=== PATIENT | female | born 1970 | race American Indian/Alaskan Native ===

== ENCOUNTER 2017-10-27 03:14 | Emergency (ER) | payer OTHER ==
[~2017-10-27] VITALS: Ht 160 cm; Wt 90.7 kg
--- OUTSIDE RECORDS SUMMARY | ~2017-10-27 | XMS | Encounter Summary ---
Demographics + + + | Address | [address] | | | [place] [address] | + + + | Home Phone | | + + + | Preferred Language | Unknown | + + + | Marital Status | Single | + + + | Shinto Affiliation | Unknown | + + + | Race | Unknown | + + + | Ethnic Group | Unknown | + + + Author + + + | Author | [facility] | | | and [place] | + + + | Organization | [facility] | | | and [place] | + + + | Address | Unknown | + + + | Phone | Unavailable | + + + Support + + +---------+ + | Name | Relationship | Address | Phone | + + +---------+ + | Leisa Forte | ECON | Unknown | | + + +---------+ + | Rebeca Forte | ECON | Unknown | | + + +---------+ + Care Team Providers + +------+ + | Care Package Handler Name | Role | Phone | + +------+ + | Ronel Jacobson PA-C | PCP | | + +------+ + Reason for Visit + + + | Reason | Comments | + + + | Allergies | | + + + | Immunotherapy | | + + + Evaluate & Treat (Urgent) + + + + + + + | Status | Reason | Specialty | Diagnoses / | Referred By | Referred To | | | | | Procedures | Contact | Contact | + + + + + + + | Authorized | Specialty | Otolaryngolog | Diagnoses | Luther, | Henok Luther | | | Services | y | | Henok E, | E, MD [address] | | | Required | | Non-seasonal | [address] | | | | | allergic | [address] | | | | | rhinitis due | [place], | | | | | to pollen | [place], [place] | [place] [address] | | | | | Allergic | [address] | Phone: | | | | | rhinitis due | Phone: | [phone] | | | | | to dust | [phone] | Fax: | | | | | Mild | Fax: | [phone] | | | | | intermittent | [phone] | | | | | | asthma, | | | | | | | uncomplicate | | | | | | | d | | | | | | | Procedures | | | | | | | [place] | | | | | | | IMMUNOTHERAP | | | | | | | Y, ONE | | | | | | | INJECTION | | | | | | | [place] PROFES | | | | | | | SVC,IMMUNOTH | | | | | | | ER,SINGLE/MU | | | | | | | LT AGS | | | + + + + + + + Encounter Details +--------+ + + + + | Date | Type | Department | Care Team | Description | +--------+ + + + + | 09/17/ | Clinical | [facility] [place] | Henok Luther MD | Mild intermittent | | 2018 | Support | [address]ARYNGOLOGY [address] | [address] | asthma, | | | | [address] | [address] [place], | uncomplicated | | | | [place], [place] | [place] [address] | (Primary Dx); | | | | [address] | [phone] | Non-seasonal | | | | [phone] | | allergic rhinitis | | | | | | due to pollen; | | | | | | Allergic rhinitis | | | | | | due to dust | +--------+ + + + + Social History + + + +--------+ + | Tobacco Use | Types | Packs/Day | Years | Date | | | | | Used | | + + + +--------+ + | Current Every Day | Cigarettes | 0.25 | 20 | Quit: 09/23/2012 | | Smoker | | | | | + + + +--------+ + + +---+---+---+ | Smokeless Tobacco: | | | | | Never Used | | | | + +---+---+---+ + + +---------+ + | Alcohol Use | Drinks/We | oz/Week | Comments | | | ek | | | + + +---------+ + | Yes | 1 | 0.6 | 1 a month | | | Standard | | | | | drinks or | | | | | | | | | | equivalen | | | | | t | | | + + +---------+ + + + + | Sex Assigned at | Date Recorded | | | | + + + | Not on file | | + + + as of this encounter Progress Notes Modesta Benitez RN - 09/17/2017 6325 PDTPatient presents with epi-pen & inhaler. No active wheezing or cough associated with asthma today. Denies delayed reaction from previou s allergy injection. No fever or allergy related rash. No recent heavy exposure to allergens . No plans for strenuous exercise immediately before or after injection today.in this encoun ter Plan of Treatment +--------+---------+ + + + | Date | Type | Specialty | Care Team | Description | +--------+---------+ + + + | 05/11/ | Office | Nephrology | Mariana Cortez, | | | 2018 | Visit | | MD [address] | | | | | | [address] [place] | | | | | | [place] [address] | | | | | | [phone] | | | | | | | | +--------+---------+ + + + as of this encounter Visit Diagnoses + + | Diagnosis | + + | Mild intermittent asthma, uncomplicated - Primary | + + | Unspecified asthma | + + | Non-seasonal allergic rhinitis due to pollen | + + | Allergic rhinitis due to dust | + + | Allergic rhinitis due to other allergen | + +"
--- OUTSIDE RECORDS SUMMARY | ~2017-10-27 | XMS | Encounter Summary ---
Demographics + + + | Address | [address] | | | [place] [address] | + + + | Home Phone | | + + + | Preferred Language | Unknown | + + + | Marital Status | Single | + + + | Zoroastrianism Affiliation | Unknown | + + + | Race | Unknown | + + + | Ethnic Group | Unknown | + + + Author + + + | Author | [facility] | | | and [place] | + + + | Organization | [facility] | | | and [place] | [...] Team Providers + +------+ + | Care Mortgage Loan Underwriter Name | Role | Phone | + +------+ + | Rnoel Jacobson PA-C | PCP | | + +------+ + Reason for Referral Evaluate & Treat (Urgent) + + + [...] Services | y | | Henok E, MD | E, MD [address] | | | Required | | Non-seasonal | [address] | | | | | allergic | [address] | | | | | rhinitis due | [place], | | | | | to pollen | [place], [place] | [place] [address] | | | | | Allergic | [address] | Phone: | | | | | rhinitis due | Phone: | [phone] | | | | | to dust | [phone] | Fax: | | | | | Mild | Fax: | [phone] | | | | | intermittent | [phone] | | | | | | asthma, | | | | | | | uncomplicate | | | | | | | d | | | | | | | Procedures | | | | | | | [place] | | | | | | | IMMUNOTHERAP | | | | | | | Y, ONE | | | | | | | INJECTION | | | | | | | [place] PROFES | | | | | | | SVC,IMMUNOTH | | | | | | | ER,SINGLE/MU | | | | | | | LT AGS | | | + + + + + + + Encounter Details +--------+ + + + + | Date | Type | Department | Care Team | Description | +--------+ + + + + | 08/31/ | Orders Only | [facility] [place] | Henok Luther MD | Non-seasonal | | 2017 | | [address]ARYNGOLOGY [address] | [address] | allergic rhinitis | | | | [address] | [address] [place], | due to pollen | | | | [place], [place] | [place] [address] | (Primary Dx); | | | | [address] | [phone] | Allergic rhinitis | | | | [phone] | | due to dust; Mild | [...] + + + as of this encounter Plan of Treatment +--------+---------+ + + + | Date | Type | Specialty | Care Team | Description | +--------+---------+ + + + | 05/11/ | Office | Nephrology | Mariana Cortez, | | | 2018 | Visit | | [address] | | | | | | [address] [place] | | | | | | [place] [address] | | | | | | [phone] | | | | | | | | +--------+---------+ + + + + +--------+ + + | Name | Priori | Associated Diagnoses | Order Schedule | | | ty | | | + +--------+ + + | * [facility] Otolaryngology - AMB | Routin | Non-seasonal | Ordered: 08/31/2017 | | Referral | e | allergic rhinitis | | | | | due to pollen | | | | | Allergic rhinitis | | | | | due to dust Mild | | | | | intermittent asthma, | | | | | uncomplicated | | + +--------+ + + as of this encounter Visit Diagnoses + + | Diagnosis | + + | Non-seasonal allergic rhinitis due to pollen - Primary | + + | Allergic rhinitis due to dust | + + | Allergic rhinitis due to other allergen | + + | Mild intermittent asthma, uncomplicated | + + | Unspecified asthma | + +"
--- OUTSIDE RECORDS SUMMARY | ~2017-10-27 | XMS | Encounter Summary ---
Demographics + + + | Address | [address] | | | [place] [address] | + + + | Home Phone | | + + + | Preferred Language | Unknown | + + + | Marital Status | Single | + + + | Scientology Affiliation | Unknown | + + + | Race | Unknown | + + + | Ethnic Group | Unknown | + + + Author + + + | Author | [facility] | | | and [place] | + + + | Organization | [facility] | | | and [place] | [...] Team Providers + +------+ + | Care Caddy/Caddie Supervisor Name | Role | Phone | [...] | +--------+ + + + + | 08/06/ | Clinical | [facility] | Henok Luther MD | Non-seasonal | | 2017 | Support | [address]ARYNGOLOGY [address] | [address] | allergic rhinitis | | | | [address] | [address] [place], | due to pollen | | | | [place], [place] | [place] [address] | (Primary Dx); | | | | [address] | [phone] | Allergic rhinitis | | | | [phone] | | due to dust mite; | | | | | | Extrinsic asthma | | | | | | [...] + as of this encounter Progress Notes Narda Lay, RN - 08/06/2017 1545 PDTPatient presents with epi-pen. Denies delayed gigi ction from previous allergy injection. No fever or allergy related rash. No recent heavy exp osure to allergens. No plans for strenuous exercise before or after injection today. in this encounter Plan of Treatment +--------+---------+ + + + | Date | Type | Specialty | Care Team | Description | +--------+---------+ + + + | 05/11/ | Office | Nephrology | Mariana Cortez, | | | 2018 | Visit | | MD [address] | | | | | | [address] [place] | | | | | | [place] [address] | | | | | | [phone] | | | | | | | | +--------+---------+ + + + as of this encounter Visit Diagnoses + + | Diagnosis | + + | Non-seasonal allergic rhinitis due to pollen - Primary | + + | Allergic rhinitis due to dust mite | + + | Extrinsic asthma without complication, unspecified asthma severity, unspecified whether | | persistent | + +"
--- OUTSIDE RECORDS SUMMARY | ~2017-10-27 | XMS | Encounter Summary ---
Demographics + + + | Address | [address] | | | [place] [address] | + + + | Home Phone | | + + + | Preferred Language | Unknown | + + + | Marital Status | Single | + + + | Advent Affiliation | Unknown | + + + | Race | Unknown | + + + | Ethnic Group | Unknown | + + + Author + + + | Author | [facility] | | | and [place] | + + + | Organization | [facility] | | | and [place] | [...] Providers + +------+ + | Care Senior Visual Designer Name | Role | Phone | + [...] to pollen | [place], [place] | [place] [address] | | | | | Allergic | [address] | Phone: | | | | | rhinitis due | Phone: | [phone] | | | | | to dust | [phone] | Fax: | | | | | Mild | Fax: | [phone] | | | | | intermittent | [phone] | | | | | | asthma, | | | | | | | uncomplicate | | | | | | | d | | | | | | | Procedures | | | | | | | [place] | | | | | | | IMMUNOTHERAP | | | | | | | Y, ONE | | | | | | | INJECTION | | | | | | | [place] PROFES | | | | | | [...] due to pollen | | | | [place], [place] | [place] [address] | (Primary Dx); | | | | [address] | [phone] | Allergic rhinitis | | | | [phone] | | due to dust; Mild | [...] | | | | | [place] [address] | | | | | | [phone] | | | | | | | | +--------+---------+ + + + + +--------+ + + | Name | Priori | Associated Diagnoses | Order Schedule | | | ty | | | + +--------+ + + | * [facility] Otolaryngology - AMB | Routin | Non-seasonal [...]
--- OUTSIDE RECORDS SUMMARY | ~2017-10-27 | XMS | Encounter Summary ---
Demographics + + + | Address | [address] | | | [place] [address] | + + + | Home Phone | | + + + | Preferred Language | Unknown | + + + | Marital Status | Single | + + + | Congregational Affiliation | Unknown | + + + | Race | Unknown | + + + | Ethnic Group | Unknown | + + + Author + + + | Author | [facility] | | | and [place] | + + + | Organization | [facility] | | | and [place] [...] Team Providers + +------+ + | Care Bumboater Name | Role | Phone | + [...] to pollen | [place], [place] | [place] [address] | | | | | Allergic | [address] | Phone: | | | | | rhinitis due | Phone: | [phone] | | | | | to dust | [phone] | Fax: | | | | | Mild | Fax: | [phone] | | | | | intermittent | [phone] | | | | | | asthma, | | | | | | | uncomplicate | | | | | | | d | | | | | | | Procedures | | | | | | | [place] | | | | | | | IMMUNOTHERAP | | | | | | | Y, ONE | | | | | | | INJECTION | | | | | | | [place] PROFES | | | | | | [...] + | 09/10/ | Clinical | [facility] [place] | Henok Luther MD | Mild intermittent | | 2018 | Support | OTOLARYNGOLOGY [address] | [address] | asthma, | | | | [address] | [address] [place], | uncomplicated | | | | [place], [place] | [place] [address] | (Primary Dx); | | | | [address] | [phone] | Non-seasonal | | | | [phone] | | allergic rhinitis | | | [...] Progress Notes Modesta Benitez RN - 09/10/2017 6695 PDTPatient presents with epi-pen & inhaler. No [...] | | | | | | [place] [address] | | | | | | [phone] | | | | | | | [...]
--- OUTSIDE RECORDS SUMMARY | ~2017-10-27 | XMS | Encounter Summary ---
Demographics + + + | Address | [address] | | | [place] [address] | + + + | Home Phone | | + + + | Preferred Language | Unknown | + + + | Marital Status | Single | + + + | Roman Catholic Affiliation | Unknown | + + + | Race | Unknown | + + + | Ethnic Group | Unknown | + + + Author + + + | Author | [facility] | | | and [place] | + + + | Organization | [facility] | | | and [place] [...] Team Providers + +------+ + | Care Rig Site Engineer Name | Role | Phone | [...] to pollen | [place], [place] | [place] [address] | | | | | Allergic | [address] | Phone: | | | | | rhinitis due | Phone: | [phone] | | | | | to dust | [phone] | Fax: | | | | | Mild | Fax: | [phone] | | | | | intermittent | [phone] | | | | | | asthma, [...] [place], | uncomplicated | | | | [place], [place] | [place] [address] | (Primary Dx); | | | | [address] | [phone] | Non-seasonal | | | | [phone] | | allergic rhinitis | | | [...] Progress Notes Modesta Benitez RN - 09/10/2017 1465 PDTPatient presents with epi-pen & inhaler. No [...] | | | | | | [place] [address] | | | | | | [phone] | | | | | | | [...]
--- OUTSIDE RECORDS SUMMARY | ~2017-10-27 | XMS | Encounter Summary ---
Demographics + + + | Address | [address] | | | [place] [address] | + + + | Home Phone [...] Organization | [facility] | | | and [place]ana [...] Providers + +------+ + | Care Director Acute Name | Role | Phone | + [...] to pollen | [place], [place] | [place] [address] | | | | | Allergic | [address] | Phone: | | | | | rhinitis due | Phone: | [phone] | | | | | to dust | [phone] | Fax: | | | | | Mild | Fax: | [phone] | | | | | intermittent | [phone] | | | | | | asthma, [...] + | 10/01/ | Clinical | [facility] [place] | Henok Luther MD | Mild intermittent | | 2018 | Support | [address]OLARYNGOLOGY [address] | [address] | asthma, | | | | [address] | [address] [place], | uncomplicated | | | | [place], [place] | [place] [address] | (Primary Dx); | | | | [address] | [phone] | Non-seasonal | | | | [phone] | | allergic rhinitis | | | [...] encounter Progress Notes Narda Lay, RN - 10/01/2017 1545 PDTPatient presents with epi-pen & inhaler. No activ e wheezing or cough associated with asthma today. Denies delayed reaction from previous hussain rgy injection. No fever or allergy related rash. No recent heavy exposure to allergens. No p lans for strenuous exercise immediately before or after injection today. in this encounter Plan of Treatment +--------+---------+ + + + | Date | Type | Specialty | Care Team | Description | +--------+---------+ + + + | 05/11/ | Office | Nephrology | Mariana Cortez, | | | 2018 | Visit | | [address] | | | | | | [address] [place] | | | | | | [place] [address] | | | | | | [phone] | | | | | | | [...] (cat) (dog) hair and dander | + +"
--- OUTSIDE RECORDS SUMMARY | ~2017-10-27 | XMS | Clinical Summary ---
Demographics + + + | Address | [address] | | | [place] [address] | + + + | Home Phone [...] + + + | Author | [facility] | | | and [place] | + + + | Organization | [facility] | | | [...] Team Providers + +------+ + | Care Kiln Head House Operator Name | Role | Phone | + +------+ + | Ronel Jacobson PA-C | PP | | + +------+ + Allergies + + + + + + | Active Allergy | Reactions | Severity | Noted | Comments | | | | | Date | | + + + + + + | Furosemide | Swelling | Medium | 12/24/20 | | | | | | 13 | | + + + + + + Current Medications + + + +---------+------+------+-------+ | Prescription | Sig. | Disp. | Refills | Star | End | Statu | | | | | | t | Date | s | | | | | | Date | | | + + + +---------+------+------+-------+ | TechLite Lancets | | | | 07/3 | | Activ | | MISC | | | | 1/20 | | e | | | | | | 13 | | | + + + +---------+------+------+-------+ | CROW CONTOUR TEST | 4 strips Daily. | | | 07/3 | | Activ | | strip | | | | 1/20 | | e | | | | | | 13 | | | + + + +---------+------+------+-------+ | B-D UF III MINI | | | | 07/3 | | Activ | | PEN NEEDLES 31G X 5 | | | | 1/20 | | e | | MM MISC | | | | 13 | | | + + + +---------+------+------+-------+ | Blood Glucose | by Does not apply | | | | | Activ | | Monitoring Suppl | route. | | | | | e | | (CONTOUR BLOOD | | | | | | | | GLUCOSE SYSTEM) JOANNA | | | | | | | + + + +---------+------+------+-------+ | Alcohol Swabs 70 % | by Does not apply | | | | | Activ | | PADS | route. | | | | | e | + + + +---------+------+------+-------+ | cyanocobalamin | Take 1,000 mcg by | | | | | Activ | | (VITAMIN B-12) 500 | mouth Daily. | | | | | e | | mcg tablet | | | | | | | + + + +---------+------+------+-------+ | folic acid 1 mg | Take 1 mg by mouth | | | | | Activ | | tablet | Daily. | | | | | e | + + + +---------+------+------+-------+ | rosuvastatin | Take 20 mg by mouth | | | | | Activ | | (CRESTOR) 20 mg | nightly. | | | | | e | | tablet | | | | | | | + + + +---------+------+------+-------+ | glyBURIDE | Take 10 mg by mouth | | | 08/1 | | Activ | | (DIABETA) 5 mg | daily (with | | | 10/29 | | e | | tablet | breakfast). | | | 16 | | | + + + +---------+------+------+-------+ | albuterol 90 | Inhale 2 puffs into | | | 08/1 | | Activ | | mcg/puff inhaler | the lungs every 6 | | | 10/29 | | e | | | hours as needed. | | | 16 | | | + + + +---------+------+------+-------+ | fluticasone | 1 spray by Nasal | | | 09/09 | | Activ | | (FLONASE) 50 | route Twice daily | | | 10/29 | | e | | mcg/nasal spray | as needed. | | | 16 | | | + + + +---------+------+------+-------+ | cetirizine | Take 10 mg by mouth | | | | | Activ | | (ZYRTEC) 10 mg | Daily as needed for | | | | | e | | tablet | Allergies. | | | | | | + + + +---------+------+------+-------+ | sodium bicarbonate | Take 1 tablet by | 90 | 3 | 04/0 | | Activ | | 650 mg tablet | mouth Daily. | tablet | | 05/29 | | e | | | | | | 17 | | | + + + +---------+------+------+-------+ | EPIPEN 2-IGNACIO 0.3 | Inject 0.3 mLs into | 2 each | 1 | 04/0 | | Activ | | MG/0.3ML injection | the muscle as needed | | | 6/20 | | e | | | for Anaphylaxis. | | | 17 | | | | | M[employer] authorized | | | | | | | | generic to EpiPen | | | | | | | | permitted. | | | | | | + + + +---------+------+------+-------+ | cholecalciferol | Take 2,000 Units by | | | | | Activ | | (VITAMIN D-3) 2000 | mouth Daily. | | | | | e | | units TABS | | | | | | | + + + +---------+------+------+-------+ | amLODIPine | Take 10 mg by mouth | | | | | Activ | | (NORVASC) 10 MG | Daily. | | | | | e | | tablet | | | | | | | + + + +---------+------+------+-------+ | | Inhale 1 puff into | | | | | Activ | | fluticasone-salmeter | the lungs 2 times | | | | | e | | ol (ADVAIR HFA) | daily. | | | | | | | 230-21 MCG/ACT | | | | | | | | inhaler | | | | | | | + + + +---------+------+------+-------+ | acetaminophen | Take 500 mg by mouth | | | | | Activ | | (TYLENOL) 500 mg | every 6 hours as | | | | | e | | tablet | needed for Pain. | | | | | | + + + +---------+------+------+-------+ | insulin glargine | Inject 2-4 Units | | | | | Activ | | (LANTUS SOLOSTAR) | under the skin | | | | | e | | 100 units/mL | nightly. Per sliding | | | | | | | injection (pen) | scale | | | | | | + + + +---------+------+------+-------+ | losartan (COZAAR) | Take 25 mg by mouth | | | | | Activ | | 25 mg tablet | Daily. | | | | | e | + + + +---------+------+------+-------+ | bumetanide (BUMEX) | Take 2 tablets by | 120 | 11 | 04/0 | | Activ | | 0.5 mg tablet | mouth 2 times daily. | tablet | | 04/28 | | e | | | | | | 18 | | | + + + +---------+------+------+-------+ Active Problems + + + | Problem | Noted Date | + + + | Smoker - Daily | 02/23/2017 | + + + | Obesity (BMI 35.0-39.9 without comorbidity) | 02/23/2017 | + + + | Deviated nasal septum | 11/12/2016 | + + + | Hypertrophy of nasal turbinates | 11/12/2016 | + + + | Type 2 diabetes mellitus with stage 3 chronic kidney disease, | 10/13/2012 | | without long-term current use of insulin (HCC) | | + + + | Hypertension | 10/13/2012 | + + + | Proteinuria | 10/13/2012 | + + + | CKD (chronic kidney disease) stage 3, GFR 30-59 ml/min ([facility]) | 10/13/2012 | + + + + + | Overview: Renal ultrasound 09/16/12: right kidney 13 cm, left | | kidney 12.4 cm. Proteinuric. | + + + +---+ | Migraine headache | | + +---+ | Renal tubular acidosis, type 4 | | + +---+ Encounters +--------+ + + + + | Date | Type | Specialty | Care Team | Description | +--------+ + + + + | 10/01/ | Clinical | | Henok Luther MD | Mild intermittent | | 2017 | Support | | | asthma, | | | | | | uncomplicated | | | | | | (Primary Dx); | | | [...] dander | +--------+ + + + + | 09/17/ | Clinical | | Henok Luther MD | Mild intermittent | | 2017 | Support | | | asthma, | | | | | | uncomplicated | | | | | | (Primary Dx); | | | | | | Non-seasonal | | | | | | allergic rhinitis | | | | | | due to pollen; | | | | | | Allergic rhinitis | | | | | | due to dust | +--------+ + + + + | 09/10/ | Clinical | | Henok Luther MD | Mild intermittent | | 2018 | Support | | | asthma, | | | | | | uncomplicated | | | | | | (Primary Dx); | | | | | | Non-seasonal | | | | | | allergic rhinitis | | | | | | due to pollen; | | | | | | Allergic rhinitis | | | | | | due to dust | +--------+ + + + + | 09/03/ | Clinical | | Henok Luther MD | Non-seasonal | | 2017 | Support | | | allergic rhinitis | | | | | | due to pollen | | | | | | (Primary Dx); | | | | | | Allergic rhinitis | | | | | | due to dust; Mild | | | | | | intermittent asthma, | | | | | | uncomplicated | +--------+ + + + + | 08/31/ | Orders Only | | Henok Luther MD | Non-seasonal | | 2018 | | | | allergic rhinitis | | | | | | due to pollen | | | | | | (Primary Dx); | | | | | | Allergic rhinitis | | | | | | due to dust; Mild | | | | | | intermittent asthma, | | | | | | uncomplicated | +--------+ + + + + | 08/06/ | Clinical | | Henok Luther MD | Non-seasonal | | 2018 | Support | | | allergic rhinitis | | | | | | due to pollen | | | | | | (Primary Dx); | | | [...] persistent | +--------+ + + + + from Last 3 Months Immunizations + + + + | Name | Dates Previously Given | Next Due | + + + + | TDAP, (ADOL/ADULT) | 09/08/2012 | 09/06/2022 | + + + + Family History + + +------+ + | Medical History | Relation | Name | Comments | + + +------+ + | Hypertension | Father | | | + + +------+ + | Stomach cancer | Mother | | | + + +------+ + | Diabetes | Other | | | + + +------+ + + +------+ + + | Relation | Name | Status | Comments | + +------+ + + | Father | | Alive | | + +------+ + + | Mother | | | | + +------+ + + | Other | | | | + +------+ + + Social History + + + [...] on file | | + + + Last Filed Vital Signs + + + + | Vital Sign | Reading | Time Taken | + + + + | Blood Pressure | 152/82 | 05/12/2017 1142 PDT | + + + + | Pulse | 101 | 05/12/2017 1142 PDT | + + + + | Temperature | 36.6 C (97.9 F) | 02/24/2017 1051 PST | + + + + | Respiratory Rate | 16 | 03/12/2017 1510 PST | + + + + | Oxygen Saturation | 98% | 05/12/20171141 PDT | + + + + | Inhaled Oxygen | - | - | | Concentration | | | + + + + | Weight | 91.1 kg (200 lb 13.4 | 05/12/20171141 PDT | | | oz) | | + + + + | Height | 160 cm (5' 3") | 05/12/20171141 PDT | + + + + | Body Mass Index | 35.58 | 05/12/2017 1142 PDT | + + + + Plan of Treatment +--------+---------+ + + + | Date | Type | Specialty | Care Team | Description | +--------+---------+ + + + | 05/11/ | Office | | Mariana Cortez, | | | 2019 | Visit | | [address] | | | | | | [address] | | | | | | [place] [address] | | | | | | [phone] | | | | | | | | +--------+---------+ + + + + + + + + | Health Maintenance | Due Date | Last Done | Comments | + + + + + | Diabetic Eye Exam | | | | | (Bi-Annually) | 9 | | | + + + + + | Diabetic Foot Exam | | | | | | 9 | | | + + + + + | Vaccine: | | | | | Pneumococcal 19-64 | 0 | | | | (PPSV23 only) Medium | | | | | Risk (1 of 1 - | | | | | PPSV23) | | | | + + + + + | Cervical Cancer | | | | | Screening (Pap) | 1 | | | + + + + + | Hemoglobin A1c Q3 | | 01/24/2017, 09/10/2012 | | | Months | 8 | | | + + + + + | Vaccine: Influenza | | | | | (#1) | 8 | | | + + + + + | Vaccine: | | 09/08/2012 | | | Dtap/Tdap/Td (2 - | 3 | | | | Td) | | | | + + + + + Results Not on filefrom Last 3 Months Insurance + +--------+ +--------+ +---------+ | Payer | Benefi | Subscriber | Type | Phone | Address | | | t Plan | ID | | | | | | / | | | | | | | Group | | | | | + +--------+ +--------+ +---------+ | [facility] | PHP | [id number] | PPO | [phone] | | PLAN | PERSON | | | [id number] | | | | [place] | | | | | | | OPEN | | | | | | | OPTION | | | | | + +--------+ +--------+ +---------+ | [facility] | IHS | [id number] | Indemn | | | | SERVICE | YELLOW | | ity | | | | | [place] | | | | | + +--------+ +--------+ +---------+ + +--------+ +--------+ + + | Guarantor Name | Accoun | Relation to | Date | Phone | Billing Address | | | t Type | Patient | of | | | | | | | | | | + +--------+ +--------+ + + | MARYAM FORTE | Person | Self | [birth year] | Work: | [address] | | [place] | al/Brendan | | 1970 | [phone] | [place] [address] | | | [place]ian | | | 1926 Home: | | | | | | | | | | | | | | [phone] | | | | | | | [phone] | | + +--------+ +--------+ + +
--- OUTSIDE RECORDS SUMMARY | ~2017-10-27 | XMS | Clinical Summary ---
Demographics + + + | Address | [address] | | | [place] [address] | + + + | Home Phone | | + + + | Preferred Language | Unknown | + + + | Marital Status | Single | + + + | Bahai Affiliation | Unknown | + + + | Race | Unknown | + + + | Ethnic Group | Unknown | + + + Author + + + | Author | [facility] | + + + | Organization | [facility] | + + + | Address | Unknown | + + + | Phone | Unavailable | + + + Support + + +---------+ + | Name | Relationship | Address | Phone | + + +---------+ + | Rebeca Forte | ECON | Unknown | | + + +---------+ + Care Team Providers + +------+ + | Care Medical Historian Name | Role | Phone | + +------+ + | [facility] | PP | | + +------+ + Allergies No Known Allergies Current Medications + + +-------+---------+------+------+-------+ | Prescription | Sig. | Disp. | Refills | Star | End | Statu | | | | | | t | Date | s | | | | | | Date | | | + + +-------+---------+------+------+-------+ | sitaGLIPtin | Take 50 mg by mouth | | | | | Activ | | (JANUVIA) 50 MG | 2 (two) times daily. | | | | | e | | tabletIndications: | Indications: Type 2 | | | | | | | Type 2 Diabetes | Diabetes | | | | | | | Mellitus | | | | | | | + + +-------+---------+------+------+-------+ | simvastatin | Take 10 mg by mouth. | | | | | Activ | | (ZOCOR) 10 MG tablet | | | | | | e | + + +-------+---------+------+------+-------+ | furosemide (LASIX) | Take 40 mg by mouth | | | | | Activ | | 20 MG tablet | daily. | | | | | e | + + +-------+---------+------+------+-------+ | Cholecalciferol | Take 5,000 Units by | | | | | Activ | | 5000 UNITS capsule | mouth daily. | | | | | e | + + +-------+---------+------+------+-------+ | lisinopril | Take 60 mg by mouth | | | | | Activ | | (PRINIVIL,ZESTRIL) | daily. Indications: | | | | | e | | 20 MG | High Blood Pressure | | | | | | | tabletIndications: | | | | | | | | Hypertension | | | | | | | + + +-------+---------+------+------+-------+ | metoprolol | Take 25 mg by mouth | | | | | Activ | | (TOPROL-XL) 25 MG 24 | daily. | | | | | e | | hr tablet | | | | | | | + + +-------+---------+------+------+-------+ | glipiZIDE | Take 5 mg by mouth | | | | | Activ | | (GLUCOTROL) 5 MG 24 | daily. Indications: | | | | | e | | hr | Type 2 Diabetes | | | | | | | tabletIndications: | | | | | | | | Type 2 Diabetes | | | | | | | | Mellitus | | | | | | | + + +-------+---------+------+------+-------+ Active Problems + + + | Problem | Noted Date | + + + | DM (diabetes mellitus) | 11/16/2012 | + + + | HTN (hypertension) | 11/16/2012 | + + + Resolved Problems + + + + | Problem | Noted | Resolved | | | Date | Date | + + + + | Shortness of breath | 11/17/19 | | | | 13 | 3 | + + + + Family History + + +------+ + | Medical History | Relation | Name | Comments | + + +------+ + | Cancer | Cousin | | | + + +------+ + | Alcohol abuse | Father | | | + + +------+ + | Coronary art dis | Father | | | + + +------+ + | Diabetes type II | Father | | | + + +------+ + | Heart disease | Father | | | + + +------+ + | High cholesterol | Father | | | + + +------+ + | Hypertension | Father | | | + + +------+ + | Cancer | Maternal | | | | | Grandmoth | | | | | er | | | + + +------+ + | Cancer | Mother | | | + + +------+ + | Diabetes type II | Mother | | | + + +------+ + | Early | Mother | | | + + +------+ + | Heart disease | Mother | | | + + +------+ + | Diabetes type II | Paternal | | | | | Grandmoth | | | | | er | | | + + +------+ + | Asthma | Sister | | | + + +------+ + | Diabetes type II | Sister | | | + + +------+ + + +------+--------+ + | Relation | Name | Status | Comments | + +------+--------+ + | Cousin | | | | + +------+--------+ + | Father | | | | + +------+--------+ + | Maternal Grandmother | | | | + +------+--------+ + | Mother | | | | + +------+--------+ + | Paternal Grandmother | | | | + +------+--------+ + | Sister | | | | + +------+--------+ + Social History + +-------+ +--------+ + | Tobacco Use | Types | Packs/Day | Years | Date | | | | | Used | | + +-------+ +--------+ + | Former Smoker | | 0.5 | 20 | Quit: 09/09/2012 | + +-------+ +--------+ + + + +---------+ + | Alcohol Use | Drinks/We | oz/Week | Comments | | | ek | | | + + +---------+ + | Yes | 15 Cans | 9.0 | | | | of beer | | | + + +---------+ + + + + | Sex Assigned at | Date Recorded | | | | + + + | Not on file | | + + + Last Filed Vital Signs + + + + | Vital Sign | Reading | Time Taken | + + + + | Blood Pressure | 142/83 | 11/18/2012 11:05 AM PDT | + + + + | Pulse | 92 | 11/18/2012 11:05 AM PDT | + + + + | Temperature | 36.3 C (97.3 F) | 11/18/2012 11:05 AM PDT | + + + + | Respiratory Rate | 18 | 11/18/2012 11:05 AM PDT | + + + + | Oxygen Saturation | 98% | 11/18/2012 11:05 AM PDT | + + + + | Inhaled Oxygen | - | - | | Concentration | | | + + + + | Weight | 95.1 kg (209 lb 10.5 | 11/18/2012 3:16 AM PDT | | | oz) | | + + + + | Height | 160 cm (5' 3") | 11/16/2012 5:00 PM PDT | + + + + | Body Mass Index | 37.14 | 11/18/2012 3:16 AM PDT | + + + + Plan of Treatment Not on file Results Not on filefrom Last 3 Months Insurance + +--------+ +------+-------+---------+ | Payer | Benefi | Subscriber | Type | Phone | Address | | | t Plan | ID | | | | | | / | | | | | | | Group | | | | | + +--------+ +------+-------+---------+ | [employer] - | FIRST | | | | | | COVENTRY | HEALTH | 00 | | | | | | - | | | | | | | PACIFI | | | | | | | CSOURC | | | | | | | E | | | | | + +--------+ +------+-------+---------+ | /[facility] | YELLOW | [id number] | | | | | PLANS | [place] | | | | | + +--------+ +------+-------+---------+ + +--------+ +--------+ + + | Guarantor Name | Accoun | Relation to | Date | Phone | Billing Address | | | t Type | Patient | of | | | | | | | | | | + +--------+ +--------+ + + | MARYAM FORTE | Person | Self [birth year] | Home: | [address] | | | al/Fam | | 1971 | [phone] | [place] | | | [place] | | | [phone] | [address] | + +--------+ +--------+ + +
--- OUTSIDE RECORDS SUMMARY | ~2017-10-27 | XMS | Encounter Summary ---
Demographics + + + | Address | [address] | | | [place] [address] | + + + | Home Phone [...] | [facility] | | | and [place] [...] Team Providers + +------+ + | Care Web Knitter Name | Role | Phone | + [...] to pollen | [place], [place] | [place] [address] | | | | | Allergic | [address] | Phone: | | | | | rhinitis due | Phone: | [phone] | | | | | to dust | [phone] | Fax: | | | | | Mild | Fax: | [phone] | | | | | intermittent | [phone] | | | | | | asthma, [...] [place], | uncomplicated | | | | [place], [place] | [place] [address] | (Primary Dx); | | | | [address] | [phone] | Non-seasonal | | | | [phone] | | allergic rhinitis | | | [...] Progress Notes Modesta Benitez RN - 09/17/2017 7265 PDTPatient presents with epi-pen & inhaler. No [...] | | | | | [place] [address] | | | | | | [phone] | | | | | | | [...]
--- OUTSIDE RECORDS SUMMARY | ~2017-10-27 | XMS | Clinical Summary ---
Demographics + + + | Address | [address] | | | [place] [address] | + + + | Home Phone | | + + + | Preferred Language | Unknown | + + + | Marital Status | Single | + + + | Rastafari Affiliation | Unknown | + + + | Race | Unknown | + + + | Ethnic Group | Unknown | + + + Author + + + | Author | [facility] | + + + | Organization | [facility] | + + + | Address | Unknown | + + + | Phone | Unavailable | + + + Support + + +---------+ + | Name | Relationship | Address | Phone | + + +---------+ + | Rebeca Forte | ECON | Unknown | | + + +---------+ + Care Team Providers + +------+ + | Care Perianesthesia Nurse Name | Role | Phone | [...] | | | + +--------+ +------+-------+---------+ | /[facility] | YELLOW | [id number] | | | | | PLANS | [...] | [place] | | | [address] | [address] | + +--------+ +--------+ + +
--- OUTSIDE RECORDS SUMMARY | ~2017-10-27 | XMS | Encounter Summary ---
Demographics + + + | Address | [address] | | | [place] [address] | + + + | Home Phone [...] | Organization | [facility] | | | and [place] | [...] Team Providers + +------+ + | Care Cheesemaker Helper Name | Role | Phone | + [...] + + | 08/06/ | Clinical | [facility] | Henok Luther MD | Non-seasonal | | 2017 | Support | OTOLARYNGOLOGY [address] | [address] [place] | allergic rhinitis | | | | [address] | [address] [place], | due to pollen | | | | [place], [place] | [place] [address] | (Primary Dx); | | | | [address] | [phone] | Allergic rhinitis | | | | [phone] | | due to dust mite; | [...] | | | | | [place] [address] | | | | | | [phone] | | | | | | | [...]
--- OUTSIDE RECORDS SUMMARY | ~2017-10-27 | XMS | Encounter Summary ---
Demographics + + + | Address | [address] | | | [place] [address] | + + + | Home Phone [...] [facility] | | | and [place] [...] Providers + +------+ + | Care Senior Android Software Engineer Name | Role | Phone | [...] to pollen | [place], [place] | [place] [address] | | | | | Allergic | [address] | Phone: | | | | | rhinitis due | Phone: | [phone] | | | | | to dust | [phone] | Fax: | | | | | Mild | Fax: | [phone] | | | | | intermittent | [phone] | | | | | | asthma, [...] + + | 09/03/ | Clinical | [facility] | Henok Luther MD | Non-seasonal | | 2017 | Support | OTOLARYNGOLOGY [address] | [address] [facility] | allergic rhinitis | | | | [address] | [address] [place], | due to pollen | | | | [place], [place] | [place] [address] | (Primary Dx); | | | | [address] | [phone] | Allergic rhinitis | | | | [phone] | | due to dust; Mild | [...] Progress Notes Modesta Benitez RN - 09/03/2017 1545 PDTFormatting of this note may be different fr om the original. Patient presents with epi-pen & inhaler. No active wheezing or cough associated with asthma today. Denies delayed reaction from previous allergy injection. No fever or allergy related rash. No recent heavy exposure to allergens. No plans for strenuous exercise immediately be fore or after injection today. Mixed immunotherapy treatment vial for patient on 08/27/17. TREATMENT SET [facility] TREES, DUST, DANDER: 87 09/03/2017 Allergen Extract Amount/mL Dilution Lot # Expiration Date Treutlen Mix [place] 0.2 C [id number] 04/04/20 Sugar Maple Western [place] 0.2 C 459522 05/11/20 Emery 0.2 C 853819 08/08/20 Spring Birch White [place] Mark Anthony 0.2 C 434527 03/13/20 Juniper 0.2 C 564168 05/11/20 Black [place] 0.2 C 477699 02/01/20 Mites, Farinae 0.1 C 495557 09/30/18 Mites, Ptero. 0.1 C 515054 08/25/18 Cat Hair 0.1 C 982166 01/05/19 Dog Epi. Horse Epi Total Allergens : 1.5 ml. Saline: 1.0 ml. Total Volume: 2.5 ml. Mixed immunotherapy treatment vial for patient on 08/27/17. TREATMENT SET [place] Molds, Insects & Feathers: 88 09/03/2017 Allergen Extract Amount/ml Dilution Lot # Expiration Date Alternaria Aspergillus Cladosporium Penicillium Bipolaris Sorok. 0.1 C 925435 11/30/19 Pullulans 0.1 C 358398 02/01/20 Mucor 0.1 C [id number] 10/28/19 Phoma Rhodotorula 0.1 C 219913 11/30/19 Fusarium Paecilomyces Grain Smut 0.1 C 104782 02/01/20 Grass Smut 0.1 C 685703 02/01/20 Am. Cockroach 0.1 C 657017 11/03/19 Mixed Feathers 0.1 C 560625 02/01/20 Total Allergens: 0.8 mL Saline: 1.7 mL Total Volume: 2.5 mLin this encounter Plan of Treatment +--------+---------+ + + + | Date | Type | Specialty | Care Team | Description | +--------+---------+ + + + | 05/11/ | Office | Nephrology | Mariana Cortez, | | | 2018 | Visit | | MD [address] | | | | | | [address] [place] | | | | | | [place] [address] | | | | | | [phone] | | | | | | | [...]
--- OUTSIDE RECORDS SUMMARY | ~2017-10-27 | XMS | Encounter Summary ---
Demographics + + + | Address | [address] | | | [place] [address] | + + + | Home Phone [...] + | Organization | [facility] | | [...] Team Providers + +------+ + | Care Riveting Machine Operator Automatic Name | Role | Phone | + [...] to pollen | [place], [place] | [place] [address] | | | | | Allergic | [phone] | Phone: | | | | | rhinitis due | Phone: | [phone] | | | | | to dust | [phone] | Fax: | | | | | Mild | Fax: | [phone] | | | | | intermittent | [phone] | | | | | | asthma, [...] + + | 09/03/ | Clinical | [facility] | Henok Luther MD | Non-seasonal | | 2017 | Support | OTOLARYNGOLOGY [address] | [address] [facility] | allergic rhinitis | | | | [address] | [address] [place], | due to pollen | | | | [place], [place] | [place] [address] | (Primary Dx); | | | | [address] | [phone] | Allergic rhinitis | | | | [phone] | | due to dust; Mild | [...] vial for patient on 08/27/17. TREATMENT SET [facility] TREES, DUST, DANDER: 87 09/03/2017 Allergen Extract Amount/mL Dilution Lot # Expiration Date Kittson Mix Castleton 0.2 C [id number] 04/04/20 Sugar Maple [place] 0.2 C [id number] 05/11/20 Yates 0.2 C 933600 08/08/20 Spring Birch [place] Mark Anthony 0.2 C [id number] 03/13/20 Juniper 0.2 C 397590 05/11/20 Black [place] 0.2 C 978279 02/01/20 Mites, Farinae 0.1 C 298157 09/30/18 Mites, Ptero. 0.1 C [id number] 08/25/18 Cat Hair 0.1 C 997668 01/05/19 Dog Epi. Horse Epi Total Allergens : 1.5 ml. Saline: 1.0 ml. Total Volume: 2.5 ml. Mixed immunotherapy treatment vial for patient on 08/27/17. TREATMENT SET July Forte Molds, Insects & Feathers: 88 09/03/2017 Allergen Extract Amount/ml Dilution Lot # Expiration Date Alternaria Aspergillus Cladosporium Penicillium Bipolaris Sorok. 0.1 C [id number] 11/30/19 Pullulans 0.1 C [id number] 02/01/20 Mucor 0.1 C [id number] 10/28/19 Phoma Rhodotorula 0.1 C 952049 11/30/19 Fusarium Paecilomyces Grain Smut 0.1 C 488889 02/01/20 Grass Smut 0.1 C 126293 02/01/20 Am. Cockroach 0.1 C 153066 11/03/19 Mixed Feathers 0.1 C 934447 02/01/20 Total Allergens: 0.8 mL Saline: 1.7 [...] | | | | | [place] [address] | | | | | | [phone] | | | | | | | [...]
--- OUTSIDE RECORDS SUMMARY | ~2017-10-27 | XMS | Clinical Summary ---
Demographics + + + | Address | [address] | | | [place] [address] | + + + | Home Phone [...] + | Organization | [facility] | | | and [place] [...] Team Providers + +------+ + | Care Thread Grinder Name | Role | Phone | + [...] kidney disease) stage 3, GFR 30-59 ml/min ([facility]) | 10/13/2012 | + + + + [...] [place] | | | | | | [place] [address] | | | | | | [phone] | | | | | | | [...] +---------+ | [facility] | PHP | [phone] | PPO | [phone] | | PLAN | PERSON | | | [phone] | | | | [place] | | | | | | | OPEN | | | | | | | OPTION | | | | | + +--------+ +--------+ +---------+ | [facility] | IHS | [id number] | Indemn | | | | SERVICE [...] | 1970 | [phone] | [place] [address] | | | fabian | | | 1926 Home: | | | | | | | | | | | | | | [phone] | | | | | | [phone] | | + +--------+ +--------+ + +
--- OUTSIDE RECORDS SUMMARY | ~2017-10-27 | XMS | Encounter Summary ---
Demographics + + + | Address | [address] | | | [place] [address] | + + + | Home Phone [...] Organization | [facility] | | | and [place] [...] Providers + +------+ + | Care Hand Launderer Name | Role | Phone | + [...] to pollen | [place], [place] | [place] [address] | | | | | Allergic | [address] | Phone: | | | | | rhinitis due | Phone: | [phone] | | | | | to dust | [phone] | Fax: | | | | | Mild | Fax: | [phone] | | | | | intermittent | [phone] | | | | | | asthma, [...] [place], | uncomplicated | | | | [place], [place] | [place] [address] | (Primary Dx); | | | | [address] | [phone] | Non-seasonal | | | | [phone] | | allergic rhinitis | | | [...] 2018 | Visit | | [address] | | | | | | [address] [place] | | | | | | [place] [address] | | | | | | [phone] | | | | | | | [...]
[~2017-10-27 03:14] MED LIST: AMLODIPINE BESYL5 MG PO; BUMETANIDE0.5 MG PO; FOLIC ACID1 MG PO; FUROSEMIDE20 MG PO; GLIPIZIDE XL5 MG PO; JANUVIA50 MG PO; LANTUS100 UNITS/ SUB-Q; LISINOPRIL20 MG PO; METOPROLOL SUCC25 MG PO; NOVOLOG100 UNIT/1 SUB-Q; VITAMIN D35000 UNI1 PO; ZOCOR10 MG PO
[2017-10-27] MEDS ORDERED: GLYBURIDE5 MG PO (03:34)
[2017-10-27] MEDS ORDERED: ROSUVASTATIN CA20 MG PO (03:34)
[2017-10-27] MEDS ORDERED: BENZONATATE200 MG PO (03:35)
[2017-10-27] MEDS ORDERED: OMEPRAZOLE20 MG PO (06:03)
== END 2017-10-27 06:10 | disposition home or self-care (01) ==
LOC: ED 03:14
DX: K30 Functional dyspepsia (principal); I12.9 Hypertensive chronic kidney disease with stage 1 through stage 4 chronic kidney disease, or unspecified chronic kidney disease; E11.22 Type 2 diabetes mellitus with diabetic chronic kidney disease; N18.3 Chronic kidney disease, stage 3 (moderate); F17.200 Nicotine dependence, unspecified, uncomplicated; Z88.0 Allergy status to penicillin; Z79.4 Long term (current) use of insulin; Z79.899 Other long term (current) drug therapy
CPT/HCPCS: 76705; 80053; 81001; 83690; 84703; 85025; 96374; 96375; 99284; J1170; J2405; J7030

== ENCOUNTER 2018-03-13 16:20 | Inpatient (IN) | payer BC, OTHER ==
[~2018-03-13] VITALS: Ht 160 cm; Wt 98.9 kg
[~2018-03-13 16:20] MED LIST changes: +BENZONATATE200 MG PO; +GLYBURIDE5 MG PO; +OMEPRAZOLE20 MG PO; +ROSUVASTATIN CA20 MG PO; +VITAMIN D32000 UNI1 PO; -VITAMIN D35000 UNI1 PO
[2018-03-13] MEDS ORDERED: ZYRTEC10 MG PO (16:38)
[2018-03-13] MEDS ORDERED: LOSARTAN POTASS25 MG PO (16:39)
--- NOTE | 2018-03-13 19:25 | NUR ---
PATIENT ARRIVED TO THE ROOM VIA STRETCHER. ABLE TO STAND AND TRANSFER TO BED INDEPENDENTLY. PATIENT DENIES FEELING SOB WITH THIS ACTIVITY. TELE PLACED PER ORDER, HR ELEVATED IN LOW 100'S. VS WNL. FAMILY IN ROOM.
--- NOTE | 2018-03-13 20:00 | NUR ---
SPOKE WITH DR. ORO. ORDERS FOR 1 UNIT PRBC CONFIRMED, LAB CALLED. ORDERS FOR FLUIDS RECEIVED VERBALLY AND VERIFIED VIA REPEAT BACK.
--- NOTE | 2018-03-13 20:22 | NUR ---
LAB IN ROOM TO DRAW BLOOD CULTURES AND LACTIC
--- NOTE | 2018-03-13 20:29 | NUR ---
PATIENT IN ROOM WITH FAMILY EATING SOME FOOD BROUGHT TO HER BY THEM. PATIENT DENIES FEELING OSB WHILE SITTING UP. SCHEDULED MEDS PROVIDED WITH VERBAL EDUCATION, PATIENT AND FAMILY VERBILIZED UNDERSTANDING. LR @ 75 STARTED. DISCUSSED NEED FOR URINE SAMPLE WITH PATIENT AND PROVIDED SUPPLIES. PATIENT VOIDED RECENTLY AND DENIES NEED AT THIS TIME.
--- NOTE | 2018-03-13 21:30 | NUR ---
BLOOD PRODUCTS RECEIVED. VERIFIED WITH SECOND RN ISIAH. PRE VITALS ARE WNL. WITH PATIENT FOR FIRST 15MINS OF INFUSION. NO REACTION NOTICED. VS STABLE. DISCUSSED SIGNS OF REACTION WITH PATIENT AND SHE AGREES TO NOTIFY STAFF. FAMILY IN ROOM.
--- NOTE | 2018-03-13 22:43 | NUR ---
PATIENT REQUEST MORE ICE WATER, WHICH WAS PROVIDED. PATIENT RESTING IN BED. IV FLUIDS AND BLOOD PRODUCTS INFUSING PER ORDER. PATIENT DENIES FEELING FEVERISH OR CHILLS, ITCHING, OR SOB. DENIES NEED TO VOID. CALL LIGHT IN REACH.
--- NOTE | 2018-03-13 23:30 | NUR ---
PATIENT SLEEPING SOUNDLY. RR 20. O2 SAT 94% ON ROOM AIR. BLOOD PRODUCTS INFUSING PER ORDER, SITE WNL.
--- NOTE | 2018-03-14 00:51 | NUR ---
BLOOD PRODUCTS HAVE FINISHED. NO ADVERSE REACTION NOTED. VS STABLE. LAB IN ROOM TO DRAW FOLLOW-UP LABS. PATIENT WAS UP TO THE BATHROOM, URINE SAMPLE COLLECTED INDEPENDENTLY BY HER. PATIENT DENIES FEELING SOB OR LIGHTHEADED. PATIENT REPORTS COUGH THAT IS UNRELIEVED BY SIPS OF WATER. DISCUSSED WITH , ORDERS RECEIVED AND VERIFIED USING REPEAT BACK METHOD. PATIENT PROVIDED WITH PATRICIO HERNANDEZL AND HUMBERTO.
--- NOTE | 2018-03-14 01:10 | NUR ---
ORTHOSTATIC VS DONE, VS STABLE. NO DIZZINESS OR FEELING LIGHTHEADED.
--- NOTE | 2018-03-14 03:44 | NUR ---
PATIENT'S IV SITE HAS BECOME POSITIONAL AND DIFFICULT TO FLUSH. UNABLE TO IMPROVE SITE WITH DRESSING AND POSITIONAL CHANGES. NEW IV STARTED IN RIGHT FOREARM. IV FLUIDS INFUSING PER ORDER. PATIENT HAS CONTINUED DIFFICULTY RESTING DUE TO HER COUGH. PRN LOZENGE PROVIDED.
--- NOTE | 2018-03-14 04:18 | NUR ---
PATIENT ASSISTED TO THE BATHROOM. DENIES FEELING DIZZY, LIGHTHEADED, OR SOB. DAILY WT DONE, PATIENT HAD 1 LB WEIGHT GAIN. PRN COUGH SYRUP PROVIDED. PATIENT BACK TO BED. DENIES FURTHER NEEDS.
--- NOTE | 2018-03-14 06:21 | NUR ---
PATIENT RECIEVED 1 UNIT BLOOD THIS SHIFT. LABS ONLY SLIGHTLY IMPROVED. PATIENT HAS DENIED FEELING SOB, LIGHTHEADED OR DIZZY THROUGHOUT THE SHIFT. SBA TO THE BATHROOM, PATIENT STEADY ON FEET. ORTHOSTATIC VS. DAILY WT. TELE 9, SINUS TACH 98-110. MINIMAL EDEMA NOTED IN MAKAYLA LOWER EXTREMITIES. LUNGS ARE COARSE WITH PRODUCTIVE COUGH. PRN MEDS FOR COUGH RELIEF. LR @ 75. NPO EXCEPT FOR MEDS. ACCU CHECKS AND SSI.
--- NOTE | 2018-03-14 06:52 | NUR ---
ASSISTED PATIENT UP TO THE BATHROOM. STEADY ON HER FEET. URINE OUTPUT QS. PATIENT BACK TO BED. DENIES NEEDS.
--- NOTE | 2018-03-14 07:09 | NUR ---
REVIEWED THIS MORNING LABS WITH VIA THE PHONE. NO NEW ORDERS.
--- NOTE | 2018-03-14 07:20 | NUR ---
RECIEVED REPORT FROM SOLID FIBER PASTER OPERATOR RN. PT IN BED, DENIES PAIN OR NEEDS, IS AAO. CALL LIGHT IN REACH. LR INFUSING AT 75ML/HR.
--- NOTE | 2018-03-14 08:36 | NUR ---
PT UP IN CHAIR, HAS HARSH COUGH. REFUSING CEPACOL LOSANGE AT THIS TIME. ADA DIET STARTED AND BREAKFAST ORDERED. LR INCREASED TO 125ML/HR PER ORDER.
--- NOTE | 2018-03-14 08:44 | NUR ---
ASSESSMETN DONE. PT WITH HACING COUGH, LUNGS COARSE. INCENTIVE SPEROMETER AND ACAPPELLA EDUCATION COMPLETED. PT REPORTS MILD SWELLING IN BILAT HANDS. BOWEL TONES ACTIVE, BM ON 03/13. NO N/T TO EXTREMITIES. HEART SOUNDS REGULAR. TELE #9 IN PALCE HR 100. PT REPORTS FEELING SOB ONLY WHEN COUGHING. DENEIS BEING LIGHTHEADED OR DIZZY. CALL LIGHT IN REACH. WATER REFRESHED. DENEIS FURTHER NEEDS.
--- NOTE | 2018-03-14 09:16 | NUR ---
PHYSICAL THERAPY IN TO SEE PT.
--- NOTE | 2018-03-14 11:22 | NUR ---
ROUNDED WITH DR ORO. PLAN OF CARE DISCUSSED. QUESTIONS AND CONCERNS ADDRESSED. TELE DC'D PER DR CORDON.
--- NOTE | 2018-03-14 12:45 | NUR ---
DR PANG IN TO CONSULT.
--- NOTE | 2018-03-14 13:25 | NUR ---
BOWEL PREP STARTED. PT ON CLEAR LIQUIDS NOW.
--- NOTE | 2018-03-14 16:39 | NUR ---
PT HAD GOOD DAY, BOWEL PREP FINISHED. CLEAR LIQ DIET IN PLACE. NPO AT MIDNIGHT. DENIES PAIN, SOB WITH COUGHING ONLY, STILL SOME ORTHOPNEA. PT AMBULATING HALLS. INDEPENDENT IN ROOM. PLAN FOR COLONOSCOPY TOMORROW. NA IMPROVING, CALCIUM IMPROVING, H&H MOVING IN RIGHT DIRRECTION. BLOOD SUGARS. SLIDING SCALE. LR AT 125. COUGH WITH PRN'S AVLAIBLE.
--- NOTE | 2018-03-14 17:34 | NUR ---
LARGE LOOSE STOOL. GUAIAC TEST POSITIVE.
--- NOTE | 2018-03-14 19:11 | NUR ---
SHIFT REPORT RECEIVED. PATIENT RETURNING FROM THE BATHROOM TO SIT IN RECLINER. APPEARS TO BE IN GOOD SPIRITS. DENIES ANY NEEDS AT THIS TIME. CALL LIGHT IN REACH.
--- NOTE | 2018-03-14 20:59 | EKG ---
[facility] [address] [facility] [place], [place] [address] Signed Sinus tachycardia Low voltage QRS Borderline ECG No previous ECGs available Confirmed by RIDDHI ORO DO ([id number]) on 03/14/2018 8:58:43 PM Electronically Signed By: RIDDHI ORO DO 03/14/18 2059 PATIENT NAME: MARYAM BACON Electrocardiogram DATE OF : 70 PHYSICIAN: RIDDHI ORO DO REPORT #: [id number] REPORT IS CONFIDENTIAL AND NOT TO BE RELEASED WITHOUT AUTHORIZATION
--- NOTE | 2018-03-14 21:30 | NUR ---
PATIENT PROVIDED WITH EVENING MEDICATION. PATIENT RECEIVED FIRST DOSE OF LOPRESSOR PRE ORDERS, VERBAL EDUCATION PROVIDED. PATIENT REPORTS FEELING "OKAY" TODAY. NO PAIN. COUGH HAS BEEN BETTER DURING THE DAY AND WORSE AT NIGHT, WHICH HAS BEEN THE NORMAL FOR 2-3 WEEKS. LUNGS ARE COARSE IN UPPER LUNGS WITH SOME EXPIRTORY WHEEZES IN MAKAYLA LOWER LOBES, NOT CLEARED WITH COUGH. ABD IS SOFT, BOWEL SOUNDS ACTIVE. PATIENT HAS HAD MULTIPLE SOFT BM FOLLOWING BOWEL PREP THIS AFTERNOON. PATIENT HAS HAD LARGE AMOUNT OF URINE OUTPUT, URINE IS CLEAR YELLOW. IV FLUIDS PER ORDER, SITE WNL. PATIENT DENIES ANY NEEDS AT THIS TIME. CALL LIGHT IN REACH.
--- NOTE | 2018-03-14 23:57 | NUR ---
PATIENT PROVIDED WITH ROBITUSSIN FOR COUGH. PATIENT WILL BE NPO FROM THIS TIME ON. WATER CUPS REMOVED. PATIENT VERBILIZED UNDERSTANDING. NO NEEDS AT THIS TIME.
--- NOTE | 2018-03-15 03:00 | NUR ---
NEW BAG OF IV FLUIDS STARTED, SITE WNL. PATIENT APPEARED TO BE SLEEPING, WOKE WHEN RN ENTERED ROOM. DENIES ANY NEEDS AT THIS TIME.
--- NOTE | 2018-03-15 04:26 | NUR ---
PATIENT UP TO THE BATHROOM INDEPENDENTLY. CAQLLED TO HAVE URINE MEASURED. DENIES ANY NEEDS.
--- NOTE | 2018-03-15 05:38 | NUR ---
PATIENT SLEPT ON AND OFF. DENIES ANY PAIN OR NAUSEA. VS STABLE. NPO SINCE MIDNIGHT. CONSENT SIGNED FOR PLANNED PROCEDURE THIS AM. IV FLUIDS, LR @ 125. PATIENT HAS HAD SIGNIFICANT URINE OUTPUT THIS SHIFT OF DILUTE YELLOW URINE. INDEPENDENT IN ROOM. NO BM THIS SHIFT. ACCU CHECKS PER ORDER W/SSI.
--- NOTE | 2018-03-15 06:37 | NUR ---
PATIENT UP PLAYING GAMES ON HER PHONE. DRESSING ON LEFT AC IV SITE CHANGED DUE TO POSITIONAL IV SITE AND BLOOD UNDER DRESSING. SITE NOW FLUSHES EASILY. PATIENT DENIES ANY NEEDS.
--- NOTE | 2018-03-15 08:41 | NUR ---
WAITING FOR CLAIFICATION ON MED ORDERS. WILL GIVE MEDS ONCE ORDERS ARE CLEAR.
--- NOTE | 2018-03-15 10:45 | NUR ---
SPOKE WITH PATIENT IN ROOM. PATIENT STATES SHE LIVES ALONE, HAS ONLY 1 STEP IN AND HAS NO AMBULATION ISSUES. 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 ALERTED FURNACE CHARGER TO LEAVE NOTE FOR PHYSICIAN FOR THIS. PATIENT HAS FAMILY IN THE AREA IF SHE NEEDS HELP. DENIES ANY BARRIERS TO RETURNING HOME AT DISCHARGE. WILL FOLLOW NEEDED.
--- NOTE | 2018-03-15 12:51 | NUR ---
PT OFF THE FLOOR FOR SCOPE PROCEDURE.
[2018-03-15] MEDS ORDERED: AMLODIPINE BESY10 MG PO (13:55)
[2018-03-15] MEDS ORDERED: OMEPRAZOLE20 MG PO (13:59)
[2018-03-15] MEDS ORDERED: DULERA 200 MCG/13 GM INH (14:01)
[2018-03-15] MEDS ORDERED: VENTOLIN HFA18 GM INH (14:02)
--- NOTE | 2018-03-15 14:41 | NUR ---
03/15/18 1441 Sheets,Rosa 1425 PT ARRIVED TO PACU ON 4L VIA NC, PT DROWSY AND DENIES NAUSEA AND PAIN. PT COUGHING AND SMALL AMOUNT OF SPUTUM NOTED. PT PASSING GAS/AIR. 1438 CBG 116. PT SITTING IN HIGH FOWLERS AND CONTINUES TO DENY NAUSEA AND PAIN. VSS. RESP EVEN AND UNLABORED.
--- NOTE | 2018-03-15 19:00 | NUR ---
REPORT RECEIVED. PATIENT IN RECLINER USING HER CELL PHONE. DENIES ANY NEEDS AT THIS TIME.
--- NOTE | 2018-03-15 19:28 | NUR ---
CHARGE NURSE REPORT RECEIVED FROM SADIE GARCIA ON PHONE, LAYING IN BED, NO NEEDS AT THIS TIME REPORTED.
--- NOTE | 2018-03-15 20:19 | CONS ---
[facility] [address] [place], [place] [address] Signed DATE OF CONSULTATION: 03/14/2018 CONSULTING PHYSICIAN: Kathie Pang MD PROBLEM: Persistent anemia of unknown etiology. HISTORY OF PRESENT ILLNESS: This 47-year-old obese Bangl[place] woman was admitted to the hospital by Dr. Najera on March 13, having presented to the emergency room primarily with shortness of breath. She has been having an upper respiratory infection or upper respiratory symptoms for nearly 3 weeks and has seen her primary care provider, Minna Robertson at [facility] on several occasions. Her presentation was weakness, shortness of breath, and so forth. In the past several weeks, she has had no actual blood work done, but the CBC that was obtained at time of her admission showed her to be quite anemic with hematocrit of 22. The patient denies any hematemesis, though she has had episodes of retching. She has coughed so much and no blood per rectum nor any other bowel habit changes, specifically no diarrhea or constipation. She has never had endoscopic evaluation above or below in the past. PAST MEDICAL HISTORY: Does include obesity, hypertension, type 2 diabetes, and chronic hyponatremia. SOCIAL HISTORY: She smokes 3 to 4 cigarettes a day and has been smoking for 20 years. Drinking alcohol only occasionally, though she did drink 7 beers immediately prior to her admission to the hospital. She has no children. She is accompanied by her two sisters today. ALLERGIES: She is considered allergic to Lasix causing swelling and metformin with vomiting. PHYSICAL EXAMINATION: GENERAL: This is a relatively short and meléndez Bangladeshi woman who does not look to be in any distress at the moment. NECK: Shows no thyromegaly or cervical adenopathy. Trachea is midline. She has no hoarseness. CHEST: Clear. I do not detect a wheeze at this time. HEART: Regular without murmur. ABDOMEN: Obese, but soft. Easily palpated. There is no ascites, tenderness, or mass. EXTREMITIES: Show no clubbing, cyanosis, or edema. Electronically Signed By: KATHIE PANG MD 03/15/182018 PATIENT NAME: MARYAM BACON CONSULTATION DATE OF : 70 REPORT #: [id number] PHYSICIAN: KATHIE PANG MD PCP: ALFREDO PARIKH REPORT IS CONFIDENTIAL AND NOT TO BE RELEASED WITHOUT AUTHORIZATION [facility] [address] [place], [place] [address] Signed LABORATORY DATA: Her electrolytes from 03/13/2018 show a sodium of 121 (chronic episodic hyponatremia is noted) with a chloride of 92, creatinine of 1.29, and glucose of 236. Liver enzymes normal. Troponin less than 0.01. Coag studies normal with an INR of 0.9. White count of 9.3 and hematocrit of 22.3 with platelets of 351,000. Her influenza titers are negative. ASSESSMENT AND PLAN: The patient has anemia, which is persistent despite repeated CBC studies indicating it is a durable finding. Her chronic episodic hyponatremia is of uncertain etiology, but she does have metabolic problems including diabetes, which is poorly managed due to her extreme noncompliance. She has had no hematemesis, though she did have some retching. I would recommend as does Dr. aNjera, colonoscopy. The risks of bleeding, infection, perforation, and other unforeseen complications was reviewed in detail. She is eating a regular diet at this time, but we can initiate a bowel prep anticipating colonoscopy tomorrow and if necessary, upper endoscopy. The risks were reviewed and accepted and we will make plans for this. MD KASIA Miramontes/PHONGL /[id number] cc: Minna Robertson [facility] Riddhi Najera MD Copies: RIDDHI NAJERA DO ~ Electronically Signed By: KATHIE PANG MD 03/15/182018 PATIENT NAME: MARYAM BACON CONSULTATION DATE OF : 70 REPORT #: [id number] PHYSICIAN: KATHIE PANG MD PCP: ALFREDO PARIKH REPORT IS CONFIDENTIAL AND NOT TO BE RELEASED WITHOUT AUTHORIZATION
--- NOTE | 2018-03-15 20:30 | NUR ---
EVENING MEDS GIVEN PER ORDER. PATIENT'S IV INFILTRATED WITH MED ADMINISTRATION. IV REMOVED. SITE DRESSED. MD NOTIFIED. ORDERS TO LEAVE IV SITE OUT AT THIS TIME. PRN BENADRLY PROVIDED FOR ITCHING ON THE EFFECTED ARM. PATIENT DENIES ANY PAIN OR NAUSEA.
--- NOTE | 2018-03-15 23:00 | NUR ---
PATIENT REPORTS IMPROVED ITCHING IN THE RIGHT ARM AND FEELS WELL OVERALL. SITE HAS ONLY MILD SWELLING. PATIENT IS GOING TO BED. DENIES ANY NEEDS. CALL LIGHT IN REACH.
--- NOTE | 2018-03-16 01:00 | NUR ---
PATIENT UP TO THE BATHROOM. STEADY ON HER FEET. DENIES ANY NEEDS AT THIS TIME.
--- NOTE | 2018-03-16 05:00 | NUR ---
PATIENT UP TO THE BATHROOM. DAILY WT AND VS DONE. PATIENT BACK IN BED. FRESH ICE WATER PROVIDED. DENIES FURTHER NEEDS.
--- NOTE | 2018-03-16 06:46 | NUR ---
PATIENT HAD A GOOD NIGHT, SLEPT ON AND OFF. NO PAIN. NO SIGNS OF BLEEDING. VS STABLE. NO IV SITE. TOLERATING CLEAR LIQUIDS.
--- NOTE | 2018-03-16 07:26 | NUR ---
RECIEVED BEDSIDE REPORT FROM [employer]ULAY SALES. PT AWAKE AND ALERT, SITTING UP IN CHAIR. PT REPORTS NO IV ACCESS AT THIS TIME, MD AWARE AND ORDER TO LEAVE IV OUT. NO NEEDS NOTED AT THIS TIME. PT REQUESTS DOOR KEPT CLOSED TO KEEP HEAT IN.
--- NOTE | 2018-03-16 08:09 | NUR ---
PT AWAKE AND ALERT IN CHAIR. PT IS UNHAPPY THAT SHE CAN'T HAVE CREAM IN COFFEE. LUNGS ARE CLEARING. PT IS ON PERIOD, MODERATE AMT OF DARK RED VAGINAL BLEEDING. PT DRINKS COPIOUS AMTS OF WATER. VOIDS LARGE AMTS OF DILUTE PALE YELLOW URINE.
[2018-03-16] MEDS ORDERED: LEVOFLOXACIN500 MG PO (09:50)
--- NOTE | 2018-03-16 10:53 | NUR ---
PT UNHAPPY, WOULD LIKE TO GO HOME. ORDER FOR MAG RIDER.
[2018-03-16] MEDS ORDERED: DOXYCYCLINE HY100 MG PO (11:01)
[2018-03-16] MEDS ORDERED: PANTOPRAZOLE SO40 MG PO (11:01)
[2018-03-16] MEDS ORDERED: CARAFATE1 GM PO (11:15)
[2018-03-16] MEDS ORDERED: FERROUS SULFAT325 MG PO ×2 (11:19→11:20)
--- NOTE | 2018-03-16 11:26 | NUR ---
ATTEMPTING IV ACCESS. PT FLINCHED AND VEIN BLEW.
--- NOTE | 2018-03-16 11:45 | NUR ---
RN SPOOL HAULER WAS ABLE TO GET IV STARTED. MAG RIDER INFUSING WHILE PT IS EATING LUNCH. RX IN TO GO OVER MEDICATIONS, WILL BE BACK AFTER MAKING CHANGES. WILL DO DISCHARGE TEACHING WHEN SHE IS DONE. PT GETS UPSET WITH INTERVENTIONS.
[2018-03-16] MEDS ORDERED: METOPROLOL SUCC25 MG PO (12:03)
[2018-03-16] MEDS ORDERED: ALLEGRA ALLERG180 MG PO (12:10)
[2018-03-16] MEDS ORDERED: VITAMIN B-121000 MCG PO (12:13)
[2018-03-16] MEDS ORDERED: NEURONTIN300 MG PO (12:25)
--- NOTE | 2018-03-16 13:25 | NUR ---
PT DRESSED AND READY TO GO. DISCHARGE TEACHING COMPLETE, DISCUSSED FOLLOW UP, WHEN TO CALL THE DR, MEDICATIONS, AND DIET. WRITTEN AND VERBAL INSTRUCTIONS GIVEN, WITH WRITTEN EDUCATION. PT VERBALIZED UNDERSTANDING. PT STATED SHE HAD SENT HER MEDS HOME WHILE SHE WAS STILL IN THE ER. NO HOME MEDS. IV REMOVED.
--- NOTE | 2018-03-16 18:33 | OR ---
[facility] [address], [place] [address] Signed DATE OF OPERATION: 03/15/2018 SURGEON: Kathie Pang MD PREOPERATIVE DIAGNOSES: 1. Significant anemia without known gastrointestinal bleeding (hematocrit 22). 2. Episodic heavy alcohol use. POSTOPERATIVE DIAGNOSES: 1. Normal colon. 2. Bleeding, lesser curve gastric erosions (secured with hemoclips). PROCEDURES: 1. Colonoscopy to cecum. 2. Esophagogastroduodenoscopy with control of bleeding with hemoclips. 3. Gastric biopsy for CLOtest. ANESTHESIA: Propofol infusion, Joe Lynn CRNA. INDICATION: This 47-year-old Chinese woman was admitted to the hospital on March 13, 2018, with a significant upper respiratory problem including persistent cough and so forth. She had a fair amount of retching as well. She was noted to have these symptoms for the past couple of weeks. However, only recently has a CBC been obtained, which showed significant anemia. Her hematocrit has been at 22. On a high probability, this represents a colonic source of bleeding. I have recommended colonoscopy after bowel prep. Additionally, if colonoscopy was unrevealing as to the source of the anemia, upper endoscopy is recommended. Of note, she generally is not a heavy drinker (she says), but she did have seven beers immediately prior to her recent admission. The risks of upper endoscopy and colonoscopy were reviewed with her including but not limited to bleeding, infection, perforation, and so on. FINDINGS: On colonoscopy, the prep was adequate and complete colonoscopy was undertaken to the cecum showing no lesion to account for bleeding. She did have some internal hemorrhoids. She did have significant menstrual bleeding. Electronically Signed By: KATHIE PANG MD 03/16/18 1833 PATIENT NAME: MARYAM BACON OPERATIVE REPORT DATE OF : 70 REPORT #: [id number] PHYSICIAN: KATHIE PANG MD PCP: ALFREDO PARIKH REPORT IS CONFIDENTIAL AND NOT TO BE RELEASED WITHOUT AUTHORIZATION [facility] [address], [place] [address] Signed On upper endoscopy, somewhat to my surprise, the bleeding source was identified in the lesser curve of the stomach, which included gastric erosions, which were actively bleeding. Hemoclips were used to secure bleeding. CLOtest was negative. The esophagus was then completely normal showing no sign of bleeding, Erma-Douglas tear, or varices. The duodenum was normal. There was no sign of neoplasm of the stomach to account for this erosive problem. DESCRIPTION OF PROCEDURE: The patient was brought to the endoscopy suite and placed in lateral decubitus position, given intravenous sedation with propofol infusional technique by the animal care supervisor with full cardiopulmonary monitoring. Digital rectal examination was normal. A fair amount of blood was noted from the introitus related to menstrual period. Olympus video colonoscope was passed in the rectum and manipulated throughout the colon showing no sign of blood, bleeding, colitis, or other abnormality. The scope was ultimately advanced to the cecum. Irrigation was undertaken and the scope was withdrawn from the cecum and careful inspection throughout showed no lesion whatsoever that would account for bleeding in anyway. Retroflexed view did show internal hemorrhoidal changes. The scope was removed. Though not anticipated, but nevertheless discussed with patient an advanced upper endoscopy was deemed advisable. Intravenous lidocaine was administered by the animal care supervisor. A bite block was placed and an Olympus video upper endoscope passed in the hypopharynx. The vocal cords were normal, though there was a plethoric hypopharynx due to her body habitus. The scope was advanced to the esophagus without problem, throughout its length it was entirely normal. Scope was passed into the stomach, which immediately saw some fresh blood in the distal portion. Rugal folds were normal. The scope was advanced to the antrum where erosive changes are noted on the lesser curve. There appeared to be active dripping of blood in the area. Irrigation was briefly undertaken and the pre-pyloric antrum appeared normal. Scope was passed through the pylorus into the duodenum, which was normal. Scope was withdrawn and plans were then made for assessment of antral erosive changes. With irrigation, erosive changes could be identified. There was no neoplasm or actual ulcer. Multiple hemoclips were used to secure the bleeding. Three in total were affectively placed. Several others had been attempted to be placed. At this point, good hemostasis was noted. Irrigation was undertaken. A small biopsy was taken far from this site for TAYLOR testing. CLOtest was negative 20 minutes post procedure. The scope was withdrawn to the esophagus, which showed no sign of abnormality. There was no Erma-Douglas tear or proximal gastric varices or anything of that sort. The scope was then removed. The patient was taken to recovery room in good condition. Electronically Signed By: KATHIE PANG MD 03/16/18 2913 PATIENT NAME: MARYAM BACON OPERATIVE REPORT DATE OF : 70 REPORT #: [id number] PHYSICIAN: KATHIE PANG MD PCP: ALFREDO PARIKH REPORT IS CONFIDENTIAL AND NOT TO BE RELEASED WITHOUT AUTHORIZATION [address] [address] Signed CONCLUDING DIAGNOSIS: Bleeding no doubt related to gastric erosions on lesser curve, now controlled with hemoclips. PLAN: Intensive therapy with Carafate liquid as well as PPI medication. MD KASIA Miramontes/PHONGL /[id number] cc: Riddhi Najera MD Copies: RIDDHI NAJERA DO ~ Electronically Signed By: KATHIE PANG MD 03/16/18 1833 PATIENT NAME: MARYAM BACON OPERATIVE REPORT DATE OF : 70 REPORT #: [id number] PHYSICIAN: KATHIE PANG MD PCP: ALFREDO PARIKH REPORT IS CONFIDENTIAL AND NOT TO BE RELEASED WITHOUT AUTHORIZATION
== END 2018-03-16 12:55 | disposition home or self-care (01) | DRG 378 ==
LOC: ED 16:20 → MS 18:54
PROVIDERS: Surgery; ADMIT Student in an Organized Health Care Education/Training Program
PROC: 0DJD8ZZ Inspection of Lower Intestinal Tract, Via Natural or Artificial Opening Endoscopic (ICD-10-PCS; 2018-03-15)
PROC: 0W3P8ZZ Control Bleeding in Gastrointestinal Tract, Via Natural or Artificial Opening Endoscopic (ICD-10-PCS; principal; 2018-03-15 12:00)
PROC: 0DB68ZX Excision of Stomach, Via Natural or Artificial Opening Endoscopic, Diagnostic (ICD-10-PCS; 2018-03-15 12:00)
DX: K25.4 Chronic or unspecified gastric ulcer with hemorrhage (principal); D62 Acute posthemorrhagic anemia; E87.1 Hypo-osmolality and hyponatremia; E11.22 Type 2 diabetes mellitus with diabetic chronic kidney disease; I12.9 Hypertensive chronic kidney disease with stage 1 through stage 4 chronic kidney disease, or unspecified chronic kidney disease; N18.3 Chronic kidney disease, stage 3 (moderate); F17.210 Nicotine dependence, cigarettes, uncomplicated; E78.5 Hyperlipidemia, unspecified; E66.9 Obesity, unspecified; R00.0 Tachycardia, unspecified; R60.0 Localized edema; K64.8 Other hemorrhoids; T46.1X5A Adverse effect of calcium-channel blockers, initial encounter; J06.9 Acute upper respiratory infection, unspecified; Z88.8 Allergy status to other drugs, medicaments and biological substances; Z91.040 Latex allergy status; Z79.84 Long term (current) use of oral hypoglycemic drugs; Z91.19 Patient's noncompliance with other medical treatment and regimen; Z79.899 Other long term (current) drug therapy; Z68.39 Body mass index [BMI] 39.0-39.9, adult
CPT/HCPCS: 36415; 36430; 71046; 80048; 80053; 81001; 82607; 82728; 82746; 83540; 83605; 83615; 83735; 83880; 83935; 84300; 84466; 84484; 84550; 85025; 85610; 85730; 86850; 86900; 86901; 86920; 87040; 87502; 93005; 93010; 94667; 94668; 97161; 99285-25; C9113; J1815; J2704; J3475; J7120; P9016

== ENCOUNTER 2018-03-25 23:07 | Emergency (ER) | payer BC, OTHER ==
[~2018-03-25] VITALS: Ht 160 cm; Wt 98.5 kg
[~2018-03-25 23:07] MED LIST changes: +ALLEGRA ALLERG180 MG PO; +AMLODIPINE BESY10 MG PO; +CARAFATE1 GM PO; +DOXYCYCLINE HY100 MG PO; +DULERA 200 MCG/13 GM INH; +FERROUS SULFAT325 MG PO; +LEVOFLOXACIN500 MG PO; +LOSARTAN POTASS25 MG PO; +NEURONTIN300 MG PO; +PANTOPRAZOLE SO40 MG PO; +VENTOLIN HFA18 GM INH; +VITAMIN B-121000 MCG PO; +ZYRTEC10 MG PO
--- OUTSIDE RECORDS SUMMARY | 2018-03-25 23:10 | XMS ---
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 Roma has no Care Guidelines for this patient. Dagmar VISIT COUNT (12 MO.) [address] [facility] TOTAL 3 NOTE: Visits indicate total known visits. ED/C VISIT TRACKING (12 MO.) 03/25/2018 23:08 [facility] [place] TYPE: Emergency COMPLAINT: - BILAT LEG SWELLING 03/13/2018 16:20 [facility] [place] TYPE: Emergency COMPLAINT: - EXTREMITY SWELLING/SOB 10/27/2017 03:15 [facility] [place] TYPE: Emergency COMPLAINT: - ABD PAIN DIAGNOSES: - Allergy status to penicillin - Functional dyspepsia - Hypertensive chronic kidney disease with stage 1 through stage 4 chronic kidney disease, or unspecified chronic kidney disease - Other watermaster (current) drug therapy - assisted (current) use of insulin - Chronic kidney disease, stage 3 (moderate) - Upper abdominal pain, unspecified - Nicotine dependence, unspecified, uncomplicated - Type 2 diabetes mellitus with diabetic chronic kidney disease INPATIENT VISIT TRACKING (12 MO.) 03/13/2018 18:54 [facility] [place] TYPE: Medical Surgical COMPLAINT: - ACUTE ANEMIA DIAGNOSES: - Hypo-osmolality and hyponatremia - Type 2 diabetes mellitus with diabetic chronic kidney disease - Body mass index (BMI) 39.0-39.9, adult - Acute upper respiratory infection, unspecified - Allergy status to other drugs, medicaments and biological substances status - Hyperlipidemia, unspecified - Chronic or unspecified gastric ulcer with hemorrhage - Patient's noncompliance with other medical treatment and regimen - Hypo-osmolality and hyponatremia - Other watermaster (current) drug therapy - Localized edema - Obesity, unspecified - Other hemorrhoids - Localized edema - Adverse effect of calcium-channel blockers, initial encounter - Nicotine dependence, cigarettes, uncomplicated - Other jail (current) drug therapy - Hypertensive chronic kidney disease with stage 1 through stage 4 chronic kidney disease, or unspecified chronic kidney disease - Chronic kidney disease, stage 3 (moderate) - Acute upper respiratory infection, unspecified - Hyperlipidemia, unspecified - Obesity, unspecified - Latex allergy status - intermediate designer (current) use of oral hypoglycemic drugs - Other hemorrhoids - Acute posthemorrhagic anemia - assisted (current) use of oral hypoglycemic drugs - Body mass index (BMI) 39.0-39.9, adult - Tachycardia, unspecified - Patient's noncompliance with other medical treatment and regimen - Acute posthemorrhagic anemia - Nicotine dependence, cigarettes, uncomplicated - Latex allergy status - Allergy status to other drugs, medicaments and biological substances status - Chronic or unspecified gastric ulcer with hemorrhage - Type 2 diabetes mellitus with diabetic chronic kidney disease - Anemia, unspecified - Hypertensive chronic kidney disease with stage 1 through stage 4 chronic kidney disease, or unspecified chronic kidney disease - Adverse effect of calcium-channel blockers, initial encounter - Tachycardia, unspecified - Chronic kidney disease, stage 3 (moderate) [id number]
--- NOTE | 2018-03-26 17:02 | EKG ---
[facility] [address] [facility] [place], [place] [address] Signed Normal sinus rhythm Possible Left atrial enlargement Borderline ECG When compared with ECG of 13-MAR-2018 16:31, No significant change was found Confirmed by RIDDHI ORO DO ([id number]) on 03/26/2018 5:01:58 PM Electronically Signed By: RIDDHI ORO DO 03/26/18 1702 PATIENT NAME: MARYAM BACON Electrocardiogram DATE OF : 70 PHYSICIAN: RIDDHI ORO DO REPORT #: [id number] REPORT IS CONFIDENTIAL AND NOT TO BE RELEASED WITHOUT AUTHORIZATION
== END 2018-03-26 02:00 | disposition home or self-care (01) ==
LOC: ED 23:07
DX: R60.0 Localized edema (principal); E78.5 Hyperlipidemia, unspecified; I12.9 Hypertensive chronic kidney disease with stage 1 through stage 4 chronic kidney disease, or unspecified chronic kidney disease; E11.22 Type 2 diabetes mellitus with diabetic chronic kidney disease; N18.3 Chronic kidney disease, stage 3 (moderate); F17.200 Nicotine dependence, unspecified, uncomplicated; Z88.8 Allergy status to other drugs, medicaments and biological substances; Z79.899 Other long term (current) drug therapy; Z79.84 Long term (current) use of oral hypoglycemic drugs
CPT/HCPCS: 71045; 80053; 81001; 83880; 85025; 93005; 93010; 99285-25

== ENCOUNTER 2019-07-26 10:09 | Inpatient (IN) | payer OTHER ==
[~2019-07-26] VITALS: Ht 162.6 cm; Wt 95.7 kg
--- NOTE | ~2019-07-26 | OR ---
[facility] [address] [facility] [place], [place] [address] Draft DATE OF OPERATION: 07/28/2019 SURGEON: Krishna Cespedes DPM PREOPERATIVE DIAGNOSES: 1. Diabetic ulcer with infection, right foot. 2. Osteomyelitis, right foot. POSTOPERATIVE DIAGNOSES: 1. Diabetic ulcer with infection, right foot. 2. Osteomyelitis, right foot. OIL PROSPECTING OBSERVER SURGEON: Eloisa Lugo DPM. ANESTHESIA: IV general with local block, right foot. POCKETBOOK MAKER: Krishna. SPECIMEN TO PATHOLOGY: None. CULTURES: Aerobic and anaerobic cultures performed, right foot. PROCEDURE PERFORMED: Debridement of soft tissue, right foot. DESCRIPTION OF PROCEDURE: The patient was brought to the operating room and placed on the table in the supine position. Anesthesia Department administered IV sedation, after which a local block was given to the right foot using a total of 10 mL 1:1 mixture 2% lidocaine plain and 0.5% Marcaine plain. The right leg and foot were then prepped and draped in the usual sterile manner and an Esmarch was used for hemostasis. Attention was initially directed to the lateral right 5th metatarsal. An area of necrotic tissue noted at this site. Therefore, the incision site was moved more dorsal on the 5th metatarsal in hopes to avoid the area of skin necrosis with the incision. PATIENT NAME: MARYAM BACON OPERATIVE REPORT DATE OF : 70 REPORT #: [id number] PHYSICIAN: KRISHNA CESPEDESM PCP: PRANEETH XIE MD REPORT IS CONFIDENTIAL AND NOT TO BE RELEASED WITHOUT AUTHORIZATION [facility] [address] [place], [place] [address] Draft The incision was approximately 7 cm in length, full thickness through the dermis then deepened through subcutaneous tissue using sharp and blunt dissection. Upon making the initial incision, purulent drainage immediately began flowing from the surgical site. This was then cultured with both aerobic and anaerobic cultures. The surgical site was then deepened and soft tissues were reflected laterally to expose the area of necrotic tissue, which was then debrided with hand instrumentation and irrigated with the power irrigation. Intermittently debriding and irrigating in an effort to identify any remaining necrotic tissue. The majority of the necrotic tissue was along the lateral side of the 5th metatarsal, very little onto the dorsum and appeared to be minimal plantarly. With debridement performed, the foot was squeezed in an attempt to express any drainage and to find any other areas of necrosis both plantarly and dorsally, and none was found. At this time, the surgical site was then packed with the calcium sulfate antibiotic beads containing vancomycin. Incision site was then closed using 4-0 nylon monofilament suture. The area of necrotic tissue over the lateral 5th metatarsal was noted to have no viability at this stage, and this was also debrided leaving an open ulcer about 2 cm in diameter directly over the lateral 5th metatarsal. The ulcer site also remained at the plantar 5th metatarsal head about 1.5 cm in diameter. Surgical site was then dressed with Adaptic gauze, 4 x 4s, Kerlix, fluffs, Flexicon, and an ABD pad. Coban was added for mild compression and to secure the dressings. INTRAOPERATIVE COMPLICATIONS: None. ESTIMATED BLOOD LOSS: Less than 5 mL. The patient tolerated the procedure and the anesthesia well and left the operating room with vital signs stable and vascular status intact to the right foot as evidenced by hyperemia. VOLUME IRRIGATION: 3 L. Krishna Cespedes DPM DFB/MODL /[id number] PATIENT NAME: MARYAM BACONNCHE OPERATIVE REPORT DATE OF : 70 REPORT #: [id number] PHYSICIAN: KRISHNA CESPEDES DPM PCP: PRANEETH XIE MD REPORT IS CONFIDENTIAL AND NOT TO BE RELEASED WITHOUT AUTHORIZATION [facility] [address] [place] [id number] Draft Copies: ~ PATIENT NAME: MARYAM BACONNCHE OPERATIVE REPORT DATE OF : 70 REPORT #: [id number] PHYSICIAN: KRISHNA CESPEDES DPM PCP: PRANEETH XIE MD REPORT IS CONFIDENTIAL AND NOT TO BE RELEASED WITHOUT AUTHORIZATION
[~2019-07-26 10:09] MED LIST changes: -VITAMIN D32000 UNI1 PO; +VITAMIN D350 MC3 PO
--- OUTSIDE RECORDS SUMMARY | 2019-07-26 10:12 | XMS ---
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 \T\middot;\T\nbsp; PLEASE REFER PATIENT TO [facility] FOR NON EMERGENT MEDICAL NEEDS. \T\middot;\ T\nbsp; [facility] CAN SEE PATIENTS SAME DAY FOR APTS IF PATIENT CALLS FIRST THING IN THE MORNING. E.D. VISIT COUNT (12 MO.) 1 [facility] TOTAL 1 NOTE: Visits indicate total known visits. ED/UCC VISIT TRACKING (12 MO.) 07/26/2019 10:10 [facility] [place] TYPE: Emergency COMPLAINT: - R FOOT ULCER INPATIENT VISIT TRACKING (12 MO.) No inpatient visits to display in this time frame [id number]
[2019-07-26] MEDS ORDERED: AUGMENTIN 875-1 EACH PO (10:28)
[2019-07-26] MEDS ORDERED: CIPRO500 MG PO (10:29)
--- NOTE | 2019-07-26 14:17 | NUR ---
1335: PT ARRIVED TO MED SURG. SHE STATES HER PAIN IS UNDER CONTROL AT THIS TIME. PT ORIENTED TO THE ROOM AND THE USE OF THE CALL KERNS. PT INSTUCTED TO CALL FOR HELP BEFORE GETTING UP WHICH SHE STATES UNDERSTANDING. RIGHT FOOT ULCER MEASURES 2.5X3CM AND IS DRY WITH SOME SLIGHT REDDNESS NOTED ABOUT THE WOUND WELL SOME SWELLING. HER FOOT IS ELEVATED AND ICE IN PLACE FROM THE ED. PT STATES HER PAIN IS UNDER CONTROL SINCE IT WAS TREATED IN THE ED. PT ORDERING A LATE LUNCH AT THIS TIME. VSS, SEE ASSESSMENT.
--- NOTE | 2019-07-26 15:44 | NUR ---
IN ROOM AT THIS TIME PLACING DRESSING TO PT RIGHT FOOT. PT REPORTS PAIN IS TOLERABLE AT THIS TIME.
--- NOTE | 2019-07-26 16:32 | NUR ---
PT RESTING IN BED WITH HER RIGHT FOOT ELEVATED AND ICE IN PLACE. DR PAUL HAS SEEN THE PT AND DRESSED THE WOUND ON THE RIGHT FOOT, DRESSING REMAINS CDI. PT STATES HER PAIN IS A 3/10 WHICH SHE CONTINUES TO STATE IS TOLERABLE TO HER.
[2019-07-26] MEDS ORDERED: SODIUM BICARBO650 MG PO (17:21)
--- NOTE | 2019-07-26 17:23 | NUR ---
Pt sleeping at this time.
[2019-07-26] MEDS ORDERED: OZEMPIC1 MG/0.75 SUB-Q (17:25)
[2019-07-26] MEDS ORDERED: MAGOX 400400 MG PO (17:26)
[2019-07-26] MEDS ORDERED: GLYBURIDE5 MG PO (17:32)
[2019-07-26] MEDS ORDERED: VITAMIN C500 M1 PO (17:39)
--- NOTE | 2019-07-26 17:49 | NUR ---
1740: PT LEFT THE DEPT FOR HER MRI.
--- NOTE | 2019-07-26 18:29 | NUR ---
PATIENT RESTING IN BED. VITAL SIGNS DONE. I&O DONE BY RN. CALL LIGHT WITHIN REACH. NO OTHER NEEDS AT THIS TIME
--- NOTE | 2019-07-26 18:49 | NUR ---
Pt is back in her room from the ordered MRI. Her right foot is again elevated and ice placed, dressing remains intact. IV restarted as ordered.
--- NOTE | 2019-07-26 18:57 | NUR ---
PT CRYING AND STATES HER RIGHT FOOT PAIN IS A 6/10. DR ORO CALLED AND NOTIFIED OF HER PAIN LEVEL AND HE STATES HE WILL ORDER SOMETHING FOR THE PAIN.
--- NOTE | 2019-07-26 19:33 | NUR ---
BEDSIDE REPORT FROM ZULAY SULLIVAN. IV PUMP BEEPING DISTAL OCCLUSION, IV SITE FLUSHED, GOOD BLOOD RETURN. CONTINUES TO C/O PAIN WITH DECREASED RATE OF INFUSION. pt RATES PAIN 6-7/10 IN RIGHT FOOT. REFUSES PRN OXYCODONE. PHONED, TO PLACE NEW ORDERS FOR PAIN MEDICATION.
--- NOTE | 2019-07-26 20:03 | NUR ---
ATTEMPTED 2 IV STARTS ON PT WITHOUT SUCCESS. PT HAS WARM BLANKETS ON AT THIS TIME. NOTIFIED PRIMARY RN. CALL LIGHT IS CLOSE.
--- NOTE | 2019-07-26 20:30 | NUR ---
TWO ATTEMPTS AT IV START BY THIS RN. BRIDGE CLUB MANAGER RN NOTIFIED AND IN ROOM FOR IV START. IV D/C'D LEFT AC WNL, PAINFUL, pt CYRING AND REQUESTING IT BE PULLED.
--- NOTE | 2019-07-26 21:32 | NUR ---
pt ASSESSMENT COMPLETE. pt RATES PAIN 3/10 IN R FOOT. SCHEDULED TYLENOL ADMINISTERED. VS COMPLETE, HR 112, SCHEDULED MEDICATION ADMINISTERED. IV ANTIBIOTIC INFUSING WNL ORDERED. CALL LIGHT IN REACH.
--- NOTE | 2019-07-26 21:54 | NUR ---
PT CALLED FOR ASSISTANCE TO THE RESTROOM, SBA WITH FWW. SHE IS BACK IN BED AND DENIES FURTHER NEEDS AT THIS TIME. IV IS INFUSING FINE AND CALL LIGHT IS CLOSE.
--- NOTE | 2019-07-26 23:25 | NUR ---
pt RESTING IN BED ON LEFT SIDE. BREATHING EQUAL AND UNLABORED. IV ANTIBIOTIC COMPLETE, IVF INFUSING ORDERED. LIGHTS OFF IN ROOM.
--- NOTE | 2019-07-27 01:25 | NUR ---
CHECKED ON pt. RESTING IN BED AWAKE. VSS. DENIES PAIN AT THIS TIME. IVF INFUSING WNL ORDERED. NO ADDITIONAL REQUESTS. CALL LIGHT IN REACH.
--- NOTE | 2019-07-27 02:30 | NUR ---
NEW BAG IVF INFUSING WNL ORDERED. pt APPEARS TO BE SLEEPING, EYES CLOSED, BREATHING UNLABORED. DOES NOT AWAKEN TO RN ENTERING ROOM.
--- NOTE | 2019-07-27 05:41 | NUR ---
ASSISTED PT TO RESTROOM AND BACK TO BED. PT WOULD LIKE TYLENOL AT THIS TIME AND DENIES FURTHER NEEDS. CALL LIGHT IS CLOSE.
--- NOTE | 2019-07-27 05:50 | NUR ---
pt UP TO RESTROOM FOR VOID WITH ZULAY ORTEGA. BACK IN BED RATES PAIN 6/10 IN RIGHT FOOT. "I THINK IT'S FROM PRESSURE WALKING". PRN PAIN MEDICATION ADMINISTERED. ASSESSMENT COMPLETE. VSS. COFFEE AND ICE WATER PROVIDED. IVF INFUSING WNL ORDERED. CALL LIGHT IN REACH.
--- NOTE | 2019-07-27 06:30 | NUR ---
pt APPEARED TO REST WELL THROUGHOUT SHIFT. PRN PAIN MEDICATION X 2 FOR RIGHT FOOT PAIN. NUMBNESS NOTED IN RIGHT FOOT. DRESSING CDI, CAP REFILL WNL. VSS. VOIDING QS. IVF INFUSING WNL THROUGHOUT SHIFT. NEW IV LEFT WRIST.
--- NOTE | 2019-07-27 07:15 | NUR ---
RECEIVED REPORT FROM THIEN BISWAS. PT LAYING IN BED AWAKE WITH NO COMPLIANTS OF PAIN AT THIS TIME.
--- NOTE | 2019-07-27 10:30 | NUR ---
Spoke with Teresa. She lives in [place] alone. Denies concern to go home as she states she has 3 sisters who will assist her with any needs. Pt denies use of any DME and works in [employer] at the [employer]. Pt sees Dr. Cespedes for her wound care. Pt denies other needs and wants to dc to home on discharge. Plans on returning to work when able.
--- NOTE | 2019-07-27 12:26 | NUR ---
PT UP TO CHAIR AT THIS TIME AND ASKING FOR A PAIN MED DUE TO PUTTING PRESSURE ON HER FOOT
--- NOTE | 2019-07-27 13:05 | NUR ---
PT PUT FERMENTING CELLAR DROPPER LIGHT TO NOTIFY NURSING STAFF THAT HE HAD TO POOP. ASSISTED PT TO TRANSFER TO THE RESTROOM
--- NOTE | 2019-07-27 13:39 | NUR ---
RT COLLECTED COVID 19 SWAB AT THIS TIME AND RAN TO THE LAB.
[2019-07-27] MEDS ORDERED: ZYRTEC10 MG PO (14:32)
[2019-07-27] MEDS ORDERED: FLONASE ALLERG9.9 ML NAS (14:38)
[2019-07-27] MEDS ORDERED: SODIUM BICARBO650 MG PO (14:42)
--- NOTE | 2019-07-27 14:42 | NUR ---
in pts room to ask how pt is doing. pt stated that she needed to use the restroom at this time. assisted pt to restroom
--- NOTE | 2019-07-27 15:11 | NUR ---
in pts room to give afternoon tylenol. pt also reporting a headache at this time.
[2019-07-27] MEDS ORDERED: LANTUS SOL100 UNIT/1 SUB-Q (15:13)
--- NOTE | 2019-07-27 15:46 | NUR ---
CALLED DAY SURGERY NOTIFY OF PICC LINE CONSULT AND INQUIRE TO WHEN MIGHT BE AVAILABLE. JOSELUIS ALDRIDGE RN SAID ASKED AMARIS BISWAS AND SHE SAID PROBABLY TOMORROW.
--- NOTE | 2019-07-27 18:25 | NUR ---
PT REQUESTING TYLENOL FOR A "BURNING SENSATION WHERE HAD SCRUBBED MY FOOT" PT NOT ABLE TO GET TYLENOL AT THIS TIME, BUT ABLE TO GIVE PT TRAMADOL AT THIS TIME. PT AGREEABLE
--- NOTE | 2019-07-27 19:19 | NUR ---
SHIFT REPORT RECIEVED FROM DANIELLA BISWAS. PT RESTING IN BED, WATCHING TV. NO NEEDS AT THIS TIME. CALL LIGHT IN REACH.
--- NOTE | 2019-07-27 20:10 | NUR ---
HELPED PT TO THE BATHROOM AND BACK TO BED. BEDSIDE TABLE AND CALL LIGHT IN REACH. FRESH ICE WATER GIVEN.
--- NOTE | 2019-07-27 21:08 | NUR ---
VITALS AND I&OS DONE AND CHARTED. BEDSIDE TABLE AND CALL LIGHT IN REACH. PT NEEDS NOTHING AT THIS TIME.
--- NOTE | 2019-07-27 22:11 | NUR ---
ASSESSMENT COMPLETED. PT UP TO BR, FWW, AND BACK TO BED. CMS INTACT. CBG 181, PRN INSULIN PROVIDED. BANDAGING CDI. IV CDI, WNL, FLUSHED WELL. SCHEDULED MEDS PROVIDED. TYLENOL PROVIDED FOR 8/10 PAIN IN RLE. LUNGS CLEAR. NO EDEMA NOTED. NO OTHER NEEDS AT THIS TIME. CALL LIGHT IN REACH.
--- NOTE | 2019-07-28 00:08 | NUR ---
PT RESTING IN BED, EYES CLOSED. IV FLUIDS INFUSING PER ORDER. RIGHT FOOT ELEVATED. RR EVEN, UNLABORED. CALL LIGHT IN REACH.
--- NOTE | 2019-07-28 02:05 | NUR ---
PT CALLS TO REPORT 6/10 PAIN IN RIGHT FOOT. PRN PAIN MED PROVIDED.M PT UP TO BR WITH FWW AND BACK TO BED. IV FLUIDS INFUSING PER ORDER. ASSESSMENT COMPLETED. NO CHANGES TO RIGHT FOOT EDEMA, CMS INTACT. IV WNL, CDI. LUNG SOUNDS CLEAR. NO OTHER NEEDS. CALL LIGHT IN REACH.
--- NOTE | 2019-07-28 03:49 | NUR ---
PT RESTING IN BED, EYES CLOSED. RR EVEN, UNLABORED. IV FLUIDS INFUSING PER ORDER. CALL LIGHT IN REACH.
--- NOTE | 2019-07-28 05:15 | NUR ---
PT SLEPT WELL THIS SHIFT. PAIN MANAGED WITH SCHEDULED AND PRN PAIN MEDS. BANDAGE CDI, CMS INTACT. IV WNL, FLUSHED WELL. PT TOLERATED DIET AND FLUIDS WELL. PT NPO AT MIDNIGHT. CBG 181, MANAGED WITH SS INSULIN. IV WNL, FLUSHED WELL. VSS, UOS. PT TOLERATED IV FLUIDS WELL. PT AMBULATED 1PA, FWW WELL. LUNGS CLEAR.
--- NOTE | 2019-07-28 06:12 | NUR ---
VITALS AND I&OS DONE AND CHARTED. STOOD BY SHE USED THE BATHROOM AND WENT BACK TO BED WITH HER FWW. BEDSIDE TABLE AND CALL LIGHT IN REACH.
--- NOTE | 2019-07-28 06:13 | NUR ---
VS AND I&O COMPLETED. PT PAIN IN RLE 07/19, PRN PAIN MED PROVIDED. PT UP TO BR AND BACK TO BED, SBA WITH FWW. NO OTHER NEEDS AT THIS TIME. CALL LIGHT IN REACH.
--- NOTE | 2019-07-28 07:45 | NUR ---
0700: Report received from Mariana BISWAS. Pt sleeping, call pa within reach.
--- NOTE | 2019-07-28 08:32 | NUR ---
PT RESTING IN HER BED AND COMPLAINTS OF A 5/10 SCHREIBER WHICH SHE WAS MEDICATED FOR. SHE STATES HER RIGHT FOOT PAIN IS UNDER GOOD CONTROL. PT'S RIGHT FOOT IS ELEVATED AND HER DRESSING IS CDI. PT SCHEDULED FOR SURGERY THIS AFTERNOON. SEE ASSESSMENT.
--- NOTE | 2019-07-28 09:29 | NUR ---
MED REC COMPLETE
--- NOTE | 2019-07-28 09:41 | NUR ---
Sada from [facility] called and update given.
--- NOTE | 2019-07-28 11:57 | NUR ---
1155: PT TAKEN TO PACU BY KAT BISWAS TO PLACE A PICC LINE THEN THE PT IS GOING FROM THERE TO THE OR FOR HER SURGERY.
--- NOTE | 2019-07-28 13:50 | NUR ---
In to speak with pt, as I wanted to discuss if she is wanting to have HH for IV antibiotics. She will be required to be home bound. Pt has gone to surgery. Will notify Matthew to discuss tomorrow.
--- NOTE | 2019-07-28 15:19 | NUR ---
07/28/19 1519 Sobeida,Rosa 1501 PT ARRIVED TO PACU, VSS AND ON 6L VIA MASK. RESP EVEN AND UNLABORED. PT TALKING TO RN, PT CONFUSED AND ASKED IF SHE WOPULD RETURN TO THE HOSPITAL. PT REORIENTED TO PACU. PT DENIES PAIN AND NAUSEA. 1504 PT TEARFUL AND O2 MASK REMOVED. RN REASSURING PT. PT ABLE TO MOVE TOES AND DENIES NUMBNESS. BLOCK INFORMATION GIVEN.
--- NOTE | 2019-07-28 15:39 | NUR ---
1530: Pt returned to med surg from PACU. Pt states she has no pain at this time. Her right foot is elevated on a pillow and her dressing is intact, +1 pulse noted and the foot is pale with a cap refill under 2 seconds. IV site intact.
--- NOTE | 2019-07-28 16:13 | NUR ---
SCD ON THE LEFT FOOT. RIGHT FOOT ELEVATED, CPOX IN PLACE, SAT 96% ON ROOM AIR. THE PT'S SISTER IS INTO THE ROOM AND VISITING WITH THE PT. PT HAD SOME WATER IN PACU AND CONTINUES TO DENY ANY NAUSEA. PT DENIES ANY PAIN AT THIS TIME, VSS, WILL CONTINUE TO MONITOR, SEE ASSESSMENT.
--- NOTE | 2019-07-28 17:03 | NUR ---
PT CONTINUES TO DENY ANY PAIN. DRESSING INTACT AND ELEVATED ON A PILLOW.
--- NOTE | 2019-07-28 18:17 | NUR ---
Pt continues to deny any pain. Right foot remains pale and dry as is was pre-op. Some slight edema noted and the foot remains elevated, dressing remains cdi. Teresa denies any needs at this time.
--- NOTE | 2019-07-28 19:34 | NUR ---
PATIENT RESTING IN BED COMFORTABLY AT THIS TIME, WITH RIGHT FOOT ELEVATED AND DRESSING CDI. PATIENT VISTING WITH FAMILY. WATER GLASS REFILLED, AND OLD FOOD REMOVED FROM THE ROOM. PATIENT HAS NO OTHER NEEDS AT THIS TIME.
--- NOTE | 2019-07-28 20:47 | NUR ---
PATIENT GIVEN 1,000MG TYLENOL FOR SCHREIBER, SAYS SHE MAY NEED MEDICATION FOR FOOT PAIN SOON AND WILL CALL. CALL LIGHT IN REACH.
--- NOTE | 2019-07-28 21:00 | NUR ---
VITALS AND I&OS DONE AND CHARTED. ICE PACK GIVEN. GARBAGES EMPTIED. BEDSIDE TABLE AND CALL LIGHT IN REACH.
--- NOTE | 2019-07-28 22:14 | NUR ---
VITALS AND I&OS DONE AND CHARTED. 2 BOXWS OF KLEENEX GIVEN PER PT REQUEST. HELPED HER TO THE BATHROOM WITH HER FWW. SHE WILL CALL WHEN SHE IS DONE.
--- NOTE | 2019-07-28 23:20 | NUR ---
CPOX ALARMING, O2 SAT AND HR WNL. LEFT SCD OFF PER PT REQUEST. EDUCATION PROVIDED, PT PERSISTANT. NO FURTHER NEEDS, CALL LIGHT IN REACH.
--- NOTE | 2019-07-28 23:51 | NUR ---
PATIENT REQUESTING PAIN MEDS AND WAS GIVEN 50MG TRAMADOL FOR 7/10 PAIN IN HER RIGHT FOOT. PATIENT HAD NO OTHER NEEDS.
--- NOTE | 2019-07-29 02:10 | NUR ---
PATIENT WAS SLEEPING WHEN WE CAME IN FOR VS AND ASSESSMENT. PATIENT'S PAIN IS DECREASED TO 3/10 AND COMFORTABLE AT THIS TIME. RIGHT FOOT IS STILL ELEVATED AND ICED. PATIENT HAS NO OTHER NEED AT THIS TIME. CALL LIGHT IN REACH.
--- NOTE | 2019-07-29 03:40 | NUR ---
PT CALLED REQUESTING PAIN MED AND NAUSEA MEDS. ADMINISTERED IV ZOFRAN AND PO TRAMADOL FOR 8/10 PAIN. PT THINKS SHE WILL BE ABLE TO KEEP IT DOWN AND DOES NOT WANT TO WAIT FOR ZOFRAN TO START WORKING BEFORE TAKING IT. PT DENIES FURTHER NEEDS. CALL LIGHT IS CLOSE AND IV IS INFUSING FINE.
--- NOTE | 2019-07-29 04:50 | NUR ---
PATIENT HAS USED THE BEDSIDE COMMODE WELL AND HAS HAD SOME PAIN IN HER RIGHT FOOT. SHE HAD HER SCHEDULED TYLENOL AND GOT TRAMADOL X2 DURING THE NIGHT FOR RIGHT FOOT PAIN. RIGHT FOOT HAS REMAINED ELEVATED AND ICED. DRESSING TO RIGHT FOOT IS CDI. CALL LIGHT IN REACH AND PATIENT REASTING AT THIS TIME.
--- NOTE | 2019-07-29 07:19 | NUR ---
0705: Report received from August BISWAS. Pt resting in her bed with her foot elevated with ice in place. Teresa states she is doing well with no needs and her call pa within reach. Dressing remains cdi.
--- NOTE | 2019-07-29 08:17 | NUR ---
CHARGE NURSE IS UPDATING DR ORO OF HER H&H AT THE STAFF MEETING. PT STATES HER RIGHT FOOT PAIN IS AN 8/10 AND SHE WAS MEDICATED AT THIS TIME. RIGHT FOOT DRESSING REMAINS CDI, ELEVATED AND ICED. FOOT REMAINS PALE WITH SOME NUMBNESS WHICH IS UNCHANGED FROM BASELINE, CAP REFILL AND PULSE ARE GOOD. PT REMAINS ON IV ABX ORDERED. PICC LINE APPEARS HEALTHY AND DRESSING INTACT. VSS, SEE ASSESSMENT.
--- NOTE | 2019-07-29 09:43 | NUR ---
Pt sleeping at this time, call pa within reach.
--- NOTE | 2019-07-29 10:44 | NUR ---
Pt just finished working with OT and is now resting in bed. She states she is doing "ok" at this time and denies any needs.
[2019-07-29] MEDS ORDERED: TYLENOL EXTRA500 MG PO (11:04)
[2019-07-29] MEDS ORDERED: TRAMADOL HCL50 MG PO (11:04)
--- NOTE | 2019-07-29 11:04 | NUR ---
Dr Cespedes to bedside and he is assessing the pt and changing the dressing at this time.
--- NOTE | 2019-07-29 11:14 | NUR ---
SPOKE WITH DR ORO AND DR PAUL WHO STATE PATIENT WILL BE DOING OUTPATIENT IV ABX ONCE A DAY HERE. THEY WILL ORDER THIS. SPOKE WITH PATIENT IN ROOM. SHE STATES SHE HAS A RIDE AND DOES NOT NEED TRANSPORTATION INTO HOSPITAL DAILY. SHE STATES SHE WOULD LIKE A WALKER, BUT SHE THINKS HER FAMILY HAS ONE TO BORROW. DISCUSSED WE CAN GET AN ORDER FOR ONE THROUGH INSURANCE IF SHE NEEDS, OR SHE CAN BORROW ONE AT [facility]. SHE WANTS TO CALL HER FAMILY FIRST TO USE ONE. SHE WILL LET HEAD CASHIER KNOW IF SHE NEEDS HELP GETTING ONE. SHE DENIES ANY OTHER NEED TO GO HOME. SHE HAS FAMILY SUPPORT FOR HELP. UPDATED DR ORO OF HER REQUEST FOR WALKER.
[2019-07-29] MEDS ORDERED: LEVOFLOXAC750 MG/150 IV (11:19)
[2019-07-29] MEDS ORDERED: VANCO 2 GR2 GM/500 M IV (11:19)
--- NOTE | 2019-07-29 13:52 | NUR ---
Pt denies any problems at this time and is getting ready of dc. Dressing remains cdi to the right foot. VSS and pt states understanding of her dc instructions. Pt states she has a walker at home.
== END 2019-07-29 14:10 | disposition home or self-care (01) | DRG 854 ==
LOC: ED 10:09 → MS 13:08
PROVIDERS: Podiatrist Foot Surgery; ADMIT Student in an Organized Health Care Education/Training Program
PROC: 0JBQ0ZZ Excision of Right Foot Subcutaneous Tissue and Fascia, Open Approach (ICD-10-PCS; 2019-07-28)
PROC: 02HV33Z Insertion of Infusion Device into Superior Vena Cava, Percutaneous Approach (ICD-10-PCS; principal; 2019-07-28 14:00)
DX: A41.9 Sepsis, unspecified organism (principal); M86.8X7 Other osteomyelitis, ankle and foot; N17.9 Acute kidney failure, unspecified; L03.115 Cellulitis of right lower limb; E11.69 Type 2 diabetes mellitus with other specified complication; R65.20 Severe sepsis without septic shock; E11.621 Type 2 diabetes mellitus with foot ulcer; L97.519 Non-pressure chronic ulcer of other part of right foot with unspecified severity; D64.9 Anemia, unspecified; E78.5 Hyperlipidemia, unspecified; F17.210 Nicotine dependence, cigarettes, uncomplicated; Z20.828 Contact with and (suspected) exposure to other viral communicable diseases; I12.9 Hypertensive chronic kidney disease with stage 1 through stage 4 chronic kidney disease, or unspecified chronic kidney disease; E11.22 Type 2 diabetes mellitus with diabetic chronic kidney disease; N18.3 Chronic kidney disease, stage 3 (moderate); Z88.8 Allergy status to other drugs, medicaments and biological substances; Z79.899 Other long term (current) drug therapy
CPT/HCPCS: 01480; 36415; 36569; 64450; 71045; 73630; 73721; 80048; 80053; 80202; 83036; 83605; 83735; 84703; 85025; 96374; 97161; 97165; 99285-25; C1713; C1751; C9803; J0744; J1170; J1650; J1815; J2001; J2405; J2704; J2795; J3010; J3370; J7060; J7121; U0002

== ENCOUNTER 2019-11-09 15:18 | Emergency (ER) | payer OTHER ==
[~2019-11-09] VITALS: Ht 162.6 cm; Wt 95.7 kg
--- OUTSIDE RECORDS SUMMARY | ~2019-11-09 | XMS | Encounter Summary ---
Demographics + + + | Address | [address] | | | [place] [address] | + + + | Home Phone | | + + + | Preferred Language | Unknown | + + + | Marital Status | Single | + + + | Oriental Orthodox Affiliation | Unknown | + + + | Race | or | + + + | Ethnic Group | Not or | + + + Author + + + | Author | [facility] | | | and [place] | + + + | Organization | [facility] | | | and [place] | + + + | Address | Unknown | + + + | Phone | Unavailable | + + + Support + + +---------+ + | Name | Relationship | Address | Phone | + + +---------+ + | Karina Paddy | ECON | Unknown | | + + +---------+ + | Rebeca Forte | ECON | Unknown | | + + +---------+ + Care Team Providers + +------+ + | Care Nut Picker Name | Role | Phone | + +------+ + | Ronel Jacobson PA-C | PCP | | + +------+ + Reason for Visit + + + | Reason | Comments | + + + | Allergies | | + + + | Immunotherapy | | + + + Encounter Details +--------+ + + + + | Date | Type | Department | Care Team | Description | +--------+ + + + + | 06/04/ | Clinical | [facility] [place] | Henok Luther MD | Non-seasonal | | 2017 | Support | OTOLARYNGOLOGY [address] | [address] | allergic rhinitis | | | | [address] | [address] [place], [place] | due to pollen | | | | [place] | [address] | (Primary Dx); | | | | [address] | | Allergic rhinitis | | | | [phone] | | due to animal (cat) | | | | | | (dog) hair and | | | | | | dander; Allergic | | | | | | rhinitis due to dust | | | | | | mite; Extrinsic | | | | | | asthma without | | | | | | complication, | | | | | | unspecified asthma | | | | | | severity, | | | | | | unspecified whether | | | | | | persistent | +--------+ + + + + Social [...] + +---------+ + | Alcohol Use | Drinks/Week | oz/Week | Comments | + + +---------+ + | Yes | 1 Standard drinks | 1.0 | 1 a month | | | or equivalent | | | + + +---------+ + + + + | Sex Assigned at | Date Recorded | | | | + + + | Not on file | | + + + documented as of this encounter Progress Notes Modesta Benitez RN - 06/04/2017 3:15 PM PDTPatient presents with epi-pen & inhaler . No active wheezing or cough associated with asthma today. Denies delayed reaction from pre vious allergy injection. No fever or allergy related rash. No recent heavy exposure to aller gens. No plans for strenuous exercise immediately before or after injection today.Electronic ally signed by Modesta Benitez RN at 06/04/2017 3:50 PM PDTdocumented in this encoun ter Plan of Treatment +--------+ + + + + | Date | Type | Specialty | Care Team | Description | +--------+ + + + + | 01/17/ | Appointment | Radiology | Bill Arevalo DNP | | | 2020 | | | [address] | | | | | | [place] | | | | | | [address] | | | | | | | | +--------+ + + + + | 01/17/ | Office | Vascular Surgery | Bill Arevalo DNP | | | 2019 | Visit | | [address] | | | | | | [place] | | | | | | [address] | | | | | | | | +--------+ + + + + | 05/22/ | Office | Nephrology | Mariana Cortez, | | | 2020 | Visit | | [address] | | | | | | [address] [place] | | | | | | [place] [address] | | | | | | [phone] | | | | | | | | +--------+ + + + + documented as of this encounter Visit Diagnoses + + | Diagnosis | + + | Non-seasonal allergic rhinitis due to pollen - Primary | + + | Allergic rhinitis due to animal (cat) (dog) hair and dander | + + | Allergic rhinitis due to dust mite | + + | Extrinsic asthma without complication, unspecified asthma severity, unspecified | | whether persistent | + + documented in this encounter"
--- OUTSIDE RECORDS SUMMARY | ~2019-11-09 | XMS | Encounter Summary ---
Demographics + + + | Address | [address] | | | [place] [address] | + + + | Home Phone | | + + + | Preferred Language | Unknown | + + + | Marital Status | Single | + + + | Hindu Affiliation | Unknown | + + + | Race | or | + + + | Ethnic Group | Not or | + + + Author + + + | Author | [facility] | | | and [place] | + + + | Organization | [facility] | | | [...] Team Providers + +------+ + | Care Pilot Captain Name | Role | Phone | + +------+ + | Ronel Jacobson PA-C | PCP | | + +------+ + Reason for Visit + + + | Reason | Comments | + + + | Allergies | | + + + | Immunotherapy | | + + + Evaluate & Treat (Routine) +--------+ + + + + + | Status | Reason | Specialty | Diagnoses / | Referred By | Referred To | | | | | Procedures | Contact | Contact | +--------+ + + + + + | Closed | Specialty | Otolaryngolog | Diagnoses | Luther, | [facility] | | | Services | y | Extrinsic | Henok Calix MD | Otolaryngolog | | | Required | | asthma, | [address] | [address] | | | | unspecified | [address] | [address] | | | | | asthma | [place], | [address] [place] | | | | | severity, | [place] [address] | [place], [place] | | | | | unspecified | Phone: | [phone] | | | | | whether | [phone] | Phone: | | | | | complicated, | Fax: | [phone] | | | | | unspecified | [phone] | Fax: | | | | | whether | | [phone] | | | | | persistent | | | | | | | Non-seasonal | | | | | | | allergic | | | | | | | rhinitis due | | | | | | | to pollen | | | | | | | Allergic | | | | | | | rhinitis due | | | | | | | to animal | | | | | | | (cat) (dog) | | | | | | | hair and | | | | | | | dander | | | | | | | Allergic | | | | | | | rhinitis due | | | | | | | to dust | | | | | | | mite | | | | | | | Procedures | | | | | | | [place] | | | | | | | IMMUNOTHERAP | | | | | | | Y, ONE | | | | | | | INJECTION | | | | | | | [place] PROFES | | | | | | | SVC,IMMUNOTH | | | | | | | ER,SINGLE/MU | | | | | | | LT AGS | | | | | | | 03/21 | | | | | | | PENDING AUTH | | | | | | | | | | | | | | Immunotherap | | | | | | | y Referral | | | | | | | J[facility] | | | +--------+ + + + + + Encounter Details +--------+ + + + + | Date | Type | Department | Care Team | Description | +--------+ + + + + | 12/30/ | Clinical | [facility] [place] | Henok Luther MD | Extrinsic asthma, | | 2019 | Support | OTOLARYNGOLOGY [address] | [address] | unspecified asthma | | | | [address] | [address] [place], [place] | severity, | | | | [place], [place] | [address] | unspecified whether | | | | [address] | | complicated, | | | | [phone] | | unspecified whether | | | | | | persistent (Primary | | | | | | Dx); Non-seasonal | | | | | | allergic rhinitis | | | | | | due to pollen; | | | | | | Allergic rhinitis | | | | | | due to dust mite; | | | | | | Allergic rhinitis | | | | | | due to animal (cat) | | | | | | (dog) hair and | | | | | | dander | +--------+ + + + + Social [...] documented as of this encounter Progress Notes Domenica Meredith RN - 12/30/2018 1:00 PM PSTPatient presents with epi-pen & inhaler. No ac tive wheezing or cough associated with asthma today. Denies delayed reaction from previous a llergy injection. No fever or allergy related rash. No recent heavy exposure to allergens. N o plans for strenuous exercise immediately before or after injection today.Electronically si gned by Domenica Meredith RN at 12/30/2018 1:16 PM PSTdocumented in this encounter Plan of Treatment +--------+ + + + + | Date | Type | Specialty | Care Team | Description | +--------+ + + + + | 01/17/ | Appointment | Radiology | Bill Arevalo DNP | | | 2019 | | | [address] | | | | | | [place] | | | | | | [id number] | | | | | | | | +--------+ + + + + | 01/17/ | Office | Vascular Surgery | Bill Arevalo DNP | | | 2019 | Visit | | [address] | | | | | | [address] [place] | | | | | | [address] | | | | | | | | +--------+ + + + + | 05/22/ | Office | Nephrology | Mariana Cortez, | | | 2020 | Visit | | [address] | | | | | | [address] [place] | | | | | | [place] [address] | | | | | | [phone] | | | | | | | | +--------+ + + + + documented as of this encounter Visit Diagnoses + + | Diagnosis | + + | Extrinsic asthma, unspecified asthma severity, unspecified whether complicated, | | unspecified whether persistent - Primary | + + | Non-seasonal allergic rhinitis due to pollen | + + | Allergic rhinitis due to dust mite | + + | Allergic rhinitis due to animal (cat) (dog) hair and dander | + + documented in this encounter"
--- OUTSIDE RECORDS SUMMARY | ~2019-11-09 | XMS | Encounter Summary ---
Demographics + + + | Address | [address] | | | [place] [address] | + + + | Home Phone | | + + + | Preferred Language | Unknown | + + + | Marital Status | Single | + + + | Zoroastrian Affiliation | Unknown | + + + | Race | or | + + + | Ethnic Group | Not or | + + + Author + + + | Author | [facility] | | | and [place] | + + + | Organization | [facility] | | | [...] Team Providers + +------+ + | Care Remelt Furnace Expediter Name | Role | Phone | + +------+ + | Ronel Jacobson PA-C | PCP | | + +------+ + Reason for Visit + + + | Reason | Comments | + + + | Immunotherapy | | + + + | Allergies | | + + + Evaluate & Treat (Routine) +--------+ + + + + + | Status | Reason | Specialty | Diagnoses / | Referred By | Referred To | | | | | Procedures | Contact | Contact | +--------+ + + + + + | Closed | Specialty | Otolaryngolog | Diagnoses | Luther, | Henok Luhter | | | Services | y | Allergic | Henok Calix MD | [address] | | | Required | | rhinitis due | [address] | | | | | to pollen | [address] | [address] [place] | | | | | Allergic | [place], | [place], [place] | | | | | rhinitis due | [place] [address] | [address] Phone: | | | | | to animal | Phone: | [phone] | | | | | (cat) (dog) | [phone] | Fax: | | | | | hair and | Fax: | [phone] | | | | | dander | [phone] | | | | | | Allergic | | | | | | | rhinitis due | | | | | | | to dust | | | | | | | Procedures | | | | | | | [place] | | | | | | | IMMUNOTHERAP | | | | | | | Y, ONE | | | | | | | INJECTION | | | | | | | [place] | | | | | | | IMMUNOTHERAP | | | | | | | Y, 2+ | | | | | | | INJECTIONS | | | | | | | [place] PROFES | | | | | | | SVC,IMMUNOTH | | | | | | | ER,SINGLE/MU | | | | | | | LT AGS | | | +--------+ + + + + + Encounter Details +--------+ + + + + | Date | Type | Department | Care Team | Description | +--------+ + + + + | 11/13/ | Clinical | [facility] [place] | Henok Luther MD | Asthmatic | | 2016 | Support | OTOLARYNGOLOGY [address] | [address] | bronchitis, | | | | [address] | [address] [place], [place] | unspecified asthma | | | | [place], [place] | [address] | severity, | | | | [address] | | uncomplicated | | | | [phone] | | (Primary Dx); | | | | | | Non-seasonal [...] | Current Every Day | Cigarettes | | | Quit: 09/23/2012 | | Smoker | | | | | + + + +--------+ + + +---+---+---+ | Smokeless Tobacco: | | | | | Never Used | | | | + +---+---+---+ + + | Comments: smokes about 4 cigarettes a day | + + + + +---------+ + | Alcohol Use [...] encounter Progress Notes Modesta Benitez RN - 11/14/2015 1:21 PM PDTPatient presents with epi-pen & inhaler . No active wheezing or cough associated with asthma today. Denies delayed reaction from pre vious allergy injection. No fever or allergy related rash. No recent heavy exposure to aller gens. No plans for strenuous exercise immediately before or after injection today.Electronic ally signed by Modesta Benitez RN at 11/14/2015 1:58 PM PDTdocumented in this encoun ter Plan of Treatment +--------+ + + + + | Date | Type | Specialty | Care Team | Description | +--------+ + + + + | 01/17/ | Appointment | Radiology | Bill Arevalo DNP | | | 2019 | | | [address] | | | | | | [place] | | | | | | [address] | | | | | | | | +--------+ + + + + | 01/17/ | Office | Vascular Surgery | Bill Arevalo DNP | | | 2019 | Visit | | [address] | | | | | | [place] | | | | | | [address] | | | | | | | | +--------+ + + + + | 05/22/ | Office | Nephrology | Mariana Cortez, | | | 2020 | Visit | | [address] | | | | | | [address] | | | | | | [place] [address] | | | | | | [phone] | | | | | | | | +--------+ + + + + documented as of this encounter Visit Diagnoses + + | Diagnosis | + + | Asthmatic bronchitis, unspecified asthma severity, uncomplicated - Primary | + + | Non-seasonal allergic rhinitis due to pollen | + + | Allergic rhinitis due to animal (cat) (dog) hair and dander | + + documented in this encounter"
--- OUTSIDE RECORDS SUMMARY | ~2019-11-09 | XMS | Encounter Summary ---
Demographics + + + | Address | [address] | | | [place] [address] | + + + | Home Phone | | + + + | Preferred Language | Unknown | + + + | Marital Status | Single | + + + | Episcopalian Affiliation | Unknown | + + + | Race | or | + + + | Ethnic Group | Not or | + + + Author + + + | Author | [facility] | | | and [place] | + + + | Organization | [facility] | | | [...] Team Providers + +------+ + | Care Business Analysis Professional Name | Role | Phone | + +------+ + | Ronel Jacobson PA-C | PCP | | + +------+ + Encounter Details +--------+ + + + + | Date | Type | Department | Care Team | Description | +--------+ + + + + | 11/22/ | Abstract | [facility] [place] | Mariana Cortez W, | | | 2018 | | NEPHROLOGY [address] | [address] | | | | | [address] | [address] [place] | | | | | [place], [place] | [place] [address] | | | | | [address] | [phone] | | | | | [phone] | | | +--------+ + + + + Social [...] + + documented as of this encounter Plan of Treatment +--------+ + + + + | Date | Type | Specialty | Care Team | Description | +--------+ + + + + | 01/17/ | Appointment | Radiology | Bill Arevalo DNP | | | 2019 | | | [address] | | | | | | [place] | | | | | | [address] | | | | | | | | +--------+ + + + + | 01/17/ | Office | Vascular Surgery | Bill Arevalo DNP | | | 2019 | Visit | | [address] | | | | | | [place] | | | | | | [address] | | | | | | | | +--------+ + + + + | 05/22/ | Office | Nephrology | Mariana Cortez | | | 2020 | Visit | | [address] | | | | | | [address] [place] | | | | | | [place] [address] | | | | | | [phone] | | | | | | | | +--------+ + + + + documented as of this encounter Procedures + +--------+ + + + | Procedure Name | Priori | Date/Time | Associated Diagnosis | Comments | | | ty | | | | + +--------+ + + + | HEMOGLOBIN A1C | Routin | 11/22/2018 | | Results for this | | | e | | | procedure are in the | | | | | | results section. | + +--------+ + + + documented in this encounter Results Hemoglobin A1C (11/22/2018) + +-------+ + + + | Component | Value | Ref Range | Performed | Pathologist | | | | | At | Signature | + +-------+ + + + | Hemoglobin | 7.6 | % | | | | A1c | | | | | + +-------+ + + + + + | Specimen | + + | Blood | + + documented in this encounter Visit Diagnoses Not on filedocumented in this encounter"
--- OUTSIDE RECORDS SUMMARY | ~2019-11-09 | XMS | Encounter Summary ---
Demographics + + + | Address | [address] | | | [place] [address] | + + + | Home Phone | | + + + | Preferred Language | Unknown | + + + | Marital Status | Single | + + + | Sabianist Affiliation | Unknown | + + + | Race | or | + + + | Ethnic Group | Not or | + + + Author + + + | Author | [facility] | | | and [place] | + + + | Organization | [facility] | | | and [place] | + [...] Team Providers + +------+ + | Care Semi Automatic Sewing Machine Operator Name | Role | Phone | + +------+ + | Alfredo Jacobson PA-C | PCP | | + +------+ + Reason for Visit + + + | Reason | Comments | + + + | Follow-up | 6 month allergy inj | + + + Evaluate & Treat (Routine) +--------+--------+ + + + + | Status | Reason | Specialty | Diagnoses / | Referred By | Referred To | | | | | Procedures | Contact | Contact | +--------+--------+ + + + + | Closed | | Otolaryngolog | Diagnoses | [place], | Henok Dean | | | | y | 6 month | Alfredo H, | MD [address] | | | | | follow | PA-C [address] | | | | | up/self/Medi | [address] | [address] [facility] | | | | | caid/[place] | [place] | [place], [place] | | | | | Procedures | [address] | [address] Phone: | | | | | OFFICE | [place], | [phone] | | | | | VISIT | [place] | Fax: | | | | | REGULAR | [address] | [phone] | | | | | | Phone: | | | | | | | [phone] | | | | | | | Fax: | | | | | | | [phone] | | +--------+--------+ + + + + Encounter Details +--------+---------+ + + + | Date | Type | Department | Care Team | Description | +--------+---------+ + + + | 01/08/ | Office | [facility] | Henok Dean MD | Asthmatic | | 2016 | Visit | OTOLARYNGOLOGY [address] | [address] [place] | bronchitis, | | | | [address] | [address] [place], [place] | unspecified asthma | | | | [place] | [id number] | severity, | | | | [address] | | uncomplicated | | | | [phone] | | (Primary Dx); | | | | | | Non-seasonal | | | | | | allergic rhinitis | | | | | | due to pollen | +--------+---------+ + + + Social History + + [...] + + documented as of this encounter Last Filed Vital Signs + + + + + | Vital Sign | Reading | Time Taken | Comments | + + + + + | Blood Pressure | - | - | | + + + + + | Pulse | 105 | 01/09/2016 4:22 PM | | | | | PST | | + + + + + | Temperature | - | - | | + + + + + | Respiratory Rate | 16 | 01/09/2016 4:22 PM | | | | | PST | | + + + + + | Oxygen Saturation | 94% | 01/09/2016 4:22 PM | | | | | PST | | + + + + + | Inhaled Oxygen | - | - | | | Concentration | | | | + + + + + | Weight | 90.3 kg (199 lb) | 01/09/2016 4:22 PM | | | | | PST | | + + + + + | Height | 160 cm (5' 3") | 01/09/2016 4:22 PM | | | | | PST | | + + + + + | Body Mass Index | 35.25 | 01/09/2016 4:22 PM | | | | | PST | | + + + + + documented in this encounter Progress Notes Henok Dean MD - 01/09/2016 5:10 PM PST [facility] OTOLARYNGOLOGY [address] [facility] [address] OFFICE NOTE HENOK DEAN MD Patient: MARYAM FORTE Admitting: MR #: [id number] LOC: PT TYPE: Adm Date: 01/09/2016 : 1970 DATE OF VISIT: 01/09/2016. The patient has been on her allergy injections now faithfully for about the last 8-9 month s. She noticed in the fall that she was not having as big a problem with her itchy eyes, r unny nose, sneezing effect. She has been having a bit more trouble here starting into the wet weather and the mold season of the late fall and winter. She is tolerating the shots very well. She has had no reactions and it would appear that both she is handling them wel l and making progress in her symptoms. She was reminded that she can use antihistamines an d nasal cortisone spray while on the shots and had been told that just recently by the hussain portillo nurse. The patient lives in [place] and certainly, during the winter months, it will be much mo re of a challenge to come up and get her shot and these could be given with arrangement at the [facility] and would suggest that we go ahead and see if we cannot connect her f or the winter with her allergy shots. She needs to be seen again in ENT in 6 months' time . HENOK DEAN MD Dictated by HENOK DEAN MD 01/09/2016 17:10:59 Transcribed on 01/10/2016 11:16:02 by vanesa wen# [id number] Confirmation #: [id number] cc: ALFREDO JACOBSON PA-C Henok Thornton MD - 01/09/2016 5:08 PM PSTSee dictation # [id number] documented in th is encounter Plan of Treatment +--------+ + + + + | Date | Type | Specialty | Care Team | Description | +--------+ + + + + | 01/17/ | Appointment | Radiology | Bill Arevalo DNP | | | 2019 | | | [address] | | | | | | [place] | | | | | | [address] | | | | | | | | +--------+ + + + + | 01/17/ | Office | Vascular Surgery | Bill Arevalo DNP | | | 2019 | Visit | | [address] | | | | | | [place] | | | | | | [address] | | | | | | | | +--------+ + + + + | 05/22/ | Office | Nephrology | Mariana Cortez, | | | 2020 | Visit | | [address] | | | | | | [address] [place] | | | | | | [place] [address] | | | | | | [phone] | | | | | | | | +--------+ + + + + documented as of this encounter Visit Diagnoses + + | Diagnosis | + + | Asthmatic bronchitis, unspecified asthma severity, uncomplicated - Primary | + + | Non-seasonal allergic rhinitis due to pollen | + + documented in this encounter
--- OUTSIDE RECORDS SUMMARY | ~2019-11-09 | XMS | Encounter Summary ---
Demographics + + + | Address | [address] | | | [place] [address] | + + + | Home Phone | | + + + | Preferred Language | Unknown | + + + | Marital Status | Single | + + + | Hoahaoism Affiliation | Unknown | + + + | Race | or | + + + | Ethnic Group | Not or | + + + Author + + + | Author | [facility] | | | and [place] | + + + | Organization | [facility] | | | and [...] Team Providers + +------+ + | Care Crochet Beader Name | Role | Phone | + +------+ + | Ronel Jacobson PA-C | PCP | | + +------+ + Reason for Visit + +--------+ + | Reason | Onset | Comments | | | Date | | + +--------+ + | Medication Follow-up | 07/06/ | | | | 2018 | | + +--------+ + Encounter Details +--------+ + + + + | Date | Type | Department | Care Team | Description | +--------+ + + + + | 07/06/ | Telephone | [facility] | Mariana Cortez W, | Medication Follow-up | | 2018 | | NEPHROLOGY [address] | [address] | | | | | [address] | [address] [place] | | | | | [place] | [place] [address] | | | | | [address] | [phone] | | | | | [phone] | | | +--------+ + + + [...] + + documented as of this encounter Miscellaneous Notes Telephone Encounter - Glo Scanlon RN - 07/06/2018 1:53 PM PDTPatient reports that [facility] that [facility] was a medication that Dr. Cortez filled in November that she wasn't taking anymore, not sure of the name. Spoke with [employer]. Report that patient last filled bumetanide in November. They also have losartan listed as discontinued in February, stating patient states does not need it. Dr. Cortez to notified. Tdocumented in this encounter Plan of Treatment +--------+ + + + + | Date | Type | Specialty | Care Team | Description | +--------+ + + + + | 01/17/ | Appointment | Radiology | Bill Arevalo DNP | | | 2019 | | | [address] | | | | | | [place] | | | | | | [address] | | | | | | | | +--------+ + + + + | 01/17/ | Office | Vascular Surgery | Bill Arevalo DNP | | | 2019 | Visit | | [address] | | | | | | [place] | | | | | | [address] | | | | | | | | +--------+ + + + + | 05/22/ | Office | Nephrology | Mariana Cortez, | | | 2020 | Visit | | [address] | | | | | | [address] [place] | | | | | | [place] [address] | | | | | | [phone] | | | | | | | | +--------+ + + + + documented as of this encounter Visit Diagnoses Not on filedocumented in this encounter"
--- OUTSIDE RECORDS SUMMARY | ~2019-11-09 | XMS | Encounter Summary ---
Demographics + + + | Address | [address] | | | [place] [address] | + + + | Home Phone | | + + + | Preferred Language | Unknown | + + + | Marital Status | Single | + + + | Catholic Affiliation | Unknown | + + + | Race | or | + + + | Ethnic Group | Not or | + + + Author + + + | Author | [facility] | | | and [place] | + + + | Organization | [facility] | | | [...] Team Providers + +------+ + | Care Can Filler Name | Role | Phone | + +------+ + PCP | Unavailable | + +------+ + Reason for Visit + + + | Reason | Comments | + + + | Chronic Kidney | stage 2 | | Disease | | + + + Encounter Details +--------+---------+ + + + | Date | Type | Department | Care Team | Description | +--------+---------+ + + + | 11/10/ | Office | [facility] | Mariana Cortez W, | Nephrotic range | | 2012 | Visit | NEPHROLOGY [address] | [address] | proteinuria (Primary | | | | [address] | [address] [place] | Dx); Peripheral | | | | [place], [place] | [place] [address] | edema; CKD (chronic | | | | [address] | [phone] | kidney disease) | | | | [phone] | | stage 2, GFR 60-89 | | | | | | ml/min; DM type 2 | | | | | | (diabetes mellitus, | | | | | | type 2) ([facility]) | +--------+---------+ + + + Social History + +-------+ +--------+ + | Tobacco Use | Types | Packs/Day | Years | Date | | | | | Used | | + +-------+ +--------+ + | Former Smoker | | | | Quit: 09/23/2012 | + +-------+ +--------+ + + +---+---+---+ | Smokeless Tobacco: | | | | | Never Used | | | | + +---+---+---+ + + +---------+ + | Alcohol Use | Drinks/Week | oz/Week | Comments | + + +---------+ + | Yes | 12 Cans of beer | 12.0 | | + + +---------+ + + [...] + + + | Blood Pressure | 138/86 | 11/10/2012 10:49 AM | | | | | PDT | | + + + + + | Pulse | 96 | 11/10/2012 10:49 AM | | | | | PDT | | + + + + + | Temperature | - | - | | + + + + + | Respiratory Rate | 16 | 11/10/2012 10:49 AM | | | | | PDT | | + + + + + | Oxygen Saturation | - | - | | + + + + + | Inhaled Oxygen | - | - | | | Concentration | | | | + + + + + | Weight | 97.3 kg (214 lb 8 | 11/10/2012 10:49 AM | | | | oz) | PDT | | + + + + + | Height | 160 cm (5' 3") | 11/10/2012 10:49 AM | | | | | PDT | | + + + + + | Body Mass Index | 38 | 11/10/2012 10:49 AM | | | | | PDT | | + + + + + documented in this encounter Patient Instructions Patient Instructions Mariana Cortez MD - 11/10/2012 11:14 AM PDTStart furosemide 20 mg once in the morning to get rid of swelling. If no improvement after 2 days, increase to 40 mg in the morning. Bring in urine sample. documented in this encounter Progress Notes Mariana Cortez MD - 11/10/2012 11:20 AM PDTFormatting of this note might be different f rom the original. Nephrology Follow-up Visit Visit date: 11/10/2012 Primary care physician: Orin Snow MD HPI: July Forte is a 42 y.o. female with chronic kidney disease stage 2 and nephrotic rang e proteinuria, likely due to diabetic nephropathy. This is a 1 month f/u visit due to episode of hyperkalemia and metabolic acidosis. Pt stop ped Metformin, and is now just on Januvia. Pt took a dose of kayexalate for hyperkalemia. She never stopped the lisinopril 60 mg/d. Pt reports increase in peripheral edema. Pt denies shortness of breath, chest pain. Her C BGs have been 85-120 on average. Pt reports her recent HbA1c was around 7.5. ROS: A 6-system review was performed, and was negative or noncontributory other than as sta diego above. PMH: Patient Active Problem List Diagnosis Date Noted DM type 2 (diabetes mellitus, type 2) 10/13/2012 Hypertension 10/13/2012 Proteinuria 10/13/2012 CKD (chronic kidney disease) stage 2, GFR 60-89 ml/min 10/13/2012 Note Last Updated: 10/13/2012 Renal ultrasound 09/16/12: right kidney 13 cm, left kidney 12.4 cm. Proteinuric. Migraine headache Outpatient Prescriptions Marked as Taking for the 11/10/12 encounter (Office Visit) with Mary Ellen Cortez MD Medication Status Sig Dispense Refill albuterol (VENTOLIN HFA) 90 mcg/puff inhaler Active Inhale 2 puffs into the lungs every 6 hours as needed. Alcohol Swabs 70 % PADS Active by Does not apply route. B-D UF III MINI PEN NEEDLES 31G X 5 MM [facility] Active CROW CONTOUR TEST strip Active 4 strips Daily. Blood Glucose Monitoring Suppl (CONTOUR BLOOD GLUCOSE SYSTEM) JOANNA Active by Does not a pply route. cholecalciferol (VITAMIN D-3) 5000 UNITS TABS Active Take 5,000 Units by mouth Daily. glipiZIDE (GLUCOTROL XL) 5 mg 24 hr tablet Active Take 5 mg by mouth Daily. insulin glargine (LANTUS SOLOSTAR) 100 units/mL injection Active Inject 10 Units under the skin nightly. lisinopril (PRINIVIL, ZESTRIL) 20 mg tablet Active Take 60 mg by mouth Daily. metoprolol succinate (TOPROL-XL) 25 mg 24 hr tablet Active Take 25 mg by mouth Daily. simvastatin (ZOCOR) 10 mg tablet Active Take 10 mg by mouth nightly. sitagliptan (JANUVIA) 50 MG tablet Active Take 1 tablet by mouth 2 times daily. 60 tab let 0 TechLite Lancets [facility] Active Physical Exam: Filed Vitals: 11/10/12 1049 BP: 138/86 Pulse: 96 Resp: 16 Height: 1.6 m (5' 3") Weight: 97.297 kg (214 lb 8 oz) Constitutional: Appears well-developed and well-nourished. No distress. Cardiovascular: Normal rate, regular rhythm and normal heart sounds. 1+ pitting lower [place] pheral edema bilaterally. Lungs: Respiratory effort normal and breath sounds normal. No crackles or wheezes. Neurological: Alert. Reviewed labs with patient. Creatinine, External Date Value Range Status 11/04/2012 0.8 0.6 - 1.3 Final Lab Results Component Value Date BUN 25 11/04/2012 NA 137 11/04/2012 K 4.7 11/04/2012 CL 108 11/04/2012 CO2 22 11/04/2012 GLUCOSE Date Value Range Status 11/04/2012 119 Final Lab Results Component Value Date PTH 7.53 10/06/2012 CALCIUM 8.6 11/04/2012 PHOS 3.8 11/04/2012 ALBUMIN Date Value Range Status 11/04/2012 3.4* 3.5 - 5.0 g/dL Final eGFR, External Date Value Range Status 11/04/2012 >60 60 Final Assessment and Plan: 1. Chronic kidney disease stage 2 with nephrotic range proteinuria: Likely due to diabetic nephropathy and hypertensive nephrosclerosis. Based on serum creatinine 0.9, pt's eGFR is 68 mL/min per MDRD. -check urine prot/cr ratio -kidney function is stable -no NSAIDS -low sodium diet 2. Hyperkalemia: Improved. Likely due to increased dietary potassium intake. Pt never sto pped her lisinopril. 3. Metabolic acidosis: Improved. 4. Hypertension / peripheral edema: Pt is more hypervolemic, likely due to nephrotic syndro me. -will start furosemide 20 mg QDAY for diuresis, titrate to 40 mg QDAY if no improvement -ok to continue lisinopril 60 mg QDAY given hyperkalemia is resolved -low sodium diet -no NSAIDS 5. DM type 2: Improved control. Pt reports last HbA1c was around 7.5. 6. Vitamin D deficiency: 25-OH vit D = 25. On vitamin D supplementation. Serum calcium and phosphorous are at goal. 7. Hyperlipidemia: On statin therapy. Return in 6 months: renal panel, urine prot/cr ratio. Cc: Dr. Orin Snow documented in this encounter Miscellaneous Notes Addendum Note - Mario Talley - 11/10/2012 3:55 PM PDT Addended by: MARIO TALLEY on: 11/10 15:55 Modules accepted: Orders documented in this encoun ter Plan of Treatment +--------+ + + + + | Date | Type | Specialty | Care Team | Description | +--------+ + + + + | 01/17/ | Appointment | Radiology | Bill Arevalo DNP | | | 2019 | | | [address] | | | | | | [place] | | | | | | [address] | | | | | | | | +--------+ + + + + | 01/17/ | Office | Vascular Surgery | Blil Arevalo DNP | | | 2019 | Visit | | [address] | | | | | | [place] | | | | | | [address] | | | | | | | | +--------+ + + + + | 05/22/ | Office | Nephrology | Mariana Cortez, | | | 2020 | Visit | | [address] | | | | | | [address] [place] | | | | | | [place] [address] | | | | | | [phone] | | | | | | | | +--------+ + + + + documented as of this encounter Procedures + +--------+ + + + | Procedure Name | Priori | Date/Time | Associated Diagnosis | Comments | | | ty | | | | + +--------+ + + + | POCT URINALYSIS, | Routin | 11/10/2012 | CKD (chronic | Results for this | | AUTO WITH CONF | e | 3:53 PM | kidney disease) | procedure are in the | | | | PDT | stage 2, GFR 60-89 | results section. | | | | | ml/min | | + +--------+ + + + documented in this encounter Results POCT Urinalysis Dipstick Automated (11/10/2012 3:53 PM PDT) + + + + + + | Component | Value | Ref Range | Performed | Pathologist | | | | | At | Signature | + + + + + + | Color, UA, | Dark yellow | | | | | POC | | | | | + + + + + + | Clarity, | Slightly Cloudy | | | | | UA, POC | | | | | + + + + + + | Glucose, | 250 mg/dL | | | | | UA, POC | | | | | + + + + + + | Bilirubin, | Negative | | | | | UA, POC | | | | | + + + + + + | Ketones, | Negative | Negative | | | | UA, POC | | | | | + + + + + + | Specific | 1.030 | | | | | [place], | | | | | | UA, POC | | | | | + + + + + + | Blood, UA, | Trace Lysed | | | | | POC | | | | | + + + + + + | pH, UA, POC | 5.0 | | | | + + + + + + | Protein, | >=300 mg/dL | | | | | UA, POC | | | | | + + + + + + | Urobilinoge | 0.2 E.U./dL | | | | | n, UA, POC | | | | | + + + + + + | Nitrite, | Negative | | | | | UA, POC | | | | | + + + + + + | Leukocyte | Small | | | | | Esterase, | | | | | | UA, POC | | | | | + + + + + + | Reducing | | Negative | | | | Substances, | | | | | | Urine | | | | | + + + + + + | Bilirubin | | Negative | | | | Confirmatio | | | | | | n by | | | | | | Ictotest, | | | | | | Urine | | | | | + + + + + + | Remark | | | | | + + + + + + + + | Specimen | + + | Urine specimen | | (specimen) | + + documented in this encounter Visit Diagnoses + + | Diagnosis | + + | Nephrotic range proteinuria - Primary Proteinuria | + + | Peripheral edema Edema | + + | CKD (chronic kidney disease) stage 2, GFR 60-89 ml/min Chronic kidney disease, Stage | | II (mild) | + + | DM type 2 (diabetes mellitus, type 2) ([facility]) Type II or unspecified type diabetes | | mellitus without mention of complication, not stated as uncontrolled | + + documented in this encounter
--- OUTSIDE RECORDS SUMMARY | ~2019-11-09 | XMS | Encounter Summary ---
Demographics + + + | Address | [address] | | | [place] [address] | + + + | Home Phone | | + + + | Preferred Language | Unknown | + + + | Marital Status | Single | + + + | Scientologist Affiliation | Unknown | + + + | Race | or | + + + | Ethnic Group | Not or | + + + Author + + + | Author | [facility] | | | and [place] | + + + | Organization | [facility] | | | [...] Team Providers + +------+ + | Care Fingerprint Classifier Name | Role | Phone | + +------+ + | Ronel Jacobson PA-C | PCP | | + +------+ + Reason for Visit +---------+ + | Reason | Comments | +---------+ + | Post Op | nasal surgery | +---------+ + Encounter Details +--------+---------+ + + + | Date | Type | Department | Care Team | Description | +--------+---------+ + + + | 02/25/ | Office | [facility] | Henok Luther MD | Deviated nasal | | 2018 | Visit | OTOLARYNGOLOGY [address] | [address] | septum (Primary Dx); | | | | [address] | [address] [place] | Hypertrophy of | | | | [place] | [address] | nasal turbinates | | | | [address] | | | | | | [phone] | | | +--------+---------+ + + + Social History [...] + + + + | Pulse | 83 | 02/25/2017 1:34 PM | | | | | PST | | + + + + + | Temperature | - | - | | + + + + + | Respiratory Rate | - | - | | + + + + + | Oxygen Saturation | 96% | 02/25/2017 1:34 PM | | | | | PST | | + + + + + | Inhaled Oxygen | - | - | | | Concentration | | | | + + + + + | Weight | 87.5 kg (193 lb) | 02/25/2017 1:34 PM | | | | | PST | | + + + + + | Height | 160 cm (5' 3") | 02/25/2017 1:34 PM | | | | | PST | | + + + + + | Body Mass Index | 34.19 | 02/25/2017 1:34 PM | | | | | PST | | + + + + + documented in this encounter Progress Notes Henok Luther MD - 02/25/2017 2:30 PM PSTPatient po septoplasty and bilateral inferior t urbinectomy. No major bleeding. Pain tolerable. Pt in for packing removal. Exam: Nose packed bilateral with nasopore packing. Nose sprayed with topical xylocaine and neosynephrine. Both sides of the nose suctioned and cleaned. Pt breathing well. .Electronica lly signed by Henok Luther MD at 02/25/2017 2:17 PM PSTdocumented in this encounter Plan of [...] [place] | | | | | | [address] | | | | | | | | +--------+ + + + + | 01/17/ | Office | Vascular Surgery | Bill Arevalo DNP | | | 2019 | Visit | | [address] | | | | | | [place] | | | | | | [address] | | | | | | | | +--------+ + + + + | 05/22/ | Office | Nephrology | Mariana Cortez, | | | 2020 | Visit | | MD [address] | | | | | | [address] [place] | | | | | | [place] [address] | | | | | | [phone] | | | | | | | | +--------+ + + + + documented as of this encounter Visit Diagnoses + + | Diagnosis | + + | Deviated nasal septum - Primary | + + | Hypertrophy of nasal turbinates | + + documented in this encounter
--- OUTSIDE RECORDS SUMMARY | ~2019-11-09 | XMS | Encounter Summary ---
Demographics + + + | Address | [address] | | | [place] [address] | + + + | Home Phone | | + + + | Preferred Language | Unknown | + + + | Marital Status | Single | + + + | Sabianism Affiliation | Unknown | + + + | Race | or | + + + | Ethnic Group | Not or | + + + Author + + + | Author | [facility] | | | and [place] | + + + | Organization | [facility] | | | and [place] | + + + | Address | Unknown | + + + | Phone | Unavailable | + + + Support + + +---------+ + | Name | Relationship | Address | Phone | + + +---------+ + | Karina Thomason | ECON | Unknown | | + + +---------+ + | Rebeca Forte | ECON | Unknown | | + + +---------+ + Care Team Providers + +------+ + | Care Curriculum And Instruction Specialist Name | Role | Phone | + +------+ + | Mehrdad Avalos MD | PCP | | + +------+ + Reason for Visit + +--------+ + | Reason | Onset | Comments | | | Date | | + +--------+ + | Care Coordination | 08/31/ | request us order and chart notes | | | 2019 | | + +--------+ + Encounter Details +--------+ + + + + | Date | Type | Department | Care Team | Description | +--------+ + + + + | 08/31/ | Telephone | [facility] | Elisha Dunbar | Care Coordination | | 2019 | | INFECTIOUS DISEASE | [place] RN | (request us order | | | | [address] | | and chart notes) | | | | [place] | | | | | | [address] | | | | | | [phone] | | | +--------+ + + + [...] this encounter Miscellaneous Notes Telephone Encounter - Elisha Dunbar RN - 09/01/2019 4:53 PM [facility]TLashay [facility] advised she needs [facility] have an ultrasound set up sera. [place] states she will need the ultrasound order and chart note to get this processed for p atient. [place] states the order and notes should be faxed to her attention at [phone]. Advised will fax once chart note from yesterday 08/31/19 is completed. Manually printed ultrasound order and office visit note. Faxed to [facility] as requested for coordination of care. Fax confirmation received. 5: 00 PM PDTdocumented in this encounter Plan of Treatment +--------+ + + + + | Date | Type | Specialty | Care Team | Description | +--------+ + + + + | 01/17/ | Appointment | Radiology | Bill Arevalo DNP | | | 2019 | | | [address] | | | | | | [place] | | | | | | [address] | | | | | | | | +--------+ + + + + | 01/17/ | Office | Vascular Surgery | Bill Arevalo DNP | | | 2019 | Visit | | [address] | | | | | | [place] | | | | | | [address] | | | | | | | | +--------+ + + + + | 05/22/ | Office | Nephrology | Mariana Cortez, | | | 2020 | Visit | | [address] | | | | | | [address] [place] | | | | | | [place] [address] | | | | | | [phone] | | | | | | | | +--------+ + + + + documented as of this encounter Visit Diagnoses Not on filedocumented in this encounter"
--- OUTSIDE RECORDS SUMMARY | ~2019-11-09 | XMS | Encounter Summary ---
Demographics + + + | Address | [address] | | | [place] [address] | + + + | Home Phone | | + + + | Preferred Language | Unknown | + + + | Marital Status | Single | + + + | Uatsdin Affiliation | Unknown | + + + | Race | or | + + + | Ethnic Group | Not or | + + + Author + + + | Author | [facility] | | | and [place] | + + + | Organization | [facility] | | | [...] Team Providers + +------+ + | Care Kayak Maker Name | Role | Phone | + [...] | | | rhinitis due | [place] [address] | [address] Phone: | | | | | to animal | Phone: | [phone] | | | | | (cat) (dog) | [phone] | Fax: | | | | | hair and | Fax: | [phone] | | | | | dander | [phone] | | | | | | Allergic | | | | | | | rhinitis due | | | | | | | to dust | | | | | | | Procedures | | | | | | | CT | | | | | | | IMMUNOTHERAP | | | | | | | Y, ONE | | | | | | | INJECTION | | | | | | | CT | | | | | | | IMMUNOTHERAP | | | | | | | Y, 2+ | | | | | | | INJECTIONS | | | | | | | CT PROFES | | | | | | | SVC,IMMUNOTH | | | | | | | ER,SINGLE/MU | | | | | | | LT AGS | | | +--------+ + + + + + Encounter Details +--------+ + + + + | Date | Type | Department | Care Team | Description | +--------+ + + + + | 06/17/ | Clinical | [facility] [place] | Henok Luther MD | Allergic rhinitis | | 2016 | Support | OTOLARYNGOLOGY [address] | [address] [place] | due to pollen | | | | [address] | [address] [place] | (Primary Dx); | | | | [place] | [address] | Allergic rhinitis | | | | [address] | | due to animal (cat) | | | | [phone] | | (dog) hair and | | | | | | dander; Allergic | | | | | | rhinitis due to dust | | | | | | mite | +--------+ + + + + Social [...] + documented as of this encounter Progress Modesta Willis RN - 06/18/2015 4:21 PM PDTFormatting of this note might be differ ent from the original. Patient presents with epi-pen & inhaler. No active wheezing or cough associated with asthma today. Denies delayed reaction from previous allergy injection. No fever or allergy related rash. No recent heavy exposure to allergens. No plans for strenuous exercise immediately be fore or after injection today. Mixed one allergy treatment vial today. TREATMENT SET July Forte Molds, Insects & Feathers: 88 06/18/2015 Allergen Extract Amount/ml Dilution Lot # Expiration Date Alternaria Aspergillus Cladosporium Penicillium Bipolaris Sorok. 0.1 C 514375 03/20/18 Pullulans 0.1 C [id number] 03/19/18 Mucor 0.1 C 135403 10/19/17 Phoma Rhodotorula 0.1 1 186069 03/19/18 Fusarium Paecilomyces Grain Smut 0.1 C 188475 01/20/18 Grass Smut 0.1 C 894775 09/10/16 Am. Cockroach 0.1 2 [id number] 07/03/17 Mixed Feathers 0.1 C 320386 03/19/18 Total Allergens : 0.8 ml. Saline: 1.7 ml. Total Volume : 2.5 ml. 5:0 0 PM PDTdocumented in this encounter Plan of Treatment +--------+ + + + + | Date | Type | Specialty | Care Team | Description | +--------+ + + + + | 01/17/ | Appointment | Radiology | Bill Arevalo, GEMMA | | | 2019 | | | [address] | | | | | | [place] | | | | | | [id number] | | | | | | | | +--------+ + + + + | 01/17/ | Office | Vascular Surgery | Bill Arevalo DNP | | | 2019 | Visit | | [address] | | | | | | [place] | | | | | | [address] | | | | | | | | +--------+ + + + + | 05/22/ | Office | Nephrology | Mariana Cortez, | | | 2020 | Visit | | MD [address] | | | | | | [address] [place] | | | | | | [place] [address] | | | | | | [phone] | | | | | | | | +--------+ + + + + documented as of this encounter Visit Diagnoses + + | Diagnosis | + + | Allergic rhinitis due to pollen - Primary | + + | Allergic rhinitis due to animal (cat) (dog) hair and dander | + + | Allergic rhinitis due to dust mite | + + documented in this encounter"
--- OUTSIDE RECORDS SUMMARY | ~2019-11-09 | XMS | Encounter Summary ---
Demographics + + + | Address | [address] | | | [place] [address] | + + + | Home Phone | | + + + | Preferred Language | Unknown | + + + | Marital Status | Single | + + + | Scientology Affiliation | Unknown | + + + | Race | or | + + + | Ethnic Group | Not or | + + + Author + + + | Author | [facility] | | | and [place] | + + + | Organization | [facility] | | | and [place] | + + + | Address | Unknown | + + + | Phone | Unavailable | + + + Support + + +---------+ + | Name | Relationship | Address | Phone | + + +---------+ + | Karina Paddy | ECON | Unknown | | + + +---------+ + | eRbeca Forte | ECON | Unknown | | + + +---------+ + Care Team Providers + +------+ + | Care Teacher Of The Handicapped Name | Role | Phone | + [...] | +--------+ + + + + | 03/12/ | Clinical | [facility] [place] | Henok Luther MD | Extrinsic asthma, | | 2018 | Support | OTOLARYNGOLOGY [address] | [address] | unspecified asthma | | | | [address] | [address] [place], [place] | severity, | | | | [place], [place] | [address] | unspecified whether | | | | [address] | | complicated, | | | | [phone] | | unspecified whether | | | | | | persistent (Primary | | | | | | Dx); Allergic | | | | | | rhinitis due to dust | | | | | | mite; Allergic | | | | | | rhinitis due to | | | | | | animal hair and | | | | | | dander, unspecified | | | | | | chronicity; | | | | | | Non-seasonal | | | | | | allergic rhinitis | | | | | | due to pollen, | | | | | | unspecified | | | | | | chronicity | +--------+ + + + + Social [...] encounter Progress Notes Domenica Meredith RN - 03/12/2017 3:45 PM PSTPatient presents with epi-pen. Denies delayed reaction from previous allergy injection. No fever or allergy related rash. No recent heavy exposure to allergens. No plans for strenuous exercise before or after injection today.Elect ronically signed by Domenica Meredith RN at 03/12/2017 3:52 PM PSTdocumented in this encounte r Plan of Treatment +--------+ + + + + | Date | Type | Specialty | Care Team | Description | +--------+ + + + + | 01/17/ | Appointment | Radiology | Bill Arevalo DNP | | | 2019 | | | [address] | | | | | | [place] | | | | | | [address] | | | | | | | | +--------+ + + + + | 01/17/ | Office | Vascular Surgery | Bill Arevalo DNP | | | 2019 | Visit | | [address] | | | | | | [place] | | | | | | [address] | | | | | | | | +--------+ + + + + | 05/22/ | Office | Nephrology | Mariana Cortez W, | | | 2020 | Visit | | [address] | | | | | | [address] [place] | | | | | | [place] [address] | | | | | | [phone] | | | | | | | | +--------+ + + + + documented as of this encounter Visit Diagnoses + + | Diagnosis | + + | Extrinsic asthma, unspecified asthma severity, unspecified whether complicated, | | unspecified whether persistent - Primary | + + | Allergic rhinitis due to dust mite | + + | Allergic rhinitis due to animal hair and dander, unspecified chronicity | + + | Non-seasonal allergic rhinitis due to pollen, unspecified chronicity | + + documented in this encounter"
--- OUTSIDE RECORDS SUMMARY | ~2019-11-09 | XMS | Encounter Summary ---
Demographics + + + | Address | [address] | | | [place] [address] | + + + | Home Phone | | + + + | Preferred Language | Unknown | + + + | Marital Status | Single | + + + | Orthodox Affiliation | Unknown | + + + | Race | or | + + + | Ethnic Group | Not or | + + + Author + + + | Author | [facility] | | | and [place] | + + + | Organization | [facility] | | | [...] Team Providers + +------+ + | Care Digital Camera Technician Name | Role | Phone | + +------+ + PCP | Unavailable | + +------+ + Encounter Details +--------+ + + + + | Date | Type | Department | Care Team | Description | +--------+ + + + + | 12/27/ | Abstract | [facility] [place] | Mariana Cortez W, | | | 2013 | | NEPHROLOGY [address] | MD [address] | | | | | [address] | [address] [place] | | | | | [place], [place] | [place] [address] | | | | | [address] | [phone] | | | | | [phone] | | | +--------+ + + + + Social History + +-------+ [...] [place] | | | | | | [address] | | | | | | | | +--------+ + + + + | 01/17/ | Office | Vascular Surgery | Bill Arevalo DNP | | | 2019 | Visit | | [address] | | | | | | [place] | | | | | | [address] | | | | | | | | +--------+ + + + + | 05/22/ | Office | Nephrology | Mariana Cortez W, | | | 2020 | Visit | | [address] | | | | | | [address] [place] | | | | | | [place] [address] | | | | | | [phone] | | | | | | | | +--------+ + + + + documented as of this encounter Procedures + +--------+ + + + | Procedure Name | Priori | Date/Time | Associated Diagnosis | Comments | | | ty | | | | + +--------+ + + + | EXTERNAL LAB: LEVI | Routin | 12/26/2013 | | Results for this | | | e | | | procedure are in the | | | | | | results section. | + +--------+ + + + | EXTERNAL LAB: | Routin | 12/26/2013 | | Results for this | | GLUCOSE | e | | | procedure are in the | | | | | | results section. | + +--------+ + + + | EXTERNAL LAB: ALT | Routin | 12/26/2013 | | Results for this | | | e | | | procedure are in the | | | | | | results section. | + +--------+ + + + | EXTERNAL LAB: AST | Routin | 12/26/2013 | | Results for this | | | e | | | procedure are in the | | | | | | results section. | + +--------+ + + + | EXTERNAL LAB: | Routin | 12/26/2013 | | Results for this | | ALKALINE PHOSPHATASE | e | | | procedure are in the | | | | | | results section. | + +--------+ + + + | EXTERNAL LAB: | Routin | 12/26/2013 | | Results for this | | BILIRUBIN, TOTAL | e | | | procedure are in the | | | | | | results section. | + +--------+ + + + | EXTERNAL LAB: | Routin | 12/26/2013 | | Results for this | | ALBUMIN | e | | | procedure are in the | | | | | | results section. | + +--------+ + + + | EXTERNAL LAB: | Routin | 12/26/2013 | | Results for this | | PHOSPHORUS | e | | | procedure are in the | | | | | | results section. | + +--------+ + + + | EXTERNAL LAB: | Routin | 12/26/2013 | | Results for this | | CALCIUM | e | | | procedure are in the | | | | | | results section. | + +--------+ + + + | EXTERNAL LAB: CARBON | Routin | 12/26/2013 | | Results for this | | DIOXIDE | e | | | procedure are in the | | | | | | results section. | + +--------+ + + + | EXTERNAL LAB: | Routin | 12/26/2013 | | Results for this | | CHLORIDE | e | | | procedure are in the | | | | | | results section. | + +--------+ + + + | EXTERNAL LAB: | Routin | 12/26/2013 | | Results for this | | POTASSIUM | e | | | procedure are in the | | | | | | results section. | + +--------+ + + + | EXTERNAL LAB: SODIUM | Routin | 12/26/2013 | | Results for this | | | e | | | procedure are in the | | | | | | results section. | + +--------+ + + + | EXTERNAL LAB: | Routin | 12/26/2013 | | Results for this | | TRIGLYCERIDES | e | | | procedure are in the | | | | | | results section. | + +--------+ + + + | EXTERNAL LAB: | Routin | 12/26/2013 | | Results for this | | CHOLESTEROL, HDL | e | | | procedure are in the | | | | | | results section. | + +--------+ + + + | EXTERNAL LAB: | Routin | 12/26/2013 | | Results for this | | CHOLESTEROL, TOTAL | e | | | procedure are in the | | | | | | results section. | + +--------+ + + + | EXTERNAL LAB: | Routin | 12/26/2013 | | Results for this | | CHOLESTEROL, LDL | e | | | procedure are in the | | | | | | results section. | + +--------+ + + + | EXTERNAL LAB: EGFR | Routin | 12/26/2013 | | Results for this | | | e | | | procedure are in the | | | | | | results section. | + +--------+ + + + | EXTERNAL LAB: | Routin | 12/26/2013 | | Results for this | | CREATININE | e | | | procedure are in the | | | | | | results section. | + +--------+ + + + documented in this encounter Results External Lab: LEVI (12/26/2013) + +--------+ + + + | Component | Value | Ref Range | Performed | Pathologist | | | | | At | Signature | + +--------+ + + + | LEVI, | 56 (A) | 6 - 23 | EXTERNAL | | | External | | | LAB | | + +--------+ + + + + + | Resulting Agency Comment | + + | [facility] | + + + +---------+ + + | Performing | Address | City/State/Zipcode | Phone Number | | Organization | | | | + +---------+ + + | EXTERNAL LAB | | | | + +---------+ + + External Lab: Glucose (12/26/2013) + +---------+ + + + | Component | Value | Ref Range | Performed | Pathologist | | | | | At | Signature | + +---------+ + + + | Glucose, | 313 (A) | 70 - 100 | EXTERNAL | | | External | | | LAB | | + +---------+ + + + + + | Resulting Agency Comment | + + | [facility] | + + + +---------+ + + | Performing | Address | City/State/Zipcode | Phone Number | | Organization | | | | + +---------+ + + | EXTERNAL LAB | | | | + +---------+ + + External Lab: ALT (12/26/2013) + +-------+ + + + | Component | Value | Ref Range | Performed | Pathologist | | | | | At | Signature | + +-------+ + + + | ALT, | 8 | 7 - 52 | EXTERNAL | | | External | | | LAB | | + +-------+ + + + + + | Resulting Agency Comment | + + | [facility] | + + + +---------+ + + | Performing | Address | City/State/Zipcode | Phone Number | | Organization | | | | + +---------+ + + | EXTERNAL LAB | | | | + +---------+ + + External Lab: AST (12/26/2013) + +-------+ + + + | Component | Value | Ref Range | Performed | Pathologist | | | | | At | Signature | + +-------+ + + + | AST, | 7 | 7 - 52 | EXTERNAL | | | External | | | LAB | | + +-------+ + + + + + | Resulting Agency Comment | + + | [facility] | + + + +---------+ + + | Performing | Address | City/State/Zipcode | Phone Number | | Organization | | | | + +---------+ + + | EXTERNAL LAB | | | | + +---------+ + + External Lab: Alkaline Phosphatase (12/26/2013) + +-------+ + + + | Component | Value | Ref Range | Performed | Pathologist | | | | | At | Signature | + +-------+ + + + | ALP, | 87 | 30 - 128 | EXTERNAL | | | External | | | LAB | | + +-------+ + + + + + | Resulting Agency Comment | + + | [facility] | + + + +---------+ + + | Performing | Address | City/State/Zipcode | Phone Number | | Organization | | | | + +---------+ + + | EXTERNAL LAB | | | | + +---------+ + + External Lab: Bilirubin, Total (12/26/2013) + +-------+ + + + | Component | Value | Ref Range | Performed | Pathologist | | | | | At | Signature | + +-------+ + + + | Bilirubin, | 0.2 | 0 - 1.2 | EXTERNAL | | | Total, | | | LAB | | | External | | | | | + +-------+ + + + + + | Resulting Agency Comment | + + | [facility] | + + + +---------+ + + | Performing | Address | City/State/Zipcode | Phone Number | | Organization | | | | + +---------+ + + | EXTERNAL LAB | | | | + +---------+ + + External Lab: Albumin (12/26/2013) + +-------+ + + + | Component | Value | Ref Range | Performed | Pathologist | | | | | At | Signature | + +-------+ + + + | Albumin, | 3.6 | 3.5 - 5 | EXTERNAL | | | External | | | LAB | | + +-------+ + + + + + | Resulting Agency Comment | + + | [facility] | + + + +---------+ + + | Performing | Address | City/State/Zipcode | Phone Number | | Organization | | | | + +---------+ + + | EXTERNAL LAB | | | | + +---------+ + + External Lab: Phosphorus (12/26/2013) + +-------+ + + + | Component | Value | Ref Range | Performed | Pathologist | | | | | At | Signature | + +-------+ + + + | Phosphorus, | 3.8 | 2.5 - 5 | EXTERNAL | | | External | | | LAB | | + +-------+ + + + + + | Resulting Agency Comment | + + | [facility] | + + + +---------+ + + | Performing | Address | City/State/Zipcode | Phone Number | | Organization | | | | + +---------+ + + | EXTERNAL LAB | | | | + +---------+ + + External Lab: Calcium (12/26/2013) + +-------+ + + + | Component | Value | Ref Range | Performed | Pathologist | | | | | At | Signature | + +-------+ + + + | Calcium, | 9.3 | 8.4 - 10.2 | EXTERNAL | | | External | | | LAB | | + +-------+ + + + + + | Resulting Agency Comment | + + | [facility] | + + + +---------+ + + | Performing | Address | City/State/Zipcode | Phone Number | | Organization | | | | + +---------+ + + | EXTERNAL LAB | | | | + +---------+ + + External Lab: Carbon Dioxide (12/26/2013) + +-------+ + + + | Component | Value | Ref Range | Performed | Pathologist | | | | | At | Signature | + +-------+ + + + | Carbon | 22 | 19 - 31 | EXTERNAL | | | Dioxide, | | | LAB | | | External | | | | | + +-------+ + + + + + | Resulting Agency Comment | + + | [facility] | + + + +---------+ + + | Performing | Address | City/State/Zipcode | Phone Number | | Organization | | | | + +---------+ + + | EXTERNAL LAB | | | | + +---------+ + + External Lab: Chloride (12/26/2013) + +-------+ + + + | Component | Value | Ref Range | Performed | Pathologist | | | | | At | Signature | + +-------+ + + + | Chloride, | 106 | 95 - 112 | EXTERNAL | | | External | | | LAB | | + +-------+ + + + + + | Resulting Agency Comment | + + | [facility] | + + + +---------+ + + | Performing | Address | City/State/Zipcode | Phone Number | | Organization | | | | + +---------+ + + | EXTERNAL LAB | | | | + +---------+ + + External Lab: Potassium (12/26/2013) + +---------+ + + + | Component | Value | Ref Range | Performed | Pathologist | | | | | At | Signature | + +---------+ + + + | Potassium, | 5.8 (A) | 3.6 - 5.1 | EXTERNAL | | | External | | | LAB | | + +---------+ + + + + + | Resulting Agency Comment | + + | [facility] | + + + +---------+ + + | Performing | Address | City/State/Zipcode | Phone Number | | Organization | | | | + +---------+ + + | EXTERNAL LAB | | | | + +---------+ + + External Lab: Sodium (12/26/2013) + +---------+ + + + | Component | Value | Ref Range | Performed | Pathologist | | | | | At | Signature | + +---------+ + + + | Sodium, | 130 (A) | 132 - 143 | EXTERNAL | | | External | | | LAB | | + +---------+ + + + + + | Resulting Agency Comment | + + | [facility] | + + + +---------+ + + | Performing | Address | City/State/Zipcode | Phone Number | | Organization | | | | + +---------+ + + | EXTERNAL LAB | | | | + +---------+ + + External Lab: Triglycerides (12/26/2013) + +---------+ + + + | Component | Value | Ref Range | Performed | Pathologist | | | | | At | Signature | + +---------+ + + + | Triglycerid | 475 (A) | 30 - 150 | EXTERNAL | | | es, | | | LAB | | | External | | | | | + +---------+ + + + + + | Specimen | + + | Blood specimen | | (specimen) | + + + + | Resulting Agency Comment | + + | [facility] | + + + +---------+ + + | Performing | Address | City/State/Zipcode | Phone Number | | Organization | | | | + +---------+ + + | EXTERNAL LAB | | | | + +---------+ + + External Lab: Cholesterol, HDL (12/26/2013) + +-------+ + + + | Component | Value | Ref Range | Performed | Pathologist | | | | | At | Signature | + +-------+ + + + | HDL | 40.4 | 40 | EXTERNAL | | | Cholesterol | | | LAB | | | , External | | | | | + +-------+ + + + + + | Specimen | + + | Blood specimen | | (specimen) | + + + + | Resulting Agency Comment | + + | [facility] | + + + +---------+ + + | Performing | Address | City/State/Zipcode | Phone Number | | Organization | | | | + +---------+ + + | EXTERNAL LAB | | | | + +---------+ + + External Lab: Cholesterol, Total (12/26/2013) + +---------+ + + + | Component | Value | Ref Range | Performed | Pathologist | | | | | At | Signature | + +---------+ + + + | Cholesterol | 283 (A) | 200 | EXTERNAL | | | , Total, | | | LAB | | | External | | | | | + +---------+ + + + + + | Specimen | + + | Blood specimen | | (specimen) | + + + + | Resulting Agency Comment | + + | [facility] | + + + +---------+ + + | Performing | Address | City/State/Zipcode | Phone Number | | Organization | | | | + +---------+ + + | EXTERNAL LAB | | | | + +---------+ + + External Lab: Cholesterol, LDL (12/26/2013) + +-------+ + + + | Component | Value | Ref Range | Performed | Pathologist | | | | | At | Signature | + +-------+ + + + | LDL | - | | EXTERNAL | | | Cholesterol | | | LAB | | | , Direct, | | | | | | External | | | | | + +-------+ + + + + + | Specimen | + + | Blood specimen | | (specimen) | + + + + | Resulting Agency Comment | + + | [facility] | + + + +---------+ + + | Performing | Address | City/State/Zipcode | Phone Number | | Organization | | | | + +---------+ + + | EXTERNAL LAB | | | | + +---------+ + + External Lab: eGFR (12/26/2013) + +--------+ + + + | Component | Value | Ref Range | Performed | Pathologist | | | | | At | Signature | + +--------+ + + + | eGFR, | 37 (A) | 60 | EXTERNAL | | | External | | | LAB | | + +--------+ + + + | eGFR, | | | EXTERNAL | | | | | | LAB | | | [place], | | | | | | External | | | | | + +--------+ + + + + + | Specimen | + + | Blood specimen | | (specimen) | + + + + | Resulting Agency Comment | + + | [facility] | + + + +---------+ + + | Performing | Address | City/State/Zipcode | Phone Number | | Organization | | | | + +---------+ + + | EXTERNAL LAB | | | | + +---------+ + + External Lab: Creatinine (12/26/2013) + + + + + + | Component | Value | Ref Range | Performed | Pathologist | | | | | At | Signature | + + + + + + | Creatinine, | 1.53 (A) | 0.6 - 1.35 | EXTERNAL | | | External | | | LAB | | + + + + + + + + | Specimen | + + | Blood specimen | | (specimen) | + + + + | Resulting Agency Comment | + + | [facility] | + + + +---------+ + + | Performing | Address | City/State/Zipcode | Phone Number | | Organization | | | | + +---------+ + + | EXTERNAL LAB | | | | + +---------+ + + documented in this encounter Visit Diagnoses Not on filedocumented in this encounter"
--- OUTSIDE RECORDS SUMMARY | ~2019-11-09 | XMS | Encounter Summary ---
Demographics + + + | Address | [address] | | | [place] [address] | + + + | Home Phone | | + + + | Preferred Language | Unknown | + + + | Marital Status | Single | + + + | Yazdanism Affiliation | Unknown | + + + | Race | or | + + + | Ethnic Group | Not or | + + + Author + + + | Author | [facility] | | | and [place] | + + + | Organization | [facility] | | | [...] Team Providers + +------+ + | Care License Issuer Name | Role | Phone | + +------+ + | Ronel Jacobson PA-C | PCP | | + +------+ + Encounter Details +--------+ + + + + | Date | Type | Department | Care Team | Description | +--------+ + + + + | 03/12/ | Abstract | [facility] | Mariana Cortez W, | | | 2015 | | NEPHROLOGY [address] | [address] | | | | | [address] | [address] [place] | | | | | [place], [place] | [place] [address] | | | | | [address] | [phone] | | | | | [phone] | | | +--------+ + + + + Social History + + + +--------+ + | Tobacco Use | Types | Packs/Day | Years | Date | | | | | Used | | + + + +--------+ + | Former Smoker | Cigarettes | | | Quit: 09/23/2012 | + + + +--------+ + + +---+---+---+ | Smokeless Tobacco: | | | | | Never Used | | | | + +---+---+---+ + + | Comments: smokes occassionally | + + + + +---------+ + [...] [place] | | | | | | [address] | | | | | | | | +--------+ + + + + | 01/17/ | Office | Vascular Surgery | Bill Arevalo DNP | | | 2019 | Visit | | [address] | | | | | | [place] | | | | | | [address] | | | | | | | | +--------+ + + + + | 05/22/ | Office | Nephrology | Mariana Cortez W, | | | 2020 | Visit | | [address] | | | | | | [address] [place] | | | | | | [place] [address] | | | | | | [phone] | | | | | | | | +--------+ + + + + documented as of this encounter Procedures + +--------+ + + + | Procedure Name | Priori | Date/Time | Associated Diagnosis | Comments | | | ty | | | | + +--------+ + + + | EXTERNAL LAB: BUN | Routin | 03/08/2015 | | Results for this | | | e | | | procedure are in the | | | | | | results section. | + +--------+ + + + | EXTERNAL LAB: | Routin | 03/08/2015 | | Results for this | | GLUCOSE | e | | | procedure are in the | | | | | | results section. | + +--------+ + + + | EXTERNAL LAB: ALT | Routin | 03/08/2015 | | Results for this | | | e | | | procedure are in the | | | | | | results section. | + +--------+ + + + | EXTERNAL LAB: AST | Routin | 03/08/2015 | | Results for this | | | e | | | procedure are in the | | | | | | results section. | + +--------+ + + + | EXTERNAL LAB: | Routin | 03/08/2015 | | Results for this | | ALKALINE PHOSPHATASE | e | | | procedure are in the | | | | | | results section. | + +--------+ + + + | EXTERNAL LAB: | Routin | 03/08/2015 | | Results for this | | BILIRUBIN, TOTAL | e | | | procedure are in the | | | | | | results section. | + +--------+ + + + | EXTERNAL LAB: | Routin | 03/08/2015 | | Results for this | | ALBUMIN | e | | | procedure are in the | | | | | | results section. | + +--------+ + + + | EXTERNAL LAB: | Routin | 03/08/2015 | | Results for this | | PROTEIN, TOTAL | e | | | procedure are in the | | | | | | results section. | + +--------+ + + + | EXTERNAL LAB: | Routin | 03/08/2015 | | Results for this | | CALCIUM | e | | | procedure are in the | | | | | | results section. | + +--------+ + + + | EXTERNAL LAB: CARBON | Routin | 03/08/2015 | | Results for this | | DIOXIDE | e | | | procedure are in the | | | | | | results section. | + +--------+ + + + | EXTERNAL LAB: | Routin | 03/08/2015 | | Results for this | | CHLORIDE | e | | | procedure are in the | | | | | | results section. | + +--------+ + + + | EXTERNAL LAB: | Routin | 03/08/2015 | | Results for this | | POTASSIUM | e | | | procedure are in the | | | | | | results section. | + +--------+ + + + | EXTERNAL LAB: SODIUM | Routin | 03/08/2015 | | Results for this | | | e | | | procedure are in the | | | | | | results section. | + +--------+ + + + | EXTERNAL LAB: | Routin | 03/08/2015 | | Results for this | | VITAMIN D, | e | | | procedure are in the | | 25-HYDROXY | | | | results section. | + +--------+ + + + | EXTERNAL LAB: | Routin | 03/08/2015 | | Results for this | | URINALYSIS | e | | | procedure are in the | | | | | | results section. | + +--------+ + + + | EXTERNAL LAB: ANNALISE, | Routin | 03/08/2015 | | Results for this | | INTACT | e | | | procedure are in the | | | | | | results section. | + +--------+ + + + | EXTERNAL LAB: EGFR | Routin | 03/08/2015 | | Results for this | | | e | | | procedure are in the | | | | | | results section. | + +--------+ + + + | EXTERNAL LAB: | Routin | 03/08/2015 | | Results for this | | CREATININE | e | | | procedure are in the | | | | | | results section. | + +--------+ + + + documented in this encounter Results External Lab: PTH, Intact (03/08/2015) + +-------+ + + + | Component | Value | Ref Range | Performed | Pathologist | | | | | At | Signature | + +-------+ + + + | PTH Intact, | 14.44 | | | | | External | | | | | + +-------+ + + + + + | Specimen | + + | | + + External Lab: BUN (03/08/2015) + +--------+ + + + | Component | Value | Ref Range | Performed | Pathologist | | | | | At | Signature | + +--------+ + + + | BUN, | 40 (A) | 6 - 23 | EXTERNAL | | | External | | | LAB | | + +--------+ + + + + +---------+ + + | Performing | Address | City/State/Zipcode | Phone Number | | Organization | | | | + +---------+ + + | EXTERNAL LAB | | | | + +---------+ + + External Lab: Glucose (03/08/2015) + +---------+ + + + | Component | Value | Ref Range | Performed | Pathologist | | | | | At | Signature | + +---------+ + + + | Glucose, | 224 (A) | 70 - 100 | EXTERNAL | | | External | | | LAB | | + +---------+ + + + + +---------+ + + | Performing | Address | City/State/Zipcode | Phone Number | | Organization | | | | + +---------+ + + | EXTERNAL LAB | | | | + +---------+ + + External Lab: ALT (03/08/2015) + +-------+ + + + | Component | Value | Ref Range | Performed | Pathologist | | | | | At | Signature | + +-------+ + + + | ALT, | 7 | | EXTERNAL | | | External | | | LAB | | + +-------+ + + + + +---------+ + + | Performing | Address | City/State/Zipcode | Phone Number | | Organization | | | | + +---------+ + + | EXTERNAL LAB | | | | + +---------+ + + External Lab: AST (03/08/2015) + +-------+ + + + | Component | Value | Ref Range | Performed | Pathologist | | | | | At | Signature | + +-------+ + + + | AST, | 6 | | EXTERNAL | | | External | | | LAB | | + +-------+ + + + + +---------+ + + | Performing | Address | City/State/Zipcode | Phone Number | | Organization | | | | + +---------+ + + | EXTERNAL LAB | | | | + +---------+ + + External Lab: Alkaline Phosphatase (03/08/2015) + +-------+ + + + | Component | Value | Ref Range | Performed | Pathologist | | | | | At | Signature | + +-------+ + + + | ALP, | 76 | | EXTERNAL | | | External | | | LAB | | + +-------+ + + + + +---------+ + + | Performing | Address | City/State/Zipcode | Phone Number | | Organization | | | | + +---------+ + + | EXTERNAL LAB | | | | + +---------+ + + External Lab: Bilirubin, Total (03/08/2015) + +-------+ + + + | Component | Value | Ref Range | Performed | Pathologist | | | | | At | Signature | + +-------+ + + + | Bilirubin, | 0.3 | 0 - 1.2 | EXTERNAL | | | Total, | | | LAB | | | External | | | | | + +-------+ + + + + +---------+ + + | Performing | Address | City/State/Zipcode | Phone Number | | Organization | | | | + +---------+ + + | EXTERNAL LAB | | | | + +---------+ + + External Lab: Albumin (03/08/2015) + +---------+ + + + | Component | Value | Ref Range | Performed | Pathologist | | | | | At | Signature | + +---------+ + + + | Albumin, | 3.3 (A) | 3.5 - 5 | EXTERNAL | | | External | | | LAB | | + +---------+ + + + + +---------+ + + | Performing | Address | City/State/Zipcode | Phone Number | | Organization | | | | + +---------+ + + | EXTERNAL LAB | | | | + +---------+ + + External Lab: Protein, Total (03/08/2015) + +-------+ + + + | Component | Value | Ref Range | Performed | Pathologist | | | | | At | Signature | + +-------+ + + + | Protein, | 6.1 | 6 - 8 | EXTERNAL | | | Total, | | | LAB | | | External | | | | | + +-------+ + + + + +---------+ + + | Performing | Address | City/State/Zipcode | Phone Number | | Organization | | | | + +---------+ + + | EXTERNAL LAB | | | | + +---------+ + + External Lab: Calcium (03/08/2015) + +-------+ + + + | Component | Value | Ref Range | Performed | Pathologist | | | | | At | Signature | + +-------+ + + + | Calcium, | 8.8 | 8.4 - 10.2 | EXTERNAL | | | External | | | LAB | | + +-------+ + + + + +---------+ + + | Performing | Address | City/State/Zipcode | Phone Number | | Organization | | | | + +---------+ + + | EXTERNAL LAB | | | | + +---------+ + + External Lab: Carbon Dioxide (03/08/2015) + +-------+ + + + | Component | Value | Ref Range | Performed | Pathologist | | | | | At | Signature | + +-------+ + + + | Carbon | 20 | 19 - 31 | EXTERNAL | | | Dioxide, | | | LAB | | | External | | | | | + +-------+ + + + + +---------+ + + | Performing | Address | City/State/Zipcode | Phone Number | | Organization | | | | + +---------+ + + | EXTERNAL LAB | | | | + +---------+ + + External Lab: Chloride (03/08/2015) + +-------+ + + + | Component | Value | Ref Range | Performed | Pathologist | | | | | At | Signature | + +-------+ + + + | Chloride, | 102 | 100 - 110 | EXTERNAL | | | External | | | LAB | | + +-------+ + + + + +---------+ + + | Performing | Address | City/State/Zipcode | Phone Number | | Organization | | | | + +---------+ + + | EXTERNAL LAB | | | | + +---------+ + + External Lab: Potassium (03/08/2015) + +---------+ + + + | Component | Value | Ref Range | Performed | Pathologist | | | | | At | Signature | + +---------+ + + + | Potassium, | 5.3 (A) | 3.5 - 5.1 | EXTERNAL | | | External | | | LAB | | + +---------+ + + + + +---------+ + + | Performing | Address | City/State/Zipcode | Phone Number | | Organization | | | | + +---------+ + + | EXTERNAL LAB | | | | + +---------+ + + External Lab: Sodium (03/08/2015) + +---------+ + + + | Component | Value | Ref Range | Performed | Pathologist | | | | | At | Signature | + +---------+ + + + | Sodium, | 132 (A) | 135 - 145 | EXTERNAL | | | External | | | LAB | | + +---------+ + + + + +---------+ + + | Performing | Address | City/State/Zipcode | Phone Number | | Organization | | | | + +---------+ + + | EXTERNAL LAB | | | | + +---------+ + + External Lab: Vitamin D, 25-Hydroxy (03/08/2015) + +-------+ + + + | Component | Value | Ref Range | Performed | Pathologist | | | | | At | Signature | + +-------+ + + + | Vitamin D, | 30 | 30 - 100 | EXTERNAL | | | 25-Hydroxy, | | | LAB | | | External | | | | | + +-------+ + + + + + | Specimen | + + | Blood specimen | | (specimen) | + + + +---------+ + + | Performing | Address | City/State/Zipcode | Phone Number | | Organization | | | | + +---------+ + + | EXTERNAL LAB | | | | + +---------+ + + External Lab: Urinalysis (03/08/2015) + + + + + + | Component | Value | Ref Range | Performed | Pathologist | | | | | At | Signature | + + + + + + | UA Blood, | negative | | EXTERNAL | | | External | | | LAB | | + + + + + + | UA Glucose, | 1,000 (A) | 0 | EXTERNAL | | | External | | | LAB | | + + + + + + | UA Ketones, | negative | | EXTERNAL | | | External | | | LAB | | + + + + + + | UA Ph, | 5.0 | | EXTERNAL | | | External | | | LAB | | + + + + + + | UA | 100 (A) | 0 | EXTERNAL | | | Proteins, | | | LAB | | | External | | | | | + + + + + + | UA RBC, | 0-1 | | EXTERNAL | | | External | | | LAB | | + + + + + + | UA Specific | 1.024 | | EXTERNAL | | | [place], | | | LAB | | | External | | | | | + + + + + + | UA | trace | | EXTERNAL | | | Leukocyte | | | LAB | | | Esterase, | | | | | | External | | | | | + + + + + + + +---------+ + + | Performing | Address | City/State/Zipcode | Phone Number | | Organization | | | | + +---------+ + + | EXTERNAL LAB | | | | + +---------+ + + External Lab: eGFR (03/08/2015) + +--------+ + + + | Component | Value | Ref Range | Performed | Pathologist | | | | | At | Signature | + +--------+ + + + | eGFR, | 50 (A) | 60 | EXTERNAL | | | External | | | LAB | | + +--------+ + + + + + | Specimen | + + | Blood specimen | | (specimen) | + + + +---------+ + + | Performing | Address | City/State/Zipcode | Phone Number | | Organization | | | | + +---------+ + + | EXTERNAL LAB | | | | + +---------+ + + External Lab: Creatinine (03/08/2015) + +-------+ + + + | Component | Value | Ref Range | Performed | Pathologist | | | | | At | Signature | + +-------+ + + + | Creatinine, | 1.18 | 0.6 - 1.3 | EXTERNAL | | | External | | | LAB | | + +-------+ + + + + + | Specimen | + + | Blood specimen | | (specimen) | + + + +---------+ + + | Performing | Address | City/State/Zipcode | Phone Number | | Organization | | | | + +---------+ + + | EXTERNAL LAB | | | | + +---------+ + + documented in this encounter Visit Diagnoses Not on filedocumented in this encounter"
--- OUTSIDE RECORDS SUMMARY | ~2019-11-09 | XMS | Encounter Summary ---
Demographics + + + | Address | [address] | | | [place] [address] | + + + | Home Phone | | + + + | Preferred Language | Unknown | + + + | Marital Status | Single | + + + | Judaism Affiliation | Unknown | + + + | Race | or | + + + | Ethnic Group | Not or | + + + Author + + + | Author | [facility] | | | and [place] | + + + | Organization | [facility] | | [...] Team Providers + +------+ + | Care Flyer Maker Name | Role | Phone | + +------+ + PCP | Unavailable | + +------+ + Encounter Details +--------+ + + + + | Date | Type | Department | Care Team | Description | +--------+ + + + + | 10/22/ | Orders Only | [facility] [place] | Mariana Cortez W, | Hyperkalemia | | 2012 | | NEPHROLOGY [address] | MD [address] | (Primary Dx) | | | | [address] | [address] [place] | | | | | [place], [place] | [place] [address] | | | | | [address] | [phone] | | | | | [phone] | | | +--------+ + + + [...] [place] | | | | | | [address] | | | | | | | | +--------+ + + + + | 01/17/ | Office | Vascular Surgery | iBll Arevalo DNP | | | 2019 | Visit | | [address] | | | | | | [place] | | | | | | [address] | | | | | | | | +--------+ + + + + | 05/22/ | Office | Nephrology | Mariana Cortez, | | | 2020 | Visit | | MD [address] | | | | | | [address] [place] | | | | | | [place] [address] | | | | | | [phone] | | | | | | | | +--------+ + + + + documented as of this encounter Visit Diagnoses + + | Diagnosis | + + | Hyperkalemia - Primary Hyperpotassemia | + + documented in this encounter"
--- OUTSIDE RECORDS SUMMARY | ~2019-11-09 | XMS | Encounter Summary ---
Demographics + + + | Address | [address] | | | [place] [address] | + + + | Home Phone | | + + + | Preferred Language | Unknown | + + + | Marital Status | Single | + + + | Evangelical Affiliation | Unknown | + + + | Race | or | + + + | Ethnic Group | Not or | + + + Author + + + | Author | [facility] | | | and [place] | + + + | Organization | [facility] | | | [...] Team Providers + +------+ + | Care Electric Shipyard Operator Name | Role | Phone | [...] [address] [place] | | | | | [place], [place] | [place] [address] | | | | | [address] | [phone] | | | | | [phone] | | | +--------+ + + + [...] [place] | | | | | | [address] | | | | | | | | +--------+ + + + + | 01/17/ | Office | Vascular Surgery | Bill Arevalo DNP | | | 2019 | Visit | | [address] | | | | | | [place] | | | | | | [address] | | | | | | | | +--------+ + + + + | 05/22/ | Office | Nephrology | Mariana Cortez W, | | | 2020 | Visit | | [address] | | | | | | [address] [place] | | | | | | [place] [address] | | | | | | [phone] | | | | | | | | +--------+ + + + + documented as of this encounter Visit Diagnoses Not on filedocumented in this encounter"
--- OUTSIDE RECORDS SUMMARY | ~2019-11-09 | XMS | Encounter Summary ---
Demographics + + + | Address | [address] | | | [place] [address] | + + + | Home Phone [...] Author + + + | Author | [facility] | | | and [place] | + + + | Organization | [facility] | | | [...] Team Providers + +------+ + | Care Associate Pastor Name | Role | Phone | + +------+ + PCP | Unavailable | + +------+ + Encounter Details +--------+ + + + + | Date | Type | Department | Care Team | Description | +--------+ + + + + | 01/18/ | Abstract | [facility] [place] | Mariana Cortez W, | | | 2012 | | NEPHROLOGY [address] | MD [address] | | | | | [address] | [address] [place] | | | | | [place], [place] | [place] [address] | | | | | [address] | [phone] | | | | | [phone] | | | +--------+ + + + [...] [place] | | | | | | [address] | | | | | | | | +--------+ + + + + | 01/17/ | Office | Vascular Surgery | Bill Arevalo DNP | | | 2019 | Visit | | [address] | | | | | | [place] | | | | | | [address] | | | | | | | | +--------+ + + + + | 05/22/ | Office | Nephrology | Mariana Cortez W, | | | 2020 | Visit | | [address] | | | | | | [address] [place] | | | | | | [place] [address] | | | | | | [phone] | | | | | | | | +--------+ + + + + documented as of this encounter Procedures + +--------+ + + + | Procedure Name | Priori | Date/Time | Associated Diagnosis | Comments | | | ty | | | | + +--------+ + + + | EXTERNAL LAB: EGFR | Routin | 01/17/2013 | | Results for this | | | e | | | procedure are in the | | | | | | results section. | + +--------+ + + + | EXTERNAL LAB: | Routin | 01/17/2013 | | Results for this | | CREATININE | e | | | procedure are in the | | | | | | results section. | + +--------+ + + + | RENAL FUNCTION PANEL | Routin | 01/17/2013 | | Results for this | | | e | | | procedure are in the | | | | | | results section. | + +--------+ + + + documented in this encounter Results Renal Function Panel (01/17/2013) + +---------+ + + + | Component | Value | Ref Range | Performed | Pathologist | | | | | At | Signature | + +---------+ + + + | Na | 131 | mmol/L | EXTERNAL | | | | | | LAB | | + +---------+ + + + | K | 5.4 | mmol/L | EXTERNAL | | | | | | LAB | | + +---------+ + + + | Cl | 101 | mmol/L | EXTERNAL | | | | | | LAB | | + +---------+ + + + | CO2 | 21 | mmol/L | EXTERNAL | | | | | | LAB | | + +---------+ + + + | BUN | 82 | mg/dL | EXTERNAL | | | | | | LAB | | + +---------+ + + + | Glucose | 177 | mg/dL | EXTERNAL | | | | | | LAB | | + +---------+ + + + | Calcium | 8.9 | mg/dL | EXTERNAL | | | | | | LAB | | + +---------+ + + + | Phosphorus | 5.5 (A) | 2.3 - 4.8 mg/dL | EXTERNAL | | | | | | LAB | | + +---------+ + + + | Albumin | 3.7 | 3.5 - 5.0 g/dL | EXTERNAL | | | | | | LAB | | + [...] + +---------+ + + External Lab: eGFR (01/17/2013) + +-------+ + + + | Component | Value | Ref Range | Performed | Pathologist | | | | | At | Signature | + +-------+ + + + | eGFR, | 40 | | EXTERNAL | | | External | | | LAB | | + +-------+ + + + | eGFR, | | | EXTERNAL | | | | | | LAB | | | [place], | | | | | | External [...] + +---------+ + + External Lab: Creatinine (01/17/2013) + +-------+ + + + | Component | Value | Ref Range | Performed | Pathologist | | | | | At | Signature | + +-------+ + + + | Creatinine, | 1.45 | | EXTERNAL | | | External [...]
--- OUTSIDE RECORDS SUMMARY | ~2019-11-09 | XMS | Encounter Summary ---
Demographics + + + | Address | [address] | | | [place] [address] | + + + | Home Phone | | + + + | Preferred Language | Unknown | + + + | Marital Status | Single | + + + | Temple Affiliation | Unknown | + + + | Race | or | + + + | Ethnic Group | Not or | + + + Author + + + | Author | [facility] | | | and [place] | + + + | Organization | [facility] | | | [...] Team Providers + +------+ + | Care Slack Line Yarder Name | Role | Phone | + [...] | | | | severity, | [place] [address] | [place], [place] | | | | | unspecified | Phone: | [address] | | | | | whether | [phone] | Phone: | | | | | complicated, | Fax: | [phone] | | | | | unspecified | [phone] | Fax: | | | | | whether | | [phone] | | | | | persistent | [...] | | | | | | | [place] | | | | | | | IMMUNOTHERAP | | | | | | | Y, ONE | | | | | | | INJECTION | | | | | | | [place] PROFES | | | | | | [...] | +--------+ + + + + | 01/20/ | Clinical | [facility] [place] | Henok Luther MD | Extrinsic asthma, | | 2019 | Support | OTOLARYNGOLOGY [address] | unspecified asthma | | | | [address] | [address] [place], [place] | severity, | | | | [place], [place] | [address] | unspecified whether | | | | [address] | | complicated, | | | | [phone] | | unspecified whether | | | | | | persistent (Primary | | | | | | Dx) | +--------+ + + + + Social [...] documented as of this encounter Progress Notes Andria Collazo RN - 01/20/2019 3:30 PM PSTPatient presents with epi-pen & inhaler. No acti ve wheezing or cough associated with asthma today. Denies delayed reaction from previous all ergy injection. No fever or allergy related rash. No recent heavy exposure to allergens. No plans for strenuous exercise immediately before or after injection today.Electronically sign ed by Andria Collazo RN at 01/20/2019 4:40 PM PSTdocumented in this encounter Plan of [...] [place] | | | | | | [address] | | | | | | | | +--------+ + + + + | 01/17/ | Office | Vascular Surgery | Bill Arevalo DNP | | | 2019 | Visit | | [address] | | | | | | [place] | | | | | | [address] | | | | | | | | +--------+ + + + + | 05/22/ | Office | Nephrology | CortezMariana gil, | | | 2020 | Visit | | [address] | | | | | | [address] [facility] | | | | | | [place] [address] | | | | | | [phone] | | | | | | | | +--------+ + + + + documented as of this encounter Visit Diagnoses + + | Diagnosis | + + | Extrinsic asthma, unspecified asthma severity, unspecified whether complicated, | | unspecified whether persistent - Primary | + + documented in this encounter"
--- OUTSIDE RECORDS SUMMARY | ~2019-11-09 | XMS | Encounter Summary ---
Demographics + + + | Address | [address] | | | [place] [address] | + + + | Home Phone [...] Author + + + | Author | [facility] | | | and [place] | + + + | Organization | [facility] | | | [...] Team Providers + +------+ + | Care Brand Engineer Name | Role | Phone | + [...] | | | | severity, | [place] [address] | [place], [place] | | | | | unspecified | Phone: | [phone] | | | | | whether | [phone] | Phone: | | | | | complicated, | Fax: | [phone] | | | | | unspecified | [phone] | Fax: | | | | | whether | | [phone] | | | | | persistent | [...] | | | | | | | [place] | | | | | | | IMMUNOTHERAP | | | | | | | Y, ONE | | | | | | | INJECTION | | | | | | | [place] PROFES | | | | | | [...] | +--------+ + + + + | 10/28/ | Clinical | [facility] [place] | [place], | Extrinsic asthma, | | 2019 | Support | OTOLARYNGOLOGY [address] | [address] | unspecified asthma | | | | [address] | [address] | severity, | | | | [place], [place] | [place], [place] | unspecified whether | | | | [address] | [address] | complicated, | | | | [phone] | | unspecified whether | | | | | | persistent (Primary | | | | | | Dx); Allergic | | | | | | rhinitis due to dust | | | | | | mite; Allergic | | | | | | rhinitis due to | | | | | | animal (cat) (dog) | | | | | | hair and dander; | | | | | | Non-seasonal | | | | | | allergic rhinitis | | | | | | due to pollen | +--------+ + + + + Social [...] encounter Progress Notes Domenica Meredith RN - 10/28/2018 11:00 AM PDTFormatting of this note might be different fro m the original. Patient presents with epi-pen & inhaler. No active wheezing or cough associated with asthma today. Denies delayed reaction from previous allergy injection. No fever or allergy related rash. No recent heavy exposure to allergens. No plans for strenuous exercise immediately be fore or after injection today. Mixed immunotherapy treatment vial for patient on 10/04/18. TREATMENT SET Kelechiella Sapna Forte Weeds & Grass: 86 10/28/2018 Allergen Extract Amount/ml Dilution Lot # Expiration Date Ragweed Mix Pigweed 0.2 C [id number] 07/03/21 Kochia 0.2 C 788880 07/17/21 Humphrey's Quarter 0.2 C 531165 07/03/21 Luther Elder 0.2 C 733701 01/13/21 Faroese Plantain 0.2 C 247936 07/17/21 False Ragweed 0.2 C 362206 03/30/21 Tajik Thistle 0.2 C 904655 07/03/21 Sagebrush 0.2 C 196088 07/17/21 Sheep [place] Dandelion 0.2 C 091831 07/03/21 Atriplex Mix 0.2 C 459925 07/03/21 #7 Grass Mix 0.2 C 497332 04/11/20 Bermuda Grass 0.2 C [id number] 06/22/21 Sameer Grass 0.2 C 317898 03/30/21 Mccormick 0.2 C 278623 01/13/21 Total Allergens: 2.8 ml. Saline: 0.2 ml. Total Volume: 3.0 ml. documented in this en counter Plan of Treatment +--------+ + + + + | Date | Type | Specialty | Care Team | Description | +--------+ + + + + | 01/17/ | Appointment | Radiology | Bill Arevalo DNP | | | 2019 | | | [address] | | | | | | [place] | | | | | | [address] | | | | | | | | +--------+ + + + + | 01/17/ | Office | Vascular Surgery | Bill Arevalo DNP | | | 2019 | Visit | | [address] | | | | | | [place] | | | | | | [address] | | | | | | | | +--------+ + + + + | 05/22/ | Office | Nephrology | Mariana Cortez, | | | 2020 | Visit | | [address] | | | | | | [address] [place] | | | | | | [place] [address] | | | | | | [phone] | | | | | | | | +--------+ + + + + +-------+ +--------+ + + | Name | Type | Priori | Associated Diagnoses | Order Schedule | | | | ty | | | +-------+ +--------+ + + | Vials | Procedures | Routin | Extrinsic asthma, | Ordered: 10/28/2018 | | | | e | unspecified asthma | | | | | | severity, | | | | | | unspecified whether | | | | | | complicated, | | | | | | unspecified whether | | | | | | persistent Allergic | | | | | | rhinitis due to | | | | | | dust mite Allergic | | | | | | rhinitis due to | | | | | | animal (cat) (dog) | | | | | | hair and dander | | | | | | Non-seasonal | | | | | | allergic rhinitis | | | | | | due to pollen | | +-------+ +--------+ + + documented as of this encounter Visit Diagnoses + + | Diagnosis | + + | Extrinsic asthma, unspecified asthma severity, unspecified whether complicated, | | unspecified whether persistent - Primary | + + | Allergic rhinitis due to dust mite | + + | Allergic rhinitis due to animal (cat) (dog) hair and dander | + + | Non-seasonal allergic rhinitis due to pollen | + + documented in this encounter"
--- OUTSIDE RECORDS SUMMARY | ~2019-11-09 | XMS | Encounter Summary ---
Demographics + + + | Address | [address] | | | [place] [address] | + + + | Home Phone | | + + + | Preferred Language | Unknown | + + + | Marital Status | Single | + + + | Baptism Affiliation | Unknown | + + + | Race | or | + + + | Ethnic Group | Not or | + + + Author + + + | Author | [facility] | | | and [place] | + + + | Organization | [facility] | | [...] Team Providers + +------+ + | Care Unhairing Machine Operator Name | Role | Phone | + +------+ + | Ronel Jacobson PA-C | PCP | | + +------+ + Reason for Referral Evaluate & Treat (Routine) +--------+ + + [...] | Allergic | Henok Calix MD | Otolaryngolog | | | Required | | rhinitis due | [address] | [address] | | | | | to animal | [address] | [address] | | | | | (cat) (dog) | [place], | [address] [place] | | | | | hair and | [place] [address] | [place] | | | | | dander | Phone: | [phone] | | | | | Non-seasonal | [phone] | Phone: | | | | | allergic | Fax: | [phone] | | | | | rhinitis due | [phone] | Fax: | | | | | to pollen | | [phone] | | | | | Extrinsic | | | | | | | asthma, | | | | | | | unspecified | | | | | | | Allergic | | | | | | | rhinitis due | | | | | | | to dust | | | | | | | mite | | | | | | | Procedures | | | | | | | [place] | | | | | | | IMMUNOTHERAP | | | | | | | Y, ONE | | | | | | | INJECTION | | | | | | | [place] | | | | | | | IMMUNOTHERAP | | | | | | | Y, 2+ | | | | | | | INJECTIONS | | | | | | | [place] PROFES | | | | | | | SVC,IMMUNOTH | | | | | | | ER,SINGLE/MU | | | | | | | LT AGS | | | +--------+ + + + + + Encounter Details +--------+ + + + + | Date | Type | Department | Care Team | Description | +--------+ + + + + | 09/10/ | Orders Only | [facility] [place] | Henok Luther MD | Allergic rhinitis | | 2017 | | [address]ARYNGOLOGY [address] | [address] | due to animal (cat) | | | | [address] | [address] [place] | (dog) hair and | | | | [place] | [address] | dander (Primary Dx); | | | | [address] | | Non-seasonal | | | | [phone] | | allergic rhinitis | | | | | | due to pollen; | | | | | | Extrinsic asthma, | | | | | | unspecified; | | | | | | Allergic rhinitis | | | | | | due to dust mite | +--------+ + + + + [...] [place] | | | | | | [address] | | | | | | | | +--------+ + + + + | 01/17/ | Office | Vascular Surgery | Bill Arevalo DNP | | | 2019 | Visit | | [address] | | | | | | [place] | | | | | | [address] | | | | | | | | +--------+ + + + + | 05/22/ | Office | Nephrology | Mariana Cortez W, | | | 2020 | Visit | | [address] | | | | | | [address] [place] | | | | | | [place] [address] | | | | | | [phone] | | | | | | | | +--------+ + + + + + + +--------+ + + | Name | Type | Priori | Associated Diagnoses | Order Schedule | | | | ty | | | + + +--------+ + + | * [facility] [place] | Outpatient | Routin | Allergic rhinitis | Ordered: 09/10/2016 | | Otolaryngology - AMB | Referral | e | due to animal (cat) | | | Referral | | | (dog) hair and | | | | | | dander Non-seasonal | | | | | | allergic rhinitis | | | | | | due to pollen | | | | | | Extrinsic asthma, | | | | | | unspecified | | | | | | Allergic rhinitis | | | | | | due to dust mite | | + + +--------+ + + documented as of this encounter Visit Diagnoses + + | Diagnosis | + + | Allergic rhinitis due to animal (cat) (dog) hair and dander - Primary | + + | Non-seasonal allergic rhinitis due to pollen | + + | Extrinsic asthma, unspecified | + + | Allergic rhinitis due to dust mite | + + documented in this encounter"
--- OUTSIDE RECORDS SUMMARY | ~2019-11-09 | XMS | Encounter Summary ---
Demographics + + + | Address | [address] | | | [place] [address] | + + + | Home Phone | | + + + | Preferred Language | Unknown | + + + | Marital Status | Single | + + + | Rastafarian Affiliation | Unknown | + + + | Race | or | + + + | Ethnic Group | Not or | + + + Author + + + | Author | [facility] | | | and [place] | + + + | Organization | [facility] | | | and [...] Team Providers + +------+ + | Care Tabular Typist Name | Role | Phone | + [...] | | | rhinitis due | [place] [address] | [address] Phone: | | | | | to animal | Phone: | [phone] | | | | | (cat) (dog) | [phone] | Fax: | | | | | hair and | Fax: | [phone] | | | | | dander | [phone] | | | | | | Allergic | | | | | | | rhinitis due | | | | | | | to dust | | | | | | | Procedures | | | | | | | [place] | | | | | | | IMMUNOTHERAP | | | | | | | Y, ONE | | | | | | | INJECTION | | | | | | | [place] | | | | | | | IMMUNOTHERAP | | | | | | | Y, 2+ | | | | | | | INJECTIONS | | | | | | | [place] PROFES | | | | | | | SVC,IMMUNOTH | | | | | | | ER,SINGLE/MU | | | | | | | LT AGS | | | +--------+ + + + + + Encounter Details +--------+ + + + + | Date | Type | Department | Care Team | Description | +--------+ + + + + | 09/16/ | Clinical | [facility] [place] | Henok Luther MD | Allergic rhinitis | | 2016 | Support | [address]OLARYNGOLOGY [address] | [address] | due to pollen | | | | [address] | [address] [place] | (Primary Dx); | | | | [place] | [address] | Allergic rhinitis | | | | [address] | | due to animal (cat) | | | | [phone] | | (dog) hair and | | | | | | dander; Unspecified | | | | | | asthma(493.90) | +--------+ + + + + Social [...] this encounter Progress Modesta Willis RN - 09/17/2015 4:16 PM PDTFormatting of this note might be differ ent from the original. Patient presents with epi-pen & inhaler. No active wheezing or cough associated with asthma today. Denies delayed reaction from previous allergy injection. No fever or allergy related rash. No recent heavy exposure to allergens. No plans for strenuous exercise immediately be fore or after injection today. Mixed one immunotherapy treatment vial for patient on 09/12/15. [facility] Sapna [place] Molds, Insects & Feathers: 88 09/17/2015 Allergen Extract Amount/ml Dilution Lot # Expiration Date Alternaria Aspergillus Cladosporium Penicillium 0.1 C 468855 03/19/18 Bipolaris Sorok. 0.1 C 560758 03/20/18 Pullulans 0.1 C 998917 03/19/18 Mucor 0.1 C 384595 10/19/17 Phoma Rhodotorula 0.1 C 795638 03/19/18 Fusarium Paecilomyces Grain Smut 0.1 C 812493 07/07/18 Grass Smut 0.1 C 385992 09/10/16 Am. Cockroach 0.1 C 931490 07/03/17 Mixed Feathers 0.1 C 025763 03/19/18 Total Allergens : 0.8 ml. Saline: 1.7 ml. Total Volume : 2.5 ml. 4:4 7 PM PDTdocumented in this encounter Plan of [...] [place] | | | | | | [address] | | | | | | | | +--------+ + + + + | 01/17/ | Office | Vascular Surgery | Bill Arevalo DNP | | | 2019 | Visit | | [address] | | | | | | [address] [place] | | | | | | [address] | | | | | | | | +--------+ + + + + | 05/22/ | Office | Nephrology | Mariana Cortez, | | | 2020 | Visit | | [address] | | | | | | [address] [place] | | | | | | [place] [address] | | | | | | [phone] | | | | | | | | +--------+ + + + + documented as of this encounter Visit Diagnoses + + | Diagnosis | + + | Allergic rhinitis due to pollen - Primary | + + | Allergic rhinitis due to animal (cat) (dog) hair and dander | + + | Unspecified asthma(493.90) Unspecified asthma | + + documented in this encounter"
--- OUTSIDE RECORDS SUMMARY | ~2019-11-09 | XMS | Encounter Summary ---
Demographics + + + | Address | [address] | | | [place] [address] | + + + | Home Phone | | + + + | Preferred Language | Unknown | + + + | Marital Status | Single | + + + | Worship Affiliation | Unknown | + + + | Race | or | + + + | Ethnic Group | Not or | + + + Author + + + | Author | [facility] | | | and [place] | + + + | Organization | [facility] | | [...] Team Providers + +------+ + | Care Library Clerk Name | Role | Phone | + [...] | | | rhinitis due | [place] [address] | [address] Phone: | | | | | to animal | Phone: | [phone] | | | | | (cat) (dog) | [phone] | Fax: | | | | | hair and | Fax: | [phone] | | | | | dander | [phone] | | | | | | Allergic [...] | +--------+ + + + + | 05/20/ | Clinical | [facility] [place] | Henok Luther MD | Allergic rhinitis | | 2016 | Support | [address]ARYNGOLOGY [address] | [address] | due to pollen | | | | [address] | [address] [place] | (Primary Dx); | | | | [place] | [address] | Allergic rhinitis | | | | [address] | | due to animal (cat) | | | | [phone] | | (dog) hair and | | | | | | dander; Non-seasonal | | | | | | allergic rhinitis | +--------+ + + + + Social [...] documented as of this encounter Progress Notes Narda Lay, RN - 05/21/2015 3:45 PM PDTPatient presents with epi-pen. Denies delayed reaction from previous allergy injection. No fever or allergy related rash. No recent heavy exposure to allergens. No plans for strenuous exercise before or after injection today.Elec tronically signed by Narda Lay RN at 05/21/2015 4:42 PM PDTdocumented in this encoun ter Plan [...] [place] | | | | | | [address] | | | | | | | | +--------+ + + + + | 01/17/ | Office | Vascular Surgery | Bill Arevalo DNP | | | 2019 | Visit | | [address] | | | | | | [place] | | | | | | [address] | | | | | | | | +--------+ + + + + | 05/22/ | Office | Nephrology | CortezMariana gil, | | | 2020 | Visit | | [address] | | | | | | [address] [place] | | | | | | [place] [address] | | | | | | [phone] | | | | | | | | +--------+ + + + + documented as of this encounter Visit Diagnoses + + | Diagnosis | + + | Allergic rhinitis due to pollen - Primary | + + | Allergic rhinitis due to animal (cat) (dog) hair and dander | + + | Non-seasonal allergic rhinitis Allergic rhinitis, cause unspecified | + + documented in this encounter"
--- OUTSIDE RECORDS SUMMARY | ~2019-11-09 | XMS | Encounter Summary ---
Demographics + + + | Address | [address] | | | [place] [address] | + + + | Home Phone | | + + + | Preferred Language | Unknown | + + + | Marital Status | Single | + + + | Mandaeism Affiliation | Unknown | + + + [...] Team Providers + +------+ + | Care Manufacturing Team Member Name | Role | Phone | + +------+ + PCP | Unavailable | + +------+ + Encounter Details +--------+ + + + + | Date | Type | Department | Care Team | Description | +--------+ + + + + | 10/18/ | Abstract | [facility] [place] | Mariana Cortez W, | | | 2012 | | NEPHROLOGY [address] | MD [address] | | | | | [address] | [address] [place] | | | | | [place], [place] | [place] [address] | | | | | [address] | [phone] | | | | | [phone] | | | +--------+ + + + [...] [place] | | | | | | [address] | | | | | | | | +--------+ + + + + | 01/17/ | Office | Vascular Surgery | Bill Arevalo DNP | | | 2019 | Visit | | [address] | | | | | | [place] | | | | | | [address] | | | | | | | | +--------+ + + + + | 05/22/ | Office | Nephrology | Mariana Cortez W, | | | 2020 | Visit | | [address] | | | | | | [address] [place] | | | | | | [place] [address] | | | | | | [phone] | | | | | | | | +--------+ + + + + documented as of this encounter Procedures + +--------+ + + + | Procedure Name | Priori | Date/Time | Associated Diagnosis | Comments | | | ty | | | | + +--------+ + + + | EXTERNAL LAB: EGFR | Routin | 10/14/2012 | | Results for this | | | e | | | procedure are in the | | | | | | results section. | + +--------+ + + + | EXTERNAL LAB: | Routin | 10/14/2012 | | Results for this | | CREATININE | e | | | procedure are in the | | | | | | results section. | + +--------+ + + + | RENAL FUNCTION PANEL | Routin | 10/14/2012 | | Results for this | | | e | | | procedure are in the | | | | | | results section. | + +--------+ + + + documented in this encounter Results Renal Function Panel (10/14/2012) + + + + + + | Component | Value | Ref Range | Performed | Pathologist | | | | | At | Signature | + + + + + + | Na | 130 (A) | 132 mmol/L | [facility] | [facility] | [facility] | | | | | | [facility]ORY | | + + + + + + | K | 5.9 (A) | 5.1 mmol/L | [facility] - | | | | | | [facility]ATORY | | + + + + + + | Cl | 103 | mmol/L | [facility] | | | [facility] - | | | | | | LAB[facility]ATORY | | + + + + + + | CO2 | 18 (A) | 19 mmol/L | [facility] | | | | | [facility] | | | | [facility] - | | | | | | LAB[facility]ATORY | | + + + + + + | Glucose | 290 (A) | 100 mg/dL | [facility] | | | | | [facility] | | | | | | [facility] | | | | [facility] - | | | | | | LABORATORY | | + + + + + + | BUN | 41 (A) | 23 mg/dL | [facility] | | [facility] | [facility] | | | | | | [facility] | | | | [facility] - | | | | | | LABORATORY | | + + + + + + | BUN/Creatin | 34.7 (A) | 28.6 | [facility] | | | [facility]e [facility] | | | [facility] | | | | | | [facility] | | | | | | [facility] - | | | | | | LABORATORY | | + + + + + + | Albumin | 3.5 | 3.5 - 5.0 g/dL | [facility] | | | | | | [facility] | | | | | | [facility] | | | | [facility] - | | | | | | LABORATORY | | + + + + + + | Calcium | 9.1 | mg/dL | [facility] | | | | [facility] | | [facility] | [facility] | [facility] | | | | [facility] - | | | | | | LABORATORY | | + + + + + + | Phosphorus | 3.5 | 2.3 - 4.8 mg/dL | [facility] | | | | | [facility] | | | | | | [facility] | | | | [facility] - | | | | | | LABORATORY | | + + + + + + + + | Specimen | + + | Blood specimen | | (specimen) | + + + + + + + | Performing | Address | City/State/Zipcode | Phone Number | | Organization | | | | + + + + + | [facility] | [address] | [place] | | | [facility] | | [address] | | | - LABORATORY | | | | + + + + + External Lab: eGFR (10/14/2012) + +--------+ + + + | Component [...] | | | LAB | | | [place], | | | | | | External | | | | | + +--------+ + + + + + | Specimen | + + | Blood specimen | | (specimen) | + + + + | Resulting Agency Comment | + + | [facility] | + + + +---------+ + + | Performing | Address | City/State/Zipcode | Phone Number | | Organization | | | | + +---------+ + + | EXTERNAL LAB | | | | + +---------+ + + External Lab: Creatinine (10/14/2012) + +-------+ + + + | Component | Value | Ref Range | Performed | Pathologist | | | | | At | Signature | + +-------+ + + + | Creatinine, | 1.18 | | EXTERNAL | | | External | | | LAB | | + +-------+ + + + + + | Specimen | + + | Blood specimen | | (specimen) | + + + + | Resulting Agency Comment | + + | [facility] | + + + +---------+ + + | Performing | Address | City/State/Zipcode | Phone Number | | Organization | | | | + +---------+ + + | EXTERNAL LAB | | | | + +---------+ + + documented in this encounter Visit Diagnoses Not on filedocumented in this encounter"
--- OUTSIDE RECORDS SUMMARY | ~2019-11-09 | XMS | Encounter Summary ---
Demographics + + + | Address | [address] | | | [place] [address] | + + + | Home Phone | | + + + | Preferred Language | Unknown | + + + | Marital Status | Single | + + + | Gnosticist Affiliation | Unknown | + + + | Race | or | + + + | Ethnic Group | Not or | + + + Author + + + | Author | [facility] | | | and [place] | + + + | Organization | [facility] | | | and [...] Team Providers + +------+ + | Care Pharmacy Coordinator Name | Role | Phone | + [...] | | | rhinitis due | [place] [address] | [address] Phone: | | | | | to animal | Phone: | [phone] | | | | | (cat) (dog) | [phone] | Fax: | | | | | hair and | Fax: | [phone] | | | | | dander | [phone] | | | | | | Allergic | | | | | | | rhinitis due | | | | | | | to dust | | | | | | | Procedures | | | | | | | [place] | | | | | | | IMMUNOTHERAP | | | | | | | Y, ONE | | | | | | | INJECTION | | | | | | | [place] | | | | | | | IMMUNOTHERAP | | | | | | | Y, 2+ | | | | | | | INJECTIONS | | | | | | | [place] PROFES | | | | | | | SVC,IMMUNOTH | | | | | | | ER,SINGLE/MU | | | | | | | LT AGS | | | +--------+ + + + + + Encounter Details +--------+ + + + + | Date | Type | Department | Care Team | Description | +--------+ + + + + | 04/02/ | Clinical | [facility] [place] | Henok Luther MD | Allergic rhinitis | | 2016 | Support | [address]ARYNGOLOGY [address] | [address] | due to pollen | | | | [address] | [address] [place] | (Primary Dx); | | | | [place] | [address] | Allergic rhinitis | | | | [address] | | due to animal (cat) | | | | [phone] | | (dog) hair and | | | | | | dander; Allergic | | | | | | rhinitis due to dust | +--------+ + + [...] encounter Progress Notes Modesta Benitez RN - 04/02/2015 4:18 PM PSTFormatting of this note might be differ ent from the original. Initiated therapy today. Patient presents inhaler. Will call epi pen to [facility] blunt and patient will bring it with her next week. No active wheezing or cough associated with asthma today. No fever or allergy related rash. No recent heavy exposure to allergens. No pl ans for strenuous exercise immediately before or after injection today. Mixed three new allergy treatment vials for patient today. TREATMENT SET [place] Weeds & Grass: 86 04/02/2015 Allergen Extract Amount/ml Dilution Lot # Expiration Date Ragweed Mix Pigweed 0.2 3 851595 08/14/17 Kochia 0.2 2 650284 01/20/18 Humphrey's Quarter 0.2 2 742603 08/14/17 Luther Elder 0.2 1 106261 01/20/18 Thai Plantain 0.2 1 069647 10/19/17 False Ragweed 0.2 2 886047 08/26/17 Afghan Thistle 0.2 4 557318 10/01/17 Sagebrush 0.2 4 495147 01/27/18 Sheep [place] Dandelion 0.2 1 704384 01/20/18 Atriplex Mix 0.2 4 772300 08/26/17 #7 Grass Mix 0.2 4 579007 10/08/16 Bermuda Grass 0.2 1 720227 11/27/16 Sameer Grass 0.2 1 539805 08/14/17 [place] 0.2 3 312610 10/01/17 Total Allergens: 2.8 ml. Saline: 0.2 ml. Total Volume: 3.0 ml. TREATMENT SET July oFrte TREES, DUST, EPIDERMAL: 87 04/02/2015 Allergen Extract Amount/mL Dilution Lot # Expiration Date Evans Mix Mower 0.2 3 377971 10/19/17 Sugar Maple [place] 0.2 3 539310 04/30/17 Lagrange 0.2 3 656059 12/02/17 Spring Birch [place] Mark Anthony 0.2 3 068299 10/19/17 Juniper 0.2 3 717919 02/14/17 Black [place] 0.2 1 880604 08/26/17 Afghan [place] 0.2 2 745914 10/01/17 Mites, Farinae 0.1 4 032488 01/21/17 Mites, Ptero. 0.1 4 740508 10/22/16 Cat Hair 0.1 1 741731 09/10/16 Dog Epi. Horse Epi Total Allergens : 1.7 ml. Saline: 0.8 ml. Total Volume: 2.5 ml. [facility] Sapna Jann Molds, Insects & Feathers: 88 04/02/2015 Allergen Extract Amount/ml Dilution Lot # Expiration Date Alternaria Aspergillus Cladosporium Penicillium Bipolaris Sorok. 0.1 1 675831 08/13/17 Pullulans 0.1 1 624482 07/03/17 Mucor 0.1 1 381338 03/04/17 Phoma Rhodotorula 0.1 3 759948 09/10/16 Fusarium Paecilomyces Grain Smut 0.1 3 285691 10/19/17 Grass Smut 0.1 1 824907 09/10/16 Am. Cockroach 0.1 4 466394 07/03/17 Mixed Feathers 0.1 1 618921 07/03/17 Total Allergens : 0.8 ml. Saline: 1.7 ml. Total Volume : 2.5 ml. documented in this encounter Plan of Treatment +--------+ [...] [place] | | | | | | [address] | | | | | | | | +--------+ + + + + | 01/17/ | Office | Vascular Surgery | Bill Arevalo DNP | | | 2019 | Visit | | [address] | | | | | | [place] | | | | | | [address] | | | | | | | | +--------+ + + + + | 05/22/ | Office | Nephrology | Mariana Cortez, | | | 2020 | Visit | | MD [address] | | | | | | [address] | | | | | | [place] [address] | | | | | | [phone] | | | | | | | | +--------+ + + + + documented as of this encounter Visit Diagnoses + + | Diagnosis | + + | Allergic rhinitis due to pollen - Primary | + + | Allergic rhinitis due to animal (cat) (dog) hair and dander | + + | Allergic rhinitis due to dust Allergic rhinitis due to other allergen | + + documented in this encounter"
--- OUTSIDE RECORDS SUMMARY | ~2019-11-09 | XMS | Encounter Summary ---
Demographics + + + | Address | [address] | | | [place] [address] | + + + | Home Phone [...] Author + + + | Author | [facility] | | | and [place] | + + + | Organization | [facility] | | | [...] Team Providers + +------+ + | Care Consulting Group Analyst Name | Role | Phone | + +------+ + | Ronel Jacobson PA-C | PCP | | + +------+ + Reason for Visit + + + | Reason | Comments | + + + | Allergies | | + + + | Immunotherapy | | + + + Evaluate & Treat (Urgent) +--------+ + + + + + | Status | Reason | Specialty | Diagnoses / | Referred By | Referred To | | | | | Procedures | Contact | Contact | +--------+ + + + + + | Closed | Specialty | Otolaryngolog | Diagnoses | Luther, | Henok Luther | | | Services | y | | Henok Calix MD | [address] | | | Required | | Non-seasonal | [address] | | | | | allergic | [address] | [address] | | | | | rhinitis due | [place], | [place], [place] | | | | | to pollen | [place] [address] | [address] Phone: | | | | | Allergic | Phone: | [phone] | | | | | rhinitis due | [phone] | Fax: | | | | | to dust | Fax: | [phone] | | | | | Mild | [phone] | | | | | | intermittent | | | | | | | asthma, | | | | | | | uncomplicate | | | | | | | d | | | | | | | Procedures | | | | | | | RI | | | | | | | IMMUNOTHERAP | | | | | | | Y, ONE | | | | | | | INJECTION | | | | | | | RI PROFES | | | | | | | SVC,IMMUNOTH | | | | | | | ER,SINGLE/MU | | | | | | | LT AGS | | | +--------+ + + + + + Encounter Details +--------+ + + + + | Date | Type | Department | Care Team | Description | +--------+ + + + + | 09/03/ | Clinical | [facility] | Henok Luther MD | Non-seasonal | | 2018 | Support | OTOLARYNGOLOGY [address] | [address] | allergic rhinitis | | | | [address] | [address] [place], [place] | due to pollen | | | | [place], [place] | [address] | (Primary Dx); | | | | [address] | | Allergic rhinitis | | | | [phone] | | due to dust; Mild | | | | | | intermittent asthma, | | | | | | uncomplicated | +--------+ + + + + Social [...] encounter Progress Notes Modesta Benitez RN - 09/03/2017 3:45 PM PDTFormatting of this note might be [...] Mixed immunotherapy treatment vial for patient on 08/27/17. TREATMENT SET [place] TREES, DUST, DANDER: 87 09/03/2017 Allergen Extract Amount/mL Dilution Lot # Expiration Date [place] Mix [place] 0.2 C [id number] 04/04/20 Sugar Maple [place] 0.2 C 992595 05/11/20 [place] 0.2 C 576395 08/08/20 Spring Birch [place] 0.2 C 644729 03/13/20 Juniper 0.2 C 083099 05/11/20 Black [place] 0.2 C 242908 02/01/20 Mites, Farinae 0.1 C 987448 09/30/18 Mites, Ptero. 0.1 C 417751 08/25/18 Cat Hair 0.1 C 581968 01/05/19 Dog Epi. Horse Epi Total Allergens : 1.5 ml. Saline: 1.0 ml. Total Volume: 2.5 ml. Mixed immunotherapy treatment vial for patient on 08/27/17. TREATMENT SET [facility] Molds, Insects & Feathers: 88 09/03/2017 Allergen Extract Amount/ml Dilution Lot # Expiration Date Alternaria Aspergillus Cladosporium Penicillium Bipolaris Sorok. 0.1 C [id number] 11/30/19 Pullulans 0.1 C 735326 02/01/20 Mucor 0.1 C [id number] 10/28/19 Phoma Rhodotorula 0.1 C 664634 11/30/19 Fusarium Paecilomyces Grain Smut 0.1 C 570101 02/01/20 Grass Smut 0.1 C 407699 02/01/20 Am. Cockroach 0.1 C 469288 11/03/19 Mixed Feathers 0.1 C 309571 02/01/20 Total Allergens: 0.8 mL Saline: 1.7 mL Total Volume: 2.5 mL documented in this encounter Plan of Treatment +--------+ + + + + | Date | Type | Specialty | Care Team | Description | +--------+ + + + + | 01/17/ | Appointment | Radiology | Bill Arevalo DNP | | | 2019 | | | [address] | | | | | | [place] | | | | | | [address] | | | | | | | | +--------+ + + + + | 01/17/ | Office | Vascular Surgery | Bill Arevalo DNP | | | 2019 | Visit | | [address] | | | | | | [place] | | | | | | [address] | | | | | | | | +--------+ + + + + | 05/22/ | Office | Nephrology | Mariana Cortez, | | | 2020 | Visit | | [address] | | | | | | [address] [place] | | | | | | [place] [address] | | | | | | [phone] | | | | | | | | +--------+ + + + + + + +--------+ + + | Name | Type | Priori | Associated Diagnoses | Order Schedule | | | | ty | | | + + +--------+ + + | * [facility] [place] | Outpatient | Routin | Non-seasonal | Ordered: 08/31/2017 | | Otolaryngology - AMB | Referral | e | allergic rhinitis | | | Referral | | | due to pollen | | | | | | Allergic rhinitis | | | | | | due to dust Mild | | | | | | intermittent asthma, | | | | | | uncomplicated | | + + +--------+ + + documented as of this encounter Visit Diagnoses + + | Diagnosis | + + | Non-seasonal allergic rhinitis due to pollen - Primary | + + | Allergic rhinitis due to dust Allergic rhinitis due to other allergen | + + | Mild intermittent asthma, uncomplicated Unspecified asthma | + + documented in this encounter"
--- OUTSIDE RECORDS SUMMARY | ~2019-11-09 | XMS | Encounter Summary ---
Demographics + + + | Address | [address] | | | [place] [address] | + + + | Home Phone | | + + + | Preferred Language | Unknown | + + + | Marital Status | Single | + + + | Anglican Affiliation | Unknown | + + + | Race | or | + + + | Ethnic Group | Not or | + + + Author + + + | Author | [facility] | | | and [place] | + + + | Organization | [facility] | | [...] Team Providers + +------+ + | Care Health Service Coordinator Name | Role | Phone | [...] | | Services | y | | Hneok Calix MD | [address] | | | Required | | Non-seasonal | [address] | | | | | allergic | [address] | [address] | | | | | rhinitis due | [place], | [place], [place] | | | | | to pollen | [place] [address] | [address] Phone: | | | | | Allergic | Phone: | [phone] | | | | | rhinitis due | [phone] | Fax: | | | | | to dust | Fax: | [phone] | | | | | Mild | [phone] | | | | | | intermittent [...] | +--------+ + + + + | 01/14/ | Clinical | [facility] | Henok Luther MD | Extrinsic asthma, | | 2018 | Support | OTOLARYNGOLOGY [address] | [address] | unspecified asthma | | | | [address] | [address] [place] | severity, | | | | [place] | [address] | unspecified whether | | | | [address] | | complicated, | | | | [phone] | | unspecified whether | | | [...] encounter Progress Notes Domenica Meredith RN - 01/14/2018 4:00 PM PSTFormatting of this note might be different fro m the original. Patient presents with epi-pen & inhaler. No active wheezing or cough associated with asthma today. Denies delayed reaction from previous allergy injection. No fever or allergy related rash. No recent heavy exposure to allergens. No plans for strenuous exercise immediately be fore or after injection today. Mixed immunotherapy treatment vial for patient on 01/14/18. [facility]AT[facility] [place] TREES, DUST, DANDER: 87 01/14/2018 Allergen Extract Amount/mL Dilution Lot # Expiration Date [place] Mix [place] 0.2 C [id number] 08/08/20 Sugar Maple [place] 0.2 C 280005 10/04/20 [place] 0.2 C 987624 08/08/20 Spring Birch [place] 0.2 C 078171 09/27/20 Juniper 0.2 C 710189 05/11/20 Black [place] 0.2 C 343991 08/08/20 Mites, Farinae 0.1 C 476336 05/03/20 Mites, Ptero. 0.1 C 260438 06/23/19 Cat Hair 0.1 C 281875 06/29/19 Dog Epi. Horse Epi Total Allergens : 1.5 ml. Saline: 1.0 ml. Total Volume: 2.5 ml. Mixed immunotherapy treatment vial for patient on 01/14/18. TREATMENT SET [facility] Molds, Insects & Feathers: 88 01/14/2018 Allergen Extract Amount/ml Dilution Lot # Expiration Date Alternaria Aspergillus Cladosporium Penicillium Bipolaris Sorok. 0.1 C [id number] 07/13/20 Pullulans 0.1 C 977288 02/01/20 Mucor 0.1 C 709114 10/25/20 Phoma Rhodotorula 0.1 C 523826 11/30/19 Fusarium Paecilomyces Grain Smut 0.1 C 930588 02/01/20 Grass Smut 0.1 C 628761 02/01/20 Am. Cockroach 0.1 C 103919 08/08/20 Mixed Feathers 0.1 C 405312 02/01/20 Total Allergens: 0.8 mL Saline: 1.7 mL Total Volume: 2.5 mL d ocumented in this encounter Plan of Treatment +--------+ + + + + | Date | Type | Specialty | Care Team | Description | +--------+ + + + + | 01/17/ | Appointment | Radiology | Bill Arevalo DNP | | | 2019 | | | [address] | | | | | | [place] | | | | | | [address] | | | | | | | | +--------+ + + + + | 01/17/ | Office | Vascular Surgery | Bill Arevalo DNP | | | 2019 | Visit | | [address] | | | | | | [place] | | | | | | [address] | | | | | | | | +--------+ + + + + | 05/22/ | Office | Nephrology | Mariana Cortez, | | | 2020 | Visit | | [address] | | | | | | [address] | | | | | | [place] [address] | | | | | | [phone] | | | | | | | | +--------+ + + + + +-------+ +--------+ + + | Name | Type | Priori | Associated Diagnoses | Order Schedule | | | | ty | | | +-------+ +--------+ + + | Vials | Procedures | Routin | Extrinsic asthma, | Ordered: 01/14/2018 | | | | e | unspecified asthma | | | | | | severity, | | | | | | unspecified whether | | | | | | complicated, | | | | | | unspecified whether | | | | | | persistent | | | | | | Non-seasonal | | | | | | allergic rhinitis | | | | | | due to pollen | | | | | | Allergic rhinitis | | | | | | due to animal (cat) | | | | | | (dog) hair and | | | | | | dander Allergic | | | | | | rhinitis due to dust | | | | | | mite | | +-------+ +--------+ + + documented [...]
--- OUTSIDE RECORDS SUMMARY | ~2019-11-09 | XMS | Encounter Summary ---
Demographics + + + | Address | [address] | | | [place] [address] | + + + | Home Phone | | + + + | Preferred Language | Unknown | + + + | Marital Status | Single | + + + | Restoration Affiliation | Unknown | + + + | Race | or | + + + | Ethnic Group | Not or | + + + Author + + + | Author | [facility] | | | and [place] | + + + | Organization | [facility] | | [...] Team Providers + +------+ + | Care Hand Compositor Name | Role | Phone | + +------+ + | Mehrdad Avalos MD | PCP | | + +------+ + Encounter Details +--------+---------+ + + + | Date | Type | Department | Care Team | Description | +--------+---------+ + + + | 09/12/ | Office | [facility] | Louie Henry, | Osteomyelitis of | | 2020 | Visit | INFECTIOUS DISEASE | Carmine Kebede MD | fifth toe of right | | | | [address] | [address] | foot (HCC) (Primary | | | | [place], [place] | [place] [address] | Dx); Acute | | | | [address] | [phone] | osteomyelitis of | | | | [phone] | | metatarsal bone, | | | | | | right (HCC); | | | | | | Polymicrobial | | | | | | bacterial infection; | | | | | | MSSA infection, | | | | | | non-invasive; Type 2 | | | | | | diabetes, | | | | | | controlled, with | | | | | | neuropathy ([facility]); | | | | | | CKD (chronic kidney | | | | | | disease) stage 3, | | | | | | GFR 30-59 ml/min | | | | | | ([facility]); Weak pulse; | | | | | | Serratia infection; | | | | | | buttermaker (current) | | | | | | use of antibiotics | +--------+---------+ + + + Social History [...] + + + | Blood Pressure | 171/94 | 09/13/2019 9:01 AM | | | | | PDT | | + + + + + | Pulse | 104 | 09/13/2019 9:01 AM | | | | | PDT | | + + + + + | Temperature | 36.7 C (98 F) | 09/13/2019 9:01 AM | | | | | PDT | | + + + + + | Respiratory Rate | 16 | 09/13/2019 9:01 AM | | | | | PDT | | + + + + + | Oxygen Saturation | 100% | 09/13/2019 9:01 AM | | | | | PDT | | + + + + + | Inhaled Oxygen | - | - | | | Concentration | | | | + + + + + | Weight | 95.7 kg (211 lb) | 09/13/2019 9:01 AM | | | | | PDT | | + + + + + | Height | 160 cm (5' 3") | 09/13/2019 9:01 AM | | | | | PDT | | + + + + + | Body Mass Index | 37.38 | 09/13/2019 9:01 AM | | | | | PDT | | + + + + + documented in this encounter Progress Notes Carmine Griggs MD - 09/13/2019 9:00 AM PDT [facility] Service: Infectious Diseases Outpatient Follow Up Note CHIEF COMPLAINT Follow up on osteomyelitis HISTORY OF PRESENT ILLNESS The patient is a 49 y.o.-year-old female presenting today for follow up. History obtained from chart review and the patient. The patient presents today for follow-up on her osteomyelitis. The patient has completed 6 weeks of antibiotic therapy with intravenous ertapenem. The patient denies recent side eff ects. She states that her wound is healing and her post adoption coordinator Dr. Cespedes was satisfied with t he progress. Her laboratory test results showed mild elevation of CRP of 5.9 (reference range 0-5), sedi mentation rate 98, normal white blood cell count, and unfortunately the patient continues to have uncontrolled glucose levels with a glucose of 413. Her creatinine is 1.4. Liver enzy mes are normal. Last visit I requested vascular studies but the patient has not completed that yet. She continues to have a chronic difficult to heal wound. Background history: The patient presents to our clinic referred by Dr. Cespedes from podiatry. The patient was rec ently seen for management of diabetic foot infection, foot ulcer, osteomyelitis of the fifth toe and also fifth metatarsal. She is a status post surgical debridement on July 28, 2019. The patient had previous management as an outpatient with oral antibiotics. She had also o utpatient cultures on that showed group B streptococcus, Staphylococcus aureus MSSA, as well as Serratia marcescens. Prior to that on June 13, 2019 she had evidence of Staphylococc us aureus MSSA on a previous culture. The patient has been started on IV antibiotic therapy with vancomycin and levofloxacin per Dr. Cespedes. She has a PICC line in place. Her most recent labs showed creatinine 1.14. She has diagnosis of chronic kidney disease also. The patient had normal electrolytes, mild inés vation white cell count of 11.5, vancomycin level 15.3 on July 28, 2019. The patient was referred to clinic for management of antibiotic therapy. Of note, the patient did not have surgical resection of the bone. She did have surgical de bridement but her ashton was left intact allowing for antibiotic therapy to hopefully treat h er infection and avoid amputation. PAST MEDICAL HISTORY Patient Active Problem List Diagnosis Type 2 diabetes mellitus with stage 3 chronic kidney disease, without long-term current use of insulin Hypertension Proteinuria CKD (chronic kidney disease) stage 3, GFR 30-59 ml/min Migraine headache Renal tubular acidosis, type 4 Smoker - Daily Obesity (BMI 35.0-39.9 without comorbidity) Duodenal ulcer Allergic asthma Organic insomnia MARYURI (obstructive sleep apnea) RLS (restless legs syndrome) Acute blood loss anemia History of anemia due to CKD Occult blood in stools History of duodenal ulcer Upper GI bleeding GAVE (gastric antral vascular ectasia) PAST SURGICAL HISTORY Past Surgical History: Procedure Laterality Date NASAL SEPTUM SURGERY Bilateral 02/24/2017 Procedure: Septoplasty, Inferior Turbinoplasty; Surgeon: Henok Luther MD; Location: [facility] OR UPPER GASTROINTESTINAL ENDOSCOPY N/A 08/18/2019 Procedure: EGD; Surgeon: Stepan Magdaleno MD; Location: [facility] [place] [facility] SOCIAL HISTORY Social History Socioeconomic History Marital status: Single Spouse name: Not on file Number of children: 0 Years of education: 13 Highest education level: Not on file Occupational History Employer: OTHER Comment: [employer] [facility] [place] Social Needs Financial resource strain: Not on file Food insecurity Worry: Not on file Inability: Not on file Transportation needs Medical: Not on file Non-medical: Not on file Tobacco Use Smoking status: Current Every Day Smoker Packs/day: 0.25 Years: 20.00 Pack years: 5.00 Types: Cigarettes Last attempt to quit: 09/23/2012 Years since quittin.9 Smokeless tobacco: Never Used Substance and Sexual Activity Alcohol use: Yes Alcohol/week: 1.0 standard drinks Types: 1 Standard drinks or equivalent per week Comment: 1 a month Drug use: No Sexual activity: Not on file Lifestyle Physical activity Days per week: Not on file Minutes per session: Not on file Stress: Not on file Relationships Social connections Talks on phone: Not on file Gets together: Not on file Attends yarsanism service: Not on file Active member of club or organization: Not on file Attends meetings of clubs or organizations: Not on file Relationship status: Not on file Intimate partner violence Fear of current or ex partner: Not on file Emotionally abused: Not on file Physically abused: Not on file Forced sexual activity: Not on file Other Topics Concern Not on file Social History Narrative Lives in house in [place] alone. FAM. HISTORY Family History Problem Relation Age of Onset Hypertension Father Stomach cancer Mother 60 Diabetes Other Diabetes Sister Hypertension Sister Diabetes Sister Hypertension Sister Diabetes Sister Hypertension Sister Hypertension Sister MEDICATIONS: Reviewed with the patient today. Patient did not bring medication list or bottles to clinic today. Current Outpatient Medications: albuterol 90 mcg/puff inhaler, Inhale 2 puffs into the lungs every 6 hours as needed., Disp: , Rfl: Alcohol Swabs 70 % PADS, by Does not apply route., Disp: , Rfl: ascorbic acid (VITAMIN C) 500 mg tablet, Take 500 mg by mouth Daily., Disp: , Rfl: B-D UF III MINI PEN NEEDLES 31G X 5 MM MIS, , Disp: , Rfl: CROW CONTOUR TEST strip, 4 strips Daily., Disp: , Rfl: Blood Glucose Monitoring Suppl (CONTOUR BLOOD GLUCOSE SYSTEM) JOANNA, by Does not apply route., Disp: , Rfl: bumetanide (BUMEX) 0.5 mg tablet, Take 2 tablets by mouth 2 times daily., Disp: 120 ta blet, Rfl: 11 cetirizine (ZYRTEC) 10 mg tablet, Take 10 mg by mouth Daily as needed for Allergies., Disp: , Rfl: cholecalciferol (VITAMIN D-3) 2000 units TABS, Take 2,000 Units by mouth Daily., Disp: , Rfl: cyanocobalamin (VITAMIN B-12) 500 mcg tablet, Take 1,000 mcg by mouth Daily., Disp: , Rfl: EPIPEN 2-IGNACIO 0.3 MG/0.3ML injection, Inject 0.3 mLs into the muscle as needed for Anap hylaxis (okay to use generic)., Disp: 2 each, Rfl: 1 ferrous sulfate 325 mg tablet, Take 325 mg by mouth daily (with breakfast)., Disp: , R fl: fluticasone (FLONASE) 50 mcg/nasal spray, 1 spray by Nasal route Twice daily as neede d., Disp: , Rfl: folic acid 1 mg tablet, Take 1 mg by mouth Daily., Disp: , Rfl: glyBURIDE (DIABETA) 5 mg tablet, Take 10 mg by mouth daily (with breakfast)., Disp: , Rfl: ipratropium (ATROVENT) 0.06% nasal spray, ipratropium bromide 42 mcg (0.06 %) nasal sp ray, Disp: , Rfl: Magnesium 400 MG CAPS, Take 400 mg by mouth Daily., Disp: , Rfl: metoprolol succinate (TOPROL-XL) 25 mg 24 hr tablet, Take 25 mg by mouth Daily., Disp: , Rfl: omeprazole (PRILOSEC) 20 mg capsule, Take 20 mg by mouth 2 times daily., Disp: , Rfl: rosuvastatin (CRESTOR) 20 mg tablet, Take 20 mg by mouth nightly., Disp: , Rfl: SEMAGLUTIDE, 1 MG/DOSE, SC, Inject 1 mg under the skin Once a week., Disp: , Rfl: sodium bicarbonate 650 mg tablet, Take 1 tablet by mouth Daily., Disp: 90 tablet, Rfl: 3 [facility] Lancets [facility], , Disp: , Rfl: Allergies Allergen Reactions Furosemide Swelling REVIEW OF SYSTEMS 12+ systems reviewed. Negative except as per HPI. PHYSICAL EXAM Vital Signs: BP (!) 171/94 | Pulse 104 | Temp 36.7 C (98 F) (Temporal) | Resp 16 | Ht 1.6 m (5' 3") | Wt 95.7 kg (211 lb) | SpO2 100% | BMI 37.38 kg/m General Appearance: Alert, cooperative, no distress. Obese. Head: Normocephalic, without obvious abnormality, atraumatic. Lips, mucosa, and tongue normal; dentition normal; no thrush present. Eyes: PERRL, conjunctiva/corneas clear, EOM's intact. Throat: Oropharynx without exudates. Neck: Supple, symmetrical, trachea midline, no adenopathy; thyroid: no enlargement/tenderness/nodules; no carotid bruit or JVD Back: Symmetric, no curvature, ROM normal, no CVA tenderness Lungs: Clear to auscultation bilaterally, respirations unlabored Chest Wall: No tenderness or deformity Heart: Regular rate. No murmurs. Abdomen: Soft, non-tender, bowel sounds active all four quadrants, no masses, no organomegaly Extremities: Extremities normal, atraumatic, no cyanosis or edema Pulses: Weak pedal pulse bilaterally. Skin: Skin color, texture, turgor normal, no rashes or lesions Lymph nodes: Cervical, supraclavicular, and axillary nodes normal Neurologic: Alert, oriented, no focal deficits. Venous access: Venous access: PICC. REVIEW OF LABS: All labs were reviewed. Results for orders placed or performed in visit on 09/08/19 Sedimentation Rate Result Value Ref Range ESR 98 (A) 0 - 20 mm/hr CBC with Differential Result Value Ref Range WBC 7.87 4.0 - 11.0 x10'3/uL Red Blood Cells 3.00 (A) 3.8 - 5.2 x10'6/uL HGB, External 9.08 (A) 12 - 16 g/dL HCT, External 27.25 (A) 35 - 45 % MCV 90.71 81 - 99 fL MCH 30.23 27 - 33 pg MCHC 33.32 30 - 36 g/dL RDW 13.18 10.5 - 16.0 % PLT, External 337 140 - 440 x10'3/uL Lymphocytes %, External 17.20 (A) 24 - 44 % Neutrophils, Absolute, External 5.83 1.3 - 7.0 K/cmm Lymphocytes, Absolute, External 1.35 0.8 - 3.1 K/cmm Neutrophils %, External 74.10 (A) 37 - 67 % Monocytes %, External 5.40 5 - 12 % Eosinophils %, External 3.10 0 - 5 % Basophils %, External 0.20 0 - 2 % Monocytes, Absolute, External 0.43 0.2 - 1.0 K/cmm Eosinophils, Absolute 0.24 0 - 0.8 K/cmm Basophils, Absolute 0.02 0.0 - 0.6 K/cmm Comprehensive Metabolic Panel Result Value Ref Range BUN/Creatinine Ratio 24.8 11.0 - 35.0 ratio Glucose 413 (A) 65 - 99 mg/dL BUN, External 34 (A) 8 - 25 mg/dL Creatinine 1.40 (A) 0.70 - 1.30 mg/dL Na 132 (A) 135 - 145 mmol/L K 4.9 3.5 - 5.3 mmol/L CO2 21 (A) 22 - 29 mmol/L Calcium 8.7 8.5 - 10.2 mg/dL Total Protein 7.5 6.2 - 8.2 g/dL Albumin, External 3.6 3.5 - 5.2 g/dL Bilirubin Total 0.2 0.1 - 1.5 mg/dL AST 18 0 - 40 U/L ALT 21 0 - 41 U/L ALP, External 137 (A) 40 - 129 U/L GFR ESTIMATE (REF) 42 (A) 60 mL/min/1.73m2 C-Reactive Protein Result Value Ref Range CRP 5.9 (A) 0 - 5 mg/L Documentation on 09/08/2019 Component Date Value Ref Range Status ESR 09/06/2019 98* 0 - 20 mm/hr Final WBC 09/06/2019 7.87 4.0 - 11.0 x10'3/uL Final Red Blood Cells 09/06/2019 3.00* 3.8 - 5.2 x10'6/uL Final HGB, External 09/06/2019 9.08* 12 - 16 g/dL Final HCT, External 09/06/2019 27.25* 35 - 45 % Final MCV 09/06/2019 90.71 81 - 99 fL Final MCH 09/06/2019 30.23 27 - 33 pg Final MCHC 09/06/2019 33.32 30 - 36 g/dL Final RDW 09/06/2019 13.18 10.5 - 16.0 % Final PLT, External 09/06/2019 337 140 - 440 x10'3/uL Final Lymphocytes %, External 09/06/2019 17.20* 24 - 44 % Final Neutrophils, Absolute, External 09/06/2019 5.83 1.3 - 7.0 K/cmm Final Lymphocytes, Absolute, External 09/06/2019 1.35 0.8 - 3.1 K/cmm Final Neutrophils %, External 09/06/2019 74.10* 37 - 67 % Final Monocytes %, External 09/06/2019 5.40 5 - 12 % Final Eosinophils %, External 09/06/2019 3.10 0 - 5 % Final Basophils %, External 09/06/2019 0.20 0 - 2 % Final Monocytes, Absolute, External 09/06/2019 0.43 0.2 - 1.0 K/cmm Final Eosinophils, Absolute 09/06/2019 0.24 0 - 0.8 K/cmm Final Basophils, Absolute 09/06/2019 0.02 0.0 - 0.6 K/cmm Final BUN/Creatinine Ratio 09/06/2019 24.8 11.0 - 35.0 ratio Final Glucose 09/06/2019 413* 65 - 99 mg/dL Final BUN, External 09/06/2019 34* 8 - 25 mg/dL Final Creatinine 09/06/2019 1.40* 0.70 - 1.30 mg/dL Final Na 09/06/2019 132* 135 - 145 mmol/L Final K 09/06/2019 4.9 3.5 - 5.3 mmol/L Final CO2 09/06/2019 21* 22 - 29 mmol/L Final Calcium 09/06/2019 8.7 8.5 - 10.2 mg/dL Final Total Protein 09/06/2019 7.5 6.2 - 8.2 g/dL Final Albumin, External 09/06/2019 3.6 3.5 - 5.2 g/dL Final Bilirubin Total 09/06/2019 0.2 0.1 - 1.5 mg/dL Final AST 09/06/2019 18 0 - 40 U/L Final ALT 09/06/2019 21 0 - 41 U/L Final ALP, External 09/06/2019 137* 40 - 129 U/L Final GFR ESTIMATE (REF) 09/06/2019 42* 60 mL/min/1.73m2 Final CRP 09/06/2019 5.9* 0 - 5 mg/L Final CrCl cannot be calculated (Patient's most recent lab result is older than the maximum 3 day s allowed.). MICROBIOLOGY Microbiology Results (Last 14 Days by Collected Date with Culture/Sensitivity) Procedure Component Value Units Date/Time Coronavirus (COVID-19) NAAT [[id number]] Order Status: No result Lab Status: No result Specimen: Tissue from Nasopharynx IMAGING No new images for review today. ASSESSMENT AND RECOMMENDATIONS The patient is a 49 y.o.-year-old female with the following problems: Visit Diagnoses and Associated Orders: Diagnoses and all orders for this visit: Osteomyelitis of fifth toe of right foot ([facility]) - PICC removal clinic Acute osteomyelitis of metatarsal bone, right ([facility]) Polymicrobial bacterial infection MSSA infection, non-invasive Type 2 diabetes, controlled, with neuropathy ([facility]) CKD (chronic kidney disease) stage 3, GFR 30-59 ml/min ([facility]) Weak pulse Serratia infection buttermaker (current) use of antibiotics 1.Patient with significant diabetic foot infection, osteomyelitis of the fifth toe as w ell as fifth metatarsal, polymicrobial infection including MSSA, group B streptococcus, Serr atia, possibly anaerobes. The patient has been treated with 6 weeks of intravenous ertapen em. At the end of her therapy, she continues to have some mild elevation of CRP, elevated sedim entation rate, her wound is making some progress but this is slow. The patient has not comp leted her vascular studies yet. The patient continues to have uncontrolled glucose levels. The patient did not have bone resection before. She must complete her vascular studies and continue to control her glucose levels, otherwis e she will continue to have a wound and she is at risk of developing chronic infection and a t risk of amputation. We will see her again in clinic in 1 month for follow-up. Continue podiatry follow-up. Co ntinue wound care. PICC line removal today. Side effects of medications, duration of therapy, prognosis and importance of adherence wer e discussed with the patient today. Follow up in 1 month. Carmine Palma MD, MPH Infectious Diseases 09/13/2019 Elisha Dunbar RN - 09/13/2019 9:00 AM PDTPICC Removal Note: S: PICC d/c order from Dr Palma O: PICC line removed from left antecubital after sterile site prepped per protocol. PICC c atheter tip visualized and intact.PICC line measures 49cm Pressure dressing applied with 4x4 gauze and secure with coban. A: No redness, ecchymosis, edema, swelling, or drainage noted at site. P: Instructions provided on post PICC discharge care, including followup notification instr uctions. documented in this encounter Plan of Treatment +--------+ + + + + | Date | Type | Specialty | Care Team | Description | +--------+ + + + + | 01/17/ | Appointment | Radiology | Bill Arevalo DNP | | 2019 | | | [address] | | | | | | [place] | | | | | | [id number] | | | | | | | | +--------+ + + + + | 01/17/ | Office | Vascular Surgery | Bill Arevalo DNP | | 2019 | Visit | | [address] | | | | | | [place] | | | | | | [address] | | | | | | | | +--------+ + + + + | 05/22/ | Office | Nephrology | Mariana Cortez, | | | 2020 | Visit | | [address] | | | | | | [address] [facility] | | | | | | [place] [address] | | | | | | [phone] | | | | | | | | +--------+ + + + + documented as of this encounter Visit Diagnoses + + | Diagnosis | + + | Osteomyelitis of fifth toe of right foot (HCC) - Primary | + + | Acute osteomyelitis of metatarsal bone, right (HCC) | + + | Polymicrobial bacterial infection | + + | MSSA infection, non-invasive | + + | Type 2 diabetes, controlled, with neuropathy (HCC) Type II or unspecified type | | diabetes mellitus with neurological manifestations, not stated as uncontrolled | + + | CKD (chronic kidney disease) stage 3, GFR 30-59 ml/min Chronic kidney disease, Stage | | III (moderate) | + + | Weak pulse Other symptoms involving cardiovascular system | + + | Serratia infection Infection due to other gram-negative organisms in conditions | | classified elsewhere and of unspecified site | + + | [facility] (current) use of antibiotics | + + documented in this encounter
--- OUTSIDE RECORDS SUMMARY | ~2019-11-09 | XMS | Encounter Summary ---
Demographics + + + | Address | [address] | | | [place] [address] | + + + | Home Phone | | + + + | Preferred Language | Unknown | + + + | Marital Status | Single | + + + | Yarsani Affiliation | Unknown | + + + | Race | or | + + + | Ethnic Group | Not or | + + + Author + + + | Author | [facility] | | | and [place] | + + + | Organization | [facility] | | [...] Team Providers + +------+ + | Care Sap Basis Administrator Name | Role | Phone | + [...] | | | rhinitis due | [place] [address] | [address] Phone: | | | | | to animal | Phone: | [phone] | | | | | (cat) (dog) | [phone] | Fax: | | | | | hair and | Fax: | [phone] | | | | | dander | [phone] | | | | | | Allergic | | | | | | | rhinitis due | | | | | | | to dust | | | | | | | Procedures | | | | | | | MO | | | | | | | PERCUTANEOUS | | | | | | | TESTS | | | | | | | W/ALLERGENIC | | | | | | | EXTRACTS | | | | | | | MO | | | | | | | INTRACUTANEO | | | | | | | US TESTS | | | | | | | W/ALLERGENIC | | | | | | | EXTRACTS | | | | | | | MO | | | | | | | IMMUNOTHERAP | | | | | | | Y, ONE | | | | | | | INJECTION | | | | | | | MO PROFES | | | | | | | SVC,IMMUNOTH | | | | | | | ER,SINGLE/MU | | | | | | | LT AGS | | | +--------+ + + + + + Encounter Details +--------+ + + + + | Date | Type | Department | Care Team | Description | +--------+ + + + + | 12/28/ | Orders Only | [facility] [place] | Henok Luther MD | Allergic rhinitis | | 2015 | | OTOLARYNGOLOGY [address] | [address] [place] | due to pollen | | | | [address] | [address] [place] | (Primary Dx); | | | | [place] | [address] | Allergic rhinitis | | | | [address] | | due to animal (cat) | | | | [phone] | | (dog) hair and | | [...] | | 2019 | | | [address] | | | | | | [place] | | | | | | [address] | | | | | | | | +--------+ + + + + | 01/17/ | Office | Vascular Surgery | Bill Arevalo DNP | | | 2019 | Visit | | [address] | | | | | | [place] | | | | | | [address] | | | | | | | | +--------+ + + + + | 05/22/ | Office | Nephrology | Mariana Cortez W, | | | 2020 | Visit | | [address] | | | | | | [address] [place] | | | | | | [place] [address] | | | | | | [phone] | | | | | | | | +--------+ + + + + + + +--------+ + + | Name | Type | Priori | Associated Diagnoses | Order Schedule | | | | ty | | | + + +--------+ + + | Ambulatory referral | Outpatient | Routin | Allergic rhinitis | Ordered: 12/28/2014 | | to ENT (testing) | Referral | e | due to pollen | | | | | | Allergic rhinitis | | | | | | due to animal (cat) | | | | | | (dog) hair and | | | | | | dander Allergic | | | | | | rhinitis due to dust | | + + +--------+ + + [...]
--- OUTSIDE RECORDS SUMMARY | ~2019-11-09 | XMS | Encounter Summary ---
Demographics + + + | Address | [address] | | | [place] [address] | + + + | Home Phone | | + + + | Preferred Language | Unknown | + + + | Marital Status | Single | + + + | Presybeterian Affiliation | Unknown | + + + | Race | or | + + + | Ethnic Group | Not or | + + + Author + + + | Author | [facility] | | | and [place] | + + + | Organization | [facility] | | [...] Team Providers + +------+ + | Care Aviation Support Equipment Repairer Name | Role | Phone | + +------+ + | Mehrdad Avalos MD | PCP | | + +------+ + Reason for Visit + +--------+ + | Reason | Onset | Comments | | | Date | | + +--------+ + | Follow-up | 10/05/ | | | | 2020 | | + +--------+ + Encounter Details +--------+ + + + + | Date | Type | Department | Care Team | Description | +--------+ + + + + | 10/05/ | Telephone | [facility] | Eve Avilez, | Follow-up | | 2019 | | VASCULAR SURGERY | RN | | | | | [address] | | | | | | [place] | | | | | | [address] | | | | | | [phone] | | | +--------+ + + + + Social History + + + +--------+ + | Tobacco Use | Types | Packs/Day | Years | Date | | | | | Used | | + + + +--------+ + | Former Smoker | Cigarettes | 0.25 | 20 | Quit: 09/23/2012 | + + + +--------+ + + +---+---+---+ | Smokeless Tobacco: | | | | | Never Used | | | | + +---+---+---+ + + +---------+ + | Alcohol Use | Drinks/Week | oz/Week | Comments | + + +---------+ + | Not Currently | 1 Standard drinks | 1.0 | 1 a month | | | or equivalent | | | + + +---------+ + + + + | Sex Assigned at | Date Recorded | | | | + + + | Not on file | | + + + documented as of this encounter Functional Status + + + + | Functional Status | Response | Date of Assessment | + + + + | Are you deaf or do you have serious | No | 10/06/2019 | | difficulty hearing? | | | + + + + | Are you blind or do you have serious | No | 10/06/2019 | | difficulty seeing, even when wearing | | | | glasses? | | | + + + + | Do you have serious difficulty walking or | No | 10/06/2019 | | climbing stairs? (5 years old or older) | | | + + + + | Do you have difficulty dressing or bathing? | No | 10/06/2019 | | (5 years old or older) | | | + + + + | Because of a physical, mental, or emotional | No | 10/06/2019 | | condition, do you have difficulty doing | | | | errands alone such as visiting a doctor's | | | | office or shopping? [15 years old or | | | | older)] | | | + + + + + + + + | Cognitive Status | Response | Date of Assessment | + + + + | Because of a physical, mental, or emotional | No | 10/06/2019 | | condition, do you have serious difficulty | | | | concentrating, remembering, or making | | | | decisions? (5 years old or older) | | | + + + + documented as of this encounter Miscellaneous Notes Telephone Encounter - Eve Avilez RN - 10/06/2019 3:23 PM PDTFollow up call made to patient. Message left for patient to call back and schedule follow up with right lower ext remity arterial ultrasound. 3: 31 PM PDTdocumented in this encounter Plan of [...] [place] | | | | | | [address] | | | | | | | | +--------+ + + + + | 01/17/ | Office | Vascular Surgery | Bill Arevalo DNP | | | 2019 | Visit | | [address] | | | | | | [place] | | | | | | [address] | | | | | | | | +--------+ + + + + | 05/22/ | Office | Nephrology | Mariana Cortez, | | | 2020 | Visit | | MD [address] | | | | | | [address] [place] | | | | | | [place] [address] | | | | | | [phone] | | | | | | | | +--------+ + + + + documented as of this encounter Visit Diagnoses + + | Diagnosis | + + | PAD (peripheral artery disease) (HCC) - Primary Unspecified disorders of arteries and | | arterioles | + + documented in this encounter"
--- OUTSIDE RECORDS SUMMARY | ~2019-11-09 | XMS | Encounter Summary ---
Demographics + + + | Address | [address] | | | [place] [address] | + + + | Home Phone [...] Author + + + | Author | [facility] | | | and [place] | + + + | Organization | [facility] | | [...] Team Providers + +------+ + | Care Brick Paving Checker Name | Role | Phone | + +------+ + | Mehrdad Avalos MD | PCP | | + +------+ + Encounter Details +--------+ + + + + | Date | Type | Department | Care Team | Description | +--------+ + + + + | 04/24/ | Orders Only | [facility] [place] | Mariana Cortez W, | CKD (chronic kidney | | 2020 | | NEPHROLOGY [address] | [address] | disease) stage 3, | | | | [address] | [address] [place] | GFR 30-59 ml/min | | | | [place], [place] | [place] [address] | ([facility]) (Primary Dx) | | | | [address] | [phone] | | | | | [phone] | | | +--------+ + + + [...] + + documented as of this encounter Ada Leo RN - 04/25/2019 3:16 PM PDTLabs for upcoming nephrology appointment sent to: [facility] documented in this e ncounter Plan of Treatment +--------+ + + + + | Date | Type | Specialty | Care Team | Description | +--------+ + + + + | 01/17/ | Appointment | Radiology | Bill Arevalo DNP | | | 2019 | | | [address] | | | | | | [place] | | | | | | [id number] | | | | | | | | +--------+ + + + + | 01/17/ | Office | Vascular Surgery | Bill Arevalo DNP | | 2019 | Visit | | [address] | | | | | | [place] | | | | | | [address] | | | | | | | | +--------+ + + + + | 05/22/ | Office | Nephrology | Mariana Cortez, | | | 2020 | Visit | | [address] | | | | | | [address] [place] | | | | | | [place] [address] | | | | | | [phone] | | | | | | | | +--------+ + + + + + +------+--------+ + + | Name | Type | Priori | Associated Diagnoses | Order Schedule | | | | ty | | | + +------+--------+ + + | CBC with | Lab | Routin | CKD (chronic | 1 Occurrences | | Differential | | e | kidney disease) | starting 04/25/2019 | | | | | stage 3, GFR 30-59 | until 04/24/2020 | | | | | ml/min (HCC) | | + +------+--------+ + + | Renal Function Panel | Lab | Routin | CKD (chronic | 1 Occurrences | | | | e | kidney disease) | starting 04/25/2019 | | | | | stage 3, GFR 30-59 | until 04/24/2020 | | | | | ml/min (HCC) | | + +------+--------+ + + | Urinalysis With | Lab | Routin | CKD (chronic | 1 Occurrences | | Microscopic | | e | kidney disease) | starting 04/25/2019 | | | | | stage 3, GFR 30-59 | until 04/24/2020 | | | | | ml/min (HCC) | | + +------+--------+ + + | Vitamin D, | Lab | Routin | CKD (chronic | 1 Occurrences | | Deficiency Screen | | e | kidney disease) | starting 04/25/2019 | | (25-Hydroxy) | | | stage 3, GFR 30-59 | until 04/24/2020 | | | | | ml/min (HCC) | | + +------+--------+ + + | Protein/Creatinine | Lab | Routin | CKD (chronic | 1 Occurrences | | Ratio, Urine | | e | kidney disease) | starting 04/25/2019 | | | | | stage 3, GFR 30-59 | until 04/24/2020 | | | | | ml/min (HCC) | | + +------+--------+ + + | Parathyroid Hormone, | Lab | Routin | CKD (chronic | 1 Occurrences | | Intact | | e | kidney disease) | starting 04/25/2019 | | | | | stage 3, GFR 30-59 | until 04/24/2020 | | | | | ml/min (HCC) | | + +------+--------+ + + documented as of this encounter Visit Diagnoses + + | Diagnosis | + + | CKD (chronic kidney disease) stage 3, GFR 30-59 ml/min - Primary Chronic kidney | | disease, Stage III (moderate) | + + documented in this encounter"
--- OUTSIDE RECORDS SUMMARY | ~2019-11-09 | XMS | Encounter Summary ---
Demographics + + + | Address | [address] | | | [place] [address] | + + + | Home Phone [...] Author + + + | Author | [facility] | | | and [place] | + + + | Organization | [facility] | | | [...] Team Providers + +------+ + | Care Wire Frame Lampshade Maker Name | Role | Phone | [...] | | | | to pollen | [place] [address] | [address] Phone: | | | | | Allergic | Phone: | [phone] | | | | | rhinitis due | [phone] | Fax: | | | | | to dust | Fax: | [phone] | | | | | Mild | [phone] | | | | | | intermittent | | | | | | | asthma, | | | | | | | uncomplicate | | | | | | | d | | | | | | | Procedures | | | | | | | [place] | | | | | | | IMMUNOTHERAP | | | | | | | Y, ONE | | | | | | | INJECTION | | | | | | | [place] PROFES | | | | | | | SVC,IMMUNOTH | | | | | | | ER,SINGLE/MU | | | | | | | LT AGS | | | +--------+ + + + + + Encounter Details +--------+ + + + + | Date | Type | Department | Care Team | Description | +--------+ + + + + | 09/10/ | Clinical | [facility] [place] | Henok Luther MD | Mild intermittent | | 2018 | Support | [address]ARYNGOLOGY [address] | [address] | asthma, | | | | [address] | [address] [place] | uncomplicated | | | | [place] | [address] | (Primary Dx); | | | | [address] | | Non-seasonal | | | | [phone] | | allergic rhinitis | | | [...] encounter Progress Notes Modesta Benitez RN - 09/10/2017 3:45 PM PDTPatient presents with epi-pen & inhaler . No active wheezing or cough associated with asthma today. Denies delayed reaction from pre vious allergy injection. No fever or allergy related rash. No recent heavy exposure to aller gens. No plans for strenuous exercise immediately before or after injection today.Electronic ally signed by Modesta Benitez RN at 09/10/2017 3:57 PM PDTdocumented in this encoun ter Plan [...] [place] | | | | | | [address] | | | | | | | | +--------+ + + + + | 01/17/ | Office | Vascular Surgery | Bill Arevalo DNP | | | 2019 | Visit | | [address] | | | | | | [place] | | | | | | [address] | | | | | | | | +--------+ + + + + | 05/22/ | Office | Nephrology | Mariana Cortez, | | | 2020 | Visit | | MD [address] | | | | | | [address] [place] | | | | | | [place] [address] | | | | | | [phone] | | | | | | | | +--------+ + + + + documented as of this encounter Visit Diagnoses + + | Diagnosis | + + | Mild intermittent asthma, uncomplicated - Primary Unspecified asthma | + + | Non-seasonal allergic rhinitis due to pollen | + + | Allergic rhinitis due to dust Allergic rhinitis due to other allergen | + + documented in this encounter"
--- OUTSIDE RECORDS SUMMARY | ~2019-11-09 | XMS | Encounter Summary ---
Demographics + + + | Address | [address] | | | [place] [address] | + + + | Home Phone | | + + + | Preferred Language | Unknown | + + + | Marital Status | Single | + + + | Confucianist Affiliation | Unknown | + + + | Race | or | + + + | Ethnic Group | Not or | + + + Author + + + | Author | [facility] | | | and [place] | + + + | Organization | [facility] | | | [...] Team Providers + +------+ + | Care Life Insurance Underwriter Name | Role | Phone | + [...] | | | rhinitis due | [place] [address] | [address] Phone: | | | | | to animal | Phone: | [phone] | | | | | (cat) (dog) | [phone] | Fax: | | | | | hair and | Fax: | [phone] | | | | | dander | [phone] | | | | | | Allergic | | | | | | | rhinitis due | | | | | | | to dust | | | | | | | Procedures | | | | | | | [place] | | | | | | | IMMUNOTHERAP | | | | | | | Y, ONE | | | | | | | INJECTION | | | | | | | [place] | | | | | | | IMMUNOTHERAP | | | | | | | Y, 2+ | | | | | | | INJECTIONS | | | | | | | [place] PROFES | | | | | | | SVC,IMMUNOTH | | | | | | | ER,SINGLE/MU | | | | | | | LT AGS | | | +--------+ + + + + + Encounter Details +--------+ + + + + | Date | Type | Department | Care Team | Description | +--------+ + + + + | 09/23/ | Clinical | [facility] [place] | Henok Luther MD | Allergic rhinitis | | 2016 | Support | [address]ARYNGOLOGY [address] | [address] | due to pollen | | | | [address] | [address] [place] | (Primary Dx); | | | | [place] | [address] | Allergic rhinitis | | | | [address] | | due to animal (cat) | | | | [phone] | | (dog) hair and | | [...] encounter Progress Notes Modesta Benitez RN - 09/24/2015 4:19 PM PDTPatient presents with epi-pen & inhaler . No active wheezing or cough associated with asthma today. Denies delayed reaction from pre vious allergy injection. No fever or allergy related rash. No recent heavy exposure to aller gens. No plans for strenuous exercise immediately before or after injection today.Electronic ally signed by Modesta Benitez RN at 09/24/2015 4:53 PM PDTdocumented in this encoun ter Plan [...] [place] | | | | | | [id number] | | | | | | | | +--------+ + + + + | 01/17/ | Office | Vascular Surgery | Bill Arevalo DNP | | | 2019 | Visit | | [address] | | | | | | [place] | | | | | | [address] | | | | | | | | +--------+ + + + + | 05/22/ | Office | Nephrology | Mariana Cortez, | | | 2020 | Visit | | MD [address] | | | | | | [address] [place] | | | | | | [place] [address] | | | | | | [phone] | | | | | | | [...]
--- OUTSIDE RECORDS SUMMARY | ~2019-11-09 | XMS | Encounter Summary ---
Demographics + + + | Address | [address] | | | [place] [address] | + + + | Home Phone [...] + + + | Author | [facility] | | | and [place] | + + + | Organization | [facility] | | | and [...] Team Providers + +------+ + | Care Underwriter Mortgage Loan Name | Role | Phone | + +------+ + | Mehrdad Avalos MD | PCP | | + +------+ + Reason for Visit + +--------+ + | Reason | Onset | Comments | | | Date | | + +--------+ + | Procedure | 08/18/ | | | | 2020 | | + +--------+ + Encounter Details +--------+ + + + + | Date | Type | Department | Care Team | Description | +--------+ + + + + | 08/18/ | Telephone | [facility] | Julia Rodriguez, | Procedure | | 2019 | | GASTROENTEROLOGY | COMPOSING ROOM MACHINIST APPRENTICE [address] | | | | | [address] | [place]VD [place], [place] | | | | | [place], [place] | [address] | | | | | [address] | | | | | | [phone] | | | +--------+ + + + [...] this encounter Miscellaneous Notes Telephone Encounter - Huy Castro Waste Picker - 08/22/2019 1:59 PM PDTPatient is needing an EGD W/MAC for GAVE. Left message for patient to call us back at [phone]. ele phone Encounter - Julia Rodriguez ARNP - 08/19/2019 12:27 PM PDTPlease schedule patient f or EGD with MAC in 4 weeks due to GAVE with any provider . Thanks. documented in this encounter Plan of Treatment +--------+ + + + + | Date | Type | Specialty | Care Team | Description | +--------+ + + + + | 01/17/ | Appointment | Radiology | Bill Arevalo DNP | | | 2019 | | | [address] | | | | | | [place] | | | | | | [address] | | | | | | | | +--------+ + + + + | 01/17/ | Office | Vascular Surgery | Bill Arevalo DNP | | | 2019 | Visit | | [address] | | | | | | [address] [address] [place] | | | | | | [address] | | | | | | | | +--------+ + + + + | 05/22/ | Office | Nephrology | Mariana Cortez, | | | 2020 | Visit | | [address] | | | | | | [address] [place] | | | | | | [place] [address] | | | | | | [phone] | | | | | | | | +--------+ + + + + documented as of this encounter Visit Diagnoses Not on filedocumented in this encounter"
--- OUTSIDE RECORDS SUMMARY | ~2019-11-09 | XMS | Encounter Summary ---
Demographics + + + | Address | [address] | | | [place] [address] | + + + | Home Phone | | + + + | Preferred Language | Unknown | + + + | Marital Status | Single | + + + | Orthodoxy Affiliation | Unknown | + + + | Race | or | + + + | Ethnic Group | Not or | + + + Author + + + | Author | [facility] | | | and [place] | + + + | Organization | [facility] | | | and [...] Team Providers + +------+ + | Care Floor Scrubber Name | Role | Phone | + [...] | | | rhinitis due | [place] [address] | [address] Phone: | | | | | to animal | Phone: | [phone] | | | | | (cat) (dog) | [phone] | Fax: | | | | | hair and | Fax: | [phone] | | | | | dander | [phone] | | | | | | Allergic | | | | | | | rhinitis due | | | | | | | to dust | | | | | | | Procedures | | | | | | | [place] | | | | | | | IMMUNOTHERAP | | | | | | | Y, ONE | | | | | | | INJECTION | | | | | | | [place] | | | | | | | IMMUNOTHERAP | | | | | | | Y, 2+ | | | | | | | INJECTIONS | | | | | | | [place] PROFES | | | | | | | SVC,IMMUNOTH | | | | | | | ER,SINGLE/MU | | | | | | | LT AGS | | | +--------+ + + + + + Encounter Details +--------+ + + + + | Date | Type | Department | Care Team | Description | +--------+ + + + + | 08/26/ | Clinical | [facility] [place] | Henok Luther MD | Allergic rhinitis | | 2016 | Support | OTOLARYNGOLOGY [address] | [address] | due to pollen | | | | [address] | [address] [place] | (Primary Dx); | | | | [place] | [address] | Allergic rhinitis | | | | [address] | | due to animal (cat) | | | | [phone] | | (dog) hair and | | [...] of this encounter Progress Notes Narda Lay, ZULAY - 08/27/2015 4:17 PM PDTPatient presents with epi-pen. Denies delayed reaction from previous allergy injection. No fever or allergy related rash. No recent heavy exposure to allergens. No plans for strenuous exercise before or after injection today.Elec tronically signed by Narda Lay RN at 08/27/2015 4:46 PM PDTdocumented in this encoun ter Plan [...] [place] | | | | | | [address] | | | | | | | | +--------+ + + + + | 01/17/ | Office | Vascular Surgery | Bill Arevalo DNP | | | 2019 | Visit | | [address] | | | | | | [place] | | | | | | [address] | | | | | | | | +--------+ + + + + | 05/22/ | Office | Nephrology | Mariana Cortez, | | | 2020 | Visit | | MD [address] | | | | | | [address] [place] | | | | | | [place] [address] | | | | | | [phone] | | | | | | | [...]
--- OUTSIDE RECORDS SUMMARY | ~2019-11-09 | XMS | Encounter Summary ---
Demographics + + + | Address | [address] | | | [place] [address] | + + + | Home Phone [...] Author + + + | Author | [facility] | | | and [place] | + + + | Organization | [facility] | | | [...] Team Providers + +------+ + | Care Ironworker Foreman Name | Role | Phone | + +------+ + PCP | Unavailable | + +------+ + Reason for Visit + +--------+ + | Reason | Onset | Comments | | | Date | | + +--------+ + | Medication Refill | 10/25/ | | | | 2012 | | + +--------+ + Encounter Details +--------+--------+ + + + | Date | Type | Department | Care Team | Description | +--------+--------+ + + + | 10/25/ | Refill | [facility] [place] | Mariana Cortez W, | Medication Refill | | 2012 | | NEPHROLOGY [address] | MD [address] | | | | | [address] | [address] [facility] | | | | | [place] | [place] [address] | | | | | [address] | [phone] | | | | | [phone] | | | +--------+--------+ + + + Social History + +-------+ [...] this encounter Miscellaneous Notes Telephone Encounter - Ada Serrano RN - 10/27/2012 9:54 AM PDTLeft message asking alesia bermudez to complete lab work at [facility] today, instead of tomorrow. Patient was requested to call back. elephone Encounter - Mariana Cortez MD - 10/27/2012 8:00 AM PDTJesica, Please see if patient can complete the blood work today (10/27/12). elephone Encounter - Ada Serrano RN - 10/25/2012 3:02 PM PDTPatient called in reporting that she still hadn't picked up her pres criptions from the pharmacy. 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 Cortez's orders. Patient was asked to complete lab work on [facility]. Patient verbally expressed a clear understanding and agreed to comply . documented in this encounter Plan of Treatment [...] [place] | | | | | | [address] | | | | | | | | +--------+ + + + + | 01/17/ | Office | Vascular Surgery | Bill Arevalo DNP | | | 2019 | Visit | | [address] | | | | | | [place] | | | | | | [address] | | | | | | | | +--------+ + + + + | 05/22/ | Office | Nephrology | Mariana Cortez, | | | 2020 | Visit | | [address] | | | | | | [address] [place] | | | | | | [place] [address] | | | | | | [phone] | | | | | | | | +--------+ + + + + documented as of this encounter Visit Diagnoses Not on filedocumented in this encounter"
--- OUTSIDE RECORDS SUMMARY | ~2019-11-09 | XMS | Encounter Summary ---
Demographics + + + | Address | [address] | | | [place] [address] | + + + | Home Phone | | + + + | Preferred Language | Unknown | + + + | Marital Status | Single | + + + | Faith Affiliation | Unknown | + + + | Race | or | + + + | Ethnic Group | Not or | + + + Author + + + | Author | [facility] | | | and [place] | + + + | Organization | [facility] | | | [...] Team Providers + +------+ + | Care Saw Man Name | Role | Phone | + +------+ + | Ronel Jacobson PA-C | PCP | | + +------+ + Encounter Details +--------+ + + + + | Date | Type | Department | Care Team | Description | +--------+ + + + + | 02/16/ | Abstract | [facility] [place] | Mariana Cortez, | CKD (chronic kidney | | 2016 | | NEPHROLOGY [address] | [address] | disease) stage 3, | | | | [address] | [address] [place] | GFR 30-59 ml/min | | | | [place] | [place] [address] | ([facility]) (Primary Dx) | | | | [address] | [phone] | | | | | [phone] | | | +--------+ + + + [...] + documented as of this encounter Progress Glo Calle RN - 02/16/2015 10:02 AM PSTLab orders for appointment on 03/13/2015 sent to [facility]. documented in this encounter Plan of Treatment +--------+ + + + + | Date | Type | Specialty | Care Team | Description | +--------+ + + + + | 01/17/ | Appointment | Radiology | Bill Arevalo DNP | | | 2019 | | | [address] | | | | | | [place] [facility] | | | | | | [address] | | | | | | | | +--------+ + + + + | 01/17/ | Office | Vascular Surgery | Bill Arevalo DNP | | 2019 | Visit | | [address] | | | | | | [address] [address] [facility] [place] | | | | | | [address] | | | | | | | | +--------+ + + + + | 05/22/ | Office | Nephrology | Mariana Cortez, | | | 2020 | Visit | | [address] | | | | | | [address] [place] | | | | | | [place] [address] | | | | | | [phone] | | | | | | | | +--------+ + + + + documented as of this encounter Visit Diagnoses + + | Diagnosis | + + | CKD (chronic kidney disease) stage 3, GFR 30-59 ml/min ([facility]) - Primary Chronic kidney | | disease, Stage III (moderate) | + + documented in this encounter"
--- OUTSIDE RECORDS SUMMARY | ~2019-11-09 | XMS | Encounter Summary ---
Demographics + + + | Address | [address] | | | [place] [address] | + + + | Home Phone [...] Team Providers + +------+ + | Care Supervisor Costuming Name | Role | Phone | + [...] | | | rhinitis due | [place] [address] | [address] Phone: | | | | | to animal | Phone: | [phone] | | | | | (cat) (dog) | [phone] | Fax: | | | | | hair and | Fax: | [phone] | | | | | dander | [phone] | | | | | | Allergic [...] | +--------+ + + + + | 06/10/ | Clinical | [facility] [place] | Henok Luther MD | Allergic rhinitis | | 2016 | Support | OTOLARYNGOLOGY [address] | [address] | due to pollen | | | | [address] | [address] [place] | (Primary Dx); | | | | [place] | [address] | Allergic rhinitis | | | | [address] | | due to animal (cat) | | | | [phone] | | (dog) hair and | | [...] encounter Progress Notes Modesta Benitez RN - 06/11/2015 4:12 PM PDTPatient presents with epi-penJennifer james elayed reaction from previous allergy injection. No fever or allergy related rash. No recent heavy exposure to allergens. No plans for strenuous exercise before or after injection toda y. documented in this encounter Plan of Treatment +--------+ + + + + | Date | Type | Specialty | Care Team | Description | +--------+ + + + + | 01/17/ | Appointment | Radiology | Bill Arevalo DNP | | | 2019 | | | [address] | | | | | | [place] | | | | | | [address] | | | | | | | | +--------+ + + + + | 01/17/ | Office | Vascular Surgery | Bill Arevalo DNP | | | 2019 | Visit | | [address] | | | | | | [place] | | | | | | [address] | | | | | | | | +--------+ + + + + | 05/22/ | Office | Nephrology | Mariana Cortez, | | | 2020 | Visit | | [address] | | | | | | [address] [place] | | | | | | [place] [address] | | | | | | [phone] | | | | | | | [...]
--- OUTSIDE RECORDS SUMMARY | ~2019-11-09 | XMS | Encounter Summary ---
Demographics + + + | Address | [address] | | | [place] [address] | + + + | Home Phone | | + + + | Preferred Language | Unknown | + + + | Marital Status | Single | + + + | Jewish Affiliation | Unknown | + + + | Race | or | + + + | Ethnic Group | Not or | + + + Author + + + | Author | [facility] | | | and [place] | + + + | Organization | [facility] | | | [...] Team Providers + +------+ + | Care Manager New Product Name | Role | Phone | + +------+ + | Ronel Jacobosn PA-C | PCP | | + +------+ + Encounter Details +--------+ + + + + | Date | Type | Department | Care Team | Description | +--------+ + + + + | 08/30/ | Orders Only | [facility] [place] | Mariana Cortez W, | CKD (chronic kidney | | 2016 | | NEPHROLOGY [address] | [address] | disease) stage 3, | | | | [address] | [address] [place] | GFR 30-59 ml/min | | | | [place], [place] | [place] [address] | ([facility]) (Primary Dx); | | | | [address] | [phone] | Proteinuria | | | | [phone] | | | +--------+ + + + [...] documented as of this encounter Progress Notes Glo Scanlon RN - 08/31/2015 3:39 PM PDTLabs for nephrology appt on 09/18/15 sent to Jacob thom[facility]. documented in this en counter Plan of [...] [place] | | | | | | [id number] | | | | | | | | +--------+ + + + + | 01/17/ | Office | Vascular Surgery | Bill Arevalo DNP | | | 2019 | Visit | | [address] | | | | | | [place] | | | | | | [address] | | | | | | | | +--------+ + + + + | 05/22/ | Office | Nephrology | Mariana Cortez, | | | 2020 | Visit | | MD [address] | | | | | | [address] [place] | | | | | | [place] [address] | | | | | | [phone] | | | | | | | | +--------+ + + + + documented as of this encounter Visit Diagnoses + + | Diagnosis | + + | CKD (chronic kidney disease) stage 3, GFR 30-59 ml/min (HCC) - Primary Chronic kidney | | disease, Stage III (moderate) | + + | Proteinuria | + + documented in this encounter"
--- OUTSIDE RECORDS SUMMARY | ~2019-11-09 | XMS | Encounter Summary ---
Demographics + + + | Address | [address] | | | [place] [address] | + + + | Home Phone [...] Author + + + | Author | [facility] | | | and [place] | + + + | Organization | [facility] | | | and [...] Team Providers + +------+ + | Care Chuck Tender Name | Role | Phone | + [...] | | | Services | y | Asthmatic | Henok Calix MD | MD [address] | | | Required | | bronchitis, | [address] | | | | | unspecified | [address] | [address] [place] | | | | | asthma | [place], | [place], [place] | | | | | severity, | [place] [address] | [address] Phone: | | | | | uncomplicate | Phone: | [phone] | | | | | d | [phone] | Fax: | | | | | Non-seasonal | Fax: | [phone] | | | | | allergic | [phone] | | | | | | rhinitis [...] | | | | | | | 09/01>PEND | | | | | | | YH | | | +--------+ + + + + + Encounter Details +--------+ + + + + | Date | Type | Department | Care Team | Description | +--------+ + + + + | 06/04/ | Clinical | [facility] [place] | Henok Luther MD | Non-seasonal | | 2017 | Support | OTOLARYNGOLOGY [address] | [address] | allergic rhinitis | | | | [address] | [address] [place] | due to pollen | | | | [place], [place] | [address] | (Primary Dx); | | | | [address] | | Allergic rhinitis | | | | [phone] | | due to animal (cat) | [...] as of this encounter Progress Notes Narda Lay RN - 06/04/2016 4:15 PM PDTPatient presents with epi-pen & inhaler. No a ctive wheezing or cough associated with asthma today. Denies delayed reaction from previous allergy injection. No fever or allergy related rash. No recent heavy exposure to allergens. No plans for strenuous exercise immediately before or after injection today.Electronically s igned by Narda Lay RN at 06/04/2016 4:45 PM PDTdocumented in this encounter Plan of [...] [place] | | | | | | [address] | | | | | | | | +--------+ + + + + | 01/17/ | Office | Vascular Surgery | Bill Arevalo DNP | | | 2019 | Visit | | [address] | | | | | | [place] | | | | | | [address] | | | | | | | | +--------+ + + + + | 05/22/ | Office | Nephrology | CortezMarinaa gil, | | | 2020 | Visit | | [address] | | | | | | [address] [place] | | | | | | [place] [address] | | | | | | [phone] | | | | | | | [...]
--- OUTSIDE RECORDS SUMMARY | ~2019-11-09 | XMS | Encounter Summary ---
Demographics + + + | Address | [address] | | | [place] [address] | + + + | Home Phone | | + + + | Preferred Language | Unknown | + + + | Marital Status | Single | + + + | Mosque Affiliation | Unknown | + + + [...] Team Providers + +------+ + | Care Irradiated Fuel Handler Name | Role | Phone | [...] | | | | unspecified | [address] [place] | | | | | asthma | [place], | [place], [place] | | | | | severity, | [place] [address] | [address] Phone: | | | | | uncomplicate | Phone: | [phone] | | | | | d | [phone] | Fax: | | | | | Non-seasonal | Fax: | [phone] | | | | | allergic | [phone] | | | | | | rhinitis due | | | | | | | to pollen | | | | | | | Procedures | | | | | | | MD | | | | | | | IMMUNOTHERAP | | | | | | | Y, ONE | | | | | | | INJECTION | | | | | | | MD | | | | | | | IMMUNOTHERAP | | | | | | | Y, 2+ | | | | | | | INJECTIONS | | | | | | | MD PROFES | | | | | | [...] | +--------+ + + + + | 09/04/ | Clinical | [facility] [place] | Henok Luther MD | Non-seasonal | | 2017 | Support | [address]OLARYNGOLOGY [address] | [address] | allergic rhinitis | | | | [address] | [address] [place] | due to pollen | | | | [place], [place] | [address] | (Primary Dx); | | | | [address] | | Allergic rhinitis | | | | [phone] | Mehrdad Thomas MD | due to animal (cat) | | | | | [address] | (dog) hair and | | | | | [address] [place] | dander; Allergic | | | | | [address] | rhinitis due to dust | | | | | | mite; Extrinsic | | | | | | asthma, unspecified | +--------+ + + + + Social [...] encounter Progress Notes Domenica Meredith RN - 09/04/2016 4:15 PM PDTPatient presents with epi-pen & inhaler. No ac tive wheezing or cough associated with asthma today. Denies delayed reaction from previous a llergy injection. No fever or allergy related rash. No recent heavy exposure to allergens. N o plans for strenuous exercise immediately before or after injection today.Electronically si gned by Domenica Meredith RN at 09/04/2016 4:41 PM PDTdocumented in this encounter Plan of [...] [place] | | | | | | [address] | | | | | | | | +--------+ + + + + | 01/17/ | Office | Vascular Surgery | Bill Arevalo DNP | | 2019 | Visit | | [address] | | | | | | [place] | | | | | | [address] | | | | | | | | +--------+ + + + + | 05/22/ | Office | Nephrology | Mariana Cortez, | | | 2020 | Visit | | [address] | | | | | | [address] [place] | | | | | | [place] [address] | | | | | | [phone] | | | | | | | | +--------+ + + + + + + +--------+ + + | Name | Type | Priori | Associated Diagnoses | Order Schedule | | | | ty | | | + + +--------+ + + | Ambulatory referral | Outpatient | Routin | Asthmatic | Ordered: 01/10/2016 | | to ENT | Referral | e | bronchitis, | | | (immunotherapy) | | | unspecified asthma | | | | | | severity, | | | | | | uncomplicated | | | | | | Non-seasonal | | | | | | allergic rhinitis | | | | | | due to pollen | | + + +--------+ + + documented as of this encounter Visit Diagnoses + + | Diagnosis | + + | Non-seasonal allergic rhinitis due to pollen - Primary | + + | Allergic rhinitis due to animal (cat) (dog) hair and dander | + + | Allergic rhinitis due to dust mite | + + | Extrinsic asthma, unspecified | + + documented in this encounter"
--- OUTSIDE RECORDS SUMMARY | ~2019-11-09 | XMS | Encounter Summary ---
Demographics + + + | Address | [address] | | | [place] [address] | + + + | Home Phone | | + + + | Preferred Language | Unknown | + + + | Marital Status | Single | + + + | Christian Affiliation | Unknown | + + + [...] Team Providers + +------+ + | Care Hooker Machine Tender Name | Role | Phone | [...] | | | | to pollen | [place] [address] | [address] Phone: | | | | | Allergic | Phone: | [phone] | | | | | rhinitis due | [phone] | Fax: | | | | | to dust | Fax: | [phone] | | | | | Mild | [phone] | | | | | | intermittent | | | | | | | asthma, | | | | | | | uncomplicate | | | | | | | d | | | | | | | Procedures | | | | | | | [place] | | | | | | | IMMUNOTHERAP | | | | | | | Y, ONE | | | | | | | INJECTION | | | | | | | [place] PROFES | | | | | | | SVC,IMMUNOTH | | | | | | | ER,SINGLE/MU | | | | | | | LT AGS | | | +--------+ + + + + + Encounter Details +--------+ + + + + | Date | Type | Department | Care Team | Description | +--------+ + + + + | 04/15/ | Clinical | [facility] | Henok Luther MD | Extrinsic asthma, | | 2019 | Support | OT[address]ARYNGOLOGY [address] | [address] | unspecified asthma | | | | [address] | [address] [place] | severity, | | | | [place] | [address] | unspecified whether | | | | [address] | | complicated, | | | | [phone] | | unspecified whether | | | [...] encounter Progress Notes Domenica Meredith RN - 04/15/2018 2:45 PM PSTPatient presents with epi-pen & inhaler. No ac tive wheezing or cough associated with asthma today. Denies delayed reaction from previous a llergy injection. No fever or allergy related rash. No recent heavy exposure to allergens. N o plans for strenuous exercise immediately before or after injection today.Electronically si gned by Domenica Meredith RN at 04/15/2018 2:50 PM PSTdocumented in this encounter Plan of Treatment +--------+ + + + + | Date | Type | Specialty | Care Team | Description | +--------+ + + + + | 01/17/ | Appointment | Radiology | Bill Arvealo DNP | | | 2019 | | [...] [place] | | | | | | [address] | | | | | | | | +--------+ + + + + | 05/22/ | Office | Nephrology | Mariana Cortez, | | | 2020 | Visit | | MD [address] | | | | | | [address] [place] | | | | | | [place] [address] | | | | | | [phone] | | | | | | | [...]
--- OUTSIDE RECORDS SUMMARY | ~2019-11-09 | XMS | Encounter Summary ---
Demographics + + + | Address | [address] | | | [place] [address] | + + + | Home Phone | | + + + | Preferred Language | Unknown | + + + | Marital Status | Single | + + + | Mormonism Affiliation | Unknown | + + + [...] Team Providers + +------+ + | Care Assistant Dean Name | Role | Phone | + +------+ + | Ronel Jacobson PA-C | PCP | | + +------+ + Encounter Details +--------+ + + + + | Date | Type | Department | Care Team | Description | +--------+ + + + + | 05/11/ | Abstract | [facility] [place] | Mariana Cortez W, | | | 2018 | | NEPHROLOGY [address] | [address] | | | | | [address] | [address] [place] | | | | | [place], [place] | [place] [address] | | | | | [address] | [phone] | | | | | [phone] | | | +--------+ + + + [...] [place] | | | | | | [address] | | | | | | | | +--------+ + + + + | 01/17/ | Office | Vascular Surgery | Bill Arevalo DNP | | | 2019 | Visit | | [address] | | | | | | [place] | | | | | | [address] | | | | | | | | +--------+ + + + + | 05/22/ | Office | Nephrology | Mariana Cortez | | | 2020 | Visit | | [address] | | | | | | [address] [place] | | | | | | [place] [address] | | | | | | [phone] | | | | | | | | +--------+ + + + + documented as of this encounter Procedures + +--------+ + + + | Procedure Name | Priori | Date/Time | Associated Diagnosis | Comments | | | ty | | | | + +--------+ + + + | EXTERNAL LAB: LEVI | Routin | 05/10/2018 | | Results for this | | | e | | | procedure are in the | | | | | | results section. | + +--------+ + + + | EXTERNAL LAB: | Routin | 05/10/2018 | | Results for this | | GLUCOSE | e | | | procedure are in the | | | | | | results section. | + +--------+ + + + | EXTERNAL LAB: ALT | Routin | 05/10/2018 | | Results for this | | | e | | | procedure are in the | | | | | | results section. | + +--------+ + + + | EXTERNAL LAB: AST | Routin | 05/10/2018 | | Results for this | | | e | | | procedure are in the | | | | | | results section. | + +--------+ + + + | EXTERNAL LAB: | Routin | 05/10/2018 | | Results for this | | ALKALINE PHOSPHATASE | e | | | procedure are in the | | | | | | results section. | + +--------+ + + + | EXTERNAL LAB: | Routin | 05/10/2018 | | Results for this | | BILIRUBIN, TOTAL | e | | | procedure are in the | | | | | | results section. | + +--------+ + + + | EXTERNAL LAB: | Routin | 05/10/2018 | | Results for this | | ALBUMIN | e | | | procedure are in the | | | | | | results section. | + +--------+ + + + | EXTERNAL LAB: | Routin | 05/10/2018 | | Results for this | | PROTEIN, TOTAL | e | | | procedure are in the | | | | | | results section. | + +--------+ + + + | EXTERNAL LAB: | Routin | 05/10/2018 | | Results for this | | CALCIUM | e | | | procedure are in the | | | | | | results section. | + +--------+ + + + | EXTERNAL LAB: CARBON | Routin | 05/10/2018 | | Results for this | | DIOXIDE | e | | | procedure are in the | | | | | | results section. | + +--------+ + + + | EXTERNAL LAB: | Routin | 05/10/2018 | | Results for this | | CHLORIDE | e | | | procedure are in the | | | | | | results section. | + +--------+ + + + | EXTERNAL LAB: | Routin | 05/10/2018 | | Results for this | | POTASSIUM | e | | | procedure are in the | | | | | | results section. | + +--------+ + + + | EXTERNAL LAB: SODIUM | Routin | 05/10/2018 | | Results for this | | | e | | | procedure are in the | | | | | | results section. | + +--------+ + + + | EXTERNAL LAB: | Routin | 05/10/2018 | | Results for this | | URINALYSIS | e | | | procedure are in the | | | | | | results section. | + +--------+ + + + | EXTERNAL LAB: CBC | Routin | 05/10/2018 | | Results for this | | | e | | | procedure are in the | | | | | | results section. | + +--------+ + + + | EXTERNAL LAB: EGFR | Routin | 05/10/2018 | | Results for this | | | e | | | procedure are in the | | | | | | results section. | + +--------+ + + + | EXTERNAL LAB: | Routin | 05/10/2018 | | Results for this | | CREATININE | e | | | procedure are in the | | | | | | results section. | + +--------+ + + + | URINALYSIS WITH | Routin | 05/10/2018 | | Results for this | | MICROSCOPIC | e | | | procedure are in the | | | | | | results section. | + +--------+ + + + documented in this encounter Results Urinalysis With Microscopic (05/10/2018) + + + + + + | Component | Value | Ref Range | Performed | Pathologist | | | | | At | Signature | + + + + + + | WBC UA | 10 | /HPF | | | + + + + + + | Color, | Yellow | Light Yellow, | | | | Urine | | Yellow | | | + + + + + + | Clarity, | Clear | | | | | Urine | | | | | + + + + + + | Bacteria, | 1+ | | | | | UA | | | | | + + + + + + | Squamous | 15-25 (A) | 0 - 2 /LPF | | | | Epithelial | | | | | | Cells, | | | | | | Urine | | | | | + + + + + + | Nitrite, | Negative | Negative | | | | Urine | | | | | + + + + + + + + | Specimen | + + | Urine | + + External Lab: BUN (05/10/2018) + +-------+ + + + | Component | Value | Ref Range | Performed | Pathologist | | | | | At | Signature | + +-------+ + + + | BUN, | 46 | | | | | External | | | | | + +-------+ + + + External Lab: Glucose (05/10/2018) + +-------+ + + + | Component | Value | Ref Range | Performed | Pathologist | | | | | At | Signature | + +-------+ + + + | Glucose, | 354 | | | | | External | | | | | + +-------+ + + + External Lab: ALT (05/10/2018) + +-------+ + + + | Component | Value | Ref Range | Performed | Pathologist | | | | | At | Signature | + +-------+ + + + | ALT, | 11 | | | | | External | | | | | + +-------+ + + + External Lab: AST (05/10/2018) + +-------+ + + + | Component | Value | Ref Range | Performed | Pathologist | | | | | At | Signature | + +-------+ + + + | AST, | 12 | | | | | External | | | | | + +-------+ + + + External Lab: Alkaline Phosphatase (05/10/2018) + +-------+ + + + | Component | Value | Ref Range | Performed | Pathologist | | | | | At | Signature | + +-------+ + + + | ALP, | 99 | | | | | External | | | | | + +-------+ + + + External Lab: Bilirubin, Total (05/10/2018) + +-------+ + + + | Component | Value | Ref Range | Performed | Pathologist | | | | | At | Signature | + +-------+ + + + | Bilirubin, | 0.3 | | | | | Total, | | | | | | External | | | | | + +-------+ + + + External Lab: Albumin (05/10/2018) + +-------+ + + + | Component | Value | Ref Range | Performed | Pathologist | | | | | At | Signature | + +-------+ + + + | Albumin, | 3.6 | | | | | External | | | | | + +-------+ + + + External Lab: Protein, Total (05/10/2018) + +-------+ + + + | Component | Value | Ref Range | Performed | Pathologist | | | | | At | Signature | + +-------+ + + + | Protein, | 7.0 | | | | | Total, | | | | | | External | | | | | + +-------+ + + + External Lab: Calcium (05/10/2018) + +-------+ + + + | Component | Value | Ref Range | Performed | Pathologist | | | | | At | Signature | + +-------+ + + + | Calcium, | 8.9 | | | | | External | | | | | + +-------+ + + + External Lab: Carbon Dioxide (05/10/2018) + +-------+ + + + | Component | Value | Ref Range | Performed | Pathologist | | | | | At | Signature | + +-------+ + + + | Carbon | 18 | | | | | Dioxide, | | | | | | External | | | | | + +-------+ + + + External Lab: Chloride (05/10/2018) + +-------+ + + + | Component | Value | Ref Range | Performed | Pathologist | | | | | At | Signature | + +-------+ + + + | Chloride, | 99 | | | | | External | | | | | + +-------+ + + + External Lab: Potassium (05/10/2018) + +-------+ + + + | Component | Value | Ref Range | Performed | Pathologist | | | | | At | Signature | + +-------+ + + + | Potassium, | 5.0 | | | | | External | | | | | + +-------+ + + + External Lab: Sodium (05/10/2018) + +-------+ + + + | Component | Value | Ref Range | Performed | Pathologist | | | | | At | Signature | + +-------+ + + + | Sodium, | 133 | | | | | External | | | | | + +-------+ + + + External Lab: Urinalysis (05/10/2018) + + + + + + | Component | Value | Ref Range | Performed | Pathologist | | | | | At | Signature | + + + + + + | UA Blood, | 250 | | | | | External | | | | | + + + + + + | UA Glucose, | 1,000 | | | | | External | | | | | + + + + + + | UA Ketones, | negative | | | | | External | | | | | + + + + + + | UA Ph, | 5.0 | | | | | External | | | | | + + + + + + | UA | trace | | | | | Proteins, | | | | | | External | | | | | + + + + + + | UA RBC, | 50 | | | | | External | | | | | + + + + + + | UA Specific | 1.024 | | | | | Swisher, | | | | | | External | | | | | + + + + + + | UA | negative | | | | | Leukocyte | | | | | | Esterase, | | | | | | External | | | | | + + + + + + External Lab: ALEXIS (05/10/2018) + +-------+ + + + | Component | Value | Ref Range | Performed | Pathologist | | | | | At | Signature | + +-------+ + + + | WBC, | 10.29 | | | | | External | | | | | + +-------+ + + + | HGB, | 10.94 | | | | | External | | | | | + +-------+ + + + | HCT, | 32.47 | | | | | External | | | | | + +-------+ + + + | PLT, | 332 | | | | | External | | | | | + +-------+ + + + | RBC, | 3.75 | | | | | External | | | | | + +-------+ + + + | MCV, | 87 | | | | | External | | | | | + +-------+ + + + | RDW, | 17.48 | | | | | External | | | | | + +-------+ + + + External Lab: eGFR (05/10/2018) + +-------+ + + + | Component | Value | Ref Range | Performed | Pathologist | | | | | At | Signature | + +-------+ + + + | eGFR, | 37 | | | | | External | | | | | + +-------+ + + + + + | Specimen | + + | Blood | + + External Lab: Creatinine (05/10/2018) + +-------+ + + + | Component | Value | Ref Range | Performed | Pathologist | | | | | At | Signature | + +-------+ + + + | Creatinine, | 1.6 | | | | | External | | | | | + +-------+ + + + + + | Specimen | + + | Blood | + + documented in this encounter Visit Diagnoses Not on filedocumented in this encounter"
--- OUTSIDE RECORDS SUMMARY | ~2019-11-09 | XMS | Encounter Summary ---
Demographics + + + | Address | [address] | | | [place] [address] | + + + | Home Phone | | + + + | Preferred Language | Unknown | + + + | Marital Status | Single | + + + | Jew Affiliation | Unknown | + + + [...] Team Providers + +------+ + | Care Spray Dyer Name | Role | Phone | + +------+ + | Ronel Jacobson PA-C | PCP | | + +------+ + Encounter Details +--------+ + + + + | Date | Type | Department | Care Team | Description | +--------+ + + + + | 04/29/ | Orders Only | [facility] | Mariana oCrtez, | CKD (chronic kidney | | 2017 | | NEPHROLOGY [address] | [address] | disease) stage 3, | | | | [address] | [address] [place] | GFR 30-59 ml/min | | | | [place], [place] | [place] [address] | ([facility]) (Primary Dx) | | | | [address] | [phone] | | | | | [phone] | | | +--------+ + + + [...] + documented as of this encounter Progress Ada Rene RN - 04/29/2016 8:45 AM PDTYellowhawk 05/06/16 documented in this encounter Plan of Treatment +--------+ + + + + | Date | Type | Specialty | Care Team | Description | +--------+ + + + + | 01/17/ | Appointment | Radiology | Bill Arevalo DNP | | | 2019 | | | [address] | | | | | | [place] | | | | | | [address] | | | | | | | | +--------+ + + + + | 01/17/ | Office | Vascular Surgery | Bill Arevalo DNP | | | 2019 | Visit | | [address] | | | | | | [address] [address] [place] | | | | | | [address] | | | | | | | | +--------+ + + + + | 05/22/ | Office | Nephrology | Mariana Cortez, | | | 2020 | Visit | | MD [address] | | | | | | [address] [place] | | | | | | [place] [address] | | | | | | [phone] | | | | | | | | +--------+ + + + + + +------+--------+ + + | Name | Type | Priori | Associated Diagnoses | Order Schedule | | | | ty | | | + +------+--------+ + + | Renal Function Panel | Lab | Routin | CKD (chronic | Expected: 05/06/2016 | | | | e | kidney disease) | (Approximate), | | | | | stage 3, GFR 30-59 | Expires: 04/29/2017 | | | | | ml/min (HCC) | | + +------+--------+ + + | Urinalysis With | Lab | Routin | CKD (chronic | Expected: 05/06/2016 | | Microscopic | | e | kidney disease) | (Approximate), | | | | | stage 3, GFR 30-59 | Expires: 04/29/2017 | | | | | ml/min (HCC) | | + +------+--------+ + + | Protein/Creatinine | Lab | Routin | CKD (chronic | Expected: 05/06/2016 | | Ratio, Urine | | e | kidney disease) | (Approximate), | | | | | stage 3, GFR 30-59 | Expires: 04/29/2017 | | | | | ml/min (HCC) | | + +------+--------+ + + documented as of this encounter Visit Diagnoses + + | Diagnosis | + + | CKD (chronic kidney disease) stage 3, GFR 30-59 ml/min ([facility]) - Primary Chronic kidney | | disease, Stage III (moderate) | + + documented in this encounter"
--- OUTSIDE RECORDS SUMMARY | ~2019-11-09 | XMS | Encounter Summary ---
Demographics + + + | Address | [address] | | | [place] [address] | + + + | Home Phone | | + + + | Preferred Language | Unknown | + + + | Marital Status | Single | + + + | Denominational Affiliation | Unknown | + + + [...] Team Providers + +------+ + | Care Director Of Optimization Name | Role | Phone | + +------+ + | Mehrdad Avalos MD | PCP | | + +------+ + Reason for Visit +---------+ + | Reason | Comments | +---------+ + | Results | 08/29/2019 [facility]- CBC, CMP, ESR, CRP | +---------+ + Encounter Details +--------+ + + + + | Date | Type | Department | Care Team | Description | +--------+ + + + + | 08/31/ | Documentati | [facility] | Louie Henry, | Results (08/29/2019 | | 2020 | on | INFECTIOUS DISEASE | Carmine Kebede MD | [facility] | | | | [address] | [address] | Labs- CBC, CMP, ESR, | | | | [place], [place] | [place] [address] | CRP) | | | | [address] | [phone] | | | | | [phone] | | | +--------+ + + + [...] documented as of this encounter Progress Notes Viji Gold Pediatric Lpn - 09/01/2019 2:58 PM PDTLab: CBC, CMP, ESR, CRP DOS:08/29/2019 Received from: [facility] Abstracted into [facility] and sent to scan: YES Abstracted by: VIJI GOLD. 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 Plan of Treatment +--------+ + + + + | Date | Type | Specialty | Care Team | Description | +--------+ + + + + | 01/17/ | Appointment | Radiology | Bill Arevalo DNP | | | 2019 | | | [address] | | | | | | [place] | | | | | | [address] | | | | | | | | +--------+ + + + + | 01/17/ | Office | Vascular Surgery | Bill Arevalo DNP | | | 2019 | Visit | | [address] | | | | | | [place] | | | | | | [address] | | | | | | | | +--------+ + + + + | 05/22/ | Office | Nephrology | Mariana Cortez, | | | 2020 | Visit | | [address] | | | | | | [address] [place] | | | | | | [place] [address] | | | | | | [phone] | | | | | | | | +--------+ + + + + documented as of this encounter Procedures + +--------+ + + + | Procedure Name | Priori | Date/Time | Associated Diagnosis | Comments | | | ty | | | | + +--------+ + + + | SEDIMENTATION RATE | Routin | 08/29/2019 | | Results for this | | | e | 1:01 PM | | procedure are in the | | | | PDT | | results section. | + +--------+ + + + | CBC WITH | Routin | 08/29/2019 | | Results for this | | DIFFERENTIAL | e | 1:01 PM | | procedure are in the | | | | PDT | | results section. | + +--------+ + + + | C-REACTIVE PROTEIN | Routin | 08/29/2019 | | Results for this | | | e | 1:01 PM | | procedure are in the | | | | PDT | | results section. | + +--------+ + + + | COMPREHENSIVE | Routin | 08/29/2019 | | Results for this | | METABOLIC PANEL | e | 1:01 PM | | procedure are in the | | | | PDT | | results section. | + +--------+ + + + documented in this encounter Results C-Reactive Protein (08/29/2019 1:01 PM PDT) + +---------+ + + + | Component | Value | Ref Range | Performed | Pathologist | | | | | At | Signature | + +---------+ + + + | CRP | 6.6 (A) | 0 - 5 mg/L | EXTERNAL | | | | | | LAB | | + +---------+ + + + + + | Specimen | + + | Blood | + + + +---------+ + + | Performing | Address | City/State/Zipcode | Phone Number | | Organization | | | | + +---------+ + + | EXTERNAL LAB | | | | + +---------+ + + Comprehensive Metabolic Panel (08/29/2019 1:01 PM PDT) + + + + + + | Component | Value | Ref Range | Performed | Pathologist | | | | | At | Signature | + + + + + + | Glucose | 391 (A) | 65 - 99 mg/dL | EXTERNAL | | | | | | LAB | | + + + + + + | BUN, | 40 (A) | 8 - 25 mg/dL | EXTERNAL | | | External | | | LAB | | + + + + + + | Creatinine | 1.60 (A) | 0.70 - 1.30 | EXTERNAL | | | | | mg/dL | LAB | | + + + + + + | Na | 133 (A) | 135 - 145 | EXTERNAL | | | | | mmol/L | LAB | | + + + + + + | K | 4.9 | 3.5 - 5.3 | EXTERNAL | | | | | mmol/L | LAB | | + + + + + + | Cl | 101 | 97 - 109 mmol/L | EXTERNAL | | | | | | LAB | | + + + + + + | CO2 | 25 | 22 - 29 mmol/L | EXTERNAL | | | | | | LAB | | + + + + + + | Calcium | 8.5 | 8.5 - 10.2 | EXTERNAL | | | | | mg/dL | LAB | | + + + + + + | Total | 7.2 | 6.2 - 8.2 g/dL | EXTERNAL | | | Protein | | | LAB | | + + + + + + | Albumin, | 3.2 (A) | 3.5 - 5.2 g/dL | EXTERNAL | | | External | | | LAB | | + + + + + + | Bilirubin | 0.2 | 0.1 - 1.5 mg/dL | EXTERNAL | | | Total | | | LAB | | + + + + + + | AST | 17 | 0 - 40 U/L | EXTERNAL | | | | | | LAB | | + + + + + + | ALT | 25 | 0 - 41 U/L | EXTERNAL | | | | | | LAB | | + + + + + + | ALP, | 144 (A) | 40 - 129 U/L | EXTERNAL | | | External | | | LAB | | + + + + + + + + | Specimen | + + | Blood | + + + +---------+ + + | Performing | Address | City/State/Zipcode | Phone Number | | Organization | | | | + +---------+ + + | EXTERNAL LAB | | | | + +---------+ + + CBC with Differential (08/29/2019 1:01 PM PDT) + + + + + + | Component | Value | Ref Range | Performed | Pathologist | | | | | At | Signature | + + + + + + | WBC | 8.08 | 4.0 - 11.0 | EXTERNAL | | | | | x10'3/uL | LAB | | + + + + + + | Red Blood | 2.86 (A) | 3.8 - 5.2 | EXTERNAL | | | Cells | | x10'6/uL | LAB | | + + + + + + | HGB, | 8.78 (A) | 12 - 16 g/dL | EXTERNAL | | | External | | | LAB | | + + + + + + | HCT, | 26.19 (A) | 35 - 45 % | EXTERNAL | | | External | | | LAB | | + + + + + + | MCV | 91.47 | 81 - 99 fl | EXTERNAL | | | | | | LAB | | + + + + + + | MCH | 30.68 | 27 - 33 pg | EXTERNAL | | | | | | LAB | | + + + + + + | MCHC | 33.54 | 30 - 36 g/dL | EXTERNAL | | | | | | LAB | | + + + + + + | RDW | 13.29 | 10.5 - 16.0 % | EXTERNAL | | | | | | LAB | | + + + + + + | PLT, | 312 | 140 - 440 | EXTERNAL | | | External | | x10'3/uL | LAB | | + + + + + + | Lymphocytes | 16.80 (A) | 24 - 44 % | EXTERNAL | | | %, | | | LAB | | | External | | | | | + + + + + + | Neutrophils | 5.98 | 1.3 - 7.0 K/cmm | EXTERNAL | | | , Absolute, | | | LAB | | | External | | | | | + + + + + + | Lymphocytes | 1.36 | 0.8 - 3.1 K/cmm | EXTERNAL | | | , Absolute, | | | LAB | | | External | | | | | + + + + + + | Neutrophils | 74.00 (A) | 37 - 67 % | EXTERNAL | | | %, | | | LAB | | | External | | | | | + + + + + + | Monocytes | 4.90 (A) | 5 - 12 % | EXTERNAL | | | %, External | | | LAB | | + + + + + + | Eosinophils | 4.10 | 0 - 6 % | EXTERNAL | | | %, | | | LAB | | | External | | | | | + + + + + + | Basophils | 0.20 | 0 - 2 % | EXTERNAL | | | %, External | | | LAB | | + + + + + + | Monocytes, | 0.40 | 0.2 - 1.0 K/cmm | EXTERNAL | | | Absolute, | | | LAB | | | External | | | | | + + + + + + | Eosinophils | 0.33 | 0 - 0.8 K/cmm | EXTERNAL | | | , Absolute | | | LAB | | + + + + + + | Basophils, | 0.02 | 0.0 - 0.6 K/cmm | EXTERNAL | | | Absolute | | | LAB | | + + + + + + + + | Specimen | + + | Blood | + + + +---------+ + + | Performing | Address | City/State/Zipcode | Phone Number | | Organization | | | | + +---------+ + + | EXTERNAL LAB | | | | + +---------+ + + Sedimentation Rate (08/29/2019 1:01 PM PDT) + +--------+ + + + | Component | Value | Ref Range | Performed | Pathologist | | | | | At | Signature | + +--------+ + + + | ESR | 85 (A) | 0 - 20 mm/hr | EXTERNAL | | | | | | LAB | | + +--------+ + + + + + | Specimen | + + | Blood | + + + +---------+ + + | Performing | Address | City/State/Zipcode | Phone Number | | Organization | | | | + +---------+ + + | EXTERNAL LAB | | | | + +---------+ + + documented in this encounter Visit Diagnoses Not on filedocumented in this encounter"
--- OUTSIDE RECORDS SUMMARY | ~2019-11-09 | XMS | Encounter Summary ---
Demographics + + + | Address | [address] | | | [place] [address] | + + + | Home Phone [...] Author + + + | Author | [facility] | | | and [place] | + + + | Organization | [facility] | | [...] Team Providers + +------+ + | Care Cook Relief Name | Role | Phone | + +------+ + | Ronel Jacobson PA-C | PCP | | + +------+ + Reason for Visit + +--------+ + | Reason | Onset | Comments | | | Date | | + +--------+ + | Appointment | 07/22/ | | | | 2019 | | + +--------+ + Encounter Details +--------+ + + + + | Date | Type | Department | Care Team | Description | +--------+ + + + + | 07/22/ | Telephone | [facility] | Henok Luther MD | Appointment | | 2019 | | OTOLARYNGOLOGY [address] | [address] [place] [address] | | | | | [address] [facility] [address] | [address] | | | | | [place] | [address] | | | | | [address] | | | | | | [phone] | | | +--------+ + + + [...] this encounter Miscellaneous Notes Telephone Encounter - AddisonFrancisco leungJeanine L - 07/22/2018 11:56 AM PDTPatient called back and ca ncelled her apt, she just was not feeling well. elephone Encounter - [place] Jeanine Garibay - 07/22/2018 8:15 AM PDTPat ient called in and LVM stating she thinks she is coming down with a sinus infection. She is not sure if she should come in for her injection today or not. I spoke with Domenica and she s aid that if she has a fever than no or if she is just not feeling well than no she doesn't h ave to. She said others have come in with sinus infection's just because they know that is s omething they deal with. But if she is not feeling good than no she doesn't have to come in, her choice. I LVM letting her know this information. Waiting for a call back to know if she wants to cancel or not. Tdocumented in this encounter Plan of Treatment +--------+ + + + + | Date | Type | Specialty | Care Team | Description | +--------+ + + + + | 01/17/ | Appointment | Radiology | Bill Arevalo DNP | | | 2019 | | | [address] | | | | | | [place] | | | | | | [address] | | | | | | | | +--------+ + + + + | 01/17/ | Office | Vascular Surgery | Bill Arevalo DNP | | | 2019 | Visit | | [address] | | | | | | [place] | | | | | | [address] | | | | | | | | +--------+ + + + + | 05/22/ | Office | Nephrology | Mariana Cortez, | | | 2020 | Visit | | [address] | | | | | | [address] | | | | | | [place] [address] | | | | | | [phone] | | | | | | | | +--------+ + + + + documented as of this encounter Visit Diagnoses Not on filedocumented in this encounter"
--- OUTSIDE RECORDS SUMMARY | ~2019-11-09 | XMS | Encounter Summary ---
Demographics + + + | Address | [address] | | | [place] [address] | + + + | Home Phone [...] Author + + + | Author | [facility] | | | and [place] | + + + | Organization | [facility] | [...] Team Providers + +------+ + | Care Revenue Field Agent Name | Role | Phone | + +------+ + PCP | Unavailable | + +------+ + Reason for Visit + + + | Reason | Comments | + + + | Chronic Kidney | | | Disease | | + + + Evaluate & Treat (Routine) +--------+--------+ + + + + | Status | Reason | Specialty | Diagnoses / | Referred By | Referred To | | | | | Procedures | Contact | Contact | +--------+--------+ + + + + | Closed | | Nephrology | Diagnoses | Edy, | [place], | | | | | Unspecified | MD Orin | Mariana Hua, | | | | | essential | [address] | [address] | | | | hypertension | [address] [place] | [address] | | | | | | [place], [place] | [address] | | | | | Proteinuria | [id number] | [place], | | | | | Chronic | Phone: | [place] [address] | | | | | kidney | [phone] | Phone: | | | | | disease, | Fax: | [phone] | | | | | stage II | [phone] | Fax: | | | | | (mild) | | [phone] | | | | | Procedures | | | | | | | Evaluate & | | | | | | | treat | | | +--------+--------+ + + + + Encounter Details +--------+---------+ + + + | Date | Type | Department | Care Team | Description | +--------+---------+ + + + | 05/19/ | Office | [facility] | Mariana Cortez, | CKD (chronic kidney | | 2013 | Visit | NEPHROLOGY [address] | disease) stage 3, | | | | [address] | [address] [place] | GFR 30-59 ml/min | | | | [place] | [place] [address] | (Primary Dx); | | | | [address] | [phone] | Proteinuria; | | | | [phone] | | Hypertension; DM | | | | | | type 2 (diabetes | | | | | | mellitus, type 2); | | | | | | Renal tubular | | | | | | acidosis, type 4 | +--------+---------+ + + + Social History [...] + + + | Blood Pressure | 152/98 | 05/19/2013 9:35 AM | | | | | PDT | | + + + + + | Pulse | 84 | 05/19/2013 9:35 AM | | | | | PDT | | + + + + + | Temperature | - | - | | + + + + + | Respiratory Rate | - | - | | + + + + + | Oxygen Saturation | 99% | 05/19/2013 9:35 AM | | | | | PDT | | + + + + + | Inhaled Oxygen | - | - | | | Concentration | | | | + + + + + | Weight | 96.2 kg (212 lb) | 05/19/2013 9:35 AM | | | | | PDT | | + + + + + | Height | 160 cm (5' 3") | 05/19/2013 9:35 AM | | | | | PDT | | + + + + + | Body Mass Index | 37.55 | 05/19/2013 9:35 AM | | | | | PDT | | + + + + + documented in this encounter Patient Instructions Patient Instructions Mariana Cortez MD - 05/19/2013 9:55 AM PDTAvoid high potassium fo ods. Return in 6 months. T documented in this encounter Progress Notes Mariana Cortez MD - 05/19/2013 9:56 AM PDTFormatting of this note might be different f rom the original. Nephrology Follow-up Visit Visit date: 05/19/2013 Primary care provider: Orin Snow HPI: July Forte is a 42 y.o. female with proteinuric chronic kidney disease, likely due to diabetic nephropathy, type 2 DM, hypertension, and obesity. This is a 6 month f/u visit. Pt reports feeling well. Pt was evaluated by Dr. Edy alaniz, and was noted to have elevated BP. Pt was instructed to increase her Losartan to 100 mg QDAY, and to start Amlodipine 5 mg QDAY. Pt denies peripheral edema; pt reports she red uced her Bumex to 2 mg QDAY (from BID) for almost 2 months, and has not noticed an increase in her edema. Pt denies lightheadedness, chest pain, shortness of breath, urinary difficult y, joint pain or swelling. ROS: A 6-system review was performed, and was negative or noncontributory other than as sta [place] above. PMH: Patient Active Problem List Diagnosis Date Noted DM type 2 (diabetes mellitus, type 2) 10/13/2012 Hypertension 10/13/2012 Proteinuria 10/13/2012 CKD (chronic kidney disease) stage 3, GFR 30-59 ml/min ([facility]) 10/13/2012 Note Last Updated: 10/13/2012 Renal ultrasound 09/16/12: right kidney 13 cm, left kidney 12.4 cm. Proteinuric. Migraine headache Outpatient Prescriptions Marked as Taking for the 05/19/13 encounter (Office Visit) with Mary Ellen Cortez MD Medication Sig Dispense Refill albuterol (VENTOLIN HFA) 90 mcg/puff inhaler Inhale 2 puffs into the lungs every 6 hour s as needed. Alcohol Swabs 70 % PADS by Does not apply route. amLODIPine (NORVASC) 5 mg tablet Take 5 mg by mouth Daily. B-D UF III MINI PEN NEEDLES 31G X 5 MM [facility] CROW CONTOUR TEST strip 4 strips Daily. benzonatate (TESSALON) 100 mg capsule Take 100 mg by mouth 3 times daily as needed. Blood Glucose Monitoring Suppl (CONTOUR BLOOD GLUCOSE SYSTEM) JOANNA by Does not apply ro [place]. bumetanide (BUMEX) 0.5 mg tablet Take 2 mg by mouth Daily. cholecalciferol (VITAMIN D-3) 5000 UNITS TABS Take 5,000 Units by mouth Daily. cyanocobalamin (VITAMIN B-12) 500 mcg tablet Take 1,000 mcg by mouth Daily. fluticasone (FLONASE) 50 mcg/nasal spray 1 spray by Nasal route Daily. folic acid 1 mg tablet Take 1 mg by mouth Daily. glipiZIDE (GLUCOTROL XL) 5 mg 24 hr tablet Take 5 mg by mouth Daily. loratadine (CLARITIN) 10 mg tablet Take 10 mg by mouth Daily. losartan (COZAAR) 50 mg tablet Take 100 mg by mouth Daily. metoprolol (TOPROL-XL) 100 MG 24 hr tablet Take 100 mg by mouth Daily. simvastatin (ZOCOR) 10 mg tablet Take 10 mg by mouth nightly. sitagliptan (JANUVIA) 50 MG tablet Take 1 tablet by mouth 2 times daily. 60 tablet 0 TechLite Lancets [facility] Physical Exam: Filed Vitals: 05/19/13 0935 BP: 152/98 Pulse: 84 Height: 1.6 m (5' 3") Weight: 96.163 kg (212 lb) SpO2: 99% Constitutional: Appears well-developed and well-nourished. No distress. Cardiovascular: Normal rate, regular rhythm and normal heart sounds. Exam reveals no grossman p and no friction rub. No murmur heard. No peripheral edema. Lungs: Respiratory effort normal and breath sounds normal. No crackles or wheezes. Abdominal: Soft. Bowel sounds are present. Musculoskeletal: No joint swelling. Neurological: Alert. Memory intact. Reviewed labs with patient. Office Visit on 05/19/2013 Component Date Value Range Status POC COLOR UA 05/19/2013 Yellow Final POC CLARITY UA 05/19/2013 Clear Final POC GLUCOSE UA 05/19/2013 250 mg/dL Final POC BILIRUBIN UA 05/19/2013 Negative Final POC KETONES UA 05/19/2013 Negative Negative Final POC SPECIFIC GRAVITY UA 05/19/2013 1.030 Final POC BLOOD UA 05/19/2013 Trace Intact Final POC PH UA 05/19/2013 6.0 Final POC PROTEIN UA 05/19/2013 300 mg/dL Final > POC UROBILINOGEN UA 05/19/2013 0.2 E.U./dL Final POC NITRITE UA 05/19/2013 Negative Final POC LEUKOCYTE ESTERASE UA 05/19/2013 Trace Final Abstract on 05/11/2013 Component Date Value Range Status Creatinine, External 05/10/2013 1.1 Final eGFR, External 05/10/2013 54 Final Cholesterol, Total, External 05/10/2013 234 Final HDL Cholesterol, External 05/10/2013 52.4 Final Triglycerides, External 05/10/2013 225 Final LDL Cholesterol, External 05/10/2013 137 Final ALT, External 05/10/2013 9 Final AST, External 05/10/2013 9 Final NA 05/10/2013 139 Final K 05/10/2013 5.4 Final CL 05/10/2013 106 Final CO2 05/10/2013 23 Final BUN 05/10/2013 33 Final GLUCOSE 05/10/2013 145 Final CALCIUM 05/10/2013 8.7 Final BILIRUBIN TOTAL 05/10/2013 0.2 Final ALK PHOS 05/10/2013 67 Final ALBUMIN 05/10/2013 3.4* 3.5 - 5.0 g/dL Final Abstract on 05/11/2013 Component Date Value Range Status PTH INTACT 05/10/2013 9.36 Final Vit D, 25-Hydroxy 05/10/2013 28 Final PRO/CREA RATIO,URINE 05/10/2013 1.8 Final ASSESSMENT AND PLAN: 1. Chronic kidney disease stage 3, proteinuric, likely due to diabetic nephropathy. Kidney function is improved since 01/17/13 (serum Cr 1.5). However, her UPCR is increased from 0.6 to 1.8. Agree with increasing Losartan to 100 mg QDAY for anti-proteinuria and anti-hypert ensive effects. Advised pt to avoid high potassium foods given tendency for hyperkalemia, l ikely related to RTA type 4. -serum creatinine closer to prior baseline; eGFR has declined below 60 mL/min 2. Hypertension: Clinic BP is elevated. Volume status looks good on current dose of Bumex (2 mg QDAY). 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 Given her history of hypertension, I do not recommend treating with fludrocortisone. -continue low potassium diet -serum bicarb level is acceptable; no need for bicarb replacement at this time 4. DM type 2: Last HbA1c 7.0% on 05/10/[address] Snow' record. Doing well. 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 PTH is within normal. Vit D 28; on supplementation. 6. Hyperlipidemia: Pt reports she had been off her simvastatin for unclear reason; she will restart this medication today. Return in 6 months: renal, ua, urine prot/cr ratio. Cc: Dr. Orin Snow documented in this encounter Plan of Treatment +--------+ + + + + | Date | Type | Specialty | Care Team | Description | +--------+ + + + + | 01/17/ | Appointment | Radiology | Bill Arevalo, [facility] | | | 2019 | | | [address] | | | | | | [place], [place] | | | | | | [address] | | | | | | | | +--------+ + + + + | 01/17/ | Office | Vascular Surgery | Bill Arevalo DNP | | | 2019 | Visit | | [address] | | | | | | [address] [address] [place] | | | | | | [address] | | | | | | | | +--------+ + + + + | 05/22/ | Office | Nephrology | Mariana Cortez, | | | 2020 | Visit | | MD [address] | | | | | | [address] [place] | | | | | | [place] [address] | | | | | | [phone] | | | | | | | | +--------+ + + + + documented as of this encounter Procedures + +--------+ + + + | Procedure Name | Priori | Date/Time | Associated Diagnosis | Comments | | | ty | | | | + +--------+ + + + | POCT URINALYSIS | Routin | 05/19/2013 | Proteinuria CKD | Results for this | | DIPSTICK | e | 9:32 AM | (chronic kidney | procedure are in the | | | | PDT | disease) stage 3, | results section. | | | | | GFR 30-59 ml/min | | + +--------+ + + + documented in this encounter Results POCT Urinalysis Dipstick Non-Automated (05/19/2013 9:32 AM PDT) + + + + + + | Component | Value | Ref Range | Performed | Pathologist | | | | | At | Signature | + + + + + + | Color, UA, | Yellow | | | | | POC | | | | | + + + + + + | Clarity, | Clear | | | | | UA, POC [...] | 1.030 | | | | | [place], | | | | | | UA, POC | | | | | + + + + + + | Blood, UA, | Trace Intact | | | | | POC | | | | | + + + + + + | pH, UA, POC | 6.0 | | | | + + + + + + | Protein, | 300 mg/dLComment: > | | | | | UA, POC [...] + + + + | Leukocyte | Trace | | | | | Esterase, | [...] + + | Proteinuria | + + | Hypertension Unspecified essential hypertension | + + | DM type 2 (diabetes mellitus, type 2) Type II or unspecified type diabetes mellitus | | without mention of complication, not stated as uncontrolled | + + | Renal tubular acidosis, type 4 Other specified disorders resulting from impaired | | renal function | + + documented in this encounter
--- OUTSIDE RECORDS SUMMARY | ~2019-11-09 | XMS | Encounter Summary ---
Demographics + + + | Address | [address] | | | [place] [address] | + + + | Home Phone | | + + + | Preferred Language | Unknown | + + + | Marital Status | Single | + + + | Holiness Affiliation | Unknown | + + + | Race | or | + + + | Ethnic Group | Not or | + + + Author + + + | Author | [facility] | | | and [place] | + + + | Organization | [facility] | | | [...] Team Providers + +------+ + | Care Direct Care Provider Name | Role | Phone | + [...] | | | | to pollen | [place] [address] | [address] Phone: | | | | | Allergic | Phone: | [phone] | | | | | rhinitis due | [phone] | Fax: | | | | | to dust | Fax: | [phone] | | | | | Mild | [phone] | | | | | | intermittent [...] | +--------+ + + + + | 11/12/ | Clinical | [facility] | Henok Luther MD | Extrinsic asthma, | | 2018 | Support | [address]ARYNGOLOGY [address] | [address] | unspecified asthma | | | | [address] | [address] [place] | severity, | | | | [place] | [address] | unspecified whether | | | | [address] | | complicated, | | | | [phone] | | unspecified whether | | | [...] encounter Progress Notes Domenica Meredith RN - 11/12/2017 3:45 PM PDTPatient presents with epi-pen & inhaler. No ac tive wheezing or cough associated with asthma today. Denies delayed reaction from previous a llergy injection. No fever or allergy related rash. No recent heavy exposure to allergens. N o plans for strenuous exercise immediately before or after injection today.Electronically si gned by Domenica Meredith RN at 11/12/2017 4:03 PM PDTdocumented in this encounter Plan of [...] [place] | | | | | | [address] | | | | | | | | +--------+ + + + + | 05/22/ | Office | Nephrology | Mariana Cortez, | | | 2020 | Visit | | MD [address] | | | | | | [address] [place] | | | | | | [place] [address] | | | | | | [phone] | | | | | | | [...]
--- OUTSIDE RECORDS SUMMARY | ~2019-11-09 | XMS | Encounter Summary ---
Demographics + + + | Address | [address] | | | [place] [address] | + + + | Home Phone | | + + + | Preferred Language | Unknown | + + + | Marital Status | Single | + + + | Latter-Day Affiliation | Unknown | + + + | Race | or | + + + | Ethnic Group | Not or | + + + Author + + + | Author | [facility] | | | and [place] | + + + | Organization | [facility] | | | [...] | | | | to pollen | [place] [address] | [address] Phone: | | | | | Allergic | Phone: | [phone] | | | | | rhinitis due | [phone] | Fax: | | | | | to dust | Fax: | [phone] | | | | | Mild | [phone] | | | | | | intermittent | | | | | | | asthma, | | | | | | | uncomplicate | | | | | | | d | | | | | | | Procedures | | | | | | | AR | | | | | | | IMMUNOTHERAP | | | | | | | Y, ONE | | | | | | | INJECTION | | | | | | | AR PROFES | | | | | | | SVC,IMMUNOTH | | | | | | | ER,SINGLE/MU | | | | | | | LT AGS | | | +--------+ + + + + + Encounter Details +--------+ + + + + | Date | Type | Department | Care Team | Description | +--------+ + + + + | 10/01/ | Clinical | [facility] | Henok Luther MD | Mild intermittent | | 2018 | Support | OT[address]ARYNGOLOGY [address] | [address] | asthma, | | | | [address] | [address] [place] | uncomplicated | | | | [place] | [address] | (Primary Dx); | | | | [address] | | Non-seasonal | | | | [phone] | | allergic rhinitis | | | | | | due to pollen; | | | | | | Allergic rhinitis | | | | | | due to dust; | | | | | | Allergic [...] encounter Progress Notes Narda Lay RN - 10/01/2017 3:45 PM PDTPatient presents with epi-pen & inhaler. No a ctive wheezing or cough associated with asthma today. Denies delayed reaction from previous allergy injection. No fever or allergy related rash. No recent heavy exposure to allergens. No plans for strenuous exercise immediately before or after injection today. documented in this e ncounter Plan of [...] [place] | | | | | | [address] | | | | | | | | +--------+ + + + + | 01/17/ | Office | Vascular Surgery | Bill Arevalo DNP | | | 2019 | Visit | | [address] | | | | | | [place] | | | | | | [address] | | | | | | | | +--------+ + + + + | 05/22/ | Office | Nephrology | Mariana Cortez, | | | 2020 | Visit | | [address] | | | | | | [address] [place] | | | | | | [place] [address] | | | | | | [phone] | | | | | | | [...] to other allergen | + + | Allergic rhinitis due to animal (cat) (dog) hair and dander | + + documented in this encounter"
--- OUTSIDE RECORDS SUMMARY | ~2019-11-09 | XMS | Encounter Summary ---
Demographics + + + | Address | [address] | | | [place] [address] | + + + | Home Phone [...] + + + | Author | [facility] | | | and [place] | + + + | Organization | [facility] | | | and [place] | + + + | Address | Unknown | + + + | Phone | Unavailable | + + + Support + + +---------+ + | Name | Relationship | Address | Phone | + + +---------+ + | Karnia Paddy | ECON | Unknown | | + + +---------+ + | Rebeca Forte | ECON | Unknown | | + + +---------+ + Care Team Providers + +------+ + | Care Supervisor Feed House Name | Role | Phone | + [...] | | | rhinitis due | [place] [address] | [address] Phone: | | | | | to animal | Phone: | [phone] | | | | | (cat) (dog) | [phone] | Fax: | | | | | hair and | Fax: | [phone] | | | | | dander | [phone] | | | | | | Allergic [...] | +--------+ + + + + | 06/03/ | Clinical | [facility] [place] | Henok Luther MD | Allergic rhinitis | | 2016 | Support | [address]ARYNGOLOGY [address] | [address] | due to pollen | | | | [address] | [address] [place] | (Primary Dx); | | | | [place] | [address] | Allergic rhinitis | | | | [address] | | due to animal (cat) | | | | [phone] | | (dog) hair and | | [...] + documented as of this encounter Progress Zoila Willis RN - 06/04/2015 3:45 PM PDTFormatting of this note might be differ ent from the original. Patient presents with epi-pen & inhaler. No active wheezing or cough associated with asthma today. Denies delayed reaction from previous allergy injection. No fever or allergy related rash. No recent heavy exposure to allergens. No plans for strenuous exercise immediately be fore or after injection today. TREATMENT SET July Forte Weeds & Grass: 86 06/04/2015 Allergen Extract Amount/ml Dilution Lot # Expiration Date Ragweed Mix Pigweed 0.2 2 [id number] 01/20/18 Kochia 0.2 1 639275 01/20/18 Humphrey's Quarter 0.2 1 147968 03/19/18 Luther Elder 0.2 C 297886 01/20/18 Bangladeshi Plantain 0.2 C 526285 10/19/17 False Ragweed 0.2 1 341037 03/19/18 Ecuadorean Thistle 0.2 3 600479 03/19/18 Sagebrush 0.2 3 885015 01/27/18 Sheep Gans Dandelion 0.2 C 120066 01/20/18 Atriplex Mix 0.2 3 468338 03/19/18 #7 Grass Mix 0.2 3 801349 11/27/16 Bermuda Grass 0.2 C 475989 11/27/16 Sameer Grass 0.2 C 457159 03/19/18 Tensas 0.2 2 761079 03/19/18 Total Allergens: 2.8 ml. Saline: 0.2 ml. Total Volume: 3.0 ml. TREATMENT SET July Forte TREES, DUST, EPIDERMAL: 87 06/04/2015 Allergen Extract Amount/mL Dilution Lot # Expiration Date [place] Mix [place] 0.2 2 222569 03/19/18 Sugar Maple Western [place] 0.2 2 075386 04/30/17 Calloway 0.2 2 421699 12/02/17 Spring Birch White Tae [place] Mark Anthony 0.2 2 562293 10/19/17 Juniper 0.2 2 665658 03/19/18 Black [place] 0.2 C 545163 03/19/18 Ecuadorean Neopit 0.2 1 792284 03/19/18 Mites, Farinae 0.1 3 167679 01/21/17 Mites, Ptero. 0.1 3 959455 10/22/16 Cat Hair 0.1 C 269117 09/10/16 Dog Epi. Horse Epi Total Allergens : 1.7 ml. Saline: 0.8 ml. Total Volume: 2.5 ml. documented in this encounter Miscellaneous Notes Addendum Note - Zoila Benitez RN - 06/04/2015 4:52 PM PDT Addended by: ZOILA BHATIA on: 06/04/2015 16:52 Modules accepted: Level of Service documented i n this encounter Plan of Treatment +--------+ + [...] [place] | | | | | | [address] | | | | | | | | +--------+ + + + + | 05/22/ | Office | Nephrology | Mariana Cortez, | | | 2020 | Visit | | [address] | | | | | | [address] [facility] | | | | | | [place] [address] | | | | | | [phone] | | | | | | | [...]
--- OUTSIDE RECORDS SUMMARY | ~2019-11-09 | XMS | Encounter Summary ---
Demographics + + + | Address | [address] | | | [place] [address] | + + + | Home Phone [...] Author + + + | Author | [facility] | | | and [place] | + + + | Organization | [facility] | | [...] Team Providers + +------+ + | Care Photograph Mounter Name | Role | Phone | + [...] | +--------+ + + + + | 04/16/ | Clinical | [facility] [place] | Henok Luther MD | Extrinsic asthma, | | 2018 | Support | [address]ARYNGOLOGY [address] | [address] | unspecified asthma | | | | [address] | [address] [place], [place] | severity, | | | | [place], [place] | [address] | unspecified whether | | | | [address] | | complicated, | | | | [phone] | | unspecified whether | | | | | | persistent (Primary | | | | | | Dx); Non-seasonal | | | | | | allergic rhinitis | | | | | | due to pollen, | | | | | | unspecified | | | | | | chronicity; Allergic | | | | | | rhinitis due to | | | | | | animal hair and | | | | | | dander, unspecified | | | | | | chronicity; Allergic | | | | | | rhinitis due to | | | | | | dust mite | +--------+ + + + [...] encounter Progress Notes Domenica Meredith RN - 04/16/2017 3:30 PM PSTPatient presents with epi-pen & inhaler. No ac tive wheezing or cough associated with asthma today. Denies delayed reaction from previous a llergy injection. No fever or allergy related rash. No recent heavy exposure to allergens. N o plans for strenuous exercise immediately before or after injection today.Electronically si gned by Domenica Meredith RN at 04/16/2017 3:42 PM PSTdocumented in this encounter Plan of [...] [place] | | | | | | [address] | | | | | | | | +--------+ + + + + | 01/17/ | Office | Vascular Surgery | Bill Arevalo DNP | | | 2019 | Visit | | [address] | | | | | | [place] | | | | | | [address] | | | | | | | | +--------+ + + + + | 05/22/ | Office | Nephrology | Mariana Cortez W, | | | 2020 | Visit | | [address] | | | | | | [address] [place] | | | | | | [place] [address] | | | | | | [phone] | | | | | | | | +--------+ + + + + documented as of this encounter Visit Diagnoses + + | Diagnosis | + + | Extrinsic asthma, unspecified asthma severity, unspecified whether complicated, | | unspecified whether persistent - Primary | + + | Non-seasonal allergic rhinitis due to pollen, unspecified chronicity | + + | Allergic rhinitis due to animal hair and dander, unspecified chronicity | + + | Allergic rhinitis due to dust mite | + + documented in this encounter"
--- OUTSIDE RECORDS SUMMARY | ~2019-11-09 | XMS | Encounter Summary ---
Demographics + + + | Address | [address] | | | [place] [address] | + + + | Home Phone | | + + + | Preferred Language | Unknown | + + + | Marital Status | Single | + + + | Mu-Ism Affiliation | Unknown | + + + | Race | or | + + + | Ethnic Group | Not or | + + + Author + + + | Author | [facility] | | | and [place] | + + + | Organization | [facility] | | [...] Team Providers + +------+ + | Care Rubber Mold Maker Name | Role | Phone | + +------+ + | Ronel Jacobson PA-C | PCP | | + +------+ + Reason for Visit + + + | Reason | Comments | + + + | Chronic Kidney | 1 year f/u | | Disease | | + + + Evaluate & Treat (Routine) +--------+--------+ + + + + | Status | Reason | Specialty | Diagnoses / | Referred By | Referred To | | | | | Procedures | Contact | Contact | +--------+--------+ + + + + | Closed | | Nephrology | Diagnoses | Bourret, | Cortez, | | | | | Chronic | Ronel H, | Mariana W, | | | | | kidney | PA-C 0 | MD [address] | | | | | disease, | [address] | [address] | | | | | stage 4 | [place] | [address] | | | | | (severe) | [address] | MICHELLE MARTINEZ, | | | | | (HCC) | [facility] | [place] [address] | | | | | Procedures | [place] | Phone: | | | | | [place] OFFICE | [address] | [phone] | | | | | OUTPATIENT | Phone: | Fax: | | | | | VISIT 25 | [phone] | [phone] | | | | | MINUTES | Fax: | | | | | | | [phone] | | +--------+--------+ + + + + Encounter Details +--------+---------+ + + + | Date | Type | Department | Care Team | Description | +--------+---------+ + + + | 05/11/ | Office | [facility] | Mariana Cortez, | CKD (chronic kidney | | 2019 | Visit | NEPHROLOGY [address] | [address] | disease) stage 3, | | | | [address] | [address] [place] | GFR 30-59 ml/min | | | | [address] | [place] [address] | ([facility]) (Primary Dx); | | | | [address] | [phone] | Essential | | | | [phone] | | hypertension; Renal | | | | | | tubular acidosis, | | | | | | type 4; Type 2 | | | | | | diabetes mellitus | | | | | | with stage 3 chronic | | | | | | kidney disease, | | | | | | without long-term | | | | | | current use of | | | | | | insulin (HCC) | +--------+---------+ + + + Social History [...] + + + | Blood Pressure | 124/80 | 05/11/2018 4:31 PM | | | | | PDT | | + + + + + | Pulse | 92 | 05/11/2018 4:31 PM | | | | | PDT | | + + + + + | Temperature | 37.3 C (99.1 F) | 05/11/2018 4:31 PM | | | | | PDT | | + + + + + | Respiratory Rate | 14 | 05/11/2018 4:31 PM | | | | | PDT | | + + + + + | Oxygen Saturation | 100% | 05/11/2018 4:31 PM | | | | | PDT | | + + + + + | Inhaled Oxygen | - | - | | | Concentration | | | | + + + + + | Weight | 91.1 kg (200 lb 13.4 | 05/11/2018 4:31 PM | | | | oz) | PDT | | + + + + + | Height | 160 cm (5' 3") | 05/11/2018 4:31 PM | | | | | PDT | | + + + + + | Body Mass Index | 35.58 | 05/11/2018 4:31 PM | | | | | PDT | | + + + + + documented in this encounter Progress Notes Mariana oCrtez MD - 05/11/2018 4:30 PM PDTFormatting of this note might be different f rom the original. Nephrology Follow-up Visit Visit date: 05/11/2018 Primary care provider: Ronel Jacobson PA-C Chief Complaint Patient presents with Chronic Kidney Disease 1 year f/u HPI: July Forte is a 47 y.o. female with chronic kidney disease, RTA type 4, hyperte nsion, type 2 diabetes mellitus. Pt states she had a gastric ulcer with anemia in March 2018. Pt reports she had an endo scopy. Pt is on PPI. Pt has a chronic cough, productive of greenish sputum. Pt attributes the cough to allergie s. Pt denies chest pain, edema. Pt reports she was intolerant of metformin, glipizide. Pt reports insulin dropped her bloo d sugars too low. Currently, pt is only on glyburide. Her serum glucose level is above 300 . Pt is currently on her period. ROS: A 6-system review was performed, and was negative or noncontributory other than as [place] above. PMH: Patient Active Problem List Diagnosis Date Noted Smoker - Daily 02/23/2017 Priority: Low Obesity (BMI 35.0-39.9 without comorbidity) 02/23/2017 Deviated nasal septum 11/12/2016 Hypertrophy of nasal turbinates 11/12/2016 Renal tubular acidosis, type 4 Type 2 diabetes mellitus with stage 3 chronic kidney disease, without long-term current use of insulin ([facility]) 10/13/2012 Hypertension 10/13/2012 Proteinuria 10/13/2012 CKD (chronic kidney disease) stage 3, GFR 30-59 ml/min ([facility]) 10/13/2012 Note Last Updated: 10/13/2012 Renal ultrasound 09/16/12: right kidney 13 cm, left kidney 12.4 cm. Proteinuric. Migraine headache Outpatient Prescriptions Marked as Taking for the 05/11/18 encounter (Office Visit) with Dora Cortez MD Medication Sig Dispense Refill albuterol 90 mcg/puff inhaler Inhale 2 puffs into the lungs every 6 hours as needed. Alcohol Swabs 70 % PADS by Does not apply route. ascorbic acid (VITAMIN C) 500 mg tablet Take 500 mg by mouth Daily. B-D UF III MINI PEN NEEDLES 31G X 5 MM [facility] CONTOUR TEST strip 4 strips Daily. Blood Glucose Monitoring Suppl (CONTOUR BLOOD GLUCOSE SYSTEM) JOANNA by Does not apply ro robinson. bumetanide (BUMEX) 0.5 mg tablet Take 2 tablets by mouth 2 times daily. 120 tablet 11 cholecalciferol (VITAMIN D-3) 2000 units TABS Take 2,000 Units by mouth Daily. cyanocobalamin (VITAMIN B-12) 500 mcg tablet Take 1,000 mcg by mouth Daily. EPIPEN 2-IGNACIO 0.3 MG/0.3ML injection Inject 0.3 mLs into the muscle as needed for Anaphy laxis (okay to use generic). 2 each 1 ferrous sulfate 325 mg tablet Take 325 mg by mouth daily (with breakfast). fluticasone (FLONASE) 50 mcg/nasal spray 1 spray by Nasal route Twice daily as needed. fluticasone-salmeterol (ADVAIR HFA) 230-21 MCG/ACT inhaler Inhale 1 puff into the lungs 2 times daily. folic acid 1 mg tablet Take 1 mg by mouth Daily. gabapentin (NEURONTIN) 300 mg capsule Take 300 mg by mouth 3 times daily. glyBURIDE (DIABETA) 5 mg tablet Take 10 mg by mouth daily (with breakfast). Loratadine 10 MG CAPS Take 10 mg by mouth. Magnesium 100 MG CAPS Take 100 mg by mouth Daily. metoprolol succinate (TOPROL-XL) 25 mg 24 hr tablet Take 25 mg by mouth Daily. mometasone-formoterol (DULERA) 200-5 mcg/puff inhaler Inhale 2 puffs into the lungs Twi ce Daily. montelukast (SINGULAIR) 5 mg chewable tablet Take 10 mg by mouth nightly. rOPINIRole (REQUIP) 1 mg tablet Take 1 mg by mouth nightly. rosuvastatin (CRESTOR) 20 mg tablet Take 20 mg by mouth nightly. sodium bicarbonate 650 mg tablet Take 1 tablet by mouth Daily. 90 tablet 3 TechLite Lancets MISC Physical Exam: Vitals: 05/11/18 1631 BP: 124/80 Pulse: 92 Resp: 14 Temp: 37.3 C (99.1 F) TempSrc: Temporal SpO2: 100% Weight: 91.1 kg (200 lb 13.4 oz) Height: 1.6 m (5' 3") Constitutional: Appears well-developed and well-nourished. No distress. Cardiovascular: Normal rate, regular rhythm and normal heart sounds. No peripheral edema. Lungs: Respiratory effort normal. Rhonchi throughout right lung. Abdominal: Soft. Bowel sounds are present. Skin: Skin is warm. Neurological: Alert. Memory intact. Reviewed labs with patient. Office Visit on 05/11/2018 Component Date Value Ref Range Status Color, UA, POC 05/11/2018 Red* Yellow, Light Yellow Final Clarity, UA, POC 05/11/2018 Cloudy Final Glucose, UA, POC 05/11/2018 >=1000 mg/dL* Negative Final Bilirubin, UA, POC 05/11/2018 Negative Negative Final Ketones, UA, POC 05/11/2018 Negative Negative, 100 mg/dL Final Specific Hannacroix, UA, POC 05/11/2018 1.010 1.001 - 1.030 Final Blood, UA, POC 05/11/2018 Large* Negative Final pH, UA, POC 05/11/2018 5.0 5.0, 6.0, 7.0, 8.0, 5.5, 6.5, 7.5 Final Protein, UA, POC 05/11/2018 100 mg/dL* Negative Final Urobilinogen, UA, POC 05/11/2018 0.2 0.2, Negative, Normal, < 0.2 mg/dL, 1 mg/dL, < 0. 2 E.U./dl, 1.0 E.U./dL, 0.2 mg/dL Final Nitrite, UA, POC 05/11/2018 Negative Negative Final Leukocyte Esterase, UA, POC 05/11/2018 Trace* Negative Final Abstract on 05/11/2018 Component Date Value Ref Range Status Creatinine, External 05/10/2018 1.6 Final eGFR, External 05/10/2018 37 Final WBC, External 05/10/2018 10.29 Final HGB, External 05/10/2018 10.94 Final HCT, External 05/10/2018 32.47 Final PLT, External 05/10/2018 332 Final RBC, External 05/10/2018 3.75 Final MCV, External 05/10/2018 87 Final RDW, External 05/10/2018 17.48 Final UA Blood, External 05/10/2018 250 Final UA Glucose, External 05/10/2018 1000 Final UA Ketones, External 05/10/2018 negative Final UA Ph, External 05/10/2018 5.0 Final UA Proteins, External 05/10/2018 trace Final UA RBC, External 05/10/2018 50 Final UA Specific Hannacroix, External 05/10/2018 1.024 Final UA Leukocyte Esterase, External 05/10/2018 negative Final Sodium, External 05/10/2018 133 Final Potassium, External 05/10/2018 5.0 Final Chloride, External 05/10/2018 99 Final Carbon Dioxide, External 05/10/2018 18 Final Calcium, External 05/10/2018 8.9 Final Protein, Total, External 05/10/2018 7.0 Final Albumin, External 05/10/2018 3.6 Final Bilirubin, Total, External 05/10/2018 0.3 Final ALP, External 05/10/2018 99 Final AST, External 05/10/2018 12 Final ALT, External 05/10/2018 11 Final Glucose, External 05/10/2018 354 Final BUN, External 05/10/2018 46 Final WBC UA 05/10/2018 10 /HPF Final Color 05/10/2018 Yellow Light Yellow, Yellow Final Clarity 05/10/2018 Clear Final Bacteria, UA 05/10/2018 1+ Final SQUAMOUS EPITHELIAL UA 05/10/2018 15-25* 0 - 2 /LPF Final Nitrite, Urine 05/10/2018 Negative Negative Final Abstract on 05/11/2018 Component Date Value Ref Range Status Protein/Creatinine Ratio, External 05/10/2018 0.370* 0.2 Final Abstract on 04/13/2018 Component Date Value Ref Range Status Creatinine, External 04/12/2018 1.7 Final eGFR, External 04/12/2018 34 Final WBC, External 04/12/2018 7.96 Final HGB, External 04/12/2018 9.76 Final HCT, External 04/12/2018 29.4 Final PLT, External 04/12/2018 347 Final RBC, External 04/12/2018 3.42 Final MCV, External 04/12/2018 86 Final RDW, External 04/12/2018 21.18 Final Sodium, External 04/12/2018 135 Final Potassium, External 04/12/2018 5.1 Final Chloride, External 04/12/2018 101 Final Carbon Dioxide, External 04/12/2018 21 Final Calcium, External 04/12/2018 9.1 Final Phosphorus, External 04/12/2018 4.1 Final Albumin, External 04/12/2018 3.7 Final Glucose, External 04/12/2018 357 Final BUN, External 04/12/2018 52 Final ASSESSMENT AND PLAN: 1. 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 Serum creatinine is around baseline, 1.5 mg/dL. UPCR remains sub-nephropathic. On losartan 25 mg daily. 2. Essential hypertension Clinic BP is at goal. No edema. 3. Renal tubular acidosis, type 4 On sodium bicarbonate. Serum bicarbonate level is <20. Instructed pt to make sure she is taking her bicarbonate d aily. 4. Type 2 diabetes mellitus with stage 3 chronic kidney disease, without long-term current use of insulin ([facility]) Serum glucose level is very elevated. On glyburide only. Recommend pt f/u with primary care for additional intervention, such as Januvia (25 mg asmita y), Byetta (2.5 mcg SQ BID). 5. Cough Rhonchorous on exam. Pt has inhalers. Provided a script for azithromycin. F/u with primary care if no improvement. Return in 1 year or sooner as needed. documented in this encounter Plan of Treatment [...] ST | | | | | | [address] [facility] | | | | | | [place] [address] | | | | | | [phone] | | | | | | | | +--------+ + + + + documented as of this encounter Procedures + +--------+ + + + | Procedure Name | Priori | Date/Time | Associated Diagnosis | Comments | | | ty | | | | + +--------+ + + + | LABS - EXTERNAL SCAN | | 05/09/2019 | | Results for this | | | | 12:00 AM | | procedure are in the | | | | PDT | | results section. | + +--------+ + + + | LABS - EXTERNAL SCAN | | 11/22/2018 | | Results for this | | | | 12:00 AM | | procedure are in the | | | | PDT | | results section. | + +--------+ + + + | POCT URINALYSIS, | Routin | 05/11/2018 | CKD (chronic | Results for this | | AUTO WITH CONF | e | 4:18 PM | kidney disease) | procedure are in the | | | | PDT | stage 3, GFR 30-59 | results section. | | | | | ml/min (HCC) | | + +--------+ + + + | LABS - EXTERNAL SCAN | | 05/10/2018 | | Results for this | | | | 12:00 AM | | procedure are in the | | | | PDT | | results section. | + +--------+ + + + documented in this encounter Results LABS - EXTERNAL SCAN (05/09/2019 12:00 AM PDT) + + + | Narrative | Performed At | + + + | Ordered by an | | | unspecified provider. | | + + + LABS - EXTERNAL SCAN (11/22/2018 12:00 AM PDT) + + + | Narrative | Performed At | + + + | Ordered by an | | | unspecified provider. | | + + + POCT Urinalysis Dipstick Automated (05/11/2018 4:18 PM PDT) + + + + + + | Component | Value | Ref Range | Performed | Pathologist | | | | | At | Signature | + + + + + + | Color, UA, | Red (A) | Yellow, Light | | | | POC | | Yellow | | | + + + + + + | Clarity, | Cloudy | | | | | UA, POC | | | | | + + + + + + | Glucose, | >=1000 mg/dL (A) | Negative | | | | UA, POC | | | | | + + + + + + | Bilirubin, | Negative | Negative | | | | UA, POC | | | | | + + + + + + | Ketones, | Negative | Negative, 100 | | | | UA, POC | | mg/dL | | | + + + + + + | Specific | 1.010 | 1.001 - 1.030 | | | | Hannacroix, | | | | | | UA, POC | | | | | + + + + + + | Blood, UA, | Large (A) | Negative | | | | POC | | | | | + + + + + + | pH, UA, POC | 5.0 | 5.0, 6.0, 7.0, | | | | | | 8.0, 5.5, 6.5, | | | | | | 7.5 | | | + + + + + + | Protein, | 100 mg/dL (A) | Negative | | | | UA, POC | | | | | + + + + + + | Urobilinoge | 0.2 | 0.2, Negative, | | | | n, UA, POC | | Normal, < 0.2 | | | | | | mg/dL, 1 mg/dL, | | | | | | < 0.2 E.U./dl, | | | | | | 1.0 E.U./dL, | | | | | | 0.2 mg/dL | | | + + + + + + | Nitrite, | Negative | Negative | | | | UA, POC | | | | | + + + + + + | Leukocyte | Trace (A) | Negative | | | | Esterase, | | | | | | UA, POC | | | | | + + + + + + | Reducing | | | | | | Substances, | | [...] + + | Urine | + + LABS - EXTERNAL SCAN (05/10/2018 12:00 AM PDT) + + + | Narrative | Performed At | + + + | Ordered by an | | | unspecified provider. | | + + + documented in this encounter Visit Diagnoses + + | Diagnosis | + + | CKD (chronic kidney disease) stage 3, GFR 30-59 ml/min - Primary Chronic kidney | | disease, Stage III (moderate) | + + | Essential hypertension Unspecified essential hypertension | + + | Renal tubular acidosis, type 4 Other specified disorders resulting from impaired | | renal function | + + | Type 2 diabetes mellitus with stage 3 chronic kidney disease, without long-term | | current use of insulin (HCC) | + + documented in this encounter
--- OUTSIDE RECORDS SUMMARY | ~2019-11-09 | XMS | Encounter Summary ---
Demographics + + + | Address | [address] | | | [place] [address] | + + + | Home Phone [...] Team Providers + +------+ + | Care Mirror Finishing Machine Operator Name | Role | Phone | + +------+ + | Ronel Jacobson PA-C | PCP | | + +------+ + Reason for Visit + +--------+ + | Reason | Onset | Comments | | | Date | | + +--------+ + | Lab Results | 05/08/ | | | | 2017 | | + +--------+ + Encounter Details +--------+ + + + + | Date | Type | Department | Care Team | Description | +--------+ + + + + | 05/08/ | Telephone | [facility] | Mariana Cortez W, | Lab Results | | 2018 | | NEPHROLOGY [address] | MD [address] | | | | | [address] | [address] [facility] | | | | | [place] | [place] [address] | | | | | [address] | [phone] | | | | | [phone] | | | +--------+ + + + [...] Telephone Encounter - Glo Scanlon RN - 05/08/2017 10:24 AM PDTPatient notified of tiff wilkinsscarlett, instructed to limit high potassium foods, she verbalized understanding and will see Zeny Cortez on Thursday. e leplopez Encounter - Glo Scanlon RN - 05/08/2017 10:10 AM PDTLM for patient to call our office regarding potassium. A M PDTdocumented in this encounter Plan of Treatment +--------+ + + + + | Date | Type | Specialty | Care Team | Description | +--------+ + + + + | 01/17/ | Appointment | Radiology | Bill Arevalo DNP | | | 2019 | | | [address] | | | | | | [place] | | | | | | [address] | | | | | | | | +--------+ + + + + | 01/17/ | Office | Vascular Surgery | Bill Arevalo DNP | | | 2019 | Visit | | [address] | | | | | | [address] [place] | | | | | | [address] | | | | | | | | +--------+ + + + + | 05/22/ | Office | Nephrology | Mariana Cortez, | | | 2020 | Visit | | MD [address] | | | | | | [address] [place] | | | | | | [place] [address] | | | | | | [phone] | | | | | | | | +--------+ + + + + documented as of this encounter Procedures + +--------+ + + + | Procedure Name | Priori | Date/Time | Associated Diagnosis | Comments | | | ty | | | | + +--------+ + + + | EXTERNAL LAB: | Routin | 05/07/2017 | | Results for this | | VITAMIN D, | e | | | procedure are in the | | 25-HYDROXY | | | | results section. | + +--------+ + + + documented in this encounter Results External Lab: Vitamin D, 25-Hydroxy (05/07/2017) + +-------+ + + + | Component | Value | Ref Range | Performed | Pathologist | | | | | At | Signature | + +-------+ + + + | Vitamin D, | 48 | | | | | 25-Hydroxy, | | | | | | External | | | | | + +-------+ + + + + + | Specimen | + + | Blood | + + documented in this encounter Visit Diagnoses Not on filedocumented in this encounter"
--- OUTSIDE RECORDS SUMMARY | ~2019-11-09 | XMS | Encounter Summary ---
Demographics + + + | Address | [address] | | | [place] [address] | + + + | Home Phone | | + + + | Preferred Language | Unknown | + + + | Marital Status | Single | + + + | Yazidism Affiliation | Unknown | + + + | Race | or | + + + | Ethnic Group | Not or | + + + Author + + + | Author | [facility] | | | and [place] | + + + | Organization | [facility] | | | and [...] Team Providers + +------+ + | Care Counter Control Operator Name | Role | Phone | + +------+ + PCP | Unavailable | + +------+ + Encounter Details +--------+ + + + + | Date | Type | Department | Care Team | Description | +--------+ + + + + | 12/27/ | Orders Only | [facility] | Mariana Cortez W, | Hyperkalemia | | 2013 | | NEPHROLOGY [address] | MD [address] | (Primary Dx) | | | | [address] | [address] [place] | | | | | [place], [place] | [place] [address] | | | | | [address] | [phone] | | | | | [phone] | | | +--------+ + + + [...] this encounter Progress Ada Rene RN - 12/27/2013 4:[address] Cortez, patient was instructed to decr ease Losartan to 50 mg daily and avoid foods high in potassium - patient verbally expressed a clear understanding and agreed. Patient will complete lab draw on Thursday01/02/14Bennett michele signed by Ada Serrano RN at 12/27/2013 4:45 PM PSTdocumented in this encounter Plan of [...] [place] | | | | | | [id number] | | | | | | | | +--------+ + + + + | 01/17/ | Office | Vascular Surgery | Bill Arevalo DNP | | | 2019 | Visit | | [address] | | | | | | [place] | | | | | | [id number] | | | | | | | | +--------+ + + + + | 05/22/ | Office | Nephrology | Mariana Cortez W, | | | 2020 | Visit | | [address] | | | | | | [address] [place] | | | | | | [place] [address] | | | | | | [phone] | | | | | | | | +--------+ + + + + documented as of this encounter Visit Diagnoses + + | Diagnosis | + + | Hyperkalemia - Primary Hyperpotassemia | + + documented in this encounter"
--- OUTSIDE RECORDS SUMMARY | ~2019-11-09 | XMS | Encounter Summary ---
Demographics + + + | Address | [address] | | | [place] [address] | + + + | Home Phone | | + + + | Preferred Language | Unknown | + + + | Marital Status | Single | + + + | Gnosticism Affiliation | Unknown | + + + [...] Team Providers + +------+ + | Care Clinical Specialist Medical Device Name | Role | Phone | + +------+ + | Alfredo Jacobson PA-C | PCP | | + +------+ + Reason for Visit Auth/Cert +--------+--------+ + + + + | Status | Reason | Specialty | Diagnoses / | Referred By | Referred To | | | | | Procedures | Contact | Contact | +--------+--------+ + + + + | | | | Diagnoses | | | | | | | Deviated | | | | | | | nasal septum | | | | | | | (J34.2), | | | | | | | Hypertrophy | | | | | | | of nasal | | | | | | | turbinates | | | | | | | (J34.3), | | | | | | | Acute | | | | | | | nonseasonal | | | | | | | allergic | | | | | | | rhinitis due | | | | | | | to pollen | | | | | | | (J30.1) | | | | | | | Procedures | | | | | | | IN REPAIR OF | | | | | | | NASAL | | | | | | | SEPTUM IN | | | | | | | EXCISION | | | | | | | TURBINATE,CHAMBERS | | | | | | | BMUCOUS | | | | | | | Septoplasty, | | | | | | | Inferior | | | | | | | Turbinoplast | | | | | | | y | | | +--------+--------+ + + + + Encounter Details +--------+ + + + + | Date | Type | Department | Care Team | Description | +--------+ + + + + | 02/24/ | Hospital | [facility] | Henok Dean MD | Deviated nasal | | 2018 | Encounter | [facility] | [address] [place] | septum; Hypertrophy | | | | [address] | [address] [place], [place] | of nasal turbinates | | | | [place], [place] | [address] | | | | | [address] | | | | | | [phone] | | | +--------+ + + + [...] + + + | Blood Pressure | 134/76 | 02/24/2017 12:30 PM | | | | | PST | | + + + + + | Pulse | 93 | 02/24/2017 12:30 PM | | | | | PST | | + + + + + | Temperature | 36.6 C (97.9 F) | 02/24/2017 10:51 AM | | | | | PST | | + + + + + | Respiratory Rate | 10 | 02/24/2017 11:20 AM | | | | | PST | | + + + + + | Oxygen Saturation | 99% | 02/24/2017 12:30 PM | | | | | PST | | + + + + + | Inhaled Oxygen | - | - | | | Concentration | | | | + + + + + | Weight | 87.6 kg (193 lb 2 | 02/24/2017 8:59 AM | | | | oz) | PST | | + + + + + | Height | 160 cm (5' 3") | 02/24/2017 8:59 AM | | | | | PST | | + + + + + | Body Mass Index | 34.21 | 02/24/2017 8:59 AM | | | | | PST | | + + + + + documented in this encounter Discharge Instructions Instructions Elisha Aguilar RN - 02/24/2017Formatting of this note might be different fr om the original. [place] nose as needed with yury-synephrine for bleeding Follow Postoperative Nasal Surgery Instructions provided Nasal Surgery: Septoplasty You re scheduled to have nasal surgery. The type of nasal surgery you re having is call ed septoplasty. Read on to learn more about what to expect during this surgery.During surger y, the surgeon may remove cartilage and boneto reshape the deviated septum. After surgery, there is more breathing space. Enough cartilage and bone remain to give the nose support. What to expect during septoplasty This surgery repairs a blockage inside the nose caused by a deviated septum. With a deviate d septum, there is a problem with the wall that divides the nose into two chambers. A deviat ed septum may block air coming through one or both nostrils. This makes it harder for you to breathe through your nose. During septoplasty, the surgeon makesincisionsinside the nos e. Then the surgeon trims, reshapes, moves, or removescartilage and sometimes bone from th e septum. Risks and possible complications As with any surgery, nasal surgery has some risks. These include a slight risk of bleeding and infection. Your doctor will discuss any other risks and complications with you. After septoplasty After septoplasty, you ll be taken to a recovery area or to your hospital room. Your expe rience may be as follows: You may have packing material inside your nose. This reduces bleeding and promotes heali ng. You may also have bandages (dressings) on the outside of your nose. It s normal to have some mucus and blood drain from your nose. Until packing is remove d, you may have to breathe through your mouth. You may have some swelling or bruising around the eyelids if a rhinoplasty was also done . Expect some throat dryness and irritation. Pain medicine will be prescribed as needed. Don t take medicine that contains aspirin or ibuprofen. These can cause increased bleeding. Follow-up care You ll need to follow up with your doctor within a week after your surgery. Here is what to expect: Any packing, splint, or dressings will probably be removed. You may feel slight discomfo rt and bleed a little when this is done. After the splint or packing is removed, you ll most likely breathe better than you did before surgery. You may have minor numbness, pain, swelling, and a little stiffness under the tip of the nose. In a few days, the inside of your nose may swell and briefly block your breathing. Or a scab or crust may block breathing for a short time. Leave the scab alone. Your doctor can re move it. Using saline (irrigation or aerosol) regularly after surgery helps to reduce the am ount of crusting at each visit. Contact your healthcare provider if you have any questions or concerns. Date Last Reviewed: 12/11/201519993068-4181 [employer]. [address] [place] [address], [place] [address]. All righ ts reserved. This information is not intended as a substitute for professional medical care. Always follow your healthcare professional's instructions. documented in this encounter Medications at Time of Discharge + + + +---------+ + + | Medication | Sig | Dispensed | Refills | Start | End Date | | | | | | Date | | + + + +---------+ + + | albuterol 90 | Inhale 2 puffs into | | 0 | 09/28/19 | | | mcg/puff inhaler | the lungs every 6 | | | 16 | | | | hours as needed. | | | | | + + + +---------+ + + | Alcohol Swabs 70 % | by Does not apply | | 0 | | | | PADS | route. | | | | | + + + +---------+ + + | B-D UF III MINI | | | 0 | 09/09/19 | | | PEN NEEDLES 31G X 5 | | | | 13 | | | MM MISC | | | | | | + + + +---------+ + + | CROW CONTOUR TEST | 4 strips Daily. | | 0 | 09/09/19 | | | strip | | | | 13 | | + + + +---------+ + + | Blood Glucose | by Does not apply | | 0 | | | | Monitoring Suppl | route. | | | | | | (CONTOUR BLOOD | | | | | | | GLUCOSE SYSTEM) JOANNA | | | | | | + + + +---------+ + + | cetirizine | Take 10 mg by mouth | | 0 | | | | (ZYRTEC) 10 mg | Daily as needed for | | | | | | tablet | Allergies. | | | | | + + + +---------+ + + | cyanocobalamin | Take 1,000 mcg by | | 0 | | | | (VITAMIN B-12) 500 | mouth Daily. | | | | | | mcg tablet | | | | | | + + + +---------+ + + | fluticasone | 1 spray by Nasal | | 0 | //20 | | | (FLONASE) 50 | route Twice daily | | | 16 | | | mcg/nasal spray | as needed. | | | | | + + + +---------+ + + | folic acid 1 mg | Take 1 mg by mouth | | 0 | | | | tablet | Daily. | | | | | + + + +---------+ + + | glyBURIDE | Take 10 mg by mouth | | 0 | 09/28/19 | | | (DIABETA) 5 mg | 2 times daily . | | | 16 | | | tablet | | | | | | + + + +---------+ + + | rosuvastatin | Take 20 mg by mouth | | 0 | | | | (CRESTOR) 20 mg | nightly. | | | | | | tablet | | | | | | + + + +---------+ + + | TechLite Lancets | | | 0 | 09/09/19 | | | MISC | | | | 13 | | + + + +---------+ + + | amLODIPine | Take 5 mg by mouth | | 0 | | | | (NORVASC) 5 mg | Daily. | | | | 8 | | tablet | | | | | | + + + +---------+ + + | bumetanide (BUMEX) | Take 1 mg by mouth 2 | | 0 | 09/28/19 | | | 0.5 mg tablet | times daily. | | | 16 | 8 | + + + +---------+ + + | cholecalciferol | Take 2,000 Units by | | 0 | 09/28/19 | | | (VITAMIN D-3) 5000 | mouth Daily. | | | 16 | 8 | | UNITS TABS | | | | | | + + + +---------+ + + | EPIPEN 2-IGNACIO 0.3 | Inject 0.3 mLs into | 2 each | 1 | 05/16/19 | | | MG/0.3ML injection | the muscle as needed | | | 17 | 8 | | | for Anaphylaxis. | | | | | | | Mylan authorized | | | | | | | generic to EpiPen | | | | | | | permitted. | | | | | + + + +---------+ + + | | Take 1-2 tablets by | 20 | 0 | 02/24/19 | | | HYDROcodone-acetamin | mouth every 4 hours | tablet | | 18 | 8 | | ophen (NORCO) 5-325 | as needed for Pain. | | | | | | mg per tablet | | | | | | + + + +---------+ + + | losartan (COZAAR) | Take 25 mg by mouth | | 0 | | | | 100 MG tablet | Daily. | | | | 8 | + + + +---------+ + + | sodium bicarbonate | Take 1 tablet by | 90 | 3 | 05/14/19 | | | 650 mg tablet | mouth Daily. | tablet | | 17 | 9 | + + + +---------+ + + documented as of this encounter H&P Notes Henok Dean MD - 02/24/2017 9:[address] [facility] SURGICAL INTERIM HISTORY AND PHYSICAL UPDATE Pt. Name/Age/: Maryam Forte 46 y.o. 1970 Date of admission: 02/24/2017 The current H&P was reviewed. The patient was reexamined. Re-evaluation of the patient co nfirms the necessity for the scheduled procedure. No change has occurred in the patient s condition since the H&P was completed less than 30 days ago. Lungs clear. Heart NSR withou t murmer. No URI. Electronically signed by: Henok Dean MD, 02/24/2017 9:57 [facility] at 2017 9[facility]57 [facility] 02/19/2017 3:53 PM PST H&P Henok Dean MD Otolaryngology OTOLARYNGOLOGY HISTORY AND PHYSICAL EXAMINATION CHIEF COMPLAINT: Chief Complaint Patient presents with Follow-up allergy inj HISTORY OF PRESENT ILLNESS: Patient comes in for follow-up on her ears none seasonal allergic rhinitis. She's been sapphire ing allergy injections now for about a year and a half and noted this past fall that she's h ad very minimal symptoms in the feels she has a tremendous improvement. She comes in though with the concern that she continues to have problems breathing through the nasal passages a nd it would like to have this further evaluated. No other ENT complaints at the current gomez Bolanos chart reviewed and no change in medications, allergies, or review of systems. PAST MEDICAL HISTORY: Past Medical History: Diagnosis Date Chronic kidney disease COPD (chronic obstructive pulmonary disease) ([facility]) 09/08/2012 Diabetes mellitus ([facility]) 02/23/1998 Edema 09/08/2012 Hypertension 09/08/2012 Rash PAST SURGICAL HISTORY: History reviewed. No pertinent surgical history. SOCIAL HISTORY: The patient reports that she has been smoking Cigarettes. She has never used smokeless to bacco. She reports that she drinks about 0.6 oz of alcohol per week . FAMILY HISTORY: Family History Problem Relation Age of Onset Hypertension Father Stomach cancer Mother 60 Diabetes Other CURRENT MEDICATIONS: Current Outpatient Prescriptions Medication Sig Dispense Refill albuterol 90 mcg/puff inhaler Inhale 2 puffs into the lungs every 6 hours as needed. Alcohol Swabs 70 % PADS by Does not apply route. amLODIPine (NORVASC) 5 mg tablet Take 5 mg by mouth Daily. B-D UF III MINI PEN NEEDLES 31G X 5 MM MISC SEAT 4a CONTOUR TEST strip 4 strips Daily. Blood Glucose Monitoring Suppl (CONTOUR BLOOD GLUCOSE SYSTEM) JOANNA by Does not apply [place]. bumetanide (BUMEX) 0.5 mg tablet Take 2 mg by mouth Daily. cetirizine (ZYRTEC) 10 mg tablet Take 10 mg by mouth Daily as needed for Allergies. cholecalciferol (VITAMIN D-3) 5000 UNITS TABS Take 2,000 Units by mouth Daily. cyanocobalamin (VITAMIN B-12) 500 mcg tablet Take 1,000 mcg by mouth Daily. EPIPEN 2-IGNACIO 0.3 MG/0.3ML injection Inject 0.3 mLs into the muscle as needed for Anaphy laxis. Mylan authorized generic to EpiPen permitted. 2 each 1 fluticasone (FLONASE) 50 mcg/nasal spray 1 spray by Nasal route Twice daily as needed. folic acid 1 mg tablet Take 1 mg by mouth Daily. glyBURIDE (DIABETA) 5 mg tablet Take 10 mg by mouth daily (with breakfast). losartan (COZAAR) 100 MG tablet Take 25 mg by mouth Daily. rosuvastatin (CRESTOR) 20 mg tablet Take 20 mg by mouth nightly. sodium bicarbonate 650 mg tablet Take 1 tablet by mouth Daily. 90 tablet 3 TechLite Lancets [facility] No current facility-administered medications for this visit. ALLERGIES: Allergies Allergen Reactions Furosemide Was ineffective; other loop diuretic (bumex) is effective REVIEW OF SYSTEMS: GENERALLY: No fever, no night sweats, no anemia, no fatigue, no recent profound weight ch anges. EYES: No eye problems, no use of corrective lenses, no eye injury, no double vision, no bl indness. EARS, NOSE, AND THROAT: No changes in taste or smell, no hearing difficulty, no ringing in the ears, no ear drainage, no dizziness, no voice changes, no difficulty swallowing, no sig nificant snoring, no sleep apnea, no sinus problems, no major dental work. CARDIOVASCULAR: No heart attacks, no heart murmur, no heart fluttering, no chest pain, no ankle swelling. LUNG DISEASE: No shortness of breath, no cough, no tuberculosis, no bloody cough, no asth ma, no emphysema/COPD. PHYSICAL EXAMINATION: Pulse 101 | Resp 16 | Ht 1.6 m (5' 3") | Wt 90.3 kg (199 lb) | SpO2 99% | BMI 35.25 kg /m Patient is an alert 46-year-old patient in no acute distress. Ear canals are open and candelaria n and drums are clear. Nasal passage she has a nasal septal deformity towards the left-hand side with very little room for breathing on this side. She has very hypertrophic inferior turbinates on both sides and essentially is minimal room to breathe through her nose from th e mechanical obstruction. Oral cavity no mass or lesions were noted to be present. No mass seen in the oropharynx and posterior pharyngeal wall is smooth. Tongue and soft palate are smooth the moves symmetrically. Neck there is no mass or lymphadenopathy present. Thyroid area was smooth and trachea is midline. Good range of motion the neck without any pain or discomfort noted. ASSESSMENT: DIAGNOSES: 1. Deviated nasal septum 2. Hypertrophy of nasal turbinates 3. Non-seasonal allergic rhinitis due to pollen PLAN: Patient will be scheduled for a septoplasty and inferior turbinoplasties. The risks of bryant fran including bleeding and anesthesia and infection of all been discussed well with the pat ient. She desires to get her nose open so she can breathe and this will be scheduled accord ingly. She'll continue on her allergy injections on the weekly basis seeing she is noticing such a tremendous improvement. On the allergy part should be re-seen again in 6 months. ELECTRONICALLY SIGNED BY: Henok Dean MD documented in this enco unter Miscellaneous Notes Op Note - Henok Dean MD - 02/24/2017 10:[address] [address] OPERATIVE REPORT HENOK DEAN MD Patient: MARYAM FORTE Admitting: HENOK DEAN MR #: [id number] LOC: PT TYPE: Adm Date: 02/24/2017 : 1970 DATE OF SURGERY: 02/24/2017 PREOPERATIVE DIAGNOSIS: 1. Nasal septal deformity with nasal obstruction. 2. Bilateral hypertrophic inferior turbinates. POSTOPERATIVE DIAGNOSIS: 1. Nasal septal deformity with nasal obstruction. 2. Bilateral hypertrophic inferior turbinates. OPERATION PERFORMED: 1. Septoplasty. 2. Bilateral inferior turbinoplasties. SURGEON: Henok Dean MD FINDINGS: The patient had an S-shaped septum with a large spur into the floor on the left hand side and a bend and spur in the perpendicular plate towards the right hand side. She had very large inferior turbinates bilaterally. PROCEDURE: After patient was placed under general anesthetic, the septum and inferior turbinates were injected with 1-percent Xylocaine with epinephrine. The nose was sprayed with some Yury-Synephrine and then cocaine packs were placed. The nose was then prepped and draped in a sterile fashion. A right hemitransfixional incision was made and the mucous membrane was elevated off of the right hand side. An incision made through the septal cartilage about 1 cm from the caudal end and then the mucous membrane was elevated off of the left-hand side. The bent cartilage along with the perpendicular plate were then removed with the Raghu forceps. The anterior spur along the floor on the left side was loosened with a 4 mm chisel and it also was removed. Once this all was removed, the septal mucous membranes were back in the midline. The incision was closed with 4-0 chromic suture, 4-0 fast-absorbing suture was put through the mucous membrane to bring them back together. Incisions were made in the anterior tips of the inferior turbinates bilaterally. The [place] elevator was used to dissect medially. Following this, the Gyrus debrider was used to debride medially and inferiorly bilaterally decreasing the size of the turbinate considerably. Once completed, the inside of the turbinate was cauterized with the bipolar cautery of the debrider tip. The patient then had good space on both sides for breathing. The nasopharynx was suctioned and cleaned well and then Nasopore packs were placed on both sides. Oral cavity was suctioned well. The patient was awakened from her anesthetic and returned to the recovery room in stable condition. PROGNOSIS: Immediate and remote is good. ESTIMATED BLOOD LOSS: 5 mL HENOK DEAN MD Dictated by HENOK DEAN MD 02/24/2017 10:58:14 Transcribed on 02/24/2017 19:26:01 by hesham job# [id number] Confirmation #: [id number] cc: ALFREDO JACOBSON PA-C P STOp Note - Henok Dean MD - 02/24/2017 10:53 AM PSTSee dictation #[id number] s igned by Henok Dean MD at 02/24/2017 10:58 AM PSTBrief Op Note - Henok Dean MD - 02/09 10:53 AM PST Brief Operative Note Maryam Forte 46 y.o. female 1970 [id number] Proc. Date 02/24/2017 Preop Dx Deviated nasal septum (J34.2), Hypertrophy of nasal turbinates (J34.3), Acute non seasonal allergic rhinitis due to pollen (J30.1) Postop Dx same Procedure Septoplasty, Inferior Turbinoplasty - Septoplasty, Inferior Turbinoplasty Anesthesia General Surgeon Henok Dean MD - Primary Lawn Service Supervisor EBL less than 50 mL Findings Findings consistent with scheduled procedure. No other abnormalities found. Complications none Specimens * No specimens in log * Drains Electronically signed by: Henok Dean MD 02/24/2017 10:53 [facility] Henok Dean MD at 2017 10:53 AM PSTdocumented in this encounter Plan of Treatment +--------+ + + + + | Date | Type | Specialty | Care Team | Description | +--------+ + + + + | 01/17/ | Appointment | Radiology | Bill Arevalo DNP | | | 2019 | | | [address] | | | | | | [place] | | | | | | [phone] | | | | | | | | +--------+ + + + + | 01/17/ | Office | Vascular Surgery | Bill Arevalo DNP | | | 2019 | Visit | | [address] | | | | | | [place] | | | | | | [phone] | | | | | | | | +--------+ + + + + | 05/22/ | Office | Nephrology | Mariana Cortez W, | | | 2020 | Visit | | MD [address] | | | | | | [address] [facility] | | | | | | [place] [address] | | | | | | [phone] | | | | | | | | +--------+ + + + + documented as of this encounter Procedures + +--------+ + + + | Procedure Name | Priori | Date/Time | Associated Diagnosis | Comments | | | ty | | | | + +--------+ + + + | SEPTOPLASTY W/ OR | | 02/24/2017 | Deviated nasal | | | W/O TURBINATES | | 10:11 AM | septum (J34.2), | | | | | PST | Hypertrophy of nasal | | | | | | turbinates (J34.3), | | | | | | Acute nonseasonal | | | | | | allergic rhinitis | | | | | | due to pollen | | | | | | (J30.1) | | + +--------+ + + + +---+--------+ | | Case | | | Notes | | | Case | | | #3 | +---+--------+ + +--------+ +---+ + | POCT TEST, | Routin | 02/24/2017 | | Results for this | | URINE, QUAL | e | 10:02 AM | | procedure are in the | | | | PST | | results section. | + +--------+ +---+ + | POC GLUCOSE | Routin | 02/24/2017 | | Results for this | | | e | 9:26 AM | | procedure are in the | | | | PST | | results section. | + +--------+ +---+ + | ECG - EXTERNAL SCAN | | 02/23/2017 | | Results for this | | | | 12:00 AM | | procedure are in the | | | | PST | | results section. | + +--------+ +---+ + documented in this encounter Results POCT Test, Urine, QUAL (02/24/2017 10:02 AM PST) + + + + + + | Component | Value | Ref Range | Performed | Pathologist | | | | | At | Signature | + + + + + + | | Negative | Negative | | | | Test, | | | | | | Urine, POC | | | | | + + + + + + | Internal QC | Acceptable | Acceptable | | | + + + + + + | Specific | | 1.010, 1.015, | | | | [place], | | 1.020, 1.025 | | | | POC | | | | | + + + + + + | Lot Number | [id number] | | | | + + + + + + | Expiration | 2018-05-27 | | | | | Date | | | | | + + + + + + + + | Specimen | + + | Urine | + + POC Glucose (02/24/2017 9:26 AM PST) + +---------+ + + + | Component | Value | Ref Range | Performed | Pathologist | | | | | At | Signature | + +---------+ + + + | Glucose, | 158 (H) | 70 - 109 mg/dL | [facility] | | [facility] | | [facility] | [facility] - | | | | | | [facility]ORY | | + +---------+ + + + + + | Specimen | + + | Blood | + + + + + + + | Performing | Address | City/State/Zipcode | Phone Number | | Organization | | | | + + + + + | [facility] | [address] | [place] | [phone] | | [facility] | | [address] | | | - LABORATORY | | | | + + + + + ECG - EXTERNAL SCAN (02/23/2017 12:00 AM PST) + + + | Narrative | Performed At | + + + | Ordered by an | | | unspecified provider. | | + + + documented in this encounter Visit Diagnoses + + | Diagnosis | + + | Deviated nasal septum - Primary | + + | Hypertrophy of nasal turbinates | + + | Obesity (BMI 35.0-39.9 without comorbidity) Obesity, unspecified | + + documented in this encounter Administered Medications + +--------+---------+------+------+------+ | Medication Order | MAR | Action | Dose | Rate | Site | | | Action | Date | | | | + +--------+---------+------+------+------+ + +---+ | albuterol 2.5 mg/3 mL nebulizer | | | solution 2.5 mg 2.5 mg, | | | Nebulization, ONCE PRN, Wheezing, | | | Starting 02/24/17 at 0925, | | | For 1 dose, RT will administer., | | | Pre-op | | + +---+ | | | + +---+ | albuterol 2.5 mg/3 mL nebulizer | | | solution 2.5 mg 2.5 mg, | | | Nebulization, ONCE PRN, Wheezing, | | | Starting 02/24/17 at 1046, | | | For 1 dose, Notify anesthesia if | | | patient is wheezing and does not | | | have a history of asthma or COPD | | | or current smoking., | | | Recovery/Phase I | | + +---+ | | | + +---+ | dextrose 50% injection 12.5-25 | | | g 12.5-25 g, Intravenous, EVERY | | | 15 MIN PRN, Low Blood Sugar, Give | | | 12.5g (25 mL) IV if blood | | | glucose 50-69 mg/dL. Give 25g | | | (50 mL) IV if blood glucose < 50, | | | Starting 02/24/17 at 0925, | | | Repeat in 15 min if blood glucose | | | remains < 70 mg/dL. Repeat | | | blood glucose in 30 min once | | | blood glucose > 70., Pre-op | | + +---+ | | | + +---+ | dextrose 50% injection 12.5-25 | | | g 12.5-25 g, Intravenous, EVERY | | | 15 MIN PRN, Low Blood Sugar, For | | | hypoglycemia. Give 12.5g (25ml) | | | IV if blood glucose 50-69 | | | mg/dL. Give 25g (50ml) IV if | | | blood glucose < 50, Starting Tue | | | 02/24/17 at 1046, Give over 2 min. | | | Repeat in 15 min if blood | | | glucose remains < 70 mg/dL. | | | Repeat blood glucose in 30 min | | | once blood glucose > 70., | | | Recovery/Phase I | | + +---+ | | | + +---+ | fentaNYL (PF) injection 25-50 | | | mcg 25-50 mcg, Intravenous, | | | EVERY 15 MIN PRN, Pain, Give on | | | direction of physician, Starting | | | Thu02/24/17 at 0925, For 4 doses, | | | Max total dose 100 mcg., Pre-op | | + +---+ | | | + +---+ | fentaNYL (PF) injection 25-50 | | | mcg 25-50 mcg, Intravenous, | | | EVERY 5 MIN PRN, Pain, Starting | | | Thu02/24/17 at 1046, Maximum | | | total dose 250 mcg. PACU IV | | | Narcotic Priority: Only use | | | fentanyl for immediate post-op | | | pain (one dose) or breakthrough | | | pain when any other IV narcotics | | | ordered have been ineffective (if | | | ordered). If both morphine and | | | hydromorphone are ordered, use | | | morphine first, and use | | | hydromorphone if morphine | | | ineffective., Recovery/Phase I | | + +---+ | | | + +---+ | HYDROmorphone (DILAUDID) | | | injection 0.2-0.5 mg 0.2-0.5 mg, | | | Intravenous, EVERY 5 MIN PRN, | | | Pain, Starting Thu02/24/17 at | | | 1046, Maximum total dose 4 mg. | | | PACU IV Narcotic Priority: Only | | | use fentanyl for immediate | | | post-op pain (one dose) or | | | breakthrough pain when any other | | | IV narcotics ordered have been | | | ineffective (if ordered). If | | | both morphine and hydromorphone | | | are ordered, use morphine first, | | | and use hydromorphone if morphine | | | ineffective., Recovery/Phase I | | + +---+ | | | + +---+ + +---------+ +---+-------+---+ | lactated ringers (LR) infusion | New Bag | 02/24/19 | | 100 | | | at 10-100 mL/hr, Intravenous, | | 18 9:27 | | mL/hr | | | CONTINUOUS, Starting Thu02/24/17 | | AM PST | | | | | at 0945, TKO., Pre-op | | | | | | + +---------+ +---+-------+---+ + +---+ | | | + +---+ | meperidine (DEMEROL) injection | | | 12.5-25 mg 12.5-25 mg, | | | Intravenous, PRN, Shivering, | | | Starting 02/24/17 at 1046, For | | | 2 doses, May Repeat once in 5 | | | min., Recovery/Phase I | | + +---+ | | | + +---+ + +-------+ +------+---+---+ | midazolam (VERSED) 1 mg/mL | Given | 02/24/19 | 2 mg | | | | injection 1 mg 1 mg, | | 18 10:28 | | | | | Intravenous, PRN, Anxiety, May | | AM PST | | | | | repeat Q 5 minutes prn, Starting | | | | | | | 02/24/17 at 0925, For 2 doses, | | | | | | | May repeat once in 5min. Hold | | | | | | | anxiolytic until after anesthesia | | | | | | | and surgical consent is | | | | | | | obtained, Pre-op | | | | | | + +-------+ +------+---+---+ + +---+ | | | + +---+ | ondansetron (ZOFRAN) injection | | | 4 mg 4 mg, Intravenous, ONCE | | | PRN, Nausea, Starting 02/24/17 | | | at 0925, For 1 dose, Pre-op | | + +---+ | | | + +---+ | ondansetron (ZOFRAN) injection | | | 4 mg 4 mg, Intravenous, ONCE | | | PRN, Nausea, Starting 02/24/17 | | | at 1046, For 1 dose, | | | Recovery/Phase I | | + +---+ | | | + +---+ + +-------+ +------+---+---+ | oxyCODONE (ROXICODONE) tablet | Given | 02/24/19 | 5 mg | | | | 2.5-10 mg 2.5-10 mg, Oral, EVERY | | 18 12:17 | | | | | 3 HOURS PRN, Pain, Starting Tue | | PM PST | | | | | 02/24/17 at 1127, First dose must | | | | | | | be the lowest dose, can titrate | | | | | | | to effective dose by repeat of | | | | | | | lowest dose every 60 minutes prn | | | | | | | pain, may not exceed maximum dose | | | | | | | ordered per interval. Use Pasero | | | | | | | Sedation Scale., Post-op/Phase | | | | | | | II | | | | | | + +-------+ +------+---+---+ +---+---+ | | | +---+---+ documented in this encounter
--- OUTSIDE RECORDS SUMMARY | ~2019-11-09 | XMS | Encounter Summary ---
Demographics + + + | Address | [address] | | | [place] [address] | + + + | Home Phone | | + + + | Preferred Language | Unknown | + + + | Marital Status | Single | + + + | Restorationist Affiliation | Unknown | + + + | Race | or | + + + | Ethnic Group | Not or | + + + Author + + + | Author | [facility] | | | and [place] | + + + | Organization | [facility] | | [...] Team Providers + +------+ + | Care User Experience Analyst Name | Role | Phone | [...] | | | | | | | NM REPAIR OF | | | | | | | NASAL | | | | | | | SEPTUM NM | | | | | | | [...] + + + + | 02/24/ | Anesthesia | [facility] | Vahid Naidu | | | 2018 | Event | [facility] | MD Mandie [address] | | | | | [address] | [place] | | | | | [place] | [address] | | | | | [address] | | | | | | | Oscar Cisneros | | | | | | MD Lina [address] | | | | | | [place], [place] | | | | | | [address] | | | | | | | | | | | | | | +--------+ + + + + Anesthesia Record + + + + + | Procedure Name | Responsible | Anesthesia Start | Anesthesia Stop Time | | | Anesthesiologist | Time | | + + + + + | Septoplasty, | Vahid Naidu, | 02/24/17 1009 | 02/24/17 1054 | | Inferior | MD | | | | Turbinoplasty | | | | | (Bilateral Nose) | | | | + + + + + +----+---+ + + | Da | T | Event | Comment | | te | i | | | | | m | | | | | e | | | +----+---+ + + | 01 | 0 | An Checkout | Pre-use anesthesia machine/equipment checkout. | | /1 | 9 | | | | 6/ | 1 | | | | 20 | 1 | | | | 18 | | | | +----+---+ + + | | 0 | | | | | 9 | | | | | 5 | | | | | 5 | | | +----+---+ + + | | 1 | an madison now | | | | 0 | | | | | 0 | | | | | 5 | | | +----+---+ + + | | 1 | An Start | Versed 2 mg IV in SDS 7 then to OR 3 with sedated patient | | | 0 | | Reassessment prior to anesthesia induction/procedure. | | | 0 | | | | | 9 | | | +----+---+ + + | | 1 | AN | Per surgeon request | | | 0 | Antibiotic | | | | 1 | declined | | | | 0 | | | +----+---+ + + | | 1 | Preoxygenat | | | | 0 | ed | | | | 1 | | | | | 2 | | | +----+---+ + + | | 1 | An | | | | 0 | Induction | | | | 1 | | | | | 5 | | | +----+---+ + + | | 1 | An | | | | 0 | Intubation | | | | 1 | | | | | 6 | | | +----+---+ + + | | 1 | AN Bite | | | | 0 | Block | | | | 1 | | | | | 7 | | | +----+---+ + + | | 1 | Pre-Procedu | | | | 0 | ral Timeout | | | | 1 | Completed | | | | 7 | | | +----+---+ + + | | 1 | First | | | | 0 | Inc/Proc St | | | | 2 | | | | | 5 | | | +----+---+ + + | | 1 | Extubated | | | | 0 | Awake | | | | 4 | | | | | 7 | | | +----+---+ + + | | 1 | An Stop | Patient handed off to recovery nurse. | | | 5 | | | | | 4 | | | +----+---+ + + +------+ | Meds | +------+ + +--------+ | Name | Total | + +--------+ | midazolam | 2 mg | + +--------+ | propofol | 150 mg | + +--------+ | lidocaine 2% (PF) | 60 mg | + +--------+ | dexamethasone | 8 mg | + +--------+ | ondansetron | 4 mg | + +--------+ | Phenylephrine 100mcg/mL SYRINGE | 100 mg | + +--------+ | HYDROmorphone | 2 mg | + +--------+ | lactated ringers (LR) infusion | 900 mL | + +--------+ + + | Name | + + | N2O Flow Rate (L/Min) | + + | O2 Flow Rate (L/Min) | + + | Insp O2 | + + | Exp SEV | + + | Exp JUANA | + + | Air Flow Rate (L/Min) | + + + + | No blood administrations on file. | + + +--------+ + + + | Type | Details | Placement | Removal | +--------+ + + + | Periph | 02/24/17; 0946; Right; Hand; | 02/24/17 0946 by | 02/24/17 1240 by | | eral | [id number] catheter system; | Shirley Weathers, | Elisha Aguilar RN | | IV | 20 gauge, 1 1/4 in length; | RN | | | | distraction, intradermal | | | | | injection; no longer indicated; | | | | | 02/24/17; 1240 | | | +--------+ + + + | Airway | Placement Date: 02/24/17; | 02/24/17 1016 by | 02/24/17 1047 by | | | Placement Time: 1016; Mask | Vahid Naidu, | Vahid Naidu, | | | Ventilation: EZ; Airway Type: | MD | MD | | | laryngeal mask, non-disposable; | | | | | Size: 4; Tube Reference Point: | | | | | secure and patent; Trauma: none; | | | | | Placement Check: breath sounds | | | | | equal bilaterally, bilateral | | | | | chest rise, exhaled CO2 detection | | | | | device; Removal Date: 02/24/17; | | | | | Removal Time: 1047 | | | +--------+ + + + | Read | 02/24/17; 1029; Bilateral; nose; | 02/24/17 1029 by | 05/04/18 1342 by | | only - | 05/04/18 (Completed/Removed by | Yanelis Larkin RN | User Epic | | | Utility); 1342 (Completed/Removed | | | | Incisi | by Utility) | | | | on | | | | +--------+ + + + documented in this encounter Social History + + + +--------+ + [...] + + documented as of this encounter OR Notes Anesthesia Postprocedure Evaluation - Vahid Naidu MD - 02/24/2017 11:11 AM PSTForma tting of this note might be different from the original. ANESTHESIA POSTANESTHESIA EVALUATION July Forte 46 y.o. female 1970 [id number] Procedure(s) Septoplasty, Inferior Turbinoplasty (Bilateral Nose) Cooperates? Yes Mental Status Performs simple tasks. Respiratory Satisfactory - Airway patent (self maintained). Cardiovascular Satisfactory - Blood pressure and heart rate acceptable Temperature Satisfactory Pain Satisfactory N/V Control Satisfactory Hydration Satisfactory - No signs of dehydration Complications None apparent Vitals: 02/24/17 1058 02/24/17 1100 02/24/17 1105 BP: 118/74 122/73 128/74 Pulse: 94 94 95 Temp: Resp: 12 12 12 SpO2: 98% 98% 97% Electronically signed by Vahid Naidu MD 02/24/2017 11:11 [facility] Vahid Naidu MD at 0 02/24/2017 11:11 AM PSTAnesthesia Preprocedure Evaluation - Vahid Naidu MD - 02/23/19 18 4:53 PM PST ANESTHESIA PREANESTHESIA EVALUATION July Forte 46 y.o. female 1970 [id number] Procedure(s): Septoplasty, Inferior Turbinoplasty (Bilateral Nose) Medical history, anesthesia, medications, allergy, NPO status verified histories reviewed. Labs reviewed. Review of Systems / Med History Anesthesia History No anesthesia complications. (-) PONV, malignant hyperthermia Cardiovascular (+) hypertension(-) pulmonary hypertension (-) valvular disease , Exercise tolerance >4 ME TS Pulmonary 5 pack yerar. (+) COPD, smoking history, Stop Bang Score: 5 Neurology (+) headaches Psychology Negative except where noted below. Renal Negative except where noted below. (+) chronic renal insufficiency Endocrine (+) Diabetes: type 2, NIDDM (+) obesity: BMI (30-39) Obstetrics (+) proteinuria Other Negative except where noted below. Cancer Negative except where noted below. Physical Exam Airway MP II, TM >3 FB, Mouth opening >2 FB. Neck: full ROM, extends >30 degrees. Jaw protrus ion normal. Dental Grossly normal except where noted below.; (+) dentures-upper and Age appropriate dentition. CV Rhythm regular. Rate Normal. (-) murmur, carotid bruit, peripheral edema, JVD and weak pulses. Pulm Clear to auscultation bilaterally. (-) wheezing, rhonchi, decreased breath sounds, rales and stridor. Neuro Grossly normal. Anesthesia Plan ASA 3 (Smoker, COPD, CRI, HTN NIDDM) Type: General. Induction: Intravenous. Potential problems: None anticipated. Monitors: Standard ASA monitors. Consent statement:Anesthetic plan, alternatives, risks and benefits discussed with patient and family. Risks discussed included (but were not limited to): dental injury, pain, sore throat, infec tion, voice injury, muscle aches, nausea, respiratory events, . Consenting person understands and agrees to proceed. PARQ. Risks and benefits of general anesthetic discussed with patient and available family member s. They agree to proceed, answered all questions. Past Medical History: No date: Chronic kidney disease 09/08/2012: COPD (chronic obstructive pulmonary disease) (* 10/13/2012: Diabetes mellitus type II - ORAL Control 09/08/2012: Edema 10/13/2012: Hypertension No date: Rash No date: Wears dentures Comment: upper. documented in this encounter Plan of Treatment +--------+ + + + + | Date | Type | Specialty | Care Team | Description | +--------+ + + + + | 01/17/ | Appointment | Radiology | Bill Arevalo, GEMMA | | | 2019 | | | [address] | | | | | | [place], [place] | | | | | | [id number] | | | | | | | | +--------+ + + + + | 01/17/ | Office | Vascular Surgery | Bill Arevalo DNP | | | 2019 | Visit | | [address] | | | | | | [place] | | | | | | [id number] | | | | | | | | +--------+ + + + + | 05/22/ | Office | Nephrology | Mariana Cortez, | | | 2020 | Visit | | [address] | | | | | | [address] [place] | | | | | | [place] [address] | | | | | | [phone] | | | | | | | | +--------+ + + + + documented as of this encounter Visit Diagnoses Not on filedocumented in this encounter Administered Medications + +--------+ +------+------+------+ | Medication Order | MAR | Action | Dose | Rate | Site | | | Action | Date | | | | + +--------+ +------+------+------+ | dexamethasone (PF) 10 mg/mL | Given | 02/24/19 | 8 mg | | | | injection Intravenous, PRN, | | 18 10:15 | | | | | Starting 02/24/17 at 1015, | | AM PST | | | | | Anesthesia Intra-op | | | | | | + +--------+ +------+------+------+ +---+---+ | | | +---+---+ + +-------+ +------+---+---+ | HYDROmorphone (DILAUDID) 2 | Given | 02/24/19 | 1 mg | | | | mg/mL injection Intravenous, | | 18 10:27 | | | | | PRN, Pain, Starting 02/24/17 | | AM PST | | | | | at 1027, Anesthesia Intra-op | | | | | | + +-------+ +------+---+---+ +-------+ +------+---+---+ | Given | 02/24/19 | 1 mg | | | | | 18 10:15 | | | | | | AM PST | | | | +-------+ +------+---+---+ +---+---+ | | | +---+---+ + +-------+ +-------+---+---+ | lidocaine (PF) 2% injection | Given | 02/24/19 | 60 mg | | | | PRN, Starting Thu02/24/17 at | | 18 10:15 | | | | | 1015, Anesthesia Intra-op | | AM PST | | | | + +-------+ +-------+---+---+ +---+---+ | | | +---+---+ + +-------+ +------+---+---+ | midazolam (VERSED) 1 mg/mL | Given | 02/24/19 | 2 mg | | | | injection Intravenous, PRN, | | 18 10:09 | | | | | Anxiety, Starting 02/24/17 at | | AM PST | | | | | 1009, Anesthesia Intra-op | | | | | | + +-------+ +------+---+---+ +---+---+ | | | +---+---+ + +-------+ +------+---+---+ | ondansetron (ZOFRAN) injection | Given | 02/24/19 | 4 mg | | | | PRN, Nausea, Vomiting, Starting | | 18 10:15 | | | | | 02/24/17 at 1015, Anesthesia | | AM PST | | | | | Intra-op | | | | | | + +-------+ +------+---+---+ +---+---+ | | | +---+---+ + +-------+ +--------+---+---+ | phenylephrine (JACEK-SYNEPHRINE) | Given | 02/24/19 | 100 mg | | | | 100 mcg/mL injection | | 18 10:30 | | | | | Intravenous, PRN, Starting Tue | | AM PST | | | | | 02/24/17 at 1030, Anesthesia | | | | | | | Intra-op | | | | | | + +-------+ +--------+---+---+ +---+---+ | | | +---+---+ + +-------+ +--------+---+---+ | propofol (DIPRIVAN) injection | Given | 02/24/19 | 150 mg | | | | Intravenous, PRN, Starting Tue | | 18 10:15 | | | | | 02/24/17 at 1015, Anesthesia | | AM PST | | | | | Intra-op | | | | | | + +-------+ +--------+---+---+ +---+---+ | | | +---+---+ documented in this encounter"
--- OUTSIDE RECORDS SUMMARY | ~2019-11-09 | XMS | Encounter Summary ---
Demographics + + + | Address | [address] | | | [place] [address] | + + + | Home Phone [...] Team Providers + +------+ + | Care Air Pollution Specialist Name | Role | Phone | [...] y | | Henok Calix MD | Otolaryngolog | | | Required | | Non-seasonal | [address] | y [address] | | | | | allergic | [address] | [address] | | | | | rhinitis due | [place], | [address] [place] | | | | | to pollen, | [place] [address] | [place], [place] | | | | | unspecified | Phone: | [phone] | | | | | chronicity | [phone] | Phone: | | | | | Allergic | Fax: | [phone] | | | | | rhinitis due | [phone] | Fax: | | | | | to animal | | [phone] | | | | | hair and | | | | | | | dander, | | | | | | | unspecified | | | | | | | chronicity | | | | | | | Allergic | | | | | | | rhinitis due | | | | | | | to dust | | | | | | | mite Mild | | | | | | | intermittent | | | | | | | asthma | | | | | | | without | | | | | | | complication | | | | | | | Procedures | | | | | | | [place] | | | | | | | IMMUNOTHERAP | | | | | | | Y, ONE | | | | | | | INJECTION | | | | | | | [place] PROFES | | | | | | | SVC,IMMUNOTH | | | | | | | ER,SINGLE/MU | | | | | | | LT AGS | | | +--------+ + + + + + Encounter Details +--------+ + + + + | Date | Type | Department | Care Team | Description | +--------+ + + + + | 02/04/ | Orders Only | [facility] [place] | Henok Luther MD | Mild intermittent | | 2017 | | OTOLARYNGOLOGY [address] | [address] | asthma without | | | | [address] | [address] [place] | complication | | | | [place], [place] | [address] | (Primary Dx); | | | | [address] | | Non-seasonal | | | | [phone] | | allergic rhinitis | | | [...] [place] | | | | | | [address] | | | | | | | | +--------+ + + + + | 01/17/ | Office | Vascular Surgery | Bill Arevalo DNP | | | 2019 | Visit | | [address] | | | | | | [place] | | | | | | [address] | | | | | | | | +--------+ + + + + | 05/22/ | Office | Nephrology | Mariana Cortez, | | | 2020 | Visit | | [address] | | | | | | [address] [place] | | | | | | [place] [address] | | | | | | [phone] | | | | | | | | +--------+ + + + + + + +--------+ + + | Name | Type | Priori | Associated Diagnoses | Order Schedule | | | | ty | | | + + +--------+ + + | * [facility] [place] | Outpatient | Routin | Non-Seasonal | Ordered: 02/04/2017 | | Otolaryngology - AMB | Referral | e | Allergic Rhinitis | | | Referral | | | Due To Pollen, | | | | | | Unspecified | | | | | | Chronicity Allergic | | | | | | Rhinitis Due To | | | | | | Animal Hair And | | | | | | Dander, Unspecified | | | | | | Chronicity Allergic | | | | | | rhinitis due to | | | | | | dust mite Mild | | | | | | intermittent asthma | | | | | | without complication | | + + +--------+ + + documented as of this encounter Visit Diagnoses + + | Diagnosis | + + | Mild intermittent asthma without complication - Primary Unspecified asthma | + + | Non-seasonal allergic rhinitis due to pollen, unspecified chronicity | + + | Allergic rhinitis due to animal hair and dander, unspecified chronicity | + + | Allergic rhinitis due to dust mite | + + documented in this encounter"
--- OUTSIDE RECORDS SUMMARY | ~2019-11-09 | XMS | Encounter Summary ---
Demographics + + + | Address | [address] | | | [place] [address] | + + + | Home Phone [...] + + + | Author | [facility] | | | and [place] | + + + | Organization | [facility] | | | [...] Team Providers + +------+ + | Care Pet Sitter Name | Role | Phone | + [...] | | | to pollen, | [place] [address] | [place], [place] | | | | | unspecified | Phone: | [phone] | | | | | chronicity | [phone] | Phone: | | | | | Allergic | Fax: | [phone] | | | | | rhinitis due | [phone] | Fax: | | | | | to animal | | [phone] | | | | | hair and [...] | +--------+ + + + + | 02/19/ | Clinical | [facility] [place] | Henok Luther MD | Extrinsic asthma, | | 2018 | Support | OTOLARYNGOLOGY [address] | [address] | unspecified asthma | | | | [address] | [address] [place] | severity, | | | | [place] | [address] | unspecified whether | | | | [address] | | complicated, | | | | [phone] | | unspecified whether | | | [...] encounter Progress Notes Domenica Meredith RN - 02/19/2017 3:45 PM PSTPatient presents with epi-pen. Denies delayed reaction from previous allergy injection. No fever or allergy related rash. No recent heavy exposure to allergens. No plans for strenuous exercise before or after injection today.Elect ronically signed by Domenica Meredith RN at 02/19/2017 4:28 PM PSTdocumented in this encounte r Plan [...] [place] | | | | | | [id number] | | | | | | | | +--------+ + + + + | 01/17/ | Office | Vascular Surgery | Bill Arevalo, DNP | | | 2019 | Visit | | [address] | | | | | | [place] | | | | | | [address] | | | | | | | | +--------+ + + + + | 05/22/ | Office | Nephrology | Mariana Cortez, | | | 2020 | Visit | | MD [address] | | | | | | [address] [place] | | | | | | [place] [address] | | | | | | [phone] | | | | | | | [...]
--- OUTSIDE RECORDS SUMMARY | ~2019-11-09 | XMS | Encounter Summary ---
Demographics + + + | Address | [address] | | | [place] [address] | + + + | Home Phone [...] + + | Author | [facility] | | | and [place] | + + + | Organization | [facility] | | | [...] Team Providers + +------+ + | Care Pediatric Nurse Practitioner Name | Role | Phone | + [...] | | | | severity, | [place] [address] | [address] Phone: | | | | | uncomplicate | Phone: | [phone] | | | | | d | [phone] | Fax: | | | | | Non-seasonal | Fax: | [phone] | | | | | allergic | [phone] | | | | | | rhinitis due | | | | | | | to pollen | | | | | | | Procedures | | | | | | | [place] | | | | | | | IMMUNOTHERAP | | | | | | | Y, ONE | | | | | | | INJECTION | | | | | | | [place] | | | | | | | IMMUNOTHERAP | | | | | | | Y, 2+ | | | | | | | INJECTIONS | | | | | | | [place] PROFES | | | | | | [...] | +--------+ + + + + | 08/14/ | Clinical | [facility] [place] | Henok Luther MD | Non-seasonal | | 2017 | Support | OT[address]ARYNGOLOGY [address] | [address] | allergic rhinitis | | | | [address] | [address] [place] | due to pollen | | | | [place], [place] | [address] | (Primary Dx); | | | | [address] | | Allergic rhinitis | | | | [phone] | | due to animal (cat) | | | | | | (dog) hair and | | | | | | dander; Allergic | | | | | | rhinitis due to dust | | | | | | mite; Uncomplicated | | | | | | asthma, unspecified | | | | | | asthma severity | +--------+ + + + + Social [...] encounter Progress Notes Domenica Meredith RN - 08/14/2016 4:15 PM PDTPatient presents with epi-pen & inhaler. No ac tive wheezing or cough associated with asthma today. Denies delayed reaction from previous a llergy injection. No fever or allergy related rash. No recent heavy exposure to allergens. N o plans for strenuous exercise immediately before or after injection today.Electronically si gned by Domenica Meredith RN at 08/14/2016 4:53 PM PDTdocumented in this encounter Plan of [...] [place] | | | | | | [id number] | | | | | | | | +--------+ + + + + | 01/17/ | Office | Vascular Surgery | Bill Arevalo DNP | | 2019 | Visit | | [address] | | | | | | [place] | | | | | | [address] | | | | | | | | +--------+ + + + + | 05/22/ | Office | Nephrology | Mariana Cortez W, | | | 2020 | Visit | | [address] | | | | | | [address] [facility] | | | | | | [place] [address] | | | | | | [phone] | | | | | | | [...] to dust mite | + + | Uncomplicated asthma, unspecified asthma severity | + + documented in this encounter"
--- OUTSIDE RECORDS SUMMARY | ~2019-11-09 | XMS | Encounter Summary ---
Demographics + + + | Address | [address] | | | [place] [address] | + + + | Home Phone | | + + + | Preferred Language | Unknown | + + + | Marital Status | Single | + + + | Anabaptism Affiliation | Unknown | + + + | Race | or | + + + | Ethnic Group | Not or | + + + Author + + + | Author | [facility] | | | and [place] | + + + | Organization | [facility] | | | and [...] Team Providers + +------+ + | Care Relish Blender Name | Role | Phone | + +------+ + | Mehrdad Avalos MD | PCP | | + +------+ + Reason for Visit + +--------+ + | Reason | Onset | Comments | | | Date | | + +--------+ + | Care Coordination | 09/20/ | | | | 2020 | | + +--------+ + Encounter Details +--------+ + + + + | Date | Type | Department | Care Team | Description | +--------+ + + + + | 09/20/ | Telephone | [facility] | Elisha Dunbar | Care Coordination | | 2019 | | INFECTIOUS DISEASE | ZULAY Garibay | | | | | [address] | | | | | | [place] | | | | | | [address] | | | | | | [phone] | | | +--------+ + + + [...] Telephone Encounter - Elisha Dunbar RN - 09/21/2019 4:09 PM [facility] States she is requesting an order that Dr Palma gave patient to see a vein specialist and recent progress notes from last visit. [place] request this be faxed to her office. [place] pr ovided fax number [phone]. Phone number for question/concerns [phone]. Fax confirmation received. documented in this encounter Plan of Treatment +--------+ + + + + | Date | Type | Specialty | Care Team | Description | +--------+ + + + + | 01/17/ | Appointment | Radiology | Bill Arevalo DNP | | 2019 | | | [address] | | | | | | [place] | | | | | | [address] | | | | | | | | +--------+ + + + + | 01/17/ | Office | Vascular Surgery | Bill Arevalo DNP | | | 2019 | Visit | | [address] | | | | | | [place] | | | | | | [address] | | | | | | | | +--------+ + + + + | 05/22/ | Office | Nephrology | Mariana Cortez, | | | 2020 | Visit | | [address] | | | | | | [address] [place] | | | | | | [place] [address] | | | | | | [phone] | | | | | | | | +--------+ + + + + documented as of this encounter Visit Diagnoses Not on filedocumented in this encounter"
--- OUTSIDE RECORDS SUMMARY | ~2019-11-09 | XMS | Encounter Summary ---
Demographics + + + | Address | [address] | | | [place] [address] | + + + | Home Phone [...] Author + + + | Author | [facility] | | | and [place] | + + + | Organization | [facility] | | | [...] Providers + +------+ + | Care Air Traffic Supervisor Name | Role | Phone | + +------+ + PCP | Unavailable | + +------+ + Encounter Details +--------+ + + + + | Date | Type | Department | Care Team | Description | +--------+ + + + + | 10/13/ | Orders Only | [facility] [place] | Ada Serrano G, | Proteinuria (Primary | | 2012 | | NEPHROLOGY [address] | RN | Dx); Hypertension; | | | | [address] | | CKD (chronic kidney | | | | [place] | | disease) stage 2, | | | | [address] | | GFR 60-89 ml/min | | | | [phone] | | | +--------+ + + + [...] this encounter Progress Ada Rene RN - 10/13/2012 4:24 PM PDTLabs [facility] ally signed by Ada Serrano RN at 10/13/2012 4:24 PM PDTdocumented in this encounter Plan of [...] [place] | | | | | | [address] | | | | | | | | +--------+ + + + + | 05/22/ | Office | Nephrology | Mariana Cortez, | | | 2020 | Visit | | MD [address] | | | | | | [address] [place] | | | | | | [place] [address] | | | | | | [phone] | | | | | | | | +--------+ + + + + documented as of this encounter Visit Diagnoses + + | Diagnosis | + + | Proteinuria - Primary | + + | Hypertension Unspecified essential hypertension | + + | CKD (chronic kidney disease) stage 2, GFR 60-89 ml/min Chronic kidney disease, Stage | | II (mild) | + + documented in this encounter"
--- OUTSIDE RECORDS SUMMARY | ~2019-11-09 | XMS | Encounter Summary ---
Demographics + + + | Address | [address] | | | [place] [address] | + + + | Home Phone | | + + + | Preferred Language | Unknown | + + + | Marital Status | Single | + + + | Hinduism Affiliation | Unknown | + + + [...] Team Providers + +------+ + | Care Torch Heater Name | Role | Phone | + [...] | | | | to pollen | [place] [address] | [address] Phone: | | | | | Allergic | Phone: | [phone] | | | | | rhinitis due | [phone] | Fax: | | | | | to dust | Fax: | [phone] | | | | | Mild | [phone] | | | | | | intermittent | | | | | | | asthma, | | | | | | | uncomplicate | | | | | | | d | | | | | | | Procedures | | | | | | | [place] | | | | | | | IMMUNOTHERAP | | | | | | | Y, ONE | | | | | | | INJECTION | | | | | | | [place] PROFES | | | | | | | SVC,IMMUNOTH | | | | | | | ER,SINGLE/MU | | | | | | | LT AGS | | | +--------+ + + + + + Encounter Details +--------+ + + + + | Date | Type | Department | Care Team | Description | +--------+ + + + + | 12/02/ | Clinical | [facility] | Henok Luther MD | Extrinsic asthma, | | 2018 | Support | OTOLARYNGOLOGY [address] | [address] | unspecified asthma | | | | [address] | [address] [place] [address] | severity, | | | | [place] | [address] | unspecified whether | | | | [address] | | complicated, | | | | [phone] | | unspecified whether | | | [...] encounter Progress Notes Domenica Meredith RN - 12/02/2017 3:45 PM PDTPatient presents with epi-pen & inhaler. No ac tive wheezing or cough associated with asthma today. Denies delayed reaction from previous a llergy injection. No fever or allergy related rash. No recent heavy exposure to allergens. N o plans for strenuous exercise immediately before or after injection today.Electronically si gned by Domenica Meredith RN at 12/02/2017 4:05 PM PDTdocumented in this encounter Plan of [...] [place] | | | | | | [address] | | | | | | | | +--------+ + + + + | 05/22/ | Office | Nephrology | Mariana Cortez, | | | 2020 | Visit | | MD [address] | | | | | | [address] [place] | | | | | | [place] [address] | | | | | | [phone] | | | | | | | [...]
--- OUTSIDE RECORDS SUMMARY | ~2019-11-09 | XMS | Encounter Summary ---
Demographics + + + | Address | [address] | | | [place] [address] | + + + | Home Phone | | + + + | Preferred Language | Unknown | + + + | Marital Status | Single | + + + | Druze Affiliation | Unknown | + + + [...] Team Providers + +------+ + | Care Metalworker Name | Role | Phone | + +------+ + | Ronel Jacobson PA-C | PCP | | + +------+ + Reason for Visit + +--------+ + | Reason | Onset | Comments | | | Date | | + +--------+ + | Allergies | 01/28/ | referral | | | 2015 | | + +--------+ + Encounter Details +--------+ + + + + | Date | Type | Department | Care Team | Description | +--------+ + + + + | 03/08/ | Telephone | [facility] | Henok Luther MD | Allergies (referral) | | 2015 | | OTOLARYNGOLOGY [address] | [address] [place] [address] | | | | | [facility] | [facility] [place] | | | | | [place] | [address] | | | | | [address] | | | | | | [phone] | | | +--------+ + + + [...] this encounter Miscellaneous Notes Telephone Encounter - Modesta Benitez RN - 03/28/2015 10:46 AM PSTReferral authoriz ed chintan Reyes for the month of March. Patient scheduled for initiation of immunother apy on 04/02/15. Telephone Encounter - Modesta Benitez RN - 03/08/2015 4:43 PM PSTWas told by Referr Mariana cruz, that in between when she obtained her allergy testing on 01/18/16 and now when she is scheduled for immunotherapy [place] obtained [place]. Medicaid will not cove r immunotherapy unless patient has the diagnosis of asthma. She will need to see if [place] will cover all the cost. Called patient and relayed this message. She states she will co ntact [place]. Cancelled 03/12/15 appointment. documented in this encounter Plan of Treatment +--------+ + + + + | Date | Type | Specialty | Care Team | Description | +--------+ + + + + | 01/17/ | Appointment | Radiology | Bill Arevalo DNP | | | 2019 | | | [address] | | | | | | [place] | | | | | | [address] | | | | | | | | +--------+ + + + + | 01/17/ | Office | Vascular Surgery | Bill Arevalo DNP | | | 2019 | Visit | | [address] | | | | | | [place] | | | | | | [address] | | | | | | | | +--------+ + + + + | 05/22/ | Office | Nephrology | Mariana Cortez, | | | 2020 | Visit | | [address] | | | | | | [address] [place] | | | | | | [place] [address] | | | | | | [phone] | | | | | | | | +--------+ + + + + documented as of this encounter Visit Diagnoses Not on filedocumented in this encounter"
--- OUTSIDE RECORDS SUMMARY | ~2019-11-09 | XMS | Encounter Summary ---
Demographics + + + | Address | [address] | | | [place] [address] | + + + | Home Phone | | + + + | Preferred Language | Unknown | + + + | Marital Status | Single | + + + | Buddhist Affiliation | Unknown | + + + | Race | or | + + + | Ethnic Group | Not or | + + + Author + + + | Author | [facility] | | | and [place] | + + + | Organization | [facility] | [...] Team Providers + +------+ + | Care Scrap Shear Operator Name | Role | Phone | [...] | | | to pollen, | [place] [address] | [place], [place] | | | | | unspecified | Phone: | [phone] | | | | | chronicity | [phone] | Phone: | | | | | Allergic | Fax: | [phone] | | | | | rhinitis due | [phone] | Fax: | | | | | to animal | | [phone] | | | | | hair and [...] | | | | | | [place] | | | | | | | IMMUNOTHERAP | | | | | | | Y, ONE | | | | | | | INJECTION | | | | | | | IN PROFES | | | | | | | SVC,IMMUNOTH | | | | | | | ER,SINGLE/MU | | | | | | | LT AGS | | | +--------+ + + + + + Encounter Details +--------+ + + + + | Date | Type | Department | Care Team | Description | +--------+ + + + + | 03/05/ | Clinical | [facility] | Kole Soto | Extrinsic asthma, | | 2018 | Support | OTOLARYNGOLOGY [address] | MD Jeovany [address] | unspecified asthma | | | | [address] | [address] [place] | severity, | | | | [place] | [place] [address] | unspecified whether | | | | [address] | [phone] | complicated, | | | | [phone] | | unspecified whether | | | [...] encounter Progress Notes Narda Lay RN - 03/05/2017 3:45 PM PSTPatient presents with epi-pen & inhaler. No a [...] [place] | | | | | | [address] | | | | | | | | +--------+ + + + + | 01/17/ | Office | Vascular Surgery | Bill Arevalo DNP | | 2019 | Visit | | [address] | | | | | | [place] | | | | | | [address] | | | | | | | | +--------+ + + + + | 05/22/ | Office | Nephrology | Mariana Cortez, | | | 2020 | Visit | | [address] | | | | | | [address] [place] | | | | | | [place] [address] | | | | | | [phone] | | | | | | | [...]
--- OUTSIDE RECORDS SUMMARY | ~2019-11-09 | XMS | Encounter Summary ---
Demographics + + + | Address | [address] | | | [place] [address] | + + + | Home Phone | | + + + | Preferred Language | Unknown | + + + | Marital Status | Single | + + + | Sikhism Affiliation | Unknown | + + + | Race | or | + + + | Ethnic Group | Not or | + + + Author + + + | Author | [facility] | | | and [place] | + + + | Organization | [facility] | | | [...] Team Providers + +------+ + | Care Optical Laboratory Technician Name | Role | Phone | + +------+ + | Ronel Jacobson PA-C | PCP | | + +------+ + Reason for Visit + +--------+ + | Reason | Onset | Comments | | | Date | | + +--------+ + | Procedure | 01/22/ | surgery date | | | 2016 | | + +--------+ + Encounter Details +--------+ + + + + | Date | Type | Department | Care Team | Description | +--------+ + + + + | 01/22/ | Telephone | [facility] | Henok Luther MD | Procedure (surgery | | 2016 | | OTOLARYNGOLOGY [address] | [address] | ) | | | | [address] [facility] [address] | [address] [place] [address] | | | | | [place] | [address] | | | | | [address] | | | | | | [phone] | | | +--------+ + + + [...] this encounter Miscellaneous Notes Telephone Encounter - Marguerite Rangel Voip Engineer - 01/23/2017 9:56 AM PSTPatien t returned my call and she has been scheduled for surgery ThursdayFebruary 24. Post op has been made and information has been sent. elephone Encounter - Marguerite Rangel Medical Assis tant - 01/22/2017 10:54 AM PSTCalled and left message for patient letting her know that I wa s calling to get her scheduled for surgery. documented in this encounter Plan of Treatment +--------+ + + + + | Date | Type | Specialty | Care Team | Description | +--------+ + + + + | 01/17/ | Appointment | Radiology | Bill Arevalo DNP | | | 2019 | | | [address] | | | | | | [place] | | | | | | [address] | | | | | | | | +--------+ + + + + | 01/17/ | Office | Vascular Surgery | Bill Arevalo DNP | | | 2019 | Visit | | [address] | | | | | | [place] | | | | | | [address] | | | | | | | | +--------+ + + + + | 05/22/ | Office | Nephrology | Mariana Cortez, | | | 2020 | Visit | | [address] | | | | | | [address] [place] | | | | | | [place] [address] | | | | | | [phone] | | | | | | | | +--------+ + + + + documented as of this encounter Visit Diagnoses Not on filedocumented in this encounter"
--- OUTSIDE RECORDS SUMMARY | ~2019-11-09 | XMS | Encounter Summary ---
Demographics + + + | Address | [address] | | | [place] [address] | + + + | Home Phone [...] Author + + + | Author | [facility] | | | and [place] | + + + | Organization | [facility] | | [...] Team Providers + +------+ + | Care Field Sampling Technician Name | Role | Phone | [...] | | | | severity, | [place] [address] | [address] Phone: | | | | | uncomplicate | Phone: | [phone] | | | | | d | [phone] | Fax: | | | | | Non-seasonal | Fax: | [phone] | | | | | allergic | [phone] | | | | | | rhinitis due | | | | | | | to pollen | | | | | | | Procedures | | | | | | | [place] | | | | | | | IMMUNOTHERAP | | | | | | | Y, ONE | | | | | | | INJECTION | | | | | | | [place] | | | | | | | IMMUNOTHERAP | | | | | | | Y, 2+ | | | | | | | INJECTIONS | | | | | | | [place] PROFES | | | | | | [...] | +--------+ + + + + | 07/02/ | Clinical | [facility] [place] | Henok Luther MD | Non-seasonal | | 2017 | Support | OTOLARYNGOLOGY [address] | [address] | allergic rhinitis | | | | [address] | [address] [place] | due to pollen | | | | [place] | [address] | (Primary Dx); | | | | [address] | | Allergic rhinitis | | | | [phone] | | due to animal (cat) | [...] encounter Progress Notes Modesta Benitez RN - 07/02/2016 4:15 PM PDTPatient presents with epi-pen & inhaler . No active wheezing or cough associated with asthma today. Denies delayed reaction from pre vious allergy injection. No fever or allergy related rash. No recent heavy exposure to aller gens. No plans for strenuous exercise immediately before or after injection today.Electronic ally signed by Modesta Benitez RN at 07/02/2016 4:51 PM PDTdocumented in this encoun ter Plan [...] [place] | | | | | | [address] | | | | | | | | +--------+ + + + + | 01/17/ | Office | Vascular Surgery | Bill Arevalo DNP | | | 2019 | Visit | | [address] | | | | | | [place] | | | | | | [address] | | | | | | | | +--------+ + + + + | 05/22/ | Office | Nephrology | Mariana Cortez W, | | | 2020 | Visit | | [address] | | | | | | [address] [place] | | | | | | [place] [address] | | | | | | [phone] | | | | | | | [...]
--- OUTSIDE RECORDS SUMMARY | ~2019-11-09 | XMS | Encounter Summary ---
Demographics + + + | Address | [address] | | | [place] [address] | + + + | Home Phone | | + + + | Preferred Language | Unknown | + + + | Marital Status | Single | + + + | Jainism Affiliation | Unknown | + + + | Race | or | + + + | Ethnic Group | Not or | + + + Author + + + | Author | [facility] | | | and [place] | + + + | Organization | [facility] | | [...] Team Providers + +------+ + | Care Inspector Precision Name | Role | Phone | + [...] | | | | to pollen | [place] [address] | [address] Phone: | | | | | Allergic | Phone: | [phone] | | | | | rhinitis due | [phone] | Fax: | | | | | to dust | Fax: | [phone] | | | | | Mild | [phone] | | | | | | intermittent | | | | | | | asthma, | | | | | | | uncomplicate | | | | | | | d | | | | | | | Procedures | | | | | | | [place] | | | | | | | IMMUNOTHERAP | | | | | | | Y, ONE | | | | | | | INJECTION | | | | | | | [place] PROFES | | | | | | [...] + | 06/10/ | Clinical | [facility] | Henok Luther MD | Extrinsic asthma, | | 2019 | Support | OTOLARYNGOLOGY [address] | [address] | unspecified asthma | | | | [address] | [address] [place] [address] | severity, | | | | [place] | [address] | unspecified whether | | | | [address] | | complicated, | | | | [phone] | | unspecified whether | | | [...] encounter Progress Notes Domenica Meredith RN - 06/10/2018 3:15 PM PDTPatient presents with epi-pen & inhaler. No ac tive wheezing or cough associated with asthma today. Denies delayed reaction from previous a llergy injection. No fever or allergy related rash. No recent heavy exposure to allergens. N o plans for strenuous exercise immediately before or after injection today.Electronically si gned by Domenica Meredith RN at 06/10/2018 3:28 PM PDTdocumented in this encounter Plan of [...] | Office | Vascular Surgery | Bill Aervalo DNP | | | 2019 | Visit | | [address] | | | | | | [place] | | | | | | [address] | | | | | | | | +--------+ + + + + | 05/22/ | Office | Nephrology | Mariana Cortez, | | | 2020 | Visit | | MD [address] | | | | | | [address] | | | | | | [place] [address] | | | | | | [phone] | | | | | | | [...]
--- OUTSIDE RECORDS SUMMARY | ~2019-11-09 | XMS | Encounter Summary ---
Demographics + + + | Address | [address] | | | [place] [address] | + + + | Home Phone [...] Author + + + | Author | [facility] | | | and [place] | + + + | Organization | [facility] | | [...] Team Providers + +------+ + | Care Cocoa Roaster Name | Role | Phone | + [...] | | | | to pollen | [place] [address] | [address] Phone: | | | | | Allergic | Phone: | [phone] | | | | | rhinitis due | [phone] | Fax: | | | | | to dust | Fax: | [phone] | | | | | Mild | [phone] | | | | | | intermittent | | | | | | | asthma, | | | | | | | uncomplicate | | | | | | | d | | | | | | | Procedures | | | | | | | [place] | | | | | | | IMMUNOTHERAP | | | | | | | Y, ONE | | | | | | | INJECTION | | | | | | | [place] PROFES | | | | | | | SVC,IMMUNOTH | | | | | | | ER,SINGLE/MU | | | | | | | LT AGS | | | +--------+ + + + + + Encounter Details +--------+ + + + + | Date | Type | Department | Care Team | Description | +--------+ + + + + | 08/05/ | Clinical | [facility] | Henok Luther MD | Extrinsic asthma, | | 2019 | Support | OTOLARYNGOLOGY [address] | [address] | unspecified asthma | | | | [address] | [address] [place] | severity, | | | | [place] | [address] | unspecified whether | | | | [address] | | complicated, | | | | [phone] | | unspecified whether | | | [...] encounter Progress Notes Domenica Meredith RN - 08/05/2018 3:45 PM PDTPatient presents with epi-pen & inhaler. No ac tive wheezing or cough associated with asthma today. Denies delayed reaction from previous a llergy injection. No fever or allergy related rash. No recent heavy exposure to allergens. N o plans for strenuous exercise immediately before or after injection today.Electronically si gned by Domenica Meredith RN at 08/05/2018 4:16 PM PDTdocumented in this encounter Plan of [...] [place] | | | | | | [address] | | | | | | | | +--------+ + + + + | 05/22/ | Office | Nephrology | Mariana Cortez, | | | 2020 | Visit | | MD [address] | | | | | | [address] [place] | | | | | | [place] [address] | | | | | | [phone] | | | | | | | [...]
--- OUTSIDE RECORDS SUMMARY | ~2019-11-09 | XMS | Encounter Summary ---
Demographics + + + | Address | [address] | | | [place] [address] | + + + | Home Phone | | + + + | Preferred Language | Unknown | + + + | Marital Status | Single | + + + | Adventism Affiliation | Unknown | + + + | Race | or | + + + | Ethnic Group | Not or | + + + Author + + + | Author | [facility] | | | and [place] | + + + | Organization | [facility] | | | [...] Team Providers + +------+ + | Care Slater Apprentice Name | Role | Phone | + +------+ + | Mehrdad Avalos MD | PCP | | + +------+ + Reason for Referral Diagnostic/Screening (Routine) +--------+--------+ + + + + | Status | Reason | Specialty | Diagnoses / | Referred By | Referred To | | | | | Procedures | Contact | Contact | +--------+--------+ + + + + | Closed | | Radiology | Diagnoses | Bill Arevalo, | | | | | | PAD | DNP [address] | | | | | | (peripheral | [address] | | | | | | artery | [place] [address] | | | | | | disease) | JESSICA PONCE | | | | | | ([facility]) | [address] | | | | | | Procedures | Phone: | | | | | | IR Angiogram | [phone] | | | | | | Lower | Fax: | | | | | | Extremity | [phone] | | | | | | Right | | | +--------+--------+ + + + + Reason for Visit +---------+ + | Reason | Comments | +---------+ + | Consult | osteomyelitis of 5th toe; right foot | +---------+ + Evaluate & Treat (Routine) + + + + + + + | Status | Reason | Specialty | Diagnoses / | Referred By | Referred To | | | | | Procedures | Contact | Contact | + + + + + + + | Authorized | Specialty | Vascular | Diagnoses | [facility] | | | Services | Surgery | | Carmine Henry | Surgery | | | Required | | Osteomyeliti | Delio, | [address] | | | | | s of fifth | [address] | | | | | toe of right | [address] | [place], [place] | | | | | foot (HCC) | [place], [place] | [address] | | | | | | [address] | Phone: | | | | | | Phone: | [phone] | | | | | | [phone] | Fax: | | | | | | Fax: | [phone] | | | | | | [phone] | | + + + + + + + Encounter Details +--------+---------+ + + + | Date | Type | Department | Care Team | Description | +--------+---------+ + + + | 09/21/ | Office | [facility] | Avel Upton MD | PAD (peripheral | | 2020 | Visit | VASCULAR SURGERY | [address] | artery disease) | | | | [address] | [place] | (HCC) (Primary Dx); | | | | [place] | [address] | Critical lower limb | | | | [address] | [phone] | ischemia | | | | [phone] | | | +--------+---------+ + + + [...] this encounter Last Filed Vital Signs + +---------+ + + | Vital Sign | Reading | Time Taken | Comments | + +---------+ + + | Blood Pressure | 171/96 | 09/22/2019 11:03 AM | | | | | PDT | | + +---------+ + + | Pulse | 90 | 09/22/2019 11:03 AM | | | | | PDT | | + +---------+ + + | Temperature | - | - | | + +---------+ + + | Respiratory Rate | - | - | | + +---------+ + + | Oxygen Saturation | 99% | 09/22/2019 11:03 AM | | | | | PDT | | + +---------+ + + | Inhaled Oxygen | - | - | | | Concentration | | | | + +---------+ + + | Weight | - | - | | + +---------+ + + | Height | - | - | | + +---------+ + + | Body Mass Index | - | - | | + +---------+ + + documented in this encounter Progress Notes Avel Upton MD - 09/22/2019 10:[address] [facility] [address] [place] [address] Office: [phone] SUBJECTIVE: Mrs. Forte is a pleasant 49 y.o. female, with a past medical history significant for CKD, DM II, MARYURI, RLS, hypertension, who is referred to me for evaluation and consult regarding he r osteomyelitis to her right 5th toe. She has followed up with ID and podiatry regarding her chronic diabetic foot infection, ulcer and osteomyelitis and has previously undergone a 6 w eyak course of abx (via PICC line). The patient is also post surgical debridement of the ulce r, performed on 07/28/2019. Recent labs have shown she continues to have mildly elevated CRP levels and her glucose levels have been uncontrolled. The patient admits that her ulcer is h ealing very slowly, and is reportedly slower than to be expected. Past Medical History: Diagnosis Date Acute blood loss anemia 08/17/2019 Allergic asthma Chronic kidney disease Diabetes mellitus type II - ORAL Control 10/13/2012 Duodenal ulcer Edema 09/08/2012 Hypertension 10/13/2012 Obesity Organic insomnia MARYURI (obstructive sleep apnea) Rash RLS (restless legs syndrome) Wears dentures upper Past Surgical History: Procedure Laterality Date NASAL SEPTUM SURGERY Bilateral 02/24/2017 Procedure: Septoplasty, Inferior Turbinoplasty; Surgeon: Henok Luther MD; Location: [facility] MAIN OR UPPER GASTROINTESTINAL ENDOSCOPY N/A 08/18/2019 Procedure: EGD; Surgeon: Stepan Magdaleno MD; [facility] [facility] Social History Tobacco Use Smoking status: Current Every Day Smoker Packs/day: 0.25 Years: 20.00 Pack years: 5.00 Types: Cigarettes Last attempt to quit: 09/23/2012 Years since quittin.0 Smokeless tobacco: Never Used Substance Use Topics Alcohol use: Yes Alcohol/week: 1.0 standard drinks Types: 1 Standard drinks or equivalent per week Comment: 1 a month Drug use: No Family History Problem Relation Age of Onset Hypertension Father Stomach cancer Mother 60 Diabetes Other Diabetes Sister Hypertension Sister Diabetes Sister Hypertension Sister Diabetes Sister Hypertension Sister Hypertension Sister Current Outpatient Medications on File Prior to Visit Medication Sig Dispense Refill albuterol 90 mcg/puff inhaler Inhale 2 puffs into the lungs every 6 hours as needed. Alcohol Swabs 70 % PADS by Does not apply route. ascorbic acid (VITAMIN C) 500 mg tablet Take 500 mg by mouth Daily. B-D UF III MINI PEN NEEDLES 31G X 5 MM [facility] TEST strip 4 strips Daily. Blood Glucose Monitoring Suppl (CONTOUR BLOOD GLUCOSE SYSTEM) JOANNA by Does not apply ro craig. bumetanide (BUMEX) 0.5 mg tablet Take 2 tablets by mouth 2 times daily. 120 tablet 11 cetirizine (ZYRTEC) 10 mg tablet Take 10 mg by mouth Daily as needed for Allergies. cholecalciferol (VITAMIN D-3) 2000 units TABS Take [...] 10 mg by mouth daily (with breakfast). ipratropium (ATROVENT) 0.06% nasal spray ipratropium bromide 42 mcg (0.06 %) nasal spra y Magnesium 400 MG CAPS Take 400 mg by mouth Daily. metoprolol succinate (TOPROL-XL) 25 mg 24 hr tablet Take 25 mg by mouth Daily. omeprazole (PRILOSEC) 20 mg capsule Take 20 mg by mouth 2 times daily. rosuvastatin (CRESTOR) 20 mg tablet Take 20 mg by mouth nightly. SEMAGLUTIDE, 1 MG/DOSE, SC Inject 1 mg under the skin Once a week. sodium bicarbonate 650 mg tablet Take 1 tablet by mouth Daily. 90 tablet 3 TechLite Lancets [facility] [place] current facility-administered medications on file prior to visit. Allergies Allergen Reactions Furosemide Swelling ROS: Comprehensive ROS performed and pertinent items described in the HPI. OBJECTIVE: VITALS: BP (!) 171/96 | Pulse 90 | SpO2 99% EXAM: CONSTITUTIONAL: Conversant. Well-developed. No acute distress. EYES: Anicteric sclerae. No lid drag. No proptosis. RESPIRATORY: Normal effort. Regular, even, and unlabored rate. CARDIOVASCULAR: Rate regular. ABDOMEN: Soft, non-tender, non-distended. SKIN: [place], warm, and dry without rashes or lesions. EXTREMITIES: ROM not limited. No digital cyanosis. Normal gait. NEUROLOGIC: Cranial nerves II-XII grossly intact. Alert and oriented x 3. PSYCHIATRIC: Appropriate affect, speech, and tone. Judgement and insight intact. VASCULAR: monophasic pedal signals IMAGING: VAS LOWER EXTREMITY ARTERIES RIGHT CLINICAL INFORMATION: Weak pedal pulse, chronic foot ulcer COMPARISON: US LOWER EXTREMITY VENOUS DOPPLER BILAT (11/18/2012); PROCEDURE: Duplex and color Doppler evaluation of the arteries of the right lower extremity including spectral analysis. FINDINGS: Vessel, peak systolic velocity in cm/sec, waveform analysis: Right lower extremity: SENIOR MILITARY ANALYST prox: 91, triphasic DFA prox: 46, triphasic SFA prox: 104, triphasic SFA mid: 106, triphasic SFA dist: 121, triphasic Pop mid: 94, triphasic CORY prox: 86, triphasic CORY dist: 235, triphasic T LANDSCAPE ENGINEER prox: 0, absent LANDSCAPE ENGINEER dist: 0, absent Peroneal prox: 33, triphasic Peroneal dist: 0, absent IMPRESSION: RIGHT LEG: Triphasic inflow and outflow, without hemodynamically significant stenosis. Appe ars to be single-vessel runoff via the CORY, with > 50% distal CORY stenosis (113-235 cm/sec). LANDSCAPE ENGINEER chronically occluded throughout. 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 Final Report Signed by: Darleen Phillip, Dank Sign Date/Time: 09/15/2019 7:49 AM ASSESSMENT/PLAN: Discussed US RLE arteries results from 09/13 with the patient, which indicates LANDSCAPE ENGINEER and perone al occlusion (appears chronic) with >50% distal CORY stenosis. I suspect the stenosis and alexandrea rowing is contributing to her slow healing chronic ulcer. We discussed surgical option and m echanism of RLE arteriogram with the patient. We have discussed benefits and risks of this p rocedure, including bleeding, infection, etc. Patient is understanding, is agreeable to the procedure, and has signed consent for surgery on 09/28/2019. Patient was instructed not to co nsume any foods or fluids after 11:59 PM on the date prior to surgery. All questions and con cerns addressed. Patient understands and is agreeable. Attending Note: Documentation assistance provided by Thiago Galeano). Information re corded by the love has been reviewed and validated by me. I agree with its contents. Signed by: Thiago Arreola Love 09/22/19 11:41 AM PDT Avel Upton MD Vascular Surgery documented in this enc ounter H&P Notes Avel Upton MD - 09/22/2019 10:[address] [facility] [address] [place] [address] Office: [phone] SUBJECTIVE: Mrs. Forte is a pleasant 49 y.o. female, with a past medical history significant for CKD, DM II, MARYURI, RLS, hypertension, who is referred to me for evaluation and consult regarding he r osteomyelitis to her right 5th toe. She has followed up with ID and podiatry regarding her chronic diabetic foot infection, ulcer and osteomyelitis and has previously undergone a 6 w eyak course of abx (via PICC line). The patient is also post surgical debridement of the ulce r, performed on 07/28/2019. Recent labs have shown she continues to have mildly elevated CRP levels and her glucose levels have been uncontrolled. The patient admits that her ulcer is h ealing very slowly, and is reportedly slower than to be expected. Past Medical History: Diagnosis Date Acute blood loss anemia 08/17/2019 Allergic asthma Chronic kidney disease Diabetes mellitus type II - ORAL Control 10/13/2012 Duodenal ulcer Edema 09/08/2012 Hypertension 10/13/2012 Obesity Organic insomnia MARYURI (obstructive sleep apnea) Rash RLS (restless legs syndrome) Wears dentures upper Past Surgical History: Procedure Laterality Date NASAL SEPTUM SURGERY Bilateral 02/24/2017 Procedure: Septoplasty, Inferior Turbinoplasty; Surgeon: Henok Luther MD; Location: [facility] MAIN OR UPPER GASTROINTESTINAL ENDOSCOPY N/A 08/18/2019 Procedure: EGD; Surgeon: Stepan Magdaleno MD; [place] [facility] Social History Tobacco Use Smoking status: Current Every Day Smoker Packs/day: 0.25 Years: 20.00 Pack years: 5.00 Types: Cigarettes Last attempt to quit: 09/23/2012 Years since quittin.0 Smokeless tobacco: Never Used Substance Use Topics Alcohol use: Yes Alcohol/week: 1.0 standard drinks Types: 1 Standard drinks or equivalent per week Comment: 1 a month Drug use: No Family History Problem Relation Age of Onset Hypertension Father Stomach cancer Mother 60 Diabetes Other Diabetes Sister Hypertension Sister Diabetes Sister Hypertension Sister Diabetes Sister Hypertension Sister Hypertension Sister Current Outpatient Medications on File Prior to Visit Medication Sig Dispense Refill albuterol 90 mcg/puff inhaler Inhale 2 puffs into the lungs every 6 hours as needed. Alcohol Swabs 70 % PADS by Does not apply route. ascorbic acid (VITAMIN C) 500 mg tablet Take 500 mg by mouth Daily. B-D UF III MINI PEN NEEDLES 31G X 5 MM MISC CROW CONTOUR TEST strip 4 strips Daily. Blood Glucose Monitoring Suppl (CONTOUR BLOOD GLUCOSE SYSTEM) JOANNA by Does not apply ro craig. bumetanide (BUMEX) 0.5 mg tablet Take 2 tablets by mouth 2 times daily. 120 tablet 11 cetirizine (ZYRTEC) 10 mg tablet Take 10 mg by mouth Daily as needed for Allergies. cholecalciferol (VITAMIN D-3) 2000 units TABS Take [...] 10 mg by mouth daily (with breakfast). ipratropium (ATROVENT) 0.06% nasal spray ipratropium bromide 42 mcg (0.06 %) nasal spra y Magnesium 400 MG CAPS Take 400 mg by mouth Daily. metoprolol succinate (TOPROL-XL) 25 mg 24 hr tablet Take 25 mg by mouth Daily. omeprazole (PRILOSEC) 20 mg capsule Take 20 mg by mouth 2 times daily. rosuvastatin (CRESTOR) 20 mg tablet Take 20 mg by mouth nightly. SEMAGLUTIDE, 1 MG/DOSE, SC Inject 1 mg under the skin Once a week. sodium bicarbonate 650 mg tablet Take 1 tablet by mouth Daily. 90 tablet 3 TechLite Lancets [facility] [place] current facility-administered medications on file prior to visit. Allergies Allergen Reactions Furosemide Swelling ROS: Comprehensive ROS performed and pertinent items described in the HPI. OBJECTIVE: VITALS: BP (!) 171/96 | Pulse 90 | SpO2 99% EXAM: CONSTITUTIONAL: Conversant. Well-developed. No acute distress. EYES: Anicteric sclerae. No lid drag. No proptosis. RESPIRATORY: Normal effort. Regular, even, and unlabored rate. CARDIOVASCULAR: Rate regular. ABDOMEN: Soft, non-tender, non-distended. SKIN: [place], warm, and dry without rashes or lesions. EXTREMITIES: ROM not limited. No digital cyanosis. Normal gait. NEUROLOGIC: Cranial nerves II-XII grossly intact. Alert and oriented x 3. PSYCHIATRIC: Appropriate affect, speech, and tone. Judgement and insight intact. VASCULAR: monophasic pedal signals IMAGING: VAS LOWER EXTREMITY ARTERIES RIGHT CLINICAL INFORMATION: Weak pedal pulse, chronic foot ulcer COMPARISON: US LOWER EXTREMITY VENOUS DOPPLER BILAT (11/18/2012); PROCEDURE: Duplex and color Doppler evaluation of the arteries of the right lower extremity including spectral analysis. FINDINGS: Vessel, peak systolic velocity in cm/sec, waveform analysis: Right lower extremity: SENIOR MILITARY ANALYST prox: 91, triphasic DFA prox: 46, triphasic SFA prox: 104, triphasic SFA mid: 106, triphasic SFA dist: 121, triphasic Pop mid: 94, triphasic CORY prox: 86, triphasic CORY dist: 235, triphasic T LANDSCAPE ENGINEER prox: 0, absent LANDSCAPE ENGINEER dist: 0, absent Peroneal prox: 33, triphasic Peroneal dist: 0, absent IMPRESSION: RIGHT LEG: Triphasic inflow and outflow, without hemodynamically significant stenosis. Appe ars to be single-vessel runoff via the CORY, with > 50% distal CORY stenosis (113-235 cm/sec). LANDSCAPE ENGINEER chronically occluded throughout. 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 Final Report Signed by: Darleen Phillip Shawn Sign Date/Time: 09/15/2019 7:49 AM ASSESSMENT/PLAN: Discussed US RLE arteries results from 09/13 with the patient, which indicates LANDSCAPE ENGINEER and perone al occlusion (appears chronic) with >50% distal CORY stenosis. I suspect the stenosis and alexandrea rowing is contributing to her slow healing chronic ulcer. We discussed surgical option and m echanism of RLE arteriogram with the patient. We have discussed benefits and risks of this p rocedure, including bleeding, infection, etc. Patient is understanding, is agreeable to the procedure, and has signed consent for surgery on 09/28/2019. Patient was instructed not to co nsume any foods or fluids after 11:59 PM on the date prior to surgery. All questions and con cerns addressed. Patient understands and is agreeable. Attending Note: Documentation assistance provided by Thiago Arreola ([email or web address]). Information re corded by the scribe has been reviewed and validated by me. I agree with its contents. Signed by: Love Maria 09/22/19 11:41 AM PDT Avel Upton MD Vascular Surgery documented in this enc ounter Plan of Treatment +--------+ + + + [...] | | | | [place] | | | | | | [address] | | | | | | | | +--------+ + + + + | 05/22/ | Office | Nephrology | Mariana Cortez, | | | 2020 | Visit | | MD [address] | | | | | | [address] | | | | | | [place] [address] | | | | | | [phone] | | | | | | | | +--------+ + + + + documented as of this encounter Results IR Angiogram Lower Extremity Right (09/28/2019 12:14 PM PDT) + + | Specimen | + + | | + + + + --+ | Narrative | Performed At | + + --+ | LOWER | [facility] | | EXTREMITY ARTERIOGRAM, Unilateral PREOPERATIVE DIAGNOSIS: Critical | | | limb ischemia of right lower extremity with poorly healing right foot | | | wound POSTOPERATIVE DIAGNOSIS: Same PROCEDURE: 1. Moderate conscious | | | sedation2. Ultrasound guided access of the left common femoral | | | artery3. Selective right common femoral artery catheterization with | | | right leg runoff4. Selective catheterization of right anterior | | | tibial artery with a right anterior tibial arteriogram SURGEON: Avel | | | MD Won HELP DESK SUPPORT SPECIALIST: None ANESTHESIA: Moderate sedation and local | | | anesthesia Informed consent was obtained from the patient. | | | Continuous cardiac monitoring was performed throughout the procedure. | | | Conscious sedation was provided by the nursing staff during the | | | procedure under my supervision. Sedation time: 34 minutes | | | Medications: 1 mg Versed IV, 50 Mcg Fentanyl IV ESTIMATED BLOOD | | | LOSS: Minimal CONTRAST: 43 mL of Omnipaque 240 INDICATIONS: See | | | preoperative history and physical FINDINGS: Aortogram was not done due | | | to contrast limitations. Right femoral and popliteal arteries were | | | widely patent. Only single-vessel runoff via right anterior tibial | | | artery. Right peroneal artery and posterior tibial artery were | | | chronically occluded. Right distal anterior tibial artery occludes | | | with corkscrew collaterals reconstituting the dorsalis pedis artery. | | | Unable to cross distal right anterior tibial artery occlusion. | | | Will need right mid anterior tibial artery to dorsalis pedis artery | | | bypass due to critical limb ischemia. DESCRIPTION OF PROCEDURE: The | | | patient was properly identified and brought to the [facility]. The | | | patient was placed supine on the catheter table and patient was given | | | moderate sedation by nursing staff under my supervision. Patient's | | | bilateral groins were then prepped and draped in the usual sterile | | | fashion. Local anesthetic was given to the left groin and the left | | | common femoral artery was accessed under ultrasound guidance using a | | | micropuncture needle. A micropuncture sheath was inserted over a wire | | | and up sized to a 4 Mauritanian sheath. A Omni flush catheter was then | | | inserted into the distal aorta and the Omni Flush catheter was then | | | used to guide a Glidewire into the right common femoral artery and | | | then the catheter was then advanced over the wire. A right lower | | | extremity runoff was then performed with the findings as described | | | above. Next, an Amplatzer wire was then inserted over the catheter and | | | the 4 Mauritanian sheath was removed. A 6 Mauritanian destination sheath was | | | then inserted over the wire with the tip of the sheath being placed | | | into the right common femoral artery. A vertebral catheter was | | | inserted over the wire and the wire was then removed. A Glidewire was | | | then placed into the vertebral catheter and used to attempt crossing | | | of distal right anterior tibial artery. However, this proved | | | unsuccessful. A selective right anterior tibial arteriogram was then | | | performed through the catheter for preoperative planning. The | | | destination sheath was then removed and a Perclose device was then | | | used on the left common femoral artery and hemostasis was ensured. The | | | patient was then taken to the observation unit for further | | | monitoring. IMPRESSION: 1. Aortogram was not done due to contrast | | | imitations.2. Right femoral and popliteal arteries were widely | | | patent.3. Right peroneal artery and posterior tibial artery were | | | chronically occluded throughout.4. Right anterior tibial artery | | | occludes distally with reconstitution of right dorsalis pedis artery | | | via corkscrew collaterals.5. Due to critical limb ischemia, | | | recommend mid anterior tibial artery to dorsalis pedis artery bypass. | | | | | |Next, an Amplatzer wire was then inserted over the catheter and the 4 | | |Mauritanian sheath was removed. A 6 Mauritanian destination sheath was then inserted | | |over the wire with the tip of the sheath being placed into the right | | |common femoral artery. A vertebral catheter was inserted over the wire and | | |the wire was then removed. A Glidewire was then placed into the vertebral | | |catheter and used to attempt crossing of distal right anterior tibial | | |artery. However, this proved unsuccessful. A selective right anterior | | |tibial arteriogram was then performed through the catheter for | | |preoperative planning. The destination sheath was then removed and a | | |Perclose device was then used on the left common femoral artery and | | |hemostasis was ensured. The patient was then taken to the observation unit | | |for further monitoring. | | | | | |IMPRESSION: | | | | | |1. Aortogram was not done due to contrast imitations. | | |2. Right femoral and popliteal arteries were widely patent. | | |3. Right peroneal artery and posterior tibial artery were chronically | | |occluded throughout. | | |4. Right anterior tibial artery occludes distally with reconstitution of | | |right dorsalis pedis artery via corkscrew collaterals. | | |5. Due to critical limb ischemia, recommend mid anterior tibial artery to | | |dorsalis pedis artery bypass. | | | | | + + --+ + +---------+ + + | Performing | Address | City[facility] | Phone Number | | Organization | | | | + +---------+ + + | [facility] | | | | + +---------+ + + documented in this encounter Visit Diagnoses + + | Diagnosis | + + | PAD (peripheral artery disease) (HCC) - Primary Unspecified disorders of arteries and | | arterioles | + + | Critical lower limb ischemia Unspecified circulatory system disorder | + + documented in this encounter"
--- OUTSIDE RECORDS SUMMARY | ~2019-11-09 | XMS | Encounter Summary ---
Demographics + + + | Address | [address] | | | [place] [address] | + + + | Home Phone | | + + + | Preferred Language | Unknown | + + + | Marital Status | Single | + + + | Pentecostal Affiliation | Unknown | + + + [...] Team Providers + +------+ + | Care Computer Information Science Professor Name | Role | Phone | + +------+ + | Ronel Jacobson PA-C | PCP | | + +------+ + Encounter Details +--------+ + + + + | Date | Type | Department | Care Team | Description | +--------+ + + + + | 02/24/ | Abstract | [facility] | Mariana Cortez W, | | | 2016 | | NEPHROLOGY [address] | [address] | | | | | [address] | [address] [place] | | | | | [place], [place] | [place] [address] | | | | | [address] | [phone] | | | | | [phone] | | | +--------+ + + + [...] [place] | | | | | | [address] | | | | | | | | +--------+ + + + + | 01/17/ | Office | Vascular Surgery | Bill Arevalo DNP | | | 2019 | Visit | | [address] | | | | | | [place] | | | | | | [address] | | | | | | | | +--------+ + + + + | 05/22/ | Office | Nephrology | Mariana Cortez W, | | | 2020 | Visit | | [address] | | | | | | [address] [place] | | | | | | [place] [address] | | | | | | [phone] | | | | | | | | +--------+ + + + + documented as of this encounter Procedures + +--------+ + + + | Procedure Name | Priori | Date/Time | Associated Diagnosis | Comments | | | ty | | | | + +--------+ + + + | EXTERNAL LAB: LEVI | Routin | 02/21/2016 | | Results for this | | | e | | | procedure are in the | | | | | | results section. | + +--------+ + + + | EXTERNAL LAB: | Routin | 02/21/2016 | | Results for this | | GLUCOSE | e | | | procedure are in the | | | | | | results section. | + +--------+ + + + | EXTERNAL LAB: ALT | Routin | 02/21/2016 | | Results for this | | | e | | | procedure are in the | | | | | | results section. | + +--------+ + + + | EXTERNAL LAB: AST | Routin | 02/21/2016 | | Results for this | | | e | | | procedure are in the | | | | | | results section. | + +--------+ + + + | EXTERNAL LAB: | Routin | 02/21/2016 | | Results for this | | ALKALINE PHOSPHATASE | e | | | procedure are in the | | | | | | results section. | + +--------+ + + + | EXTERNAL LAB: | Routin | 02/21/2016 | | Results for this | | BILIRUBIN, TOTAL | e | | | procedure are in the | | | | | | results section. | + +--------+ + + + | EXTERNAL LAB: | Routin | 02/21/2016 | | Results for this | | ALBUMIN | e | | | procedure are in the | | | | | | results section. | + +--------+ + + + | EXTERNAL LAB: | Routin | 02/21/2016 | | Results for this | | PROTEIN, TOTAL | e | | | procedure are in the | | | | | | results section. | + +--------+ + + + | EXTERNAL LAB: | Routin | 02/21/2016 | | Results for this | | CALCIUM | e | | | procedure are in the | | | | | | results section. | + +--------+ + + + | EXTERNAL LAB: CARBON | Routin | 02/21/2016 | | Results for this | | DIOXIDE | e | | | procedure are in the | | | | | | results section. | + +--------+ + + + | EXTERNAL LAB: | Routin | 02/21/2016 | | Results for this | | CHLORIDE | e | | | procedure are in the | | | | | | results section. | + +--------+ + + + | EXTERNAL LAB: | Routin | 02/21/2016 | | Results for this | | POTASSIUM | e | | | procedure are in the | | | | | | results section. | + +--------+ + + + | EXTERNAL LAB: SODIUM | Routin | 02/21/2016 | | Results for this | | | e | | | procedure are in the | | | | | | results section. | + +--------+ + + + | EXTERNAL LAB: EGFR | Routin | 02/21/2016 | | Results for this | | | e | | | procedure are in the | | | | | | results section. | + +--------+ + + + | EXTERNAL LAB: | Routin | 02/21/2016 | | Results for this | | CREATININE | e | | | procedure are in the | | | | | | results section. | + +--------+ + + + documented in this encounter Results External Lab: BUN (02/21/2016) + +--------+ + + + | Component | Value | Ref Range | Performed | Pathologist | | | | | At | Signature | + +--------+ + + + | BUN, | 58 (A) | 8 - 25 | EXTERNAL | | | External | | | LAB | | + +--------+ + + + + +---------+ + + | Performing | Address | City/State/Zipcode | Phone Number | | Organization | | | | + +---------+ + + | EXTERNAL LAB | | | | + +---------+ + + External Lab: Glucose (02/21/2016) + +---------+ + + + | Component | Value | Ref Range | Performed | Pathologist | | | | | At | Signature | + +---------+ + + + | Glucose, | 230 (A) | 70 - 100 | EXTERNAL | | | External | | | LAB | | + +---------+ + + + + +---------+ + + | Performing | Address | City/State/Zipcode | Phone Number | | Organization | | | | + +---------+ + + | EXTERNAL LAB | | | | + +---------+ + + External Lab: ALT (02/21/2016) + +-------+ + + + | Component | Value | Ref Range | Performed | Pathologist | | | | | At | Signature | + +-------+ + + + | ALT, | 16 | | EXTERNAL | | | External | | | LAB | | + +-------+ + + + + +---------+ + + | Performing | Address | City/State/Zipcode | Phone Number | | Organization | | | | + +---------+ + + | EXTERNAL LAB | | | | + +---------+ + + External Lab: AST (02/21/2016) + +-------+ + + + | Component | Value | Ref Range | Performed | Pathologist | | | | | At | Signature | + +-------+ + + + | AST, | 12 | 0 - 32 | EXTERNAL | | | External | | | LAB | | + +-------+ + + + + +---------+ + + | Performing | Address | City/State/Zipcode | Phone Number | | Organization | | | | + +---------+ + + | EXTERNAL LAB | | | | + +---------+ + + External Lab: Alkaline Phosphatase (02/21/2016) + +-------+ + + + | Component | Value | Ref Range | Performed | Pathologist | | | | | At | Signature | + +-------+ + + + | ALP, | 92 | 35 - 104 | EXTERNAL | | | External | | | LAB | | + +-------+ + + + + +---------+ + + | Performing | Address | City/State/Zipcode | Phone Number | | Organization | | | | + +---------+ + + | EXTERNAL LAB | | | | + +---------+ + + External Lab: Bilirubin, Total (02/21/2016) + +-------+ + + + | Component | Value | Ref Range | Performed | Pathologist | | | | | At | Signature | + +-------+ + + + | Bilirubin, | <0.2 | | EXTERNAL | | | Total, | | | LAB | | | External | | | | | + +-------+ + + + + +---------+ + + | Performing | Address | City/State/Zipcode | Phone Number | | Organization | | | | + +---------+ + + | EXTERNAL LAB | | | | + +---------+ + + External Lab: Albumin (02/21/2016) + +---------+ + + + | Component | Value | Ref Range | Performed | Pathologist | | | | | At | Signature | + +---------+ + + + | Albumin, | 3.1 (A) | 3.5 - 5.1 | EXTERNAL | | | External | | | LAB | | + +---------+ + + + + +---------+ + + | Performing | Address | City/State/Zipcode | Phone Number | | Organization | | | | + +---------+ + + | EXTERNAL LAB | | | | + +---------+ + + External Lab: Protein, Total (02/21/2016) + +-------+ + + + | Component | Value | Ref Range | Performed | Pathologist | | | | | At | Signature | + +-------+ + + + | Protein, | 6.6 | 6 - 8 | EXTERNAL | [...] + +---------+ + + External Lab: Calcium (02/21/2016) + +-------+ + + + | Component | Value | Ref Range | Performed | Pathologist | | | | | At | Signature | + +-------+ + + + | Calcium, | 8.6 | 8.4 - 10.2 | EXTERNAL | | | External | | | LAB | | + +-------+ + + + + +---------+ + + | Performing | Address | City/State/Zipcode | Phone Number | | Organization | | | | + +---------+ + + | EXTERNAL LAB | | | | + +---------+ + + External Lab: Carbon Dioxide (02/21/2016) + +-------+ + + + | Component | Value | Ref Range | Performed | Pathologist | | | | | At | Signature | + +-------+ + + + | Carbon | 22 | 22 - 32 | EXTERNAL | | | Dioxide, | | | LAB | | | External | | | | | + +-------+ + + + + +---------+ + + | Performing | Address | City/State/Zipcode | Phone Number | | Organization | | | | + +---------+ + + | EXTERNAL LAB | | | | + +---------+ + + External Lab: Chloride (02/21/2016) + +-------+ + + + | Component | Value | Ref Range | Performed | Pathologist | | | | | At | Signature | + +-------+ + + + | Chloride, | 99 | 99 - 110 | EXTERNAL | | | External | | | LAB | | + +-------+ + + + + +---------+ + + | Performing | Address | City/State/Zipcode | Phone Number | | Organization | | | | + +---------+ + + | EXTERNAL LAB | | | | + +---------+ + + External Lab: Potassium (02/21/2016) + +---------+ + + + | Component [...] + +---------+ + + External Lab: Sodium (02/21/2016) + +-------+ + + + | Component | Value | Ref Range | Performed | Pathologist | | | | | At | Signature | + +-------+ + + + | Sodium, | 135 | 135 - 145 | EXTERNAL | | | External | | | LAB | | + +-------+ + + + + +---------+ + + | Performing | Address | City/State/Zipcode | Phone Number | | Organization | | | | + +---------+ + + | EXTERNAL LAB | | | | + +---------+ + + External Lab: eGFR (02/21/2016) + +--------+ + + + | Component | Value | Ref Range | Performed | Pathologist | | | | | At | Signature | + +--------+ + + + | eGFR, | 36 (A) | 60 | EXTERNAL | | [...] + +---------+ + + External Lab: Creatinine (02/21/2016) + + + + + + | Component | Value | Ref Range | Performed | Pathologist | | | | | At | Signature | + + + + + + | Creatinine, | 1.56 (A) | 0.6 - 1.3 | EXTERNAL | [...]
--- OUTSIDE RECORDS SUMMARY | ~2019-11-09 | XMS | Encounter Summary ---
Demographics + + + | Address | [address] | | | [place] [address] | + + + | Home Phone | | + + + | Preferred Language | Unknown | + + + | Marital Status | Single | + + + | Episcopal Affiliation | Unknown | + + + | Race | or | + + + | Ethnic Group | Not or | + + + Author + + + | Author | [facility] | | | and [place] | + + + | Organization | [facility] | | | and [place] | + + + | Address | Unknown | + + + | Phone | Unavailable | + + + Support + + +---------+ + | Name | Relationship | Address | Phone | + + +---------+ + | aKrina Thomason | ECON | Unknown | | + + +---------+ + | Rebeca Forte | ECON | Unknown | | + + +---------+ + Care Team Providers + +------+ + | Care Hander In Name | Role | Phone | + +------+ + | Mehrdad Avalos MD | PCP | | + +------+ + Encounter Details +--------+ + + + + | Date | Type | Department | Care Team | Description | +--------+ + + + + | 05/15/ | Abstract | [facility] [place] | Mariana Cortez W, | | | 2019 | | NEPHROLOGY [address] | [address] | | | | | [address] | [address] [place] | | | | | [place], [place] | [place] [address] | | | | | [address] | [phone] | | | | | [phone] | | | +--------+ + + + [...] [place] | | | | | | [address] | | | | | | | | +--------+ + + + + | 05/22/ | Office | Nephrology | Mariana Cortez, | | | 2021 | Visit | | [address] | | | | | | [address] [place] | | | | | | [place] [address] | | | | | | [phone] | | | | | | | | +--------+ + + + + documented as of this encounter Procedures + +--------+ + + + | Procedure Name | Priori | Date/Time | Associated Diagnosis | Comments | | | ty | | | | + +--------+ + + + | EXTERNAL LAB: | Routin | 05/09/2019 | | Results for this | | VITAMIN D, | e | | | procedure are in the | | 25-HYDROXY | | | | results section. | + +--------+ + + + documented in this encounter Results External Lab: Vitamin D, 25-Hydroxy (05/09/2019) + +-------+ + + + | Component | Value | Ref Range | Performed | Pathologist | | | | | At | Signature | + +-------+ + + + | Vitamin D, | 30.7 | | | | | 25-Hydroxy, | | | | | | External | | | | | + +-------+ + + + + + | Specimen | + + | Blood | + + documented in this encounter Visit Diagnoses Not on filedocumented in this encounter"
--- OUTSIDE RECORDS SUMMARY | ~2019-11-09 | XMS | Encounter Summary ---
Demographics + + + | Address | [address] | | | [place] [address] | + + + | Home Phone | | + + + | Preferred Language | Unknown | + + + | Marital Status | Single | + + + | Yazidi Affiliation | Unknown | + + + | Race | or | + + + | Ethnic Group | Not or | + + + Author + + + | Author | [facility] | | | and [place] | + + + | Organization | [facility] | | | [...] Team Providers + +------+ + | Care Media Relations Associate Name | Role | Phone | + +------+ + | Ronel Jacobson PA-C | PCP | | + +------+ + Encounter Details +--------+ + + + + | Date | Type | Department | Care Team | Description | +--------+ + + + + | 04/01/ | Abstract | [facility] [place] | Mariana Cortez W, | | | 2017 | | NEPHROLOGY [address] | [address] | | | | | [address] | [address] [place] | | | | | [place], [place] | [place] [address] | | | | | [address] | [phone] | | | | | [phone] | | | +--------+ + + + [...] [place] | | | | | | [address] | | | | | | | | +--------+ + + + + | 01/17/ | Office | Vascular Surgery | Bill Arevalo DNP | | | 2019 | Visit | | [address] | | | | | | [place] | | | | | | [address] | | | | | | | | +--------+ + + + + | 05/22/ | Office | Nephrology | Mariana Cortez | | | 2020 | Visit | | [address] | | | | | | [address] [place] | | | | | | [place] [address] | | | | | | [phone] | | | | | | | | +--------+ + + + + documented as of this encounter Procedures + +--------+ + + + | Procedure Name | Priori | Date/Time | Associated Diagnosis | Comments | | | ty | | | | + +--------+ + + + | EXTERNAL LAB: LEVI | Routin | 03/27/2017 | | Results for this | | | e | | | procedure are in the | | | | | | results section. | + +--------+ + + + | EXTERNAL LAB: | Routin | 03/27/2017 | | Results for this | | GLUCOSE | e | | | procedure are in the | | | | | | results section. | + +--------+ + + + | EXTERNAL LAB: ALT | Routin | 03/27/2017 | | Results for this | | | e | | | procedure are in the | | | | | | results section. | + +--------+ + + + | EXTERNAL LAB: AST | Routin | 03/27/2017 | | Results for this | | | e | | | procedure are in the | | | | | | results section. | + +--------+ + + + | EXTERNAL LAB: | Routin | 03/27/2017 | | Results for this | | ALKALINE PHOSPHATASE | e | | | procedure are in the | | | | | | results section. | + +--------+ + + + | EXTERNAL LAB: | Routin | 03/27/2017 | | Results for this | | BILIRUBIN, TOTAL | e | | | procedure are in the | | | | | | results section. | + +--------+ + + + | EXTERNAL LAB: | Routin | 03/27/2017 | | Results for this | | ALBUMIN | e | | | procedure are in the | | | | | | results section. | + +--------+ + + + | EXTERNAL LAB: | Routin | 03/27/2017 | | Results for this | | PROTEIN, TOTAL | e | | | procedure are in the | | | | | | results section. | + +--------+ + + + | EXTERNAL LAB: | Routin | 03/27/2017 | | Results for this | | CALCIUM | e | | | procedure are in the | | | | | | results section. | + +--------+ + + + | EXTERNAL LAB: CARBON | Routin | 03/27/2017 | | Results for this | | DIOXIDE | e | | | procedure are in the | | | | | | results section. | + +--------+ + + + | EXTERNAL LAB: | Routin | 03/27/2017 | | Results for this | | CHLORIDE | e | | | procedure are in the | | | | | | results section. | + +--------+ + + + | EXTERNAL LAB: | Routin | 03/27/2017 | | Results for this | | POTASSIUM | e | | | procedure are in the | | | | | | results section. | + +--------+ + + + | EXTERNAL LAB: SODIUM | Routin | 03/27/2017 | | Results for this | | | e | | | procedure are in the | | | | | | results section. | + +--------+ + + + | EXTERNAL LAB: EGFR | Routin | 03/27/2017 | | Results for this | | | e | | | procedure are in the | | | | | | results section. | + +--------+ + + + | EXTERNAL LAB: | Routin | 03/27/2017 | | Results for this | | CREATININE | e | | | procedure are in the | | | | | | results section. | + +--------+ + + + documented in this encounter Results External Lab: LEVI (03/27/2017) + +--------+ + + + | Component | Value | Ref Range | Performed | Pathologist | | | | | At | Signature | + +--------+ + + + | BUN, | 53 (A) | 6 - 23 | EXTERNAL | | | External | | | LAB | | + +--------+ + + + + +---------+ + + | Performing | Address | City/State/Zipcode | Phone Number | | Organization | | | | + +---------+ + + | EXTERNAL LAB | | | | + +---------+ + + External Lab: Glucose (03/27/2017) + +---------+ + + + | Component | Value | Ref Range | Performed | Pathologist | | | | | At | Signature | + +---------+ + + + | Glucose, | 222 (A) | 70 - 100 | EXTERNAL | | | External | | | LAB | | + +---------+ + + + + +---------+ + + | Performing | Address | City/State/Zipcode | Phone Number | | Organization | | | | + +---------+ + + | EXTERNAL LAB | | | | + +---------+ + + External Lab: ALT (03/27/2017) + +-------+ + + + | Component | Value | Ref Range | Performed | Pathologist | | | | | At | Signature | + +-------+ + + + | ALT, | 6 | 0 - 33 | EXTERNAL | | | External | | | LAB | | + +-------+ + + + + +---------+ + + | Performing | Address | City/State/Zipcode | Phone Number | | Organization | | | | + +---------+ + + | EXTERNAL LAB | | | | + +---------+ + + External Lab: AST (03/27/2017) + +-------+ + + + | Component | Value | Ref Range | Performed | Pathologist | | | | | At | Signature | + +-------+ + + + | AST, | 8 | 0 - 32 | EXTERNAL | | | External | | | LAB | | + +-------+ + + + + +---------+ + + | Performing | Address | City/State/Zipcode | Phone Number | | Organization | | | | + +---------+ + + | EXTERNAL LAB | | | | + +---------+ + + External Lab: Alkaline Phosphatase (03/27/2017) + +-------+ + + + | Component | Value | Ref Range | Performed | Pathologist | | | | | At | Signature | + +-------+ + + + | ALP, | 97 | 35 - 104 | EXTERNAL | | | External | | | LAB | | + +-------+ + + + + +---------+ + + | Performing | Address | City/State/Zipcode | Phone Number | | Organization | | | | + +---------+ + + | EXTERNAL LAB | | | | + +---------+ + + External Lab: Bilirubin, Total (03/27/2017) + +-------+ + + + | Component | Value | Ref Range | Performed | Pathologist | | | | | At | Signature | + +-------+ + + + | Bilirubin, | 0.2 | 0.1 - 1.2 | EXTERNAL | | | [...] + +---------+ + + External Lab: Albumin (03/27/2017) + +---------+ + + + | Component | Value | Ref Range | Performed | Pathologist | | | | | At | Signature | + +---------+ + + + | Albumin, | 3.0 (A) | 3.5 - 5.2 | EXTERNAL | | | External | | | LAB | | + +---------+ + + + + +---------+ + + | Performing | Address | City/State/Zipcode | Phone Number | | Organization | | | | + +---------+ + + | EXTERNAL LAB | | | | + +---------+ + + External Lab: Protein, Total (03/27/2017) + +-------+ + + + | Component | Value | Ref Range | Performed | Pathologist | | | | | At | Signature | + +-------+ + + + | Protein, | 7.0 | 6 - 8 | EXTERNAL | [...] + +---------+ + + External Lab: Calcium (03/27/2017) + +-------+ + + + | Component | Value | Ref Range | Performed | Pathologist | | | | | At | Signature | + +-------+ + + + | Calcium, | 9.2 | 8.4 - 10.2 | EXTERNAL | | | External | | | LAB | | + +-------+ + + + + +---------+ + + | Performing | Address | City/State/Zipcode | Phone Number | | Organization | | | | + +---------+ + + | EXTERNAL LAB | | | | + +---------+ + + External Lab: Carbon Dioxide (03/27/2017) + +-------+ + + + | Component | Value | Ref Range | Performed | Pathologist | | | | | At | Signature | + +-------+ + + + | Carbon | 27 | 23 - 32 | EXTERNAL | | | [...] + +---------+ + + External Lab: Chloride (03/27/2017) + +--------+ + + + | Component | Value | Ref Range | Performed | Pathologist | | | | | At | Signature | + +--------+ + + + | Chloride, | 97 (A) | 100 - 110 | EXTERNAL | | | External | | | LAB | | + +--------+ + + + + +---------+ + + | Performing | Address | City/State/Zipcode | Phone Number | | Organization | | | | + +---------+ + + | EXTERNAL LAB | | | | + +---------+ + + External Lab: Potassium (03/27/2017) + +---------+ + + + | Component | Value | Ref Range | Performed | Pathologist | | | | | At | Signature | + +---------+ + + + | Potassium, | 5.4 (A) | 3.5 - 5.1 | EXTERNAL | | | External | | | LAB | | + +---------+ + + + + +---------+ + + | Performing | Address | City/State/Zipcode | Phone Number | | Organization | | | | + +---------+ + + | EXTERNAL LAB | | | | + +---------+ + + External Lab: Sodium (03/27/2017) + +-------+ + + + | Component | Value | Ref Range | Performed | Pathologist | | | | | At | Signature | + +-------+ + + + | Sodium, | 136 | 135 - 145 | EXTERNAL | | | External | | | LAB | | + +-------+ + + + + +---------+ + + | Performing | Address | City/State/Zipcode | Phone Number | | Organization | | | | + +---------+ + + | EXTERNAL LAB | | | | + +---------+ + + External Lab: eGFR (03/27/2017) + +--------+ + + + | Component | Value | Ref Range | Performed | Pathologist | | | | | At | Signature | + +--------+ + + + | eGFR, | 27 (A) | 60 | EXTERNAL | | [...] + +---------+ + + External Lab: Creatinine (03/27/2017) + + + + + + | Component | Value | Ref Range | Performed | Pathologist | | | | | At | Signature | + + + + + + | Creatinine, | 1.99 (A) | 0.6 - 1.33 | EXTERNAL | | | External | [...]
--- OUTSIDE RECORDS SUMMARY | ~2019-11-09 | XMS | Encounter Summary ---
Demographics + + + | Address | [address] | | | [place] [address] | + + + | Home Phone [...] Author + + + | Author | [facility] | | | and [place] | + + + | Organization | [facility] | | [...] Team Providers + +------+ + | Care Cia Agent Name | Role | Phone | [...] | | | | severity, | [place] [address] | [address] Phone: | | | | | uncomplicate | Phone: | [phone] | | | | | d | [phone] | Fax: | | | | | Non-seasonal | Fax: | [phone] | | | | | allergic | [phone] | | | | | | rhinitis [...] | +--------+ + + + + | 06/11/ | Clinical | [facility] [place] | Henok Luther MD | Non-seasonal | | 2017 | Support | OTOLARYNGOLOGY [address] | allergic rhinitis | | | | [address] | [address] [place] | due to pollen | | | | [place], [place] | [address] | (Primary Dx); | | | | [address] | | Allergic rhinitis | | | | [phone] | | due to animal (cat) | [...] encounter Progress Notes Narda Lay RN - 06/11/2016 4:10 PM PDTFormatting of this note might be different fr om the original. Patient presents with epi-pen & inhaler. No active wheezing or cough associated with asthma today. Denies delayed reaction from previous allergy injection. No fever or allergy related rash. No recent heavy exposure to allergens. No plans for strenuous exercise immediately be fore or after injection today. Mixed immunotherapy treatment vial for patient on 06/09/16. TREATMENT SET Lowella Sapna Forte TREES, DUST, EPIDERMAL: 87 06/11/2016 Allergen Extract Amount/mL Dilution Lot # Expiration Date [place] Mix [place] 0.2 C 055804 12/31/18 Sugar Maple [place] 0.2 C 099648 03/18/19 [place] 0.2 C 318065 10/22/18 Spring Birch [place] 0.2 C 501294 03/18/19 Juniper 0.2 C 148838 03/30/19 Black [place] 0.2 C 227598 09/18/18 [place] 0.2 C 160826 03/18/19 Mites, Farinae 0.1 C 751202 09/23/17 Mites, Ptero. 0.1 C 409077 02/17/18 Cat Hair 0.1 C 908814 06/30/18 Dog Epi. Horse Epi Total Allergens : 1.7 ml. Saline: 0.8 ml. Total Volume: 2.5 ml. Mixed immunotherapy treatment vial for patient on 06/09/16. TREATMENT SET July Forte Molds, Insects & Feathers: 88 06/11/2016 Allergen Extract Amount/ml Dilution Lot # Expiration Date Alternaria Aspergillus Cladosporium Penicillium Bipolaris [place]. 0.1 C 557645 10/23/18 Pullulans 0.1 C 175036 12/31/18 Mucor 0.1 C 971905 09/18/18 Phoma Rhodotorula 0.1 C 878805 10/22/18 Fusarium Paecilomyces Grain Smut 0.1 C 376319 12/31/18 Grass Smut 0.1 C 910987 09/18/18 Am. Cockroach 0.1 C 237801 09/18/18 Mixed Feathers 0.1 C 459700 10/22/18 Total Allergens : 0.8 ml. Saline: 1.7 Total Volume : 2.5 ml. P DTdocumented in this encounter Plan of Treatment +--------+ + + + + | Date | Type | Specialty | Care Team | Description | +--------+ + + + + | 01/17/ | Appointment | Radiology | Bill Arevalo DNP | | | 2019 | | | [address] | | | | | | [place] | | | | | | [address] | | | | | | | | +--------+ + + + + | 01/17/ | Office | Vascular Surgery | Bill Arevalo DNP | | | 2019 | Visit | | [address] | | | | | | [place] | | | | | | [address] | | | | | | | | +--------+ + + + + | 05/22/ | Office | Nephrology | Mariana Cortez, | | | 2020 | Visit | | [address] | | | | | | [address] [place] | | | | | | [place] [address] | | | | | | [phone] | | | | | | | [...]
--- OUTSIDE RECORDS SUMMARY | ~2019-11-09 | XMS | Encounter Summary ---
Demographics + + + | Address | [address] | | | [place] [address] | + + + | Home Phone | | + + + | Preferred Language | Unknown | + + + | Marital Status | Single | + + + | Congregational Affiliation | Unknown | + + + | Race | or | + + + | Ethnic Group | Not or | + + + Author + + + | Author | [facility] | | | and [place] | + + + | Organization | [facility] | | [...] Team Providers + +------+ + | Care Compliance Auditor Name | Role | Phone | + [...] | | | | severity, | [place] [address] | [address] Phone: | | | | | uncomplicate | Phone: | [phone] | | | | | d | [phone] | Fax: | | | | | Non-seasonal | Fax: | [phone] | | | | | allergic | [phone] | | | | | | rhinitis [...] | +--------+ + + + + | 08/07/ | Clinical | [facility] [place] | Henok Luther MD | Allergic rhinitis | | 2017 | Support | OTOLARYNGOLOGY [address] | [address] | due to dust mite | | | | [address] | [place] | (Primary Dx); | | | | [place] | [address] | Uncomplicated | | | | [address] | | asthma, unspecified | | | | [phone] | | asthma severity | +--------+ + [...] encounter Progress Notes Modesta Benitez RN - 08/07/2016 4:15 PM PDTFormatting of this note might be [...] Mixed immunotherapy treatment vial for patient on 08/06/16. TREATMENT SET [place] Weeds & Grass: 86 08/07/2016 Allergen Extract Amount/ml Dilution Lot # Expiration Date Ragweed Mix Pigweed 0.2 C [id number] 07/20/19 Kochia 0.2 C 305298 06/11/19 Humphrey's Quarter 0.2 C 144379 06/01/19 Luther Elder 0.2 C 216098 03/10/19 [place]ander Plantain 0.2 C 447433 03/31/19 False Ragweed 0.2 C 336250 03/18/19 Mongolian Thistle 0.2 C 234482 03/18/19 Sagebrush 0.2 C 692826 06/11/19 Sheep [place] Dandelion 0.2 C 981890 07/21/19 Atriplex Mix 0.2 C 536305 03/18/19 #7 Grass Mix 0.2 C 368235 12/09/17 Bermuda Grass 0.2 C [id number] 09/28/19 Sameer Grass 0.2 C 771025 03/18/19 [place] 0.2 C 5661978 02/05/19 Total Allergens: 2.8 ml. Saline: 0.2 ml. Total Volume: 3.0 ml. documented in this encounter Plan of [...] [place] | | | | | | [address] | | | | | | | | +--------+ + + + + | 01/17/ | Office | Vascular Surgery | Bill Arevalo DNP | | | 2019 | Visit | | [address] | | | | | | [place] | | | | | | [address] | | | | | | | | +--------+ + + + + | 05/22/ | Office | Nephrology | Mariana Cortez, | | | 2020 | Visit | | [address] | | | | | | [address] [place] | | | | | | [place] [address] | | | | | | [phone] | | | | | | | | +--------+ + + + + +-------+ +--------+ + + | Name | Type | Priori | Associated Diagnoses | Order Schedule | | | | ty | | | +-------+ +--------+ + + | Vials | Procedures | Routin | Allergic rhinitis | Ordered: 08/07/2016 | | | | e | due to dust mite | | | | | | Uncomplicated | | | | | | asthma, unspecified | | | | | | asthma severity | | +-------+ +--------+ + + documented as of this encounter Visit Diagnoses + + | Diagnosis | + + | Allergic rhinitis due to dust mite - Primary | + + | Uncomplicated asthma, unspecified asthma severity | + + documented in this encounter"
--- OUTSIDE RECORDS SUMMARY | ~2019-11-09 | XMS | Encounter Summary ---
Demographics + + + | Address | [address] | | | [place] [address] | + + + | Home Phone [...] Team Providers + +------+ + | Care Puppy Walker Name | Role | Phone | + +------+ + PCP | Unavailable | + +------+ + Encounter Details +--------+ + + + + | Date | Type | Department | Care Team | Description | +--------+ + + + + | 11/08/ | Abstract | [facility] [place] | Mariana Cortez W, | | | 2012 | | NEPHROLOGY [address] | MD [address] | | | | | [address] | [address] [place] | | | | | [place], [place] | [place] [address] | | | | | [address] | [phone] | | | | | [phone] | | | +--------+ + + + [...] [place] | | | | | | [address] | | | | | | | | +--------+ + + + + | 01/17/ | Office | Vascular Surgery | Bill Arevalo DNP | | | 2019 | Visit | | [address] | | | | | | [place] | | | | | | [address] | | | | | | | | +--------+ + + + + | 05/22/ | Office | Nephrology | Mariana Cortez W, | | | 2020 | Visit | | [address] | | | | | | [address] [place] | | | | | | [place] [address] | | | | | | [phone] | | | | | | | | +--------+ + + + + documented as of this encounter Procedures + +--------+ + + + | Procedure Name | Priori | Date/Time | Associated Diagnosis | Comments | | | ty | | | | + +--------+ + + + | EXTERNAL LAB: EGFR | Routin | 11/04/2012 | | Results for this | | | e | | | procedure are in the | | | | | | results section. | + +--------+ + + + | EXTERNAL LAB: | Routin | 11/04/2012 | | Results for this | | CREATININE | e | | | procedure are in the | | | | | | results section. | + +--------+ + + + | RENAL FUNCTION PANEL | Routin | 11/04/2012 | | Results for this | | | e | | | procedure are in the | | | | | | results section. | + +--------+ + + + documented in this encounter Results Renal Function Panel (11/04/2012) + +---------+ + + + | Component | Value | Ref Range | Performed | Pathologist | | | | | At | Signature | + +---------+ + + + | Na | 137 | mmol/L | EXTERNAL | | | | | | LAB | | + +---------+ + + + | K | 4.7 | mmol/L | EXTERNAL | | | | | | LAB | | + +---------+ + + + | Cl | 108 | mmol/L | EXTERNAL | | | | | | LAB | | + +---------+ + + + | CO2 | 22 | mmol/L | EXTERNAL | | | | | | LAB | | + +---------+ + + + | BUN | 25 | mg/dL | EXTERNAL | | | | | | LAB | | + +---------+ + + + | Glucose | 119 | mg/dL | EXTERNAL | | | | | | LAB | | + +---------+ + + + | Calcium | 8.6 | mg/dL | EXTERNAL | | | | | | LAB | | + +---------+ + + + | Phosphorus | 3.8 | 2.3 - 4.8 mg/dL | EXTERNAL | | | | | | LAB | | + +---------+ + + + | Albumin | 3.4 (A) | 3.5 - 5.0 g/dL | EXTERNAL [...] + +---------+ + + External Lab: eGFR (11/04/2012) + +-------+ + + + | Component | Value | Ref Range | Performed | Pathologist | | | | | At | Signature | + +-------+ + + + | eGFR, | >60 | 60 | EXTERNAL | | | External | | | LAB | | + +-------+ + + + | eGFR, | | | EXTERNAL | | | | | | LAB | | | [place], | | | | | | External [...] + +---------+ + + External Lab: Creatinine (11/04/2012) + +-------+ + + + | Component | Value | Ref Range | Performed | Pathologist | | | | | At | Signature | + +-------+ + + + | Creatinine, | 0.8 | 0.6 - 1.3 | EXTERNAL | [...]
--- OUTSIDE RECORDS SUMMARY | ~2019-11-09 | XMS | Encounter Summary ---
Demographics + + + | Address | [address] | | | [place] [address] | + + + | Home Phone | | + + + | Preferred Language | Unknown | + + + | Marital Status | Single | + + + | Alevism Affiliation | Unknown | + + + [...] Providers + +------+ + | Care Inspector Conveyor Line Name | Role | Phone | + [...] | Asthmatic | Henok Calix MD | [address] | | | Required | | bronchitis, | [address] | | | | | unspecified | [address] | [address] [place] | | | | | asthma | [place], | [place], [place] | | | | | severity, | [place] [address] | [address] Phone: | | | | | uncomplicate | Phone: | [phone] | | | | | d | [phone] | Fax: | | | | | Non-seasonal | Fax: | [phone] | | | | | allergic | [phone] | | | | | | rhinitis [...] | +--------+ + + + + | 04/09/ | Clinical | [facility] [place] | Henok Luther MD | Non-seasonal | | 2017 | Support | OTOLARYNGOLOGY [address] | [address] | allergic rhinitis | | | | [address] | [address] [place] | due to pollen | | | | [place], [place] | [address] | (Primary Dx); | | | | [address] | | Allergic rhinitis | | | | [phone] | | due to animal (cat) | [...] encounter Progress Notes Modesta Benitez RN - 04/09/2016 4:10 PM PSTPatient presents with epi-pen & inhaler . No active wheezing or cough associated with asthma today. Denies delayed reaction from pre vious allergy injection. No fever or allergy related rash. No recent heavy exposure to aller gens. No plans for strenuous exercise immediately before or after injection today.Electronic ally signed by Modesta Benitez RN at 04/09/2016 4:41 PM PSTdocumented in this encoun ter Plan of Treatment +--------+ + + + + | Date | Type | Specialty | Care Team | Description | +--------+ + + + + | 01/17/ | Appointment | Radiology | Bill Arevalo DNP | | | 2019 | | | [address] | | | | | | [place] | | | | | | [address] | | | | | | | | +--------+ + + + + | 01/17/ | Office | Vascular Surgery | Bill Arevalo DNP | | 2019 | Visit | | [address] | | | | | | [place] | | | | | | [address] | | | | | | | | +--------+ + + + + | 05/22/ | Office | Nephrology | Dana Mariana Hua, | | | 2020 | Visit | | [address] | | | | | | [address] [place] | | | | | | [place] [address] | | | | | | [phone] | | | | | | | [...]
--- OUTSIDE RECORDS SUMMARY | ~2019-11-09 | XMS | Encounter Summary ---
Demographics + + + | Address | [address] | | | [place] [address] | + + + | Home Phone [...] Author + + + | Author | [facility] | | | and [place] | + + + | Organization | [facility] | | | [...] Team Providers + +------+ + | Care Chemistry Lecturer Name | Role | Phone | + +------+ + PCP | Unavailable | + +------+ + Encounter Details +--------+ + + + + | Date | Type | Department | Care Team | Description | +--------+ + + + + | 10/28/ | Abstract | [facility] [place] | Mariana Cortez W, | | | 2012 | | NEPHROLOGY [address] | MD [address] | | | | | [address] | [address] [place] | | | | | [place], [place] | [place] [address] | | | | | [address] | [phone] | | | | | [phone] | | | +--------+ + + + [...] [place] | | | | | | [address] | | | | | | | | +--------+ + + + + | 01/17/ | Office | Vascular Surgery | Bill Arevalo DNP | | | 2019 | Visit | | [address] | | | | | | [place] | | | | | | [address] | | | | | | | | +--------+ + + + + | 05/22/ | Office | Nephrology | Mariana Cortez W, | | | 2020 | Visit | | [address] | | | | | | [address] [place] | | | | | | [place] [address] | | | | | | [phone] | | | | | | | | +--------+ + + + + documented as of this encounter Procedures + +--------+ + + + | Procedure Name | Priori | Date/Time | Associated Diagnosis | Comments | | | ty | | | | + +--------+ + + + | EXTERNAL LAB: AST | Routin | 10/27/2012 | | Results for this | | | e | | | procedure are in the | | | | | | results section. | + +--------+ + + + | EXTERNAL LAB: ALT | Routin | 10/27/2012 | | Results for this | | | e | | | procedure are in the | | | | | | results section. | + +--------+ + + + | EXTERNAL LAB: EGFR | Routin | 10/27/2012 | | Results for this | | | e | | | procedure are in the | | | | | | results section. | + +--------+ + + + | EXTERNAL LAB: | Routin | 10/27/2012 | | Results for this | | CREATININE | e | | | procedure are in the | | | | | | results section. | + +--------+ + + + | CMP14+LP+CBC/D/PLT+T | Routin | 10/27/2012 | | Results for this | | SH+UA/M (NON ORD) | e | | | procedure are in the | | | | | | results section. | + +--------+ + + + documented in this encounter Results CMP14+LP+CBC/D/Plt+TSH+UA/M (10/27/2012) + +---------+ + + + | Component | Value | Ref Range | Performed | Pathologist | | | | | At | Signature | + +---------+ + + + | Na | 135 | mmol/L | | | + +---------+ + + + | K | 5.5 | mmol/L | | | + +---------+ + + + | Cl | 106 | mmol/L | | | + +---------+ + + + | CO2 | 22 | mmol/L | | | + +---------+ + + + | BUN | 25 | mg/dL | | | + +---------+ + + + | Glucose | 149 | mg/dL | | | + +---------+ + + + | Calcium | 8.9 | mg/dL | | | + +---------+ + + + | Bilirubin | 0.2 | 0.1 - 1.5 mg/dL | | | | Total | | | | | + +---------+ + + + | Alkaline | 76 | 35 - 115 U/L | | | | Phosphatase | | | | | + +---------+ + + + | Albumin | 3.4 (A) | 3.5 - 5.0 g/dL | | | + +---------+ + + + + + | Specimen | + + | | + + External Lab: AST (10/27/2012) + +-------+ + + + | Component | Value | Ref Range | Performed | Pathologist | | | | | At | Signature | + +-------+ + + + | AST, | 9 | | EXTERNAL | | | External | | | LAB | | + +-------+ + + + + + | Specimen | + + | Blood specimen | | (specimen) | + + + + | Resulting Agency Comment | + + | [facility] | + + + +---------+ + + | Performing | Address | City/State/Zipcode | Phone Number | | Organization | | | | + +---------+ + + | EXTERNAL LAB | | | | + +---------+ + + External Lab: ALT (10/27/2012) + +-------+ + + + | Component | Value | Ref Range | Performed | Pathologist | | | | | At | Signature | + +-------+ + + + | ALT, | 10 | | EXTERNAL | | | External | | | LAB | | + +-------+ + + + + + | Specimen | + + | Blood specimen | | (specimen) | + + + + | Resulting Agency Comment | + + | [facility] | + + + +---------+ + + | Performing | Address | City/State/Zipcode | Phone Number | | Organization | | | | + +---------+ + + | EXTERNAL LAB | | | | + +---------+ + + External Lab: eGFR (10/27/2012) + +-------+ + + + | Component | Value | Ref Range | Performed | Pathologist | | | | | At | Signature | + +-------+ + + + | eGFR, | >60 | | EXTERNAL | | | External | | | LAB | | + +-------+ + + + | eGFR, | | | EXTERNAL | | | | | | LAB | | | [place], | | | | | | External | | | | | + +-------+ + + + + + | Specimen | + + | Blood specimen | | (specimen) | + + + + | Resulting Agency Comment | + + | [facility] | + + + +---------+ + + | Performing | Address | City/State/Zipcode | Phone Number | | Organization | | | | + +---------+ + + | EXTERNAL LAB | | | | + +---------+ + + External Lab: Creatinine (10/27/2012) + +-------+ + + + | Component | Value | Ref Range | Performed | Pathologist | | | | | At | Signature | + +-------+ + + + | Creatinine, | 0.91 | | EXTERNAL | | | External | | | LAB | | + +-------+ + + + + + | Specimen | + + | Blood specimen | | (specimen) | + + + + | Resulting Agency Comment | + + | [facility] | + + + +---------+ + + | Performing | Address | City/State/Zipcode | Phone Number | | Organization | | | | + +---------+ + + | EXTERNAL LAB | | | | + +---------+ + + documented in this encounter Visit Diagnoses Not on filedocumented in this encounter"
--- OUTSIDE RECORDS SUMMARY | ~2019-11-09 | XMS | Encounter Summary ---
Demographics + + + | Address | [address] | | | [place] [address] | + + + | Home Phone [...] Author + + + | Author | [facility] | | | and [place] | + + + | Organization | [facility] | | | and [...] Team Providers + +------+ + | Care Dock Loader Name | Role | Phone | + [...] | | | hair and | [place] [address] | [place], [place] | | | | | dander | Phone: | [phone] | | | | | Non-seasonal | [phone] | Phone: | | | | | allergic | Fax: | [phone] | | | | | rhinitis due | [phone] | Fax: | | | | | to pollen | | [phone] | | | | | Extrinsic | [...] | | | | | | | HI | | | | | | | IMMUNOTHERAP | | | | | | | Y, ONE | | | | | | | INJECTION | | | | | | | HI | | | | | | | IMMUNOTHERAP | | | | | | | Y, 2+ | | | | | | | INJECTIONS | | | | | | | HI PROFES | | | | | | | SVC,IMMUNOTH | | | | | | | ER,SINGLE/MU | | | | | | | LT AGS | | | +--------+ + + + + + Encounter Details +--------+ + + + + | Date | Type | Department | Care Team | Description | +--------+ + + + + | 01/08/ | Clinical | [facility] [place] | Henok Luther MD | Extrinsic asthma, | | 2017 | Support | OTOLARYNGOLOGY [address] | [address] | unspecified asthma | | | | [address] | [address] [place] | severity, | | | | [place] | [address] | unspecified whether | | | | [address] | | complicated, | | | | [phone] | | unspecified whether | | | [...] encounter Progress Notes Domenica Meredith RN - 01/08/2017 3:45 PM PSTFormatting of this note might be different fro m the original. Patient presents with epi-pen. Denies delayed reaction from previous allergy injection. No fever or allergy related rash. No recent heavy exposure to allergens. No plans for strenuous exercise before or after injection today. Mixed immunotherapy treatment vial for patient on 01/05/17. TREATMENT SET Kelechiella Sapna [place] Weeds & Grass: 86 01/08/2017 Allergen Extract Amount/ml Dilution Lot # Expiration Date Ragweed Mix Pigweed 0.2 C 342109 10/22/19 Kochia 0.2 C 345510 09/10/19 Humphrey's Quarter 0.2 C 865471 09/10/19 Luther Elder 0.2 C 314072 08/04/19 [place] Plantain 0.2 C 610954 06/11/19 False Ragweed 0.2 C 953302 08/17/19 Ecuadorean Thistle 0.2 C 053779 04/29/19 Sagebrush 0.2 C 953652 09/10/19 Sheep [employer] Dandelion 0.2 C 926897 10/08/19 Atriplex Mix 0.2 C 537661 06/03/19 #7 Grass Mix 0.2 C 614805 06/02/18 Bermuda Grass 0.2 C [id number] 10/30/19 Sameer Grass 0.2 C 568424 06/11/19 [place] 0.2 C 795619 10/08/19 Total Allergens: 2.8 ml. Saline: 0.2 ml. [...] [place] | | | | | | [address] | | | | | | | | +--------+ + + + + | 01/17/ | Office | Vascular Surgery | Bill Arevalo DNP | | | 2019 | Visit | | [address] | | | | | | [place] | | | | | | [address] | | | | | | | | +--------+ + + + + | 05/22/ | Office | Nephrology | Mariana Cortez W, | | | 2020 | Visit | | [address] | | | | | | [address] [place] | | | | | | [place] [address] | | | | | | [phone] | | | | | | | | +--------+ + + + + +-------+ +--------+ + + | Name | Type | Priori | Associated Diagnoses | Order Schedule | | | | ty | | | +-------+ +--------+ + + | Vials | Procedures | Routin | Extrinsic Asthma, | Ordered: 01/08/2017 | | | | e | Unspecified Asthma | | | | | | Severity, | | | | | | Unspecified Whether | | | | | | Complicated, | | | | | | Unspecified Whether | | | | | | Persistent Allergic | | | | | | rhinitis due to | | | | | | dust mite Allergic | | | | | | Rhinitis Due To | | | | | | Animal Hair And | | | | | | Dander, Unspecified | | | | | | Chronicity | | | | | | Non-Seasonal | | | | | | Allergic Rhinitis | | | | | | Due To Pollen, | | | | | | Unspecified | | | | | | Chronicity | | +-------+ +--------+ + + documented [...]
--- OUTSIDE RECORDS SUMMARY | ~2019-11-09 | XMS | Encounter Summary ---
Demographics + + + | Address | [address] | | | [place] [address] | + + + | Home Phone | | + + + | Preferred Language | Unknown | + + + | Marital Status | Single | + + + | Moravian Affiliation | Unknown | + + + [...] Team Providers + +------+ + | Care Rn Call Center Name | Role | Phone | + +------+ + | Mehrdad Avalos MD | PCP | | + +------+ + Reason for Visit + +--------+ + | Reason | Onset | Comments | | | Date | | + +--------+ + | Letter for | 10/09/ | | | School/Work | 2020 | | + +--------+ + Encounter Details +--------+ + + + + | Date | Type | Department | Care Team | Description | +--------+ + + + + | 10/09/ | Telephone | [facility] | Avel Upton MD | Letter for | | 2019 | | VASCULAR SURGERY | [address] | School/Work | | | | [address] | [address], [place] | | | | | [place], [place] | [address] | | | | | [address] | [phone] | | | | | [phone] | | | +--------+ + + + [...] this encounter Miscellaneous Notes Telephone Encounter - Tiny Shankar Pig Iron Loader - 10/10/2019 11:13 AM PDTReturn to work letter faxed, pt notified. elephone Encounter - Dalia Toledo - 10/10/2019 11:02 AM PDTLou, is calling regarding Letter for School/Work and would like a call back. Additional Call Details: Requesting return to work letter to be faxed to [phone] If this is a symptom based call, was patient offered triage? Not Applicable If this is a symptom based call and you were unable to immediately transfer the call to a marcos sharma corsage maker was caller made aware that if at any time she feels it is an emergency they sh ould call 911 or go to the nearest emergency room? not applicable documented in this encounter Plan of Treatment +--------+ + + + + | Date | Type | Specialty | Care Team | Description | +--------+ + + + + | 01/17/ | Appointment | Radiology | Bill Arevalo DNP | | | 2019 | | | [address] | | | | | | [place] | | | | | | [address] | | | | | | | | +--------+ + + + + | 01/17/ | Office | Vascular Surgery | Bill Arevalo DNP | | | 2019 | Visit | | [address] | | | | | | [place] | | | | | | [address] | | | | | | | | +--------+ + + + + | 05/22/ | Office | Nephrology | Mariana Cortez, | | | 2020 | Visit | | MD [address] | | | | | | [address] [place] | | | | | | [place] [address] | | | | | | [phone] | | | | | | | | +--------+ + + + + documented as of this encounter Visit Diagnoses Not on filedocumented in this encounter"
--- OUTSIDE RECORDS SUMMARY | ~2019-11-09 | XMS | Encounter Summary ---
Demographics + + + | Address | [address] | | | [place] [address] | + + + | Home Phone [...] Team Providers + +------+ + | Care Avid Editor Name | Role | Phone | + [...] Closed | | Radiology | Diagnoses | Echaiz | | | | | | | HenryCarmine | | | | | | Osteomyeliti | Delio, | | | | | | s of fifth | MD [address] | | | | | | toe of right | [address] | | | | | | foot (HCC) | [place], [place] | | | | | | Weak pulse | [address] | | | | | | Procedures | Phone: | | | | | | VAS Lower | [phone] | | | | | | Extremity | Fax: | | | | | | Arteries | [phone] | | | | | | Right | | | +--------+--------+ + + + + Reason for Visit Diagnostic/Screening (Routine) +--------+--------+ + + + + | Status | Reason | Specialty | Diagnoses / | Referred By | Referred To | | | | | Procedures | Contact | Contact | +--------+--------+ + + + + | Closed | | Radiology | Diagnoses | Louie | | | | | | | Carmine Henry | | | | | | Osteomyeliti | Delio, | | | | | | s of fifth | [address] | | | | | | toe of right | [address] | | | | | | foot (HCC) | [place] | | | | | | Weak pulse | [address] | | | | | | Procedures | Phone: | | | | | | VAS Lower | [phone] | | | | | | Extremity | Fax: | | | | | | Arteries | [phone] | | | | | | Right | | | +--------+--------+ + + + + Encounter Details +--------+ + + + + | Date | Type | Department | Care Team | Description | +--------+ + + + + | 09/13/ | Hospital | [facility] | Louie Henry, | Osteomyelitis of | | 2020 | Encounter | [facility] | Carmine Kebede MD | fifth toe of right | | | | ULTRASOUND [address] | [address] | foot (HCC); Weak | | | | [address] | [place] [address] | pulse | | | | [place], [place] | [phone] | | | | | [address] | | | | | | [phone] | | | +--------+ + + + [...] + + documented as of this encounter Medications at Time of Discharge [...] + + + +---------+ + + | ascorbic acid | Take 500 mg by mouth | | 0 | | | | (VITAMIN C) 500 mg | Daily. | | | | | | tablet [...] + + | bumetanide (BUMEX) | Take 2 tablets by | 120 | 11 | 07/07/19 | | | 0.5 mg tablet | mouth 2 times daily. | tablet | | 19 | | + + + +---------+ + + | cetirizine | Take 10 mg by mouth | | 0 | | | | (ZYRTEC) 10 mg | Daily as needed for | | | | | | tablet | Allergies. | | | | | + + + +---------+ + + | cholecalciferol | Take 2,000 Units by | | 0 | | | | (VITAMIN D-3) 2000 | mouth Daily. | | | | | | units TABS | | | | | | [...] into | 2 each | 1 | 11/12/ | | | MG/0.3ML | the muscle as needed | | | 18 | | | injectionIndications | for Anaphylaxis | | | | | | : Extrinsic asthma, | (okay to use | | | | | | unspecified asthma | generic). | | | | | | severity, | | | | | | | unspecified whether | | | | | | | complicated, | | | | | | | unspecified whether | | | | | | | persistent, Allergic | | | | | | | rhinitis due to | | | | | | | dust mite, | | | | | | | Non-seasonal | | | | | | | allergic rhinitis | | | | | | | due to pollen, | | | | | | | Allergic rhinitis | | | | | | | due to animal (cat) | | | | | | | (dog) hair and | | | | | | | dander | | | | | | + + + +---------+ + + | ferrous sulfate | Take 325 mg by mouth | | 0 | | | | 325 mg tablet | daily (with | | | | | | | breakfast). | | | | | + + + +---------+ + + | fluticasone | 1 spray by Nasal | | 0 | 09/28/19 | | | (FLONASE) 50 | route [...] + + + +---------+ + + | ipratropium | as needed . | | 0 | | | | (ATROVENT) 0.06% | | | | | | | nasal spray | | | | | | + + + +---------+ + + | Magnesium 400 MG | Take 400 mg by mouth | | 0 | 05/12/19 | | | CAPS | Daily. | | | 19 | | + + + +---------+ + + | metoprolol | Take 25 mg by mouth | | 0 | | | | succinate | Daily. | | | | | | (TOPROL-XL) 25 mg 24 | | | | | | | hr tablet | | | | | | + + + +---------+ + + | rosuvastatin | Take 20 mg by mouth | | 0 | | | | (CRESTOR) 20 mg | nightly. | | | | | | tablet | | | | | | + + + +---------+ + + | SEMAGLUTIDE, 1 | Inject 1 mg under | | 0 | | | | MG/DOSE, SC | the skin Once a | | | | | | | week. | | | | | + + + +---------+ + + | sodium bicarbonate | Take 1 tablet by | 90 | 3 | 05/17/19 | | | 650 mg tablet | mouth Daily. | tablet | | 20 | | + + + +---------+ + + | TechLite Lancets | | | 0 | 09/09/19 | | | MISC | | | | 13 | | + + + +---------+ + + | omeprazole | Take 20 mg by mouth | | 0 | | | | (PRILOSEC) 20 mg | 2 times daily. | | | | 0 | | capsule | | | | | | + + + +---------+ + + documented as of this encounter Plan of Treatment +--------+ + + + + | Date | Type | Specialty | Care Team | Description | +--------+ + + + + | 01/17/ | Appointment | Radiology | Bill Arevalo DNP | | | 2019 | | | [address] | | | | | | [place] | | | | | | [address] | | | | | | | | +--------+ + + + + | 01/17/ | Office | Vascular Surgery | Bill Arevalo DNP | | | 2019 | Visit | | [address] | | | | | | [place] | | | | | | [address] | | | | | | | | +--------+ + + + + | 05/22/ | Office | Nephrology | Mariana Cortez, | | | 2020 | Visit | | [address] | | | | | | [address] [place] | | | | | | [place] [address] | | | | | | [phone] | | | | | | | | +--------+ + + + + documented as of this encounter Procedures + +--------+ + + + | Procedure Name | Priori | Date/Time | Associated Diagnosis | Comments | | | ty | | | | + +--------+ + + + | VAS LOWER EXTREMITY | Routin | 09/14/2019 | Osteomyelitis of | Results for this | | ARTERIES RIGHT | e | 9:04 AM | fifth toe of right | procedure are in the | | | | PDT | foot ([facility]) Weak | results section. | | | | | pulse | | + +--------+ + + + documented in this encounter Results VAS Lower Extremity Arteries Right (09/14/2019 9:04 AM PDT) + + | Specimen | + + | | + + + + + | Impressions | Performed At | + + + | 1. RIGHT LEG: Triphasic inflow and outflow, without hemodynamically | [facility] | | significant stenosis. 2. Appears to be single-vessel runoff via the | | | CORY, with > 50% distal CORY stenosis (113-235 cm/sec). 3. DOG CONTROL OFFICER | | | chronically occluded throughout. 4. Peroneal appears chronically | | | occluded mid to distal. Final Report Signed by: Darleen Phillip, | | | Dank Sign Date/Time: 09/15/2019 7:49 AM | | + + + + + + | Narrative | Performed At | + + + | VAS LOWER EXTREMITY ARTERIES RIGHT CLINICAL INFORMATION: | [facility] | | Weak pedal pulse, chronic foot ulcer COMPARISON: US LOWER | | | EXTREMITY VENOUS DOPPLER BILAT (11/18/2012); PROCEDURE: Duplex | | | and color Doppler evaluation of the arteries of the right lower | | | extremity including spectral analysis. FINDINGS: Vessel, peak | | | systolic velocity in cm/sec, waveform analysis: Right lower | | | extremity: DORMITORY SUPERVISOR prox: 91, triphasic DFA prox: 46, triphasic SFA | | | prox: 104, triphasic SFA mid: 106, triphasic SFA dist: 121, | | | triphasic Pop mid: 94, triphasic CORY prox: 86, triphasic CORY dist: | | | 235, triphasic T DOG CONTROL OFFICER prox: 0, absent DOG CONTROL OFFICER dist: 0, absent Peroneal | | | prox: 33, triphasic Peroneal dist: 0, absent | | + + + + + | Procedure Note | + + | Aniket, [id number] - 09/15/2019 7:52 AM PDT | | VAS LOWER EXTREMITY ARTERIES RIGHT | | | | CLINICAL INFORMATION: | | Weak pedal pulse, chronic foot ulcer | | | | COMPARISON: | | US LOWER EXTREMITY VENOUS DOPPLER BILAT (11/18/2012); | | | | PROCEDURE: | | Duplex and color Doppler evaluation of the arteries of the right lower | | extremity including spectral analysis. | | | | FINDINGS: | | Vessel, peak systolic velocity in cm/sec, waveform analysis: | | | | Right lower extremity: | | DORMITORY SUPERVISOR prox: 91, triphasic | | DFA prox: 46, triphasic | | SFA prox: 104, triphasic | | SFA mid: 106, triphasic | | SFA dist: 121, triphasic | | Pop mid: 94, triphasic | | CORY prox: 86, triphasic | | CORY dist: 235, triphasic | | T DOG CONTROL OFFICER prox: 0, absent | | DOG CONTROL OFFICER dist: 0, absent | | Peroneal prox: 33, triphasic | | Peroneal dist: 0, absent | | | | IMPRESSION: | | 1. RIGHT LEG: Triphasic inflow and outflow, without hemodynamically | | significant stenosis. | | 2. Appears to be single-vessel runoff via the CORY, with > 50% distal | | CORY stenosis (113-235 cm/sec). | | 3. DOG CONTROL OFFICER chronically occluded throughout. | | 4. 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 | | | | | | | | Final Report Signed by: Darleen Phillip Shawn | | Sign Date/Time: 09/15/2019 7:49 AM | + + + +---------+ + + | Performing | Address | City/State/Zipcode | Phone Number | | Organization | | | | + +---------+ + + | [facility] | | | | + +---------+ + + documented in this encounter Visit Diagnoses + + | Diagnosis | + + | Osteomyelitis of fifth toe of right foot (HCC) | + + | Weak pulse Other symptoms involving cardiovascular system | + + documented in this encounter"
--- OUTSIDE RECORDS SUMMARY | ~2019-11-09 | XMS | Encounter Summary ---
Demographics + + + | Address | [address] | | | [place] [address] | + + + | Home Phone | | + + + | Preferred Language | Unknown | + + + | Marital Status | Single | + + + | Latter Day Affiliation | Unknown | + + + | Race | or | + + + | Ethnic Group | Not or | + + + Author + + + | Author | [facility] | | | and [place] | + + + | Organization | [facility] | | [...] Team Providers + +------+ + | Care Webbing Weaver Name | Role | Phone | + +------+ + | Ronel Jacobson PA-C | PCP | | + +------+ + Encounter Details +--------+ + + + + | Date | Type | Department | Care Team | Description | +--------+ + + + + | 02/17/ | Episode | [facility] [place] | Domenica Meredith, | | | 2018 | Changes | OTOLARYNGOLOGY [address] | RN | | | | | [address] | | | | | | [place] | | | | | | [address] | | | | | | [phone] | | | +--------+ + + + [...] [place] | | | | | | [id number] | | | | | | | | +--------+ + + + + | 01/17/ | Office | Vascular Surgery | Bill Arevalo DNP | | | 2019 | Visit | | [address] | | | | | | [place] | | | | | | [address] | | | | | | | | +--------+ + + + + | 05/22/ | Office | Nephrology | Mariana Cortez, | | | 2020 | Visit | | [address] | | | | | | [address] [place] | | | | | | [place] [address] | | | | | | [phone] | | | | | | | | +--------+ + + + + documented as of this encounter Visit Diagnoses Not on filedocumented in this encounter"
--- OUTSIDE RECORDS SUMMARY | ~2019-11-09 | XMS | Encounter Summary ---
Demographics + + + | Address | [address] | | | [place] [address] | + + + | Home Phone [...] + + + | Author | [facility] | | | and [place] | + + + | Organization | [facility] | | | [...] Team Providers + +------+ + | Care Agricultural Produce Packer Name | Role | Phone | + [...] | | | rhinitis due | [place] [address] | [address] Phone: | | | | | to animal | Phone: | [phone] | | | | | (cat) (dog) | [phone] | Fax: | | | | | hair and | Fax: | [phone] | | | | | dander | [phone] | | | | | | Allergic [...] + | 04/15/ | Clinical | [facility] [place] | Henok Luther MD | Allergic rhinitis | | 2016 | Support | OTOLARYNGOLOGY [address] | [address] | due to pollen | | | | [address] | [place] | (Primary Dx); | | | | [place] | [address] | Allergic rhinitis | | | | [address] | | due to animal (cat) | | | | [phone] | | (dog) hair and | | [...] encounter Progress Notes Modesta Benitez RN - 04/16/2015 4:07 PM PSTPatient presents with epi-pen & inhaler . No active wheezing or cough associated with asthma today. Denies delayed reaction from pre vious allergy injection. No fever or allergy related rash. No recent heavy exposure to aller gens. No plans for strenuous exercise immediately before or after injection today.Electronic ally signed by Modesta Benitez RN at 04/16/2015 4:36 PM PSTdocumented in this encoun ter Plan [...] [place] | | | | | | [id number] | | | | | | | | +--------+ + + + + | 05/22/ | Office | Nephrology | Mariana Cortez, | | | 2020 | Visit | | MD Constantine [address] | | | | | | [address] | | | | | | [place] [address] | | | | | | [phone] | | | | | | | [...]
--- OUTSIDE RECORDS SUMMARY | ~2019-11-09 | XMS | Encounter Summary ---
Demographics + + + | Address | [address] | | | [place] [address] | + + + | Home Phone | | + + + | Preferred Language | Unknown | + + + | Marital Status | Single | + + + | Caodaism Affiliation | Unknown | + + + | Race | or | + + + | Ethnic Group | Not or | + + + Author + + + | Author | [facility] | | | and [place] | + + + | Organization | [facility] | | | [...] Team Providers + +------+ + | Care Journalism Intern Name | Role | Phone | + [...] | | | hair and | [place] [address] | [place], [place] | | | | | dander | Phone: | [phone] | | | | | Non-seasonal | [phone] | Phone: | | | | | allergic | Fax: | [phone] | | | | | rhinitis due | [phone] | Fax: | | | | | to pollen | | [phone] | | | | | Extrinsic | [...] | +--------+ + + + + | 12/04/ | Clinical | [facility] [place] | Henok Luther MD | Extrinsic asthma, | | 2017 | Support | OT[address]ARYNGOLOGY [address] | [address] | unspecified asthma | | | | [address] | [place] | severity, | | | | [place] | [address] | unspecified whether | | | | [address] | | complicated, | | | | [phone] | | unspecified whether | | | [...] encounter Progress Notes Domenica Meredith RN - 12/04/2016 4:00 PM PDTPatient presents with epi-pen & inhaler. No ac tive wheezing or cough associated with asthma today. Denies delayed reaction from previous a llergy injection. No fever or allergy related rash. No recent heavy exposure to allergens. N o plans for strenuous exercise immediately before or after injection today.Electronically si gned by Domenica Meredith RN at 12/04/2016 4:32 PM PDTdocumented in this encounter Plan of [...] [place] | | | | | | [address] | | | | | | | | +--------+ + + + + | 05/22/ | Office | Nephrology | Mariana Cortez, | | | 2020 | Visit | | MD [address] | | | | | | [address] [place] | | | | | | [place] [address] | | | | | | [phone] | | | | | | | [...]
--- OUTSIDE RECORDS SUMMARY | ~2019-11-09 | XMS | Encounter Summary ---
Demographics + + + | Address | [address] | | | [place] [address] | + + + | Home Phone | | + + + | Preferred Language | Unknown | + + + | Marital Status | Single | + + + | Anabaptist Affiliation | Unknown | + + + [...] Team Providers + +------+ + | Care Car Servicer Name | Role | Phone | + [...] | | | | Diagnoses | | Mulu, | | | | | GAVE | | MD Iva | | | | | (gastric | | [address] | | | | | antral | | [place], | | | | | vascular | | [place] [address] | | | | | ectasia) | | Phone: | | | | | Procedures | | [phone] | | | | | OK EGD | | Fax: | | | | | TRANSORAL | | [phone] | | | | | BIOPSY | | | | | | | SINGLE/MULTI | | | | | | | PLE [place] | | | | | | | ANESTHESIA | | | | | | | UPPER GI | | | | | | | ENDOSCOPIC | | | | | | | PX NOS | | | +--------+--------+ + + + + Encounter Details +--------+ + + + + | Date | Type | Department | Care Team | Description | +--------+ + + + + | 10/03/ | Hospital | [facility] | Avel Upton MD | GAVE (gastric antral | | 2019 - | Encounter | [facility] | [address] | vascular ectasia); | | | | [address] | [place], [place] | PAD (peripheral | | 10/05/ | | [place], [place] | [address] | artery disease) | | 2019 | | [address] | [phone] | (HCC) | | | | [phone] | | | +--------+ + + + [...] + + + | Blood Pressure | 141/69 | 10/06/2019 11:58 AM | | | | | PDT | | + + + + + | Pulse | 96 | 10/06/2019 11:58 AM | | | | | PDT | | + + + + + | Temperature | 36.8 C (98.3 F) | 10/06/2019 11:58 AM | | | | | PDT | | + + + + + | Respiratory Rate | 20 | 10/06/2019 11:58 AM | | | | | PDT | | + + + + + | Oxygen Saturation | 96% | 10/06/2019 11:58 AM | | | | | PDT | | + + + + + | Inhaled Oxygen | - | - | | | Concentration | | | | + + + + + | Weight | 93.1 kg (205 lb 4 | 10/06/2019 8:00 AM | | | | oz) | PDT | | + + + + + | Height | 160 cm (5' 3") | 10/04/2019 10:39 AM | | | | | PDT | | + + + + + | Body Mass Index | 36.36 | 10/04/2019 10:39 AM | | | | | PDT | | + + + + + documented in this encounter Functional Status + + + [...] + + documented as of this encounter Discharge Summaries Jamie Cunningham PA-C - 10/06/2019 9:37 AM PDTFormatting of this note might be different f rom the original. Physician Discharge Summary Patient ID: July Forte [id number] 49 y.o. 1970 Admit date: 10/04/2019 Discharge date and time: 10/06/2019 Admitting Physician: Avel Upton MD Discharge Physician: Jamie Cunningham PA-C Admission Diagnoses: PAD (peripheral artery disease) ([facility]) [I73.9] GAVE (gastric antral vascular ectasia) [K31.819] Discharge Diagnoses: PAD s/p bypass; osteo of right foot Admission Condition: poor Discharged Condition: stable Indication for Admission: PAD requiring bypass surgery Hospital Course: Pt admitted on 10/04/2019 and underwent open harvest of right great sapheno us vein and right proximal anterior tibial artery to dorsalis pedis artery bypass using RSVG . Post operatively has done well. Pain meds adjusted and pain well controlled. Hemodynamical ly stable and neuro intact. Signals intact. Stable for discharge home. Consults: none Treatments: Surgery: right leg bypass Discharge Exam: Physical Exam CONSTITUTIONAL: Conversant. Well-developed. No acute distress. EYES: Anicteric sclerae. No lid drag. No proptosis. RESPIRATORY: Normal effort. Regular, even, and unlabored rate. CARDIOVASCULAR: Rate regular. ABDOMEN: Soft, non-tender, non-distended. SKIN: [place], warm, and dry without rashes or lesions. EXTREMITIES: ROM not limited. No digital cyanosis. Normal gait. NEUROLOGIC: Cranial nerves II-XII grossly intact. Alert and oriented x 3. PSYCHIATRIC: Appropriate affect, speech, and tone. Judgement and insight intact. VASCULAR: Dopplerable PT and DP intact. Dressings clean and dry. Disposition: home Patient Instructions: Discharge Medications New Medications Details aspirin 81 mg chewable tablet Chew and swallow 1 tablet Daily. Start: October 07, 2019 docusate sodium 100 mg capsule Take 1 capsule by mouth Twice daily as needed for Constipation. aka: COLACE HYDROcodone-acetaminophen 10-325 mg per tablet Take 1 tablet by mouth every 4 hours as needed for Pain. aka: NORCO Unchanged Medications Details albuterol 90 mcg/puff inhaler Inhale 2 puffs into the lungs every 6 hours as needed. Alcohol Swabs 70 % Pads by Does not apply route. ascorbic acid 500 mg tablet Take 500 mg by mouth Daily. aka: VITAMIN C B-D UF III MINI PEN NEEDLES 31G X 5 MM Misc Generic drug: Insulin Pen Needle bumetanide 0.5 mg tablet Take 2 tablets by mouth 2 times daily. aka: BUMEX cetirizine 10 mg tablet Take 10 mg by mouth Daily as needed for Allergies. aka: zyrTEC cholecalciferol 50 mcg (2,000 units) tablet Take 2,000 Units by mouth Daily. aka: VITAMIN D-3 CONTOUR BLOOD GLUCOSE SYSTEM Kimberli by Does not apply route. CONTOUR TEST strip Generic drug: glucose blood test strips 4 strips Daily. cyanocobalamin 500 mcg tablet Take 1,000 mcg by mouth Daily. aka: VITAMIN B-12 EPIPEN 2-IGNACIO 0.3 mg/0.3 mL injection Generic drug: EPINEPHrine auto-injector Inject 0.3 mLs into the muscle as needed for Anaphylaxis (okay to use generic). ferrous sulfate 325 mg tablet Take 325 mg by mouth daily (with breakfast). fluticasone 50 mcg/nasal spray 1 spray by Nasal route Twice daily as needed. aka: FLONASE folic acid 1 mg tablet Take 1 mg by mouth Daily. glyBURIDE 5 mg tablet Take 10 mg by mouth 2 times daily . aka: DIABETA ipratropium 0.06% nasal spray as needed . aka: ATROVENT Magnesium 400 MG Caps Take 400 mg by mouth Daily. metoprolol succinate 25 mg 24 hr tablet Take 25 mg by mouth Daily. aka: TOPROL-XL pantoprazole 40 mg tablet Take 40 mg by mouth every morning (before breakfast). aka: PROTONIX rosuvastatin 20 mg tablet Take 20 mg by mouth nightly. aka: MECHE SEMAGLUTIDE (1 MG/DOSE) SC Inject 1 mg under the skin Once a week. sodium bicarbonate 650 mg tablet Take 1 tablet by mouth Daily. [place]ITE L[place] [facility]: POD 2 from right leg revascularization. Incisions healing well. No signs of infection . Strong signals intact. Pain controlled on current meds. Hemodynamically stable and neuro i ntact. Stable for discharge home today. Will send with ASA, pain meds and colace. Follow up in 2 weeks in clinic with arterial US of right leg. Activity: activity as tolerated and no heavy lifting for 4 weeks Diet: cardiac diet Wound Care: keep wound clean and dry, ice to area for comfort and remove dressings in two d ays Follow-up with Vascular clinic in 2 weeks with US. Signed: Jamie Cunningham PA-C 10/06/2019 9:37 AM PDT documented in this encounter Discharge Instructions Instructions Jamie Cunningham PA-C - 10/06/2019 Discharge Instructions After Peripheral Artery Bypass Surgery You had a procedure known as peripheral artery bypass surgery. Peripheral arteries send blo od to your legs and feet. Over time,your artery forrest may thicken and build up with a fatt y substance (plaque). As plaque builds up in an artery,blood flow can be reduced or even b locked. This can cause peripheral artery disease (PAD). Surgery to go around (bypass) this b lockage is called peripheral artery bypass surgery.A surgeon stitches a special tube (jonas t) into the artery above and below the blockage. This creates a new path for blood flow. Activity Talk with your doctor about what you can and can t do as you recover. Don t drive for at [id number] after your surgery or while you are taking opioid pa in medicine (or if you are still having a lot of leg pain). Expect to start walking soon after surgery. Walking helps reduce swelling and helps your cut (incision)heal. But you will likely have some leg swelling after surgery. Don t stand or sit with your feet down for long. When you sit,raise your feet as hig h as you comfortably can. Home care Check your incision every day for signs of infection such as swelling, redness, warmth, or drainage. Don t bathe or soak in a tub or go swimming until your incisions are well healed (soledad jeronimo at leas 2 weeks). You can shower to keep your incisions clean. Just make sure you dry th em well afterward. Take your medicines exactly as directed. Don t skip doses. Prevent skin pastor by testing the temperature of shower water before you get in. Wear slippers or shoes when walking. Don t go barefoot or wear open-toed shoes. Learn to take your pulse in your leg and your foot. Keep a record of your results. Ask y our doctor or nurse which pulse changes might be a problem. Follow-up See your doctor to have your stitches or alejandro removed 10 to 14 days after your surger y. When to call your healthcare provider Call your provider right away if you have any of the following: Fever of 100.4F ( 38C) or higher, or as advised by your provider Signs of infection (redness, swelling, or warmth at the incision site) Drainage from your incision Changes in color,temperature,feeling,or movement in either foot Increasing pain or numbness inyour foot or leg Leg swelling that doesn't get better overnight Chest pain or trouble breathing [employer] last reviewed this educational content on 11/09/201819994758-0648 The [employer]. [address] [place] [address]. All righ ts reserved. This information is [...] + + + +---------+ + + | aspirin 81 mg | Chew and swallow 1 | 30 | 11 | 10/07/19 | | | chewable tablet | tablet Daily. | tablet | | 20 | [...] | | | | | GLUCOSE SYSTEM) KIMBERLI | | | | | | + [...] + + + +---------+ + + | docusate sodium | Take 1 capsule by | 60 | 0 | 10/06/19 | | | (COLACE) 100 mg | mouth Twice daily | capsule | | 20 | | | capsule | as needed for | | | | | | | Constipation. | | | | | + + + +---------+ + + | EPIPEN 2-IGNACIO 0.3 | Inject 0.3 mLs into | 2 each | 1 | 11/13/19 | | | MG/0.3ML | the muscle [...] + +---------+ + + | | Take 1 tablet by | 40 | 0 | 10/06/19 | | | HYDROcodone-acetamin | mouth every 4 hours | tablet | | 20 | | | ophen (NORCO) 10-325 | as needed for Pain. | | [...] + + + +---------+ + + | pantoprazole | Take 40 mg by mouth | | 0 | | | | (PROTONIX) 40 mg | every morning | | | | | | tablet | (before breakfast). | | | | | + [...] documented as of this encounter Progress Notes Piper Phelps RN - 10/06/2019 6:33 AM PDTPt up ambulating to bathroom with assist, void ing spontaneously. Pulses palpable to Rt foot. Hydrocodone given x 3 as ordered PRN for pa in. Pt remains on RA, VSS. All needs met at this time. End of shift chart check complete Jamie Menchaca PA-C - 10/05/2019 9:[address] [facility] Service: Vascular Surgery Progress Note Hospital Day: 2 Post-Op Day: 1 SUBJECTIVE Patient Summary: Mrs. Forte is a pleasant 49 y.o. female, with a past medical histor y significant for CKD, DM II, MARYURI, RLS, hypertension, who is referred to me for evaluation a nd consult regarding her osteomyelitis to her right 5th toe. She has followed up with ID and podiatry regarding her chronic diabetic foot infection, ulcer and osteomyelitis and has pre viously undergone a 6 week course of abx (via PICC line). The patient is also post surgical debridement of the ulcer, performed on 07/28/2019. Recent labs have shown she continues to dougherty ve mildly elevated CRP levels and her glucose levels have been uncontrolled. The patient adm its that her ulcer is healing very slowly, and is reportedly slower than to be expected. Events Overnight: POD 1 from right leg bypass. Pain not well controlled today. Reques ting increase in pain meds. Having some muscle cramps in right foot. OBJECTIVE Vital Signs: Vitals: 10/05/19 0756 BP: 138/90 Pulse: 96 Resp: 17 Temp: 36.9 C (98.5 F) Physical Exam CONSTITUTIONAL: Conversant. Well-developed. No acute distress. EYES: Anicteric sclerae. No lid drag. No proptosis. RESPIRATORY: Normal effort. Regular, even, and unlabored rate. CARDIOVASCULAR: Rate regular. ABDOMEN: Soft, non-tender, non-distended. SKIN: [place], warm, and dry without rashes or lesions. EXTREMITIES: ROM not limited. No digital cyanosis. Normal gait. NEUROLOGIC: Cranial nerves II-XII grossly intact. Alert and oriented x 3. PSYCHIATRIC: Appropriate affect, speech, and tone. Judgement and insight intact. VASCULAR: Dopplerable PT and DP intact. Dressings clean and dry. Labs: Lab Results Component Value Date WBC 12.97 (H) 10/05/2019 HGB 8.9 (L) 10/05/2019 HCT 27.9 (L) 10/05/2019 PLT 282 10/05/2019 CHOL 121 08/19/2019 TRIG 211 (H) 08/19/2019 HDL 36 (L) 08/19/2019 LDL 43 08/19/2019 ALT 21 09/06/2019 AST 18 09/06/2019 NA 137 10/05/2019 K 5.7 (H) 10/05/2019 CL 107 10/05/2019 CREA 1.90 (H) 10/05/2019 BUN 44 (H) 10/05/2019 CO2 23 10/05/2019 INR 1.0 08/17/2019 PROBLEM LIST Patient Active Problem List Diagnosis Date Noted POA Smoker - Daily 02/23/2017 Unknown Priority: Low GAVE (gastric antral vascular ectasia) 09/16/2019 Unknown PAD (peripheral artery disease) 09/16/2019 Unknown Acute blood loss anemia 08/17/2019 Unknown History of anemia due to CKD 08/17/2019 Unknown Occult blood in stools 08/17/2019 Unknown History of duodenal ulcer 08/17/2019 Unknown Upper GI bleeding 08/17/2019 Unknown MARYURI (obstructive sleep apnea) Unknown RLS (restless legs syndrome) Unknown Duodenal ulcer Unknown Allergic asthma Unknown Organic insomnia Unknown Obesity (BMI 35.0-39.9 without comorbidity) 02/23/2017 Unknown Renal tubular acidosis, type 4 Unknown Type 2 diabetes mellitus with stage 3 chronic kidney disease, without long-term current use of insulin 10/13/2012 Unknown Hypertension 10/13/2012 Unknown Proteinuria 10/13/2012 Unknown CKD (chronic kidney disease) stage 3, GFR 30-59 ml/min 10/13/2012 Unknown Migraine headache Unknown ASSESSMENT & PLAN PAD / Status post right AT to DP bypass using RSVG - POD 1. Pain meds increased to account for better pain control. Signals intact. Having some muscle cramps in her right foot. PT mikaela l and treat, out of bed to chair and encourage ambulation. Continue ASA and statin therapy. Possible discharge home tomorrow pending PT. Disposition: Home Code Status: Full code Jamie Cunningham PA-C Vascular Surgery adha Franklin R N - 10/04/2019 11:01 AM PDTPatient brought paper copy of Covid clearance test with her to pr obdulio today, negative results in paper chart as of 10/04/2019 per [facility]. documented i n this encounter H&P Notes Avel Upton MD - 10/04/2019 11:[facility] Pre-Operative History & Physical Interval Update There have been no significant clinical changes since the completion of the above H&P. Judi blunt's physical assessment showed Normal appearance and alert and oriented x 3 Plan for right mid CORY to DPA bypass due to tibial artery occlusions. PARQ was done and co nsent was obtained. Avel Upton MD 10/04/2019 Avel Cooper MD - 0 09/22/2019 10:[address] [facility] [address] [place] [place] [address] Office: [phone] SUBJECTIVE: Mrs. Forte is a pleasant 49 [...] and has previously undergone a 6 w [place] course of abx (via PICC line). The [...] Turbinoplasty; Surgeon: Henok Luther MD; Location: [facility] MAIN OR UPPER GASTROINTESTINAL ENDOSCOPY N/A 08/18/2019 Procedure: EGD; Surgeon: Stepan Magdaleno MD; Location: [facility] Social History Tobacco Use [...] MINI PEN NEEDLES 31G X 5 MM [facility] CROW CONTOUR TEST strip 4 strips Daily. Blood Glucose Monitoring Suppl (CONTOUR BLOOD GLUCOSE SYSTEM) KIMBERLI by Does not apply ro zev. bumetanide (BUMEX) 0.5 mg tablet Take 2 [...] mouth Daily. 90 tablet 3 TechLite Lancets [facility] No current facility-administered medications on file prior [...] Rate regular. ABDOMEN: Soft, non-tender, non-distended. SKIN: [place], warm, and dry without rashes or lesions. [...] in cm/sec, waveform analysis: Right lower extremity: BAKER HEAD prox: 91, triphasic DFA prox: 46, triphasic SFA prox: 104, triphasic SFA mid: 106, triphasic SFA dist: 121, triphasic Pop mid: 94, triphasic CORY prox: 86, triphasic CORY dist: 235, triphasic T VENEER STOCK LAYER prox: 0, absent VENEER STOCK LAYER dist: 0, absent Peroneal prox: 33, triphasic Peroneal dist: 0, absent IMPRESSION: RIGHT LEG: Triphasic inflow and outflow, without hemodynamically significant stenosis. Appe ars to be single-vessel runoff via the CORY, with > 50% distal CORY stenosis (113-235 cm/sec). VENEER STOCK LAYER chronically occluded throughout. 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 Final Report Signed by: Darleen Phillip, Dank Sign Date/Time: 09/15/2019 7:49 AM ASSESSMENT/PLAN: Discussed US RLE arteries results from 09/13 with the patient, which indicates VENEER STOCK LAYER and perone al occlusion (appears chronic) with [...] Thiago Galeano). Information re corded by the rahulibramiro has been reviewed and validated by me. I agree with its contents. Signed by: Love Maria 09/22/19 11:41 AM PDT Avel Upton MD Vascular Surgery documented in this enc ounter Miscellaneous Notes Plan of Care - Ricky Contreras MSW - 10/06/2019 12:15 PM PDTCare Management Initial Assessme nt Readmission Risk: Medium Status Prior to Admission or Illness Arrival From: admitted as an inpatient Lives With: alone Living Arrangements: house Caregiver For: no one Functional Status: Indep community ambulator. Works at [employer] for the tr mirella. No fall hx. Caregiving Concerns: none Home Accessibility: stairs to enter home Transportation Available: family or friend will provide Able to return to prior living: yes Care Management Concerns Last discharge date: Readmission Within Last 30 Days: no previous admission in last 30 days PCP: Mehrdad Avalos MD DC Needs Assessment Current Outpt/Agency/Support Groups: none Community Agency Name: Anticipated Changes Related to Illness: none Concerns to be Addressed: no discharge needs identified Services Anticipated at Discharge: none Equipment Needed after Discharge: none Pharmacy/Medication Needs: other (see comments)([facility] [place]) Transportation Needs: Pt family will provide Initial Plan Anticipated Discharge Disposition: home Expected DC Date: yes Steps Taken Toward Discharge: Initial assessment Pt denies any discharge needs, TARIFF COMPILING CLERK faxed scripts to [facility] pharmacy. Electronically signed: SKIP TRIPLETT 10/06/2019 12:18 PM PDT lan of Care - Leslie Cuevas RN - 10/06/2019 10:35 AM PDT Problem: Adult Inpatient Plan of Care Goal: Readiness for Transition of Care Outcome: Met Patient to discharge home with sister to assist. Patient ambulating well with adequate ledy n control measures. lan of Care - Piper Jewell RN - 10/05/2019 11:00 PM PDT Problem: Adult Inpatient Plan of Care Goal: Plan of Care Review Outcome: Ongoing, progressing Goal: Absence of Hospital-Acquired Illness or Injury Outcome: Ongoing, progressing Intervention: Identify and Manage Fall Risk Note: Room kept clutter free, call light in reach, personal belongings at bedside Goal: Optimal Comfort and Wellbeing Outcome: Ongoing, progressing Intervention: Monitor Pain and Promote Comfort Note: Pain medications given as ordered Problem: Fall Injury Risk Goal: Absence of Fall and Fall-Related Injury Outcome: Ongoing, progressing Intervention: Identify and Manage Contributors to Fall Injury Risk Flowsheets (Taken 10/05/2019 0117) Self-Care Promotion: independence encouraged BADL personal objects within reach lan of [place]ot[place] - Sunitha Ruiz RN - 10/05/2019 3:18 PM PDT Problem: Adult Inpatient Plan of Care Goal: Absence of Hospital-Acquired Illness or Injury Outcome: Ongoing, progressing Patient is ambulating and is up in chair today to promote blood flow and healing to wounds lan of Care - Erma Malagon PT - 10/05/2019 10:45 AM PDTFormatting of this note might be different from the o riginal. Physical Therapy Initial Evaluation Note Recommended discharge disposition: home with assist(plans to d/c to sister's home for a few days) Post discharge physical therapy recommendation: no further PT Equipment Recommendations: none(has walker and shower chair; ongoing podiatry follow up) Barriers to community-based discharge Physical Impairment, Precautions, and Pain Impairments Found (describe specific impairments): aerobic capacity/endurance, functional e ndurance/activity tolerance, gait, locomotion, and balance, circulation, integumentary integ rity Planned Interventions: gait training, stair training, strengthening Recommended Frequency: 3 times/wk for 7 days with reassessment due by 10/12/19 Summary: Pt s/p right mid CORY to DPA bypass due to tibial artery occlusions after having d ealt with R 5th toe osteomyelitis. Pt reporting improved pain control following medication by RN. R ankle visible edematous with resulting restricted AROM. Pt encouraged to perform AP s regularly with RLE elevated. Gait progressed well with FWW and improving quality of gait a s mobility progressed. BP elevated from 140s to 160s systolic pre/post activity. Living Environment Lives With: alone Living Arrangements: house Home Accessibility: stairs to enter home Number of Stairs to Enter Home: 2 Number of Stairs Within Home: 0 Stair Railings at Home: outside, present on right side Transportation Available: car Living Environment Comment: Tub shower with shower chair and HHSH. Standard toilet. Access ible to walker. Prior Functional Level Comment: Indep community ambulator. 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 No fall hx. Precautions Precautions/Limitations: falls Cognitive Assessment Additional Documentation: orientation Orientation: oriented x 4 Bed Mobility Additional Documentation: supine to/from sit Supine to Sit, Level of [place]: stand by assist Safety Issues: decreased use of legs for bridging/pushing Impairments: pain Transfers Additional Documentation: sit to/from stand Sit-Stand, Level of [place]: contact guard assist, verbal cues required Stand-Sit, Level of [place]: contact guard assist, verbal cues required [id number], Assistive Device: 2 wheeled walker (FWW), gait belt Safety Issues: weight-shifting ability decreased, step length decreased Gait Gait Comments: Initially step to gait with mild antalgia gradually improving to step throug h gait pattern but left step length still reduced compared to right given reduced R ankle fl exibility. Level of [place]: contact guard assist Assistive Device: 2 wheeled walker (FWW), gait belt Distance (feet): 140 Sensory Assessment Sensation Comments: Reports symmetrical light touch from left to right but overall reduced in feet. Of note, has large callous on lateral left great toe and poor skin quality on bila teral feet so was educated on daily skin checks and regular podiatry follow up. Range of Motion ROM Comments: Full BUE AROM; R ankle AROM limited by acute edema Strength L LE Strength: Grossly 5/5 R LE Strength: grossly 5/5 aside from PF/DF 4-/5 (limited by pain) Balance Sitting Balance: Static: good balance Sitting Balance: Dynamic: good balance Standing Balance: Static: good balance Standing Balance: Dynamic: fair balance Goals Reflects last filed data and may be from multiple contributors. Gait Goal Most Recent Value LTG Status new at 10/05/2019 1045 LTG [place] Level modified independent at 10/05/2019 1045 LTG Assistive Device -- [LRD] at 10/05/2019 1045 LTG Distance (feet) 350 at 10/05/2019 1045 lan of Care - Piper Phelps RN - 10/05/2019 6:25 AM PDT Problem: Adult Inpatient Plan of Care Goal: Plan of Care Review Outcome: Ongoing, progressing Goal: Absence of Hospital-Acquired Illness or Injury Outcome: Ongoing, progressing Intervention: Identify and Manage Fall Risk Note: Room kept clutter free, call light in reach, personal belongings at bedside Goal: Optimal Comfort and Wellbeing Outcome: Ongoing, progressing Intervention: Monitor Pain and Promote Comfort Note: PRN pain medications given as ordered p Note - Avel Upton MD - 10/04/2019 3:[address] [facility] Service: Vascular Surgery Operative Note Pre-operative Diagnosis: Critical limb ischemia of right lower extremity Post-operative Diagnosis: same Procedure(s): Open harvest of right great saphenous vein Right proximal anterior tibial artery to dorsalis pedis artery by pass using RSVG Surgeon: Avel Upton MD Stave Planer Tender(s): MAGDY Paez (PA was required to help with positioning, prepping and boom ping, exposure of vessels, vascular anastomosis, and closure). Anesthesia: General endotracheal anesthesia Estimated Blood Loss: 200 mL Other: IV Fluids: 1100 ml Indications: See pre-operative history and physical Findings: Right great saphenous vein was sclerotic but adequate size for fistula. Right a nterior tibial artery without significant disease. 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 After bypass, strong DP signals which augmented well with graft compression. Complications: None apparent Description of Procedure: Patient was properly identified and brought to the operating room . Patient was placed supine on the operating table and patient underwent general endotrache al anesthesia. Patient's right leg was then prepped and draped in usual sterile fashion. F irst a longitudinal incision was made in the right medial thigh and the right thigh great sa phenous vein was identified and dissected. The branches of the great saphenous vein were li gated using 3-0 silk sutures and divided. The great saphenous vein was dissected from the r ight groin to the level of the right knee. The vein was then ligated at the groin and at th e level of the right knee using 2-0 silk sutures and divided. The vein was then prepared on the back table for use for bypass. Next, a longitudinal vision was made in the right anterior calf and this was deepened elect rocautery. The anterior compartment fascia was then divided and the muscle was carefully sp read and the right anterior tibial artery was identified at the level of the mid calf and ca refully dissected. The anterior tibial artery was then encircled with Vesseloops. Next a l arge incision was made in the dorsum of the right foot over the previously marked dorsalis p luis artery site. This was deepened with electrocautery and the dorsalis pedis artery was i dentified and dissected and encircled with Vesseloops. A tunnel was then made from the righ t anterior calf to the right dorsum of the foot using a Nasim tunneler. The great sapheno us vein was then spatulated and an end-to-side anastomosis was created with the great saphen ous vein onto the anterior tibial artery using 7-0 Prolene sutures in a running fashion. Af ter completion of the anastomosis, there was good pulsatile bleeding noted to the bypass gra ft. The vein graft was then tunneled to the dorsum of the foot using the Nasim tunneler e nsured that there were no twists or kinks in the vein graft. The distal end of the vein gra ft was also spatulated and an end-to-side anastomosis was created with the vein graft onto t he dorsalis pedis artery also using 7-0 Prolene sutures in a running fashion. Prior to comp letion of the anastomosis, the vein graft was forward flushed and the artery was allowed to be backbled. After completion anastomosis, there was strong dorsalis pedis artery signals i n the right foot which augmentable with graft compression. The wounds were then irrigated a nd hemostasis was ensured. The deep tissues for the right anterior calf and dorsum of the f oot was then closed with 2-0 Vicryl sutures. The deep dermal tissues for both the right med ial thigh and anterior calf were then closed with 3-0 Vicryl in an interrupted fashion. The skin sites for the right medial thigh and the anterior calf was then closed with alejandro. The skin site for the dorsum of the foot was then closed with 3-0 nylon sutures in a vertica l mattress type configuration. Sterile dressings were then applied. At the end of case, sp onge, needles, and instrument counts were correct x2. There were no apparent complications. Condition: stable Avel Upton MD 10/11/2019 1:21 PM PDT rief Op Note - Zeny Upton ae, MD - 10/04/2019 3:[address] [facility] Service: Vascular Surgery Brief Op Note Pre-operative Diagnosis: Critical limb ischemia of right lower extremity Post-operative Diagnosis: same Procedure(s): Open harvest of right great saphenous vein Right proximal anterior tibial artery to dorsalis pedis artery bypass using RSVG Surgeon: Avel Upton MD Stave Planer Tender(s): MAGDY Paez (MAGDY was required to help with positioning, prepping and boom ping, exposure of vessels, vascular anastomosis, and closure). Anesthesia: General endotracheal anesthesia Estimated Blood Loss: 200 mL Other: IV Fluids: 1100 ml Indications: See pre-operative history and physical Findings: Right great saphenous vein was sclerotic but adequate size for fistula. Right a nterior tibial artery without significant disease. 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 After bypass, strong DP signals which augmented well with graft compression. Complications: None apparent Condition: stable See dictated operative report for full details. Avel Upton MD 10/04/2019 3:20 PM PDT documented in this enc ounter Plan of [...] [place] | | | | | | [address] | | | | | | | | +--------+ + + + + | 01/17/ | Office | Vascular Surgery | Bill Arevalo DNP | | | 2019 | Visit | | [address] | | | | | | [place] | | | | | | [address] | | | | | | | | +--------+ + + + + | 05/22/ | Office | Nephrology | Mariana Cortez, | | | 2020 | Visit | | [address] | | | | | | [address] | | | | | | [place] [address] | | | | | | [phone] | | | | | | | | +--------+ + + + + documented as of this encounter Procedures + +--------+ + + + | Procedure Name | Priori | Date/Time | Associated Diagnosis | Comments | | | ty | | | | + +--------+ + + + | LABS - EXTERNAL SCAN | | 10/07/2019 | | Results for this | | | | 12:00 AM | | procedure are in the | | | | PDT | | results section. | + +--------+ + + + | POC GLUCOSE (NON | Routin | 10/06/2019 | | Results for this | | ORD) | e | 9:08 AM | | procedure are in the | | | | PDT | | results section. | + +--------+ + + + | CBC NO DIFFERENTIAL | Routin | 10/06/2019 | | Results for this | | | e | 6:24 AM | | procedure are in the | | | | PDT | | results section. | + +--------+ + + + | BASIC METABOLIC | Routin | 10/06/2019 | | Results for this | | PANEL | e | 6:24 AM | | procedure are in the | | | | PDT | | results section. | + +--------+ + + + | POC GLUCOSE (NON | Routin | 10/05/2019 | | Results for this | | ORD) | e | 9:22 PM | | procedure are in the | | | | PDT | | results section. | + +--------+ + + + | POC GLUCOSE (NON | Routin | 10/05/2019 | | Results for this | | ORD) | e | 4:51 PM | | procedure are in the | | | | PDT | | results section. | + +--------+ + + + | POC GLUCOSE (NON | Routin | 10/05/2019 | | Results for this | | ORD) | e | 11:39 AM | | procedure are in the | | | | PDT | | results section. | + +--------+ + + + | POC GLUCOSE (NON | Routin | 10/05/2019 | | Results for this | | ORD) | e | 7:57 AM | | procedure are in the | | | | PDT | | results section. | + +--------+ + + + | CBC NO DIFFERENTIAL | Routin | 10/05/2019 | | Results for this | | | e | 6:01 AM | | procedure are in the | | | | PDT | | results section. | + +--------+ + + + | BASIC METABOLIC | Routin | 10/05/2019 | | Results for this | | PANEL | e | 6:01 AM | | procedure are in the | | | | PDT | | results section. | + +--------+ + + + | POC GLUCOSE (NON | Routin | 10/04/2019 | | Results for this | | ORD) | e | 8:12 PM | | procedure are in the | | | | PDT | | results section. | + +--------+ + + + | POC GLUCOSE (NON | Routin | 10/04/2019 | | Results for this | | ORD) | e | 4:48 PM | | procedure are in the | | | | PDT | | results section. | + +--------+ + + + | BYPASS GRAFT | | 10/04/2019 | PAD (peripheral | | | FEMORAL-POPLITEAL | | 12:12 PM | artery disease) | | | | | PDT | ([facility]) | | + +--------+ + + + | CBC WITH | STAT | 10/04/2019 | | Results for this | | DIFFERENTIAL | | 10:40 AM | | procedure are in the | | | | PDT | | results section. | + +--------+ + + + | TYPE AND SCREEN | STAT | 10/04/2019 | | Results for this | | | | 10:40 AM | | procedure are in the | | | | PDT | | results section. | + +--------+ + + + | BASIC METABOLIC | STAT | 10/04/2019 | | Results for this | | PANEL | | 10:40 AM | | procedure are in the | | | | PDT | | results section. | + +--------+ + + + | POC GLUCOSE (NON | Routin | 10/04/2019 | | Results for this | | ORD) | e | 10:37 AM | | procedure are in the | | | | PDT | | results section. | + +--------+ + + + | POCT TEST, | Routin | 10/04/2019 | | Results for this | | URINE, QUAL | e | 10:30 AM | | procedure are in the | | | | PDT | | results section. | + +--------+ + + + documented in this encounter Results LABS - EXTERNAL SCAN (10/07/2019 12:00 AM PDT) + + + | Narrative | Performed At | + + + | Ordered by an | | | unspecified provider. | | + + + POC Glucose (10/06/2019 9:08 AM PDT) + + + + + + | Component | Value | Ref Range | Performed | Pathologist | | | | | At | Signature | + + + + + + | Glucose, | 157 (H)Comment: Testing | 65 - 99 mg/dL | [facility] | | | POC | performed at [facility];[address] | | LABORATORY | | | | [address];[place], [place] | | | | | | [address] | | | | + + + + + + + + | Specimen | + + | | + + + + + + + | Performing | Address | City/State/Zipcode | Phone Number | | Organization | | | | + + + + + | [facility] | [address] | [place] [address] | [phone] | + + + + + CBC no Differential (10/06/2019 6:24 AM PDT) + + + + + + | Component | Value | Ref Range | Performed | Pathologist | | | | | At | Signature | + + + + + + | WBC | 10.03 | 3.80 - 11.00 | [facility] | | | | | K/uL | LABORATORY | | + + + + + + | Red Blood | 3.18 (L) | 3.70 - 5.10 | [facility] | | | Cells | | M/uL | LABORATORY | | + + + + + + | Hemoglobin | 9.1 (L) | 11.3 - 15.5 | [facility] | | | | | g/dL | LABORATORY | | + + + + + + | Hematocrit | 29.0 (L) | 34.0 - 46.0 % | [facility] | | | | | | LABORATORY | | + + + + + + | MCV | 91.2 | 80.0 - 100.0 fl | [facility] | | | | | | LABORATORY | | + + + + + + | MCH | 28.6 | 27.0 - 34.0 pg | [facility] | | | | | | LABORATORY | | + + + + + + | MCHC | 31.4 (L) | 32.0 - 35.5 | [facility] | | | | | g/dL | LABORATORY | | + + + + + + | RDW-SD | 48.6 | 37 - 53 fl | [facility] | | | | | | LABORATORY | | + + + + + + | Platelet | 278 | 150 - 400 K/uL | [facility] | | | Count | | | LABORATORY | | + + + + + + | MPV | 10.2Comment: NO NORMAL | fl | [facility] | | | | RANGE ESTABLISHEDTesting | | LABORATORY | | | | performed at [facility], [address] | | | | | [address] [facility], | | | | | | [place] [address] | | | | + + + + + + + + | Specimen | + + | Blood | + + + + + + + | Performing | Address | City/State/Zipcode | Phone Number | | Organization | | | | + + + + + | [facility] | [address] | [place] [address] | [phone] | + + + + + Basic Metabolic Panel (10/06/2019 6:24 AM PDT) + + + + + + | Component | Value | Ref Range | Performed | Pathologist | | | | | At | Signature | + + + + + + | Na | 135 | 135 - 145 | [facility] | | | | | mmol/L | LABORATORY | | + + + + + + | K | 5.2 (H) | 3.5 - 4.9 | [facility] | | | | | mmol/L | LABORATORY | | + + + + + + | Cl | 105 | 99 - 109 mmol/L | [facility] | | | | | | LABORATORY | | + + + + + + | CO2 | 22 (L) | 23 - 32 mmol/L | [facility] | | | | | | LABORATORY | | + + + + + + | Anion Gap | 13 | 5 - 20 mmol/L | [facility] | | | | | | LABORATORY | | + + + + + + | Glucose | 187 (H) | 65 - 99 mg/dL | [facility] | | | | | | LABORATORY | | + + + + + + | BUN | 50 (H) | 8 - 25 mg/dL | [facility] | | | | | | LABORATORY | | + + + + + + | Creatinine | 2.10 (H) | 0.50 - 1.00 | [facility] | | | | | mg/dL | LABORATORY | | + + + + + + | BUN/Creatin | 24 | | [facility] | | | ine Ratio | | | LABORATORY | | + + + + + + | Calcium | 8.1 (L) | 8.5 - 10.5 | [facility] | | | | | mg/dL | LABORATORY | | + + + + + + | Estimated | 25 (L)Comment: GFR <60: | >60 | [facility] | | | GFR | CHRONIC KIDNEY DISEASE, | mL/min/1.73m2 | LABORATORY | | | | IF FOUND OVER A 3 MONTH | | | | | | PERIOD.GFR <15: KIDNEY | | | | | | FAILURE.FOR | | | | | | AMERICANS, MULTIPLY THE | | | | | | CALCULATED GFR BY | | | | | | 1.210.This eGFR is | | | | | | calculated using the | | | | | | MDRD IDMS traceable | | | | | | equation.Testing | | | | | | performed at [facility], [address] | | | | | | [facility], | | | | | | [place] [address] | | | | + + + + + + + + | Specimen | + + | Blood | + + + + + + + | Performing | Address | City/State/Zipcode | Phone Number | | Organization | | | | + + + + + | [facility] | [address] | [place] [address] | [phone] | + + + + + POC Glucose (10/05/2019 9:22 PM PDT) + + + + + + | Component | Value | Ref Range | Performed | Pathologist | | | | | At | Signature | + + + + + + | Glucose, | 170 (H)Comment: Testing | 65 - 99 mg/dL | [facility] | | | POC | performed at [facility];[address] | | LABORATORY | | | | [address];[place] | | | | | | [address] | | | | + + + + + + + + | Specimen | + + | | + + + + + + + | Performing | Address | City/State/Zipcode | Phone Number | | Organization | | | | + + + + + | [facility] | [address] | [place] [address] | [phone] | + + + + + POC Glucose (10/05/2019 4:51 PM PDT) + + + + + + | Component | Value | Ref Range | Performed | Pathologist | | | | | At | Signature | + + + + + + | Glucose, | 165 (H)Comment: Testing | 65 - 99 mg/dL | [facility] | | | POC | performed at [facility];[address] | | LABORATORY | | | | [address];[place], [place] | | | | | | [address] | | | | + + + + + + + + | Specimen | + + | | + + + + + + + | Performing | Address | City/State/Zipcode | Phone Number | | Organization | | | | + + + + + | [facility] | [address] | [place] [address] | [phone] | + + + + + POC Glucose (10/05/2019 11:39 AM PDT) + + + + + + | Component | Value | Ref Range | Performed | Pathologist | | | | | At | Signature | + + + + + + | Glucose, | 145 (H)Comment: Testing | 65 - 99 mg/dL | [facility] | | | POC | performed at [facility];[address] | | LABORATORY | | | | [address];[place] | | | | | | [address] | | | | + + + + + + + + | Specimen | + + | | + + + + + + + | Performing | Address | City/State/Zipcode | Phone Number | | Organization | | | | + + + + + | [facility] | [address] | [place] [address] | [phone] | + + + + + POC Glucose (10/05/2019 7:57 AM PDT) + + + + + + | Component | Value | Ref Range | Performed | Pathologist | | | | | At | Signature | + + + + + + | Glucose, | 150 (H)Comment: Testing | 65 - 99 mg/dL | [facility] | | | POC | performed at [facility];[address] | | LABORATORY | | | | [address];[place] | | | | | | [address] | | | | + + + + + + + + | Specimen | + + | | + + + + + + + | Performing | Address | City/State/Zipcode | Phone Number | | Organization | | | | + + + + + | [facility] | [address] | [place] [address] | [phone] | + + + + + CBC no Differential (10/05/2019 6:01 AM PDT) + + + + + + | Component | Value | Ref Range | Performed | Pathologist | | | | | At | Signature | + + + + + + | WBC | 12.97 (H) | 3.80 - 11.00 | [facility] | | | | | K/uL | LABORATORY | | + + + + + + | Red Blood | 3.10 (L) | 3.70 - 5.10 | [facility] | | | Cells | | M/uL | LABORATORY | | + + + + + + | Hemoglobin | 8.9 (L) | 11.3 - 15.5 | [facility] | | | | | g/dL | LABORATORY | | + + + + + + | Hematocrit | 27.9 (L) | 34.0 - 46.0 % | [facility] | | | | | | LABORATORY | | + + + + + + | MCV | 90.0 | 80.0 - 100.0 fl | [facility] | | | | | | LABORATORY | | + + + + + + | MCH | 28.7 | 27.0 - 34.0 pg | [facility] | | | | | | LABORATORY | | + + + + + + | MCHC | 31.9 (L) | 32.0 - 35.5 | [facility] | | | | | g/dL | LABORATORY | | + + + + + + | RDW-SD | 46.4 | 37 - 53 fl | [facility] | | | | | | LABORATORY | | + + + + + + | Platelet | 282 | 150 - 400 K/uL | [facility] | | | Count | | | LABORATORY | | + + + + + + | MPV | 10.1Comment: NO NORMAL | fl | [facility] | | | | RANGE ESTABLISHEDTesting | | LABORATORY | | | | performed at [facility], [address] | | | | | [address], | | | | | | [place] [address] | | | | + + + + + + + + | Specimen | + + | Blood | + + + + + + + | Performing | Address | City/State/Zipcode | Phone Number | | Organization | | | | + + + + + | [facility] | [address] | [place] [address] | [phone] | + + + + + Basic Metabolic Panel (10/05/2019 6:01 AM PDT) + + + + + + | Component | Value | Ref Range | Performed | Pathologist | | | | | At | Signature | + + + + + + | Na | 137 | 135 - 145 | [facility] | | | | | mmol/L | LABORATORY | | + + + + + + | K | 5.7 (H) | 3.5 - 4.9 | [facility] | | | | | mmol/L | LABORATORY | | + + + + + + | Cl | 107 | 99 - 109 mmol/L | [facility] | | | | | | LABORATORY | | + + + + + + | CO2 | 23 | 23 - 32 mmol/L | [facility] | | | | | | LABORATORY | | + + + + + + | Anion Gap | 13 | 5 - 20 mmol/L | [facility] | | | | | | LABORATORY | | + + + + + + | Glucose | 156 (H) | 65 - 99 mg/dL | [facility] | | | | | | LABORATORY | | + + + + + + | BUN | 44 (H) | 8 - 25 mg/dL | [facility] | | | | | | LABORATORY | | + + + + + + | Creatinine | 1.90 (H) | 0.50 - 1.00 | [facility] | | | | | mg/dL | LABORATORY | | + + + + + + | BUN/Creatin | 23 | | [facility] | | | ine Ratio | | | LABORATORY | | + + + + + + | Calcium | 8.1 (L) | 8.5 - 10.5 | [facility] | | | | | mg/dL | LABORATORY | | + + + + + + | Estimated | 28 (L)Comment: GFR <60: | >60 | [facility] | | | GFR | CHRONIC KIDNEY DISEASE, | mL/min/1.73m2 | LABORATORY | | | | IF FOUND OVER A 3 MONTH | | | | | | PERIOD.GFR <15: KIDNEY | | | | | | FAILURE.FOR | | | | | | AMERICANS, MULTIPLY THE | | | | | | CALCULATED GFR BY | | | | | | 1.210.This eGFR is | | | | | | calculated using the | | | | | | MDRD IDWI traceable | | | | | | equation.Testing | | | | | | performed at [facility], [address] | | | | | | [facility], | | | | | | [place] [address] | | | | + + + + + + + + | Specimen | + + | Blood | + + + + + + + | Performing | Address | City/State/Zipcode | Phone Number | | Organization | | | | + + + + + | [facility] | [address] | [place] [address] | [phone] | + + + + + POC Glucose (10/04/2019 8:12 PM PDT) + + + + + + | Component | Value | Ref Range | Performed | Pathologist | | | | | At | Signature | + + + + + + | Glucose, | 274 (H)Comment: Testing | 65 - 99 mg/dL | [facility] | | | POC | performed at [facility];[address] | | LABORATORY | | | | [address];[place] | | | | | | [address] | | | | + + + + + + + + | Specimen | + + | | + + + + + + + | Performing | Address | City/State/Zipcode | Phone Number | | Organization | | | | + + + + + | [facility] | [address] | [place] [address] | [phone] | + + + + + POC Glucose (10/04/2019 4:48 PM PDT) + + + + + + | Component | Value | Ref Range | Performed | Pathologist | | | | | At | Signature | + + + + + + | Glucose, | 223 (H)Comment: Testing | 65 - 99 mg/dL | [facility] | | | POC | performed at [facility];[address] | | LABORATORY | | | | [address] [facility];[place], [place] | | | | | | [address] | | | | + + + + + + + + | Specimen | + + | | + + + + + + + | Performing | Address | City/State/Zipcode | Phone Number | | Organization | | | | + + + + + | [facility] | [address] | [place] [address] | [phone] | + + + + + Type and Screen (10/04/2019 10:40 AM PDT) + + + + + + | Component | Value | Ref Range | Performed | Pathologist | | | | | At | Signature | + + + + + + | ABO Rh | O POSITIVE | | [facility] | | | | | | LABORATORY | | + + + + + + | Antibody | NEGATIVE | | [facility] | | | Screen | | | LABORATORY | | + + + + + + | BB BAND | [id number] | | [facility] | | | | | | LABORATORY | | + + + + + + | BB BAND | Testing performed at | | SOLO | | | | [facility];[address] | | LABORATORY | | | | [address];[place] [address] | | | | + + + + + + + + | Specimen | + + | Blood | + + + + + + + | Performing | Address | City/State/Zipcode | Phone Number | | Organization | | | | + + + + + | [facility] | [address] | [place] [address] | [phone] | + + + + + CBC with Differential (10/04/2019 10:40 AM PDT) + + + + + + | Component | Value | Ref Range | Performed | Pathologist | | | | | At | Signature | + + + + + + | WBC | 7.90 | 3.80 - 11.00 | [facility] | | | | | K/uL | LABORATORY | | + + + + + + | Red Blood | 3.58 (L) | 3.70 - 5.10 | [facility] | | | Cells | | M/uL | LABORATORY | | + + + + + + | Hemoglobin | 10.3 (L) | 11.3 - 15.5 | [facility] | | | | | g/dL | LABORATORY | | + + + + + + | Hematocrit | 32.2 (L) | 34.0 - 46.0 % | [facility] | | | | | | LABORATORY | | + + + + + + | MCV | 89.9 | 80.0 - 100.0 fl | [facility] | | | | | | LABORATORY | | + + + + + + | MCH | 28.8 | 27.0 - 34.0 pg | [facility] | | | | | | LABORATORY | | + + + + + + | MCHC | 32.0 | 32.0 - 35.5 | [facility] | | | | | g/dL | LABORATORY | | + + + + + + | RDW-SD | 47.2 | 37 - 53 fl | [facility] | | | | | | LABORATORY | | + + + + + + | Platelet | 331 | 150 - 400 K/uL | [facility] | | | Count | | | LABORATORY | | + + + + + + | MPV | 9.8Comment: NO NORMAL | fl | [facility] | | | | RANGE ESTABLISHED | | LABORATORY | | + + + + + + | Diff Type | AUTOMATED | | [facility] | | | | | | LABORATORY | | + + + + + + | % nRBC | 0.0 | 0 /100WBC | [facility] | | | | | | LABORATORY | | + + + + + + | % | 74.70 | % | [facility] | | | Neutrophils | | | LABORATORY | | + + + + + + | IMMATURE | 0.30 | % | [facility] | | | GRANULOCYTE | | | LABORATORY | | + + + + + + | % | 15.10 | % | [facility] | | | Lymphocytes | | | LABORATORY | | + + + + + + | Monocyte % | 6.30 | % | [facility] | | | | | | LABORATORY | | + + + + + + | Eosinophils | 3.50 | % | [facility] | | | % | | | LABORATORY | | + + + + + + | Basophils % | 0.10 | % | [facility] | | | | | | LABORATORY | | + + + + + + | Neutrophils | 5.90 | 1.90 - 7.40 | [facility] | | | , Absolute | | K/uL | LABORATORY | | + + + + + + | IMMATURE | 0.02Comment: NOTE NEW | 0.00 - 0.07 | [facility] | | | GRANS AB | REFERENCE RANGE | K/uL | LABORATORY | | + + + + + + | Absolute | 1.19 | 1.00 - 3.90 | [facility] | | | Lymphocytes | | K/uL | LABORATORY | | + + + + + + | Absolute | 0.50 | 0.00 - 0.80 | [facility] | | | Monocytes | | K/uL | LABORATORY | | + + + + + + | Eosinophils | 0.28 | 0.00 - 0.50 | [facility] | | | , Absolute | | K/uL | LABORATORY | | + + + + + + | Basophils, | 0.01Comment: Testing | 0.00 - 0.10 | [facility] | | | Absolute | performed at [facility];[address] | K/uL | LABORATORY | | | | [address];[place], [place] | | | | | | [address] | | | | + + + + + + + + | Specimen | + + | Blood | + + + + + + + | Performing | Address | City/State/Zipcode | Phone Number | | Organization | | | | + + + + + | [facility] | [address] | [place] [address] | [phone] | + + + + + Basic Metabolic Panel (10/04/2019 10:40 AM PDT) + + + + + + | Component | Value | Ref Range | Performed | Pathologist | | | | | At | Signature | + + + + + + | Na | 133 (L) | 135 - 145 | [facility] | | | | | mmol/L | LABORATORY | | + + + + + + | K | 4.7 | 3.5 - 4.9 | [facility] | | | | | mmol/L | LABORATORY | | + + + + + + | Cl | 103 | 99 - 109 mmol/L | [facility] | | | | | | LABORATORY | | + + + + + + | CO2 | 23 | 23 - 32 mmol/L | [facility] | | | | | | LABORATORY | | + + + + + + | Anion Gap | 12 | 5 - 20 mmol/L | [facility] | | | | | | LABORATORY | | + + + + + + | Glucose | 222 (H) | 65 - 99 mg/dL | [facility] | | | | | | LABORATORY | | + + + + + + | BUN | 39 (H) | 8 - 25 mg/dL | [facility] | | | | | | LABORATORY | | + + + + + + | Creatinine | 1.78 (H) | 0.50 - 1.00 | [facility] | | | | | mg/dL | LABORATORY | | + + + + + + | BUN/Creatin | 22 | | [facility] | | | ine Ratio | | | LABORATORY | | + + + + + + | Calcium | 9.5 | 8.5 - 10.5 | [facility] | | | | | mg/dL | LABORATORY | | + + + + + + | Estimated | 30 (L)Comment: GFR <60: | >60 | [facility] | | | GFR | CHRONIC KIDNEY DISEASE, | mL/min/1.73m2 | LABORATORY | | | | IF FOUND OVER A 3 MONTH | | | | | | PERIOD.GFR <15: KIDNEY | | | | | | FAILURE.FOR | | | | | | AMERICANS, MULTIPLY THE | | | | | | CALCULATED GFR BY | | | | | | 1.210.This eGFR is | | | | | | calculated using the | | | | | | MDRD IDMS traceable | | | | | | equation.Testing | | | | | | performed at [facility];[address] | | | | | | [facility];[place], [place] | | | | | | [address] | | | | + + + + + + + + | Specimen | + + | Blood | + + + + + + + | Performing | Address | City/State/Zipcode | Phone Number | | Organization | | | | + + + + + | [facility] | [address] | [place] [address] | [phone] | + + + + + POC Glucose (10/04/2019 10:37 AM PDT) + + + + + + | Component | Value | Ref Range | Performed | Pathologist | | | | | At | Signature | + + + + + + | Glucose, | 221 (H)Comment: Testing | 65 - 99 mg/dL | [facility] | | | POC | performed at [facility];[address] | | LABORATORY | | | | [address];[place], [place] | | | | | | [address] | | | | + + + + + + + + | Specimen | + + | | + + + + + + + | Performing | Address | City/State/Zipcode | Phone Number | | Organization | | | | + + + + + | [facility] | [address] | [place] [address] | [phone] | + + + + + POCT Test, Urine, Qual (10/04/2019 10:30 AM PDT) + + + + + + | Component | Value | Ref Range | Performed | Pathologist | | | | | At | Signature | + + + + + + | POC HCG | NEGATIVEComment: Testing | NEG | [facility] | | | Qualitative | performed at [facility];[address] | | LABORATORY | | | | [address];[place] | | | | | | [address] | | | | + + + + + + + + | Specimen | + + | | + + + + + + + | Performing | Address | City/State/Zipcode | Phone Number | | Organization | | | | + + + + + | [facility] | [address] | [place] [address] | [phone] | + + + + + documented in this encounter Visit Diagnoses + + | Diagnosis | + + | GAVE (gastric antral vascular ectasia) - Primary | + + | PAD (peripheral artery disease) (HCC) Unspecified disorders of arteries and | | arterioles | + + documented in this encounter Admitting Diagnoses + + | Diagnosis | + + | GAVE (gastric antral vascular ectasia) | + + | PAD (peripheral artery disease) (HCC) Unspecified disorders of arteries and | | arterioles | + + documented in this encounter Administered Medications + +--------+ +--------+------+------+ | Medication Order | MAR | Action | Dose | Rate | Site | | | Action | Date | | | | + +--------+ +--------+------+------+ | ascorbic acid (VITAMIN C) | Given | 10/06/19 | 500 mg | | | | tablet 500 mg 500 mg, Oral, | | 20 8:59 | | | | | DAILY, First dose on Thu10/05/19 | | AM PDT | | | | | at 0900 | | | | | | + +--------+ +--------+------+------+ +-------+ +--------+---+---+ | Given | 10/05/19 | 500 mg | | | | | 20 9:24 | | | | | | AM PDT | | | | +-------+ +--------+---+---+ +---+---+ | | | +---+---+ + +-------+ +-------+---+---+ | aspirin chewable tablet 81 mg | Given | 10/06/19 | 81 mg | | | | 81 mg, Oral, DAILY, First dose on | | 20 8:59 | | | | | Thu10/04/19 at 1945, | | AM PDT | | | | | Post-op/Phase II | | | | | | + +-------+ +-------+---+---+ +-------+ +-------+---+---+ | Given | 10/05/19 | 81 mg | | | | | 20 9:24 | | | | | | AM PDT | | | | +-------+ +-------+---+---+ | Given | 10/04/19 | 81 mg | | | | | 20 8:02 | | | | | | PM PDT | | | | +-------+ +-------+---+---+ +---+---+ | | | +---+---+ + +-------+ +------+---+---+ | bumetanide (BUMEX) tablet 1 mg | Given | 10/06/19 | 1 mg | | | | 1 mg, Oral, 2 TIMES DAILY, First | | 20 8:59 | | | | | dose on Thu10/04/19 at 2100 | | AM PDT | | | | + +-------+ +------+---+---+ +-------+ +------+---+---+ | Given | 10/05/19 | 1 mg | | | | | 20 8:06 | | | | | | PM PDT | | | | +-------+ +------+---+---+ | Given | 10/05/19 | 1 mg | | | | | 20 9:24 | | | | | | AM PDT | | | | +-------+ +------+---+---+ + +---+ | | | + +---+ | dextrose 10% (D10W) infusion | | | at 50 mL/hr, Intravenous, | | | CONTINUOUS PRN, hypoglycemia, | | | Starting Thu10/04/19 at 1920, | | | Start infusion if unable to | | | maintain blood glucose greater | | | than 70 mg/dL after two rounds of | | | hypoglycemia treatment. Recheck | | | blood glucose 30 minutes after | | | starting D10W then at least | | | hourly and PRN until it is | | | discontinued. Call provider to | | | discuss parameters for D10W | | | discontinuation., | | + +---+ | | | + +---+ | dextrose 50% injection 12.5-25 | | | g 12.5-25 g, Intravenous, PRN, | | | Low Blood Sugar, Starting Tue | | | 10/04/19 at 1920, For blood | | | glucose 50-69 mg/dl - give 12.5 g | | | For blood glucose less than 50 | | | mg/dl - give 25 g, | | + +---+ | | | + +---+ + +-------+ +--------+---+---+ | fentaNYL (PF) injection 25-50 | Given | 10/04/19 | 50 mcg | | | | mcg 25-50 mcg, Intravenous, | | 20 6:31 | | | | | EVERY 5 MIN PRN, Pain, Initial | | PM PDT | | | | | postop medication for URGENT PAIN | | | | | | | OR ESCALATING PAIN, Starting Tue | | | | | | | 10/04/19 at 1527, For 4 doses, | | | | | | | First dose must be lowest dose. | | | | | | | Use Pasero Sedation Scale. | | | | | | | [Opioid tolerant = One week or | | | | | | | longer, irxpel-xud-raezy use of | | | | | | | at least the following DAILY | | | | | | | dose: 60mg oral morphine, 60mg | | | | | | | oral hydrocodone, 30mg oral | | | | | | | oxycodone, 8mg oral | | | | | | | hydromorphone, fentanyl patch | | | | | | | 25mcg/hr, or equivalent dose of | | | | | | | another opioid], Recovery/Phase I | | | | | | + +-------+ +--------+---+---+ +-------+ +--------+---+---+ | Given | 10/04/19 | 25 mcg | | | | | 20 5:38 | | | | | | PM PDT | | | | +-------+ +--------+---+---+ | Given | 10/04/19 | 25 mcg | | | | | 20 4:05 | | | | | | PM PDT | | | | +-------+ +--------+---+---+ +---+---+ | | | +---+---+ + +-------+ +------+---+---+ | folic acid tablet 1 mg 1 mg, | Given | 10/06/19 | 1 mg | | | | Oral, DAILY, First dose on Thu | | 20 8:58 | | | | | 10/05/19 at 0900 | | AM PDT | | | | + +-------+ +------+---+---+ +-------+ +------+---+---+ | Given | 10/05/19 | 1 mg | | | | | 20 9:24 | | | | | | AM PDT | | | | +-------+ +------+---+---+ +---+---+ | | | +---+---+ + +-------+ +------+---+---+ | glipiZIDE (GLUCOTROL) tablet 5 | Given | 10/06/19 | 5 mg | | | | mg 5 mg, Oral, DAILY BEFORE | | 20 8:30 | | | | | BREAKFAST, First dose on Wed | | AM PDT | | | | | 10/05/19 at 0730 | | | | | | + +-------+ +------+---+---+ +-------+ +------+---+---+ | Given | 10/05/19 | 5 mg | | | | | 20 8:12 | | | | | | AM PDT | | | | +-------+ +------+---+---+ +---+---+ | | | +---+---+ + +-------+ + +---+---+ | HYDROcodone-acetaminophen | Given | 10/06/19 | 1 tablet | | | | (NORCO) 10-325 mg per tablet 1 | | 20 11:56 | | | | | tablet 1 tablet, Oral, EVERY 4 | | AM PDT | | | | | HOURS PRN, Pain, Starting Wed | | | | | | | 10/05/19 at 0946, No more than | | | | | | | 4000 mg acetaminophen per 24 | | | | | | | hours from all sources, | | | | | | + +-------+ + +---+---+ +-------+ + +---+---+ | Given | 10/06/19 | 1 tablet | | | | | 20 8:05 | | | | | | AM PDT | | | | +-------+ + +---+---+ | Given | 10/06/19 | 1 tablet | | | | | 20 3:57 | | | | | | AM PDT | | | | +-------+ + +---+---+ +---+---+ | | | +---+---+ + +-------+ +--------+---+---+ | HYDROmorphone (DILAUDID) | Given | 10/05/19 | 0.4 mg | | | | injection 0.2-0.4 mg 0.2-0.4 mg, | | 20 6:38 | | | | | Intravenous, EVERY 1 HOUR PRN, | | AM PDT | | | | | Pain, Starting Tu10/04/19 at | | | | | | | 1920, If oral route not an | | | | | | | option. Slow IV push, not faster | | | | | | | than 0.3mg/minute. First dose | | | | | | | must be lowest dose, titrate to | | | | | | | effective dose by repeat of | | | | | | | lowest dose every 30 minutes prn | | | | | | | pain, may not exceed maximum dose | | | | | | | ordered per interval. Use | | | | | | | Pasero Sedation Scale., | | | | | | | Post-op/Phase II | | | | | | + +-------+ +--------+---+---+ +-------+ +--------+---+---+ | Given | 10/05/19 | 0.4 mg | | | | | 20 4:09 | | | | | | AM PDT | | | | +-------+ +--------+---+---+ | Given | 10/05/19 | 0.4 mg | | | | | 20 12:50 | | | | | | AM PDT | | | | +-------+ +--------+---+---+ +---+---+ | | | +---+---+ + +-------+ +------+---+---+ | HYDROmorphone (DILAUDID) | Given | 10/05/19 | 1 mg | | | | injection 1 mg 1 mg, | | 20 5:41 | | | | | Intravenous, EVERY 2 HOURS PRN, | | PM PDT | | | | | Pain, Starting 10/05/19 at | | | | | | | 0915, If oral route not an | | | | | | | option. Slow IV push, not faster | | | | | | | than 0.3mg/minute. First dose | | | | | | | must be lowest dose, titrate to | | | | | | | effective dose by repeat of | | | | | | | lowest dose every 30 minutes prn | | | | | | | pain, may not exceed maximum dose | | | | | | | ordered per interval. Use | | | | | | | Pasero Sedation Scale., | | | | | | | Post-op/Phase II | | | | | | + +-------+ +------+---+---+ +-------+ +------+---+---+ | Given | 10/05/19 | 1 mg | | | | | 20 12:47 | | | | | | PM PDT | | | | +-------+ +------+---+---+ +---+---+ | | | +---+---+ + +-------+ +---------+---+ + | insulin lispro (humaLOG) | Given | 10/06/19 | 3 Units | | Arm-Left | | injection (vial) 0-18 Units 0-18 | | 20 9:09 | | | Upper | | Units, Subcutaneous, 4 TIMES | | AM PDT | | | | | DAILY WITH MEALS & NIGHTLY, First | | | | | | | dose on Thu10/04/19 at 2100, | | | | | | | CORRECTION SCALE: Blood Glucose | | | | | | | (BG) < 150: None | | | | | | | BG 150-200: DAY: 3 units. | | | | | | | NIGHT: 0 units BG 201-250: DAY: | | | | | | | 6 units. NIGHT: 3 units BG | | | | | | | 251-300: DAY: 9 units. NIGHT: | | | | | | | 6 units BG 301-350: DAY: 12 | | | | | | | units. NIGHT: 9 units BG | | | | | | | 351-400: DAY: 15 units. NIGHT: | | | | | | | 12 units BG > 400 : DAY: 18 | | | | | | | units. NIGHT: 15 units | | | | | | | AND CALL PROVIDER | | | | | | | Use DAY DOSE for doses | | | | | | | scheduled: AC, NPO, Daytime | | | | | | | [id number] Use NIGHT DOSE for | | | | | | | doses scheduled: HS, | | | | | | | Nighttime [id number] If the BG is | | | | | | | not checked before the patient | | | | | | | starts eating, do not give | | | | | | | correction insulin. Only for use | | | | | | | with U-100 insulin syringe., | | | | | | + +-------+ +---------+---+ + +-------+ +---------+---+ + | Given | 10/05/19 | 3 Units | | Arm-Left | | | 20 5:18 | | | Upper | | | PM PDT | | | | +-------+ +---------+---+ + | Given | 10/05/19 | 3 Units | | Arm-Left | | | 20 8:12 | | | Upper | | | AM PDT | | | | +-------+ +---------+---+ + +---+---+ | | | +---+---+ + +---------+ +---+-------+---+ | lactated ringers (LR) infusion | New Bag | 10/05/19 | | 100 | | | at 100 mL/hr, Intravenous, | | 20 3:32 | | mL/hr | | | CONTINUOUS, Starting 10/04/19 | | PM PDT | | | | | at 1945, Post-op/Phase II | | | | | | + +---------+ +---+-------+---+ +---------+ +---+-------+---+ | New Bag | 10/05/19 | | 100 | | | | 20 4:55 | | mL/hr | | | | AM PDT | | | | +---------+ +---+-------+---+ | New Bag | 10/04/19 | | 100 | | | | 20 7:45 | | mL/hr | | | | PM PDT | | | | +---------+ +---+-------+---+ +---+---+ | | | +---+---+ + +-------+ +---------+---+---+ | meperidine (DEMEROL) injection | Given | 10/04/19 | 12.5 mg | | | | 12.5 mg 12.5 mg, Intravenous, | | 20 4:20 | | | | | PRN, Shivering, Starting Tue | | PM PDT | | | | | 10/04/19 at 1527, For 2 doses, May | | | | | | | Repeat once in 5 min., | | | | | | | Recovery/Phase I | | | | | | + +-------+ +---------+---+---+ +-------+ +---------+---+---+ | Given | 10/04/19 | 12.5 mg | | | | | 20 4:10 | | | | | | PM PDT | | | | +-------+ +---------+---+---+ +---+---+ | | | +---+---+ + +-------+ +-------+---+---+ | metoprolol succinate | Given | 10/06/19 | 25 mg | | | | (TOPROL-XL) ER tablet 25 mg 25 | | 20 8:58 | | | | | mg, Oral, DAILY, First dose on | | AM PDT | | | | | 10/05/19 at 0900, Tablet may | | | | | | | be cut where scored but do not | | | | | | | crush., | | | | | | + +-------+ +-------+---+---+ +-------+ +-------+---+---+ | Given | 10/05/19 | 25 mg | | | | | 20 9:24 | | | | | | AM PDT | | | | +-------+ +-------+---+---+ +---+---+ | | | +---+---+ + +-------+ +-------+---+---+ | pantoprazole (PROTONIX) DR | Given | 10/06/19 | 40 mg | | | | tablet 40 mg 40 mg, Oral, DAILY | | 20 8:30 | | | | | BEFORE BREAKFAST, First dose on | | AM PDT | | | | | Thu10/05/19 at 0730, Do not cut | | | | | | | or crush., Indication: GERD | | | | | | + +-------+ +-------+---+---+ +-------+ +-------+---+---+ | Given | 10/05/19 | 40 mg | | | | | 20 8:12 | | | | | | AM PDT | | | | +-------+ +-------+---+---+ +---+---+ | | | +---+---+ + +-------+ +-------+---+---+ | rosuvastatin (CRESTOR) tablet | Given | 10/06/19 | 20 mg | | | | 20 mg 20 mg, Oral, DAILY, First | | 20 8:58 | | | | | dose on Thu10/05/19 at 0900 | | AM PDT | | | | + +-------+ +-------+---+---+ +-------+ +-------+---+---+ | Given | 10/05/19 | 20 mg | | | | | 20 9:24 | | | | | | AM PDT | | | | +-------+ +-------+---+---+ +---+---+ | | | +---+---+ documented in this encounter
--- OUTSIDE RECORDS SUMMARY | ~2019-11-09 | XMS | Encounter Summary ---
Demographics + + + | Address | [address] | | | [place] [address] | + + + | Home Phone | | + + + | Preferred Language | Unknown | + + + | Marital Status | Single | + + + | Mormon Affiliation | Unknown | + + + | Race | or | + + + | Ethnic Group | Not or | + + + Author + + + | Author | [facility] | | | and [place] | + + + | Organization | [facility] | | [...] Team Providers + +------+ + | Care Chief Technician X Ray Name | Role | Phone | + +------+ + PCP | Unavailable | + +------+ + Encounter Details +--------+ + + + + | Date | Type | Department | Care Team | Description | +--------+ + + + + | 11/03/ | Orders Only | [facility] [place] | Mariana Cortez W, | CKD (chronic kidney | | 2012 | | NEPHROLOGY [address] | disease) stage 2, | | | | [address] | [address] [place] | GFR 60-89 ml/min | | | | [address] | [place] [address] | (Primary Dx) | | | | [address] | [phone] | | | | | [phone] | | | +--------+ + + + [...] this encounter Progress Ada Rene RN - 11/03/2012 1:05 PM PDTLabs for nephrology appt on 11/10/12 sent to Yoselin Lua signed by Ada Serrano RN at 11/03/2012 1:10 PM PDTdocumented shlomo mcgregor encounter Plan of Treatment +--------+ + + + + | Date | Type | Specialty | Care Team | Description | +--------+ + + + + | 01/17/ | Appointment | Radiology | Bill Arevalo DNP | | | 2019 | | | [address] | | | | | | [place] | | | | | | [address] | | | | | | | | +--------+ + + + + | 01/17/ | Office | Vascular Surgery | Bill Arevalo DNP | | | 2019 | Visit | | [address] | | | | | | [place] | | | | | | [address] | | | | | | | | +--------+ + + + + | 05/22/ | Office | Nephrology | Mariana Cortez, | | | 2020 | Visit | | [address] | | | | | | [address] | | | | | | [place] [address] | | | | | | [phone] | | | | | | | | +--------+ + + + + documented as of this encounter Visit Diagnoses + + | Diagnosis | + + | CKD (chronic kidney disease) stage 2, GFR 60-89 ml/min - Primary Chronic kidney | | disease, Stage II (mild) | + + documented in this encounter"
--- OUTSIDE RECORDS SUMMARY | ~2019-11-09 | XMS | Encounter Summary ---
Demographics + + + | Address | [address] | | | [place] [address] | + + + | Home Phone [...] Author + + + | Author | [facility] | | | and [place] | + + + | Organization | [facility] | | | [...] Providers + +------+ + | Care Electric Accounting Machine Operator Name | Role | Phone | + +------+ + | Mehrdad Avalos MD | PCP | | + +------+ + Encounter Details +--------+ + + + + | Date | Type | Department | Care Team | Description | +--------+ + + + + | 05/09/ | Abstract | [facility] [place] | Mariana Cortez W, | | | 2019 | | NEPHROLOGY [address] | | | | | [address] | [address] [place] | | | | | [place], [place] | [place] [address] | | | | | [address] | [phone] | | | | | [phone] | | | +--------+ + + + [...] documented as of this encounter Progress Notes Ada Serrano RN - 05/10/2019 10:31 AM PDT documented in this e ncounter Plan of [...] [address] | | | | | | [place] | | | | | | [id number] | | | | | | | | +--------+ + + + + | 05/22/ | Office | Nephrology | Mariana Cortez, | | | 2020 | Visit | | [address] | | | | | | [address] [place] | | | | | | [place] [address] | | | | | | [phone] | | | | | | | | +--------+ + + + + documented as of this encounter Procedures + +--------+ + + + | Procedure Name | Priori | Date/Time | Associated Diagnosis | Comments | | | ty | | | | + +--------+ + + + | EXTERNAL LAB: PTH, | Routin | 05/09/2019 | | | | INTACT | e | | | | + +--------+ + + + | EXTERNAL LAB: | Routin | 05/09/2019 | | | | PROTEIN/CREATININE | e | | | | | RATIO | | | | | + +--------+ + + + documented in this encounter Results External Lab: PTH, Intact (05/09/2019) + +-------+ + + + | Component | Value | Ref Range | Performed | Pathologist | | | | | At | Signature | + +-------+ + + + | PTH Intact, | | | | | | External | | | | | + +-------+ + + + + + | Specimen | + + | | + + External Lab: Protein/Creatinine Ratio (05/09/2019) + +-------+ + + + | Component | Value | Ref Range | Performed | Pathologist | | | | | At | Signature | + +-------+ + + + | Protein/Cre | | | | | | atinine | | | | | | Ratio, | | | | | | External | | | | | + +-------+ + + + + + | Specimen | + + | | + + documented in this encounter Visit Diagnoses Not on filedocumented in this encounter"
--- OUTSIDE RECORDS SUMMARY | ~2019-11-09 | XMS | Encounter Summary ---
Demographics + + + | Address | [address] | | | [place] [address] | + + + | Home Phone | | + + + | Preferred Language | Unknown | + + + | Marital Status | Single | + + + | Restorationism Affiliation | Unknown | + + + [...] Team Providers + +------+ + | Care Stenciling Machine Tender Name | Role | Phone | + +------+ + | Ronel Jacobson PA-C | PCP | | + +------+ + Encounter Details +--------+ + + + + | Date | Type | Department | Care Team | Description | +--------+ + + + + | 11/11/ | Abstract | [facility] | Mariana Cortez W, | | | 2015 | | NEPHROLOGY [address] | [address] | | | | | [address] | [address] [place] | | | | | [place], [place] | [place] [address] | | | | | [address] | [phone] | | | | | [phone] | | | +--------+ + + + [...] [place] | | | | | | [address] | | | | | | | | +--------+ + + + + | 01/17/ | Office | Vascular Surgery | Bill Arevalo DNP | | | 2019 | Visit | | [address] | | | | | | [place] | | | | | | [address] | | | | | | | | +--------+ + + + + | 05/22/ | Office | Nephrology | Mariana Cortez W, | | | 2020 | Visit | | [address] | | | | | | [address] [place] | | | | | | [place] [address] | | | | | | [phone] | | | | | | | | +--------+ + + + + documented as of this encounter Procedures + +--------+ + + + | Procedure Name | Priori | Date/Time | Associated Diagnosis | Comments | | | ty | | | | + +--------+ + + + | EXTERNAL LAB: LEVI | Routin | 11/09/2015 | | Results for this | | | e | | | procedure are in the | | | | | | results section. | + +--------+ + + + | EXTERNAL LAB: | Routin | 11/09/2015 | | Results for this | | GLUCOSE | e | | | procedure are in the | | | | | | results section. | + +--------+ + + + | EXTERNAL LAB: | Routin | 11/09/2015 | | Results for this | | ALBUMIN | e | | | procedure are in the | | | | | | results section. | + +--------+ + + + | EXTERNAL LAB: | Routin | 11/09/2015 | | Results for this | | PHOSPHORUS | e | | | procedure are in the | | | | | | results section. | + +--------+ + + + | EXTERNAL LAB: | Routin | 11/09/2015 | | Results for this | | CALCIUM | e | | | procedure are in the | | | | | | results section. | + +--------+ + + + | EXTERNAL LAB: CARBON | Routin | 11/09/2015 | | Results for this | | DIOXIDE | e | | | procedure are in the | | | | | | results section. | + +--------+ + + + | EXTERNAL LAB: | Routin | 11/09/2015 | | Results for this | | CHLORIDE | e | | | procedure are in the | | | | | | results section. | + +--------+ + + + | EXTERNAL LAB: | Routin | 11/09/2015 | | Results for this | | POTASSIUM | e | | | procedure are in the | | | | | | results section. | + +--------+ + + + | EXTERNAL LAB: SODIUM | Routin | 11/09/2015 | | Results for this | | | e | | | procedure are in the | | | | | | results section. | + +--------+ + + + | EXTERNAL LAB: EGFR | Routin | 11/09/2015 | | Results for this | | | e | | | procedure are in the | | | | | | results section. | + +--------+ + + + | EXTERNAL LAB: | Routin | 11/09/2015 | | Results for this | | CREATININE | e | | | procedure are in the | | | | | | results section. | + +--------+ + + + documented in this encounter Results External Lab: LEVI (11/09/2015) + +--------+ + + + | Component | Value | Ref Range | Performed | Pathologist | | | | | At | Signature | + +--------+ + + + | BUN, | 39 (A) | 8 - 25 | EXTERNAL | | | External | | | LAB | | + +--------+ + + + + + | Resulting Agency Comment | + + | [facility] | + + + +---------+ + + | Performing | Address | City/State/Zipcode | Phone Number | | Organization | | | | + +---------+ + + | EXTERNAL LAB | | | | + +---------+ + + External Lab: Glucose (11/09/2015) + +---------+ + + + | Component | Value | Ref Range | Performed | Pathologist | | | | | At | Signature | + +---------+ + + + | Glucose, | 157 (A) | 65 - 99 | EXTERNAL | | | External | | | LAB | | + +---------+ + + + + + | Resulting Agency Comment | + + | [facility] | + + + +---------+ + + | Performing | Address | City/State/Zipcode | Phone Number | | Organization | | | | + +---------+ + + | EXTERNAL LAB | | | | + +---------+ + + External Lab: Albumin (11/09/2015) + +-------+ + + + | Component | Value | Ref Range | Performed | Pathologist | | | | | At | Signature | + +-------+ + + + | Albumin, | 3 (A) | 3.5 - 4.7 | EXTERNAL | | | External | | | LAB | | + +-------+ + + + + + | Resulting Agency Comment | + + | [facility] | + + + +---------+ + + | Performing | Address | City/State/Zipcode | Phone Number | | Organization | | | | + +---------+ + + | EXTERNAL LAB | | | | + +---------+ + + External Lab: Phosphorus (11/09/2015) + +-------+ + + + | Component | Value | Ref Range | Performed | Pathologist | | | | | At | Signature | + +-------+ + + + | Phosphorus, | 4.1 | 2.3 - 4.8 | EXTERNAL | | | External | | | LAB | | + +-------+ + + + + + | Resulting Agency Comment | + + | [facility] | + + + +---------+ + + | Performing | Address | City/State/Zipcode | Phone Number | | Organization | | | | + +---------+ + + | EXTERNAL LAB | | | | + +---------+ + + External Lab: Calcium (11/09/2015) + +-------+ + + + | Component | Value | Ref Range | Performed | Pathologist | | | | | At | Signature | + +-------+ + + + | Calcium, | 9 | 8.5 - 10.2 | EXTERNAL | | | External | | | LAB | | + +-------+ + + + + + | Resulting Agency Comment | + + | [facility] | + + + +---------+ + + | Performing | Address | City/State/Zipcode | Phone Number | | Organization | | | | + +---------+ + + | EXTERNAL LAB | | | | + +---------+ + + External Lab: Carbon Dioxide (11/09/2015) + +-------+ + + + | Component | Value | Ref Range | Performed | Pathologist | | | | | At | Signature | + +-------+ + + + | Carbon | 24 | 22 - 31 | EXTERNAL | | | Dioxide, | | | LAB | | | External | | | | | + +-------+ + + + + + | Resulting Agency Comment | + + | [facility] | + + + +---------+ + + | Performing | Address | City/State/Zipcode | Phone Number | | Organization | | | | + +---------+ + + | EXTERNAL LAB | | | | + +---------+ + + External Lab: Chloride (11/09/2015) + +---------+ + + + | Component | Value | Ref Range | Performed | Pathologist | | | | | At | Signature | + +---------+ + + + | Chloride, | 112 (A) | 99 - 109 | EXTERNAL | | | External | | | LAB | | + +---------+ + + + + + | Resulting Agency Comment | + + | [facility] | + + + +---------+ + + | Performing | Address | City/State/Zipcode | Phone Number | | Organization | | | | + +---------+ + + | EXTERNAL LAB | | | | + +---------+ + + External Lab: Potassium (11/09/2015) + +---------+ + + + | Component | Value | Ref Range | Performed | Pathologist | | | | | At | Signature | + +---------+ + + + | Potassium, | 5.4 (A) | 3.5 - 5.3 | EXTERNAL | | | External | | | LAB | | + +---------+ + + + + + | Resulting Agency Comment | + + | [facility] | + + + +---------+ + + | Performing | Address | City/State/Zipcode | Phone Number | | Organization | | | | + +---------+ + + | EXTERNAL LAB | | | | + +---------+ + + External Lab: Sodium (11/09/2015) + +-------+ + + + | Component | Value | Ref Range | Performed | Pathologist | | | | | At | Signature | + +-------+ + + + | Sodium, | 141 | 135 - 145 | EXTERNAL | | | External | | | LAB | | + +-------+ + + + + + | Resulting Agency Comment | + + | [facility] | + + + +---------+ + + | Performing | Address | City/State/Zipcode | Phone Number | | Organization | | | | + +---------+ + + | EXTERNAL LAB | | | | + +---------+ + + External Lab: eGFR (11/09/2015) + +-------+ + + + | Component | Value | Ref Range | Performed | Pathologist | | | | | At | Signature | + +-------+ + + + | eGFR, | 53 | | EXTERNAL | | | External | | | LAB | | + +-------+ + + + + + | Specimen | + + | Blood specimen | | (specimen) | + + + + | Resulting Agency Comment | + + | [facility] | + + + +---------+ + + | Performing | Address | City/State/Zipcode | Phone Number | | Organization | | | | + +---------+ + + | EXTERNAL LAB | | | | + +---------+ + + External Lab: Creatinine (11/09/2015) + + + + + + | Component | Value | Ref Range | Performed | Pathologist | | | | | At | Signature | + + + + + + | Creatinine, | 1.24 (A) | 0.5 - 1 | EXTERNAL | | | External | | | LAB | | + + + + + + + + | Specimen | + + | Blood specimen | | (specimen) | + + + + | Resulting Agency Comment | + + | [facility] | + + + +---------+ + + | Performing | Address | City/State/Zipcode | Phone Number | | Organization | | | | + +---------+ + + | EXTERNAL LAB | | | | + +---------+ + + documented in this encounter Visit Diagnoses Not on filedocumented in this encounter"
--- OUTSIDE RECORDS SUMMARY | ~2019-11-09 | XMS | Encounter Summary ---
Demographics + + + | Address | [address] | | | [place] [address] | + + + | Home Phone | | + + + | Preferred Language | Unknown | + + + | Marital Status | Single | + + + | Taoism Affiliation | Unknown | + + + [...] Providers + +------+ + | Care Field Inspector Name | Role | Phone | + [...] | | | | to pollen | [place] [address] | [address] Phone: | | | | | Allergic | Phone: | [phone] | | | | | rhinitis due | [phone] | Fax: | | | | | to dust | Fax: | [phone] | | | | | Mild | [phone] | | | | | | intermittent | | | | | | | asthma, | | | | | | | uncomplicate | | | | | | | d | | | | | | | Procedures | | | | | | | [place] | | | | | | | IMMUNOTHERAP | | | | | | | Y, ONE | | | | | | | INJECTION | | | | | | | [place] PROFES | | | | | | | SVC,IMMUNOTH | | | | | | | ER,SINGLE/MU | | | | | | | LT AGS | | | +--------+ + + + + + Encounter Details +--------+ + + + + | Date | Type | Department | Care Team | Description | +--------+ + + + + | 03/11/ | Clinical | [facility] | Henok Luther MD | Extrinsic asthma, | | 2019 | Support | [address]ARYNGOLOGY [address] | [address] | unspecified asthma | | | | [address] | [address] [place] | severity, | | | | [place] | [address] | unspecified whether | | | | [address] | | complicated, | | | | [phone] | | unspecified whether | | | | | | persistent (Primary | | | | | | Dx); Allergic | | | | | | rhinitis due to dust | | | | | | mite; Non-seasonal | | | | | | [...] encounter Progress Notes Domenica Meredith RN - 03/11/2018 4:15 PM PSTPatient presents with epi-pen & inhaler. No ac tive wheezing or cough associated with asthma today. Denies delayed reaction from previous a llergy injection. No fever or allergy related rash. No recent heavy exposure to allergens. N o plans for strenuous exercise immediately before or after injection today.Electronically si gned by Domenica Meredith RN at 03/11/2018 4:19 PM PSTdocumented in this encounter Plan of [...] [place] | | | | | | [address] | | | | | | | | +--------+ + + + + | 05/22/ | Office | Nephrology | Mariana Cortez, | | | 2020 | Visit | | MD [address] | | | | | | [address] [place] | | | | | | [place] [address] | | | | | | [phone] | | | | | | | | +--------+ + + + + documented as of this encounter Visit Diagnoses + + | Diagnosis | + + | Extrinsic asthma, unspecified asthma severity, unspecified whether complicated, | | unspecified whether persistent - Primary | + + | Allergic rhinitis due to dust mite | + + | Non-seasonal allergic rhinitis due to pollen | + + | Allergic rhinitis due to animal (cat) (dog) hair and dander | + + documented in this encounter"
--- OUTSIDE RECORDS SUMMARY | ~2019-11-09 | XMS | Encounter Summary ---
Demographics + + + | Address | [address] | | | [place] [address] | + + + | Home Phone [...] Author + + + | Author | [facility] | | | and [place] | + + + | Organization | [facility] | [...] Team Providers + +------+ + | Care Gas Station Operator Name | Role | Phone | [...] + + | Closed | Specialty | Cardiology | Diagnoses | [place], | [facility] | | | Services | | Deviated | Henok Calix MD | HOSPITAL | | | Required | | nasal septum | [address] | [address] | | | | | Hypertrophy | [place], | [place], [place] | | | | | of nasal | [place] [address] | [address] | | | | | turbinates | Phone: | Phone: | | | | | Allergic | [phone] | [phone] | | | | | rhinitis due | Fax: | Fax: | | | | | to pollen, | [phone] | [phone] | | | | | unspecified | | | | | | | chronicity, | | | | | | | unspecified | | | | | | | seasonality | | | | | | | Procedures | | | | | | | ECG 12 LEAD | | | | | | | MA | | | | | | | ELECTROCARDI | | | | | | | OGRAM, | | | | | | | COMPLETE | | | | | | | 02/20 URGENT | | | | | | | YH EKG AUTH | | | | | | | PENDING JSK | | | +--------+ + + + + + Encounter Details +--------+ + + + + | Date | Type | Department | Care Team | Description | +--------+ + + + + | 02/20/ | Orders Only | [facility] [place] | Henok Luther MD | Deviated nasal | | 2018 | | OTOLARYNGOLOGY [address] | [address] | septum (Primary Dx); | | | | [address] | [address] [place], [place] | Hypertrophy of | | | | [place], [place] | [id number] | nasal turbinates; | | | | [address] | | Allergic rhinitis | | | | [phone] | | due to pollen, | | | | | | unspecified | | | | | | chronicity, | | | | | | unspecified | | | | | | seasonality | +--------+ + + + + Social [...] [place] | | | | | | [address] | | | | | | | | +--------+ + + + + | 01/17/ | Office | Vascular Surgery | Bill Arevalo DNP | | | 2019 | Visit | | [address] | | | | | | [address] [address] [place] | | | | | | [address] | | | | | | | | +--------+ + + + + | 05/22/ | Office | Nephrology | Mariana Cortez, | | | 2020 | Visit | | MD [address] | | | | | | [address] [place] | | | | | | [place] [id number] | | | | | | [phone] | | | | | | | | +--------+ + + + + + + +--------+ + + | Name | Type | Priori | Associated Diagnoses | Order Schedule | | | | ty | | | + + +--------+ + + | Cardiology, External | Outpatient | Routin | Deviated nasal | Ordered: 02/20/2017 | | - AMB Referral | Referral | e | septum Hypertrophy | | | | | | of nasal turbinates | | | | | | Allergic rhinitis | | | | | | due to pollen, | | | | | | unspecified | | | | | | chronicity, | | | | | | unspecified | | | | | | seasonality | | + + +--------+ + + documented as of this encounter Visit Diagnoses + + | Diagnosis | + + | Deviated nasal septum - Primary | + + | Hypertrophy of nasal turbinates | + + | Allergic rhinitis due to pollen, unspecified chronicity, unspecified seasonality | + + documented in this encounter"
--- OUTSIDE RECORDS SUMMARY | ~2019-11-09 | XMS | Encounter Summary ---
Demographics + + + | Address | [address] | | | [place] [address] | + + + | Home Phone | | + + + | Preferred Language | Unknown | + + + | Marital Status | Single | + + + | Church Affiliation | Unknown | + + + [...] Team Providers + +------+ + | Care Customer Greeter Name | Role | Phone | + +------+ + PCP | Unavailable | + +------+ + Encounter Details +--------+ + + + + | Date | Type | Department | Care Team | Description | +--------+ + + + + | 01/05/ | Orders Only | [facility] [place] | Mariana Cortez W, | CKD (chronic kidney | | 2012 | | NEPHROLOGY [address] | [address] | disease) stage 2, | | | | [address] | [address] [place] | GFR 60-89 ml/min | | | | [place] | [place] [address] | (Primary Dx) | | | | [address] | [phone] | | | | | [phone] | | | +--------+ + + + [...] [place] | | | | | | [address] | | | | | | | | +--------+ + + + + | 01/17/ | Office | Vascular Surgery | Bill Arevalo DNP | | | 2019 | Visit | | [address] | | | | | | [place] | | | | | | [address] | | | | | | | | +--------+ + + + + | 05/22/ | Office | Nephrology | Mariana Cortez, | | | 2020 | Visit | | [address] | | | | | | [address] [place] | | | | | | [place] [address] | | | | | | [phone] | | | | | | | | +--------+ + + + + + +------+--------+ + + | Name | Type | Priori | Associated Diagnoses | Order Schedule | | | | ty | | | + +------+--------+ + + | Renal Function Panel | Lab | Routin | CKD (chronic | Expected: 01/11/2013 | | | | e | kidney disease) | (Approximate), | | | | | stage 2, GFR 60-89 | Expires: 01/05/2014 | | | | | ml/min | | + +------+--------+ + + documented as of this encounter Visit Diagnoses + + | Diagnosis | + + | CKD (chronic kidney disease) stage 2, GFR 60-89 ml/min - Primary Chronic kidney | | disease, Stage II (mild) | + + documented in this encounter"
--- OUTSIDE RECORDS SUMMARY | ~2019-11-09 | XMS | Encounter Summary ---
Demographics + + + | Address | [address] | | | [place] [address] | + + + | Home Phone [...] Team Providers + +------+ + | Care Body Masker Name | Role | Phone | + [...] | | | | severity, | [place] [address] | [address] Phone: | | | | | uncomplicate | Phone: | [phone] | | | | | d | [phone] | Fax: | | | | | Non-seasonal | Fax: | [phone] | | | | | allergic | [phone] | | | | | | rhinitis due | | | | | | | to pollen | | | | | | | Procedures | | | | | | | [place] | | | | | | | IMMUNOTHERAP | | | | | | | Y, ONE | | | | | | | INJECTION | | | | | | | [place] | | | | | | | IMMUNOTHERAP | | | | | | | Y, 2+ | | | | | | | INJECTIONS | | | | | | | [place] PROFES | | | | | | [...] | +--------+ + + + + | 08/28/ | Clinical | [facility] [place] | Henok Luther MD | Non-seasonal | | 2017 | Support | OT[address]ARYNGOLOGY [address] | [address] | allergic rhinitis | | | | [address] | [address] [place] | due to pollen | | | | [place], [place] | [address] | (Primary Dx); | | | | [address] | | Allergic rhinitis | | | | [phone] | | due to animal (cat) | [...] encounter Progress Notes Domenica Meredith RN - 08/28/2016 4:15 PM PDTFormatting of this note might [...] Mixed immunotherapy treatment vial for patient on 08/28/16. TREATMENT SET [facility] Molds, Insects & Feathers: 88 08/28/2016 Allergen Extract Amount/ml Dilution Lot # Expiration Date Alternaria Aspergillus Cladosporium Penicillium Bipolaris Sorok. 0.1 C [id number] 08/04/19 Pullulans 0.1 C [id number] 12/31/18 Mucor 0.1 C [id number] 05/13/19 Phoma Rhodotorula 0.1 C 271345 06/11/19 Fusarium Paecilomyces Grain Smut 0.1 C 940514 12/31/18 Grass Smut 0.1 C [id number] 06/11/19 Am. Cockroach 0.1 C 928126 06/11/19 Mixed Feathers 0.1 C 972115 10/22/18 Total Allergens : 0.8 mL Saline: 1.7 mL Total Volume : 2.5 mL documented in this encounter Plan of Treatment +--------+ + + + + | Date | Type | Specialty | Care Team | Description | +--------+ + + + + | 01/17/ | Appointment | Radiology | Bill Arevalo, [facility] | | | 2019 | | | [address] | | | | | | [place] | | | | | | [address] | | | | | | | | +--------+ + + + + | 01/17/ | Office | Vascular Surgery | Bill Arevalo DNP | | | 2019 | Visit | | [address] | | | | | | [place] | | | | | | [address] | | | | | | | | +--------+ + + + + | 05/22/ | Office | Nephrology | Mariana Cortez W, | | | 2020 | Visit | | [address] | | | | | | [address] [place] | | | | | | [place] [address] | | | | | | [phone] | | | | | | | | +--------+ + + + + +-------+ +--------+ + + | Name | Type | Priori | Associated Diagnoses | Order Schedule | | | | ty | | | +-------+ +--------+ + + | Vials | Procedures | Routin | Non-seasonal | Ordered: 08/28/2016 | | | | e | allergic rhinitis | | [...] | | | | | | mite Extrinsic | | | | | | asthma, unspecified | | +-------+ +--------+ + + documented [...]
--- OUTSIDE RECORDS SUMMARY | ~2019-11-09 | XMS | Encounter Summary ---
Demographics + + + | Address | [address] | | | [place] [address] | + + + | Home Phone [...] Team Providers + +------+ + | Care Funeral Pre Need Consultant Name | Role | Phone | + +------+ + | Mehrdad Avalos MD | PCP | | + +------+ + Reason for Visit +---------+ + | Reason | Comments | +---------+ + | Results | CMP CBC, CRP, ESR | +---------+ + Encounter Details +--------+ + + + + | Date | Type | Department | Care Team | Description | +--------+ + + + + | 08/16/ | Documentati | [facility] | Louie [place], | Results (CMP CBC, | | 2020 | on | INFECTIOUS DISEASE | Carmine Kebede MD | CRP, ESR) | | | | [address] | [address] | | | | | [place], [place] | [place] [address] | | | | | [address] | [phone] | | | | | [phone] | | | +--------+ + + + [...] documented as of this encounter Progress Notes Joanna Alfonso, Salvage Mechanic - 08/17/2019 10:45 AM PDTReceived Labs from [facility]. CB C, CMP, ESR, CRP abstracted into Epic and sent to [facility]. Joanna Alfonso. CMAElectronically benny d by Joanna Alfonso, Salvage Mechanic at 08/17/2019 10:59 AM PDTdocumented in this encounter Plan of Treatment +--------+ + + + + | Date | Type | Specialty | Care Team | Description | +--------+ + + + + | 01/17/ | Appointment | Radiology | Bill Arevalo DNP | | 2019 | | | [address] | | | | | | [place], [place] | | | | | | [id number] | | | | | | | | +--------+ + + + + | 01/17/ | Office | Vascular Surgery | Bill Arevalo DNP | | | 2019 | Visit | | [address] | | | | | | [address] [address] [place] | | | | | | [address] | | | | | | | | +--------+ + + + + | 05/22/ | Office | Nephrology | Mariana Cortez, | | | 2020 | Visit | | MD [address] | | | | | | [address] [place] | | | | | | [place] [address] | | | | | | [phone] | | | | | | | | +--------+ + + + + documented as of this encounter Procedures + +--------+ + + + | Procedure Name | Priori | Date/Time | Associated Diagnosis | Comments | | | ty | | | | + +--------+ + + + | SEDIMENTATION RATE | Routin | 08/16/2019 | | Results for this | | | e | 4:00 PM | | procedure are in the | | | | PDT | | results section. | + +--------+ + + + | CBC WITH | Routin | 08/16/2019 | | Results for this | | DIFFERENTIAL | e | 4:00 PM | | procedure are in the | | | | PDT | | results section. | + +--------+ + + + | C-REACTIVE PROTEIN | Routin | 08/16/2019 | | Results for this | | | e | 4:00 PM | | procedure are in the | | | | PDT | | results section. | + +--------+ + + + | COMPREHENSIVE | Routin | 08/16/2019 | | Results for this | | METABOLIC PANEL | e | 4:00 PM | | procedure are in the | | | | PDT | | results section. | + +--------+ + + + documented in this encounter Results CBC with Differential (08/16/2019 4:00 PM PDT) + + + + + + | Component | Value | Ref Range | Performed | Pathologist | | | | | At | Signature | + + + + + + | WBC | 10.0 | 4.5 - 11.0 K/uL | EXTERNAL | | | | | | LAB | | + + + + + + | RBC COUNT. | 1.75 (A) | 3.8 - 5.1 M/uL | EXTERNAL | | | | | | LAB | | + + + + + + | Hemoglobin | 5.4 (A) | 12.0 - 16.0 | EXTERNAL | | | | | g/dL | LAB | | + + + + + + | Hct | 16.9 (A) | 35 - 45 % | EXTERNAL | | | | | | LAB | | + + + + + + | MCV | 98.5 | 81 - 99 fl | EXTERNAL | | | | | | LAB | | + + + + + + | RDW | 15.4 (A) | 10.56 - 15.0 % | EXTERNAL | | | | | | LAB | | + + + + + + | MCH | 31 | 27 - 33 pg | EXTERNAL | | | | | | LAB | | + + + + + + | MCHC | 32 | 30 - 36 g/dL | EXTERNAL | | | | | | LAB | | + + + + + + | Platelet | 468 (A) | 140 - 440 K/uL | EXTERNAL | | | Count | | | LAB | | + + + + + + | NEUTROPHILS | 78.6 | 39 - 80 % | EXTERNAL | | | BL | | | LAB | | + + + + + + | LYMPHOCYTES | 11.6 (A) | 24 - 44 % | EXTERNAL | | | BL | | | LAB | | + + + + + + | Monocyte % | 6.3 | 0 - 12 % | EXTERNAL | | | | | | LAB | | + + + + + + | EOSINOPHILS | 2.7 | 0 - 6 % | EXTERNAL | | | BL | | | LAB | | + + + + + + | Basophils % | 1.3 | 0 - 2 % | EXTERNAL | | | | [...] + +---------+ + + Comprehensive Metabolic Panel (08/16/2019 4:00 PM PDT) + + + + + + | Component | Value | Ref Range | Performed | Pathologist | | | | | At | Signature | + + + + + + | Na | 137 | 132 - 143 | EXTERNAL | | | | | mmol/L | LAB | | + + + + + + | K | 5.7 (A) | 3.6 - 5.1 | EXTERNAL | | | | | mmol/L | LAB | | + + + + + + | Cl | 102 | 95 - 112 mmol/L | EXTERNAL | | | | | | LAB | | + + + + + + | CO2 | 22 | 19 - 31 mmol/L | EXTERNAL | | | | | | LAB | | + + + + + + | Anion Gap | 19 | 7 - 21 mmol/L | EXTERNAL | | | | | | LAB | | + + + + + + | Glucose | 400 (A) | 70 - 100 mg/dL | EXTERNAL | | | | | | LAB | | + + + + + + | BUN | 56 (A) | 6 - 23 mg/dL | EXTERNAL | | | | | | LAB | | + + + + + + | CREATININE | 2.21 (A) | 0.60 - 1.35 | EXTERNAL | | | (PAML) | | mg/dL | LAB | | + + + + + + | GFR | 24 (A) | 60 ml/min | EXTERNAL | | | ESTIMATE | | | LAB | | | (REF) | | | | | + + + + + + | BUN/Creatin | 25.3 | 6.0 - 28.6 | EXTERNAL | | | ine Ratio | | | LAB | | + + + + + + | Calcium | 8.0 (A) | 8.5 - 10.3 | EXTERNAL | | | | | mg/dL | LAB | | + + + + + + | AST | 11 (A) | 13 - 39 U/L | EXTERNAL | | | | | | LAB | | + + + + + + | ALT | 14 | 7 - 52 U/L | EXTERNAL | | | | | | LAB | | + + + + + + | Alkaline | 89 | 31 - 130 U/L | EXTERNAL | | | Phosphatase | | | LAB | | + + + + + + | Bilirubin, | 0.2 | 0.0 - 1.2 mg/dL | EXTERNAL | | | Total | | | LAB | | + + + + + + | Total | 6.4 | 6.0 - 8.3 g/dL | EXTERNAL | | | Protein | | | LAB | | + + + + + + | Albumin | 3.0 (A) | 3.5 - 5.0 g/dL | EXTERNAL | | | | | | LAB | | + + + + + + | Globulin | 3.4 | 1.8 - 3.5 g/dL | EXTERNAL | | | | | | LAB | | + + + + + + | A/G Ratio | 0.9 (A) | 1.1 - 2.4 | EXTERNAL | | | | | [...] | + +---------+ + + Sedimentation Rate (08/16/2019 4:00 PM PDT) + +---------+ + + + | Component | Value | Ref Range | Performed | Pathologist | | | | | At | Signature | + +---------+ + + + | Erythrocyte | 150 (A) | 0 - 20 mm/hr | EXTERNAL | | | | | | LAB | | | Sedimentati | | | | | | on Rate | | | | | + +---------+ + + + + + | Specimen | + + | Blood | + + + +---------+ + + | Performing | Address | City/State/Zipcode | Phone Number | | Organization | | | | + +---------+ + + | EXTERNAL LAB | | | | + +---------+ + + C-Reactive Protein (08/16/2019 4:00 PM PDT) + + + + + + | Component | Value | Ref Range | Performed | Pathologist | | | | | At | Signature | + + + + + + | CRP | 40.2 (A) | 0 - 5 mg/L | [...]
--- OUTSIDE RECORDS SUMMARY | ~2019-11-09 | XMS | Encounter Summary ---
Demographics + + + | Address | [address] | | | [place] [address] | + + + | Home Phone [...] Team Providers + +------+ + | Care Ed Tech Name | Role | Phone | + +------+ + PCP | Unavailable | + +------+ + Encounter Details +--------+ + + + + | Date | Type | Department | Care Team | Description | +--------+ + + + + | 11/10/ | Abstract | [facility] [place] | Mariana Cortez W, | | | 2012 | | NEPHROLOGY [address] | MD [address] | | | | | [address] | [address] [place] | | | | | [place], [place] | [place] [address] | | | | | [address] | [phone] | | | | | [phone] | | | +--------+ + + + [...] [place] | | | | | | [address] | | | | | | | | +--------+ + + + + | 01/17/ | Office | Vascular Surgery | Bill Arevalo DNP | | | 2019 | Visit | | [address] | | | | | | [place] | | | | | | [address] | | | | | | | | +--------+ + + + + | 05/22/ | Office | Nephrology | Mariana Cortez W, | | | 2020 | Visit | | [address] | | | | | | [address] [place] | | | | | | [place] [address] | | | | | | [phone] | | | | | | | | +--------+ + + + + documented as of this encounter Procedures + +--------+ + + + | Procedure Name | Priori | Date/Time | Associated Diagnosis | Comments | | | ty | | | | + +--------+ + + + | VITAMIN D, | Routin | 11/04/2012 | | Results for this | | DEFICIENCY SCREEN | e | | | procedure are in the | | (25-HYDROXY) | | | | results section. | + +--------+ + + + documented in this encounter Results Vitamin D, 25-Hydroxy (11/04/2012) + +-------+ + + + | Component | Value | Ref Range | Performed | Pathologist | | | | | At | Signature | + +-------+ + + + | Vit D, | 25 | | [facility] | | | 25-Hydroxy | | | [facility] | | [facility] | | | [facility] - | | | | | | LABORATORY | | + +-------+ + + + + + | Specimen | + + | Blood specimen | | (specimen) | + + + + + + + | Performing | Address | City/State/Zipcode | Phone Number | | Organization | | | | + + + + + | [facility] | [address] | [place] | [phone] | | [facility] | | [address] | | | - LABORATORY | | | | + + + + + | [facility] | [address] | [place] | | | [facility] | | [id number] | | | - LABORATORY | | | | + + + + + documented in this encounter Visit Diagnoses Not on filedocumented in this encounter"
--- OUTSIDE RECORDS SUMMARY | ~2019-11-09 | XMS | Encounter Summary ---
Demographics + + + | Address | [address] | | | [place] [address] | + + + | Home Phone | | + + + | Preferred Language | Unknown | + + + | Marital Status | Single | + + + | Taoist Affiliation | Unknown | + + + | Race | or | + + + | Ethnic Group | Not or | + + + Author + + + | Author | [facility] | | | and [place] | + + + | Organization | [facility] | | | and [...] Providers + +------+ + | Care Field Sales Associate Name | Role | Phone | + +------+ + | Ronel Jacobson PA-C PCP | | + +------+ + Reason for Visit +--------+--------+ + | Reason | Onset | Comments | | | Date | | +--------+--------+ + | Other | 06/24/ | | | | 2016 | | +--------+--------+ + Encounter Details +--------+ + + + + | Date | Type | Department | Care Team | Description | +--------+ + + + + | 06/24/ | Telephone | [facility] | Henok Luther MD | Other | | 2016 | | OTOLARYNGOLOGY [address] | [address] [place] [address] | | | | | [address] [facility] [address] | [address] [place] | | | | | [place] | [address] | | | | | [address] | | | | | | [phone] | | | +--------+ + + + [...] Miscellaneous Notes Telephone Encounter - Marguerite Rangel Patient Support Partner - 06/25/2016 10:03 AM PDTAndre perez this has already been taken care of. elephone Encounter - Dodie Trammell - 06/24/2016 11:1 5 AM PDTPatient called to speak with Dr Luther's clinical staff because "she started an antib iotic and wanted to know if it is still okay for her to come in for her allergy injection sc heduled for tomorrow". Please advise and call her back at [phone]. documented in this encounter Plan of Treatment +--------+ + + + + | Date | Type | Specialty | Care Team | Description | +--------+ + + + + | 01/17/ | Appointment | Radiology | Bill Arevalo DNP | | | 2019 | | | [address] | | | | | | [place] | | | | | | [address] | | | | | | | | +--------+ + + + + | 01/17/ | Office | Vascular Surgery | Bill Arevalo DNP | | | 2019 | Visit | | [address] | | | | | | [place] | | | | | | [address] | | | | | | | | +--------+ + + + + | 05/22/ | Office | Nephrology | Mariana Cortez W, | | | 2020 | Visit | | [address] | | | | | | [address] [place] | | | | | | [place] [address] | | | | | | [phone] | | | | | | | | +--------+ + + + + documented as of this encounter Visit Diagnoses Not on filedocumented in this encounter
--- OUTSIDE RECORDS SUMMARY | ~2019-11-09 | XMS | Encounter Summary ---
Demographics + + + | Address | [address] | | | [place] [address] | + + + | Home Phone | | + + + | Preferred Language | Unknown | + + + | Marital Status | Single | + + + | Spiritism Affiliation | Unknown | + + + [...] Team Providers + +------+ + | Care Technical Research Scientist Name | Role | Phone | + +------+ + | Mehrdad Avalos MD | PCP | | + +------+ + Reason for Visit +---------+ + | Reason | Comments | +---------+ + | Results | 09/06/2019 [facility]- CBC, ESR, CRP, | | | CMP | +---------+ + Encounter Details +--------+ + + + + | Date | Type | Department | Care Team | Description | +--------+ + + + + | 09/07/ | Documentati | [facility] | Louie [place], | Results (09/06/2019 | | 2020 | on | INFECTIOUS DISEASE | Carmine Kebede MD | [facility] | | | | [address] | [address] | [facility] | | | | [place], [place] | [place] [address] | CBC, ESR, CRP, CMP) | | | | [address] | [phone] | | | | | [phone] | | | +--------+ + + + [...] of this encounter Progress Notes Viji Gold Commercial Hvac Service Technician - 09/08/2019 10:40 AM PDTLab: CBC, CMP, ESR, CRP DOS: 09/06/2019 Received from: [facility] Abstracted into Epic and sent to scan: YES Abstracted by: VIJI GOLD CMA docu mented in this encounter Plan of [...] [place] | | | | | | [address] | | | | | | | | +--------+ + + + + | 01/17/ | Office | Vascular Surgery | Bill Arevalo DNP | | | 2019 | Visit | | [address] | | | | | | [place] | | | | | | [address] | | | | | | | | +--------+ + + + + | 05/22/ | Office | Nephrology | Mariana Cortez, | | | 2020 | Visit | | [address] | | | | | | [address] [place] | | | | | | [place] [address] | | | | | | [phone] | | | | | | | | +--------+ + + + + documented as of this encounter Procedures + +--------+ + + + | Procedure Name | Priori | Date/Time | Associated Diagnosis | Comments | | | ty | | | | + +--------+ + + + | SEDIMENTATION RATE | Routin | 09/06/2019 | | Results for this | | | e | 2:03 PM | | procedure are in the | | | | PDT | | results section. | + +--------+ + + + | CBC WITH | Routin | 09/06/2019 | | Results for this | | DIFFERENTIAL | e | 2:03 PM | | procedure are in the | | | | PDT | | results section. | + +--------+ + + + | C-REACTIVE PROTEIN | Routin | 09/06/2019 | | Results for this | | | e | 2:03 PM | | procedure are in the | | | | PDT | | results section. | + +--------+ + + + | COMPREHENSIVE | Routin | 09/06/2019 | | Results for this | | METABOLIC PANEL | e | 2:03 PM | | procedure are in the | | | | PDT | | results section. | + +--------+ + + + documented in this encounter Results C-Reactive Protein (09/06/2019 2:03 PM PDT) + +---------+ + + + | Component | Value | Ref Range | Performed | Pathologist | | | | | At | Signature | + +---------+ + + + | CRP | 5.9 (A) | 0 - 5 mg/L | [...] + +---------+ + + Comprehensive Metabolic Panel (09/06/2019 2:03 PM PDT) + + + + + + | Component | Value | Ref Range | Performed | Pathologist | | | | | At | Signature | + + + + + + | BUN/Creatin | 24.8 | 11.0 - 35.0 | EXTERNAL | | | ine Ratio | | ratio | LAB | | + + + + + + | Glucose | 413 (A) | 65 - 99 mg/dL | EXTERNAL | | | | | | LAB | | + + + + + + | BUN, | 34 (A) | 8 - 25 mg/dL | EXTERNAL | | | External | | | LAB | | + + + + + + | Creatinine | 1.40 (A) | 0.70 - 1.30 | EXTERNAL | | | | | mg/dL | LAB | | + + + + + + | Na | 132 (A) | 135 - 145 | EXTERNAL | | | | | mmol/L | LAB | | + + + + + + | K | 4.9 | 3.5 - 5.3 | EXTERNAL | | | | | mmol/L | LAB | | + + + + + + | CO2 | 21 (A) | 22 - 29 mmol/L | EXTERNAL | | | | | | LAB | | + + + + + + | Calcium | 8.7 | 8.5 - 10.2 | EXTERNAL | | | | | mg/dL | LAB | | + + + + + + | Total | 7.5 | 6.2 - 8.2 g/dL | EXTERNAL | | | Protein | | | LAB | | + + + + + + | Albumin, | 3.6 | 3.5 - 5.2 g/dL | EXTERNAL | | | External | | | LAB | | + + + + + + | Bilirubin | 0.2 | 0.1 - 1.5 mg/dL | EXTERNAL | | | Total | | | LAB | | + + + + + + | AST | 18 | 0 - 40 U/L | EXTERNAL | | | | | | LAB | | + + + + + + | ALT | 21 | 0 - 41 U/L | EXTERNAL | | | | | | LAB | | + + + + + + | ALP, | 137 (A) | 40 - 129 U/L | EXTERNAL | | | External | | | LAB | | + + + + + + | GFR | 42 (A) | 60 | EXTERNAL | | | ESTIMATE | | mL/min/1.73m2 | LAB | | | (REF) | [...] + +---------+ + + CBC with Differential (09/06/2019 2:03 PM PDT) + + + + + + | Component | Value | Ref Range | Performed | Pathologist | | | | | At | Signature | + + + + + + | WBC | 7.87 | 4.0 - 11.0 | EXTERNAL | | | | | x10'3/uL | LAB | | + + + + + + | Red Blood | 3.00 (A) | 3.8 - 5.2 | EXTERNAL | | | Cells | | x10'6/uL | LAB | | + + + + + + | HGB, | 9.08 (A) | 12 - 16 g/dL | EXTERNAL | | | External | | | LAB | | + + + + + + | HCT, | 27.25 (A) | 35 - 45 % | EXTERNAL | | | External | | | LAB | | + + + + + + | MCV | 90.71 | 81 - 99 fL | EXTERNAL | | | | | | LAB | | + + + + + + | MCH | 30.23 | 27 - 33 pg | EXTERNAL | | | | | | LAB | | + + + + + + | MCHC | 33.32 | 30 - 36 g/dL | EXTERNAL | | | | | | LAB | | + + + + + + | RDW | 13.18 | 10.5 - 16.0 % | EXTERNAL | | | | | | LAB | | + + + + + + | PLT, | 337 | 140 - 440 | EXTERNAL | | | External | | x10'3/uL | LAB | | + + + + + + | Lymphocytes | 17.20 (A) | 24 - 44 % | EXTERNAL | | | %, | | | LAB | | | External | | | | | + + + + + + | Neutrophils | 5.83 | 1.3 - 7.0 K/cmm | EXTERNAL | | | , Absolute, | | | LAB | | | External | | | | | + + + + + + | Lymphocytes | 1.35 | 0.8 - 3.1 K/cmm | EXTERNAL | | | , Absolute, | | | LAB | | | External | | | | | + + + + + + | Neutrophils | 74.10 (A) | 37 - 67 % | EXTERNAL | | | %, | | | LAB | | | External | | | | | + + + + + + | Monocytes | 5.40 | 5 - 12 % | EXTERNAL | | | %, External | | | LAB | | + + + + + + | Eosinophils | 3.10 | 0 - 5 % | EXTERNAL | | | %, | | | LAB | | | External | | | | | + + + + + + | Basophils | 0.20 | 0 - 2 % | EXTERNAL | | | %, External | | | LAB | | + + + + + + | Monocytes, | 0.43 | 0.2 - 1.0 K/cmm | EXTERNAL | | | Absolute, | | | LAB | | | External | | | | | + + + + + + | Eosinophils | 0.24 | 0 - 0.8 K/cmm | EXTERNAL [...] | + +---------+ + + Sedimentation Rate (09/06/2019 2:03 PM PDT) + +--------+ + + + | Component | Value | Ref Range | Performed | Pathologist | | | | | At | Signature | + +--------+ + + + | ESR | 98 (A) | 0 - 20 mm/hr | [...]
--- OUTSIDE RECORDS SUMMARY | ~2019-11-09 | XMS | Encounter Summary ---
Demographics + + + | Address | [address] | | | [place] [address] | + + + | Home Phone | | + + + | Preferred Language | Unknown | + + + | Marital Status | Single | + + + | Protestant Affiliation | Unknown | + + + | Race | or | + + + | Ethnic Group | Not or | + + + Author + + + | Author | [facility] | | | and [place] | + + + | Organization | [facility] | | | [...] Team Providers + +------+ + | Care Sharepoint Specialist Name | Role | Phone | [...] | | | | severity, | [place] [address] | [address] Phone: | | | | | uncomplicate | Phone: | [phone] | | | | | d | [phone] | Fax: | | | | | Non-seasonal | Fax: | [phone] | | | | | allergic | [phone] | | | | | | rhinitis due | | | | | | | to pollen | | | | | | | Procedures | | | | | | | OK | | | | | | | IMMUNOTHERAP | | | | | | | Y, ONE | | | | | | | INJECTION | | | | | | | OK | | | | | | | IMMUNOTHERAP | | | | | | | Y, 2+ | | | | | | | INJECTIONS | | | | | | | OK PROFES | | | | | | [...] | +--------+ + + + + | 02/13/ | Clinical | [facility] [place] | Henok Luther MD | Non-seasonal | | 2017 | Support | OTOLARYNGOLOGY [address] | [address] | allergic rhinitis | | | | [address] | [address] [place] | due to pollen | | | | [place] | [address] | (Primary Dx); | | | | [address] | | Allergic rhinitis | | | | [phone] | | due to animal (cat) | [...] encounter Progress Notes Modesta Benitez RN - 02/14/2016 4:13 PM PSTPatient presents with epi-pen & inhaler . No active wheezing or cough associated with asthma today. Denies delayed reaction from pre vious allergy injection. No fever or allergy related rash. No recent heavy exposure to aller gens. No plans for strenuous exercise immediately before or after injection today.Electronic ally signed by Modesta Benitez RN at 02/14/2016 4:43 PM PSTdocumented in this encoun ter Plan [...] [place] | | | | | | [address] | | | | | | | | +--------+ + + + + | 01/17/ | Office | Vascular Surgery | Bill Arevalo DNP | | 2019 | Visit | | [address] | | | | | | [place] | | | | | | [address] | | | | | | | | +--------+ + + + + | 05/22/ | Office | Nephrology | Mariana Cortez, | | | 2020 | Visit | | [address] | | | | | | [address] [facility] | | | | | | [place] [address] | | | | | | [phone] | | | | | | | [...]
--- OUTSIDE RECORDS SUMMARY | ~2019-11-09 | XMS | Encounter Summary ---
Demographics + + + | Address | [address] | | | [place] [address] | + + + | Home Phone [...] Team Providers + +------+ + | Care Last Sorter Name | Role | Phone | + +------+ + | Mehrdad Avalos MD | PCP | | + +------+ + Reason for Visit Diagnostic/Screening (Routine) +--------+--------+ [...] [place] | | | | | | (HCC) | [address] | | | | | | Procedures | Phone: | | | | | | VAS Lower | [phone] | | | | | | Extremity | Fax: | | | | | | Arteries | [phone] | | | | | | Right VAS | | | | | | | Lwr Ext Art | | | | | | | Rt w BRETT | | | | | | | Multi Lvl | | | +--------+--------+ + + + + Encounter Details +--------+ + + + + | Date | Type | Department | Care Team | Description | +--------+ + + + + | 10/19/ | Hospital | [facility] | | PAD (peripheral | | 2020 | Encounter | VASCULAR SURGERY | | artery disease) | | | | ULTRASOUND [address] | | ([facility]) | | | | [address] | | | | | | [place], [place] | | | | | | [address] | | | | | | [phone] | | | +--------+ + + + [...] + + +---------+ + + | [employer] [facility] | | | 0 | 09/09/19 | [...] [place] | | | | | | [address] | | | | | | | | +--------+ + + + + | 01/17/ | Office | Vascular Surgery | Bill Arevalo DNP | | | 2019 | Visit | | [address] | | | | | | [place] | | | | | | [address] | | | | | | | | +--------+ + + + + | 05/22/ | Office | Nephrology | Mariana Cortez, | | | 2020 | Visit | | MD [address] | | | | | | [address] [place] | | | | | | [place] [address] | | | | | | [phone] | | | | | | | | +--------+ + + + + documented as of this encounter Procedures + +--------+ + + + | Procedure Name | Priori | Date/Time | Associated Diagnosis | Comments | | | ty | | | | + +--------+ + + + | VAS LOWER EXTREMITY | Routin | 10/20/2019 | PAD (peripheral | Results for this | | ARTERIES RIGHT | e | 10:26 AM | artery disease) | procedure are in the | | | | PDT | ([facility]) | results section. | + +--------+ + + + | LABS - EXTERNAL SCAN | | 07/29/2019 | | Results for this | | | | 12:00 AM | | procedure are in the | | | | PDT | | results section. | + +--------+ + + + documented in this encounter Results VAS Lower Extremity Arteries Right (10/20/2019 10:26 AM PDT) + + | Specimen | + + | | + + + + + | Impressions | Performed At | + + + | 1. Triphasic right leg arterial waveforms throughout. 2. Patent | [facility] | | anterior tibial artery-dorsalis pedis artery bypass graft. 3. Nearing | | | 2 fold velocity increase at the proximal and distal anastomoses, | | | however this may be due to caliber change. 4. Avascular hypoechoic | | | complex cystic structure near the mid lateral calf incision measuring | | | 6.5 x 1.9 x 0.9 cm, perhaps due to hematoma. No internal or | | | peripheral color flow is seen to suggest abscess. Final | | | Report Signed by: Darleen Phillip Shawn Sign Date/Time: 10/20/2019 3:28 | | | PM | | + + + + + + | Narrative | Performed At | + + + | VAS LOWER EXTREMITY ARTERIES RIGHT CLINICAL INFORMATION: | [facility] | | Peripheral arterial disease. COMPARISON: IR ANGIOGRAM LOWER | | | EXTREMITY RIGHT (09/28/2019); VAS LOWER EXTREMITY ARTERIES RIGHT | | | (09/14/2019); US LOWER EXTREMITY VENOUS DOPPLER BILAT (11/18/2012); | | | PROCEDURE: Duplex and color Doppler evaluation of the arteries of | | | the right lower extremity including spectral analysis. FINDINGS: | | | Vessel, peak systolic velocity in cm/sec, waveform analysis: | | | Right lower extremity: SPECIAL PROCEDURES NURSE prox: 66, triphasic DFA prox: 31, | | | triphasic SFA prox: 97, triphasic SFA mid: 102, triphasic SFA dist: | | | 94, triphasic Pop mid: 90, triphasic CORY prox: 145, triphasic | | | Right anterior tibial artery-dorsalis pedis artery bypass graft | | | 10/04/2019: Inflow: 168 Prox anast: 300, ratio 1.8 Prox graft: 121, | | | 0.4 Mid graft: 77, 0.6 Distal graft: 46, 0.6 Distal anast: 68, 1.5 | | | Outflow: 127, 1.9 | | + + + + + | Procedure Note | + + | Aniket, [id number] - 10/20/2019 3:32 PM PDT | | VAS LOWER EXTREMITY ARTERIES RIGHT | | | | CLINICAL INFORMATION: | | Peripheral arterial disease. | | | | COMPARISON: | | IR ANGIOGRAM LOWER EXTREMITY RIGHT (09/28/2019); VAS LOWER EXTREMITY | | ARTERIES RIGHT (09/14/2019); US LOWER EXTREMITY VENOUS DOPPLER BILAT | | (11/18/2012); | | | | PROCEDURE: | | Duplex and color Doppler evaluation of the arteries of the right lower | | extremity including spectral analysis. | | | | FINDINGS: | | Vessel, peak systolic velocity in cm/sec, waveform analysis: | | | | Right lower extremity: | | SPECIAL PROCEDURES NURSE prox: 66, triphasic | | DFA prox: 31, triphasic | | SFA prox: 97, triphasic | | SFA mid: 102, triphasic | | SFA dist: 94, triphasic | | Pop mid: 90, triphasic | | CORY prox: 145, triphasic | | | | Right anterior tibial artery-dorsalis pedis artery bypass graft | | 10/04/2019: | | Inflow: 168 | | Prox anast: 300, ratio 1.8 | | Prox graft: 121, 0.4 | | Mid graft: 77, 0.6 | | Distal graft: 46, 0.6 | | Distal anast: 68, 1.5 | | Outflow: 127, 1.9 | | | | IMPRESSION: | | 1. Triphasic right leg arterial waveforms throughout. | | 2. Patent anterior tibial artery-dorsalis pedis artery bypass graft. | | 3. Nearing 2 fold velocity increase at the proximal and distal | | anastomoses, however this may be due to caliber change. | | 4. Avascular hypoechoic complex cystic structure near the mid lateral | | calf incision measuring 6.5 x 1.9 x 0.9 cm, perhaps due to hematoma. | | No internal or peripheral color flow is seen to suggest abscess. | | | | | | | | Final Report Signed by: Darelen Phillip Shawn | | Sign Date/Time: 10/20/2019 3:28 PM | + + + +---------+ + + | Performing | Address | City/State/Zipcode | Phone Number | | Organization | | | | + +---------+ + + | [facility] | | | | + +---------+ + + LABS - EXTERNAL SCAN (07/29/2019 12:00 AM PDT) + + + | [...]
--- OUTSIDE RECORDS SUMMARY | ~2019-11-09 | XMS | Encounter Summary ---
Demographics + + + | Address | [address] | | | [place] [address] | + + + | Home Phone [...] Author + + + | Author | [facility] | | | and [place] | + + + | Organization | [facility] | | | [...] Team Providers + +------+ + | Care Dry Finisher Name | Role | Phone | + [...] | | | | severity, | [place] [address] | [address] Phone: | | | | | uncomplicate | Phone: | [phone] | | | | | d | [phone] | Fax: | | | | | Non-seasonal | Fax: | [phone] | | | | | allergic | [phone] | | | | | | rhinitis due | | | | | | | to pollen | | | | | | | Procedures | | | | | | | [place] | | | | | | | IMMUNOTHERAP | | | | | | | Y, ONE | | | | | | | INJECTION | | | | | | | [place] | | | | | | | IMMUNOTHERAP | | | | | | | Y, 2+ | | | | | | | INJECTIONS | | | | | | | [place] PROFES | | | | | | [...] | +--------+ + + + + | 05/14/ | Clinical | [facility] [place] | Henok Luther MD | Non-seasonal | | 2017 | Support | [address]ARYNGOLOGY [address] | [address] | allergic rhinitis | | | | [address] | [address] [place] | due to pollen | | | | [place], [place] | [address] | (Primary Dx); | | | | [address] | | Allergic rhinitis | | | | [phone] | | due to animal (cat) | | | | | | (dog) hair and | | | | | | dander; Allergic | | | | | | rhinitis due to dust | | | | | | mite; Asthmatic | | | | | | bronchitis, | | | | | | unspecified [...] encounter Progress Notes Narda Lay RN - 05/14/2016 4:14 PM PDTPatient presents with epi-pen & inhaler. [...] [place] | | | | | | [address] | | | | | | | | +--------+ + + + + | 01/17/ | Office | Vascular Surgery | Bill Arevalo DNP | | | 2019 | Visit | | [address] | | | | | | [place] | | | | | | [address] | | | | | | | | +--------+ + + + + | 05/22/ | Office | Nephrology | Mariana Cortez, | | | 2020 | Visit | | [address] | | | | | | [address] [place] | | | | | | [place] [address] | | | | | | [phone] | | | | | | | [...] to dust mite | + + | Asthmatic bronchitis, unspecified asthma severity, uncomplicated | + + documented in this encounter"
--- OUTSIDE RECORDS SUMMARY | ~2019-11-09 | XMS | Encounter Summary ---
Demographics + + + | Address | [address] | | | [place] [address] | + + + | Home Phone [...] Author + + + | Author | [facility] | | | and [place] | + + + | Organization | [facility] | | | [...] Team Providers + +------+ + | Care Instructor Decorating Name | Role | Phone | + +------+ + PCP | Unavailable | + +------+ + Encounter Details +--------+ + + + + | Date | Type | Department | Care Team | Description | +--------+ + + + + | 10/06/ | Abstract | [facility] [place] | Mariana Cortez W, | | | 2012 | | NEPHROLOGY [address] | MD [address] | | | | | [address] | [address] [place] | | | | | [place], [place] | [place] [address] | | | | | [address] | [phone] | | | | | [phone] | | | +--------+ + + + + Social History + +-------+ +--------+------+ | Tobacco Use | Types | Packs/Day | Years | Date | | | | | Used | | + +-------+ +--------+------+ | Current Every Day | | | | | | Smoker | | | | | + +-------+ +--------+------+ + + +---------+ + | Alcohol Use [...] [place] | | | | | | [address] | | | | | | | | +--------+ + + + + | 01/17/ | Office | Vascular Surgery | Bill Arevalo DNP | | | 2019 | Visit | | [address] | | | | | | [place] | | | | | | [address] | | | | | | | | +--------+ + + + + | 05/22/ | Office | Nephrology | Mariana Cortez, | | | 2020 | Visit | | MD [address] | | | | | | [address] [place] | | | | | | [place] [address] | | | | | | [phone] | | | | | | | | +--------+ + + + + documented as of this encounter Procedures + +--------+ + + + | Procedure Name | Priori | Date/Time | Associated Diagnosis | Comments | | | ty | | | | + +--------+ + + + | CBC W/AUTO | Routin | 10/06/2012 | | Results for this | | DIFFERENTIAL | e | | | procedure are in the | | | | | | results section. | + +--------+ + + + documented in this encounter Results CBC w/ Auto Differential (10/06/2012) + +-------+ + + + | Component | Value | Ref Range | Performed | Pathologist | | | | | At | Signature | + +-------+ + + + | WBC | 8.8 | 4.0 - 11.0 | | | | | | 10*3/uL | | | + +-------+ + + + | RBC | 4.10 | 3.80 - 5.20 | | | | | | 10*6/uL | | | + +-------+ + + + | HGB, | 12.7 | 12 - 16 | | | | External | | | | | + +-------+ + + + | HCT, | 36.1 | 35 - 45 | | | | External | | | | | + +-------+ + + + | MCV | 88.0 | 81 - 99 | | | + +-------+ + + + | MCH | 31.0 | 27.0 - 33.0 pg | | | + +-------+ + + + | MCHC | 35.2 | 30.0 - 36.0 | | | | | | g/dL | | | + +-------+ + + + | RDW-CV | 13.2 | 10.5 - 15.0 % | | | + +-------+ + + + | Platelet | 341 | 140 - 440 | | | | Count | | 10*3/uL | | | + +-------+ + + + + + | Specimen | + + | Blood specimen | | (specimen) | + + documented in this encounter Visit Diagnoses Not on filedocumented in this encounter"
--- OUTSIDE RECORDS SUMMARY | ~2019-11-09 | XMS | Encounter Summary ---
Demographics + + + | Address | [address] | | | [place] [address] | + + + | Home Phone [...] Team Providers + +------+ + | Care Gig Tender Name | Role | Phone | [...] | | | | to pollen | [place] [address] | [address] Phone: | | | | | Allergic | Phone: | [phone] | | | | | rhinitis due | [phone] | Fax: | | | | | to dust | Fax: | [phone] | | | | | Mild | [phone] | | | | | | intermittent [...] + + + + | 04/29/ | Clinical | [facility] | Henok Luther MD | Extrinsic asthma, | | 2019 | Support | [address]ARYNGOLOGY [address] | [address] | unspecified asthma | | | | [address] | [address] [place] | severity, | | | | [place] | [address] | unspecified whether | | | | [address] | | complicated, | | | | [phone] | | unspecified whether | | | [...] encounter Progress Notes Domenica Meredith RN - 04/29/2018 3:15 PM PDTFormatting of this note might be [...] Mixed immunotherapy treatment vial for patient on 04/26/18. [facility] [place] Weeds & Grass: 86 04/29/2018 Allergen Extract Amount/ml Dilution Lot # Expiration Date Ragweed Mix Pigweed 0.2 C [id number] 10/27/20 Kochia 0.2 C 834704 01/13/21 Humphrey's Quarter 0.2 C 895066 01/13/21 Luther Elder 0.2 C 879942 01/13/21 Serbian Plantain 0.2 C 294991 01/13/21 False Ragweed 0.2 C 159805 10/27/20 Citizen [place] Thistle 0.2 C 023005 10/27/20 Sagebrush 0.2 C 902592 01/13/21 Sheep Ramah Dandelion 0.2 C 680626 10/27/20 Atriplex Mix 0.2 C 412650 10/27/20 #7 Grass Mix 0.2 C 562764 02/29/20 Bermuda Grass 0.2 C [id number] 05/01/21 Sameer Grass 0.2 C 817503 10/27/20 Sully 0.2 C 763888 08/22/20 Total Allergens: 2.8 ml. Saline: 0.2 ml. Total Volume: 3.0 ml. documented in this en counter Plan of Treatment +--------+ + + + + | Date | Type | Specialty | Care Team | Description | +--------+ + + + + | 01/17/ | Appointment | Radiology | Mickey, Si, DNP | | | 2019 | | | [address] | | | | | | [address] [address] [place] | | | | | | [address] | | | | | | | | +--------+ + + + + | 01/17/ | Office | Vascular Surgery | Bill Arevalo DNP | | | 2019 | Visit | | [address] | | | | | | [address] [place] | | | | | | [address] | | | | | | | | +--------+ + + + + | 05/22/ | Office | Nephrology | Mariana Cortez W, | | | 2020 | Visit | | MD [address] | | | | | | [address] [place] | | | | | | [place] [address] | | | | | | [phone] | | | | | | | | +--------+ + + + + +-------+ +--------+ + + | Name | Type | Priori | Associated Diagnoses | Order Schedule | | | | ty | | | +-------+ +--------+ + + | Vials | Procedures | Routin | Extrinsic asthma, | Ordered: 04/29/2018 | | | | e | unspecified [...]
--- OUTSIDE RECORDS SUMMARY | ~2019-11-09 | XMS | Encounter Summary ---
Demographics + + + | Address | [address] | | | [place] [address] | + + + | Home Phone [...] Author + + + | Author | [facility] | | | and [place] | + + + | Organization | [facility] | | | [...] Team Providers + +------+ + | Care Senior Talent Management Consultant Name | Role | Phone | [...] | | | | to pollen | [place] [address] | [address] Phone: | | | | | Allergic | Phone: | [phone] | | | | | rhinitis due | [phone] | Fax: | | | | | to dust | Fax: | [phone] | | | | | Mild | [phone] | | | | | | intermittent [...] + | 09/17/ | Clinical | [facility] [place] | Henok Luther MD | Mild intermittent | | 2018 | Support | [address]ARYNGOLOGY [address] | [address] | asthma, | | | | [address] | [address] [place] | uncomplicated | | | | [place] | [address] | (Primary Dx); | | | | [address] | | Non-seasonal | | | | [phone] | | allergic rhinitis | | | [...] Progress Notes Modesta Benitez RN - 09/17/2017 3:45 PM PDTPatient presents with epi-pen & inhaler . No active wheezing or cough associated with asthma today. Denies delayed reaction from pre vious allergy injection. No fever or allergy related rash. No recent heavy exposure to aller gens. No plans for strenuous exercise immediately before or after injection today.Electronic ally signed by Modesta Benitez RN at 09/17/2017 4:00 PM PDTdocumented in this encoun ter Plan [...] [place] | | | | | | [address] | | | | | | | | +--------+ + + + + | 01/17/ | Office | Vascular Surgery | Bill Arevalo DNP | | | 2019 | Visit | | [address] | | | | | | [place] | | | | | | [address] | | | | | | | | +--------+ + + + + | 05/22/ | Office | Nephrology | Mariana Cortez, | | | 2020 | Visit | | [address] | | | | | | [address] [place] | | | | | | [place] [address] | | | | | | [phone] | | | | | | | [...]
--- OUTSIDE RECORDS SUMMARY | ~2019-11-09 | XMS | Encounter Summary ---
Demographics + + + | Address | [address] | | | [place] [address] | + + + | Home Phone [...] + + + | Author | [facility] | | | and [place] | + + + | Organization | [facility] | | | [...] Team Providers + +------+ + | Care Professor Of Communication And Writing Name | Role | Phone | + [...] | | | | severity, | [place] [address] | [address] Phone: | | | | | uncomplicate | Phone: | [phone] | | | | | d | [phone] | Fax: | | | | | Non-seasonal | Fax: | [phone] | | | | | allergic | [phone] | | | | | | rhinitis due | | | | | | | to pollen | | | | | | | Procedures | | | | | | | [place] | | | | | | | IMMUNOTHERAP | | | | | | | Y, ONE | | | | | | | INJECTION | | | | | | | [place] | | | | | | | IMMUNOTHERAP | | | | | | | Y, 2+ | | | | | | | INJECTIONS | | | | | | | [place] PROFES | | | | | | [...] | +--------+ + + + + | 06/25/ | Clinical | [facility] [place] | Henok Luther MD | Non-seasonal | | 2017 | Support | [address]ARYNGOLOGY [address] | [address] | allergic rhinitis | | | | [address] | [address] [place] | due to pollen | | | | [place], [place] | [address] | (Primary Dx); | | | | [address] | | Allergic rhinitis | | | | [phone] | | due to animal (cat) | [...] encounter Progress Notes Narda Lay RN - 06/25/2016 4:16 PM PDTPatient presents with epi-pen & inhaler. [...] [place] | | | | | | [address] | | | | | | | | +--------+ + + + + | 01/17/ | Office | Vascular Surgery | Bill Arevalo DNP | | | 2019 | Visit | | [address] | | | | | | [place] | | | | | | [address] | | | | | | | | +--------+ + + + + | 05/22/ | Office | Nephrology | CortezMariana, | | | 2020 | Visit | | [address] | | | | | | [address] [place] | | | | | | [place] [address] | | | | | | [phone] | | | | | | | [...]
--- OUTSIDE RECORDS SUMMARY | ~2019-11-09 | XMS | Encounter Summary ---
Demographics + + + | Address | [address] | | | [place] [address] | + + + | Home Phone | | + + + | Preferred Language | Unknown | + + + | Marital Status | Single | + + + | Nondenominational Affiliation | Unknown | + + + [...] Team Providers + +------+ + | Care Cert Pharmacy Tech Name | Role | Phone | [...] | | | hair and | [place] [address] | [place], [place] | | | | | dander | Phone: | [phone] | | | | | Non-seasonal | [phone] | Phone: | | | | | allergic | Fax: | [phone] | | | | | rhinitis due | [phone] | Fax: | | | | | to pollen | | [phone] | | | | | Extrinsic | [...] | +--------+ + + + + | 09/25/ | Clinical | [facility] [place] | Henok Luther MD | Non-seasonal | | 2017 | Support | [address]ARYNGOLOGY [address] | [address] | allergic rhinitis | | | | [address] | [address] [place] | due to pollen | | | | [place] | [address] | (Primary Dx); | | | | [address] | | Allergic rhinitis | | | | [phone] | | due to dust mite; | | | | | | Allergic rhinitis | | | | | | due to animal (cat) | | | | | | (dog) hair and | | | | | | dander; Extrinsic | | | | | | [...] encounter Progress Notes Domenica Meredith RN - 09/25/2016 4:00 PM PDTPatient presents with epi-pen & inhaler. No ac tive wheezing or cough associated with asthma today. Denies delayed reaction from previous a llergy injection. No fever or allergy related rash. No recent heavy exposure to allergens. N o plans for strenuous exercise immediately before or after injection today.Electronically si gned by Domenica Meredith RN at 09/25/2016 4:34 PM PDTdocumented in this encounter Plan of [...] [place] | | | | | | [address] | | | | | | | | +--------+ + + + + | 05/22/ | Office | Nephrology | Mariana Cortez, | | | 2020 | Visit | | [address] | | | | | | [address] [place] | | | | | | [place] [address] | | | | | | [phone] | | | | | | | | +--------+ + + + + + + +--------+ + + | Name | Type | Priori | Associated Diagnoses | Order Schedule | | | | ty | | | + + +--------+ + + | * MARISOL LOPEZ | Outpatient | Routin | Allergic rhinitis [...] hair and dander | + + | Extrinsic asthma, unspecified | + + documented in this encounter"
--- OUTSIDE RECORDS SUMMARY | ~2019-11-09 | XMS | Encounter Summary ---
Demographics + + + | Address | [address] | | | [place] [address] | + + + | Home Phone [...] Team Providers + +------+ + | Care Import Export Manager Name | Role | Phone | + +------+ + | Mehrdad Avalos MD | PCP | | + +------+ + Encounter Details +--------+ + + + + | Date | Type | Department | Care Team | Description | +--------+ + + + + | 09/27/ | Preadmit | [facility] | Iva Hardwick, | Pre-op testing | | 2020 | Visit | CENTER PREADMIT | [address] | (Primary Dx) | | | | CLINIC [address] | [place] [address] | | | | | BLVD [place], [place] | [phone] | | | | | [address] | | | | | | [phone] | | | +--------+ + + + [...] + + + + | Pulse | 98 | 09/28/2019 10:39 AM | | | | | PDT | | + + + + + | Temperature | - | - | | + + + + + | Respiratory Rate | - | - | | + + + + + | Oxygen Saturation | 100% | 09/28/2019 10:39 AM | | | | | PDT | | + + + + + | Inhaled Oxygen | - | - | | | Concentration | | | | + + + + + | Weight | 92.2 kg (203 lb 4.2 | 09/28/2019 10:39 AM | | | | oz) | PDT | | + + + + + | Height | 160 cm (5' 3") | 09/28/2019 10:39 AM | | | | | PDT | | + + + + + | Body Mass Index | 36.01 | 09/28/2019 10:39 AM | | | | | PDT | | + + + + + documented in this encounter Patient Instructions Instructions Leeanna Garza RN - 09/28/2019 Outpatient Medications Marked as Taking for the 09/28/19 encounter (Preadmit Visit) with [facility] ROOM 4 Medication Sig Instructions albuterol 90 mcg/puff inhaler Inhale 2 puffs into the lungs every 6 hours as needed. TA KE day of procedure, if needed Alcohol Swabs 70 % PADS by Does not apply route. DO NOT TAKE day of procedure ascorbic acid (VITAMIN C) 500 mg tablet Take 500 mg by mouth Daily. HOLD prior to proce dure. Take last dose 09/29/2019 will speak with provider for further instructions B-D UF III MINI PEN NEEDLES 31G X 5 MM MISC TAKE day of procedure, if needed CROW CONTOUR TEST strip 4 strips Daily. TAKE day of procedure, if needed Blood Glucose Monitoring Suppl (CONTOUR BLOOD GLUCOSE SYSTEM) JOANNA by Does not apply ro mcgrath. TAKE day of procedure, if needed bumetanide (BUMEX) 0.5 mg tablet Take 2 tablets by mouth 2 times daily. TAKE day of pro cedure cetirizine (ZYRTEC) 10 mg tablet Take 10 mg by mouth Daily as needed for Allergies. LILLY E day of procedure, if needed cholecalciferol (VITAMIN D-3) 2000 units TABS Take 2,000 Units by mouth Daily. HOLD suki or to procedure. Take last dose 09/29/2019 will speak to provider for further directions cyanocobalamin (VITAMIN B-12) 500 mcg tablet Take 1,000 mcg by mouth Daily. HOLD prior to procedure. Take last dose 09/29/2019 will speak to provider for further directions EPIPEN 2-IGNACIO 0.3 MG/0.3ML injection Inject 0.3 mLs into the muscle as needed for Anaphy laxis (okay to use generic). TAKE day of procedure, if needed ferrous sulfate 325 mg tablet Take 325 mg by mouth daily (with breakfast). HOLD prior t o procedure. Take last dose 09/29/2019 will speak to provider for further directions fluticasone (FLONASE) 50 mcg/nasal spray 1 spray by Nasal route Twice daily as needed. TAKE day of procedure, if needed folic acid 1 mg tablet Take 1 mg by mouth Daily. HOLD prior to procedure. Take last dos e 09/29/2019 will speak with provider for further directions glyBURIDE (DIABETA) 5 mg tablet Take 10 mg by mouth 2 times daily . DO NOT TAKE day of procedure ipratropium (ATROVENT) 0.06% nasal spray as needed . TAKE day of procedure, if needed Magnesium 400 MG CAPS Take 400 mg by mouth Daily. HOLD prior to procedure. Take last do se 09/29/2019 metoprolol succinate (TOPROL-XL) 25 mg 24 hr tablet Take 25 mg by mouth Daily. TAKE day of procedure pantoprazole (PROTONIX) 40 mg tablet Take 40 mg by mouth every morning (before breakfas t). TAKE day of procedure rosuvastatin (CRESTOR) 20 mg tablet Take 20 mg by mouth nightly. TAKE night before proc edure SEMAGLUTIDE, 1 MG/DOSE, SC Inject 1 mg under the skin Once a week. DO NOT TAKE day of p rocedure Will take on Thursday sodium bicarbonate 650 mg tablet Take 1 tablet by mouth Daily. HOLD prior to procedure. Take last dose 09/29/2019 will talk with provider for further directions TechLite Lancets MISC TAKE day of procedure, if needed documented in this encounter Miscellaneous Notes Preadmit Clinic Note - Leeanna Garza RN - 09/28/2019 10:00 AM PDTCalled anesthesia on-call , Dr. Bacon, to inform of elevated potassium. She is in an emergency and unable to take r eport at this time. SBAR note left in chart and given to evening nurse, Kaylin, to follow up with Dr. Jordi yuan later today. Update, spoke to Dr Bacon anesthesia, alerting her of elevated K No action at this time, labs will be drawn either pre op or during surgery per Dr. Bacon, no further action needed. Leeanna Garza RN readmit Clinic Note - Leeanna Garza RN - 09/28/2019 10:00 AM PDTDenies chest pain and shortness of breath with usual daily activities. Active at home with chores, etc Could walk a city block at own pace without having to sit down. Covid screening scheduled for 10/03/2019 at [facility], pt will bring results in day of procedure. documented in this enco unter Plan of Treatment +--------+ + + + + | Date | Type | Specialty | Care Team | Description | +--------+ + + + + | 01/17/ | Appointment | Radiology | Bill Arevalo DNP | | | 2019 | | | [address] | | | | | | [place] | | | | | | [phone] | | | | | | | | +--------+ + + + + | 01/17/ | Office | Vascular Surgery | Bill Arevalo DNP | | 2019 | Visit | | [address] | | | | | | [place] | | | | | | [address] | | | | | | | | +--------+ + + + + | 05/22/ | Office | Nephrology | Mariana Cortez, | | | 2020 | Visit | | MD [address] | | | | | | [address] [place] | | | | | | [place] [address] | | | | | | [phone] | | | | | | | | +--------+ + + + + documented as of this encounter Results ECG 12 lead (09/28/2019 10:02 AM PDT) + + + + + + | Component | Value | Ref Range | Performed | Pathologist | | | | | At | Signature | + + + + + + | VENTRICULAR | 95 | BPM | [facility] | | | RATE EKG | | | | | + + + + + + | ATRIAL RATE | 95 | BPM | [facility] | | + + + + + + | P-R | 140 | ms | [facility] | | | INTERVAL | | | | | + + + + + + | QRS | 80 | ms | [facility] | | | DURATION | | | | | + + + + + + | Q-T | 354 | ms | [facility] | | | INTERVAL | | | | | + + + + + + | Q-T | 444 | ms | [facility] | | | INTERVAL | | | | | | (CORRECTED) | | | | | + + + + + + | P WAVE AXIS | 42 | degrees | [facility] | | + + + + + + | QRS AXIS | 59 | degrees | [facility] | | + + + + + + | T AXIS | 58 | degrees | [facility] | | + + + + + + | INTERPRETAT | Normal sinus | | [facility] | | | ION TEXT | rhythmNormal ECGNo | | | | | | previous ECGs | | | | | | availableConfirmed by | | | | | | MARGIE BERG MD | | | | | | ([id number]) on 10/01/2019 | | | | | | 9:14:20 PM | | | | + + + + + + + + | Specimen | + + | | + + + + + | Narrative | Performed At | + + + | | | + + + + +---------+ + + | Performing | Address | City/State/Zipcode | Phone Number | | Organization | | | | + +---------+ + + | [facility] | | | | + +---------+ + + documented in this encounter Visit Diagnoses + + | Diagnosis | + + | Pre-op testing - Primary Preoperative examination, unspecified | + + documented in this encounter
--- OUTSIDE RECORDS SUMMARY | ~2019-11-09 | XMS | Encounter Summary ---
Demographics + + + | Address | [address] | | | [place] [address] | + + + | Home Phone [...] Team Providers + +------+ + | Care Stock Crane Operator Name | Role | Phone | [...] | | | | severity, | [place] [address] | [place], [place] | | | | | unspecified | Phone: | [phone] | | | | | whether | [phone] | Phone: | | | | | complicated, | Fax: | [phone] | | | | | unspecified | [phone] | Fax: | | | | | whether | | [phone] | | | | | persistent | [...] | | | | | | | [place] | | | | | | | IMMUNOTHERAP | | | | | | | Y, ONE | | | | | | | INJECTION | | | | | | | [place] PROFES | | | | | | [...] | +--------+ + + + + | 12/09/ | Clinical | [facility] | Henok Luther MD | Extrinsic asthma, | | 2019 | Support | OT[address]ARYNGOLOGY [address] | [address] | unspecified asthma | | | | [address] | [address] [place], [place] | severity, | | | | [place], [place] | [address] | unspecified whether | | | | [address] | | complicated, | | | | [phone] | | unspecified whether | | | [...] encounter Progress Notes Domenica Meredith RN - 12/09/2018 2:30 PM PDTPatient presents with epi-pen & inhaler. No ac tive wheezing or cough associated with asthma today. Denies delayed reaction from previous a llergy injection. No fever or allergy related rash. No recent heavy exposure to allergens. N o plans for strenuous exercise immediately before or after injection today.Electronically si gned by Domenica Meredith RN at 12/09/2018 2:41 PM PDTdocumented in this encounter Plan of [...] [place] | | | | | | [id number] | | | | | | | | +--------+ + + + + | 01/17/ | Office | Vascular Surgery | Bill Arevalo DNP | | | 2019 | Visit | | [address] | | | | | | [address] | | | | | | [address] | | | | | | | | +--------+ + + + + | 05/22/ | Office | Nephrology | Mariana Cortez, | | | 2020 | Visit | | [address] | | | | | | [address] [place] | | | | | | [place] [address] | | | | | | [phone] | | | | | | | [...]
--- OUTSIDE RECORDS SUMMARY | ~2019-11-09 | XMS | Encounter Summary ---
Demographics + + + | Address | [address] | | | [place] [address] | + + + | Home Phone [...] + + + | Author | [facility] | | | and [place] | + + + | Organization | [facility] | | | [...] Providers + +------+ + | Care Manager Plan Name | Role | Phone | + +------+ + | Mehrdad Avalos MD | PCP | | + +------+ + Reason for Visit + + + | Reason | Comments | + + + | Wound Check | | + + + Encounter Details +--------+ + + + + | Date | Type | Department | Care Team | Description | +--------+ + + + + | 10/26/ | Clinical | [facility] | Eve Avilez, | PAD (peripheral | | 2020 | Support | VASCULAR SURGERY | RN | artery disease) | | | | [address] | | ([facility]) (Primary Dx) | | | | [place] | | | | | | [address] | | | | | | [phone] | | | +--------+ + + + [...] documented as of this encounter Progress Notes Eve Avilez RN - 10/27/2019 2:00 PM PDTPatient presented to office for staple remov als. Patient has had no issues with her incisions. All alejandro on right lower extremities removed and steri strips applied without any issues. Patient's right foot wound still prese nt. Patient states it has significantly improve. She just saw her nuclear medicine technician Dr Saldivar on and will continue to follow up with him. Patient will follow up as planned in 3 months . She is instructed to notify [facility] if her wound does not improve. Electronically si gned by Eve Avilez RN at 10/27/2019 5:15 PM PDTdocumented in this encounter Plan of Treatment +--------+ + + + + | Date | Type | Specialty | Care Team | Description | +--------+ + + + + | 01/17/ Appointment | Radiology | Bill Arevalo DNP | | | 2019 | | | [address] | | | | | | [place] | | | | | | [address] | | | | | | | | +--------+ + + + + | 01/17/ | Office | Vascular Surgery | Bill Arevalo DNP | | | 2019 | Visit | | [address] | | | | | | [place] | | | | | | [address] | | | | | | | | +--------+ + + + + | 05/22/ | Office | Nephrology | Mariana Cortez, | | | 2020 | Visit | | [address] | | | | | | [address] [place] | | | | | | [place] [address] | | | | | | [phone] | | | | | | | | +--------+ + + + + documented as of this encounter Visit Diagnoses + + | Diagnosis | + + | PAD (peripheral artery disease) (HCC) - Primary Unspecified disorders of arteries and | | arterioles | + + documented in this encounter"
--- OUTSIDE RECORDS SUMMARY | ~2019-11-09 | XMS | Encounter Summary ---
Demographics + + + | Address | [address] | | | [place] [address] | + + + | Home Phone | | + + + | Preferred Language | Unknown | + + + | Marital Status | Single | + + + | Confucianism Affiliation | Unknown | + + + [...] Team Providers + +------+ + | Care Management Aide Name | Role | Phone | + +------+ + | Mehrdad Avalos MD | PCP | | + +------+ + Reason for Visit + + + | Reason | Comments | + + + | Follow-up | allergy inj | + + + Encounter Details +--------+---------+ + + + | Date | Type | Department | Care Team | Description | +--------+---------+ + + + | 01/20/ | Office | [facility] | Henok Luther MD | Non-seasonal | | 2019 | Visit | OT[address]ARYNGOLOGY [address] | [address] | allergic rhinitis | | | | [address] | [address] [place] [facility], [place] | due to pollen | | | | [place], [place] | [address] | (Primary Dx) | | | | [address] | | | | | | [phone] | | | +--------+---------+ + + + [...] + + + + | Pulse | 106 | 01/20/2019 3:16 PM | | | | | PST | | + + + + + | Temperature | - | - | | + + + + + | Respiratory Rate | 16 | 01/20/2019 3:16 PM | | | | | PST | | + + + + + | Oxygen Saturation | 97% | 01/20/2019 3:16 PM | | | | | PST | | + + + + + | Inhaled Oxygen | - | - | | | Concentration | | | | + + + + + | Weight | 90.3 kg (199 lb) | 01/20/2019 3:16 PM | | | | | PST | | + + + + + | Height | 162.6 cm (5' 4") | 01/20/2019 3:16 PM | | | | | PST | | + + + + + | Body Mass Index | 34.16 | 01/20/2019 3:16 PM | | | | | PST | | + + + + + documented in this encounter Progress Notes Henok Luther MD - 01/20/2019 3:45 PM PSTPatient is 4 years into her allergy injections. She finds that she rarely has any problems with allergies. Sometimes when it is real wet i n the winter months and the molds are high then she has to use a bit antihistamine. She is had no problems with her injections and otherwise is very happy with the improvement on the treatment of her allergies. Examination: Skin of the face nose and ears all appears to be smooth and healthy. In the n christopher passage there is good space for breathing on both sides and no polyps are noted. In th e oral cavity no mass or lesions are noted. Her neck is smooth without any mass or lymphade nopathy present. Parotid, thyroid and submandibular glands are smooth. Impression: None seasonal allergic rhinitis. Plan: Patient will get shot once a month for the next year and then will have completed her allergy treatment. docum ented in this encounter Plan of Treatment +--------+ + + + + | Date | Type | Specialty | Care Team | Description | +--------+ + + + + | 01/17/ | Appointment | Radiology | Bill Arevalo DNP | | | 2019 | | | [address] | | | | | | [place] | | | | | | [address] | | | | | | | | +--------+ + + + + | 01/17/ | Office | Vascular Surgery | Bill Arevalo DNP | | | 2019 | Visit | | [address] | | | | | | [place] | | | | | | [address] | | | | | | | | +--------+ + + + + | 05/22/ | Office | Nephrology | Mariana Cortez, | | | 2020 | Visit | | [address] | | | | | | [address] [place] | | | | | | [place] [address] | | | | | | [phone] | | | | | | | | +--------+ + + + + documented as of this encounter Visit Diagnoses + + | Diagnosis | + + | Non-seasonal allergic rhinitis due to pollen - Primary | + + documented in this encounter
--- OUTSIDE RECORDS SUMMARY | ~2019-11-09 | XMS | Encounter Summary ---
Demographics + + + | Address | [address] | | | [place] [address] | + + + | Home Phone [...] Author + + + | Author | [facility] | | | and [place] | + + + | Organization | [facility] | | | [...] Team Providers + +------+ + | Care Automotive Glazier Name | Role | Phone | + [...] [address] [place] | | | | | [place], [place] | [place] [address] | | | | | [address] | [phone] | | | | | [phone] | | | +--------+ + + + [...] [place] | | | | | | [address] | | | | | | | | +--------+ + + + + | 01/17/ | Office | Vascular Surgery | Bill Arevalo DNP | | | 2019 | Visit | | [address] | | | | | | [place] | | | | | | [address] | | | | | | | | +--------+ + + + + | 05/22/ | Office | Nephrology | Mariana Cortez W, | | | 2020 | Visit | | [address] | | | | | | [address] [place] | | | | | | [place] [address] | | | | | | [phone] | | | | | | | | +--------+ + + + + documented as of this encounter Procedures + +--------+ + + + | Procedure Name | Priori | Date/Time | Associated Diagnosis | Comments | | | ty | | | | + +--------+ + + + | EXTERNAL LAB: AST | Routin | 05/10/2013 | | Results for this | | | e | | | procedure are in the | | | | | | results section. | + +--------+ + + + | EXTERNAL LAB: ALT | Routin | 05/10/2013 | | Results for this | | | e | | | procedure are in the | | | | | | results section. | + +--------+ + + + | EXTERNAL LAB: | Routin | 05/10/2013 | | Results for this | | TRIGLYCERIDES | e | | | procedure are in the | | | | | | results section. | + +--------+ + + + | EXTERNAL LAB: | Routin | 05/10/2013 | | Results for this | | CHOLESTEROL, HDL | e | | | procedure are in the | | | | | | results section. | + +--------+ + + + | EXTERNAL LAB: | Routin | 05/10/2013 | | Results for this | | CHOLESTEROL, TOTAL | e | | | procedure are in the | | | | | | results section. | + +--------+ + + + | EXTERNAL LAB: | Routin | 05/10/2013 | | Results for this | | CHOLESTEROL, LDL | e | | | procedure are in the | | | | | | results section. | + +--------+ + + + | EXTERNAL LAB: EGFR | Routin | 05/10/2013 | | Results for this | | | e | | | procedure are in the | | | | | | results section. | + +--------+ + + + | EXTERNAL LAB: | Routin | 05/10/2013 | | Results for this | | CREATININE | e | | | procedure are in the | | | | | | results section. | + +--------+ + + + | CMPI | Routin | 05/10/2013 | | Results for this | | | e | | | procedure are in the | | | | | | results section. | + +--------+ + + + documented in this encounter Results CMP/ISTAT (05/10/2013) + +---------+ + + + | Component | Value | Ref Range | Performed | Pathologist | | | | | At | Signature | + +---------+ + + + | Na | 139 | mmol/L | | | + +---------+ + + + | K | 5.4 | mmol/L | | | + +---------+ + + + | Cl | 106 | mmol/L | | | + +---------+ + + + | CO2 | 23 | mmol/L | | | + +---------+ + + + | BUN | 33 | mg/dL | | | + +---------+ + + + | Glucose | 145 | mg/dL | | | + +---------+ + + + | Calcium | 8.7 | mg/dL | | | + +---------+ + + + | Bilirubin | 0.2 | mg/dL | | | | Total | | | | | + +---------+ + + + | Alkaline | 67 | U/L | | | | Phosphatase | | | | | + +---------+ + + + | Albumin | 3.4 (A) | 3.5 - 5.0 g/dL | | | + +---------+ + + + + + | Specimen | + + | Blood specimen | | (specimen) | + + External Lab: AST (05/10/2013) + +-------+ + + + | Component [...] + +---------+ + + External Lab: ALT (05/10/2013) + +-------+ + + + | Component | Value | Ref Range | Performed | Pathologist | | | | | At | Signature | + +-------+ + + + | ALT, | 9 | | EXTERNAL | | [...] +---------+ + + External Lab: Cholesterol, LDL (05/10/2013) + +-------+ + + + | Component | Value | Ref Range | Performed | Pathologist | | | | | At | Signature | + +-------+ + + + | LDL | 137 | | EXTERNAL | | | Cholesterol [...] + +---------+ + + External Lab: Triglycerides (05/10/2013) + +-------+ + + + | Component | Value | Ref Range | Performed | Pathologist | | | | | At | Signature | + +-------+ + + + | Triglycerid | 225 | | EXTERNAL | | | es, | [...] +---------+ + + External Lab: Cholesterol, HDL (05/10/2013) + +-------+ + + + | Component | Value | Ref Range | Performed | Pathologist | | | | | At | Signature | + +-------+ + + + | HDL | 52.4 | | EXTERNAL | | | Cholesterol [...] +---------+ + + External Lab: Cholesterol, Total (05/10/2013) + +-------+ + + + | Component | Value | Ref Range | Performed | Pathologist | | | | | At | Signature | + +-------+ + + + | Cholesterol | 234 | | EXTERNAL | | | , Total, [...] + +---------+ + + External Lab: eGFR (05/10/2013) + +-------+ + + + | Component | Value | Ref Range | Performed | Pathologist | | | | | At | Signature | + +-------+ + + + | eGFR, | 54 | | EXTERNAL | | | External | | | LAB | | + +-------+ + + + | eGFR, | | | EXTERNAL | | | | | | LAB | | | [place], | | | | | | External [...] + +---------+ + + External Lab: Creatinine (05/10/2013) + +-------+ + + + | Component | Value | Ref Range | Performed | Pathologist | | | | | At | Signature | + +-------+ + + + | Creatinine, | 1.1 | | EXTERNAL | | | External [...]
--- OUTSIDE RECORDS SUMMARY | ~2019-11-09 | XMS | Encounter Summary ---
Demographics + + + | Address | [address] | | | [place] [address] | + + + | Home Phone [...] Team Providers + +------+ + | Care Demand Planning Analyst Name | Role | Phone | + +------+ + | Ronel Jacobson PA-C PCP | | + +------+ + Reason for Visit +--------+--------+ + | Reason | Onset | Comments | | | Date | | +--------+--------+ + | Other | 02/20/ | EKG | | | 2017 | | +--------+--------+ + Encounter Details +--------+ + + + + | Date | Type | Department | Care Team | Description | +--------+ + + + + | 02/20/ | Telephone | [facility] | Henok Luther MD | Other (EK) | | 2017 | | OTOLARYNGOLOGY [address] | [address] | | | | | [address] [facility] [address] | [address] [place] | | | | | [place] | [address] | | | | | [address] | | | | | | [phone] | | | +--------+ + + + [...] encounter Miscellaneous Notes Telephone Encounter - Marguerite Rangel, Chief Warden - 02/23/2017 9:11 AM PSTThere was 2 phone notes created. See other phone note as well. elephone Encounter - Shanthi Fuentes, Il dical Print Graphic Designer - 02/23/2017 8:33 AM PSTCalled Clarissa at the OR, left her a voicemail try ing to see if we can have patient come in earlier to have EKG done before her surgery. I flores l let patient know. I called patient and let her know we are waiting for Clarissa to give us a call back zacke r or not she can come in Before her surgery to have it done. Patient informed me that she w ent to [facility] on Thursday and had it done. She also states that she can have it done agai n before surgery if we didn't get the results before then. elephone Encounter - Iliana Mazariegos - 02/20/2017 3:56 PM PSTPatient would like a call first thing on Thursday regarding the appro michael of her EKG. Shows pending and she is thinking she won't be able to get her surgery since this is not approved yet. She was expecting a call and was upset that no one call ed her. I apologized and explained that we had not received auth yet but would have someone check on it Thursday morning. Please call her back at [phone]. Thank you. Electronicall y signed by Iliana Mazariegos at 02/20/2017 3:58 PM PSTdocumented in this encounter Plan of [...] [place] | | | | | | [address] | | | | | | | | +--------+ + + + + | 05/22/ | Office | Nephrology | Mariana Cortez, | | | 2020 | Visit | | [address] | | | | | | [place] | | | | | | [place] [address] | | | | | | [phone] | | | | | | | | +--------+ + + + + documented as of this encounter Visit Diagnoses Not on filedocumented in this encounter"
--- OUTSIDE RECORDS SUMMARY | ~2019-11-09 | XMS | Encounter Summary ---
Demographics + + + | Address | [address] | | | [place] [address] | + + + | Home Phone [...] Author + + + | Author | [facility] | | | and [place] | + + + | Organization | [facility] | | [...] Team Providers + +------+ + | Care Homogenizer Operator Name | Role | Phone | [...] + + | Closed | Specialty | Gastroenterol | Diagnoses | Vahid, | Janak | | | Services | ogy | Upper GI | DO Norah | Gastroenterol | | | Required | | bleeding | [address] | ogy [address] | | | | | [address] | [address] | | | | | | [place], [place] | [place], [place] | | | | | | [address] | [address] | | | | | | Phone: | Phone: | | | | | | [phone] | [phone] | | | | | | Fax: | Fax: | | | | | | [phone] | [phone] | +--------+ + + + + + Reason for Visit + + + | Reason | Comments | + + + | IV Medication | needs a blood transfusion, blood drawn yesterday | + + + Auth/Cert +--------+--------+ + + + + | Status | Reason | Specialty | Diagnoses / | Referred By | Referred To | | | | | Procedures | Contact | Contact | +--------+--------+ + + + + | | | | Diagnoses | | | | | | | Upper GI | | | | | | | bleeding | | | | | | | Anemia | | | | | | | associated | | | | | | | with acute | | | | | | | blood loss | | | | | | | Acute on | | | | | | | chronic | | | | | | | renal | | | | | | | insufficienc | | | | | | | y | | | | | | | Uncontrolled | | | | | | | type 2 | | | | | | | diabetes | | | | | | | mellitus | | | | | | | with | | | | | | | hyperglycemi | | | | | | | a ([facility]) | | | | | | | | | | +--------+--------+ + + + + Encounter Details +--------+ + + + + | Date | Type | Department | Care Team | Description | +--------+ + + + + | 08/16/ | Hospital | [facility] | Elpidio Wiley | Upper GI bleeding | | 2019 - | Encounter | [facility] [address] | MD Gagandeep [address] | (Primary Dx); Anemia | | | | [address] | [address]VD [place], [place] | associated with | | 08/18/ | | [place], [place] | [address] | acute blood loss; | | 2019 | | [address] | [phone] | Acute on chronic | | | | [phone] | | renal insufficiency; | | | | | Mohinder Montesinos, | Uncontrolled type 2 | | | | | [address] | diabetes mellitus | | | | | [place] [address] | with hyperglycemia | | | | | [phone] | (HCC); Upper GI | | | | | | bleeding; | | | | | Norah Redding DO | Osteomyelitis of | | | | | [address] | ankle or foot, | | | | | [place] [address] | right, acute (HCC); | | | | | [phone] | History of duodenal | | | | | | ulcer | +--------+ + + + + Social [...] + + + | Blood Pressure | 162/81 | 08/19/2019 11:58 AM | | | | | PDT | | + + + + + | Pulse | 96 | 08/19/2019 11:58 AM | | | | | PDT | | + + + + + | Temperature | 36.6 C (97.8 F) | 08/19/2019 11:58 AM | | | | | PDT | | + + + + + | Respiratory Rate | 18 | 08/19/2019 11:58 AM | | | | | PDT | | + + + + + | Oxygen Saturation | 98% | 08/19/2019 11:58 AM | | | | | PDT | | + + + + + | Inhaled Oxygen | - | - | | | Concentration | | | | + + + + + | Weight | 94.9 kg (209 lb 3.5 | 08/17/2019 8:07 PM | | | | oz) | PDT | | + + + + + | Height | 160 cm (5' 3") | 08/17/2019 8:07 PM | | | | | PDT | | + + + + + | Body Mass Index | 37.06 | 08/17/2019 8:07 PM | | | | | PDT | | + + + + + documented in this encounter Discharge Summaries Norah Redding DO - 08/19/2019 7:19 AM PDTFormatting of this note might be different fr om the original. ADULT HOSPITALIST DISCHARGE SUMMARY Patient: July Forte : 1970 Date of Admission: 08/17/2019 Date of Discharge: 08/19/2019 Treatment Team: Stepan Napoles MD; Rosa Mclean MD Discharging Provider: Norah Redding DO Discharge Diagnoses: Principal Problem: Acute blood loss anemia Active Problems: Type 2 diabetes mellitus with stage 3 chronic kidney disease, without long-term current u se of insulin Hypertension Renal tubular acidosis, type 4 Obesity (BMI 35.0-39.9 without comorbidity) MARYURI (obstructive sleep apnea) History of anemia due to CKD Occult blood in stools History of duodenal ulcer Upper GI bleeding Procedures Performed: * No post-op diagnosis entered * Chief Complaint: Chief Complaint Patient presents with IV Medication needs a blood transfusion, blood drawn yesterday Hospital Course: July Forte is a 49 y.o. female who was admitted on 08/17/2019 with blood loss ane savanna from chronic upper GI bleed. Ms. Forte is a 49-year-old female with a past medical history of DM 2/NIDDM,CKD with pro teinuria secondaryto diabetic kidney, RTA 4(followed by Dr. Mariana Cortez MD);prior history of duodenal ulcer, BMI elevation, MARYURI (currently not on CPAP),currently on IV anti biotics secondary to right foot osteomyelitis (ertapenem followed by Dr.Echaiz CHAPMAN), hypert ension, and dyslipidemia. Patient was asked by ID specialist to present to the closest emergency room due to discover y of profound anemia on labs yesterday(H&H 5.4/16.9).Patient denies noticing any hemat ochezia or melena. Denies any nausea,emesis or hematemesis. She is on chronic iron sup plementation for anemia of chronic disease/CKD/low iron stores identified previously (H&H 5. 8/18.1 on 08/09/2019;14.7/43.7 on 05/09/2019).Patient has prior history of peptic ulce r disease and had prior endoscopy by GI specialist in [facility]. Follow-up EGD study reportedly showed healed PUD. Vitals on admission: BP 138/74 169/88, HR 114 104,afebrile,O2 sat 97% RA. Pertinent labs: H&H 5.3/17.3.Hemoccult stool test done by ER provider positive for oc cult blood/brown stool. ESR 150. ER treatment: Patient was typed and crossed and scheduled for 2 units of RBC transfusion. S he was given empiric high-dose of PPI 80 mg IV x1 followed by Protonix drip. Gi Dr. Dony españa consulted. Patient underwent EGD on 08/18/2019 with evidence of vascular ectasia successfull y treated with APC. Her antibiotics were continued while inpatient without changes. She was discharged home in stable condition. Hb on Discharge 8.0. Recommend repeat endoscopy in [address] aced on discharge. EGD 08/18/2019: Impression: - Normal esophagus. - Gastric antral vascular ectasia with bleeding. Treated with argon plasma coagulation (APC). - Normal examined duodenum. - No specimens collected. Recommendations: - [facility] patient to [facility] for [facility] care. - Clear liquid diet today. - Continue present medications. - Repeat upper endoscopy in 4 weeks for retreatment. - No aspirin, ibuprofen, naproxen, or other non-steroidal antiinflammatory drugs. - The findings and recommendations were discussed with the patient. Discharge Exam and Data: Vital Signs: BP 162/77 | Pulse 90 | Temp 36.7 C (98 F) (Oral) | Resp 18 | Ht 1.6 m (5' 3") | Wt 94.9 kg (209 lb 3.5 oz) | LMP 07/18/2019 (Approximate) | SpO2 99% | No | BMI 37.06 kg/m General: Alert, no distress, lying in bed Eyes: PERRL, no scleral icterus, no dischage ENT: External ears normal, Nose normal, oropharynx moist no exudates Neck: Supple, no thyromegaly Cardiovascular: Regular rate and rhythm, no murmurs, no rub Respiratory: No respiratory distress, clear bilaterally, no wheezing Abdomen: Soft, non-tender, non-distended, active bowel sounds Back: No tenderness or deformity Skin: Warm and dry, no rashes Extremities: RLE dressing c/d/i Neuro: No gross motor/sensory deficit. CN grossly intact. Alert and oriented to person, pl martina, time. Recent Labs Recent Labs Lab 08/19/19 05 WBC 8.79 HGB 8.0* HCT 24.8* PLT 377 Recent Labs Lab 08/19/19516 NA 140 K 4.5 CL 112* CO2 20* BUN 26* CALCIUM 8.5 Recent Labs Lab 08/17/19 1701 INR 1.0 Recent Radiology Results No new imaging. Discharge Procedure Orders Ambulatory Referral to [facility] Gastroenterology Referral Priority: Routine Referral Type: Evaluate & Treat Referral Reason: Specialty Services Required Requested Specialty: Gastroenterology Number of Visits Requested: 1 Outstanding Issues: None Discharge Information: Follow [place]: [place] [id number] [address] [facility] [address] Carmine Henry MD [address] [facility] [address] [facility] [address] [facility] [address] Discharge Medications Unchanged Medications Details albuterol 90 mcg/puff inhaler Inhale 2 puffs into the lungs every 6 hours as needed. Alcohol Swabs 70 % Pads by Does not apply route. ascorbic acid 500 mg tablet Take 500 mg by mouth Daily. aka: VITAMIN C B-D UF III MINI PEN NEEDLES 31G X 5 MM [facility] Generic drug: Insulin Pen Needle bumetanide 0.5 mg tablet Take 2 tablets by mouth 2 times daily. aka: BUMEX cetirizine 10 mg tablet Take 10 mg by mouth Daily as needed for Allergies. aka: zyrTEC cholecalciferol 50 mcg (2,000 units) tablet Take 2,000 Units by mouth Daily. aka: VITAMIN D-3 CONTOUR BLOOD GLUCOSE SYSTEM Joanna by Does not apply route. CONTOUR TEST strip Generic drug: glucose blood test strips 4 strips Daily. cyanocobalamin 500 mcg tablet Take 1,000 mcg by mouth Daily. aka: VITAMIN B-12 EPIPEN 2-IGNACIO 0.3 mg/0.3 mL injection Generic drug: EPINEPHrine auto-injector Inject 0.3 mLs into the muscle as needed for Anaphylaxis (okay to use generic). ertapenem (INVanz) IVPB (custom dose) 1 g Inject 1 g into the vein every 24 hours ferrous sulfate 325 mg tablet Take 325 mg by mouth daily (with breakfast). fluticasone 50 mcg/nasal spray 1 spray by Nasal route Twice daily as needed. aka: FLONASE folic acid 1 mg tablet Take 1 mg by mouth Daily. glyBURIDE 5 mg tablet Take 10 mg by mouth daily (with breakfast). aka: DIABETA ipratropium 0.06% nasal spray ipratropium bromide 42 mcg (0.06 %) nasal spray aka: ATROVENT Magnesium 400 MG Caps Take 400 mg by mouth Daily. metoprolol succinate 25 mg 24 hr tablet Take 25 mg by mouth Daily. aka: TOPROL-XL omeprazole 20 mg capsule Take 20 mg by mouth 2 times daily. aka: priLOSEC rosuvastatin 20 mg tablet Take 20 mg by mouth nightly. aka: CRESTOR SEMAGLUTIDE (1 MG/DOSE) SC Inject 1 mg under the skin Once a week. sodium bicarbonate 650 mg tablet Take 1 tablet by mouth Daily. [facility] Disposition: home Condition: Fair Code Status: Full Code Discharge took 35 minutes, to include final examination, discussion of admission, and prepa ration of prescriptions, instructions for on-going care, follow-up and documentation of disc harge summary. Norah Redding DO 10:21 AM PDT documented in this e ncounter Discharge Instructions Instructions Rosa Cain RN - 08/19/2019 When You Have Gastrointestinal (GI) Bleeding Blood in your vomit or stool can be a sign of gastrointestinal (GI) bleeding. GI bleeding c an be scary. But the cause may not be serious. You shouldalwayssee a doctor if you have GI bleeding. The GI tract is the path through whichfood travels in the body. Food passes from the mout h down the esophagus. This is the tube from the mouth to the stomach. Food starts to break d own in the stomach. It then moves through the duodenum ,the first part of the small intest ine . Nutrients are absorbed as food travels through the small intestine. What is left passe s into the colon (large intestine) as waste. The colon removes water from the waste. Waste c ontinues from the colon to the rectum (where stool is stored). Waste then leaves the body th rough the anus . The upper GI tract is from the mouth through the duodenum. The lower GI tra ct is from the end of the duodenum to the anus. Causes of GI bleeding GI bleeding can be caused by many different problems. Some of the more common causes includ e: Swollen veins in the anus (hemorrhoids) Swollen veins in the esophagus (varices) Sore on the lining of the GI tract (ulcer) Cuts or scrapes in the mouth or throat Infection caused by germs such as bacteria or parasites Food allergies, such as milk allergy in young children Medicines, especially aspirin, blood thinners, and NSAIDs (non-steroidal anti-inflammato ry drugs) such as ibuprofen Inflammation of the GI tract (gastritis or esophagitis) Colitis (Crohn's disease or ulcerative colitis) Cancer (tumors or polyps) Abnormal pouches in the colon (diverticula) Tears in the esophagus or anus Nosebleed Abnormal blood vessels in the GI tract (angiodysplasia) Diagnosing the cause of blood in stool If blood is coming out in your stool, you may have a lower GI tract problemor a very fast upper GI tract bleed. Bleeding from the GI tract can be bright red. Or it may look dark and tarry.Tests may also find blood in your stool that can t be seen with the eye (occult b lood). To find out the cause, tests that may be ordered include: Blood tests. A blood sample is taken and sent to a lab for exam. Hemoccult test. Checks a stool sample for blood. Stool culture. Checks a stool sample for bacteria or parasites. X-ray, ultrasound, nuclear scan, or CT scan. Imaging tests that take pictures of the dig estive tract. Colonoscopy or sigmoidoscopy. This test uses a flexible tube with a tiny camera. The tub e is inserted through your anus into your rectum to see the inside of your colon. Your provi nyla can also take a tiny tissue sample (biopsy) and treat a bleeding source Capsule endoscopy. This test uses a tiny camera that is swallowed, passes through the in testine, and takes pictures of the small intestine that is more difficult to reach with scop es. Diagnosing the cause of blood in vomit If you are vomiting blood or something that looks like coffee grounds,you may have an upp er GI tract problem. To find the cause, tests that may be done include: Upper endoscopy. A flexible tube with a tiny camera is inserted through your mouth and t hroat to see inside your upper GI tract. This lets your provider take a tiny tissue sample ( biopsy) and treat a bleeding source. Nasogastric lavage. The healthcare provider may withdraw some of the fluid in the stomac h to test it for bleeding. This can sometimes tell if you have upper GI or lower GI bleeding . X-ray, ultrasound, nuclear scan, or CT scan. Imaging tests that take pictures of your di gestive tract. Upper GI series. X-rays of the upper part of your GI tract taken after swallowing a cont rast drink. . Enteroscopy. This sends a flexible tube or a small, swallowed capsule camera into your s mall intestine. When to call your healthcare provider Call your healthcare provider right away if you have any of the following: Fever of 100.4 F( 38.0) or higher Signs of fluid loss (dehydration). These include a dry, sticky mouth, decreased urine ou tput, and very dark urine. Belly (abdominal) pain Call 911 Call 911, or get medical care right away if any of the following occur: Bleeding from your mouth or anus that can't be stopped Bleeding along with feeling lightheaded or dizzy [email or web address] last reviewed this educational content on 07/10/201819990060-3313 [employer]. [address] [place] [address]. All righ ts reserved. This information is not intended as a substitute for professional medical care. Always follow your healthcare professional's instructions. Anemia Anemia is a condition that occurs when your body does not have enough healthy red blood nolberto ls (RBCs). RBCs are the parts of your blood that carry oxygen all over your body. A protein called hemoglobin allows your RBCs to absorb and release oxygen. Without enough RBCs or hemo globin, your body doesn't get enough oxygen. Symptoms of anemia may then occur. What are the symptoms of anemia? Some people with anemia have no symptoms. But most people have symptoms that range from mil d to severe. These can include: Tiredness (fatigue) Weakness Pale skin Shortness of breath Dizziness or fainting Rapid heartbeat Trouble doing normal amounts of activity Yellowing of your eyes, skin, or mouth and dark urine (jaundice) What causes anemia? Anemia can occur when your body: Loses too much blood Does not make enough RBCs Destroys your RBCs at a faster rate than it can replace them Does not make a normal amount of hemoglobin in your RBCs These problems can occur for many reasons, including: A condition that you are born with (congenital or inherited), such as sickle cell diseas e or thalassemia Heavy bleeding for any reason, including injury, surgery, childbirth, or even heavy mens trual periods Being low in certain nutrients, such as iron, folate, or vitamin B-12 Certain long-term (chronic) conditions such as diabetes, arthritis, or kidney disease Certain chronic infections such as tuberculosis or HIV Exposure to certain medicines, such as those used for chemotherapy There are different types of anemia. Your healthcare provider can tell you more about the t ype of anemia you have and what may have caused it. How is anemia diagnosed? To diagnose anemia, your healthcare provider orders blood tests. These can include: Complete blood cell count (CBC). This test measures the amounts of the different types o f blood cells. Blood smear. This test checks the size and shape of your blood cells. To do the test, a drop of your blood is looked at under a microscope. A stain is used to make the blood cells easier to see. Iron studies. These tests measure the amount of iron in your blood. Your body needs iron to make hemoglobin in your RBCs. Vitamin B-12 and folate studies. These tests check for some of the components that help give RBCs a normal size and shape. Reticulocyte count. This test measures the amount of new RBCs that your bone marrow make s. Hemoglobin electrophoresis. This test checks for problems with your hemoglobin in RBCs. Bone marrow biopsy. This test evaluates the bone marrow where RBCs are made. How is anemia treated? Treatment for anemia is based on the type of anemia, its cause, and the severity of your sy mptoms. Treatments may include: Diet changes. This includes increasing the amount of certain nutrients in your diet, suc h as iron, vitamin B-12, or folate. Your healthcare provider may also prescribe nutrient sup plements. Medicines. Certain medicines treat the cause of your anemia. Others help build new RBCs or ease symptoms. If a medicine is the cause of your anemia, you may need to stop or change it. Blood transfusions. Replacing some of your blood can increase the number of healthy RBCs in your body. Surgery. In some cases, your healthcare provider may do surgery to treat the underlying cause of anemia. If you need surgery, your healthcare provider will explain the procedure an d outline the risks and benefits for you. What are the long-term concerns? If you have a certain type of anemia, you can expect a full recovery after treatment. If yo u have other types of anemia (especially a type you're born with), you will need to manage i t for life. Your healthcare provider can tell you more. [email or web address] last reviewed this educational content on 05/10/201819996993-0837 [employer]. [address] [place] [id number]. All righ ts reserved. This information is not intended as a substitute for professional medical care. Always follow your healthcare professional's instructions. What is Coronavirus? The Novel Coronavirus 2019 (COVID-19) is a new virus strain that is spread mainly from pers mg-cj-tnusoh through respiratory droplets when an infected person coughs or sneezes. Symptom s may appear 2-14 days after exposure. Reported illnesses have ranged from mild symptoms to severe illness and for confirmed cases. Some people testing positive for COVID-19 have no symptoms at all (asymptomatic). The most common symptoms include: ? Cough ? Shortness of breath or difficulty breathing ? Fever ? Chills ? Muscle pain ? Sore throat ? New loss of taste or smell COVID-19 is most commonly spread from an infected person to others through: ? Between people who are in close contact with one another (within about 6 feet). ? Respiratory droplets produced by coughing and sneezing. These droplets can land in the mo uths or nose of people who are nearby or possibly be inhaled into the lungs. ? Touching a surface with the virus on it and then touching your mouth, nose, or eyes befor e washing your hands. How to protect yourself ? Avoid touching your eyes, nose and mouth with unwashed hands. ? Wash your hands often with soap and water for at least 20 seconds. This is especially imp ortant after blowing your nose, coughing, or sneezing; going to the bathroom; and before eat ing or preparing food. ? If soap and water are not available, use an alcohol-based hand ecological risk assessor with at least 60 % alcohol covering all surfaces of your hands and rubbing them together until they feel dry. ? Cover your cough or sneeze with a tissue, then throw the tissue in the trash. (Putting a tissue on a table contaminates the surface of the table with germs.) ? Routinely disinfect frequently touched objects and surfaces, using a cleaning spray or wi pe. ? Avoid travel to high-risk countries. Non-essential travel to or through any of the countr ies for which the CDC has issued a level 2 or 3 travel health notice is discouraged. https://www.cdc.gov/coronavirus/2019-ncov/travelers/index.html ? Stay at least 6 feet away from others when in public places, do not gather in groups, sta y out of crowded places, and avoid mass gatherings to slow the spread of the virus. ? Use of a simple cloth face covering to slow the spread of the virus in public settings wh ere it's hard to stay away from others, such as in grocery stores, pharmacies, and other are as where the virus might easily spread. Cloth masks do not protect the wearer but instead h old in droplets from sneezing or coughing to prevent spreading to other people and surfaces. Cloth face coverings fashioned from household items or made at home from common materials a t low cost can be used. It is not recommended to use surgical masks or N-95 respirators. A few definitions that you should be familiar with regarding COVID-19: Quarantine is used to keep someone who might have been exposed to COVID-19 away from others . Isolation is used to separate people infected with the virus (those who are sick from COVID -19 and those with no symptoms) from people who are not infected. Both quarantine and isolation are similar that they: ? involve separation of people to protect the public ? help limit further spread of COVID-19 ? can be done voluntarily or be required by health authorities What to do if you are sick? ? If you have a fever and cough, you may have COVID-19. Notify your medical provider. ? Stay home except to get medical care (see for Home Isolation) ? Monitor your symptoms When you should seek medical evaluation and advice? ? Call 911 if you have a medical emergency such as trouble breathing, persistent pain or pr essure in the chest, and/or bluish lips or face. If you have a medical emergency and need to call 911, notify the crude unit operator that you have or think you might have, COVID-19. If possible, put on a facemask before medical help arrives. ? If you are 65 and older, or have underlying conditions such as , heart disease, diabetes, lung disease and weakened immune system, work with your doctor to develop a plan t o determine your health risks to COVID-19 and how to manage symptoms. If you do have symptom s, contact your doctor immediately. ? For worsening symptoms or difficulty breathing, please contact your primary care provider or consider a virtual visit. ? If you do not have a high-risk condition and your symptoms are mild, you do not need to b e evaluated in person and do not need to be tested for COVID-19. (Please see Home Quarantin e and Isolation Instructions below) ? We ask that you please avoid coming to the emergency department, unless you have a health emergency and/or you have been advised by a provider to do so. This helps prevent the risk of spreading this disease and further exposure in our community and allows us to dedicate cr itical and limited emergency resources to those who are very sick. Who should be tested? A common question right now is, Why can't I get tested? The answer: Not everyone need s to be tested. Given the short supply of testing supplies and protective equipment for our health care workers, the CDC recommends that people who are hospitalized, healthcare worker who have COVID-19 symptoms, residents in nursing facilities or half-way communities or home health, or those who are high risk (older adults, chronic diseases, immunosuppressed) s hould be prioritized for testing. These recommendations may evolve to include more people ov er time, as this situation is evolving rapidly. It is not recommended to test individuals wh o do not have COVID-19 symptoms. What to do if you think you have been exposed to COVID-19? If you feel healthy but recently had close contact with a person known to have COVID-19, yo u need to self-quarantine. Follow the self-quarantine instructions listed below: ? Check your temperature twice a day ? Stay home for 14 days from the time of exposure and self-monitor for fever, cough, and sh ortness of breath. ? Contact your medical provider if your temperature is greater than 100.4 and you develop c ough or shortness of breath. ? If possible, stay away from people who are high-risk for getting very sick from COVID-19. Does this mean my family or other people I live with need to self-quarantine? Other members of the household are not required to self-quarantine, unless they have been t old by a medical professional to do so. If you develop symptoms and are suspected to have CO VID-19, members of the household will be classified as close contacts and will then need to be in self-quarantine. Please speak to your health care provider and/or health department fo r further instructions. What are the guidelines for home quarantine and home isolation? ? Restrict activities outside your home, except for seeking medical care. ? Do not go to work, another person's home, school or public areas. ? Do not use public transportation. ? Cover coughs and sneezes. ? Avoid close contact with household members. When this is not possible, stay at least 6 fe et from other people and wear a cloth face covering. During the COVD-19 pandemic, medical-gr natalio masks are reserved for healthcare workers. ? Use separate sleeping and bathroom/bathing facilities, if feasible. ? Wash your hands often with soap and water for at least 20 seconds. This is especially imp ortant after blowing your nose, coughing, or sneezing; going to the bathroom; and before eat ing or preparing your food. ? Use hand ecological risk assessor if soap and water are not available. Use an alcohol-based hand sanitiz er with at least 60% alcohol, covering all surfaces of your hands and rubbing them together until they feel dry ? Cover your mouth and nose with a tissue when you cough or sneeze. Throw away used tissues in a lined trash can. Wash your hands afterwards. ? Clean and disinfect high-touch surfaces in your sick room and bathroom with a house hold disinfectant. High-touch surfaces include phones, remote controls, counters, doorknobs, tabletops, bathroom fixtures, toilets, keyboards, and bedside tables. Let someone else candelaria n and disinfect surfaces in common areas, but not your bedroom and bathroom. ? Avoid sharing personal household items (dishes, drinking glasses, cups, eating utensils, towels, or bedding) with other people or pets in your home. After using these items, they sh ould be washed thoroughly with soap and water or in the analytical lab analyst/washer. ? Call ahead before visiting your doctor. This will help the healthcare provider's office t brannon steps to keep other people from getting infected or exposed. ? If you have been tested for COVID-19, stay home until your healthcare provider contacts y ou about your test results. When should I discontinue self-quarantine? If you have tested positive for COVID-19, you can leave home after these three things have happened: ? At least 3 days (72 hours) have passed since resolution of fever (temperature less than 1 00.0F or 37.8C) without the use of fever-reducing medications (e.g. Tylenol, Ibuprofen) AND ? At least 3 days of improvement in respiratory symptoms (e.g. cough, shortness of breath) AND ? At least 10 days have passed since symptoms first appeared If you have tested positive for COVID-19 and are retested, you can leave home after these t hree things have happened: ? Resolution of fever (temperature less than 100.0F or 37.8C) without the use of fever-redu cing medications (e.g. Tylenol, Ibuprofen) AND ? Improvement in respiratory symptoms (e.g. cough, shortness of breath) AND ? Negative test results of COVID-19 from at least two consecutive samples collected 24 hrs or more apart If you are waiting for COVID-19 test results or you are symptomatic but did not require yamel ting, you can leave home after the following things have happened: ? At least 3 days (72 hours) have passed since resolution of fever (temperature less than 1 00.0F or 37.8C) without the use of fever-reducing medications (e.g. Tylenol, Ibuprofen) and at least 3 days of improvement in respiratory symptoms (e.g., cough, shortness of breath), a nd at least 10 days have passed since symptoms first appeared. OR ? Two negative test results received and at least 24 hours have passed since resolution of fever (temperature less than 100.0F or 37.8C) without the use of fever-reducing medications (e.g. Tylenol, Ibuprofen). How is COVID-19 treated? Most people with COVID-19 will recover on their own. There is no specific antiviral treatm ent recommended for COVID-19 at this time. People with COVID-19 should receive supportive ca re to help relieve symptoms. For severe cases, treatment should include care to support yoon l organ functions. Additional Information For up-to-date information about coronavirus and the community public health response, visi t your local public health website. CDC: COVID-19: https://www.cdc.gov/coronavirus/2019-ncov/index.html [place] Coronavirus Advisory: https://www.[facility].org/dcpngtpx-mtz-fyufqgsw/coron josiahrus-advisory Virtual Visits Available https://virtual.[facility].org/ documented in this encounter Medications at Time [...] + + + +---------+ + + | ertapenem (INVanz) | Inject 1 g into the | 1 each | 0 | 08/02/19 | | | IVPB (custom dose) | vein every 24 hours | | | 20 | 0 | | 1 gIndications: | | | | | | | Osteomyelitis | | | | | | + + + +---------+ + + | omeprazole | Take 20 mg by mouth | | 0 | | | | (PRILOSEC) 20 mg | 2 times daily. | | | | 0 | | capsule | | | | | | + + + +---------+ + + documented as of this encounter Progress Notes Julia Rodriguez ARNP - 08/19/2019 12:01 PM PDT [facility] Service: Gastroenterology Consult Progress Note Hospital Day: LOS: 2 days SUBJECTIVE Patient Summary: Patient is a 49-year-old female with past medical history of diabetes mellitus 2, PUD, CKD, RTA 4 (followed by Dr. Mariana Cortez), history of duodenal ulcer, OS A, currently followed by infectious disease for IV antibiotics secondary to right foot osteo myelitis, HTN, HLD, who was referred by the ID specialist to present to the emergency room d ue to finding of anemia on labs, with a Hbg of 5.4. Denies shortness of breath, dizziness, or lightheadedness. Denies nausea, vomiting, or abdominal pain. Denies noticing any red or dark-colored stools but she has not really paid attention to it. States that she is on sap trainer yoav iron supplements. Reports increased weakness in the last 2 days but has associated with recent surgery. Reports prior EGD in [facility] for peptic ulcer disease with a follow -up endoscopy to verify healing. Denies regular use of NSAIDs, not on anticoagulant. Work- up in the ED revealed H&H 5.3/17.3 and a positive hemoccult. GI has been consulted for [facility]. Patient had an EGD with Dr. 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 Events Overnight: Feels better. Denies any bleeding. Scheduled Medications albuterol 2 puff Inhalation RT Q6H ascorbic acid 500 mg Oral Daily cholecalciferol 2,000 Units Oral Daily cyanocobalamin 1,000 mcg Oral Daily ertapenem (INVanz) IVPB (custom dose) 1 g Intravenous Q24H ferrous sulfate 325 mg Oral Daily with breakfast folic acid 1 mg Oral Daily insulin glargine 0.1 Units/kg/day Subcutaneous Nightly insulin lispro 0-12 Units Subcutaneous 4x Daily WC and HS metoprolol succinate 25 mg Oral Daily rosuvastatin 20 mg Oral Nightly sodium bicarbonate 650 mg Oral Daily Continuous Infusions dextrose 10% pantoprazole 8 mg/hr (08/18/191953) sodium chloride 0.9% 50 mL/hr at 08/17/192153 PRN Medications acetaminophen, calcium carbonate, Hypoglycemia Management AND POCT Glucose AND dext yovany AND dextrose 10%, fluticasone, melatonin, ondansetron, polyethylene glycol OBJECTIVE Vital Signs: BP 162/81 | Pulse 96 | Temp 36.6 C (97.8 F) (Oral) | Resp 18 | Ht 1.6 m (5' 3") | Wt 94.9 kg (209 lb 3.5 oz) | LMP 07/18/2019 (Approximate) | SpO2 98% | No | BMI 37.06 kg/m GENERAL: Well developed, well nourished, in no distress. HEENT: Normocephalic, atraumatic. EYES: PERRL, sclerae anicteric MOUTH: Oral mucosae moist, dentition adequate noted NECK: No JVD, lymphadenopathy, thyromegaly, bruits. LUNGS: Clear bilaterally, with no rales, rhonchi or wheezing noted, respirations unlabored HEART: Regular rate and rhythm, S1, S2 normal. No murmurs, rubs or gallops noted. ABDOMEN: Soft, nontender, nondistended. No organomegaly, masses or bruits. Active bowel in all quadrants. EXTREMITIES: No clubbing, cyanosis or edema. Pulses palpable and equal distally. SKIN: Warm and dry, capillary refill is normal, no lesions. No jaundice. NEUROLOGIC: Awake, alert and oriented x 3. PSYCHIATRIC: Appropriate, affect appears normal DATA Lab Results Component Value Date WBC 8.79 08/19/2019 HGB 8.0 (L) 08/19/2019 HCT 24.8 (L) 08/19/2019 MCV 91.2 08/19/2019 PLT 377 08/19/2019 Lab Results Component Value Date AST 12 08/19/2019 ALT 15 08/19/2019 ALKPHOS 69 08/19/2019 BILITOT 0.2 05/10/2013 Lab Results Component Value Date INR 1.0 08/17/2019 PROBLEM LIST Principal Problem: Acute blood loss anemia Active Problems: Type 2 diabetes mellitus with stage 3 chronic kidney disease, without long-term current u se of insulin Hypertension Renal tubular acidosis, type 4 Obesity (BMI 35.0-39.9 without comorbidity) MARYURI (obstructive sleep apnea) History of anemia due to CKD Occult blood in stools History of duodenal ulcer Upper GI bleeding ASSESSMENT 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 Treated with argon plasma coagulation - H/H 8.0/24.8 PLAN - Continue to monitor H/H and transfuse as needed - IV PPI BID. May transition to PO at discharge. - Advance diet as tolerated - F/u with GI outpatient in 4 weeks for EGD for re-evaluation of GAVE - GI will sign off. Patient was discussed with GI attending.Thank you for allowing me to participate in the car e of this patient. I look forward to following along with you. Please don't hesitate to ca ll with any questions. Vi-KERRIE Collins [facility] Gastroenterology 08/19/2019 Associated attestation - Stepan Napoles MD - 08/19/2019 5:41 PM PDTThis is a 49-year-old female with an extensive past medical history as well as history of duodenal ulcer who was a dmitted for severe anemia. There is no melena or hematochezia or hematemesis. The patient was seen and examined by me personally. I have discussed the case with the nurse practitioner and I am in agreement with the assess ment and plan as written in the note. EGD revealed gastric antral vascular ectasia treated with argon plasma coagulation. Leo nuñez plan to repeat upper endoscopy in 4 weeks for retreatment. Stepan Napoles MD Gastroenterology Rosa Santamaria RN - 08/18/2019 6:23 PM PDT12 hour chart complete. Pt s table, appears to be comfortable at this time. No questions. Call light within reach. Electr onically signed by Rosa Cain RN at 08/18/2019 6:24 PM PDTNorah Redding DO - 0 6:42 AM PDT [facility] Adult Hospitalist Progress Note Hospital Day: 1 HPI SUMMARY: HPI: 49-year-old female with a past medical history of DM 2/DM/NIDDM, CKD with proteinuria secondary to diabetic kidney, RTA 4 (followed by Dr. Mariana Cortez MD) ; prior history of duodenal ulcer, BMI elevation, MARYURI (currently not on CPAP), currently on IV antibiotics seco ndary to right foot osteomyelitis (ertapenem followed by Dr. Louie CHAPMAN), hypertension, dysli pidemia. Patient was asked by ID specialist to present to the closest emergency room due to discover y of profound anemia on labs yesterday (H&H 5.4/16.9). Patient denies noticing any hematoch ezia or melena. Denies any nausea, emesis or hematemesis. She is on chronic iron supplemen tation for anemia of chronic disease/CKD/low iron stores identified previously (H&H 5.8/18.1 on 08/09/2019; 14.7/43.7 on 05/09/2019). Patient has prior history of peptic ulcer disease and had prior endoscopy by GI specialist in [facility]. Follow-up EGD study reportedly showed healed PUD. Patient denies chronic use of NSAIDs. She denies any significant recent symptoms of GERD. Ms. Forte denies any chest pain, significant dyspnea, dizziness, presyncope or syncope. S he does report some new decreased level of energy over past 2 days but nothing out of ordina ry per self-report. In fact she was quite surprised that she was asked to come to emergency room due to results of her labs. Patient drove herself to [facility]/ER. Vitals on admission: BP 138/74 169/88, HR 114 104, afebrile, O2 sat 97% RA. Pertinent labs: H&H 5.3/17.3. Hemoccult stool test done by ER provider positive for occu lt blood/brown stool. ESR 150. ER treatment: Patient was typed and crossed and scheduled for 2 units of RBC transfusion. S he was given empiric high-dose of PPI 80 mg IV x1 followed by Protonix drip. GI and infectious disease were consulted for evaluation. SUBJECTIVE Events Overnight: Hemoglobin improving with transfusion, repeat after two units 8.0. She remains hemodynamica lly stable. Pending EGD today with GI. Denies F/C/N/V/SOB/CP. OBJECTIVE Vital Signs: Blood pressure 141/64, pulse 100, temperature 36.9 C (98.4 F), resp. rate 18, height 1. 6 m (5' 3"), weight 94.9 kg (209 lb 3.5 oz), last menstrual period 07/18/2019, SpO2 98 %, no t currently . General: Alert, no distress, lying in bed Eyes: PERRL, no scleral icterus, no dischage ENT: External ears normal, Nose normal, oropharynx moist no exudates Neck: Supple, no thyromegaly Cardiovascular: Regular rate and rhythm, no murmurs, no rub Respiratory: No respiratory distress, clear bilaterally, no wheezing Abdomen: Soft, non-tender, non-distended, active bowel sounds Back: No tenderness or deformity Skin: Warm and dry, no rashes Extremities: NRLE ulcers on lateral and dorsal aspect of foot s/p I&D 07/2019, Left foot bli ster, right plantar skin fissure Neuro: No gross motor/sensory deficit. CN grossly intact. Alert and oriented to person, pl martina, time. DATA Recent Labs Lab 08/17/19 1701 INR 1.0 Recent Labs Lab 08/18/19 0408 08/17/19 1701 08/16/19 1600 WBC 9.21 9.29 -- HGB 6.6* 5.3* 5.4* HCT 20.9* 17.3* 16.9* PLT 395 468* 468* NA 139 137 137 K 4.8 4.6 5.7* CL 109 104 102 CO2 24 25 22 BUN 45* 53* 56* EGFR 35* 28* -- CALCIUM 8.2* 8.6 8.0* ANIONGAP 11 13 19 CRP -- -- 40.2* ESR -- -- 150* MG 2.0 -- -- AST 14 15 11* ALT 12 17 14 No results for input(s): TROPONINT, CKMB in the last 168 hours. Invalid input(s): CKTOTAL, TROPONINI, CKMBINDEX, PCOTNI No results for input(s): CLARITYU, LEUKOCYTESUR, UROBILINOGEN, PHUR, BLOODU, KETONES, BILIR UBINUR, GLUCOSEU, RBCU, BACTERIA, COMU in the last 168 hours. Invalid input(s): UCOL, SPECGRAV, NITRITE, UPRO PROBLEM LIST Principal Problem: Acute blood loss anemia Active Problems: Type 2 diabetes mellitus with stage 3 chronic kidney disease, without long-term current u se of insulin Hypertension Renal tubular acidosis, type 4 Obesity (BMI 35.0-39.9 without comorbidity) MARYURI (obstructive sleep apnea) History of anemia due to CKD Occult blood in stools History of duodenal ulcer Upper GI bleeding IMPRESSION/PLAN: 49-year-old female with history of poorly controlled diabetes mellitus, prior diagnosis of right foot osteomyelitis (currently on IV ertapenem by ID on the outpatient basis), CKD/prot einuria secondary to diabetic kidney, hypertension, MARYURI not on CPAP, BMI elevation at 37, pr ior history of PUD, restless leg syndrome who comes in with a history. Patient presents wit h the followin. Acute blood loss anemia. Heme-positive stools. History of prior PUD. Continue high-dose PPI therapy. Clear liquid diet with n.p.o. after midnight/GI consult/Dr. Dony CHAPMAN. Check anemia work-up with iron panel, TIBC, vitamin B12/folate, reticulocyte count, Transfused 2 units of PRBCs, repeat Hb 8.0 2. History of right foot osteomyelitis/on IV ertapenem/elevated ESR of 150/CRP 40 on labs from 08/16/2019. Continue IV antibiotics. Consulted ID for evaluation and further recommendations. Recent debridement of the wound by podiatry and [facility] on 07/28/2019. Consulted wound care for evaluation recommendations. May require official podiatry consultation and recommendations. 3. CKD stage III/diabetic nephropathy. Avoid nephrotoxic drugs. Gentle IV fluids. Recheck renal function in morning. Follow-up with Dr. Mariana Cortez on the outpatient basis as scheduled. 4. History of hypertension. Continue usual BP medications. 5. History of type 2 diabetes mellitus. Hold oral medications. Start insulin Lantus/insu leroy lispro sliding scale combination of hospitalized. Pending hemoglobin A1c. Diabetic t. 6. DVT prophylaxis SCDs 7. History of obstructive sleep apnea. Recommend strongly outpatient sleep study to start CPAP therapy. Norah Redding DO 08/18/2019 documented in this e ncounter H&P Notes Stepan Napoles MD - 08/18/2019 11:35 AM PDTPatient interviewed, history and physical, symp toms reviewed VS signs noted, no change from previous H&P or assessment and plan. Electroni leny signed by Stepan Napoles MD at 08/18/2019 11:35 AM PDTGaMohinder orellana MD - 08/17/19 20 6:43 PM PDT Patient Name: July Forte Date of Admission: 08/17/2019 Referring Provider: Dr. Inez CHAPMAN/ER Chief Complaint: "Abnormal labs with low H&H".; Patient was asked by ID specialist to come to emergency room due to very low H&H. HPI: 49-year-old female with a past medical history of DM 2/DM/NIDDM, CKD with proteinuria secondary to diabetic kidney, RTA 4 (followed by Dr. Mariana Cortez MD) ; prior history of duodenal ulcer, BMI elevation, MARYURI (currently not on CPAP), currently on IV antibiotics seco ndary to right foot osteomyelitis (ertapenem followed by Dr. Louie CHAPMAN), hypertension, dysli pidemia. Patient was asked by ID specialist to present to the closest emergency room due to discover y of profound anemia on labs yesterday (H&H 5.4/16.9). Patient denies noticing any hematoch ezia or melena. Denies any nausea, emesis or hematemesis. She is on chronic iron supplemen tation for anemia of chronic disease/CKD/low iron stores identified previously (H&H 5.8/18.1 on 08/09/2019; 14.7/43.7 on 05/09/2019). Patient has prior history of peptic ulcer disease and had prior endoscopy by GI specialist in [facility]. Follow-up EGD study reportedly showed healed PUD. Patient denies chronic use of NSAIDs. She denies any significant recent symptoms of GERD. Ms. Forte denies any chest pain, significant dyspnea, dizziness, presyncope or syncope. S he does report some new decreased level of energy over past 2 days but nothing out of ordina ry per self-report. In fact she was quite surprised that she was asked to come to emergency room due to results of her labs. Patient drove herself to [facility]/ER. Vitals on admission: BP 138/74 169/88, HR 114 104, afebrile, O2 sat 97% RA. Pertinent labs: H&H 5.3/17.3. Hemoccult stool test done by ER provider positive for occu lt blood/brown stool. ESR 150 ER treatment: Patient was typed and crossed and scheduled for 2 units of RBC transfusion. She was given empiric high-dose of PPI 80 mg IV x1 followed by Protonix drip. GI and infectious disease were consulted for evaluation. PMH: Past Medical History: Diagnosis Date Acute blood loss anemia 08/17/2019 Allergic asthma Chronic kidney disease Diabetes mellitus type II - ORAL Control 10/13/2012 Duodenal ulcer Edema 09/08/2012 Hypertension 10/13/2012 Obesity Organic insomnia MARYURI (obstructive sleep apnea) Rash RLS (restless legs syndrome) Wears dentures upper ACTIVE COMORBIDITIES: Active comorbid conditions include: - hypertension - COPD - endocrine problem - diabetes; type 2; uncontrolled (Hgb A1C >= 6.5) - obesity; BMI (30-39) - Drugs/Alcohol/Tobacco - tobacco use PSH: Past Surgical History: Procedure Laterality Date NASAL SEPTUM SURGERY Bilateral 02/24/2017 Procedure: Septoplasty, Inferior Turbinoplasty; Surgeon: Henok Luther MD; Location: [facility] MAIN OR Medications: No current facility-administered medications on file prior to encounter. Current Outpatient Medications on File Prior to Encounter Medication Sig Dispense Refill albuterol 90 mcg/puff inhaler Inhale 2 puffs into the lungs every 6 hours as needed. Alcohol Swabs 70 % PADS by Does not apply route. ascorbic acid (VITAMIN C) 500 mg tablet Take 500 mg by mouth Daily. B-D UF III MINI PEN NEEDLES 31G X [address] [facility] Corepair CONTOUR TEST strip 4 strips Daily. Blood Glucose Monitoring Suppl (CONTOUR BLOOD GLUCOSE SYSTEM) JOANNA by Does not apply ro zev. bumetanide [...] (okay to use generic). 2 each 1 ertapenem (INVanz) IVPB (custom dose) 1 g Inject 1 g into the vein every 24 hours 1 eac h 0 ferrous sulfate 325 mg tablet Take 325 [...] mouth Daily. 90 tablet [address] [facility] Allergies: Allergies Allergen Reactions Furosemide Swelling FH: family history includes Diabetes in her sister, sister, sister and another family member; H ypertension in her father, sister, sister, sister, and sister; Stomach cancer (age of onset: 60) in her mother. SH: reports that she has been smoking cigarettes. She has a 5.00 pack-year smoking history. Sh e has never used smokeless tobacco. She reports current alcohol use of about 1.[address] inks of alcohol per week. She reports that she does not use drugs. ROS: ROS Physical Exam: BP 157/74 | Pulse 105 | Temp 36.7 C (98 F) | Resp 16 | Wt 95.2 kg (209 lb 14.1 oz) | SpO2 100% | BMI 37.18 kg/m Physical Exam Constitutional: She is oriented to person, place, and time. She appears well-developed. HENT: Head: Normocephalic. Mouth/Throat: No oropharyngeal exudate. Eyes: Pupils are equal, round, and reactive to light. No scleral icterus. Neck: Normal range of motion. Cardiovascular: Normal rate. Murmur heard. Pulmonary/Chest: Effort normal and breath sounds normal. No stridor. No respiratory distres s. Abdominal: Soft. Bowel sounds are normal. She exhibits no distension. There is no abdominal tenderness. Musculoskeletal: General: No edema. Neurological: She is alert and oriented to person, place, and time. Skin: Skin is dry. No rash noted. No erythema. Psychiatric: She has a normal mood and affect. Her behavior is normal. Right foot wounds/ulcers with underlying osteomyelitis; status post recent debridement of t he wounds at [facility] on 07/28/2019 Left foot previously unroofed blister Right foot plantar skin fissure with prior history of foot surgery this region Labs: Recent Labs Lab 08/17/19 1701 08/16/19 1600 WBC 9.29 -- HGB 5.3* 5.4* HCT 17.3* 16.9* PLT 468* 468* NA 137 137 K 4.6 5.7* CL 104 102 CO2 25 22 ANIONGAP 13 19 BUN 53* 56* CREA 1.90* -- GLU 263* 400* CALCIUM 8.6 8.0* TP 6.9 -- ALBUMIN 3.7 3.0* CRP -- 40.2* ESR -- 150* BILI 0.2 -- AST 15 11* ALT 17 14 ALKPHOS 94 89 INR 1.0 -- Imaging: No results found. EKG: Problem List: Principal Problem: Acute blood loss anemia Active Problems: Type 2 diabetes mellitus with stage 3 chronic kidney disease, without long-term current u se of insulin Hypertension Renal tubular acidosis, type 4 Obesity (BMI 35.0-39.9 without comorbidity) MARYUIR (obstructive sleep apnea) History of anemia due to CKD Occult blood in stools History of duodenal ulcer Assessment and Plan: 49-year-old female with history of poorly controlled diabetes mellitus, prior diagnosis of right foot osteomyelitis (currently on IV ertapenem by ID on the outpatient basis), CKD/prot einuria secondary to diabetic kidney, hypertension, MARYURI not on CPAP, BMI elevation at 37, pr ior history of PUD, restless leg syndrome who comes in with a history. Patient presents wit h the followin. Acute blood loss anemia. Heme-positive stools. History of prior PUD. Continue high-dose PPI therapy. Clear liquid diet with n.p.o. after midnight/GI consult/Dr. Dony CHAPMAN. Check anemia work-up with iron panel, TIBC, vitamin B12/folate, reticulocyte count, Transfuse 2 units of PRBCs. 2. History of right foot osteomyelitis/on IV ertapenem/elevated ESR of 150/CRP 40 on labs from 08/16/2019. Continue IV antibiotics. Consult ID for evaluation and further recommendations. Might require reimaging of the foot. Recent debridement of the wound by podiatry and [facility] on 07/28/2019. Consult wound care for evaluation recommendations. May require official podiatry consultation and recommendations. 3. CKD stage III/diabetic nephropathy. Avoid nephrotoxic drugs. Gentle IV fluids. Recheck renal function in morning. Follow-up with Dr. Mariana Cortez on the outpatient basis as scheduled[facility] 4. History of hypertension. Continue usual BP medications. 5. History of type 2 diabetes mellitus. Hold oral medications. Start insulin Lantus/insu leroy lispro sliding scale combination of hospitalized. Check hemoglobin A1c. Diabetic diet. 6. DVT prophylaxis SCDs; subcu heparin secondary to risk of further GI blood loss. 7. History of obstructive sleep apnea. Recommend strongly outpatient sleep study to start CPAP therapy. Mohinder Montesinos MD 08/17/2019 Full CODE BLUE status. documented in this encounter Consult Notes Ana Nix RN - 08/18/2019 4:52 PM PDTAssociated Order(s): IP CONSULT TO WOUND OSTO MY NURSE [facility] Service: Wound Care Consult Note Hospital Day: 1 SUBJECTIVE Patient Summary: Wound care presents for evaluation of bilateral feet. Patient previo usly seeing Dr. Cespedes in [place] for podiatry need. Recent debridement and placement of ant ibiotic beads. Previously was using Iodosorb at home. Patient states she has offloading shoe , and visits sock knitter once a week. OBJECTIVE 08/18/19 1646 Wound 08/17/192228 Diabetic Ulcer Right foot Placement Date/Time: 08/17/192228 Present on Hospital Admission: Yes Primary Wound Type : Diabetic Ulcer Side: Right Location: foot Wound WDL ex Dressing Appearance moist drainage Base yellow;moist;not granulating Wound Base Comment Cluster of two wounds. Antibiotic beads present, attempted to leave dennis rity in place Periwound Area redness;swelling;macerated Edges rolled Wound Length (cm) 10 cm Wound Width (cm) 6 cm Wound Depth (cm) 1 cm Wound Surface Area (cm^2) 60 cm^2 Wound Volume (cm^3) 60 cm^3 Tunneling/Tract (Length (cm)/Location) Distal Plantar wound small .5 cm tunnel at 5 o'clock towards larger wound Drainage Characteristics/Odor purulent;yellow Drainage Amount moderate Wound Cleaning cleansed with;sterile normal saline Wound Interventions off-loading Dressing dressing initiated;silver impregnated dressing;hydrofiber;foam;gauze (Pt demanded davi for securement) Wound Image Wound 08/18/19 165 Diabetic Ulcer Left medial foot blister(s) Placement Date/Time: 08/18/191649 Present on Hospital Admission: Yes Primary Wound Type : Diabetic Ulcer Side: Left Orientation: medial Location: foot Wound Subtype: blister(s) Wound WDL ex Dressing Appearance dried drainage Base moist;pink;reddened Wound Base Comment Partially deroofed blister Periwound Area redness Wound Length (cm) 2.5 cm Wound Width (cm) 2.5 cm Wound Depth (cm) 0.1 cm Wound Surface Area (cm^2) 6.25 cm^2 Wound Volume (cm^3) 0.62 cm^3 Drainage Amount scant Wound Cleaning cleansed with;sterile normal saline Wound Interventions off-loading Dressing dressing initiated;silver impregnated dressing;hydrofiber;foam Wound Image Visit Summary Next Wound/Ostomy Visit Date 08/24/19 PROBLEM LIST Patient Active Problem List Diagnosis Type 2 [...] History of duodenal ulcer Upper GI bleeding ASSESSMENT & PLAN Right Diabetic Foot Wound: Slough covering almost entirety of wound bed. Small amount of pi nk showing through. Edges are macerated. Recommending Ag aquacel hydrofiber to wound bed. Se cured with gauze and roll gauze. Pt requested koban for securement. Patient may benefit from podiatry consult here for further debridement. If Slough removed, pt may be NPWT candidate. Left Medial Foot Wound: What appears to be serous filled blister had partially deroofed. Ag aquacel placed. Recommending changing every third day and PRN. Thank you for allowing me to participate in the care of this patient. I will continue to follow with you. Please call if there are any additional questions. Ana Nix RN 16:52 PDT rsRosa barksdale MD - 08/18/2019 2:01 PM PDTAssociated Order(s): PROVIDER TO PROVIDER CONSULTFormat ting of this note might be different from the original. [facility] Service: Infectious Diseases Initial Consult Note Date of Admission: 08/17/2019 Requesting Physician: Norah Redding DO, Hospitalist Reason for Consult Abnormal labs CHIEF COMPLAINT None HISTORY OF PRESENT ILLNESS The patient is a 49 y.o.-year-old female with significant PMH noted below. Patient is under going treatment for R foot osteomyelitis on invanz and followed by Dr. Palma. Due to abnorm al labs, mainly H&H 5.8/18.1, he was sent to ED. Patient has prior history of peptic ulcer disease and had prior endoscopy by GI specialist in [facility]. Follow-up EGD study reportedly showed healed PUD. Patient denies chroni c use of NSAIDs. She denies any significant recent symptoms of GERD. Ms. Forte denies any chest pain, significant dyspnea, dizziness, presyncope or syncope. She denied any hemoptysi s or hematochezia/melena, although hemoccult test was positive. She is tolerating her IV ant ibiotics. EGD done today showed: Findings: The examined esophagus was normal. 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 Vaporization for hemostasis using argon plasma at 0.4 liters/minute and 20 dumont was successful. Estimated blood loss was minimal. The exam of the stomach was otherwise normal. The cardia and gastric fundus were normal on retroflexion. The examined duodenum was normal. Impression: - Normal esophagus. - Gastric antral vascular ectasia with bleeding. Treated with argon plasma coagulation (APC). - Normal examined duodenum. - No specimens collected. Recommendation: - Return patient to [facility] for [facility] care. - Clear liquid diet today. - Continue present medications. - Repeat upper endoscopy in 4 weeks for retreatment. - No aspirin, ibuprofen, naproxen, or other non-steroidal anti-inflammatory drugs. Infectious Disease (ID) consult requested for further evaluation and management for her R O M. PAST MEDICAL HISTORY Past Medical History: Diagnosis Date Acute blood [...] Inferior Turbinoplasty; Surgeon: Henok Luther MD; Location: [facility] MAIN OR Social History Socioeconomic History Marital status: Single Spouse name: Not on file Number of children: 0 Years of education: 13 Highest education level: Not on file Occupational History Employer: OTHER Comment: [employer] Social Needs Financial resource strain: Not on [...] file Gets together: Not on file Attends mandaen service: Not on file Active member of [...] Social History Narrative Lives in house in [place] alone. Family History Problem Relation Age of Onset Hypertension Father Stomach cancer Mother 60 Diabetes Other Diabetes Sister Hypertension Sister Diabetes Sister Hypertension Sister Diabetes Sister Hypertension Sister Hypertension Sister ALLERGIES Allergies Allergen Reactions Furosemide Swelling Continuous Infusions dextrose 10% pantoprazole 8 mg/hr (08/18/19 0304) sodium chloride 0.9% 100 mL/hr at 08/18/19 1049 sodium chloride 0.9% 50 mL/hr at 08/17/19 2154 REVIEW OF SYSTEMS: Complete review of the constitutional, ENT, cardiovascular, respiratory, gastrointestinal, genitourinary, integumentary, musculoskeletal, psychiatric, neurologic, heme/lymphatic syste ms is entirely negative except as described above in the history of the present illness. PHYSICAL EXAM Vital Signs: BP 130/65 | Pulse 95 | Temp 36.7 C (98 F) (Oral) | Resp 16 | Ht 1.6 m (5' 3") | Wt 94.9 kg (209 lb 3.5 oz) | LMP 07/18/2019 (Approximate) | SpO2 99% | No | BMI 37.06 kg/m Constitutional: The patient is in no acute distress and appears stated age. Vital signs wer e reviewed as above Head: Normocephalic and atraumatic ENT: Mucous membranes are moist. There is no evidence of thrush. No pharyngeal exudates. Neck: Supple without thyromegaly or meningismus. Heart: Regular rate and rhythm without murmurs gallops or rubs Lungs: Clear to auscultation bilaterally without wheezes rales or rhonchi. Abdomen: Soft and nontender, bowel sounds are present, there is no organomegaly or mass Musculoskeletal: There is no gross deformity or active arthritis. Neuro: There are no gross deficits of motor or sensory function Skin: There are no rashes of clinical significance. There are no ulcerations or significant wounds. Extremities: R foot bandaged Psychiatric: The patient attends the examiner without difficulty and affect is appropriate. REVIEW OF LABS: All labs reviewed. CBC: Lab Results Component Value Date WBC 9.21 08/18/2019 RBC 2.21 (L) 08/18/2019 RBC 1.75 (A) 08/16/2019 HGB 8.0 (L) 08/18/2019 HCT 25.1 (L) 08/18/2019 MCV 94.6 08/18/2019 MCV 98.5 08/16/2019 MCH 29.9 08/18/2019 MCHC 31.6 (L) 08/18/2019 RDW 15.4 (A) 08/16/2019 PLT 395 08/18/2019 MPV 9.8 08/18/2019 DIFFTYPE AUTOMATED 08/18/2019 CMP: Lab Results Component Value Date NA 139 08/18/2019 K 4.8 08/18/2019 CL 109 08/18/2019 CO2 24 08/18/2019 ANIONGAP 11 08/18/2019 BUN 45 (H) 08/18/2019 GLOB 3.4 08/16/2019 AGRATIO 1.1 08/18/2019 BILITOT 0.2 05/10/2013 AST 14 08/18/2019 ALT 12 08/18/2019 EGFR 35 (L) 08/18/2019 MICROBIOLOGY NEG IMAGING None ASSESSMENT AND RECOMMENDATIONS The patient is a 49 y.o.-year-old female with the following problems: R foot OM treated with invanz ---no new ID issues ---continue current antibiotics; no changes ---patient already being seen by /[facility] ---elevated CRP likely reactive from recent bleed Upper GI bleed ---s/p EGD ---see GI recommendations Thank you for this consultation. Will follow along. Dictation software, [employer], used which may contain error for similar sounding words even af ter review. Personal communication requested for any clarification. Portions of this chart may have been copied from previous notes for continuity of care purp ty Mclean MD Infectious Diseases 08/18/2019 e, -Th ao LaineyKERRIE - 08/18/2019 9:50 AM PDTAssociated Order(s): PROVIDER TO PROVIDER CONSULTFor matting of this note might be different from the original. [facility] Service: Gastroenterology Initial Consult Note Date of Visit: 08/18/2019 Primary Care Physician: Mehrdad Avalos MD Reason for Consultation: Anemia Requesting Physician: Norah Redding DO History Obtained From: Patient CHIEF COMPLAINT: Chief Complaint Patient presents with IV Medication needs a blood transfusion, blood drawn yesterday HISTORY OF PRESENT ILLNESS Patient is a 49-year-old female with past medical history of diabetes mellitus 2, PUD, CKD, RTA 4 (followed by Dr. Mariana Cortez), history of duodenal ulcer, MARYURI, currently followed by infectious disease for IV antibiotics secondary to right foot osteomyelitis, HTN, HLD, wh o was referred by the ID specialist to present to the emergency room due to finding of anemi a on labs, with a Hbg of 5.4. Denies shortness of breath, dizziness, or lightheadedness. De nies nausea, vomiting, or abdominal pain. Denies noticing any red or dark-colored stools bu t she has not really paid attention to it. States that she is on chronic iron supplements. Reports increased weakness in the last 2 days but has associated with recent surgery. Repo rts prior EGD in [facility] for peptic ulcer disease with a follow-up endoscopy to verif y healing. Denies regular use of NSAIDs, not on anticoagulant. Work-up in the ED revealed H&H 5.3/17.3 and a positive hemoccult. GI has been consulted for further evaluation. REVIEW OF SYSTEMS Constitutional: Positive for fatigue. Negative for fever, chills, diaphoresis, activity ch alli, appetite change. HEENT: Negative for eye pain, redness and visual disturbance. Negative for ear pain and di scharge. Negative for runny nose, nose bleeds, and sinus congestion. Negative for sore thro at, mouth sores, difficulty swallowing. Negative for neck pain or stiffness. Respiratory: Negative for cough, shortness of breath, crackles, wheezing, and difficulty b reathing Cardiovascular: Negative for chest pain, palpitations and leg swelling. Gastrointestinal: Negative for abdominal pain, diarrhea, constipation and blood in stool. Negative for nausea, vomiting, abdominal distention, anal bleeding, and rectal pain. Musculoskeletal: Negative for myalgias and joint swelling. Skin: Negative for color change, rash and wound. Neurological: Negative for dizziness and light-headedness. Negative for tremors, seizures, syncope and headaches. Psych/Behavioral: Negative for suicidal ideas, hallucinations, behavioral problems, and ag itation. Allergies Allergen Reactions Furosemide Swelling Current Facility-Administered Medications Medication Dose Route Frequency Provider Last Rate Last Dose acetaminophen (TYLENOL) tablet 650 mg 650 mg Oral Q4H PRN Mohinder Montesinos MD 650 m g at 08/18/19 0850 albuterol 90 mcg/puff inhaler 2 puff 2 puff Inhalation RT Q6H Mohinder Montesinos MD 2 puff at 08/18/19 0855 ascorbic acid (VITAMIN C) tablet 500 mg 500 mg Oral Daily Mohinder Montesinos MD 500 m g at 08/18/19 0850 calcium carbonate (TUMS) chewable tablet 1,000 mg 1,000 mg Oral Q4H PRN Mohinder rose MD cholecalciferol (VITAMIN D-3) tablet 2,000 Units 2,000 Units Oral Daily Mohinder rose MD 2,000 Units at 08/18/19 0850 cyanocobalamin (VITAMIN B-12) tablet 1,000 mcg 1,000 mcg Oral Daily Mohinder Montesinos MD 1,000 mcg at 08/18/19 0850 dextrose 50% injection 12.5-25 g 12.5-25 g Intravenous PRN Mohinder Montesinos MD And dextrose 10% (D10W) infusion Intravenous Continuous PRN Mohinder Montesinos MD ertapenem (INVanz) 1 g in sodium chloride 0.9% 50 mL IVPB 1 g Intravenous Q24H Mohinder Montesinos MD 120 mL/hr at 08/17/19 2154 1 g at 08/17/19 215 ferrous sulfate tablet 325 mg 325 mg Oral Daily with breakfast Mohinder Montesinos MD 325 mg at 08/18/19 0850 fluticasone (FLONASE) 50 mcg/nasal spray 1 spray 1 spray Nasal BID PRN Mohinder blanco MD folic acid tablet 1 mg 1 mg Oral Daily Mohinder Montesinos MD 1 mg at 08/18/19 0850 insulin glargine (LANTUS SOLOSTAR) injection (pen) 10 Units 0.1 Units/kg/day Subcutane ous Nightly Mohinder Montesinos MD 10 Units at 08/17/192153 insulin lispro (humaLOG) injection (vial) 0-12 Units 0-12 Units Subcutaneous 4x Daily WC and HS Mohinder Montesinos MD Stopped at 08/17/192132 melatonin tablet 3 mg 3 mg Oral Nightly PRN Mohinder Montesinos MD metoprolol succinate (TOPROL-XL) ER tablet 25 mg 25 mg Oral Daily Mohinder Montesinos MD 25 mg at 08/18/19 0850 ondansetron (ZOFRAN) injection 4 mg 4 mg Intravenous Q6H PRN Mohinder Montesinos MD pantoprazole (PROTONIX) 0.8 mg/mL in sodium chloride 0.9% 100 mL infusion 8 mg/hr Intr avenous Continuous Mohinder Montesinos MD 10 mL/hr at 08/18/19 0304 8 mg/hr at 08/18/19 0304 polyethylene glycol (MIRALAX) powder 17 g 17 g Oral Daily PRN Mohinder Montesinos MD rosuvastatin (CRESTOR) tablet 20 mg 20 mg Oral Nightly Mohinder Montesinos MD 20 mg at 08/17/192152 sodium bicarbonate tablet 650 mg 650 mg Oral Daily Mohinder Montesinos MD 650 mg at 0850 sodium chloride 0.9% (NS) infusion Intravenous Continuous Mohinder Montesinos MD 50 mL/ hr at 08/17/19 215 Past Medical History: Diagnosis Date Acute blood loss anemia 08/17/2019 Allergic asthma Chronic kidney disease Diabetes mellitus type II - ORAL Control 10/13/2012 Duodenal ulcer Edema 09/08/2012 Hypertension 10/13/2012 Obesity Organic insomnia MARYURI (obstructive sleep apnea) Rash RLS (restless legs syndrome) Wears dentures upper Family History Problem Relation Age of Onset Hypertension Father Stomach cancer Mother 60 Diabetes Other Diabetes Sister Hypertension Sister Diabetes Sister Hypertension Sister Diabetes Sister Hypertension Sister Hypertension Sister Social History Tobacco Use Smoking Status Current Every Day Smoker Packs/day: 0.25 Years: 20.00 Pack years: 5.00 Types: Cigarettes Last attempt to quit: 09/23/2012 Years since quittin.9 Smokeless Tobacco Never Used Social History Substance and Sexual Activity Alcohol Use Yes Alcohol/week: 1.0 standard drinks Types: 1 Standard drinks or equivalent per week Comment: 1 a month Social History Substance and Sexual Activity Drug Use No Social History Substance and Sexual Activity Sexual Activity Not on file PHYSICAL EXAM Vital Signs: Vitals: 08/18/19 0846 BP: 137/70 Pulse: 100 Resp: 16 Temp: 36.9 C (98.4 F) Constitutional: Pleasant, in no distress. HENT: Head: Normocephalic and atraumatic. Ears: External ear normal. No hearing loss. Nose: Nose normal. Eyes: Conjunctivae normal. Both eyes exhibit no discharge. No scleral icterus. Neck: No JVD present. No tracheal deviation present. Cardiovascular: Regular rate and rhythm, S1, S2 normal. No murmurs, rubs or gallops noted. Pulmonary/Chest: Clear bilaterally with no rales, rhonchi or wheezing noted. Respiratory unlabor ed. Abdominal: Soft, nontender, nondistended. No organomegaly, masses or bruits. Active bowel sounds in al l quadrants. Extremities: No clubbing, cyanosis or edema. Neurological: Alert and oriented to person, place, and time. Skin: Skin is warm and dry. No rash, erythema, or pallor noted. Psychiatric: Normal mood and affect. Behavior is normal. Thought content normal. DATA Lab Results Component Value Date WBC 9.21 08/18/2019 HGB 6.6 (LL) 08/18/2019 HCT 20.9 (LL) 08/18/2019 MCV 94.6 08/18/2019 PLT 395 08/18/2019 Lab Results Component Value Date AST 14 08/18/2019 ALT 12 08/18/2019 ALKPHOS 76 08/18/2019 BILITOT 0.2 05/10/2013 Lab Results Component Value Date INR 1.0 08/17/2019 ASSESSMENT Symptomatic anemia: - Secondary to GI bleeding. Given history of PUD, concern for upper source of GIB. - On chronic iron supplement - Positive hemoccult - Possible causes for upper GI bleeding include but not limited to: Esophagitis, duodenitis , gastritis, esophageal varices, ulcers, Erma-Elizabeth tear, malignancy, among others. PLAN - IV PPI BID - Monitor H/H and transfuse as needed - NPO - EGD today. Risks, benefits, and alternatives of the procedure were discussed in detail an d patient is willing to proceed. Medical conditions were reviewed, evaluated and appeared to be stable at this time. Patient would be appropriate for sedation with anesthesia assistanc e given comorbidities. - If EGD negative, may consider colonoscopy. This patient was discussed with attending GI provider. Thank you for allowing me to partici loya in the care of this patient. Please do not hesitate to call with any questions. Vi-KERRIE [facility] Gastroenterology 08/18/2019 Associated attestation - Stepan Napoles MD - 08/18/2019 11:46 AM PDTThis is a 49-year-old female with an extensive past medical history as well as history of duodenal ulcer who was a dmitted for severe anemia. There is no melena or hematochezia or hematemesis. The patient was seen and examined by me personally. I have discussed the case with the nurse practitioner and I am in agreement with the assess ment and plan as written in the note. EGD is planned for today. If EGD is unremarkable for bleeding source and will proceed with colonoscopy after Colyte prep tomorrow. Stepan Napoles MD Gastroenterology staffdocumented in this encounter ED Notes Aleyda Olson RN - 08/17/2019 6:24 PM PDTWriter wearing n95 mask, face shield, barri er gown, gloves while obtaining covid swab obAleyda su RN - 08/17/2019 6:12 PM PDTDr gawlick at bedside Aleyda Calderon RN - 08/17/2019 6:12 PM PDTLab called to send covid swab Meghan Lobo Technologist - 08/17/2019 5:47 P M dAebayo Napoles was called for document control specialist GI. Call transferred to Dr Callawaylectronically signed by Technologist Bertha at 08/17/2019 5:50 PM Meghan Lobo Technologis t - 08/17/2019 4:39 PM PDTDr Palma contacted. He is speaking with Dr Wiley at this timeEl ectronically signed by Yolanda Stoneologist at 08/17/2019 4:41 PM Aleyda Calderon RN - 08/17/2019 4:25 PM PDTPt here with jx of osteomyelitis of her left foot, havi ng abx via PICC for this. Sent here because of low H&H. Asymptomatic per ptElectronically si gned by Aleyda Olson RN at 08/17/2019 5:27 PM PDTElpidio Wiley MD - 08/17/2019 4:14 PM PDT [facility] Department of Emergency Medicine No flowsheet data found. History of Present Illness Patient Identification July Forte is a 49 y.o. female. Patient information was obtained from patient and past medical records. History/Exam limitations: none. Patient presented to the Emergency Department by: Car Chief Complaint Chief Complaint Patient presents with IV Medication needs a blood transfusion, blood drawn yesterday The patient complains of nothing. States she was sent in to the ED due to abnormal blood t est. States she is being treated by an infectious disease specialist whose name she cannot remember. States she is being treated for a "bone infection" of the left foot. She has DM. Had labs drawn yesterday and was going to be seen by her ID specialist in the office today but was called and told to go to the hospital instead. She thinks she was told to go to th e ED and not outpatient procedures but does not know why. The patient also complains of the following symptoms: None. Pt denies: chest pain, trouble breathing, palpitations, fever, chills, changes in right eh t. PCP: Mehrdad Avalos MD Past Medical History: Diagnosis Date Acute blood [...] Inferior Turbinoplasty; Surgeon: Henok Luther MD; Location: [facility] MAIN OR Prior to Admission medications Medication Sig Start Date End Date Taking? Authorizing Provider albuterol 90 mcg/puff inhaler Inhale 2 puffs into the lungs every 6 hours as needed. 6 Ronel Jacobson PA-C Alcohol Swabs 70 % PADS by Does not apply route. Historical Provider, ascorbic acid (VITAMIN C) 500 mg tablet Take 500 mg by mouth Daily. Historical Provider, MD Izquierdo UF III MINI PEN NEEDLES 31G X 5 MM MISC 09/08/12 Historical Provider, CRWO CONTOUR TEST strip 4 strips Daily. 09/08/12 Historical Provider, Blood Glucose Monitoring Suppl (CONTOUR BLOOD GLUCOSE SYSTEM) JOANNA by Does not apply route. Historical Provider, bumetanide (BUMEX) 0.5 mg tablet Take 2 tablets by mouth 2 times daily. 07/06/18 Mariana Cortez MD cetirizine (ZYRTEC) 10 mg tablet Take 10 mg by mouth Daily as needed for Allergies. Hist orical ProviderMD cholecalciferol (VITAMIN D-3) 2000 units TABS Take 2,000 Units by mouth Daily. Historica l MD Brea cyanocobalamin (VITAMIN B-12) 500 mcg tablet Take 1,000 mcg by mouth Daily. Historical Lina sharma MD EPIPEN 2-IGNACIO 0.3 MG/0.3ML injection Inject 0.3 mLs into the muscle as needed for Anaphylaxi s (okay to use generic). 11/12/17 Henok Luther MD ertapenem (INVanz) IVPB (custom dose) 1 g Inject 1 g into the vein every 24 hours 08/02/19 Yes Carmine Henry MD ferrous sulfate 325 mg tablet Take 325 mg by mouth daily (with breakfast). Historical Pr MD priscila fluticasone (FLONASE) 50 mcg/nasal spray 1 spray by Nasal route Twice daily as needed. 09/09 10/25 Ronel Jacobson PA-C folic acid 1 mg tablet Take 1 mg by mouth Daily. Historical Provider, glyBURIDE (DIABETA) 5 mg tablet Take 10 mg by mouth daily (with breakfast). 09/28/15 Brenden Jacobson PA-C ipratropium (ATROVENT) 0.06% nasal spray ipratropium bromide 42 mcg (0.06 %) nasal spray Historical Provider, Magnesium 400 MG CAPS Take 400 mg by mouth Daily. 05/11/18 Mariana Cortez MD metoprolol succinate (TOPROL-XL) 25 mg 24 hr tablet Take 25 mg by mouth Daily. Historica l MD Brea omeprazole (PRILOSEC) 20 mg capsule Take 20 mg by mouth 2 times daily. Historical Provid MD edie rosuvastatin (CRESTOR) 20 mg tablet Take 20 mg by mouth nightly. Historical Provider, SEMAGLUTIDE, 1 MG/DOSE, SC Inject 1 mg under the skin Once a week. Historical Provider, sodium bicarbonate 650 mg tablet Take 1 tablet by mouth Daily. 05/17/19 [facility] Historical Provider, Allergies Allergen Reactions Furosemide Swelling Social History Socioeconomic History Marital status: Single Spouse name: Not on file Number of children: 0 Years of education: 13 Highest education level: Not on file Occupational History Employer: OTHER Comment: [employer] Social Needs Financial resource strain: Not on [...] file Gets together: Not on file Attends mandaen service: Not on file Active member of [...] Social History Narrative Lives in house in [place] alone. Family History Problem Relation Age of Onset Hypertension Father Stomach cancer Mother 60 Diabetes Other Diabetes Sister Hypertension Sister Diabetes Sister Hypertension Sister Diabetes Sister Hypertension Sister Hypertension Sister Review of Systems Constitutional: Negative for: fever, chills Eyes: Negative for: vision changes Throat: Negative for: mouth sores Cardiovascular/Respiratory: Negative for: chest pain, trouble breathing Gastrointestinal: Negative for: abdominal pain, vomiting, diarrhea, black or bloody stools Genitourinary: Negative for: dysuria, hematuria, urinary problems Musculoskeletal: Negative for: new joint pain Skin: Negative for: rash Neuro and psych: Negative for: fainting Endocrine/Heme/Lymph: Negative for: swollen lymph nodes All other review of systems negative except as mentioned. Physical Exam Temp: 36.7 C (98 F) Pulse: 114 Resp: 20 BP: 138/74 SpO2: 97 % Pulse Oximetry interpretation: Normal VS: Mild tachycardia, else normal. Afebrile. General: Alert, in no apparent distress Eyes: Normal inspection, pupils equal and round, non-icteric ENT: Ears normal Nose normal Neck: Normal inspection Supple No lymphadenopathy No meningismus Cardiovascular: Normal rate, rhythm, no murmur. Respiratory: Normal lung sounds. No rales, rhonchi, or wheezing. Abdomen: Soft, non-tender, non-distended No guarding or rebound Back: Normal inspection Extremities: No edema or tenderness Skin: Color normal Warm and dry No rash Neuro: No motor deficit No sensory deficit Medical Decision Making and Emergency Department Course ED Department Course Normal exam. No complaints. Borderline tachycardia in triage. Pt not certain why she is in the ED and does not know the name of her referring provider. There are a couple of phone c alls documented from Dr. Palma's office today but nothing about going to the ED seen. Will call Dr. Palma. Records show pt's Hgb was 5.4 yesterday and 5.8 eight days ago. She has reported CKD but H gb was normal in labs from April of this year. 1641 - Spoke with Dr. Palma. He states he sent pt in for workup of anemia, unknown etiolo gy. He is concerned it may be related to the pt's antibiotics. Rectal: Old hemorrhoid on external exam. Stool is black, tarry-colored and heme positive with good quality-control check. Exam performed with assistance by ED RN Aleyda. Pt reports last scope was in [place] about 6 months ago by a local provider there. State s she has a history of bleeding ulcer. I will plan on transfusion, admission, and GI consul tation here in the hospital. Protonix bolus and gtt ordered. CMP shows hyperglycemia at 263, BUN/Cr is 53/1.9 giving eGFR of 28. This pattern is consis tent with upper GI bleeding. CBC here again confirms normocytic (almost macrocytic) anemia with H&H of 5.3/17.3. 1749 - Discussed case with Dr. Valero (GI), will plan to scope tomorrow, would like Hgb>[address] Agrees with plan for Protonix bolus and gtt. 1804 - Discussed case with Dr. Montesinos (hospitalist), will admit. Pt reassessed multiple times during course of ED stay and demonstrated neither decompensati on nor were new symptoms observed or reported. Because of the severity/potential severity of the patient's medical condition the patient r equired my complete undivided attention for multiple prolonged periods during the course of the ED stay. Please see also RN notes for further ED course information. BP 157/74 | Pulse 105 | Temp 36.7 C (98 F) | Resp 16 | Wt 95.2 kg (209 lb 14.1 oz) | SpO2 100% | BMI 37.18 kg/m Records Reviewed Old medical records. No prior ED visits noted in [facility] EMR. Medications Administered in ED Medications pantoprazole (PROTONIX) 0.8 mg/mL in sodium chloride 0.9% 100 mL infusion (8 mg/hr Intraven ous New Bag 08/17/19 1735) fluticasone (FLONASE) 50 mcg/nasal spray 1 spray (has no administration in time range) folic acid tablet 1 mg (has no administration in time range) sodium bicarbonate tablet 650 mg (has no administration in time range) sodium chloride 0.9% (NS) infusion (has no administration in time range) dextrose 50% injection 12.5-25 g (has no administration in time range) And dextrose 10% (D10W) infusion (has no administration in time range) insulin glargine (LANTUS SOLOSTAR) injection (pen) 10 Units (has no administration in time range) insulin lispro (humaLOG) injection (vial) 0-12 Units (has no administration in time range) pantoprazole (PROTONIX) injection 80 mg (80 mg Intravenous Given 08/17/19 1720) Laboratory Evaluation Abnormal Labs Reviewed CBC WITH DIFFERENTIAL - Abnormal; Notable for the following components: Result Value Red Blood Cells 1.75 (*) Hemoglobin 5.3 (*) Hematocrit 17.3 (*) MCHC 30.6 (*) Platelet Count 468 (*) All other components within normal limits COMPREHENSIVE METABOLIC PANEL - Abnormal; Notable for the following components: Glucose 263 (*) BUN 53 (*) Creatinine 1.90 (*) Estimated GFR 28 (*) All other components within normal limits PTT - Abnormal; Notable for the following components: PTT 22 (*) All other components within normal limits RETIC COUNT - Abnormal; Notable for the following components: % Reticulocyte Count 6.1 (*) All other components within normal limits Radiology and ECG Evaluation No results found for this or any previous visit (from the past 360 hour(s)). Diagnosis: 1. Upper GI bleeding 2. Anemia associated with acute blood loss 3. Acute on chronic renal insufficiency 4. Uncontrolled type 2 diabetes mellitus with hyperglycemia (HCC) Disposition: ED Disposition ED Disposition Condition Comment Admit Clinical impression: Upper GI bleeding [964546] Clinical impression: Anemia associated with acute blood loss [[id number]] Clinical impression: Acute on chronic renal insufficiency [[id number]] Admitting provider: HATTIE HOSPITALIST [[id number]] Expected patient class: Inpatient [101] Level of service: Medical Follow up: Follow-up Information Mehrdad Avalos MD. Specialty: Family Medicine Contact information: [address] [place] [address] Carmine Henry MD. Specialties: Infectious Diseases, Internal Medicine Contact information: Debra TODD [facility] [address] Discharge Medications: Critical Care Performed by: ELPIDIO WILEY Total critical care time: 35 minutes. Critical care time was exclusive of separately billable procedures and treating other patie nts. Critical care was necessary to treat or prevent imminent or life-threatening deterioration of the following conditions: GI bleeding requiring urgent blood transfusion. Critical care was time spent personally by me on the following activities: development of t reatment plan with patient or surrogate, discussions with consultants, evaluation of patient 's response to treatment, examination of patient, obtaining history from patient or surrogat e, ordering and performing treatments and interventions, ordering and review of laboratory s tudies, ordering and review of radiographic studies, pulse oximetry, re-evaluation of patien t's condition and review of old charts. Elpidio Wiley MD 08/17/191922 documented in this encounter Miscellaneous Notes Plan of Care - Rosa Cain RN - 08/19/2019 1:45 PM PDTDiscussed discharge instructions wi th the patient and all questioned fully answered. Pt will call provider if any problems mary e. VS stable. Pt discharged via wheelchair to car with sister. Printed AVS provided, pt awar e where to obtain new medications/printed prescriptions provided to pt. lan of Care - Henrietta Hopper RN - 08/19/2019 7:35 AM PDT Problem: Adult Inpatient Plan of Care Goal: Patient-Specific Goal Outcome: Ongoing, progressing Be able to go home today. Patient H/H is stable this am. Denies pain. Able to tolerate her clear liquid diet well. lan of Care - Karen Verduzco RN - 08/18/2019 10:51 PM PDT Problem: Adult Inpatient Plan of Care Goal: Absence of Hospital-Acquired Illness or Injury Outcome: Ongoing, progressing Goal: Optimal Comfort and Wellbeing Outcome: Ongoing, progressing Problem: Bleeding (Gastrointestinal Bleeding) Goal: Hemostasis Outcome: Ongoing, progressing Patient denies current bleeding, VSS. Patient denies having any rectal bleeding through the night, no other complaints, VSS. End of shift chart check complete. -C Instructions Pro Stepan Davis MD - 08/18/2019 11:32 AM PDTPatient Instructions After Upper GI end oscopy Patient: July Forte Procedure Date: August Attending MD: STEPAN NAPOLES MD; You had a Upper GI endoscopy today. Your doctor made the following findings: - Normal esophagus. - Gastric antral vascular ectasia with bleeding. Treated with argon plasma coagulation (APC). - Normal examined duodenum. - No specimens collected. Your doctor recommends: Take a clear liquid diet today. Continue your present medications. Your physician has recommended a repeat upper endoscopy in four weeks for retreatment. Do not take any aspirin, ibuprofen (including Advil, Motrin or Nuprin), naproxen (including Aleve), or any other non-steroidal anti-inflammatory drugs. The findings and recommendations have been discussed with you. CALL YOUR PHYSICIAN IF YOU EXPERIENCE: < Any unusual pain < Temperature above 100 degrees Fahrenheit < Shortness of breath DIET: You may resume your regular diet immediately after the procedure unless otherwise instructed by your doctor. CAUTIONS: The medications used to make the examination more comfortable for you will be acting in your body for up to 24 hours. Therefore: < DO NOT drive a car or operate machinery or power tools. < DO NOT drink alcohol or take tranquillizers or sleeping pills. < DO NOT make major personal decisions. This includes signing legal documents and/or contracts. MEDICATIONS: Most medications can be safely resumed once you can eat. The exceptions would be tranquillizers and sleeping pills. STEPAN NAPOLES MD 08/18/2019 12:27:34 PM This report has been signed electronically.Electronically signed by Stepan Napoles MD at 12:27 PM PDTPlan of [facility] - Henrietta Villarreal RN - 08/18/2019 7:46 AM PDT Problem: Adult Inpatient Plan of Care Goal: Patient-Specific Goal Outcome: Ongoing, progressing Feel better. Patient's H/H was critical last night and this am. Received 2 Units of blood and finishing her 3 unit. Will recheck H/H at 10am and proceed from that. lan of [facility] Laura han RN - 08/17/2019 10:21 PM PDT Problem: Adult Inpatient Plan of Care Goal: Plan of Care Review Outcome: Ongoing, progressing Problem: Adjustment to Illness (Gastrointestinal Bleeding) Goal: Optimal Coping with Acute Illness Outcome: Ongoing, progressing Problem: Bleeding (Gastrointestinal Bleeding) Goal: Hemostasis Outcome: Ongoing, progressing Pt rested quietly during the night. No complaints at this time. Call light within reach at all times. Hourly rounding completed. Pt given 2 units of red blood cells. Per pt no bloody stools since arrival. No changes to previous assessment. End of shift chart review complete. documented in this encounter Plan of Treatment +--------+ + + + + | Date | Type | Specialty | Care Team | Description | +--------+ + + + + | 01/17/ | Appointment | Radiology | Bill Arevalo DNP | | | 2019 | | | [address] | | | | | | [place] | | | | | | [address] | | | | | | | | +--------+ + + + + | 01/17/ | Office | Vascular Surgery | Bill Arevalo DNP | | | 2019 | Visit | | [address] | | | | | | [place] | | | | | | [address] | | | | | | | | +--------+ + + + + | 05/22/ | Office | Nephrology | Mariana Cortez, | | | 2020 | Visit | | MD [address] | | | | | | [address] [place] | | | | | | [place] [address] | | | | | | [phone] | | | | | | | | +--------+ + + + + + +------+--------+ + + | Name | Type | Priori | Associated Diagnoses | Date/Time | | | | ty | | | + +------+--------+ + + | ED INFORMATION | FRANKIE | Routin | | 08/17/2019 12:52 PM | | EXCHANGE | | e | | PDT | + +------+--------+ + + + + +--------+ + + | Name | Type | Priori | Associated Diagnoses | Order Schedule | | | | ty | | | + + +--------+ + + | Ambulatory Referral | Outpatient | Routin | Upper GI bleeding | Ordered: 08/19/2019 | | to Denise | Referral | e | | | | Gastroenterology | | | | | + + +--------+ + + documented as of this encounter Procedures + +--------+ + + + | Procedure Name | Priori | Date/Time | Associated Diagnosis | Comments | | | ty | | | | + +--------+ + + + | POC GLUCOSE (NON | Routin | 08/19/2019 | | Results for this | | ORD) | e | 11:59 AM | | procedure are in the | | | | PDT | | results section. | + +--------+ + + + | POC GLUCOSE (NON | Routin | 08/19/2019 | | Results for this | | ORD) | e | 7:33 AM | | procedure are in the | | | | PDT | | results section. | + +--------+ + + + | LIPID PANEL | Routin | 08/19/2019 | | Results for this | | | e | 5:17 AM | | procedure are in the | | | | PDT | | results section. | + +--------+ + + + | CBC NO DIFFERENTIAL | Routin | 08/19/2019 | | Results for this | | | e | 5:17 AM | | procedure are in the | | | | PDT | | results section. | + +--------+ + + + | MAGNESIUM | Routin | 08/19/2019 | | Results for this | | | e | 5:17 AM | | procedure are in the | | | | PDT | | results section. | + +--------+ + + + | COMPREHENSIVE | Routin | 08/19/2019 | | Results for this | | METABOLIC PANEL | e | 5:17 AM | | procedure are in the | | | | PDT | | results section. | + +--------+ + + + | POC GLUCOSE (NON | Routin | 08/18/2019 | | Results for this | | ORD) | e | 8:27 PM | | procedure are in the | | | | PDT | | results section. | + +--------+ + + + | POC GLUCOSE (NON | Routin | 08/18/2019 | | Results for this | | ORD) | e | 4:41 PM | | procedure are in the | | | | PDT | | results section. | + +--------+ + + + | HEMOGLOBIN AND | SUKUMAR | 08/18/2019 | | Results for this | | HEMATOCRIT | | 3:56 PM | | procedure are in the | | | | PDT | | results section. | + +--------+ + + + | POC GLUCOSE (NON | Routin | 08/18/2019 | | Results for this | | ORD) | e | 12:40 PM | | procedure are in the | | | | PDT | | results section. | + +--------+ + + + | EGD | | 08/18/2019 | Upper GI bleeding | | | | | 11:38 AM | | | | | | PDT | | | + +--------+ + + + | *TERMED* AK UPPER GI | Routin | 08/18/2019 | | Results for this | | ENDOSCOPY,EXAM | e | 11:32 AM | | procedure are in the | | | | PDT | | results section. | + +--------+ + + + | HEMOGLOBIN AND | SUKUMAR | 08/18/2019 | | Results for this | | HEMATOCRIT | | 10:02 AM | | procedure are in the | | | | PDT | | results section. | + +--------+ + + + | PRODUCT: RBC | SUKUMAR | 08/18/2019 | | Results for this | | | | 7:54 AM | | procedure are in the | | | | PDT | | results section. | + +--------+ + + + | POC GLUCOSE (NON | Routin | 08/18/2019 | | Results for this | | ORD) | e | 7:41 AM | | procedure are in the | | | | PDT | | results section. | + +--------+ + + + | PRODUCT: RBC | SUKUMAR | 08/18/2019 | | Results for this | | | | 5:09 AM | | procedure are in the | | | | PDT | | results section. | + +--------+ + + + | LIPID PANEL | Routin | 08/18/2019 | | Results for this | | | e | 4:08 AM | | procedure are in the | | | | PDT | | results section. | + +--------+ + + + | CBC WITH | Routin | 08/18/2019 | | Results for this | | DIFFERENTIAL | e | 4:08 AM | | procedure are in the | | | | PDT | | results section. | + +--------+ + + + | MAGNESIUM | Routin | 08/18/2019 | | Results for this | | | e | 4:08 AM | | procedure are in the | | | | PDT | | results section. | + +--------+ + + + | COMPREHENSIVE | Routin | 08/18/2019 | | Results for this | | METABOLIC PANEL | e | 4:08 AM | | procedure are in the | | | | PDT | | results section. | + +--------+ + + + | PRODUCT: RBC | SUKUMAR | 08/17/2019 | | Results for this | | | | 9:31 PM | | procedure are in the | | | | PDT | | results section. | + +--------+ + + + | POC GLUCOSE (NON | Routin | 08/17/2019 | | Results for this | | ORD) | e | 9:06 PM | | procedure are in the | | | | PDT | | results section. | + +--------+ + + + | CORONAVIRUS | STAT | 08/17/2019 | | Results for this | | (COVID-19) NAAT | | 6:23 PM | | procedure are in the | | | | PDT | | results section. | + +--------+ + + + | IRON AND IRON | STAT | 08/17/2019 | | Results for this | | BINDING CAPACITY | | 5:01 PM | | procedure are in the | | | | PDT | | results section. | + +--------+ + + + | VITAMIN B-12 | STAT | 08/17/2019 | | Results for this | | | | 5:01 PM | | procedure are in the | | | | PDT | | results section. | + +--------+ + + + | VITAMIN D, | Add-On | 08/17/2019 | | Results for this | | DEFICIENCY SCREEN | | 5:01 PM | | procedure are in the | | (25-HYDROXY) | | PDT | | results section. | + +--------+ + + + | PTT | STAT | 08/17/2019 | | Results for this | | | | 5:01 PM | | procedure are in the | | | | PDT | | results section. | + +--------+ + + + | PROTIME INR | STAT | 08/17/2019 | | Results for this | | | | 5:01 PM | | procedure are in the | | | | PDT | | results section. | + +--------+ + + + | RETIC COUNT | Add-On | 08/17/2019 | | Results for this | | | | 5:01 PM | | procedure are in the | | | | PDT | | results section. | + +--------+ + + + | CBC WITH | STAT | 08/17/2019 | | Results for this | | DIFFERENTIAL | | 5:01 PM | | procedure are in the | | | | PDT | | results section. | + +--------+ + + + | HEMOGLOBIN A1C | Add-On | 08/17/2019 | | Results for this | | | | 5:01 PM | | procedure are in the | | | | PDT | | results section. | + +--------+ + + + | FOLATE | STAT | 08/17/2019 | | Results for this | | | | 5:01 PM | | procedure are in the | | | | PDT | | results section. | + +--------+ + + + | FERRITIN | STAT | 08/17/2019 | | Results for this | | | | 5:01 PM | | procedure are in the | | | | PDT | | results section. | + +--------+ + + + | COMPREHENSIVE | STAT | 08/17/2019 | | Results for this | | METABOLIC PANEL | | 5:01 PM | | procedure are in the | | | | PDT | | results section. | + +--------+ + + + | TYPE AND SCREEN | SUKUMAR | 08/17/2019 | | Results for this | | | | 4:04 PM | | procedure are in the | | | | PDT | | results section. | + +--------+ + + + | ED INFORMATION | Routin | 08/17/2019 | | | | EXCHANGE | e | 12:52 PM | | | | | | PDT | | | + +--------+ + + + +---+--------+ | | | | | Proced | | | ure | | | Note - | | | Aniket, | | | Lab In | | | | | | Hlseve | | | n - | | | | | | 2019 | | | 12:53 | | | PM PDT | | | | | | Format | | | ting | | | of | | | this | | | note | | | might | | | be | | | differ | | | ent | | | from | | | the | | | origin | | | al.COL | | | LECTIV | | | E?NOTI | | | FICATI | | | ON?/ | | | | | | 0 | | | 12:51? | | | JORDI | | | , | | | SANDRA | | | A | | | B?MRN: | | | | | | [id number] | | | [id number] | | | riteri | | | a Met | | | Care | | | Guidel | | | inesSe | | | curity | | | and | | | Safety | | | No | | | recent | | | | | | Securi | | | ty | | | Events | | | | | | curren | | | tly on | | | | | | fileED | | | Care | | | Guidel | | | inesTh | | | ere | | | are | | | curren | | | tly no | | | ED | | | Care | | | Guidel | | | christiane | | | for | | | this | | | patien | | | t. | | | Please | | | check | | | your | | | facili | | | ty's | | | medica | | | l | | | record | | | s | | | system | | | .Care | | | Histor | | | yMedic | | | al/Eboni | | | [email or web address] | | | /15/19 | | | 12:00 | | | AM | | | [facility] | | [facility] | | | al-PAT | | | IENT | | | IS A | | | YELLOW | | | [facility] | | | ELIGIB | | | LE,?? | | | PLEASE | | | REFER | | | | | | PATIEN | | | T TO | | | [facility] | | | [facility] | [facility] | | | FOR | | | NON | | | EMERGE | | | NT | | | MEDICA | | | L | | | NEEDS. | | | ?? | | | [facility] | | | [facility] | | | [facility] | | | CAN | | | SEE | | | PATIEN | | | TS | | | SAME | | | DAY | | | FOR | | | APTS | | | IF | | | PATIEN | | | T | | | CALLS | | | FIRST | | | THING | | | IN THE | | | | | | MORNIN | | | G.Pres | | | cripti | | | on | | | Drug | | | Report | | | (12 | | | Mo.)PD | | | MP | | | query | | | found | | | no | | | report | | | .E.D. | | | Visit | | | Count | | | (12 | | | mo.)Fa | | | cility | | | | | | Visits | | | Low | | | [facility] | | | | | | [facility] | | | | | | [facility] | | | al | | | Medica | | | l | | | Center | | | 1 0 | | | [facility] | | [facility] | | | al 1 0 | | | Total | | | 2 0 | | | Note: | | | Visits | | | | | | indica | | | te | | | total | | | known | | | visits | | | . | | | Medica | | | id Low | | | | | | Acuity | | | Dx | | | are | | | the | | | number | | | of | | | primar | | | y | | | diagno | | | ses on | | | the | | | Medica | | | id's | | | Low | | | Acuity | | | dx | | | list. | | | | | | Recent | | | | | | Emerge | | | ncy | | | Depart | | | ment | | | Visit | | | [facility] | | | yDate | | | Facili | | | ty | | | City | | | State | | | Type | | | Diagno | | | ses or | | | Chief | | | | | | Compla | | | int | | | Marquez 8, | | | 2020 | | | [facility] | | | | | | [facility] | | | al | | | [facility] | | | [place] | | | [place] | | | Emerge | | | ncy | | | IV | | | Medica | | | tion | | | Titi | | | 16, | | | 2020 | | | [facility] | | | [place] | | | [place] | | | Emerge | | | ncy | | | Chief | | | Compla | | | int: R | | | FOOT | | | ULCER | | | | | | Recent | | | | | | Inpati | | | ent | | | Visit | | | [facility] | | | yDate | | | Facili | | | ty | | | City | | | State | | | Type | | | Diagno | | | ses or | | | Chief | | | | | | Compla | | | int | | | Titi | | | 16, | | | 2020 | | | [facility] | | | [place] | [place] | [place] | | | Medica | | | l | | | Surgic | | | al | | | Sepsis | | | , | | | unspec | | | ified | | | organi | | | sm | | | Chroni | | | c | | | kidney | | | | | | diseas | | | e, | | | stage | | | 3 | | | (moder | | | ate) | | | | | | Non-pr | | | essure | | | | | | chroni | | | c | | | ulcer | | | of | | | other | | | part | | | of | | | right | | | foot | | | with u | | | | | | Type 2 | | | | | | diabet | | | es | | | mellit | | | us | | | with | | | other | | | specif | | | ied | | | compli | | | cation | | | | | | Type 2 | | | | | | diabet | | | es | | | mellit | | | us | | | with | | | foot | | | ulcer | | | | | | Type 2 | | | | | | diabet | | | es | | | mellit | | | us | | | with | | | diabet | | | ic | | | chroni | | | c | | | kidney | | | | | | diseas | | | e | | | Other | | | osteom | | | yeliti | | | s, | | | ankle | | | and | | | foot | | | | | | Hypert | | | ensive | | | | | | chroni | | | c | | | kidney | | | | | | diseas | | | e with | | | stage | | | 1 | | | throug | | | h stag | | | | | | Contac | | | t with | | | and | | | (suspe | | | cted) | | | exposu | | | re to | | | other | | | viral | | | commun | | | ic | | | Allerg | | | y | | | status | | | to | | | other | | | drugs, | | | | | | medica | | | ments | | | and | | | biolog | | | ical | | | sub | | | Care | | | TeamPr | | | ovider | | | | | | Specia | | | lty | | | Phone | | | Fax | | | Servic | | | e | | | Dates | | | BOURRE | | | T, | | | FLIP | | | N, PAC | | | | | | Physic | | | allison | | | Assist | | | ant: | | | Surgic | | | al | | | Feb | | | 15, | | | 2019 - | | | | | | Curren | | | t | | | Unknow | | | n | | | Clinic | | | /Cente | | | r | | | [phone] | | | 30 | | | [place]iti | | | 17, | | | 2020 - | | | | | | Curren | | | t | | | [facility]le[facility] | | | tive | | | Portal | | | This | | | patien | | | t has | | | regist | | | ered | | | at the | | | | | | [facility] | | | | | | Region | | | al | | | Medica | | | l | | | Center | | | | | | Emerge | | | ncy | | | Depart | | | ment | | | For | | | more | | | inform | | | ation | | | visit: | | | | | | https: | | | //secu | | | [email or web address] | | | lectiv | | | emedic | | | [email or web address] | | | /notif | | | [id number] | | | [id number] | | | [email or web address] | | | [email or web address] | | | [id number] | | | [id number] | | | 78 | | | PLEASE | | | NOTE: | | | 1. | | | Any | | | care | | | recomm | | | endati | | | ons | | | and | | | other | | | clinic | | | al | | | inform | | | ation | | | are | | | provid | | | ed as | | | guidel | | | christiane | | | or for | | | | | | histor | | | ical | | | purpos | | | es | | | only, | | | and | | | provid | | | ers | | | should | | | | | | exerci | | | se | | | their | | | own | | | clinic | | | al | | | judgme | | | nt | | | when | | | provid | | | ing | | | care. | | | 2. | | | You | | | may | | | only | | | use | | | this | | | inform | | | ation | | | for | | | purpos | | | es of | | | treatm | | | ent, | | | paymen | | | t or | | | health | | | care | | | operat | | | ions | | | activi | | | ties, | | | and | | | subjec | | | t to | | | the | | | limita | | | tions | | | of | | | applic | | | able | | | [facility] | | | tive | | | Polici | | | es. | | | 3. | | | You | | | should | | | | | | consul | | | t | | | direct | | | ly | | | with | | | the | | | organi | | | zation | | | that | | | provid | | | ed a | | | care | | | guidel | | | ine or | | | other | | | | | | clinic | | | al | | | histor | | | y with | | | any | | | questi | | | ons | | | about | | | additi | | | onal | | | inform | | | ation | | | or | | | accura | | | cy or | | | comple | | | teness | | | of | | | inform | | | ation | | | provid | | | ed.? | | | 2020 | | | [facility] | | | tive | | | Medica | | | l | | | Techn[employer] | | | logies | | | , Inc[employer] | | | - | | | [email or web address] | | | llecti | | | vemedi | | | [email or web address] | | | m | +---+--------+ documented in this encounter Results POC Glucose (08/19/2019 11:59 AM PDT) + + + + + + | Component | Value | Ref Range | Performed | Pathologist | | | | | At | Signature | + + + + + + | Glucose, | 116 (H)Comment: Testing | 65 - 99 mg/dL | [facility] | | | POC | performed at [facility] | | LABORATORY | | | | [address];[place] | | | | | | [address] | | | | + + + + + + + + | Specimen | + + | | + + + + + + + | Performing | Address | City/State/Zipcode | Phone Number | | Organization | | | | + + + + + | [facility] | [address] | [place] [address] | [phone] | + + + + + POC Glucose (08/19/2019 7:33 AM PDT) + + + + + + | Component | Value | Ref Range | Performed | Pathologist | | | | | At | Signature | + + + + + + | Glucose, | 69Comment: Testing | 65 - 99 mg/dL | [facility] | | | POC | performed at [facility];[address] | | LABORATORY | | | | [address];[place], [place] | | | | | | [address] | | | | + + + + + + + + | Specimen | + + | | + + + + + + + | Performing | Address | City/State/Zipcode | Phone Number | | Organization | | | | + + + + + | [facility] | [address] | [place] [address] | [phone] | + + + + + Lipid Panel (08/19/2019 5:17 AM PDT) + + + + + + | Component | Value | Ref Range | Performed | Pathologist | | | | | At | Signature | + + + + + + | Cholesterol | 121 | <200 mg/dL | [facility] | | | | | | LABORATORY | | + + + + + + | Triglycerid | 211 (H) | <150 mg/dL | [facility] | | | es | | | LABORATORY | | + + + + + + | HDL | 36 (L) | >40 mg/dL | [facility] | | | | | | LABORATORY | | + + + + + + | LDL, | 43Comment: Testing | <100 mg/dL | [facility] | | | Calculated | performed at [facility], [address] | | LABORATORY | | | | [address], | | | | | | [place] [address] | | | | + + + + + + + + | Specimen | + + | | + + + + + + + | Performing | Address | City/State/Zipcode | Phone Number | | Organization | | | | + + + + + | [facility] | [address] | [place] [address] | [phone] | + + + + + Magnesium (08/19/2019 5:17 AM PDT) + + + + + + | Component | Value | Ref Range | Performed | Pathologist | | | | | At | Signature | + + + + + + | Magnesium | 1.7Comment: Testing | 1.7 - 2.4 mg/dL | [facility] | | | | performed at [facility] | | LABORATORY | | | | [address];[place] | | | | | | [address] | | | | + + + + + + + + | Specimen | + + | Blood | + + + + + + + | Performing | Address | City/State/Zipcode | Phone Number | | Organization | | | | + + + + + | [facility] | [address] | [place] [address] | [phone] | + + + + + Comprehensive Metabolic Panel (08/19/2019 5:17 AM PDT) + + + + + + | Component | Value | Ref Range | Performed | Pathologist | | | | | At | Signature | + + + + + + | Na | 140 | 135 - 145 | [facility] | | | | | mmol/L | LABORATORY | | + + + + + + | K | 4.5 | 3.5 - 4.9 | [facility] | | | | | mmol/L | LABORATORY | | + + + + + + | Cl | 112 (H) | 99 - 109 mmol/L | [facility] | | | | | | LABORATORY | | + + + + + + | CO2 | 20 (L) | 23 - 32 mmol/L | [facility] | | | | | | LABORATORY | | + + + + + + | Anion Gap | 13 | 5 - 20 mmol/L | [facility] | | | | | | LABORATORY | | + + + + + + | Glucose | 55 (L) | 65 - 99 mg/dL | [facility] | | | | | | LABORATORY | | + + + + + + | BUN | 26 (H) | 8 - 25 mg/dL | [facility] | | | | | | LABORATORY | | + + + + + + | Creatinine | 1.30 (H) | 0.50 - 1.00 | [facility] | | | | | mg/dL | LABORATORY | | + + + + + + | BUN/Creatin | 20 | | [facility] | | | ine Ratio | | | LABORATORY | | + + + + + + | Calcium | 8.5 | 8.5 - 10.5 | [facility] | | | | | mg/dL | LABORATORY | | + + + + + + | Protein, | 6.6 | 6.3 - 8.2 g/dL | [facility] | | | Total | | | LABORATORY | | + + + + + + | Albumin | 2.2 (L) | 3.6 - 5.0 g/dL | [facility] | | | | | | LABORATORY | | + + + + + + | Globulin | 4.4 | 1.3 - 4.9 g/dL | [facility] | | | | | | LABORATORY | | + + + + + + | A/G Ratio | 0.5 (L) | 1.0 - 2.4 | [facility] | | | | | | LABORATORY | | + + + + + + | BILIRUBIN, | 0.3 | 0.1 - 1.5 mg/dL | [facility] | | | TOTAL | | | LABORATORY | | + + + + + + | ALK PHOS | 69 | 35 - 115 U/L | [facility] | | | | | | LABORATORY | | + + + + + + | AST | 12 | 10 - 45 U/L | [facility] | | | | | | LABORATORY | | + + + + + + | ALT | 15 | 10 - 65 U/L | [facility] | | | | | | LABORATORY | | + + + + + + | Estimated | 44 (L)Comment: GFR <60: | >60 | [facility] [...] | | | | | performed at [facility], [address] | | | | | | [address], | | | | | | [place] [address] | | | | + + + + + + + + | Specimen | + + | Blood | + + + + + + + | Performing | Address | City/State/Zipcode | Phone Number | | Organization | | | | + + + + + | [facility] | [address] | [place] [address] | [phone] | + + + + + CBC no Differential (08/19/2019 5:17 AM PDT) + + + + + + | Component | Value | Ref Range | Performed | Pathologist | | | | | At | Signature | + + + + + + | WBC | 8.79 | 3.80 - 11.00 | [facility] | | | | | K/uL | LABORATORY | | + + + + + + | Red Blood | 2.72 (L) | 3.70 - 5.10 | [facility] | | | Cells | | M/uL | LABORATORY | | + + + + + + | Hemoglobin | 8.0 (L) | 11.3 - 15.5 | [facility] | | | | | g/dL | LABORATORY | | + + + + + + | Hematocrit | 24.8 (L) | 34.0 - 46.0 % | [facility] | | | | | | LABORATORY | | + + + + + + | MCV | 91.2 | 80.0 - 100.0 fl | [facility] | | | | | | LABORATORY | | + + + + + + | MCH | 29.4 | 27.0 - 34.0 pg | [facility] | | | | | | LABORATORY | | + + + + + + | MCHC | 32.3 | 32.0 - 35.5 | [facility] | | | | | g/dL | LABORATORY | | + + + + + + | RDW-SD | 50.3 | 37 - 53 fl | [facility] | | | | | | LABORATORY | | + + + + + + | Platelet | 377 | 150 - 400 K/uL | [facility] | | | Count | | | LABORATORY | | + + + + + + | MPV | 10.0Comment: NO NORMAL | fl | [facility] | | | | RANGE ESTABLISHEDTesting | | LABORATORY | | | | performed at [facility], [address] | | | | | [address] [facility], | | | | | | [place] [address] | | | | + + + + + + + + | Specimen | + + | Blood | + + + + + + + | Performing | Address | City/State/Zipcode | Phone Number | | Organization | | | | + + + + + | [facility] | [address] | [place] [address] | [phone] | + + + + + POC Glucose (08/18/2019 8:27 PM PDT) + + + + + + | Component | Value | Ref Range | Performed | Pathologist | | | | | At | Signature | + + + + + + | Glucose, | 79Comment: Testing | 65 - 99 mg/dL | [facility] | | | POC | performed at [facility] | | LABORATORY | | | | [address];[place] | | | | | | [address] | | | | + + + + + + + + | Specimen | + + | | + + + + + + + | Performing | Address | City/State/Zipcode | Phone Number | | Organization | | | | + + + + + | [facility] | [address] | [place] [address] | [phone] | + + + + + POC Glucose (08/18/2019 4:41 PM PDT) + + + + + + | Component | Value | Ref Range | Performed | Pathologist | | | | | At | Signature | + + + + + + | Glucose, | 108 (H)Comment: Testing | 65 - 99 mg/dL | [facility] | | | POC | performed at [facility] | | LABORATORY | | | | [address];[place] | | | | | | [address] | | | | + + + + + + + + | Specimen | + + | | + + + + + + + | Performing | Address | City/State/Zipcode | Phone Number | | Organization | | | | + + + + + | [facility] | [address] | [place] [address] | [phone] | + + + + + Hemoglobin and Hematocrit (08/18/2019 3:56 PM PDT) + + + + + + | Component | Value | Ref Range | Performed | Pathologist | | | | | At | Signature | + + + + + + | Hemoglobin | 7.8 (L) | 11.3 - 15.5 | [facility] | | | | | g/dL | LABORATORY | | + + + + + + | Hematocrit | 24.7 (L)Comment: Testing | 34.0 - 46.0 % | [facility] | | | | performed at [facility] | | LABORATORY | | | | [address];[place] | | | | | | [address] | | | | + + + + + + + + | Specimen | + + | Blood | + + + + + + + | Performing | Address | City/State/Zipcode | Phone Number | | Organization | | | | + + + + + | [facility] | [address] | [place] [address] | [phone] | + + + + + POC Glucose (08/18/2019 12:40 PM PDT) + + + + + + | Component | Value | Ref Range | Performed | Pathologist | | | | | At | Signature | + + + + + + | Glucose, | 175 (H)Comment: Testing | 65 - 99 mg/dL | [facility] | | | POC | performed at [facility];[address] | | LABORATORY | | | | [address];[place] | | | | | | [address] | | | | + + + + + + + + | Specimen | + + | | + + + + + + + | Performing | Address | City/State/Zipcode | Phone Number | | Organization | | | | + + + + + | [facility] | [address] | [place] [address] | [phone] | + + + + + EGD (08/18/2019 11:32 AM PDT) + + | Specimen | + + | | + + + + + | Narrative | Performed At | + + + | [facility] | [facility] | | [facility] | [facility] | | Center[facility]enterology | | | Patient Name: July Forte | | | Sapna Procedure Date: 08/18/2019 11:32 AMMRN: [id number] | | | of : 1970 | | | Note Status: FinalizedAttending MD: STEPAN España | | | MD DONY | | | | | | Procedure Type: Upper GI | | | endoscopyIndications: Suspected upper | | | gastrointestinal bleedingProviders: STEPAN Aponte | | | Antonieta NAPOLESs: Monitored Anesthesia | | | CareComplications: No immediate | | | complications. | | | Procedure: Pre-Anesthesia Assessment: | | | - Prior to the procedure, a History and Physical was performed, and | | | patient medications and allergies were reviewed. The patient | | | is competent. The risks and benefits of the procedure and the | | | sedation options and risks were discussed with the patient. All | | | questions were answered and informed consent was obtained. | | | Patient identification and proposed procedure were verified by | | | the physician, the nurse, the anesthesiologist and the | | | boiler technician in the pre-procedure area in the procedure room. | | | Mental Status Examination: alert and oriented. Airway | | | Examination: normal oropharyngeal airway and neck mobility. | | | Respiratory Examination: clear to auscultation. CV Examination: | | | normal. Prophylactic Antibiotics: The patient does not require | | | prophylactic antibiotics. Prior Anticoagulants: The patient | | | has taken no previous anticoagulant or antiplatelet agents. ASA | | | Grade Assessment: III - A patient with severe systemic | | | disease. After reviewing the risks and benefits, the patient | | | was deemed in satisfactory condition to undergo the procedure. The | | | anesthesia plan was to use monitored anesthesia care (MAC). | | | Immediately prior to administration of medications, the patient | | | was re-assessed for adequacy to receive sedatives. The heart | | | rate, respiratory rate, oxygen saturations, blood pressure, | | | adequacy of pulmonary ventilation, and response to care were | | | monitored throughout the procedure. The physical status of the | | | patient was re-assessed after the procedure. - Prior Aspirin/ | | | NSAID therapy: The patient has taken no previous aspirin or | | | NSAID medications. After obtaining informed consent, the | | | endoscope was passed under direct vision. Throughout the | | | procedure, the patient's blood pressure, pulse, and oxygen | | | saturations were monitored continuously. The Endoscope was | | | introduced through the mouth, and advanced to the third part of | | | duodenum. The upper GI endoscopy was accomplished without difficulty. | | | The patient tolerated the procedure well. | | | | | | Estimated Blood Loss: Estimated blood | | | loss: none.Findings: The examined esophagus was normal. 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 Vaporization for hemostasis using argon | | | plasma at 0.4 liters/minute and 20 dumont was successful. | | | Estimated blood loss was minimal. The exam of the stomach | | | was otherwise normal. The cardia and gastric fundus were normal | | | on retroflexion. The examined duodenum was normal. | | | | | | Impression: - Normal | | | esophagus. - Gastric antral vascular ectasia with bleeding. | | | Treated with argon plasma coagulation (APC). - Normal | | | examined duodenum. - No specimens collected.Recommendation: | | | - Return patient to [facility] for ongoing care. - Clear | | | liquid diet today. - Continue present medications. - | | | Repeat upper endoscopy in 4 weeks for retreatment. - No aspirin, | | | ibuprofen, naproxen, or other non-steroidal anti-inflammatory | | | drugs. - The findings and recommendations were discussed with | | | the patient. STEPAN NAPOLES MD08/18/2019 12:27:34 | | | PMThis report has been signed electronically. Note Initiated On: | | | 08/18/2019 11:32 AMNumber of Addenda: [address] [facility] | | | Center | | | - The findings and recommendations were discussed with the patient. | | | | | | | | |STEPAN NAPOLES MD | | |08/18/2019 12:27:34 PM | | |This report has been signed electronically. | | | | | |Note Initiated On: 08/18/2019 11:32 AM | | |Number of Addenda: 0 | | | | | | [facility] | | + + + + +---------+ + + | Performing | Address | City/State/Zipcode | Phone Number | | Organization | | | | + +---------+ + + | [facility] | | | | + +---------+ + + Hemoglobin and Hematocrit (08/18/2019 10:02 AM PDT) + + + + + + | Component | Value | Ref Range | Performed | Pathologist | | | | | At | Signature | + + + + + + | Hemoglobin | 8.0 (L) | 11.3 - 15.5 | [facility] | | | | | g/dL | LABORATORY | | + + + + + + | Hematocrit | 25.1 (L)Comment: Testing | 34.0 - 46.0 % | [facility] | | | | performed at [facility];[address] | | LABORATORY | | | | [address];[place], [place] | | | | | | [address] | | | | + + + + + + + + | Specimen | + + | Blood | + + + + + + + | Performing | Address | City/State/Zipcode | Phone Number | | Organization | | | | + + + + + | [facility] | [address] | [place] [address] | [phone] | + + + + + Red Blood Cells (PRBC) - Crossmatch and Hold (08/18/2019 7:54 AM PDT) + + + + + + | Component | Value | Ref Range | Performed | Pathologist | | | | | At | Signature | + + + + + + | Product | RED CELL GROUP | | [facility] | | | Code | | | LABORATORY | | + + + + + + | Units | 2 | | [facility] | | | ordered | | | LABORATORY | | + + + + + + | BLOOD BANK | ORDER RECEIVED IN BLOOD | | [facility] | | | COMMENT | BANK. | | LABORATORY | | + + + + + + | BLOOD BANK | Testing performed at | | [facility] | | | COMMENT | [facility];[address] | LABORATORY | | | [address];[place] [address] | | | | + + + + + + + + | Specimen | + + | | + + + + + + + | Performing | Address | City/State/Zipcode | Phone Number | | Organization | | | | + + + + + | [facility] | [address] | [place] [address] | [phone] | + + + + + POC Glucose (08/18/2019 7:41 AM PDT) + + + + + + | Component | Value | Ref Range | Performed | Pathologist | | | | | At | Signature | + + + + + + | Glucose, | 84Comment: Testing | 65 - 99 mg/dL | [facility] | | | POC | performed at [facility];[address] | | LABORATORY | | | | [address];[place] | | | | | | [address] | | | | + + + + + + + + | Specimen | + + | | + + + + + + + | Performing | Address | City/State/Zipcode | Phone Number | | Organization | | | | + + + + + | [facility] | [address] | [place] [address] | [phone] | + + + + + Red Blood Cells (PRBC) - Crossmatch (08/18/2019 5:09 AM PDT) + + + + + + | Component | Value | Ref Range | Performed | Pathologist | | | | | At | Signature | + + + + + + | Product | RED CELL GROUP | | [facility] | | | Code | | | LABORATORY | | + + + + + + | Units | 1 | | [facility] | | | ordered | | | LABORATORY | | + + + + + + | BLOOD BANK | ORDER RECEIVED IN BLOOD | | [facility] | | | COMMENT | BANK. | | LABORATORY | | + + + + + + | BLOOD BANK | Testing performed at | | [facility] | | | COMMENT | [facility];[address] | | LABORATORY | | | | [address];[place] [address] | | | | + + + + + + + + | Specimen | + + | | + + + + + + + | Performing | Address | City/State/Zipcode | Phone Number | | Organization | | | | + + + + + | [facility] | [address] | [place] [address] | [phone] | + + + + + Magnesium (08/18/2019 4:08 AM PDT) + + + + + + | Component | Value | Ref Range | Performed | Pathologist | | | | | At | Signature | + + + + + + | Magnesium | 2.0Comment: Testing | 1.7 - 2.4 mg/dL | [facility] | | | | performed at [facility];[address] | | LABORATORY | | | | [address];[place], [place] | | | | | | [address] | | | | + + + + + + + + | Specimen | + + | | + + + + + + + | Performing | Address | City/State/Zipcode | Phone Number | | Organization | | | | + + + + + | [facility] | [address] | [place] [address] | [phone] | + + + + + Lipid Panel (08/18/2019 4:08 AM PDT) + + + + + + | Component | Value | Ref Range | Performed | Pathologist | | | | | At | Signature | + + + + + + | Cholesterol | 118 | <200 mg/dL | [facility] | | | | | | LABORATORY | | + + + + + + | Triglycerid | 201 (H) | <150 mg/dL | [facility] | | | es | | | LABORATORY | | + + + + + + | HDL | 34 (L) | >40 mg/dL | [facility] | | | | | | LABORATORY | | + + + + + + | LDL, | 44Comment: Testing | <100 mg/dL | [facility] | | | Calculated | performed at [facility], [address] | | LABORATORY | | | | [address], | | | | | | [place] [address] | | | | + + + + + + + + | Specimen | + + | | + + + + + + + | Performing | Address | City/State/Zipcode | Phone Number | | Organization | | | | + + + + + | [facility] | [address] | [place] [address] | [phone] | + + + + + Comprehensive Metabolic Panel (08/18/2019 4:08 AM PDT) + + + + + + | Component | Value | Ref Range | Performed | Pathologist | | | | | At | Signature | + + + + + + | Na | 139 | 135 - 145 | [facility] | | | | | mmol/L | LABORATORY | | + + + + + + | K | 4.8 | 3.5 - 4.9 | [facility] | | | | | mmol/L | LABORATORY | | + + + + + + | Cl | 109 | 99 - 109 mmol/L | [facility] | | | | | | LABORATORY | | + + + + + + | CO2 | 24 | 23 - 32 mmol/L | [facility] | | | | | | LABORATORY | | + + + + + + | Anion Gap | 11 | 5 - 20 mmol/L | [facility] | | | | | | LABORATORY | | + + + + + + | Glucose | 70 | 65 - 99 mg/dL | [facility] | | | | | | LABORATORY | | + + + + + + | BUN | 45 (H) | 8 - 25 mg/dL | [facility] | | | | | | LABORATORY | | + + + + + + | Creatinine | 1.58 (H) | 0.50 - 1.00 | [facility] | | | | | mg/dL | LABORATORY | | + + + + + + | BUN/Creatin | 28 | | [facility] | | | ine Ratio | | | LABORATORY | | + + + + + + | Calcium | 8.2 (L) | 8.5 - 10.5 | [facility] | | | | | mg/dL | LABORATORY | | + + + + + + | Protein, | 6.1 (L) | 6.3 - 8.2 g/dL | [facility] | | | Total | | | LABORATORY | | + + + + + + | Albumin | 3.2 (L) | 3.6 - 5.0 g/dL | [facility] | | | | | | LABORATORY | | + + + + + + | Globulin | 2.9 | 1.3 - 4.9 g/dL | [facility] | | | | | | LABORATORY | | + + + + + + | A/G Ratio | 1.1 | 1.0 - 2.4 | [facility] | | | | | | LABORATORY | | + + + + + + | BILIRUBIN, | 0.3 | 0.1 - 1.5 mg/dL | [facility] | | | TOTAL | | | LABORATORY | | + + + + + + | ALK PHOS | 76 | 35 - 115 U/L | [facility] | | | | | | LABORATORY | | + + + + + + | AST | 14 | 10 - 45 U/L | [facility] | | | | | | LABORATORY | | + + + + + + | ALT | 12 | 10 - 65 U/L | [facility] | | | | | | LABORATORY | | + + + + + + | Estimated | 35 (L)Comment: GFR <60: | >60 | [facility] | | | GFR | CHRONIC KIDNEY [...] | | | | | performed at [facility] | | | | | | [facility];[place], [place] | | | | | | [address] | | | | + + + + + + + + | Specimen | + + | | + + + + + + + | Performing | Address | City/State/Zipcode | Phone Number | | Organization | | | | + + + + + | [facility] | [address] | [place] [address] | [phone] | + + + + + CBC with Differential (08/18/2019 4:08 AM PDT) + + + + + + | Component | Value | Ref Range | Performed | Pathologist | | | | | At | Signature | + + + + + + | WBC | 9.21 | 3.80 - 11.00 | [facility] | | | | | K/uL | LABORATORY | | + + + + + + | Red Blood | 2.21 (L) | 3.70 - 5.10 | [facility] | | | Cells | | M/uL | LABORATORY | | + + + + + + | Hemoglobin | 6.6 (LL)Comment: CALLED | 11.3 - 15.5 | [facility] | | | | TO KAREN De Luna RN/4E AT | g/dL | LABORATORY | | | | [phone] BY MWREAD BACK | | | | | | RESULTS VERIFIED | | | | | | | | | | + + + + + + | Hematocrit | 20.9 (LL)Comment: CALLED | 34.0 - 46.0 % | [facility] | | | | TO KAREN De Luna RN/4E AT | | LABORATORY | | | | 0442 BY MWREAD BACK | | | | | | RESULTS VERIFIED | | | | | | | | | | + + + + + + | MCV | 94.6 | 80.0 - 100.0 fl | [facility] | | | | | | LABORATORY | | + + + + + + | MCH | 29.9 | 27.0 - 34.0 pg | [facility] | | | | | | LABORATORY | | + + + + + + | MCHC | 31.6 (L) | 32.0 - 35.5 | [facility] | | | | | g/dL | LABORATORY | | + + + + + + | RDW-SD | 51.8 | 37 - 53 fl | [facility] | | | | | | LABORATORY | | + + + + + + | Platelet | 395 | 150 - 400 K/uL | [facility] [...] + + + + | % | 62.80 | % | [facility] | | | Neutrophils | | | LABORATORY | | + + + + + + | IMMATURE | 0.50 | % | [facility] | | | GRANULOCYTE | | | LABORATORY | | + + + + + + | % | 21.70 | % | [facility] | | | Lymphocytes | | | LABORATORY | | + + + + + + | Monocyte % | 8.50 | % | [facility] | | | | | | LABORATORY | | + + + + + + | Eosinophils | 6.40 | % | [facility] | | | % | | | LABORATORY | | + + + + + + | Basophils % | 0.10 | % | [facility] | | | | | | LABORATORY | | + + + + + + | Neutrophils | 5.78 | 1.90 - 7.40 | [facility] | | | , Absolute | | K/uL | LABORATORY | | + + + + + + | IMMATURE | 0.05Comment: NOTE NEW | 0.00 - 0.07 | [facility] | | | GRANS AB | REFERENCE RANGE | K/uL | LABORATORY | | + + + + + + | Absolute | 2.00 | 1.00 - 3.90 | [facility] | | | Lymphocytes | | K/uL | LABORATORY | | + + + + + + | Absolute | 0.78 | 0.00 - 0.80 | [facility] | | | Monocytes | | K/uL | LABORATORY | | + + + + + + | Eosinophils | 0.59 (H) | 0.00 - 0.50 | [facility] | | | , Absolute | | K/uL | LABORATORY | | + + + + + + | Basophils, | 0.01Comment: Testing | 0.00 - 0.10 | [facility] | | | Absolute | performed at [facility] | K/uL | LABORATORY | | | | [address];[place] | | | | | | [address] | | | | + + + + + + + + | Specimen | + + | | + + + + + + + | Performing | Address | City/State/Zipcode | Phone Number | | Organization | | | | + + + + + | [facility] | [address] | [place] [address] | [phone] | + + + + + Red Blood Cells (PRBC) - Crossmatch (08/17/2019 9:31 PM PDT) + + + + + + | Component | Value | Ref Range | Performed | Pathologist | | | | | At | Signature | + + + + + + | Product | RED CELL GROUP | | [facility] | | | Code | | | LABORATORY | | + + + + + + | Units | 2 | | [facility] | | | ordered | | | LABORATORY | | + + + + + + | BLOOD BANK | ORDER RECEIVED IN BLOOD | | | | | COMMENT | BANK. | | | | + + + + + + | BLOOD BANK | Testing performed at | | | | | COMMENT | [facility] [facility] | | | | | | [address]vd;[place] [address] | | | | + + + + + + + + | Specimen | + + | | + + + + + + + | Performing | Address | City/State/Zipcode | Phone Number | | Organization | | | | + + + + + | [facility] | [address] | [place] [address] | [phone] | + + + + + POC Glucose (08/17/2019 9:06 PM PDT) + + + + + + | Component | Value | Ref Range | Performed | Pathologist | | | | | At | Signature | + + + + + + | Glucose, | 153 (H)Comment: Testing | 65 - 99 mg/dL | [facility] | | | POC | performed at [facility];[address] | | LABORATORY | | | | [address];[place], [place] | | | | | | [address] | | | | + + + + + + + + | Specimen | + + | | + + + + + + + | Performing | Address | City/State/Zipcode | Phone Number | | Organization | | | | + + + + + | [facility] | [address] | [place] [address] | [phone] | + + + + + Coronavirus (COVID-19) NAAT (08/17/2019 6:23 PM PDT) + + + + + + | Component | Value | Ref Range | Performed | Pathologist | | | | | At | Signature | + + + + + + | SARS-CoV-2, | NEGATIVEComment: This | NEG | [facility] | | | NAAT | test was developed and | | LABORATORY | | | (COVID-19) | its performance | | | | | | characteristics | | | | | | determined byCepheid. It | | | | | | has not been cleared or | | | | | | approved by the [place] FDA. | | | | | | This test has | | | | | | beenauthorized by FDA | | | | | | under an Emergency Use | | | | | | Authorization (EUA). | | | | | | Clinicians shouldbe | | | | | | advised to consider a | | | | | | patients signs, | | | | | | symptoms, history, and | | | | | | results ofother | | | | | | diagnostic tests when | | | | | | interpreting | | | | | | results.Testing | | | | | | performed at [facility] | | | | | | [facility];[place], [place] | | | | | | [address] | | | | + + + + + + + + | Specimen | + + | Tissue - Entire | | nasopharynx (body | | structure) | + + + + + + + | Performing | Address | City/State/Zipcode | Phone Number | | Organization | | | | + + + + + | [facility] | [address] | [place] [address] | [phone] | + + + + + Vitamin D, Deficiency Screen (25-Hydroxy) (08/17/2019 5:01 PM PDT) + + + + + + | Component | Value | Ref Range | Performed | Pathologist | | | | | At | Signature | + + + + + + | Vit D, | 35.0Comment: Vitamin D | 30.0 - 100.0 | [facility] | | | 25-Hydroxy | deficiency has been | ng/mL | LABORATORY | | | | defined by the [place] | | | | | | of[facility] and an | | | | | | Endocrine Society | | | | | | practice guideline as | | | | | | alevel of serum 25-OH | | | | | | vitamin D less than 20 | | | | | | ng/mL (1,2).The | | | | | | Endocrine Society went | | | | | | on to further define | | | | | | vitamin Dinsufficiency | | | | | | as a level between 21 | | | | | | and 29 ng/mL (2).1. IOM | | | | | | ([place] of Medicine). | | | | | | 2009. Dietary reference | | | | | | intakes for calcium | | | | | | and D. [place]: | | | | | | The National Academies | | | | | | Press.2. Mary MF, | | | | | | Rosita [place], | | | | | | Misael SCHREIBER, et | | | | | | al. Evaluation, | | | | | | treatment, and | | | | | | prevention of vitamin D | | | | | | deficiency: an | | | | | | Endocrine Society | | | | | | clinical practice | | | | | | guideline. JCEM. 2010 | | | | | | Aug; | | | | | | 96(7):1911-30.Testing | | | | | | performed at [facility], | | | | | | [address], [address], | | | | | | [facility] [address] | | | | + + + + + + + + | Specimen | + + | Blood | + + + + + + + | Performing | Address | City/State/Zipcode | Phone Number | | Organization | | | | + + + + + | [facility] | [address] | [place] [address] | [phone] | + + + + + Retic Count (08/17/2019 5:01 PM PDT) + + + + + + | Component | Value | Ref Range | Performed | Pathologist | | | | | At | Signature | + + + + + + | % | 6.1 (H)Comment: Testing | 0.4 - 2.7 % | [facility] | | | Reticulocyt | performed at [facility];[address] | | LABORATORY | | | e Count | [address];[place], [place] | | | | | | [address] | | | | + + + + + + + + | Specimen | + + | Blood | + + + + + + + | Performing | Address | City/State/Zipcode | Phone Number | | Organization | | | | + + + + + | [facility] | [address] | [place] [address] | [phone] | + + + + + Hemoglobin A1C (08/17/2019 5:01 PM PDT) + + + + + + | Component | Value | Ref Range | Performed | Pathologist | | | | | At | Signature | + + + + + + | Hemoglobin | 7.1 (H)Comment: | 4.8 - 5.6 % | [facility] | | | A1c | Prediabetes: 5.7 - | | LABORATORY | | | | 6.4 Diabetes: | | | | | | >6.4 | | | | | | Glycemic control for | | | | | | adults with diabetes: | | | | | | <7.0Testing performed at | | | | | | [facility], [address], | | | | | | [address], [facility] | | | | | | [address] | | | | + + + + + + + + | Specimen | + + | Blood | + + + + + + + | Performing | Address | City/State/Zipcode | Phone Number | | Organization | | | | + + + + + | [facility] | [address] | [place] [address] | [phone] | + + + + + Folate (08/17/2019 5:01 PM PDT) + + + + + + | Component | Value | Ref Range | Performed | Pathologist | | | | | At | Signature | + + + + + + | FOLATE | 17.2Comment: A serum | >3.0 ng/mL | [facility] | | | | folate concentration of | | LABORATORY | | | | less than 3.1 ng/mL | | | | | | isconsidered to | | | | | | represent clinical | | | | | | deficiency.Testing | | | | | | performed at [facility], | | | | | | [address], [address], | | | | | | [facility] [address] | | | | + + + + + + + + | Specimen | + + | Blood | + + + + + + + | Performing | Address | City/State/Zipcode | Phone Number | | Organization | | | | + + + + + | [facility] | [address] | [place] [address] | [phone] | + + + + + Vitamin B-12 (08/17/2019 5:01 PM PDT) + + + + + + | Component | Value | Ref Range | Performed | Pathologist | | | | | At | Signature | + + + + + + | VITAMIN | 578Comment: Testing | 232 - 1,245 | [facility] | | | B-12 | performed at [facility], | pg/mL | LABORATORY | | | | [address], [address], | | | | | | [place] [address] | | | | + + + + + + + + | Specimen | + + | Blood | + + + + + + + | Performing | Address | City/State/Zipcode | Phone Number | | Organization | | | | + + + + + | [facility] | [address] | [place] [address] | [phone] | + + + + + Iron and Iron Binding Capacity (08/17/2019 5:01 PM PDT) + + + + + + | Component | Value | Ref Range | Performed | Pathologist | | | | | At | Signature | + + + + + + | Iron | 27 (L) | 30 - 180 ug/dL | [facility] | | | | | | LABORATORY | | + + + + + + | Iron | 322 | 260 - 490 ug/dL | [facility] | | | Binding | | | LABORATORY | | | Capacity | | | | | + + + + + + | Iron | 8 (L)Comment: Testing | 15 - 50 % | [facility] | | | Saturation | performed at [facility], [address] | | LABORATORY | | | | [address], | | | | | | [place] [address] | | | | + + + + + + + + | Specimen | + + | Blood | + + + + + + + | Performing | Address | City/State/Zipcode | Phone Number | | Organization | | | | + + + + + | [facility] | [address] | [place] [address] | [phone] | + + + + + Ferritin (08/17/2019 5:01 PM PDT) + + + + + + | Component | Value | Ref Range | Performed | Pathologist | | | | | At | Signature | + + + + + + | Ferritin | 40Comment: Testing | 15 - 150 ng/mL | [facility] | | | | performed at [facility], | | LABORATORY | | | | [address], [address], | | | | | | [facility] [address] | | | | + + + + + + + + | Specimen | + + | Blood | + + + + + + + | Performing | Address | City/State/Zipcode | Phone Number | | Organization | | | | + + + + + | [facility] | [address] | [place] [address] | [phone] | + + + + + PTT (08/17/2019 5:01 PM PDT) + + + + + + | Component | Value | Ref Range | Performed | Pathologist | | | | | At | Signature | + + + + + + | PTT | 22 (L)Comment: Testing | 23 - 32 seconds | [facility] | | | | performed at [facility] | | LABORATORY | | | | [address];[place], [place] | | | | | | [address] | | | | + + + + + + + + | Specimen | + + | Blood | + + + + + + + | Performing | Address | City/State/Zipcode | Phone Number | | Organization | | | | + + + + + | [facility] | [address] | [place] [address] | [phone] | + + + + + Protime INR (08/17/2019 5:01 PM PDT) + + + + + + | Component | Value | Ref Range | Performed | Pathologist | | | | | At | Signature | + + + + + + | INR | 1.0Comment: REFERENCE | | [facility] | | | | RANGE:0.9 - 1.2 | | LABORATORY | | | | NON-ANTICOAGULATED2.0 | | | | | | - 3.0 ALL OTHER | | | | | | THERAPEUTIC | | | | | | INDICATIONS2.5 - 3.5 | | | | | | MECHANICAL HEART VALVES, | | | | | | RECURRENT OR SYSTEMIC | | | | | | EMBOLISMTesting | | | | | | performed at [facility] | | | | | | [facility];[place], [place] | | | | | | [address] | | | | + + + + + + + + | Specimen | + + | Blood | + + + + + + + | Performing | Address | City/State/Zipcode | Phone Number | | Organization | | | | + + + + + | [facility] | [address] | [place] [address] | [phone] | + + + + + Comprehensive Metabolic Panel (08/17/2019 5:01 PM PDT) + + + + + + | Component | Value | Ref Range | Performed | Pathologist | | | | | At | Signature | + + + + + + | Na | 137 | 135 - 145 | [facility] | | | | | mmol/L | LABORATORY | | + + + + + + | K | 4.6 | 3.5 - 4.9 | [facility] | | | | | mmol/L | LABORATORY | | + + + + + + | Cl | 104 | 99 - 109 mmol/L | [facility] | | | | | | LABORATORY | | + + + + + + | CO2 | 25 | 23 - 32 mmol/L | [facility] | | | | | | LABORATORY | | + + + + + + | Anion Gap | 13 | 5 - 20 mmol/L | [facility] | | | | | | LABORATORY | | + + + + + + | Glucose | 263 (H) | 65 - 99 mg/dL | [facility] | | | | | | LABORATORY | | + + + + + + | BUN | 53 (H) | 8 - 25 mg/dL | [facility] | | | | | | LABORATORY | | + + + + + + | Creatinine | 1.90 (H) | 0.50 - 1.00 | [facility] | | | | | mg/dL | LABORATORY | | + + + + + + | BUN/Creatin | 28 | | [facility] | | | ine Ratio | | | LABORATORY | | + + + + + + | Calcium | 8.6 | 8.5 - 10.5 | [facility] | | | | | mg/dL | LABORATORY | | + + + + + + | Protein, | 6.9 | 6.3 - 8.2 g/dL | [facility] | | | Total | | | LABORATORY | | + + + + + + | Albumin | 3.7 | 3.6 - 5.0 g/dL | [facility] | | | | | | LABORATORY | | + + + + + + | Globulin | 3.2 | 1.3 - 4.9 g/dL | [facility] | | | | | | LABORATORY | | + + + + + + | A/G Ratio | 1.2 | 1.0 - 2.4 | [facility] | | | | | | LABORATORY | | + + + + + + | BILIRUBIN, | 0.2 | 0.1 - 1.5 mg/dL | [facility] | | | TOTAL | | | LABORATORY | | + + + + + + | ALK PHOS | 94 | 35 - 115 U/L | [facility] | | | | | | LABORATORY | | + + + + + + | AST | 15 | 10 - 45 U/L | [facility] | | | | | | LABORATORY | | + + + + + + | ALT | 17 | 10 - 65 U/L | [facility] | | | | | | LABORATORY | | + + + + + + | Estimated | 28 (L)Comment: GFR <60: | >60 | [facility] | | | GFR | CHRONIC KIDNEY [...] | | | | | | [facility] traceable | | | | | | equation.Testing | | | | | | performed at [facility];[address] | | | | | | [address];[place], [place] | | | | | | [address] | | | | + + + + + + + + | Specimen | + + | Blood | + + + + + + + | Performing | Address | City/State/Zipcode | Phone Number | | Organization | | | | + + + + + | [facility] | [address] | [place] [address] | [phone] | + + + + + CBC with Differential (08/17/2019 5:01 PM PDT) + + + + + + | Component | Value | Ref Range | Performed | Pathologist | | | | | At | Signature | + + + + + + | WBC | 9.29 | 3.80 - 11.00 | [facility] | | | | | K/uL | LABORATORY | | + + + + + + | Red Blood | 1.75 (L) | 3.70 - 5.10 | [facility] | | | Cells | | M/uL | LABORATORY | | + + + + + + | Hemoglobin | 5.3 (LL) | 11.3 - 15.5 | [facility] | | | | Comment: | g/dL | LABORATORY | | | | CALLED PHYSICIAN | | | | | | REINA/DR THORNE @17:11, MYV | | | | | | | | | | + + + + + + | Hematocrit | 17.3 (LL) | 34.0 - 46.0 % | [facility] | | | | Comment: | | LABORATORY | | | | CALLED PHYSICIAN | | | | | | REINA/DR THORNE @17:11, MYV | | | | | | | | | | + + + + + + | MCV | 98.9 | 80.0 - 100.0 fl | [facility] | | | | | | LABORATORY | | + + + + + + | MCH | 30.3 | 27.0 - 34.0 pg | [facility] | | | | | | LABORATORY | | + + + + + + | MCHC | 30.6 (L) | 32.0 - 35.5 | [facility] | | | | | g/dL | LABORATORY | | + + + + + + | RDW-SD | 51.4 | 37 - 53 fl | [facility] | | | | | | LABORATORY | | + + + + + + | Platelet | 468 (H) | 150 - 400 K/uL | [facility] [...] + + + + | % | 71.20 | % | [facility] | | | Neutrophils | | | LABORATORY | | + + + + + + | IMMATURE | 0.60 | % | [facility] | | | GRANULOCYTE | | | LABORATORY | | + + + + + + | % | 17.20 | % | [facility] | | | Lymphocytes | | | LABORATORY | | + + + + + + | Monocyte % | 6.70 | % | [facility] | | | | | | LABORATORY | | + + + + + + | Eosinophils | 4.30 | % | [facility] | | | % | | | LABORATORY | | + + + + + + | Basophils % | 0.00 | % | [facility] | | | | | | LABORATORY | | + + + + + + | Neutrophils | 6.61 | 1.90 - 7.40 | [facility] | | | , Absolute | | K/uL | LABORATORY | | + + + + + + | IMMATURE | 0.06Comment: NOTE NEW | 0.00 - 0.07 | [facility] | | | GRANS AB | REFERENCE RANGE | K/uL | LABORATORY | | + + + + + + | Absolute | 1.60 | 1.00 - 3.90 | [facility] | | | Lymphocytes | | K/uL | LABORATORY | | + + + + + + | Absolute | 0.62 | 0.00 - 0.80 | [facility] | | | Monocytes | | K/uL | LABORATORY | | + + + + + + | Eosinophils | 0.40 | 0.00 - 0.50 | [facility] | | | , Absolute | | K/uL | LABORATORY | | + + + + + + | Basophils, | 0.00Comment: Testing | 0.00 - 0.10 | [facility] | | | Absolute | performed at [facility];[address] | K/uL | LABORATORY | | | | [address];[place], [place] | | | | | | [address] | | | | + + + + + + + + | Specimen | + + | Blood | + + + + + + + | Performing | Address | City/State/Zipcode | Phone Number | | Organization | | | | + + + + + | [facility] | [address] | [place] [address] | [phone] | + + + + + Type and Screen (08/17/2019 4:04 PM PDT) + + + + + [...] + + + | BB BAND | [id number] | | [facility] | | | | | | LABORATORY | | + + + + + + | UNIT # | [id number] | | [facility] | | | | | | LABORATORY | | + + + + + + | Product | LEUKODEPLETED PC | | [facility] | | | Code | | | LABORATORY | | + + + + + + | Unit | 00 | | [facility] | | | Division | | | LABORATORY | | + + + + + + | Unit Status | ISSUED,FINAL | | [facility] | | | | | | LABORATORY | | + + + + + + | Transfusion | OK TO TRANSFUSE | | [facility] | | | Status | | | LABORATORY | | + + + + + + | CROSSMATCH | COMPATIBLE | | [facility] | | | RESULT | | | LABORATORY | | + + + + + + | UNIT # | [id number] | | [facility] | | | | | | LABORATORY | | + + + + + + | Product | LEUKODEPLETED PC | | [facility] | | | Code | | | LABORATORY | | + + + + + + | Unit | 00 | | [facility] | | | Division | | | LABORATORY | | + + + + + + | Unit Status | ISSUED,FINAL | | [facility] | | | | | | LABORATORY | | + + + + + + | Transfusion | OK TO TRANSFUSE | | [facility] | | | Status | | | LABORATORY | | + + + + + + | CROSSMATCH | COMPATIBLE | | [facility] | | | RESULT | | | LABORATORY | | + + + + + + | UNIT # | [id number] | | [facility] | | | | | | LABORATORY | | + + + + + + | Product | LEUKODEPLETED PC,A | | [facility] | | | Code | | | LABORATORY | | + + + + + + | Unit | 00 | | [facility] | | | Division | | | LABORATORY | | + + + + + + | Unit Status | ISSUED,FINAL | | [facility] | | | | | | LABORATORY | | + + + + + + | Transfusion | OK TO TRANSFUSE | | [facility] | | | Status | | | LABORATORY | | + + + + + + | CROSSMATCH | COMPATIBLE | | [facility] | | | RESULT | | | LABORATORY | | + + + + + + | UNIT # | [id number] | | [facility] | | | | | | LABORATORY | | + + + + + + | Product | LEUKODEPLETED PC,B | | [facility] | | | Code | | | LABORATORY | | + + + + + + | Unit | 00 | | [facility] | | | Division | | | LABORATORY | | + + + + + + | Unit Status | REL FROM ALLOC | | [facility] | | | | | | LABORATORY | | + + + + + + | Transfusion | OK TO TRANSFUSE | | [facility] | | | Status | | | LABORATORY | | + + + + + + | CROSSMATCH | COMPATIBLE | | [facility] | | | RESULT | | | LABORATORY | | + + + + + + | UNIT # | [id number] | | [facility] | | | | | | LABORATORY | | + + + + + + | Product | LEUKODEPLETED PC | | [facility] | | | Code | | | LABORATORY | | + + + + + + | Unit | 00 | | [facility] | | | Division | | | LABORATORY | | + + + + + + | Unit Status | REL FROM ALLOC | | [facility] | | | | | | LABORATORY | | + + + + + + | Transfusion | OK TO TRANSFUSE | | [facility] | | | Status | | | LABORATORY | | + + + + + + | CROSSMATCH | COMPATIBLETesting | | [facility] | | | RESULT | performed at [facility];[address] | | LABORATORY | | | | [address];[place] | | | | | | [address] | | | | + + + + + + + + | Specimen | + + | Blood | + + + + + + + | Performing | Address | City/State/Zipcode | Phone Number | | Organization | | | | + + + + + | [facility] | [address] | [place] [address] | [phone] | + + + + + documented in this encounter Visit Diagnoses + + | Diagnosis | + + | Acute blood loss anemia - Primary Acute posthemorrhagic anemia | + + | Upper GI bleeding Hemorrhage of gastrointestinal tract, unspecified | + + | Anemia associated with acute blood loss Acute posthemorrhagic anemia | + + | Acute on chronic renal insufficiency Unspecified disorder of kidney and ureter | + + | Uncontrolled type 2 diabetes mellitus with hyperglycemia (HCC) | + + | Osteomyelitis of ankle or foot, right, acute (HCC) Acute osteomyelitis, ankle and | | foot | + + | History of duodenal ulcer Personal history of other diseases of digestive system | + + | History of anemia due to CKD | + + | Occult blood in stools Nonspecific abnormal finding in stool contents | + + | Obesity (BMI 35.0-39.9 without comorbidity) Obesity, unspecified | + + | Type 2 diabetes mellitus with stage 3 chronic kidney disease, without long-term | | current use of insulin (HCC) | + + | Hypertension Unspecified essential hypertension | + + | Renal tubular acidosis, type 4 Other specified disorders resulting from impaired | | renal function | + + | MARYURI (obstructive sleep apnea) Obstructive sleep apnea (adult) (pediatric) | + + documented in this encounter Admitting Diagnoses + + | Diagnosis | + + | Upper GI bleeding Hemorrhage of gastrointestinal tract, unspecified | + + documented in this encounter Administered Medications + +--------+ +--------+------+------+ | Medication Order | MAR | Action | Dose | Rate | Site | | | Action | Date | | | | + +--------+ +--------+------+------+ | acetaminophen (TYLENOL) tablet | Given | 08/18/19 | 650 mg | | | | 650 mg 650 mg, Oral, EVERY 4 | | 20 8:50 | | | | | HOURS PRN, Pain, or fever >= 38.6 | | AM PDT | | | | | C (101.5 F), Starting Thu08/17/19 | | | | | | | at 2005 | | | | | | + +--------+ +--------+------+------+ +---+---+ | | | +---+---+ + +-------+ +---------+---+---+ | albuterol 90 mcg/puff inhaler 2 | Given | 08/18/19 | 2 puffs | | | | puff 2 puff, Inhalation, RT | | 20 8:55 | | | | | Q6H, First dose on Thu08/17/19 at | | AM PDT | | | | | 2100, Shake well. Use with | | | | | | | spacer., | | | | | | + +-------+ +---------+---+---+ +---+---+ | | | +---+---+ + +-------+ +--------+---+---+ | ascorbic acid (VITAMIN C) | Given | 08/19/19 | 500 mg | | | | tablet 500 mg 500 mg, Oral, | | 20 8:20 | | | | | DAILY, First dose on Winsome 08/18/19 | | AM PDT | | | | | at 0900 | | | | | | + +-------+ +--------+---+---+ +-------+ +--------+---+---+ | Given | 08/18/19 | 500 mg | | | | | 20 8:50 | | | | | | AM PDT | | | | +-------+ +--------+---+---+ +---+---+ | | | +---+---+ + +-------+ +--------+---+---+ | cholecalciferol (VITAMIN D-3) | Given | 08/19/19 | 2,000 | | | | tablet 2,000 Units 2,000 Units, | | 20 8:19 | Units | | | | Oral, DAILY, First dose on Winsome | | AM PDT | | | | | 08/18/19 at 0900 | | | | | | + +-------+ +--------+---+---+ +-------+ +--------+---+---+ | Given | 08/18/19 | 2,000 | | | | | 20 8:50 | Units | | | | | AM PDT | | | | +-------+ +--------+---+---+ +---+---+ | | | +---+---+ + +-------+ +--------+---+---+ | cyanocobalamin (VITAMIN B-12) | Given | 08/19/19 | 1,000 | | | | tablet 1,000 mcg 1,000 mcg, | | 20 8:19 | mcg | | | | Oral, DAILY, First dose on Winsome | | AM PDT | | | | | 08/18/19 at 0900 | | | | | | + +-------+ +--------+---+---+ +-------+ +--------+---+---+ | Given | 08/18/19 | 1,000 | | | | | 20 8:50 | mcg | | | | | AM PDT | | | | +-------+ +--------+---+---+ + +---+ | | | + +---+ | dextrose 10% (D10W) infusion | | | at 50 mL/hr, Intravenous, | | | CONTINUOUS PRN, hypoglycemia, | | | Starting 08/17/19 at 1839, | | | Start infusion if unable [...] | | | Low Blood Sugar, Starting Wed | | | 08/17/19 at 1839, For blood glucose | | | 50-69 mg/dl - give 12.5 g For | | | blood glucose less than 50 mg/dl | | | - give 25 g, | | + +---+ | | | + +---+ + +---------+ +-----+-------+---+ | ertapenem (INVanz) 1 g in | New Bag | 08/18/19 | 1 g | 120 | | | sodium chloride 0.9% 50 mL IVPB | | 20 9:30 | | mL/hr | | | 1 g, Intravenous, Administer over | | PM PDT | | | | | 30 Minutes, EVERY 24 HOURS, | | | | | | | First dose on Thu08/17/19 at 2100, | | | | | | | Keep in refrigerator., | | | | | | | Indications: Osteomyelitis | | | | | | + +---------+ +-----+-------+---+ +---------+ +-----+-------+---+ | New Bag | 08/17/19 | 1 g | 120 | | | | 20 9:54 | | mL/hr | | | | PM PDT | | | | +---------+ +-----+-------+---+ +---+---+ | | | +---+---+ + +-------+ +--------+---+---+ | ferrous sulfate tablet 325 mg | Given | 08/19/19 | 325 mg | | | | 325 mg, Oral, DAILY WITH | | 20 8:19 | | | | | BREAKFAST, First dose on Thu | | AM PDT | | | | | 08/18/19 at 0800 | | | | | | + +-------+ +--------+---+---+ +-------+ +--------+---+---+ | Given | 08/18/19 | 325 mg | | | | | 20 8:50 | | | | | | AM PDT | | | | +-------+ +--------+---+---+ +---+---+ | | | +---+---+ + +-------+ +------+---+---+ | folic acid tablet 1 mg 1 mg, | Given | 08/19/19 | 1 mg | | | | Oral, DAILY, First dose on Thu | | 20 8:20 | | | | | 08/17/19 at 1845 | | AM PDT | | | | + +-------+ +------+---+---+ +-------+ +------+---+---+ | Given | 08/18/19 | 1 mg | | | | | 20 8:50 | | | | | | AM PDT | | | | +-------+ +------+---+---+ | Given | 08/17/19 | 1 mg | | | | | 20 9:53 | | | | | | PM PDT | | | | +-------+ +------+---+---+ +---+---+ | | | +---+---+ + +-------+ + +---+ + | insulin glargine (LANTUS | Given | 08/18/19 | 10 Units | | Arm-Righ | | SOLOSTAR) injection (pen) 10 | | 20 9:27 | | | t Upper | | Units 10 Units (rounded from | | PM PDT | | | | | 9.52 Units = 0.1 Units/kg/day | | | | | | | 95.2 kg), Subcutaneous, NIGHTLY, | | | | | | | First dose on Thu08/17/19 at | | | | | | | 2200, For subcutaneous use only. | | | | | | | Basal (long acting) insulin., If | | | | | | | NPO: Decrease dose, by: 50% | | | | | | + +-------+ + +---+ + +-------+ + +---+ + | Given | 08/17/19 | 10 Units | | Abdomen- | | | 20 9:54 | | | LLQ | | | PM PDT | | | | +-------+ + +---+ + +---+---+ | | | +---+---+ + +-------+ +---------+---+ + | insulin lispro (humaLOG) | Given | 08/18/19 | 2 Units | | Abdomen- | | injection (vial) 0-12 Units 0-12 | | 20 12:45 | | | RLQ | | Units, Subcutaneous, 4 TIMES | | PM PDT | | | | | DAILY WITH MEALS & NIGHTLY, First | | | | | | | dose on Thu08/17/19 at 2100, | | | | | | | CORRECTION SCALE: Blood Glucose | | | | | | | (BG) < 150: None | | | | | | | BG 150-200: DAY: 2 units. | | | | | | | NIGHT: 0 units BG 201-250: DAY: | | | | | | | 4 units. NIGHT: 2 units BG | | | | | | | 251-300: DAY: 6 units. NIGHT: | | | | | | | 4 units BG 301-350: DAY: 8 | | | | | | | units. NIGHT: 6 units BG | | | | | | | 351-400: DAY: 10 units. NIGHT: 8 | | | | | | | units BG > 400 : DAY: 12 | | | | | | | units. NIGHT: 10 units | | | | | | | AND CALL PROVIDER | | | | | | | , Use DAY DOSE for doses | | | | | | | scheduled: AC, NPO, Daytime | | | | | | | 2364-9091 Use NIGHT DOSE for | | | | | | | doses scheduled: HS, | | | | | | | Nighttime 9077-0617 If the BG is | | | | | | | not checked before the patient | | | | | | | starts eating, do not give | | | | | | | correction insulin. Only for use | | | | | | | with U-100 insulin syringe., | | | | | | + +-------+ +---------+---+ + +---+---+ | | | +---+---+ + +-------+ +-------+---+---+ | metoprolol succinate | Given | 08/19/19 | 25 mg | | | | (TOPROL-XL) ER tablet 25 mg 25 | | 20 8:19 | | | | | mg, Oral, DAILY, First dose on | | AM PDT | | | | | Winsome 08/18/19 at 0900, Tablet may be | | | | | | | cut where scored but do not | | | | | | | crush., | | | | | | + +-------+ +-------+---+---+ +-------+ +-------+---+---+ | Given | 08/18/19 | 25 mg | | | | | 20 8:50 | | | | | | AM PDT | | | | +-------+ +-------+---+---+ +---+---+ | | | +---+---+ + +---------+ +---------+ +---+ | pantoprazole (PROTONIX) 0.8 | New Bag | 08/18/19 | 8 mg/hr | 10 mL/hr | | | mg/mL in sodium chloride 0.9% 100 | | 20 7:54 | | | | | mL infusion 8 mg/hr (10 mL/hr), | | PM PDT | | | | | at 10 mL/hr, Intravenous, | | | | | | | CONTINUOUS, Starting 08/17/19 | | | | | | | at 1800, Indication: Bleed, upper | | | | | | | GI | | | | | | + +---------+ +---------+ +---+ +---------+ +---------+ +---+ | New Bag | 08/18/19 | 8 mg/hr | 10 mL/hr | | | | 20 3:04 | | | | | | AM PDT | | | | +---------+ +---------+ +---+ | New Bag | 08/17/19 | 8 mg/hr | 10 mL/hr | | | | 20 5:35 | | | | | | PM PDT | | | | +---------+ +---------+ +---+ + +---+ | | | + +---+ | pantoprazole (PROTONIX) | | | injection 40 mg 40 mg, | | | Intravenous, 2 TIMES DAILY, First | | | dose on Thu08/19/19 at 2100, | | | Indication: Bleed, upper GI | | + +---+ | | | + +---+ + +-------+ +-------+---+---+ | pantoprazole (PROTONIX) | Given | 08/17/19 | 80 mg | | | | injection 80 mg 80 mg, | | 20 5:20 | | | | | Intravenous, ONCE, Thu08/17/19 at | | PM PDT | | | | | 1710, For 1 dose, Mix each 40mg | | | | | | | vial with 10 mL NS to make 4 | | | | | | | mg/mL., Indication: Bleed, upper | | | | | | | GI | | | | | | + +-------+ +-------+---+---+ +---+---+ | | | +---+---+ + +-------+ +-------+---+---+ | rosuvastatin (CRESTOR) tablet | Given | 08/18/19 | 20 mg | | | | 20 mg 20 mg, Oral, NIGHTLY, | | 20 9:26 | | | | | First dose on Thu08/17/19 at 2100 | | PM PDT | | | | + +-------+ +-------+---+---+ +-------+ +-------+---+---+ | Given | 08/17/19 | 20 mg | | | | | 20 9:53 | | | | | | PM PDT | | | | +-------+ +-------+---+---+ +---+---+ | | | +---+---+ + +-------+ +--------+---+---+ | sodium bicarbonate tablet 650 | Given | 08/19/19 | 650 mg | | | | mg 650 mg, Oral, DAILY, First | | 20 8:19 | | | | | dose on Thu08/18/19 at 0900 | | AM PDT | | | | + +-------+ +--------+---+---+ +-------+ +--------+---+---+ | Given | 08/18/19 | 650 mg | | | | | 20 8:50 | | | | | | AM PDT | | | | +-------+ +--------+---+---+ +---+---+ | | | +---+---+ + +---------+ +---+ +---+ | sodium chloride 0.9% (NS) | New Bag | 08/17/19 | | 50 mL/hr | | | infusion at 50 mL/hr, | | 20 9:54 | | | | | Intravenous, CONTINUOUS, Starting | | PM PDT | | | | | 08/17/19 at 1845 | | | | | | + +---------+ +---+ +---+ +---+---+ | | | +---+---+ + + + +---+---+---+ | sodium chloride 0.9% (NS) | Continue | 08/18/19 | | | | | infusion at 100 mL/hr, | d by | 20 11:32 | | | | | Intravenous, CONTINUOUS, Starting | Anesthes | AM PDT | | | | | Winsome 08/18/19 at 1115 | ia | | | | | + + + +---+---+---+ +---------+ +---+-------+--------+ | New Bag | 08/18/19 | | 100 | Right | | | 20 10:49 | | mL/hr | Arm | | | AM PDT | | | | +---------+ +---+-------+--------+ +---+---+ | | | +---+---+ documented in this encounter Additional Health Concerns + + + + + | Infection | Onset Date | Last Indicated | Resolved Time | + + + + + | Rule out COVID-19 | 08/17/2019 | 08/17/2019 | 08/17/2019 7:21 PM | | | | | PDT | + + + + + documented as of this encounter
--- OUTSIDE RECORDS SUMMARY | ~2019-11-09 | XMS | Encounter Summary ---
Demographics + + + | Address | [address] | | | [place] [address] | + + + | Home Phone [...] Team Providers + +------+ + | Care Cissp Name | Role | Phone | + +------+ + | Ronel Jacobson PA-C | PCP | | + +------+ + Encounter Details +--------+ + + + + | Date | Type | Department | Care Team | Description | +--------+ + + + + | 05/08/ | Abstract | [facility] | Mariana Cortez W, | | | 2017 | | NEPHROLOGY [address] | [address] | | | | | [address] | [address] [place] | | | | | [place], [place] | [place] [address] | | | | | [address] | [phone] | | | | | [phone] | | | +--------+ + + + [...] [place] | | | | | | [address] | | | | | | | | +--------+ + + + + | 01/17/ | Office | Vascular Surgery | Bill Arevalo DNP | | | 2019 | Visit | | [address] | | | | | | [place] | | | | | | [address] | | | | | | | | +--------+ + + + + | 05/22/ | Office | Nephrology | Mariana Cortez | | | 2020 | Visit | | [address] | | | | | | [address] [place] | | | | | | [place] [address] | | | | | | [phone] | | | | | | | | +--------+ + + + + documented as of this encounter Procedures + +--------+ + + + | Procedure Name | Priori | Date/Time | Associated Diagnosis | Comments | | | ty | | | | + +--------+ + + + | EXTERNAL LAB: LEVI | Routin | 05/07/2017 | | Results [...] | EXTERNAL LAB: CARBON | Routin | 05/07/2017 | | Results [...] | EXTERNAL LAB: SODIUM | Routin | 05/07/2017 | | Results for this | | | e | | | procedure are in the | | | | | | results section. | + +--------+ + + + | EXTERNAL LAB: ANNALISE | Routin | 05/07/2017 | | Results for this | | INTACT | e | | | procedure are in the | | | | | | results section. | + +--------+ + + + | EXTERNAL LAB: | Routin | 05/07/2017 | | Results for this | | PROTEIN/CREATININE | e | | | procedure are in the | | RATIO | | | | results section. | + +--------+ + + + | EXTERNAL LAB: CBC | Routin | 05/07/2017 | | Results for this | | | e | | | procedure are in the | | | | | | results section. | + +--------+ + + + | EXTERNAL LAB: EGFR | Routin | 05/07/2017 | | Results [...] documented in this encounter Results External Lab: Protein/Creatinine Ratio (05/07/2017) + +---------+ + + + | Component | Value | Ref Range | Performed | Pathologist | | | | | At | Signature | + +---------+ + + + | Protein/Cre | 0.6 (A) | 0.0 - 0.2 | | | | atinine | | | | | | Ratio, | | | | | | External | | | | | + +---------+ + + + + + | Specimen | + + | | + + External Lab: PTH, Intact (05/07/2017) + +-------+ + + + | Component | Value | Ref Range | Performed | Pathologist | | | | | At | Signature | + +-------+ + + + | PTH Intact, | 38 | 12 - 88 | | | | External | | | | | + +-------+ + + + + + | Specimen | + + | | + + External Lab: BUN (05/07/2017) + +--------+ + + + | Component | Value | Ref Range | Performed | Pathologist | | | | | At | Signature | + +--------+ + + + | BUN, | 42 (A) | 8 - 25 | EXTERNAL [...] + +---------+ + + External Lab: Glucose (05/07/2017) + +---------+ + + + | Component | Value | Ref Range | Performed | Pathologist | | | | | At | Signature | + +---------+ + + + | Glucose, | 122 (A) | 65 - 99 | EXTERNAL [...] + +---------+ + + External Lab: Albumin (05/07/2017) + +---------+ + + + | Component | Value | Ref Range | Performed | Pathologist | | | | | At | Signature | + +---------+ + + + | Albumin, | 3.3 (A) | 3.5 - 5.2 | EXTERNAL [...] + +---------+ + + External Lab: Phosphorus (05/07/2017) + +-------+ + + + | Component | Value | Ref Range | Performed | Pathologist | | | | | At | Signature | + +-------+ + + + | Phosphorus, | 4.5 | 2.3 - 4.8 | EXTERNAL | [...] + +---------+ + + External Lab: Calcium (05/07/2017) + +-------+ + + + | [...] +---------+ + + External Lab: Carbon Dioxide (05/07/2017) + +--------+ + + + | Component | Value | Ref Range | Performed | Pathologist | | | | | At | Signature | + +--------+ + + + | Carbon | 21 (A) | 22 - 29 | EXTERNAL | | | Dioxide, | [...] + +---------+ + + External Lab: Chloride (05/07/2017) + +-------+ + + + | Component | Value | Ref Range | Performed | Pathologist | | | | | At | Signature | + +-------+ + + + | Chloride, | 97 | 97 - 107 | EXTERNAL | | | External | [...] + +---------+ + + External Lab: Potassium (05/07/2017) + +---------+ + + + | Component | Value | Ref Range | Performed | Pathologist | | | | | At | Signature | + +---------+ + + + | Potassium, | 5.5 (A) | 3.5 - 5.3 | EXTERNAL [...] + +---------+ + + External Lab: Sodium (05/07/2017) + +---------+ + + + | Component | Value | Ref Range | Performed | Pathologist | | | | | At | Signature | + +---------+ + + + | Sodium, | 133 (A) | 135 - 145 [...] | + +---------+ + + External Lab: CBC (05/07/2017) + +-------+ + + + | Component | Value | Ref Range | Performed | Pathologist | | | | | At | Signature | + +-------+ + + + | WBC, | 9.18 | 4 - 11 | EXTERNAL | | | External | | | LAB | | + +-------+ + + + | HGB, | 12.3 | 12 - 16 | EXTERNAL | | | External | | | LAB | | + +-------+ + + + | HCT, | 35.8 | 35 - 45 | EXTERNAL | | | External | | | LAB | | + +-------+ + + + | PLT, | 330 | 140 - 440 | EXTERNAL | | | External | | | LAB | | + +-------+ + + + | RBC, | 3.91 | 3.8 - 5.2 | EXTERNAL | | | External | | | LAB | | + +-------+ + + + | MCV, | 92 | 81 - 99 | EXTERNAL | | | External | | | LAB | | + +-------+ + + + | RDW, | 14.15 | 10.5 - 16 | EXTERNAL | | | External | [...] + +---------+ + + External Lab: eGFR (05/07/2017) + +-------+ + + + | Component | Value | Ref Range | Performed | Pathologist | | | | | At | Signature | + +-------+ + + + | eGFR, | 40 | | EXTERNAL | | | | | | LAB | | | [place], | | | | | | External | | | | | + +-------+ + + + + + | Specimen | + + | Blood | + + + + | Resulting Agency Comment | + + | [facility] | + + + +---------+ + + | Performing | Address | City/State/Zipcode | Phone Number | | Organization | | | | + +---------+ + + | EXTERNAL LAB | | | | + +---------+ + + External Lab: Creatinine (05/07/2017) + + + + + + | Component | Value | Ref Range | Performed | Pathologist | | | | | At | Signature | + + + + + + | Creatinine, | 1.54 (A) | 0.5 - 1 | EXTERNAL | | | External | | | LAB | | + + + + + + + + | Specimen | + + | Blood | + + + + | Resulting [...]
--- OUTSIDE RECORDS SUMMARY | ~2019-11-09 | XMS | Encounter Summary ---
Demographics + + + | Address | [address] | | | [place] [address] | + + + | Home Phone | | + + + | Preferred Language | Unknown | + + + | Marital Status | Single | + + + | Pentecostalism Affiliation | Unknown | + + + [...] Team Providers + +------+ + | Care Corduroy Cutting Supervisor Name | Role | Phone | + +------+ + PCP | Unavailable | + +------+ + Encounter Details +--------+ + + + + | Date | Type | Department | Care Team | Description | +--------+ + + + + | 01/28/ | Abstract | [facility] | Mariana Cortez W, | | | 2012 | | NEPHROLOGY [address] | MD [address] | | | | | [address] | [address] [place] | | | | | [place], [place] | [place] [address] | | | | | [address] | [phone] | | | | | [phone] | | | +--------+ + + + [...] [place] | | | | | | [address] | | | | | | | | +--------+ + + + + | 01/17/ | Office | Vascular Surgery | Bill Arevalo DNP | | | 2019 | Visit | | [address] | | | | | | [place] | | | | | | [address] | | | | | | | | +--------+ + + + + | 05/22/ | Office | Nephrology | Mariana Cortez W, | | | 2020 | Visit | | [address] | | | | | | [address] [place] | | | | | | [place] [address] | | | | | | [phone] | | | | | | | | +--------+ + + + + documented as of this encounter Procedures + +--------+ + + + | Procedure Name | Priori | Date/Time | Associated Diagnosis | Comments | | | ty | | | | + +--------+ + + + | PROTEIN/CREATININE | Routin | 01/26/2013 | | Results for this | | RATIO, URINE | e | | | procedure are in the | | | | | | results section. | + +--------+ + + + documented in this encounter Results Protein/Creatinine Ratio, Urine (01/26/2013) + +-------+ + + + | Component | Value | Ref Range | Performed | Pathologist | | | | | At | Signature | + +-------+ + + + | PRO/CREA | 0.6 | mg/mg | EXTERNAL | | | RATIO,URINE | | | LAB | | + [...]
--- OUTSIDE RECORDS SUMMARY | ~2019-11-09 | XMS | Encounter Summary ---
Demographics + + + | Address | [address] | | | [place] [address] | + + + | Home Phone [...] Team Providers + +------+ + | Care Advertising Layout Worker Name | Role | Phone | + +------+ + | Ronel Jacobson PA-C | PCP | | + +------+ + Encounter Details +--------+ + + + + | Date | Type | Department | Care Team | Description | +--------+ + + + + | 11/12/ | Orders Only | [facility] | Henok Luther MD | Deviated nasal | | 2017 | | OTOLARYNGOLOGY [address] | [address] | septum (Primary Dx); | | | | [address] | [address] [place], [place] | Hypertrophy of | | | | [place], [place] | [address] | nasal turbinates; | | | | [address] | | Acute nonseasonal | | | | [phone] | | allergic rhinitis | | | [...] [place] | | | | | | [address] | | | | | | | | +--------+ + + + + | 01/17/ | Office | Vascular Surgery | Bill Arevalo, DNP | | | 2019 | Visit | | [address] | | | | | | [address] [place] | | | | | | [address] | | | | | | | | +--------+ + + + + | 05/22/ | Office | Nephrology | Mariana Cortez, | | | 2020 | Visit | | MD [address] | | | | | | [address] [place] | | | | | | [place] [address] | | | | | | [phone] | | | | | | | | +--------+ + + + + documented as of this encounter Visit Diagnoses + + | Diagnosis | + + | Deviated nasal septum - Primary | + + | Hypertrophy of nasal turbinates | + + | Acute nonseasonal allergic rhinitis due to pollen | + + documented in this encounter"
--- OUTSIDE RECORDS SUMMARY | ~2019-11-09 | XMS | Encounter Summary ---
Demographics + + + | Address | [address] | | | [place] [address] | + + + | Home Phone [...] Team Providers + +------+ + | Care Baccarat Manager Name | Role | Phone | + +------+ + | Mehrdad Avalos MD | PCP | | + +------+ + Reason for Visit + +--------+ + | Reason | Onset | Comments | | | Date | | + +--------+ + | Care Coordination | 08/01/ | IV ABX Co-Sign Order by Dr. Cespedes | | | 2019 | | + +--------+ + Encounter Details +--------+ + + + + | Date | Type | Department | Care Team | Description | +--------+ + + + + | 08/01/ | Telephone | [facility] | Shirley Alfonso, | Care Coordination | | 2019 | | INFECTIOUS DISEASE | Lumber Trimmer | (IV ABX Co-Sign | | | | [address] [facility] | | Order by Dr. Cespedes ) | | | | [place] | | | | | | [address] | | | | | | [phone] | | | +--------+ + + + [...] this encounter Miscellaneous Notes Telephone Encounter - Shirley Alfonso, Lumber Trimmer - 08/04/2019 12:21 PM PDT08/04/2019 : I called [facility] and spoke to Erum. I relayed information above that I received from patient and [facility]. She would like verbal order if ok for flush protocol and if ok for sailene to be sent to [facility]. I let her know that I have to send message to provider as I cannot give her verbal or nyla because Im an MA. I also provided her providers cell number since she was needing sera. [email or web address] ne Encounter - Shirley Alfonso Lumber Trimmer - 08/04/2019 12:09 PM PDT08/04/2019: --I called [facility] to see if patient is scheduled for 1st dose of Ertapenem and as well what PICC line patient has. I spoke to RN that places picc, sukumar and he stated that he placed a POWERPICC Solo Single Lumen TPS and he stated that they heparinize picc . ---RN stated that patient is scheduled for an appointment today at 3PM but did not confirm if she had dose if it already. ---I called patient to see if she can go for appointment at 3PM today. She stated that she received 2 doses already for IV Ertapenem. I thanked for her assistance . Consuelo Jacobs - Shirley Alfonso Medical Assistant - 08/04/2019 12:01 PM PDT08/04/2019: Erum from [facility] called office and stated that she has some questions and is needing so me clarification. She is asking 1.) Has patient received 1st does of Ertapenem? If not she will need orders f or [facility], 2) is picc line valved or non- valved, if valved she needs to send sailene and n o heparin if non-valved she needs orders to send heprin. Erum would like a call back [phone]. Consuelo Jacobs - Shirley Alfonso Medical Assistant - 08/04/2019 11:59 AM PDT08/04/2019: I called [facility] and let them know of providers message. Staff at [facility] stated that Dr. Palma is on orders for primary prescriber. I thanked for her assistance. Consuelo Jacobs - Shirley Alfonso Medical Assistant - 08/04/2019 11:58 AM PDT RE: Chart note from 08/02/2019 Received: Yesterday Message Contents MD Shirley Bear Medical Assistant If [facility] is being set up, it's better I am the primary so we receive the lab results and everything. Please call [facility] and explain. Thanks Previous Messages ----- Message ----- From: Stacey Amin Sent: 08/03/2019 1:58 PM PDT To: Carmine Henry MD Subject: Chart note from 08/02/2019 's office called this afternoon and stated that Patient wanted to be set up through [facility]. His office sent over orders to [facility] but they are needing your chart note from yesterd ay to start the PA process. Pls advise. Mario [phone] Encounter - Shirley Alfonso, Lumber Trimmer - 08/02/2019 2:21 PM PDT08/02/2019: I called Dr. Cespedes office at [phone] and spoke to Mario. I let her know that I am needing Dr. Cespedes to Co-Sign some orders as Dr. Palma does not hav e any privileges at [facility]. I let her know it was an IV antibiotic Ertapenem, weekly lab orders (cbc,cmp), and picc maint. Order. I let her know that patient stated she w ould like it to be faxed to hospital prior to her appointment at 1500. I provided her with # of IV unit at [facility] F# [phone]. She stated he has patients right now and will have him sign orders in between pts and fax t o hospital unit. I thanked her for her assistance. ger cortez in this encounter Plan of Treatment +--------+ + + + + | Date | Type | Specialty | Care Team | Description | +--------+ + + + + | 01/17/ | Appointment | Radiology | Bill ArevaloGEMMA | | | 2019 | | | [address] | | | | | | [place] | | | | | | [address] | | | | | | | | +--------+ + + + + | 01/17/ | Office | Vascular Surgery | Bill Arevalo DNP | | | 2019 | Visit | | [address] | | | | | | [place] | | | | | | [address] | | | | | | | | +--------+ + + + + | 05/22/ | Office | Nephrology | Mariana Cortez, | | | 2020 | Visit | | [address] | | | | | | [address] [place] | | | | | | [place] [address] | | | | | | [phone] | | | | | | | | +--------+ + + + + documented as of this encounter Visit Diagnoses Not on filedocumented in this encounter"
--- OUTSIDE RECORDS SUMMARY | ~2019-11-09 | XMS | Encounter Summary ---
Demographics + + + | Address | [address] | | | [place] [address] | + + + | Home Phone | | + + + | Preferred Language | Unknown | + + + | Marital Status | Single | + + + | [employer] Affiliation | Unknown | + + + [...] + +------+ + | Care Director Of Pediatric Rehabilitation Name | Role | Phone | + +------+ + PCP | Unavailable | + +------+ + Encounter Details +--------+ + + + + | Date | Type | Department | Care Team | Description | +--------+ + + + + | 01/03/ | Abstract | [facility] | Mariana Cortez W, | | | 2013 | | NEPHROLOGY [address] | MD [address] | | | | | [address] [place] | | | | | [place], [place] | [place] [address] | | | | | [address] | [phone] | | | | | [phone] | | | +--------+ + + + [...] [place] | | | | | | [address] | | | | | | | | +--------+ + + + + | 01/17/ | Office | Vascular Surgery | Bill Arevalo DNP | | | 2019 | Visit | | [address] | | | | | | [place] | | | | | | [address] | | | | | | | | +--------+ + + + + | 05/22/ | Office | Nephrology | Mariana Cortez W, | | | 2020 | Visit | | [address] | | | | | | [address] [place] | | | | | | [place] [address] | | | | | | [phone] | | | | | | | | +--------+ + + + + documented as of this encounter Procedures + +--------+ + + + | Procedure Name | Priori | Date/Time | Associated Diagnosis | Comments | | | ty | | | | + +--------+ + + + | EXTERNAL LAB: [facility] | Routin | 01/02/2014 | | Results for this | | | e | | | procedure are in the | | | | | | results section. | + +--------+ + + + | EXTERNAL LAB: | Routin | 01/02/2014 | | Results for this | | GLUCOSE | e | | | procedure are in the | | | | | | results section. | + +--------+ + + + | EXTERNAL LAB: | Routin | 01/02/2014 | | Results for this | | CALCIUM | e | | | procedure are in the | | | | | | results section. | + +--------+ + + + | EXTERNAL LAB: [facility] | Routin | 01/02/2014 | | Results for this | | DIOXIDE | e | | | procedure are in the | | | | | | results section. | + +--------+ + + + | EXTERNAL LAB: | Routin | 01/02/2014 | | Results for this | | CHLORIDE | e | | | procedure are in the | | | | | | results section. | + +--------+ + + + | EXTERNAL LAB: | Routin | 01/02/2014 | | Results for this | | POTASSIUM | e | | | procedure are in the | | | | | | results section. | + +--------+ + + + | EXTERNAL LAB: SODIUM | Routin | 01/02/2014 | | Results for this | | | e | | | procedure are in the | | | | | | results section. | + +--------+ + + + | EXTERNAL LAB: EGFR | Routin | 01/02/2014 | | Results for this | | | e | | | procedure are in the | | | | | | results section. | + +--------+ + + + | EXTERNAL LAB: | Routin | 01/02/2014 | | Results for this | | CREATININE | e | | | procedure are in the | | | | | | results section. | + +--------+ + + + documented in this encounter Results External Lab: BUN (01/02/2014) + +-------+ + + + | Component | Value | Ref Range | Performed | Pathologist | | | | | At | Signature | + +-------+ + + + | BUN, | 60 | | EXTERNAL | | | External [...] + +---------+ + + External Lab: Glucose (01/02/2014) + +-------+ + + + | Component | Value | Ref Range | Performed | Pathologist | | | | | At | Signature | + +-------+ + + + | Glucose, | 360 | | EXTERNAL | | | External [...] + +---------+ + + External Lab: Calcium (01/02/2014) + +-------+ + + + | Component | Value | Ref Range | Performed | Pathologist | | | | | At | Signature | + +-------+ + + + | Calcium, | 9.5 | | EXTERNAL | | | External [...] +---------+ + + External Lab: Carbon Dioxide (01/02/2014) + +-------+ + + + | Component | Value | Ref Range | Performed | Pathologist | | | | | At | Signature | + +-------+ + + + | Carbon | 19 | | EXTERNAL | | | Dioxide, | [...] + +---------+ + + External Lab: Chloride (01/02/2014) + +-------+ + + + | Component | Value | Ref Range | Performed | Pathologist | | | | | At | Signature | + +-------+ + + + | Chloride, | 102 | | EXTERNAL | | | External [...] + +---------+ + + External Lab: Potassium (01/02/2014) + +-------+ + + + | Component | Value | Ref Range | Performed | Pathologist | | | | | At | Signature | + +-------+ + + + | Potassium, | 5.6 | | EXTERNAL | | | External [...] + +---------+ + + External Lab: Sodium (01/02/2014) + +-------+ + + + | Component | Value | Ref Range | Performed | Pathologist | | | | | At | Signature | + +-------+ + + + | Sodium, | 131 | | EXTERNAL | | | External [...] + +---------+ + + External Lab: eGFR (01/02/2014) + +-------+ + + + | Component | Value | Ref Range | Performed | Pathologist | | | | | At | Signature | + +-------+ + + + | eGFR, | 42 | | EXTERNAL | | | External | | | LAB | | + +-------+ + + + | eGFR, | | | EXTERNAL | | | | | | LAB | | | [place], | | | | | | External [...] + +---------+ + + External Lab: Creatinine (01/02/2014) + +-------+ + + + | Component | Value | Ref Range | Performed | Pathologist | | | | | At | Signature | + +-------+ + + + | Creatinine, | 1.38 | | EXTERNAL | | | External [...]
--- OUTSIDE RECORDS SUMMARY | ~2019-11-09 | XMS | Encounter Summary ---
Demographics + + + | Address | [address] | | | [place] [address] | + + + | Home Phone [...] Author + + + | Author | [facility] | | | and [place] | + + + | Organization | [facility] | | | and [...] Team Providers + +------+ + | Care Managing Consultant Name | Role | Phone | [...] Description | +--------+---------+ + + + | 08/17/ | Surgery | [facility] | Stepan Napoles MD | EGD | | 2020 | | [facility] | [address] | | | | | INTRA [address] | [place], [place] | | | | | [place], [place] | [address] | | | | | [address] | [phone] | | | | | [phone] | | | +--------+---------+ + + + [...] + + + | Blood Pressure | 137/70 | 08/18/2019 8:46 AM | | | | | PDT | | + + + + + | Pulse | 100 | 08/18/2019 8:46 AM | | | | | PDT | | + + + + + | Temperature | 36.9 C (98.4 F) | 08/18/2019 8:46 AM | | | | | PDT | | + + + + + | Respiratory Rate | 16 | 08/18/2019 8:46 AM | | | | | PDT | | + + + + + | Oxygen Saturation | 97% | 08/18/2019 8:46 AM | | | | | PDT [...] had prior endoscopy by GI specialist in [facility]. Follow-up EGD study reportedly showed healed PUD. [...] followed by Protonix drip. Gi Dr. Dony carracso s consulted. Patient underwent EGD on 08/18/2019 with [...] time. Recent Labs Recent Labs Lab 08/19/19 0517 WBC 8.79 HGB 8.0* HCT 24.8* PLT 377 Recent Labs Lab 08/19/19 0517 NA 140 K 4.5 CL 112* CO2 20* BUN 26* CALCIUM 8.5 Recent Labs Lab 08/17/19 1701 INR 1.0 Recent Radiology Results No new imaging. Discharge Procedure Orders Ambulatory Referral to [facility] Gastroenterology Referral Priority: Routine Referral Type: Evaluate & Treat Referral Reason: Specialty Services Required Requested Specialty: Gastroenterology Number of Visits Requested: 1 Outstanding Issues: None Discharge Information: Follow up: [place] [address] [place] [address] Carmine Henry MD [address] [facility] [address] [facility] [address] [facility] [phone] Discharge Medications Unchanged Medications Details albuterol 90 mcg/puff inhaler Inhale 2 puffs into the lungs every 6 hours as needed. Alcohol Swabs 70 % Pads by Does not apply route. ascorbic acid 500 mg tablet Take 500 mg by mouth Daily. aka: VITAMIN C B-D UF III MINI PEN NEEDLES 31G X 5 MM [facility] Generic drug: Insulin Pen Needle bumetanide 0.5 [...] 1 tablet by mouth Daily. TECHLITE LANCETS [facility] Disposition: home Condition: Fair Code Status: Full [...] Bleeding along with feeling lightheaded or dizzy xTV last reviewed this educational content on 07/10/201819995686-4157 [employer], [employer]. [address] [place] [address]. All righ ts reserved. This information is [...] Your healthcare provider can tell you more. xTV last reviewed this educational content on 05/10/201819999772-6172 The [employer]. [address] [place] [address], [place] [address]. All righ ts reserved. This information is not intended as a substitute for professional medical care. Always follow your healthcare professional's instructions. What is Coronavirus? The Novel Coronavirus 2019 (COVID-19) is a new virus strain that is spread mainly from pers dz-ov-jwoytu through respiratory droplets when an infected person [...] are not available, use an alcohol-based hand film critic with at least 60 % alcohol covering [...] and need to call 911, notify the frame gate mortiser operator that you have or think you [...] COVID-19 symptoms, residents in nursing facilities or usp communities or home health, or those who are high risk (older adults, chronic diseases, immunosuppressed) s vicenteuld be prioritized for testing. These recommendations may [...] or preparing your food. ? Use hand film critic if soap and water are not available. [...] with soap and water or in the federal mediation commissioner/washer. ? Call ahead before visiting your doctor. [...] local public health website. CDC: COVID-19: https://www.cdc.gov/coronavirus/2019-ncov/index.html [place] Coronavirus Advisory: https://www.providedce.org/ngryxjgu-tjd-jjfzukvz/coron avirus-advisory Virtual Visits Available https://virtual.providence.org/ documented in this encounter Medications at Time [...] into | 2 each | 1 | 10/04/20 | | | MG/0.3ML | the muscle [...] documented as of this encounter Progress Notes Jennifer JOHANNA-Azra Retana MACHINE CELL TUBER - 08/19/2019 12:01 PM PDT [facility] Service: Gastroenterology Consult Progress Note Hospital Day: [...] to it. 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 Reports increased weakness in the last 2 days but has associated with recent surgery. Reports prior EGD in [facility] for peptic ulcer disease with a follow -up endoscopy to verify healing. Denies regular use of NSAIDs, not on anticoagulant. Work- up in the ED revealed H&H 5.3/17.3 and a positive hemoccult. GI has been consulted for furth er evaluation. Patient had an EGD with [...] (08/18/191953) sodium chloride 0.9% 50 mL/hr at 08/17/194 PRN Medications acetaminophen, calcium carbonate, Hypoglycemia Management [...] ca ll with any questions. 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 We flores l plan to repeat upper endoscopy in 4 weeks for retreatment. Stepan Napoles MD Gastroenterology Rosa Santamaria RN - 08/18/2019 6:23 PM PDT12 hour chart complete. Pt s table, appears to be comfortable at this time. No questions. Call light within reach. Electr onically signed by Rosa Cain RN at 08/18/2019 6:24 PM PDTNorah Redding DO - 0 6:42 AM PDT [facility] Adult Hospitalist Progress Note Hospital Day: 1 [...] had prior endoscopy by GI specialist in [facility]. Follow-up EGD study reportedly showed healed PUD. [...] of her labs. Patient drove herself to [facility]. Vitals on admission: BP 138/74 169/88, HR [...] debridement of the wound by podiatry and [facility] on 07/28/2019. Consulted wound care for [...] from previous H&P or assessment and plan. Manasai leny signed by Stepan Napoels MD at 08/18/2019 11:35 AM Mohinder Berry MD - 08/17/19 6:43 PM PDT Patient Name: July Forte [...] had prior endoscopy by GI specialist in [facility]. Follow-up EGD study reportedly showed healed PUD. [...] of her labs. Patient drove herself to [facility]. Vitals on admission: BP 138/74 169/88, HR [...] Inferior Turbinoplasty; Surgeon: Henok Luther MD; Location: [facility] MAIN OR Medications: No current facility-administered medications [...] MINI PEN NEEDLES 31G X 5 MM [facility] CROW CONTOUR TEST strip 4 strips Daily. Blood Glucose Monitoring Suppl (CONTOUR BLOOD GLUCOSE SYSTEM) JOANNA by Does not apply ro nulato. bumetanide (BUMEX) 0.5 mg tablet Take 2 [...] Daily. 90 tablet 3 TechLite Lancets MISC Allergies: Allergies Allergen Reactions Furosemide Swelling FH: [...] recent debridement of t he wounds at [facility] on 07/28/2019 Left foot previously unroofed blister [...] debridement of the wound by podiatry and [facility] on 07/28/2019. Consult wound care for evaluation recommendations. May require official podiatry consultation and recommendations. 3. CKD stage III/diabetic nephropathy. Avoid nephrotoxic drugs. Gentle IV fluids. Recheck renal function in morning. Follow-up with Dr. Mariana Cortez on the outpatient basis as scheduled. [facility] if renal function deteriorates. 4. History [...] IP CONSULT TO WOUND OSTO MY NURSE [facility]: Wound Care Consult Note Hospital Day: 1 SUBJECTIVE Patient Summary: Wound care presents for evaluation of bilateral feet. Patient previo usly seeing Dr. Cespedes in [place] for podiatry need. Recent debridement and placement of ant ibiotic beads. Previously was using Iodosorb at home. 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 OBJECTIVE 08/18/19 1646 Wound [...] Dressing dressing initiated;silver impregnated dressing;hydrofiber;foam;gauze (Pt demanded koban for securement) Wound Image Wound 08/18/191649 Diabetic Ulcer Left medial foot blister(s) Placement [...] additional questions. Ana Nix RN 16:52 PDT rsales, Rosa Vincent MD - 08/18/2019 2:01 PM PDTAssociated Order(s): PROVIDER TO PROVIDER CONSULTFormat ting of this note might be different from the original. [facility]: Infectious Diseases Initial Consult Note Date [...] had prior endoscopy by GI specialist in [facility]. Follow-up EGD study reportedly showed healed PUD. [...] Inferior Turbinoplasty; Surgeon: Henok Luther MD; Location: [facility] MAIN OR Social History Socioeconomic History Marital status: Single Spouse name: Not on file Number of children: 0 Years of education: 13 Highest education level: Not on file Occupational History Employer: OTHER Comment: [employer] [facility] [employer] Social Needs Financial resource strain: Not on [...] file Gets together: Not on file Attends nondenominational service: Not on file Active member of [...] Social History Narrative Lives in house in [place] alone. Family History Problem Relation Age of [...] no changes ---patient already being seen by /[place] ---elevated CRP likely reactive from recent bleed Upper GI bleed ---s/p EGD ---see GI recommendations Thank you for this consultation. Will follow along. Dictation software, SED Web, used which may contain error for similar sounding words even af ter review. Personal communication requested for any clarification. Portions of this chart may have been copied from previous notes for continuity of care purp ty Mclean MD Infectious Diseases 08/18/2019 e, -Th KERRIE Hurley - 08/18/2019 9:50 AM PDTAssociated Order(s): PROVIDER TO PROVIDER CONSULTFor matting of this note might be different from the original. [facility] Service: Gastroenterology Initial Consult Note Date of [...] recent surgery. Repo rts prior EGD in [facility] for peptic ulcer disease with a follow-up endoscopy to [facility]. Denies regular use of NSAIDs, not on [...] at 08/17/19 2154 1 g at 08/17/19 2154 ferrous sulfate tablet 325 mg 325 mg [...] Nightly Mohinder Montesinos MD 10 Units at 08/17/19 2154 insulin lispro (humaLOG) injection (vial) 0-12 Units 0-12 Units Subcutaneous 4x Daily WC and HS Mohinder Montesinos MD Stopped at 08/17/193 melatonin tablet 3 mg 3 mg Oral [...] not hesitate to call with any questions. [facility] 08/18/2019 Associated attestation - Stepan Napoles [...] er gown, gloves while obtaining covid swab Aleyda Calderon RN - 08/17/2019 6:12 PM PDTDr gawlick at bedside Aleyda Calderon RN - 08/17/2019 6:12 PM PDTLab called to send covid swab Meghan Lobo Technologist - 08/17/2019 5:47 P M Adebayo Napoles was called for button breaker GI. Call transferred to Dr Callawaylectronically signed by Technologist Bertha at 08/17/2019 5:50 PM Meghan Lobo Technologis t - 08/17/2019 4:39 PM Adebayo Palma contacted. He is speaking with Dr Wiley at this timeEl ectronically signed by Technologist Bertha at 08/17/2019 4:41 PM PDTRobertson, Aleyda Mills RN - 08/17/2019 4:25 PM PDTPt here with jx of osteomyelitis of her left foot, demian ng abx via PICC for this. Sent here because of low H&H. Asymptomatic per ptElectronically si gned by Aleyda Olson, RN at 08/17/2019 5:27 PM PDTHodges, Elpidio Donis MD - 08/17/2019 4:14 PM PDT [facility] Department of Emergency Medicine No flowsheet data [...] thinks she was told to go to [facility] ED and not outpatient procedures but does [...] Inferior Turbinoplasty; Surgeon: Henok Luther MD; Location: [facility] MAIN OR Prior to Admission medications Medication Sig Start Date End Date Taking? Authorizing Provider albuterol 90 mcg/puff inhaler Inhale 2 puffs into the lungs every 6 hours as needed. 6 Ronel Jacobson PA-C Alcohol Swabs 70 % PADS by Does not apply route. Historical ProviderMD ascorbic acid (VITAMIN C) 500 mg tablet Take 500 mg by mouth Daily. Historical ProviderMD Izquierdo UF III MINI PEN NEEDLES 31G X 5 MM MISC 09/08/12 Historical Provider, CROW CONTOUR TEST strip 4 strips Daily. 09/08/12 Historical Provider, Blood Glucose Monitoring Suppl (CONTOUR BLOOD GLUCOSE SYSTEM) JOANNA by Does not apply route. Historical ProviderMD bumetanide (BUMEX) 0.5 mg tablet Take 2 [...] mg by mouth daily (with breakfast). Historical Jamie francois MD fluticasone (FLONASE) 50 mcg/nasal spray 1 spray by Nasal route Twice daily as needed. 09/09 10/25 Ronel Jacobson PA-C folic acid 1 mg tablet Take 1 mg by mouth Daily. Historical ProviderMD glyBURIDE (DIABETA) 5 mg tablet Take 10 mg by mouth daily (with breakfast). 09/28/15 Brenden Jacobson PA-C ipratropium (ATROVENT) 0.06% nasal spray ipratropium bromide 42 mcg (0.06 %) nasal spray Historical ProviderMD Magnesium 400 MG CAPS Take 400 mg by mouth Daily. 05/11/18 Mariana Cortez MD metoprolol succinate (TOPROL-XL) 25 mg 24 hr tablet Take 25 mg by mouth Daily. Stephen nuñez ProviderMD omeprazole (PRILOSEC) 20 mg capsule Take 20 mg by mouth 2 times daily. Historical Dannielle irizarry MD rosuvastatin (CRESTOR) 20 mg tablet Take 20 mg by mouth nightly. Historical Provider, SEMAGLUTIDE, 1 MG/DOSE, SC Inject 1 mg under the skin Once a week. Historical Provider, sodium bicarbonate 650 mg tablet Take 1 tablet by mouth Daily. 05/17/[address] [facility] [facility] 09/08/12 Historical ProviderMD Allergies Allergen Reactions Furosemide Swelling Social History Socioeconomic History Marital status: Single Spouse name: Not on file Number of children: 0 Years of education: 13 Highest education level: Not on file Occupational History Employer: OTHER Comment: [employer] Social Needs Financial resource strain: Not on [...] file Gets together: Not on file Attends nondenominational service: Not on file Active member of [...] Social History Narrative Lives in house in [place] alone. Family History Problem Relation Age of [...] Aleyda. Pt reports last scope was in [place] about 6 months ago by a local [...] records. No prior ED visits noted in [facility] EMR. Medications Administered in ED Medications pantoprazole [...] Comment Admit Clinical impression: Upper GI bleeding [190909] Clinical impression: Anemia associated with acute blood loss [042547] Clinical impression: Acute on chronic renal insufficiency [301123] Admitting provider: HATTIE HOSPITALIST [[id number]] Expected patient class: Inpatient [101] Level of service: Medical Follow up: Follow-up Information Mehrdad Avalos MD. Specialty: Family Medicine Contact information: [address] [place] [address] Carmine Henry MD. Specialties: Infectious Diseases, Internal Medicine Contact information: [address] [facility] [address] Discharge Medications: Critical Care Performed by: [...] interventions, ordering and review of laboratory s edithes, ordering and review of radiographic studies, pulse [...] shift chart check complete. -C Instructions Pro soledad - Stepan Napoles MD - 08/18/2019 11:32 AM PDTPatient Instructions [...] Napoles MD at 12:27 PM PDTPlan of [facility] - Henrietta Villarreal RN - 08/18/2019 7:46 AM PDT Problem: Adult Inpatient Plan of Care Goal: Patient-Specific Goal Outcome: Ongoing, progressing Feel better. Patient's H/H was critical last night and this am. Received 2 Units of blood and finishing her 3 unit. Will recheck H/H at 10am and proceed from that. [facility] - Laura Gamboa RN - 08/17/2019 10:21 PM PDT Problem: [...] [place]IGHT | | | | | | [id number] | | | | | | | | +--------+ + + + + | 01/17/ | Office | Vascular Surgery | Bill Arevalo DNP | | 2019 | Visit | | [address] | | | | | | [place] | | | | | | [address] | | | | | | | | +--------+ + + + + | 05/22/ | Office | Nephrology | Mariana Cortez W, | | | 2020 | Visit | | [address] | | | | | | [address] [place] | | | | | | [place] [address] | | | | | | [phone] | | | | | | | [...] + +--------+ + + + | *TERMED* MN UPPER GI | Routin | 08/18/2019 | [...] | | n - | | | 07/08/ | | | 2020 | | | 12:53 | | | [...] | | | FICATI | | | ON?07/ | | | 08/202 | | | 0 | | | 12:51? | | | JORDI | | | , | | | SANDRA | | | A | | | B?MRN: | | | | | | [id number] | | | [id number] | | | riteri | | | [...] | | | St. | | | [place] | | | y | | | [...] | | | St. | | | [place] | | | y | | | [...] | | | St. | | | [place] | | | y H. | | [...] | | | St. | | | [place] | | | y H. | | [...] | | | [id number] | | | [id number] | | | 78 | | | [...] | | | ed.? | | | 2019 | | | Collec | | | [...] Testing | 65 - 99 mg/dL | YUE | | | POC | performed at [facility];[address] | | LABORATORY | | | | [address];[place] | | | | | | [address] | | | | + + + + + + + + | Specimen | + + | | + + + + + + + | Performing | Address | City/State/Zipcode | Phone Number | | Organization | | | | + + + + + | [facility] | [address] | [place] [address] | [phone] | + + + + + POC Glucose (08/19/2019 7:33 AM PDT) + + + + + + | Component | Value | Ref Range | Performed | Pathologist | | | | | At | Signature | + + + + + + | Glucose, | 69Comment: Testing | 65 - 99 mg/dL | [facility] | | | POC | performed at [facility];[address] | | LABORATORY | | | | [address];[place] | | | | | | [address] | | | | + + + + + + + + | Specimen | + + | | + + + + + + + | Performing | Address | City/State/Zipcode | Phone Number | | Organization | | | | + + + + + | [facility] | [address] | [place] [address] | [phone] | + + + + + Lipid [...] | | | Calculated | performed at [facility], [address] | | LABORATORY | | | | [address], | | | | | | [place] [address] | | | | + + + + + + + + | Specimen | + + | | + + + + + + + | Performing | Address | City/State/Zipcode | Phone Number | | Organization | | | | + + + + + | [facility] | [address] | [place] [address] | [phone] | + + + + + Magnesium (08/19/2019 5:17 AM PDT) + + + + + + | Component | Value | Ref Range | Performed | Pathologist | | | | | At | Signature | + + + + + + | Magnesium | 1.7Comment: Testing | 1.7 - 2.4 mg/dL | YUE | | | | performed at [facility];[address] | | LABORATORY | | | | [address];[place] | | | | | | [address] | | | | + + + + + + + + | Specimen | + + | Blood | + + + + + + + | Performing | Address | City/State/Zipcode | Phone Number | | Organization | | | | + + + + + | [facility] | [address] | [place] [address] | [phone] | + + + + + Comprehensive [...] 15 | 10 - 65 U/L | [facility] | | | | | | LABORATORY | | + + + + + + | Estimated | 44 (L)Comment: GFR <60: | >60 | [facility] | | | GFR | CHRONIC KIDNEY [...] | | | | | performed at [facility], [address] | | | | | | [facility], | | | | | | [place] [address] | | | | + + + + + + + + | Specimen | + + | Blood | + + + + + + + | Performing | Address | City/State/Zipcode | Phone Number | | Organization | | | | + + + + + | [facility] | [address] | [place] [address] | [phone] | + + + + + CBC [...] | 10.0Comment: NO NORMAL | fl | SOLO | | | | RANGE ESTABLISHEDTesting | | LABORATORY | | | | performed at [facility], [address] | | | | | [address], | | | | | | [place] [address] | | | | + + + + + + + + | Specimen | + + | Blood | + + + + + + + | Performing | Address | City/State/Zipcode | Phone Number | | Organization | | | | + + + + + | [facility] | [address] | [place] [address] | [phone] | + + + + + POC Glucose (08/18/2019 8:27 PM PDT) + + + + + + | Component | Value | Ref Range | Performed | Pathologist | | | | | At | Signature | + + + + + + | Glucose, | 79Comment: Testing | 65 - 99 mg/dL | [facility] | | | POC | performed at [facility];[address] | | LABORATORY | | | | [address];[place], [place] | | | | | | [address] | | | | + + + + + + + + | Specimen | + + | | + + + + + + + | Performing | Address | City/State/Zipcode | Phone Number | | Organization | | | | + + + + + | [facility] | [address] | [place] [address] | [phone] | + + + + + POC [...] | | | POC | performed at [facility];[address] | | LABORATORY | | | | [address];[place] | | | | | | [address] | | | | + + + + + + + + | Specimen | + + | | + + + + + + + | Performing | Address | City/State/Zipcode | Phone Number | | Organization | | | | + + + + + | [facility] | [address] | [place] [address] | [phone] | + + + + + Hemoglobin [...] [facility] | | | | performed at [facility];[address] | | LABORATORY | | | | [address];[place], [place] | | | | | | [address] | | | | + + + + + + + + | Specimen | + + | Blood | + + + + + + + | Performing | Address | City/State/Zipcode | Phone Number | | Organization | | | | + + + + + | [facility] | [address] | [place] [address] | [phone] | + + + + + POC [...] | | | POC | performed at [facility];[address] | | LABORATORY | | | | [address];[place] | | | | | | [address] | | | | + + + + + + + + | Specimen | + + | | + + + + + + + | Performing | Address | City/State/Zipcode | Phone Number | | Organization | | | | + + + + + | [facility] | [address] | [place] [address] | [phone] | + + + + + MIRYAM (08/18/2019 11:32 AM PDT) + + | Specimen | + + | | + + + + + | Narrative | Performed At | + + + | [facility] | [facility] | | [facility] | PROV[facility] | | CenterGastroenterology | | | Patient Name: July Forte | | | Sapna Procedure Date: 08/18/2019 11:32 AMMRN: [id number] | | | of : 1970 | | | Note Status: FinalizedAttending MD: STEPAN Fay | | | MD DONY | | | | | | Procedure Type: Upper GI | | | endoscopyIndications: Suspected upper | | | gastrointestinal bleedingProviders: STEPAN Aponte | | | AARON NAPOLESedicines: Monitored Anesthesia | | | CareComplications: No [...] the anesthesiologist and the | | | laser technician in the pre-procedure area in the [...] | 08/18/2019 11:32 AMNumber of Addenda: 0 [facility] | | | Center | | | [...] 0 | | | | | | [facility] | | + + + + +---------+ [...] Testing | 34.0 - 46.0 % | SOLO | | | | performed at [facility];[address] | | LABORATORY | | | | [address];[place] | | | | | | [address] | | | | + + + + + + + + | Specimen | + + | Blood | + + + + + + + | Performing | Address | City/State/Zipcode | Phone Number | | Organization | | | | + + + + + | [facility] | [address] | [place] [address] | [phone] | + + + + + Red [...] BANK | Testing performed at | | [facility] | | | COMMENT | [facility];[address] | | LABORATORY | | | | [address];[place] [address] | | | | + + + + + + + + | Specimen | + + | | + + + + + + + | Performing | Address | City/State/Zipcode | Phone Number | | Organization | | | | + + + + + | [facility] | [address] | [place] [address] | [phone] | + + + + + POC Glucose (08/18/2019 7:41 AM PDT) + + + + + + | Component | Value | Ref Range | Performed | Pathologist | | | | | At | Signature | + + + + + + | Glucose, | 84Comment: Testing | 65 - 99 mg/dL | [facility] | | | POC | performed at [facility];[address] | | LABORATORY | | | | [address];[place], [place] | | | | | | [address] | | | | + + + + + + + + | Specimen | + + | | + + + + + + + | Performing | Address | City/State/Zipcode | Phone Number | | Organization | | | | + + + + + | [facility] | [address] | [place] [address] | [phone] | + + + + + Red [...] | ORDER RECEIVED IN BLOOD | | [facility] | | | COMMENT | BANK. | | LABORATORY | | + + + + + + | BLOOD BANK | Testing performed at | | [facility] | | | COMMENT | [facility];[address] | | LABORATORY | | | | [address];[place] [address] | | | | + + + + + + + + | Specimen | + + | | + + + + + + + | Performing | Address | City/State/Zipcode | Phone Number | | Organization | | | | + + + + + | [facility] | [address] | [place] [address] | [phone] | + + + + + Magnesium (08/18/2019 4:08 AM PDT) + + + + + + | Component | Value | Ref Range | Performed | Pathologist | | | | | At | Signature | + + + + + + | Magnesium | 2.0Comment: Testing | 1.7 - 2.4 mg/dL | [facility] | | | | performed at [facility];[address] | | LABORATORY | | | | [address];[place] | | | | | | [address] | | | | + + + + + + + + | Specimen | + + | | + + + + + + + | Performing | Address | City/State/Zipcode | Phone Number | | Organization | | | | + + + + + | [facility] | [address] | [place] [address] | [phone] | + + + + + Lipid [...] | 44Comment: Testing | <100 mg/dL | [facility] | | | Calculated | performed at [facility], [address] | | LABORATORY | | | | [address], | | | | | | [place] [address] | | | | + + + + + + + + | Specimen | + + | | + + + + + + + | Performing | Address | City/State/Zipcode | Phone Number | | Organization | | | | + + + + + | [facility] | [address] | [place] [address] | [phone] | + + + + + Comprehensive [...] 35 (L)Comment: GFR <60: | >60 | [facility] | | | GFR | CHRONIC KIDNEY [...] | | | | | performed at [facility];[address] | | | | | | [facility];[place], [place] | | | | | | [address] | | | | + + + + + + + + | Specimen | + + | | + + + + + + + | Performing | Address | City/State/Zipcode | Phone Number | | Organization | | | | + + + + + | [facility] | [address] | [place] [address] | [phone] | + + + + + CBC [...] [facility] | | | | TO KAREN Calixto RN/4E AT | g/dL | LABORATORY | [...] | | | Absolute | performed at [facility];[address] | [address]/u[address] | LABORATORY | | | | [address];[place], [place] | | | | | | [address] | | | | + + + + + + + + | Specimen | + + | | + + + + + + + | Performing | Address | City/State/Zipcode | Phone Number | | Organization | | | | + + + + + | [facility] | [address] | [place] [address] | [phone] | + + + + + Red [...] | | | | | COMMENT | [facility];[address] | | | | | | [address];[place] [address] | | | | + + + + + + + + | Specimen | + + | | + + + + + + + | Performing | Address | City/State/Zipcode | Phone Number | | Organization | | | | + + + + + | [facility] | [address] | [place] [address] | [phone] | + + + + + POC [...] | | | POC | performed at [facility];[address] | | LABORATORY | | | | [address];[place], [place] | | | | | | [address] | | | | + + + + + + + + | Specimen | + + | | + + + + + + + | Performing | Address | City/State/Zipcode | Phone Number | | Organization | | | | + + + + + | [facility] | [address] | [place] [address] | [phone] | + + + + + Coronavirus (COVID-19) NAAT (08/17/2019 6:23 PM PDT) + + + + + + | Component | Value | Ref Range | Performed | Pathologist | | | | | At | Signature | + + + + + + | SARS-CoV-2, | NEGATIVEComment: This | NEG | [facility] | | | NAAT | test was [...] | | | | | performed at [facility] | | | | | | [facility];[place], [place] | | | | | | [address] | | | | + + + + + + + + | Specimen | + + | Tissue - Entire | | nasopharynx (body | | structure) | + + + + + + + | Performing | Address | City/State/Zipcode | Phone Number | | Organization | | | | + + + + + | [facility] | [address] | [place] [address] | [phone] | + + + + + Vitamin D, Deficiency Screen (25-Hydroxy) (08/17/2019 5:01 PM PDT) + + + + + + | Component | Value | Ref Range | Performed | Pathologist | | | | | At | Signature | + + + + + + | Vit D, | 35.0Comment: Vitamin D | 30.0 - 100.0 | [facility] | | | 25-Hydroxy | deficiency has been | ng/mL | LABORATORY | | | | defined by the [place] | | | | | | ofMedicine and an | | | | | [...] IOM | | | | | | ([place] [employer]). | | | | | [...] | | | | | performed at [facility], | | | | | | [address], [address], | | | | | | [facility] [address] | | | | + + + + + + + + | Specimen | + + | Blood | + + + + + + + | Performing | Address | City/State/Zipcode | Phone Number | | Organization | | | | + + + + + | [facility] | [address] | [place] [address] | [phone] | + + + + + Retic [...] | | | Reticulocyt | performed at [facility];[address] | | LABORATORY | | | e Count | [address];[place] | | | | | | [address] | | | | + + + + + + + + | Specimen | + + | Blood | + + + + + + + | Performing | Address | City/State/Zipcode | Phone Number | | Organization | | | | + + + + + | [facility] | [address] | [place] [address] | [phone] | + + + + + Hemoglobin A1C (08/17/2019 5:01 PM PDT) + + + + + + | Component | Value | Ref Range | Performed | Pathologist | | | | | At | Signature | + + + + + + | Hemoglobin | 7.1 (H)Comment: | 4.8 - 5.6 % | [facility] | | | A1c | Prediabetes: 5.7 [...] [address], | | | | | | [facility] [address], [facility] | | | | | | [address] | | | | + + + + + + + + | Specimen | + + | Blood | + + + + + + + | Performing | Address | City/State/Zipcode | Phone Number | | Organization | | | | + + + + + | [facility] | [address] | [place] [address] | [phone] | + + + + + Folate (08/17/2019 5:01 PM PDT) + + + + + + | Component | Value | Ref Range | Performed | Pathologist | | | | | At | Signature | + + + + + + | FOLATE | 17.2Comment: A serum | >3.0 ng/mL | [facility] | | | | folate concentration of | | LABORATORY | | | | less than 3.1 ng/mL | | | | | | isconsidered to | | | | | | represent clinical | | | | | | deficiency.Testing | | | | | | performed at [facility], | | | | | | [address], [address], | | | | | | [facility] [address] | | | | + + + + + + + + | Specimen | + + | Blood | + + + + + + + | Performing | Address | City/State/Zipcode | Phone Number | | Organization | | | | + + + + + | [facility] | [address] | [place] [address] | [phone] | + + + + + Vitamin B-12 (08/17/2019 5:01 PM PDT) + + + + + + | Component | Value | Ref Range | Performed | Pathologist | | | | | At | Signature | + + + + + + | VITAMIN | 578Comment: Testing | 232 - 1,245 | [facility] | | | B-12 | performed at [facility], | pg/mL | LABORATORY | | | | [address], [address], | | | | | | [facility] [address] | | | | + + + + + + + + | Specimen | + + | Blood | + + + + + + + | Performing | Address | City/State/Zipcode | Phone Number | | Organization | | | | + + + + + | [facility] | [address] | [place] [address] | [phone] | + + + + + Iron and Iron Binding Capacity (08/17/2019 5:01 PM PDT) + + + + + + | Component | Value | Ref Range | Performed | Pathologist | | | | | At | Signature | + + + + + + | Iron | 27 (L) | 30 - 180 ug/dL | [facility] | | | | | [...] | | LABORATORY | | | | [facility], | | | | | | [place] [address] | | | | + + + + + + + + | Specimen | + + | Blood | + + + + + + + | Performing | Address | City/State/Zipcode | Phone Number | | Organization | | | | + + + + + | [facility] | [address] | [place] [address] | [phone] | + + + + + Ferritin (08/17/2019 5:01 PM PDT) + + + + + + | Component | Value | Ref Range | Performed | Pathologist | | | | | At | Signature | + + + + + + | Ferritin | 40Comment: Testing | 15 - 150 ng/mL | [facility] | | | | performed at [facility], | | LABORATORY | | | | [address], [address], | | | | | | [place] [address] | | | | + + + + + + + + | Specimen | + + | Blood | + + + + + + + | Performing | Address | City/State/Zipcode | Phone Number | | Organization | | | | + + + + + | [facility] | [address] | [place] [address] | [phone] | + + + + + PTT (08/17/2019 5:01 PM PDT) + + + + + + | Component | Value | Ref Range | Performed | Pathologist | | | | | At | Signature | + + + + + + | PTT | 22 (L)Comment: Testing | 23 - 32 seconds | [facility] | | | | performed at [facility];[address] | | LABORATORY | | | | [address];[place] | | | | | | [address] | | | | + + + + + + + + | Specimen | + + | Blood | + + + + + + + | Performing | Address | City/State/Zipcode | Phone Number | | Organization | | | | + + + + + | [facility] | [address] | [place] [address] | [phone] | + + + + + Protime [...] | | | | | performed at [facility];[address] | | | | | | [facility];[place], [place] | | | | | | [address] | | | | + + + + + + + + | Specimen | + + | Blood | + + + + + + + | Performing | Address | City/State/Zipcode | Phone Number | | Organization | | | | + + + + + | [facility] | [address] [facility] | [place] [address] | [phone] | + + + + + Comprehensive [...] 28 (L)Comment: GFR <60: | >60 | [facility] | | | GFR | CHRONIC KIDNEY [...] | | | | | performed at [facility];[address] | | | | | | [facility];[place], [place] | | | | | | [address] | | | | + + + + + + + + | Specimen | + + | Blood | + + + + + + + | Performing | Address | City/State/Zipcode | Phone Number | | Organization | | | | + + + + + | [facility] | [address] | [place] [address] | [phone] | + + + + + CBC [...] 0.00Comment: Testing | 0.00 - 0.10 | [facility] | | | Absolute | performed at [facility];[address] | [address] | LABORATORY | | | | [address];[place] | | | | | | [address] | | | | + + + + + + + + | Specimen | + + | Blood | + + + + + + + | Performing | Address | City/State/Zipcode | Phone Number | | Organization | | | | + + + + + | [facility] | [address] | [place] [address] | [phone] | + + + + + Type [...] + + + | BB BAND | [id number] | | [facility] | | | | | | LABORATORY | | + + + + + + | UNIT # | [id number] | | [facility] | | | | [...] + + + | UNIT # | [id number] | | [facility] | | | | [...] + + + | UNIT # | [id number] | | [facility] | | | | [...] + + + | UNIT # | [id number] | | [facility] | | | | [...] + + + | UNIT # | [id number] | | [facility] | | | | [...] | | | RESULT | performed at [facility] | | LABORATORY | | | | [address];[place] | | | | | | [address] | | | | + + + + + + + + | Specimen | + + | Blood | + + + + + + + | Performing | Address | City/State/Zipcode | Phone Number | | Organization | | | | + + + + + | [facility] | [address] | [place] [address] | [phone] | + + + + + documented [...] | | | C (101.5 F), Starting 08/17/19 | | | | | | | at 2004 | | | | | | + [...] PDT | | | | | 2100, Neo henry. Use with | | | | | | | spacer., | | | | | | + +-------+ +---------+---+---+ +---+---+ | | | +---+---+ + +-------+ +--------+---+---+ | ascorbic acid (VITAMIN C) | Given | 08/19/19 | 500 mg | | | | tablet 500 mg 500 mg, Oral, | | 20 8:20 | | | | | DAILY, First dose on Thu08/18/19 | | AM PDT | | | [...] DAILY, First dose on Thu | | AM [...] | | | | | | | 4160-6547 Use NIGHT DOSE for | | | | | | | doses scheduled: HS, | | | | | | | Nighttime 2675-2249 If the BG is | | | [...] PDT | | | | +-------+ +-------+---+---+ + +---+ | | | + +---+ | pantoprazole (PROTONIX) | | | injection 40 mg 40 mg, | | | Intravenous, 2 TIMES DAILY, First | | | dose on Thu08/19/19 at 2100, | | | Indication: Bleed, upper GI | | + +---+ | | | + +---+ + +-------+ +-------+---+---+ | rosuvastatin (CRESTOR) tablet [...] | | | | | dose on [facility] 08/18/19 at 0900 | | AM PDT | [...] +---+ +---+ +---+---+ | | | +---+---+ documented in [...]
--- OUTSIDE RECORDS SUMMARY | ~2019-11-09 | XMS | Encounter Summary ---
Demographics + + + | Address | [address] | | | [place] [address] | + + + | Home Phone [...] Author + + + | Author | [facility] | | | and [place] | + + + | Organization | [facility] | | | [...] Team Providers + +------+ + | Care Riprap Placing Supervisor Name | Role | Phone | + +------+ + | Ronel Jacobson PA-C | PCP | | + +------+ + Encounter Details +--------+ + + + + | Date | Type | Department | Care Team | Description | +--------+ + + + + | 04/07/ | Orders Only | [facility] | Mariana Cortez, | CKD (chronic kidney | | 2019 | | NEPHROLOGY [address] | disease) stage 3, | | | | [address] | [address] [place] | GFR 30-59 ml/min | | | | [place], [place] | [place] [address] | ([facility]) (Primary Dx) | | | | [address] | [phone] | | | | | [phone] | | | +--------+ + + + [...] this encounter Progress Glo Calle RN - 04/07/2018 11:52 AM PSTLabs for nephrology appt on 05/11/18 sent to [facility]. documented in this en counter Plan of [...] [place] | | | | | | [id number] | | | | | | | | +--------+ + + + + | 01/17/ | Office | Vascular Surgery | Bill Arevalo DNP | | | 2019 | Visit | | [address] | | | | | | [place] | | | | | | [address] | | | | | | | | +--------+ + + + + | 05/22/ | Office | Nephrology | Mariana Cortez, | | | 2020 | Visit | | [address] | | | | | | [address] [place] | | | | | | [place] [address] | | | | | | [phone] | | | | | | | | +--------+ + + + + + +------+--------+ + + | Name | Type | Priori | Associated Diagnoses | Order Schedule | | | | ty | | | + +------+--------+ + + | CBC with | Lab | Routin | CKD (chronic | Expected: 05/04/2018 | | Differential | | e | kidney disease) | (Approximate), | | | | | stage 3, GFR 30-59 | Expires: 04/08/2019 | | | | | ml/min (HCC) | | + +------+--------+ + + | Renal Function Panel | Lab | Routin | CKD (chronic | Expected: 05/04/2018 | | | | e | kidney disease) | (Approximate), | | | | | stage 3, GFR 30-59 | Expires: 04/08/2019 | | | | | ml/min (HCC) | | + +------+--------+ + + | Urinalysis With | Lab | Routin | CKD (chronic | Expected: | | Microscopic | | e | kidney disease) | 05/04/2018, Expires: | | | | | stage 3, GFR 30-59 | 04/07/2019 | | | | | ml/min (HCC) | | + +------+--------+ + + | Protein/Creatinine | Lab | Routin | CKD (chronic | Expected: 05/04/2018 | | Ratio, Urine | | e | kidney disease) | (Approximate), | | | | | stage 3, GFR 30-59 | Expires: 04/08/2019 | | | | | ml/min (HCC) | | + +------+--------+ + + documented as of this encounter Visit Diagnoses + + | Diagnosis | + + | CKD (chronic kidney disease) stage 3, GFR 30-59 ml/min - Primary Chronic kidney | | disease, Stage III (moderate) | + + documented in this encounter"
--- OUTSIDE RECORDS SUMMARY | ~2019-11-09 | XMS | Encounter Summary ---
Demographics + + + | Address | [address] | | | [place] [address] | + + + | Home Phone [...] Team Providers + +------+ + | Care Historical Guide Name | Role | Phone | + +------+ + | Mehrdad Avalos MD | PCP | | + +------+ + Reason for Visit + + + | Reason | Comments | + + + | Establish Care | | + + + Evaluate & Treat (Routine) +--------+--------+ + + + + | Status | Reason | Specialty | Diagnoses / | Referred By | Referred To | | | | | Procedures | Contact | Contact | +--------+--------+ + + + + | Closed | | Infectious | Diagnoses | Cespedes, | Janak | | | | Diseases | | Krishna F, | Infectious | | | | | Osteomyeliti | DPM [address] | [address] | | | | | s, | [address] | [address] | | | | | unspecified | [address] | [place] | | | | | (HCC) | [place], | [address] | | | | | Non-pressure | [place] | Phone: | | | | | chronic | [address] | [phone] | | | | | ulcer of | Phone: | Fax: | | | | | other part | [phone] | [phone] | | | | | of | Fax: | | | | | | unspecified | [phone] | | | | | | foot with | | | | | | | unspecified | | | | | | | severity | | | | | | | ([facility]) Type | | | | | | | 2 diabetes | | | | | | | mellitus | | | | | | | with foot | | | | | | | ulcer (HCC) | | | +--------+--------+ + + + + Encounter Details +--------+---------+ + + + | Date | Type | Department | Care Team | Description | +--------+---------+ + + + | 08/01/ | Office | [facility] | Louie Henry, | Osteomyelitis of | | 2020 | Visit | INFECTIOUS DISEASE | Carmine Kebede MD | fifth toe of right | | | | [address] | [address] | foot (HCC) (Primary | | | | [place], [place] | [place] [address] | Dx); Acute | | | | [address] | [phone] | osteomyelitis of | | | | [phone] | | metatarsal bone, | | | | | | right (HCC); | | | | | | Polymicrobial | | | | | | bacterial infection; | | | | | | MSSA infection, | | | | | | non-invasive; | | | | | | Serratia infection; | | | | | | Type 2 diabetes, | | | | | | controlled, with | | | | | | neuropathy (HCC); | | | | | | CKD (chronic kidney | | | | | | disease) stage 3, | | | | | | GFR 30-59 ml/min | | | | | | (HCC) | +--------+---------+ + + + Social [...] + + + | Blood Pressure | 137/78 | 08/02/2019 1:04 PM | | | | | PDT | | + + + + + | Pulse | 113 | 08/02/2019 1:04 PM | | | | | PDT | | + + + + + | Temperature | 36.6 C (97.8 F) | 08/02/2019 1:04 PM | | | | | PDT | | + + + + + | Respiratory Rate | 16 | 08/02/2019 1:04 PM | | | | | PDT | | + + + + + | Oxygen Saturation | 100% | 08/02/2019 1:04 PM | | | | | PDT | | + + + + + | Inhaled Oxygen | - | - | | | Concentration | | | | + + + + + | Weight | 95.3 kg (210 lb) | 08/02/2019 1:04 PM | | | | | PDT | | + + + + + | Height | 160 cm (5' 3") | 08/02/2019 1:04 PM | | | | | PDT | | + + + + + | Body Mass Index | 37.2 | 08/02/2019 1:04 PM | | | | | PDT | | + + + + + documented in this encounter Patient Instructions Patient Instructions Carmine Griggs MD - 08/02/2019 1:00 PM PDTStop IV vanc omycin and levofloxacin. Start new antibiotic today. Weekly CBC CMp ESR CRP. Orders to [facility] by Dr. Cespedes. Instructions for Osteomyelitis You have a condition called osteomyelitis. This is a bone infection caused by bacteria or f ungi. The infection may have come from one area of your body and spread to the bone by john dunham through the blood. Osteomyelitis is described as acute when the infection is new and chronic when you have had the infection for a longer time. If you have any questio ns or concerns, call your healthcare provider. Home care Take your medicine exactly as directed. If you were given antibiotics or antifungal medi cine, make sure you finish the prescription even if you feel better. If you don t finish the medicine, the infection may return and may make future infections harderto treat. Be careful not to injure the area where you have the infection. Carefully follow all instructions for taking care of any wounds. Use a splint, sling, or brace as directed by your healthcare provider. Follow-up care Make a follow-up appointment, or as directed. When to seek medical care Call your healthcare providerif you have any of the following: Increasing pain, redness, swelling, or drainage in the infected area Fever 100.4 F( 38C) or greater, or as advised Increasing fatigue or feeling tired [employer] last reviewed this educational content on 07/10/201819997367-5482 The [employer]. [address] [place] [address]. All righ ts reserved. This information is not intended as a substitute for professional medical care. Always follow your healthcare professional's instructions. documented in this encounter Progress Notes Carmine Griggs MD - 08/02/2019 1:00 PM PDT [facility] Service: Infectious Diseases Initial Outpatient Consult Note REQUESTING PHYSICIAN/PROVIDER: Mehrdad Avalos MD REASON FOR CONSULT Other: Osteomyelitis CHIEF COMPLAINT Right foot draining wound HISTORY OF PRESENT ILLNESS The patient is a 49 y.o.-year-old female with significant PMH of type 2 diabetes, chronic k idney disease, seen in consultation for osteomyelitis of the right foot. History is obtained from: the patient and records from referring physician. The patient presents to our clinic referred [...] did have surgical de bridement but her bowel was left intact allowing for antibiotic therapy [...] (obstructive sleep apnea) RLS (restless legs syndrome) Past Surgical History: Procedure Laterality Date NASAL SEPTUM SURGERY Bilateral 02/24/2017 Procedure: Septoplasty, Inferior Turbinoplasty; Surgeon: Henok Luhter MD; Location: [facility] MAIN OR Social History Socioeconomic History Marital status: Single Spouse name: Not on file Number of children: 0 Years of education: 13 Highest education level: Not on file Occupational History Employer: OTHER Comment: [employer] [facility] [place] Social Needs Financial resource strain: Not on file Food insecurity Worry: Not on file Inability: Not on file Transportation needs Medical: Not on file Non-medical: Not on file Tobacco Use Smoking status: Current Every Day Smoker Packs/day: 0.25 Years: 20.00 Pack years: 5.00 Types: Cigarettes Last attempt to quit: 09/23/2012 Years since quittin.8 Smokeless tobacco: Never Used Substance and Sexual [...] file Gets together: Not on file Attends druze service: Not on file Active member of [...] Social History Narrative Lives in house in [facility]. IMMUNIZATIONS: Immunization History Administered Date(s) Administered TDAP, (ADOL/ADULT) 09/08/2012 stated as current, but no records available Family History Problem Relation Age of Onset Hypertension Father Stomach cancer Mother 60 Diabetes Other Diabetes Sister Hypertension Sister Diabetes Sister Hypertension Sister Diabetes Sister Hypertension Sister Hypertension Sister MEDICATIONS Reviewed with the patient today. Patient did [...] MINI PEN NEEDLES 31G X 5 MM [facility], , Disp: , Rfl: CROW CONTOUR TEST [...] use generic)., Disp: 2 each, Rfl: 1 ertapenem (INVanz) IVPB (custom dose) 1 g, Inject 1 g into the vein every 24 hours, Di sp: 1 each, Rfl: 0 ferrous sulfate 325 mg tablet, Take 325 [...] Disp: 90 tablet, Rfl: 3 TechLite Lancets [facility], , Disp: , Rfl: Allergies Allergen Reactions Furosemide Swelling REVIEW OF SYSTEMS 12+ systems reviewed. Negative except as per HPI. PHYSICAL EXAM Vital Signs: BP 137/78 | Pulse 113 | Temp 36.6 C (97.8 F) (Oral) | Resp 16 | Ht 1.6 m (5' 3") | Wt 95.3 kg (210 lb) | SpO2 100% | BMI 37.20 kg/m Estimated body mass index is 37.2 kg/m as calculated from the following: Height as of this encounter: 1.6 m (5' 3"). Weight as of this encounter: 95.3 kg (210 lb). General Appearance: Alert, cooperative, no distress. Obese. [...] four quadrants, no masses, no organomegaly Extremities: Right foot dorsal lateral aspect with extensive wound with mucopurulent disch arge, surrounding erythema. No visible bone. Pulses: 2+ and symmetric all extremities Skin: Skin color, texture, turgor normal, no rashes or lesions Lymph nodes: Cervical, supraclavicular, and axillary nodes normal Neurologic: Alert, oriented, no focal deficits. Venous access: Venous access: PICC. Location: upper extremity. REVIEW OF LABS: All labs were reviewed. Results for orders placed or performed in visit on 05/16/19 External Lab: Vitamin D, 25-Hydroxy Result Value Ref Range Vitamin D, 25-Hydroxy, External 30.7 Abstract on 05/16/2019 Component Date Value Ref Range Status Vitamin D, 25-Hydroxy, External 05/09/2019 30.7 Final CrCl cannot be calculated (No successful lab value found.). MICROBIOLOGY Microbiology Results (Last 14 Days by Collected Date with Culture/Sensitivity) No results found for the last 336 hours. ASSESSMENT AND RECOMMENDATIONS The patient is a 49 y.o.-year-old female with the following problems: Visit Diagnoses and Associated Orders: July was seen today for establish care. Diagnoses and all orders for this visit: Osteomyelitis of fifth toe of right foot (HCC) - ertapenem (INVanz) IVPB (custom dose) 1 g; Inject 1 g into the vein every 24 hours Acute osteomyelitis of metatarsal bone, right (HCC) - ertapenem (INVanz) IVPB (custom dose) 1 g; Inject 1 g into the vein every 24 hours Polymicrobial bacterial infection MSSA infection, non-invasive Serratia infection Type 2 diabetes, controlled, with neuropathy ([facility]) CKD (chronic kidney disease) stage 3, GFR 30-59 ml/min ([facility]) 1. Patient with significant diabetic foot infection, osteomyelitis of the fifth toe as wel l as fifth metatarsal, polymicrobial infection including MSSA, group B streptococcus, Serrat ia, possibly anaerobes. The patient will start treatment with IV ertapenem 1 g daily. She already has a PICC line. She will continue weekly monitorization with a CBC, CMP, ESR, CRP. Vancomycin and levofloxacin may be discontinued at the moment. The patient was explained about antibiotic therapy, duration, prognosis. We will monitor h er response. Her infection is significant and IV antibiotic therapy has a risk of failure h ere. Also, the patient is getting her OPAT in her local hospital and I do not have privileges or her license to prescribe her treatment in that location. Therefore, her under baster will be contacted for recommendations. Otherwise, if patient qualifies for home IV antibiotic ther apy I will be happy to take over. Side effects of medications, duration of therapy, prognosis and importance of adherence wer e discussed with the patient today. Follow up in 2 weeks. Carmine Palma MD, MPH Infectious Diseases 08/02/2019 document ed in this encounter Plan of Treatment +--------+ [...] [place] | | | | | | [address] | | | | | | | | +--------+ + + + + | 01/17/ | Office | Vascular Surgery | Bill Arevalo DNP | | | 2019 | Visit | | [address] | | | | | | [place] | | | | | | [address] | | | | | | | | +--------+ + + + + | 05/22/ | Office | Nephrology | Mariana Cortez W, | | | 2020 | Visit | | [address] | | | | | | [address] [place] | | | | | | [place] [address] | | | | | | [phone] | | | | | | | [...] MSSA infection, non-invasive | + + | Serratia infection Infection due to other gram-negative organisms in conditions | | classified elsewhere and of unspecified site | + + | Type 2 diabetes, controlled, with neuropathy (HCC) Type II or unspecified type | | diabetes mellitus with neurological manifestations, not stated as uncontrolled | + + | CKD (chronic kidney disease) stage 3, GFR 30-59 ml/min Chronic kidney disease, Stage | | III (moderate) | + + documented in this encounter
--- OUTSIDE RECORDS SUMMARY | ~2019-11-09 | XMS | Encounter Summary ---
Demographics + + + | Address | [address] | | | [place] [address] | + + + | Home Phone [...] Team Providers + +------+ + | Care Hadoop Analyst Name | Role | Phone | [...] | | | rhinitis due | [place] [address] | [address] Phone: | | | | | to animal | Phone: | [phone] | | | | | (cat) (dog) | [phone] | Fax: | | | | | hair and | Fax: | [phone] | | | | | dander | [phone] | | | | | | Allergic | | | | | | | rhinitis due | | | | | | | to dust | | | | | | | Procedures | | | | | | | [place] | | | | | | | IMMUNOTHERAP | | | | | | | Y, ONE | | | | | | | INJECTION | | | | | | | [place] | | | | | | | IMMUNOTHERAP | | | | | | | Y, 2+ | | | | | | | INJECTIONS | | | | | | | DC PROFES | | | | | | [...] | unspecified asthma | | | | [place], [place] | [address] | severity, | | | | [address] | | uncomplicated | | | | [phone] | | (Primary Dx) | +--------+ + + + + [...] encounter Progress Notes Modesta Benitez RN - 01/09/2016 4:03 PM PSTPatient presents with epi-pen & inhaler . No active wheezing or cough associated with asthma today. Denies delayed reaction from pre vious allergy injection. No fever or allergy related rash. No recent heavy exposure to aller gens. No plans for strenuous exercise immediately before or after injection today.Electronic ally signed by Modesta Benitez RN at 01/09/2016 4:42 PM PSTdocumented in this encoun ter Plan [...] [place] | | | | | | [place] [address] | | | | | | [phone] | | | | | | | | +--------+ + + + + documented as of this encounter Visit Diagnoses + + | Diagnosis | + + | Asthmatic bronchitis, unspecified asthma severity, uncomplicated - Primary | + + documented in this encounter"
--- OUTSIDE RECORDS SUMMARY | ~2019-11-09 | XMS | Encounter Summary ---
Demographics + + + | Address | [address] | | | [place] [address] | + + + | Home Phone [...] Author + + + | Author | [facility] | | | and [place] | + + + | Organization | [facility] | | | [...] Team Providers + +------+ + | Care Project Controls Specialist Name | Role | Phone | [...] [address] | [address] [place], [place] | severity, | | | | [place], [place] | [address] | unspecified whether | | | | [address] | | complicated, | | | | [phone] | | unspecified whether | | | [...] encounter Progress Notes Domenica Meredith RN - 04/09/2017 3:30 PM PSTFormatting of this note might be [...] Mixed immunotherapy treatment vial for patient on . TREATMENT SET July [place] Weeds & Grass: 04/09/17 04/09/2017 Allergen Extract Amount/ml Dilution Lot # Expiration Date Ragweed Mix Pigweed 0.2 C 134063 10/22/19 Kochia 0.2 C 623816 11/30/19 Humphrey's Quarter 0.2 C 506949 11/30/19 Luther Elder 0.2 C 875378 02/01/20 Amharic Plantain 0.2 C 195574 06/01/19 False Ragweed 0.2 C 607056 04/29/19 Luxembourger Thistle 0.2 C 566412 11/30/19 Sagebrush 0.2 C 095883 11/30/19 Sheep [place] Dandelion 0.2 C 905922 10/08/19 Atriplex Mix 0.2 C 741771 01/14/20 #7 Grass Mix 0.2 C 462683 06/02/18 Bermuda Grass 0.2 C [id number] 03/14/20 Sameer Grass 0.2 C 748010 11/30/19 [place] 0.2 C 141215 10/08/19 Total Allergens: 2.8 ml. Saline: 0.2 [...] [place] | | | | | | [address] | | | | | | | | +--------+ + + + + | 05/22/ | Office | Nephrology | Mariana Cortez, | | | 2020 | Visit | | MD [address] | | | | | | [address] [place] | | | | | | [place] [address] | | | | | | [phone] | | | | | | | | +--------+ + + + + +-------+ +--------+ + + | Name | Type | Priori | Associated Diagnoses | Order Schedule | | | | ty | | | +-------+ +--------+ + + | Vials | Procedures | Routin | Allergic rhinitis | Ordered: 04/09/2017 | | | | e | due to animal hair | | | | | | and dander, | | | | | | unspecified | | | | | | chronicity | | | | | | Non-seasonal | | | | | | allergic rhinitis | | | | | | due to pollen, | | | | | | unspecified | | | | | | chronicity Allergic | | | | | | rhinitis due to | | | | | | dust mite Extrinsic | | | | | | asthma, unspecified | | | | | | asthma severity, | | | | | | unspecified whether | | | | | | complicated, | | | | | | unspecified whether | | | | | | persistent | | +-------+ +--------+ + + documented as of this encounter Procedures + +--------+ + + + | Procedure Name | Priori | Date/Time | Associated Diagnosis | Comments | | | ty | | | | + +--------+ + + + | LABS - EXTERNAL SCAN | | 03/27/2017 | | Results for this | | | | 12:00 AM | | procedure are in the | | | | PST | | results section. | + +--------+ + + + documented in this encounter Results LABS - EXTERNAL SCAN (03/27/2017 12:00 AM PST) + + + | [...]
--- OUTSIDE RECORDS SUMMARY | ~2019-11-09 | XMS | Encounter Summary ---
Demographics + + + | Address | [address] | | | [place] [address] | + + + | Home Phone [...] Organization | [facility] [...] Team Providers + +------+ + | Care Mill And Coal Transport Operator Name | Role | Phone | [...] | | | hair [place] | [place] [address] | [place], [place] | | | | | dander | Phone: | [phone] | | | | | Non-seasonal | [phone] | Phone: | | | | | allergic | Fax: | [phone] | | | | | rhinitis due | [phone] | Fax: | | | | | to pollen | | [phone] | | | | | Extrinsic | [...] | +--------+ + + + + | 10/30/ | Clinical | [facility] [place] | Henok Luther MD | Extrinsic asthma, | | 2017 | Support | [address]ARYNGOLOGY [address] | [address] | unspecified (Primary | | | | [address] | [address] [place] | Dx); Non-seasonal | | | | [place] | [address] | allergic rhinitis | | | | [address] | | due to pollen; | | | | [phone] | | Allergic rhinitis | | | [...] encounter Progress Notes Domenica Meredith RN - 10/30/2016 4:00 PM PDTFormatting of this note might be [...] Mixed immunotherapy treatment vial for patient on 10/16/16. TREATMENT SET [facility] Sapna Jann Weeds & Grass: 86 10/30/2016 Allergen Extract Amount/ml Dilution Lot # Expiration Date Ragweed Mix Pigweed 0.2 C 136335 07/20/19 Kochia 0.2 C 312724 06/11/19 Humphrey's Quarter 0.2 C 006762 09/10/19 Luther Elder 0.2 C 906248 08/04/19 Azeri Plantain 0.2 C 377504 06/11/19 False Ragweed 0.2 C 351282 08/17/19 Cambodian Thistle 0.2 C 161186 04/29/19 Sagebrush 0.2 C 819628 06/11/19 Sheep [place] Dandelion 0.2 C 268639 07/21/19 Atriplex Mix 0.2 C 615638 06/03/19 #7 Grass Mix 0.2 C 248648 04/14/18 Bermuda Grass 0.2 C [id number] 10/30/19 Sameer Grass 0.2 C 292140 03/18/19 [place] 0.2 C 083530 06/11/19 Total Allergens: 2.8 ml. Saline: 0.2 ml. [...] [place] | | | | | | [address] | | | | | | | | +--------+ + + + + | 01/17/ | Office | Vascular Surgery | Bill Arevalo DNP | | | 2019 | Visit | | [address] | | | | | | [place] | | | | | | [address] | | | | | | | | +--------+ + + + + | 05/22/ | Office | Nephrology | Mariana Cortez, | | | 2020 | Visit | | MD [address] | | | | | | [address] [place] | | | | | | [place] [address] | | | | | | [phone] | | | | | | | | +--------+ + + + + +-------+ +--------+ + + | Name | Type | Priori | Associated Diagnoses | Order Schedule | | | | ty | | | +-------+ +--------+ + + | Vials | Procedures | Routin | Non-seasonal | Ordered: 10/30/2016 | | | | e | allergic [...] | + + | Extrinsic asthma, unspecified - Primary | + + | Non-seasonal allergic rhinitis due to pollen | + + | Allergic rhinitis due to animal (cat) (dog) hair and dander | + + | Allergic rhinitis due to dust mite | + + documented in this encounter"
--- OUTSIDE RECORDS SUMMARY | ~2019-11-09 | XMS | Encounter Summary ---
Demographics + + + | Address | [address] | | | [place] [address] | + + + | Home Phone [...] + +------+ + | Care Director Of Partner Marketing Name | Role | Phone | + +------+ + PCP | Unavailable | + +------+ + Encounter Details +--------+ + + + + | Date | Type | Department | Care Team | Description | +--------+ + + + + | 24/ | Orders Only | [facility] [place] | Mariana Cortez W, | CKD (chronic kidney | | 2012 | | NEPHROLOGY [address] | disease) stage 2, | | | | [address] | [address] [place] | GFR 60-89 ml/min | | | | [place] | [place] [address] | (Primary Dx) | | | | [address] | [phone] | | | | | [phone] | | | +--------+ + + + [...] this encounter Progress Ada Rene RN - 02/01/2013 9:51 AM PSTLab expected 02/03/13 sent to [facility] documented in this e ncounter Plan [...] [place] | | | | | | [address] | | | | | | | [...] [place] | | | | | | [place] [address] | | | | | | [phone] | | | | | | | | +--------+ + + + + + +------+--------+ + + | Name | Type | Priori | Associated Diagnoses | Order Schedule | | | | ty | | | + +------+--------+ + + | Renal Function Panel | Lab | Routin | CKD (chronic | Expected: 02/03/2013 | | | | e | kidney disease) | (Approximate), | | | | | stage 2, GFR 60-89 | Expires: 02/01/2014 | | | | | ml/min | | + +------+--------+ + + documented as of this encounter Visit Diagnoses + + | Diagnosis | + + | CKD (chronic kidney disease) stage 2, GFR 60-89 ml/min - Primary Chronic kidney | | disease, Stage II (mild) | + + documented in this encounter"
--- OUTSIDE RECORDS SUMMARY | ~2019-11-09 | XMS | Encounter Summary ---
Demographics + + + | Address | [address] | | | [place] [address] | + + + | Home Phone | | + + + | Preferred Language | Unknown | + + + | Marital Status | Single | + + + | Religion Affiliation | Unknown | + + + [...] Team Providers + +------+ + | Care Fuse Cup Expander Name | Role | Phone | + [...] | | | | severity, | [place] [address] | [address] Phone: | | | | | uncomplicate | Phone: | [phone] | | | | | d | [phone] | Fax: | | | | | Non-seasonal | Fax: | [phone] | | | | | allergic | [phone] | | | | | | rhinitis due | | | | | | | to pollen | | | | | | | Procedures | | | | | | | [place] | | | | | | | IMMUNOTHERAP | | | | | | | Y, ONE | | | | | | | INJECTION | | | | | | | [place] | | | | | | | IMMUNOTHERAP | | | | | | | Y, 2+ | | | | | | | INJECTIONS | | | | | | | [place] PROFES | | | | | | [...] | +--------+ + + + + | 07/24/ | Clinical | [facility] [place] | Henok Luther MD | Asthmatic | | 2017 | Support | [address]ARYNGOLOGY [address] | [address] | bronchitis, | | | | [address] | [address] [place], [place] | unspecified asthma | | | | [place], [place] | [address] | severity, | | | | [address] | | uncomplicated; | | | | [phone] | | Non-seasonal | | | | [...] encounter Progress Notes Narda Lay, RN - 07/24/2016 3:15 PM PDTPatient presents with epi-pen & [...] [place] | | | | | | [address] | | | | | | | | +--------+ + + + + | 01/17/ | Office | Vascular Surgery | Bill Arevalo DNP | | | 2019 | Visit | | [address] | | | | | | [place] | | | | | | [address] | | | | | | | | +--------+ + + + + | 05/22/ | Office | Nephrology | Mariana Cortez W, | | | 2020 | Visit | | [address] | | | | | | [address] [place] | | | | | | [place] [address] | | | | | | [phone] | | | | | | | [...] unspecified asthma severity, uncomplicated | + + | Non-seasonal allergic rhinitis due to pollen | + + documented in this encounter"
--- OUTSIDE RECORDS SUMMARY | ~2019-11-09 | XMS | Encounter Summary ---
Demographics + + + | Address | [address] | | | [place] [address] | + + + | Home Phone [...] Team Providers + +------+ + | Care Frozen Food Selector Name | Role | Phone | + [...] | | | | severity, | [place] [address] | [address] Phone: | | | | | uncomplicate | Phone: | [phone] | | | | | d | [phone] | Fax: | | | | | Non-seasonal | Fax: | [phone] | | | | | allergic | [phone] | | | | | | rhinitis [...] | +--------+ + + + + | 05/28/ | Clinical | [facility] [place] | Henok Luther MD | Non-seasonal | | 2017 | Support | OTOLARYNGOLOGY [address] | [address] | allergic rhinitis | | | | [address] | [address] [place] | due to pollen | | | | [place], [place] | [address] | (Primary Dx); | | | | [address] | | Allergic rhinitis | | | | [phone] | | due to animal (cat) | [...] encounter Progress Notes Narda Lay RN - 05/28/2016 4:05 PM PDTFormatting of this note might be [...] Mixed immunotherapy treatment vial for patient on 05/28/16. TREATMENT SET July Forte Weeds & Grass: 86 05/28/2016 Allergen Extract Amount/ml Dilution Lot # Expiration Date Ragweed Mix Pigweed 0.2 C 685149 12/31/18 Kochia 0.2 C 441119 12/31/18 Humphrey's Quarter 0.2 C 251191 12/31/18 Luther Elder 0.2 C 774010 03/10/19 Slovak Plantain 0.2 C 883785 09/18/18 False Ragweed 0.2 C 208454 03/18/19 [place] Thistle 0.2 C 377176 03/18/19 Sagebrush 0.2 C 429877 11/20/18 Sheep [employer] Dandelion 0.2 C 746106 12/31/18 Atriplex Mix 0.2 C 639491 03/18/19 #7 Grass Mix 0.2 C 817965 12/09/17 Bermuda Grass 0.2 C [id number] 09/28/19 Sameer Grass 0.2 C 914562 11/20/18 [place] 0.2 C 5572120 02/05/19 Total Allergens: 2.8 ml. Saline: 0.2 ml. Total Volume: 3.0 ml. documented in this e ncounter Plan of [...] [place] | | | | | | [address] | | | | | | | | +--------+ + + + + | 01/17/ | Office | Vascular Surgery | Bill Arevalo DNP | | | 2019 | Visit | | [address] | | | | | | [place] | | | | | | [address] | | | | | | | | +--------+ + + + + | 05/22/ | Office | Nephrology | Mariana Cortez, | | | 2020 | Visit | | [address] | | | | | | [address] [place] | | | | | | [place] [address] | | | | | | [phone] | | | | | | | [...]
--- OUTSIDE RECORDS SUMMARY | ~2019-11-09 | XMS | Encounter Summary ---
Demographics + + + | Address | [address] | | | [place] [address] | + + + | Home Phone | | + + + | Preferred Language | Unknown | + + + | Marital Status | Single | + + + | Amish Affiliation | Unknown | + + + [...] Team Providers + +------+ + | Care Side Door Worker Name | Role | Phone | [...] [address] [place] | | | | | [place], [place] | [place] [address] | | | | | [address] | [phone] | | | | | [phone] | | | +--------+ + + + [...] [place] | | | | | | [address] | | | | | | | | +--------+ + + + + | 01/17/ | Office | Vascular Surgery | Bill Arevalo DNP | | | 2019 | Visit | | [address] | | | | | | [place] | | | | | | [address] | | | | | | | | +--------+ + + + + | 05/22/ | Office | Nephrology | Mariana Cortez, | | | 2020 | Visit | | MD [address] | | | | | | [address] [place] | | | | | | [place] [address] | | | | | | [phone] | | | | | | | | +--------+ + + + + documented as of this encounter Procedures + +--------+ + + + | Procedure Name | Priori | Date/Time | Associated Diagnosis | Comments | | | ty | | | | + +--------+ + + + | EXTERNAL LAB: EGFR | Routin | 10/06/2012 | | Results for this | | | e | | | procedure are in the | | | | | | results section. | + +--------+ + + + | EXTERNAL LAB: | Routin | 10/06/2012 | | Results for this | | CREATININE | e | | | procedure are in the | | | | | | results section. | + +--------+ + + + | RENAL FUNCTION PANEL | Routin | 10/06/2012 | | Results for this | | | e | | | procedure are in the | | | | | | results section. | + +--------+ + + + documented in this encounter Results Renal Function Panel (10/06/2012) + +-------+ + + + | Component | Value | Ref Range | Performed | Pathologist | | | | | At | Signature | + +-------+ + + + | Na | 134 | mmol/L | [facility] | [facility] | | | [facility] | | + +-------+ + + + | K | 5.6 | mmol/L | [facility] | | | | | | [facility] | | | | | | [facility] | | + +-------+ + + + | Cl | 103 | mmol/L | [facility] | [facility] | [facility] | | | | | | [facility]ORY | | + +-------+ + + + | CO2 | 23 | mmol/L | [facility] | | | | | | [facility] | | | | [facility] - | | | | | | [facility]ORY | | + +-------+ + + + | Glucose | 110 | mg/dL | [facility] | | | | | | [facility] | | | | | [facility] - | | | | | | LAB[facility]ATORY | | + +-------+ + + + | BUN | 20 | mg/dL | [facility] | | | | | | [facility] | | | | [facility] - | | | | | | [facility]ATORY | | + +-------+ + + + | Albumin | 3.5 | 3.5 - 5.0 g/dL | [facility] | | | [facility] | [facility] | | | | [facility] - | | | | | | [facility]ATORY | | + +-------+ + + + | Calcium | 8.9 | mg/dL | [facility] | | | | | | [facility] | | | | [facility] - | | | | | | LAB[facility]ATORY | | + +-------+ + + + | Phosphorus | 4.7 | 2.3 - 4.8 mg/dL | [facility] | | | | | [facility] | | | | | [facility] - | | | | | | LAB[facility]ATORY | | + +-------+ + + + | PTH INTACT | 7.53 | pg/mL | [facility] | | | | | [...] + | [facility] | [address] | [place] | [phone] | | [facility] | | [address] | | | - LABORATORY | | | | + + + + + | [facility] | [address] | [place], [place] | | | [facility] | | [address] | | | - LABORATORY | | | | + + + + + External Lab: eGFR (10/06/2012) + +-------+ + + + | Component | Value | Ref Range | Performed | Pathologist | | | | | At | Signature | + +-------+ + + + | eGFR, | 60 | | EXTERNAL | | [...] + +---------+ + + External Lab: Creatinine (10/06/2012) + +-------+ + + + | Component | Value | Ref Range | Performed | Pathologist | | | | | At | Signature | + +-------+ + + + | Creatinine, | 0.91 | 0.5 - 1.5 | EXTERNAL | | | External | [...]
--- OUTSIDE RECORDS SUMMARY | ~2019-11-09 | XMS | Encounter Summary ---
Demographics + + + | Address | [address] | | | [place] [address] | + + + | Home Phone [...] Team Providers + +------+ + | Care Master [place]al [place] Name | Role | Phone | + +------+ + PCP | Unavailable | + +------+ + Encounter Details +--------+ + + + + | Date | Type | Department | Care Team | Description | +--------+ + + + + | 07/20/ | Abstract | [facility] [place] | Mariana Cortez W, | | | 2014 | | NEPHROLOGY [address] | MD [address] | | | | | [address] | [address] [place] | | | | | [place], [place] | [place] [address] | | | | | [address] | [phone] | | | | | [phone] | | | +--------+ + + + [...] [place] | | | | | | [address] | | | | | | | | +--------+ + + + + | 01/17/ | Office | Vascular Surgery | Bill Arevalo DNP | | | 2019 | Visit | | [address] | | | | | | [place] | | | | | | [address] | | | | | | | | +--------+ + + + + | 05/22/ | Office | Nephrology | Mariana Cortez W, | | | 2020 | Visit | | [address] | | | | | | [address] [place] | | | | | | [place] [address] | | | | | | [phone] | | | | | | | | +--------+ + + + + documented as of this encounter Procedures + +--------+ + + + | Procedure Name | Priori | Date/Time | Associated Diagnosis | Comments | | | ty | | | | + +--------+ + + + | EXTERNAL LAB: | Routin | 07/20/2014 | | Results for this | | URINALYSIS | e | | | procedure are in the | | | | | | results section. | + +--------+ + + + | CULTURE, URINE | Routin | 07/20/2014 | | Results for this | | | e | | | procedure are in the | | | | | | results section. | + +--------+ + + + documented in this encounter Results Culture, Urine (07/20/2014) + + + + + + | Component | Value | Ref Range | Performed | Pathologist | | | | | At | Signature | + + + + + + | UA COMMENT | Comment: microscopic | | | | | | shows urogenital | | | | | | contamination | | | | + + + + + + + + | Specimen | + + | Urine specimen | | (specimen) | + + External Lab: Urinalysis (07/20/2014) + + + + + + | Component | Value | Ref Range | Performed | Pathologist | | | | | At | Signature | + + + + + + | UA Blood, | negative | | EXTERNAL | | | External | | | LAB | | + + + + + + | UA Glucose, | 50 | 0 | EXTERNAL | | | External | | | LAB | | + + + + + + | UA Ketones, | negative | | EXTERNAL | | | External | | | LAB | | + + + + + + | UA Ph, | 6 | 5 - 9 | EXTERNAL | | | External | | | LAB | | + + + + + + | UA | 30 (A) | 0 - 0 | EXTERNAL | | | Proteins, | | | LAB | | | External | | | | | + + + + + + | UA RBC, | 2 | 0 - 4 | EXTERNAL | | | External | | | LAB | | + + + + + + | UA Specific | 1.004 (A) | 1.005 - 1.03 | EXTERNAL | | | Hannah, | | | LAB | | | External | | | | | + + + + + + | UA | 2+ (A) | 0 - 0 | EXTERNAL | | | Leukocyte | [...]
--- OUTSIDE RECORDS SUMMARY | ~2019-11-09 | XMS | Encounter Summary ---
Demographics + + + | Address | [address] | | | [place] [address] | + + + | Home Phone [...] Author + + + | Author | [facility] | | | and [place] | + + + | Organization | [facility] | | [...] Team Providers + +------+ + | Care Mud Cleaner Operator Name | Role | Phone | [...] | | | rhinitis due | [place] [address] | [address] Phone: | | | | | to animal | Phone: | [phone] | | | | | (cat) (dog) | [phone] | Fax: | | | | | hair and | Fax: | [phone] | | | | | dander | [phone] | | | | | | Allergic [...] | +--------+ + + + + | 10/23/ | Clinical | [facility] [place] | [facility], | Allergic rhinitis | | 2016 | Support | OTOLARYNGOLOGY [address] | [address] | due to pollen | | | | [address] | [address] | (Primary Dx); | | | | [place], [place] | [place] | Allergic rhinitis | | | | [address] | [address] | due to animal (cat) | | | | [phone] | | (dog) hair and | | | | | | dander; Allergic | | | | | | rhinitis due to dust | | | | | | mite; Unspecified | | | | | | asthma(476.90) | +--------+ + + + + Social [...] encounter Progress Notes Modesta Benitez RN - 10/24/2015 8:17 AM PDTPatient needed to leave without arm jordyn ck because of an emergent situation. She does have her inhaler and ep-ipen with her.Electron ashtyn signed by Modesta Benitez RN at 10/24/2015 8:28 AM PDTdocumented in this enco unter Plan of Treatment +--------+ + + + + | Date | Type | Specialty | Care Team | Description | +--------+ + + + + | 01/17/ | Appointment | Radiology | Bill Arevalo DNP | | | 2019 | | | [address] | | | | | | [place] | | | | | | [address] | | | | | | | | +--------+ + + + + | 01/17/ | Office | Vascular Surgery | Bill Arevalo DNP | | | 2019 | Visit | | [address] | | | | | | [place] | | | | | | [address] | | | | | | | | +--------+ + + + + | 05/22/ | Office | Nephrology | Mariana Cortez, | | | 2020 | Visit | | [address] | | | | | | [address] [place] | | | | | | [place] [address] | | | | | | [phone] | | | | | | | | +--------+ + + + + documented as of this encounter Visit Diagnoses + + | Diagnosis | + + | Allergic rhinitis due to pollen - Primary | + + | Allergic rhinitis due to animal (cat) (dog) hair and dander | + + | Allergic rhinitis due to dust mite | + + | Unspecified asthma(493.90) Unspecified asthma | + + documented in this encounter"
--- OUTSIDE RECORDS SUMMARY | ~2019-11-09 | XMS | Encounter Summary ---
Demographics + + + | Address | [address] | | | [place] [address] | + + + | Home Phone [...] Team Providers + +------+ + | Care Tip Puncher Name | Role | Phone | + [...] | | | rhinitis due | [place] [address] | [address] Phone: | | | | | to animal | Phone: | [phone] | | | | | (cat) (dog) | [phone] | Fax: | | | | | hair and | Fax: | [phone] | | | | | dander | [phone] | | | | | | Allergic [...] | +--------+ + + + + | 09/09/ | Clinical | [facility] [place] | Henok Luther MD | Allergic rhinitis | | 2016 | Support | OTOLARYNGOLOGY [address] | [address] | due to pollen | | | | [address] | [address] [place] | (Primary Dx); | | | | [place] | [address] | Allergic rhinitis | | | | [address] | | due to animal (cat) | | | | [phone] | | (dog) hair and | | [...] encounter Progress Notes Modesta Benitez RN - 09/10/2015 4:15 PM PDTPatient presents with epi-pen & inhaler . No active wheezing or cough associated with asthma today. Denies delayed reaction from pre vious allergy injection. No fever or allergy related rash. No recent heavy exposure to aller gens. No plans for strenuous exercise immediately before or after injection today.Electronic ally signed by Modesta Benitez RN at 09/10/2015 4:52 PM PDTdocumented in this encoun ter Plan [...] [place] | | | | | | [id number] | | | | | | | | +--------+ + + + + | 01/17/ | Office | Vascular Surgery | Bill Arevalo DNP | | | 2019 | Visit | | [address] | | | | | | [place] | | | | | | [address] | | | | | | | | +--------+ + + + + | 05/22/ | Office | Nephrology | Mariana Cortez, | | | 2020 | Visit | | [address] | | | | | | [address] [place] | | | | | | [place] [address] | | | | | | [phone] | | | | | | | [...]
--- OUTSIDE RECORDS SUMMARY | ~2019-11-09 | XMS | Encounter Summary ---
Demographics + + + | Address | [address] | | | [place] [address] | + + + | Home Phone [...] Providers + +------+ + | Care Clinical Laboratory Aide Name | Role | Phone | [...] | | | rhinitis due | [place] [address] | [address] Phone: | | | | | to animal | Phone: | [phone] | | | | | (cat) (dog) | [phone] | Fax: | | | | | hair and | Fax: | [phone] | | | | | dander | [phone] | | | | | | Allergic [...] | +--------+ + + + + | 05/27/ | Clinical | [facility] [place] | Henok Luther MD | Allergic rhinitis | | 2016 | Support | OTOLARYNGOLOGY [address] | [address] | due to pollen | | | | [address] | [address] [place] | (Primary Dx); | | | | [place] | [address] | Allergic rhinitis | | | | [address] | | due to animal (cat) | | | | [phone] | | (dog) hair and | | [...] encounter Progress Notes Modesta Benitez RN - 05/28/2015 3:29 PM PDTPatient presents with epi-pen & inhaler . No active wheezing or cough associated with asthma today. Denies delayed reaction from pre vious allergy injection. No fever or allergy related rash. No recent heavy exposure to aller gens. No plans for strenuous exercise immediately before or after injection today.Electronic ally signed by Modesta Benitez RN at 05/28/2015 4:09 PM PDTdocumented in this encoun ter Plan [...] [place] | | | | | | [id number] | | | | | | | | +--------+ + + + + | 01/17/ | Office | Vascular Surgery | Bill Arevalo DNP | | | 2019 | Visit | | [address] | | | | | | [place] | | | | | | [address] | | | | | | | | +--------+ + + + + | 05/22/ | Office | Nephrology | Mariana Cortez, | | | 2020 | Visit | | [address] | | | | | | [address] [place] | | | | | | [place] [address] | | | | | | [phone] | | | | | | | [...]
--- OUTSIDE RECORDS SUMMARY | ~2019-11-09 | XMS | Encounter Summary ---
Demographics + + + | Address | [address] | | | [place] [address] | + + + | Home Phone | | + + + | Preferred Language | Unknown | + + + | Marital Status | Single | + + + | Islam Affiliation | Unknown | + + + [...] Team Providers + +------+ + | Care Government Program Manager Name | Role | Phone | [...] Otolaryngolog | Diagnoses | Luther, | Henok uLther | | | Services | y | [...] | | | rhinitis due | [place] [address] | [address] Phone: | | | | | to animal | Phone: | [phone] | | | | | (cat) (dog) | [phone] | Fax: | | | | | hair and | Fax: | [phone] | | | | | dander | [phone] | | | | | | Allergic | | | | | | | rhinitis due | | | | | | | to dust | | | | | | | Procedures | | | | | | | CA | | | | | | | IMMUNOTHERAP | | | | | | | Y, ONE | | | | | | | INJECTION | | | | | | | CA | | | | | | | IMMUNOTHERAP | | | | | | | Y, 2+ | | | | | | | INJECTIONS | | | | | | | CA PROFES | | | | | | | SVC,IMMUNOTH | | | | | | | ER,SINGLE/MU | | | | | | | LT AGS | | | +--------+ + + + + + Encounter Details +--------+ + + + + | Date | Type | Department | Care Team | Description | +--------+ + + + + | 11/27/ | Clinical | [facility] [place] | Henok Luther MD | Asthmatic | | 2016 | Support | OTOLARYNGOLOGY [address] | [address] | bronchitis, | | | | [address] | [address] [place] | unspecified asthma | | | | [place], [place] | [address] | severity, | | | | [address] | | uncomplicated | | | | [phone] | | (Primary Dx); | | | [...] encounter Progress Notes Modesta Benitez RN - 11/28/2015 1:26 PM PDTFormatting of this note might be differ ent from the original. Patient presents with epi-pen & inhaler. No active wheezing or cough associated with asthma today. Denies delayed reaction from previous allergy injection. No fever or allergy related rash. No recent heavy exposure to allergens. No plans for strenuous exercise immediately be fore or after injection today. Mixed two immunotherapy treatment vials for patient on 11/21/15. TREATMENT SET July Forte Weeds & Grass: 86 11/28/2015 Allergen Extract Amount/ml Dilution Lot # Expiration Date Ragweed Mix 0.2 C 195404 12/30/17 Pigweed 0.2 C 341525 01/20/18 Kochia 0.2 C 819365 07/17/18 Humphrey's Quarter 0.2 C 774859 03/19/18 Luther Elder 0.2 C 986333 05/19/18 Citizen [place] Plantain 0.2 C 963011 05/19/18 False Ragweed 0.2 C 061403 09/18/18 Spanish Thistle 0.2 1 661268 03/19/18 Sagebrush 0.2 1 369619 07/07/18 Sheep Hoot Owl Dandelion 0.2 C 440263 01/20/18 Atriplex Mix 0.2 1 854869 09/18/18 #7 Grass Mix 0.2 1 243224 11/27/16 Bermuda Grass 0.2 C [id number] 03/16/19 Sameer Grass 0.2 C 032036 03/19/18 [place] 0.2 C 483586 09/18/18 Total Allergens: 2.8 ml. Saline: 0.2 ml. Total Volume: 3.0 ml. TREATMENT SET July Forte TREES, DUST, EPIDERMAL: 87 11/28/2015 Allergen Extract Amount/mL Dilution Lot # Expiration Date Melstone Mix [place] 0.2 C 446971 03/19/18 Sugar Maple [place] 0.2 C 147182 04/09/18 Chase 0.2 C 827287 05/19/18 Spring Birch White Tae [place] 0.2 C 881483 05/19/18 Juniper 0.2 C 517433 09/18/18 Black [place] 0.2 C 986752 03/19/18 Spanish [place] 0.2 C 712289 09/18/18 Mites, Farinae 0.1 1 009853 09/23/17 Mites, Ptero. 0.1 1 936178 02/03/18 Cat Hair 0.1 C 157429 11/11/17 Dog Epi. Horse Epi Total Allergens : 1.7 ml. Saline: 0.8 ml. Total Volume: 2.5 ml. documented in this encounter Plan [...] [place] | | | | | | [id number] | | | | | | | | +--------+ + + + + | 01/17/ | Office | Vascular Surgery | Bill Arevalo DNP | | | 2019 | Visit | | [address] | | | | | | [place] | | | | | | [address] | | | | | | | | +--------+ + + + + | 05/22/ | Office | Nephrology | Mariana Cortez, | | | 2020 | Visit | | [address] | | | | | | [address] | | | | | | [place] [address] | | | | | | [phone] | | | | | | | [...]
--- OUTSIDE RECORDS SUMMARY | ~2019-11-09 | XMS | Encounter Summary ---
Demographics + + + | Address | [address] | | | [place] [address] | + + + | Home Phone [...] Team Providers + +------+ + | Care Matrix Bath Attendant Name | Role | Phone | + +------+ + | Mehrdad Avalos MD | PCP | | + +------+ + Encounter Details +--------+ + + + + | Date | Type | Department | Care Team | Description | +--------+ + + + + | 08/03/ | Orders Only | [facility] | Louie Henry, | Osteomyelitis of | | 2019 | | INFECTIOUS DISEASE | Carmine Kebede MD | fifth toe of right | | | | [address] | [address] | foot (HCC) (Primary | | | | [place], [place] | [place] [address] | Dx) | | | | [address] | [phone] | | | | | [phone] | | | +--------+ + + + [...] [place] | | | | | | [id number] | | | | | | | | +--------+ + + + + | 01/17/ | Office | Vascular Surgery | Bill Arevalo DNP | | | 2019 | Visit | | [address] | | | | | | [place] | | | | | | [address] | | | | | | | | +--------+ + + + + | 05/22/ | Office | Nephrology | Mariana Cortez, | | | 2020 | Visit | | [address] | | | | | | [address] [place] | | | | | | [place] [address] | | | | | | [phone] | | | | | | | | +--------+ + + + + documented as of this encounter Visit Diagnoses + + | Diagnosis | + + | Osteomyelitis of fifth toe of right foot (HCC) - Primary | + + documented in this encounter Additional Health Concerns + + + + + | Infection | Onset Date | Last Indicated | Resolved Time | + + + + + | Rule out COVID-19 | 08/17/2019 | 08/17/2019 | 08/17/2019 7:21 PM | | | | | PDT | + + + + + documented as of this encounter"
--- OUTSIDE RECORDS SUMMARY | ~2019-11-09 | XMS | Encounter Summary ---
Demographics + + + | Address | [address] | | | [place] [address] | + + + | Home Phone | | + + + | Preferred Language | Unknown | + + + | Marital Status | Single | + + + | Rastafari Affiliation | Unknown | + + + [...] Team Providers + +------+ + | Care Executive Vice President And Chief Operating Officer Name | Role | Phone | + +------+ + | Ronel Jacobson PA-C | PCP | | + +------+ + Encounter Details +--------+ + + + + | Date | Type | Department | Care Team | Description | +--------+ + + + + | 12/08/ | Abstract | [facility] | Mariana Cortez W, | | | 2017 | | NEPHROLOGY [address] | [address] | | | | | [address] | [address] [place] | | | | | [place], [place] | [place] [address] | | | | | [address] | [phone] | | | | | [phone] | | | +--------+ + + + [...] [place] | | | | | | [address] | | | | | | | | +--------+ + + + + | 01/17/ | Office | Vascular Surgery | Bill Arevalo DNP | | | 2019 | Visit | | [address] | | | | | | [place] | | | | | | [address] | | | | | | | | +--------+ + + + + | 05/22/ | Office | Nephrology | Mariana Cortez | | | 2020 | Visit | | [address] | | | | | | [address] [place] | | | | | | [place] [address] | | | | | | [phone] | | | | | | | | +--------+ + + + + documented as of this encounter Procedures + +--------+ + + + | Procedure Name | Priori | Date/Time | Associated Diagnosis | Comments | | | ty | | | | + +--------+ + + + | EXTERNAL LAB: LEVI | Routin | 12/03/2017 | | Results for this | | | e | | | procedure are in the | | | | | | results section. | + +--------+ + + + | EXTERNAL LAB: | Routin | 12/03/2017 | | Results for this | | GLUCOSE | e | | | procedure are in the | | | | | | results section. | + +--------+ + + + | EXTERNAL LAB: ALT | Routin | 12/03/2017 | | Results for this | | | e | | | procedure are in the | | | | | | results section. | + +--------+ + + + | EXTERNAL LAB: AST | Routin | 12/03/2017 | | Results for this | | | e | | | procedure are in the | | | | | | results section. | + +--------+ + + + | EXTERNAL LAB: | Routin | 12/03/2017 | | Results for this | | ALKALINE PHOSPHATASE | e | | | procedure are in the | | | | | | results section. | + +--------+ + + + | EXTERNAL LAB: | Routin | 12/03/2017 | | Results for this | | BILIRUBIN, TOTAL | e | | | procedure are in the | | | | | | results section. | + +--------+ + + + | EXTERNAL LAB: | Routin | 12/03/2017 | | Results for this | | ALBUMIN | e | | | procedure are in the | | | | | | results section. | + +--------+ + + + | EXTERNAL LAB: | Routin | 12/03/2017 | | Results for this | | PROTEIN, TOTAL | e | | | procedure are in the | | | | | | results section. | + +--------+ + + + | EXTERNAL LAB: | Routin | 12/03/2017 | | Results for this | | CALCIUM | e | | | procedure are in the | | | | | | results section. | + +--------+ + + + | EXTERNAL LAB: CARBON | Routin | 12/03/2017 | | Results for this | | DIOXIDE | e | | | procedure are in the | | | | | | results section. | + +--------+ + + + | EXTERNAL LAB: | Routin | 12/03/2017 | | Results for this | | CHLORIDE | e | | | procedure are in the | | | | | | results section. | + +--------+ + + + | EXTERNAL LAB: | Routin | 12/03/2017 | | Results for this | | POTASSIUM | e | | | procedure are in the | | | | | | results section. | + +--------+ + + + | EXTERNAL LAB: SODIUM | Routin | 12/03/2017 | | Results for this | | | e | | | procedure are in the | | | | | | results section. | + +--------+ + + + | EXTERNAL LAB: | Routin | 12/03/2017 | | Results for this | | FERRITIN | e | | | procedure are in the | | | | | | results section. | + +--------+ + + + | EXTERNAL LAB: CBC | Routin | 12/03/2017 | | Results for this | | | e | | | procedure are in the | | | | | | results section. | + +--------+ + + + | EXTERNAL LAB: TSH | Routin | 12/03/2017 | | Results for this | | | e | | | procedure are in the | | | | | | results section. | + +--------+ + + + | EXTERNAL LAB: | Routin | 12/03/2017 | | Results for this | | TRIGLYCERIDES | e | | | procedure are in the | | | | | | results section. | + +--------+ + + + | EXTERNAL LAB: | Routin | 12/03/2017 | | Results for this | | CHOLESTEROL, HDL | e | | | procedure are in the | | | | | | results section. | + +--------+ + + + | EXTERNAL LAB: | Routin | 12/03/2017 | | Results for this | | CHOLESTEROL, TOTAL | e | | | procedure are in the | | | | | | results section. | + +--------+ + + + | EXTERNAL LAB: | Routin | 12/03/2017 | | Results for this | | CHOLESTEROL, LDL | e | | | procedure are in the | | | | | | results section. | + +--------+ + + + | EXTERNAL LAB: | Routin | 12/03/2017 | | Results for this | | MICROALBUMIN/CREATIN | e | | | procedure are in the | | INE RATIO, URINE | | | | results section. | + +--------+ + + + | EXTERNAL LAB: EGFR | Routin | 12/03/2017 | | Results for this | | | e | | | procedure are in the | | | | | | results section. | + +--------+ + + + | EXTERNAL LAB: | Routin | 12/03/2017 | | Results for this | | CREATININE | e | | | procedure are in the | | | | | | results section. | + +--------+ + + + documented in this encounter Results External Lab: BUN (12/03/2017) + +--------+ + + + | Component | Value | Ref Range | Performed | Pathologist | | | | | At | Signature | + +--------+ + + + | BUN, | 53 (A) | 6 - 23 | | | | External | | | | | + +--------+ + + + External Lab: Glucose (12/03/2017) + +---------+ + + + | Component | Value | Ref Range | Performed | Pathologist | | | | | At | Signature | + +---------+ + + + | Glucose, | 344 (A) | 70 - 100 | | | | External | | | | | + +---------+ + + + External Lab: ALT (12/03/2017) + +-------+ + + + | Component | Value | Ref Range | Performed | Pathologist | | | | | At | Signature | + +-------+ + + + | ALT, | 13 | 0 - 41 | | | | External | | | | | + +-------+ + + + External Lab: AST (12/03/2017) + +-------+ + + + | Component | Value | Ref Range | Performed | Pathologist | | | | | At | Signature | + +-------+ + + + | AST, | 13 | 0 - 40 | | | | External | | | | | + +-------+ + + + External Lab: Alkaline Phosphatase (12/03/2017) + +-------+ + + + | Component | Value | Ref Range | Performed | Pathologist | | | | | At | Signature | + +-------+ + + + | ALP, | 95 | 40 - 129 | | | | External | | | | | + +-------+ + + + External Lab: Bilirubin, Total (12/03/2017) + +-------+ + + + | Component | Value | Ref Range | Performed | Pathologist | | | | | At | Signature | + +-------+ + + + | Bilirubin, | 0.3 | 0.1 - 1.5 | | | | Total, | | | | | | External | | | | | + +-------+ + + + External Lab: Albumin (12/03/2017) + +-------+ + + + | Component | Value | Ref Range | Performed | Pathologist | | | | | At | Signature | + +-------+ + + + | Albumin, | 3.9 | 3.5 - 5.2 | | | | External | | | | | + +-------+ + + + External Lab: Protein, Total (12/03/2017) + +-------+ + + + | Component | Value | Ref Range | Performed | Pathologist | | | | | At | Signature | + +-------+ + + + | Protein, | 7.3 | 6 - 8 | | | | Total, | | | | | | External | | | | | + +-------+ + + + External Lab: Calcium (12/03/2017) + +-------+ + + + | Component | Value | Ref Range | Performed | Pathologist | | | | | At | Signature | + +-------+ + + + | Calcium, | 9.5 | 8.4 - 10.2 | | | | External | | | | | + +-------+ + + + External Lab: Carbon Dioxide (12/03/2017) + +-------+ + + + | Component | Value | Ref Range | Performed | Pathologist | | | | | At | Signature | + +-------+ + + + | Carbon | 27 | 23 - 32 | | | | Dioxide, | | | | | | External | | | | | + +-------+ + + + External Lab: Chloride (12/03/2017) + +--------+ + + + | Component | Value | Ref Range | Performed | Pathologist | | | | | At | Signature | + +--------+ + + + | Chloride, | 93 (A) | 100 - 110 | | | | External | | | | | + +--------+ + + + External Lab: Potassium (12/03/2017) + +-------+ + + + | Component | Value | Ref Range | Performed | Pathologist | | | | | At | Signature | + +-------+ + + + | Potassium, | 5.0 | 3.5 - 5.1 | | | | External | | | | | + +-------+ + + + External Lab: Sodium (12/03/2017) + +-------+ + + + | Component | Value | Ref Range | Performed | Pathologist | | | | | At | Signature | + +-------+ + + + | Sodium, | 135 | 135 - 145 | | | | External | | | | | + +-------+ + + + External Lab: Ferritin (12/03/2017) + +-------+ + + + | Component | Value | Ref Range | Performed | Pathologist | | | | | At | Signature | + +-------+ + + + | Ferritin, | 19 | 6 - 170 | | | | External | | | | | + +-------+ + + + External Lab: CBC (12/03/2017) + + + + + + | Component | Value | Ref Range | Performed | Pathologist | | | | | At | Signature | + + + + + + | WBC, | 7.91 | 4 - 11 | | | | External | | | | | + + + + + + | HGB, | 10.9 (A) | 12 - 16 | | | | External | | | | | + + + + + + | HCT, | 32.15 (A) | 35 - 45 | | | | External | | | | | + + + + + + | PLT, | 304 | 140 - 440 | | | | External | | | | | + + + + + + | RBC, | 3.4 (A) | 4 - 6 | | | | External | | | | | + + + + + + | MCV, | 95 | 80 - 100 | | | | External | | | | | + + + + + + | RDW, | 14.36 | 10.5 - 15 | | | | External | | | | | + + + + + + External Lab: Triglycerides (12/03/2017) + +---------+ + + + | Component | Value | Ref Range | Performed | Pathologist | | | | | At | Signature | + +---------+ + + + | Triglycerid | 365 (A) | 150 | | | | es, | | | | | | External | | | | | + +---------+ + + + + + | Specimen | + + | Blood | + + External Lab: Cholesterol, HDL (12/03/2017) + +-------+ + + + | Component | Value | Ref Range | Performed | Pathologist | | | | | At | Signature | + +-------+ + + + | HDL | 49 | 40 mg/dl | | | | Cholesterol | | | | | | , External | | | | | + +-------+ + + + + + | Specimen | + + | Blood | + + External Lab: Cholesterol, Total (12/03/2017) + +-------+ + + + | Component | Value | Ref Range | Performed | Pathologist | | | | | At | Signature | + +-------+ + + + | Cholesterol | 191 | 200 mg/dl | | | | , Total, | | | | | | External | | | | | + +-------+ + + + + + | Specimen | + + | Blood | + + External Lab: Cholesterol, LDL (12/03/2017) + +-------+ + + + | Component | Value | Ref Range | Performed | Pathologist | | | | | At | Signature | + +-------+ + + + | LDL | 68.3 | 100 | | | | Cholesterol | | | | | | , Direct, | | | | | | External | | | | | + +-------+ + + + + + | Specimen | + + | Blood | + + External Lab: Microalbumin/Creatinine Ratio, Urine (12/03/2017) + + + + + + | Component | Value | Ref Range | Performed | Pathologist | | | | | At | Signature | + + + + + + | Microalbumi | 53.3 (A) | 0 - 18 | | | | n/Creatinin | | | | | | e Ratio, | | | | | | External | | | | | + + + + + + + + | Specimen | + + | Blood | + + External Lab: eGFR (12/03/2017) + +--------+ + + + | Component | Value | Ref Range | Performed | Pathologist | | | | | At | Signature | + +--------+ + + + | eGFR, | 22 (A) | 60 | | | | External | | | | | + +--------+ + + + + + | Specimen | + + | Blood | + + External Lab: Creatinine (12/03/2017) + +---------+ + + + | Component | Value | Ref Range | Performed | Pathologist | | | | | At | Signature | + +---------+ + + + | Creatinine, | 2.5 (A) | 0.6 - 1.3 | | | | External | | | | | + +---------+ + + + + + | Specimen | + + | Blood | + + External Lab: TSH (12/03/2017) + +-------+ + + + | Component | Value | Ref Range | Performed | Pathologist | | | | | At | Signature | + +-------+ + + + | TSH, | 0.85 | 0.45 - 5.1 | | | | External | | | | | + +-------+ + + + + + | Specimen | + + | Blood | + + documented in this encounter Visit Diagnoses Not on filedocumented in this encounter"
--- OUTSIDE RECORDS SUMMARY | ~2019-11-09 | XMS | Encounter Summary ---
Demographics + + + | Address | [address] | | | [place] [address] | + + + | Home Phone [...] Team Providers + +------+ + | Care Hot Stone Setter Name | Role | Phone | + [...] | | | | | (HCC) | [address] | | | | | | Procedures | Phone: | | | | | | VAS Lower | [phone] | | | | | | Extremity | Fax: | | | | | | Arteries | [phone] | | | | | | Right | | | +--------+--------+ + + + + Reason for Visit + + + | Reason | Comments | + + + | Follow-up | | + + + Encounter Details +--------+---------+ + + + | Date | Type | Department | Care Team | Description | +--------+---------+ + + + | 10/19/ | Office | [facility] | iBll Arevalo DNP | PAD (peripheral | | 2020 | Visit | VASCULAR SURGERY | [address] | artery disease) | | | | [address] | [place], [place] | (HCC) (Primary Dx) | | | | [place], [place] | [address] | | | | | [address] | | | | | | [phone] | | | +--------+---------+ + + + [...] + + + | Blood Pressure | 152/90 | 10/20/2019 10:15 AM | | | | | PDT | | + + + + + | Pulse | 103 | 10/20/2019 10:15 AM | | | | | PDT | | + + + + + | Temperature | 36.7 C (98 F) | 10/20/2019 10:15 AM | | | | | PDT | | + + + + + | Respiratory Rate | - | - | | + + + + + | Oxygen Saturation | 98% | 10/20/2019 10:15 AM | | | | | PDT | | + + + + + | Inhaled Oxygen | - | - | | | Concentration | | | | + + + + + | Weight | - | - | | + + + + + | Height | - | [...] documented as of this encounter Progress Notes Bill Arevalo DNP - 10/20/2019 9:30 AM [facility] [address] [place] [address] Office: [phone] DATE OF VISIT: 10/20/2019 PATIENT NAME: July Forte : 1970; AGE: 49 y.o.; Sex:F PHONE NUMBER: ; ; PROVIDER: Bill Arevalo DNP PRIMARY CARE / REFERRING PHYSICIAN: No ref. provider found / Mehrdad Avalos MD / [address] [facility] / [place] [address] REASON FOR EVALUATION / CHIEF COMPLAINT: Vascular Surgery Postoperative Visit for PAD The patient presents today for a Vascular Surgery Postoperative Visit. Due to non-healing r ight lateral foot wound, the patient is status post right proximal anterior tibial artery to dorsalis pedis artery bypass using RSVG, open harvest of right GSV, which was performed on 10/04/2019 at the [facility]. The patient's leg symptoms h ave gradually improved. Pain is controlled without any medications. The patient denies feve r, wound drainage, increasing redness, pus, increasing pain, increasing swelling. Physical examination revealed surgical incision which is healing well without signs of infection. She is taking aspirin and statin daily. She reports her blood sugar is better controlled. She f ollows up with her jewel hole cornerer Dr. Cespedes in [place]. VITAL SIGNS: BP 152/90 | Pulse 103 | Temp 36.7 C (98 F) (Temporal) | SpO2 98% PHYSICAL EXAM: Constitutional: Well nourished, no signs of distress Cardiovascular: Normal rate, regular rhythm. Pulmonary/Chest: No respiratory distress. No adventitious sounds. Abdominal: Soft. No abdominal distension or tenderness. Musculoskeletal: Normal range of motion. Extremities: No edema, cyanosis or clubbing. Open wounds in right lateral foot. Neurological: She is alert and oriented. VASCULAR: Palpable femoral pulses were present bilaterally. Dopplerable signals were prese nt in right dorsalis pedis and posterior tibial arteries. Right leg surgical incision wounds are healing well without signs of infection. IMAGIN10/20/2019 US RLE ART Triphasic waveforms throughout Patent bypass Nearing 2 fold velocity increase at prox and distal anastamosis, secondary to caliber cavanaugh e Avascular structure mid lateral calf near incision 6.5 x 1.9 x 0.9 cm Assessment & Plan: Peripheral arterial disease with status post right CORY to DPA bypass - The patient is doin g well. Half of the alejandro removed. Follow up with jewel hole cornerer for wound care. I've explaine d to the patient that in the event she experiences acute limb ischemia as evidenced by sever e pain or coldness or new lower leg wounds, the patient should contact me immediately to ret urn to my clinic or go to nearby emergency room right away. Follow up in 1 week for staple r emoval. Return to vascular clinic in 3 month(s) for further follow-up with arterial duplex u ltrasound for surveillance study. Hypertension - The patient is advised to maintain his antihypertensive medication to keep s ystolic blood pressure target level of 130-140 mm Hg and diastolic blood pressure level of 7 0-80 mm Hg. The patient is advised that uncontrolled hypertension can accelerate atheroscler otic disease progression. Dyslipidemia - The patient is advised to undergo lipid level evaluation with fasting blood test every 6 months with target LDL level of less than 70 mg/dL. The patient is advised to c ontinue taking antiplatelet daily for life to reduce the risk of myocardial infarction and p eripheral arterial disease ( She is currently on aspirin). Additionally, the patient is info rmed that hyperlipidemia can accelerate atherosclerotic disease progression and negatively a ffect the outcome of lower leg vascular interventions. Diabetic / blood glucose monitoring - The patient is advised to undergo serum glucose level evaluation to ensure that his HgB A1C is less than 7%. Patient is advised regarding the imp ortance of maintaining glucose level within appropriate range as hyperglycemiacan accelerate atherosclerotic disease progression and negatively affect the outcome of vascular intervent ion. Bill Arevalo DNP documented in this encounte r Plan of Treatment +--------+ + + + + | Date | Type | Specialty | Care Team | Description | +--------+ + + + + | 01/17/ | Appointment | Radiology | Bill Arevalo DNP | | | 2019 | | | [address] | | | | | | [place] | | | | | | [address] | | | | | | | | +--------+ + + + + | 01/17/ | Office | Vascular Surgery | Bill Arevalo DNP | | | 2019 | Visit | | [address] | | | | | | [place] | | | | | | [address] | | | | | | | | +--------+ + + + + | 05/22/ | Office | Nephrology | Mariana Cortez, | | | 2020 | Visit | | [address] | | | | | | [address] [place] | | | | | | [place] [address] | | | | | | [phone] | | | | | | | | +--------+ + + + + + +---------+--------+ + + | Name | Type | Priori | Associated Diagnoses | Order Schedule | | | | ty | | | + +---------+--------+ + + | VAS Lower Extremity | Imaging | Routin | PAD (peripheral | Expected: 10/20/2019 | | Arteries Right | | e | artery disease) | (Approximate), | | | | | (HCC) | Expires: 10/19/2020 | + +---------+--------+ + + documented as of this encounter Visit Diagnoses + + | Diagnosis | + + | PAD (peripheral artery disease) (HCC) - Primary Unspecified disorders of arteries and | | arterioles | + + documented in this encounter"
--- OUTSIDE RECORDS SUMMARY | ~2019-11-09 | XMS | Encounter Summary ---
Demographics + + + | Address | [address] | | | [place] [address] | + + + | Home Phone [...] Team Providers + +------+ + | Care Procurement Engineer Name | Role | Phone | [...] | +--------+ + + + + | 01/29/ | Clinical | [facility] | Henok Luther MD | Seasonal allergic | | 2017 | Support | OTOLARYNGOLOGY [address] | [address] [place] [address] [address] | rhinitis due to | | | | [address] | [address] [place], [place] | pollen, unspecified | | | | [place], [place] | [address] | chronicity (Primary | | | | [address] | | Dx); Chronic | | | | [phone] | | allergic rhinitis | | | | | | due to animal hair | | | | | | and dander; Allergic | | | | | | rhinitis due to | | | | | | dust mite; Mild | | | | | | intermittent | | | | | | extrinsic asthma | | | | | | without complication | +--------+ + + + + Social [...] encounter Progress Notes Modesta Benitez RN - 01/29/2017 3:45 PM PSTPatient presents with epi-pen & inhaler . No active wheezing or cough associated with asthma today. Denies delayed reaction from pre vious allergy injection. No fever or allergy related rash. No recent heavy exposure to aller gens. No plans for strenuous exercise immediately before or after injection today.Electronic ally signed by Modesta Benitez RN at 01/29/2017 4:00 PM PSTdocumented in this encoun ter Plan [...] [place] | | | | | | [address] | | | | | | | | +--------+ + + + + | 01/17/ | Office | Vascular Surgery | Bill Arevalo DNP | | | 2019 | Visit | | [address] | | | | | | [place] | | | | | | [address] | | | | | | | | +--------+ + + + + | 05/22/ | Office | Nephrology | Mariana Cortez, | | | 2020 | Visit | | [address] | | | | | | [address] [place] | | | | | | [place] [address] | | | | | | [phone] | | | | | | | | +--------+ + + + + documented as of this encounter Visit Diagnoses + + | Diagnosis | + + | Seasonal allergic rhinitis due to pollen, unspecified chronicity - Primary | + + | Chronic allergic rhinitis due to animal hair and dander | + + | Allergic rhinitis due to dust mite | + + | Mild intermittent extrinsic asthma without complication | + + documented in this encounter"
--- OUTSIDE RECORDS SUMMARY | ~2019-11-09 | XMS | Encounter Summary ---
Demographics + + + | Address | [address] | | | [place] [address] | + + + | Home Phone | | + + + | Preferred Language | Unknown | + + + | Marital Status | Single | + + + | Jehovah'S Witness Affiliation | Unknown | + + + [...] Team Providers + +------+ + | Care Respiratory Care Faculty Name | Role | Phone | + [...] Services | y | Asthmatic | Henok E, | MD [address] | | | Required | | bronchitis, | [address] | | | | | unspecified | [address] | [address] [place] | | | | | asthma | [place], | [place], [place] | | | | | severity, | [place] [address] | [address] Phone: | | | | | uncomplicate | Phone: | [phone] | | | | | d | [phone] | Fax: | | | | | Non-seasonal | Fax: | [phone] | | | | | allergic | [phone] | | | | | | rhinitis [...] | +--------+ + + + + | 01/09/ | Orders Only | [facility] [place] | Henok Luther MD | Asthmatic | | 2016 | | OTOLARYNGOLOGY [address] | [address] | bronchitis, | | | | [address] | [address] [place] [facility], [place] | unspecified asthma | | | | [place] | [address] | severity, | | | | [address] | | uncomplicated | | | | [phone] | | (Primary Dx); | | | [...] [place] | | | | | | [address] | | | | | | | | +--------+ + + + + | 01/17/ | Office | Vascular Surgery | Bill Arevalo DNP | | | 2019 | Visit | | [address] | | | | | | [place] | | | | | | [address] | | | | | | | | +--------+ + + + + | 05/22/ | Office | Nephrology | Mariana Cortez, | | | 2020 | Visit | | [address] | | | | | | [address] [place] | | | | | | [place] [address] | | | | | | [phone] | | | | | | | [...]
--- OUTSIDE RECORDS SUMMARY | ~2019-11-09 | XMS | Encounter Summary ---
Demographics + + + | Address | [address] | | | [place] [address] | + + + | Home Phone [...] Author + + + | Author | [facility] | | | and [place] | + + + | Organization | [facility] | | [...] Team Providers + +------+ + | Care Women'S Ministry Director Name | Role | Phone | + +------+ + | Mehrdad Avalos MD | PCP | | + +------+ + Reason for Visit + +--------+ + | Reason | Onset | Comments | | | Date | | + +--------+ + | Care Coordination | 08/17/ | IV ABX Dosage/ Labs | | | 2020 | | + +--------+ + Encounter Details +--------+ + + + + | Date | Type | Department | Care Team | Description | +--------+ + + + + | 08/17/ | Telephone | [facility] | Shirley Alfonso, | Care Coordination | | 2019 | | INFECTIOUS DISEASE | Ui Designer | (IV ABX Dosage/ Labs | | | | [address] | | ) | | | | [place] | | | | | | [address] | | | | | | [phone] | | | +--------+ + + + [...] encounter Miscellaneous Notes Telephone Encounter - Shirley Alfonso Medical Assistant - 08/18/2019 3:59 PM PDTNotedElect ronically signed by Stacey Amin at 08/18/2019 3:59 PM PDTTelephone Enc leilani - Shirley Alfonso Ui Designer - 08/18/2019 11:12 AM PDT08/18/2019: Erum from [facility] [employer] called office and was asking if provider has reviewed patients labs fr 08/16/2019. Erum stated there is quite a few numbers there are abnormal. I let her know t hat patient was instructed to go to ER yesterday 08/17/2019 due to her hct and hgb levels.Bolivar egnel stated that she recommends patient to have dosage reduced to 500MG a day to to labs and r enal function since its less than 30.. Per pharmacy, Erum, is she to remain on Ertapenem and if she is to be reduced to 500MG? And also she will need new orders be faxed to their office for when she is discharged from [facility]. She would like call back # to [phone]. documented in this encounter Plan of Treatment +--------+ + + + + | Date | Type | Specialty | Care Team | Description | +--------+ + + + + | 01/17/ | Appointment | Radiology | Bill Arevalo DNP | | | 2019 | | | [address] | | | | | | [place] | | | | | | [address] | | | | | | | | +--------+ + + + + | 01/17/ | Office | Vascular Surgery | Bill Arevalo DNP | | | 2019 | Visit | | [address] | | | | | | [place] | | | | | | [address] | | | | | | | | +--------+ + + + + | 05/22/ | Office | Nephrology | Mariana Cortez, | | | 2020 | Visit | | [address] | | | | | | [address] [place] | | | | | | [place] [address] | | | | | | [phone] | | | | | | | | +--------+ + + + + documented as of this encounter Visit Diagnoses Not on filedocumented in this encounter"
--- OUTSIDE RECORDS SUMMARY | ~2019-11-09 | XMS | Encounter Summary ---
Demographics + + + | Address | [address] | | | [place] [address] | + + + | Home Phone [...] Author + + + | Author | [facility] | | | and [place] | + + + | Organization | [facility] | | [...] Team Providers + +------+ + | Care Dot Etcher Name | Role | Phone | + [...] | | | rhinitis due | [place] [address] | [address] Phone: | | | | | to animal | Phone: | [phone] | | | | | (cat) (dog) | [phone] | Fax: | | | | | hair and | Fax: | [phone] | | | | | dander | [phone] | | | | | | Allergic [...] | +--------+ + + + + | 05/13/ | Clinical | [facility] [place] | Henok Luther MD | Allergic rhinitis | | 2016 | Support | OTOLARYNGOLOGY [address] | [address] | due to pollen | | | | [address] | [address] [place] | (Primary Dx); | | | | [place] | [address] | Allergic rhinitis | | | | [address] | | due to animal (cat) | | | | [phone] | | (dog) hair and | | [...] this encounter Progress Modesta Willis RN - 05/14/2015 3:58 PM PDTFormatting of this note might be differ ent from the original. Patient presents with epi-pen. Denies delayed reaction from previous allergy injection. No fever or allergy related rash. No recent heavy exposure to allergens. No plans for strenuous exercise before or after injection today. Mixed one allergy treatment vial for patient on 05/10/15. TREATMENT SET [facility] Sapna Honeycuttman Molds, Insects & Feathers: 88 05/14/2015 Allergen Extract Amount/ml Dilution Lot # Expiration Date Alternaria Aspergillus Cladosporium Penicillium Bipolaris Sorok. 0.1 C [id number] 08/13/17 Pullulans 0.1 C 222377 07/03/17 Mucor 0.1 C 887642 10/19/17 Phoma Rhodotorula 0.1 2 066150 09/10/16 Fusarium Paecilomyces Grain Smut 0.1 2 [id number] 01/20/18 Grass Smut 0.1 C 385698 09/10/16 Am. Cockroach 0.1 3 928887 07/03/17 Mixed Feathers 0.1 C 987995 07/03/17 Total Allergens : 0.8 ml. Saline: 1.7 ml. Total Volume : 2.5 ml. 4:4 5 PM PDTdocumented in this encounter Plan of Treatment +--------+ + + + + | Date | Type | Specialty | Care Team | Description | +--------+ + + + + | 01/17/ | Appointment | Radiology | Bill Arevalo, GEMMA | | | 2019 | | | [address] | | | | | | [place] | | | | | | [address] | | | | | | | | +--------+ + + + + | 01/17/ | Office | Vascular Surgery | Bill Arevalo DNP | | | 2019 | Visit | | [address] | | | | | | [place] | | | | | | [address] | | | | | | | | +--------+ + + + + | 05/22/ | Office | Nephrology | Mariana Cortez, | | | 2020 | Visit | | MD [address] | | | | | | [address] [place] | | | | | | [place] [address] | | | | | | [phone] | | | | | | | [...]
--- OUTSIDE RECORDS SUMMARY | ~2019-11-09 | XMS | Encounter Summary ---
Demographics + + + | Address | [address] | | | [place] [address] | + + + | Home Phone | | + + + | Preferred Language | Unknown | + + + | Marital Status | Single | + + + | Yarsanism Affiliation | Unknown | + + + [...] Team Providers + +------+ + | Care Boiling House Oiler Name | Role | Phone | + [...] | | | hair and | [place] [address] | [place], [place] | | | | | dander | Phone: | [phone] | | | | | Non-seasonal | [phone] | Phone: | | | | | allergic | Fax: | [phone] | | | | | rhinitis due | [phone] | Fax: | | | | | to pollen | | [phone] | | | | | Extrinsic | [...] | +--------+ + + + + | 10/02/ | Clinical | [facility] [place] | Henok Luther MD | Non-seasonal | | 2017 | Support | OTOLARYNGOLOGY [address] | [address] | allergic rhinitis | | | | [address] | [address] [place] | due to pollen | | | | [place] | [address] | (Primary Dx); | | | | [address] | | Allergic rhinitis | | | | [phone] | | due to animal (cat) | [...] encounter Progress Notes Domenica Meredith RN - 10/02/2016 4:00 PM PDTPatient presents with epi-pen & inhaler. No ac tive wheezing or cough associated with asthma today. Denies delayed reaction from previous a llergy injection. No fever or allergy related rash. No recent heavy exposure to allergens. N o plans for strenuous exercise immediately before or after injection today.Electronically si gned by Domenica Meredith RN at 10/02/2016 4:27 PM PDTdocumented in this encounter Plan of [...] [place] | | | | | | [address] | | | | | | | | +--------+ + + + + | 05/22/ | Office | Nephrology | Mariana Cortez, | | | 2020 | Visit | | [address] | | | | | | [address] [place] | | | | | | [place] [address] | | | | | | [phone] | | | | | | | [...]
--- OUTSIDE RECORDS SUMMARY | ~2019-11-09 | XMS | Encounter Summary ---
Demographics + + + | Address | [address] | | | [place] [address] | + + + | Home Phone [...] Author + + + | Author | [facility] | | | and [place] | + + + | Organization | [facility] | | [...] Team Providers + +------+ + | Care Clutch Rebuilder Name | Role | Phone | + [...] + + | 08/06/ | Clinical | [facility] [place] | Henok Luther MD | Non-seasonal | | 2017 | Support | OTOLARYNGOLOGY [address] | [address] | allergic rhinitis | | | | [address] [facility] [address] | [address] [place], [place] | due to pollen | | | | [place] | [address] | (Primary Dx); | | | | [address] | | Allergic rhinitis | | | | [phone] | | due to dust mite; | [...] encounter Progress Notes Narda Lay RN - 08/06/2017 3:45 PM PDTPatient presents with epi-pen. Denies delayed reaction from previous allergy injection. No fever or allergy related rash. No recent heavy exposure to allergens. No plans for strenuous exercise before or after injection today. documented in [...] [place] | | | | | | [address] | | | | | | | | +--------+ + + + + | 01/17/ | Office | Vascular Surgery | Bill Arevalo DNP | | | 2019 | Visit | | [address] | | | | | | [place] | | | | | | [address] | | | | | | | | +--------+ + + + + | 05/22/ | Office | Nephrology | Mariana Cortez, | | | 2020 | Visit | | [address] | | | | | | [address] [place] | | | | | | [place] [address] | | | | | | [phone] | | | | | | | [...]
--- OUTSIDE RECORDS SUMMARY | ~2019-11-09 | XMS | Encounter Summary ---
Demographics + + + | Address | [address] | | | [place] [address] | + + + | Home Phone [...] Author + + + | Author | [facility] | | | and [place] | + + + | Organization | [facility] | | | [...] Team Providers + +------+ + | Care Wallpaper Cleaner Name | Role | Phone | + +------+ + PCP | Unavailable | + +------+ + Encounter Details +--------+ + + + + | Date | Type | Department | Care Team | Description | +--------+ + + + + | 12/13/ | Orders Only | [facility] [place] | Mariana Cortez W, | CKD (chronic kidney | | 2015 | | NEPHROLOGY [address] | [address] | disease) stage 3, | | | | [address] | [address] [place] | GFR 30-59 ml/min | | | | [place] | [place] [address] | ([facility]) (Primary Dx) | | | | [address] | [phone] | | | | | [phone] | | | +--------+ + + + [...] + documented as of this encounter Progress Sarah Johnson RN - 12/13/2014 2:31 PM PSTLab order for nephrology appointment on 01/09/15 faxed to [facility].Electronically signed by Sarah Padilla RN at 05/2014 2:43 PM PSTdocumented in this encounter Plan of [...] [place] | | | | | | [address] | | | | | | | | +--------+ + + + + | 05/22/ | Office | Nephrology | Mariana Cortez, | | | 2020 | Visit | | [address] | | | | | | [address] [place] | | | | | | [place] [address] | | | | | | [phone] | | | | | | | | +--------+ + + + + documented as of this encounter Visit Diagnoses + + | Diagnosis | + + | CKD (chronic kidney disease) stage 3, GFR 30-59 ml/min (HCC) - Primary Chronic kidney | | disease, Stage III (moderate) | + + documented in this encounter"
--- OUTSIDE RECORDS SUMMARY | ~2019-11-09 | XMS | Encounter Summary ---
Demographics + + + | Address | [address] | | | [place] [address] | + + + | Home Phone [...] + + | Author | [facility] | | | and [place] | + + + | Organization | [facility] [...] Team Providers + +------+ + | Care Meat Packager Name | Role | Phone | + +------+ + PCP | Unavailable | + +------+ + Encounter Details +--------+ + + + + | Date | Type | Department | Care Team | Description | +--------+ + + + + | 01/10/ | Abstract | [facility] [place] | Mariana Cortez W, | | | 2012 | | NEPHROLOGY [address] | MD [address] | | | | | [address] | [address] [place] | | | | | [place], [place] | [place] [address] | | | | | [address] | [phone] | | | | | [phone] | | | +--------+ + + + [...] [place] | | | | | | [address] | | | | | | | | +--------+ + + + + | 01/17/ | Office | Vascular Surgery | Bill Arevalo DNP | | | 2019 | Visit | | [address] | | | | | | [place] | | | | | | [address] | | | | | | | | +--------+ + + + + | 05/22/ | Office | Nephrology | Mariana Cortez W, | | | 2020 | Visit | | [address] | | | | | | [address] [place] | | | | | | [place] [address] | | | | | | [phone] | | | | | | | | +--------+ + + + + documented as of this encounter Procedures + +--------+ + + + | Procedure Name | Priori | Date/Time | Associated Diagnosis | Comments | | | ty | | | | + +--------+ + + + | EXTERNAL LAB: AST | Routin | 12/31/2012 | | Results for this | | | e | | | procedure are in the | | | | | | results section. | + +--------+ + + + | EXTERNAL LAB: ALT | Routin | 12/31/2012 | | Results for this | | | e | | | procedure are in the | | | | | | results section. | + +--------+ + + + | EXTERNAL LAB: | Routin | 12/31/2012 | | Results for this | | TRIGLYCERIDES | e | | | procedure are in the | | | | | | results section. | + +--------+ + + + | EXTERNAL LAB: | Routin | 12/31/2012 | | Results for this | | CHOLESTEROL, HDL | e | | | procedure are in the | | | | | | results section. | + +--------+ + + + | EXTERNAL LAB: | Routin | 12/31/2012 | | Results for this | | CHOLESTEROL, TOTAL | e | | | procedure are in the | | | | | | results section. | + +--------+ + + + | EXTERNAL LAB: | Routin | 12/31/2012 | | Results for this | | CHOLESTEROL, LDL | e | | | procedure are in the | | | | | | results section. | + +--------+ + + + | EXTERNAL LAB: EGFR | Routin | 12/31/2012 | | Results for this | | | e | | | procedure are in the | | | | | | results section. | + +--------+ + + + | EXTERNAL LAB: | Routin | 12/31/2012 | | Results for this | | CREATININE | e | | | procedure are in the | | | | | | results section. | + +--------+ + + + | CMPI | Routin | 12/31/2012 | | Results for this | | | e | | | procedure are in the | | | | | | results section. | + +--------+ + + + documented in this encounter Results CMP/ISTAT (12/31/2012) + + + + + + | Component | Value | Ref Range | Performed | Pathologist | | | | | At | Signature | + + + + + + | Na | 136 | mmol/L | | | + + + + + + | K | 4.9 | mmol/L | | | + + + + + + | Cl | 102 | mmol/L | | | + + + + + + | BUN | 38 | mg/dL | | | + + + + + + | Bilirubin | 0.3 | mg/dL | | | | Total | | | | | + + + + + + | CO2 | 26 | mmol/L | | | + + + + + + | Calcium | 8.9 | mg/dL | | | + + + + + + | Albumin | 3.4 (A) | 3.5 - 5.0 g/dL | | | + + + + + + | Iron | 61 | ug/dL | | | + + + + + + | % | 14.0 (A) | 15.0 - 45.0 % | | | | SATURATION | | | | | + + + + + + | Ferritin | 35.2 | ng/mL | | | + + + + + + | Glucose | 169 | mg/dL | | | + + + + + + | Alkaline | 76 | 35 - 115 U/L | | | | Phosphatase | | | | | + + + + + + + + | Specimen | + + | Blood specimen | | (specimen) | + + External Lab: AST (12/31/2012) + +-------+ + + + | Component | Value | Ref Range | Performed | Pathologist | | | | | At | Signature | + +-------+ + + + | AST, | 9 | 0 - 40 | EXTERNAL | | | External | | | LAB | | + +-------+ + + + + + | Specimen | + + | Blood specimen | | (specimen) | + + + + | Resulting Agency Comment | + + | [facility] | + + + +---------+ + + | Performing | Address | City/State/Zipcode | Phone Number | | Organization | | | | + +---------+ + + | EXTERNAL LAB | | | | + +---------+ + + External Lab: ALT (12/31/2012) + +-------+ + + + | Component | Value | Ref Range | Performed | Pathologist | | | | | At | Signature | + +-------+ + + + | ALT, | 11 | 0 - 46 | EXTERNAL | | | External | | | LAB | | + +-------+ + + + + + | Specimen | + + | Blood specimen | | (specimen) | + + + + | Resulting Agency Comment | + + | [facility] | + + + +---------+ + + | Performing | Address | City/State/Zipcode | Phone Number | | Organization | | | | + +---------+ + + | EXTERNAL LAB | | | | + +---------+ + + External Lab: Triglycerides (12/31/2012) + +---------+ + + + | Component | Value | Ref Range | Performed | Pathologist | | | | | At | Signature | + +---------+ + + + | Triglycerid | 195 (A) | 30 - 150 | EXTERNAL | | | es, | | | LAB | | | External | | | | | + +---------+ + + + + + | Specimen | + + | Blood specimen | | (specimen) | + + + + | Resulting Agency Comment | + + | [facility] | + + + +---------+ + + | Performing | Address | City/State/Zipcode | Phone Number | | Organization | | | | + +---------+ + + | EXTERNAL LAB | | | | + +---------+ + + External Lab: Cholesterol, HDL (12/31/2012) + +-------+ + + + | Component | Value | Ref Range | Performed | Pathologist | | | | | At | Signature | + +-------+ + + + | HDL | 59.4 | 40 | EXTERNAL | | | Cholesterol | | | LAB | | | , External | | | | | + +-------+ + + + + + | Specimen | + + | Blood specimen | | (specimen) | + + + + | Resulting Agency Comment | + + | [facility] | + + + +---------+ + + | Performing | Address | City/State/Zipcode | Phone Number | | Organization | | | | + +---------+ + + | EXTERNAL LAB | | | | + +---------+ + + External Lab: Cholesterol, Total (12/31/2012) + +---------+ + + + | Component | Value | Ref Range | Performed | Pathologist | | | | | At | Signature | + +---------+ + + + | Cholesterol | 230 (A) | 200 | EXTERNAL | | | , Total, | | | LAB | | | External | | | | | + +---------+ + + + + + | Specimen | + + | Blood specimen | | (specimen) | + + + + | Resulting Agency Comment | + + | [facility] | + + + +---------+ + + | Performing | Address | City/State/Zipcode | Phone Number | | Organization | | | | + +---------+ + + | EXTERNAL LAB | | | | + +---------+ + + External Lab: Cholesterol, LDL (12/31/2012) + +---------+ + + + | Component | Value | Ref Range | Performed | Pathologist | | | | | At | Signature | + +---------+ + + + | LDL | 132 (A) | 100 | EXTERNAL | | | Cholesterol | | | LAB | | | , Direct, | | | | | | External | | | | | + +---------+ + + + + + | Specimen | + + | Blood specimen | | (specimen) | + + + + | Resulting Agency Comment | + + | [facility] | + + + +---------+ + + | Performing | Address | City/State/Zipcode | Phone Number | | Organization | | | | + +---------+ + + | EXTERNAL LAB | | | | + +---------+ + + External Lab: eGFR (12/31/2012) + +-------+ + + + | Component [...] | | | LAB | | | [place], | | | | | | External | | | | | + +-------+ + + + + + | Specimen | + + | Blood specimen | | (specimen) | + + + + | Resulting Agency Comment | + + | [facility] | + + + +---------+ + + | Performing | Address | City/State/Zipcode | Phone Number | | Organization | | | | + +---------+ + + | EXTERNAL LAB | | | | + +---------+ + + External Lab: Creatinine (12/31/2012) + +-------+ + + + | Component | Value | Ref Range | Performed | Pathologist | | | | | At | Signature | + +-------+ + + + | Creatinine, | 1.01 | 0.5 - 1.5 | EXTERNAL | | | External | | | LAB | | + +-------+ + + + + + | Specimen | + + | Blood specimen | | (specimen) | + + + + | Resulting Agency Comment | + + | [facility] | + + + +---------+ + + | Performing | Address | City/State/Zipcode | Phone Number | | Organization | | | | + +---------+ + + | EXTERNAL LAB | | | | + +---------+ + + documented in this encounter Visit Diagnoses Not on filedocumented in this encounter"
--- OUTSIDE RECORDS SUMMARY | ~2019-11-09 | XMS | Encounter Summary ---
Demographics + + + | Address | [address] | | | [place] [address] | + + + | Home Phone [...] Team Providers + +------+ + | Care Dental Manager Name | Role | Phone | + +------+ + | Mehrdad Avalos MD | PCP | | + +------+ + Reason for Referral Evaluate & Treat (Routine) + + + [...] | | Services | Surgery | | [facility] | Surgery | | | Required | | Osteomyeliti | [place], | [address] | | | | | s of fifth | [address] | | | | | toe of right | [address] | [place], [place] | | | | | foot (HCC) | [place], [place] | [address] | | | | | | [address] | Phone: | | | | | | Phone: | [phone] | | | | | | [phone] | Fax: | | | | | | Fax: | [phone] | | | | | | [phone] | | + + + + + + + Encounter Details +--------+ + + + + | Date | Type | Department | Care Team | Description | +--------+ + + + + | 09/15/ | Orders Only | [facility] | Louie Henry, | Osteomyelitis of | | 2019 | | INFECTIOUS DISEASE | Carmine Kebede MD | fifth toe of right | | | | [address] | [address] | foot (HCC) (Primary | | | | [place], [place] | [place] [address] | Dx) | | | | [address] | [phone] | | | | | [phone] | | | +--------+ + + + [...] [place] | | | | | | [address] | | | | | | | [...] [address] | | | | | | [place] [address] | | | | | | [phone] | | | | | | | | +--------+ + + + + + + +--------+ + + | Name | Type | Priori | Associated Diagnoses | Order Schedule | | | | ty | | | + + +--------+ + + | Ambulatory Referral | Outpatient | Routin | Osteomyelitis of | Ordered: 09/16/2019 | | to [facility] | Referral | e | fifth toe of right | | | Surgery | | | foot (HCC) | | + + +--------+ + + documented as of this encounter Visit Diagnoses + + | Diagnosis | + + | Osteomyelitis of fifth toe of right foot (HCC) - Primary | + + documented in this encounter"
--- OUTSIDE RECORDS SUMMARY | ~2019-11-09 | XMS | Encounter Summary ---
Demographics + + + | Address | [address] | | | [place] [address] | + + + | Home Phone [...] Team Providers + +------+ + | Care Upper Cutter Machine Name | Role | Phone | + [...] [address] [place] | | | | | [place], [place] | [place] [address] | | | | | [address] | [phone] | | | | | [phone] | | | +--------+ + + + [...] [place] | | | | | | [address] | | | | | | | | +--------+ + + + + | 01/17/ | Office | Vascular Surgery | Bill Arevalo DNP | | | 2019 | Visit | | [address] | | | | | | [place] | | | | | | [address] | | | | | | | | +--------+ + + + + | 05/22/ | Office | Nephrology | Mariana Cortez | | | 2020 | Visit | | [address] | | | | | | [address] [place] | | | | | | [place] [address] | | | | | | [phone] | | | | | | | [...] this encounter Results External Lab: Protein/Creatinine Ratio (05/10/2018) + + + + + + | Component | Value | Ref Range | Performed | Pathologist | | | | | At | Signature | + + + + + + | Protein/Cre | 0.370 (A) | 0.2 | | | | atinine | | | | | | Ratio, | | | | | | External | | | | | + + + + + + + + | Specimen | + + | | + + documented in this encounter Visit Diagnoses Not on filedocumented in this encounter"
--- OUTSIDE RECORDS SUMMARY | ~2019-11-09 | XMS | Encounter Summary ---
Demographics + + + | Address | [address] | | | [place] [address] | + + + | Home Phone [...] Team Providers + +------+ + | Care Data Analysis Assistant Name | Role | Phone | + [...] | | | to pollen | [address] | [address] [place] | | | | | Allergic | [place], | [place], [place] | | | | | rhinitis due | [place] [address] | [address] Phone: | | | | | to animal | Phone: | [phone] | | | | | (cat) (dog) | [phone] | Fax: | | | | | hair and | Fax: | [phone] | | | | | dander | [phone] | | | | | | Allergic [...] | +--------+ + + + + | 12/11/ | Clinical | [facility] [place] | Mehrdad Thomas MD | Non-seasonal | | 2015 | Support | OTOLARYNGOLOGY [address] | [address] [place] | allergic rhinitis | | | | [address] | [address] [place] | due to pollen | | | | [place], [place] | [address] | (Primary Dx); | | | | [address] | | Allergic rhinitis | | | | [phone] | | due to animal (cat) | [...] encounter Progress Notes Modesta Benitez RN - 12/12/2015 4:18 PM PDTPatient presents with epi-pen & inhaler . No active wheezing or cough associated with asthma today. Denies delayed reaction from pre vious allergy injection. No fever or allergy related rash. No recent heavy exposure to aller gens. No plans for strenuous exercise immediately before or after injection today.Electronic ally signed by Modesta Benitez RN at 12/12/2015 4:43 PM PDTdocumented in this encoun ter Plan [...] [place] | | | | | | [address] | | | | | | | | +--------+ + + + + | 01/17/ | Office | Vascular Surgery | Bill Arevalo DNP | | 2019 | Visit | | [address] | | | | | | [place] | | | | | | [address] | | | | | | | | +--------+ + + + + | 05/22/ | Office | Nephrology | Mariana Cortez, | | | 2020 | Visit | | [address] | | | | | | [address] [place] | | | | | | [place] [address] | | | | | | [phone] | | | | | | | [...]
--- OUTSIDE RECORDS SUMMARY | ~2019-11-09 | XMS | Encounter Summary ---
Demographics + + + | Address | [address] | | | [place] [address] | + + + | Home Phone [...] Author + + + | Author | [facility] | | | and [place] | + + + | Organization | [facility] | | | [...] Team Providers + +------+ + | Care C.O.D. Audit Clerk Name | Role | Phone | [...] | +--------+ + + + + | 04/10/ | Clinical | [facility] | Henok Luther MD | Non-seasonal | | 2020 | Support | OTOLARYNGOLOGY 301 | [address] | allergic rhinitis | | | | [address] [facility] [address] | [address] [place], [place] | due to pollen | | | | [place], [place] | [address] | (Primary Dx); | | | | [address] | | Allergic rhinitis | | | | [phone] | | due to animal (cat) | [...] encounter Progress Notes Narda Lay RN - 04/11/2019 2:00 PM PSTPatient presents with epi-pen. Denies delayed reaction from previous allergy injection. No fever or allergy related rash. No recent heavy exposure to allergens. No plans for strenuous exercise before or after injection today.Elec tronically signed by Narda Lay RN at 04/11/2019 2:05 PM PSTdocumented in this encoun ter Plan [...] [place] | | | | | | [address] | | | | | | | | +--------+ + + + + | 01/17/ | Office | Vascular Surgery | Bill Arevalo DNP | | | 2019 | Visit | | [address] | | | | | | [place] | | | | | | [address] | | | | | | | | +--------+ + + + + | 05/22/ | Office | Nephrology | Mariana Cortez, | | | 2020 | Visit | | [address] | | | | | | [address] [place] | | | | | | [place] [address] | | | | | | [phone] | | | | | | | [...]
--- OUTSIDE RECORDS SUMMARY | ~2019-11-09 | XMS | Encounter Summary ---
Demographics + + + | Address | [address] | | | [place] [address] | + + + | Home Phone [...] Team Providers + +------+ + | Care Waist Cutter Name | Role | Phone | + [...] | +--------+ + + + + | 05/07/ | Clinical | [facility] [place] | Kole Soto | Extrinsic asthma, | | 2017 | Support | OTOLARYNGOLOGY [address] | MD Jeovany [address] | unspecified asthma | | | | [address] | [address] [place] | severity, | | | | [place], [place] | [place] [address] | unspecified whether | | | | [address] | [phone] | complicated, | | | | [phone] | | unspecified whether | | | [...] encounter Progress Notes Domenica Meredith RN - 05/07/2017 3:30 PM PDTPatient presents with epi-pen & inhaler. No ac tive wheezing or cough associated with asthma today. Denies delayed reaction from previous a llergy injection. No fever or allergy related rash. No recent heavy exposure to allergens. N o plans for strenuous exercise immediately before or after injection today.Electronically si gned by Domenica Meredith RN at 05/07/2017 3:41 PM PDTdocumented in this encounter Plan of [...] [place] | | | | | | [address] | | | | | | | | +--------+ + + + + | 01/17/ | Office | Vascular Surgery | Bill Arevalo DNP | | | 2019 | Visit | | [address] | | | | | | [place] | | | | | | [address] | | | | | | | | +--------+ + + + + | 05/22/ | Office | Nephrology | Mariana Cortez W, | | | 2020 | Visit | | [address] | | | | | | [address] [place] | | | | | | [place] [address] | | | | | | [phone] | | | | | | | [...]
--- OUTSIDE RECORDS SUMMARY | ~2019-11-09 | XMS | Encounter Summary ---
Demographics + + + | Address | [address] | | | [place] [address] | + + + | Home Phone [...] + + + | Author | [facility] | | | and [place] | + + + | Organization | [facility] | | [...] Team Providers + +------+ + | Care Forklift Operator Name | Role | Phone | [...] | | | to pollen | [place] [address] | [address] Phone: | | | | | Allergic | Phone: | [phone] | | | | | rhinitis due | [phone] | Fax: | | | | | to dust | Fax: | [phone] | | | | | Mild | [phone] | | | | | | intermittent [...] | +--------+ + + + + | 11/18/ | Clinical | [facility] | Henok Luther MD | Extrinsic asthma, | | 2018 | Support | [address]OLARYNGOLOGY [address] | [address] [place] | unspecified asthma | | | | [address] | [address] [place] | severity, | | | | [place] | [address] | unspecified whether | | | | [address] | | complicated, | | | | [phone] | | unspecified whether | | | [...] documented as of this encounter Progress Notes Dmoenica Meredith RN - 11/18/2017 2:30 PM PDTPatient presents with epi-pen & inhaler. No ac tive wheezing or cough associated with asthma today. Denies delayed reaction from previous a llergy injection. No fever or allergy related rash. No recent heavy exposure to allergens. N o plans for strenuous exercise immediately before or after injection today.Electronically si gned by Domenica Meredith RN at 11/18/2017 2:58 PM PDTdocumented in this encounter Plan of [...] [place] | | | | | | [address] | | | | | | | | +--------+ + + + + | 05/22/ | Office | Nephrology | Mariana Cortez, | | | 2020 | Visit | | MD [address] | | | | | | [address] [place] | | | | | | [place] [address] | | | | | | [phone] | | | | | | | [...]
--- OUTSIDE RECORDS SUMMARY | ~2019-11-09 | XMS | Encounter Summary ---
Demographics + + + | Address | [address] | | | [place] [address] | + + + | Home Phone [...] Team Providers + +------+ + | Care Trench Trimmer Fine Name | Role | Phone | + +------+ + | Mehrdad Avalos MD | PCP | | + +------+ + Encounter Details +--------+ + + + + | Date | Type | Department | Care Team | Description | +--------+ + + + + | 09/27/ | Orders Only | [facility] | Jamie Cunningham, | PAD (peripheral | | 2019 | | VASCULAR SURGERY | [facility] [address] | artery disease) | | | | [address] | [address] [place], | ([facility]) (Primary Dx) | | | | [place], [place] | [place] [address] | | | | | [address] | [phone] | | | | | [phone] | | | +--------+ + + + [...] [place] | | | | | | [address] | | | | | | | [...] | | | | | [place] [address] | | | | | | [phone] | | | | | | | | +--------+ + + + + documented as of this encounter Visit Diagnoses + + | Diagnosis | + + | PAD (peripheral artery disease) (HCC) - Primary Unspecified disorders of arteries and | | arterioles | + + documented in this encounter"
--- OUTSIDE RECORDS SUMMARY | ~2019-11-09 | XMS | Encounter Summary ---
Demographics + + + | Address | [address] | | | [place] [address] | + + + | Home Phone [...] Team Providers + +------+ + | Care Extractor Filler Name | Role | Phone | + +------+ + | Roenl Jacobson PA-C | PCP | | + [...] [address] [place] | | | | | [place], [place] | [place] [address] | | | | | [address] | [phone] | | | | | [phone] | | | +--------+ + + + [...] [place] | | | | | | [address] | | | | | | | | +--------+ + + + + | 01/17/ | Office | Vascular Surgery | Bill Arvealo DNP | | | 2019 | Visit | | [address] | | | | | | [place] | | | | | | [address] | | | | | | | | +--------+ + + + + | 05/22/ | Office | Nephrology | Mariana Cortez W, | | | 2020 | Visit | | [address] | | | | | | [address] | | | | | | [place] [address] | | | | | | [phone] | | | | | | | | +--------+ + + + + documented as of this encounter Procedures + +--------+ + + + | Procedure Name | Priori | Date/Time | Associated Diagnosis | Comments | | | ty | | | | + +--------+ + + + | EXTERNAL LAB: | Routin | 03/09/2015 | | Results for this | | PROTEIN/CREATININE | e | | | procedure are in the | | RATIO | | | | results section. | + +--------+ + + + documented in this encounter Results External Lab: Protein/Creatinine Ratio (03/09/2015) + + + + + + | Component | Value | Ref Range | Performed | Pathologist | | | | | At | Signature | + + + + + + | Protein/Cre | 2.45 (A) | 0.15 | | | | atinine | | | | | | Ratio, | | | | | | External | | | | | + + + + + + + + | Specimen | + + | | + + documented in this encounter Visit Diagnoses Not on filedocumented in this encounter"
--- OUTSIDE RECORDS SUMMARY | ~2019-11-09 | XMS | Encounter Summary ---
Demographics + + + | Address | [address] | | | [place] [address] | + + + | Home Phone [...] Author + + + | Author | [facility] | | | and [place] | + + + | Organization | [facility] | | [...] Team Providers + +------+ + | Care Schedule Supervisor Name | Role | Phone | + +------+ + | Ronel Jacobson PA-C PCP | | + +------+ + Reason for Visit +--------+--------+ + | Reason | Onset | Comments | | | Date | | +--------+--------+ + | Other | 02/20/ | Ekg | | | 2017 | | +--------+--------+ + Encounter Details +--------+ + + + + | Date | Type | Department | Care Team | Description | +--------+ + + + + | 02/20/ | Telephone | [facility] | Henok Luther MD | Other (Ek) | | 2017 | | OTOLARYNGOLOGY [address] | [address] [place] | | | | | [address] [facility] [address] | [address] [place] | | | | | [place] | [address] | | | | | [address] | | | | | | [phone] | | | +--------+ + + + [...] Miscellaneous Notes Telephone Encounter - Marguerite Rangel, University Administrator - 02/23/2017 9:07 AM PSTCalled and spoke to patient letting her know that everything is taken care of. [facility] Faxing over results to Clarissa priest at Same day. elephone Encounter - Shanthi Fuentes University Administrator - 02/20/2017 9:45 AM PSTPatient returned my call about her EK G that she needs done. Patient would like it done at [facility]. Jerrell is verify ing if auth is needed since patient has [employer] insurance. elephone Encounter - Shanthi Fuentes University Administrator - 02/20/2017 9:21 AM PSTLeft a voicemail for patient to give us a call b ack as soon as possible. She needs to have an EKG done prior to her surgery on Thursday the 02 14. Would like to know where patient would like EKG orders sent to. documented in this encounter Plan of Treatment +--------+ + + + + | Date | Type | Specialty | Care Team | Description | +--------+ + + + + | 01/17/ | Appointment | Radiology | Bill Arevalo DNP | | | 2019 | | | [address] | | | | | | [place] | | | | | | [address] | | | | | | | | +--------+ + + + + | 01/17/ | Office | Vascular Surgery | Bill Arevalo DNP | | | 2019 | Visit | | [address] | | | | | | [place] | | | | | | [address] | | | | | | | | +--------+ + + + + | 05/22/ | Office | Nephrology | Mariana Cortez, | | | 2020 | Visit | | [address] | | | | | | [address] | | | | | | [place] [address] | | | | | | [phone] | | | | | | | | +--------+ + + + + + +------+--------+ + + | Name | Type | Priori | Associated Diagnoses | Order Schedule | | | | ty | | | + +------+--------+ + + | ECG 12 lead | ECG | Routin | Deviated nasal | 1 Occurrences | | | | e | septum Hypertrophy | starting 02/20/2017 | | | | | of nasal turbinates | until 02/20/2018 | | | | | Allergic rhinitis | | | | | | due to pollen | | + +------+--------+ + + documented as of this encounter Visit Diagnoses + + | Diagnosis | + + | Hypertrophy of nasal turbinates - Primary | + + | Deviated nasal septum | + + | Allergic rhinitis due to pollen, unspecified chronicity, unspecified seasonality | + + documented in this encounter"
--- OUTSIDE RECORDS SUMMARY | ~2019-11-09 | XMS | Encounter Summary ---
Demographics + + + | Address | [address] | | | [place] [address] | + + + | Home Phone [...] Team Providers + +------+ + | Care Software Sales Representative Name | Role | Phone | + [...] | | | vascular | | [place] [address] | | | | | ectasia) | | Phone: | | | | | Procedures | | [phone] | | | | | MD EGD | | Fax: | | | | | TRANSORAL | | [phone] | | | | | BIOPSY | | | | | | | SINGLE/MULTI | | | | | | | PLE MD | | | | | | [...] Description | +--------+---------+ + + + | 10/03/ Surgery | [facility] | Avel Upton MD | [facility] | | 2020 | | [facility] | [address] | Popliteal to tibial | | | | OPERATING RO[address] | [place], [place] | bypass | | | | [address] | [address] | | | | | [place], [place] | [phone] | | | | | [address] | | | | | | [phone] | | | +--------+---------+ + + + [...] + + + | Blood Pressure | 166/80 | 10/04/2019 10:39 AM | | | | | PDT | | + + + + + | Pulse | 112 | 10/04/2019 10:39 AM | | | | | PDT | | + + + + + | Temperature | 36.5 C (97.7 F) | 10/04/2019 10:39 AM | | | | | PDT | | + + + + + | Respiratory Rate | 18 | 10/04/2019 10:39 AM | | | | | PDT | | + + + + + | Oxygen Saturation | 100% | 10/04/2019 10:39 AM | | | | | PDT | | + + + + + | Inhaled Oxygen | - | - | | | Concentration | | | | + + + + + | Weight | 93.1 kg (205 lb 4 | 10/04/2019 10:39 AM | | | | oz) [...] Physician Discharge Summary Patient ID: July Forte [id number] y.o. 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 ABDOMEN: Soft, non-tender, non-distended. SKIN: [place], warm, and dry without rashes or lesions. [...] 1 tablet by mouth Daily. TECHLITE LANCETS [facility] [place] Plan: POD 2 from right leg revascularization. [...] you recover. Don t drive for at [id number] after your surgery or while you are [...] better overnight Chest pain or trouble breathing [employer] last reviewed this educational content on 11/09/201819990602-8123 [email or web address]. [address] [place] [address], [place] [address]. All righ ts reserved. This information is [...] capsule by | 60 | 0 | 08// | | | (COLACE) 100 mg | [...] Menchaca PA-C - 10/05/2019 9:17 AM PDT [facility] Service: Vascular Surgery Progress Note Hospital Day: [...] Rate regular. ABDOMEN: Soft, non-tender, non-distended. SKIN: [place], warm, and dry without rashes or lesions. [...] of Covid clearance test with her to marty mak today, negative results in paper chart as of 10/04/2019 per [facility]. documented i n this encounter H&P Notes Avel Upton MD - 10/04/2019 11:15 AM [facility] Service: Vascular Surgery Pre-Operative History & Physical Interval Update There have been no significant clinical changes since the completion of the above H&P. Judi y's physical assessment showed Normal appearance and alert and oriented x 3 Plan for right mid CORY to DPA bypass due to tibial artery occlusions. PARQ was done and co nsent was obtained. Avel Upton MD 10/04/2019 Avel Cooper MD - 0 09/22/2019 10:45 AM PDT [facility] [address] [place] [address] Office: [phone] SUBJECTIVE: Mrs. Forte is a pleasant 49 [...] and has previously undergone a 6 w apache course of abx (via PICC line). The [...] Inferior Turbinoplasty; Surgeon: Henok Luther MD; Location: [facility] MAIN OR UPPER GASTROINTESTINAL ENDOSCOPY N/A 08/18/2019 Procedure: EGD; Surgeon: Stepan Magdaleno MD; Location: [facility] Social History Tobacco Use [...] mouth Daily. 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 ABDOMEN: Soft, non-tender, non-distended. SKIN: [place], warm, and dry without rashes or lesions. [...] in cm/sec, waveform analysis: Right lower extremity: PARLIAMENTARY ARCHIVIST prox: 91, triphasic DFA prox: 46, triphasic SFA prox: 104, triphasic SFA mid: 106, triphasic SFA dist: 121, triphasic Pop mid: 94, triphasic CORY prox: 86, triphasic CORY dist: 235, triphasic T HOSPITAL STAFF PHARMACIST prox: 0, absent HOSPITAL STAFF PHARMACIST dist: 0, absent Peroneal prox: 33, triphasic Peroneal dist: 0, absent IMPRESSION: RIGHT LEG: Triphasic inflow and outflow, without hemodynamically significant stenosis. Appe ars to be single-vessel runoff via the CORY, with > 50% distal CORY stenosis (113-235 cm/sec). HOSPITAL STAFF PHARMACIST chronically occluded throughout. 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 Final Report Signed by: Darleen Phillip, Dank Sign Date/Time: 09/15/2019 7:49 AM ASSESSMENT/PLAN: Discussed US RLE arteries results from 09/13 with the patient, which indicates HOSPITAL STAFF PHARMACIST and perone al occlusion (appears chronic) with [...] Thiago Galeano). Information re corded by the scribe has [...] Functional Status: Indep community ambulator. Works at [employer] for the tr [employer]. No fall hx. [...] after Discharge: none Pharmacy/Medication Needs: other (see comments)([facility]) Transportation Needs: Pt family will provide Initial Plan Anticipated Discharge Disposition: home Expected DC Date: yes Steps Taken Toward Discharge: Initial assessment Pt denies any discharge needs, ASSEMBLY HAND faxed scripts to [facility] pharmacy. Electronically signed: SKIP TRIPLETT 10/06/2019 [...] to Fall Injury Risk Flowsheets (Taken 10/05/2019 8274) Self-Care Promotion: independence encouraged BADL personal objects within reach lan of Sunitha Soto RN - 10/05/2019 3:18 PM PDT Problem: Adult Inpatient Plan of Care Goal: Absence of Hospital-Acquired Illness or Injury Outcome: Ongoing, progressing Patient is ambulating and is up in chair today to promote blood flow and healing to wounds lan of Sotero - Erma Malagon PT - 10/05/2019 10:45 [...] Level Comment: Indep community ambulator. Works at [employer] for the [employer]. No fall hx. Precautions Precautions/Limitations: falls Cognitive Assessment Additional Documentation: orientation Orientation: oriented x 4 Bed Mobility Additional Documentation: supine to/from sit Supine to Sit, Level of [place]: stand by assist Safety Issues: decreased use of legs for bridging/pushing Impairments: pain Transfers Additional Documentation: sit to/from stand Sit-Stand, Level of [place]: contact guard assist, verbal cues required Stand-Sit, Level of [place]: contact guard assist, verbal cues required Btr-Fygnz-Itc, Assistive Device: 2 wheeled walker (FWW), gait belt Safety Issues: weight-shifting ability decreased, step length decreased Gait Gait Comments: Initially step to gait with mild antalgia gradually improving to step throug h gait pattern but left step length still reduced compared to right given reduced R ankle fl exibility. Level of [place]: contact guard assist Assistive Device: 2 wheeled [...] LTG Status new at 10/05/2019 1045 LTG [place] Level modified independent at 10/05/2019 1045 LTG [...] Upton MD - 10/04/2019 3:30 PM PDT [facility] Service: Vascular Surgery Operative Note Pre-operative Diagnosis: Critical limb ischemia of right lower extremity Post-operative Diagnosis: same Procedure(s): Open harvest of right great saphenous vein Right proximal anterior tibial artery to dorsalis pedis artery by pass using RSVG Surgeon: Avel Upton MD Final Dressing Cutter(s): MAGDY Paez (PA was required to help [...] ae, MD - 10/04/2019 3:20 PM PDT [facility] Service: Vascular Surgery Brief Op Note Pre-operative Diagnosis: Critical limb ischemia of right lower extremity Post-operative Diagnosis: same Procedure(s): Open harvest of right great saphenous vein Right proximal anterior tibial artery to dorsalis pedis artery bypass using RSVG Surgeon: Avel Upton MD Final Dressing Cutter(s): MAGDY Paez (PA was required to help [...] [place] | | | | | | [address] | | | | | | | | +--------+ + + + + | 01/17/ | Office | Vascular Surgery | Bill Arevalo DNP | | | 2019 | Visit | | [address] | | | | | | [place] | | | | | | [address] | | | | | | | | +--------+ + + + + | 05/22/ | Office | Nephrology | Mariana Cortez, | | | 2020 | Visit | | [address] | | | | | | [address] | | | | | | [place] [address] | | | | | | [phone] | | | | | | | [...] | | | | | PDT | (HCC) | | + +--------+ + + [...] | | | POC | performed at [facility];[address] | | LABORATORY | | | | [address];[place], [place] | | | | | | [address] | | | | + + + + + + + + | Specimen | + + | | + + + + + + + | Performing | Address | City/State/Zipcode | Phone Number | | Organization | | | | + + + + + | [facility] | [address] | [place] [address] | [phone] | + + + + + CBC [...] LABORATORY | | | | performed at [facility], [address] | | | | | [address], | | | | | | [place] [address] | | | | + + + + + + + + | Specimen | + + | Blood | + + + + + + + | Performing | Address | City/State/Zipcode | Phone Number | | Organization | | | | + + + + + | [facility] | [address] | [place] [address] | [phone] | + + + + + Basic [...] | | | | | performed at [facility], [address] | | | | | | [facility], | | | | | | [place] [address] | | | | + + + + + + + + | Specimen | + + | Blood | + + + + + + + | Performing | Address | City/State/Zipcode | Phone Number | | Organization | | | | + + + + + | [facility] | [address] | [place] [address] | [phone] | + + + + + POC Glucose (10/05/2019 9:22 PM PDT) + + + + + + | Component | Value | Ref Range | Performed | Pathologist | | | | | At | Signature | + + + + + + | Glucose, | 170 (H)Comment: Testing | 65 - 99 mg/dL | [facility] | | | POC | performed at [facility];[address] | | LABORATORY | | | | [address];[place], [place] | | | | | | [address] | | | | + + + + + + + + | Specimen | + + | | + + + + + + + | Performing | Address | City/State/Zipcode | Phone Number | | Organization | | | | + + + + + | [facility] | [address] | [place] [address] | [phone] | + + + + + POC [...] | | | POC | performed at [facility];[address] | | LABORATORY | | | | [address];[place], [place] | | | | | | [address] | | | | + + + + + + + + | Specimen | + + | | + + + + + + + | Performing | Address | City/State/Zipcode | Phone Number | | Organization | | | | + + + + + | [facility] | [address] | [place] [address] | [phone] | + + + + + POC Glucose (10/05/2019 11:39 AM PDT) + + + + + + | Component | Value | Ref Range | Performed | Pathologist | | | | | At | Signature | + + + + + + | Glucose, | 145 (H)Comment: Testing | 65 - 99 mg/dL | [facility] | | | POC | performed at [facility];[address] | | LABORATORY | | | | [address];[place] | | | | | | [address] | | | | + + + + + + + + | Specimen | + + | | + + + + + + + | Performing | Address | City/State/Zipcode | Phone Number | | Organization | | | | + + + + + | [facility] | [address] | [place] [address] | [phone] | + + + + + POC Glucose (10/05/2019 7:57 AM PDT) + + + + + + | Component | Value | Ref Range | Performed | Pathologist | | | | | At | Signature | + + + + + + | Glucose, | 150 (H)Comment: Testing | 65 - 99 mg/dL | [facility] | | | POC | performed at [facility];[address] | | LABORATORY | | | | [address];[place] | | | | | | [address] | | | | + + + + + + + + | Specimen | + + | | + + + + + + + | Performing | Address | City/State/Zipcode | Phone Number | | Organization | | | | + + + + + | [facility] | [address] | [place] [address] | [phone] | + + + + + CBC [...] LABORATORY | | | | performed at [facility], [address] | | | | | [address], | | | | | | [place] [address] | | | | + + + + + + + + | Specimen | + + | Blood | + + + + + + + | Performing | Address | City/State/Zipcode | Phone Number | | Organization | | | | + + + + + | [facility] | [address] | [place] [address] | [phone] | + + + + + Basic [...] 8.1 (L) | 8.5 - 10.5 | [facility] | | | | | mg/dL | LABORATORY | | + + + + + + | Estimated | 28 (L)Comment: GFR <60: | >60 | [facility] | | | GFR | CHRONIC [...] | | | | | performed at [facility], [address] | | | | | | [facility], | | | | | | [place] [address] | | | | + + + + + + + + | Specimen | + + | Blood | + + + + + + + | Performing | Address | City/State/Zipcode | Phone Number | | Organization | | | | + + + + + | [facility] | [address] | [place] [address] | [phone] | + + + + + POC Glucose (10/04/2019 8:12 PM PDT) + + + + + + | Component | Value | Ref Range | Performed | Pathologist | | | | | At | Signature | + + + + + + | Glucose, | 274 (H)Comment: Testing | 65 - 99 mg/dL | [facility] | | | POC | performed at [facility];[address] | | LABORATORY | | | | [address];[place], [place] | | | | | | [address] | | | | + + + + + + + + | Specimen | + + | | + + + + + + + | Performing | Address | City/State/Zipcode | Phone Number | | Organization | | | | + + + + + | [facility] | [address] | [place] [address] | [phone] | + + + + + POC [...] | | | POC | performed at [facility];[address] | | LABORATORY | | | | [address];[place], [place] | | | | | | [address] | | | | + + + + + + + + | Specimen | + + | | + + + + + + + | Performing | Address | City/State/Zipcode | Phone Number | | Organization | | | | + + + + + | [facility] | [address] | [place] [address] | [phone] | + + + + + Type [...] + + + | [facility] | [id number] | | [facility] | | | | | | LABORATORY | | + + + + + + | BB BAND | Testing performed at | | [facility] | | | | [facility];[address] | | LABORATORY | | | | [address];[place] [address] | | | | + + + + + + + + | Specimen | + + | Blood | + + + + + + + | Performing | Address | City/State/Zipcode | Phone Number | | Organization | | | | + + + + + | [facility] | [address] | [place] [address] | [phone] | + + + + + CBC [...] | | | Absolute | performed at [facility];[address] | [address] | LABORATORY | | | | [address] [place], [place] | | | | | | [address] | | | | + + + + + + + + | Specimen | + + | Blood | + + + + + + + | Performing | Address | City/State/Zipcode | Phone Number | | Organization | | | | + + + + + | [facility] | [address] | [place] [address] | [phone] | + + + + + Basic [...] | | | | | | MDRD IDIN traceable | | | | | | equation.Testing | | | | | | performed at [facility];[address] | | | | | | [address];[place], [place] | | | | | | [address] | | | | + + + + + + + + | Specimen | + + | Blood | + + + + + + + | Performing | Address | City/State/Zipcode | Phone Number | | Organization | | | | + + + + + | [facility] | [address] | [place] [address] | [phone] | + + + + + POC Glucose (10/04/2019 10:37 AM PDT) + + + + + + | Component | Value | Ref Range | Performed | Pathologist | | | | | At | Signature | + + + + + + | Glucose, | 221 (H)Comment: Testing | 65 - 99 mg/dL | [facility] | | | POC | performed at [facility];[address] | | LABORATORY | | | | [address];[place] | | | | | | [address] | | | | + + + + + + + + | Specimen | + + | | + + + + + + + | Performing | Address | City/State/Zipcode | Phone Number | | Organization | | | | + + + + + | [facility] | [address] | [place] [address] | [phone] | + + + + + POCT Test, Urine, Qual (10/04/2019 10:30 AM PDT) + + + + + + | Component | Value | Ref Range | Performed | Pathologist | | | | | At | Signature | + + + + + + | POC HCG | NEGATIVEComment: Testing | NEG | [facility] | | | Qualitative | performed at [facility];[address] | | LABORATORY | | | | [address];[place], [place] | | | | | | [address] | | | | + + + + + + + + | Specimen | + + | | + + + + + + + | Performing | Address | City/State/Zipcode | Phone Number | | Organization | | | | + + + + + | [facility] | [address] | [place] [address] | [phone] | + + + + + documented [...] 20 8:59 | | | | | 10/04/19 at 1945, | | AM PDT | [...] | | | | | dose on e 10/04/19 at 2100 | | AM PDT | [...] CONTINUOUS PRN, hypoglycemia, | | | Starting 10/04/19 at 1920, | | | Start infusion [...] | + +---+ + +-------+ +------+---+---+ | folic acid tablet [...] | | +---+---+ + +-------+ +---------+---+---+ | heparin 5,000 units/mL 5,000 | Given | 10/04/19 | 501 mLs | | | | Units in sodium chloride (PF) | | 20 1:44 | | | | | 0.9% injection 500 mL Optesia | | PM PDT | | | | | Mixture PRN, Starting Tue | | | | | | | 10/04/19 at 1344, Intra-op | | | | | | [...] | | | | | | | 1473-5051 Use NIGHT DOSE for | | | | | | | doses scheduled: HS, | | | | | | | Nighttime 1258-4543 If the BG is | | | [...] | | | | | 10/05/19 at 0730, Do not cut | | [...] | | | | | dose on 10/05/19 at 0900 | | AM PDT | | | | + +-------+ +-------+---+---+ +-------+ +-------+---+---+ | Given | 10/05/19 | 20 mg | | | | | 20 9:24 | | | | | | AM PDT | | | | +-------+ +-------+---+---+ +---+---+ | | | +---+---+ + +-------+ +--------+---+---+ | thrombin (recombinant) | Given | 10/04/19 | 5,000 | | | | (RECOTHROM) solution PRN, | | 20 1:31 | Units | | | | Starting 10/04/19 at 1331, | | PM PDT | | | | | Intra-op | | | | | | + +-------+ +--------+---+---+ +---+---+ | | | +---+---+ documented in this encounter
--- OUTSIDE RECORDS SUMMARY | ~2019-11-09 | XMS | Encounter Summary ---
Demographics + + + | Address | [address] | | | [place] [address] | + + + | Home Phone [...] Author + + + | Author | [facility] | | | and [place] | + + + | Organization | [facility] | | | [...] Team Providers + +------+ + | Care Issue Clerk Name | Role | Phone | [...] [address] | | | | | [place], [place] | [place] [address] | | | | | [address] | [phone] | | | | | [phone] | | | +--------+ + + + [...] [place] | | | | | | [address] | | | | | | | | +--------+ + + + + | 01/17/ | Office | Vascular Surgery | Bill Arevalo DNP | | | 2019 | Visit | | [address] | | | | | | [place] | | | | | | [address] | | | | | | | | +--------+ + + + + | 05/22/ | Office | Nephrology | Mariana Cortez W, | | | 2020 | Visit | | [address] | | | | | | [address] | | | | | | [place] [address] | | | | | | [phone] | | | | | | | | +--------+ + + + + documented as of this encounter Procedures + +--------+ + + + | Procedure Name | Priori | Date/Time | Associated Diagnosis | Comments | | | ty | | | | + +--------+ + + + | EXTERNAL LAB: LEVI | Routin | 07/19/2014 | | Results for this | | | e | | | procedure are in the | | | | | | results section. | + +--------+ + + + | EXTERNAL LAB: | Routin | 07/19/2014 | | Results for this | | GLUCOSE | e | | | procedure are in the | | | | | | results section. | + +--------+ + + + | EXTERNAL LAB: | Routin | 07/19/2014 | | Results for this | | ALBUMIN | e | | | procedure are in the | | | | | | results section. | + +--------+ + + + | EXTERNAL LAB: | Routin | 07/19/2014 | | Results for this | | PHOSPHORUS | e | | | procedure are in the | | | | | | results section. | + +--------+ + + + | EXTERNAL LAB: | Routin | 07/19/2014 | | Results for this | | CALCIUM | e | | | procedure are in the | | | | | | results section. | + +--------+ + + + | EXTERNAL LAB: CARBON | Routin | 07/19/2014 | | Results for this | | DIOXIDE | e | | | procedure are in the | | | | | | results section. | + +--------+ + + + | EXTERNAL LAB: | Routin | 07/19/2014 | | Results for this | | CHLORIDE | e | | | procedure are in the | | | | | | results section. | + +--------+ + + + | EXTERNAL LAB: | Routin | 07/19/2014 | | Results for this | | POTASSIUM | e | | | procedure are in the | | | | | | results section. | + +--------+ + + + | EXTERNAL LAB: SODIUM | Routin | 07/19/2014 | | Results for this | | | e | | | procedure are in the | | | | | | results section. | + +--------+ + + + | EXTERNAL LAB: | Routin | 07/19/2014 | | Results for this | | PROTEIN/CREATININE | e | | | procedure are in the | | RATIO | | | | results section. | + +--------+ + + + | EXTERNAL LAB: | Routin | 07/19/2014 | | Results for this | | TRIGLYCERIDES | e | | | procedure are in the | | | | | | results section. | + +--------+ + + + | EXTERNAL LAB: | Routin | 07/19/2014 | | Results for this | | CHOLESTEROL, HDL | e | | | procedure are in the | | | | | | results section. | + +--------+ + + + | EXTERNAL LAB: | Routin | 07/19/2014 | | Results for this | | CHOLESTEROL, TOTAL | e | | | procedure are in the | | | | | | results section. | + +--------+ + + + | EXTERNAL LAB: | Routin | 07/19/2014 | | Results for this | | CHOLESTEROL, LDL | e | | | procedure are in the | | | | | | results section. | + +--------+ + + + | EXTERNAL LAB: EGFR | Routin | 07/19/2014 | | Results for this | | | e | | | procedure are in the | | | | | | results section. | + +--------+ + + + | EXTERNAL LAB: | Routin | 07/19/2014 | | Results for this | | CREATININE | e | | | procedure are in the | | | | | | results section. | + +--------+ + + + documented in this encounter Results External Lab: Protein/Creatinine Ratio (07/19/2014) + +-------+ + + + | Component | Value | Ref Range | Performed | Pathologist | | | | | At | Signature | + +-------+ + + + | Protein/Cre | 4.6 | | EXTERNAL | | | atinine | | | LAB | | | Ratio, | | | | | | External | | | | | + +-------+ + + + + + | Specimen | + + | | + + + +---------+ + + | Performing | Address | City/State/Zipcode | Phone Number | | Organization | | | | + +---------+ + + | EXTERNAL LAB | | | | + +---------+ + + External Lab: LEVI (07/19/2014) + +--------+ + + + | Component | Value | Ref Range | Performed | Pathologist | | | | | At | Signature | + +--------+ + + + | BUN, | 42 (A) | 6 - 23 | EXTERNAL [...] + +---------+ + + External Lab: Glucose (07/19/2014) + +---------+ + + + | Component | Value | Ref Range | Performed | Pathologist | | | | | At | Signature | + +---------+ + + + | Glucose, | 246 (A) | 70 - 100 | EXTERNAL [...] + +---------+ + + External Lab: Albumin (07/19/2014) + +---------+ + + + | Component [...] + +---------+ + + External Lab: Phosphorus (07/19/2014) + +-------+ + + + | Component | Value | Ref Range | Performed | Pathologist | | | | | At | Signature | + +-------+ + + + | Phosphorus, | 3.4 | 2.5 - 5 | EXTERNAL | [...] + +---------+ + + External Lab: Calcium (07/19/2014) + +-------+ + + + | Component | Value | Ref Range | Performed | Pathologist | | | | | At | Signature | + +-------+ + + + | Calcium, | 8.5 | 8.4 - 10.2 | EXTERNAL | [...] +---------+ + + External Lab: Carbon Dioxide (07/19/2014) + +--------+ + + + | Component | Value | Ref Range | Performed | Pathologist | | | | | At | Signature | + +--------+ + + + | Carbon | 18 (A) | 19 - 31 | EXTERNAL | [...] + +---------+ + + External Lab: Chloride (07/19/2014) + +-------+ + + + | Component [...] + +---------+ + + External Lab: Potassium (07/19/2014) + +-------+ + + + | Component | Value | Ref Range | Performed | Pathologist | | | | | At | Signature | + +-------+ + + + | Potassium, | 5.1 | 3.6 - 5.1 | EXTERNAL | [...] + +---------+ + + External Lab: Sodium (07/19/2014) + +-------+ + + + | Component | Value | Ref Range | Performed | Pathologist | | | | | At | Signature | + +-------+ + + + | Sodium, | 133 | 132 - 143 | EXTERNAL | [...] + +---------+ + + External Lab: Triglycerides (07/19/2014) + +---------+ + + + | Component | Value | Ref Range | Performed | Pathologist | | | | | At | Signature | + +---------+ + + + | Triglycerid | 292 (A) | 30 - 150 | EXTERNAL [...] +---------+ + + External Lab: Cholesterol, HDL (07/19/2014) + +-------+ + + + | Component | Value | Ref Range | Performed | Pathologist | | | | | At | Signature | + +-------+ + + + | HDL | 40.8 | 40 mg/dl | EXTERNAL | | | Cholesterol | [...] +---------+ + + External Lab: Cholesterol, Total (07/19/2014) + +---------+ + + + | Component | Value | Ref Range | Performed | Pathologist | | | | | At | Signature | + +---------+ + + + | Cholesterol | 212 (A) | 200 mg/dl | EXTERNAL | | | , Total, [...] +---------+ + + External Lab: Cholesterol, LDL (07/19/2014) + +---------+ + + + | Component | Value | Ref Range | Performed | Pathologist | | | | | At | Signature | + +---------+ + + + | LDL | 113 (A) | 100 | EXTERNAL | | [...] + +---------+ + + External Lab: eGFR (07/19/2014) + +-------+ + + + | Component | Value | Ref Range | Performed | Pathologist | | | | | At | Signature | + +-------+ + + + | eGFR, | 44 | | EXTERNAL | | | External [...] + +---------+ + + External Lab: Creatinine (07/19/2014) + +-------+ + + + | Component | Value | Ref Range | Performed | Pathologist | | | | | At | Signature | + +-------+ + + + | Creatinine, | 1.31 | 0.6 - 1.35 | EXTERNAL | [...]
--- OUTSIDE RECORDS SUMMARY | ~2019-11-09 | XMS | Encounter Summary ---
Demographics + + + | Address | [address] | | | [place] [address] | + + + | Home Phone [...] Team Providers + +------+ + | Care Network Designer Name | Role | Phone | + +------+ + | Alfredo Jacobson PA-C | PCP | | + +------+ + Reason for Visit + + + | Reason | Comments | + + + | New Patient | allergies | + + + Evaluate & Treat (Routine) +--------+--------+ + + + + | Status | Reason | Specialty | Diagnoses / | Referred By | Referred To | | | | | Procedures | Contact | Contact | +--------+--------+ + + + + | Closed | | Otolaryngolog | Diagnoses | [place], | Henok Dean | | | | y | | Alfredo H, | [address] | | | | | allergies/se | PA-C [address] | | | | | lf/[place] | [address] | [place] [address] [place] | | | | | k/[place] | [place] | [place] | | | | | Procedures | [address] | [address] Phone: | | | | | NEW PATIENT | [place], | [phone] | | | | | | [place] | Fax: | | | | | | [address] | [phone] | | | | | | Phone: | | | | | | | [phone] | | | | | | | Fax: | | | | | | | [phone] | | +--------+--------+ + + + + Encounter Details +--------+---------+ + + + | Date | Type | Department | Care Team | Description | +--------+---------+ + + + | 12/27/ | Office | [facility] | Henok Dean MD | Allergic rhinitis | | 2015 | Visit | OTOLARYNGOLOGY [address] | [address] [place] | due to pollen | | | | [address] [address] | [address] [place] | (Primary Dx) | | | | [place] | [address] | | | | | [address] | | | | | | [phone] | | | +--------+---------+ + + + [...] + + | Pulse | 100 | 12/27/2014 1:56 PM | | | | | PST | | + + + + + | Temperature | - | - | | + + + + + | Respiratory Rate | 18 | 12/27/2014 1:56 PM | | | | | PST | | + + + + + | Oxygen Saturation | 98% | 12/27/2014 1:56 PM | | | | | PST | | + + + + + | Inhaled Oxygen | - | - | | | Concentration | | | | + + + + + | Weight | 98.4 kg (217 lb) | 12/27/2014 1:56 PM | | | | | PST | | + + + + + | Height | 160 cm (5' 3") | 12/27/2014 1:56 PM | | | | | PST | | + + + + + | Body Mass Index | 38.44 | 12/27/2014 1:56 PM | | | | | PST | | + + + + + documented in this encounter Progress Notes Henok Dean MD - 12/27/2014 2:37 PM PST [facility] OTOLARYNGOLOGY [address] [facility] [address] OFFICE NOTE HENOK DEAN MD Patient: MARYAM FORTE Admitting: MR #: [id number] LOC: PT TYPE: Adm Date: 12/27/2014 : 1970 NEW PATIENT VISIT DATE OF VISIT: 12/27/2014 The patient comes in for evaluation because of a problem with allergic rhinitis. She take s regular doses of antihistamine. She uses nasal cortisone spray intermittently. She find s that, though, every fall she becomes very sick for about 6 weeks because of severe allerg ic rhinitis. She has the itchy eyes, her nose plugs up, she is congested, she has a lot of drainage, a lot of sneezing and coughing, and feels she may get a little bit short of jessica th, and it sounds like she may have some mild asthma with it. She was sent for considerati on of having allergy testing and treatment. EXAMINATION: GENERAL: The examination shows an alert 44-year-old female patient. She is communicating well. Her voice quality is good. HEENT: Skin of the face, nose, and ears: No mass or le sions or abnormalities were noted. Ear canals are open. They are clean. Drums are clear . There is no middle ear effusion or abnormality noted. Nasal passages: Turbinates are q uite large, particularly on the righthand side. Very limited room for breathing. No polyp s, mass, or lesions were seen on either side. Floor of the mouth, buccal mucosa, hard pal ate, teeth, lips, and gums are healthy. She has upper and lower dentures. No mass seen in the oropharynx, and posterior pharyngeal wall is smooth. Tongue and soft palate are gucci h and move symmetrically. NECK: There are no masses or lymphadenopathy. Thyroid gland is smooth and trachea is midline. Good range of motion of the neck without any pain or disco mfort noted. IMPRESSION: Allergic rhinitis that appears to be prevalent year around, but much worse in the fall months. Discussion was carried out with the patient that the treatment with antihistamines and kamla al cortisone sprays are the medical treatment, but also, allergy testing can be completed. She has been working with the medical treatment and feels she is not doing very well with it and desires to go ahead with allergy treatment. The patient will be tested to see what allergies she has and then decisions made about desensitizing once this has been completed . HENOK DEAN MD Dictated by HENOK DEAN MD 12/27/2014 14:37:04 Transcribed on 12/28/2014 08:58:55 by kelsea wen# [id number] Confirmation #: [id number] cc: ALFREDO JACOBSON PA Henok Jones MD - 12/27/2014 2:33 PM ASHLEYSeramiro dictation #[id number] signed by Mina Dean MD at 12/27/2014 2:37 PM PSTdocumented in this encounter Plan of [...] [place] | | | | | | [address] | | | | | | | | +--------+ + + + + | 01/17/ | Office | Vascular Surgery | Bill Arevalo DNP | | | 2019 | Visit | | [address] | | | | | | [place] | | | | | | [address] | | | | | | | | +--------+ + + + + | 05/22/ | Office | Nephrology | Mariana Cortez W, | | | 2020 | Visit | | [address] | | | | | | [place] [address] | | | | | | [place] [address] | | | | | | [phone] | | | | | | | | +--------+ + + + + documented as of this encounter Visit Diagnoses + + | Diagnosis | + + | Allergic rhinitis due to pollen - Primary | + + documented in this encounter
--- OUTSIDE RECORDS SUMMARY | ~2019-11-09 | XMS | Encounter Summary ---
Demographics + + + | Address | [address] | | | [place] [address] | + + + | Home Phone [...] Author + + + | Author | [facility] | | | and [place] | + + + | Organization | [facility] | | | [...] Team Providers + +------+ + | Care Desk Clerk Name | Role | Phone | [...] | Otolaryngolog | Diagnoses | [place], | [place] | | | Services | y [...] | | | rhinitis due | [place] [address] | [address] Phone: | | | | | to animal | Phone: | [phone] | | | | | (cat) (dog) | [phone] | Fax: | | | | | hair and | Fax: | [phone] | | | | | dander | [phone] | | | | | | Allergic [...] | +--------+ + + + + | 04/22/ | Clinical | [facility] [place] | Henok Luther MD | Allergic rhinitis | | 2016 | Support | OTOLARYNGOLOGY [address] | [address] [place] | due to pollen | | | | [address] | [address] [place] | (Primary Dx); | | | | [place] | [address] | Allergic rhinitis | | | | [address] | | due to animal (cat) | | | | [phone] | | (dog) hair and | | [...] encounter Progress Notes Modesta Benitez RN - 04/23/2015 4:00 PM PDTPatient presents with epi-pen & inhaler . No active wheezing or cough associated with asthma today. Denies delayed reaction from pre vious allergy injection. No fever or allergy related rash. No recent heavy exposure to aller gens. No plans for strenuous exercise immediately before or after injection today.Electronic ally signed by Modesta Benitez RN at 04/23/2015 5:39 PM PDTdocumented in this encoun ter Plan [...] [place] | | | | | | [address] | | | | | | | | +--------+ + + + + | 05/22/ | Office | Nephrology | Mariana Cortez, | | | 2020 | Visit | | [address] | | | | | | [address] [facility] | | | | | | [place] [address] | | | | | | [phone] | | | | | | | | +--------+ + + + + + + +--------+ + + | Name | Type | Priori | Associated Diagnoses | Order Schedule | | | | ty | | | + + +--------+ + + | Ambulatory referral | Outpatient | Routin | Allergic rhinitis | Ordered: 01/18/2015 | | to ENT | Referral | e | due to pollen | | | (immunotherapy) | | | Allergic rhinitis | | [...]
--- OUTSIDE RECORDS SUMMARY | ~2019-11-09 | XMS | Encounter Summary ---
Demographics + + + | Address | [address] | | | [place] [address] | + + + | Home Phone [...] + + + | Author | [facility] | | | and [place] | + + + | Organization | [facility] | | | [...] Team Providers + +------+ + | Care Cushion Cover Inspector Name | Role | Phone | [...] | | | | | | a (HCC) | | | | | | | | | | +--------+--------+ + + + + Encounter Details +--------+ + + + + | Date | Type | Department | Care Team | Description | +--------+ + + + + | 08/17/ Anesthesia | [facility] | Gagandeep Garcia, | | | 2020 | Event | [facility] | INVESTIGATOR NARCOTICS [address] | | | | | INTRA OP [address] | [place] [address] | | | | | BLVD [place], [place] | [phone] | | | | | [address] | | | | | | [phone] | Olu Christina, | | | | | | INVESTIGATOR NARCOTICS [address] | | | | | | BL[address] [place] | | | | | | [address] | | | | | | | | +--------+ + + + + Anesthesia Record + + + + + | Procedure Name | Responsible | Anesthesia Start | Anesthesia Stop Time | | | Anesthesiologist | Time | | + + + + + | EGD (N/A Mouth) | Gaganedep Garcia CRNA | 08/18/19 1145 | 08/18/19 1214 | + + + + + +----+---+ + + | Da | T | Event | Comment | | te | i | | | | | m | | | | | e | | | +----+---+ + + | 07 | 1 | | | | /0 | 1 | | | | 9/ | 3 | | | | 20 | 2 | | | | 20 | | | | +----+---+ + + | | 1 | An Start | Reassessment prior to anesthesia induction/procedure. | | | 1 | | | | | 4 | | | | | 5 | | | +----+---+ + + | | 1 | Preoxygenat | | | | 1 | ed | | | | 4 | | | | | 5 | | | +----+---+ + + | | 1 | Pre-Procedu | | | | 1 | ral Timeout | | | | 4 | Completed | | | | 7 | | | +----+---+ + + | | 1 | First | | | | 1 | Inc/Proc St | | | | 4 | | | | | 9 | | | +----+---+ + + | | 1 | An | | | | 1 | Induction | | | | 4 | | | | | 9 | | | +----+---+ + + | | 1 | Breathing | | | | 1 | Spontaneous | | | | 4 | ly | | | | 9 | | | +----+---+ + + | | 1 | an stop | | | | 2 | data | | | | 1 | | | | | 4 | | | +----+---+ + + | | 1 | An Stop | Patient handed off to recovery nurse. | | | 1 | | | | | 4 | | | +----+---+ + + +------+ | Meds | +------+ + + + | Name | Total | + + + | lidocaine 2% | 100 mg | + + + | propofol | 120 mg | + + + | glucagon | 2 mg | + + + | propofol infusion | 137.61 mg | + + + | sodium chloride 0.9% (NS) | 300 mL | | infusion | | + + + + + | Name | + + | N2O Flow Rate (L/Min) | + + | O2 Flow Rate (L/Min) | + + | Insp O2 | + + | Exp N2O | + + | Air Flow Rate (L/Min) | + + | Secondary O2 Flow Rate | + + + + | No blood administrations on file. | + + +--------+ + + + | Type | Details | Placement | Removal | +--------+ + + + | PICC | 08/17/19 (unknown when it was | 08/17/191650 by | | | Single | inserted. in situ o/a to er); | Aleyda Olson, | | | Lumen | 1651 | RN | | +--------+ + + + | Brace/ | 08/17/19; 2227; walking | 08/17/192227 by | | | Orthot | cast/shoe; right; foot | Laura Alston | | | ic/Ort | | ZULAY Castillo | | | hosis | | | | +--------+ + + + | Wound | 08/17/19; 2228; Y; Diabetic ulc; | 08/17/192228 by | | | | Right; foot; Other (Wrapped ) | Laura Alston | | | | | ZULAY Castillo | | +--------+ + + + | Periph | 08/17/19; 2231; Right; Posterior | 08/17/192231 by | 08/19/19 120 by | | eral | (dorsal); Hand; 20 gauge; | Laura Alston | Rosa Cain RN | | IV | expected removal post discharge; | ZULAY Castillo | | | | 08/19/19; 1201 | | | +--------+ + + + [...] encounter OR Notes Anesthesia Postprocedure Evaluation - Olu Christina CRNA - 08/18/2019 12:16 PM PDTFo rmatting of this note might be different from the original. ANESTHESIA POSTANESTHESIA EVALUATION July Forte 49 y.o. female 1970 [id number] Procedure(s) EGD (N/A Mouth) Cooperates? Yes Mental Status Performs simple tasks. Respiratory Satisfactory - Airway patent (self maintained). Cardiovascular Satisfactory - Blood pressure and heart rate acceptable Temperature Satisfactory Pain Satisfactory N/V Control Satisfactory Hydration Satisfactory - No signs of dehydration Adverse Events ADVERSE EVENTS: No adverse events Vitals Value Taken Time Temp 97.5 Pulse 92 Resp 25 BP 89/45 Arterial Line BP Arterial Line BP 2 SpO2 100% Electronically signed by Olu Christina CRNA 08/18/2019 12:16 PM PDT [facility] Olu Christina CRNA at 10/2019 12:17 PM PDTAnesthesia Preprocedure Evaluation - Olu Christina CRNA - 08/18/19 7:01 AM PDT ANESTHESIA PREANESTHESIA EVALUATION July Forte 49 y.o. female 1970 [id number] Procedure(s): EGD (N/A Mouth) Medical,anesthesia, drug, allergy histories reviewed, NPO status verified. Labs reviewed. (-) perioperative beta-salma/statin not given/taken, reason: hypotension. Review of Systems / Med History Anesthesia History (+) previous surgery or anesthesia. Cardiovascular Exercise tolerance >4 METS (+) hypertension . Pulmonary (+) Chronic Obstructive Pulmonary Disease.(+) sleep apnea.(+) asthma.(+) tobacco use.(+) cu rrent smoker. Stop Bang Score: 5. Gastrointestinal/Hepatic (+) peptic ulcer disease: Renal (+) chronic renal insufficiency. Endocrine (+) obesity: BMI (30-39) (+) Diabetes: type 2, uncontrolled (Hgb A1C >= 6.5). Hematology/Other (+) anemia: blood loss. Obstetrics (+) proteinuria. Neuromuscular (+) history of headaches. Additional Comments: Type 2 diabetes mellitus with stage 3 chronic kidney disease, without long-term current use of insulin (HCC) Hypertension Proteinuria CKD (chronic kidney disease) stage 3, GFR 30-59 ml/min (HCC) Migraine headache Renal tubular acidosis, type 4 Smoker - Daily Obesity (BMI 35.0-39.9 without comorbidity) Duodenal ulcer Allergic asthma Organic insomnia MARYURI (obstructive sleep apnea) RLS (restless legs syndrome) Acute blood loss anemia History of anemia due to CKD Occult blood in stools History of duodenal ulcer Upper GI bleeding Physical Exam Airway MP II, TM >3 FB, Mouth opening >2 FB. Neck: full ROM, extends >30 degrees. Jaw protrus ion normal. Facial hair present: No Dental grossly normal except where noted below. (+) dentures-upper. CV cardiovascular normal Rhythm regular. Rate normal. Pulm Clear to auscultation bilaterally. Neuro grossly normal. Anesthesia Plan ASA: 3 Type: General. Discussed with patient that anesthesia is a spectrum from minimal to deep s edation to general anesthesia. Patient seems to understand. Risks and benefits discussed w ith patient. Induction: Intravenous. Potential problems: None anticipated. Monitors: Standard ASA monitors. Consent statement: Anesthetic plan, alternatives, risks and benefits discussed with patient. backache, blindne ss, , discussed risks to teeth, disability, drug reaction, heart problems, ICU placemen t, infection, muscle aches, nausea, pain, perioperative CV events, post-op intubation, respi ratory events, sore throat, stroke, voice injury, delirium Blood transfusion concerns: None. Consenting person understands and agrees to proceed. Discussed plan with MIKE. documented in t his encounter Miscellaneous Notes Anesthesia Post-op Handoff - Olu Christina CRNA - 08/18/2019 12:15 PM PDT ANESTHESIA HANDOFF NOTE July Forte 49 y.o. female 1970 [id number] EGD (N/A Mouth) HANDOFF NOTE Handoff Protocol Used: post-procedure handoff checklist completed The following were completed during the transfer of care: 1. Identification of patient 2. Identification of responsible practitioner (primary service) 3. Discussion of pertinent medical history 4. Discussion of the surgical/procedure course (procedure, reason for surgery, procedure pe rformed) 5. Intraoperative anesthetic management and issues/concerns 6. Expectations/plans for the early post-procedure period 7. Opportunity for questions and acknowledgement of understanding of report from receiving team Patient Location: Phase II Condition: responds to stimuli and awake Airway/O2: no supplemental O2 Multimodal analgesia: multimodal analgesia not used between 6 hours prior to anesthesia sta rt to PACU discharge Multimodal analgesia not used reason: A medical reason exists for NOT using multimodal anal gesia. Two or more MARYURI mitigation strategies used: perioperative obstructive sleep apnea intervent ions applied The significant anesthesia concerns and VS in Epic were reviewed with the receiving team. Olu Christina CRNA 08/18/2019 12:15 PM PDT [facility] Olu Christina CRNA at 10/2019 12:15 PM PDTdocumented in this encounter Plan of [...] [place] | | | | | | [address] | | | | | | | | +--------+ + + + + | 01/17/ | Office | Vascular Surgery | Bill Arevalo DNP | | | 2019 | Visit | | [address] | | | | | | [place] | | | | | | [address] | | | | | | | | +--------+ + + + + | 05/22/ | Office | Nephrology | Mariana Cortez, | | | 2020 | Visit | | [address] | | | | | | [address] [place] | | | | | | [place] [address] | | | | | | [phone] | | | | | | | | +--------+ + + + + documented as of this encounter Visit Diagnoses Not on filedocumented in this encounter Administered Medications + +--------+ +--------+------+------+ | Medication Order | MAR | Action | Dose | Rate | Site | | | Action | Date | | | | + +--------+ +--------+------+------+ | glucagon (GLUCAGEN) injection | Given | 08/18/19 | 0.5 mg | | | | Intravenous, PRN, Starting Winsome | | 20 12:10 | | | | | 08/18/19 at 1154, Anesthesia | | PM PDT | | | | | Intra-op | | | | | | + +--------+ +--------+------+------+ +-------+ +--------+---+---+ | Given | 08/18/19 | 0.5 mg | | | | | 20 12:06 | | | | | | PM PDT | | | | +-------+ +--------+---+---+ | Given | 08/18/19 | 0.5 mg | | | | | 20 11:56 | | | | | | AM PDT | | | | +-------+ +--------+---+---+ +---+---+ | | | +---+---+ + +-------+ +--------+---+---+ | lidocaine (PF) 2% injection | Given | 08/18/19 | 100 mg | | | | Intravenous, PRN, Starting Winsome | | 20 11:49 | | | | | 08/18/19 at 1150, Anesthesia | | AM PDT | | | | | Intra-op | | | | | | + +-------+ +--------+---+---+ +---+---+ | | | +---+---+ + +-------+ +-------+---+---+ | propofol (DIPRIVAN) injection | Given | 08/18/19 | 20 mg | | | | Intravenous, PRN, Starting Winsome | | 20 11:52 | | | | | 08/18/19 at 1149, Anesthesia | | AM PDT | | | | | Intra-op | | | | | | + +-------+ +-------+---+---+ +-------+ +-------+---+---+ | Given | 08/18/19 | 40 mg | | | | | 20 11:51 | | | | | | AM PDT | | | | +-------+ +-------+---+---+ | Given | 08/18/19 | 60 mg | | | | | 20 11:49 | | | | | | AM PDT | | | | +-------+ +-------+---+---+ +---+---+ | | | +---+---+ + + + + +-------+---+ | propofol infusion (DIPRIVAN) 10 | Rate/Dos | 08/18/19 | 100 | 56.9 | | | mg/mL infusion Intravenous, | e Change | 20 12:07 | mcg/kg/m | mL/hr | | | CONTINUOUS PRN, Starting Winsome | | PM PDT | in | | | | 08/18/19 at 1201, Anesthesia | | | | | | | Intra-op | | | | | | + + + + +-------+---+ +---------+ + +-------+---+ | New Bag | 08/18/19 | 125 | 71.2 | | | | 20 12:01 | mcg/kg/m | mL/hr | | | | PM PDT | in | | | +---------+ + +-------+---+ +---+---+ | | | +---+---+ + + [...]
--- OUTSIDE RECORDS SUMMARY | ~2019-11-09 | XMS | Encounter Summary ---
Demographics + + + | Address | [address] | | | [place] [address] | + + + | Home Phone [...] + + + | Author | [facility] | | | and [place] | + + + | Organization | [facility] | | | [...] Team Providers + +------+ + | Care Hazardous Materials Waste Technician Name | Role | Phone | [...] | +--------+ + + + + | 07/16/ | Clinical | [facility] [place] | Mehrdad Thomas MD | Non-seasonal | | 2017 | Support | OTOLARYNGOLOGY [address] | [address], [place] | allergic rhinitis | | | | [address] | [address] [facility], [place] | due to pollen | | | | [place] | [address] | (Primary Dx); | | | | [address] | | Allergic rhinitis | | | | [phone] | | due to dust mite; | [...] encounter Progress Notes Modesta Benitez RN - 07/16/2017 4:00 PM PDTFormatting of this note might [...] Mixed immunotherapy treatment vial for patient on 07/09/17. [facility] Sapna Forte Weeds & Grass: 86 07/16/2017 Allergen Extract Amount/ml Dilution Lot # Expiration Date Ragweed Mix Pigweed 0.2 C 126295 02/01/20 Kochia 0.2 C 399417 04/04/20 Humphrey's Quarter 0.2 C 118681 04/04/20 Luther Elder 0.2 C 346622 05/11/20 Citizen Of [place] Plantain 0.2 C 705953 04/04/20 False Ragweed 0.2 C 547883 05/11/20 Fijian Thistle 0.2 C 452010 05/11/20 Sagebrush 0.2 C 002029 05/11/20 Sheep Donnellson Dandelion 0.2 C 536516 03/17/20 Atriplex Mix 0.2 C 414801 05/11/20 #7 Grass Mix 0.2 C 837634 02/16/19 Bermuda Grass 0.2 C [id number] 03/14/20 Sameer Grass 0.2 C 243877 11/30/19 Adair 0.2 C 672564 04/04/20 Total Allergens: 2.8 ml. Saline: 0.2 ml. [...] [address] | | | | | | [place], [place] | | | | | | [address] | | | | | | | | +--------+ + + + + | 05/22/ | Office | Nephrology | Mariana Cortez, | | | 2020 | Visit | | MD [address] | | | | | | [address] [place] | | | | | | [place] [address] | | | | | | [phone] | | | | | | | [...]
--- OUTSIDE RECORDS SUMMARY | ~2019-11-09 | XMS | Encounter Summary ---
Demographics + + + | Address | [address] | | | [place] [address] | + + + | Home Phone [...] Team Providers + +------+ + | Care Coordinate Measuring Machine Technician Name | Role | Phone | [...] | | | rhinitis due | [place] [address] | [address] Phone: | | | | | to animal | Phone: | [phone] | | | | | (cat) (dog) | [phone] | Fax: | | | | | hair and | Fax: | [phone] | | | | | dander | [phone] | | | | | | Allergic [...] | +--------+ + + + + | 05/06/ | Clinical | [facility] [place] | Henok Luther MD | Allergic rhinitis | | 2016 | Support | OTOLARYNGOLOGY [address] | [address] [place] | due to pollen | | | | [address] | [address] [place] | (Primary Dx); | | | | [place] | [address] | Allergic rhinitis | | | | [address] | | due to animal (cat) | | | | [phone] | | (dog) hair and | | [...] encounter Progress Notes Modesta Benitez RN - 05/07/2015 4:07 PM PDTPatient presents with epi-pen & inhaler . No active wheezing or cough associated with asthma today. Denies delayed reaction from pre vious allergy injection. No fever or allergy related rash. No recent heavy exposure to aller gens. No plans for strenuous exercise immediately before or after injection today.Electronic ally signed by Modesta Benitez RN at 05/07/2015 4:49 PM PDTdocumented in this encoun ter Plan [...] [place] | | | | | | [address] | | | | | | | | +--------+ + + + + | 05/22/ | Office | Nephrology | Mariana Cortez, | | | 2020 | Visit | | MD Constantine [address] | | | | | | [address] [place] | | | | | | [place] [address] | | | | | | [phone] | | | | | | | [...]
--- OUTSIDE RECORDS SUMMARY | ~2019-11-09 | XMS | Encounter Summary ---
Demographics + + + | Address | [address] | | | [place] [address] | + + + | Home Phone [...] Author + + + | Author | [facility] | | | and [place] | + + + | Organization | [facility] | | | and [...] Team Providers + +------+ + | Care Inside Polisher Name | Role | Phone | + +------+ + | Mehrdad Avalos MD | PCP | | + +------+ + Reason for Visit + + + | Reason | Comments | + + + | CPAP Follow Up | | + + + Evaluate & Treat (Routine) +--------+--------+ + + + + | Status | Reason | Specialty | Diagnoses / | Referred By | Referred To | | | | | Procedures | Contact | Contact | +--------+--------+ + + + + | Closed | | Internal | Diagnoses | Robbie, | Lemuel | | | | Medicine - | Obstructive | Mehrdad | Karthikeyan Moura | | | | Sleep | sleep apnea | MD Ck | MD [address] | | | | Medicine / | (adult) | [address] [address] | [address] | | | | Sleep | (pediatric) | [place] | [address] | | | | Medicine | CPAP FOLLOW | [place], | [place] | | | | | [place] | [place] [address] | [address] Phone: | | | | | TO TOLERATE | Phone: | [phone] | | | | | CPAP PER | [phone] | Fax: | | | | | [place] | Fax: | [phone] | | | | | Procedures | [phone] | | | | | | OFFICE VISIT | | | | | | | REGULAR | | | +--------+--------+ + + + + Encounter Details +--------+---------+ + + + | Date | Type | Department | Care Team | Description | +--------+---------+ + + + | 03/21/ | Office | [facility] | Karthikeyan Hdez | MARYURI (obstructive | | 2020 | Visit | SLEEP DISORDER [address] | [address] | sleep apnea) | | | | [address] | (Primary Dx) | | | | [place] [address] | [place] [address] | | | | | [phone] | [phone] | | | | | | | [...] + + + | Blood Pressure | 130/80 | 03/21/2019 10:35 AM | | | | | PST | | + + + + + | Pulse | 93 | 03/21/2019 10:35 AM | | | | | PST | | + + + + + | Temperature | - | - | | + + + + + | Respiratory Rate | 16 | 03/21/2019 10:35 AM | | | | | PST | | + + + + + | Oxygen Saturation | 94% | 03/21/2019 10:35 AM | | | | | PST | | + + + + + | Inhaled Oxygen | - | - | | | Concentration | | | | + + + + + | Weight | 92.6 kg (204 lb 2.3 | 03/21/2019 10:35 AM | | | | oz) | PST | | + + + + + | Height | - | - | | + + + + + | Body Mass Index | 35.04 | 03/09/2019 2:08 PM | | | | | PST | | + + + + + documented in this encounter Progress Notes Karthikeyan Hdez Jr., MD - 03/21/2019 10:30 AM PSTHome sleep apnea testing was performed De 2018 which demonstrated an RDI of 9.8 and an oxygen ronn saturation of 83%. Res Med air since auto titrating CPAP unit 4 to 15 cm has been prescribed. She has worn this for 1 out of the last 12 days and when she works she only works for 1 minute. The patient states that she can get the mask on but as soon as she turns the pressure on she gets panic stricken and feels that she is suffocating and cannot breathe. She states she is really tri ed to wear the CPAP but just cannot do it even in the daytime. He has minimal symptoms of d aytime fatigue or sleepiness. BP 130/80 | Pulse 93 | Resp 16 | Wt 92.6 kg (204 lb 2.3 oz) | SpO2 94% | BMI 35.04 kg/ m A: MARYURI: The patient has mild to moderate obstructive sleep apnea with mild oxygen desaturat ion. Rather than continuing with CPAP I am going to suggest that we switch her to an oral a ppliance to see if this might help. If it does not then we will have to get more aggressive with desensitization techniques and CPAP. If this still is difficult for her to wear, at t hat point I would like to obtain full diagnostic polysomnography to fully assess the severit y of her apnea. P: We will discontinue CPAP today. Will refer to Dr. Evelyn Reyes for consideration of or al appliance therapy. Today, 15 minutes was spent face to face with the patient; the majority of time was spent c ounseling regarding MARYURI and alternative treatment to CPAP. documented in th is encounter Plan of [...] [place] | | | | | | [address] | | | | | | | | +--------+ + + + + | 05/22/ | Office | Nephrology | Mariana Cortez, | | | 2020 | Visit | | [address] | | | | | | [address] [place] | | | | | | [place] [address] | | | | | | [phone] | | | | | | | | +--------+ + + + + documented as of this encounter Visit Diagnoses + + | Diagnosis | + + | MARYURI (obstructive sleep apnea) - Primary Obstructive sleep apnea (adult) (pediatric) | + + documented in this encounter"
--- OUTSIDE RECORDS SUMMARY | ~2019-11-09 | XMS | Encounter Summary ---
Demographics + + + | Address | [address] | | | [place] [address] | + + + | Home Phone [...] Team Providers + +------+ + | Care Lace Roller Name | Role | Phone | + +------+ + | Ronel Jacobson PA-C | PCP | | + +------+ + Encounter Details +--------+ + + + + | Date | Type | Department | Care Team | Description | +--------+ + + + + | 11/12/ | Episode | [facility] [place] | Marguerite Rangel | | | 2017 | Changes | OTOLARYNGOLOGY [address] | M, Tapering Machine Operator | | | | | [address] [facility] [address] | | | | | | [place] | | | | | | [address] | | | | | | [phone] | | | +--------+ + + + [...] [place] | | | | | | [address] | | | | | | | | +--------+ + + + + | 01/17/ | Office | Vascular Surgery | Bill Arevalo DNP | | | 2019 | Visit | | [address] | | | | | | [place] | | | | | | [address] | | | | | | | | +--------+ + + + + | 05/22/ | Office | Nephrology | Mariana Cortez W, | | | 2020 | Visit | | [address] | | | | | | [address] [place] | | | | | | [place] [address] | | | | | | [phone] | | | | | | | | +--------+ + + + + documented as of this encounter Visit Diagnoses Not on filedocumented in this encounter"
--- OUTSIDE RECORDS SUMMARY | ~2019-11-09 | XMS | Encounter Summary ---
Demographics + + + | Address | [address] | | | [place] [address] | + + + | Home Phone [...] Team Providers + +------+ + | Care Fence Maker Name | Role | Phone | + +------+ + | Mehrdad Avalos MD | PCP | | + +------+ + Reason for Visit +---------+--------+ + | Reason | Onset | Comments | | | Date | | +---------+--------+ + | Results | 08/16/ | | | | 2019 | | +---------+--------+ + Encounter Details +--------+ + + + + | Date | Type | Department | Care Team | Description | +--------+ + + + + | 08/16/ | Telephone | [facility] | Louie Henry, | Results | | 2019 | | INFECTIOUS DISEASE | Carmine Kebede MD | | | | | [address] | [address] | | | | | [place], [place] | [place] [address] | | | | | [address] | [phone] | | | | | [phone] | | | +--------+ + + + [...] this encounter Miscellaneous Notes Telephone Encounter - Joanna Alfonso Medical Assistant - 08/17/2019 10:42 AM PDTPatient not ified and is heading to ER, probably be there in about and hour and a half to be evaluated i n ER. Joanna Alfonso. CMA elephone Encounter - Joanna Alfonso Medical Assistant - 08/17/2019 10:36 AM PD TCalled patient, unable to reach. Called sister, she is going to contact her and let her kn ow to contact the office. Joanna Alfonso. CMA elephone Encounter - Joanna Alfonso Medical Assistant - 9:09 AM PDTInterpath labs called about a critical lab. HCT 16.9 HGB 5.4 Patient has apt scheduled today. Joanna Alfonso. CMA documented in this encounter Plan of Treatment +--------+ + + + + | Date | Type | Specialty | Care Team | Description | +--------+ + + + + | 01/17/ | Appointment | Radiology | Bill Arevalo DNP | | | 2019 | | | [address] | | | | | | [place] | | | | | | [address] | | | | | | | | +--------+ + + + + | 01/17/ | Office | Vascular Surgery | Bill Arevalo DNP | | | 2019 | Visit | | [address] | | | | | | [place] | | | | | | [address] | | | | | | | | +--------+ + + + + | 05/22/ | Office | Nephrology | Mariana Cortez, | | | 2020 | Visit | | [address] | | | | | | [address] [place] | | | | | | [place] [address] | | | | | | [phone] | | | | | | | | +--------+ + + + + documented as of this encounter Visit Diagnoses Not on filedocumented in this encounter"
--- OUTSIDE RECORDS SUMMARY | ~2019-11-09 | XMS | Encounter Summary ---
Demographics + + + | Address | [address] | | | [place] [address] | + + + | Home Phone [...] + + + | Author | [facility] | | | and [place] | + + + | Organization | [facility] | | [...] Team Providers + +------+ + | Care Recruitment Intern Name | Role | Phone | [...] | +--------+ + + + + | 03/19/ | Clinical | [facility] [place] | Henok Luther MD | Extrinsic asthma, | | 2018 | Support | [address]ARYNGOLOGY [address] | [address] | unspecified asthma | | | | [address] | [address] [place], [place] | severity, | | | | [place], [place] | [address] | unspecified whether | | | | [address] | | complicated, | | | | [phone] | | unspecified whether | | | [...] encounter Progress Notes Domenica Meredith RN - 03/19/2017 3:15 PM PSTPatient presents with epi-pen & inhaler. No ac tive wheezing or cough associated with asthma today. Denies delayed reaction from previous a llergy injection. No fever or allergy related rash. No recent heavy exposure to allergens. N o plans for strenuous exercise immediately before or after injection today.Electronically si gned by Domenica Meredith RN at 03/19/2017 3:35 PM PSTdocumented in this encounter Plan of [...] [place] | | | | | | [address] | | | | | | | | +--------+ + + + + | 01/17/ | Office | Vascular Surgery | Bill Arevalo DNP | | | 2019 | Visit | | [address] | | | | | | [place] | | | | | | [address] | | | | | | | | +--------+ + + + + | 05/22/ | Office | Nephrology | Mariana Cortez, | | | 2020 | Visit | | MD Constantine GARZA | | | | | | [address] [place] | | | | | | [place] [address] | | | | | | [phone] | | | | | | | [...]
--- OUTSIDE RECORDS SUMMARY | ~2019-11-09 | XMS | Encounter Summary ---
Demographics + + + | Address | [address] | | | [place] [address] | + + + | Home Phone | | + + + | Preferred Language | Unknown | + + + | Marital Status | Single | + + + | Tenriism Affiliation | Unknown | + + + [...] Team Providers + +------+ + | Care Talent Acquisition Manager Name | Role | Phone | [...] | | | | to pollen | [place] [address] | [address] Phone: | | | | | Allergic | Phone: | [phone] | | | | | rhinitis due | [phone] | Fax: | | | | | to dust | Fax: | [phone] | | | | | Mild | [phone] | | | | | | intermittent [...] | +--------+ + + + + | 11/04/ | Clinical | [facility] | Henok Luther MD | Mild intermittent | | 2018 | Support | [address]OLARYNGOLOGY [address] | [address] | asthma, | | | | [address] | [address] [place] | uncomplicated | | | | [place] | [address] | (Primary Dx); | | | | [address] | | Non-seasonal | | | | [phone] | | allergic rhinitis | | | [...] encounter Progress Notes Modesta Benitez RN - 11/04/2017 2:00 PM PDTFormatting of this note might be differ ent from the original. Mixed immunotherapy treatment vial for patient on 10/20/17. TREATMENT SET Lowella Sapna Forte Weeds & Grass: 86 11/04/2017 Allergen Extract Amount/ml Dilution Lot # Expiration Date Ragweed Mix Pigweed 0.2 C [id number] 07/18/20 Kochia 0.2 C 227826 08/22/20 Humphrey's Quarter 0.2 C 924465 08/08/20 Luther Elder 0.2 C 615909 09/27/20 Solomon Islander Plantain 0.2 C 473416 10/04/20 False Ragweed 0.2 C 347321 05/11/20 Nauruan Thistle 0.2 C 684419 05/11/20 Sagebrush 0.2 C 715639 09/27/20 Sheep [place] Dandelion 0.2 C 355548 07/04/20 Atriplex Mix 0.2 C 910324 05/11/20 #7 Grass Mix 0.2 C 501011 02/16/19 Bermuda Grass 0.2 C [id number] 02/27/21 Sameer Grass 0.2 C 782162 05/11/20 Titus 0.2 C 869229 08/22/20 Total Allergens: 2.8 ml. Saline: 0.2 ml. Total Volume: 3.0 ml. Gina Morrison RN - 11/04/2017 2:00 PM PDTPatient presents with epi-pen & inhaler. No active whe ezing or cough associated with asthma today. Denies delayed reaction from previous allergy i njection. No fever or allergy related rash. No recent heavy exposure to allergens. No plans for strenuous exercise immediately before or after injection today. documented in this encounter Plan of Treatment +--------+ + + + + | Date | Type | Specialty | Care Team | Description | +--------+ + + + + | 01/17/ | Appointment | Radiology | Bill Arevalo DNP | | | 2019 | | | [address] | | | | | | [place] | | | | | | [address] | | | | | | | | +--------+ + + + + | 01/17/ | Office | Vascular Surgery | Bill Arevalo DNP | | | 2019 | Visit | | [address] | | | | | | [place] | | | | | | [address] | | | | | | | | +--------+ + + + + | 05/22/ | Office | Nephrology | Mariana Cortez, | | | 2020 | Visit | | MD [address] | | | | | | [address] [place] | | | | | | [place] [address] | | | | | | [phone] | | | | | | | [...]
--- OUTSIDE RECORDS SUMMARY | ~2019-11-09 | XMS | Encounter Summary ---
Demographics + + + | Address | [address] | | | [place] [address] | + + + | Home Phone [...] Author + + + | Author | [facility] | | | and [place] | + + + | Organization | [facility] | | [...] Team Providers + +------+ + | Care Sprayer Leather Name | Role | Phone | + [...] | | | | severity, | [place] [address] | [address] Phone: | | | | | uncomplicate | Phone: | [phone] | | | | | d | [phone] | Fax: | | | | | Non-seasonal | Fax: | [phone] | | | | | allergic | [phone] | | | | | | rhinitis due | | | | | | | to pollen | | | | | | | Procedures | | | | | | | NE | | | | | | | IMMUNOTHERAP | | | | | | | Y, ONE | | | | | | | INJECTION | | | | | | | NE | | | | | | | IMMUNOTHERAP | | | | | | | Y, 2+ | | | | | | | INJECTIONS | | | | | | | NE PROFES | | | | | | [...] | +--------+ + + + + | 03/13/ | Clinical | [facility] [place] | [place], | Non-seasonal | | 2017 | Support | OTOLARYNGOLOGY [address] | [address] | allergic rhinitis | | | | [address] | [address] | due to pollen | | | | [place] | [place] | (Primary Dx); | | | | [address] | [id number] | Allergic rhinitis | | | | [phone] | | due to animal (cat) | [...] encounter Progress Notes Modesta Benitez RN - 03/13/2016 11:03 AM PSTPatient presents with epi-pen & inhaler . No active wheezing or cough associated with asthma today. Denies delayed reaction from pre vious allergy injection. No fever or allergy related rash. No recent heavy exposure to aller gens. No plans for strenuous exercise immediately before or after injection today.Electronic ally signed by Modesta Benitez RN at 03/13/2016 11:39 AM PSTdocumented in this encoun ter Plan of [...] [place] | | | | | | [address] | | | | | | | | +--------+ + + + + | 01/17/ | Office | Vascular Surgery | Bill Arevalo DNP | | 2019 | Visit | | [address] | | | | | | [place] | | | | | | [address] | | | | | | | | +--------+ + + + + | 05/22/ | Office | Nephrology | Dana Mariana Melita, | | | 2020 | Visit | | [address] | | | | | | [address] [place] | | | | | | [place] [address] | | | | | | [phone] | | | | | | | [...]
--- OUTSIDE RECORDS SUMMARY | ~2019-11-09 | XMS | Encounter Summary ---
Demographics + + + | Address | [address] | | | [place] [address] | + + + | Home Phone [...] Providers + +------+ + | Care Pilot [employer] Patrol Name | Role | Phone | + [...] | | | rhinitis due | [place] [address] | [address] Phone: | | | | | to animal | Phone: | [phone] | | | | | (cat) (dog) | [phone] | Fax: | | | | | hair and | Fax: | [phone] | | | | | dander | [phone] | | | | | | Allergic [...] | +--------+ + + + + | 07/01/ | Clinical | [facility] [place] | Henok Luther MD | Allergic rhinitis | | 2016 | Support | [address]ARYNGOLOGY [address] | [address] | due to pollen | | | | [address] | [place] | (Primary Dx); | | | | [place] | [address] | Allergic rhinitis | | | | [address] | | due to animal (cat) | | | | [phone] | | (dog) hair and | | [...] encounter Progress Notes Modesta Benitez RN - 07/02/2015 3:58 PM PDTPatient presents with epi-pen & inhaler . No active wheezing or cough associated with asthma today. Denies delayed reaction from pre vious allergy injection. No fever or allergy related rash. No recent heavy exposure to aller gens. No plans for strenuous exercise immediately before or after injection today.Electronic ally signed by Modesta Benitez RN at 07/02/2015 4:59 PM PDTdocumented in this encoun ter Plan [...] [place] | | | | | | [id number] | | | | | | | | +--------+ + + + + | 01/17/ | Office | Vascular Surgery | Bill Arevalo DNP | | | 2019 | Visit | | [address] | | | | | | [place] | | | | | | [address] | | | | | | | | +--------+ + + + + | 05/22/ | Office | Nephrology | Mariana Cortez, | | | 2020 | Visit | | [address] | | | | | | [address] [place] | | | | | | [place] [address] | | | | | | [phone] | | | | | | | [...]
--- OUTSIDE RECORDS SUMMARY | ~2019-11-09 | XMS | Encounter Summary ---
Demographics + + + | Address | [address] | | | [place] [address] | + + + | Home Phone [...] Providers + +------+ + | Care Meat Team Lead Name | Role | Phone | + [...] | | | rhinitis due | [place] [address] | [address] Phone: | | | | | to animal | Phone: | [phone] | | | | | (cat) (dog) | [phone] | Fax: | | | | | hair and | Fax: | [phone] | | | | | dander | [phone] | | | | | | Allergic | | | | | | | rhinitis due | | | | | | | to dust | | | | | | | Procedures | | | | | | | [place] | | | | | | | IMMUNOTHERAP | | | | | | | Y, ONE | | | | | | | INJECTION | | | | | | | [place] | | | | | | | IMMUNOTHERAP | | | | | | | Y, 2+ | | | | | | | INJECTIONS | | | | | | | [place] PROFES | | | | | | [...] + | 11/04/ | Clinical | [facility] [place] | Henok Luther MD | Uncomplicated | | 2016 | Support | OTOLARYNGOLOGY [address] | [address] | asthma, unspecified | | | | [address] | [place] | asthma severity | | | | [place] | [address] | (Primary Dx); | | | | [address] | | Allergic rhinitis | | | | [phone] | | due to animal (cat) | | | | | | (dog) hair and | | | | | | dander; Allergic | | | | | | rhinitis due to dust | | | | | | mite; Seasonal | | | | | | allergic [...] encounter Progress Notes Modesta Benitez RN - 11/05/2015 1:16 PM PDTPatient presents with epi-pen & inhaler . No active wheezing or cough associated with asthma today. Denies delayed reaction from pre vious allergy injection. No fever or allergy related rash. No recent heavy exposure to aller gens. No plans for strenuous exercise immediately before or after injection today. Patient s tates just lately she's started having post nasal drip every morning so much she chokes and coughs. Suggested taking allergy pill everyday. She states she will start taking the isabel daily. document ed in this encounter Plan of [...] [place] | | | | | | [address] | | | | | | | | +--------+ + + + + | 05/22/ | Office | Nephrology | Mariana Cortez, | | | 2020 | Visit | | [address] | | | | | | [address] [place] | | | | | | [place] [address] | | | | | | [phone] | | | | | | | | +--------+ + + + + documented as of this encounter Visit Diagnoses + + | Diagnosis | + + | Uncomplicated asthma, unspecified asthma severity - Primary | + + | Allergic rhinitis due to animal (cat) (dog) hair and dander | + + | Allergic rhinitis due to dust mite | + + | Seasonal allergic rhinitis due to pollen | + + documented in this encounter"
--- OUTSIDE RECORDS SUMMARY | ~2019-11-09 | XMS | Encounter Summary ---
Demographics + + + | Address | [address] | | | [place] [address] | + + + | Home Phone [...] Team Providers + +------+ + | Care Soup Person Name | Role | Phone | + +------+ + | oRnel Jacobson PA-C | PCP | | + [...] | Services | y | Allergic | Hneok Calix MD | [address] | | | Required | | rhinitis due | [address] | | | | | to pollen | [address] | [address] [place] | | | | | Allergic | [place], | [place], [place] | | | | | rhinitis due | [place] [address] | [address] Phone: | | | | | to animal | Phone: | [phone] | | | | | (cat) (dog) | [phone] | Fax: | | | | | hair and | Fax: | [phone] | | | | | dander | [phone] | | | | | | Allergic [...] | +--------+ + + + + | 01/30/ | Clinical | [facility] [place] | Henok Luther MD | Asthmatic | | 2016 | Support | OTOLARYNGOLOGY [address] | [address] | bronchitis, | | | | [address] | [address] [place], [place] | unspecified asthma | | | | [place], [place] | [address] | severity, | | | | [address] | | uncomplicated | | | | [phone] | | (Primary Dx); | | | | | | Allergic [...] encounter Progress Notes Modesta Benitez RN - 01/31/2016 3:23 PM PSTPatient presents with epi-pen & inhaler . No active wheezing or cough associated with asthma today. Denies delayed reaction from pre vious allergy injection. No fever or allergy related rash. No recent heavy exposure to aller gens. No plans for strenuous exercise immediately before or after injection today.Electronic ally signed by Modesta Benitez RN at 01/31/2016 4:17 PM PSTdocumented in this encoun ter Plan [...] [place] | | | | | | [id number] | | | | | | | | +--------+ + + + + | 01/17/ | Office | Vascular Surgery | Bill Arevalo DNP | | 2019 | Visit | | [address] | | | | | | [place] | | | | | | [address] | | | | | | | | +--------+ + + + + | 05/22/ | Office | Nephrology | Mariana Cortez, | | | 2020 | Visit | | [address] | | | | | | [address] [place] | | | | | | [place] [address] | | | | | | [phone] | | | | | | | | +--------+ + + + + documented as of this encounter Visit Diagnoses + + | Diagnosis | + + | Asthmatic bronchitis, unspecified asthma severity, uncomplicated - Primary | + + | Allergic rhinitis due to animal (cat) (dog) hair and dander | + + | Non-seasonal allergic rhinitis due to pollen | + + | Allergic rhinitis due to dust mite | + + documented in this encounter"
--- OUTSIDE RECORDS SUMMARY | ~2019-11-09 | XMS | Encounter Summary ---
Demographics + + + | Address | [address] | | | [place] [address] | + + + | Home Phone [...] Author + + + | Author | [facility] | | | and [place] | + + + | Organization | [facility] | | | [...] Team Providers + +------+ + | Care Staff Reporter Name | Role | Phone | + +------+ + PCP | Unavailable | + +------+ + Encounter Details +--------+ + + + + | Date | Type | Department | Care Team | Description | +--------+ + + + + | // | Orders Only | [facility] [place] | Mariana Cortez W, | Chronic kidney | | 2012 | | NEPHROLOGY [address] | [address] | disease, stage IV | | | | [address] | [address] [place] | (severe) (HCC) | | | | [place], [place] | [place] [address] | (Primary Dx); | | | | [address] | [phone] | Hypertension | | | | [phone] | | | +--------+ + + + [...] this encounter Progress Sarah Johnson RN - 09/16/2012 2:42 PM PDTLab order for nephrology consultation on 10/13/12 faxed to [facility] lab. documented in this encounter Plan of Treatment +--------+ + + + + | Date | Type | Specialty | Care Team | Description | +--------+ + + + + | 01/17/ | Appointment | Radiology | Bill Arevalo DNP | | | 2019 | | | [address] | | | | | | [place] | | | | | | [address] | | | | | | | | +--------+ + + + + | 01/17/ | Office | Vascular Surgery | Bill Arevalo DNP | | | 2019 | Visit | | [address] | | | | | | [place] | | | | | | [address] | | | | | | | | +--------+ + + + + | 05/22/ | Office | Nephrology | Mariana Cortez, | | | 2020 | Visit | | MD [address]ine [address]ZA | | | | | | [address] [place] | | | | | | [place] [address] | | | | | | [phone] | | | | | | | | +--------+ + + + + documented as of this encounter Visit Diagnoses + + | Diagnosis | + + | Chronic kidney disease, stage IV (severe) (HCC) - Primary Chronic kidney disease, | | Stage IV (severe) | + + | Hypertension Unspecified essential hypertension | + + documented in this encounter"
--- OUTSIDE RECORDS SUMMARY | ~2019-11-09 | XMS | Encounter Summary ---
Demographics + + + | Address | [address] | | | [place] [address] | + + + | Home Phone [...] + + + | Author | [facility] | | | and [place] | + + + | Organization | [facility] | | | [...] Team Providers + +------+ + | Care Summer Nanny Name | Role | Phone | + [...] | | | | severity, | [place] [address] | [place], [place] | | | | | unspecified | Phone: | [phone] | | | | | whether | [phone] | Phone: | | | | | complicated, | Fax: | [phone] | | | | | unspecified | [phone] | Fax: | | | | | whether | | [phone] | | | | | persistent | [...] | | | | | | | ID | | | | | | | IMMUNOTHERAP | | | | | | | Y, ONE | | | | | | | INJECTION | | | | | | | ID PROFES | | | | | | [...] | +--------+ + + + + | 09/08/ | Orders Only | [facility] [place] | Henok Luther MD | Extrinsic asthma, | | 2019 | | [address]Y [address] | [address] | unspecified asthma | | | | [address] | [address] [place], [place] | severity, | | | | [place], [place] | [address] | unspecified whether | | | | [address] | | complicated, | | | | [phone] | | unspecified whether | | | [...] [place] | | | | | | [address] | | | | | | | | +--------+ + + + + | 01/17/ | Office | Vascular Surgery | Bill Arevalo DNP | | | 2019 | Visit | | [address] | | | | | | [place] | | | | | | [address] | | | | | | | | +--------+ + + + + | 05/22/ | Office | Nephrology | Mariana Cortez, | | | 2020 | Visit | | MD [address] | | | | | | [address] [place] | | | | | | [place] [address] | | | | | | [phone] | | | | | | | | +--------+ + + + + + + +--------+ + + | Name | Type | Priori | Associated Diagnoses | Order Schedule | | | | ty | | | + + +--------+ + + | * [facility] [place] | Outpatient | Routin | Extrinsic asthma, | Ordered: 09/08/2018 | | Otolaryngology - AMB | Referral | e | unspecified asthma | | | Referral | | | severity, | | | [...] | | | | mite | | + + +--------+ + [...]
--- OUTSIDE RECORDS SUMMARY | ~2019-11-09 | XMS | Encounter Summary ---
Demographics + + + | Address | [address] | | | [place] [address] | + + + | Home Phone [...] Team Providers + +------+ + | Care Dresser Tender Name | Role | Phone | [...] | | | vascular | | [place] [address] | | | | | ectasia) | | Phone: | | | | | Procedures | | [phone] | | | | | [place] EGD | | Fax: | | | | | TRANSORAL | | [phone] | | | | | BIOPSY | | | | | | | SINGLE/MULTI | | | | | | | PLE RI | | | | | | [...] + + + + | 10/03/ | Anesthesia | [facility] | Mehrdad Phillips | | | 2019 | [facility] | [address] | | | | | OPER[address] | [address] | | | | | [address] | [place] [address] | | | | | [place], [place] | [phone] | | | | | [address] | | | | | | [phone] | Jeovany Cheek MD | | | | | | [address] | | | | | | [place] [address] | | | | | | [phone] | | | | | | | | +--------+ + + + + Anesthesia Record + + + + + | Procedure Name | Responsible | Anesthesia Start | Anesthesia Stop Time | | | Anesthesiologist | Time | | + + + + + | BYPASS GRAFT | Mehrdad Fong | 10/04/19 1228 | 10/04/19 1550 | | Popliteal to tibial | MIKE Phillips | | | | bypass (Right Leg | | | | | Upper) | | | | + + + + + +----+---+ + + | Da | T | Event | Comment | | te | i | | | | | m | | | | | e | | | +----+---+ + + | 08 | 1 | | | | /2 | 2 | | | | 5/ | 2 | | | | 20 | 0 | | | | 20 | | | | +----+---+ + + | | 1 | An Start | Reassessment prior to anesthesia induction/procedure. | | | 2 | | | | | 2 | | | | | 8 | | | +----+---+ + + | | 1 | Antibiotic | | | | 2 | Given | | | | 3 | | | | | 1 | | | +----+---+ + + | | 1 | An | | | | 2 | Induction | | | | 3 | | | | | 1 | | | +----+---+ + + | | 1 | Art Line | | | | 2 | Start | | | | 3 | | | | | 2 | | | +----+---+ + + | | 1 | Art Line | | | | 2 | Stop | | | | 3 | | | | | 4 | | | +----+---+ + + | | 1 | An | | | | 2 | Intubation | | | | 4 | | | | | 0 | | | +----+---+ + + | | 1 | Anesthesia | | | | 2 | Ready | | | | 4 | | | | | 0 | | | +----+---+ + + | | 1 | [place] | | | | 2 | 43-degrees | | | | 5 | | | | | 5 | | | +----+---+ + + | | 1 | Pre-Procedu | | | | 3 | ral Timeout | | | | 0 | Completed | | | | 1 | | | +----+---+ + + | | 1 | First | | | | 3 | Inc/Proc St | | | | 0 | | | | | 2 | | | +----+---+ + + | | 1 | Intra-op | Discussed during handoff of patient care: - Preop evaluation | | | 3 | Handoff | including the problem list with anesthesia concerns - Antibiotic | | | 5 | Note | plan and documentation - Beta salma use and last dose - Postop | | | 6 | | plan and pain management - Postop orders placed - Narcotic | | | | | documentation | +----+---+ + + | | 1 | Extubation/ | | | | 5 | Airway LDA | | | | 3 | Removal | | | | 8 | | | +----+---+ + + | | 1 | an stop | | | | 5 | data | | | | 4 | | | | | 1 | | | +----+---+ + + | | 1 | An Stop | Patient handed off to recovery nurse. | | | 5 | | | | | 0 | | | +----+---+ + + +------+ | Meds | +------+ + + + | Name | Total | + + + | midazolam 2 mg/mL | 2 mg | + + + | fentaNYL | 200 mcg | + + + | lidocaine 2% | 100 mg | + + + | rocuronium | 80 mg | + + + | dexamethasone | 4 mg | + + + | ondansetron | 8 mg | + + + | phenylephrine | 100 mcg | + + + | neostigmine | 5 mg | + + + | glycopyrrolate | 0.8 mg | + + + | ceFAZolin in dextrose (ANCEF) | 2 g | | IVPB 2 g | | + + + | etomidate | 20 mg | + + + | phenylephrine (JACEK-SYNEPHRINE, | 2,753 mcg | | VAZCULEP) 100 mcg/mL in sodium | | | chloride 0.9% 500 mL infusion | | + + + | heparin | 8,000 Units | + + + | protamine | 20 mg | + + + | Plasmalyte | 500 mL | + + + | sodium chloride 0.9% (NS) bolus | 600 mL | | 500 mL | | + + + + + | Name | + + | N2O Flow Rate (L/Min) | + + | O2 Flow Rate (L/Min) | + + | Insp O2 | + + | Exp N2O | + + | Exp SEV | + + | Air Flow Rate (L/Min) | + + + + | No blood administrations on file. | + + +--------+ + + + | Type | Details | Placement | Removal | +--------+ + + + | PICC | 08/17/19 (unknown when it was | 08/17/19 1651 by | | | Single | inserted. [...] +--------+ + + + | Wound | 08/18/19; 1649; Y; Diabetic ulc; | 08/18/191649 by | | | | Left; medial; foot; blister(s) | Ana Nix RN | | +--------+ + + + | Periph | 10/04/19; 1048; Left; Posterior | 10/04/19 1048 by | | | eral | (dorsal); Forearm; | Radha Franklin RN | | | IV | nlnu-zxl-ihdamm catheter system; | | | | | 20 gauge | | | +--------+ + + + | Periph | 10/04/19; 1240 (created via | 10/04/19 1240 by | | | eral | procedure documentation); Right; | Jeovany Cheek MD | | | IV | 20 gauge | | | +--------+ + + + | Wound | 10/04/19; 1529; Incision; Right; | 10/04/19 1529 by | | | | foot | Justin Suggs RN | | +--------+ + + + | Wound | 10/04/19; 1529; Incision; Right; | 10/04/19 1529 by | | | | verna | Justin Suggs RN | | +--------+ + + + | Arteri | 10/04/19; 1232 (created via | 10/04/19 1232 by | 10/05/19 1500 by | | al | procedure documentation); | Jeovany Cheek MD | Sunitha Ruiz RN | | Line | Chlorhexidine/Isopropyl Alcohol; | | | | | sedated; Left; radial artery; 20 | | | | | gauge; continuous blood pressure | | | | | monitoring, frequent blood gas | | | | | measurement; landmarks; arm | | | | | board, other (see comments); | | | | | 10/05/19; 1500 | | | +--------+ + + + | Urethr | 10/04/19; 1237; indicated due to | 10/04/19 1237 by | 10/05/19 1512 by | | al | specific surgical procedure; All | IVANNA Gonzalez | Sunitha Ruiz RN | | Cathet | elements; All elements; latex; | | | | er | 16; None; 1; 10; 10; none; | | | | | 10/05/19; 1512 | | | +--------+ + + + | Airway | Placement Date: 10/04/19; | 10/04/19 1240 by | 10/04/19 1538 by | | | Placement Time: 1240 (created via | Jeovany Cheek MD | Mehrdad Fong | | | procedure documentation); Mask | | MIKE Phillips | | | Ventilation: EZ w/OA; Airway | | | | | Grade: 1; Successful Technique: | | | | | Mac; Laryngoscope Blade Size: 3; | | | | | Attempts: 1; Airway Type: | | | | | endotracheal; Size: 7.5; Trauma: | | | | | none; Other Equipment: stylette; | | | | | Placement Check: exhaled CO2 | | | | | detection device, bilateral chest | | | | | rise; Removal Date: 10/04/19; | | | | | Removal Time: 1538 | | | +--------+ + + + [...] encounter OR Notes Anesthesia Postprocedure Evaluation - Mehrdad Phillips CRNA - 10/04/2019 3:53 PM PDT ANESTHESIA POSTANESTHESIA EVALUATION July Forte 49 y.o. female 1970 [id number] Procedure(s) BYPASS GRAFT Popliteal to tibial bypass (Right Leg Upper) Cooperates? Yes Mental Status Performs simple tasks. Respiratory Satisfactory - Airway patent (self maintained). Cardiovascular Satisfactory - Blood pressure and heart rate acceptable Temperature Satisfactory Pain Satisfactory N/V Control Satisfactory Hydration Satisfactory - No signs of dehydration Adverse Events ADVERSE EVENTS: No adverse events Vitals Value Taken Time Temp 37.3 C (99.2 F) 10/04/19 1552 Pulse 104 10/04/19 1552 Resp 20 10/04/19 1552 BP 123/69 10/04/19 1552 Arterial Line BP 113/57 10/04/19 1552 Arterial Line BP 2 SpO2 99 % 10/04/19 1552 Vitals shown include unvalidated device data. Electronically signed by Mehrdad Phillips CRNA 10/04/2019 3:53 PM PDT [facility] CRNA at 3:53 PM PDTAnesthesia Procedure Notes - Trae Villasenor CRNA - 10/04/2019 1:2 6 PM PDTAssociated Order(s): ALineArterial Line Placement 10/04/2019 12:32 PM Indication: continuous blood pressure monitoring and acid-base/laboratory analysis Prep solution: chlorhexidine/isoproplyl alcohol Patient was: sedated Laterality: left Artery:radial Size: 20 g Localization technique: landmark Securement: transparent dressing, tape and arm board Performed by: Jeovany Cheek MD Authorizing provider: Jeovany Cheek MD Please see intraoperative grid for any additional medication documentation. nesthesia Proce dure Charlene - Jeovany Cheek MD - 10/04/2019 12:50 PM PDTAssociated Order(s): PIV Intravenous Line Placement 10/04/2019 12:40 PM Indication: necessitating physician/CLIENT DEVELOPMENT DIRECTOR skill Preparation: alcohol patient was: under GA Side: right Size: 20 g Securement: transparent dressing Placed by: Jeovany Cheek MD Authorizing provider: Jeovany Cheek MD Please see intraoperative grid for any additional medication documentation. nesthesia Procedure N otes - Jeovany Cheek MD - 10/04/2019 12:49 PM PDTAssociated Order(s): AirwayAnesthesia Air way Placement 10/04/2019 12:40 PM Preprocedure check: patient identified, oxygen, airway assessed, patient reassessment prior to induction, airway equipment checked and suction Rapid Sequence Induction: no Mask ventilation: easy with oral airway External maneuver: ramp position Successful technique: Mac Laryngoscope blade size: 3 Airway grade: 1 (Full view of glottis) Other equipment: stylette Attempts: 1 Airway type: endotracheal Size: 7.5 Cuffed: cuffed Route, reference point: teeth/lips Tube secured with: adhesive tape Trauma: none Tube placement verification: bilateral chest rise and carbon dioxide detection Performing provider: Jeovany Cheek MD Authorizing provider: Jeovany Cheek MD Please see intraoperative grid for any additional medication documentation. nesthesia Preprocedur e Evaluation - Jeovany Cheek MD - 10/04/2019 9:45 AM PDT ANESTHESIA PREANESTHESIA EVALUATION July Forte 49 y.o. female 1970 [id number] Procedure(s): BYPASS GRAFT Popliteal to tibial bypass (Right Leg Upper) Medical,anesthesia, drug, allergy histories reviewed, NPO status verified. ECG reviewed. Labs reviewed. (-) perioperative beta-salma/statin not given/taken, reason : last dose within 24 hours. 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 I suspect the stenosis and narrowing is contributing to her slow healing chronic ulcer. We discussed s urgical option and mechanism of RLE arteriogram with the patient. We have discussed benefits and risks of this procedure, including bleeding, infection, etc. Patient is understanding, is agreeable to the procedure, and has signed consent for surgery on 09/28/2019. Patient was instructed not to consume any foods or fluids after 11:59 PM on the date prior to surgery. A ll questions and concerns addressed. Patient understands and is agreeable. Normal sinus rhythm Normal ECG No previous ECGs available .(-) previous surgery or anesthesia, PONV, motion sickness. Family Anesthesia History (-) family history of PONV. Cardiovascular --old echo --------- 1. This was a technically difficult study with suboptimal views. 2. Overall left ventricular systolic function is normal with, an EF between 65 - 70 %. 3. The right ventricle is mildly enlarged measuring between 3.4 - 3.7 cm. 4. Mild-possibly moderate mitral regurgitation is present. 5. There is mild pulmonary hypertension. . (+) hypertension (+) PVD: . Pulmonary (+) sleep apnea.(+) asthma.(+) tobacco use.(+) current smoker. Stop Bang Score: 5. Gastrointestinal/Hepatic (+) peptic ulcer disease: Renal (+) chronic renal insufficiency. Endocrine (+) obesity: (+) Diabetes: Hematology/Other (+) anemia. Obstetrics (+) proteinuria. Neuromuscular (+) history of headaches. Physical Exam Airway MP I, TM >3 FB, Mouth opening >2 FB. Neck: full ROM, extends >30 degrees. Jaw protrusi on normal. Facial hair present: No Dental grossly normal except where noted below. (+) dentures-upper. CV Rhythm regular. Rate normal. (-) murmur and carotid bruit. Pulm Clear to auscultation bilaterally. Neuro grossly normal. Anesthesia Plan ASA: 3 Type: General. Plan discussed with patient risks benefits and possibility of awareness, ag sundeep and wants to proceed. Induction: Intravenous. Potential problems: None anticipated. Monitors: Standard ASA monitors. Arterial line to aid in hemodynamic monitoring. Consent statement: Anesthetic plan, alternatives, risks and benefits discussed with patient. heart problems, r espiratory events, sore throat Consenting person understands and agrees to proceed. documented in this enc ounter Miscellaneous Notes Anesthesia Post-op Handoff - Mehrdad Phillips CRNA - 10/04/2019 3:53 PM PDTFormattin g of this note might be different from the original. ANESTHESIA HANDOFF NOTE July Blakeslee Jann 49 y.o. female 1970 [id number] BYPASS GRAFT Popliteal to tibial bypass (Right Leg Upper) HANDOFF NOTE Handoff Protocol Used: post-procedure handoff [...] report from receiving team Patient Location: Phase I Condition: responds to stimuli and sedated Airway/O2: face mask with O2 Multimodal analgesia: multimodal analgesia used between 6 hours prior to anesthesia start t o PACU discharge Two or more MARYURI mitigation strategies used: perioperative obstructive sleep apnea intervent ions applied The significant anesthesia concerns and VS in Epic were reviewed with the receiving team. Mehrdad Phillips CRNA 10/04/2019 3:53 PM PDT [facility] by Mehrdad Phillips CRNA at 3:53 PM PDTdocumented in this encounter Plan of [...] [place] | | | | | | [address] | | | | | | | | +--------+ + + + + | 05/22/ | Office | Nephrology | Mariana Cortez, | | | 2020 | Visit | | MD [address] | | | | | | [address] [place] | | | | | | [place] [address] | | | | | | [phone] | | | | | | | | +--------+ + + + + documented as of this encounter Procedures + +--------+ + + + | Procedure Name | Priori | Date/Time | Associated Diagnosis | Comments | | | ty | | | | + +--------+ + + + | ANE ARTERIAL LINE | Routin | 10/04/2019 | | Results for this | | NOTE | e | 1:26 PM | | procedure are in the | | | | PDT | | results section. | + +--------+ + + + | ANE PERIPHERAL IV | Routin | 10/04/2019 | | Results for this | | LINE NOTE | e | 12:50 PM | | procedure are in the | | | | PDT | | results section. | + +--------+ + + + | ANE AIRWAY NOTE | Routin | 10/04/2019 | | Results for this | | | e | 12:49 PM | | procedure are in the | | | | PDT | | results section. | + +--------+ + + + documented in this encounter Results Mandy (10/04/2019 1:26 PM PDT) + + + | Narrative | Performed At | + + + | Trae Villasenor CRNA 10/04/2019 1:31 PM Arterial Line | | | Placement 10/04/2019 12:32 PM Indication: continuous blood | | | pressure monitoring and acid-base/laboratory analysis Prep | | | solution: chlorhexidine/isoproplyl alcohol Patient was: sedated | | | Laterality: left Artery:radial Size: 20 g Localization technique: | | | landmark Securement: transparent dressing, tape and arm board | | | Performed by: Jeovany Cheek MD Authorizing provider: Jeovany Cheek | | | Please see intraoperative grid for any additional medication | | | documentation. | | + + + PIV (10/04/2019 12:50 PM PDT) + + + | Narrative | Performed At | + + + | Jeovany Cheek MD 10/04/2019 12:50 PM Intravenous Line | | | Placement 10/04/2019 12:40 PM Indication: necessitating | | | physician/CLIENT DEVELOPMENT DIRECTOR skill Preparation: alcohol patient was: under GA | | | Side: right Size: 20 g Securement: transparent dressing Placed by: | | | Jeovany Cheek MD Authorizing provider: Jeovany Cheek MD | | | Please see intraoperative grid for any additional medication | | | documentation. | | + + + Airway (10/04/2019 12:49 PM PDT) + + + | Narrative | Performed At | + + + | Jeovany Cheek MD 10/04/2019 12:49 PM Anesthesia Airway | | | Placement 10/04/2019 12:40 PM Preprocedure check: patient | | | identified, oxygen, airway assessed, patient reassessment prior to | | | induction, airway equipment checked and suction Rapid Sequence | | | Induction: no Mask ventilation: easy with oral airway External | | | maneuver: ramp position Successful technique: Mac Laryngoscope blade | | | size: 3 Airway grade: 1 (Full view of glottis) Other equipment: | | | stylette Attempts: 1 Airway type: endotracheal Size: 7.5 Cuffed: | | | cuffed Route, reference point: teeth/lips Tube secured with: | | | adhesive tape Trauma: none Tube placement verification: bilateral | | | chest rise and carbon dioxide detection Performing provider: Jeovany Alston | | | MD Ham Authorizing provider: Jeovany Cheek MD Please | | | see intraoperative grid for any additional medication documentation. | | + + + documented in this encounter Visit Diagnoses Not on filedocumented in this encounter Administered Medications + +---------+ +------+------+------+ | Medication Order | MAR | Action | Dose | Rate | Site | | | Action | Date | | | | + +---------+ +------+------+------+ | balanced electrolytes in water | New Bag | 10/04/19 | | | | | (PLASMALYTE-148/NORMOSOL-R) | | 20 12:28 | | | | | infusion Intravenous, CONTINUOUS | | PM PDT | | | | | PRN, Starting 10/04/19 at | | | | | | | 1228, Anesthesia Intra-op | | | | | | + +---------+ +------+------+------+ +---+---+ | | | +---+---+ + +-------+ +-----+---+---+ | ceFAZolin in dextrose (ANCEF) | Given | 10/04/19 | 2 g | | | | IVPB 2 g 2 g, Intravenous, | | 20 12:43 | | | | | Administer over 30 Minutes, Prior | | PM PDT | | | | | to Incision, Starting Tu | | | | | | | 10/04/19 at 1029, For 1 dose, Keep | | | | | | | in refrigerator., Indications: | | | | | | | Surgical Prophylaxis | | | | | | + +-------+ +-----+---+---+ +---+---+ | | | +---+---+ + +-------+ +------+---+---+ | dexamethasone (DECADRON) 4 | Given | 10/04/19 | 4 mg | | | | mg/mL injection Intravenous, | | 20 1:06 | | | | | PRN, Starting 10/04/19 at | | PM PDT | | | | | 1306, Anesthesia Intra-op | | | | | | + +-------+ +------+---+---+ +---+---+ | | | +---+---+ + +-------+ +-------+---+---+ | etomidate (AMIDATE) injection | Given | 10/04/19 | 20 mg | | | | Intravenous, PRN, Starting Tue | | 20 12:31 | | | | | 10/04/19 at 1231, Anesthesia | | PM PDT | | | | | Intra-op | | | | | | + +-------+ +-------+---+---+ +---+---+ | | | +---+---+ + +-------+ +--------+---+---+ | fentaNYL (PF) injection | Given | 10/04/19 | 75 mcg | | | | Intravenous, PRN, Starting Tue | | 20 3:00 | | | | | 10/04/19 at 1231, Anesthesia | | PM PDT | | | | | Intra-op | | | | | | + +-------+ +--------+---+---+ +-------+ +---------+---+---+ | Given | 10/04/19 | 25 mcg | | | | | 20 1:48 | | | | | | PM PDT | | | | +-------+ +---------+---+---+ | Given | 10/04/19 | 100 mcg | | | | | 20 12:31 | | | | | | PM PDT | | | | +-------+ +---------+---+---+ +---+---+ | | | +---+---+ + +-------+ +--------+---+---+ | glycopyrrolate (BEV) | Given | 10/04/19 | 0.8 mg | | | | injection Intravenous, PRN, | | 20 3:32 | | | | | Starting 10/04/19 at 1532, | | PM PDT | | | | | Anesthesia Intra-op | | | | | | + +-------+ +--------+---+---+ +---+---+ | | | +---+---+ + +-------+ +--------+---+---+ | heparin 1,000 units/mL | Given | 10/04/19 | 8,000 | | | | injection Intravenous, PRN, | | 20 2:15 | Units | | | | Starting 10/04/19 at 1415, | | PM PDT | | | | | Anesthesia Intra-op | | | | | | + +-------+ +--------+---+---+ +---+---+ | | | +---+---+ + +-------+ +--------+---+---+ | lidocaine (PF) 2% injection | Given | 10/04/19 | 100 mg | | | | Intravenous, PRN, Starting Tue | | 20 12:31 | | | | | 10/04/19 at 1231, Anesthesia | | PM PDT | | | | | Intra-op | | | | | | + +-------+ +--------+---+---+ +---+---+ | | | +---+---+ + +-------+ +------+---+---+ | midazolam (VERSED) 1 mg/mL | Given | 10/04/19 | 2 mg | | | | injection Intravenous, PRN, | | 20 12:28 | | | | | Starting 10/04/19 at 1228, | | PM PDT | | | | | Anesthesia Intra-op | | | | | | + +-------+ +------+---+---+ +---+---+ | | | +---+---+ + +-------+ +------+---+---+ | neostigmine (BLOXIVERZ) 1 mg/mL | Given | 10/04/19 | 5 mg | | | | injection Intravenous, PRN, | | 20 3:32 | | | | | Starting 10/04/19 at 1532, | | PM PDT | | | | | Anesthesia Intra-op | | | | | | + +-------+ +------+---+---+ +---+---+ | | | +---+---+ + +-------+ +------+---+---+ | ondansetron (ZOFRAN) injection | Given | 10/04/19 | 4 mg | | | | Intravenous, PRN, Starting Tue | | 20 3:15 | | | | | 10/04/19 at 1306, Anesthesia | | PM PDT | | | | | Intra-op | | | | | | + +-------+ +------+---+---+ +-------+ +------+---+---+ | Given | 10/04/19 | 4 mg | | | | | 20 1:06 | | | | | | PM PDT | | | | +-------+ +------+---+---+ +---+---+ | | | +---+---+ + +-------+ +---------+---+---+ | phenylephrine (JACEK-SYNEPHRINE, | Given | 10/04/19 | 100 mcg | | | | VAZCULEP) 10 mg per mL injection | | 20 12:53 | | | | | Intravenous, PRN, Starting Tue | | PM PDT | | | | | 10/04/19 at 1253, Anesthesia | | | | | | | Intra-op | | | | | | + +-------+ +---------+---+---+ +---+---+ | | | +---+---+ + + + +---------+ +---+ | phenylephrine (JACEK-SYNEPHRINE, | Rate/Dos | 10/04/19 | 20 | 12 mL/hr | | | VAZCULEP) 100 mcg/mL in sodium | e Change | 20 1:50 | mcg/min | | | | chloride 0.9% 500 mL infusion | | PM PDT | | | | | 0-360 mcg/min (0-216 mL/hr), at | | | | | | | 0-216 mL/hr, Intravenous, | | | | | | | TITRATED, Starting 10/04/19 at | | | | | | | 1330, Titration Instruction: See | | | | | | | below, Goal: SBP greater than | | | | | | | 90, Initial dose: 30 mcg/min, | | | | | | | Increase rate by: 20 mcg/min | | | | | | | every 5 minutes., Decrease rate | | | | | | | by: 20 mcg/min every 5 minutes., | | | | | | | *: Titrate drug per order as | | | | | | | tolerated. Titration may vary | | | | | | | based on the patient | | | | | | | | | | | | | | s critical condition., Intra-op | | | | | | + + + +---------+ +---+ + + +---------+ +---+ | Rate/Dose Change | 10/04/19 | 22 | 13.2 | | | | 20 1:36 | mcg/min | mL/hr | | | | PM PDT | | | | + + +---------+ +---+ | New Bag | 10/04/19 | 25 | 15 mL/hr | | | | 20 1:15 | mcg/min | | | | | PM PDT | | | | + + +---------+ +---+ +---+---+ | | | +---+---+ + +-------+ +-------+---+---+ | protamine injection | Given | 10/04/19 | 20 mg | | | | Intravenous, PRN, Starting Tue | | 20 3:11 | | | | | 10/04/19 at 1511, Anesthesia | | PM PDT | | | | | Intra-op | | | | | | + +-------+ +-------+---+---+ +---+---+ | | | +---+---+ + +-------+ +-------+---+---+ | rocuronium (ZEMURON) injection | Given | 10/04/19 | 10 mg | | | | Intravenous, PRN, Starting Tue | | 20 2:12 | | | | | 10/04/19 at 1231, Anesthesia | | PM PDT | | | | | Intra-op | | | | | | + +-------+ +-------+---+---+ +-------+ +-------+---+---+ | Given | 10/04/19 | 20 mg | | | | | 20 1:16 | | | | | | PM PDT | | | | +-------+ +-------+---+---+ | Given | 10/04/19 | 50 mg | | | | | 20 12:31 | | | | | | PM PDT | | | | +-------+ +-------+---+---+ +---+---+ | | | +---+---+ + +---------+ +---+---+---+ | sodium chloride 0.9% (NS) bolus | New Bag | 10/04/19 | | | | | 500 mL 500 mL, Intravenous, | | 20 12:28 | | | | | Administer over 2 Hours, ONCE, | | PM PDT | | | | | 10/04/19 at 1115, For 1 dose, | | | | | | | Pre-op | | | | | | + +---------+ +---+---+---+ +---+---+ | | | +---+---+ documented in this encounter"
--- OUTSIDE RECORDS SUMMARY | ~2019-11-09 | XMS | Encounter Summary ---
Demographics + + + | Address | [address] | | | [place] [address] | + + + | Home Phone [...] Team Providers + +------+ + | Care Solvent Plant Treater Name | Role | Phone | + [...] | | | | to pollen | [place] [address] | [address] Phone: | | | | | Allergic | Phone: | [phone] | | | | | rhinitis due | [phone] | Fax: | | | | | to dust | Fax: | [phone] | | | | | Mild | [phone] | | | | | | intermittent | | | | | | | asthma, | | | | | | | uncomplicate | | | | | | | d | | | | | | | Procedures | | | | | | | NM | | | | | | | IMMUNOTHERAP | | | | | | | Y, ONE | | | | | | | INJECTION | | | | | | | NM PROFES | | | | | | | SVC,IMMUNOTH | | | | | | | ER,SINGLE/MU | | | | | | | LT AGS | | | +--------+ + + + + + Encounter Details +--------+ + + + + | Date | Type | Department | Care Team | Description | +--------+ + + + + | 08/19/ | Clinical | [facility] | Henok Luther MD | Extrinsic asthma, | | 2019 | Support | OTOLARYNGOLOGY [address] | [address] | unspecified asthma | | | | [address] | [address] [place] | severity, | | | | [place] | [address] | unspecified whether | | | | [address] | | complicated, | | | | [phone] | | unspecified whether | | | [...] encounter Progress Notes Domenica Meredith RN - 08/19/2018 4:00 PM PDTPatient presents with epi-pen & inhaler. No ac tive wheezing or cough associated with asthma today. Denies delayed reaction from previous a llergy injection. No fever or allergy related rash. No recent heavy exposure to allergens. N o plans for strenuous exercise immediately before or after injection today.Electronically si gned by Domenica Meredith RN at 08/19/2018 4:09 PM PDTdocumented in this encounter Plan of [...] [place] | | | | | | [address] | | | | | | | | +--------+ + + + + | 05/22/ | Office | Nephrology | Mariana Cortez, | | | 2020 | Visit | | MD [address] | | | | | | [address] [place] | | | | | | [place] [address] | | | | | | [phone] | | | | | | | [...]
--- OUTSIDE RECORDS SUMMARY | ~2019-11-09 | XMS | Encounter Summary ---
Demographics + + + | Address | [address] | | | [place] [address] | + + + | Home Phone [...] + | Organization | [facility] | [...] Team Providers + +------+ + | Care Acid Tender Name | Role | Phone | [...] | +--------+ + + + + | 04/23/ | Clinical | [facility] [place] | Henok Luther MD | Extrinsic asthma, | | 2018 | Support | OTOLARYNGOLOGY [address] | [address] | unspecified asthma | | | | [address] | [address] [place] | severity, | | | | [place] | [address] | unspecified whether | | | | [address] | | complicated, | | | | [phone] | | unspecified whether | | | | | | persistent (Primary | | | | | | Dx); Allergic | | | | | | rhinitis due to | | | | | | pollen, unspecified | | | | | | chronicity, | | | | | | unspecified | | | | | | seasonality; | | | | | | Allergic [...] encounter Progress Notes Domenica Meredith RN - 04/23/2017 3:30 PM PDTPatient presents with epi-pen & inhaler. No ac tive wheezing or cough associated with asthma today. Denies delayed reaction from previous a llergy injection. No fever or allergy related rash. No recent heavy exposure to allergens. N o plans for strenuous exercise immediately before or after injection today.Electronically si gned by Domenica Meredith RN at 04/23/2017 3:46 PM PDTdocumented in this encounter Plan of [...] [place] | | | | | | [address] | | | | | | | | +--------+ + + + + | 01/17/ | Office | Vascular Surgery | Bill Arevalo DNP | | | 2019 | Visit | | [address] | | | | | | [place] | | | | | | [address] | | | | | | | | +--------+ + + + + | 05/22/ | Office | Nephrology | Mariana Cortez, | | | 2020 | Visit | | MD [address] | | | | | | [address] [place] | | | | | | [place] [address] | | | | | | [phone] | | | | | | | | +--------+ + + + + documented as of this encounter Visit Diagnoses + + | Diagnosis | + + | Extrinsic asthma, unspecified asthma severity, unspecified whether complicated, | | unspecified whether persistent - Primary | + + | Allergic rhinitis due to pollen, unspecified chronicity, unspecified seasonality | + + | Allergic rhinitis due to animal hair and dander, unspecified chronicity | + + | Allergic rhinitis due to dust mite | + + documented in this encounter"
--- OUTSIDE RECORDS SUMMARY | ~2019-11-09 | XMS | Encounter Summary ---
Demographics + + + | Address | [address] | | | [place] [address] | + + + | Home Phone [...] | Author | [facility] | | | and [place] | + + + | Organization | [facility] [...] Team Providers + +------+ + | Care Vehicle Detailer Name | Role | Phone | + [...] | | | to pollen | [place] [address] | [address] Phone: | | | | | Allergic | Phone: | [phone] | | | | | rhinitis due | [phone] | Fax: | | | | | to dust | Fax: | [phone] | | | | | Mild | [phone] | | | | | | intermittent [...] | +--------+ + + + + | 07/08/ | Clinical | [facility] | Henok Luther MD | Extrinsic asthma, | | 2019 | Support | OTOLARYNGOLOGY [address] | [address] | unspecified asthma | | | | [address] | [address] [place] | severity, | | | | [place] | [address] | unspecified whether | | | | [address] | | complicated, | | | | [phone] | | unspecified whether | | | [...] encounter Progress Notes Domenica Meredith RN - 07/08/2018 3:15 PM PDTFormatting of this note might [...] Mixed immunotherapy treatment vial for patient on 07/01/18. [facility] Sapna Forte TREES, DUST, DANDER: 87 07/08/2018 Allergen Extract Amount/mL Dilution Lot # Expiration Date [place] Mix [place] 0.2 C [id number] 01/13/21 Sugar Maple [place] 0.2 C 825333 03/30/21 [place] 0.2 C 439840 07/04/20 Spring Birch [place] 0.2 C 879145 09/27/20 Juniper 0.2 C 043995 10/27/20 Black [place] 0.2 C 155089 01/13/21 Mites, Farinae 0.1 C 962426 05/03/20 Mites, Ptero. 0.1 C 942685 06/23/19 Cat Hair 0.1 C 920978 02/22/20 Dog Epi. Horse Epi Total Allergens : 1.5 ml. Saline: 1.0 ml. Total Volume: 2.5 ml. Mixed immunotherapy treatment vial for patient on 07/01/18. TREATMENT SET [facility] Molds, Insects & Feathers: 88 07/08/2018 Allergen Extract Amount/ml Dilution Lot # Expiration Date Alternaria Aspergillus Cladosporium Penicillium Bipolaris Sorok. 0.1 C [id number] 07/13/20 Pullulans 0.1 C 018717 02/01/20 Mucor 0.1 C 919134 10/25/20 Phoma Rhodotorula 0.1 C 470447 12/20/20 Fusarium Paecilomyces Grain Smut 0.1 C 567386 01/13/21 Grass Smut 0.1 C 887851 01/13/21 Am. Cockroach 0.1 C 696485 08/08/20 Mixed Feathers 0.1 C 834102 01/13/21 Total Allergens: 0.8 mL Saline: 1.7 mL [...] [place] | | | | | | [address] | | | | | | | | +--------+ + + + + | 01/17/ | Office | Vascular Surgery | Bill Arevalo DNP | | | 2019 | Visit | | [address] | | | | | | [place] | | | | | | [address] | | | | | | | | +--------+ + + + + | 05/22/ | Office | Nephrology | Mariana Cortez, | | | 2020 | Visit | | [address] | | | | | | [address] [place] | | | | | | [place] [address] | | | | | | [phone] | | | | | | | | +--------+ + + + + +-------+ +--------+ + + | Name | Type | Priori | Associated Diagnoses | Order Schedule | | | | ty | | | +-------+ +--------+ + + | Vials | Procedures | Routin | Extrinsic asthma, | Ordered: 07/08/2018 | | | | e | unspecified [...]
--- OUTSIDE RECORDS SUMMARY | ~2019-11-09 | XMS | Encounter Summary ---
Demographics + + + | Address | [address] | | | [place] [address] | + + + | Home Phone [...] Team Providers + +------+ + | Care Driving Teacher Name | Role | Phone | + [...] | | | | severity, | [place] [address] | [address] Phone: | | | | | uncomplicate | Phone: | [phone] | | | | | d | [phone] | Fax: | | | | | Non-seasonal | Fax: | [phone] | | | | | allergic | [phone] | | | | | | rhinitis due | | | | | | | to pollen | | | | | | | Procedures | | | | | | | MI | | | | | | | IMMUNOTHERAP | | | | | | | Y, ONE | | | | | | | INJECTION | | | | | | | MI | | | | | | | IMMUNOTHERAP | | | | | | | Y, 2+ | | | | | | | INJECTIONS | | | | | | | MI PROFES | | | | | | [...] | +--------+ + + + + | 03/06/ | Clinical | [facility] [place] | Henok Luther MD | Non-seasonal | | 2017 | Support | OTOLARYNGOLOGY [address] | [address] | allergic rhinitis | | | | [address] | [address] [place] | due to pollen | | | | [place], [place] | [address] | (Primary Dx); | | | | [address] | | Allergic rhinitis | | | | [phone] | | due to animal (cat) | [...] encounter Progress Notes Narda Lay RN - 03/06/2016 4:04 PM PSTFormatting of this note might be different fr om the original. Patient presents with epi-pen & inhaler. No active wheezing or cough associated with asthma today. Denies delayed reaction from previous allergy injection. No fever or allergy related rash. No recent heavy exposure to allergens. No plans for strenuous exercise immediately be fore or after injection today. Mixed immunotherapy treatment vial for patient on 02/20/16. TREATMENT SET [place] Weeds & Grass: 86 03/06/2016 Allergen Extract Amount/ml Dilution Lot # Expiration Date Ragweed Mix Pigweed 0.2 C 524341 12/31/18 Kochia 0.2 C 682258 12/31/18 Humph[place]'s Quarter 0.2 C 553244 12/31/18 Luther Elder 0.2 C 853446 09/18/18 Macedonian Plantain 0.2 C 324175 09/18/18 False Ragweed 0.2 C 873491 09/18/18 Macanese Thistle 0.2 C 567223 09/18/18 Sagebrush 0.2 C 557809 11/20/18 Sheep [place] Dandelion 0.2 C 389128 01/20/18 Atriplex Mix 0.2 C 508237 09/18/18 #7 Grass Mix 0.2 C 478066 11/27/16 Bermuda Grass 0.2 C [id number] 04/17/19 Sameer Grass 0.2 C 385102 11/20/18 [place] 0.2 C 200797 09/18/18 Total Allergens: 2.8 ml. Saline: 0.2 ml. Total Volume: 3.0 ml. Mixed immunotherapy treatment vial for patient on 02/28/16. TREATMENT SET [place] Forte TREES, DUST, EPIDERMAL: 87 03/06/2016 Allergen Extract Amount/mL Dilution Lot # Expiration Date [place] Mix [place] 0.2 C 221310 12/31/18 Sugar Maple [place] 0.2 C 359585 09/18/18 [place] 0.2 C 218964 10/22/18 Spring Birch [place] 0.2 C 729632 09/18/18 Juniper 0.2 C 177651 09/18/18 Black [place] 0.2 C 004845 09/18/18 Macanese [place] 0.2 C 503247 09/18/18 Mites, Farinae 0.1 C 051863 09/23/17 Mites, Ptero. 0.1 C 135292 02/03/18 Cat Hair 0.1 C 811645 11/11/17 Dog Epi. Horse Epi Total Allergens : 1.7 ml. Saline: 0.8 ml. Total Volume: 2.5 ml. documented in this e ncounter Plan [...] [place] | | | | | | [id number] | | | | | | | | +--------+ + + + + | 01/17/ | Office | Vascular Surgery | Bill Arevalo DNP | | | 2019 | Visit | | [address] | | | | | | [place] | | | | | | [address] | | | | | | | | +--------+ + + + + | 05/22/ | Office | Nephrology | Mariana Cortez, | | | 2020 | Visit | | [address] | | | | | | [address] [place] | | | | | | [place] [address] | | | | | | [phone] | | | | | | | [...]
--- OUTSIDE RECORDS SUMMARY | ~2019-11-09 | XMS | Encounter Summary ---
Demographics + + + | Address | [address] | | | [place] [address] | + + + | Home Phone | | + + + | Preferred Language | Unknown | + + + | Marital Status | Single | + + + | Sikh Affiliation | Unknown | + + + [...] | | + + +---------+ + | Rebcea Forte | ECON | Unknown | | + + +---------+ + Care Team Providers + +------+ + | Care Microsoft Application Developer Name | Role | Phone | + [...] | | | to pollen | [place] [address] | [address] Phone: | | | | | Allergic | Phone: | [phone] | | | | | rhinitis due | [phone] | Fax: | | | | | to dust | Fax: | [phone] | | | | | Mild | [phone] | | | | | | intermittent [...] + | 05/27/ | Clinical | [facility] | Henok Luther MD | Extrinsic asthma, | | 2019 | Support | OTOLARYNGOLOGY [address] | [address] | unspecified asthma | | | | [address] | [address] [place] | severity, | | | | [place] | [address] | unspecified whether | | | | [address] | | complicated, | | | | [phone] | | unspecified whether | | | [...] encounter Progress Notes Domenica Meredith RN - 05/27/2018 3:30 PM PDTPatient presents with epi-pen & inhaler. No ac tive wheezing or cough associated with asthma today. Denies delayed reaction from previous a llergy injection. No fever or allergy related rash. No recent heavy exposure to allergens. N o plans for strenuous exercise immediately before or after injection today.Electronically si gned by Domenica Meredith RN at 05/27/2018 3:41 PM PDTdocumented in this encounter Plan [...] [place] | | | | | | [address] | | | | | | | | +--------+ + + + + | 05/22/ | Office | Nephrology | Mariana Cortez, | | | 2020 | Visit | | MD [address] | | | | | | [address] [place] | | | | | | [place] [address] | | | | | | [phone] | | | | | | | [...]
--- OUTSIDE RECORDS SUMMARY | ~2019-11-09 | XMS | Encounter Summary ---
Demographics + + + | Address | [address] | | | [place] [address] | + + + | Home Phone [...] Team Providers + +------+ + | Care Helper Marble Finisher Name | Role | Phone | [...] | Asthmatic | Henok Calix MD | Otolaryngolog | | | Required | | bronchitis | [address] | | | [address] | [address] | | | | | complication | [place], | [address] [place] | | | | | , | [place] [address] | [place] | | | | | unspecified | Phone: | [phone] | | | | | asthma | [phone] | Phone: | | | | | severity, | Fax: | [phone] | | | | | unspecified | [phone] | Fax: | | | | | whether | | [phone] | | | | | persistent | | | | | | | Allergic | | | | | | | rhinitis due | | | | | | | to pollen, | | | | | [...] + + + + | 04/15/ | Orders Only | [facility] [place] | Henok Luther MD | Asthmatic bronchitis | | 2018 | | OTOLARYNGOLOGY [address] | [address] | without | | | | [address] | [address] [place] | complication, | | | | [place], [place] | [address] | unspecified asthma | | | | [address] | | severity, | | | | [phone] | | unspecified whether | | | [...] [place] | | | | | | [address] | | | | | | | | +--------+ + + + + | 01/17/ | Office | Vascular Surgery | Bill Arevalo DNP | | | 2019 | Visit | | [address] | | | | | | [place] | | | | | | [address] | | | | | | | | +--------+ + + + + | 05/22/ | Office | Nephrology | Mariana Cortez, | | | 2020 | Visit | | MD [address] | | | | | | [address] [place] | | | | | | [place] [address] | | | | | | [phone] | | | | | | | | +--------+ + + + + + + +--------+ + + | Name | Type | Priori | Associated Diagnoses | Order Schedule | | | | ty | | | + + +--------+ + + | * [facility] [place] | Outpatient | Routin | Asthmatic | Ordered: 04/15/2017 | | Otolaryngology - AMB | Referral | e | bronchitis without | | | Referral | | | complication, | | | [...] seasonality | | | | | | Allergic rhinitis | | | | | | due to animal hair | | | | | | and dander, | | | | | | unspecified | | | | | | chronicity Allergic | | | | | | rhinitis due to | | | | | | dust mite | | + + +--------+ + + documented as of this encounter Visit Diagnoses + + | Diagnosis | + + | Asthmatic bronchitis without complication, unspecified asthma severity, unspecified | | whether persistent - Primary | + + | Allergic rhinitis due to pollen, unspecified chronicity, unspecified seasonality | + + | Allergic rhinitis due to animal hair and dander, unspecified chronicity | + + | Allergic rhinitis due to dust mite | + + documented in this encounter"
--- OUTSIDE RECORDS SUMMARY | ~2019-11-09 | XMS | Encounter Summary ---
Demographics + + + | Address | [address] | | | [place] [address] | + + + | Home Phone [...] Team Providers + +------+ + | Care Groutman Name | Role | Phone | + [...] Closed | | Radiology | Diagnoses | Blil Arevalo, | | | | | | PAD | DNP [address] | | | | | | (peripheral | [address] | | | | | | artery | [place] | | | | | | disease) | [place] | | | | | | (HCC) | [address] | | | | | | Procedures | Phone: | | | | | | IR Angiogram | [phone] | | | | | | Lower | Fax: | | | | | | Extremity | [phone] | | | | | | Right | | | +--------+--------+ + + + + Reason for Visit Auth/Cert +--------+--------+ + + + + | Status | Reason | Specialty | Diagnoses / | Referred By | Referred To | | | | | Procedures | Contact | Contact | +--------+--------+ + + + + | | | | Diagnoses | | | | | | | PAD | | | | | | | (peripheral | | | | | | | artery | | | | | | | disease) | | | | | | | ([facility]) | | | | | | | Procedures | | | | | | | IR ANGIOGRAM | | | | | | | LOWER | | | | | | | EXTREMITY | | | | | | | RIGHT | | | +--------+--------+ + + + + Encounter Details +--------+ + + + + | Date | Type | Department | Care Team | Description | +--------+ + + + + | 09/27/ | Hospital | [facility] | Bill Arevalo, DNP | PAD (peripheral | | 2020 | Encounter | [facility] | [address] | artery disease) | | | | CLINICAL DECISION | [place] | ([facility]) | | | | [address] | [address] | | | | | [place] | | | | | | [address] | Avel Upton MD | | | | | [phone] | [address] | | | | | | [place] | | | | | | [address] | | | | | | [phone] | | | | | | | [...] + + + | Blood Pressure | 137/72 | 09/28/2019 4:15 PM | | | | | PDT | | + + + + + | Pulse | 94 | 09/28/2019 4:45 PM | | | | | PDT | | + + + + + | Temperature | 36.2 C (97.1 F) | 09/28/2019 11:07 AM | | | | | PDT | | + + + + + | Respiratory Rate | 16 | 09/28/2019 11:07 AM | | | | | PDT | | + + + + + | Oxygen Saturation | 98% | 09/28/2019 4:45 PM | | | | | PDT | | + + + + + | Inhaled Oxygen | - | - | | | Concentration | | | | + + + + + | Weight | 93.1 kg (205 lb 4 | 09/28/2019 11:07 AM | | | | oz) | PDT | | + + + + + | Height | 160 cm (5' 3") | 09/28/2019 11:07 AM | | | | | PDT | | + + + + + | Body Mass Index | 36.36 | 09/28/2019 11:07 AM | | | | | PDT | | + + + + + documented in this encounter Discharge Instructions Rosita Wynn RN - 09/28/2019 Bleeding or Hematoma After Cardiac Catheterization You recently had cardiac catheterization. A catheter was put into your body through a punct ure of an artery in your groin or arm. You now have bleeding from this site. When bleeding o ccurs, it may drip or spurt from the site. Or it may collect in a lump (hematoma) under the skin. This often requires urgent evaluation in an emergency room. First put direct pressure on the site and call 911 or have someone take you to the emergency room. In the emergency ro om, additional pressure will be put on the site to stop bleeding. You will be sent home when the bleeding stops. To prevent repeat bleeding, take some precautions at home. If the bleed ing starts again, follow the advice below. Home care For the next 48 hours: Don't do any strenuous activity. Avoid stair is possible Don't lift anything greater than 10 pounds. If the puncture site is in your arm or wrist, don't lie on that arm. If your puncture site is in the groin, don'tstrain at bowel movements. Don't scrub the site when bathing. It is fine to get it wet after your healthcare provid er says it is OK, but don't scrub it or massage it. If bleeding happens again, call 911. Take the following steps to stop the bleeding until he lp arrives: Lie on your back. Place a clean cloth or gauze pad over the puncture site. Then hold firm pressure right o n the site. Or have someone else apply firm pressure using thegauze pad orwashcloth. Keep your arm straight and raised above the level of your heart if the site is in your a rm or wrist. If the site is in your groin, have someone else hold pressure on the site. Don't press too hard! If you press too hard, your leg and foot (or arm and hand) will no t get blood flow andthe skin under your toenails or fingernails may turn white. The skin s hould look pink, like the toenails on your other foot. When you (or someone) presses on the toenail it will turn white, but when you stop pressing on the nail it will turn pink again. This is called "capillary refill." If there is someone with you, he or she can check it. If your toes, foot, or leg start feeling numb, tingly, or cold, ease up on the pressure, you are probably pressing too hard. As soon as emergency care arrives, they will take over your care. Follow-up care Follow up with your healthcare provider, or as advised. Ask your healthcare provider for a contact number to call. Call 911 Call 911 if any of these occur: Chest pain or pressure Any bleeding from the site Feeling weak or faint Trouble breathing Lump (hematoma) isquickly getting larger Coolness, numbness, tingling, or skin color changes in the leg or arm with the puncture site When to seek medical advice Call your healthcare provider right awayif any of these occur: Increased pain, redness, swelling, or drainage from the puncture site Nausea or vomiting Il[employer]st[employer] last reviewed this educational content on 07/10/201719991536-1369 [employer]. [address] [place] [address]. All righ ts reserved. This information is [...] documented as of this encounter Progress Notes Rosita Moreira RN - 09/28/2019 5:58 PM PDTPatient met discharge criteria, groin site clean, dry and soft. Discharge instructions given, pt verbalized understanding and had no f urther questions. IV D/C. Pt escorted via wheelchair for discharge. Rosita Moreira RNElect ronically signed by Rosita Moreira RN at 09/28/2019 6:00 PM PDTDack, Betzaida Hardy RN - 0 09/28/2019 12:00 PM PDTL, arterial groin site CDI. No adverse events, hematoma, or oozing pre sent. Distal pulses palpable, cap refill WDL, color appropriate for ethnicity. Report to Tobias bolton RN and patient transported to room 1120. Closure device: Perclose Hemostasis: 1306 Betzaida Hood RN 09/28/2019 @ 1306 documented in this en counter H&P Notes Avel Upton MD - 09/28/2019 12:[address] [facility] Service: Vascular Surgery Pre-Operative History & Physical Interval Update There have been no significant clinical changes since the completion of the above H&P. Toda y's physical assessment showed Normal appearance, alert and oriented x 3, and respiratory ef fort normal Moderate Sedation Presedation Assessment completed. The patient was reassessed immediatlely prior to sedation with no significant clinical changes in the exam, including heart and alex gs, since the completion of the H&P. Avel Utpon MD 09/28/2019 *CORE MEASURES REMINDER: If the patient has a known or suspected infection prior to surger y, please add diagnosis to the problem list (consider: Infection 136.9).Electronically sign ed by Avel Upton MD at 09/28/2019 12:13 PM Avel Cooper MD - 09/22/2019 10:45 AM P DT Merged With [facility] [address] [place] [address] Office: [phone] SUBJECTIVE: Mrs. Forte is a pleasant 49 [...] and has previously undergone a 6 w gakona course of abx (via PICC line). The [...] Turbinoplasty; Surgeon: Henok Luther MD; Location: [facility] MAIN OR UPPER GASTROINTESTINAL ENDOSCOPY N/A 08/18/2019 Procedure: EGD; Surgeon: Stepan Magdaleno MD; [place] [facility] [place] [facility] Social History Tobacco [...] MINI PEN NEEDLES 31G X 5 MM [facility] [place] CROW CONTOUR TEST strip 4 strips Daily. [...] mouth Daily. 90 tablet 3 TechLite Lancets [facility] [place] No current facility-administered medications on file prior [...] Rate regular. ABDOMEN: Soft, non-tender, non-distended. SKIN: [place], warm, and dry without rashes or lesions. [...] in cm/sec, waveform analysis: Right lower extremity: ACTUARY prox: 91, triphasic DFA prox: 46, triphasic SFA prox: 104, triphasic SFA mid: 106, triphasic SFA dist: 121, triphasic Pop mid: 94, triphasic CORY prox: 86, triphasic CORY dist: 235, triphasic T SYSTEMS TEST ENGINEER prox: 0, absent SYSTEMS TEST ENGINEER dist: 0, absent Peroneal prox: 33, triphasic Peroneal dist: 0, absent IMPRESSION: RIGHT LEG: Triphasic inflow and outflow, without hemodynamically significant stenosis. Appe ars to be single-vessel runoff via the CORY, with > 50% distal CORY stenosis (113-235 cm/sec). 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 Final Report Signed by: Darleen Phillip, Dank Sign Date/Time: 09/15/2019 7:49 AM ASSESSMENT/PLAN: Discussed US RLE arteries results from 09/13 with the patient, which indicates SYSTEMS TEST ENGINEER and perone al occlusion (appears chronic) [...] Note: Documentation assistance provided by Thiago Arreola (Love). Information re corded by the rahulibe has been reviewed and validated by me. I agree with its contents. Signed by: Love Maria 09/22/19 11:41 AM PDT Avel Upton MD Vascular Surgery documented in this enc ounter Miscellaneous Notes Sedation Documentation - Jay Elizalde Technologist - 09/28/2019 12:57 PM PDT5fr carmencita ation removed, perclose Being inserted, site closed, additional manual pressure held until hemostasis is obtained 1 2:58 PM PDTSedation Documentation - Jay Elizalde Technologist - 09/28/2019 12:56 PM PDT Wire and catheter removed, fcj wire inserted edation Documentation - Jay Elizalde Technologist - 0 09/28/2019 12:50 PM PDTnta catheter inserted, additional images obtained edation Documentation - Jay Elizalde Technologist - 09/28/2019 12:41 PM PDT4fr sheath exchanged for 5fr destination ov er the amplatz wire 12:4 2 PM PDTSedation Documentation - Jay Elizalde Technologist - 09/28/2019 12:31 PM PDTDia gnostic images obtained edation Documentation - Jay Elizalde Technologist - 09/28/2019 12:29 PM PD TLeft femoral artery access being obtained under ultrasound, stiff micropuncture inserted, f ollowed by 4fr sheath 12 :45 PM PDTBrief Op Note - Avel Upton MD - 09/28/2019 12:00 PM PDT [facility] Service: Vascular Surgery Brief Op Note Pre-operative Diagnosis: Critical limb ischemia of right lower extremity with poorly heali ng right foot wound Post-operative Diagnosis: same Procedure(s): Ultrasound guided access of left common femoral artery Selective catheterization of right common femoral artery with right leg runoff Selective catheterization of right anterior tibial artery with right anterior tibial ar teriogram Surgeon: Avel Upton MD Grinder Mill 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 Right femoral and popliteal arteries were widely patent. Only single vessel runoff via right CORY. Right peroneal harpreet ry and SYSTEMS TEST ENGINEER were chronically occluded. Right distal OCRY occludes with corkscrew collateral r econstituting the dorsalis pedis artery. Will need right mid CORY to dorsalis pedis artery b ypass due to critical limb ischemia. Complications: None apparent Condition: stable See dictated operative report for full details. Avel Upton MD 09/28/2019 1:04 PM PDT documented in this enc ounter [...] [place] | | | | | | [address] | | | | | | | | +--------+ + + + + | 01/17/ | Office | Vascular Surgery | Bill Arevalo DNP | | | 2019 | Visit | | [address] | | | | | | [place] | | | | | | [address] | | | | | | | | +--------+ + + + + | 05/22/ | Office | Nephrology | Mariana Cortez W, | | | 2020 | Visit | | MD [address] | | | | | | [address] | | | | | | [place] [address] | | | | | | [phone] | | | | | | | | +--------+ + + + + documented as of this encounter Procedures + +--------+ + + + | Procedure Name | Priori | Date/Time | Associated Diagnosis | Comments | | | ty | | | | + +--------+ + + + | IR ANGIOGRAM LOWER | Routin | 09/28/2019 | PAD (peripheral | Results for this | | EXTREMITY RIGHT | e | 12:14 PM | artery disease) | procedure are in the | | | | PDT | (HCC) | results section. | + +--------+ + + + | CBC WITH | STAT | 09/28/2019 | | Results for this | | DIFFERENTIAL | | 11:15 AM | | procedure are in the | | | | PDT | | results section. | + +--------+ + + + | BASIC METABOLIC | STAT | 09/28/2019 | | Results for this | | PANEL | | 11:15 AM | | procedure are in the | | | | PDT | | results section. | + +--------+ + + + | POC GLUCOSE (NON | Routin | 09/28/2019 | | Results for this | | ORD) | e | 11:01 AM | | procedure are in the | | | | PDT | | results section. | + +--------+ + + + documented in this encounter Results IR Angiogram Lower Extremity [...] SURGEON: Avel | | | MD Won ONCOLOGY TRANSPLANT NETWORK MANAGER: None ANESTHESIA: Moderate sedation and local | [...] was properly identified and brought to the Processing Mgr. The | | | patient was placed [...] | and up sized to a 4 Iranian sheath. A Omni flush catheter was then [...] catheter and | | | the 4 Iranian sheath was removed. A 6 Iranian destination sheath was | | | then [...] the catheter and the 4 | | |Iranian sheath was removed. A 6 Iranian destination sheath was then inserted | | [...] + +---------+ + + CBC with Differential (09/28/2019 11:15 AM PDT) + + + + + + | Component | Value | Ref Range | Performed | Pathologist | | | | | At | Signature | + + + + + + | WBC | 11.92 (H) | 3.80 - 11.00 | [facility] | | | | | K/uL | LABORATORY | | + + + + + + | Red Blood | 3.77 | 3.70 - 5.10 | [facility] | | | Cells | | M/uL | LABORATORY | | + + + + + + | Hemoglobin | 10.9 (L) | 11.3 - 15.5 | [facility] | | | | | g/dL | LABORATORY | | + + + + + + | Hematocrit | 34.2 | 34.0 - 46.0 % | [facility] | | | | | | LABORATORY | | + + + + + + | MCV | 90.7 | 80.0 - 100.0 fl | [facility] | | | | | | LABORATORY | | + + + + + + | MCH | 28.9 | 27.0 - 34.0 pg | [facility] | | | | | | LABORATORY | | + + + + + + | MCHC | 31.9 (L) | 32.0 - 35.5 | [facility] | | | | | g/dL | LABORATORY | | + + + + + + | RDW-SD | 47.6 | 37 - 53 fl | [facility] | | | | | | LABORATORY | | + + + + + + | Platelet | 260 | 150 - 400 K/uL | [facility] | | | Count | | | LABORATORY | | + + + + + + | MPV | 10.9Comment: NO NORMAL | fl | [facility] | [...] + + + + | % | 78.80 | % | [facility] | | | Neutrophils | | | LABORATORY | | + + + + + + | IMMATURE | 0.30 | % | [facility] | | | GRANULOCYTE | | | LABORATORY | | + + + + + + | % | 12.90 | % | [facility] | | | Lymphocytes | | | LABORATORY | | + + + + + + | Monocyte % | 5.10 | % | [facility] | | | | | | LABORATORY | | + + + + + + | Eosinophils | 2.70 | % | [facility] | | | % | | | LABORATORY | | + + + + + + | Basophils % | 0.20 | % | [facility] | | | | | | LABORATORY | | + + + + + + | Neutrophils | 9.39 (H) | 1.90 - 7.40 | [facility] | | | , Absolute | | K/uL | LABORATORY | | + + + + + + | IMMATURE | 0.04Comment: NOTE NEW | 0.00 - 0.07 | [facility] | | | GRANS AB | REFERENCE RANGE | K/uL | LABORATORY | | + + + + + + | Absolute | 1.54 | 1.00 - 3.90 | [facility] | | | Lymphocytes | | K/uL | LABORATORY | | + + + + + + | Absolute | 0.61 | 0.00 - 0.80 | [facility] | | | Monocytes | | K/uL | LABORATORY | | + + + + + + | Eosinophils | 0.32 | 0.00 - 0.50 | [facility] | | | , Absolute | | K/uL | LABORATORY | | + + + + + + | Basophils, | 0.02Comment: Testing | 0.00 - 0.10 | [facility] | | | Absolute | performed at [facility] [place] | K/uL | LABORATORY | | | | [address];[place], [place] | | | | | | [address] | | | | + + + + + + + + | Specimen | + + | Blood | + + + + + + + | Performing | Address | City/State/Zipcode | Phone Number | | Organization | | | | + + + + + | [facility] | [address] | [place] [address] | [phone] | + + + + + Basic Metabolic Panel (09/28/2019 11:15 AM PDT) + + + + + + | Component | Value | Ref Range | Performed | Pathologist | | | | | At | Signature | + + + + + + | Na | 135 | 135 - 145 | [facility] | | | | | mmol/L | LABORATORY | | + + + + + + | K | 5.6 (H)Comment: SLT | 3.5 - 4.9 | [facility] | | | | HEMOLYSIS | mmol/L | LABORATORY | | + + + + + + | Cl | 99 | 99 - 109 mmol/L | [facility] | | | | | | LABORATORY | | + + + + + + | CO2 | 28 | 23 - 32 mmol/L | [facility] | | | | | | LABORATORY | | + + + + + + | Anion Gap | 14 | 5 - 20 mmol/L | [facility] | | | | | | LABORATORY | | + + + + + + | Glucose | 152 (H) | 65 - 99 mg/dL | [facility] | | | | | | LABORATORY | | + + + + + + | BUN | 56 (H)Comment: SLT | 8 - 25 mg/dL | [facility] | | | | HEMOLYSIS | | LABORATORY | | + + + + + + | Creatinine | 1.94 (H) | 0.50 - 1.00 | [facility] | | | | | mg/dL | LABORATORY | | + + + + + + | BUN/Creatin | 29 | | [facility] | | | ine Ratio | | | LABORATORY | | + + + + + + | Calcium | 9.4 | 8.5 - 10.5 | [facility] | | | | | mg/dL | LABORATORY | | + + + + + + | Estimated | 27 (L)Comment: GFR <60: | >60 | [facility] | | | GFR | CHRONIC [...] | | | | | | MDRD [facility] traceable | | | | | | equation.Testing | | | | | | performed at [facility] [place] | | | | | | [facility];[place], [place] | | | | | | [address] | | | | + + + + + + + + | Specimen | + + | Blood | + + + + + + + | Performing | Address | City/State/Zipcode | Phone Number | | Organization | | | | + + + + + | [facility] | [address] | [place] [address] | [phone] | + + + + + POC Glucose (09/28/2019 11:01 AM PDT) + + + + + + | Component | Value | Ref Range | Performed | Pathologist | | | | | At | Signature | + + + + + + | Glucose, | 163 (H)Comment: Testing | 65 - 99 mg/dL | [facility] | | | POC | performed at [facility] [place] | | LABORATORY | | | | [address];[place] | | | | | | [address] | | | | + + + + + + + + | Specimen | + + | | + + + + + + + | Performing | Address | City/State/Zipcode | Phone Number | | Organization | | | | + + + + + | [facility] | [address] | [place] [address] | [phone] | + + + + + documented [...] | | | + +--------+ +--------+------+------+ | fentaNYL (PF) injection | Given | 09/28/19 | 50 mcg | | | | Intravenous, PRN, Starting Wed | | 20 12:27 | | | | | 09/28/19 at 1227 | | PM PDT | | | | + +--------+ +--------+------+------+ +---+---+ | | | +---+---+ + +-------+ +--------+---+---+ | heparin 1,000 units/mL | Given | 09/28/19 | 6,000 | | | | injection Intravenous, PRN, | | 20 12:40 | Units | | | | Starting Thu09/28/19 at 1240 | | PM PDT | | | | + +-------+ +--------+---+---+ +---+---+ | | | +---+---+ + +-------+ +--------+---+---+ | iohexol (OMNIPAQUE 240) 240 | Given | 09/28/19 | 43 mLs | | | | mg/mL injection Intravenous, | | 20 1:02 | | | | | PRN, Starting 09/28/19 at 1302 | | PM PDT | | | | + +-------+ +--------+---+---+ +---+---+ | | | +---+---+ + +-------+ +--------+---+---+ | lidocaine 1% injection PRN, | Given | 09/28/19 | 10 mLs | | | | Starting 09/28/19 at 1227 | | 20 12:27 | | | | | | | PM PDT | | | | + +-------+ +--------+---+---+ +---+---+ | | | +---+---+ + +-------+ +------+---+---+ | midazolam (VERSED) 1 mg/mL | Given | 09/28/19 | 1 mg | | | | injection Intravenous, PRN, | | 20 12:27 | | | | | Starting 09/28/19 at 1227 | | PM PDT | | | | + +-------+ +------+---+---+ +---+---+ | | | +---+---+ + +---------+ +---+-------+---+ | sodium chloride 0.9% (NS) | New Bag | 09/28/19 | | 100 | | | infusion at 100 mL/hr, | | 20 11:15 | | mL/hr | | | Intravenous, CONTINUOUS, Starting | | AM PDT | | | | | 09/28/19 at 1100, Pre-op | | | | | | + +---------+ +---+-------+---+ +---+---+ | | | +---+---+ documented in this encounter
--- OUTSIDE RECORDS SUMMARY | ~2019-11-09 | XMS | Encounter Summary ---
Demographics + + + | Address | [address] | | | [place] [address] | + + + | Home Phone [...] Author + + + | Author | [facility] | | | and [place] | + + + | Organization | [facility] | | | [...] Team Providers + +------+ + | Care Group Product Manager Name | Role | Phone | [...] | | | to animal | [address] | [address] | | | | | (cat) (dog) | [place], | [address] [place] | | | | | hair and | [place] [address] | [place] | | | | | dander | Phone: | [phone] | | | | | Non-seasonal | [phone] | Phone: | | | | | allergic | Fax: | [phone] | | | | | rhinitis due | [phone] | Fax: | | | | | to pollen | | [phone] | | | | | Extrinsic | [...] | | | | | | | [place] | | | | | | | IMMUNOTHERAP | | | | | | | Y, ONE | | | | | | | INJECTION | | | | | | | [place] | | | | | | | IMMUNOTHERAP | | | | | | | Y, 2+ | | | | | | | INJECTIONS | | | | | | | [place] PROFES | | | | | | | SVC,IMMUNOTH | | | | | | | ER,SINGLE/MU | | | | | | | LT AGS | | | +--------+ + + + + + Encounter Details +--------+ + + + + | Date | Type | Department | Care Team | Description | +--------+ + + + + | 11/20/ | Clinical | [facility] | Mehrdad Thomas MD | Extrinsic asthma, | | 2017 | Support | OTOLARYNGOLOGY [address] | [address], [place] | unspecified asthma | | | | [address] | [address] [place] | severity, | | | | [place] | [address] | unspecified whether | | | | [address] | | complicated, | | | | [phone] | | unspecified whether | | | [...] encounter Progress Notes Domenica Meredith RN - 11/20/2016 4:00 PM PDTPatient presents with epi-pen & inhaler. No ac tive wheezing or cough associated with asthma today. Denies delayed reaction from previous a llergy injection. No fever or allergy related rash. No recent heavy exposure to allergens. N o plans for strenuous exercise immediately before or after injection today.Electronically si gned by Domenica Meredith RN at 11/20/2016 4:36 PM PDTdocumented in this encounter Plan of [...] | | | | | [address] [place] | | | | | | [address] | | | | | | | | +--------+ + + + + | 05/22/ | Office | Nephrology | Mariana Cortez, | | | 2020 | Visit | | MD [address] | | | | | | [address] | | | | | | [place] [address] | | | | | | [phone] | | | | | | | [...]
--- OUTSIDE RECORDS SUMMARY | ~2019-11-09 | XMS | Encounter Summary ---
Demographics + + + | Address | [address] | | | [place] [address] | + + + | Home Phone | | + + + | Preferred Language | Unknown | + + + | Marital Status | Single | + + + | Synagogue Affiliation | Unknown | + + + [...] Team Providers + +------+ + | Care Paediatric Physiotherapist Name | Role | Phone | + +------+ + | Mehrdad Avalos MD | PCP | | + +------+ + Reason for Visit +---------+ + | Reason | Comments | +---------+ + | Results | CMP, CBC, ESR, CRP | +---------+ + Encounter Details +--------+ + + + + | Date | Type | Department | Care Team | Description | +--------+ + + + + | 08/09/ | Documentati | [facility] | Louie Henry, | Results (CMP, CBC, | | 2020 | on | INFECTIOUS DISEASE | Carmine Kebede MD | ESR, CRP) | | | | [address] | [address] | | | | | [place], [place] | [place] [address] | | | | | [address] | [phone] | | | | | [phone] | | | +--------+ + + + [...] of this encounter Progress Notes Joanna Alfonso, Sixth Grade Teacher - 08/10/2019 9:41 AM PDTCBC, CMP, ESR, CRP received from [employer], and abstracted into [employer] and sent to scan. Joanna Alfonso. CMA documented in this encounter Plan of Treatment +--------+ + + + + | Date | Type | Specialty | Care Team | Description | +--------+ + + + + | 01/17/ | Appointment | Radiology | Bill Arevalo DNP | | | 2019 | | | [address] | | | | | | [place] | | | | | | [id number] | | | | | | | | +--------+ + + + + | 01/17/ | Office | Vascular Surgery | Bill Arevalo DNP | | | 2019 | Visit | | [address] | | | | | | [place] | | | | | | [address] | | | | | | | | +--------+ + + + + | 05/22/ | Office | Nephrology | Mariana Cortez W, | | | 2020 | Visit | | MD [address] | | | | | | [address] | | | | | | [place] [address] | | | | | | [phone] | | | | | | | | +--------+ + + + + documented as of this encounter Procedures + +--------+ + + + | Procedure Name | Priori | Date/Time | Associated Diagnosis | Comments | | | ty | | | | + +--------+ + + + | SEDIMENTATION RATE | Routin | 08/09/2019 | | | | | e | 5:50 PM | | | | | | PDT | | | + +--------+ + + + | CBC WITH | Routin | 08/09/2019 | | Results for this | | DIFFERENTIAL | e | 5:50 PM | | procedure are in the | | | | PDT | | results section. | + +--------+ + + + | C-REACTIVE PROTEIN | Routin | 08/09/2019 | | Results for this | | | e | 5:50 PM | | procedure are in the | | | | PDT | | results section. | + +--------+ + + + | COMPREHENSIVE | Routin | 08/09/2019 | | Results for this | | METABOLIC PANEL | e | 5:50 PM | | procedure are in the | | | | PDT | | results section. | + +--------+ + + + documented in this encounter Results C-Reactive Protein (08/09/2019 5:50 PM PDT) + + + + + + | Component | Value | Ref Range | Performed | Pathologist | | | | | At | Signature | + + + + + + | CRP | 14.9 (A) | 0 - 5 mg/L | [...] | + +---------+ + + Sedimentation Rate (08/09/2019 5:50 PM PDT) + + | Specimen | + + | Blood | + + + +---------+ + + | Performing | Address | City/State/Zipcode | Phone Number | | Organization | | | | + +---------+ + + | EXTERNAL LAB | | | | + +---------+ + + Comprehensive Metabolic Panel (08/09/2019 5:50 PM PDT) + +---------+ + + + | Component | Value | Ref Range | Performed | Pathologist | | | | | At | Signature | + +---------+ + + + | Na | 138 | 132 - 143 | EXTERNAL | | | | | mmol/L | LAB | | + +---------+ + + + | K | 5.2 (A) | 3.6 - 5.1 | EXTERNAL | | | | | mmol/L | LAB | | + +---------+ + + + | Cl | 102 | 95 - 112 mmol/L | EXTERNAL | | | | | | LAB | | + +---------+ + + + | CO2 | 25 | 19 - 31 mmol/L | EXTERNAL | | | | | | LAB | | + +---------+ + + + | Anion Gap | 16 | 7 - 21 mmol/L | EXTERNAL | | | | | | LAB | | + +---------+ + + + | Glucose | 184 (A) | 70 - 100 mg/dL | EXTERNAL | | | | | | LAB | | + +---------+ + + + | BUN | 47 (A) | 6 - 23 mg/dL | EXTERNAL | | | | | | LAB | | + +---------+ + + + | CREATININE | 1.71 | 0.60 - 28.6 | EXTERNAL | | | (PAML) | | mg/dL | LAB | | + +---------+ + + + | GFR | 8.4 (A) | 8.5 - 10.3 | EXTERNAL | | | ESTIMATE | | mg/dL | LAB | | | (REF) | | | | | + +---------+ + + + | BUN/Creatin | 27.5 | 6.0 - 28.6 | EXTERNAL | | | ine Ratio | | | LAB | | + +---------+ + + + | Calcium | 8.4 (A) | 8.5 - 10.3 | EXTERNAL | | | | | mg/dL | LAB | | + +---------+ + + + | AST | 14 | 13 - 39 U/L | EXTERNAL | | | | | | LAB | | + +---------+ + + + | ALT | 20 | 7 - 52 U/L | EXTERNAL | | | | | | LAB | | + +---------+ + + + | Alkaline | 82 | 31 - 130 U/L | EXTERNAL | | | Phosphatase | | | LAB | | + +---------+ + + + | Bilirubin, | 0.2 | 0.0 - 1.2 mg/dL | EXTERNAL | | | Total | | | LAB | | + +---------+ + + + | Total | 6.4 | 6.0 - 8.3 g/dL | EXTERNAL | | | Protein | | | LAB | | + +---------+ + + + | Albumin | 3.1 (A) | 3.5 - 5.0 g/dL | EXTERNAL | | | | | | LAB | | + +---------+ + + + | Globulin | 3.3 | 1.8 - 3.5 g/dL | EXTERNAL | | | | | | LAB | | + +---------+ + + + | A/G Ratio | [...] + +---------+ + + CBC with Differential (08/09/2019 5:50 PM PDT) + + + + + + | Component | Value | Ref Range | Performed | Pathologist | | | | | At | Signature | + + + + + + | WBC | 13.0 (A) | 4.5 - 11.0 K/uL | EXTERNAL | | | | | | LAB | | + + + + + + | RBC COUNT. | 1.85 (A) | 3.8 - 5.1 M/uL | EXTERNAL | | | | | | LAB | | + + + + + + | Hemoglobin | 5.8 (A) | 12.0 - 16.0 | EXTERNAL | | | | | g/dL | LAB | | + + + + + + | Hct | 18.1 (A) | 35 - 45 % | EXTERNAL | | | | | | LAB | | + + + + + + | MCV | 97.5 | 81 - 99 fl | EXTERNAL | | | | | | LAB | | + + + + + + | RDW | 15.0 | 10.5 - 15.0 % | EXTERNAL | | | | | | LAB | | + + + + + + | MCH, POC | 31 | 27 - 33 pg | EXTERNAL | | | | | | LAB | | + + + + + + | MCHC | 32 | 30 - 36 g/dL | EXTERNAL | | | | | | LAB | | + + + + + + | NEUTROPHILS | 78.9 | 39 - 80 % | EXTERNAL | | | BL | | | LAB | | + + + + + + | LYMPHOCYTES | 13.1 (A) | 24 - 44 % | EXTERNAL | | | BL | | | LAB | | + + + + + + | Monocyte % | 3.6 | 0 - 12 % | EXTERNAL | | | | | | LAB | | + + + + + + | EOSINOPHILS | 1.8 | 0 - 6 % | EXTERNAL | | | BL | | | LAB | | + + + + + + | Basophils % | 1.5 | 0 - 2 % | EXTERNAL [...]
--- OUTSIDE RECORDS SUMMARY | ~2019-11-09 | XMS | Encounter Summary ---
Demographics + + + | Address | [address] | | | [place] [address] | + + + | Home Phone [...] Team Providers + +------+ + | Care Service Representative Name | Role | Phone | [...] | +--------+ + + + + | 04/30/ | Clinical | [facility] [place] | Henok Luther MD | Non-seasonal | | 2017 | Support | OTOLARYNGOLOGY [address] | [address] | allergic rhinitis | | | | [address] [facility] [address] | [address] [place], [place] | due to pollen | | | | [place], [place] | [address] | (Primary Dx); | | | | [address] | | Allergic rhinitis | | | | [phone] | | due to animal (cat) | [...] encounter Progress Notes Narda Lay RN - 04/30/2016 4:12 PM PDTPatient presents with epi-pen & inhaler. [...] [place] | | | | | | [address] | | | | | | | | +--------+ + + + + | 01/17/ | Office | Vascular Surgery | Bill Arevalo DNP | | | 2019 | Visit | | [address] | | | | | | [place] | | | | | | [address] | | | | | | | | +--------+ + + + + | 05/22/ | Office | Nephrology | Mariana Cortez, | | | 2020 | Visit | | [address] | | | | | | [address] | | | | | | [place] [address] | | | | | | [phone] | | | | | | | [...]
--- OUTSIDE RECORDS SUMMARY | ~2019-11-09 | XMS | Encounter Summary ---
Demographics + + + | Address | [address] | | | [place] [address] | + + + | Home Phone [...] Providers + +------+ + | Care Sap Technical Developer Name | Role | Phone | + +------+ + | Ronel Jacobson PA-C | PCP | | + +------+ + Reason for Visit + + + | Reason | Comments | + + + | Follow-up | | + + + Evaluate & Treat (Routine) +--------+--------+ + + + + | Status | Reason | Specialty | Diagnoses / | Referred By | Referred To | | | | | Procedures | Contact | Contact | +--------+--------+ + + + + | Closed | | Nephrology | Diagnoses | Kavon, | Cortez, | | | | | Chronic | Ronel H, | Mariana W, | | | | | kidney | PA-C [address] | MD [address] | | | | | disease, | [address] | | | | | stage 3 | [place] | [address] | | | | | (moderate) | [address] | [place], | | | | | (HCC) Renal | [place], | [place] [address] | | | | | tubular | [place] | Phone: | | | | | acidosis, | [address] | [phone] | | | | | type 4 | Phone: | Fax: | | | | | Hypertension | [phone] | [phone] | | | | | | Fax: | | | | | | Proteinuria | [phone] | | | | | | Procedures | | | | | | | [place] OFFICE | | | | | | | OUTPATIENT | | | | | | | VISIT 25 | | | | | | | MINUTES | | | +--------+--------+ + + + + Encounter Details +--------+---------+ + + + | Date | Type | Department | Care Team | Description | +--------+---------+ + + + | 05/13/ | Office | [facility] | Mariana Cortez, | CKD (chronic kidney | | 2017 | Visit | NEPHROLOGY [address] | [address] | disease) stage 3, | | | | [address] | [address] [place] | GFR 30-59 ml/min | | | | [place] | [facility] [place] [address] | ([facility]ERLY [facility]) (Primary Dx); | | | | [address] | [phone] | Proteinuria, | | | | [phone] | | unspecified type; | | | | | | Essential | | | | | | hypertension; Renal | | | | | | tubular acidosis, | | | | | | type 4 | +--------+---------+ + + + [...] + + + | Blood Pressure | 142/80 | 05/13/2016 11:23 AM | | | | | PDT | | + + + + + | Pulse | 100 | 05/13/2016 11:23 AM | | | | | PDT | | + + + + + | Temperature | - | - | | + + + + + | Respiratory Rate | 14 | 05/13/2016 11:23 AM | | | | | PDT | | + + + + + | Oxygen Saturation | - | - | | + + + + + | Inhaled Oxygen | - | - | | | Concentration | | | | + + + + + | Weight | 90.3 kg (199 lb) | 05/13/2016 11:23 AM | | | | | PDT | | + + + + + | Height | 160 cm (5' 3") | 05/13/2016 11:23 AM | | | | | PDT | | + + + + + | Body Mass Index | 35.25 | 05/13/2016 11:23 AM | | | | | PDT | | + + + + + documented in this encounter Patient Instructions Patient Instructions Mariana Cortez MD - 05/13/2016 11:40 AM PDTStart sodium bicarbonat e 650 mg tablet once a day. documented in this encounter Progress Notes Mariana Cortez MD - 05/13/2016 11:27 AM PDTFormatting of this note might be different f rom the original. Nephrology Follow-up Visit Visit date: 05/13/2016 Primary care provider: Ronel Jacobson PA-C Follow-up type: 6 months HPI: July Forte is a 45 y.o. female with chronic kidney disease, RTA type 4, hyperte nsion, type 2 diabetes mellitus. Pt is feeling well. Pt reports one episode of hypoglycemia. Pt had rebound hyperglycemia, subsequently. Pt denies shortness of breath, chest pain, edema, dysuria. ROS: A 6-system review was performed, and was negative or noncontributory other than as sta diego above. PMH: Patient Active Problem List Diagnosis Date Noted Renal tubular acidosis, type 4 DM type 2 (diabetes mellitus, type 2) ([facility]) 10/13/2012 Hypertension 10/13/2012 Proteinuria 10/13/2012 CKD (chronic kidney disease) stage 3, GFR 30-59 ml/min ([facility]) 10/13/2012 Note Last Updated: 10/13/2012 Renal ultrasound 09/16/12: right kidney 13 cm, left kidney 12.4 cm. Proteinuric. Migraine headache Current Outpatient Prescriptions Medication Sig albuterol 90 mcg/puff inhaler Inhale 2 puffs into the lungs every 6 hours as needed. Alcohol Swabs 70 % PADS by Does not apply route. amLODIPine (NORVASC) 5 mg tablet Take 5 mg by mouth Daily. B-D UF III MINI PEN NEEDLES 31G X 5 MM [facility] [place]OW CONTOUR TEST strip 4 strips Daily. Blood Glucose Monitoring Suppl (CONTOUR BLOOD GLUCOSE SYSTEM) JOANNA by Does not apply ro [place]. bumetanide (BUMEX) 0.5 mg tablet Take 2 [...] the muscle as needed for Anaphy laxis. fluticasone (FLONASE) 50 mcg/nasal spray 1 spray [...] tablet Take 1 tablet by mouth Daily. TechLite Lancets [facility] No current facility-administered medications for this visit. Physical Exam: Filed Vitals: 05/13/16 1123 BP: 142/80 Pulse: 100 Resp: 14 Height: 1.6 m (5' 3") Weight: 90.266 kg (199 lb) Constitutional: Appears well-developed and well-nourished. No distress. Cardiovascular: Normal rate, regular rhythm and normal heart sounds. No peripheral edema. Lungs: Respiratory effort normal and breath sounds normal. No crackles or wheezes. Abdominal: Soft. Bowel sounds are present. Skin: Skin is warm. Neurological: Alert. Memory intact. Reviewed labs with patient. Office Visit on 05/13/2016 Component Date Value Ref Range Status Color, UA, POC 05/13/2016 Noy* Yellow, Light Yellow Final Clarity, UA, POC 05/13/2016 Cloudy Final Glucose, UA, POC 05/13/2016 1000 mg/dL* Negative Final Bilirubin, UA, POC 05/13/2016 Negative Negative Final Ketones, UA, POC 05/13/2016 Negative Negative, 100 mg/dL Final Specific [place], UA, [facility] 05/13/2016 1.005 1.001 - 1.030 Final Blood, UA, [facility] 05/13/2016 Large* Negative Final pH, UA, [facility] 05/13/2016 5.0 5.0, 6.0, 7.0, 8.0, 5.5, 6.5, 7.5 Final Protein, UA, POC 05/13/2016 30 mg/dL* Negative Final Urobilinogen, UA, POC 05/13/2016 0.2 0.2, Negative, Normal, < 0.2 mg/dL, 1 mg/dL, < 0. 2 E.U./dl, 1.0 E.U./dL, 0.2 mg/dL Final Nitrite, UA, POC 05/13/2016 Negative Negative Final Leukocyte Esterase, UA, [facility] 05/13/2016 Trace* Negative Final Abstract on 05/08/2016 Component Date Value Ref Range Status Creatinine, External 05/08/2016 1.2* 0.5 - 1 Final eGFR, External 05/08/2016 49 Final Sodium, External 05/08/2016 137 135 - 145 Final Potassium, External 05/08/2016 5.2 3.5 - 5.3 Final Chloride, External 05/08/2016 103 97 - 107 Final Carbon Dioxide, External 05/08/2016 20* 22 - 29 Final Calcium, External 05/08/2016 8.9 Final Protein, Total, External 05/08/2016 6.8 6.2 - 8.2 Final Albumin, External 05/08/2016 3.2* 0.1 - 1.5 Final Bilirubin, Total, External 05/08/2016 0.2 0.1 - 1.5 Final ALP, External 05/08/2016 75 35 - 104 Final AST, External 05/08/2016 13 0 - 32 Final ALT, External 05/08/2016 9 0 - 33 Final Glucose, External 05/08/2016 193* 8 - 25 Final BUN, External 05/08/2016 40* 8 - 25 Final ASSESSMENT AND PLAN: ICD-10-CM ICD-9-CM 1. CKD (chronic kidney disease) stage 3, GFR 30-59 ml/min (HCC) N18.3 585.3 Likely due to d iabetic nephropathy. -Kidney function is at baseline. 2. Proteinuria, unspecified type R80.9 791.0 3. Essential hypertension I10 401.9 On losartan, amlodipine, bumetanide. To optimize BP to less than 140/<90, pt may benefit from addition of 4th agent, such as car vedilol. 4. Renal tubular acidosis, type 4 N25.89 588.89 -Will restart sodium bicarbonate 650 mg QDA Y. Goal serum bicarb 24-26. Return in 1 year: cbc, renal, pth, vit d, ua, upcr. Cc: Ronel Jacobson PA-C documented in this encounter Plan of Treatment [...] [place] | | | | | | [address] | | | | | | | | +--------+ + + + + | 01/17/ | Office | Vascular Surgery | Bill Arevalo DNP | | | 2019 | Visit | | [address] | | | | | | [place] | | | | | | [address] | | | | | | | | +--------+ + + + + | 05/22/ | Office | Nephrology | Mariana Cortez, | | | 2020 | Visit | | [address] | | | | | | [address] [place] | | | | | | [place] [address] | | | | | | [phone] | | | | | | | | +--------+ + + + + documented as of this encounter Procedures + +--------+ + + + | Procedure Name | Priori | Date/Time | Associated Diagnosis | Comments | | | ty | | | | + +--------+ + + + | LABS - EXTERNAL SCAN | | 05/08/2017 | | Results for this | | | | 12:00 AM | | procedure are in the | | | | PDT | | results section. | + +--------+ + + + | PROTEIN/CREATININE | Routin | 05/13/2016 | Proteinuria, | Results for this | | RATIO, URINE | e | 12:13 PM | unspecified type | procedure are in the | | | | PDT | CKD (chronic kidney | results section. | | | | | disease) stage 3, | | | | | | GFR 30-59 ml/min | | | | | | ([facility]) | | + +--------+ + + + | URINALYSIS WITH | Routin | 05/13/2016 | Proteinuria, | Results for this | | MICROSCOPIC | e | 11:21 AM | unspecified type | procedure are in the | | | | PDT | CKD (chronic kidney | results section. | | | | | disease) stage 3, | | | | | | GFR 30-59 ml/min | | | | | | ([facility]) | | + +--------+ + + + | POCT URINALYSIS, | Routin | 05/13/2016 | Proteinuria, | Results for this | | AUTO WITH CONF | e | 11:10 AM | unspecified type | procedure are in the | | | | PDT | CKD (chronic kidney | results section. | | | | | disease) stage 3, | | | | | | GFR 30-59 ml/min | | | | | | ([facility]) | | + +--------+ + + + | LABS - EXTERNAL SCAN | | 05/07/2016 | | Results for this | | | | 12:00 AM | | procedure are in the | | | | PDT | | results section. | + +--------+ + + + documented in this encounter Results LABS - EXTERNAL SCAN (05/08/2017 12:00 AM PDT) + + + | Narrative | Performed At | + + + | Ordered by an | | | unspecified provider. | | + + + Protein/Creatinine Ratio, Urine (05/13/2016 12:13 PM PDT) + + + + + + | Component | Value | Ref Range | Performed | Pathologist | | | | | At | Signature | + + + + + + | Protein, | 23 (H) | <6 mg/dL | [facility] | | | Urine | | | [facility] | | | | | | [facility] | | | | | [facility] - | | | | | | LABORATORY | | + + + + + + | Creatinine, | 12 | mg/dL | [facility] | | | Urine, | | | [facility] | | | [facility] | | | [facility] | | | | | | [facility] - | | | | | | LABORATORY | | + + + + + + | PRO/CREA | 1.92 (H) | <0.20 mg/mg | [facility] | | | RATIO,URINE | | | [facility] | | | | | | [facility] | | | | | | [facility] - | | | | | | LABORATORY | | + + + + + + + + | Specimen | + + | Urine | + + + + + + + | Performing | Address | City/State/Zipcode | Phone Number | | Organization | | | | + + + + + | [facility] | [address] | [place] | [phone] | | [facility] | | [address] | | | - LABORATORY | | | | + + + + + Urinalysis With Microscopic (05/13/2016 11:21 AM PDT) + + + + + + | Component | Value | Ref Range | Performed | Pathologist | | | | | At | Signature | + + + + + + | Color, | Yellow | Light Yellow, | [facility] | | | Urine | | Yellow, Straw | [facility] | | | | [facility] | | | | | | [facility] - | | | | | | LABORATORY | | + + + + + + | Clarity, | Clear | Clear | [facility] | | | Urine | | | [facility] | | | | | | [facility] | | | | | | [facility] - | | | | | | LABORATORY | | + + + + + + | pH, Urine | 5.0 | 5.0 - 8.0 | [facility] | | | | | | [facility] | | | | | | [facility] | | | | | | [facility] - | | | | | | LABORATORY | | + + + + + + | Specific | 1.002 | 1.001 - 1.030 | [facility] | | | [place], | | | [facility] | | | Urine | | | MEDICAL | | | | | | CENTER - | | | | | | LABORATORY | | + + + + + + | Protein, | 30 mg/dL (A) | Negative | [facility] | | | Urine | | | [facility] | | | | | | [facility] | | | | | | [facility] - | | | | | | LABORATORY | | + + + + + + | Blood, | Large (A) | Negative | [facility] | | | Urine | | | [facility] | | | | | | [facility] | | | | | | [facility] - | | | | | | LABORATORY | | + + + + + + | Glucose, | >=500 mg/dL (A) | Negative | [facility] | | | Urine | | | [facility] | | | | | | [facility] | | | | | | [facility] - | | | | | | LABORATORY | | + + + + + + | Ketones, | Negative | Negative | [facility] | | | Urine | | | [facility] | | | | | | [facility] | | | | | | [facility] - | | | | | | LABORATORY | | + + + + + + | Bilirubin, | Negative | Negative | [facility] | | | Urine | | | [facility] | | | | | | [facility] | | | | | | CENTER - | | | | | | LABORATORY | | + + + + + + | Nitrite, | Negative | Negative | [facility] | | | Urine | | | [facility] | | | | | | MEDICAL | | | | | | CENTER - | | | | | | LABORATORY | | + + + + + + | Leukocyte | Trace (A) | Negative | [facility] | | | Esterase, | | | [facility] | | | Urine | | | MEDICAL | | | | | | CENTER - | | | | | | LABORATORY | | + + + + + + | Urobilinoge | Negative | 0.2 mg/dL, 1.0 | [facility] | | | n, Urine | | mg/dL, Negative | [facility] | | | | | | MEDICAL | | | | | | CENTER - | | | | | | LABORATORY | | + + + + + + | White Blood | 15-25 (A) | 0 - 2 /HPF | [facility] | | | Cells, | | | [facility] | | | Urine | | | MEDICAL | | | | | | CENTER - | | | | | | LABORATORY | | + + + + + + | White Blood | Few (A) | None Seen /HPF | [facility] | | | Cell | | | [facility] | | | Clumps, | | | MEDICAL | | | Urine | | | CENTER - | | | | | | LABORATORY | | + + + + + + | Red Blood | >100 (A) | 0 - 2 /HPF | [facility] | | | Cells, | | | [facility] | | | Urine | | | MEDICAL | | | | | | CENTER - | | | | | | LABORATORY | | + + + + + + | Squamous | 25-50 (A) | 0 - 2 /LPF | [facility] | | | Epithelial | | | [facility] | | | Cells, | | | MEDICAL | | | Urine | | | CENTER - | | | | | | LABORATORY | | + + + + + + | Bacteria, | 1+ (A) | Negative /HPF | [facility] | | | Urine | | | [facility] | | | | | | MEDICAL | | | | | | CENTER - | | | | | | LABORATORY | | + + + + + + | Mucus, | Present (A) | Negative /LPF | [facility] | | | Urine | | | [facility] | | | | | | MEDICAL | | | | | | CENTER - | | | | | | LABORATORY | | + + + + + + + + | Specimen | + + | Urine | + + + + + + + | Performing | Address | City/State/Zipcode | Phone Number | | Organization | | | | + + + + + | [facility] | [address] | [place] | [phone] | | [facility] | | [address] | | | - LABORATORY | | | | + + + + + POCT Urinalysis Dipstick Automated (05/13/2016 11:10 AM PDT) + + + + + + | Component | Value | Ref Range | Performed | Pathologist | | | | | At | Signature | + + + + + + | Color, UA, | Noy (A) | Yellow, Light | | | | POC | | Yellow | | | + + + + + + | Clarity, | Cloudy | | | | | UA, POC | | | | | + + + + + + | Glucose, | 1000 mg/dL (A) | Negative | | | [...] + + + + | Specific | 1.005 | 1.001 - 1.030 | | | | [place], | | | | | | UA, [...] + + + + | Protein, | 30 mg/dL (A) | Negative | | | [...] specimen | | (specimen) | + + LABS - EXTERNAL SCAN (05/07/2016 12:00 AM PDT) + + + | [...] Stage III (moderate) | + + | Proteinuria, unspecified type | + + | Essential hypertension Unspecified essential hypertension | + + | Renal tubular acidosis, type 4 Other specified disorders resulting from impaired | | renal function | + + documented in this encounter
--- OUTSIDE RECORDS SUMMARY | ~2019-11-09 | XMS | Encounter Summary ---
Demographics + + + | Address | [address] | | | [place] [address] | + + + | Home Phone [...] Team Providers + +------+ + | Care Quality Control Operator Name | Role | Phone | + +------+ + PCP | Unavailable | + +------+ + Encounter Details +--------+ + + + + | Date | Type | Department | Care Team | Description | +--------+ + + + + | 10/07/ | Abstract | [facility] | Mariana Cortez W, | | | 2012 | | NEPHROLOGY [address] | MD [address] | | | | | [address] | [address] [place] | | | | | [place], [place] | [place] [address] | | | | | [address] | [phone] | | | | | [phone] | | | +--------+ + + + [...] [place] | | | | | | [address] | | | | | | | | +--------+ + + + + | 01/17/ | Office | Vascular Surgery | Bill Arevalo DNP | | | 2019 | Visit | | [address] | | | | | | [place] | | | | | | [address] | | | | | | | | +--------+ + + + + | 05/22/ | Office | Nephrology | Mariana Cortez, | | | 2020 | Visit | | MD [address] | | | | | | [address] [place] | | | | | | [place] [address] | | | | | | [phone] | | | | | | | | +--------+ + + + + documented as of this encounter Procedures + +--------+ + + + | Procedure Name | Priori | Date/Time | Associated Diagnosis | Comments | | | ty | | | | + +--------+ + + + | PROTEIN/CREATININE | Routin | 10/06/2012 | | Results for this | | RATIO, URINE | e | | | procedure are in the | | | | | | results section. | + +--------+ + + + documented in this encounter Results Protein/Creatinine Ratio, Urine (10/06/2012) + +-------+ + + + | Component | Value | Ref Range | Performed | Pathologist | | | | | At | Signature | + +-------+ + + + | PRO/CREA | 3.9 | mg/mg | EXTERNAL | | | [...]
--- OUTSIDE RECORDS SUMMARY | ~2019-11-09 | XMS | Encounter Summary ---
Demographics + + + | Address | [address] | | | [place] [address] | + + + | Home Phone [...] Team Providers + +------+ + | Care Principal Engineer Name | Role | Phone | [...] | | | rhinitis due | [place] [address] | [address] Phone: | | | | | to animal | Phone: | [phone] | | | | | (cat) (dog) | [phone] | Fax: | | | | | hair and | Fax: | [phone] | | | | | dander | [phone] | | | | | | Allergic [...] + | 04/29/ | Clinical | [facility] [place] | Henok Luther MD | Allergic rhinitis | | 2016 | Support | OTOLARYNGOLOGY [address] | [address] | due to pollen | | | | [address] | [address] [place] | (Primary Dx); | | | | [place] | [address] | Allergic rhinitis | | | | [address] | | due to animal (cat) | | | | [phone] | | (dog) hair and | | [...] encounter Progress Notes Modesta Benitez RN - 04/30/2015 4:00 PM PDTPatient presents with epi-pen & inhaler . No active wheezing or cough associated with asthma today. Denies delayed reaction from pre vious allergy injection. No fever or allergy related rash. No recent heavy exposure to aller gens. No plans for strenuous exercise immediately before or after injection today.Electronic ally signed by Modesta Benitez RN at 04/30/2015 4:41 PM PDTdocumented in this encoun ter Plan [...] [place] | | | | | | [address] | | | | | | | | +--------+ + + + + | 05/22/ | Office | Nephrology | Mariana Cortez, | | | 2020 | Visit | | MD Constantine Hua [address] | | | | | | [address] [place] | | | | | | [place] [address] | | | | | | [phone] | | | | | | | [...]
--- OUTSIDE RECORDS SUMMARY | ~2019-11-09 | XMS | Encounter Summary ---
Demographics + + + | Address | [address] | | | [place] [address] | + + + | Home Phone [...] Team Providers + +------+ + | Care Well Driller Name | Role | Phone | + [...] | | | rhinitis due | [place] [address] | [address] Phone: | | | | | to animal | Phone: | [phone] | | | | | (cat) (dog) | [phone] | Fax: | | | | | hair and | Fax: | [phone] | | | | | dander | [phone] | | | | | | Allergic [...] | +--------+ + + + + | 07/10/ | Clinical | [facility] [place] | Henok Luther MD | Allergic rhinitis | | 2016 | Support | OTOLARYNGOLOGY [address] | [address] | due to pollen | | | | [address] | [address] [place] | (Primary Dx); | | | | [place] | [address] | Allergic rhinitis | | | | [address] | | due to animal (cat) | | | | [phone] | | (dog) hair and | | | | | | dander; Non-seasonal | | | | | | allergic rhinitis; | | | | | | Unspecified [...] encounter Progress Notes Modesta Benitez RN - 07/11/2015 10:36 AM PDTPatient presents with epi-pen & inhaler . No active wheezing or cough associated with asthma today. Denies delayed reaction from pre vious allergy injection. No fever or allergy related rash. No recent heavy exposure to aller gens. No plans for strenuous exercise immediately before or after injection today.Electronic ally signed by Modesta Benitez RN at 07/11/2015 11:08 AM PDTdocumented in this encoun ter Plan of [...] [place] | | | | | | [id number] | | | | | | | | +--------+ + + + + | 01/17/ | Office | Vascular Surgery | Bill Arevalo DNP | | | 2019 | Visit | | [address] | | | | | | [place] | | | | | | [address] | | | | | | | | +--------+ + + + + | 05/22/ | Office | Nephrology | Dana Mariana Hua, | | | 2020 | Visit | | [address] | | | | | | [address] [facility] | | | | | | [place] [address] | | | | | | [phone] | | | | | | | | +--------+ + + + + documented as of this encounter Visit Diagnoses + + | Diagnosis | + + | Allergic rhinitis due to pollen - Primary | + + | Allergic rhinitis due to animal (cat) (dog) hair and dander | + + | Non-seasonal allergic rhinitis Allergic rhinitis, cause unspecified | + + | Unspecified asthma(493.90) Unspecified asthma | + + documented in this encounter"
--- OUTSIDE RECORDS SUMMARY | ~2019-11-09 | XMS | Encounter Summary ---
Demographics + + + | Address | [address] | | | [place] [address] | + + + | Home Phone [...] Organization | [facility] | | | and [place] | + [...] Team Providers + +------+ + | Care Doorperson Name | Role | Phone | + +------+ + | Mehrdad Avalos MD | PCP | | + +------+ + Reason for Visit + +--------+ + | Reason | Onset | Comments | | | Date | | + +--------+ + | Follow-up | 10/06/ | | | | 2020 | | + +--------+ + Encounter Details +--------+ + + + + | Date | Type | Department | Care Team | Description | +--------+ + + + + | 10/06/ | Telephone | [facility] | Eve Avilez, | Follow-up | | 2019 | | VASCULAR SURGERY | RN | | | | | [address] | | | | | | [place] | | | | | | [address] | | | | | | [phone] | | | +--------+ + + + [...] Telephone Encounter - Eve Avilez RN - 10/07/2019 12:20 PM PDTFollow up call made to patient. She states she is doing well without any issues. She is instructed to remove her surgical dressings tomorrow and keep incision clean and dry. She may shower and let soap a nd water run over her incisions, pat dry with clean towel. Patient encouraged to call back if any concerns. Follow up scheduled for 10/20/2019 with repeat right leg arterial ultrasoun d. documented in thi s encounter Plan of Treatment +--------+ + + + + | Date | Type | Specialty | Care Team | Description | +--------+ + + + + | 01/17/ Appointment | Radiology | Bill Arevalo DNP | | | 2019 | | | [address] | | | | | | [place] | | | | | | [address] | | | | | | | | +--------+ + + + + | 01/17/ | Office | Vascular Surgery | Bill Arevalo DNP | | | 2019 | Visit | | [address] | | | | | | [place] | | | | | | [address] | | | | | | | | +--------+ + + + + | 05/22/ | Office | Nephrology | Mariana Cortez, | | | 2020 | Visit | | [address] | | | | | | [address] [place] | | | | | | [place] [address] | | | | | | [phone] | | | | | | | | +--------+ + + + + documented as of this encounter Visit Diagnoses Not on filedocumented in this encounter"
--- OUTSIDE RECORDS SUMMARY | ~2019-11-09 | XMS | Encounter Summary ---
Demographics + + + | Address | [address] | | | [place] [address] | + + + | Home Phone [...] Team Providers + +------+ + | Care Access Developer Name | Role | Phone | + +------+ + PCP | Unavailable | + +------+ + Encounter Details +--------+ + + + + | Date | Type | Department | Care Team | Description | +--------+ + + + + | 10/21/ | Orders Only | [facility] [place] | Mariana Cortez W, | CKD (chronic kidney | | 2014 | | NEPHROLOGY [address] | [address] | disease) stage 3, | | | | [address] | [address] [place] | GFR 30-59 ml/min | | | | [place] | [place] [address] | (Primary Dx); | | | | [address] | [phone] | Proteinuria | | | | [phone] | | | +--------+ + + + [...] this encounter Progress Ada Rene RN - 10/21/2013 2:48 PM PDTLabs for nephrology appt on 11/22/13 [facility] documented in this encounter Plan of Treatment +--------+ + + + + | Date | Type | Specialty | Care Team | Description | +--------+ + + + + | 01/17/ | Appointment | Radiology | Bill Arevalo DNP | | | 2019 | | | [address] | | | | | | [place] | | | | | | [address] | | | | | | | | +--------+ + + + + | 01/17/ | Office | Vascular Surgery | Bill Arevalo DNP | | | 2019 | Visit | | [address] | | | | | | [place] | | | | | | [address] | | | | | | | | +--------+ + + + + | 05/22/ | Office | Nephrology | Mariana Cortez, | | | 2020 | Visit | | MD [address] | | | | | | [address] [place] | | | | | | [place] [address] | | | | | | [phone] | | | | | | | [...]
--- OUTSIDE RECORDS SUMMARY | ~2019-11-09 | XMS | Encounter Summary ---
Demographics + + + | Address | [address] | | | [place] [address] | + + + | Home Phone [...] Team Providers + +------+ + | Care Scale Technician Name | Role | Phone | + +------+ + | Mehrdad Avalos MD | PCP | | + +------+ + Reason for Visit + + + | Reason | Comments | + + + | CPAP Follow Up | Sleep Resource | + + + Evaluate & Treat (Routine) +--------+--------+ + + + + | Status | Reason | Specialty | Diagnoses / | Referred By | Referred To | | | | | Procedures | Contact | Contact | +--------+--------+ + + + + | Closed | | Sleep | Diagnoses | Robbie, | [facility] | | | | Medicine | Obstructive | Mehrdad | [facility] | | | | | sleep apnea | MD Ck | Disorder [address] | | | | | (adult) | [address] [address] | [address] | | | | | (pediatric) | Way | [place], | | | | | Bring all | [place], | [place] [address] | | | | | equp 1wk | [place] [address] | Phone: | | | | | /[facility]--VICK DAY | Phone: | [phone] | | | | | NEEDED | [phone] | Fax: | | | | | Procedures | Fax: | [phone] | | | | | CLINICAL | [phone] | | | | | | SUPPORT | | | +--------+--------+ + + + + Encounter Details +--------+ + + + + | Date | Type | Department | Care Team | Description | +--------+ + + + + | 03/09/ | Clinical | [facility] | | MARYURI (obstructive | | 2020 | Support | SLEEP DISORDER [address] | | sleep apnea) | | | | [address] | | (Primary Dx) | | | | [place] [address] | | | | | | [phone] | | | +--------+ + + + [...] + + + | Blood Pressure | 140/82 | 03/09/2019 2:08 PM | | | | | PST | | + + + + + | Pulse | 109 | 03/09/2019 2:08 PM | | | | | PST | | + + + + + | Temperature | - | - | | + + + + + | Respiratory Rate | 16 | 03/09/2019 2:08 PM | | | | | PST | | + + + + + | Oxygen Saturation | 92% | 03/09/2019 2:08 PM | | | | | PST | | + + + + + | Inhaled Oxygen | - | - | | | Concentration | | | | + + + + + | Weight | 90.4 kg (199 lb 4.7 | 03/09/2019 2:08 PM | | | | oz) | PST | | + + + + + | Height | 162.6 cm (5' 4") | 03/09/2019 2:08 PM | | | | | PST | | + + + + + | Body Mass Index | 34.21 | 03/09/2019 2:08 PM | | | | | PST | | + + + + + documented in this encounter Progress Notes Leonides Villasenor, Neurodiagnostic Tech - 03/09/2019 2:00 PM PSTFormatting of this note migh t be different from the original. Clinical Sleep Support Visit Patient:July Forte Date of :1970 Encounter Date:03/09/2019 Reason for visit: Chief Complaint Patient presents with CPAP Follow Up Sleep Resource Patient was last seen in our clinic on 01/20/[address] Hdez, referred to us by Dr. Avalos . PAP was ordered on 01/20/2019 from [facility]. Patient has been using PAP for 2 out of 26 [facility], wearing the ResMed S-10 auto PAP with settings of 4 to 15, wearing the F-20 mask. ~ Vital signs were: BP 140/82 | Pulse 109 | Resp 16 | Ht 1.626 m (5' 4") | Wt 90.4 kg ( 199 lb 4.7 oz) | SpO2 92% | BMI 34.21 kg/m ~ Patient is doing poor with toleration and compliance. She will wear the mask, but cannot tolerate the air at all. I did try several attempts to get her to try and she refused. She d id put her mask on properly and it did seem to fit well, fit test not done. She agreed to se ramiro Hdez again to go over other alteratives. ~ Overall leak is 3 ~ Compliance >4 hours =0% with AHI of 0 ~ Average daily usage of 0 Original date of study was on 01/20/202019 that showed an AHI of 9.8 with a O2 Royal of 83% with 2.8 minutes < 90%. Sleep hygiene reviewed with the patient included a review of her sleep wake cycle and circa everardo rhythms, sleep study results and today's PAP download, all PAP instructions for use [facility] settings, mask fit, humidification. Plan for continuous PAP use: 1. Wear PAP any time you are sleeping 2. Continue with PAP indefinitely 3. Follow up with Dr. Hdez with equipment Leonides Villasenor RPSGT [facility] umented in this encounter Plan of Treatment +--------+ + + + + | Date | Type | Specialty | Care Team | Description | +--------+ + + + + | 01/17/ | Appointment | Radiology | Bill Arevalo DNP | | 2019 | | | [address] | | | | | | [place] | | | | | | [address] | | | | | | | | +--------+ + + + + | 01/17/ | Office | Vascular Surgery | Bill Arevalo DNP | | 2019 | Visit | | [address] | | | | | | [place] | | | | | | [address] | | | | | | | | +--------+ + + + + | 05/22/ | Office | Nephrology | Mariana Cortez, | | | 2020 | Visit | | [address] | | | | | | [address] [place] | | | | | | [place] [address] | | | | | | [phone] | | | | | | | | +--------+ + + + + documented as of this encounter Visit Diagnoses + + | Diagnosis | + + | MARYURI (obstructive sleep apnea) - Primary Obstructive sleep apnea (adult) (pediatric) | + + documented in this encounter
--- OUTSIDE RECORDS SUMMARY | ~2019-11-09 | XMS | Encounter Summary ---
Demographics + + + | Address | [address] | | | [place] [address] | + + + | Home Phone [...] Team Providers + +------+ + | Care Civil Service Worker Name | Role | Phone | [...] | +--------+ + + + + | 01/15/ | Clinical | [facility] [place] | Henok Luther MD | Extrinsic asthma, | | 2017 | Support | OTOLARYNGOLOGY [address] | [address] | unspecified asthma | | | | [address] | [address] [place], [place] | severity, | | | | [place] | [address] | unspecified whether | | | | [address] | | complicated, | | | | [phone] | | unspecified whether | | | [...] encounter Progress Notes Narda Lay RN - 01/15/2017 3:30 PM PSTPatient presents with epi-pen. Denies delayed [...] [place] | | | | | | [address] | | | | | | | | +--------+ + + + + | 01/17/ | Office | Vascular Surgery | Bill Arevalo DNP | | | 2019 | Visit | | [address] | | | | | | [place] | | | | | | [address] | | | | | | | | +--------+ + + + + | 05/22/ | Office | Nephrology | Mariana Cortez, | | | 2020 | Visit | | [address] | | | | | | [address] [place] | | | | | | [place] [address] | | | | | | [phone] | | | | | | | [...]
--- OUTSIDE RECORDS SUMMARY | ~2019-11-09 | XMS | Encounter Summary ---
Demographics + + + | Address | [address] | | | [place] [address] | + + + | Home Phone [...] Team Providers + +------+ + | Care Sales Receptionist Name | Role | Phone | + +------+ + | Ronel Jacobson PA-C | PCP | | + +------+ + Reason for Referral Evaluate & Treat (Urgent) +--------+ + + [...] | Services | y | | Henok Calix, | MD [address] | | | Required | | Non-seasonal | [address] | | | | | allergic | [address] | [address] [place] | | | | | rhinitis due | [place], | [place], [place] | | | | | to pollen | [place] [address] | [address] Phone: | | | | | Allergic | Phone: | [phone] | | | | | rhinitis due | [phone] | Fax: | | | | | to dust | Fax: | [phone] | | | | | Mild | [phone] | | | | | | intermittent [...] [address] | [address] [place] | due to pollen | | | | [place] | [address] | (Primary Dx); | | | | [address] | | Allergic rhinitis | | | | [phone] | | due to dust; Mild | [...] [place] | | | | | | [address] | | | | | | | | +--------+ + + + + | 01/17/ | Office | Vascular Surgery | Bill Arevalo, GEMMA | | | 2019 | Visit | | [address] | | | | | | [address] [place] | | | | | | [address] | | | | | | | | +--------+ + + + + | 05/22/ | Office | Nephrology | Mariana Cortez, | | | 2020 | Visit | | MD [address] | | | | | | [address] [place] | | | | | | [place] [address] | | | | | | [phone] | | | | | | | [...]
--- OUTSIDE RECORDS SUMMARY | ~2019-11-09 | XMS | Encounter Summary ---
Demographics + + + | Address | [address] | | | [place] [address] | + + + | Home Phone [...] Team Providers + +------+ + | Care Dope Heater Name | Role | Phone | [...] + + | Closed | Specialty | Sleep | Diagnoses | Lemuel, | [facility] | | | Services | Medicine | MARYURI | Karthikeyan Moura | [place] [address] | | | Required | | (obstructive | [address] | [place] | | | | | sleep | [place] | [place], | | | | | apnea) | [facility] | [place] [address] | | | | | Procedures | [place], [place] | Phone: | | | | | [facility] SLEEP | [address] | [phone] | | | | | STUDY, | Phone: | Fax: | | | | | UNATTENDED, | [phone] | [phone] | | | | | SIMUL RECORD | Fax: | | | | | | HR/O2 | [phone] | | | | | | SAT/RESP | | | | | | | FLOW/RESP | | | | | | | EFF HST | | | | | | | (DOS | | | | | | | 01/19/19 | | | | | | | 10AM) | | | | | | | Lemuel to see | | | | | | | the next | | | | | | | day for | | | | | | | results | | | +--------+ + + + + + Reason for Visit +---------+ + | Reason | Comments | +---------+ + | Consult | | +---------+ + Evaluate & Treat (Routine) +--------+--------+ + + + + | Status | Reason | Specialty | Diagnoses / | Referred By | Referred To | | | | | Procedures | Contact | Contact | +--------+--------+ + + + + | Closed | | Internal | Diagnoses | Kavon, | Lemuel, | | | | Medicine - | Obstructive | Ronel Magdaleno, | Karthikeyan Moura | | | | Sleep | sleep apnea | [address] [address] | [address] | | | | Medicine / | (adult) | [address] | [facility] | | | | Sleep | (pediatric) | [place] | [facility] | | | | Medicine | CONSULT PW | [facility] [address] | [place], [place] | | | | | [address] | [place], | [address] Phone: | | | | | NO | [place] | [phone] | | | | | CPAP--NEED | [phone] | Fax: | | | | | [facility] # | Phone: | [phone] | | | | | Procedures | [phone] | | | | | | NEW PATIENT | Fax: | | | | | | | [phone] | | +--------+--------+ + + + + Encounter Details +--------+---------+ + + + | Date | Type | Department | Care Team | Description | +--------+---------+ + + + | 01/04/ | Office | [facility] | Karthikeyan Hdez | MARYURI (obstructive | | 2018 | Visit | SLEEP DISORDER [address] | [address] [place] | sleep apnea) | | | | [address] | [address] | (Primary Dx); | | | | [place] [address] | [place] [address] | Snores; Extrinsic | | | | [phone] | [phone] | asthma, unspecified | | | | | | asthma severity, | | | | | | unspecified whether | | | | | | complicated, | | | | | | unspecified whether | | | | | | persistent; Type 2 | | | | | | diabetes mellitus | | | | | | without | | | | | | complication, | | | | | | without long-term | | | | | | current use of | | | | | | insulin (HCC); | | | | | | Organic insomnia | +--------+---------+ + + + Social History [...] + + + | Blood Pressure | 110/80 | 01/04/2019 11:06 AM | | | | | PST | | + + + + + | Pulse | 102 | 01/04/2019 11:06 AM | | | | | PST | | + + + + + | Temperature | - | - | | + + + + + | Respiratory Rate | 16 | 01/04/2019 11:06 AM | | | | | PST | | + + + + + | Oxygen Saturation | 97% | 01/04/2019 11:06 AM | | | | | PST | | + + + + + | Inhaled Oxygen | - | - | | | Concentration | | | | + + + + + | Weight | 90.2 kg (198 lb 13.7 | 01/04/2019 11:06 AM | | | | oz) | PST | | + + + + + | Height | 162.6 cm (5' 4") | 01/04/2019 11:06 AM | | | | | PST | | + + + + + | Body Mass Index | 34.13 | 01/04/2019 11:06 AM | | | | | PST | | + + + + + documented in this encounter Progress Notes Karthikeyan Hdez Jr., MD - 01/04/2019 11:00 AM PSTFormatting of this note might be differen t from the original. 01/04/19 1100 Collazo Depression Inventory-II Depression Score 3 - Minimal depression Insomnia Severity Index Insomnia Severity Index 13 Washington Sleepiness Scale 1. Sitting and reading 1 2. Watching TV 2 3. Sitting, inactive in a public place (e.g. a theatre or a meeting) 3 4. As a passenger in a car for an hour without a break 0 5. Lying down to rest in the afternoon when circumstances permit 1 6. Sitting and talking to someone 0 7. Sitting quietly after a lunch without alcohol 1 8. In a car, while stopped for a few minutes in traffic 0 Total score 8 SF-36v2 Score PF 32.66 RP 57.16 BP 62 GH 60.32 VT 52.6 SF 57.34 RE 56.17 MH 48.25 PCS 50.77 MCS 56.19 documented in th is encounter H&P Notes Karthikeyan Hdez Jr., MD - 01/04/2019 11:00 AM PSTFormatting of this note might be differen t from the original. [facility] [place] [address] Ref: Ronel Jacobson, ARRON CC: Chief Complaint Patient presents with Consult History of the Present Illness:This is a 48 year old female who is referred for sleep medic ine consultation by Dr. Willie Avalos because of possible Obstructive Sleep Apnea. Other signific ant medical issues include obesity, HBP, AODM. The patient's records ([facility] EMR, Fish Icer Record Brief from [facility]) are reviewed. The patient is interviewed and examined. Bedtime is about 11pm and rise time is about 7am. She estimates a latency to sleep onset of about an hour. She has nocturia at 3am but then often has trouble falling back to sleep. Khari rubio'll often work around the house or watch TV. She rarely has night sweats. She denies noctur nal heartburn. She always awakens with a morning dry mouth. She dreams occasionally. She denies hypnagogic hallucinations. She isn't a sleep walker. Khari rubio denies dream enactment while asleep. She denies sleep paralysis. She denies restlessness in her legs at night. She has never been told that her legs/arms ki ck/twitch rhythmically at night after she falls asleep. She has a history loud snoring. She had nasal surgery (septoplasty) in March 2018. She d oesn't have a bed partner and she doesn't know if she still snores. She doesn't knowingly aw aken herself gasping for air or snorting. In the daytime she feels OK. She doesn't nap in the daytime. She doesn't fall asleep drivin g. She denies cataplexy. She consumes about 2 cups of coffee a day. She rarely consumes othe r sources of caffeine. She doesn't take any sleep medications to help with sleep. She says that her sleep is good for a week (11pm-7am) and then there will be a week of poor sleep (11pm-3am). Dr. Morton did an endoscopy on her in November of 2018 and she was told that she likely had O SA - which is why she is now referred. She had previously had a stomach which apparently is now healed. Past Medical History: has a past medical history of Allergic asthma, Allergic asthma, Ebenezer rgic asthma, Chronic kidney disease, Diabetes mellitus type II - ORAL Control (10/13/2012), Du odenal ulcer, Edema (09/08/2012), Hypertension (10/13/2012), Rash, Snores, and Wears dentures. has a past surgical history that includes Nasal septum surgery (Bilateral, 02/24/2017). Allergies Allergen Reactions Furosemide Swelling Current Outpatient Medications Medication Sig Dispense Refill acetaminophen (TYLENOL) 500 mg tablet Take 500 mg by mouth every 6 hours as needed for Pain. albuterol 90 mcg/puff inhaler Inhale 2 puffs into the lungs every 6 hours as needed. Alcohol Swabs 70 % PADS by Does not apply route. amLODIPine (NORVASC) 10 MG tablet Take 10 mg by mouth Daily. ascorbic acid (VITAMIN C) 500 mg tablet Take 500 mg by mouth Daily. azithromycin (ZITHROMAX) 250 mg tablet Take 2 tablets by mouth on day 1, and 1 tablet b y mouth every day 6 tablet 0 B-D UF III MINI PEN NEEDLES 31G X 5 MM [facility] CROW CONTOUR TEST strip [...] tablet Take 1,000 mcg by mouth Daily. dulaglutide (TRULICITY) 0.75 mg/0.5 mL injection Inject 0.75 mg under the skin Once a w [place]. EPIPEN 2-IGNACIO 0.3 MG/0.3ML injection Inject 0.3 [...] MG CAPS Take 10 mg by mouth. losartan (COZAAR) 25 mg tablet Take 25 mg by mouth Daily. Magnesium 100 MG CAPS Take 100 mg by mouth Daily. metoprolol succinate (TOPROL-XL) 25 mg 24 hr tablet Take 25 mg by mouth Daily. mometasone-formoterol (DULERA) 200-5 mcg/puff inhaler Inhale 2 puffs into the lungs Twi ce Daily. montelukast (SINGULAIR) 5 mg chewable tablet Take 10 mg by mouth nightly. omeprazole (PRILOSEC) 20 mg capsule Take 20 mg by mouth 2 times daily. rOPINIRole (REQUIP) 1 mg tablet Take 1 mg by mouth nightly. rosuvastatin (CRESTOR) 20 mg tablet Take 20 mg by mouth nightly. sodium bicarbonate 650 mg tablet Take 1 tablet by mouth Daily. 90 tablet 3 [facility] No current facility-administered medications for this visit. Past Surgical History: Procedure Laterality Date NASAL SEPTUM SURGERY Bilateral 02/24/2017 Procedure: Septoplasty, Inferior Turbinoplasty; Surgeon: Henok Luther MD; Location: [facility] OR Immunization History Administered Date(s) Administered TDAP, (ADOL/ADULT) 09/08/2012 Family Medical History: family history includes Diabetes in her sister, sister, sister and another family member; Hypertension in her father, sister, sister, sister, and sister; Stoma ch cancer (age of onset: 60) in her mother. She indicated that her mother is . She indicated that her father is . She i ndicated that all of her four sisters are alive. She indicated that the status of her other is unknown. Social History: Social History Socioeconomic History Marital status: Single Spouse name: Not on file Number of children: 0 Years of education: 13 Highest education level: Not on file Occupational History Employer: OTHER Comment: [employer] [facility] Tobacco Use Smoking status: Current Every Day Smoker Packs/day: 0.25 Years: 20.00 Pack years: 5.00 Types: Cigarettes Last attempt to quit: 09/23/2012 Years since quittin.2 Smokeless tobacco: Never Used Substance and Sexual Activity Alcohol use: Yes Alcohol/week: 1.0 standard drinks Types: 1 Standard drinks or equivalent per week Comment: 1 a month Drug use: No Social History Narrative Lives in house in [place] alone. Review of Systems: Constitutional: Denies unexplained fevers, chills, sweats, significant recent weight ulrich ge. Eyes:Denies sudden loss of vision, diplopia, blurred vision. ENT: Denies loss of hearing, vertigo, nasal or sinus congestion. Upper false teeth. Card:Denies exertional substernal chest heaviness. Resp: allergic asthma GI: Denies nausea, vomiting, abdominal pain, diarrhea, constipation, hematochezia. : Denies dysuria, pyuria, hematuria, frequency, incontinence MS: Denies back pain, neck pain, arthralgias, arthritis, myalgias Neuro: Denies seizures, strokes, loss of consciousness, syncope. Concussion in HS. Psych: Denies: depression, anxiety, panic, past history physical or sexual abuse, severe traumatic experiences Endocrine: Denies heat or cold intolerance Heme: Denies easy bruising or prolonged bleeding. Had blood transfusion from bleeding [facility] 03/2018 Allergic/Immunologic: Denies seasonal allergies PE: BP 110/80 | Pulse 102 | Resp 16 | Ht 1.626 m (5' 4") | Wt 90.2 kg (198 lb 13.7 oz) | SpO2 97% | BMI 34.13 kg/m Gen: obese, alert and not in acute distress HEENT:Head: Normocephalic, no lesions, without obvious abnormality. Eye: Normal external eye, conjunctiva, lids cornea, [place]. Nose: Normal external nose, mucus membranes and septum. Pharynx: Dental Hygiene adequate. Normal buccal mucosa. Mallampati 2-3. Neck / Thyroid: Supple, no masses, nodes, nodules or enlargement. Pulm: lungs clear to auscultation Card: regular rate and rhythm, S1, S2 normal, no murmur, click, rub or gallop GI: soft and normal bowel sounds : Not examined Rectal: Not Examined Ext: peripheral pulses normal, no pedal edema, no clubbing or cyanosis Skin:no rashes Neuro:Grossly normal Psych:age appropriate and casually dressedoriented to time, place and person, mood and aff ect are within normal limits, confused Heme: No cervical LN Questionnaires Review: The score of 8 on the Washington Sleepiness scale suggests minimal to m ild recognized excessive daytime sleepiness. The score of 13 on the Insomnia Severity Scale suggests that the patient has significant dissatisfaction with the quality of sleep. The sco re of 3 on the Collazo Depression Inventory is consistent with minimal depression (no suicidal thoughts). The score of 0 on the Collazo Anxiety Inventory suggests minimal recognized anxiety. The SF36v2 suggests that she scores slightly more than 1-1/2 standard deviations below the mean on subscale physical function; that she scores slightly below the mean on subscale ment al health; that she scores slightly below the mean on subscale vitality; that she scores bet ween three quarters and slightly more than 1 standard deviation above the mean on subscales role physical, body pain, general health, vitality, role emotional. She scores minimally ab ove the mean on the physical component scale and slightly more than half of a standard devia tion above the mean on the mental component scale. Assessment: MARYURI: I think it is very likely that the patient has clinically significant obst ructive sleep apnea.I have discussed in detail the pathophysiology of Obstructive Sleep Apne a with the patient. I've discussed that during NREM sleep the skeletal muscles relax and in REM sleep the skeletal muscles are paralyzed. The muscles that support the back of the throa t (the tongue in particular) also relax during NREM sleep and are paralyzed in REM sleep and when this occurs, the back of the throat collapses some. In some patients with a smaller ba ck of the throat, this can result in obstruction to the flow of air. This is fundamentally w hat occurs in MARYURI. This can cause repetitive obstruction to the flow of air all night long c ause a person with MARYURI to awaken repeatedly at night to "open" the back of the throat. If ai rflow is significantly restricted, blood oxygen levels can fall. The combination of the repe titive awakenings at night and low oxygen levels lead to numerous other physiologic abnormal ities which can result in nocturia, nocturnal heartburn, night sweats, morning dry mouth, mo rning headache, and daytime fatigue/sleepiness. Additionally, MARYURI can cause hypertension and , when severe, it dramatically increases the risk of heart disease, heart attack, and stroke . It may play a causative role in obesity and AODM. Untreated MARYURI also dramatically increase s the risk of fall asleep car accidents. Treatment can help with all of these issues.The cindy ious forms of treatment of MARYURI were discussed with the patient including 1) Conservative the rapy which typically includes weight loss, avoidance of sleep deprivation, avoidance of alco hol, avoidance of sedative medications, avoidance of smoking, and positional therapy (non-schofield pine sleeping); 2) Positive Airway Pressure therapy (which is effective in the vast majority of patients but compliance can be an issue); 3) Dental Appliance Therapy (which is effectiv e for some patients, typically with mild MARYURI, but compliance is typically good); 4) Expirato ry Positive Airway Pressure - which involves passively increasing EPAP pressures applying a "one-way" valve type device (that looks like a "bandaid") over the nares at night which can be effective for very mild MARYURI; 5) Surgical intervention - including Phase I surgery (which typically involves T&A, UPPP, Genioglossus Advancement, Hyoid Suspension) and Phase II surge ry (Bimandibular-Maxillary Facial Advancement) - the surgical solution to MARYURI is complicated and typically involves several operations; and 6) Hypoglossal Nerve Stimulation Therapy. I am going to suggest that we start the evaluation with a simple home sleep apnea test (type III) and follow-up thereafter. She is in agreement with this. Psychophysiologic Insomnia: I think there may also be a component of psychophysiologic in somnia. I would like to deal with this however after we see if she has obstructive sleep ap babatunde. If she does have obstructive apnea treating this can sometimes improve the insomnia al so. If not then we may wish to discuss some cognitive behavioral strategies to improve her sleep. AODM: Treating obstructive sleep apnea can help with diabetic control and I discussed thi s with her. Allergic Asthma: It is possible that treating obstructive sleep apnea could have a benefi cial effect in her asthma too. Plan: Home Sleep Apnea Test (Type 3) with f/u thereafter. Patient Active Problem List Diagnosis Type 2 diabetes mellitus with stage 3 chronic kidney disease, without long-term current use of insulin Hypertension Proteinuria CKD (chronic kidney disease) stage 3, GFR 30-59 ml/min Migraine headache Renal tubular acidosis, type 4 Smoker - Daily Obesity (BMI 35.0-39.9 without comorbidity) Duodenal ulcer Allergic asthma Snores Organic insomnia Today, 60 minutes was spent face to face with the patient; the majority of time was spent c ounseling regarding sleep issues. Parts of this note were dictated using [employer] voice recognition software. Occasional wrong - word or sound-alike substitutions may have occurred due to the inherent limitations of voi ce recognition software. Please read the chart carefully and recognize, using context, wher e these substitutions have occurred. documented in th is encounter Plan of Treatment +--------+ + + + + | Date | Type | Specialty | Care Team | Description | +--------+ + + + + | 01/17/ | Appointment | Radiology | Bill Arevalo DNP | | | 2019 | | | [address] | | | | | | [place] | | | | | | [address] | | | | | | | | +--------+ + + + + | 01/17/ | Office | Vascular Surgery | Bill Arevalo DNP | | | 2019 | Visit | | [address] | | | | | | [place] | | | | | | [address] | | | | | | | | +--------+ + + + + | 05/22/ | Office | Nephrology | Mariana Cortez, | | | 2020 | Visit | | MD [address] | | | | | | [address] | | | | | | [place] [address] | | | | | | [phone] | | | | | | | | +--------+ + + + + + + +--------+ + + | Name | Type | Priori | Associated Diagnoses | Order Schedule | | | | ty | | | + + +--------+ + + | * [facility] - | Outpatient | Routin | MARYURI (obstructive | Ordered: 01/04/2019 | | AMB Referral | Referral | e | sleep apnea) | | + + +--------+ + + documented as of this encounter Visit Diagnoses + + | Diagnosis | + + | MARYURI (obstructive sleep apnea) - Primary Obstructive sleep apnea (adult) (pediatric) | + + | Snores Other dyspnea and respiratory abnormality | + + | Extrinsic asthma, unspecified asthma severity, unspecified whether complicated, | | unspecified whether persistent | + + | Type 2 diabetes mellitus without complication, without long-term current use of | | insulin (HCC) | + + | Organic insomnia Organic insomnia, unspecified | + + documented in this encounter
--- OUTSIDE RECORDS SUMMARY | ~2019-11-09 | XMS | Encounter Summary ---
Demographics + + + | Address | [address] | | | [place] [address] | + + + | Home Phone | | + + + | Preferred Language | Unknown | + + + | Marital Status | Single | + + + | Christianity Affiliation | Unknown | + + + [...] Team Providers + +------+ + | Care Card Room Manager Name | Role | Phone | [...] | | | | to pollen | [place] [address] | [address] Phone: | | | | | Allergic | Phone: | [phone] | | | | | rhinitis due | [phone] | Fax: | | | | | to dust | Fax: | [phone] | | | | | Mild | [phone] | | | | | | intermittent [...] + + + + | 01/28/ | Clinical | [facility] [place] | Henok Luther MD | Chronic allergic | | 2018 | Support | OTOLARYNGOLOGY [address] | [address] | rhinitis due to | | | | [address] | [address] [place] | animal hair and | | | | [place] | [address] | dander (Primary Dx); | | | | [address] | | Mild intermittent | | | | [phone] | | asthma, | | | | [...] encounter Progress Notes Modesta Benitez RN - 01/28/2018 4:00 PM PSTPatient presents with epi-pen & inhaler . No active wheezing or cough associated with asthma today. Denies delayed reaction from pre vious allergy injection. No fever or allergy related rash. No recent heavy exposure to aller gens. No plans for strenuous exercise immediately before or after injection today.Electronic ally signed by Modesta Benitez RN at 01/28/2018 4:21 PM PSTdocumented in this encoun ter Plan [...] [place] | | | | | | [address] | | | | | | | | +--------+ + + + + | 01/17/ | Office | Vascular Surgery | Bill Arevalo DNP | | | 2019 | Visit | | [address] | | | | | | [place] | | | | | | [address] | | | | | | | | +--------+ + + + + | 05/22/ | Office | Nephrology | Mariana Cortez W, | | | 2020 | Visit | | [address] | | | | | | [address] | | | | | | [place] [address] | | | | | | [phone] | | | | | | | | +--------+ + + + + documented as of this encounter Visit Diagnoses + + | Diagnosis | + + | Chronic allergic rhinitis due to animal hair and dander - Primary | + + | Mild intermittent asthma, uncomplicated Unspecified asthma | + + documented in this encounter"
--- OUTSIDE RECORDS SUMMARY | ~2019-11-09 | XMS | Encounter Summary ---
Demographics + + + | Address | [address] | | | [place] [address] | + + + | Home Phone [...] Team Providers + +------+ + | Care Cargo Tank Mechanic Name | Role | Phone | + +------+ + | Ronel Jacobson PA-C | PCP | | + +------+ + Reason for Visit + + + | Reason | Comments | + + + | Follow-up | 2 week nose surgery | + + + Encounter Details +--------+---------+ + + + | Date | Type | Department | Care Team | Description | +--------+---------+ + + + | 03/12/ | Office | [facility] | Henok Luther MD | Deviated nasal | | 2018 | Visit | OTOLARYNGOLOGY [address] | [address] | septum (Primary Dx); | | | | [address] | [address] [place] [facility] [place] | Hypertrophy of | | | | [place] | [address] | nasal turbinates | | | | [address] | | | | | | [phone] | | | +--------+---------+ + + + [...] + + | Pulse | 109 | 03/12/2017 3:10 PM | | | | | PST | | + + + + + | Temperature | - | - | | + + + + + | Respiratory Rate | 16 | 03/12/2017 3:10 PM | | | | | PST | | + + + + + | Oxygen Saturation | 91% | 03/12/2017 3:10 PM | | | | | PST | | + + + + + | Inhaled Oxygen | - | - | | | Concentration | | | | + + + + + | Weight | 87.5 kg (193 lb) | 03/12/2017 3:10 PM | | | | | PST | | + + + + + | Height | 160 cm (5' 3") | 03/12/2017 3:10 PM | | | | | PST | | + + + + + | Body Mass Index | 34.19 | 03/12/2017 3:10 PM | | | | | PST | | + + + + + documented in this encounter Progress Notes Henok Luther MD - 03/12/2017 3:15 PM PSTPatient is postop septoplasty and inferior turbi noplasties 2 weeks ago. She comes in for follow-up visit. Examination shows that to the so me crusting on both sides which were removed after her nose a been sprayed with some Alex-Syn ephrine and topical Xylocaine. Once removed patient to breathing well through her nose. Sh e is healing very nicely and has good space and no adhesions. Impression: Postop stable. Plan: Patient will continue the nasal irrigations for the next 10-14 days. She'll recheck with ENT if there are any problems with breathing through her nose. documented in this encounter Plan of Treatment +--------+ + + + + | Date | Type | Specialty | Care Team | Description | +--------+ + + + + | 01/17/ | Appointment | Radiology | Bill Arevalo DNP | | | 2019 | | | [address] | | | | | | [place] | | | | | | [address] | | | | | | | | +--------+ + + + + | 01/17/ | Office | Vascular Surgery | Bill Arevalo DNP | | | 2019 | Visit | | [address] | | | | | | [place] | | | | | | [address] | | | | | | | | +--------+ + + + + | 05/22/ | Office | Nephrology | Mariana Cortez, | | | 2020 | Visit | | [address] | | | | | | [address] | | | | | | [place] [address] | | | | | | [phone] | | | | | | | | +--------+ + + + + documented as of this encounter Visit Diagnoses + + | Diagnosis | + + | Deviated nasal septum - Primary | + + | Hypertrophy of nasal turbinates | + + documented in this encounter
--- OUTSIDE RECORDS SUMMARY | ~2019-11-09 | XMS | Encounter Summary ---
Demographics + + + | Address | [address] | | | [place] [address] | + + + | Home Phone [...] + + + | Author | [facility] | | | and [place] | + + + | Organization | [facility] | | [...] Team Providers + +------+ + | Care Transfer Car Operator Drier Name | Role | Phone | + [...] | +--------+ + + + + | 05/03/ | Clinical | [facility] [place] | Kole Soto | Extrinsic asthma, | | 2018 | Support | OTOLARYNGOLOGY [address] | MD Jeovany [address] | unspecified asthma | | | | [address] | [address] [place] | severity, | | | | [place], [place] | [place] [address] | unspecified whether | | | | [address] | [phone] | complicated, | | | | [phone] | | unspecified whether | | | [...] encounter Progress Notes Domenica Meredith RN - 06/11/2017 3:15 PM PDTPatient presents with epi-pen & inhaler. No ac tive wheezing or cough associated with asthma today. Denies delayed reaction from previous a llergy injection. No fever or allergy related rash. No recent heavy exposure to allergens. N o plans for strenuous exercise immediately before or after injection today.Electronically si gned by Domenica Meredith RN at 06/11/2017 3:40 PM PDTdocumented in this encounter Plan of [...] [place] | | | | | | [address] | | | | | | | | +--------+ + + + + | 01/17/ | Office | Vascular Surgery | Bill Arevalo DNP | | | 2019 | Visit | | [address] | | | | | | [place] | | | | | | [address] | | | | | | | | +--------+ + + + + | 05/22/ | Office | Nephrology | Mariana Cortez, | | | 2020 | Visit | | [address] | | | | | | [address] [place] | | | | | | [place] [address] | | | | | | [phone] | | | | | | | [...]
--- OUTSIDE RECORDS SUMMARY | ~2019-11-09 | XMS | Encounter Summary ---
Demographics + + + | Address | [address] | | | [place] [address] | + + + | Home Phone [...] Team Providers + +------+ + | Care Aircraft Maintenance Instructor Name | Role | Phone | + [...] | | | hair and | [place] [address] | [place], [place] | | | | | dander | Phone: | [phone] | | | | | Non-seasonal | [phone] | Phone: | | | | | allergic | Fax: | [phone] | | | | | rhinitis due | [phone] | Fax: | | | | | to pollen | | [phone] | | | | | Extrinsic | [...] | Clinical | [facility] [place] | | Extrinsic asthma, | | 2017 | Support | OTOLARYNGOLOGY [address] | | unspecified asthma | | | | [address] | | severity, | | | | [place] | | unspecified whether | | | | [address] | | complicated, | | | | [phone] | | unspecified whether | | | [...] encounter Progress Notes Domenica Meredith RN - 12/30/2016 3:15 PM PSTPatient presents with epi-pen & inhaler. No ac tive wheezing or cough associated with asthma today. Denies delayed reaction from previous a llergy injection. No fever or allergy related rash. No recent heavy exposure to allergens. N o plans for strenuous exercise immediately before or after injection today.Electronically si gned by Domenica Meredith RN at 12/30/2016 3:59 PM PSTdocumented in this encounter Plan of Treatment +--------+ + + + + | Date | Type | Specialty | Care Team | Description | +--------+ + + + + | 01/17/ | Appointment | Radiology | Blil Arevalo DNP | | | [...] [place] | | | | | | [place] [address] | | | | | | [phone] | | | | | | | [...]
--- OUTSIDE RECORDS SUMMARY | ~2019-11-09 | XMS | Encounter Summary ---
Demographics + + + | Address | [address] | | | [place] [address] | + + + | Home Phone [...] Team Providers + +------+ + | Care Vegetables Cook Name | Role | Phone | + +------+ + | Ronel Jacobson PA-C | PCP | | + +------+ + Reason for Visit + + + | Reason | Comments | + + + | Chronic Kidney | Stage 3 | | Disease | | + + + Evaluate & Treat (Routine) +--------+--------+ + + + + | Status | Reason | Specialty | Diagnoses / | Referred By | Referred To | | | | | Procedures | Contact | Contact | +--------+--------+ + + + + | Closed | | Nephrology | Diagnoses | Edy, | Cortez, | | | | | Chronic | MD Orin | Mariana W, | | | | | kidney | [address] | [address] | | | | | disease, | [address] [place] | [address] | | | | | stage 3 | [place] | [address] | | | | | (moderate) | [address] | [place], | | | | | (HCC) | Phone: | [place] [address] | | | | | Hypertension | [phone] | Phone: | | | | | | Fax: | [phone] | | | | | Proteinuria | [phone] | Fax: | | | | | Renal | | [phone] | | | | | tubular | | | | | | | acidosis, | | | | | | | type 4 | | | | | | | Procedures | | | | | | | MT OFFICE | | | | | | | OUTPATIENT | | | | | | | VISIT 25 | | | | | | | MINUTES | | | +--------+--------+ + + + + Encounter Details +--------+---------+ + + + | Date | Type | Department | Care Team | Description | +--------+---------+ + + + | 03/13/ | Office | [facility] | Mariana Cortez W, | CKD (chronic kidney | | 2016 | Visit | NEPHROLOGY [address] | [address] | disease) stage 3, | | | | [address] | [address] [place] | GFR 30-59 ml/min | | | | [place] | [place] [address] | ([facility]) (Primary Dx); | | | | [address] | [phone] | Essential | | | | [phone] | | hypertension; Renal | | | | | | tubular acidosis, | | | | | | type 4; Type 2 | | | | | | diabetes mellitus | | | | | | with diabetic | | | | | | chronic kidney | | | | | | disease (HCC) | +--------+---------+ + + + Social [...] + + + | Blood Pressure | 140/88 | 03/13/2015 3:37 PM | | | | | PST | | + + + + + | Pulse | 79 | 03/13/2015 3:37 PM | | | | | PST | | + + + + + | Temperature | - | - | | + + + + + | Respiratory Rate | - | - | | + + + + + | Oxygen Saturation | 99% | 03/13/2015 3:37 PM | | | | | PST | | + + + + + | Inhaled Oxygen | - | - | | | Concentration | | | | + + + + + | Weight | 90 kg (198 lb 6.4 | 03/13/2015 3:37 PM | | | | oz) | PST | | + + + + + | Height | - | - | | + + + + + | Body Mass Index | 35.14 | 12/27/2014 1:56 PM | | | | | PST | | + + + + + documented in this encounter Patient Instructions Patient Instructions Mariana Cortez MD - 03/13/2015 4:01 PM PSTTry to increase sodium bicarbonate 650 mg to twice a day. documented in this encounter Progress Notes Mariana Cortez MD - 03/13/2015 4:05 PM PSTFormatting of this note might be different f rom the original. Nephrology Follow-up Visit Visit date: 03/13/2015 Primary care provider: Ronel Jacobson PA-C Follow-up type: 6 months HPI: July Forte is a 44 y.o. female with CKD 3, proteinuric. Due to diabetic nephrop athy. Pt reports feeling well. Pt denies shortness of breath, chest pain, edema, dysuria, abdomi nal pain. Pt has been walking more; sisters registered them for a walkathon. Pt is working with primary on her glycemic control; off Januvia, on glipizide. ROS: A 6-system review was performed, and was negative or noncontributory other than as sta diego above. PMH: Patient Active Problem List Diagnosis Date Noted Renal tubular acidosis, type 4 DM type 2 (diabetes mellitus, type 2) 10/13/2012 Hypertension 10/13/2012 Proteinuria 10/13/2012 CKD (chronic kidney disease) stage 3, GFR 30-59 ml/min ([facility]) 10/13/2012 Note Last Updated: 10/13/2012 Renal ultrasound 09/16/12: right kidney 13 cm, left kidney 12.4 cm. Proteinuric. Migraine headache Outpatient Prescriptions Marked as Taking for the 03/13/15 encounter (Office Visit) with Dora Cortez MD Medication Sig Dispense Refill amLODIPine (NORVASC) 5 mg tablet Take 5 mg by mouth Daily. bumetanide (BUMEX) 0.5 mg tablet Take 2 mg by mouth Daily. cholecalciferol (VITAMIN D-3) 5000 UNITS TABS Take 5,000 Units by mouth Daily. cyanocobalamin (VITAMIN B-12) 500 mcg tablet Take 1,000 mcg by mouth Daily. folic acid 1 mg tablet Take 1 mg by mouth Daily. glipiZIDE (GLUCOTROL) 5 mg tablet Take 5 mg by mouth every morning (before breakfast). 5 mg daily for the first three days then 10 mg daily after that. insulin glargine (LANTUS SOLOSTAR) 100 units/mL injection (pen) Inject 20 Units under t he skin nightly. losartan (COZAAR) 100 MG tablet Take 50 mg by mouth Daily. metoprolol (TOPROL-XL) 100 MG 24 hr tablet Take 100 mg by mouth Daily. rosuvastatin (CRESTOR) 20 mg tablet Take 20 mg by mouth nightly. sodium bicarbonate 650 mg tablet Take 1 tablet by mouth Daily. 60 tablet 3 Physical Exam: Filed Vitals: 03/13/15 1537 BP: 140/88 Pulse: 79 Weight: 89.994 kg (198 lb 6.4 oz) SpO2: 99% Constitutional: Appears well-developed and well-nourished. No distress. Cardiovascular: Normal rate, regular rhythm and normal heart sounds. No peripheral edema. Lungs: Respiratory effort normal and breath sounds normal. No crackles or wheezes. Abdominal: Soft. Bowel sounds are present. Skin: Skin is warm. Neurological: Alert. Memory intact. Reviewed labs with patient. Office Visit on 03/13/2015 Component Date Value Ref Range Status POC COLOR UA 03/13/2015 Yellow Yellow, Light Yellow Final POC CLARITY UA 03/13/2015 Clear Final POC GLUCOSE UA 03/13/2015 250 mg/dL* Negative Final POC BILIRUBIN UA 03/13/2015 Negative Negative Final POC KETONES UA 03/13/2015 Negative Negative, 100 mg/dL Final POC SPECIFIC GRAVITY UA 03/13/2015 1.020 1.001 - 1.030 Final POC BLOOD UA 03/13/2015 Negative Negative Final POC PH UA 03/13/2015 5.0 5.0, 6.0, 7.0, 8.0, 5.5, 6.5, 7.5 Final POC PROTEIN UA 03/13/2015 >=300 mg/dL* Negative Final POC UROBILINOGEN UA 03/13/2015 0.2 0.2, Negative, Normal, < 0.2 mg/dL, 1 mg/dL, < 0.2 E.U./dl, 1.0 E.U./dL, 0.2 mg/dL Final POC NITRITE UA 03/13/2015 Negative Final POC LEUKOCYTE ESTERASE UA 03/13/2015 Small* Negative Final Abstract on 03/12/2015 Component Date Value Ref Range Status Protein/Creatinine Ratio, External 03/09/2015 2.45* 0.15 Final Abstract on 03/12/2015 Component Date Value Ref Range Status Creatinine, External 03/08/2015 1.18 0.6 - 1.3 Final eGFR, External 03/08/2015 50* 60 Final UA Blood, External 03/08/2015 negative Final UA Glucose, External 03/08/2015 1000* 0 Final UA Ketones, External 03/08/2015 negative Final UA Ph, External 03/08/2015 5.0 Final UA Proteins, External 03/08/2015 100* 0 Final UA RBC, External 03/08/2015 0-1 Final UA Specific [place], External 03/08/2015 1.024 Final UA Leukocyte Esterase, External 03/08/2015 trace Final Vitamin D, 25-Hydroxy, External 03/08/2015 30 30 - 100 Final Sodium, External 03/08/2015 132* 135 - 145 Final Potassium, External 03/08/2015 5.3* 3.5 - 5.1 Final Chloride, External 03/08/2015 102 100 - 110 Final Carbon Dioxide, External 03/08/2015 20 19 - 31 Final Calcium, External 03/08/2015 8.8 8.4 - 10.2 Final Protein, Total, External 03/08/2015 6.1 6 - 8 Final Albumin, External 03/08/2015 3.3* 3.5 - 5 Final Bilirubin, Total, External 03/08/2015 0.3 0 - 1.2 Final ALP, External 03/08/2015 76 Final AST, External 03/08/2015 6 Final ALT, External 03/08/2015 7 Final Glucose, External 03/08/2015 224* 70 - 100 Final BUN, External 03/08/2015 40* 6 - 23 Final PTH Intact, External 03/08/2015 14.44 Final ASSESSMENT AND PLAN: ICD-10-CM ICD-9-CM 1. CKD (chronic kidney disease) stage 3, GFR 30-59 ml/min ([facility]) N18.3 585.3 Due to diabetic nephropathy. Kidney function is stable. UPCR is improved. 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 2. Essential hypertension I10 401.9 Clinic BP is acceptable. Encouraged pt to continue to exercise and lose weight. 3. Renal tubular acidosis, type 4 N25.89 588.89 On sodium bicarbonate 650 mg QDAY. -Advised pt to increase to BID, and see if she can tolerate the BID dosing 4. Type 2 diabetes mellitus with diabetic chronic kidney disease ([facility]) E11.22 250.40 Pt is working with primary provider on glycemic control. N18.9 585.9 Return in 6 months: renal, ua, upcr. documented in this encounter Plan of Treatment +--------+ + + + + | Date | Type | Specialty | Care Team | Description | +--------+ + + + + | 01/17/ | Appointment | Radiology | Bill Arevalo DNP | | | 2019 | | | [address] | | | | | | [place] | | | | | | [address] | | | | | | | | +--------+ + + + + | 01/17/ | Office | Vascular Surgery | Bill Arevalo DNP | | | 2019 | Visit | | [address] | | | | | | [place] | | | | | | [address] | | | | | | | | +--------+ + + + + | 05/22/ | Office | Nephrology | Mariana Cortez, | | | 2020 | Visit | | MD [address] | | | | | | [address] [place] | | | | | | [place] [address] | | | | | | [phone] | | | | | | | | +--------+ + + + + documented as of this encounter Procedures + +--------+ + + + | Procedure Name | Priori | Date/Time | Associated Diagnosis | Comments | | | ty | | | | + +--------+ + + + | POCT URINALYSIS, | Routin | 03/13/2015 | CKD (chronic | Results for this | | AUTO WITH CONF | e | 3:43 PM | kidney disease) | procedure are in the | | | | PST | stage 3, GFR 30-59 | results section. | | | | | ml/min (HCC) | | + +--------+ + + + | LABS - EXTERNAL SCAN | | 03/09/2015 | | | | | | 12:00 AM | | | | | | PST | | | + +--------+ + + + | LABS - EXTERNAL SCAN | | 03/08/2015 | | | | | | 12:00 AM | | | | | | PST | | | + +--------+ + + + documented in this encounter Results POCT Urinalysis Dipstick Automated (03/13/2015 3:43 PM PST) + + + + + + | Component | Value | Ref Range | Performed | Pathologist | | | | | At | Signature | + + + + + + | Color, UA, | Yellow | Yellow, Light | | | | POC | | Yellow | | | + + + + + + | Clarity, | Clear | | | | | UA, POC | | | | | + + + + + + | Glucose, | 250 mg/dL (A) | Negative | | | [...] + + + + | Specific | 1.020 | 1.001 - 1.030 | | | | [place], | | | | | | UA, POC | | | | | + + + + + + | Blood, UA, | Negative | Negative | | | | POC | | | | | + + + + + + | pH, UA, POC | 5.0 | 5.0, 6.0, 7.0, | | | | | | 8.0, 5.5, 6.5, | | | | | | 7.5 | | | + + + + + + | Protein, | >=300 mg/dL (A) | Negative | | | [...] + + + | Leukocyte | Small (A) | Negative | | | | [...] kidney disease) stage 3, GFR 30-59 ml/min ([facility]) - Primary Chronic kidney | | disease, Stage III (moderate) | + + | Essential hypertension Unspecified essential hypertension | + + | Renal tubular acidosis, type 4 Other specified disorders resulting from impaired | | renal function | + + | Type 2 diabetes mellitus with diabetic chronic kidney disease (HCC) Type II or | | unspecified type diabetes mellitus with renal manifestations, not stated as uncontrolled | + + documented in this encounter"
--- OUTSIDE RECORDS SUMMARY | ~2019-11-09 | XMS | Encounter Summary ---
Demographics + + + | Address | [address] | | | [place] [address] | + + + | Home Phone [...] Author + + + | Author | [facility] | | | and [place] | + + + | Organization | [facility] | | [...] Team Providers + +------+ + | Care Commercial Decorator Name | Role | Phone | + +------+ + | Ronel Jacobson PA-C | PCP | | + +------+ + Reason for Visit + +--------+ + | Reason | Onset | Comments | | | Date | | + +--------+ + | Medication Follow-up | 05/14/ | | | | 2018 | | + +--------+ + Encounter Details +--------+ + + + + | Date | Type | Department | Care Team | Description | +--------+ + + + + | 05/14/ | Telephone | [facility] | Mariana Cortez W, | Medication Follow-up | | 2018 | | NEPHROLOGY [address] | [address] | | | | | [address] | [address] [place] | | | | | [place] | [place] [address] | | | | | [address] | [phone] | | | | | [phone] | | | +--------+ + + + [...] Telephone Encounter - Glo Scanlon RN - 05/14/2018 12:30 PM PDTPrescription for sodium bicarbonate faxed to [facility].Electronically signed by Glo Scanlon RN at 06/2018 12:51 PM PDTTelephone Encounter - Mariana Cortez MD - 05/14/2018 11:45 AM PDTPlea se refill sodium bicarbonate 650 mg PO QDAY, disp #90, refill #3. elephone Encounter - Glo Scanlon RN - 9:29 AM PDTPatient was calling to report that she does not have the medication saad t Dr. Cortez asked her to look for. She does not remember what medication it is, but she does not have it. Dr. Cortez to be notified. documented in this encounter Plan of Treatment +--------+ + + + + | Date | Type | Specialty | Care Team | Description | +--------+ + + + + | 01/17/ | Appointment | Radiology | Bill Arevalo DNP | | | 2019 | | | [address] | | | | | | [place] | | | | | | [address] | | | | | | | | +--------+ + + + + | 01/17/ | Office | Vascular Surgery | Bill Arevalo DNP | | | 2019 | Visit | | [address] | | | | | | [place] | | | | | | [address] | | | | | | | | +--------+ + + + + | 05/22/ | Office | Nephrology | Mariana Cortez, | | | 2020 | Visit | | MD [address] | | | | | | [address] [place] | | | | | | [place] [address] | | | | | | [phone] | | | | | | | | +--------+ + + + + documented as of this encounter Visit Diagnoses Not on filedocumented in this encounter"
--- OUTSIDE RECORDS SUMMARY | ~2019-11-09 | XMS | Encounter Summary ---
Demographics + + + | Address | [address] | | | [place] [address] | + + + | Home Phone [...] Author + + + | Author | [facility] | | | and [place] | + + + | Organization | [facility] | | [...] Team Providers + +------+ + | Care Surface Supervisor Name | Role | Phone | [...] | | | rhinitis due | [place] [address] | [address] Phone: | | | | | to animal | Phone: | [phone] | | | | | (cat) (dog) | [phone] | Fax: | | | | | hair and | Fax: | [phone] | | | | | dander | [phone] | | | | | | Allergic | | | | | | | rhinitis due | | | | | | | to dust | | | | | | | Procedures | | | | | | | DE | | | | | | | IMMUNOTHERAP | | | | | | | Y, ONE | | | | | | | INJECTION | | | | | | | DE | | | | | | | IMMUNOTHERAP | | | | | | | Y, 2+ | | | | | | | INJECTIONS | | | | | | | DE PROFES | | | | | | | SVC,IMMUNOTH | | | | | | | ER,SINGLE/MU | | | | | | | LT AGS | | | +--------+ + + + + + Encounter Details +--------+ + + + + | Date | Type | Department | Care Team | Description | +--------+ + + + + | / | Clinical | [facility] [place] | Henok Luther MD | Allergic rhinitis | | 2016 | Support | OTOLARYNGOLOGY [address] | [address] [place] | due to pollen | | | | [address] | [address] [place] | (Primary Dx); | | | | [place] | [address] | Allergic rhinitis | | | | [address] | | due to dust; | | | | [phone] | | Allergic rhinitis | | | [...] encounter Progress Notes Narda Lay RN - 04/09/2015 4:20 PM PSTPatient presents with epi-pen. Denies delayed reaction from previous allergy injection. No fever or allergy related rash. No recent heavy exposure to allergens. No plans for strenuous exercise before or after injection today. Dr Luther out of the office, so Dr Mehrdad Thomas is covering. documented in this encounter Plan of Treatment +--------+ + + + + | Date | Type | Specialty | Care Team | Description | +--------+ + + + + | 01/17/ | Appointment | Radiology | Bill Arevalo DNP | | | 2019 | | | [address] | | | | | | [place] | | | | | | [id number] | | | | | | | | +--------+ + + + + | 01/17/ | Office | Vascular Surgery | Bill Arevalo DNP | | | 2019 | Visit | | [address] | | | | | | [place] | | | | | | [id number] | | | | | | | | +--------+ + + + + | 05/22/ | Office | Nephrology | Mariana Cortez, | | | 2020 | Visit | | [address] | | | | | | [address] [place] | | | | | | [place] [address] | | | | | | [phone] | | | | | | | [...]
--- OUTSIDE RECORDS SUMMARY | ~2019-11-09 | XMS | Encounter Summary ---
Demographics + + + | Address | [address] | | | [place] [address] | + + + | Home Phone [...] + | Author | [facility] | | | and [place] | + + + | Organization | [facility] | | | and [...] Team Providers + +------+ + | Care Double End Sewer Name | Role | Phone | + +------+ + | Mehrdad Avalos MD | PCP | | + +------+ + Reason for Visit +--------+--------+ + | Reason | Onset | Comments | | | Date | | +--------+--------+ + | Other | 09/28/ | reason for MAC | | | 2019 | | +--------+--------+ + Encounter Details +--------+ + + + + | Date | Type | Department | Care Team | Description | +--------+ + + + + | 09/28/ | Telephone | [facility] | ItzelarianneannieIsmaela, | Other (reason for | | 2019 | | GASTROENTEROLOGY | [address] | [place]) | | | | [address] | [place] [address] | | | | | [place], [place] | [phone] | | | | | [address] | | | | | | [phone] | | | +--------+ + + + [...] this encounter Miscellaneous Notes Telephone Encounter - Iva Hardwick MD - 09/29/2019 3:16 PM PDTReason for MAC ASA clas s III related to multiple co morbids and complexity of medical problems with underlying kidn ey and liver disease . TTelephone Encounter - Shanthi Bacon, In Home Caregiver - 09/29/2019 2:55 PM PDTFormatt ing of this note might be different from the original. Called patient and informed her we are waiting on what documentation can be sent to her ins urance so we can know if the procedure will be covered by insurance. If she would like to reschedule or just wait and see. Patient then said she was in the hospital yesterday and was told she is being scheduled for a surgery on Thursday also the same day as the EGD. GAVE (gastric antral vascular ectasia) Principal problem I asked patient if they knew she was scheduled for the procedure and she was told to figure it out. I got the patient rescheduled for EGD for 10/18/19 @ 1:00pm with an est arrival time of 12:30 pm. Also scheduled COVID test the same day. * changed on view schedule * called OR scheduling to move pt * will mail instructions per pt request elephone Encounter - Shanthi Bacon, Medical Assistan t - 09/29/2019 12:08 PM PDTToday I received another email from Michelle. Dow, I have sent all the ed records but [facility] is asking for clinical that supports the reason we are asking for MAC can you please see what this would be or a note from the provider and fa x it to [phone] to avoid a mac denial Thank You! Melva Goldsmith Financial Counselor Clinic Authorizations [facility] Patient scheduled for Thursday. Spoke with Dr. Hardwick and she said the dx would be GAVE K31.819. and reason for MAC would be ASA class3. I had sent this information to financial councilors through email. elephone Encounter - Shanthi Bacon In Home Caregiver - 09/29/2019 12:07 PM PDT----- Message from Iva Hardwick MD sent at 09/28/2019 12:46 PM PDT ----- GAVE (gastric antral vascular ectasia), k31.819 Diagnosis docu mented in this encounter Plan of [...] [place] | | | | | | [address] | | | | | | | | +--------+ + + + + | 01/17/ | Office | Vascular Surgery | Bill Arevalo DNP | | | 2019 | Visit | | [address] | | | | | | [address] | | | | | | [address] | | | | | | | | +--------+ + + + + | 05/22/ | Office | Nephrology | Mariana Cortez, | | | 2020 | Visit | | [address] | | | | | | [address] [place] | | | | | | [place] [address] | | | | | | [phone] | | | | | | | | +--------+ + + + + documented as of this encounter Visit Diagnoses Not on filedocumented in this encounter"
--- OUTSIDE RECORDS SUMMARY | ~2019-11-09 | XMS | Encounter Summary ---
Demographics + + + | Address | [address] | | | [place] [address] | + + + | Home Phone | | + + + | Preferred Language | Unknown | + + + | Marital Status | Single | + + + | Adventist Affiliation | Unknown | + + + [...] Team Providers + +------+ + | Care Robotics Application Engineer Name | Role | Phone | [...] | | | rhinitis due | [place] [address] | [address] Phone: | | | | | to animal | Phone: | [phone] | | | | | (cat) (dog) | [phone] | Fax: | | | | | hair and | Fax: | [phone] | | | | | dander | [phone] | | | | | | Allergic [...] | +--------+ + + + + | 10/16/ | Clinical | [facility] [place] | Henok Luther MD | Allergic rhinitis | | 2016 | Support | OTOLARYNGOLOGY [address] | [address] | due to pollen | | | | [address] | [address] [place] | (Primary Dx); | | | | [place] | [address] | Allergic rhinitis | | | | [address] | | due to animal (cat) | | | | [phone] | | (dog) hair and | | [...] documented as of this encounter Progress Notes Mala Lester RN - 10/17/2015 8:41 AM PDTPatient presents with epi-pen & inhaler. N o active wheezing or cough associated with asthma today. Denies delayed reaction from previo us allergy injection. No fever or allergy related rash. No recent heavy exposure to allergen s. No plans for strenuous exercise immediately before or after injection today. documented in thi s encounter Plan of [...] [place] | | | | | | [id number] | | | | | | | | +--------+ + + + + | 01/17/ | Office | Vascular Surgery | Bill Arevalo DNP | | | 2019 | Visit | | [address] | | | | | | [place] | | | | | | [address] | | | | | | | | +--------+ + + + + | 05/22/ | Office | Nephrology | CortezMariana, | | | 2020 | Visit | | [address] | | | | | | [address] [place] | | | | | | [place] [address] | | | | | | [phone] | | | | | | | [...]
--- OUTSIDE RECORDS SUMMARY | ~2019-11-09 | XMS | Encounter Summary ---
Demographics + + + | Address | [address] | | | [place] [address] | + + + | Home Phone [...] Team Providers + +------+ + | Care Electronic Data Interchange Specialist Name | Role | Phone | + +------+ + PCP | Unavailable | + +------+ + Encounter Details +--------+ + + + + | Date | Type | Department | Care Team | Description | +--------+ + + + + | 06/22/ | Orders Only | [facility] [place] | Mariana Cortez W, | CKD (chronic kidney | | 2015 | | NEPHROLOGY [address] | [address] | disease) stage 3, | | | | [address] | [address] [place] | GFR 30-59 ml/min | | | | [place] | [facility] [place] [address] | ([facility]) (Primary Dx) | | | | [address] | [phone] | | | | | [phone] | | | +--------+ + + + [...] documented as of this encounter Progress Notes Sarah Padilla RN - 06/22/2014 3:08 PM PDTLab order for nephrology appointment on 07/25/14 faxed to [facility] lab. documented in this encounter Plan of [...] [place] | | | | | | [address] | | | | | | | | +--------+ + + + + | 01/17/ | Office | Vascular Surgery | Bill Arevalo DNP | | | 2019 | Visit | | [address] | | | | | | [place] | | | | | | [address] | | | | | | | | +--------+ + + + + | 05/22/ | Office | Nephrology | Mariana Cortez, | | | 2020 | Visit | | [address] | | | | | | [address] [place] | | | | | | [place] [address] | | | | | | [phone] | | | | | | | | +--------+ + + + + documented as of this encounter Visit Diagnoses + + | Diagnosis | + + | CKD (chronic kidney disease) stage 3, GFR 30-59 ml/min ([facility]) - Primary Chronic kidney | | disease, Stage III (moderate) | + + documented in this encounter"
--- OUTSIDE RECORDS SUMMARY | ~2019-11-09 | XMS | Encounter Summary ---
Demographics + + + | Address | [address] | | | [place] [address] | + + + | Home Phone [...] Team Providers + +------+ + | Care Sheriff'S Officer Name | Role | Phone | + +------+ + | Mehrdad Avalos MD | PCP | | + +------+ + Reason for Visit + + + | Reason | Comments | + + + | Sleep Study | | | (Follow-up) | | + + + Evaluate & Treat (Routine) +--------+--------+ + + + + | Status | Reason | Specialty | Diagnoses / | Referred By | Referred To | | | | | Procedures | Contact | Contact | +--------+--------+ + + + + | Closed | | Internal | Diagnoses | Robbie, | Sridevi, | | | | Medicine - | Obstructive | Mehrdad | Karthikeyan Moura | | | | Sleep | sleep apnea | MD Ck | MD [address] | | | | Medicine / | (adult) | [id number] [address] | [address] | | | | Sleep | (pediatric) | [place] | [facility] | | | | Medicine | HST RESULTS | [place], | [place] | | | | | LAST NOC | [place] [address] | [address] Phone: | | | | | PER SRIDEVI | Phone: | [phone] | | | | | Procedures | [phone] | Fax: | | | | | OFFICE VISIT | Fax: | [phone] | | | | | REGULAR | [phone] | | +--------+--------+ + + + + Encounter Details +--------+---------+ + + + | Date | Type | Department | Care Team | Description | +--------+---------+ + + + | 01/20/ | Office | [facility] | Karthikeyan Hdez | MARYURI (obstructive | | 2018 | Visit | SLEEP DISORDER [address] | MD [address] | sleep apnea); | | | | [facility] | [facility] | Obesity, unspecified | | | | [place] [address] | [place] [address] | classification, | | | | [phone] | [phone] | unspecified obesity | | | | | | type, unspecified | | | | | | whether serious | | | | | | comorbidity present | +--------+---------+ + + + Social History [...] + + + | Blood Pressure | 142/88 | 01/20/2019 2:14 PM | | | | | PST | | + + + + + | Pulse | 109 | 01/20/2019 2:14 PM | | | | | PST | | + + + + + | Temperature | - | - | | + + + + + | Respiratory Rate | 14 | 01/20/2019 2:14 PM | | | | | PST | | + + + + + | Oxygen Saturation | 97% | 01/20/2019 2:14 PM | | | | | PST | | + + + + + | Inhaled Oxygen | - | - | | | Concentration | | | | + + + + + | Weight | 90.5 kg (199 lb 10 | 01/20/2019 2:14 PM | | | | oz) | PST | | + + + + + | Height | - | - | | + + + + + | Body Mass Index | 34.27 | 01/04/2019 11:06 AM | | | | | PST | | + + + + + documented in this encounter Progress Notes Karthikeyan Hdez Jr., MD - 01/20/2019 2:15 PM PSTThe patient comes in for follow-up after undergoing home sleep apnea testing. My interpretation of the patient's sleep study, which I have reviewed with the patient, is as follows: Unattended, Multiparameter, Sleep Apnea Test for July Forte performed on [facility] 2018. Identifying Information: July Forte is a 48 y.o. female who is referred for toma ttended, multi-parameter, sleep apnea test because of probable Obstructive Sleep Apnea. Technical Information: The study was performed on January 19, 2019 using the [employer] equipment with PolysmitNaehas Version 11 Software. The study was hand scored and hand sujey zed. The following physiologic parameters were monitored: snoring, body position, oxygen sat uration, heart rate, nasal airflow (PTAF), oral airflow (thermister) and thoracic and abdomi nal effort (RIP belts). EEG was not monitored and thus sleep staging was not performed. The Monitoring Time is the recording time from lights off until lights on (the start of the rec ording until the recording stops, but it can also be from the time the patient went to bed u ntil he/she got out of bed and started his/her day - as determined by a sleep diary). A Mon itoring Time Sleep Efficiency of 100% was assumed for the purposes of calculating indices; t his assumption can result in a significant underestimation of disease severity. Because EEG was not monitored, Respiratory Effort Related Arousals could not be enumerated; this can als o result in underestimation of disease severity. The sensitivity for Obstructive Sleep Apnea of this type of study is high but the specificity is low. Definitions (The AASM Manual for the Scoring of Sleep and Associated Events, Version 2.5; 2 018): Apnea: There is a drop in the peak signal excursion by 90% or greater of pre-cece nt baseline using an oronasal thermal sensor, or an alternative apnea sensor and the duratio n of the 90% or greater drop in sensor signal is greater than or equal to 10 seconds. Obstructive Apnea: Event associated with continued or increased inspi ratory effort throughout the entire period of absent airflow. Central Apnea: Event associated with absent inspiratory effort throug hout the entire period of absent airflow. Because EEG is not monitored, Central Apneas canno t be scored with any degree of reliability on this type of sleep study. Mixed Apnea: Event associated with absent inspiratory effort in the i nitial portion of the event followed by resumption of inspiratory effort during the second p ortion of the event. Because EEG is not monitored, mixed apneas are not reliably scored on t his type of study. Respiratory Event: The peak signal excursions drop by greater than or equal to 3 0% of pre-event baseline using a recommended or alternative airflow sensor and the duration of the >= 30% drop in signal excursion is greater than or equal to 10 seconds and there is a greater than or equal to a 3% oxygen desaturation from pre-event baseline. Respiratory Event Related Arousal: Because EEG is not recorded, Respiratory Even t Related Arousal's cannot be enumerated. ROXANNE (Respiratory Event Index): Apneas plus Respiratory Events divided by Monitor ing Time. Results: Data collection commenced at 0 hundred hours on January 19, 2019 and data yvonne ection terminated at 0 hundred hours on 01/2019. During the 400 minutes monitoring time there were 14 obstructive apneas, 0 central apneas, 0 mixed apneas and 51 respiratory events. The ROXANNE was elevated at 9.8. The events were more frequent in the supine position (s upine ROXANNE 27.5, nonsupine ROXANNE 0.5). The respiratory events occasioned a ronn oxygen saturat ion of 83% and the patient spent 2.8 minutes with an oxygen saturation of less than or equal to 90%. The heart rate averaged in the upper 80s. Interpretation: This unattended, multiparameter, sleep apnea test is abnormal because of th e following: Obstructive sleep apnea is diagnosed and this is associated with mild oxygen desaturation. Suggestions: Treatment of Obstructive Sleep Apnea is advised. BP 142/88 | Pulse 109 | Resp 14 | Wt 90.5 kg (199 lb 10 oz) | SpO2 97% | BMI 34.27 kg/ m A: MARYURI: The patient has I think clinically significant obstructive sleep apnea with mild ox ygen desaturation. I discussed this with her. I discussed treatment options including weig ht loss, nonsupine sleeping, oral appliance therapy (although she wears dentures and thus is not a candidate for an oral appliance), and CPAP. I am advising a CPAP trial. I discussed this with her in detail also. She is willing to do this. I discussed CPAP with her and I discussed auto titrating CPAP. I have also discussed her positive airway pressure adherence clinic. P: Resmed AirSense 10 autoset CPAP 4-15cm while sleeping is prescribed. F/u 4 days after getting CPAP with our Clinical Sleep Educator and our PAP Adherence Clinic . Today, 15 minutes was spent face to face with the patient; the majority of time was spent c gisel regarding MARYURI and its treatment.. documented in th is encounter Plan of [...] [place] | | | | | | [address] | | | | | | | | +--------+ + + + + | 01/17/ | Office | Vascular Surgery | Bill Arevalo DNP | | | 2019 | Visit | | [address] | | | | | | [place] | | | | | | [address] | | | | | | | | +--------+ + + + + | 05/22/ | Office | Nephrology | Mariana Cortez W, | | | 2020 | Visit | | [address] | | | | | | [address] [place] | | | | | | [place] [address] | | | | | | [phone] | | | | | | | | +--------+ + + + + documented as of this encounter Visit Diagnoses + + | Diagnosis | + + | MARYURI (obstructive sleep apnea) Obstructive sleep apnea (adult) (pediatric) | + + | Obesity, unspecified classification, unspecified obesity type, unspecified whether | | serious comorbidity present | + + documented in this encounter"
--- OUTSIDE RECORDS SUMMARY | ~2019-11-09 | XMS | Encounter Summary ---
Demographics + + + | Address | [address] | | | [place] [address] | + + + | Home Phone [...] Team Providers + +------+ + | Care Ferruler Name | Role | Phone | + [...] + | 05/28/ | Clinical | [facility] [place] | Henok Luther MD | Extrinsic asthma, | | 2017 | Support | OTOLARYNGOLOGY [address] | [address] | unspecified asthma | | | | [address] | [address] [place], [place] | severity, | | | | [place] | [address] | unspecified whether | | | | [address] | | complicated, | | | | [phone] | | unspecified whether | | | [...] encounter Progress Notes Domenica Meredith RN - 05/28/2017 3:15 PM PDTFormatting of this note might [...] Mixed immunotherapy treatment vial for patient on 05/25/17. TREATMENT SET [facility] Sapna Forte TREES, DUST, DANDER: 87 05/28/2017 Allergen Extract Amount/mL Dilution Lot # Expiration Date [place] Mix [place] 0.2 C [id number] 11/30/19 Sugar Maple [place] 0.2 C 539299 07/01/19 [place] 0.2 C 839547 02/01/20 Spring Birch [place] 0.2 C 078102 11/30/19 Juniper 0.2 C 296545 04/29/19 [place] 0.2 C 732007 02/01/20 [place] 0.2 C 247469 04/29/19 Mites, Farinae 0.1 C 540403 09/30/18 Mites, Ptero. 0.1 C 044021 08/25/18 Cat Hair 0.1 C 487050 01/05/19 Dog Epi. Horse Epi Total Allergens : 1.7 ml. Saline: 0.8 ml. Total Volume: 2.5 ml. Mixed immunotherapy treatment vial for patient on 05/25/17. [facility]AT[facility] SET [facility] Molds, Insects & Feathers: 88 05/28/2017 Allergen Extract Amount/ml Dilution Lot # Expiration Date Alternaria Aspergillus Cladosporium Penicillium Bipolaris Sorok. 0.1 C 562967 11/30/19 Pullulans 0.1 C 970495 06/11/19 Mucor 0.1 C [id number] 10/28/19 Phoma Rhodotorula 0.1 C 696320 11/30/19 Fusarium Paecilomyces Grain Smut 0.1 C 035407 06/11/19 Grass Smut 0.1 C 257899 06/11/19 Am. Cockroach 0.1 C 824767 11/03/19 Mixed Feathers 0.1 C 037735 08/17/19 Total Allergens: 0.8 mL Saline: 1.7 mL [...] [place] | | | | | | [address] | | | | | | | | +--------+ + + + + | 01/17/ | Office | Vascular Surgery | Bill Arevalo DNP | | | 2019 | Visit | | [address] | | | | | | [place] | | | | | | [address] | | | | | | | | +--------+ + + + + | 05/22/ | Office | Nephrology | Mariana Cortez, | | | 2020 | Visit | | [address] | | | | | | [address] [place] | | | | | | [place] [address] | | | | | | [phone] | | | | | | | | +--------+ + + + + +-------+ +--------+ + + | Name | Type | Priori | Associated Diagnoses | Order Schedule | | | | ty | | | +-------+ +--------+ + + | Vials | Procedures | Routin | Extrinsic asthma, | Ordered: 05/28/2017 | | | | e | unspecified [...]
--- OUTSIDE RECORDS SUMMARY | ~2019-11-09 | XMS | Encounter Summary ---
Demographics + + + | Address | [address] | | | [place] [address] | + + + | Home Phone [...] Team Providers + +------+ + | Care Driver Medic Name | Role | Phone | + [...] | | | to pollen, | [place] [address] | [place], [place] | | | | | unspecified | Phone: | [phone] | | | | | chronicity | [phone] | Phone: | | | | | Allergic | Fax: | [phone] | | | | | rhinitis due | [phone] | Fax: | | | | | to animal | | [phone] | | | | | hair and [...] | +--------+ + + + + | 02/25/ | Clinical | [facility] [place] | Henok Luther MD | Extrinsic asthma, | | 2018 | Support | OTOLARYNGOLOGY [address] | [address] | unspecified asthma | | | | [address] | [address] [place] | severity, | | | | [place] | [address] | unspecified whether | | | | [address] | | complicated, | | | | [phone] | | unspecified whether | | | [...] encounter Progress Notes Domenica Meredith RN - 02/25/2017 1:30 PM PSTFormatting of this note might be [...] Mixed immunotherapy treatment vial for patient on 02/25/17. TREATMENT SET [place]ella [place] Jann TREES, DUST, DANDER: 87 02/25/2017 Allergen Extract Amount/mL Dilution Lot # Expiration Date [place] Mix [place] 0.2 C [id number] 11/30/19 Sugar Maple [place] 0.2 C 438080 05/25/19 [place] 0.2 C 596100 09/10/19 Spring Birch [place] Mark [place] 0.2 C 248527 11/30/19 Juniper 0.2 C 085969 04/25/19 [place] 0.2 C 773652 10/08/19 [place] 0.2 C 963605 04/29/19 Mites, Farinae 0.1 C 814333 09/08/18 Mites, Ptero. 0.1 C 540060 07/14/18 Cat Hair 0.1 C 672979 11/24/18 Dog Epi. Horse Epi Total Allergens : 1.7 ml. Saline: 0.8 ml. Total Volume: 2.5 ml. Mixed immunotherapy treatment vial for patient on 02/25/17. TREATMENT SET Lowella Sapna Jann Molds, Insects & Feathers: 88 02/25/2017 Allergen Extract Amount/ml Dilution Lot # Expiration Date Alternaria Aspergillus Cladosporium Penicillium Bipolaris Sorok. 0.1 C 817903 08/04/19 Pullulans 0.1 C 428740 06/11/19 Mucor 0.1 C [id number] 05/13/19 Phoma Rhodotorula 0.1 C 311894 06/11/19 Fusarium Paecilomyces Grain Smut 0.1 C 975101 06/11/19 Grass Smut 0.1 C 964641 06/11/19 Am. Cockroach 0.1 C 240768 06/11/19 Mixed Feathers 0.1 C 886924 08/17/19 Total Allergens: 0.8 mL Saline: 1.7 [...] [place] | | | | | | [address] | | | | | | | | +--------+ + + + + | 01/17/ | Office | Vascular Surgery | Bill Arevalo DNP | | | 2019 | Visit | | [address] | | | | | | [place] | | | | | | [address] | | | | | | | | +--------+ + + + + | 05/22/ | Office | Nephrology | Mariana Cortez W, | | | 2020 | Visit | | [address] | | | | | | [address] [facility] | | | | | | [place] [address] | | | | | | [phone] | | | | | | | | +--------+ + + + + +-------+ +--------+ + + | Name | Type | Priori | Associated Diagnoses | Order Schedule | | | | ty | | | +-------+ +--------+ + + | Vials | Procedures | Routin | Extrinsic asthma, | Ordered: 02/25/2017 | | | | e | unspecified [...] | | | dust mite | | | | | | Non-seasonal [...] | | | | chronicity | | +-------+ +--------+ + + documented [...] and dander, unspecified chronicity | + + documented in this encounter"
--- OUTSIDE RECORDS SUMMARY | ~2019-11-09 | XMS | Encounter Summary ---
Demographics + + + | Address | [address] | | | [place] [address] | + + + | Home Phone [...] Team Providers + +------+ + | Care Comb Tender Name | Role | Phone | [...] | | | | severity, | [place] [address] | [address] Phone: | | | | | uncomplicate | Phone: | [phone] | | | | | d | [phone] | Fax: | | | | | Non-seasonal | Fax: | [phone] | | | | | allergic | [phone] | | | | | | rhinitis [...] | +--------+ + + + + | 03/26/ | Clinical | [facility] [place] | Henok Luther MD | Non-seasonal | | 2017 | Support | OTOLARYNGOLOGY [address] | [address] | allergic rhinitis | | | | [address] | [address] [place] | due to pollen | | | | [place] | [address] | (Primary Dx); | | | | [address] | | Allergic rhinitis | | | | [phone] | | due to animal (cat) | [...] encounter Progress Notes Modesta Benitez RN - 03/26/2016 4:23 PM PSTFormatting of this note might be differ ent from the original. Patient presents with epi-pen & inhaler. No active wheezing or cough associated with asthma today. Denies delayed reaction from previous allergy injection. Whole right arm started itc helen at 7 pm night of last allergy injection. Patient took a benadryl and it was resolved fa irly quickly. No fever or allergy related rash. No recent heavy exposure to allergens. No pl ans for strenuous exercise immediately before or after injection today. Mixed immunotherapy treatment vial for patient on 03/13/16. [facility] SET [facility] Sapna Jann Molds, Insects & Feathers: 88 03/26/2016 Allergen Extract Amount/ml Dilution Lot # Expiration Date Alternaria Aspergillus Cladosporium Penicillium Bipolaris Sorok. 0.1 C 297881 10/23/18 Pullulans 0.1 C 413689 12/31/18 Mucor 0.1 C 093994 09/18/18 Phoma Rhodotorula 0.1 C 086992 10/22/18 Fusarium Paecilomyces Grain Smut 0.1 C 751621 07/07/18 Grass Smut 0.1 C 475247 09/18/18 Am. Cockroach 0.1 C 247559 09/18/18 Mixed Feathers 0.1 C 304487 10/22/18 Total Allergens : 0.8 ml. Saline: 1.7 Total Volume : 2.5 ml. 4:5 9 PM PSTdocumented in this encounter Plan of [...] [place] | | | | | | [address] | | | | | | | | +--------+ + + + + | 01/17/ | Office | Vascular Surgery | Bill Arevalo DNP | | | 2019 | Visit | | [address] | | | | | | [place] | | | | | | [address] | | | | | | | | +--------+ + + + + | 05/22/ | Office | Nephrology | Mariana Cortez, | | | 2020 | Visit | | [address] | | | | | | [address] [place] | | | | | | [place] [address] | | | | | | [phone] | | | | | | | | +--------+ + + + + +-------+ +--------+ + + | Name | Type | Priori | Associated Diagnoses | Order Schedule | | | | ty | | | +-------+ +--------+ + + | Vials | Procedures | Routin | Non-seasonal | Ordered: 03/26/2016 | | | | e | allergic [...] | | | | | | mite Asthmatic | | | | | | bronchitis, | | | | | | unspecified asthma | | | | | | severity, | | | | | | uncomplicated | | +-------+ +--------+ + + documented [...]
--- OUTSIDE RECORDS SUMMARY | ~2019-11-09 | XMS | Encounter Summary ---
Demographics + + + | Address | [address] | | | [place] [address] | + + + | Home Phone [...] Author + + + | Author | [facility] | | | and [place] | + + + | Organization | [facility] | | [...] Team Providers + +------+ + | Care Keel Press Operator Name | Role | Phone | [...] | | | | to pollen | [place] [address] | [address] Phone: | | | | | Allergic | Phone: | [phone] | | | | | rhinitis due | [phone] | Fax: | | | | | to dust | Fax: | [phone] | | | | | Mild | [phone] | | | | | | intermittent [...] + | 02/25/ | Clinical | [facility] | Henok Luther MD | Extrinsic asthma, | | 2019 | Support | OTOLARYNGOLOGY [address] | [address] | unspecified asthma | | | | [address] | [address] [place] | severity, | | | | [place] | [address] | unspecified whether | | | | [address] | | complicated, | | | | [phone] | | unspecified whether | | | [...] encounter Progress Notes Domenica Meredith RN - 02/25/2018 4:15 PM PSTPatient presents with epi-pen & inhaler. No ac tive wheezing or cough associated with asthma today. Denies delayed reaction from previous a llergy injection. No fever or allergy related rash. No recent heavy exposure to allergens. N o plans for strenuous exercise immediately before or after injection today.Electronically si gned by Domenica Meredith RN at 02/25/2018 4:29 PM PSTdocumented in this encounter Plan of [...] [place] | | | | | | [address] | | | | | | | | +--------+ + + + + | 05/22/ | Office | Nephrology | Mariana Cortez, | | | 2020 | Visit | | MD [address] | | | | | | [address] [place] | | | | | | [place] [address] | | | | | | [phone] | | | | | | | [...]
--- OUTSIDE RECORDS SUMMARY | ~2019-11-09 | XMS | Encounter Summary ---
Demographics + + + | Address | [address] | | | [place] [address] | + + + | Home Phone [...] Team Providers + +------+ + | Care Ham Stripper Name | Role | Phone | + +------+ + | Ronel Jacobson PA-C | PCP | | + +------+ + Encounter Details +--------+ + + + + | Date | Type | Department | Care Team | Description | +--------+ + + + + | 04/16/ | Orders Only | [facility] | Mariana Cortez, | CKD (chronic kidney | | 2018 | | NEPHROLOGY [address] | [address] | disease) stage 3, | | | | [address] | [address] [place] | GFR 30-59 ml/min | | | | [place], [place] | [place] [address] | ([facility]) (Primary Dx) | | | | [address] | [phone] | | | | | [phone] | | | +--------+ + + + [...] this encounter Progress Ada Rene RN - 04/16/2017 10:47 AM PSTLabs for upcoming nephrology appointment sent to: [facility] [place] signed by Ada Serrano RN at 04/16/2017 10:48 AM PSTdocumented in this encounter Plan of [...] [place] | | | | | | [id number] | | | | | | | | +--------+ + + + + | 01/17/ | Office | Vascular Surgery | Bill Arevalo DNP | | | 2019 | Visit | | [address] | | | | | | [place] | | | | | | [address] | | | | | | | | +--------+ + + + + | 05/22/ | Office | Nephrology | Mariana Cortez, | | | 2020 | Visit | | [address] | | | | | | [address] [place] | | | | | | [place] [address] | | | | | | [phone] | | | | | | | | +--------+ + + + + documented as of this encounter Visit Diagnoses + + | Diagnosis | + + | CKD (chronic kidney disease) stage 3, GFR 30-59 ml/min (HCC) - Primary Chronic kidney | | disease, Stage III (moderate) | + + documented in this encounter"
--- OUTSIDE RECORDS SUMMARY | ~2019-11-09 | XMS | Encounter Summary ---
Demographics + + + | Address | [address] | | | [place] [address] | + + + | Home Phone [...] Organization | [facility] [...] Team Providers + +------+ + | Care Ordnance Truck Installation Supervisor Name | Role | Phone | + +------+ + | Ronel Jacobson PA-C | PCP | | + +------+ + Reason for Visit + +--------+ + | Reason | Onset | Comments | | | Date | | + +--------+ + | Medication Refill | 05/15/ | | | | 2016 | | + +--------+ + Encounter Details +--------+--------+ + + + | Date | Type | Department | Care Team | Description | +--------+--------+ + + + | 05/15/ | Refill | [facility] [place] | Henok Luther MD | Medication Refill | | 2016 | | OTOLARYNGOLOGY [address] | [address] [place] [address] | | | | | [address] [facility] [address] | [address] [place] | | | | | [place] | [address] | | | | | [address] | | | | | | [phone] | | | +--------+--------+ + + + Social History + + [...] [place] | | | | | | [address] | | | | | | | | +--------+ + + + + | 01/17/ | Office | Vascular Surgery | Bill Arevalo DNP | | | 2019 | Visit | | [address] | | | | | | [address] [address] [place] | | | | | | [address] | | | | | | | | +--------+ + + + + | 05/22/ | Office | Nephrology | Mariana Cortez, | | | 2020 | Visit | | [address] | | | | | | [address] [place] | | | | | | [place] [address] | | | | | | [phone] | | | | | | | | +--------+ + + + + documented as of this encounter Visit Diagnoses Not on filedocumented in this encounter"
--- OUTSIDE RECORDS SUMMARY | ~2019-11-09 | XMS | Encounter Summary ---
Demographics + + + | Address | [address] | | | [place] [address] | + + + | Home Phone [...] Team Providers + +------+ + | Care Email Marketer Name | Role | Phone | + [...] [address] [place] | | | | | [place], [place] | [place] [address] | | | | | [address] | [phone] | | | | | [phone] | | | +--------+ + + + [...] [place] | | | | | | [address] | | | | | | | | +--------+ + + + + | 01/17/ | Office | Vascular Surgery | Bill Arevalo DNP | | | 2019 | Visit | | [address] | | | | | | [place] | | | | | | [address] | | | | | | | | +--------+ + + + + | 05/22/ | Office | Nephrology | Mariana Cortez W, | | | 2020 | Visit | | [address] | | | | | | [address] [place] | | | | | | [place] [address] | | | | | | [phone] | | | | | | | | +--------+ + + + + documented as of this encounter Procedures + +--------+ + + + | Procedure Name | Priori | Date/Time | Associated Diagnosis | Comments | | | ty | | | | + +--------+ + + + | EXTERNAL LAB: LEVI | Routin | 05/08/2016 | | Results for this | | | e | | | procedure are in the | | | | | | results section. | + +--------+ + + + | EXTERNAL LAB: | Routin | 05/08/2016 | | Results for this | | GLUCOSE | e | | | procedure are in the | | | | | | results section. | + +--------+ + + + | EXTERNAL LAB: ALT | Routin | 05/08/2016 | | Results for this | | | e | | | procedure are in the | | | | | | results section. | + +--------+ + + + | EXTERNAL LAB: AST | Routin | 05/08/2016 | | Results for this | | | e | | | procedure are in the | | | | | | results section. | + +--------+ + + + | EXTERNAL LAB: | Routin | 05/08/2016 | | Results for this | | ALKALINE PHOSPHATASE | e | | | procedure are in the | | | | | | results section. | + +--------+ + + + | EXTERNAL LAB: | Routin | 05/08/2016 | | Results for this | | BILIRUBIN, TOTAL | e | | | procedure are in the | | | | | | results section. | + +--------+ + + + | EXTERNAL LAB: | Routin | 05/08/2016 | | Results for this | | ALBUMIN | e | | | procedure are in the | | | | | | results section. | + +--------+ + + + | EXTERNAL LAB: | Routin | 05/08/2016 | | Results for this | | PROTEIN, TOTAL | e | | | procedure are in the | | | | | | results section. | + +--------+ + + + | EXTERNAL LAB: | Routin | 05/08/2016 | | Results for this | | CALCIUM | e | | | procedure are in the | | | | | | results section. | + +--------+ + + + | EXTERNAL LAB: CARBON | Routin | 05/08/2016 | | Results for this | | DIOXIDE | e | | | procedure are in the | | | | | | results section. | + +--------+ + + + | EXTERNAL LAB: | Routin | 05/08/2016 | | Results for this | | CHLORIDE | e | | | procedure are in the | | | | | | results section. | + +--------+ + + + | EXTERNAL LAB: | Routin | 05/08/2016 | | Results for this | | POTASSIUM | e | | | procedure are in the | | | | | | results section. | + +--------+ + + + | EXTERNAL LAB: SODIUM | Routin | 05/08/2016 | | Results for this | | | e | | | procedure are in the | | | | | | results section. | + +--------+ + + + | EXTERNAL LAB: EGFR | Routin | 05/08/2016 | | Results for this | | | e | | | procedure are in the | | | | | | results section. | + +--------+ + + + | EXTERNAL LAB: | Routin | 05/08/2016 | | Results for this | | CREATININE | e | | | procedure are in the | | | | | | results section. | + +--------+ + + + documented in this encounter Results External Lab: BUN (05/08/2016) + +--------+ + + + | Component | Value | Ref Range | Performed | Pathologist | | | | | At | Signature | + +--------+ + + + | BUN, | 40 (A) | 8 - 25 | EXTERNAL [...] + +---------+ + + External Lab: Glucose (05/08/2016) + +---------+ + + + | Component | Value | Ref Range | Performed | Pathologist | | | | | At | Signature | + +---------+ + + + | Glucose, | 193 (A) | 8 - 25 | EXTERNAL [...] + +---------+ + + External Lab: ALT (05/08/2016) + +-------+ + + + | Component | Value | Ref Range | Performed | Pathologist | | | | | At | Signature | + +-------+ + + + | ALT, | 9 | 0 - 33 | EXTERNAL | [...] + +---------+ + + External Lab: AST (05/08/2016) + +-------+ + + + | Component | Value | Ref Range | Performed | Pathologist | | | | | At | Signature | + +-------+ + + + | AST, | 13 | 0 - 32 | EXTERNAL | [...] +---------+ + + External Lab: Alkaline Phosphatase (05/08/2016) + +-------+ + + + | Component | Value | Ref Range | Performed | Pathologist | | | | | At | Signature | + +-------+ + + + | ALP, | 75 | 35 - 104 | EXTERNAL | [...] +---------+ + + External Lab: Bilirubin, Total (05/08/2016) + +-------+ + + + | Component | Value | Ref Range | Performed | Pathologist | | | | | At | Signature | + +-------+ + + + | Bilirubin, | 0.2 | 0.1 - 1.5 | EXTERNAL | | | Total, | [...] + +---------+ + + External Lab: Albumin (05/08/2016) + +---------+ + + + | Component | Value | Ref Range | Performed | Pathologist | | | | | At | Signature | + +---------+ + + + | Albumin, | 3.2 (A) | 0.1 - 1.5 | EXTERNAL | | | [...] +---------+ + + External Lab: Protein, Total (05/08/2016) + +-------+ + + + | Component | Value | Ref Range | Performed | Pathologist | | | | | At | Signature | + +-------+ + + + | Protein, | 6.8 | 6.2 - 8.2 | EXTERNAL | | | Total, | [...] + +---------+ + + External Lab: Calcium (05/08/2016) + +-------+ + + + | Component | Value | Ref Range | Performed | Pathologist | | | | | At | Signature | + +-------+ + + + | Calcium, | 8.9 | | EXTERNAL | | | External [...] +---------+ + + External Lab: Carbon Dioxide (05/08/2016) + +--------+ + + + | Component | Value | Ref Range | Performed | Pathologist | | | | | At | Signature | + +--------+ + + + | Carbon | 20 (A) | 22 - 29 | EXTERNAL [...] + +---------+ + + External Lab: Chloride (05/08/2016) + +-------+ + + + | Component | Value | Ref Range | Performed | Pathologist | | | | | At | Signature | + +-------+ + + + | Chloride, | 103 | 97 - 107 | EXTERNAL | [...] + +---------+ + + External Lab: Potassium (05/08/2016) + +-------+ + + + | Component | Value | Ref Range | Performed | Pathologist | | | | | At | Signature | + +-------+ + + + | Potassium, | 5.2 | 3.5 - 5.3 | EXTERNAL | [...] + +---------+ + + External Lab: Sodium (05/08/2016) + +-------+ + + + | Component | Value | Ref Range | Performed | Pathologist | | | | | At | Signature | + +-------+ + + + | Sodium, | 137 | 135 - 145 | EXTERNAL | [...] + +---------+ + + External Lab: eGFR (05/08/2016) + +-------+ + + + | Component | Value | Ref Range | Performed | Pathologist | | | | | At | Signature | + +-------+ + + + | eGFR, | 49 | | EXTERNAL | | | External [...] + +---------+ + + External Lab: Creatinine (05/08/2016) + +---------+ + + + | Component | Value | Ref Range | Performed | Pathologist | | | | | At | Signature | + +---------+ + + + | Creatinine, | 1.2 (A) | 0.5 - 1 | EXTERNAL [...]
--- OUTSIDE RECORDS SUMMARY | ~2019-11-09 | XMS | Encounter Summary ---
Demographics + + + | Address | [address] | | | [place] [address] | + + + | Home Phone [...] Team Providers + +------+ + | Care Foam Dispenser Name | Role | Phone | + [...] | | | rhinitis due | [place] [address] | [address] Phone: | | | | | to animal | Phone: | [phone] | | | | | (cat) (dog) | [phone] | Fax: | | | | | hair and | Fax: | [phone] | | | | | dander | [phone] | | | | | | Allergic [...] + + + + | 10/07/ | Clinical | [facility] [place] | Henok Luther MD | Allergic rhinitis | | 2016 | Support | OTOLARYNGOLOGY [address] | [address] | due to pollen | | | | [address] | [address] [place] | (Primary Dx); | | | | [place] | [address] | Allergic rhinitis | | | | [address] | | due to animal (cat) | | | | [phone] | | (dog) hair and | | [...] + documented as of this encounter Progress Mala Guevara RN - 10/08/2015 2:14 PM PDTPatient presents with epi-pen & inhaler. N [...] [place] | | | | | | [address] | | | | | | | | +--------+ + + + + | 01/17/ | Office | Vascular Surgery | Bill Arevalo DNP | | | 2019 | Visit | | [address] | | | | | | [place] | | | | | | [address] | | | | | | | | +--------+ + + + + | 05/22/ | Office | Nephrology | CortezMariana, | | | 2020 | Visit | | [address] | | | | | | [address] [place] | | | | | | [place] [address] | | | | | | [phone] | | | | | | | [...]
--- OUTSIDE RECORDS SUMMARY | ~2019-11-09 | XMS | Encounter Summary ---
Demographics + + + | Address | [address] | | | [place] [address] | + + + | Home Phone | | + + + | Preferred Language | Unknown | + + + | Marital Status | Single | + + + | Cheondoism Affiliation | Unknown | + + + [...] Team Providers + +------+ + | Care Hearing Specialist Name | Role | Phone | + +------+ + PCP | Unavailable | + +------+ + Reason for Visit + + + | Reason | Comments | + + + | Chronic Kidney | Stage 3 | | Disease | | + + + Follow Up (Routine) +--------+--------+ + + + + | Status | Reason | Specialty | Diagnoses / | Referred By | Referred To | | | | | Procedures | Contact | Contact | +--------+--------+ + + + + | Closed | | Nephrology | Diagnoses | Edy, | [place], | | | | | F/U POST | MD Orin | Mariana Hua, | | | | | [facility] | [address] | | | | | STAY / | [address] [place] | [address] | | | | | DISCHARGE - | [place] | [address] | | | | | [place] | [address] | [place] | | | | | | Phone: | [place] [address] | | | | | | [phone] | Phone: | | | | | | Fax: | [phone] | | | | | | [phone] | Fax: | | | | | | | [phone] | +--------+--------+ + + + + Encounter Details +--------+---------+ + + + | Date | Type | Department | Care Team | Description | +--------+---------+ + + + | 02/01/ | Office | [facility] | Mariana Cortez, | [id number] | | 2012 | Visit | NEPHROLOGY [address] | [address] | kidney injury (HCC) | | | | [address] | [address] [place] | (Primary Dx); CKD | | | | [place], [place] | [place] [address] | (chronic kidney | | | | [address] | [phone] | disease) stage 2, | | | | [phone] | | GFR 60-89 ml/min; | | | | | | Renal tubular | | | | | | acidosis, type 4; | | | | | | Hypertension | +--------+---------+ + + + Social History [...] + + + | Blood Pressure | 146/80 | 02/01/2013 9:04 AM | | | | | PST | | + + + + + | Pulse | 92 | 02/01/2013 9:04 AM | | | | | PST [...] + + + + | Weight | 95 kg (209 lb 8 oz) | 02/01/2013 9:04 AM | | | | | PST | | + + + + + | Height | 160 cm (5' 3") | 02/01/2013 9:04 AM | | | | | PST | | + + + + + | Body Mass Index | 37.11 | 02/01/2013 9:04 AM | | | | | PST | | + + + + + documented in this encounter Patient Instructions Patient Instructions Mariana Cortez MD - 02/01/2013 9:38 AM PSTYour goal blood pressur e is around 120-135/ <90. Recheck kidney function and potassium level on , 02/03, non-fasting. Your last kidney test showed decreased kidney function, which may be due to low blood press ure you were experiencing. Hopefully, with the lower Losartan dose, your kidney function wi ll be back to baseline. Keep taking Bumetanide 2 mg twice a day. In the future, we may decrease the amount of Bume tanide. Return in May as scheduled. documented in this encounter Progress Notes Mariana Cortez MD - 02/01/2013 9:13 AM PSTFormatting of this note might be different f rom the original. Nephrology Follow-up Visit Visit date: 02/01/2013 Primary care provider: Orin Snow MD HPI: July Forte is a 42 y.o. female with proteinuric chronic kidney disease, likely due to diabetic nephropathy, type 2 DM, hypertension, and obesity. Pt was last seen on 11/10/12. Pt was started on Lasix 20 mg QDAY, titrated to 40 mg QDAY. Unfortunately, pt did not have an effective diuresis, and on 11/16/12, she presented to [facility] with bilaterally pulmonary edema. Pt's echocardiogram was normal with EF 60%. Per discha rge summary, pt was diuresed with Lasix, and discharged on Lasix 40 mg QDAY. Post-discharge , pt reports she started to gain weight again, and Dr. Snow switched her diuretic to Bumet anide. Pt is taking Bumetanide 2 mg BID, and reports this has worked very well. Pt reports her swelling is completely resolved. Pt denies shortness of breath, chest pain, abdominal pain, urinary difficulty. Pt reports she was experiencing lightheadedness and low systemic blood pressure. On 01/26/13, Dr. Snow decreased her Losartan from 100 mg to 50 mg QDAY. Pt reports feeling better on this dose. Pt has not taken her anti-hypertensive medications today. ROS: A 6-system review was performed, and [...] Outpatient Prescriptions Marked as Taking for the 02/01/13 encounter (Office Visit) with Geovani Cortez MD Medication Sig Dispense Refill B-D UF III MINI PEN NEEDLES 31G X [address] [facility] CROW CONTOUR TEST strip 4 strips Daily. bumetanide (BUMEX) 0.5 mg tablet Take 2 mg by mouth 2 times daily. cholecalciferol (VITAMIN D-3) 5000 UNITS TABS Take 5,000 Units by mouth Daily. cyanocobalamin (VITAMIN B-12) 500 mcg tablet Take 1,000 mcg by mouth Daily. glipiZIDE (GLUCOTROL XL) 5 mg 24 hr tablet Take 5 mg by mouth Daily. losartan (COZAAR) 50 mg tablet Take 50 mg by mouth Daily. metoprolol (TOPROL-XL) 100 MG 24 hr tablet Take 100 mg by mouth Daily. simvastatin (ZOCOR) 10 mg tablet Take 10 mg by mouth nightly. sitagliptan (JANUVIA) 50 MG tablet Take 1 tablet by mouth 2 times daily. 60 tablet [address] [facility] Physical Exam: Filed Vitals: 02/01/13 0904 BP: 146/80 Pulse: 92 Height: 1.6 m (5' 3") Weight: 95.029 kg (209 lb 8 oz) Constitutional: Appears well-developed and well-nourished. No distress. Cardiovascular: Normal rate, regular rhythm and normal heart sounds. No peripheral edema. Lungs: Respiratory effort normal and breath sounds normal. No crackles or wheezes. Abdominal: Soft. Bowel sounds are present. Neurological: Alert. Memory intact. Reviewed labs with patient. Creatinine, External Date Value Range Status 01/17/2013 1.45 Final Lab Results Component Value Date BUN 82 01/17/2013 NA 131 01/17/2013 K 5.4 01/17/2013 CL 101 01/17/2013 CO2 21 01/17/2013 GLUCOSE Date Value Range Status 01/17/2013 177 Final Lab Results Component Value Date PTH 7.53 10/06/2012 CALCIUM 8.9 01/17/2013 PHOS 5.5* 01/17/2013 ALBUMIN Date Value Range Status 01/17/2013 3.7 3.5 - 5.0 g/dL Final eGFR, External Date Value Range Status 01/17/2013 40 Final Lab Results Component Value Date WBC 8.8 10/06/2012 HGB 13.0 09/10/2012 Urine protein/creatinine ratio=0.6 Recent Results (from the past 24 hour(s)) POCT URINALYSIS Component Value Range POC COLOR UA Light Yellow POC CLARITY UA Clear POC GLUCOSE UA Negative POC BILIRUBIN UA Negative POC KETONES UA Negative Negative POC SPECIFIC GRAVITY UA 1.010 POC BLOOD UA Trace Intact POC PH UA 5.0 POC PROTEIN UA >=300 mg/dL POC UROBILINOGEN UA 0.2 E.U./dL POC NITRITE UA Negative POC LEUKOCYTE ESTERASE UA Trace RED SUB UA Negative ICTOTEST Negative REMARK ASSESSMENT AND PLAN: 1. Acute on chronic kidney disease: Last serum creatinine 1.45 is elevated from baseline of 0.9 mg/dL. This may be due to prerenal azotemia, as pt describes episodes of hypotension. Her losartan dose was decreased on 01/26/13. -will check renal panel this week to assess if her serum creatinine is back to baseline 2. Chronic kidney disease, proteinuria: Likely due to diabetic nephropathy and hypertensive nephrosclerosis. Her UPCR 0.6 on 01/26/13, much improved from prior UPCR. 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 Given her history of hypertension, I do not recommend treating with fludrocortisone. -counseled pt to maintain low potassium diet 4. Hypertension / volume status: Pt reports she responded very well to bumetanide, but has no response to furosemide. -continue bumetanide 5. DM type 2: Pt reports her glycemic control has been good on oral medications alone. 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 On vit D. -will recheck labs this week Renal panel on 02/03/13 at [facility]. Return in May or sooner if necessary: renal panel, vit d, pth, urine prot/cr ratio, Cc: Dr. Orin Snow documented in this [...] [place] | | | | | | [address] | | | | | | | | +--------+ + + + + | 05/22/ | Office | Nephrology | Mariana Cortez, | | | 2020 | Visit | | [address] | | | | | | [address] [place] | | | | | | [place] [address] | | | | | | [phone] | | | | | | | | +--------+ + + + + documented as of this encounter Procedures + +--------+ + + + | Procedure Name | Priori | Date/Time | Associated Diagnosis | Comments | | | ty | | | | + +--------+ + + + | POCT URINALYSIS, | Routin | 02/01/2013 | [id number] | Results for this | | AUTO WITH CONF | e | 9:03 AM | kidney injury (HCC) | procedure are in the | | | | PST | | results section. | + +--------+ + + + documented in this encounter Results POCT Urinalysis Dipstick Automated (02/01/2013 9:03 AM PST) + + + + + + | Component | Value | Ref Range | Performed | Pathologist | | | | | At | Signature | + + + + + + | Color, UA, | Light Yellow | | | | | POC | | | | | + + + + + + | Clarity, | Clear | | | | | UA, POC | | | | | + + + + + + | Glucose, | Negative | | | | | [...] + + | Specific | 1.010 | | | | | [place], | | | | | | UA, [...] + | Diagnosis | + + | Mdkoo-[id number] kidney injury (HCC) - Primary Acute kidney failure, unspecified | + + | CKD (chronic kidney disease) stage 2, GFR 60-89 ml/min Chronic kidney disease, Stage | | II (mild) | + + | Renal tubular acidosis, type 4 Other specified disorders resulting from impaired | | renal function | + + | Hypertension Unspecified essential hypertension | + + documented in this encounter
--- OUTSIDE RECORDS SUMMARY | ~2019-11-09 | XMS | Encounter Summary ---
Demographics + + + | Address | [address] | | | [place] [address] | + + + | Home Phone [...] Team Providers + +------+ + | Care Delivery Nurse Name | Role | Phone | + +------+ + | Mehrdad Avalos MD | PCP | | + +------+ + Reason for Visit +--------+--------+ + | Reason | Onset | Comments | | | Date | | +--------+--------+ + | Pre-Op | 09/26/ | | | | 2020 | | +--------+--------+ + Encounter Details +--------+ + + + + | Date | Type | Department | Care Team | Description | +--------+ + + + + | 09/26/ | Telephone | [facility] | Avel Upton MD | Pre-Op | | 2020 | | CENTER CV INTRA OP | [address] | | | | | [address] | [address] [place], [place] | | | | | [place], [place] | [address] | | | | | [address] | [phone] | | | | | [phone] | | | +--------+ + + + [...] this encounter Miscellaneous Notes Telephone Encounter - August Olmos - 09/27/2019 12:36 PM PDTSpoke with patient regarding pr e op instructions. Asked all COVID-19 scheduling questions. All answers were no. documented in this encounter Plan of Treatment [...] [place] | | | | | | [address] | | | | | | | | +--------+ + + + + | 05/22/ | Office | Nephrology | Mariana Cortez, | | | 2020 | Visit | | [address] | | | | | | [address] [place] | | | | | | [place] [address] | | | | | | [phone] | | | | | | | | +--------+ + + + + documented as of this encounter Visit Diagnoses Not on filedocumented in this encounter"
--- OUTSIDE RECORDS SUMMARY | ~2019-11-09 | XMS | Encounter Summary ---
Demographics + + + | Address | [address] | | | [place] [address] | + + + | Home Phone [...] Team Providers + +------+ + | Care Deburring Technician Name | Role | Phone | [...] | | | rhinitis due | [place] [address] | [address] Phone: | | | | | to animal | Phone: | [phone] | | | | | (cat) (dog) | [phone] | Fax: | | | | | hair and | Fax: | [phone] | | | | | dander | [phone] | | | | | | Allergic [...] + | 08/19/ | Clinical | [facility] [place] | Henok Luther MD | Allergic rhinitis | | 2016 | Support | OTOLARYNGOLOGY [address] | [address] [place] | due to pollen | | | | [address] | [address] [place] | (Primary Dx); | | | | [place] | [address] | Allergic rhinitis | | | | [address] | | due to animal (cat) | | | | [phone] | | (dog) hair and | | [...] this encounter Progress Modesta Willis RN - 08/20/2015 4:04 PM PDTFormatting of this note might be [...] two immunotherapy treatment vials for patient on 11/08/15. TREATMENT SET July Forte Weeds & Grass: 86 08/20/2015 Allergen Extract Amount/ml Dilution Lot # Expiration Date Ragweed Mix Pigweed 0.2 1 [id number] 01/20/18 Kochia 0.2 C 165265 01/20/18 Humphrey's Quarter 0.2 C 590069 03/19/18 Luther Elder 0.2 C 884014 05/19/18 Russian Plantain 0.2 C 163207 05/19/18 False Ragweed 0.2 C 085057 03/19/18 Senegalese Thistle 0.2 2 172840 03/19/18 Sagebrush 0.2 2 253045 07/07/18 Sheep [place] Dandelion 0.2 C 500170 01/20/18 Atriplex Mix 0.2 2 640608 03/19/18 #7 Grass Mix 0.2 2 173385 11/27/16 Bermuda Grass 0.2 C [id number] 03/16/19 Sameer Grass 0.2 C 869651 03/19/18 Collin 0.2 1 001816 03/19/18 Total Allergens: 2.8. Saline: 0.2. Total Volume: 3.0. TREATMENT SET July Forte TREES, DUST, EPIDERMAL: 87 08/20/2015 Allergen Extract Amount/mL Dilution Lot # Expiration Date [place] Mix [place] 0.2 1 [id number] 03/19/18 Sugar Maple Western [place] 0.2 1 135630 04/09/18 Citrus 0.2 1 696846 05/19/18 Spring Birch White [place] Mark Anthony 0.2 1 798601 05/19/18 Juniper 0.2 1 640218 03/19/18 Black Jolley 0.2 C 475422 03/19/18 Senegalese C[place]on 0.2 C 661957 03/19/18 Mites, Farinae 0.1 2 743382 01/21/17 Mites, Ptero. 0.1 2 505685 10/22/16 Cat Hair 0.1 C 301905 09/10/16 Dog Epi. Horse Epi Total Allergens : 1.7. Saline: 0.8. Total Volume: 2.5. documented in this encounter Plan of Treatment +--------+ + + + + | Date | Type | Specialty | Care Team | Description | +--------+ + + + + | 01/17/ | Appointment | Radiology | Bill Arevalo DNP | | | 2019 | | | [address] | | | | | | [place] | | | | | | [address] | | | | | | | | +--------+ + + + + | 01/17/ | Office | Vascular Surgery | Bill Arevalo DNP | | | 2019 | Visit | | [address] | | | | | | [place] | | | | | | [address] | | | | | | | | +--------+ + + + + | 05/22/ | Office | Nephrology | Dana Mariana Hua, | | | 2020 | Visit | | [address] | | | | | | [address] [place] | | | | | | [place] [address] | | | | | | [phone] | | | | | | | [...]
--- OUTSIDE RECORDS SUMMARY | ~2019-11-09 | XMS | Encounter Summary ---
Demographics + + + | Address | [address] | | | [place] [address] | + + + | Home Phone [...] Team Providers + +------+ + | Care Home Planning Consultant Salesperson Name | Role | Phone | + [...] | | | hair and | [place] [address] | [place], [place] | | | | | dander | Phone: | [phone] | | | | | Non-seasonal | [phone] | Phone: | | | | | allergic | Fax: | [phone] | | | | | rhinitis due | [phone] | Fax: | | | | | to pollen | | [phone] | | | | | Extrinsic | [...] | +--------+ + + + + | 11/06/ | Clinical | [facility] [place] | Henok Luther MD | Extrinsic asthma, | | 2017 | Support | OTOLARYNGOLOGY [address] | [address] | unspecified (Primary | | | | [address] | [address] [place] | Dx); Non-seasonal | | | | [place] | [address] | allergic rhinitis | | | | [address] | | due to pollen; | | | | [phone] | | Allergic rhinitis | | | [...] encounter Progress Notes Domenica Meredith RN - 11/06/2016 4:00 PM PDTPatient presents with epi-pen & inhaler. No ac tive wheezing or cough associated with asthma today. Denies delayed reaction from previous a llergy injection. No fever or allergy related rash. No recent heavy exposure to allergens. N o plans for strenuous exercise immediately before or after injection today.Electronically si gned by Domenica Meredith RN at 11/06/2016 4:31 PM PDTdocumented in this encounter Plan of [...] [place] | | | | | | [address] | | | | | | | | +--------+ + + + + | 05/22/ | Office | Nephrology | Mariana Cortez, | | | 2020 | Visit | | [address] | | | | | | [address] [place] | | | | | | [place] [address] | | | | | | [phone] | | | | | | | [...]
--- OUTSIDE RECORDS SUMMARY | ~2019-11-09 | XMS | Encounter Summary ---
Demographics + + + | Address | [address] | | | [place] [address] | + + + | Home Phone [...] Team Providers + +------+ + | Care Soaker Meat Name | Role | Phone | + [...] | unspecified | [address] | [address] [place] | | | | | asthma | [place], | [place], [place] | | | | | severity, | [place] [address] | [address] Phone: | | | | | uncomplicate | Phone: | [phone] | | | | | d | [phone] | Fax: | | | | | Non-seasonal | Fax: | [phone] | | | | | allergic | [phone] | | | | | | rhinitis [...] + | 04/16/ | Clinical | [facility] [place] | Henok Luther MD | Non-seasonal | | 2017 | Support | OTOLARYNGOLOGY [address] | [address] | allergic rhinitis | | | | [address] | [address] [place] | due to pollen | | | | [place], [place] | [address] | (Primary Dx); | | | | [address] | | Allergic rhinitis | | | | [phone] | | due to animal (cat) | [...] encounter Progress Notes Narda Lay RN - 04/16/2016 4:15 PM PSTPatient presents with epi-pen & [...] [place] | | | | | | [address] | | | | | | | | +--------+ + + + + | 01/17/ | Office | Vascular Surgery | Bill Arevalo DNP | | | 2019 | Visit | | [address] | | | | | | [place] | | | | | | [address] | | | | | | | | +--------+ + + + + | 05/22/ | Office | Nephrology | Mariana Cortez, | | | 2020 | Visit | | [address] | | | | | | [address] [place] | | | | | | [place] [address] | | | | | | [phone] | | | | | | | [...]
--- OUTSIDE RECORDS SUMMARY | ~2019-11-09 | XMS | Encounter Summary ---
Demographics + + + | Address | [address] | | | [place] [address] | + + + | Home Phone [...] Team Providers + +------+ + | Care Dipper And Baker Name | Role | Phone | + +------+ + | Ronel Jacobson PA-C | PCP | | + +------+ + Reason for Visit + +--------+ + | Reason | Onset | Comments | | | Date | | + +--------+ + | Medication Refill | 11/12/ | | | | 2017 | | + +--------+ + Encounter Details +--------+--------+ + + + | Date | Type | Department | Care Team | Description | +--------+--------+ + + + | 11/12/ | Refill | [facility] [place] | Henok Luther MD | Medication Refill | | 2017 | | OTOLARYNGOLOGY [address] | [address] [place] [address] | | | | | [facility] [address] | [address] [place] | | | | | [place] | [address] | | | | | [address] | | | | | | [phone] | | | +--------+--------+ + + + [...] this encounter Miscellaneous Notes Telephone Encounter - Domenica Meredith RN - 11/18/2017 11:43 AM PDTCalled into Nitin ferrari. documented in this encounter Plan of Treatment +--------+ + + + + | Date | Type | Specialty | Care Team | Description | +--------+ + + + + | 01/17/ | Appointment | Radiology | Bill Arevalo DNP | | | 2019 | | | [address] | | | | | | [place] | | | | | | [address] | | | | | | | | +--------+ + + + + | 01/17/ | Office | Vascular Surgery | Bill Arevalo DNP | | | 2019 | Visit | | [address] | | | | | | [place] | | | | | | [address] | | | | | | | | +--------+ + + + + | 05/22/ | Office | Nephrology | Mariana Cortez, | | | 2020 | Visit | | MD [address] | | | | | | [address] [place] | | | | | | [place] [address] | | | | | | [phone] | | | | | | | [...]
--- OUTSIDE RECORDS SUMMARY | ~2019-11-09 | XMS | Encounter Summary ---
Demographics + + + | Address | [address] | | | [place] [address] | + + + | Home Phone | | + + + | Preferred Language | Unknown | + + + | Marital Status | Single | + + + | Jain Affiliation | Unknown | + + + [...] Team Providers + +------+ + | Care Addressograph Operator Name | Role | Phone | + +------+ + PCP | Unavailable | + +------+ + Encounter Details +--------+ + + + + | Date | Type | Department | Care Team | Description | +--------+ + + + + | 09/16/ | Abstract | [facility] [place] | Mariana Cortez W, | | | 2012 | | NEPHROLOGY [address] | MD [address] | | | | | [address] | [address] [place] | | | | | [place], [place] | [place] [address] | | | | | [address] | [phone] | | | | | [phone] | | | +--------+ + + + [...] + + + | Blood Pressure | 143/93 | 09/14/2012 3:03 PM | | | | | PDT | | + + + + + | Pulse | - | - | | + [...] + + + + | Weight | 89.8 kg (198 lb) | 09/14/2012 3:03 PM | | | | | PDT | | + + + + + | Height | 160 cm (5' 3") | 09/14/2012 3:03 PM | | | | | PDT | | + + + + + | Body Mass Index | 35.07 | 09/14/2012 3:03 PM | | | | | PDT | | + + + + + documented in this encounter Plan of Treatment +--------+ + + + + | Date | Type | Specialty | Care Team | Description | +--------+ + + + + | 01/17/ | Appointment | Radiology | Bill Arevalo DNP | | | 2020 | | | [address] | | | | | | [place] | | | | | | [address] | | | | | | | | +--------+ + + + + | 01/17/ | Office | Vascular Surgery | Bill Arevalo DNP | | | 2019 | Visit | | [address] | | | | | | [address] [address] [place] | | | | | | [address] | | | | | | | | +--------+ + + + + | 05/22/ | Office | Nephrology | Mariana Cortez, | | | 2020 | Visit | | [address] | | | | | | [address] [place] | | | | | | [place] [address] | | | | | | [phone] | | | | | | | | +--------+ + + + + documented as of this encounter Visit Diagnoses Not on filedocumented in this encounter
--- OUTSIDE RECORDS SUMMARY | ~2019-11-09 | XMS | Encounter Summary ---
Demographics + + + | Address | [address] | | | [place] [address] | + + + | Home Phone [...] Providers + +------+ + | Care Foam Machine Operator Name | Role | Phone [...] | | | | to pollen | [place] [address] | [address] Phone: | | | | | Allergic | Phone: | [phone] | | | | | rhinitis due | [phone] | Fax: | | | | | to dust | Fax: | [phone] | | | | | Mild | [phone] | | | | | | intermittent [...] | +--------+ + + + + | 09/02/ | Clinical | [facility] | Henok Luther MD | Extrinsic asthma, | | 2019 | Support | OTOLARYNGOLOGY [address] | [address] | unspecified asthma | | | | [address] | [address] [place] | severity, | | | | [place] | [address] | unspecified whether | | | | [address] | | complicated, | | | | [phone] | | unspecified whether | | | [...] encounter Progress Notes Domenica Meredith RN - 09/02/2018 4:00 PM PDTPatient presents with epi-pen & inhaler. No ac tive wheezing or cough associated with asthma today. Denies delayed reaction from previous a llergy injection. No fever or allergy related rash. No recent heavy exposure to allergens. N o plans for strenuous exercise immediately before or after injection today.Electronically si gned by Domenica Meredith RN at 09/02/2018 4:10 PM PDTdocumented in this encounter Plan of [...] [place] | | | | | | [address] | | | | | | | | +--------+ + + + + | 05/22/ | Office | Nephrology | Mariana Cortez, | | | 2020 | Visit | | MD [address] | | | | | | [address] [place] | | | | | | [place] [address] | | | | | | [phone] | | | | | | | [...]
--- OUTSIDE RECORDS SUMMARY | ~2019-11-09 | XMS | Encounter Summary ---
Demographics + + + | Address | [address] | | | [place] [address] | + + + | Home Phone [...] Team Providers + +------+ + | Care Vision Specialist Name | Role | Phone | + +------+ + | Mehrdad Avalos MD | PCP | | + +------+ + Reason for Visit + + + | Reason | Comments | + + + | Follow-up | Radha Johnsono | + + + Encounter Details +--------+---------+ + + + | Date | Type | Department | Care Team | Description | +--------+---------+ + + + | 10/26/ | Office | [facility] | Rosa Mclean | Osteomyelitis of | | 2020 | Visit | INFECTIOUS DISEASE | Adrianna Vincent MD | right foot, | | | | [address] | [address] | unspecified type | | | | [place], [place] | [place] [address] | ([facility]) (Primary Dx); | | | | [address] | [phone] | Type 2 diabetes | | | | [phone] | | mellitus with stage | | | | | | 3 chronic kidney | | | | | | disease, without | | | | | | long-term current | | | | | | use of insulin (HCC) | +--------+---------+ + + + [...] + + + | Blood Pressure | 129/81 | 10/27/2019 3:29 PM | | | | | PDT | | + + + + + | Pulse | 100 | 10/27/2019 3:29 PM | | | | | PDT | | + + + + + | Temperature | 37.1 C (98.7 F) | 10/27/2019 3:29 PM | | | | | PDT | | + + + + + | Respiratory Rate | 16 | 10/27/2019 3:29 PM | | | | | PDT | | + + + + + | Oxygen Saturation | 100% | 10/27/2019 3:29 PM | | | | | PDT | | + + + + + | Inhaled Oxygen | - | - | | | Concentration | | | | + + + + + | Weight | 95.3 kg (210 lb) | 10/27/2019 3:29 PM | | | | | PDT | | + + + + + | Height | 160 cm (5' 3") | 10/27/2019 3:29 PM | | | | | PDT | | + + + + + | Body Mass Index | 37.2 | 10/27/2019 3:29 PM | | | | | PDT [...] + + documented as of this encounter Patient Instructions Patient Instructions Rosa Mclean MD - 10/27/2019 3:20 PM PDTContinhanh james care Continue excellent lifestyle changes Follow up with ID as neededElectronically signed by Rosa Mclean MD at 10/26 3:41 PM PDT documented in this encounter Progress Notes Rosa Mclean MD - 10/27/2019 3:20 PM PDTFormatting of this note might be d ifferent from the original. [facility] Service: Infectious Diseases Outpatient Follow Up Note CHIEF COMPLAINT Follow up on right foot osteomyelitis Briefly: From Dr. Palma's note on 08/31/19 The patient presented to our clinic referred by Dr. Cespedes from podiatry. The patient was s een there for management of diabetic foot infection, foot ulcer, osteomyelitis of the fifth toe and also fifth metatarsal. She is a status post surgical debridement on July 28, 2019. The patient had previous management as an outpatient with oral antibiotics. She had also outpatient cultures on that showed group B streptococcus, Staphylococcus aureus MSSA, a s well as Serratia marcescens. Prior to that on June 13, 2019 she had evidence of Staphyloco ccus aureus MSSA on a previous culture. The patient was started on IV antibiotic therapy with vancomycin and levofloxacin by Dr. Noemi john. She has a PICC line in place. Her most recent labs showed creatinine 1.14. She has diagnosis of chronic kidney disease also. The patient had normal electrolytes, mild eleva tion white cell count of 11.5, vancomycin level 15.3 on July 28, 2019. The patient was referred to clinic for management of antibiotic therapy. HISTORY OF PRESENT ILLNESS The patient is a 49 y.o.-year-old female presenting today for follow up. Patient was last seen in ID clinic on September 13, 2019. At that time, she had completed 6 weeks of IV ertapene m. The recommendation at that time was to have vascular studies completed and to follow-up with ID in 1 month. Review of chart shows that on October 03, she underwent open harvest of right great saphenou s vein, right proximal anterior tibial artery to dorsalis pedis artery bypass using R SVG. She was discharged home on October 06, 2019. He was seen in follow-up on October 19 by vas cular clinic's notes stated that half of her alejandro have been removed during that time and also prior to this appointment with the rest of the alejandro removed. Wound check was done a t that time with pictures on the media tab. PAST MEDICAL HISTORY Patient Active Problem List [...] GI bleeding GAVE (gastric antral vascular ectasia) PAD (peripheral artery disease) PAST SURGICAL HISTORY Past Surgical History: Procedure Laterality Date ANGIOGRAM 09/28/2019 FEMORAL-POPLITEAL BYPASS GRAFT Right 10/04/2019 Procedure: BYPASS GRAFT Popliteal to tibial bypass; Surgeon: Avel Upton MD; Location : [facility] MAIN OR FOOT SURGERY Right 2019 NASAL SEPTUM SURGERY Bilateral 02/24/2017 Procedure: Septoplasty, Inferior Turbinoplasty; Surgeon: Henok Luther MD; Location: [facility] MAIN OR UPPER GASTROINTESTINAL ENDOSCOPY N/A 08/18/2019 Procedure: EGD; Surgeon: Stepan Magdaleno MD; Location: [facility] SOCIAL HISTORY Social History Socioeconomic History Marital status: Single Spouse name: Not on file Number of children: 0 Years of education: 13 Highest education level: Not on file Occupational History Employer: OTHER Comment: [employer] [facility] [place]eds Financial resource strain: Not on file Food insecurity Worry: Not on file Inability: Not on file Transportation needs Medical: Not on file Non-medical: Not on file Tobacco Use Smoking status: Former Smoker Packs/day: 0.25 Years: 20.00 Pack years: 5.00 Types: Cigarettes Quit date: 09/23/2012 Years since quittin.0 Smokeless tobacco: Never Used Substance and Sexual Activity Alcohol use: Not Currently Alcohol/week: 1.0 standard drinks Types: 1 Standard drinks or equivalent per week Comment: 1 a month Drug use: No Sexual activity: Not on file Lifestyle Physical activity Days per week: Not on file Minutes per session: Not on file Stress: Not on file Relationships Social connections Talks on phone: Not on file Gets together: Not on file Attends zoroastrian service: Not on file Active member of [...] Social History Narrative Lives in house in [place] alone. FAM. HISTORY Family History Problem Relation Age of Onset Hypertension Father Stomach cancer Mother 60 Diabetes Other Diabetes Sister Hypertension Sister Diabetes Sister Hypertension Sister Diabetes Sister Hypertension Sister Hypertension Sister Malig hypertherm Neg Hx MEDICATIONS Current Outpatient Medications: albuterol 90 mcg/puff inhaler, Inhale 2 puffs into the lungs every 6 hours as needed., Disp: , Rfl: Alcohol Swabs 70 % PADS, by Does not apply route., Disp: , Rfl: ascorbic acid (VITAMIN C) 500 mg tablet, Take 500 mg by mouth Daily., Disp: , Rfl: aspirin 81 mg chewable tablet, Chew and swallow 1 tablet Daily., Disp: 30 tablet, Rfl: 11 B-D UF III MINI PEN NEEDLES 31G X 5 MM [facility], , Disp: , Rfl: CROW CONTOUR TEST [...] mcg by mouth Daily., Disp: , Rfl: docusate sodium (COLACE) 100 mg capsule, Take 1 capsule by mouth Twice daily as neede d for Constipation., Disp: 60 capsule, Rfl: 0 EPIPEN 2-IGNACIO 0.3 MG/0.3ML injection, Inject 0.3 [...] mg tablet, Take 10 mg by mouth 2 times daily ., Disp: , Rfl: HYDROcodone-acetaminophen (NORCO) 10-325 mg per tablet, Take 1 tablet by mouth every 4 hours as needed for Pain., Disp: 40 tablet, Rfl: 0 ipratropium (ATROVENT) 0.06% nasal spray, as needed ., Disp: , Rfl: Magnesium 400 MG CAPS, Take 400 mg by mouth Daily., Disp: , Rfl: metoprolol succinate (TOPROL-XL) 25 mg 24 hr tablet, Take 25 mg by mouth Daily., Disp: , Rfl: pantoprazole (PROTONIX) 40 mg tablet, Take 40 mg by mouth every morning (before breakf ast)., Disp: , Rfl: rosuvastatin (CRESTOR) 20 mg tablet, Take 20 mg by mouth nightly., Disp: , Rfl: SEMAGLUTIDE, 1 MG/DOSE, SC, Inject 1 mg under the skin Once a week., Disp: , Rfl: sodium bicarbonate 650 mg tablet, Take 1 tablet by mouth Daily., Disp: 90 tablet, Rfl: 3 TechLite Lancets MISC, , Disp: , Rfl: Allergies Allergen Reactions Furosemide Swelling REVIEW OF SYSTEMS Negative except for pertinent items noted in HPI. PHYSICAL EXAM Vital Signs: BP 129/81 | Pulse 100 | Temp 37.1 C (98.7 F) (Temporal) | Resp 16 | Ht 1.6 m (5' 3" ) | Wt 95.3 kg (210 lb) | SpO2 100% | BMI 37.20 kg/m General Appearance: HEENT: Alert, cooperative, no distress Head normocephalic and atraumatic EEOMI; no scleral icterus Lungs: Clear to auscultation bilaterally, respirations unlabored Heart:: Regular rate and rhythm, S1 and S2 normal, no rub or gallop Neuro: Attends appropriately; no CN deficits Extremities: Right foot wrapped prior to this appointment; see pictures in media tab. REVIEW OF LABS: All labs were reviewed. ASSESSMENT AND RECOMMENDATIONS The patient is a 49 y.o.-year-old female with the following problems: Lowella was seen today for follow-up. Diagnoses and all orders for this visit: Osteomyelitis of right foot, unspecified type (HCC) Type 2 diabetes mellitus with stage 3 chronic kidney disease, without long-term current use of insulin (HCC) Patient completed 6 weeks of IV ertapenem in September In the interim, she has had revascularization with excellent wound healing There are no acute infectious diseases issues She can follow-up with us as needed Thank you for allowing us to participate in this patient's care. A return visit has been re quested/scheduled in PRN for routine clinical follow up. The patient was instructed to call our clinic for any questions, and for any concerns regarding worsening symptoms, including f pierre/chills/side effects from medication, especially diarrhea. We will see the patient soon er than the recommended follow up date, if with any worsening of symptoms. Dictation software, [employer], used which may contain error for similar sounding words even af ter review. Personal communication requested for any clarification. Portions of this chart may have been copied from previous notes for continuity of care purp ty Mclean MD Infectious Diseases [facility] [address] [place] [address] O: F: 10/27/2019 documente d in this encounter Plan of Treatment +--------+ + + + + | Date | Type | Specialty | Care Team | Description | +--------+ + + + + | 01/17/ | Appointment | Radiology | Bill Arevalo DNP | | | 2019 | | | [address] | | | | | | [place], [place] | | | | | | [address] | | | | | | | | +--------+ + + + + | 01/17/ | Office | Vascular Surgery | Bill Arevalo, DNP | | | 2019 | Visit | | [address] | | | | | | [address] [address] [place] | | | | | | [address] | | | | | | | | +--------+ + + + + | 05/22/ | Office | Nephrology | Mariana Cortez, | | | 2020 | Visit | | MD [address] | | | | | | [address] [place] | | | | | | [place] [address] | | | | | | [phone] | | | | | | | | +--------+ + + + + documented as of this encounter Visit Diagnoses + + | Diagnosis | + + | Osteomyelitis of right foot, unspecified type (HCC) - Primary | + + | Type 2 diabetes mellitus with stage 3 chronic kidney disease, without long-term | | current use of insulin (HCC) | + + documented in this encounter
--- OUTSIDE RECORDS SUMMARY | ~2019-11-09 | XMS | Encounter Summary ---
Demographics + + + | Address | [address] | | | [place] [address] | + + + | Home Phone [...] Author + + + | Author | [facility] | | | and [place] | + + + | Organization | [facility] | | | [...] Team Providers + +------+ + | Care Errand Runner Name | Role | Phone | + [...] | | | rhinitis due | [place] [address] | [address] Phone: | | | | | to animal | Phone: | [phone] | | | | | (cat) (dog) | [phone] | Fax: | | | | | hair and | Fax: | [phone] | | | | | dander | [phone] | | | | | | Allergic [...] | +--------+ + + + + | 01/01/ | Clinical | [facility] [place] | Henok Luther MD | Non-seasonal | | 2016 | Support | OTOLARYNGOLOGY [address] | [address] | allergic rhinitis | | | | [address] | [address] [place] | due to pollen | | | | [place] | [address] | (Primary Dx); | | | | [address] | | Allergic rhinitis | | | | [phone] | | due to animal (cat) | [...] encounter Progress Notes Narda Lay RN - 01/02/2016 2:10 PM PSTPatient presents with epi-pen. Denies delayed [...] [place] | | | | | | [address] | | | | | | | | +--------+ + + + + | 01/17/ | Office | Vascular Surgery | Bill Arevalo DNP | | | 2019 | Visit | | [address] | | | | | | [place] | | | | | | [address] | | | | | | | | +--------+ + + + + | 05/22/ | Office | Nephrology | Misti Cortezjoy Hua, | | | 2020 | Visit | | [address] | | | | | | [address] [place] | | | | | | [place] [address] | | | | | | [phone] | | | | | | | [...]
--- OUTSIDE RECORDS SUMMARY | ~2019-11-09 | XMS | Encounter Summary ---
Demographics + + + | Address | [address] | | | [place] [address] | + + + | Home Phone [...] Team Providers + +------+ + | Care Public Health Informatician Name | Role | Phone | + [...] | | | | severity, | [place] [address] | [place], [place] | | | | | unspecified | Phone: | [address] | | | | | whether | [phone] | Phone: | | | | | complicated, | Fax: | [phone] | | | | | unspecified | [phone] | Fax: | | | | | whether | | [phone] | | | | | persistent | [...] + + + + | 11/11/ | Clinical | [facility] [place] | Henok Luther MD | Extrinsic asthma, | | 2019 | Support | OTOLARYNGOLOGY [address] | [address] | unspecified asthma | | | | [address] | [address] [place], [place] | severity, | | | | [place], [place] | [address] | unspecified whether | | | | [address] | | complicated, | | | | [phone] | | unspecified whether | | | [...] as of this encounter Progress Notes Domenica Meredith, ZULAY - 11/11/2018 2:15 PM PDTPatient presents with epi-pen & inhaler. No ac tive wheezing or cough associated with asthma today. Denies delayed reaction from previous a llergy injection. No fever or allergy related rash. No recent heavy exposure to allergens. N o plans for strenuous exercise immediately before or after injection today.Electronically si gned by Domenica Meredith RN at 11/11/2018 2:20 PM PDTdocumented in this encounter Plan of [...] [place] | | | | | | [id number] | | | | | | | | +--------+ + + + + | 01/17/ | Office | Vascular Surgery | Bill Arevalo DNP | | | 2019 | Visit | | [address] | | | | | | [place] | | | | | | [address] | | | | | | | | +--------+ + + + + | 05/22/ | Office | Nephrology | Mariana Cortez, | | | 2020 | Visit | | [address] | | | | | | [address] [place] | | | | | | [place] [address] | | | | | | [phone] | | | | | | | [...]
--- OUTSIDE RECORDS SUMMARY | ~2019-11-09 | XMS | Encounter Summary ---
Demographics + + + | Address | [address] | | | [place] [address] | + + + | Home Phone [...] Providers + +------+ + | Care Gas Meter Mechanic Name | Role | Phone | + +------+ + | Mehrdad Avalos MD | PCP | | + +------+ + Encounter Details +--------+ + + + + | Date | Type | Department | Care Team | Description | +--------+ + + + + | 05/10/ | Abstract | [facility] [place] | Fackenthall, | | | 2019 | | NEPHROLOGY [address] | [address] | | | | | [address] | [address] | | | | | [place], [place] | [address] [place] | | | | | [address] | [address] | | | | | [phone] | | | +--------+ + + + [...] [place] | | | | | | [address] | | | | | | | | +--------+ + + + + | 01/17/ | Office | Vascular Surgery | Bill Arevalo DNP | | | 2019 | Visit | | [address] | | | | | | [place] | | | | | | [address] | | | | | | | | +--------+ + + + + | 05/22/ | Office | Nephrology | Mariana Cortez, | | | 2020 | Visit | | MD [address] | | | | | | [address] [place] | | | | | | [place] [address] | | | | | | [phone] | | | | | | | | +--------+ + + + + documented as of this encounter Procedures + +--------+ + + + | Procedure Name | Priori | Date/Time | Associated Diagnosis | Comments | | | ty | | | | + +--------+ + + + | EXTERNAL LAB: LEVI | Routin | 05/09/2019 | | Results [...] | EXTERNAL LAB: CARBON | Routin | 05/09/2019 | | Results [...] | EXTERNAL LAB: SODIUM | Routin | 05/09/2019 | | Results [...] | EXTERNAL LAB: ANNALISE, | Routin | 05/09/2019 | | Results [...] | EXTERNAL LAB: CBC | Routin | 05/09/2019 | | Results for this | | | e | | | procedure are in the | | | | | | results section. | + +--------+ + + + | EXTERNAL LAB: EGFR | Routin | 05/09/2019 | | Results [...] | + +--------+ + + + | URINALYSIS, | Routin | 05/09/2019 | | Results for this | | MICROSCOPIC ONLY | e | | | procedure are [...] + + + | PTH Intact, | 44.15 | 12 - 88 | | | | External | | | | | + +-------+ + + + + + | Specimen | + + | | + + External Lab: Protein/Creatinine Ratio (05/09/2019) + + + + + + | Component | Value | Ref Range | Performed | Pathologist | | | | | At | Signature | + + + + + + | Protein/Cre | 0.863 (A) | 0.2 | | | | atinine | | | | | | Ratio, | | | | | | External | | | | | + + + + + + + + | Specimen | + + | | + + Urinalysis, Microscopic Only (05/09/2019) + + + + + + | Component | Value | Ref Range | Performed | Pathologist | | | | | At | Signature | + + + + + + | WBC UA | 7 | /HPF | | | + + + + + + | Color, UA | yellow | | | | + + + + + + | Clarity, | Clear | | | | | Urine | | | | | + + + + + + | Bacteria, | 1+ | | | | | UA | | | | | + + + + + + | Squamous | 0-2 | 0 - 2 /LPF | | [...] Urine | + + External Lab: BUN (05/09/2019) + +-------+ + + + | Component | Value | Ref Range | Performed | Pathologist | | | | | At | Signature | + +-------+ + + + | BUN, | 39 | | EXTERNAL | | | External | | | LAB | | + +-------+ + + + + +---------+ + + | Performing | Address | City/State/Zipcode | Phone Number | | Organization | | | | + +---------+ + + | EXTERNAL LAB | | | | + +---------+ + + External Lab: Glucose (05/09/2019) + +-------+ + + + | Component | Value | Ref Range | Performed | Pathologist | | | | | At | Signature | + +-------+ + + + | Glucose, | 170 | | EXTERNAL | | | External | | | LAB | | + +-------+ + + + + +---------+ + + | Performing | Address | City/State/Zipcode | Phone Number | | Organization | | | | + +---------+ + + | EXTERNAL LAB | | | | + +---------+ + + External Lab: Albumin (05/09/2019) + +-------+ + + + | Component | Value | Ref Range | Performed | Pathologist | | | | | At | Signature | + +-------+ + + + | Albumin, | 3.9 | | EXTERNAL | | | External | | | LAB | | + +-------+ + + + + +---------+ + + | Performing | Address | City/State/Zipcode | Phone Number | | Organization | | | | + +---------+ + + | EXTERNAL LAB | | | | + +---------+ + + External Lab: Phosphorus (05/09/2019) + +-------+ + + + | Component | Value | Ref Range | Performed | Pathologist | | | | | At | Signature | + +-------+ + + + | Phosphorus, | 3.5 | | EXTERNAL | | | External | | | LAB | | + +-------+ + + + + +---------+ + + | Performing | Address | City/State/Zipcode | Phone Number | | Organization | | | | + +---------+ + + | EXTERNAL LAB | | | | + +---------+ + + External Lab: Calcium (05/09/2019) + +-------+ + + + | [...] +---------+ + + External Lab: Carbon Dioxide (05/09/2019) + +-------+ + + + | Component | Value | Ref Range | Performed | Pathologist | | | | | At | Signature | + +-------+ + + + | Carbon | 24 | | EXTERNAL | | | Dioxide, | | | LAB | | | External | | | | | + +-------+ + + + + +---------+ + + | Performing | Address | City/State/Zipcode | Phone Number | | Organization | | | | + +---------+ + + | EXTERNAL LAB | | | | + +---------+ + + External Lab: Chloride (05/09/2019) + +-------+ + + + | Component | Value | Ref Range | Performed | Pathologist | | | | | At | Signature | + +-------+ + + + | Chloride, | 100 | | EXTERNAL | | | External | | | LAB | | + +-------+ + + + + +---------+ + + | Performing | Address | City/State/Zipcode | Phone Number | | Organization | | | | + +---------+ + + | EXTERNAL LAB | | | | + +---------+ + + External Lab: Potassium (05/09/2019) + +-------+ + + + | Component | Value | Ref Range | Performed | Pathologist | | | | | At | Signature | + +-------+ + + + | Potassium, | 4.2 | | EXTERNAL | | | External | | | LAB | | + +-------+ + + + + +---------+ + + | Performing | Address | City/State/Zipcode | Phone Number | | Organization | | | | + +---------+ + + | EXTERNAL LAB | | | | + +---------+ + + External Lab: Sodium (05/09/2019) + +-------+ + + + | Component | Value | Ref Range | Performed | Pathologist | | | | | At | Signature | + +-------+ + + + | Sodium, | 137 | | EXTERNAL | | | External | | | LAB | | + +-------+ + + + + +---------+ + + | Performing | Address | City/State/Zipcode | Phone Number | | Organization | | | | + +---------+ + + | EXTERNAL LAB | | | | + +---------+ + + External Lab: Urinalysis (05/09/2019) + + + + + + | Component | Value | Ref Range | Performed | Pathologist | | | | | At | Signature | + + + + + + | UA Blood, | negative | | EXTERNAL | | | External | | | LAB | | + + + + + + | UA Glucose, | negative | | EXTERNAL | | | External | | | LAB | | + + + + + + | UA Ketones, | 1+ | | EXTERNAL | | | External | | | LAB | | + + + + + + | UA Ph, | 5.0 | | EXTERNAL | | | External | | | LAB | | + + + + + + | UA | negative | | EXTERNAL | | | Proteins, | | | LAB | | | External | | | | | + + + + + + | UA RBC, | 0 | | EXTERNAL | | | External | | | LAB | | + + + + + + | UA Specific | 1.025 | | EXTERNAL | | | [place], | | | LAB | | | External | | | | | + + + + + + | UA | 2+ | | EXTERNAL | | | Leukocyte [...] + +---------+ + + External Lab: CBC (05/09/2019) + +-------+ + + + | Component | Value | Ref Range | Performed | Pathologist | | | | | At | Signature | + +-------+ + + + | WBC, | 6.63 | | EXTERNAL | | | External | | | LAB | | + +-------+ + + + | HGB, | 14.68 | | EXTERNAL | | | External | | | LAB | | + +-------+ + + + | HCT, | 43.78 | | EXTERNAL | | | External | | | LAB | | + +-------+ + + + | PLT, | 246 | | EXTERNAL | | | External | | | LAB | | + +-------+ + + + | RBC, | 4.51 | | EXTERNAL | | | External | | | LAB | | + +-------+ + + + | MCV, | 97 | | EXTERNAL | | | External | | | LAB | | + +-------+ + + + | RDW, | 13.67 | | EXTERNAL | | | External | | | LAB | | + +-------+ + + + + +---------+ + + | Performing | Address | City/State/Zipcode | Phone Number | | Organization | | | | + +---------+ + + | EXTERNAL LAB | | | | + +---------+ + + External Lab: eGFR (05/09/2019) + +-------+ + + + | Component | Value | Ref Range | Performed | Pathologist | | | | | At | Signature | + +-------+ + + + | eGFR, | 46 | | EXTERNAL | | | External [...] + +---------+ + + External Lab: Creatinine (05/09/2019) + +-------+ + + + | Component | Value | Ref Range | Performed | Pathologist | | | | | At | Signature | + +-------+ + + + | Creatinine, | 1.3 | | EXTERNAL | | | External [...]
--- OUTSIDE RECORDS SUMMARY | ~2019-11-09 | XMS | Encounter Summary ---
Demographics + + + | Address | [address] | | | [place] [address] | + + + | Home Phone [...] Providers + +------+ + | Care Advertising Assistant Name | Role | Phone | + +------+ + PCP | Unavailable | + +------+ + Reason for Visit +---------+--------+ + | Reason | Onset | Comments | | | Date | | +---------+--------+ + | Results | 10/28/ | | | | 2012 | | +---------+--------+ + Encounter Details +--------+ + + + + | Date | Type | Department | Care Team | Description | +--------+ + + + + | 10/28/ | Telephone | [facility] | Mariana Cortez W, | Results | | 2012 | | NEPHROLOGY [address] | MD [address] | | | | | [address] | [address] [facility] | | | | | [place] | [place] [address] | | | | | [address] | [phone] | | | | | [phone] | | | +--------+ + + + [...] Telephone Encounter - Ada Serrano RN - 10/28/2012 3:50 PM PDTReceived external labs for patient dated 10/27/12 showing the patient's potassium level at 5.5 meq/L. Patient was ca lled and asked if she ever took the prescribed kayaxelate 15 gm QDAY x 3 days. Patient stated that she just picked up the prescription yesterday and took the first dose t his morning.Dr. Cortez was notified. Per Dr. Cortez, patient was instructed not to take the ad ditional kayexalate doses. Patient was informed that she would need to be seen sooner than o rigmary carmen planned, Dr. Cortez would like to see her early November instead of January. Patien t to complete lab work one week before follow up appointment in November. Electronically sig mannie by Ada Serrano RN at 10/28/2012 4:04 PM PDTdocumented in this encounter Plan of [...] [place] | | | | | | [id number] | | | | | | | | +--------+ + + + + | 01/17/ | Office | Vascular Surgery | Bill Arevalo DNP | | | 2019 | Visit | | [address] | | | | | | [place] | | | | | | [address] | | | | | | | | +--------+ + + + + | 05/22/ | Office | Nephrology | Mariana Cortez, | | | 2020 | Visit | | [address] | | | | | | [address] [place] | | | | | | [place] [address] | | | | | | [phone] | | | | | | | | +--------+ + + + + documented as of this encounter Visit Diagnoses Not on filedocumented in this encounter"
--- OUTSIDE RECORDS SUMMARY | ~2019-11-09 | XMS | Encounter Summary ---
Demographics + + + | Address | [address] | | | [place] [address] | + + + | Home Phone [...] Team Providers + +------+ + | Care Resin Mixer Name | Role | Phone | + +------+ + | Mehrdad Avalos MD | PCP | | + +------+ + Reason for Visit + +--------+ + | Reason | Onset | Comments | | | Date | | + +--------+ + | Procedure | 09/14/ | Sign case | | | 2020 | | + +--------+ + Encounter Details +--------+ + + + + | Date | Type | Department | Care Team | Description | +--------+ + + + + | 09/14/ | Telephone | [facility] | Stepan Magdaleno MD | Procedure (Sign | | 2019 | | GASTROENTEROLOGY | [address] | case) | | | | [address] | [place], [place] | | | | | [place], [place] | [address] | | | | | [address] | [phone] | | | | | [phone] | | | +--------+ + + + [...] Miscellaneous Notes Telephone Encounter - Huy Castro Research Software Engineer - 09/20/2019 8:34 AM PDTCOVD la b requisition was faxed to [facility] with a number to fax results back to us. Delbert y signed by Stacey Serrato at 09/20/2019 8:34 AM PDTTelephone Encounte r - Huy Castro Research Software Engineer - 09/15/2019 2:07 PM PDTReturned call to patient. Patient is now scheduled for her repeat proceudre on 10/04/[address] Hardwick. Patient stated she would like to have preoperative COVID test done at [facility]. I informed the patient that per our physician practice consultant, patient can have the test done elsewhere as long as its a rapid test and we still get the results with the required timeframe. Elaine chambers was currently at the clinic and was able to confirm with the nurse that it was a rapid te st and that patient could have it completed within the 72 hours prior to the start of the pr ocedure. Patient provided me with fax number to [facility] as [phone] to fax COVID requ isition. Patient verified home address and agreed to receive instructions via US mail. Dr. Hardwick, Case is attached, can you please sign case and COVID order so I can fax to [facility]? Elec tronically signed by Huy Castro Research Software Engineer at 09/15/2019 2:15 PM PDTTelephone Encounter - Dalia Toledo - 09/15/2019 1:50 PM PDTHeather, is calling regarding Procedure and would like a call back. Additional Call Details: Caller stated patient was told she needs to have repeat endoscopy in 4 weeks of last procedure. She stated patient has not received a call to get it schedule d. She would like the office to call patient If this is a symptom based call, was patient offered triage? Not Applicable If this is a symptom based call and you were unable to immediately transfer the call to a marcos sharma maintenance porter was caller made aware that if at [...] [place] | | | | | | [id number] | | | | | | | | +--------+ + + + + | 01/17/ | Office | Vascular Surgery | Bill Arevalo DNP | | | 2019 | Visit | | [address] | | | | | | [place] | | | | | | [address] | | | | | | | | +--------+ + + + + | 05/22/ | Office | Nephrology | Mariana Cortez, | | | 2020 | Visit | | MD [address] | | | | | | [address] [place] | | | | | | [place] [address] | | | | | | [phone] | | | | | | | | +--------+ + + + + + + +--------+ + + | Name | Type | Priori | Associated Diagnoses | Order Schedule | | | | ty | | | + + +--------+ + + | Coronavirus | Microbiolog | Routin | GAVE (gastric | 1 Occurrences | | (COVID-19) NAAT | y | e | antral vascular | starting 09/16/2019 | | | | | ectasia) | until 09/14/2020 | + + +--------+ + + documented as of this encounter Visit Diagnoses + + | Diagnosis | + + | 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
--- OUTSIDE RECORDS SUMMARY | ~2019-11-09 | XMS | Encounter Summary ---
Demographics + + + | Address | [address] | | | [place] [address] | + + + | Home Phone [...] Author + + + | Author | [facility] | | | and [place] | + + + | Organization | [facility] | | [...] Team Providers + +------+ + | Care Co Teacher Name | Role | Phone | + +------+ + | Ronel Jacobson PA-C | PCP | | + +------+ + Reason for Visit + +--------+ + | Reason | Onset | Comments | | | Date | | + +--------+ + | Immunotherapy | 02/12/ | | | | 2016 | | + +--------+ + Encounter Details +--------+ + + + + | Date | Type | Department | Care Team | Description | +--------+ + + + + | 02/12/ | Telephone | [facility] | Henok Luther MD | Immunotherapy | | 2016 | | OTOLARYNGOLOGY [address] | [address] [place] [address] | | | | | [address] [facility] [address] | [address] [facility] [place] | | | | | [place] | [address] | | | | | [address] | | | | | | [phone] | | | +--------+ + + + [...] this encounter Miscellaneous Notes Telephone Encounter - Narda Lay RN - 06/04/2016 9:24 AM PDTAbdi luke Mcdowell at her next allergy injection. Closing encounter elephone Encounter - Modesta Benitez RN - 06/02/2016 11:41 AM ZULAY You returned call. She states [facility] will not be able to do allergy injections because, "they do not have any procedure or policies in place." She stat es she hasn't notified patient and requests that we call patient. elephone Encounter - Narda Lay RN - 05/29/2016 12:59 PM PDTCalled [facility] to follow-up, transferred to Krystyna murphy, family preservation caseworker for patient's PCP Ronel Jacobson. Left a message for him to return call t o further discuss process for injections to be transferred to be given at [facility] . elephone Encounter - Narda Lay RN - 05/28/2016 4:12 PM PDTTalked with patient regarding allergy injec tions. She would prefer to have them done in [place] if possible. I have not heard from P. Will call [facility] again. Electronically signed by Narda Lay RN at 05/28 4:13 PM PDTTelephone Encounter - Modesta Benitez RN - 03/13/2016 4:44 PM PST Talked with patient today and said I hadn't heard back from the [facility] nurse. Khari rubio states that Ronel Jacobson, PCP, will be calling to find out what all it would entail for them to do allergy injections at their clinic. elephone Encounter - Modesta Benitez RN - 7 9:01 AM PSTCalled and left a message requesting ZULAY Cornelius dimension stone quarry supervisor at [facility] to call regarding patient obtaining her allergy injections there. documented in this encounter Plan of Treatment +--------+ + + + + | Date | Type | Specialty | Care Team | Description | +--------+ + + + + | 01/17/ | Appointment | Radiology | Bill Arevalo, GEMMA | | | 2019 | | | [address] | | | | | | [place] | | | | | | [address] | | | | | | | | +--------+ + + + + | 01/17/ | Office | Vascular Surgery | Bill Arevalo DNP | | | 2019 | Visit | | [address] | | | | | | [place] | | | | | | [address] | | | | | | | | +--------+ + + + + | 05/22/ | Office | Nephrology | Mariana Cortez W, | | | 2020 | Visit | | [address] | | | | | | [address] [place] | | | | | | [place] [address] | | | | | | [phone] | | | | | | | | +--------+ + + + + documented as of this encounter Visit Diagnoses Not on filedocumented in this encounter
--- OUTSIDE RECORDS SUMMARY | ~2019-11-09 | XMS | Encounter Summary ---
Demographics + + + | Address | [address] | | | [place] [address] | + + + | Home Phone [...] Team Providers + +------+ + | Care Document Management Technician Name | Role | Phone | [...] | | | | severity, | [place] [address] | [address] Phone: | | | | | uncomplicate | Phone: | [phone] | | | | | d | [phone] | Fax: | | | | | Non-seasonal | Fax: | [phone] | | | | | allergic | [phone] | | | | | | rhinitis [...] | +--------+ + + + + | 07/09/ | Clinical | [facility] [place] | [place], | Non-seasonal | | 2017 | Support | OTOLARYNGOLOGY [address] | [address] | allergic rhinitis | | | | [address] | [address] | due to pollen | | | | [place] | [place] | (Primary Dx); | | | | [phone] | [id number] | Allergic rhinitis | | | | [phone] | | due to animal (cat) | [...] encounter Progress Notes Modesta Benitez RN - 07/09/2016 3:45 PM PDTPatient presents with epi-pen & inhaler . No active wheezing or cough associated with asthma today. Denies delayed reaction from pre vious allergy injection. No fever or allergy related rash. No recent heavy exposure to aller gens. No plans for strenuous exercise immediately before or after injection today.Electronic ally signed by Modesta Benitez RN at 07/09/2016 4:49 PM PDTdocumented in this encoun ter [...] [place] | | | | | | [address] | | | | | | | | +--------+ + + + + | 01/17/ | Office | Vascular Surgery | Bill Arevalo DNP | | 2019 | Visit | | [address] | | | | | | [place] | | | | | | [address] | | | | | | | | +--------+ + + + + | 05/22/ | Office | Nephrology | Dana Mariana Melita, | | | 2020 | Visit | | [address] | | | | | | [address] [place] | | | | | | [place] [address] | | | | | | [phone] | | | | | | | [...]
--- OUTSIDE RECORDS SUMMARY | ~2019-11-09 | XMS | Encounter Summary ---
Demographics + + + | Address | [address] | | | [place] [address] | + + + | Home Phone [...] Providers + +------+ + | Care Government Affairs Director Name | Role | Phone | [...] | +--------+ + + + + | 07/23/ | Clinical | [facility] [place] | Henok Luther MD | Non-seasonal | | 2017 | Support | OTOLARYNGOLOGY [address] | [address] | allergic rhinitis | | | | [address] [facility] [address] | [address] [place], [place] | due to pollen | | | | [place] | [address] | (Primary Dx); | | | | [address] | | Allergic rhinitis | | | | [phone] | | due to dust mite; | [...] encounter Progress Notes Narda Lay RN - 07/23/2017 3:45 PM PDTPatient presents with epi-pen & [...] [place] | | | | | | [address] | | | | | | | | +--------+ + + + + | 01/17/ | Office | Vascular Surgery | Bill Arevalo DNP | | | 2019 | Visit | | [address] | | | | | | [place] | | | | | | [address] | | | | | | | | +--------+ + + + + | 05/22/ | Office | Nephrology | Mariana Cortez, | | | 2020 | Visit | | [address] | | | | | | [address] [place] | | | | | | [place] [address] | | | | | | [phone] | | | | | | | [...]
--- OUTSIDE RECORDS SUMMARY | ~2019-11-09 | XMS | Encounter Summary ---
Demographics + + + | Address | [address] | | | [place] [address] | + + + | Home Phone [...] + + | Author | [facility] | | | and [place] | + + + | Organization | [facility] | | [...] Team Providers + +------+ + | Care Traveling Representative Name | Role | Phone | [...] | | | | severity, | [place] [address] | [place], [place] | | | | | unspecified | Phone: | [address] | | | | | whether | [phone] | Phone: | | | | | complicated, | Fax: | [phone] | | | | | unspecified | [phone] | Fax: | | | | | whether | | [phone] | | | | | persistent | [...] | +--------+ + + + + | 03/07/ | Clinical | [facility] [place] | Henok Luther MD | Extrinsic asthma, | | 2020 | Support | OTOLARYNGOLOGY [address] | [address] [place] | unspecified asthma | | | | [address] | [address] [place], [place] | severity, | | | | [place], [place] | [address] | unspecified whether | | | | [address] | | complicated, | | | | [phone] | | unspecified whether | | | [...] encounter Progress Notes Domenica Meredith RN - 03/07/2019 3:45 PM PSTFormatting of this note might [...] Mixed immunotherapy treatment vial for patient on 01/27/19. [facility]ATMENT SET [facility] Sapna Honeycuttman Weeds, Grass,Trees, Dust and Dander: 86 03/07/2019 Allergen Extract Amount/ml Dilution Lot # Expiration Date Ragweed Mix Pigweed 0.2 C [id number] 12/14/21 Kochia 0.2 C 017978 12/14/21 Humphrey's Quarter 0.2 C 369448 12/13/21 Luther Elder 0.2 C 094449 07/17/21 Vincentian Plantain 0.2 C 028918 12/13/21 False Ragweed 0.2 C 173337 12/14/21 [place] Thistle 0.2 C 216073 12/13/21 Sagebrush 0.2 C 704919 12/14/21 Sheep [place] Dandelion 0.2 C 296079 12/14/21 Atriplex Mix 0.2 C 272438 12/14/21 #7 Grass Mix 0.2 C 162571 04/11/20 Bermuda Grass 0.2 C [id number] 07/07/21 Sameer Grass 0.2 C 073548 12/14/21 [place]averas 0.2 C 906744 07/17/21 Big Stone Mix [place] 0.2 C 332506 12/13/21 Sugar Maple [place] 0.2 C 218251 12/13/21 Meade 0.2 C 135174 07/17/21 Spring Birch White Red [place] Mark Anthony 0.2 C 108385 12/14/21 Juniper 0.2 C 982319 07/03/21 Black [place] 0.2 C 361704 07/17/21 Mites, Farinae 0.1 C 287914 05/30/20 Mites, Ptero. 0.1 C 948334 12/28/19 Cat Hair 0.1 C 327716 04/04/20 Dog Epi. Horse Epi Total Allergens: 4.3 ml. Saline: 0.2 ml. Total Volume: 4.5 ml. Mixed immunotherapy treatment vial for patient on 01/27/19. TREATMENT SET [facility] Molds, Insects & Feathers: 88 03/07/2019 Allergen Extract Amount/ml Dilution Lot # Expiration Date Alternaria Aspergillus Cladosporium Penicillium Bipolaris Sorok. 0.1 C [id number] 07/13/20 Pullulans 0.1 C 519319 01/13/21 Mucor 0.1 C 781354 10/27/20 Phoma Rhodotorula 0.1 C 179909 12/20/20 Fusarium Paecilomyces Grain Smut 0.1 C 003628 01/18/22 Grass Smut 0.1 C 140157 01/13/21 Am. Cockroach 0.1 C 632328 03/30/21 Mixed Feathers 0.1 C 514889 12/14/21 Total Allergens: 0.8 mL Saline: 1.7 mL Total Volume: 2.5 mL d ocumented in this encounter Plan of Treatment +--------+ + + + + | Date | Type | Specialty | Care Team | Description | +--------+ + + + + | 01/17/ | Appointment | Radiology | Mickey, Bill, DNP | | | 2019 | | | [address] | | | | | | [place] | | | | | | [address] | | | | | | | | +--------+ + + + + | 01/17/ | Office | Vascular Surgery | Bill Arevalo DNP | | | 2019 | Visit | | [address] | | | | | | [place] | | | | | | [address] | | | | | | | | +--------+ + + + + | 05/22/ | Office | Nephrology | Mariana Cortez W, | | | 2020 | Visit | | [address] | | | | | | [address] [place] | | | | | | [place] [address] | | | | | | [phone] | | | | | | | | +--------+ + + + + +-------+ +--------+ + + | Name | Type | Priori | Associated Diagnoses | Order Schedule | | | | ty | | | +-------+ +--------+ + + | Vials | Procedures | Routin | Extrinsic asthma, | Ordered: 03/07/2019 | | | | e | unspecified [...]
--- OUTSIDE RECORDS SUMMARY | ~2019-11-09 | XMS | Encounter Summary ---
Demographics + + + | Address | [address] | | | [place] [address] | + + + | Home Phone | | + + + | Preferred Language | Unknown | + + + | Marital Status | Single | + + + | Buddhism Affiliation | Unknown | + + + [...] Team Providers + +------+ + | Care Upward Bound Director Name | Role | Phone | + +------+ + PCP | Unavailable | + +------+ + Encounter Details +--------+ + + + + | Date | Type | Department | Care Team | Description | +--------+ + + + + | 04/19/ | Orders Only | [facility] [place] | Mariana Cortez W, | CKD (chronic kidney | | 2014 | | NEPHROLOGY [address] | [address] | disease) stage 2, | | | | [address] | [address] [place] | GFR 60-89 ml/min | | | | [place] | [place] [address] | (Primary Dx); | | | | [address] | [phone] | Proteinuria; | | | | [phone] | | Hypertension | +--------+ + + + + Social [...] this encounter Progress Ada Rene RN - 04/19/2013 2:30 PM PDTLabs for nephrology appt on 05/17/13 sent to Isael Pavonronically signed by Ada Serrano RN at 04/19/2013 2:34 PM PDTdocumented in this encounter Plan of [...] [place] | | | | | | [address] | | | | | | | | +--------+ + + + + | 01/17/ | Office | Vascular Surgery | Bill Arevalo DNP | | | 2019 | Visit | | [address] | | | | | | [place] | | | | | | [address] | | | | | | | | +--------+ + + + + | 05/22/ | Office | Nephrology | Mariana Cortez, | | | 2020 | Visit | | [address] | | | | | | [address] [place] | | | | | | [place] [address] | | | | | | [phone] | | | | | | | | +--------+ + + + + documented as of this encounter Visit Diagnoses + + | Diagnosis | + + | CKD (chronic kidney disease) stage 2, GFR 60-89 ml/min - Primary Chronic kidney | | disease, Stage II (mild) | + + | Proteinuria | + + | Hypertension Unspecified essential hypertension | + + documented in this encounter"
--- OUTSIDE RECORDS SUMMARY | ~2019-11-09 | XMS | Encounter Summary ---
Demographics + + + | Address | [address] | | | [place] [address] | + + + | Home Phone [...] Team Providers + +------+ + | Care Performance Improvement Analyst Name | Role | Phone | [...] + + | 07/02/ | Clinical | [facility] [place] | Kole Soto | Extrinsic asthma, | | 2017 | Support | OTOLARYNGOLOGY [address] | MD Jeovany [address] | unspecified asthma | | | | [address] | [address] [place] | severity, | | | | [place], [place] | [place] [address] | unspecified whether | | | | [address] | [phone] | complicated, | | | | [phone] | | unspecified whether | | | [...] encounter Progress Notes Domenica Meredith RN - 07/02/2017 3:30 PM PDTPatient presents with epi-pen & inhaler. No ac tive wheezing or cough associated with asthma today. Denies delayed reaction from previous a llergy injection. No fever or allergy related rash. No recent heavy exposure to allergens. N o plans for strenuous exercise immediately before or after injection today.Electronically si gned by Domenica Meredith RN at 07/02/2017 4:00 PM PDTdocumented in this encounter Plan of [...] [place] | | | | | | [address] | | | | | | | | +--------+ + + + + | 01/17/ | Office | Vascular Surgery | Bill Arevalo DNP | | | 2019 | Visit | | [address] | | | | | | [place] | | | | | | [address] | | | | | | | | +--------+ + + + + | 05/22/ | Office | Nephrology | Mariana Cortez, | | | 2020 | Visit | | [address] | | | | | | [address] [place] | | | | | | [place] [address] | | | | | | [phone] | | | | | | | [...]
--- OUTSIDE RECORDS SUMMARY | ~2019-11-09 | XMS | Encounter Summary ---
Demographics + + + | Address | [address] | | | [place] [address] | + + + | Home Phone [...] Providers + +------+ + | Care Clinical Staff Anesthesiologist Name | Role | Phone | + [...] | | | | severity, | [place] [address] | [place], [place] | | | | | unspecified | Phone: | [phone] | | | | | whether | [phone] | Phone: | | | | | complicated, | Fax: | [phone] | | | | | unspecified | [phone] | Fax: | | | | | whether | | [phone] | | | | | persistent | [...] + + + + | 06/10/ | Orders Only | [facility] [place] | Henok Luther MD | Extrinsic asthma, | | 2018 | | OTOLARYNGOLOGY [address] | [address] | unspecified asthma | | | | [address] | [address] [place] | severity, | | | | [place], [place] | [address] | unspecified whether | | | | [address] | | complicated, | | | | [phone] | | unspecified whether | | | [...] [place] | | | | | | [address] | | | | | | | | +--------+ + + + + | 01/17/ | Office | Vascular Surgery | Bill Arevalo DNP | | | 2019 | Visit | | [address] | | | | | | [place] | | | | | | [address] | | | | | | | | +--------+ + + + + | 05/22/ | Office | Nephrology | Mariana Cortez, | | | 2020 | Visit | | [address] | | | | | | [address] [place] | | | | | | [place] [address] | | | | | | [phone] | | | | | | | | +--------+ + + + + + + +--------+ + + | Name | Type | Priori | Associated Diagnoses | Order Schedule | | | | ty | | | + + +--------+ + + | * [facility] [place] | Outpatient | Routin | Extrinsic asthma, | Ordered: 06/10/2017 | | Otolaryngology - AMB | Referral [...]
--- OUTSIDE RECORDS SUMMARY | ~2019-11-09 | XMS | Encounter Summary ---
Demographics + + + | Address | [address] | | | [place] [address] | + + + | Home Phone [...] Author + + + | Author | [facility] | | | and [place] | + + + | Organization | [facility] | | [...] Team Providers + +------+ + | Care Lead Etl Developer Name | Role | Phone | + +------+ + | Mehrdad Avalos MD | PCP | | + +------+ + Reason for Visit +---------+--------+ + | Reason | Onset | Comments | | | Date | | +---------+--------+ + | Results | 08/03/ | culture results | | | 2019 | | +---------+--------+ + Encounter Details +--------+ + + + + | Date | Type | Department | Care Team | Description | +--------+ + + + + | 08/03/ | Telephone | [facility] | Elisha Dunbar | Results (culture | | 2019 | | INFECTIOUS DISEASE | [place] RN | results) | | | | [address] | | | | | | [place] | | | | | | [address] | | | | | | [phone] | | | +--------+ + + + [...] Telephone Encounter - Elisha Dunbar RN - 08/04/2019 1:45 PM BOB Cespedes's office call ed RUIZ ID RN. States their office had called DR Louie VARMA yesterday and did not receive a call back. Dr Hayley loco request to speak to RN or over the phone. Advised Dr Palma is in room with patients at this time. Dr Cespedes states he is concerned our office may not have had the most recent cul ture results when patient was seen 08/02/2019. Supplied [address] Cespedes with the office fax number, a nd requested his office fax the most recent culture results to Dr Palma. Will forward to Dr Palma and have him review. Dr Cespedes states he will re-fax the recent culture results today . Will forward message to Dr Palma for review. 08/04/2019 1530 Culture results received and reviewed with Dr Palma, at the office. DR Palma states patie nt infection will be well covered with IV Ertapenem as prescribed. No changes needed at this time. documented i n this encounter Plan of [...] [place] | | | | | | [address] | | | | | | | | +--------+ + + + + | 01/17/ | Office | Vascular Surgery | Bill Arevalo DNP | | | 2019 | Visit | | [address] | | | | | | [place] | | | | | | [address] | | | | | | | | +--------+ + + + + | 05/22/ | Office | Nephrology | Mariana Cortez W, | | | 2020 | Visit | | [address] | | | | | | [address] [place] | | | | | | [place] [address] | | | | | | [phone] | | | | | | | | +--------+ + + + + documented as of this encounter Visit Diagnoses Not on filedocumented in this encounter"
--- OUTSIDE RECORDS SUMMARY | ~2019-11-09 | XMS | Encounter Summary ---
Demographics + + + | Address | [address] | | | [place] [address] | + + + | Home Phone | | + + + | Preferred Language | Unknown | + + + | Marital Status | Single | + + + | Quaker Affiliation | Unknown | + + + [...] Team Providers + +------+ + | Care Back Roller Name | Role | Phone | [...] | | | | severity, | [place] [address] | [address] Phone: | | | | | uncomplicate | Phone: | [phone] | | | | | d | [phone] | Fax: | | | | | Non-seasonal | Fax: | [phone] | | | | | allergic | [phone] | | | | | | rhinitis due | | | | | | | to pollen | | | | | | | Procedures | | | | | | | ME | | | | | | | IMMUNOTHERAP | | | | | | | Y, ONE | | | | | | | INJECTION | | | | | | | ME | | | | | | | IMMUNOTHERAP | | | | | | | Y, 2+ | | | | | | | INJECTIONS | | | | | | | ME PROFES | | | | | | [...] due to pollen | | | | [place], [place] | [address] | (Primary Dx); | | | | [address] | | Allergic rhinitis | | | | [phone] | | due to animal (cat) | [...] encounter Progress Notes Modesta Benitez RN - 04/02/2016 4:19 PM PSTPatient presents with epi-pen & inhaler . No active wheezing or cough associated with asthma today. Denies delayed reaction from pre vious allergy injection. No fever or allergy related rash. No recent heavy exposure to aller gens. No plans for strenuous exercise immediately before or after injection today.Electronic ally signed by Modesta Benitez RN at 04/02/2016 5:00 PM PSTdocumented in this encoun ter Plan [...] [place] | | | | | | [id number] | | | | | | | | +--------+ + + + + | 05/22/ | Office | Nephrology | Mariana Cortez, | | | 2020 | Visit | | [address] | | | | | | [address] [place] | | | | | | [place] [address] | | | | | | [phone] | | | | | | | [...]
--- OUTSIDE RECORDS SUMMARY | ~2019-11-09 | XMS | Encounter Summary ---
Demographics + + + | Address | [address] | | | [place] [address] | + + + | Home Phone [...] Team Providers + +------+ + | Care Laborer [employer] Name | Role | Phone | + [...] | | | rhinitis due | [place] [address] | [address] Phone: | | | | | to animal | Phone: | [phone] | | | | | (cat) (dog) | [phone] | Fax: | | | | | hair and | Fax: | [phone] | | | | | dander | [phone] | | | | | | Allergic [...] + | 08/05/ | Clinical | [facility] [place] | Henok Luther MD | Allergic rhinitis | | 2016 | Support | OTOLARYNGOLOGY [address] | [address] | due to pollen | | | | [address] | [address] [place] | (Primary Dx); | | | | [place] | [address] | Allergic rhinitis | | | | [address] | | due to animal (cat) | | | | [phone] | | (dog) hair and | | [...] encounter Progress Notes Modesta Benitez RN - 08/06/2015 4:23 PM PDTPatient presents with epi-pen & inhaler . No active wheezing or cough associated with asthma today. Denies delayed reaction from pre vious allergy injection. No fever or allergy related rash. No recent heavy exposure to aller gens. No plans for strenuous exercise immediately before or after injection today.Electronic ally signed by Modesta Benitez RN at 08/06/2015 4:51 PM PDTdocumented in this encoun ter [...] [place] | | | | | | [id number] | | | | | | | | +--------+ + + + + | 01/17/ | Office | Vascular Surgery | Bill Arevalo DNP | | | 2019 | Visit | | [address] | | | | | | [place] | | | | | | [address] | | | | | | | | +--------+ + + + + | 05/22/ | Office | Nephrology | Mariana Cortez, | | | 2020 | Visit | | [address] | | | | | | [address] [place] | | | | | | [place] [address] | | | | | | [phone] | | | | | | | [...]
--- OUTSIDE RECORDS SUMMARY | ~2019-11-09 | XMS | Encounter Summary ---
Demographics + + + | Address | [address] | | | [place] [address] | + + + | Home Phone [...] Team Providers + +------+ + | Care Laboratory Specialist Name | Role | Phone | + +------+ + | Mehrdad Avalos MD | PCP | | + +------+ + Reason for Visit +--------+--------+ + | Reason | Onset | Comments | | | Date | | +--------+--------+ + | Other | 08/15/ | PROACTIVE SCREENING DONE | | | 2020 | | +--------+--------+ + Encounter Details +--------+ + + + + | Date | Type | Department | Care Team | Description | +--------+ + + + + | 08/15/ | Telephone | [facility] | Shirley Alfonso, | Other (PROACTIVE | | 2019 | | INFECTIOUS DISEASE | Lead Cytogenetic Technologist | SCREENING DONE ) | | | | [address] | | | | | | [place] | | | | | | [address] | | | | | | [phone] | | | +--------+ + + + [...] Miscellaneous Notes Telephone Encounter - Shirley Alfonso, Lead Cytogenetic Technologist - 08/16/2019 10:23 AM PDTProactive screening for upcoming office visit to help ensure the clinic environment remains a safe ayah ce to receive care. 1. Patient reports the following symptoms and/or exposure on the epidemic risk screen : o Fever greater than 100.4 F?: no o New onset (within the last 14 days) cough?: no o New onset (within the last 14 days) shortness of breath?: no o New onset (within the last 14 days) loss of taste or smell?: no o Close contact with someone who has been diagnosed with COVID-19?: no The patient reported no symptoms or exposure and proceeded with proactive screening process . 2. Have you or someone you are in close contact with been tested for COVID-19?: No. Okay to see patient in clinic per scheduling guidelines, proceeded to question #3 If YES, have the following three things happened? ? Has it been ten days since your symptoms first started?: YES ? Have you been fever free for 72 hours without taking fever reducing medications?: YES ? Have you experienced at least 3 days of improvement in your respiratory symptoms (e.g. co ugh, shortness of breath)?:YES Patient had to be tested prior to surgery procedure. 2WK ago 3. Does the patient have MyChart Access?: No. Patient refused. 4. Is the patient allowed a visitor per policy?: no. If YES, ask the following questions to the VISITOR ? Does the visitor have any of the following? ? Have you or someone you are in close contact with been tested for COVID-19?: Please be aware that you will be asked these same questions when you arrive at the clinic. If you have any changes in your symptoms between now and your visit, please call us so we c an get you scheduled for an alternative visit before you arrive at the clinic. For your safety and the safety of others, we ask that if you are being seen in person at on e of our clinics you arrive wearing a mask. Hand washing is cohen to keeping our clinic a safe place to receive care. While you are in ou r clinics you will be asked to perform hand washing at different intervals throughout your v isit. Austin cortez in this encounter Plan of Treatment +--------+ + + + + | Date | Type | Specialty | Care Team | Description | +--------+ + + + + | 01/17/ | Appointment | Radiology | Bill Arevalo DNP | | 2019 | | | [address] | | | | | | [place], [place] | | | | | | [address] | | | | | | | | +--------+ + + + + | 01/17/ | Office | Vascular Surgery | Bill Arevalo DNP | | | 2019 | Visit | | [address] | | | | | | [place] | | | | | | [address] | | | | | | | | +--------+ + + + + | 05/22/ | Office | Nephrology | Mariana Cortez, | | | 2020 | Visit | | [address] | | | | | | [address] [place] | | | | | | [place] [address] | | | | | | [phone] | | | | | | | | +--------+ + + + + documented as of this encounter Visit Diagnoses Not on filedocumented in this encounter"
--- OUTSIDE RECORDS SUMMARY | ~2019-11-09 | XMS | Encounter Summary ---
Demographics + + + | Address | [address] | | | [place] [address] | + + + | Home Phone [...] Providers + +------+ + | Care Driver Service Technician Name | Role | Phone | + +------+ + PCP | Unavailable | + +------+ + Reason for Visit + + + | Reason | Comments | + + + | Chronic Kidney | stage 3 | | Disease | | + [...] | [place], | | | | | Chronic | MD Orin | Mariana Hua, | | | | | kidney | [address] | [address] | | | | | disease, | [address] [place] | [address] | | | | | stage III | [place] | [address] | | | | | (moderate) | [address] | [place], | | | | | | Phone: | [place] [address] | | | | | | [phone] | Phone: | | | | | | Fax: | [phone] | | | | | | [phone] | Fax: | | | | | | | [phone] | +--------+--------+ + + + + Encounter Details +--------+---------+ + + + | Date | Type | Department | Care Team | Description | +--------+---------+ + + + | 07/25/ | Office | [facility] | Mairana Cortez W, | CKD (chronic kidney | | 2015 | Visit | NEPHROLOGY [address] | [address] | disease) stage 3, | | | | [address] | [address] [place] | GFR 30-59 ml/min | | | | [place], [place] | [place] [address] | ([facility]) (Primary Dx); | | | | [address] | [phone] | Essential | | | | [phone] | | hypertension; | | | | | | Proteinuria; Renal | | | | | | tubular acidosis, | | | | | | type 4; Type 2 | | | | | | diabetes mellitus | | | | | | with complication | | | | | | ([facility]) | +--------+---------+ + + + Social History [...] + + + | Blood Pressure | 104/72 | 07/25/2014 1:26 PM | | | | | PDT | | + + + + + | Pulse | 80 | 07/25/2014 1:26 PM | | | | | PDT | | + + + + + | Temperature | - | - | | + + + + + | Respiratory Rate | 16 | 07/25/2014 1:26 PM | | | | | PDT | | + + + + + | Oxygen Saturation | - | - | | + + + + + | Inhaled Oxygen | - | - | | | Concentration | | | | + + + + + | Weight | 98.8 kg (217 lb 14.4 | 07/25/2014 1:26 PM | | | | oz) | PDT | | + + + + + | Height | 160 cm (5' 3") | 07/25/2014 1:26 PM | | | | | PDT | | + + + + + | Body Mass Index | 38.6 | 07/25/2014 1:26 PM | | | | | PDT | | + + + + + documented in this encounter Progress Notes Mariana Cortez MD - 07/25/2014 2:02 PM PDTFormatting of this note might be different f rom the original. Nephrology Follow-up Visit Visit date: 07/25/2014 Primary care provider: Orin Snow Follow-up type: 6 months HPI: July Forte is a 44 y.o. female CKD 3, proteinuric. Due to diabetic nephropathy. Pt feels well. No dysuria, gross hematuria, foamy urine. Pt is having right ankle edema a fter twisting ankle. No chest pain, shortness of breath. Occasional diarrhea, depending on what she eats. Pt is now on insulin therapy, Lantus nightly and Aspart with meals. Pt reports CBGs are im proved since starting insulin therapy. ROS: A 6-system review was performed, and was negative or noncontributory other than as sta [place] above. PMH: Patient Active Problem List Diagnosis Date Noted Renal tubular acidosis, type 4 DM type 2 (diabetes mellitus, type 2) 10/13/2012 Hypertension 10/13/2012 Proteinuria 10/13/2012 CKD (chronic kidney disease) stage 3, GFR 30-59 ml/min ([facility]) 10/13/2012 Note Last Updated: 10/13/2012 Renal ultrasound 09/16/12: right kidney 13 cm, left kidney 12.4 cm. Proteinuric. Migraine headache Outpatient Prescriptions Marked as Taking for the 07/25/14 encounter (Office Visit) with Mary Ellen Cortez MD Medication Sig Dispense Refill Alcohol Swabs 70 % PADS by Does not apply route. amLODIPine (NORVASC) 5 mg tablet Take 5 mg by mouth Daily. B-D UF III MINI PEN NEEDLES 31G X 5 MM [facility] CONTOUR TEST strip 4 strips Daily. Blood Glucose Monitoring Suppl (CONTOUR BLOOD GLUCOSE SYSTEM) JOANNA by Does not apply ro [place]. bumetanide (BUMEX) 0.5 mg tablet Take 2 mg by mouth Daily. cholecalciferol (VITAMIN D-3) 5000 UNITS TABS Take 5,000 Units by mouth Daily. cyanocobalamin (VITAMIN B-12) 500 mcg tablet Take 1,000 mcg by mouth Daily. folic acid 1 mg tablet Take 1 mg by mouth Daily. insulin aspart (NOVOLOG) 100 units/mL injection Inject 15 Units under the skin 3 times daily (before meals). insulin glargine (LANTUS SOLOSTAR) 100 units/mL injection (pen) Inject 15 Units under t he skin nightly. losartan (COZAAR) 100 MG tablet Take 50 mg by mouth Daily. metoprolol (TOPROL-XL) 100 MG 24 hr tablet Take 100 mg by mouth Daily. rosuvastatin (CRESTOR) 20 mg tablet Take 20 mg by mouth nightly. sitagliptin (JANUVIA) 50 MG tablet Take 50 mg by mouth Daily. TechLite Lancets [facility] [place] Exam: Filed Vitals: 07/25/14 1326 BP: 104/72 Pulse: 80 Resp: 16 Height: 1.6 m (5' 3") Weight: 98.839 kg (217 lb 14.4 oz) Constitutional: Appears well-developed and well-nourished. No distress. Cardiovascular: Normal rate, regular rhythm and normal heart sounds. Trace pitting right > left peripheral edema. Lungs: Respiratory effort normal and breath sounds normal. No crackles or wheezes. Abdominal: Soft. Bowel sounds are present. Skin: Skin is warm. No rash over extremities. Neurological: Alert. Memory intact. Reviewed labs with patient. Office Visit on 07/25/2014 Component Date Value Ref Range Status POC COLOR UA 07/25/2014 Yellow Yellow, Light Yellow Final POC CLARITY UA 07/25/2014 Cloudy Final POC GLUCOSE UA 07/25/2014 Negative Negative Final POC BILIRUBIN UA 07/25/2014 Negative Negative Final POC KETONES UA 07/25/2014 Negative Negative, 100 mg/dL Final POC SPECIFIC GRAVITY UA 07/25/2014 1.015 1.001 - 1.030 Final POC BLOOD UA 07/25/2014 Negative Negative Final POC PH UA 07/25/2014 5.0 5.0, 6.0, 7.0, 8.0, 5.5, 6.5, 7.5 Final POC PROTEIN UA 07/25/2014 100 mg/dL* Negative Final POC UROBILINOGEN UA 07/25/2014 0.2 mg/dL 0.2, Negative, Normal, < 0.2 mg/dL, 1 mg/dL, < 0.2 E.U./dl, 1.0 E.U./dL, 0.2 mg/dL Final POC NITRITE UA 07/25/2014 Negative Final POC LEUKOCYTE ESTERASE UA 07/25/2014 Large* Negative Final Abstract on 07/20/2014 Component Date Value Ref Range Status UA Blood, External 07/20/2014 negative Final UA Glucose, External 07/20/2014 50 0 Final UA Ketones, External 07/20/2014 negative Final UA Ph, External 07/20/2014 6 5 - 9 Final UA Proteins, External 07/20/2014 30* 0 - 0 Final UA RBC, External 07/20/2014 2 0 - 4 Final UA Specific Orange, External 07/20/2014 1.004* 1.005 - 1.03 Final UA Leukocyte Esterase, External 07/20/2014 2+* 0 - 0 Final UA COMMENT 07/20/2014 Final microscopic shows urogenital contamination Abstract on 07/20/2014 Component Date Value Ref Range Status Creatinine, External 07/19/2014 1.31 0.6 - 1.35 Final eGFR, External 07/19/2014 44 Final LDL Cholesterol, External 07/19/2014 113* 100 Final Cholesterol, Total, External 07/19/2014 212* 200 mg/dl Final HDL Cholesterol, External 07/19/2014 40.8 40 mg/dl Final Triglycerides, External 07/19/2014 292* 30 - 150 Final Sodium, External 07/19/2014 133 132 - 143 Final Potassium, External 07/19/2014 5.1 3.6 - 5.1 Final Chloride, External 07/19/2014 106 95 - 112 Final Carbon Dioxide, External 07/19/2014 18* 19 - 31 Final Calcium, External 07/19/2014 8.5 8.4 - 10.2 Final Phosphorus, External 07/19/2014 3.4 2.5 - 5 Final Albumin, External 07/19/2014 3.3* 3.5 - 5 Final Glucose, External 07/19/2014 246* 70 - 100 Final BUN, External 07/19/2014 42* 6 - 23 Final Protein/Creatinine Ratio, External 07/19/2014 4.6 Final ASSESSMENT AND PLAN: ICD-9-CM 1. CKD (chronic kidney disease) stage 3, GFR 30-59 ml/min ([facility]) 585.3 POCT Urinalysis Dipst ick Automated Kidney function is stable. 2. Essential hypertension 401.9 Clinic BP is low-normal. Pt is asymptomatic. No change for now. 3. Proteinuria 791.0 Nephrotic-range, likely due to diabetic kidney disease. On losartan 50 mg QDAY. History of hyperkalemia on 100 mg QDAY. 4. Renal tubular acidosis, type 4 588.89 Serum bicarbonate remains below 20. -start sodium bicarbonate 650 mg BID 5. Type 2 diabetes mellitus with complication (HCC) 250.90 Pt is working with Dr. Snow to improve glycemic control. Return in 6 months: renal, vit D, pth, ua, urine prot/cr ratio. Cc: Dr. Snow documented in this encounter Plan of [...] [place] | | | | | | [address] | | | | | | | | +--------+ + + + + | 01/17/ | Office | Vascular Surgery | Bill Arevalo DNP | | | 2019 | Visit | | [address] | | | | | | [place] | | | | | | [address] | | | | | | | | +--------+ + + + + | 05/22/ | Office | Nephrology | Mariana Cortez W, | | | 2020 | Visit | | [address] | | | | | | [address] [place] | | | | | | [place] [id number] | | | | | | [phone] | | | | | | | | +--------+ + + + + documented as of this encounter Procedures + +--------+ + + + | Procedure Name | Priori | Date/Time | Associated Diagnosis | Comments | | | ty | | | | + +--------+ + + + | POCT URINALYSIS, | Routin | 07/25/2014 | CKD (chronic | Results for this | | AUTO WITH CONF | e | 1:15 PM | kidney disease) | procedure are in the | | | | PDT | stage 3, GFR 30-59 | results section. | | | | | ml/min (HCC) | | + +--------+ + + + documented in this encounter Results POCT Urinalysis Dipstick Automated (07/25/2014 1:15 PM PDT) + + + + + [...] + + | Glucose, | Negative | Negative | | | [...] + + + + | Specific | 1.015 | 1.001 - 1.030 | | | | Orange, | | | | | | UA, [...] + + + | Urobilinoge | 0.2 mg/dL | 0.2, Negative, | | | | [...] + + + + | Leukocyte | Large (A) | Negative | | [...] stage 3, GFR 30-59 ml/min ([facility]) - Primary Chronic kidney | | disease, Stage III (moderate) | + + | Essential hypertension Unspecified essential hypertension | + + | Proteinuria | + + | Renal tubular acidosis, type 4 Other specified disorders resulting from impaired | | renal function | + + | Type 2 diabetes mellitus with complication (HCC) | + + documented in this encounter
--- OUTSIDE RECORDS SUMMARY | ~2019-11-09 | XMS | Encounter Summary ---
Demographics + + + | Address | [address] | | | [place] [address] | + + + | Home Phone [...] Team Providers + +------+ + | Care Stamping Machine Operator Name | Role | Phone | + +------+ + | Alfredo Jacobson PA-C | PCP | | + +------+ + Reason for Visit + + + | Reason | Comments | + + + | Follow-up | 2 month allergy inj | + + + [...] Dean | | | | y | 2 month | Alfredo H, | MD [address] | | | | | follow | [address] | | | | | up/self/Medc | [address] | [address] [facility] | | | | | aid/[place] | [place] | [place], [place] | | | | | Procedures | [address] | [address] Phone: | | | | | OFFICE | [place], | [phone] | | | | | VISIT | [place] | Fax: | | | | | REGULAR | [address] | [phone] | | | | | | Phone: | | | | | | | [phone] | | | | | | | Fax: | | | | | | | [phone] | | +--------+--------+ + + + + Encounter Details +--------+---------+ + + + | Date | Type | Department | Care Team | Description | +--------+---------+ + + + | 07/10/ | Office | [facility] | Henok Dean MD | Allergic rhinitis | | 2016 | Visit | OTOLARYNGOLOGY [address] | [address] [place] | due to pollen | | | | [address] | [address] [place] | (Primary Dx) | | | | [place] | [address] | | | | | [address] | | | | | | [phone] | | | +--------+---------+ + + + [...] + + | Pulse | 94 | 07/11/2015 10:43 AM | | | | | PDT | | + + + + + | Temperature | - | - | | + + + + + | Respiratory Rate | 16 | 07/11/2015 10:43 AM | | | | | PDT | | + + + + + | Oxygen Saturation | 98% | 07/11/2015 10:43 AM | | | | | PDT | | + + + + + | Inhaled Oxygen | - | - | | | Concentration | | | | + + + + + | Weight | 89.8 kg (198 lb) | 07/11/2015 10:43 AM | | | | | PDT | | + + + + + | Height | 160 cm (5' 3") | 07/11/2015 10:43 AM | | | | | PDT | | + + + + + | Body Mass Index | 35.07 | 07/11/2015 10:43 AM | | | | | PDT | | + + + + + documented in this encounter Progress Notes Henok Dean MD - 07/11/2015 12:56 PM PDT [facility] OTOLARYNGOLOGY [address] [place] [id number] OFFICE NOTE HENOK DEAN MD Patient: MARYAM FORTE Admitting: MR #: [id number] LOC: PT TYPE: Adm Date: 07/11/2015 : 1970 DATE OF VISIT: 07/11/2015. The patient has been on her allergy shots, taking them intermittently and at least fairly faithfully over the last 2 months. She has been on them now for about a year and a half. She comes in for a followup visit. She feels she is doing much better with the allergy inj ections this spring compared to last spring. She has noticed a significant improvement an d did not have a lot of problems with her allergies this spring and only had to use medicat ion on a much more sparing basis. No problems with over reaction to the injections and ove rall she feels she is breathing well through the nose, not having the itchy eyes and sneez ing and is happy that she is progressing to a healthier state. PHYSICAL EXAMINATION: GENERAL: Shows an alert 45-year-old female patient. She is communicating well. Her voic e quality is good. HEENT: Skin of the face, nose and ears all appear to be healthy. Parotid, submandibular gland areas are smooth. Facial movement is symmetrical, without any weakness noted. Nasal passages have good room on both sides. There are no polyps, masses, or lesions. Seems to have good space to breathe. Floor of the mouth, buccal mucosa, hard palate, teeth, lips and gums were healthy. No mass seen in the oropharynx. The posterior pharyngeal wall is sm ooth. Tongue and soft palate are smooth and move symmetrically. NECK: There are no masses or lymphadenopathy. Thyroid gland was smooth and trachea midli ne. She moves her neck well without any pain or discomfort. IMPRESSION: Allergic rhinitis. DISCUSSION: The discussion was carried out with the patient to encourage her to be faithfu l with taking her injections with the continued improvement. She will be seen again in 8 m ont' time. Questions were answered for the patient, but overall she feels she is doing w ell. HENOK DEAN MD Dictated by HENOK DEAN MD 07/11/2015 12:56:12 Transcribed on 07/11/2015 13:26:57 by [facility] job# [id number] Confirmation #: [id number] cc: ALFREDO CURRAN-C P Henok Gavin MD - 07/11/2015 12:52 PM PDTSee dictation #[id number] signed by Henok Dean MD at 07/11/2015 12:56 PM PDTdocumented in this encounter Plan of [...] [place] | | | | | | [address] | | | | | | | | +--------+ + + + + | 01/17/ | Office | Vascular Surgery | Bill Arevalo DNP | | | 2019 | Visit | | [address] | | | | | | [place] | | | | | | [address] | | | | | | | | +--------+ + + + + | 05/22/ | Office | Nephrology | Mariana Cortez, | | | 2020 | Visit | | MD [address] | | | | | | [address] [place] | | | | | | [place] [address] | | | | | | [phone] | | | | | | | | +--------+ + + + + documented as of this encounter Visit Diagnoses + + | Diagnosis | + + | Allergic rhinitis due to pollen - Primary | + + documented in this encounter
--- OUTSIDE RECORDS SUMMARY | ~2019-11-09 | XMS | Encounter Summary ---
Demographics + + + | Address | [address] | | | [place] [address] | + + + | Home Phone [...] Team Providers + +------+ + | Care Radiological Metallurgist Name | Role | Phone | + [...] | | | rhinitis due | [place] [address] | [address] Phone: | | | | | to animal | Phone: | [phone] | | | | | (cat) (dog) | [phone] | Fax: | | | | | hair and | Fax: | [phone] | | | | | dander | [phone] | | | | | | Allergic [...] | +--------+ + + + + | 07/15/ | Clinical | [facility] [place] | Henok Luther MD | Unspecified | | 2016 | Support | OTOLARYNGOLOGY [address] | [address] [place] | asthma(493.90) | | | | [address] | [address] [place] | (Primary Dx); | | | | [place] | [address] | Allergic rhinitis | | | | [address] | | due to pollen; | | | | [phone] | | Allergic rhinitis | | | [...] encounter Progress Notes Modesta Benitez RN - 07/16/2015 3:32 PM PDTPatient presents with epi-pen & inhaler . No active wheezing or cough associated with asthma today. Denies delayed reaction from pre vious allergy injection. No fever or allergy related rash. No recent heavy exposure to aller gens. No plans for strenuous exercise immediately before or after injection today.Electronic ally signed by Modesta Benitez RN at 07/16/2015 4:11 PM PDTdocumented in this encoun ter Plan [...] [place] | | | | | | [address] | | | | | | | | +--------+ + + + + | 01/17/ | Office | Vascular Surgery | Bill Arevalo DNP | | | 2019 | Visit | | [address] | | | | | | [place] | | | | | | [address] | | | | | | | | +--------+ + + + + | 05/22/ | Office | Nephrology | Dana Mariana Hua, | | | 2020 | Visit | | [address] | | | | | | [address] [place] | | | | | | [place] [address] | | | | | | [phone] | | | | | | | | +--------+ + + + + documented as of this encounter Visit Diagnoses + + | Diagnosis | + + | Unspecified asthma(493.90) - Primary Unspecified asthma | + + | Allergic rhinitis due to pollen | + + | Allergic rhinitis due to animal (cat) (dog) hair and dander | + + | Allergic rhinitis due to dust mite | + + documented in this encounter"
--- OUTSIDE RECORDS SUMMARY | ~2019-11-09 | XMS | Encounter Summary ---
Demographics + + + | Address | [address] | | | [place] [address] | + + + | Home Phone [...] Team Providers + +------+ + | Care Architecture Department Chair Name | Role | Phone | + [...] [address] [place] | | | | | [place], [place] | [place] [address] | | | | | [address] | [phone] | | | | | [phone] | | | +--------+ + + + [...] [place] | | | | | | [address] | | | | | | | | +--------+ + + + + | 01/17/ | Office | Vascular Surgery | Bill Arevalo DNP | | | 2019 | Visit | | [address] | | | | | | [place] | | | | | | [address] | | | | | | | | +--------+ + + + + | 05/22/ | Office | Nephrology | Mariana Cortez, | | | 2020 | Visit | | MD [address] | | | | | | [address] [place] | | | | | | [place] [address] | | | | | | [phone] | | | | | | | | +--------+ + + + + documented as of this encounter Procedures + +--------+ + + + | Procedure Name | Priori | Date/Time | Associated Diagnosis | Comments | | | ty | | | | + +--------+ + + + | EXTERNAL LAB: AST | Routin | 09/10/2012 | | Results for this | | | e | | | procedure are in the | | | | | | results section. | + +--------+ + + + | EXTERNAL LAB: NELLY | Routin | 09/10/2012 | | Results for this | | | e | | | procedure are in the | | | | | | results section. | + +--------+ + + + | EXTERNAL LAB: CLINT | Routin | 09/10/2012 | | Results for this | | | e | | | procedure are in the | | | | | | results section. | + +--------+ + + + | EXTERNAL LAB: | Routin | 09/10/2012 | | Results for this | | TRIGLYCERIDES | e | | | procedure are in the | | | | | | results section. | + +--------+ + + + | EXTERNAL LAB: | Routin | 09/10/2012 | | Results for this | | CHOLESTEROL, HDL | e | | | procedure are in the | | | | | | results section. | + +--------+ + + + | EXTERNAL LAB: | Routin | 09/10/2012 | | Results for this | | CHOLESTEROL, TOTAL | e | | | procedure are in the | | | | | | results section. | + +--------+ + + + | EXTERNAL LAB: | Routin | 09/10/2012 | | Results for this | | CHOLESTEROL, LDL | e | | | procedure are in the | | | | | | results section. | + +--------+ + + + | EXTERNAL LAB: EGFR | Routin | 09/10/2012 | | Results for this | | | e | | | procedure are in the | | | | | | results section. | + +--------+ + + + | EXTERNAL LAB: | Routin | 09/10/2012 | | Results for this | | CREATININE | e | | | procedure are in the | | | | | | results section. | + +--------+ + + + | EXTERNAL LAB: | Routin | 09/10/2012 | | Results for this | | HEMOGLOBIN A1C | e | | | procedure are in the | | | | | | results section. | + +--------+ + + + | CMPI | Routin | 09/10/2012 | | Results for this | | | e | | | procedure are in the | | | | | | results section. | + +--------+ + + + | EXTERNAL LAB: AST | Routin | 06/04/2000 | | Results for this | | | e | | | procedure are in the | | | | | | results section. | + +--------+ + + + | EXTERNAL LAB: ALT | Routin | 06/04/2000 | | Results for this | | | e | | | procedure are in the | | | | | | results section. | + +--------+ + + + | EXTERNAL LAB: | Routin | 06/04/2000 | | Results for this | | TRIGLYCERIDES | e | | | procedure are in the | | | | | | results section. | + +--------+ + + + | EXTERNAL LAB: | Routin | 06/04/2000 | | Results for this | | CHOLESTEROL, HDL | e | | | procedure are in the | | | | | | results section. | + +--------+ + + + | EXTERNAL LAB: | Routin | 06/04/2000 | | Results for this | | CHOLESTEROL, TOTAL | e | | | procedure are in the | | | | | | results section. | + +--------+ + + + | EXTERNAL LAB: | Routin | 06/04/2000 | | Results for this | | CHOLESTEROL, LDL | e | | | procedure are in the | | | | | | results section. | + +--------+ + + + | EXTERNAL LAB: | Routin | 06/04/2000 | | Results for this | | CREATININE | e | | | procedure are in the | | | | | | results section. | + +--------+ + + + | CMPI | Routin | 06/04/2000 | | Results for this | | | e | | | procedure are in the | | | | | | results section. | + +--------+ + + + documented in this encounter Results External Lab: Hemoglobin A1c (09/10/2012) + +-------+ + + + | Component | Value | Ref Range | Performed | Pathologist | | | | | At | Signature | + +-------+ + + + | Hemoglobin | 13.6 | | EXTERNAL | | | A1c, | | | LAB | | | external | | | | | + +-------+ [...] | | | + +---------+ + + CMP/ISTAT (09/10/2012) + +---------+ + + + | Component | Value | Ref Range | Performed | Pathologist | | | | | At | Signature | + +---------+ + + + | Na | 135 | mmol/L | | | + +---------+ + + + | K | 5.0 | mmol/L | | | + +---------+ + + + | Cl | 103 | mmol/L | | | + +---------+ + + + | CO2 | 21 | mmol/L | | | + +---------+ + + + | Glucose | 88 | mg/dL | | | + +---------+ + + + | BUN | 40 | mg/dL | | | + +---------+ + + + | Calcium | 8.7 | mg/dL | | | + +---------+ + + + | Alkaline | 74 | 35 - 115 U/L | | | | Phosphatase | | | | | + +---------+ + + + | Bilirubin | 0.2 | 0.1 - 1.5 mg/dL | | | | Total | | | | | + +---------+ + + + | Albumin | 3.1 (A) | 3.5 - 5.0 g/dL | | | + +---------+ + + + | Uric Acid | 7.3 | mg/dL | | | + +---------+ + + + | Vit D, | 10 | | | | | 25-Hydroxy | | | | | + +---------+ + + + | White Blood | 10.2 | K/uL | | | | Cells | | | | | + +---------+ + + + | Hemoglobin | 13.0 | 11.3 - 15.5 | | | | | | g/dL | | | + +---------+ + + + | Hematocrit | 37.8 | 34.0 - 46.0 % | | | + +---------+ + + + | MCV | 89.4 | 80.0 - 98.0 fL | | | + +---------+ + + + | Platelet | 330 | 150 - 400 K/uL | | | | Count | | | | | + +---------+ + + + + + | Specimen | + + | Blood specimen | | (specimen) | + + External Lab: TSH (09/10/2012) + +-------+ + + + | Component | Value | Ref Range | Performed | Pathologist | | | | | At | Signature | + +-------+ + + + | TSH, | 0.705 | 0.27 - 4.2 | EXTERNAL | | | External | [...] + +---------+ + + External Lab: Triglycerides (09/10/2012) + +---------+ + + + | Component | Value | Ref Range | Performed | Pathologist | | | | | At | Signature | + +---------+ + + + | Triglycerid | 199 (A) | 30 - 150 | EXTERNAL [...] +---------+ + + External Lab: Cholesterol, HDL (09/10/2012) + +-------+ + + + | Component | Value | Ref Range | Performed | Pathologist | | | | | At | Signature | + +-------+ + + + | HDL | 49.2 | 40 | EXTERNAL | | | [...] +---------+ + + External Lab: Cholesterol, Total (09/10/2012) + +---------+ + + + | Component | Value | Ref Range | Performed | Pathologist | | | | | At | Signature | + +---------+ + + + | Cholesterol | 256 (A) | 200 | EXTERNAL | | [...] +---------+ + + External Lab: Cholesterol, LDL (09/10/2012) + +---------+ + + + | Component | Value | Ref Range | Performed | Pathologist | | | | | At | Signature | + +---------+ + + + | LDL | 167 (A) | 100 | EXTERNAL | | [...] + +---------+ + + External Lab: AST (09/10/2012) + +-------+ + + + | Component | Value | Ref Range | Performed | Pathologist | | | | | At | Signature | + +-------+ + + + | AST, | 8 | 0 - 40 | EXTERNAL | [...] + +---------+ + + External Lab: ALT (09/10/2012) + +-------+ + + + | Component | Value | Ref Range | Performed | Pathologist | | | | | At | Signature | + +-------+ + + + | ALT, | 8 | 0 - 46 | EXTERNAL | [...] + +---------+ + + External Lab: eGFR (09/10/2012) + +-------+ + + + | Component | Value | Ref Range | Performed | Pathologist | | | | | At | Signature | + +-------+ + + + | eGFR, | 27 | | EXTERNAL | | | External | | | LAB | | + +-------+ + + + | eGFR, | | | EXTERNAL | | | | | | LAB | | | Eritrean, | | | | | | External [...] + +---------+ + + External Lab: Creatinine (09/10/2012) + +---------+ + + + | Component | Value | Ref Range | Performed | Pathologist | | | | | At | Signature | + +---------+ + + + | Creatinine, | 2.0 (A) | 0.5 - 1.5 | EXTERNAL | [...] | | | + +---------+ + + CMP/ISTAT (06/04/2000) + +-------+ + + + | Component | Value | Ref Range | Performed | Pathologist | | | | | At | Signature | + +-------+ + + + | Glucose | 226 | mg/dL | | | + +-------+ + + + | Uric Acid | 5.6 | mg/dL | | | + +-------+ + + + | Alkaline | 98 | 35 - 115 U/L | | | | Phosphatase | | | | | + +-------+ + + + | Bilirubin | 0.5 | 0.1 - 1.5 mg/dL | | | | Total | | | | | + +-------+ + + + | Albumin | 3.9 | 3.5 - 5.0 g/dL | | | + +-------+ + + + | Calcium | 9.0 | mg/dL | | | + +-------+ + + + | Phosphorus | 3.6 | 2.3 - 4.8 mg/dL | | | + +-------+ + + + | BUN | 10 | mg/dL | | | + +-------+ + + + | Na | 138 | mmol/L | | | + +-------+ + + + | K | 4.4 | mmol/L | | | + +-------+ + + + | Cl | 105 | mmol/L | | | + +-------+ + + + | CO2 | 26 | mmol/L | | | + +-------+ + + + + + | Specimen | + + | Blood specimen | | (specimen) | + + External Lab: AST (06/04/2000) + +--------+ + + + | Component | Value | Ref Range | Performed | Pathologist | | | | | At | Signature | + +--------+ + + + | AST, | 57 (A) | 0 - 40 | EXTERNAL | [...] + +---------+ + + External Lab: ALT (06/04/2000) + +---------+ + + + | Component | Value | Ref Range | Performed | Pathologist | | | | | At | Signature | + +---------+ + + + | ALT, | 105 (A) | 0 - 46 | EXTERNAL | [...] + +---------+ + + External Lab: Triglycerides (06/04/2000) + +---------+ + + + | Component | Value | Ref Range | Performed | Pathologist | | | | | At | Signature | + +---------+ + + + | Triglycerid | 297 (A) | 30 - 200 | EXTERNAL | | | es, | [...] +---------+ + + External Lab: Cholesterol, HDL (06/04/2000) + +-------+ + + + | Component | Value | Ref Range | Performed | Pathologist | | | | | At | Signature | + +-------+ + + + | HDL | 37 | 35 | EXTERNAL | | | Cholesterol | [...] +---------+ + + External Lab: Cholesterol, Total (06/04/2000) + +---------+ + + + | Component | Value | Ref Range | Performed | Pathologist | | | | | At | Signature | + +---------+ + + + | Cholesterol | 278 (A) | 200 | EXTERNAL | | [...] +---------+ + + External Lab: Cholesterol, LDL (06/04/2000) + +---------+ + + + | Component | Value | Ref Range | Performed | Pathologist | | | | | At | Signature | + +---------+ + + + | LDL | 193 (A) | 130 | EXTERNAL | | | Cholesterol | [...] + +---------+ + + External Lab: Creatinine (06/04/2000) + +-------+ + + + | Component | Value | Ref Range | Performed | Pathologist | | | | | At | Signature | + +-------+ + + + | Creatinine, | 0.6 | 0.5 - 1.5 | EXTERNAL | [...]
--- OUTSIDE RECORDS SUMMARY | ~2019-11-09 | XMS | Encounter Summary ---
Demographics + + + | Address | [address] | | | [place] [address] | + + + | Home Phone [...] Team Providers + +------+ + | Care Laundry Clerk Name | Role | Phone | [...] Description | +--------+---------+ + + + | 11/06/ | Office | [facility] | Henok Luther MD | Deviated nasal | | 2017 | Visit | OTOLARYNGOLOGY [address] | [address] | septum (Primary Dx); | | | | [address] | [address] [place], [place] | Hypertrophy of | | | | [place], [place] | [address] | nasal turbinates; | | | | [address] | | Non-seasonal | | | | [phone] | | allergic rhinitis | | | [...] + + | Pulse | 101 | 11/06/2016 4:09 PM | | | | | PDT | | + + + + + | Temperature | - | - | | + + + + + | Respiratory Rate | 16 | 11/06/2016 4:09 PM | | | | | PDT | | + + + + + | Oxygen Saturation | 99% | 11/06/2016 4:09 PM | | | | | PDT | | + + + + + | Inhaled Oxygen | - | - | | | Concentration | | | | + + + + + | Weight | 90.3 kg (199 lb) | 11/06/2016 4:09 PM | | | | | PDT | | + + + + + | Height | 160 cm (5' 3") | 11/06/2016 4:09 PM | | | | | PDT | | + + + + + | Body Mass Index | 35.25 | 11/06/2016 4:09 PM | | | | | PDT | | + + + + + documented in this encounter H&P Notes Henok Luther MD - 11/06/2016 4:15 PM PDT OTOLARYNGOLOGY HISTORY AND PHYSICAL EXAMINATION CHIEF COMPLAINT: [...] No other ENT complaints at the current [facility]. PAST MEDICAL HISTORY: Past Medical History: Diagnosis Date Chronic kidney disease COPD (chronic obstructive pulmonary disease) ([facility]) 09/08/2012 Diabetes mellitus ([facility]) 02/23/1998 Edema 09/08/2012 Hypertension 09/08/2012 Rash PAST [...] 31G X [address] [facility] CROW CONTOUR TEST strip 4 strips Daily. Blood Glucose Monitoring Suppl (CONTOUR BLOOD GLUCOSE SYSTEM) JOANNA by Does not apply [place]. bumetanide (BUMEX) 0.5 mg tablet Take 2 [...] tablet [address] [facility] No current facility-administered medications for this visit. [...] in 6 months. ELECTRONICALLY SIGNED BY: Henok Luther MD, 11/06/2016 16:44 documented in this enco unter Plan of [...] [place] | | | | | | [address] | | | | | | | | +--------+ + + + + | 01/17/ | Office | Vascular Surgery | Bill Arevalo DNP | | | 2019 | Visit | | [address] | | | | | | [place] | | | | | | [address] | | | | | | | | +--------+ + + + + | 05/22/ | Office | Nephrology | Mariana Cortez, | | | 2020 | Visit | | [address] | | | | | | [address] [place] | | | | | | [place] [address] | | | | | | [phone] | | | | | | | | +--------+ + + + + documented as of this encounter Visit Diagnoses + + | Diagnosis | + + | Deviated nasal septum - Primary | + + | Hypertrophy of nasal turbinates | + + | Non-seasonal allergic rhinitis due to pollen | + + documented in this encounter
--- OUTSIDE RECORDS SUMMARY | ~2019-11-09 | XMS | Encounter Summary ---
Demographics + + + | Address | [address] | | | [place] [address] | + + + | Home Phone [...] Team Providers + +------+ + | Care Junior Systems Analyst Name | Role | Phone | + +------+ + | Ronel Jacobson PA-C | PCP | | + +------+ + Encounter Details +--------+ + + + + | Date | Type | Department | Care Team | Description | +--------+ + + + + | 09/17/ | Abstract | [facility] [place] | Mariana Cortez W, | | | 2015 | | NEPHROLOGY [address] | [address] | | | | | [address] | [address] [place] | | | | | [place], [place] | [place] [address] | | | | | [address] | [phone] | | | | | [phone] | | | +--------+ + + + [...] [place] | | | | | | [address] | | | | | | | | +--------+ + + + + | 01/17/ | Office | Vascular Surgery | Bill Arevalo DNP | | | 2019 | Visit | | [address] | | | | | | [place] | | | | | | [address] | | | | | | | | +--------+ + + + + | 05/22/ | Office | Nephrology | Mariana Cortez W, | | | 2020 | Visit | | [address] | | | | | | [address] [place] | | | | | | [place] [address] | | | | | | [phone] | | | | | | | | +--------+ + + + + documented as of this encounter Procedures + +--------+ + + + | Procedure Name | Priori | Date/Time | Associated Diagnosis | Comments | | | ty | | | | + +--------+ + + + | EXTERNAL LAB: LEVI | Routin | 09/17/2015 | | Results for this | | | e | | | procedure are in the | | | | | | results section. | + +--------+ + + + | EXTERNAL LAB: | Routin | 09/17/2015 | | Results for this | | GLUCOSE | e | | | procedure are in the | | | | | | results section. | + +--------+ + + + | EXTERNAL LAB: | Routin | 09/17/2015 | | Results for this | | ALBUMIN | e | | | procedure are in the | | | | | | results section. | + +--------+ + + + | EXTERNAL LAB: | Routin | 09/17/2015 | | Results for this | | PHOSPHORUS | e | | | procedure are in the | | | | | | results section. | + +--------+ + + + | EXTERNAL LAB: | Routin | 09/17/2015 | | Results for this | | CALCIUM | e | | | procedure are in the | | | | | | results section. | + +--------+ + + + | EXTERNAL LAB: CARBON | Routin | 09/17/2015 | | Results for this | | DIOXIDE | e | | | procedure are in the | | | | | | results section. | + +--------+ + + + | EXTERNAL LAB: | Routin | 09/17/2015 | | Results for this | | CHLORIDE | e | | | procedure are in the | | | | | | results section. | + +--------+ + + + | EXTERNAL LAB: | Routin | 09/17/2015 | | Results for this | | POTASSIUM | e | | | procedure are in the | | | | | | results section. | + +--------+ + + + | EXTERNAL LAB: SODIUM | Routin | 09/17/2015 | | Results for this | | | e | | | procedure are in the | | | | | | results section. | + +--------+ + + + | EXTERNAL LAB: TSH | Routin | 09/17/2015 | | Results for this | | | e | | | procedure are in the | | | | | | results section. | + +--------+ + + + | EXTERNAL LAB: | Routin | 09/17/2015 | | Results for this | | CREATININE | e | | | procedure are in the | | | | | | results section. | + +--------+ + + + documented in this encounter Results External Lab: LEVI (09/17/2015) + +--------+ + + + | Component | Value | Ref Range | Performed | Pathologist | | | | | At | Signature | + +--------+ + + + | BUN, | 34 (A) | 8 - 25 | EXTERNAL | | | External | | | LAB | | + +--------+ + + + + +---------+ + + | Performing | Address | City/State/Zipcode | Phone Number | | Organization | | | | + +---------+ + + | EXTERNAL LAB | | | | + +---------+ + + External Lab: Glucose (09/17/2015) + +---------+ + + + | Component | Value | Ref Range | Performed | Pathologist | | | | | At | Signature | + +---------+ + + + | Glucose, | 118 (A) | 65 - 99 | EXTERNAL | | | External | | | LAB | | + +---------+ + + + + +---------+ + + | Performing | Address | City/State/Zipcode | Phone Number | | Organization | | | | + +---------+ + + | EXTERNAL LAB | | | | + +---------+ + + External Lab: Albumin (09/17/2015) + +---------+ + + + | Component | Value | Ref Range | Performed | Pathologist | | | | | At | Signature | + +---------+ + + + | Albumin, | 2.9 (A) | 3.5 - 4.7 | EXTERNAL | | | External | | | LAB | | + +---------+ + + + + +---------+ + + | Performing | Address | City/State/Zipcode | Phone Number | | Organization | | | | + +---------+ + + | EXTERNAL LAB | | | | + +---------+ + + External Lab: Phosphorus (09/17/2015) + +-------+ + + + | Component | Value | Ref Range | Performed | Pathologist | | | | | At | Signature | + +-------+ + + + | Phosphorus, | 4.7 | 2.3 - 4.8 | EXTERNAL | | | External | | | LAB | | + +-------+ + + + + +---------+ + + | Performing | Address | City/State/Zipcode | Phone Number | | Organization | | | | + +---------+ + + | EXTERNAL LAB | | | | + +---------+ + + External Lab: Calcium (09/17/2015) + +-------+ + + + | Component | Value | Ref Range | Performed | Pathologist | | | | | At | Signature | + +-------+ + + + | Calcium, | 8.9 | 8.5 - 10.2 | EXTERNAL | | | External | | | LAB | | + +-------+ + + + + +---------+ + + | Performing | Address | City/State/Zipcode | Phone Number | | Organization | | | | + +---------+ + + | EXTERNAL LAB | | | | + +---------+ + + External Lab: Carbon Dioxide (09/17/2015) + +-------+ + + + | Component [...] + +---------+ + + External Lab: Chloride (09/17/2015) + +-------+ + + + | Component | Value | Ref Range | Performed | Pathologist | | | | | At | Signature | + +-------+ + + + | Chloride, | 108 | 99 - 109 | EXTERNAL | | | External | | | LAB | | + +-------+ + + + + +---------+ + + | Performing | Address | City/State/Zipcode | Phone Number | | Organization | | | | + +---------+ + + | EXTERNAL LAB | | | | + +---------+ + + External Lab: Potassium (09/17/2015) + +-------+ + + + | Component [...] + +---------+ + + External Lab: Sodium (09/17/2015) + +-------+ + + + | Component [...] | + +---------+ + + External Lab: TSH (09/17/2015) + +-------+ + + + | Component | Value | Ref Range | Performed | Pathologist | | | | | At | Signature | + +-------+ + + + | TSH, | 1.34 | 0.45 - 5.1 | EXTERNAL | | | [...] + +---------+ + + External Lab: Creatinine (09/17/2015) + + + + + + | Component | Value | Ref Range | Performed | Pathologist | | | | | At | Signature | + + + + + + | Creatinine, | 1.07 (A) | 0.5 - 1 | EXTERNAL [...]
--- OUTSIDE RECORDS SUMMARY | ~2019-11-09 | XMS | Encounter Summary ---
Demographics + + + | Address | [address] | | | [place] [address] | + + + | Home Phone [...] | Author | [facility] | [...] Team Providers + +------+ + | Care Electrical Service Technician Name | Role | Phone [...] to pollen | [address] | [address] [place] | | | | | Allergic | [place], | [place], [place] | | | | | rhinitis due | [place] [address] | [address] Phone: | | | | | to animal | Phone: | [phone] | | | | | (cat) (dog) | [phone] | Fax: | | | | | hair and | Fax: | [phone] | | | | | dander | [phone] | | | | | | Allergic [...] | +--------+ + + + + | 02/06/ | Clinical | [facility] [place] | Henok Luther MD | Non-seasonal | | 2016 | Support | OTOLARYNGOLOGY [address] | [address] | allergic rhinitis | | | | [address] | [address] [place] | due to pollen | | | | [place], [place] | [address] | (Primary Dx); | | | | [address] | | Allergic rhinitis | | | | [phone] | | due to animal (cat) | [...] encounter Progress Notes Modesta Benitez RN - 02/07/2016 3:23 PM PSTPatient presents with epi-pen & inhaler . No active wheezing or cough associated with asthma today. Denies delayed reaction from pre vious allergy injection. No fever or allergy related rash. No recent heavy exposure to aller gens. No plans for strenuous exercise immediately before or after injection today.Electronic ally signed by Modesta Benitez RN at 02/07/2016 4:18 PM PSTdocumented in this encoun ter Plan [...] [place] | | | | | | [id number] | | | | | | | | +--------+ + + + + | 01/17/ | Office | Vascular Surgery | Bill Arevalo DNP | | 2019 | Visit | | [address] | | | | | | [place] | | | | | | [address] | | | | | | | | +--------+ + + + + | 05/22/ | Office | Nephrology | Mariana Cortez, | | | 2020 | Visit | | [address] | | | | | | [address] [place] | | | | | | [place] [address] | | | | | | [phone] | | | | | | | [...]
--- OUTSIDE RECORDS SUMMARY | ~2019-11-09 | XMS | Encounter Summary ---
Demographics + + + | Address | [address] | | | [place] [address] | + + + | Home Phone [...] Providers + +------+ + | Care Medical Laboratory Technicians Name | Role | Phone | + [...] | | | rhinitis due | [place] [address] | [address] Phone: | | | | | to animal | Phone: | [phone] | | | | | (cat) (dog) | [phone] | Fax: | | | | | hair and | Fax: | [phone] | | | | | dander | [phone] | | | | | | Allergic [...] | 12/04/ | Clinical | [facility] [place] | Henok Luther MD | Non-seasonal | | 2016 | Support | OTOLARYNGOLOGY [address] | [address] | allergic rhinitis | | | | [address] | [address] [place] | due to pollen | | | | [place], [place] | [address] | (Primary Dx); | | | | [address] | | Allergic rhinitis | | | | [phone] | | due to animal (cat) | | | | | | (dog) hair and | | | | | | dander; Allergic | | | | | | rhinitis due to dust | | | | | | mite; Asthmatic | | | | | | bronchitis, mild | | | | | | intermittent, | | | | | | uncomplicated [...] encounter Progress Notes Modesta Benitez RN - 12/05/2015 1:14 PM PDTPatient presents with epi-pen & inhaler . No active wheezing or cough associated with asthma today. Denies delayed reaction from pre vious allergy injection. No fever or allergy related rash. No recent heavy exposure to aller gens. No plans for strenuous exercise immediately before or after injection today.Electronic ally signed by Modesta Benitez RN at 12/05/2015 1:43 PM PDTdocumented in this encoun ter Plan [...] [place] | | | | | | [address] | | | | | | | | +--------+ + + + + | 01/17/ | Office | Vascular Surgery | Bill Arevalo DNP | | | 2019 | Visit | | [address] | | | | | | [place] | | | | | | [address] | | | | | | | | +--------+ + + + + | 05/22/ | Office | Nephrology | Mariana Cortez, | | | 2020 | Visit | | [address] | | | | | | [address] [facility] | | | | | | [place] [address] | | | | | | [phone] | | | | | | | [...] mite | + + | Asthmatic bronchitis, mild intermittent, uncomplicated | + + documented in this encounter"
--- OUTSIDE RECORDS SUMMARY | ~2019-11-09 | XMS | Encounter Summary ---
Demographics + + + | Address | [address] | | | [place] [address] | + + + | Home Phone [...] Team Providers + +------+ + | Care Pattern Checker Name | Role | Phone | [...] | | | | severity, | [place] [address] | [place], [place] | | | | | unspecified | Phone: | [address] | | | | | whether | [phone] | Phone: | | | | | complicated, | Fax: | [phone] | | | | | unspecified | [phone] | Fax: | | | | | whether | | [phone] | | | | | persistent | [...] | +--------+ + + + + | 09/30/ | Clinical | [facility] [place] | Henok Luther MD | Extrinsic asthma, | | 2019 | Support | OTOLARYNGOLOGY [address] | [address] | unspecified asthma | | | | [address] | [address] [place], [place] | severity, | | | | [place], [place] | [address] | unspecified whether | | | | [address] | | complicated, | | | | [phone] | | unspecified whether | | | [...] encounter Progress Notes Domenica Meredith RN - 09/30/2018 4:00 PM PDTPatient presents with epi-pen & inhaler. No ac tive wheezing or cough associated with asthma today. Denies delayed reaction from previous a llergy injection. No fever or allergy related rash. No recent heavy exposure to allergens. N o plans for strenuous exercise immediately before or after injection today.Electronically si gned by Domenica Meredith RN at 09/30/2018 4:18 PM PDTdocumented in this encounter Plan of [...] [place] | | | | | | [id number] | | | | | | | | +--------+ + + + + | 01/17/ | Office | Vascular Surgery | Bill Arevalo DNP | | | 2019 | Visit | | [address] | | | | | | [place] | | | | | | [address] | | | | | | | | +--------+ + + + + | 05/22/ | Office | Nephrology | Mariana Cortez, | | | 2020 | Visit | | MD [address] | | | | | | [address] [place] | | | | | | [place] [address] | | | | | | [phone] | | | | | | | [...]
--- OUTSIDE RECORDS SUMMARY | ~2019-11-09 | XMS | Encounter Summary ---
Demographics + + + | Address | [address] | | | [place] [address] | + + + | Home Phone [...] + + + | Author | [facility] | | | and [place] | + + + | Organization | [facility] | | [...] Team Providers + +------+ + | Care Mandolin Repair Person Name | Role | Phone | + +------+ + | Mehrdad Avalos MD | PCP | | + +------+ + Reason for Visit + +--------+ + | Reason | Onset | Comments | | | Date | | + +--------+ + | Procedure | 10/09/ | cancel EGD for 10/18/19 | | | 2020 | | + +--------+ + Encounter Details +--------+ + + + + | Date | Type | Department | Care Team | Description | +--------+ + + + + | 10/09/ | Telephone | [facility] | Iva Hardwick, | Procedure (cancel | | 2019 | | GASTROENTEROLOGY | [address] | EGD for 10/18/19) | | | | [address] | [place] [address] | | | | | [place], [place] | [phone] | | | | | [address] | | | | | | [phone] | | | +--------+ + + + [...] this encounter Miscellaneous Notes Telephone Encounter - Shanthi Bacon, Classroom Monitor - 10/10/2019 1:47 PM PDTPatient called and said she had surgery done by Dr. Upton and has stitches in her legs. So she will c all us once she is healed to reschedule. Informed pt I will cancel her procedure and COVID test and she can callus once she has the clearance from her doctor to continue. She said okay thank you. * removed from view schedule * cancelled covid test * called OR scheduling to cancel pt documented in this encounter Plan of Treatment +--------+ + + + + | Date | Type | Specialty | Care Team | Description | +--------+ + + + + | 01/17/ | Appointment | Radiology | Bill Arevalo DNP | | | 2019 | | | [address] | | | | | | [place] | | | | | | [address] | | | | | | | | +--------+ + + + + | 01/17/ | Office | Vascular Surgery | Bill Arevalo DNP | | | 2019 | Visit | | [address] | | | | | | [place] | | | | | | [address] | | | | | | | | +--------+ + + + + | 05/22/ | Office | Nephrology | Mariana Cortez, | | | 2020 | Visit | | [address] | | | | | | [address] [place] | | | | | | [place] [address] | | | | | | [phone] | | | | | | | | +--------+ + + + + documented as of this encounter Visit Diagnoses Not on filedocumented in this encounter"
--- OUTSIDE RECORDS SUMMARY | ~2019-11-09 | XMS | Encounter Summary ---
Demographics + + + | Address | [address] | | | [place] [address] | + + + | Home Phone [...] Providers + +------+ + | Care Vehicle Body Sander Name | Role | Phone | + +------+ + PCP | Unavailable | + +------+ + Reason for Visit + + + | Reason | Comments | + + + | Chronic Kidney | stage three | | Disease | | + + [...] | | | stage III | [place] | [address] | | | | | (moderate) | [address] | [place], | | | | | Other | Phone: | [place] [address] | | | | | specified | [phone] | Phone: | | | | | disorders | Fax: | [phone] | | | | | resulting | [phone] | Fax: | | | | | from | | [phone] | | | | | impaired | | | | | | | renal | | | | | | | function | | | | | | | Procedures | | | | | | | MO OFFICE | | | | | | | OUTPATIENT | | | | | | | VISIT 25 | | | | | | | MINUTES | | | | | | | [place] | | | | | | | REFERRAL | | | | | | | [phone] | | | | | | | 6 FOR | | | | | | | 01/03/14 AT | | | | | | | 1:30 PM | | | +--------+--------+ + + + + Encounter Details +--------+---------+ + + + | Date | Type | Department | Care Team | Description | +--------+---------+ + + + | 01/03/ | Office | [facility] | Mariana Cortez W, | CKD (chronic kidney | | 2014 | Visit | NEPHROLOGY [address] | [address] | disease) stage 3, | | | | [address] | [address] [place] | GFR 30-59 ml/min | | | | [place] | [place] [address] | (Primary Dx); | | | | [address] | [phone] | Hyperkalemia; | | | | [phone] | | Hypertension; DM | | | [...] + + + | Blood Pressure | 128/74 | 01/03/2014 1:30 PM | | | | | PST | | + + + + + | Pulse | 80 | 01/03/2014 1:30 PM | | | | | PST [...] + + + + | Weight | 97.1 kg (214 lb) | 01/03/2014 1:30 PM | | | | | PST | | + + + + + | Height | 160 cm (5' 3") | 01/03/2014 1:30 PM | | | | | PST | | + + + + + | Body Mass Index | 37.91 | 01/03/2014 1:30 PM | | | | | PST | | + + + + + documented in this encounter Progress Notes Mariana Cortez MD - 01/03/2014 1:54 PM PSTFormatting of this note might be different f rom the original. Nephrology Follow-up Visit Visit date: 01/03/2014 Primary care provider: Orin Snow HPI: July Forte is a 43 y.o. female with proteinuric chronic kidney disease, likely due to diabetic nephropathy, type 2 DM, hypertension, and obesity. This is a 6 month f/u visit. Pt reports feeling well. Denies polyuria, polydipsia. Pt is not aware of her glycemic control status. Pt was instructed to decrease Losartan to 50 mg QDAY on 12/27/13 due to hyperkalemia. Pt denies shortness of breath, chest pain, edema, abdominal pain, dysuria, hematuria, fever . ROS: A 6-system review was performed, and was negative or noncontributory other than as sta diego above. PMH: Patient Active Problem List Diagnosis Date Noted Renal tubular acidosis, type 4 DM type 2 (diabetes mellitus, type 2) 10/13/2012 Hypertension 10/13/2012 Proteinuria 10/13/2012 CKD (chronic kidney disease) stage 3, GFR 30-59 ml/min ([facility]) 10/13/2012 Note Last Updated: 10/13/2012 Renal ultrasound 09/16/12: right kidney 13 cm, left kidney 12.4 cm. Proteinuric. Migraine headache Outpatient Prescriptions Marked as Taking for the 11/25/14 encounter (Office Visit) with Geovani Cortez MD Medication Sig Dispense Refill Alcohol Swabs 70 % PADS by Does not apply route. amLODIPine (NORVASC) 5 mg tablet Take 5 mg by mouth Daily. B-D UF III MINI PEN NEEDLES 31G X 5 MM [facility] CROW CONTOUR TEST strip 4 strips Daily. [...] 5 mg by mouth Daily. losartan (COZAAR) 100 MG tablet Take 50 mg by mouth Daily. [DISCONTINUED] losartan (COZAAR) 50 mg tablet Take 50 mg by mouth Daily. metoprolol (TOPROL-XL) 100 MG 24 hr tablet Take 100 mg by mouth Daily. simvastatin (ZOCOR) 10 mg tablet Take 10 mg by mouth nightly. sitagliptin (JANUVIA) 50 MG tablet Take 50 mg by mouth Daily. TechLite Lancets [facility] Physical Exam: Filed Vitals: 01/03/14 1330 BP: 128/74 Pulse: 80 Height: 1.6 m (5' 3") Weight: 97.07 kg (214 lb) Constitutional: Appears well-developed and well-nourished. No distress. Cardiovascular: Normal rate, regular rhythm and normal heart sounds. No peripheral edema. Lungs: Respiratory effort normal and breath sounds normal. No crackles or wheezes. Abdominal: Soft. Bowel sounds are present. Neurological: Alert. Memory intact. Reviewed labs with patient. Office Visit on 01/03/2014 Component Date Value Range Status POC COLOR UA 01/03/2014 Yellow Final POC CLARITY UA 01/03/2014 Clear Final POC GLUCOSE UA 01/03/2014 >=1000 mg/dL Final POC BILIRUBIN UA 01/03/2014 Negative Final POC KETONES UA 01/03/2014 Negative Final POC SPECIFIC GRAVITY UA 01/03/2014 1.010 Final POC BLOOD UA 01/03/2014 Negative Final POC PH UA 01/03/2014 5.0 Final POC PROTEIN UA 01/03/2014 100 mg/dL Final POC UROBILINOGEN UA 01/03/2014 0.2 E.U./dL Final POC NITRITE UA 01/03/2014 Negative Final POC LEUKOCYTE ESTERASE UA 01/03/2014 Negative Final Abstract on 01/03/2014 Component Date Value Range Status Creatinine, External 01/02/2014 1.38 Final eGFR, External 01/02/2014 42 Final Sodium, External 01/02/2014 131 Final Potassium, External 01/02/2014 5.6 Final Chloride, External 01/02/2014 102 Final Carbon Dioxide, External 01/02/2014 19 Final Calcium, External 01/02/2014 9.5 Final Glucose, External 01/02/2014 360 Final BUN, External 01/02/2014 60 Final Abstract on 12/27/2013 Component Date Value Range Status Creatinine, External 12/26/2013 1.53* 0.6 - 1.35 Final eGFR, External 12/26/2013 37* 60 Final LDL Cholesterol, External 12/26/2013 - Final Cholesterol, Total, External 12/26/2013 283* 200 Final HDL Cholesterol, External 12/26/2013 40.4 40 Final Triglycerides, External 12/26/2013 475* 30 - 150 Final Sodium, External 12/26/2013 130* 132 - 143 Final Potassium, External 12/26/2013 5.8* 3.6 - 5.1 Final Chloride, External 12/26/2013 106 95 - 112 Final Carbon Dioxide, External 12/26/2013 22 19 - 31 Final Calcium, External 12/26/2013 9.3 8.4 - 10.2 Final Phosphorus, External 12/26/2013 3.8 2.5 - 5 Final Albumin, External 12/26/2013 3.6 3.5 - 5 Final Bilirubin, Total, External 12/26/2013 0.2 0 - 1.2 Final ALP, External 12/26/2013 87 30 - 128 Final AST, External 12/26/2013 7 7 - 52 Final ALT, External 12/26/2013 8 7 - 52 Final Glucose, External 12/26/2013 313* 70 - 100 Final BUN, External 12/26/2013 56* 6 - 23 Final ASSESSMENT AND PLAN: 1. Chronic kidney disease stage 3, proteinuric, likely due to diabetic nephropathy. Kidney function is decreased from baseline. Suspect due to relative hypovolemia related to hyperg lycemia. -need to improve glycemic control, serum glucose >300 on lab draws 2. Hypertension: Clinic BP is at goal. -on decreased dose of Losartan 50 mg QDAY (decreased from 100 mg due to hyperkalemia) -on low dose amlodipine -volume status: on bumetanide to prevent congestion 3. RTA type 4: Chronic hyperkalemia with mild non-gap metabolic acidosis. -need to improve glycemic control; relative hypoinsulinemia is likely responsible for curr ent serum potassium levels -maintain low potassium diet -if metabolic acidosis is persistent, may require sodium bicarbonate 4. DM type 2 / hyperglycemia: Last HbA1c 7.0% on 05/10/[address] Snow' record. However, r ecent values are very elevated, leading to hyponatremia and hyperkalemia. -pt will address with Dr. nSow on Thursday01/09/14 5. CKD-MBD: Serum calcium and phos levels are at goal. On vit D. 6. Hyperlipidemia: On simvastatin. Return in 6 months: renal, ua, urine prot/cr ratio. Dear. Dr. Snow, Ms. Forte is having high serum glucose levels. This is causing hyponatremia and hyperkale savanna. Patient will be seeing you on 01/09/14 to discuss improving glycemic control. Thank you so much! Mariana Cortez MD Cc: Dr. Orin Snow documented in this [...] [place] | | | | | | [address] | | | | | | | [...] | | | | | | [place] [address] | | | | | | [phone] | | | | | | | | +--------+ + + + + documented as of this encounter Procedures + +--------+ + + + | Procedure Name | Priori | Date/Time | Associated Diagnosis | Comments | | | ty | | | | + +--------+ + + + | LABS - EXTERNAL SCAN | | 07/19/2014 | | | | | | 12:00 AM | | | | | | PDT | | | + +--------+ + + + | POCT URINALYSIS, | Routin | 01/03/2014 | CKD (chronic | Results for this | | AUTO WITH CONF | e | 1:38 PM | kidney disease) | procedure are in the | | | | PST | stage 3, GFR 30-59 | results section. | | | | | ml/min | | + +--------+ + + + documented in this encounter Results POCT Urinalysis Dipstick Automated (01/03/2014 1:38 PM PST) + + + + + [...] + + | Glucose, | >=1000 mg/dL | | | | | UA, POC | | | | | + + + + + + | Bilirubin, | Negative | | | | | UA, POC | | | | | + + + + + + | Ketones, | Negative | | | | | UA, POC | | | | | + + + + + + | Specific | 1.010 | | | | | [place], | | | | | | UA, POC | | | | | + + + + + + | Blood, UA, | Negative | | | | | POC | | | | | + + + + + + | pH, UA, POC | 5.0 | | | | + + + + + + | Protein, | 100 mg/dL | | | | | UA, [...] + + + + | Leukocyte | Negative | | | | | Esterase, | [...] Stage III (moderate) | + + | Hyperkalemia Hyperpotassemia | + + | Hypertension Unspecified essential [...]
--- OUTSIDE RECORDS SUMMARY | ~2019-11-09 | XMS | Encounter Summary ---
Demographics + + + | Address | [address] | | | [place] [address] | + + + | Home Phone [...] Author + + + | Author | [facility] | | | and [place] | + + + | Organization | [facility] | | | [...] Team Providers + +------+ + | Care Fishing Tool Supervisor Name | Role | Phone | + +------+ + PCP | Unavailable | + +------+ + Reason for Visit +---------+--------+ + | Reason | Onset | Comments | | | Date | | +---------+--------+ + | Results | 10/18/ | | | | 2012 | | +---------+--------+ + Encounter Details +--------+ + + + + | Date | Type | Department | Care Team | Description | +--------+ + + + + | 10/18/ | Telephone | [facility] | Mariana Cortez W, | Results | | 2012 | | NEPHROLOGY [address] | MD [address] | | | | | [address] | [address] [facility] | | | | | [place] MD | [place] [address] | | | | | [address] | [phone] | | | | | [phone] | | | +--------+ + + + [...] Telephone Encounter - Ada Serrano RN - 10/19/2012 8:26 AM PDTPatient was called and given instructions per Dr. Cortez's note. Patient verbally expressed a clear understanding. P atient to repeat labs on 10/21/12. Medication's called into [facility]. Meredith ctronically signed by Ada Serrano RN at 10/19/2012 8:37 AM PDTTelephone Encounter - Mariana Griffin MD - 10/18/2012 4:48 PM PDTReviewed lab results from 10/14/12. 1. Hyperkalemia: Need to stop lisinopril till serum potassium normalizes. Will send prescr iption for kayaxelate 15 gm QDAY x 3 days. 2. Metabolic acidosis: Need to stop Janumet (contains metformin), and switch to just Januvi a 50 mg BID. Will send prescription for sodium bicarbonate 650 mg BID x 3 days. Called patient and left message (no answer). Will try to contact patient as soon as italia leung; [facility] documented in this encounter Plan of Treatment +--------+ + + + + | Date | Type | Specialty | Care Team | Description | +--------+ + + + + | 01/17/ | Appointment | Radiology | Bill Arevalo DNP | | | 2019 | | | [address] | | | | | | [place] | | | | | | [address] | | | | | | | | +--------+ + + + + | 01/17/ | Office | Vascular Surgery | Bill Arevalo DNP | | | 2019 | Visit | | [address] | | | | | | [place] | | | | | | [address] | | | | | | | | +--------+ + + + + | 05/22/ | Office | Nephrology | Mariana Cortez, | | | 2020 | Visit | | [address] | | | | | | [address] [place] | | | | | | [place] [address] | | | | | | [phone] | | | | | | | | +--------+ + + + + documented as of this encounter Visit Diagnoses + + | Diagnosis | + + | Hyperkalemia - Primary Hyperpotassemia | + + documented in this encounter"
--- OUTSIDE RECORDS SUMMARY | ~2019-11-09 | XMS | Encounter Summary ---
Demographics + + + | Address | [address] | | | [place] [address] | + + + | Home Phone [...] Team Providers + +------+ + | Care Learning Engineer Name | Role | Phone | [...] | | | rhinitis due | [place] [address] | [address] Phone: | | | | | to animal | Phone: | [phone] | | | | | (cat) (dog) | [phone] | Fax: | | | | | hair and | Fax: | [phone] | | | | | dander | [phone] | | | | | | Allergic [...] | +--------+ + + + + | 12/25/ | Clinical | [facility] [place] | Henok Luther MD | Non-seasonal | | 2016 | Support | OTOLARYNGOLOGY [address] | [address] | allergic rhinitis | | | | [address] | [address] [place] | due to pollen | | | | [place], [place] | [address] | (Primary Dx); | | | | [address] | | Allergic rhinitis | | | | [phone] | | due to animal (cat) | [...] encounter Progress Notes Modesta Benitez RN - 12/26/2015 3:51 PM PSTPatient presents with epi-pen & inhaler . No active wheezing or cough associated with asthma today. Denies delayed reaction from pre vious allergy injection. No fever or allergy related rash. No recent heavy exposure to aller gens. No plans for strenuous exercise immediately before or after injection today.Electronic ally signed by Modesta Benitez RN at 12/26/2015 4:20 PM PSTdocumented in this encoun ter Plan [...] [place] | | | | | | [id number] | | | | | | | | +--------+ + + + + | 01/17/ | Office | Vascular Surgery | Bill Arevalo DNP | | 2019 | Visit | | [address] | | | | | | [place] | | | | | | [address] | | | | | | | | +--------+ + + + + | 05/22/ | Office | Nephrology | Mariana Cortez, | | | 2020 | Visit | | [address] | | | | | | [address] [place] | | | | | | [place] [address] | | | | | | [phone] | | | | | | | [...]
--- OUTSIDE RECORDS SUMMARY | ~2019-11-09 | XMS | Encounter Summary ---
Demographics + + + | Address | [address] | | | [place] [address] | + + + | Home Phone [...] Author | [facility] | | | and [place] | + [...] Team Providers + +------+ + | Care Salad Maker Name | Role | Phone | [...] [facility] [address] | unspecified asthma | | | | [address] | [address] [place], [place] | severity, | | | | [place], [place] | [address] | unspecified whether | | | | [address] | | complicated, | | | | [phone] | | unspecified whether | | | [...] encounter Progress Notes Domenica Meredith RN - 06/25/2017 3:30 PM PDTPatient presents with epi-pen & inhaler. No ac tive wheezing or cough associated with asthma today. Denies delayed reaction from previous a llergy injection. No fever or allergy related rash. No recent heavy exposure to allergens. N o plans for strenuous exercise immediately before or after injection today.Electronically si gned by Domenica Meredith RN at 06/25/2017 3:44 PM PDTdocumented in this encounter Plan of [...] [place] | | | | | | [address] | | | | | | | | +--------+ + + + + | 01/17/ | Office | Vascular Surgery | Bill Arevalo DNP | | | 2019 | Visit | | [address] | | | | | | [place] | | | | | | [address] | | | | | | | | +--------+ + + + + | 05/22/ | Office | Nephrology | Mariana Cortez W, | | | 2020 | Visit | | [address] | | | | | | [address] [place] | | | | | | [place] [address] | | | | | | [phone] | | | | | | | [...]
--- OUTSIDE RECORDS SUMMARY | ~2019-11-09 | XMS | Encounter Summary ---
Demographics + + + | Address | [address] | | | [place] [address] | + + + | Home Phone [...] Team Providers + +------+ + | Care Regional Ehs Manager Name | Role | Phone | + +------+ + | Mehrdad Avalos MD | PCP | | + +------+ + Encounter Details +--------+ + + + + | Date | Type | Department | Care Team | Description | +--------+ + + + + | 09/27/ | Orders Only | [facility] | Jamie Cunningham, | PAD (peripheral | | 2019 | | VASCULAR SURGERY | [facility] [address] | artery disease) | | | | [address] | [address] [place], | ([facility]) (Primary Dx) | | | | [place], [place] | [place] [address] | | | | | [address] | [phone] | | | | | [phone] | | | +--------+ + + + [...] [place] | | | | | | [address] | | | | | | | [...] | | | | | [place] [address] | | | | | | [phone] | | | | | | | | +--------+ + + + + documented as of this encounter Visit Diagnoses + + | Diagnosis | + + | PAD (peripheral artery disease) (HCC) - Primary Unspecified disorders of arteries and | | arterioles | + + documented in this encounter"
--- OUTSIDE RECORDS SUMMARY | ~2019-11-09 | XMS | Encounter Summary ---
Demographics + + + | Address | [address] | | | [place] [address] | + + + | Home Phone [...] Team Providers + +------+ + | Care Plant Biology Professor Name | Role | Phone | [...] | | | rhinitis due | [place] [address] | [address] Phone: | | | | | to animal | Phone: | [phone] | | | | | (cat) (dog) | [phone] | Fax: | | | | | hair and | Fax: | [phone] | | | | | dander | [phone] | | | | | | Allergic | | | | | | | rhinitis due | | | | | | | to dust | | | | | | | Procedures | | | | | | | NC | | | | | | | IMMUNOTHERAP | | | | | | | Y, ONE | | | | | | | INJECTION | | | | | | | NC | | | | | | | IMMUNOTHERAP | | | | | | | Y, 2+ | | | | | | | INJECTIONS | | | | | | | NC PROFES | | | | | | | SVC,IMMUNOTH | | | | | | | ER,SINGLE/MU | | | | | | | LT AGS | | | +--------+ + + + + + Reason for Visit + + + | Reason | Comments | + + + | Allergies | | + + + | Allergy Testing | | + + + Evaluate & Treat (Routine) +--------+ + + + + + | Status | Reason | Specialty | Diagnoses / | Referred By | Referred To | | | | | Procedures | Contact | Contact | +--------+ + + + + + | Closed | Specialty | Otolaryngolog | Diagnoses | Ashkan, | Henok Luther | | | Services [...] | | | rhinitis due | [place] [address] | [address] Phone: | | | | | to animal | Phone: | [phone] | | | | | (cat) (dog) | [phone] | Fax: | | | | | hair and | Fax: | [phone] | | | | | dander | [phone] | | | | | | Allergic | | | | | | | rhinitis due | | | | | | | to dust | | | | | | | Procedures | | | | | | | NC | | | | | | | PERCUTANEOUS | | | | | | | TESTS | | | | | | | W/ALLERGENIC | | | | | | | EXTRACTS | | | | | | | NC | | | | | | | INTRACUTANEO | | | | | | | US TESTS | | | | | | | W/ALLERGENIC | | | | | | | EXTRACTS | | | | | | | NC | | | | | | | IMMUNOTHERAP | | | | | | | Y, ONE | | | | | | | INJECTION | | | | | | | NC PROFES | | | | | | | SVC,IMMUNOTH | | | | | | | ER,SINGLE/MU | | | | | | | LT AGS | | | +--------+ + + + + + Encounter Details +--------+---------+ + + + | Date | Type | Department | Care Team | Description | +--------+---------+ + + + | 01/17/ | Office | [facility] | Henok Luther MD | Allergic rhinitis | | 2015 | Visit | OTOLARYNGOLOGY [address] | [address] | due to pollen | | | | [address] | [address] [place], [place] | (Primary Dx); | | | | [place], [place] | [address] | Allergic rhinitis | | | | [address] | | due to animal (cat) | | | | [phone] | | (dog) hair and | | | | | | dander; Allergic | | | | | | rhinitis due to dust | +--------+---------+ + + + Social History [...] encounter Progress Notes Modesta Benitez RN - 01/17/2015 4:47 PM PSTConsent for Allergy testing and Immunot herapy signed. Patient did discontinue allergy medications 6 days prior to testing. MQT wit h 41 and Intradermal Allergy testing, with 41 allergens completed. Completed testing in thre e rounds. Patient tolerated well. Shows higher (dilutions 3-6) sensitivity to Pigweed, Russi an Thistle, Sagebrush, Atriplex, # 7 Grass Mix,Mcduffie, Sanderson, Ida, Western Prim. [place] Mark Anthony, Juniper, Farinae Mite, Pteronyssinus Mite, Mucor, Rhodotorula, Grain Smut and Co ckroach. Shows lower (dilutions Concentrate - 2) sensitivity to Kochia, Lambs Quarters, Mar sh Elder, Citizen Of [place] Plantain, False Ragweed, Dandelion, Bermuda Grass, Sameer Grass, Black Wa lnut, [place] Citizen [place], Penicillium, Biporlaris Sork., Pullans, Grass Smut and Mixed Feathers. If patient decides to start immunotherapy, will not be treating patient for Ragweed, Sheep [place], [place] Mix, Sugar Maple, Spring Birch, White Tae, Dog, Alternaria, Aspergillus, Clad osporium, Phoma, Fusarium and Paecilomyces. Patient has not had previous allergy testing or immunotherapy. Patient denies food allergie s. Patient denies allergy to smoke. Patient's medication allergies - Furosemide . Patient de nis allergy to animals. Patient does not have any animals. Allergy symptoms are seasonal. Wh en season changes to fall around Round-up time she starts having allergy symptoms but winter is when she has her worst symptoms. When late spring comes her allergy symptoms decrease. S ymptoms developed 6 years ago . Patient denies family history of allergies. Patient denies h istory of asthma. Patient has lived in this area 40 years. She moved from [facility] at 4 years old. Symptoms of pollen allergies are aggravated when its wind and between the hours of 7 am- 11 am her allergy related cough becomes worse. Symptoms present with itching, watery eyes . Sy mptoms of dust allergies reoccur or increase with return of cold weather, Patient's allergy related cough becomes worse once she has gone to bed. Symptoms also increase when she is maude ing leaves. Symptoms of mold allergies increased by cool evening air and definitely increase around mid October. Patient cannot mow the grass because in increases her allergy symptom s. Patient has higher degree of itchy,watery swelling eyes, runny or congested nos, post kamla al drip and allergy related cough and lower degree of ears symptoms and she rarely has aller gy related sneezing Patient has such a bad cough last year she became hoarse most of the win ter and she could hardly talk. "How to Allergy Proof Your Home" was watched and patient demonstrated how to use an Epi - P en. Allergy questions answered. Told patient will order epi pen today. Patient would like to start immunotherapy. Education material was reviewed and given to patient regarding allergi es, immunotherapy and Allergy Clinic hours. documented in this encounter Plan of Treatment +--------+ + + + + | Date | Type | Specialty | Care Team | Description | +--------+ + + + + | 01/17/ | Appointment | Radiology | Bill Arevalo DNP | | | 2019 | | | [address] | | | | | | [place], [place] | | | | | | [id number] | | | | | | | | +--------+ + + + + | 01/17/ | Office | Vascular Surgery | Bill Arevalo DNP | | | 2019 | Visit | | [address] | | | | | | [place] | | | | | | [address] | | | | | | | | +--------+ + + + + | 05/22/ | Office | Nephrology | Mariana Cortez, | | | 2020 | Visit | | MD [address] | | | | | | [address] [place] | | | | | | [place] [address] | | | | | | [phone] | | | | | | | | +--------+ + + + + + + +--------+ + + | Name | Type | Priori | Associated Diagnoses | Order Schedule | | | | ty | | | + + +--------+ + + | INTRACUT TEST | Procedures | Routin | Allergic rhinitis | Ordered: 01/18/2015 | | W/ALLERGENIC | | e | due to pollen | | | EXTRACTS, IMMEDIATE | | | Allergic rhinitis | | | REACTION | | | due to animal (cat) | | | | | | (dog) hair and | | | | | | dander Allergic | | | | | | rhinitis due to dust | | + + +--------+ + + + + +--------+ + + [...] allergen | + + documented in this encounter
--- OUTSIDE RECORDS SUMMARY | ~2019-11-09 | XMS | Encounter Summary ---
Demographics + + + | Address | [address] | | | [place] [address] | + + + | Home Phone [...] Team Providers + +------+ + | Care Punchboard Stuffer Name | Role | Phone | + [...] | | | | | | | (HCC) | | | | | | [...] + + | 09/27/ | Hospital | [facility] | Iva Hardwick, | Pre-op testing | | 2020 | Encounter | [facility] | MD Nga TODD | | | | | ELECTRODIAGNOSTICS | [place] [address] | | | | | [address] | [phone] | | | | | [place], [place] | | | | | | [address] | | | | | | [phone] | | | +--------+ + + + [...] + + + +---------+ + + | Keshav Shipley | | | 0 | 09/09/19 | [...] [place] | | | | | | [address] | | | | | | | | +--------+ + + + + | 01/17/ | Office | Vascular Surgery | Bill Arevalo DNP | | | 2019 | Visit | | [address] | | | | | | [place] | | | | | | [address] | | | | | | | | +--------+ + + + + | 05/22/ | Office | Nephrology | Mariana Cortez, | | | 2020 | Visit | | MD [address] | | | | | | [address] [place] | | | | | | [place] [address] | | | | | | [phone] | | | | | | | | +--------+ + + + + documented as of this encounter Procedures + +--------+ + + + | Procedure Name | Priori | Date/Time | Associated Diagnosis | Comments | | | ty | | | | + +--------+ + + + | ECG 12 LEAD | Routin | 09/28/2019 | Pre-op testing | Results for this | | | e | 10:02 AM | | procedure are in the | | | | PDT | | results section. | + +--------+ + + + documented in this encounter Results ECG 12 lead (09/28/2019 [...] Diagnosis | + + | Pre-op testing Preoperative examination, unspecified | + + documented in this encounter"
--- OUTSIDE RECORDS SUMMARY | ~2019-11-09 | XMS | Encounter Summary ---
Demographics + + + | Address | [address] | | | [place] [address] | + + + | Home Phone [...] Team Providers + +------+ + | Care Scallop Binder Name | Role | Phone | + [...] | | | | severity, | [place] [address] | [address] Phone: | | | | | uncomplicate | Phone: | [phone] | | | | | d | [phone] | Fax: | | | | | Non-seasonal | Fax: | [phone] | | | | | allergic | [phone] | | | | | | rhinitis [...] | +--------+ + + + + | 07/31/ | Clinical | [facility] [place] | Henok Luther MD | Allergic rhinitis | | 2017 | Support | OTOLARYNGOLOGY [address] | [address] | due to dust mite | | | | [address] | [address] [place] | (Primary Dx); | | | | [place] | [address] | Allergic rhinitis | | | | [address] | | due to animal (cat) | | | | [phone] | | (dog) hair and | | | | | | dander; Non-seasonal | | | | | | allergic rhinitis | | | | | | due to pollen; | | | | | | Uncomplicated [...] encounter Progress Notes Modesta Benitez RN - 07/31/2016 4:15 PM PDTPatient presents with epi-pen & inhaler . No active wheezing or cough associated with asthma today. Denies delayed reaction from pre vious allergy injection. No fever or allergy related rash. No recent heavy exposure to aller gens. No plans for strenuous exercise immediately before or after injection today.Electronic ally signed by Modesta Benitez RN at 07/31/2016 4:33 PM PDTdocumented in this encoun ter Plan [...] [place] | | | | | | [address] | | | | | | | | +--------+ + + + + | 01/17/ | Office | Vascular Surgery | Bill Arevalo DNP | | | 2019 | Visit | | [address] | | | | | | [place] | | | | | | [address] | | | | | | | | +--------+ + + + + | 05/22/ | Office | Nephrology | Mariana Cortez W, | | | 2020 | Visit | | MD [address] | | | | | | [address] | | | | | | [place] [address] | | | | | | [phone] | | | | | | | [...] mite - Primary | + + | Allergic rhinitis due to animal (cat) (dog) hair and dander | + + | Non-seasonal allergic rhinitis due to pollen | + + | Uncomplicated asthma, unspecified asthma severity | + + documented in this encounter"
--- OUTSIDE RECORDS SUMMARY | ~2019-11-09 | XMS | Encounter Summary ---
Demographics + + + | Address | [address] | | | [place] [address] | + + + | Home Phone [...] Team Providers + +------+ + | Care Luggage Attendant Name | Role | Phone | + +------+ + | Ronel Jacobson PA-C | PCP | | + +------+ + Reason for Visit + + + | Reason | Comments | + + + | Chronic Kidney | 6 month follow-up | | Disease, Stage III | | + + + Evaluate & Treat (Routine) +--------+--------+ + + + + | Status | Reason | Specialty | Diagnoses / | Referred By | Referred To | | | | | Procedures | Contact | Contact | +--------+--------+ + + + + | Closed | | Nephrology | Diagnoses | Kavon, | [place], | | | | | | Ronel H, | [place] W, | | | | | Hypertension | PA-C 0 | MD [address] | | | | | Proteinuria | [place] | [place] [address] | | | | | Chronic | [address] | [place], | | | | | kidney | [facility] | [place] [address] | | | | | disease, | [place] | Phone: | | | | | stage 3 | [address] | [phone] | | | | | (moderate) | Phone: | Fax: | | | | | (HCC) Renal | [phone] | [phone] | | | | | tubular | Fax: | | | | | | acidosis, | [phone] | | | | | | type 4 | | | | | | | Procedures | | | | | | | MA OFFICE | | | | | | | OUTPATIENT | | | | | | | VISIT 25 | | | | | | | MINUTES | | | +--------+--------+ + + + + Encounter Details +--------+---------+ + + + | Date | Type | Department | Care Team | Description | +--------+---------+ + + + | 11/12/ | Office | [facility] | Mariana Cortez W, | CKD (chronic kidney | | 2016 | Visit | NEPHROLOGY [address] | [address] | disease) stage 3, | | | | [address] | [address] [place] | GFR 30-59 ml/min | | | | [place] | [place] [address] | ([facility]) (Primary Dx); | | | | [address] | [phone] | Essential | | | | [phone] | | hypertension; Type 2 | | | | | | diabetes mellitus; | | | | | | Renal [...] + + + | Blood Pressure | 138/90 | 11/13/2015 11:33 AM | | | | | PDT | | + + + + + | Pulse | 88 | 11/13/2015 11:33 AM | | | | | PDT [...] Weight | 90.3 kg (199 lb) | 11/13/2015 11:33 AM | | | | | PDT | | + + + + + | Height | - | - | | + + + + + | Body Mass Index | 35.25 | 07/11/2015 10:43 AM | | | | | PDT | | + + + + + documented in this encounter Progress Notes Mariana Cortez MD - 11/13/2015 11:57 AM PDTFormatting of this note might be different f rom the original. Nephrology Follow-up Visit Visit date: 11/13/2015 Primary care provider: Ronel Jacobson PA-C Follow-up type: 8 months HPI: July Forte is a 45 y.o. female with chronic kidney disease, RTA type 4, hyperte nsion, type 2 diabetes mellitus. Pt is feeling well. No shortness of breath, chest pain, edema, dysuria, hematuria. Pt is receiving allergy injections from Dr. Luther. Using inhalers PRN. Occasional tobacco use. Pt has not been taking her long-acting insulin. Pt states the Januvia is causing diarrhea - pt is planning on stopping it. Pt reports glipizide was causing GI upset as well; pt was switched to glyburide, which she is tolerating. Morning blood sugar levels are <150. ROS: A 6-system review was performed, and was negative or noncontributory other than as sta diego above. PMH: Patient Active Problem List Diagnosis Date Noted Renal tubular acidosis, type 4 DM type 2 (diabetes mellitus, type 2) ([facility]) 10/13/2012 Hypertension 10/13/2012 Proteinuria 10/13/2012 CKD (chronic kidney disease) stage 3, GFR 30-59 ml/min ([facility]) 10/13/2012 Note Last Updated: 10/13/2012 Renal ultrasound 09/16/12: right kidney 13 cm, left kidney 12.4 cm. Proteinuric. Migraine headache Current Outpatient Prescriptions Medication Sig albuterol 90 mcg/puff inhaler Inhale 2 puffs into the lungs 4 times daily. Alcohol Swabs 70 % PADS by Does not apply route. amLODIPine (NORVASC) 5 mg tablet Take 10 mg by mouth Daily. B-D UF III MINI PEN NEEDLES 31G X 5 MM [facility] CROW CONTOUR TEST strip 4 strips Daily. Blood Glucose Monitoring Suppl (CONTOUR BLOOD GLUCOSE SYSTEM) JOANNA by Does not apply [place]. bumetanide (BUMEX) 0.5 mg tablet Take 2 mg by mouth Daily. cholecalciferol (VITAMIN D-3) 5000 UNITS TABS Take 2,000 Units by mouth Daily. cyanocobalamin (VITAMIN B-12) 500 mcg tablet Take 1,000 mcg by mouth Daily. EPIPEN 2-IGNACIO 0.3 MG/0.3ML injection Inject 0.3 mLs into the muscle as needed for Anaphy laxis. fexofenadine (WALT) 180 mg tablet Take 180 mg by mouth Daily as needed. fluticasone (FLONASE) 50 mcg/nasal spray 1 spray by Nasal route 2 times daily. folic acid 1 mg tablet Take 1 mg by mouth Daily. glyBURIDE (DIABETA) 5 mg tablet Take 10 mg by mouth daily (with breakfast). insulin glargine (LANTUS SOLOSTAR) 100 units/mL injection (pen) Inject 20 Units under t he skin nightly. losartan (COZAAR) 100 MG tablet Take 25 mg by mouth Daily. rosuvastatin (CRESTOR) 20 mg tablet Take 20 mg by mouth nightly. Keshav Shipley [facility] No current facility-administered medications for this visit. Physical Exam: Filed Vitals: 11/13/15 1133 BP: 138/90 Pulse: 88 Weight: 90.266 kg (199 lb) Constitutional: Appears well-developed and well-nourished. No distress. Cardiovascular: Normal rate, regular rhythm and normal heart sounds. No peripheral edema. Lungs: Respiratory effort normal and breath sounds normal. Expiratory wheezes. Abdominal: Soft. Bowel sounds are present. Skin: Skin is warm. Neurological: Alert. Memory intact. Reviewed labs with patient. Office Visit on 11/13/2015 Component Date Value Ref Range Status Color, UA, POC 11/13/2015 Yellow Yellow, Light Yellow Final Clarity, UA, POC 11/13/2015 Cloudy Final Glucose, UA, POC 11/13/2015 Negative Negative Final Bilirubin, UA, POC 11/13/2015 Negative Negative Final Ketones, UA, POC 11/13/2015 Negative Negative, 100 mg/dL Final Specific [place], UA, POC 11/13/2015 1.010 1.001 - 1.030 Final Blood, UA, POC 11/13/2015 Large* Negative Final pH, UA, POC 11/13/2015 5.0 5.0, 6.0, 7.0, 8.0, 5.5, 6.5, 7.5 Final Protein, UA, POC 11/13/2015 >=300 mg/dL* Negative Final Urobilinogen, UA, POC 11/13/2015 0.2 0.2, Negative, Normal, < 0.2 mg/dL, 1 mg/dL, < 0. 2 E.U./dl, 1.0 E.U./dL, 0.2 mg/dL Final Nitrite, UA, POC 11/13/2015 Negative Negative Final Leukocyte Esterase, UA, POC 11/13/2015 Large* Negative Final Abstract on 11/12/2015 Component Date Value Ref Range Status Creatinine, External 11/09/2015 1.24* 0.5 - 1 Final eGFR, External 11/09/2015 53 Final Sodium, External 11/09/2015 141 135 - 145 Final Potassium, External 11/09/2015 5.4* 3.5 - 5.3 Final Chloride, External 11/09/2015 112* 99 - 109 Final Carbon Dioxide, External 11/09/2015 24 22 - 31 Final Calcium, External 11/09/2015 9 8.5 - 10.2 Final Phosphorus, External 11/09/2015 4.1 2.3 - 4.8 Final Albumin, External 11/09/2015 3* 3.5 - 4.7 Final Glucose, External 11/09/2015 157* 65 - 99 Final BUN, External 11/09/2015 39* 8 - 25 Final ASSESSMENT AND PLAN: ICD-10-CM ICD-9-CM 1. CKD (chronic kidney disease) stage 3, GFR 30-59 ml/min ([facility]) N18.3 585.3 Likely due to d iabetic nephropathy. -Kidney function is around baseline. 2. Essential hypertension I10 401.9 Clinic BP is acceptable. Unable to up-titrate Losartan due to hyperkalemia. No edema. -Advised pt to exercise / walk daily 3. Type 2 diabetes mellitus E11.22 250.40 Pt will d/c Januvia - due to GI side effects. N18.3 585.3 Pt will continue Glyburide. Pt will start back up on Lantus Solostar, and f/u with primary care provider. 4. Renal tubular acidosis, type 4 N25.89 588.89 Serum bicarbonate level is at goal. Serum potassium is within baseline. -Low potassium diet Return in 6 months: renal, ua, upcr. [...] [place] | | | | | | [address] | | | | | | | | +--------+ + + + + | 01/17/ | Office | Vascular Surgery | Bill Arevalo DNP | | | 2019 | Visit | | [address] | | | | | | [place] | | | | | | [address] | | | | | | | | +--------+ + + + + | 05/22/ | Office | Nephrology | Mariana Cortez, | | | 2020 | Visit | | [address] | | | | | | [address] [place] | | | | | | [place] [address] | | | | | | [phone] | | | | | | | | +--------+ + + + + documented as of this encounter Procedures + +--------+ + + + | Procedure Name | Priori | Date/Time | Associated Diagnosis | Comments | | | ty | | | | + +--------+ + + + | LABS - EXTERNAL SCAN | | 02/21/2016 | | Results for this | | | | 12:00 AM | | procedure are in the | | | | PST | | results section. | + +--------+ + + + | POCT URINALYSIS | Routin | 11/13/2015 | CKD (chronic | Results for this | | DIPSTICK | e | 11:26 AM | kidney disease) | procedure are in the | | | | PDT | stage 3, GFR 30-59 | results section. | | | | | ml/min (HCC) | | + +--------+ + + + | LABS - EXTERNAL SCAN | | 11/09/2015 | | Results for this | | | | 12:00 AM | | procedure are in the | | | | PDT | | results section. | + +--------+ + + + documented in this encounter Results LABS - EXTERNAL SCAN (02/21/2016 12:00 AM PST) + + + | Narrative | Performed At | + + + | Ordered by an | | | unspecified provider. | | + + + POCT Urinalysis Dipstick Non-Automated (11/13/2015 11:26 AM PDT) + + + + + [...] 1.001 - 1.030 | | | | [place], | | | | | | UA, [...] | + + LABS - EXTERNAL SCAN (11/09/2015 12:00 AM PDT) + + + | Narrative | Performed At | + + + | Ordered by an | | | unspecified provider. | | + + + documented in this encounter Visit Diagnoses + + | Diagnosis | + + | CKD (chronic kidney disease) stage 3, GFR 30-59 ml/min ([facility]) - Primary Chronic kidney | | disease, Stage III (moderate) | + + | Essential hypertension Unspecified essential hypertension | + + | Type 2 diabetes mellitus | + + | Renal tubular acidosis, type 4 Other specified disorders resulting from impaired | | renal function | + + documented in this encounter"
--- OUTSIDE RECORDS SUMMARY | ~2019-11-09 | XMS | Encounter Summary ---
Demographics + + + | Address | [address] | | | [place] [address] | + + + | Home Phone [...] Author + + + | Author | [facility] | | | and [place] | + + + | Organization | [facility] | | | [...] Team Providers + +------+ + | Care Systems Design Engineer Name | Role | Phone | [...] | | | | to pollen | [place] [address] | [address] Phone: | | | | | Allergic | Phone: | [phone] | | | | | rhinitis due | [phone] | Fax: | | | | | to dust | Fax: | [phone] | | | | | Mild | [phone] | | | | | | intermittent [...] | +--------+ + + + + | 01/07/ | Clinical | [facility] | Henok Luther MD | Extrinsic asthma, | | 2018 | Support | [address]ARYNGOLOGY [address] | [address] | unspecified asthma | | | | [address] | [address] [place] | severity, | | | | [place] | [address] | unspecified whether | | | | [address] | | complicated, | | | | [phone] | | unspecified whether | | | [...] encounter Progress Notes Domenica Meredith RN - 01/07/2018 4:00 PM PSTPatient presents with epi-pen & inhaler. No ac tive wheezing or cough associated with asthma today. Denies delayed reaction from previous a llergy injection. No fever or allergy related rash. No recent heavy exposure to allergens. N o plans for strenuous exercise immediately before or after injection today.Electronically si gned by Domenica Meredith RN at 01/07/2018 4:10 PM PSTdocumented in this encounter Plan of [...] [place] | | | | | | [address] | | | | | | | | +--------+ + + + + | 05/22/ | Office | Nephrology | Mariana Cortez, | | | 2020 | Visit | | MD [address] | | | | | | [address] [place] | | | | | | [place] [address] | | | | | | [phone] | | | | | | | [...]
--- OUTSIDE RECORDS SUMMARY | ~2019-11-09 | XMS | Encounter Summary ---
Demographics + + + | Address | [address] | | | [place] [address] | + + + | Home Phone [...] Team Providers + +------+ + | Care Closet Builder Name | Role | Phone | + [...] | | | | | | NE REPAIR OF | | | | | | | NASAL | | | | | | | SEPTUM NE | | | | | | [...] Description | +--------+---------+ + + + | 02/24/ | Surgery | [facility] | Henok Dean MD | Septoplasty, | | 2018 | | MED CTR OR INTRA OP | [address] [place] | Inferior | | | | [address] | [address] [place], [place] | Turbinoplasty | | | | [place], [place] | [address] | | | | | [address] | | | | | | [phone] | | | +--------+---------+ + + + [...] + + + | Blood Pressure | 136/80 | 02/24/2017 11:35 AM | | | | | PST | | + + + + + | Pulse | 101 | 02/24/2017 11:35 AM | | | | | PST [...] + + + | Oxygen Saturation | 95% | 02/24/2017 11:35 AM | | | | | PST [...] might be different fr om the original. Faber nose as needed with yury-synephrine for bleeding [...] any questions or concerns. Date Last Reviewed: 12/11/201519997510-1960 [employer] [address] [place] [address]. All righ ts reserved. This information is [...] Henok Dean MD - 02/24/2017 9:57 AM PST SURGICAL INTERIM HISTORY AND PHYSICAL UPDATE Pt. [...] signed by: Henok Dean MD, 02/24/2017 9:57 [facility] signed by Henok Dean MD at 2017 9:57 AM Henok Quiroz MD - 02/19/2017 3:53 PM PST H&P [...] other ENT complaints at the current [facility]. Old chart reviewed and no change in medications, allergies, or review of systems. PAST MEDICAL HISTORY: Past Medical History: Diagnosis Date Chronic kidney disease COPD (chronic obstructive pulmonary disease) ([facility]) 09/08/2012 Diabetes mellitus ([facility]) 02/23/1998 Edema 09/08/2012 Hypertension 09/08/2012 Rash PAST [...] MINI PEN NEEDLES 31G X 5 MM [facility] Trippin In CONTOUR TEST strip 4 strips Daily. Blood Glucose Monitoring Suppl (CONTOUR BLOOD GLUCOSE SYSTEM) JOANNA by Does not apply ro ak chin. bumetanide (BUMEX) 0.5 mg tablet Take 2 [...] mouth Daily. 90 tablet 3 [employer]ite Lancets [facility] No current facility-administered medications [...] Henok Dean MD - 02/24/2017 10:58 AM PST [address] [address] OPERATIVE REPORT EHNOK DEAN MD Patient: MARYAM FORTE Admitting: HENOK DEAN MR #: [id number] LOC: PT TYPE: Adm Date: 02/24/2017 : [...] tips of the inferior turbinates bilaterally. The [place] elevator was used to dissect medially. Following [...] 02/24/2017 10:58:14 Transcribed on 02/24/2017 19:26:01 by [facility] job# [id number] Confirmation #: [id number] cc: ALFREDO CURRAN-C P STOp Note - Henok Dean MD - 02/24/2017 10:53 AM PSTSee dictation #[id number] s igned by Henok Dean MD at 02/24/2017 10:58 AM PSTBrief Op Note - Henok Dean MD - 02/09 10:53 AM PST Brief Operative Note Maryam Forte 46 y.o. female 1970 [id number] Proc. Date 02/24/2017 Preop Dx Deviated nasal septum (J34.2), Hypertrophy of nasal turbinates (J34.3), Acute non seasonal allergic rhinitis due to pollen (J30.1) Postop Dx same Procedure Septoplasty, Inferior Turbinoplasty - Septoplasty, Inferior Turbinoplasty Anesthesia General Surgeon Henok Dean MD - Primary Technology Analyst EBL less than 50 mL Findings Findings consistent with scheduled procedure. No other abnormalities found. Complications none Specimens * No specimens in log * Drains Electronically signed by: Henok Dean MD 02/24/2017 10:53 [facility] SERVICES[facility] signed by Henok Dean MD at 2017 [...] [place] | | | | | | [phone] | | | | | | | [...] [place] | | | | | | [place] [address] | | | | | | [phone] | | | | | | | [...] | 1.010, 1.015, | | | | [place], | | 1.020, 1.025 | | | | POC | | | | | + + + + + + | Lot Number | [id number] | | | | + + + [...] | | POC | | | [facility] | | [...] | + + + + + | [facility] | [address] | [place] | [phone] | | [facility] | | [address] | | | - LABORATORY | | | | + + + + + ECG - EXTERNAL SCAN (02/23/2017 12:00 AM PST) + + + | Narrative | Performed At | + + + | Ordered by an | | | unspecified provider. | | + + + documented in this encounter Visit Diagnoses Not on filedocumented in this encounter Administered Medications + +--------+---------+------+------+------+ [...] | | | + +---+ + +-------+ +-------+---+ + | cocaine 4% topical solution 4 | Given | 02/24/19 | 4 mLs | | Surgical | | mL 4 mL, Topical, Prior to | | 18 10:28 | | | Site | | Incision, Starting 02/24/17 at | | AM PST | | | | | 0925, For 1 dose, For topical | | | | | | | use on pledgets intranasally, | | | | | | | Pre-op | | | | | | + +-------+ +-------+---+ + + +---+ | | | + +---+ [...] direction of physician, Starting | | | 02/24/17 at 0925, For 4 doses, | | | Max total dose 100 mcg., Pre-op | | + +---+ | | | + +---+ | fentaNYL (PF) injection 25-50 | | | mcg 25-50 mcg, Intravenous, | | | EVERY 5 MIN PRN, Pain, Starting | | | 02/24/17 at 1046, Maximum | | | total [...] MIN PRN, | | | Pain, Starting 02/24/17 at | | | 1046, Maximum total [...] | mL/hr | | | CONTINUOUS, Starting e 02/24/17 | | AM PST | | | | | at 0945, TKO., Pre-op | | | | | | + +---------+ +---+-------+---+ +---+---+ | | | +---+---+ + +-------+ +-------+---+ + | lidocaine 1%-EPINEPHrine | Given | 02/24/19 | 7 mLs | | Surgical | | 1:100,000 injection PRN, | | 18 10:28 | | | Site | | Starting [facility] 02/24/17 at 1028, | | AM PST | | | | | Intra-op | | | | | | + +-------+ +-------+---+ + + +---+ | | | + +---+ | meperidine (DEMEROL) injection | | | 12.5-25 mg 12.5-25 mg, | | | Intravenous, PRN, Shivering, | | | Starting e 02/24/17 at 1046, For | | | [...] +---+---+ + +-------+ + +---+ + | phenylephrine (YURY-SYNEPHRINE) | Given | 02/24/19 | 2 sprays | | Surgical | | 0.5% nasal spray PRN, Starting | | 18 10:28 | | | Site | | 02/24/17 at 1028, Intra-op | | AM PST | | | | + +-------+ + +---+ + +---+---+ | | | +---+---+ documented in this encounter
--- OUTSIDE RECORDS SUMMARY | ~2019-11-09 | XMS | Encounter Summary ---
Demographics + + + | Address | [address] | | | [place] [address] | + + + | Home Phone [...] Team Providers + +------+ + | Care Staffing Assistant Name | Role | Phone | [...] [address] [place] | | | | | [place], [place] | [place] [address] | | | | | [address] | [phone] | | | | | [phone] | | | +--------+ + + + [...] [place] | | | | | | [address] | | | | | | | | +--------+ + + + + | 01/17/ | Office | Vascular Surgery | Bill Arevalo DNP | | | 2019 | Visit | | [address] | | | | | | [place] | | | | | | [address] | | | | | | | | +--------+ + + + + | 05/22/ | Office | Nephrology | Mariana Cortez W, | | | 2020 | Visit | | [address] | | | | | | [address] [place] | | | | | | [place] [address] | | | | | | [phone] | | | | | | | | +--------+ + + + + documented as of this encounter Procedures + +--------+ + + + | Procedure Name | Priori | Date/Time | Associated Diagnosis | Comments | | | ty | | | | + +--------+ + + + | EXTERNAL LAB: LEVI | Routin | 01/24/2017 | | Results for this | | | e | | | procedure are in the | | | | | | results section. | + +--------+ + + + | EXTERNAL LAB: | Routin | 01/24/2017 | | Results for this | | GLUCOSE | e | | | procedure are in the | | | | | | results section. | + +--------+ + + + | EXTERNAL LAB: ALT | Routin | 01/24/2017 | | Results for this | | | e | | | procedure are in the | | | | | | results section. | + +--------+ + + + | EXTERNAL LAB: AST | Routin | 01/24/2017 | | Results for this | | | e | | | procedure are in the | | | | | | results section. | + +--------+ + + + | EXTERNAL LAB: | Routin | 01/24/2017 | | Results for this | | ALKALINE PHOSPHATASE | e | | | procedure are in the | | | | | | results section. | + +--------+ + + + | EXTERNAL LAB: | Routin | 01/24/2017 | | Results for this | | BILIRUBIN, TOTAL | e | | | procedure are in the | | | | | | results section. | + +--------+ + + + | EXTERNAL LAB: | Routin | 01/24/2017 | | Results for this | | ALBUMIN | e | | | procedure are in the | | | | | | results section. | + +--------+ + + + | EXTERNAL LAB: | Routin | 01/24/2017 | | Results for this | | PROTEIN, TOTAL | e | | | procedure are in the | | | | | | results section. | + +--------+ + + + | EXTERNAL LAB: | Routin | 01/24/2017 | | Results for this | | CALCIUM | e | | | procedure are in the | | | | | | results section. | + +--------+ + + + | EXTERNAL LAB: CARBON | Routin | 01/24/2017 | | Results for this | | DIOXIDE | e | | | procedure are in the | | | | | | results section. | + +--------+ + + + | EXTERNAL LAB: | Routin | 01/24/2017 | | Results for this | | CHLORIDE | e | | | procedure are in the | | | | | | results section. | + +--------+ + + + | EXTERNAL LAB: | Routin | 01/24/2017 | | Results for this | | POTASSIUM | e | | | procedure are in the | | | | | | results section. | + +--------+ + + + | EXTERNAL LAB: SODIUM | Routin | 01/24/2017 | | Results for this | | | e | | | procedure are in the | | | | | | results section. | + +--------+ + + + | EXTERNAL LAB: | Routin | 01/24/2017 | | Results for this | | TRIGLYCERIDES | e | | | procedure are in the | | | | | | results section. | + +--------+ + + + | EXTERNAL LAB: | Routin | 01/24/2017 | | Results for this | | CHOLESTEROL, HDL | e | | | procedure are in the | | | | | | results section. | + +--------+ + + + | EXTERNAL LAB: | Routin | 01/24/2017 | | Results for this | | CHOLESTEROL, TOTAL | e | | | procedure are in the | | | | | | results section. | + +--------+ + + + | EXTERNAL LAB: | Routin | 01/24/2017 | | Results for this | | CHOLESTEROL, LDL | e | | | procedure are in the | | | | | | results section. | + +--------+ + + + | EXTERNAL LAB: EGFR | Routin | 01/24/2017 | | Results for this | | | e | | | procedure are in the | | | | | | results section. | + +--------+ + + + | EXTERNAL LAB: | Routin | 01/24/2017 | | Results for this | | CREATININE | e | | | procedure are in the | | | | | | results section. | + +--------+ + + + | HEMOGLOBIN A1C | Routin | 01/24/2017 | | Results for this | | | e | | | procedure are in the | | | | | | results section. | + +--------+ + + + documented in this encounter Results Hemoglobin A1C (01/24/2017) + +-------+ + + + | Component | Value | Ref Range | Performed | Pathologist | | | | | At | Signature | + +-------+ + + + | Hemoglobin | 9.7 | % | | | | A1c, | | | | | | external | | | | | + +-------+ + + + + + | Specimen | + + | Blood | + + External Lab: BUN (01/24/2017) + +-------+ + + + | Component | Value | Ref Range | Performed | Pathologist | | | | | At | Signature | + +-------+ + + + | BUN, | 52 | | | | | External | | | | | + +-------+ + + + External Lab: Glucose (01/24/2017) + +-------+ + + + | Component | Value | Ref Range | Performed | Pathologist | | | | | At | Signature | + +-------+ + + + | Glucose, | 262 | | | | | External | | | | | + +-------+ + + + External Lab: ALT (01/24/2017) + +-------+ + + + | Component | Value | Ref Range | Performed | Pathologist | | | | | At | Signature | + +-------+ + + + | ALT, | 8 | | | | | External | | | | | + +-------+ + + + External Lab: AST (01/24/2017) + +-------+ + + + | Component | Value | Ref Range | Performed | Pathologist | | | | | At | Signature | + +-------+ + + + | AST, | 6 | | | | | External | | | | | + +-------+ + + + External Lab: Alkaline Phosphatase (01/24/2017) + +-------+ + + + | Component | Value | Ref Range | Performed | Pathologist | | | | | At | Signature | + +-------+ + + + | ALP, | 80 | | | | | External | | | | | + +-------+ + + + External Lab: Bilirubin, Total (01/24/2017) + +-------+ + + + | Component | Value | Ref Range | Performed | Pathologist | | | | | At | Signature | + +-------+ + + + | Bilirubin, | 0.2 | | | | | Total, | | | | | | External | | | | | + +-------+ + + + External Lab: Albumin (01/24/2017) + +-------+ + + + | Component | Value | Ref Range | Performed | Pathologist | | | | | At | Signature | + +-------+ + + + | Albumin, | 0.2 | | | | | External | | | | | + +-------+ + + + External Lab: Protein, Total (01/24/2017) + +-------+ + + + | Component | Value | Ref Range | Performed | Pathologist | | | | | At | Signature | + +-------+ + + + | Protein, | 6.9 | | | | | Total, | | | | | | External | | | | | + +-------+ + + + External Lab: Calcium (01/24/2017) + +-------+ + + + | Component | Value | Ref Range | Performed | Pathologist | | | | | At | Signature | + +-------+ + + + | Calcium, | 9.5 | | | | | External | | | | | + +-------+ + + + External Lab: Carbon Dioxide (01/24/2017) + +-------+ + + + | Component | Value | Ref Range | Performed | Pathologist | | | | | At | Signature | + +-------+ + + + | Carbon | 25 | | | | | Dioxide, | | | | | | External | | | | | + +-------+ + + + External Lab: Chloride (01/24/2017) + +-------+ + + + | Component | Value | Ref Range | Performed | Pathologist | | | | | At | Signature | + +-------+ + + + | Chloride, | 100 | | | | | External | | | | | + +-------+ + + + External Lab: Potassium (01/24/2017) + +-------+ + + + | Component | Value | Ref Range | Performed | Pathologist | | | | | At | Signature | + +-------+ + + + | Potassium, | 4.5 | | | | | External | | | | | + +-------+ + + + External Lab: Sodium (01/24/2017) + +-------+ + + + | Component | Value | Ref Range | Performed | Pathologist | | | | | At | Signature | + +-------+ + + + | Sodium, | 140 | | | | | External | | | | | + +-------+ + + + External Lab: Triglycerides (01/24/2017) + +-------+ + + + | Component | Value | Ref Range | Performed | Pathologist | | | | | At | Signature | + +-------+ + + + | Triglycerid | 245 | | | | | es, | | | | | | External | | | | | + +-------+ + + + + + | Specimen | + + | Blood | + + External Lab: Cholesterol, HDL (01/24/2017) + +-------+ + + + | Component | Value | Ref Range | Performed | Pathologist | | | | | At | Signature | + +-------+ + + + | HDL | 49 | mg/dl | | | | Cholesterol | | | | | | , External | | | | | + +-------+ + + + + + | Specimen | + + | Blood | + + External Lab: Cholesterol, Total (01/24/2017) + +-------+ + + + | Component | Value | Ref Range | Performed | Pathologist | | | | | At | Signature | + +-------+ + + + | Cholesterol | 166 | mg/dl | | | | , Total, | | | | | | External | | | | | + +-------+ + + + + + | Specimen | + + | Blood | + + External Lab: Cholesterol, LDL (01/24/2017) + +-------+ + + + | Component | Value | Ref Range | Performed | Pathologist | | | | | At | Signature | + +-------+ + + + | LDL | 68 | | | | | Cholesterol | | | | | | , Direct, | | | | | | External | | | | | + +-------+ + + + + + | Specimen | + + | Blood | + + External Lab: eGFR (01/24/2017) + +-------+ + + + | Component | Value | Ref Range | Performed | Pathologist | | | | | At | Signature | + +-------+ + + + | eGFR, | 29 | | | | | External | | | | | + +-------+ + + + + + | Specimen | + + | Blood | + + External Lab: Creatinine (01/24/2017) + +-------+ + + + | Component | Value | Ref Range | Performed | Pathologist | | | | | At | Signature | + +-------+ + + + | Creatinine, | 1.87 | | | | | External | | | | | + +-------+ + + + + + | Specimen | + + | Blood | + + documented in this encounter Visit Diagnoses Not on filedocumented in this encounter"
--- OUTSIDE RECORDS SUMMARY | ~2019-11-09 | XMS | Encounter Summary ---
Demographics + + + | Address | [address] | | | [place] [address] | + + + | Home Phone [...] Team Providers + +------+ + | Care Ramp Agent Name | Role | Phone | + +------+ + | Ronel Jacobson PA-C | PCP | | + +------+ + Reason for Visit + + + | Reason | Comments | + + + | Chronic Kidney | | | Disease, Stage III | | [...] | | | | kidney | PA-C [address] | MD [address] | | | | | disease, | [address] | | | | | stage 3 | [place] | [address] | | | | | (moderate) | [address] | [place], | | | | | (HCC) Renal | [place], | [place] [address] | | | | | tubular | [place] | Phone: | | | | | acidosis, | [address] | [phone] | | | | | type 4 | Phone: | Fax: | | | | | Hypertension | [phone] | [phone] | | | | | | Fax: | | | | | | Proteinuria | [phone] | | | | | | Procedures | | | | | | | [place] OFFICE | | | | | | | OUTPATIENT | | | | | | | VISIT 25 | | | | | | | MINUTES | | | +--------+--------+ + + + + Encounter Details +--------+---------+ + + + | Date | Type | Department | Care Team | Description | +--------+---------+ + + + | 05/12/ | Office | [facility] | Mariana Cortez W, | CKD (chronic kidney | | 2018 | Visit | NEPHROLOGY [address] | [address] | disease) stage 3, | | | | [address] | [address] [place] | GFR 30-59 ml/min | | | | [place], [place] | [place] [address] | ([facility]LY [facility]) (Primary Dx); | | | | [address] | [phone] | Essential | | | | [phone] | | hypertension; Renal | | | [...] | | | | | | insulin ([facility]) | +--------+---------+ + + + Social History [...] | Blood Pressure | 152/82 | 05/12/2017 11:42 AM | | | | | PDT | | + + + + + | Pulse | 101 | 05/12/2017 11:42 AM | | | | | PDT | | + + + + + | Temperature | - | - | | + + + + + | Respiratory Rate | - | - | | + + + + + | Oxygen Saturation | 98% | 05/12/2017 11:42 AM | | | | | PDT | | + + + + + | Inhaled Oxygen | - | - | | | Concentration | | | | + + + + + | Weight | 91.1 kg (200 lb 13.4 | 05/12/2017 11:42 AM | | | | oz) | PDT | | + + + + + | Height | 160 cm (5' 3") | 05/12/2017 11:42 AM | | | | | PDT | | + + + + + | Body Mass Index | 35.58 | 05/12/2017 11:42 AM | | | | | PDT | | + + + + + documented in this encounter Progress Notes Mariana Cortez MD - 05/12/2017 11:30 AM PDTFormatting of this note might be different f rom the original. Nephrology Follow-up Visit Visit date: 05/12/2017 Primary care provider: Ronel Jacobson PA-C Follow-up: 1 year Chief Complaint Patient presents with Chronic Kidney Disease, Stage III HPI: July Forte is a 46 y.o. female with chronic kidney disease, RTA type 4, hyperte nsion, type 2 diabetes mellitus. Pt states she feels well. Pt states she has been working with her primary care to improve her glycemic control. Pt denies shortness of breath, chest pain, edema, dysuria, hematuria. Pt reports she is currently taking bumetanide 1 mg BID. ROS: A 6-system review was performed, and was negative or noncontributory other than as sta diego above. PMH: Patient Active Problem List Diagnosis Date Noted Smoker - Daily 02/23/2017 Priority: Low Obesity (BMI 35.0-39.9 without comorbidity) 02/23/2017 Deviated nasal septum 11/12/2016 Hypertrophy of nasal turbinates 11/12/2016 Renal tubular acidosis, type 4 Diabetes mellitus type II - ORAL Control 10/13/2012 Hypertension 10/13/2012 Proteinuria 10/13/2012 CKD (chronic kidney disease) stage 3, GFR 30-59 ml/min ([facility]) 10/13/2012 Note Last Updated: 10/13/2012 Renal ultrasound 09/16/12: right kidney 13 cm, left kidney 12.4 cm. Proteinuric. Migraine headache Outpatient Prescriptions Marked as Taking for the 05/12/17 encounter (Office Visit) with Dora Cortez MD Medication Sig Dispense Refill acetaminophen (TYLENOL) 500 mg tablet Take 500 mg by mouth every 6 hours as needed for Pain. albuterol 90 mcg/puff inhaler Inhale 2 puffs into the lungs every 6 hours as needed. amLODIPine (NORVASC) 10 MG tablet Take 10 mg by mouth Daily. bumetanide (BUMEX) 0.5 [...] (LANTUS SOLOSTAR) 100 units/mL injection (pen) Inject 2-4 Units under the skin nightly. Per sliding scale losartan (COZAAR) 25 mg tablet Take 25 mg by mouth Daily. rosuvastatin (CRESTOR) 20 mg tablet Take 20 mg by mouth nightly. sodium bicarbonate 650 mg tablet Take 1 tablet by mouth Daily. 90 tablet 3 Physical Exam: Vitals: 05/12/17 1142 BP: 152/82 Pulse: 101 SpO2: 98% Weight: 91.1 kg (200 lb 13.4 oz) Height: 1.6 m (5' 3") Constitutional: Appears well-developed and well-nourished. No distress. Cardiovascular: Normal rate, regular rhythm and normal heart sounds. No peripheral edema. Lungs: Respiratory effort normal and breath sounds normal. No crackles or wheezes. Abdominal: Soft. Bowel sounds are present. Neurological: Alert. Memory intact. Reviewed labs with patient. Office Visit on 05/12/2017 Component Date Value Ref Range Status Color, UA, POC 05/12/2017 Yellow Yellow, Light Yellow Final Clarity, UA, [facility] 05/12/2017 Clear Final Glucose, UA, [facility] 05/12/2017 >=1000 mg/dL* Negative Final Bilirubin, UA, [facility] 05/12/2017 Negative Negative Final Ketones, UA, [facility] 05/12/2017 Negative Negative, 100 mg/dL Final Specific Blue, UA, [facility] 05/12/2017 1.005 1.001 - 1.030 Final Blood, UA, [facility] 05/12/2017 Negative Negative Final pH, UA, [facility] 05/12/2017 6.0 5.0, 6.0, 7.0, 8.0, 5.5, 6.5, 7.5 Final Protein, UA, [facility] 05/12/2017 100 mg/dL* Negative Final Urobilinogen, UA, [facility] 05/12/2017 0.2 0.2, Negative, Normal, < 0.2 mg/dL, 1 mg/dL, < 0. 2 E.U./dl, 1.0 E.U./dL, 0.2 mg/dL Final Nitrite, UA, [facility] 05/12/2017 Negative Negative Final Leukocyte Esterase, UA, [facility] 05/12/2017 Small* Negative Final Telephone on 05/08/2017 Component Date Value Ref Range Status Vitamin D, 25-Hydroxy, External 05/07/2017 48 Final Abstract on 05/08/2017 Component Date Value Ref Range Status Creatinine, External 05/07/2017 1.54* 0.5 - 1 Final eGFR, , External 05/07/2017 40 Final WBC, External 05/07/2017 9.18 4 - 11 Final HGB, External 05/07/2017 12.3 12 - 16 Final HCT, External 05/07/2017 35.8 35 - 45 Final PLT, External 05/07/2017 330 140 - 440 Final RBC, External 05/07/2017 3.91 3.8 - 5.2 Final MCV, External 05/07/2017 92 81 - 99 Final RDW, External 05/07/2017 14.15 10.5 - 16 Final Sodium, External 05/07/2017 133* 135 - 145 Final Potassium, External 05/07/2017 5.5* 3.5 - 5.3 Final Chloride, External 05/07/2017 97 97 - 107 Final Carbon Dioxide, External 05/07/2017 21* 22 - 29 Final Calcium, External 05/07/2017 9 8.5 - 10.2 Final Phosphorus, External 05/07/2017 4.5 2.3 - 4.8 Final Albumin, External 05/07/2017 3.3* 3.5 - 5.2 Final Glucose, External 05/07/2017 122* 65 - 99 Final BUN, External 05/07/2017 42* 8 - 25 Final PTH Intact, External 05/07/2017 38 12 - 88 Final Protein/Creatinine Ratio, External 05/07/2017 0.6* 0.0 - 0.2 Final ASSESSMENT AND PLAN: 1. 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 Serum creatinine levels have been fluctuating over past year. Suspect baseline serum creatinine is around 1.5 mg/dL. 2. Essential hypertension Clinic BP is above goal. On amlodipine 10 mg/d, losartan 25 mg/d, bumetanide 1 mg BID. Volume status appears stabl e. Unable to increase losartan due to hyperkalemia risk. Recommend adding a 4th agent, e.g. Beta-salma. 3. Renal tubular acidosis, type 4 Serum bicarbonate >20. On sodium bicarbonate therapy. Low potassium diet. 4. Type 2 diabetes mellitus with stage 3 chronic kidney disease, without long-term current use of insulin (HCC) Last A1c 9.7% in Jan 2017. Continue to optimize glycemic control. Return in 1 year: cbc, renal, ua, upcr. documented in this encounter [...] [place] | | | | | | [address] | | | | | | | | +--------+ + + + + | 01/17/ | Office | Vascular Surgery | Bill Arevalo DNP | | | 2019 | Visit | | [address] | | | | | | [place] | | | | | | [address] | | | | | | | | +--------+ + + + + | 05/22/ | Office | Nephrology | Cortez Mariana W, | | | 2020 | Visit | | MD [address] | | | | | | [address] [place] | | | | | | [place] [address] | | | | | | [phone] | | | | | | | | +--------+ + + + + documented as of this encounter Procedures + +--------+ + + + | Procedure Name | Priori | Date/Time | Associated Diagnosis | Comments | | | ty | | | | + +--------+ + + + | LABS - EXTERNAL SCAN | | 04/13/2018 | | Results for this | | | | 12:00 AM | | procedure are in the | | | | PST | | results section. | + +--------+ + + + | POCT URINALYSIS, | Routin | 05/12/2017 | CKD (chronic | Results for this | | AUTO WITH CONF | e | 11:46 AM | kidney disease) | procedure are in the | | | | PDT | stage 3, GFR 30-59 | results section. | | | | | ml/min (HCC) | | + +--------+ + + + documented in this encounter Results LABS - EXTERNAL SCAN (04/13/2018 12:00 AM PST) + + + | Narrative | Performed At | + + + | Ordered by an | | | unspecified provider. | | + + + POCT Urinalysis Dipstick Automated (05/12/2017 11:46 AM PDT) + + + + + [...] 1.001 - 1.030 | | | | Blue, | | | | | | UA, POC | | | | | + + + + + + | Blood, UA, | Negative | Negative | | | | POC | | | | | + + + + + + | pH, UA, POC | 6.0 | 5.0, 6.0, 7.0, | | | [...] + + | Urine | + + documented in this encounter Visit Diagnoses + + | Diagnosis | + + | CKD (chronic kidney disease) stage 3, GFR 30-59 ml/min ([facility]) - Primary Chronic kidney | [...]
--- OUTSIDE RECORDS SUMMARY | ~2019-11-09 | XMS | Encounter Summary ---
Demographics + + + | Address | [address] | | | [place] [address] | + + + | Home Phone | | + + + | Preferred Language | Unknown | + + + | Marital Status | Single | + + + | [employer] Affiliation | Unknown | + + + [...] Providers + +------+ + | Care Manufacturing Business Analyst Name | Role | Phone | + +------+ + PCP | Unavailable | + +------+ + Reason for Visit + + + | Reason | Comments | + + + | Chronic Kidney | stage 4 | | Disease | | + + + Evaluate & Treat (Routine) +--------+--------+ + + + + | Status | Reason | Specialty | Diagnoses / | Referred By | Referred To | | | | | Procedures | Contact | Contact | +--------+--------+ + + + + | Closed | | Nephrology | Diagnoses | Edy, | [facility] | | | | | RENAL | MD Orin | Nephrology | | | | | FAILURE | [address] | [address] | | | | | Procedures | [address] [place] [address] | | | | | EVAL/TREAT | [place], [place] | [place], | | | | | | [address] | [place] [address] | | | | | | Phone: | Phone: | | | | | | [phone] | [phone] | | | | | | Fax: | Fax: | | | | | | [phone] | [phone] | +--------+--------+ + + + + Encounter Details +--------+---------+ + + + | Date | Type | Department | Care Team | Description | +--------+---------+ + + + | 10/13/ | Office | [facility] | Mariana Cortez, | CKD (chronic kidney | | 2013 | Visit | NEPHROLOGY [address] | disease) stage 2, | | | | [address] | [address] [place] | GFR 60-89 ml/min | | | | [place] | [place] [address] | (Primary Dx); | | | | [address] | [phone] | Proteinuria; | | | | [phone] | | Hypertension; DM | | | | | | type 2 (diabetes | | | | | | mellitus, type 2) | | | | | | ([facility]) | +--------+---------+ + + + [...] + + + | Blood Pressure | 128/76 | 10/13/2012 2:19 PM | | | | | PDT | | + + + + + | Pulse | 90 | 10/13/2012 2:19 PM | | | | | PDT [...] | Weight | 90.2 kg (198 lb 14.4 | 10/13/2012 2:19 PM | | | | oz) | PDT | | + + + + + | Height | 161.3 cm (5' 3.5") | 10/13/2012 2:19 PM | | | | | PDT | | + + + + + | Body Mass Index | 34.68 | 10/13/2012 2:19 PM | | | | | PDT | | + + + + + documented in this encounter Patient Instructions Patient Instructions Mariana Cortez MD - 10/13/2012 3:00 PM PDTBlood test (non-fasting ) at [facility] either tomorrow or Thursday. This it to check you potassium level and your ki dney function. Will call with results and further instructions. Meanwhile, avoid foods hig h in potassium. Return in 3 months. documented in this encounter Progress Notes Mariana Cortez MD - 10/13/2012 3:10 PM PDTFormatting of this note might be different f rom the original. Nephrology Consult - New Visit Visit date: 10/13/2012 Primary care physician: Orin Snow MD HPI: Maryam Forte is a 42 y.o. female referred by Dr. Snow for evaluation of chronic kidney disease. Pt established primary care with Dr. Snow on 09/08/12. Prior to that, pt went [facility] for almost 10 years. Pt was not taking any medication for her diabetes. Her only medication was naproxen PRN for migraine headaches. Pt reports she took naproxen 2 -6 tablets per day PRN for headache since she was 21 years old. On laboratory evaluation (), pt was found to have HbA1c 13.6, with serum creatinine 2.0. Pt was hypertensive to 175/102 on 09/08/12; and was started on lisinopril 20 mg QDAY. Pt reports the lisinopril dos e was increased to 60 mg QDAY on 10/06/12. On repeat lab test (10/06/12), serum creatinine im proved to 0.9, but pt had nephrotic-range proteinuria 3.9 on UPCR. For her diabetes, pt is now on Glargine at bedtime, plus glipizide xl 5 mg QDAY and sitagli ptin/metformin mg BID. Pt reports she had an eye exam, and was noted to have some d iabetic retinopathy. Pt denies shortness of breath, chest pain, dysuria, hematuria. Pt rep orts diarrhea at night; which she thinks is related to acyclovir. Pt is currently taking ac yclovir and prednisone for shingles outbreak over left mid-back/flank. ROS: A 10-system review was performed, and was negative or noncontributory other than as st ated above. Patient Active Problem List Diagnosis Date Noted DM type 2 (diabetes mellitus, type 2) 10/13/2012 Hypertension 10/13/2012 Proteinuria 10/13/2012 CKD (chronic kidney disease) stage 2, GFR 60-89 ml/min 10/13/2012 Past Medical History Diagnosis Date Diabetes mellitus 02/23/1998 Hypertension 09/08/2012 Edema 09/08/2012 COPD (chronic obstructive pulmonary disease) 09/08/2012 PSH: None History Social History Marital Status: Single Spouse Name: N/A Number of Children: 0 Years of Education: 13 Occupational History Other Community [employer] [facility] [place] Social History Main Topics Smoking status: Former Smoker Quit date: 09/23/2012 Smokeless tobacco: Never Used Alcohol Use: 7.2 oz/week 12 Cans of beer per week Drug Use: Not on file Sexually Active: Not on file Other Topics Concern Not on file Social History Narrative No narrative on file Family History Problem Relation Age of Onset Hypertension Father Diabetes Stomach cancer Mother 60 Sister with DM No ESRD or kidney transplant in [place]. No Known Allergies Outpatient Prescriptions Marked as Taking for the 10/13/12 encounter (Office Visit) with Dora Cortez MD Medication Status Sig Dispense Refill acyclovir (ZOVIRAX) 800 mg tablet Active Take 800 mg by mouth 5 times daily. albuterol (VENTOLIN HFA) 90 mcg/puff inhaler Active Inhale 2 puffs into the lungs every 6 hours as needed. cetirizine (ZYRTEC) 10 mg tablet Active Take 10 mg by mouth Daily. cholecalciferol (VITAMIN D-3) 5000 UNITS TABS Active Take 5,000 Units by mouth Daily. cyanocobalamin (VITAMIN B-12) 1,000 mcg/mL injection Active Inject 1,000 mcg under the skin once. fluticasone (FLONASE) 50 mcg/nasal spray Active 2 sprays by Nasal route Daily. glipiZIDE (GLUCOTROL XL) 5 mg 24 hr tablet Active Take 5 mg by mouth Daily. insulin glargine (LANTUS SOLOSTAR) 100 units/mL injection Active Inject 10 Units under the skin nightly. lisinopril (PRINIVIL, ZESTRIL) 20 mg tablet Active Take 60 mg by mouth Daily. metoprolol succinate (TOPROL-XL) 25 mg 24 hr tablet Active Take 25 mg by mouth Daily. predniSONE (DELTASONE) 10 mg tablet Active Take 10 mg by mouth 4 times daily. Take 4 ta blets by mouth every day for 3 days. Then take 3 tablets every day for 3 days. Then take 2 tablets every day for for 3 days , then take 1 tablet every day with food or milk. simvastatin (ZOCOR) 10 mg tablet Active Take 10 mg by mouth nightly. SitaGLIPtin-MetFORMIN HCl 50-1000 MG TB24 Active Take 1 tablet by mouth 2 times daily. Physical Exam Filed Vitals: 10/13/12 1419 BP: 128/76 Pulse: 90 Height: 1.613 m (5' 3.5") Weight: 90.22 kg (198 lb 14.4 oz) Constitutional: Appears well-developed and well-nourished. No distress. ENT: Oropharynx is clear and oral mucosa is moist. Upper dentures. Eyes: Pupils are equal, round, and reactive to light. Cardiovascular: Normal rate, regular rhythm and normal heart sounds. Exam reveals no grossman p and no friction rub. No murmur heard. No carotid bruits. Trace pitting lower peripheral edema. Lungs: Respiratory effort normal and breath sounds normal. No crackles or wheezes. Abdominal: Soft. Bowel sounds are present. No distension or tenderness. Obese. Musculoskeletal: No muscle tenderness. Skin: Skin is warm. Neurological: Alert. Reviewed labs with patient. Creatinine, External Date Value Range Status 10/06/2012 0.91 0.5 - 1.5 Final Lab Results Component Value Date BUN 20 10/06/2012 NA 134 10/06/2012 K 5.6 10/06/2012 CL 103 10/06/2012 CO2 23 10/06/2012 GLUCOSE Date Value Range Status 10/06/2012 110 Final Lab Results Component Value Date PTH 7.53 10/06/2012 CALCIUM 8.9 10/06/2012 PHOS 4.7 10/06/2012 Vit D=10 (09/10/12) ALBUMIN Date Value Range Status 10/06/2012 3.5 3.5 - 5.0 g/dL Final eGFR, External Date Value Range Status 10/06/2012 >60 Final Lab Results Component Value Date WBC 8.8 10/06/2012 HGB 12.7 10/06/2012 HCT 36.1 10/06/2012 MCV 89.4 09/10/2012 Urine protein/creatinine ratio=3.9 Results for MARYAM FORTE ( ) as of 10/13/2012 15:10 Ref. Range 10/13/2012 14:37 POC COLOR UA No range found Yellow POC CLARITY UA No range found Clear POC GLUCOSE UA No range found Negative POC BILIRUBIN UA No range found Negative POC KETONES UA Latest Range: Negative Negative POC SPECIFIC GRAVITY UA No range found 1.010 POC BLOOD UA No range found Trace Lysed POC PH UA No range found 5.0 POC PROTEIN UA No range found 300 mg/dL POC NITRITE UA No range found Negative POC UROBILINOGEN UA No range found 0.2 E.U./dL POC LEUKOCYTE ESTERASE UA No range found Large Reviewed renal ultrasound report with patient. Assessment and Plan: 1. Chronic kidney disease stage 2 with nephrotic range proteinuria: Likely due to diabetic nephropathy and hypertensive nephrosclerosis. Based on serum creatinine 0.9, pt's eGFR is 6 8 mL/min per MDRD. -agree with YOANA inhibitor therapy to decrease amount of proteinuria -continue to optimize diabetic and hypertension control 2. Hyperkalemia: Possibly due to YOANA inhibitor. -repeat serum potassium tomorrow -provided handout of high potassium foods to avoid for now 3. Hypertension: Clinic BP is at goal. Pt has mild peripheral edema. -continue lisinopril 60 mg QDAY for now; may need to decrease dose if pt has persistent hy perkalemia -continue metoprolol xl 25 mg QDAY 4. DM type 2, uncontrolled: Lack of medical care of many years. Pt is getting back on trac k with Dr. Snow' help. 5. Vitamin D deficiency: On vitamin D supplementation. Serum calcium and phosphorous are a t goal. PTH level is low. 6. Hyperlipidemia: On statin therapy. Renal panel tomorrow. Return in 3 months: renal panel, urine prot/cr ratio. Cc: [...] [place] | | | | | | [address] | | | | | | | | +--------+ + + + + | 01/17/ | Office | Vascular Surgery | Bill Arevalo DNP | | | 2019 | Visit | | [address] | | | | | | [place] | | | | | | [address] | | | | | | | | +--------+ + + + + | 05/22/ | Office | Nephrology | Mariana Cortez W, | | | 2020 | Visit | | [address] | | | | | | [address] [place] | | | | | | [place] [address] | | | | | | [phone] | | | | | | | | +--------+ + + + + documented as of this encounter Procedures + +--------+ + + + | Procedure Name | Priori | Date/Time | Associated Diagnosis | Comments | | | ty | | | | + +--------+ + + + | POCT URINALYSIS, | Routin | 10/13/2012 | CKD (chronic | Results for this | | AUTO WITH CONF | e | 2:37 PM | kidney disease) | procedure are in the | | | | PDT | stage 2, GFR 60-89 | results section. | | | | | ml/min | | + +--------+ + + + documented in this encounter Results POCT Urinalysis Dipstick Automated (10/13/2012 2:37 PM PDT) + + + + + [...] | 1.010 | | | | | [place], | | | | | | UA, POC | | | | | + + + + + + | Blood, UA, | Trace Lysed | | | | | POC | | | | | + + + + + + | pH, UA, POC | 5.0 | | | | + + + + + + | Protein, | 300 mg/dL | | | | | UA, [...] + + + | Leukocyte | Large | | | | | Esterase, | [...] DM type 2 (diabetes mellitus, type 2) (HCC) Type II or unspecified type diabetes | | mellitus without mention of complication, not stated as uncontrolled | + + documented in this encounter
--- OUTSIDE RECORDS SUMMARY | ~2019-11-09 | XMS | Encounter Summary ---
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 ([facility]); | | | | | | CKD (chronic kidney | | | | | | disease) stage 3, | | | | | | GFR 30-59 ml/min | | | | | | ([facility]); Weak pulse | +--------+---------+ + + + Social History [...] + + + | Blood Pressure | 150/92 | 08/31/2019 3:38 PM | | | | | PDT | | + + + + + | Pulse | 102 | 08/31/2019 3:38 PM | | | | | PDT | | + + + + + | Temperature | 36.2 C (97.1 F) | 08/31/2019 3:38 PM | | | | | PDT | | + + + + + | Respiratory Rate | 16 | 08/31/2019 3:38 PM | | | | | PDT | | + + + + + | Oxygen Saturation | 99% | 08/31/2019 3:38 PM | | | | | PDT | | + + + + + | Inhaled Oxygen | - | - | | | Concentration | | | | + + + + + | Weight | 96.2 kg (212 lb) | 08/31/2019 3:38 PM | | | | | PDT | | + + + + + | Height | 160 cm (5' 3") | 08/31/2019 3:38 PM | | | | | PDT | | + + + + + | Body Mass Index | 37.55 | 08/31/2019 3:38 PM | | | | | PDT | | + + + + + documented in this encounter Patient Instructions Patient Instructions Carmine Griggs MD - 08/31/2019 3:40 PM PDTComplete art erial ultrasound. 3:5 0 PM PDT documented in this encounter Progress Notes Carmine Griggs MD - 08/31/2019 3:40 PM PDT [facility] Service: Infectious Diseases Outpatient Follow Up Note CHIEF COMPLAINT Follow up on osteomyelitis HISTORY OF PRESENT ILLNESS The patient is a 49 y.o.-year-old female presenting today for follow up. History obtained from chart review and the patient. The patient presented to our clinic referred by Dr. Cespedes from podiatry. The patient was se en there for management of diabetic foot infection, foot ulcer, osteomyelitis of the fifth t oe and also fifth metatarsal. She is a [...] recent labs showed creatinine 1.14. She has di agnosis of chronic kidney disease also. The patient had normal electrolytes, mild elevation white cell count of 11.5, vancomycin level 15.3 on July 28, 2019. The patient was referred to clinic for management of antibiotic therapy. Of note, the patient did not have surgical resection of the bone. She did have surgical de bridement but her bowel was left intact allowing for antibiotic therapy to hopefully treat h er infection and avoid amputation. The patient was recommended therapy with IV ertapenem. This was started after her last vis it on August 03, 2019. The patient has been on IV ertapenem and since then. The patient's course was recently complicated with a severe anemia and she was admitted to the hospital and found to have evidence of upper GI bleed. GI was consulted. The patient's hemoglobin has recovered. The patient's most recent inflammatory markers are decreasing. Her CRP was 6.6 (reference range 0-5). The patient continues to have an open wound, difficult to heal. She states her blood glucose levels are improved compared to prior. She reports fasting gl ucose levels of around 110-120. PAST MEDICAL HISTORY Patient Active Problem List [...] History of duodenal ulcer Upper GI bleeding PAST SURGICAL HISTORY Past Surgical History: Procedure Laterality Date NASAL SEPTUM SURGERY Bilateral 02/24/2017 Procedure: Septoplasty, Inferior Turbinoplasty; Surgeon: Henok Luther MD; Location: [facility] MAIN OR UPPER GASTROINTESTINAL ENDOSCOPY N/A 08/18/2019 Procedure: EGD; Surgeon: Stepan Magdaleno MD; Location: [facility] SOCIAL HISTORY Social History Socioeconomic History Marital status: Single Spouse name: Not on file Number of children: 0 Years of education: 13 Highest education level: Not on file Occupational History Employer: OTHER Comment: [employer] Social Needs Financial resource strain: Not on [...] file Gets together: Not on file Attends baptist service: Not on file Active member of [...] Social History Narrative Lives in house in [place] alone. FAM. HISTORY Family History Problem Relation [...] MINI PEN NEEDLES 31G X 5 MM [facility] [place], , Disp: , Rfl: CROW CONTOUR TEST [...] Disp: 90 tablet, Rfl: 3 TechLite Lancets MIS, , Disp: , Rfl: Allergies Allergen Reactions Furosemide Swelling REVIEW OF SYSTEMS 12+ systems reviewed. Negative except as per HPI. PHYSICAL EXAM Vital Signs: BP (!) 150/92 | Pulse 102 | Temp 36.2 C (97.1 F) (Temporal) | Resp 16 | Ht 1.6 m (5 ' 3") | Wt 96.2 kg (212 lb) | SpO2 99% | BMI 37.55 kg/m General Appearance: Alert, cooperative, no distress. [...] four quadrants, no masses, no organomegaly Extremities: Persistent open wound. Mild surrounding erythema. Pulses: Diminished pedal pulses bilaterally. Skin: Skin color, texture, turgor normal, no rashes or lesions Lymph nodes: Cervical, supraclavicular, and axillary nodes normal Neurologic: Alert, oriented, no focal deficits. Venous access: Venous access: PICC. REVIEW OF LABS: All labs were reviewed. Results for orders placed or performed during the hospital encounter of 08/17/19 Coronavirus (COVID-19) NAAT Specimen: Nasopharynx; Tissue Result Value Ref Range SARS-CoV-2, NAAT (COVID-19) NEGATIVE NEG CBC with Differential Result Value Ref Range WBC 9.29 3.80 - 11.00 K/uL Red Blood Cells 1.75 (L) 3.70 - 5.10 M/uL Hemoglobin 5.3 (LL) 11.3 - 15.5 g/dL Hematocrit 17.3 (LL) 34.0 - 46.0 % MCV 98.9 80.0 - 100.0 fl MCH 30.3 27.0 - 34.0 pg MCHC 30.6 (L) 32.0 - 35.5 g/dL RDW-SD 51.4 37 - 53 fl Platelet Count 468 (H) 150 - 400 K/uL MPV 9.8 fl Diff Type AUTOMATED % nRBC 0.0 0 /100WBC % Neutrophils 71.20 % IMMATURE GRANULOCYTE 0.60 % % Lymphocytes 17.20 % Monocyte % 6.70 % Eosinophils % 4.30 % Basophils % 0.00 % Neutrophils, Absolute 6.61 1.90 - 7.40 K/uL IMMATURE GRANS AB 0.06 0.00 - 0.07 K/uL Absolute Lymphocytes 1.60 1.00 - 3.90 K/uL Absolute Monocytes 0.62 0.00 - 0.80 K/uL Eosinophils, Absolute 0.40 0.00 - 0.50 K/uL Basophils, Absolute 0.00 0.00 - 0.10 K/uL Comprehensive Metabolic Panel Result Value Ref Range Na 137 135 - 145 mmol/L K 4.6 3.5 - 4.9 mmol/L Cl 104 99 - 109 mmol/L CO2 25 23 - 32 mmol/L Anion Gap 13 5 - 20 mmol/L Glucose 263 (H) 65 - 99 mg/dL BUN 53 (H) 8 - 25 mg/dL Creatinine 1.90 (H) 0.50 - 1.00 mg/dL BUN/Creatinine Ratio 28 Calcium 8.6 8.5 - 10.5 mg/dL Protein, Total 6.9 6.3 - 8.2 g/dL Albumin 3.7 3.6 - 5.0 g/dL Globulin 3.2 1.3 - 4.9 g/dL A/G Ratio 1.2 1.0 - 2.4 BILIRUBIN, TOTAL 0.2 0.1 - 1.5 mg/dL ALK PHOS 94 35 - 115 U/L AST 15 10 - 45 U/L ALT 17 10 - 65 U/L Estimated GFR 28 (L) >60 mL/min/1.73m2 Protime INR Result Value Ref Range INR 1.0 PTT Result Value Ref Range PTT 22 (L) 23 - 32 seconds Ferritin Result Value Ref Range Ferritin 40 15 - 150 ng/mL Iron and Iron Binding Capacity Result Value Ref Range Iron 27 (L) 30 - 180 ug/dL Iron Binding Capacity 322 260 - 490 ug/dL Iron Saturation 8 (L) 15 - 50 % Vitamin B-12 Result Value Ref Range VITAMIN B-12 578 232 - 1,245 pg/mL Folate Result Value Ref Range FOLATE 17.2 >3.0 ng/mL Hemoglobin A1C Result Value Ref Range Hemoglobin A1c 7.1 (H) 4.8 - 5.6 % Retic Count Result Value Ref Range % Reticulocyte Count 6.1 (H) 0.4 - 2.7 % Vitamin D, Deficiency Screen (25-Hydroxy) Result Value Ref Range Vit D, 25-Hydroxy 35.0 30.0 - 100.0 ng/mL POC Glucose Result Value Ref Range Glucose, POC 153 (H) 65 - 99 mg/dL Hemoglobin and Hematocrit Result Value Ref Range Hemoglobin 8.0 (L) 11.3 - 15.5 g/dL Hematocrit 25.1 (L) 34.0 - 46.0 % Hemoglobin and Hematocrit Result Value Ref Range Hemoglobin 7.8 (L) 11.3 - 15.5 g/dL Hematocrit 24.7 (L) 34.0 - 46.0 % CBC with Differential Result Value Ref Range WBC 9.21 3.80 - 11.00 K/uL Red Blood Cells 2.21 (L) 3.70 - 5.10 M/uL Hemoglobin 6.6 (LL) 11.3 - 15.5 g/dL Hematocrit 20.9 (LL) 34.0 - 46.0 % MCV 94.6 80.0 - 100.0 fl MCH 29.9 27.0 - 34.0 pg MCHC 31.6 (L) 32.0 - 35.5 g/dL RDW-SD 51.8 37 - 53 fl Platelet Count 395 150 - 400 K/uL MPV 9.8 fl Diff Type AUTOMATED % nRBC 0.0 0 /100WBC % Neutrophils 62.80 % IMMATURE GRANULOCYTE 0.50 % % Lymphocytes 21.70 % Monocyte % 8.50 % Eosinophils % 6.40 % Basophils % 0.10 % Neutrophils, Absolute 5.78 1.90 - 7.40 K/uL IMMATURE GRANS AB 0.05 0.00 - 0.07 K/uL Absolute Lymphocytes 2.00 1.00 - 3.90 K/uL Absolute Monocytes 0.78 0.00 - 0.80 K/uL Eosinophils, Absolute 0.59 (H) 0.00 - 0.50 K/uL Basophils, Absolute 0.01 0.00 - 0.10 K/uL Comprehensive Metabolic Panel Result Value Ref Range Na 139 135 - 145 mmol/L K 4.8 3.5 - 4.9 mmol/L Cl 109 99 - 109 mmol/L CO2 24 23 - 32 mmol/L Anion Gap 11 5 - 20 mmol/L Glucose 70 65 - 99 mg/dL BUN 45 (H) 8 - 25 mg/dL Creatinine 1.58 (H) 0.50 - 1.00 mg/dL BUN/Creatinine Ratio 28 Calcium 8.2 (L) 8.5 - 10.5 mg/dL Protein, Total 6.1 (L) 6.3 - 8.2 g/dL Albumin 3.2 (L) 3.6 - 5.0 g/dL Globulin 2.9 1.3 - 4.9 g/dL A/G Ratio 1.1 1.0 - 2.4 BILIRUBIN, TOTAL 0.3 0.1 - 1.5 mg/dL ALK PHOS 76 35 - 115 U/L AST 14 10 - 45 U/L ALT 12 10 - 65 U/L Estimated GFR 35 (L) >60 mL/min/1.73m2 Lipid Panel Result Value Ref Range Cholesterol 118 <200 mg/dL Triglycerides 201 (H) <150 mg/dL HDL 34 (L) >40 mg/dL LDL, Calculated 44 <100 mg/dL Magnesium Result Value Ref Range Magnesium 2.0 1.7 - 2.4 mg/dL POC Glucose Result Value Ref Range Glucose, POC 84 65 - 99 mg/dL POC Glucose Result Value Ref Range Glucose, POC 175 (H) 65 - 99 mg/dL POC Glucose Result Value Ref Range Glucose, POC 108 (H) 65 - 99 mg/dL CBC no Differential Result Value Ref Range WBC 8.79 3.80 - 11.00 K/uL Red Blood Cells 2.72 (L) 3.70 - 5.10 M/uL Hemoglobin 8.0 (L) 11.3 - 15.5 g/dL Hematocrit 24.8 (L) 34.0 - 46.0 % MCV 91.2 80.0 - 100.0 fl MCH 29.4 27.0 - 34.0 pg MCHC 32.3 32.0 - 35.5 g/dL RDW-SD 50.3 37 - 53 fl Platelet Count 377 150 - 400 K/uL MPV 10.0 fl Comprehensive Metabolic Panel Result Value Ref Range Na 140 135 - 145 mmol/L K 4.5 3.5 - 4.9 mmol/L Cl 112 (H) 99 - 109 mmol/L CO2 20 (L) 23 - 32 mmol/L Anion Gap 13 5 - 20 mmol/L Glucose 55 (L) 65 - 99 mg/dL BUN 26 (H) 8 - 25 mg/dL Creatinine 1.30 (H) 0.50 - 1.00 mg/dL BUN/Creatinine Ratio 20 Calcium 8.5 8.5 - 10.5 mg/dL Protein, Total 6.6 6.3 - 8.2 g/dL Albumin 2.2 (L) 3.6 - 5.0 g/dL Globulin 4.4 1.3 - 4.9 g/dL A/G Ratio 0.5 (L) 1.0 - 2.4 BILIRUBIN, TOTAL 0.3 0.1 - 1.5 mg/dL ALK PHOS 69 35 - 115 U/L AST 12 10 - 45 U/L ALT 15 10 - 65 U/L Estimated GFR 44 (L) >60 mL/min/1.73m2 Magnesium Result Value Ref Range Magnesium 1.7 1.7 - 2.4 mg/dL POC Glucose Result Value Ref Range Glucose, POC 79 65 - 99 mg/dL Lipid Panel Result Value Ref Range Cholesterol 121 <200 mg/dL Triglycerides 211 (H) <150 mg/dL HDL 36 (L) >40 mg/dL LDL, Calculated 43 <100 mg/dL POC Glucose Result Value Ref Range Glucose, POC 69 65 - 99 mg/dL POC Glucose Result Value Ref Range Glucose, POC 116 (H) 65 - 99 mg/dL Type and Screen Result Value Ref Range ABO Rh O POSITIVE Antibody Screen NEGATIVE BB BAND [id number] UNIT # [id number] Product Code LEUKODEPLETED PC Unit Division 00 Unit Status ISSUED,FINAL Transfusion Status OK TO TRANSFUSE CROSSMATCH RESULT COMPATIBLE UNIT # [id number] Product Code LEUKODEPLETED PC Unit Division 00 Unit Status ISSUED,FINAL Transfusion Status OK TO TRANSFUSE CROSSMATCH RESULT COMPATIBLE UNIT # [id number] Product Code LEUKODEPLETED PC,A Unit Division 00 Unit Status ISSUED,FINAL Transfusion Status OK TO TRANSFUSE CROSSMATCH RESULT COMPATIBLE UNIT # [id number] Product Code LEUKODEPLETED PC,B Unit Division 00 Unit Status REL FROM ALLOC Transfusion Status OK TO TRANSFUSE CROSSMATCH RESULT COMPATIBLE UNIT # [id number] Product Code LEUKODEPLETED PC Unit Division 00 Unit Status REL FROM ALLOC Transfusion Status OK TO TRANSFUSE CROSSMATCH RESULT COMPATIBLE Testing performed at [facility] [address] Red Blood Cells (PRBC) - Crossmatch Result Value Ref Range Product Code RED CELL GROUP Units ordered 2 BLOOD BANK COMMENT ORDER RECEIVED IN BLOOD BANK. BLOOD BANK COMMENT Testing performed at [facility];[address] [place] [address];[place] [address] Red Blood Cells (PRBC) - Crossmatch Result Value Ref Range Product Code RED CELL GROUP Units ordered 1 BLOOD BANK COMMENT ORDER RECEIVED IN BLOOD BANK. BLOOD BANK COMMENT Testing performed at [facility];[address] [place] [address] Red Blood Cells (PRBC) - Crossmatch and Hold Result Value Ref Range Product Code RED CELL GROUP Units ordered 2 BLOOD BANK COMMENT ORDER RECEIVED IN BLOOD BANK. BLOOD BANK COMMENT Testing performed at [facility];[address] [place] [address];[place] [address] Admission on 08/17/2019, Discharged on 08/19/2019 Component Date Value Ref Range Status ABO Rh 08/17/2019 O POSITIVE Final Antibody Screen 08/17/2019 NEGATIVE Final BB BAND 08/17/2019 [id number] Final UNIT # 08/17/2019 [id number] Final Product Code 08/17/2019 LEUKODEPLETED PC Final Unit Division 08/17/2019 00 Final Unit Status 08/17/2019 ISSUED,FINAL Final Transfusion Status 08/17/2019 OK TO TRANSFUSE Final CROSSMATCH RESULT 08/17/2019 COMPATIBLE Final UNIT # 08/17/2019 [id number] Final Product Code 08/17/2019 LEUKODEPLETED PC Final Unit Division 08/17/2019 00 Final Unit Status 08/17/2019 ISSUED,FINAL Final Transfusion Status 08/17/2019 OK TO TRANSFUSE Final CROSSMATCH RESULT 08/17/2019 COMPATIBLE Final UNIT # 08/17/2019 [id number] Final Product Code 08/17/2019 LEUKODEPLETED PC,A Final Unit Division 08/17/2019 00 Final Unit Status 08/17/2019 ISSUED,FINAL Final Transfusion Status 08/17/2019 OK TO TRANSFUSE Final CROSSMATCH RESULT 08/17/2019 COMPATIBLE Final UNIT # 08/17/2019 [id number] Final Product Code 08/17/2019 LEUKODEPLETED PC,B Final Unit Division 08/17/2019 00 Final Unit Status 08/17/2019 REL FROM ALLOC Final Transfusion Status 08/17/2019 OK TO TRANSFUSE Final CROSSMATCH RESULT 08/17/2019 COMPATIBLE Final UNIT # 08/17/2019 [id number] Final Product Code 08/17/2019 LEUKODEPLETED PC Final Unit Division 08/17/2019 00 Final Unit Status 08/17/2019 REL FROM ALLOC Final Transfusion Status 08/17/2019 OK TO TRANSFUSE Final CROSSMATCH RESULT 08/17/2019 Final Value:COMPATIBLE Testing performed at [facility];[address] [place] [address];[place] [address] Product Code 08/17/2019 RED CELL GROUP Final Units ordered 08/17/2019 2 Final BLOOD BANK COMMENT 08/17/2019 ORDER RECEIVED IN BLOOD BANK. Final BLOOD BANK COMMENT 08/17/2019 Testing performed at [facility];[address] [place] [address];[place] [address] Final WBC 08/17/2019 9.29 3.80 - 11.00 K/uL Final Red Blood Cells 08/17/2019 1.75* 3.70 - 5.10 M/uL Final Hemoglobin 08/17/2019 5.3* 11.3 - 15.5 g/dL Final Comment: CALLED PHYSICIAN ED/DR THORNE @17:11, MYV Hematocrit 08/17/2019 17.3* 34.0 - 46.0 % Final Comment: CALLED PHYSICIAN ED/DR THORNE @17:11, MYV MCV 08/17/2019 98.9 80.0 - 100.0 fl Final MCH 08/17/2019 30.3 27.0 - 34.0 pg Final MCHC 08/17/2019 30.6* 32.0 - 35.5 g/dL Final RDW-SD 08/17/2019 51.4 37 - 53 fl Final Platelet Count 08/17/2019 468* 150 - 400 K/uL Final MPV 08/17/2019 9.8 fl Final NO NORMAL RANGE ESTABLISHED Diff Type 08/17/2019 AUTOMATED Final % nRBC 08/17/2019 0.0 0 /100WBC Final % Neutrophils 08/17/2019 71.20 % Final IMMATURE GRANULOCYTE 08/17/2019 0.60 % Final % Lymphocytes 08/17/2019 17.20 % Final Monocyte % 08/17/2019 6.70 % Final Eosinophils % 08/17/2019 4.30 % Final Basophils % 08/17/2019 0.00 % Final Neutrophils, Absolute 08/17/2019 6.61 1.90 - 7.40 K/uL Final IMMATURE GRANS AB 08/17/2019 0.06 0.00 - 0.07 K/uL Final NOTE NEW REFERENCE RANGE Absolute Lymphocytes 08/17/2019 1.60 1.00 - 3.90 K/uL Final Absolute Monocytes 08/17/2019 0.62 0.00 - 0.80 K/uL Final Eosinophils, Absolute 08/17/2019 0.40 0.00 - 0.50 K/uL Final Basophils, Absolute 08/17/2019 0.00 0.00 - 0.10 K/uL Final Testing performed at [facility];[address] [place] [address];[place] [address] Na 08/17/2019 137 135 - 145 mmol/L Final K 08/17/2019 4.6 3.5 - 4.9 mmol/L Final Cl 08/17/2019 104 99 - 109 mmol/L Final CO2 08/17/2019 25 23 - 32 mmol/L Final Anion Gap 08/17/2019 13 5 - 20 mmol/L Final Glucose 08/17/2019 263* 65 - 99 mg/dL Final BUN 08/17/2019 53* 8 - 25 mg/dL Final Creatinine 08/17/2019 1.90* 0.50 - 1.00 mg/dL Final BUN/Creatinine Ratio 08/17/2019 28 Final Calcium 08/17/2019 8.6 8.5 - 10.5 mg/dL Final Protein, Total 08/17/2019 6.9 6.3 - 8.2 g/dL Final Albumin 08/17/2019 3.7 3.6 - 5.0 g/dL Final Globulin 08/17/2019 3.2 1.3 - 4.9 g/dL Final A/G Ratio 08/17/2019 1.2 1.0 - 2.4 Final BILIRUBIN, TOTAL 08/17/2019 0.2 0.1 - 1.5 mg/dL Final ALK PHOS 08/17/2019 94 35 - 115 U/L Final AST 08/17/2019 15 10 - 45 U/L Final ALT 08/17/2019 17 10 - 65 U/L Final Estimated GFR 08/17/2019 28* >60 mL/min/1.73m2 Final Comment: GFR <60: CHRONIC KIDNEY DISEASE, IF FOUND OVER A 3 MONTH PERIOD. GFR <15: KIDNEY FAILURE. FOR AMERICANS, MULTIPLY THE CALCULATED GFR BY 1.210. This eGFR is calculated using the MDRD IDMS traceable equation. Testing performed at [facility];[address] [place] [address];[place] [address] INR 08/17/2019 1.0 Final Comment: REFERENCE RANGE: 0.9 - 1.2 NON-ANTICOAGULATED 2.0 - 3.0 ALL OTHER THERAPEUTIC INDICATIONS 2.5 - 3.5 MECHANICAL HEART VALVES, RECURRENT OR SYSTEMIC EMBOLISM Testing performed at [facility];[address] [place] [address];[place] [address] PTT 08/17/2019 22* 23 - 32 seconds Final Testing performed at [facility];[address] [place] [address] Ferritin 08/17/2019 40 15 - 150 ng/mL Final Testing performed at [facility], [address], [address], Located within [facility] [address] Iron 08/17/2019 27* 30 - 180 ug/dL Final Iron Binding Capacity 08/17/2019 322 260 - 490 ug/dL Final Iron Saturation 08/17/2019 8* 15 - 50 % Final Testing performed at [facility], [address] [place] [address] VITAMIN B-12 08/17/2019 578 232 - 1,245 pg/mL Final Testing performed at [facility], [address], [address], Located within [facility] [address] FOLATE 08/17/2019 17.2 >3.0 ng/mL Final Comment: A serum folate concentration of less than 3.1 ng/mL is considered to represent clinical deficiency. Testing performed at [facility], [address], [address], Located within [facility] [address] SARS-CoV-2, NAAT (COVID-19) 08/17/2019 NEGATIVE NEG Final Comment: This test was developed and its performance characteristics determined by [facility]. It has not been cleared or approved by the [place] FDA. This test has been authorized by FDA under an Emergency Use Authorization (EUA). Clinicians should be advised to consider a patients signs, symptoms, history, and results of other diagnostic tests when interpreting results. Testing performed at [facility];[address] [place] [address];[place] [address] Hemoglobin A1c 08/17/2019 7.1* 4.8 - 5.6 % Final Comment: Prediabetes: 5.7 - 6.4 Diabetes: >6.4 Glycemic control for adults with diabetes: <7.0 Testing performed at [facility], [address], [address], Located within [facility] [address] % Reticulocyte Count 08/17/2019 6.1* 0.4 - 2.7 % Final Testing performed at [facility];[address] [place] [address] Vit D, 25-Hydroxy 08/17/2019 35.0 30.0 - 100.0 ng/mL Final Comment: Vitamin D deficiency has been defined by the [place] of [employer] and an Endocrine Society practice guideline as a level of serum 25-OH vitamin D less than 20 ng/mL (1,2). The Endocrine Society went on to further define vitamin D insufficiency as a level between 21 and 29 ng/mL (2). 1. IOM ([place] of [employer]). 2010. Dietary reference intakes for calcium and D. [place]: The National Academies Press. 2. Mary MF, Rosita NC, Misael SCHREIBER, et al. Evaluation, treatment, and prevention of vitamin D deficiency: an Endocrine Society clinical practice guideline. JCEM. 2010; 96(7):1911-30. Testing performed at [facility], [address], [address], Located within [facility] [address] Glucose, POC 08/17/2019 153* 65 - 99 mg/dL Final Testing performed at [facility];[address] [place] [address] Hemoglobin 08/18/2019 8.0* 11.3 - 15.5 g/dL Final Hematocrit 08/18/2019 25.1* 34.0 - 46.0 % Final Testing performed at [facility];[address] [place] [address] Hemoglobin 08/18/2019 7.8* 11.3 - 15.5 g/dL Final Hematocrit 08/18/2019 24.7* 34.0 - 46.0 % Final Testing performed at [facility];[address] [place] [address] WBC 08/18/2019 9.21 3.80 - 11.00 K/uL Final Red Blood Cells 08/18/2019 2.21* 3.70 - 5.10 M/uL Final Hemoglobin 08/18/2019 6.6* 11.3 - 15.5 g/dL Final Comment: CALLED TO KAREN De Luna RN/4E AT 0442 BY READ BACK RESULTS VERIFIED Hematocrit 08/18/2019 20.9* 34.0 - 46.0 % Final Comment: CALLED TO KAREN De Luna RN/[place] AT 0442 BY MW READ BACK RESULTS VERIFIED MCV 08/18/2019 94.6 80.0 - 100.0 fl Final MCH 08/18/2019 29.9 27.0 - 34.0 pg Final MCHC 08/18/2019 31.6* 32.0 - 35.5 g/dL Final RDW-SD 08/18/2019 51.8 37 - 53 fl Final Platelet Count 08/18/2019 395 150 - 400 K/uL Final MPV 08/18/2019 9.8 fl Final NO NORMAL RANGE ESTABLISHED Diff Type 08/18/2019 AUTOMATED Final % nRBC 08/18/2019 0.0 0 /100WBC Final % Neutrophils 08/18/2019 62.80 % Final IMMATURE GRANULOCYTE 08/18/2019 0.50 % Final % Lymphocytes 08/18/2019 21.70 % Final Monocyte % 08/18/2019 8.50 % Final Eosinophils % 08/18/2019 6.40 % Final Basophils % 08/18/2019 0.10 % Final Neutrophils, Absolute 08/18/2019 5.78 1.90 - 7.40 K/uL Final IMMATURE GRANS AB 08/18/2019 0.05 0.00 - 0.07 K/uL Final NOTE NEW REFERENCE RANGE Absolute Lymphocytes 08/18/2019 2.00 1.00 - 3.90 K/uL Final Absolute Monocytes 08/18/2019 0.78 0.00 - 0.80 K/uL Final Eosinophils, Absolute 08/18/2019 0.59* 0.00 - 0.50 K/uL Final Basophils, Absolute 08/18/2019 0.01 0.00 - 0.10 K/uL Final Testing performed at [facility];[address] [place] [address];[place] [address] Na 08/18/2019 139 135 - 145 mmol/L Final K 08/18/2019 4.8 3.5 - 4.9 mmol/L Final Cl 08/18/2019 109 99 - 109 mmol/L Final CO2 08/18/2019 24 23 - 32 mmol/L Final Anion Gap 08/18/2019 11 5 - 20 mmol/L Final Glucose 08/18/2019 70 65 - 99 mg/dL Final BUN 08/18/2019 45* 8 - 25 mg/dL Final Creatinine 08/18/2019 1.58* 0.50 - 1.00 mg/dL Final BUN/Creatinine Ratio 08/18/2019 28 Final Calcium 08/18/2019 8.2* 8.5 - 10.5 mg/dL Final Protein, Total 08/18/2019 6.1* 6.3 - 8.2 g/dL Final Albumin 08/18/2019 3.2* 3.6 - 5.0 g/dL Final Globulin 08/18/2019 2.9 1.3 - 4.9 g/dL Final A/G Ratio 08/18/2019 1.1 1.0 - 2.4 Final BILIRUBIN, TOTAL 08/18/2019 0.3 0.1 - 1.5 mg/dL Final ALK PHOS 08/18/2019 76 35 - 115 U/L Final AST 08/18/2019 14 10 - 45 U/L Final ALT 08/18/2019 12 10 - 65 U/L Final Estimated GFR 08/18/2019 35* >60 mL/min/1.73m2 Final Comment: GFR <60: CHRONIC KIDNEY DISEASE, IF FOUND OVER A 3 MONTH PERIOD. GFR <15: KIDNEY FAILURE. FOR AMERICANS, MULTIPLY THE CALCULATED GFR BY [email or web address]. This eGFR is calculated using the MDRD IDMS traceable equation. Testing performed at [facility] [place] [address] Cholesterol 08/18/2019 118 <200 mg/dL Final Triglycerides 08/18/2019 201* <150 mg/dL Final HDL 08/18/2019 34* >40 mg/dL Final LDL, Calculated 08/18/2019 44 <100 mg/dL Final Testing performed at [facility], [address] [place] [address] Magnesium 08/18/2019 2.0 1.7 - 2.4 mg/dL Final Testing performed at [facility] [place] [address] Product Code 08/18/2019 [employer] Final Units ordered 08/18/2019 1 Final BLOOD BANK COMMENT 08/18/2019 ORDER RECEIVED IN BLOOD BANK. Final BLOOD BANK COMMENT 08/18/2019 Testing performed at [facility] [place] [address] Final Product Code 08/18/2019 [employer] Final Units ordered 08/18/2019 2 Final BLOOD BANK COMMENT 08/18/2019 ORDER RECEIVED IN BLOOD BANK. Final BLOOD BANK COMMENT 08/18/2019 Testing performed at [facility];[address] [place] [address] Final Glucose, POC 08/18/2019 84 65 - 99 mg/dL Final Testing performed at [facility];[address] [facility];[place] [address] Glucose, POC 08/18/2019 175* 65 - 99 mg/dL Final Testing performed at [facility];[address] [facility];[place] [address] Glucose, POC 08/18/2019 108* 65 - 99 mg/dL Final Testing performed at [facility];[address] [place] [address];[place] [address] WBC 08/19/2019 8.79 3.80 - 11.00 K/uL Final Red Blood Cells 08/19/2019 2.72* 3.70 - 5.10 M/uL Final Hemoglobin 08/19/2019 8.0* 11.3 - 15.5 g/dL Final Hematocrit 08/19/2019 24.8* 34.0 - 46.0 % Final MCV 08/19/2019 91.2 80.0 - 100.0 fl Final MCH 08/19/2019 29.4 27.0 - 34.0 pg Final MCHC 08/19/2019 32.3 32.0 - 35.5 g/dL Final RDW-SD 08/19/2019 50.3 37 - 53 fl Final Platelet Count 08/19/2019 377 150 - 400 K/uL Final MPV 08/19/2019 10.0 fl Final Comment: NO NORMAL RANGE ESTABLISHED Testing performed at [facility], [address] [place] [address] Na 08/19/2019 140 135 - 145 mmol/L Final K 08/19/2019 4.5 3.5 - 4.9 mmol/L Final Cl 08/19/2019 112* 99 - 109 mmol/L Final CO2 08/19/2019 20* 23 - 32 mmol/L Final Anion Gap 08/19/2019 13 5 - 20 mmol/L Final Glucose 08/19/2019 55* 65 - 99 mg/dL Final BUN 08/19/2019 26* 8 - 25 mg/dL Final Creatinine 08/19/2019 1.30* 0.50 - 1.00 mg/dL Final BUN/Creatinine Ratio 08/19/2019 20 Final Calcium 08/19/2019 8.5 8.5 - 10.5 mg/dL Final Protein, Total 08/19/2019 6.6 6.3 - 8.2 g/dL Final Albumin 08/19/2019 2.2* 3.6 - 5.0 g/dL Final Globulin 08/19/2019 4.4 1.3 - 4.9 g/dL Final A/G Ratio 08/19/2019 0.5* 1.0 - 2.4 Final BILIRUBIN, TOTAL 08/19/2019 0.3 0.1 - 1.5 mg/dL Final ALK PHOS 08/19/2019 69 35 - 115 U/L Final AST 08/19/2019 12 10 - 45 U/L Final ALT 08/19/2019 15 10 - 65 U/L Final Estimated GFR 08/19/2019 44* >60 mL/min/1.73m2 Final Comment: GFR <60: CHRONIC KIDNEY DISEASE, IF FOUND OVER A 3 MONTH PERIOD. GFR <15: KIDNEY FAILURE. FOR AMERICANS, MULTIPLY THE CALCULATED GFR BY [email or web address]. This eGFR is calculated using the MDRD IDMS traceable equation. Testing performed at [address] [address] Magnesium 08/19/2019 1.7 1.7 - 2.4 mg/dL Final Testing performed at [facility];[address] [place] [address] Glucose, POC 08/18/2019 79 65 - 99 mg/dL Final Testing performed at [facility];[address] [place] [address] Cholesterol 08/19/2019 121 <200 mg/dL Final Triglycerides 08/19/2019 211* <150 mg/dL Final HDL 08/19/2019 36* >40 mg/dL Final LDL, Calculated 08/19/2019 43 <100 mg/dL Final Testing performed at [address] [address] Glucose, POC 08/19/2019 69 65 - 99 mg/dL Final Testing performed at [facility];[address] [place] [address] Glucose, POC 08/19/2019 116* 65 - 99 mg/dL Final Testing performed at [facility];[address] [place] [address] CrCl cannot be calculated (Patient's most recent lab result is older than the maximum 3 day s allowed.). MICROBIOLOGY Microbiology Results (Last 14 Days by Collected Date with Culture/Sensitivity) No results found for the last 336 hours. IMAGING No new images for review today. ASSESSMENT AND RECOMMENDATIONS The patient is a 49 y.o.-year-old female with the following problems: Visit Diagnoses and Associated Orders: Diagnoses and all orders for this visit: Osteomyelitis of fifth toe of right foot ([facility]) - VAS Lower Extremity Arteries Right; Future Acute osteomyelitis of metatarsal bone, right ([facility]) Polymicrobial bacterial infection MSSA infection, non-invasive Type 2 diabetes, controlled, with neuropathy ([facility]) CKD (chronic kidney disease) stage 3, GFR 30-59 ml/min ([facility]) Weak pulse - VAS Lower Extremity Arteries Right; Future 1. Patient with significant diabetic foot infection, osteomyelitis of the fifth toe as wel l as fifth metatarsal, polymicrobial infection including MSSA, group B streptococcus, Serrat ia, possibly anaerobes. The patient will continue treatment with IV ertapenem 1 g daily. S he already has a PICC line. She will continue weekly monitorization with a CBC, CMP, ESR, C RP. Her wound is taken a while to heal. She has weak pedal pulses. The patient will have eval uation with arterial Doppler of the lower extremity. Side effects of medications, duration of therapy, prognosis and importance of adherence richard rubio discussed with the patient today. Follow up in 2 weeks. Side effects of medications, duration of therapy, prognosis and importance of adherence richard rubio discussed with the patient today. Follow up in 2 weeks. Carmine Palma MD, MPH Infectious Diseases 08/31/2019 Tdocumented in this encounter Plan of Treatment +--------+ + + + + | Date | Type | Specialty | Care Team | Description | +--------+ + + + + | 01/17/ | Appointment | Radiology | Bill Arevalo DNP | | | 2019 | | | [address] | | | | | | [place] | | | | | | [address] | | | | | | | | +--------+ + + + + | 01/17/ | Office | Vascular Surgery | Bill Arevalo DNP | | | 2019 | Visit | | [address] | | | | | | [place] | | | | | | [address] | | | | | | | | +--------+ + + + + | 05/22/ | Office | Nephrology | Mariana Cortez W, | | | 2020 | Visit | | [address] | | | | | | [address] | | | | | | [place] [address] | | | | | | [phone] | | | | | | | | +--------+ + + + + documented as of this encounter Results VAS Lower Extremity Arteries [...] 50% distal CORY stenosis (113-235 cm/sec). 3. GARMENT PRESSER | | | chronically occluded throughout. 4. [...] analysis: Right lower | | | extremity: FLAVOR TANK TENDER prox: 91, triphasic DFA prox: 46, triphasic SFA | | | prox: 104, triphasic SFA mid: 106, triphasic SFA dist: 121, | | | triphasic Pop mid: 94, triphasic CORY prox: 86, triphasic CORY dist: | | | 235, triphasic T GARMENT PRESSER prox: 0, absent GARMENT PRESSER dist: 0, absent Peroneal | | | prox: 33, triphasic Peroneal dist: 0, absent | | + + + + + | Procedure Note | + + | Aniket, [id number] - 09/15/2019 7:52 AM PDT | | [...] | | Right lower extremity: | | FLAVOR TANK TENDER prox: 91, triphasic | | DFA prox: 46, triphasic | | SFA prox: 104, triphasic | | SFA mid: 106, triphasic | | SFA dist: 121, triphasic | | Pop mid: 94, triphasic | | CORY prox: 86, triphasic | | CORY dist: 235, triphasic | | T GARMENT PRESSER prox: 0, absent | | GARMENT PRESSER dist: 0, absent | | Peroneal prox: 33, triphasic | | Peroneal dist: 0, absent | | | | IMPRESSION: | | 1. RIGHT LEG: Triphasic inflow and outflow, without hemodynamically | | significant stenosis. | | 2. Appears to be single-vessel runoff via the CORY, with > 50% distal | | CORY stenosis (113-235 cm/sec). | | 3. GARMENT PRESSER chronically occluded throughout. | | 4. Peroneal [...] | Type 2 diabetes, controlled, with neuropathy ([facility]) Type II or unspecified type | | diabetes mellitus with neurological manifestations, not stated as uncontrolled | + + | CKD (chronic kidney disease) stage 3, GFR 30-59 ml/min Chronic kidney disease, Stage | | III (moderate) | + + | Weak pulse Other symptoms involving cardiovascular system | + + documented in this encounter
--- OUTSIDE RECORDS SUMMARY | ~2019-11-09 | XMS | Encounter Summary ---
Demographics + + + | Address | [address] | | | [place] [address] | + + + | Home Phone [...] Author + + + | Author | [facility] | | | and [place] | + + + | Organization | [facility] | | [...] Team Providers + +------+ + | Care Mercury Washer Name | Role | Phone | + +------+ + | Mehrdad Avalos MD | PCP | | + +------+ + Reason for Visit + +--------+ + | Reason | Onset | Comments | | | Date | | + +--------+ + | Coordination Of Care | 08/18/ | Ertapenem dosage. [facility] | | | 2019 | | + +--------+ + Encounter Details +--------+ + + + + | Date | Type | Department | Care Team | Description | +--------+ + + + + | 08/18/ | Telephone | [facility] | Louie Henry | Coordination Of Care | | 2019 | | INFECTIOUS DISEASE | Carmine Kebede MD | (Ertapenem dosage. | | | | [address] | [address] | [facility]) | | | | [place], [place] | [place] [address] | | | | | [address] | [phone] | | | | | [phone] | | | +--------+ + + + [...] Telephone Encounter - Elisha Dunbar RN - 08/19/2019 2:15 PM PDTDiscussed case with Zeny Palma in the office. Ertapenem 1g IV q24h once daily is the appropriate dose, based on most recent labs during h ospitalization. No change in IV antibiotics dose is needed at this time. Rx are sent via [employer] e management/in patient team at [facility]. Called Erum at [facility]. No answer. Left detailed voice message- continue Ertapenem as ordered. 1g IV q24h --09/13/2019. elephone Joanna Jay, Gender Studies Professor - 08/19/2019 1:23 PM PDTOption care called regarding p atients Ertapenem. They are aware patient is being discharged from the hospital. They want to know if she is to continue with the Ertapenem. If so they are needing continuation orde rs and also wanting to know if she is to continue at this same dose- (renal function) low. Joanna Alfonso. CMA documented in this encounter [...] [place] | | | | | | [address] | | | | | | | | +--------+ + + + + | 05/22/ | Office | Nephrology | Mariana Cortez W, | | | 2020 | Visit | | [address] | | | | | | [address] | | | | | | [place] [address] | | | | | | [phone] | | | | | | | | +--------+ + + + + documented as of this encounter Visit Diagnoses Not on filedocumented in this encounter"
--- OUTSIDE RECORDS SUMMARY | ~2019-11-09 | XMS | Encounter Summary ---
Demographics + + + | Address | [address] | | | [place] [address] | + + + | Home Phone [...] Team Providers + +------+ + | Care [employer] Plant Operator Name | Role | Phone | + +------+ + PCP | Unavailable | + +------+ + Encounter Details +--------+ + + + + | Date | Type | Department | Care Team | Description | +--------+ + + + + | 04/19/ | Orders Only | [facility] [place] | Ada Serrano, | CKD (chronic kidney | | 2013 | | NEPHROLOGY [address] | RN | disease) stage 2, | | | | [address] | | GFR 60-89 ml/min | | | | [place] | | | | | | [address] | | | | | | [phone] | | | +--------+ + + + [...] [place] | | | | | | [address] | | | | | | | | +--------+ + + + + | 01/17/ | Office | Vascular Surgery | Bill Arevalo DNP | | | 2019 | Visit | | [address] | | | | | | [place] | | | | | | [address] | | | | | | | | +--------+ + + + + | 05/22/ | Office | Nephrology | Mariana Cortez, | | | 2020 | Visit | | [address] | | | | | | [address] | | | | | | [place] [address] | | | | | | [phone] | | | | | | | | +--------+ + + + + documented as of this encounter Visit Diagnoses + + | Diagnosis | + + | CKD (chronic kidney disease) stage 2, GFR 60-89 ml/min Chronic kidney disease, Stage | | II (mild) | + + documented in this encounter"
--- OUTSIDE RECORDS SUMMARY | ~2019-11-09 | XMS | Encounter Summary ---
Demographics + + + | Address | [address] | | | [place] [address] | + + + | Home Phone [...] + | Author | [facility] | | | and [place] | + + + | Organization | [facility] | | | and [...] Team Providers + +------+ + | Care Coloring Room Worker Name | Role | Phone | + +------+ + PCP | Unavailable | + +------+ + Encounter Details +--------+ + + + + | Date | Type | Department | Care Team | Description | +--------+ + + + + | 11/16/ | Hospital | [facility] | Segun Esau | Shortness of breath; | | 2012 - | Encounter | [facility] | Andrei Bernal MD [address] | Bacterial | | | | [address]LO[address] | pneumonia, | | 11/18/ | | [address] | [place] [address] | unspecified; DM | | 2012 | | [place], [place] | [phone] | (diabetes mellitus) | | | | [address] | | (HCC); HTN | | | | [phone] | | (hypertension); SIRS | | | | | | (systemic | | | | | | inflammatory | | | | | | response syndrome) | | | | | | (HCC); Debility, | | | | | | unspecified | +--------+ + + + + [...] documented as of this encounter Discharge Summaries Conversion Transaction, Provider Unknown - 11/18/2012 4:03 PM PDTFormatting of this note m ight be different from the original. Discharge Summaries by Jenniefr Hawkins RN at 11/18/12 1603 Author: Jennifer Hawkins RN Service: (none) Author Type: Registered Nurse Filed: 11/18/12 1605 Date of Service: 11/18/12 160 Status: Signed Pediatric Dentist: Jennifer Hawkins RN (Registered Nurse) Ordered patient care complete. I educated patient and ordnance artificer on drJennifer Discharge instru ctions, patient and ordnance artificer verbalized that they understand instructions. Removed IV sites as per Order. Catheters intact for both sites, no redness/heat/swelling/discharge for b oth sites. Pt tolerated procedures well. Pt was wheeled out of 6 RP with escort in [facility], patient and ordnance artificer had all of patient's belongings with them. Magdi Baird DO - 11/18/2012 11:43 AM PDTFormatting of this note might be different from the kal ginal. Discharge Summaries by Magdi Ruiz DO at 11/18/12 1143 Author: Magdi Ruiz DO Service: (none) Author Type: Physician Filed: 11/18/12 1153 Date of Service: 11/18/12 1143 Status: Signed Pediatric Dentist: Magdi Ruiz DO (Physician) [facility] Service: Hospitalist Discharge Summary Date of Admission: 11/16/2012 Date of Discharge: 11/18/2012 Discharge Provider: aMgdi Ruiz DO Treatment Team: Consulting Physician: Sharla Reilly MD Admitting Provider: Esau Hinton MD Discharge Diagnoses: Principal Problem (Resolved): *Shortness of breath Active Problems: * No active hospital problems. * Maryam Forte came to hospital with sudden shortness of breath, orthopnea, and swelling. S he was admitted to hospitalists for possible acute heart failure vs pneumonia. Dr Melba malin was consulted and felt there was no infectious etiology, abx stopped, and he felt her sy mptoms were cardiac-related. Her symptoms resolved quickly with lasix, though I/O's show act ually a slightly positive fluid balance. Echo was done and was normal, good EF about 60%. Omar coleman was asymptomatic. She is discharged home for outpatient follow up, and she should cont inue Lasix for now. Etiology unclear, suspect flash pulmonary edema. She was noted to be ane mayela, stable, no bleeding, iron panel B12/folate was ordered but lab results are very slow in resulting at this time, I discussed with patient and she can follow up with her outpatient provider for further workup. DISCHARGE EXAM Vital Signs: BP 142/83 | Pulse 92 | Temp 97.3 F (36.3 C) (Oral) | Resp 18 | Ht 1.6 m (5' 3") | Wt 95 .1 kg (209 lb 10.5 oz) | BMI 37.14 kg/m2 | SpO2 98% | ? No Patient Vitals for the past 24 hrs: BP Temp Temp src Pulse Resp SpO2 Weight 11/18/12 1105 142/83 mmHg 97.3 F (36.3 C) Oral 92 18 98 % - 11/18/12 0707 142/83 mmHg 97.7 F (36.5 C) Oral 92 18 94 % - 11/18/12 0316 144/75 mmHg 97.1 F (36.2 C) Oral 91 18 96 % 95.1 kg (209 lb 10.5 oz) 11/17/12 2316 134/65 mmHg 98.5 F (36.9 C) Oral 81 17 95 % - 11/17/12 1916 175/86 mmHg 97.7 F (36.5 C) Oral 94 17 94 % - 11/17/12 1510 175/84 mmHg 98.2 F (36.8 C) Oral 92 18 98 % - Physical Exam Vitals reviewed. Constitutional: She is oriented to person, place, and time. She appears well-developed and well-nourished. No distress. HENT: Head: Normocephalic and atraumatic. Mouth/Throat: Oropharynx is clear and moist. Eyes: Conjunctivae normal are normal. No scleral icterus. Neck: Normal range of motion. Neck supple. No JVD present. Cardiovascular: Normal rate, regular rhythm and intact distal pulses. No murmur heard. Pulmonary/Chest: Effort normal and breath sounds normal. No respiratory distress. She has n o wheezes. She has no rales. She exhibits no tenderness. Abdominal: Soft. Bowel sounds are normal. She exhibits no distension. There is no tendernes s. Musculoskeletal: Normal range of motion. She exhibits no edema and no tenderness. Neurological: She is alert and oriented to person, place, and time. Skin: Skin is warm and dry. No rash noted. She is not diaphoretic. No erythema. No pallor. Psychiatric: She has a normal mood and affect. Her behavior is normal. Judgment and thought content normal. DATA CBC: Lab Results Component Value Date WBC 9.5 11/18/2012 RBC 2.99* 11/18/2012 HGB 9.3* 11/18/2012 HCT 27.5* 11/18/2012 MCV 91.9 11/18/2012 MCH 31.2 11/18/2012 MCHC 33.9 11/18/2012 RDW 47.7 11/18/2012 PLT 270 11/18/2012 MPV 8.0 11/18/2012 CMP: Lab Results Component Value Date NA 135 11/18/2012 K 4.5 11/18/2012 CL 107 11/18/2012 CO2 22* 11/18/2012 ANIONGAP 11 11/18/2012 GLUF 134* 11/18/2012 BUN 33* 11/18/2012 CREATININE 1.07* 11/18/2012 BCR 31 11/18/2012 CA 8.7 11/18/2012 PROT 5.5* 11/17/2012 ALB 2.8* 11/17/2012 GLOB 2.7 11/17/2012 BILITOT 0.2 11/17/2012 ALP 48 11/17/2012 AST 10 11/17/2012 ALT 9* 11/17/2012 EGFR 60* 11/18/2012 Disposition: Home Condition: Stable Code Status: Full Code Follow up: [facility] [address] [place] [address] Current Discharge Medication List CONTINUE these medications which have NOT CHANGED Details Cholecalciferol 5000 UNITS capsule Take 5,000 Units by mouth daily. furosemide (LASIX) 20 MG tablet Take 40 mg by mouth daily. glipiZIDE (GLUCOTROL) 5 MG 24 hr tablet Take 5 mg by mouth daily. Indications: Type 2 Diabe yamel lisinopril (PRINIVIL,ZESTRIL) 20 MG tablet Take 60 mg by mouth daily. Indications: High Blo od Pressure metoprolol (TOPROL-XL) 25 MG 24 hr tablet Take 25 mg by mouth daily. simvastatin (ZOCOR) 10 MG tablet Take 10 mg by mouth. sitaGLIPtin (JANUVIA) 50 MG tablet Take 50 mg by mouth 2 (two) times daily. Indications: Ty pe 2 Diabetes Discharge took 31+ minutes, to include final examination, discussion of admission, and prep aration of prescriptions, instructions for on-going care, follow-up and documentation of dis charge summary. Magdi Ruiz DO 11/18/2012 11:53 AM documented in this enc ounter Medications at Time of Discharge + + [...] + + +---------+ + + | albuterol | Inhale 2 puffs into | | 0 | | | | (VENTOLIN HFA) 90 | the lungs every 6 | | | | 4 | | mcg/puff inhaler | hours as needed. | | | | | + + + +---------+ + + | cholecalciferol | Take 2,000 Units by | | 0 | 09/28/19 | | | (VITAMIN D-3) 5000 | mouth Daily. | | | 16 | 8 | | UNITS TABS | | | | | | + + + +---------+ + + | furosemide (LASIX) | Take 1 tablet by | 30 | 0 | 11/11/19 | | | 20 mg | mouth Daily. | tablet | | 13 | 3 | | tabletIndications: | | | | | | | Nephrotic range | | | | | | | proteinuria | | | | | | + + + +---------+ + + | glipiZIDE | Take 5 mg by mouth | | 0 | | | | (GLUCOTROL XL) 5 mg | Daily. | | | | 5 | | 24 hr tablet | | | | | | + + + +---------+ + + | insulin glargine | Inject 10 Units | | 0 | | | | (LANTUS SOLOSTAR) | under the skin | | | | 3 | | 100 units/mL | nightly. | | | | | | injection | | | | | | + + + +---------+ + + | lisinopril | Take 60 mg by mouth | | 0 | | | | (PRINIVIL, ZESTRIL) | Daily. | | | | 3 | | 20 mg tablet | | | | | | + + + +---------+ + + | metoprolol | Take 25 mg by mouth | | 0 | | | | succinate | Daily. | | | | 3 | | (TOPROL-XL) 25 mg 24 | | | | | | | hr tablet | | | | | | + + + +---------+ + + | simvastatin | Take 10 mg by mouth | | 0 | | | | (ZOCOR) 10 mg tablet | nightly. | | | | 5 | + + + +---------+ + + | sitagliptan | Take 1 tablet by | 60 | 0 | 10/20/19 | | | (JANUVIA) 50 MG | mouth 2 times daily. | tablet | | 13 | 4 | | tablet | | | | | | + + + +---------+ + + | sitagliptin | Take 50 mg by mouth | | 0 | 10/20/19 | | | (JANUVIA) 50 MG | Daily. | | | 13 | 6 | | tablet | | | | | | + + + +---------+ + + documented as of this encounter Progress Notes Magdi Ruiz DO - 11/17/2012 2:37 PM PDT Progress Notes by Magdi Ruiz DO at 11/17/12 1438 Author: Magdi Ruiz DO Service: (none) Author Type: Physician Filed: 11/17/12 1448 Date of Service: 11/17/121436 Status: Signed Pediatric Dentist: Magdi Ruiz DO (Physician) [facility] Service: Hospitalist Progress Note Hospital Day: LOS: 1 day SUBJECTIVE Patient seen/examined, friend present. Her breathing is much improved, she feels much celine r today. No fever/chill, n/v/c/d, cp, cough. Swelling is decreasing. Scheduled Medications cholecalciferol 5,000 Units Oral Daily furosemide 40 mg Intravenous BID-Diuretics glipiZIDE 5 mg Oral Daily heparin (porcine) 5,000 Units Subcutaneous Q8H insulin aspart 0-3 Units Subcutaneous Nightly insulin aspart 0-6 Units Subcutaneous TID AC ipratropium-albuterol 3 mL Nebulization Q6H lisinopril 20 mg Oral Daily metoprolol 50 mg Oral Daily omeprazole 20 mg Oral QAM AC Or pantoprazole 40 mg Intravenous QAM AC simvastatin 20 mg Oral Nightly sitaGLIPtin 50 mg Oral BID DISCONTD: furosemide 40 mg Oral Daily DISCONTD: heparin (porcine) 5,000 Units Subcutaneous Q8H DISCONTD: ipratropium-albuterol 3 mL Nebulization Q4H [place] DISCONTD: ipratropium-albuterol 3 mL Nebulization Q4H [place] DISCONTD: levofloxacin 750 mg Intravenous Q24H DISCONTD: levofloxacin 750 mg Intravenous Q24H DISCONTD: metoprolol 25 mg Oral Daily DISCONTD: omeprazole 20 mg Oral QAM AC DISCONTD: pantoprazole 40 mg Intravenous QAM AC Continuous Infusions dextrose PRN Medications acetaminophen, acetaminophen, dextrose, dextrose, dextrose, glucagon, glucagon, guaiFENesin , HYDROcodone-acetaminophen, HYDROcodone-acetaminophen, HYDROmorphone, HYDROmorphone, LORaze reji, LORazepam, ondansetron, ondansetron, polyethylene glycol, zolpidem, DISCONTD: acetamino phen, DISCONTD: acetaminophen, DISCONTD: guaiFENesin, DISCONTD: HYDROcodone-acetaminophen, D ISCONTD: HYDROcodone-acetaminophen, DISCONTD: HYDROmorphone, DISCONTD: HYDROmorphone DISCONTD: ondansetron, DISCONTD: ondansetron, DISCONTD: polyethylene glycol, DISCONTD: zolp idem OBJECTIVE Vital Signs: BP 143/77 | Pulse 105 | Temp 97.8 F (36.6 C) (Oral) | Resp 19 | Ht 1.6 m (5' 3") | Wt 9 7.8 kg (215 lb 9.8 oz) | BMI 38.19 kg/m2 | SpO2 97% | ? No Patient Vitals for the past 24 hrs: BP Temp Temp src Pulse Resp SpO2 Height Weight 11/17/12 1115 143/77 mmHg 97.8 F (36.6 C) Oral 105 19 97 % - - 11/17/12 1059 - - - 95 16 - - - 11/17/12 0725 183/89 mmHg 97.8 F (36.6 C) Oral 98 18 96 % - - 11/17/12 0518 - - - 84 18 96 % - - 11/17/12 0318 137/76 mmHg 98.2 F (36.8 C) Oral 88 19 95 % - 97.8 kg (215 lb 9.8 oz) 11/16/12 2329 - - - 100 16 94 % - - 11/16/12 2325 - - - 100 16 93 % - - 11/16/12 2231 135/76 mmHg 97.9 F (36.6 C) Oral 106 18 95 % - - 11/16/12 1918 - - - - - - - 97.4 kg (214 lb 11.7 oz) 11/16/12 1838 - - - - - - - 97.4 kg (214 lb 11.7 oz) 11/16/12 1700 142/88 mmHg 98.3 F (36.8 C) Oral 112 17 94 % 1.6 m (5' 3") 97.4 kg (214 lb 11.7 oz) Physical Exam Vitals reviewed. Constitutional: She is oriented to person, place, and time. No distress. overweight HENT: Head: Normocephalic and atraumatic. Mouth/Throat: Oropharynx is clear and moist. Eyes: Conjunctivae normal are normal. No scleral icterus. Neck: Normal range of motion. Neck supple. No JVD present. Cardiovascular: Normal rate, regular rhythm, normal heart sounds and intact distal pulses. No murmur heard. Pulmonary/Chest: Effort normal. No respiratory distress. She has no wheezes. Few scattered rales Abdominal: Soft. Bowel sounds are normal. She exhibits no distension. There is no tendernes s. Musculoskeletal: Normal range of motion. She exhibits no edema and no tenderness. Neurological: She is alert and oriented to person, place, and time. Skin: Skin is warm and dry. No rash noted. She is not diaphoretic. No erythema. No pallor. Psychiatric: She has a normal mood and affect. Her behavior is normal. Judgment and thought content normal. DATA CBC: Lab Results Component Value Date WBC 8.2 11/17/2012 RBC 2.95* 11/17/2012 HGB 9.3* 11/17/2012 HCT 27.7* 11/17/2012 MCV 94.0 11/17/2012 MCH 31.4 11/17/2012 MCHC 33.4 11/17/2012 RDW 47.3 11/17/2012 PLT 278 11/17/2012 MPV 7.9 11/17/2012 CMP: Lab Results Component Value Date NA 136 11/17/2012 K 4.3 11/17/2012 CL 108 11/17/2012 CO2 21* 11/17/2012 ANIONGAP 11 11/17/2012 GLUF 130* 11/17/2012 BUN 27* 11/17/2012 CREATININE 1.15* 11/17/2012 BCR 23 11/17/2012 CA 8.1* 11/17/2012 PROT 5.5* 11/17/2012 ALB 2.8* 11/17/2012 GLOB 2.7 11/17/2012 BILITOT 0.2 11/17/2012 ALP 48 11/17/2012 AST 10 11/17/2012 ALT 9* 11/17/2012 EGFR 55* 11/17/2012 Echo pending PROBLEM LIST Principal Problem: *Shortness of breath Active Problems: DM (diabetes mellitus) HTN (hypertension) ASSESSMENT & PLAN Patient Active Hospital Problem List: Shortness of breath (11/16/2012) Suspect cardiac, and noninfectious, source. Appreciate Dr Reilly's recommendations, case was discussed with him. Antibiotics stopped. Diuresis and negative fluid balance are having a rapidly beneficial effect. Await echo results, continue negative fluid balance, monitor I/ O's, UO, renal fxn, hemodynamics, respiratory status. DM (diabetes mellitus) (11/16/2012) HTN (hypertension) (11/16/2012) Chronic issues that are stable at this time. Continue insulins, glipizide, lisinopril, metf ormin. Disposition: Inpatient, possible DC soon Code Status: Full Code Magdi Ruiz DO 11/17/2012 2:45 PM Sharla Engle 1:12 PM PDT Progress Notes by Sharla Reilly MD at 11/17/12 1312 Author: Sharla Reilly MD Service: (none) Author Type: Physician Filed: 11/17/121314 Date of Service: 11/17/121311 Status: Signed Pediatric Dentist: Sharla Reilly MD (Physician) [facility] Service: Pulmononary / Melba Progress Note Hospital Day: LOS: 1 day Post-Op Day: * No surgery found * SUBJECTIVE doing better this morning, improved leg swelling Scheduled Medications cholecalciferol 5,000 Units Oral Daily furosemide 40 mg Intravenous BID-Diuretics glipiZIDE 5 mg Oral Daily heparin (porcine) 5,000 Units Subcutaneous Q8H insulin aspart 0-3 Units Subcutaneous Nightly insulin aspart 0-6 Units Subcutaneous TID AC ipratropium-albuterol 3 mL Nebulization Q6H lisinopril 20 mg Oral Daily metoprolol 50 mg Oral Daily omeprazole 20 mg Oral QAM AC Or pantoprazole 40 mg Intravenous QAM AC simvastatin 20 mg Oral Nightly sitaGLIPtin 50 mg Oral BID DISCONTD: furosemide 40 mg Oral Daily DISCONTD: heparin (porcine) 5,000 Units Subcutaneous Q8H DISCONTD: ipratropium-albuterol 3 mL Nebulization Q4H [place] DISCONTD: ipratropium-albuterol 3 mL Nebulization Q4H WA DISCONTD: levofloxacin 750 mg Intravenous Q24H DISCONTD: levofloxacin 750 mg Intravenous Q24H DISCONTD: metoprolol 25 mg Oral Daily DISCONTD: omeprazole 20 mg Oral QAM AC DISCONTD: pantoprazole 40 mg Intravenous QAM AC Continuous Infusions dextrose PRN Medications acetaminophen, acetaminophen, dextrose, dextrose, dextrose, glucagon, glucagon, guaiFENesin , HYDROcodone-acetaminophen, HYDROcodone-acetaminophen, HYDROmorphone, HYDROmorphone, LORaze reji, LORazepam, ondansetron, ondansetron, polyethylene glycol, zolpidem, DISCONTD: acetamino phen, DISCONTD: acetaminophen, DISCONTD: guaiFENesin, DISCONTD: HYDROcodone-acetaminophen, D ISCONTD: HYDROcodone-acetaminophen, DISCONTD: HYDROmorphone, DISCONTD: HYDROmorphone DISCONTD: ondansetron, DISCONTD: ondansetron, DISCONTD: polyethylene glycol, DISCONTD: zolp idem OBJECTIVE Vital Signs: Filed Vitals: 11/17/12 0518 11/17/12 0725 11/17/12 1059 11/17/12 1115 BP: 183/89 143/77 Pulse: 84 98 95 105 Temp: 97.8 F (36.6 C) 97.8 F (36.6 C) TempSrc: Oral Oral Resp: 18 18 16 19 Height: Weight: SpO2: 96% 96% 97% Body mass index is 38.19 kg/(m^2). General Appearance: Alert and oriented, cooperative, no distress, appears stated age Lungs: Clear to auscultation bilaterally, respirations unlabored Chest Wall: No tenderness or deformity Heart: Regular rate and rhythm, S1 and S2 normal, no murmur, rub or gallop Abdomen: Soft, non-tender, bowel sounds normoactive, no masses, no organomegaly Extremities: Extremities normal, atraumatic, no cyanosis or edema DATA CBC: Lab Results Component Value Date WBC 8.2 11/17/2012 RBC 2.95* 11/17/2012 HGB 9.3* 11/17/2012 HCT 27.7* 11/17/2012 MCV 94.0 11/17/2012 MCH 31.4 11/17/2012 MCHC 33.4 11/17/2012 RDW 47.3 11/17/2012 PLT 278 11/17/2012 MPV 7.9 11/17/2012 CMP: Lab Results Component Value Date NA 136 11/17/2012 K 4.3 11/17/2012 CL 108 11/17/2012 CO2 21* 11/17/2012 ANIONGAP 11 11/17/2012 GLUF 130* 11/17/2012 BUN 27* 11/17/2012 CREATININE 1.15* 11/17/2012 BCR 23 11/17/2012 CA 8.1* 11/17/2012 PROT 5.5* 11/17/2012 ALB 2.8* 11/17/2012 GLOB 2.7 11/17/2012 BILITOT 0.2 11/17/2012 ALP 48 11/17/2012 AST 10 11/17/2012 ALT 9* 11/17/2012 EGFR 55* 11/17/2012 Radiology Review: CXR: increase interstitial marking bilateral ASSESSMENT Principal Problem: *Shortness of breath Active Problems: Bacterial pneumonia, unspecified SIRS (systemic inflammatory response syndrome) Debility, unspecified DM (diabetes mellitus) HTN (hypertension) PLAN CHF manegmant Cardiology consult F/U ECHO results Code Status: Full Code SHARLA REILLY MD 11/17/2012 onversio n Transaction, Provider Unknown - 11/17/2012 10:36 AM PDTFormatting of this note might be di fferent from the original. Case Management by SKIP Lee at 11/17/12 1036 Author: SKIP Lee Service: (none) Author Type: Trolley Collector Filed: 11/17/12 1038 Date of Service: 11/17/12 1036 Status: Signed Pediatric Dentist: SKIP Lee (Trolley Collector) Patient's emergency person to call is her sister, Rebeca Forte at [phone]. 11/17/12 1030 Discharge Planning Evaluation Admitting Diagnosis Shortness of breath Readmission No Living Arrangements Alone Support Systems Family members (Patient has many siblings living in [place].) Type of Residence Private residence House type House-1 story Steps to enter 1 Bathrooms on 1st Floor 1-Full Independent with ADL's Yes Independent with Mobility Yes Home Care Services No Mental Status Oriented Prior functional status Lives independently Anticipated Discharge Plan Post Acute Care Needs None at this time Plan communicated to patient/family Yes Resources Financial concerns No Transportation issues No (Family members can transport.) Patient/Family concerns No Prescription Plan Yes (She goes to [facility] Pharmacy phone number [phone] ([facility]) Previous home health equipment No Vascular access device No Ostomy/Drains/Appliances No ohnscarlet n, Radha Garcia RP - 11/16/2012 6:42 PM PDTFormatting of this note might be different from t he original. Progress Notes by Radha Estrella RP at 11/16/121841 Author: Radha Estrella RPH Service: (none) Author Type: Pharmacist Filed: 11/16/121841 Date of Service: 11/16/121841 Status: Signed Pediatric Dentist: Radha Estrella RPH (Pharmacist) Clinical Pharmacy Note - Renal Dose Adjustment Lowella Hayley HoneycuttJann 42 y.o. female Ht Readings from Last 1 Encounters: 11/16/12 1.6 m (5' 3") Wt Readings from Last 1 Encounters: 11/16/12 97.4 kg (214 lb 11.7 oz) No results found for this basename: creatinine Creatinine clearance cannot be calculated - Pharmacy to renally adjust medications per Dr. Hinton Plan: No current Scr. Will follow up once labs are available. Pharmacy will continue to follow and adjust as appropriate. Pharmacist: Radha Estrella 11/16/2012 6:42 PM documente d in this encounter H&P Notes Esau Hinton MD - 11/16/2012 4:58 PM PDTFormatting of this note might be differe nt from the original. H&P by Esau Hinton MD at 11/16/121657 Author: Esau Hinton MD Service: Hospitalist Author Type: Physician Filed: 11/16/121946 Date of Service: 11/16/121657 Status: Addendum Pediatric Dentist: Esau Hinton MD (Physician) Related Notes: Original Note by Esau Hinton MD (Physician) filed at 11/16/12 19 13 [facility] Service: Hospitalist Admission History & Physical Date of Admission: 11/16/2012 Requesting Physician: Dr. Wolf at [facility] in [facility], Emergency Departmen t Reason for Admission: Shortness of Breath, Bacterial Pneumonia, History Obtained From: patient, chart review CHIEF COMPLAINT: I have been feeling sick and have shortness of breath HISTORY OF PRESENT ILLNESS The patient is a 42 y.o. female with history of DM Type 2, HTN and Obesity who was transfer red from [facility] for evaluation of shortness of breath and abnorma l CT scan findings. According to the patient, she was doing well until one month ago when s he developed an ear infection for which she saw her physician at [facility] in [facility]. She was given some medications and her symptoms improved but labs at that time showed mild renal insufficiency. An appointment with Dr. James was made at [place]. She saw her and no further treatment was recommended as her renal functions were better. Two weeks late r she went back for a follow up and she was noted to have swelling in her legs and Dr. James prescribed oral Lasix which according to her did not help at all. She went to [facility] again yesterday and they gave her some stockings which she used overnight and noticed significant improvement in swelling. However, last night while asleep she suddenly woke up w ith shortness of breath, palpitation and mild grade fever. She denied any chest pain symptom s but she was concerned and went to the Clinic again and this time she was told to go to the ER for evaluation. At [facility] ER, initial labs were drawn which were stable with WBC of 8, Hgb of 10 and BUN / Creatinine of 25/0.84. A CT scan of the chest was done which according to the ER phys ician Dr. Wolf showed severe abnormalities with small bilateral pleural effusion and multipl e pulmonary nodules which appeared somewhat hazy and have air bronchogram. No PE was seen. T he hospitalist service at the outlying facility was not comfortable admitting the patient as she would need a pulmonary service consultation for further management. She was then transf erred to [facility] for further evaluation and treatment. Upon arrival to the medical floor, carla ent was noted to stable and in no respiratory distress. She denied any shortness of breath l maryann symptoms as well. Reported the nebulization had helped in improve breathing. She is now admitted for further evaluation. REVIEW OF SYSTEMS Review of Systems Constitutional: Positive for fever, activity change and fatigue. Negative for chills, diaph oresis, appetite change and unexpected weight change. HENT: Negative. Eyes: Negative. Respiratory: Positive for cough and shortness of breath. Negative for apnea, chest tightnes s, wheezing and stridor. Cardiovascular: Positive for leg swelling. Negative for palpitations. Gastrointestinal: Negative. Genitourinary: Negative. Musculoskeletal: Positive for myalgias. Skin: Negative. Neurological: Positive for weakness and light-headedness. Negative for tremors, seizures, s yncope, facial asymmetry, speech difficulty, numbness and headaches. Hematological: Negative. Psychiatric/Behavioral: Negative. Past Medical History Diagnosis Date Hyperlipidemia Hypertension Diabetes mellitus type II History reviewed. No pertinent past surgical history. Family History: Significant for CAD in her parents. There is also history of HTN and DM T2 in the family. No history of strokes, blood clots and no other pertinent family history. SOCIAL HISTORY: Patient lives in the [facility]. She is single and does not have childr en. 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 She denies any current use o f cigarettes but admits to smoking in the past for many years and quit a month ago. There is no history of recreational drug use at present or in the past. Admits to drinking alcohol w eekly for many years. Prior to Admission medications Medication Sig Start Date End Date Taking? Authorizing Provider Cholecalciferol 5000 UNITS capsule Take 5,000 Units by mouth daily. Yes Historical Provid er furosemide (LASIX) 20 MG tablet Take 40 mg by mouth daily. Yes Historical Provider glipiZIDE (GLUCOTROL) 5 MG 24 hr tablet Take 5 mg by mouth daily. Indications: Type 2 Diabe yamel Yes Historical Provider lisinopril (PRINIVIL,ZESTRIL) 20 MG tablet Take 60 mg by mouth daily. Indications: High Blo od Pressure Yes Historical Provider metoprolol (TOPROL-XL) 25 MG 24 hr tablet Take 25 mg by mouth daily. Yes Historical Provi nyla simvastatin (ZOCOR) 10 MG tablet Take 10 mg by mouth. Yes Historical Provider sitaGLIPtin (JANUVIA) 50 MG tablet Take 50 mg by mouth 2 (two) times daily. Indications: Ty pe 2 Diabetes Yes Historical Provider ergocalciferol (DRISDOL) 8000 UNIT/ML drops Take by mouth daily. 11/16/12 Yes Historical P edith PHYSICAL EXAM Vital Signs: BP 142/88 | Pulse 112 | Temp 98.3 F (36.8 C) (Oral) | Resp 17 | Ht 1.6 m (5' 3") | Wt 9 7.4 kg (214 lb 11.7 oz) | BMI 38.04 kg/m2 | SpO2 94% Physical Exam Vitals reviewed. Constitutional: She is oriented to person, place, and time. She appears well-developed and well-nourished. No distress. HENT: Head: Normocephalic and atraumatic. Right Ear: External ear normal. Left Ear: External ear normal. Nose: Nose normal. Mouth/Throat: No oropharyngeal exudate. Mildly dry mucous membranes. Eyes: Conjunctivae normal and EOM are normal. Pupils are equal, round, and reactive to ligh t. Right eye exhibits no discharge. Left eye exhibits no discharge. No scleral icterus. Cardiovascular: Normal rate, regular rhythm, normal heart sounds and intact distal pulses. Exam reveals no gallop and no friction rub. No murmur heard. Pulmonary/Chest: Effort normal. No respiratory distress. She has no wheezes. She has rales. She exhibits no tenderness. + Rales at both lung gurrola at mid zones and bases. Abdominal: Soft. Bowel sounds are normal. She exhibits no distension and no mass. There is no tenderness. There is no rebound and no guarding. Obese, soft and non tender. Musculoskeletal: Normal range of motion. She exhibits edema. She exhibits no tenderness. Mild pedal edema. Neurological: She is alert and oriented to person, place, and time. She has normal reflexes . She displays normal reflexes. No cranial nerve deficit. She exhibits normal muscle tone. C oordination normal. Skin: Skin is warm and dry. No rash noted. She is not diaphoretic. No erythema. No pallor. Psychiatric: She has a normal mood and affect. Her behavior is normal. Judgment and thought content normal. DATA CBC: WBC 8.2, Hgb 10, Hct 30 CMP: NA 137, K 4.2, BUN 25, Creatinine 0.84 CT Chest: Small bilateral pleural effusion and multiple pulmonary nodules which appears maximino ewhat hazy and have air bronchogram. PROBLEM LIST Principal Problem: *Shortness of breath Active Problems: Bacterial pneumonia, unspecified SIRS (systemic inflammatory response syndrome) Debility, unspecified DM (diabetes mellitus) HTN (hypertension) ASSESSMENT & PLAN Shortness of Breath: Multifactorial, possibly due to underlying infection and atypical pne umonia but CHF is not completely ruled out especially with symptoms of dyspnea, PND and LE e drea. She is saturating well on room air at this time. Will check an echocardiogram, give ox ygen as needed and also continue nebulization treatment for now. Will also start diuretics a nd follow progress. Bacterial Atypical Pneumonia NOS: CT chest results reviewed which showed mild bilateral eff usion, multiple pulmonary nodules which appears somewhat hazy and have air bronchogram. Firs t dose of IV Levaquin given this am at [facility]. She may not need antibiotics if echocardiogram reveals findings of low EF and CHF. Will send sputum for gram stain and cu lture. There was no Pulmonary service coverage this week but Dr. Reilly graciously accepte d to see the patient and give further opinion. Appreciate his help. Check CXR today and foll ow images from [facility]. SIRS: Mild grade fever was reported along with tachycardia which is still present at this t luanne. This is likely due to infection and pneumonia. Will send blood cultures and sputum anal ysis. Follow CBC periodically. DM Type 2: Check A1C level in am and continue Glipizide as scheduled. Monitor accu checks a nd adjust dose as needed. Hypertension: Will resume Lisinopril and Metoprolol as scheduled and adjust dose as needed. Metoprolol can be changed to Coreg if echo reveals low EF. Hyperlipidemia: Check fasting lipid profile in am and continue Simvastatin daily. Debility NOS: Secondary to shortness of breath and pneumonia. Will get PT evaluation if nee ded. Patient is ambulatory. Discharge plans when stable and improved perhaps in 3 to 5 days. Spent more than 70 minutes reviewing patient's labs, diagnostic tests, examination of patient, discussing plan of care with patient, coordination of care and answered their questions. Disposition: Admit to Inpatient Code Status: Full Code Primary Care Physician: No primary provider on file. ESAU HINTON MD 11/16/2012 documented in this encounter Consult Notes Sharla Reilly - 11/16/2012 7:29 PM PDT Consult* by Sharla Reilly MD at 11/16/121928 Author: Sharla Reilly MD Service: (none) Author Type: Physician Filed: 11/22/12858 Date of Service: 11/16/121928 Status: Signed Pediatric Dentist: Sharla Reilly MD (Physician) Related Notes: Original Note by Sharla Reilly MD (Physician) filed at 11/17/1221 01 [facility] Service: PULMONARY CRITICAL CARE CONSULT Note Maryam Forte 42 y.o. [id number] female No primary provider on file. Hospital Day: LOS: 0 days Date of Admission: 11/16/2012 Requesting Physician: ED provider/ Hospitalist Reason for CONSULTATION: History Obtained From: patient, family HISTORY OF PRESENT ILLNESS This is a 43-year-old female who has been recently diagnosed with diabetes, hypertension, a nd hypercholesterolemia who was in her usual state of health up until 2 months ago when she developed all these medical problems. The patient has been noticing over the past couple of weeks that her legs have been getting swollen and she has gained significant weight. The pat ient stated that the day before yesterday she woke up feeling short of breath, gasping for a ir. She sat until the morning and she went to the clinic where she had a chest x-ray and a C AT scan that did reveal some bilateral nodules and infiltrate according to the report, also bilateral pleural effusion. The patient was transferred to [facility] fo r further care. The patient did not have any white count. Denies any fever or any chills. Th e patient denies any cough with any production of phlegm. The patient stated though that her legs had swollen up significantly since last Thursday. The patient also had noticed that h er shortness of breath had gotten worse up walking from the car to her workplace. The patien t has no known cardiac history, but she drinks on a weekly basis. She drinks at least one da y of the week. She used to drink more before. She has been a drinker since the age of 17. Past Medical History Diagnosis Date Hyperlipidemia Hypertension Diabetes mellitus type II History reviewed. No pertinent past surgical history. Prescriptions prior to admission Medication Sig Dispense Refill Cholecalciferol 5000 UNITS capsule Take 5,000 Units by mouth daily. furosemide (LASIX) 20 MG tablet Take 40 mg by mouth daily. glipiZIDE (GLUCOTROL) 5 MG 24 hr tablet Take 5 mg by mouth daily. Indications: Type 2 D iabetes lisinopril (PRINIVIL,ZESTRIL) 20 MG tablet Take 60 mg by mouth daily. Indications: High Blood Pressure metoprolol (TOPROL-XL) 25 MG 24 hr tablet Take 25 mg by mouth daily. simvastatin (ZOCOR) 10 MG tablet Take 10 mg by mouth. sitaGLIPtin (JANUVIA) 50 MG tablet Take 50 mg by mouth 2 (two) times daily. Indications : Type 2 Diabetes No Known Allergies Family History Problem Relation Age of Onset Cancer Mother Diabetes type II Mother Early Mother Heart disease Mother Alcohol abuse Father Coronary art dis Father Diabetes type II Father Heart disease Father High cholesterol Father Hypertension Father Asthma Sister Diabetes type II Sister Cancer Maternal Grandmother Diabetes type II Paternal Grandmother Cancer Cousin Social History: 25 PYSHX quit 2 months ago Drinks beer on weekly base Scheduled Medications cholecalciferol 5,000 Units Oral Daily furosemide 40 mg Oral Daily glipiZIDE 5 mg Oral Daily heparin (porcine) 5,000 Units Subcutaneous Q8H ipratropium-albuterol 3 mL Nebulization Q4H WA levofloxacin 750 mg Intravenous Q24H lisinopril 20 mg Oral Daily metoprolol 25 mg Oral Daily omeprazole 20 mg Oral QAM AC Or pantoprazole 40 mg Intravenous QAM AC simvastatin 20 mg Oral Nightly sitaGLIPtin 50 mg Oral BID DISCONTD: heparin (porcine) 5,000 Units Subcutaneous Q8H DISCONTD: ipratropium-albuterol 3 mL Nebulization Q4H WA DISCONTD: levofloxacin 750 mg Intravenous Q24H DISCONTD: omeprazole 20 mg Oral QAM AC DISCONTD: pantoprazole 40 mg Intravenous QAM AC Continuous Infusions PRN Medications acetaminophen, acetaminophen, guaiFENesin, HYDROcodone-acetaminophen, HYDROcodone-acetamino phen, HYDROmorphone, HYDROmorphone, LORazepam, LORazepam, ondansetron, ondansetron, polyethy ignacio glycol, zolpidem, DISCONTD: acetaminophen, DISCONTD: acetaminophen, DISCONTD: guaiFENes in, DISCONTD: HYDROcodone-acetaminophen, DISCONTD: HYDROcodone-acetaminophen, DISCONTD: HYDR Omorphone, DISCONTD: HYDROmorphone, DISCONTD: ondansetron, DISCONTD: ondansetron DISCONTD: polyethylene glycol, DISCONTD: zolpidem Allergy: No Known Allergies OBJECTIVE Vital Signs: BP 142/88 | Pulse 112 | Temp 98.3 F (36.8 C) (Oral) | Resp 17 | Ht 1.6 m (5' 3") | Wt 9 7.4 kg (214 lb 11.7 oz) | BMI 38.04 kg/m2 | SpO2 94% | ? No I&O Detailed Table: Weight change: Hemodynamics Last 24hrs: ROS: Rest of the ROS Unremarkable except what mentioned in the H&P. Examination: APPEARANCE: The patient is a pleasant sitting in no apparent distress. VITALS: Reviewed as listed. HEAD: NC/AT. EYES: PERRLA. EOMI. Non-icteric sclera. ENT: No oropharyngeal erythema. Buccal mucosa is moist. No gross ear or nasal prob lems noted. NECK: Supple. +raised JVD or thyromegaly. LYMPHATIC: No palpable lymphadenopathy. LUNGS: Bilateral basilar crackles. HEART: S1, S2, no pericardial rub noted. ABDOMEN: Full, soft, no tenderness. Bowel sounds are present. No organomegaly or bruit s noted. EXTREMITIES: 2+ pedal edema noted. No cyanosis or clubbing. Peripheral pulses palpable bu t diminished in LE. LABS: Recent Results (from the past 24 hour(s)) POCT GLUCOSE Collection Time 11/16/12 6:14 PM Component Value Range GLUCOSE,POC SCREEN 164 (*) 65 - 99 mg/dL IMAGING: None avialable only reports. PROBLEM LIST Principal Problem: *Shortness of breath Active Problems: Bacterial pneumonia, unspecified SIRS (systemic inflammatory response syndrome) Debility, unspecified DM (diabetes mellitus) HTN (hypertension) ASSESSMENT & PLAN I think the findings on this lady are suggestive of congestive heart failure. The patient h ad perhaps brought in from the other facility elevated BNP, normal white count, and also the fact that she had woken up in the middle of the night with shortness of breath suggestive o f paroxysmal nocturnal dyspnea, also bilateral leg swelling, all hinting toward cardiac etio logy. The patient has significant drinking history that is probably hinting toward alcoholic cardiomyopathy. I do not think there is a need for antibiotic. We will discontinue that. e patient will be diuresed. Cardiology consultation should be obtained. I thank Dr Jennifer Hinton for giving me the opportunity to take part in the care of this ward p atient with multiple complex medical problems SHARLA REILLY MD 11/16/2012 documente d in this encounter Plan of Treatment +--------+ + + + + | Date | Type | Specialty | Care Team | Description | +--------+ + + + + | 01/17/ | Appointment | Radiology | Bill Arevalo DNP | | | 2019 | | | [address] | | | | | | [place] | | | | | | [id number] | | | | | | | | +--------+ + + + + | 01/17/ | Office | Vascular Surgery | Bill Arevalo, DNP | | | 2019 | Visit | | [address] | | | | | | [place] | | | | | | [address] | | | | | | | | +--------+ + + + + | 05/22/ | Office | Nephrology | Mariana Cortez, | | | 2020 | Visit | | MD [address] | | | | | | [address] [place] | | | | | | [place] [address] | | | | | | [phone] | | | | | | | | +--------+ + + + + documented as of this encounter Procedures + +--------+ + + + | Procedure Name | Priori | Date/Time | Associated Diagnosis | Comments | | | ty | | | | + +--------+ + + + | VAS LOWER EXTREMITY | Routin | 11/18/2012 | | Results for this | | VENOUS BILATERAL | e | 10:28 AM | | procedure are in the | | | | PDT | | results section. | + +--------+ + + + | ECHO COMPLETE | Routin | 11/17/2012 | | Results for this | | | e | 9:35 AM | | procedure are in the | | | | PDT | | results section. | + +--------+ + + + | XR CHEST 2 VIEWS | Routin | 11/16/2012 | | Results for this | | | e | 9:31 PM | | procedure are in the | | | | PDT | | results section. | + +--------+ + + + | CULTURE, BLOOD, 2ND | Timed | 11/16/2012 | | Results for this | | SPECIMEN (NON-ORD) | | 6:32 PM | | procedure are in the | | | | PDT | | results section. | + +--------+ + + + | CULTURE, BLOOD | Timed | 11/16/2012 | | Results for this | | | | 6:28 PM | | procedure are in the | | | | PDT | | results section. | + +--------+ + + + documented in this encounter Results VAS Lower Extremity Venous Bilateral (11/18/2012 10:28 AM PDT) + + | Specimen | + + | | + + + + + | Impressions | Performed At | + + + | 1. No evidence of lower extremity deep vein thrombosis. | | | | | | AM | | + + + + + + | Narrative | Performed At | + + + | [facility] LOWER EXTREMITY VENOUS DOPPLER BILAT | | | 11/18/2012 10:28 AM HISTORY: Lower extremity swelling or pain. | | | TECHNIQUE: Duplex ultrasound of the deep veins of both legs was | | | performed. FINDINGS: The deep veins of both legs demonstrate | | | color flow and compressibility where possible. There was respiratory | | | variation and augmentation noted. | | + + + + + | Procedure Note | + + | Aniket, Rad Conversion - 10/01/2018 7:44 PM PDT KSENIADEIDRE Hayley JANN LOWER EXTREMITY | | VENOUS DOPPLER BILAT1 10:28 AM HISTORY:Lower extremity swelling or pain. | | TECHNIQUE:Duplex ultrasound of the deep veins of both legs was performed. FINDINGS:The | | deep veins of both legs demonstrate color flow and compressibility where possible. There | | was respiratory variation and augmentation noted. IMPRESSION: 1. No evidence of lower | | extremity deep vein thrombosis. Electronically signed by Trae Olguin MD on | | 11/18/2012 10:37 AM | |TECHNIQUE: | |Duplex ultrasound of the deep veins of both legs was performed. | | | |FINDINGS: | |The deep veins of both legs demonstrate color flow and compressibility where possible. Ther e was respiratory variation and augmentation noted. | | | |IMPRESSION: | |1. No evidence of lower extremity deep vein thrombosis. | | | | | + + ECHO Complete (11/17/2012 9:35 AM PDT) + + | Specimen | + + | | + + + + + | Impressions | Performed At | + + + | 1. This was a technically difficult study with suboptimal views. 2. | | | Overall left ventricular systolic function is normal with, an EF | | | between 65 - 70 %. 3. The right ventricle is mildly enlarged | | | measuring between 3.4 - 3.7 cm. 4. Mild-possibly moderate mitral | | | regurgitation is present. 5. There is mild pulmonary hypertension. | | + + + + + + | Narrative | Performed At | + + + | Patient Name: MARYAM FORTE Date of : 1970 | | | Performing Physician: Yung Duffy MD | | | | | | INDICATIONS shortness of breath CONCLUSIONS | | | 1. This was a technically difficult study with suboptimal | | | views. 2. Overall left ventricular systolic function is normal with, | | | an EF between 65 - 70 %. 3. The right ventricle is mildly enlarged | | | measuring between 3.4 - 3.7 cm. 4. Mild-possibly moderate mitral | | | regurgitation is present. 5. There is mild pulmonary hypertension. | | | FINDINGS -------- ECG rhythm: Resting tachycardia (HR>100bpm). | | | Study: A 2-dimensional transthoracic echocardiogram with m-mode, | | | spectral and color flow Doppler was perfomed. Study: This was a | | | technically difficult study with suboptimal views. Left Ventricle: | | | Overall left ventricular systolic function is normal with, an EF | | | between 65 - 70 %. Right Ventricle: The right ventricle is mildly | | | enlarged measuring between 3.4 - 3.7 cm. Left Atrium: The left atrium | | | is moderately dilated. Right Atrium: The right atrial size is | | | normal. Aortic Valve: The aortic valve was not well visualized. | | | Aortic Valve: There is no evidence of aortic regurgitation. Aortic | | | Valve: There is no evidence of aortic stenosis. Mitral Valve: The | | | mitral valve is normal. Mitral Valve: Mild-possibly moderate mitral | | | regurgitation is present. Mitral Valve: Mild mitral annular | | | calcification present. Tricuspid Valve: The tricuspid valve appears | | | structurally normal. Tricuspid Valve: Mild tricuspid regurgitation | | | present. Tricuspid Valve: There is mild pulmonary hypertension. | | | Tricuspid Valve: The right ventricular systolic pressure (pulmonary | | | artery systolic pressure), as measured by Doppler, is 26 mmhg + 10-15 | | | mmhg = 36-41 mmhg Pulmonic Valve: The pulmonic valve is normal. | | | Pulmonic Valve: Trace pulmonic regurgitation. Pulmonic Valve: A | | | wave normal. Pericardium: There is a smallecho free space ? pericial | | | fat pad vs trivial pericardial effusion present. IVC/Hepatic Veins: | | | The IVC is dilated (>2.5cm) and collapses <50% with sniff, consistent | | | with central venous pressures of 15-20mmHg. MEASUREMENTS | | | Ao Diam: 2.45 cm LA Diam: 4.25 cm LA Major: | | | 5.07 cm EDV(Teich): 102.75 ml IVSd: 1.14 cm LVIDd: 4.70 cm | | | LVPWd: 1.27 cm LVOT Diam: 2.07 cm %FS: 39.48 % | | | EF(Teich): 69.99 % ESV(Teich): 30.83 ml IVSs: 1.44 cm | | | LVIDs: 2.84 cm LVPWs: 2.00 cm SV(Teich): 71.91 ml RA | | | Major: 4.56 cm RVIDd: 3.57 cm LVEF MOD A4C: 62.94 % SV MOD | | | A4C: 58.07 ml LVEDV MOD A4C: 92.26 ml LVLd A4C: 6.98 cm | | | LVESV MOD A4C: 34.18 ml LVLs A4C: 5.31 cm LAESV(A-L): 76.45 | | | ml LAESV Index (A-L): 38.22 ml/m2 LAAs A2C: 20.83 cm2 LAESV | | | A-L A2C: 74.85 ml LALs A2C: 4.92 cm LAAs A4C: 20.05 cm2 | | | LAESV A-L A4C: 73.60 ml LALs A4C: 4.63 cm Ao Diam: 2.61 cm | | | LA Diam: 4.72 cm LA/Ao: 1.80 %FS: 39.64 % EDV(Teich): | | | 146.86 ml EF(Teich): 69.63 % ESV(Teich): 44.59 ml IVSd: | | | 1.16 cm IVSs: 1.39 cm LVIDd: 5.49 cm LVIDs: 3.31 cm | | | LVPWd: 0.97 cm LVPWs: 1.46 cm SV(Teich): 102.27 ml D-E | | | Excursion: 2.17 cm E-F Surry: 0.11 m/s EPSS: 0.57 cm IVC | | | diameter: 2.10 cm IVC collapse: 1.17 cm IVC % collapse: | | | 42.33 % HR: 100.18 BPM AV maxP.48 mmHg AV meanP.63 | | | mmHg AV Vmax: 1.27 m/s AV Vmean: 0.91 m/s AV VTI: 24.93 | | | cm JESUS Vmax: 2.62 cm2 JESUS (VTI): 2.95 cm2 LVCI Dopp: 3.55 | | | l/minm2 LVCO Dopp: 7.10 l/min HR: 96.60 BPM LVOT maxPG: | | | 3.90 mmHg LVOT meanP.12 mmHg LVSI Dopp: 36.79 ml/m2 LVSV | | | Dopp: 73.58 ml LVOT Vmax: 0.98 m/s LVOT Vmean: 0.68 m/s | | | LVOT VTI: 21.77 cm MCO: 443.62 ms MR maxP.71 mmHg MR | | | Vmax: 3.01 m/s MV A Drake: 0.54 m/s MV DecT: 112.93 ms MV E | | | Drake: 0.94 m/s MV E/A Ratio: 1.82 MV PHT: 24.43 ms MVA By | | | PHT: 9.00 cm2 MV A Dur: 63.77 ms IVRT: 72.08 ms Septal e': | | | 0.08 m/s Septal E/e': 11.11 Lateral e': 0.09 m/s Lateral | | | E/e': 9.46 P Vein A: 0.30 m/s P Vein D: 0.72 m/s P Vein | | | S/D Ratio: 0.53 P Vein S: 0.38 m/s HR: 101.12 BPM PV | | | maxP.57 mmHg PV meanP.74 mmHg PV Vmax: 0.80 m/s PV | | | Vmean: 0.63 m/s PV VTI: 17.02 cm TR maxP.46 mmHg TR | | | Vmax: 2.57 m/s Telephone Order Supervisor: MARIA EUGENIA Authenticated by: Yung Duffy | | | Report Date/Time: 11-17-2012 13:18:28 | | + + + + + | Procedure Note | + + | Aniket, Rad Conversion - 10/01/2018 7:44 PM PDT Patient Name: Melanie FORTE of | | : 1970 Performing Physician: Yung Duffy | | MD INDICATIONS s | | hortness of breath CONCLUSIONS 1. This was a technically difficult study with | | suboptimal views.2. Overall left ventricular systolic function is normal with, an EF | | between 65 - 70 %.3. The right ventricle is mildly enlarged measuring between 3.4 - 3.7 | | cm.4. Mild-possibly moderate mitral regurgitation is present.5. There is mild pulmonary | | hypertension. FINDINGS--------ECG rhythm: Resting tachycardia (HR>100bpm).Study: A | | 2-dimensional transthoracic echocardiogram with m-mode, spectral and color flow Doppler | | was perfomed.Study: This was a technically difficult study with suboptimal views.Left | | Ventricle: Overall left ventricular systolic function is normal with, an EF between 65 - | | 70 %.Right Ventricle: The right ventricle is mildly enlarged measuring between 3.4 - | | 3.7 cm.Left Atrium: The left atrium is moderately dilated.Right Atrium: The right atrial | | size is normal.Aortic Valve: The aortic valve was not well visualized.Aortic Valve: | | There is no evidence of aortic regurgitation.Aortic Valve: There is no evidence of | | aortic stenosis.Mitral Valve: The mitral valve is normal.Mitral Valve: Mild-possibly | | moderate mitral regurgitation is present.Mitral Valve: Mild mitral annular calcification | | present.Tricuspid Valve: The tricuspid valve appears structurally normal.Tricuspid | | Valve: Mild tricuspid regurgitation present.Tricuspid Valve: There is mild pulmonary | | hypertension.Tricuspid Valve: The right ventricular systolic pressure (pulmonary artery | | systolic pressure), as measured by Doppler, is 26 mmhg + 10-15 mmhg = 36-41 mmhgPulmonic | | Valve: The pulmonic valve is normal.Pulmonic Valve: Trace pulmonic | | regurgitation.Pulmonic Valve: A wave normal.Pericardium: There is a smallecho free space | | ? pericial fat pad vs trivial pericardial effusion present.IVC/Hepatic Veins: The IVC | | is dilated (>2.5cm) and collapses <50% with sniff, consistent with central venous | | pressures of 15-20mmHg. MEASUREMENTS Ao Diam: 2.45 cmLA Diam: 4.25 cmLA | | Major: 5.07 cmEDV(Teich): 102.75 mlIVSd: 1.14 cmLVIDd: 4.70 cmLVPWd: 1.27 | | cmLVOT Diam: 2.07 cm%FS: 39.48 %EF(Teich): 69.99 %ESV(Teich): 30.83 mlIVSs: | | 1.44 cmLVIDs: 2.84 cmLVPWs: 2.00 cmSV(Teich): 71.91 mlRA Major: 4.56 cmRVIDd: | | 3.57 cmLVEF MOD A4C: 62.94 %SV MOD A4C: 58.07 mlLVEDV MOD A4C: 92.26 mlLVLd A4C: | | 6.98 cmLVESV MOD A4C: 34.18 mlLVLs A4C: 5.31 cmLAESV(A-L): 76.45 mlLAESV Index | | (A-L): 38.22 ml/m2LAAs A2C: 20.83 [id number] A-L A2C: 74.85 mlLALs A2C: 4.92 | | cmLAAs A4C: 20.05 [id number] A-L A4C: 73.60 mlLALs A4C: 4.63 cmAo Diam: 2.61 cmLA | | Diam: 4.72 cmLA/Ao: 1.80%FS: 39.64 %EDV(Teich): 146.86 mlEF(Teich): 69.63 | | %ESV(Teich): 44.59 mlIVSd: 1.16 cmIVSs: 1.39 cmLVIDd: 5.49 cmLVIDs: 3.31 | | cmLVPWd: 0.97 cmLVPWs: 1.46 cmSV(Teich): 102.27 mlD-E Excursion: 2.17 cmE-F | | Surry: 0.11 m/sEPSS: 0.57 cmIVC diameter: 2.10 cmIVC collapse: 1.17 cmIVC % | | collapse: 42.33 %HR: 100.18 BPMAV maxP.48 mmHgAV meanP.63 mmHgAV Vmax: | | 1.27 m/Thomas Vmean: 0.91 m/Thomas VTI: 24.93 cmAVA Vmax: 2.62 cm2AVA (VTI): 2.95 | | [id number] Dopp: 3.55 [id number] Dopp: 7.10 l/minHR: 96.60 BPMLVOT maxP.90 | | mmHgLVOT meanP.12 mmHgLVSI Dopp: 36.79 ml/m2LVSV Dopp: 73.58 mlLVOT Vmax: | | 0.98 m/sLVOT Vmean: 0.68 m/sLVOT VTI: 21.77 cmMCO: 443.62 msMR maxP.71 | | mmHgMR Vmax: 3.01 m/sMV A Drake: 0.54 m/sMV DecT: 112.93 msMV E Drake: 0.94 m/sMV | | E/A Ratio: 1.82MV PHT: 24.43 msMVA By PHT: 9.00 cm2MV A Dur: 63.77 msIVRT: | | 72.08 msSeptal e': 0.08 m/sSeptal E/e': 11.11Lateral e': 0.09 m/sLateral E/e': | | 9.46P Vein A: 0.30 m/sP Vein D: 0.72 m/sP Vein S/D Ratio: 0.53P Vein S: 0.38 | | m/sHR: 101.12 BPMPV maxP.57 mmHgPV meanP.74 mmHgPV Vmax: 0.80 m/sPV | | Vmean: 0.63 m/sPV VTI: 17.02 cmTR maxP.46 mmHgTR Vmax: 2.57 m/s | | Telephone Order Supervisor: GDAuthenticated by: Yung MUSTAFAeport Date/Time: 11-17-2012 13:18:28 | | IMPRESSION: 1. This was a technically difficult study with suboptimal views.2. Overall | | left ventricular systolic function is normal with, an EF between 65 - 70 %.3. The right | | ventricle is mildly enlarged measuring between 3.4 - 3.7 cm.4. Mild-possibly moderate | | mitral regurgitation is present.5. There is mild pulmonary hypertension. | |LVPWd: 1.27 cm | |LVOT Diam: 2.07 cm | |%FS: 39.48 % | |EF(Teich): 69.99 % | |ESV(Teich): 30.83 ml | |IVSs: 1.44 cm | |LVIDs: 2.84 cm | |LVPWs: 2.00 cm | |SV(Teich): 71.91 ml | |RA Major: 4.56 cm | |RVIDd: 3.57 cm | |LVEF MOD A4C: 62.94 % | |SV MOD A4C: 58.07 ml | |LVEDV MOD A4C: 92.26 ml | |LVLd A4C: 6.98 cm | |LVESV MOD A4C: 34.18 ml | |LVLs A4C: 5.31 cm | |LAESV(A-L): 76.45 ml | |LAESV Index (A-L): 38.22 ml/m2 | |LAAs A2C: 20.83 cm2 | |LAESV A-L A2C: 74.85 ml | |LALs A2C: 4.92 cm | |LAAs A4C: 20.05 cm2 | |LAESV A-L A4C: 73.60 ml | |LALs A4C: 4.63 cm | |Ao Diam: 2.61 cm | |LA Diam: 4.72 cm | |LA/Ao: 1.80 | |%FS: 39.64 % | |EDV(Teich): 146.86 ml | |EF(Teich): 69.63 % | |ESV(Teich): 44.59 ml | |IVSd: 1.16 cm | |IVSs: 1.39 cm | |LVIDd: 5.49 cm | |LVIDs: 3.31 cm | |LVPWd: 0.97 cm | |LVPWs: 1.46 cm | |SV(Teich): 102.27 ml | |D-E Excursion: 2.17 cm | |E-F Surry: 0.11 m/s | |EPSS: 0.57 cm | |IVC diameter: 2.10 cm | |IVC collapse: 1.17 cm | |IVC % collapse: 42.33 % | |HR: 100.18 BPM | |AV maxP.48 mmHg | |AV meanP.63 mmHg | |AV Vmax: 1.27 m/s | |AV Vmean: 0.91 m/s | |AV VTI: 24.93 cm | |JESUS Vmax: 2.62 cm2 | |JESUS (VTI): 2.95 cm2 | |LVCI Dopp: 3.55 l/minm2 | |LVCO Dopp: 7.10 l/min | |HR: 96.60 BPM | |LVOT maxP.90 mmHg | |LVOT meanP.12 mmHg | |LVSI Dopp: 36.79 ml/m2 | |LVSV Dopp: 73.58 ml | |LVOT Vmax: 0.98 m/s | |LVOT Vmean: 0.68 m/s | |LVOT VTI: 21.77 cm | |MCO: 443.62 ms | |MR maxP.71 mmHg | |MR Vmax: 3.01 m/s | |MV A Drake: 0.54 m/s | |MV DecT: 112.93 ms | |MV E Drake: 0.94 m/s | |MV E/A Ratio: 1.82 | |MV PHT: 24.43 ms | |MVA By PHT: 9.00 cm2 | |MV A Dur: 63.77 ms | |IVRT: 72.08 ms | |Septal e': 0.08 m/s | |Septal E/e': 11.11 | |Lateral e': 0.09 m/s | |Lateral E/e': 9.46 | |P Vein A: 0.30 m/s | |P Vein D: 0.72 m/s | |P Vein S/D Ratio: 0.53 | |P Vein S: 0.38 m/s | |HR: 101.12 BPM | |PV maxP.57 mmHg | |PV meanP.74 mmHg | |PV Vmax: 0.80 m/s | |PV Vmean: 0.63 m/s | |PV VTI: 17.02 cm | |TR maxP.46 mmHg | |TR Vmax: 2.57 m/s | | | |Telephone Order Supervisor: GD | |Authenticated by: Yung Duffy MD | |Report Date/Time: 11-17-2012 13:18:28 | | | |IMPRESSION: | |1. This was a technically difficult study with suboptimal views. | |2. Overall left ventricular systolic function is normal with, an EF between 65 - 70 %. | |3. The right ventricle is mildly enlarged measuring between 3.4 - 3.7 cm. | |4. Mild-possibly moderate mitral regurgitation is present. | |5. There is mild pulmonary hypertension. | + + XR Chest 2 Vws (11/16/2012 9:31 PM PDT) + + | Specimen | + + | | + + + + + | Impressions | Performed At | + + + | 1. Findings suggestive of pulmonary edema. Superimposed multifocal | | | pneumonia is not entirely excluded. 2. Fullness of the hilar | | | region may reflect adenopathy. Continued surveillance with chest x-ray | | | is recommended. If there is no clearance, consider a CT of the chest | | | with contrast. Electronically signed by Karthikeyan Peoples MD on | | | 11/16/2012 10:16 PM | | + + + + + + | Narrative | Performed At | + + + | MARYAM Hardy JANN 1970 42 years Female XR CHEST 2 VIEW FRONTAL | | | AND LATERAL 11/16/2012 9:31 PM INDICATION: Shortness of breath, | | | systemic inflammatory response syndrome COMPARISON: None. | | | TECHNIQUE: Two view chest, PA and lateral views FINDINGS: The | | | heart is normal in size with no mediastinal widening. There is | | | fullness of the bilateral hilar region which may reflect adenopathy or | | | pulmonary enlargement. There is blunting of the bilateral posterior | | | costophrenic angle. Patchy reticular markings are noted in the lower | | | lungs bilaterally. There is mild vascular congestion. No focal | | | airspace consolidation is present. There are no acute rib fractures. | | | | | + + + + + | Procedure Note | + + | Aniket, Rad Conversion - 10/01/2018 7:44 PM PDT [facility]1970 42 years | | FemaleXR CHEST 2 VIEW FRONTAL AND [id number]/8/2013 9:31 PM INDICATION: Shortness of | | breath, systemic inflammatory response syndrome COMPARISON: None. TECHNIQUE: Two view | | chest, PA and lateral views FINDINGS: The heart is normal in size with no mediastinal | | widening. There is fullness of the bilateral hilar region which may reflect adenopathy | | or pulmonary enlargement. There is blunting of the bilateral posterior costophrenic | | angle. Patchy reticular markings are noted in the lower lungs bilaterally. There is mild | | vascular congestion. No focal airspace consolidation is present. There are no acute rib | | fractures. IMPRESSION: 1. Findings suggestive of pulmonary edema. Superimposed | | multifocal pneumonia is not entirely excluded.2. Fullness of the hilar region may | | reflect adenopathy. Continued surveillance with chest x-ray is recommended. If there is | | no clearance, consider a CT of the chest with contrast. | |costophrenic angle. Patchy reticular | |markings are noted in the lower lungs bilaterally. There is mild vascular congestion. No fo glynn airspace consolidation is present. There are no acute rib fractures. | | | |IMPRESSION: | |1. Findings suggestive of pulmonary edema. Superimposed multifocal pneumonia is not entire ly excluded. | |2. Fullness of the hilar region may reflect adenopathy. Continued surveillance with chest x-ray is recommended. If there is no clearance, consider a CT of the chest with contrast. | | | | | + + Culture, Blood, 2nd Specimen (11/16/2012 6:32 PM PDT) + + | Specimen | + + | Blood specimen | | (specimen) | + + + + + | Narrative | Performed At | + + + | Specimen Description BLOOD, PERIPHERAL DRAW | EXTERNAL LAB | | Testing performed | | | at [facility];[address] [place] [address];[place] [address] SPECIAL REQUESTS | | | RAC | | | Testing performed at [facility];[address] [place] [address];[place] [address] | | | CULTURE NO GROWTH 6 DAYS | | | Testing performed | | | at [facility], [address] [place] [address] REPORT STATUS | | | 11/22/2012 FINAL | | + + + + +---------+ + + | Performing | Address | City/State/Zipcode | Phone Number | | Organization | | | | + +---------+ + + | EXTERNAL LAB | | | | + +---------+ + + Culture, Blood (11/16/2012 6:28 PM PDT) + + | Specimen | + + | Blood specimen | | (specimen) | + + + + + | Narrative | Performed At | + + + | Specimen Description BLOOD, PERIPHERAL DRAW | EXTERNAL LAB | | Testing performed | | | at [facility];[address] [place] [id number] SPECIAL REQUESTS | | | RAC | | | Testing performed at [facility];[address] [place] [id number] | | | CULTURE NO GROWTH 6 DAYS | | | Testing performed | | | at [facility], [address] [place] [address] REPORT STATUS | | | 11/22/2012 FINAL | | + + + + +---------+ + + | Performing | Address | City/State/Zipcode | Phone Number | | Organization | | | | + +---------+ + + | EXTERNAL LAB | | | | + +---------+ + + documented in this encounter Visit Diagnoses + + | Diagnosis | + + | Shortness of breath | + + | Bacterial pneumonia, unspecified | + + | DM (diabetes mellitus) ([facility]) Type II or unspecified type diabetes mellitus without | | mention of complication, not stated as uncontrolled | + + | HTN (hypertension) Unspecified essential hypertension | + + | SIRS (systemic inflammatory response syndrome) ([facility]) Systemic inflammatory response | | syndrome, unspecified | + + | Debility, unspecified | + + documented in this encounter
--- OUTSIDE RECORDS SUMMARY | ~2019-11-09 | XMS | Encounter Summary ---
Demographics + + + | Address | [address] | | | [place] [address] | + + + | Home Phone [...] Team Providers + +------+ + | Care Reinforced Ironworker Name | Role | Phone | + +------+ + | Ronel Jacobson PA-C | PCP | | + +------+ + Reason for Visit + + + | Reason | Comments | + + + | Follow-up | 1 year allergy inj | + + + Encounter Details +--------+---------+ + + + | Date | Type | Department | Care Team | Description | +--------+---------+ + + + | 01/14/ | Office | [facility] | Henok Luther MD | Chronic allergic | | 2018 | Visit | OTOLARYNGOLOGY [address] | [address] [place] | rhinitis due to | | | | [address] | [address] [place], [place] | animal hair and | | | | [place], [place] | [address] | dander (Primary Dx); | | | | [address] | | Asthmatic | | | | [phone] | | bronchitis, | | | | | | unspecified asthma | | | | | | severity, | | | | | | uncomplicated | +--------+---------+ + + + Social History [...] + + + + | Pulse | 117 | 01/14/2018 3:58 PM | | | | | PST | | + + + + + | Temperature | - | - | | + + + + + | Respiratory Rate | 16 | 01/14/2018 3:58 PM | | | | | PST | | + + + + + | Oxygen Saturation | 98% | 01/14/2018 3:58 PM | | | | | PST | | + + + + + | Inhaled Oxygen | - | - | | | Concentration | | | | + + + + + | Weight | 90.7 kg (200 lb) | 01/14/2018 3:58 PM | | | | | PST | | + + + + + | Height | 160 cm (5' 3") | 01/14/2018 3:58 PM | | | | | PST | | + + + + + | Body Mass Index | 35.43 | 01/14/2018 3:58 PM | | | | | PST | | + + + + + documented in this encounter Progress Notes Henok Luther MD - 01/14/2018 3:45 PM PSTShannon is 3 years into her allergy injections a nd she is noted that particularly for this last year she had very little problems with her s easonal allergies. She did have problems with the smoke level was high in the air but other horn feels she is doing much better. No other ENT complaints today. She's having no proble ms with her injections. She occasionally gets some cough but overall her asthma is doing mu ch better. Examination: The nasal passages are wide open with good space for breathing. There is no e vidence of any abnormal drainage or inflammation. Skin of the face nose and ears all appear ed to be healthy. Neck was smooth without any mass or lymphadenopathy noted. Impression: None seasonal allergic rhinitis. #2 asthma Plan: Patient will go to every other week for injections for the next year and then be re-s een at that point. Typically she would then go to taking 1 injection per month for the foll owing year. documented in this encounter Plan of Treatment +--------+ + + + + | Date | Type | Specialty | Care Team | Description | +--------+ + + + + | 01/17/ | Appointment | Radiology | Bill Arevalo DNP | | | 2019 | | | [address] | | | | | | [place] | | | | | | [address] | | | | | | | | +--------+ + + + + | 01/17/ | Office | Vascular Surgery | Bill Arevalo DNP | | | 2019 | Visit | | [address] | | | | | | [place] | | | | | | [address] | | | | | | | | +--------+ + + + + | 05/22/ | Office | Nephrology | Mariana Cortez, | | | 2020 | Visit | | [address] | | | | | | [address] [place] | | | | | | [place] [address] | | | | | | [phone] | | | | | | | | +--------+ + + + + documented as of this encounter Visit Diagnoses + + | Diagnosis | + + | Chronic allergic rhinitis due to animal hair and dander - Primary | + + | Asthmatic bronchitis, unspecified asthma severity, uncomplicated | + + documented in this encounter
--- OUTSIDE RECORDS SUMMARY | ~2019-11-09 | XMS | Encounter Summary ---
Demographics + + + | Address | [address] | | | [place] [address] | + + + | Home Phone [...] Team Providers + +------+ + | Care Security Systems Administrator Name | Role | Phone | [...] [address] [place] | | | | | [place], [place] | [place] [address] | | | | | [address] | [phone] | | | | | [phone] | | | +--------+ + + + [...] [place] | | | | | | [address] | | | | | | | | +--------+ + + + + | 01/17/ | Office | Vascular Surgery | Bill Arevalo DNP | | | 2019 | Visit | | [address] | | | | | | [place] | | | | | | [address] | | | | | | | | +--------+ + + + + | 05/22/ | Office | Nephrology | Mariana Cortez W, | | | 2020 | Visit | | [address] | | | | | | [address] | | | | | | [place] [address] | | | | | | [phone] | | | | | | | | +--------+ + + + + documented as of this encounter Procedures + +--------+ + + + | Procedure Name | Priori | Date/Time | Associated Diagnosis | Comments | | | ty | | | | + +--------+ + + + | PTH + CALCIUM | Routin | 05/10/2013 | | Results for this | | | e | | | procedure are in the | | | | | | results section. | + +--------+ + + + documented in this encounter Results PTH + Calcium (05/10/2013) + +-------+ + + + | Component | Value | Ref Range | Performed | Pathologist | | | | | At | Signature | + +-------+ + + + | PTH INTACT | 9.36 | pg/mL | | | + +-------+ + + + | Vit D, | 28 | | | | | 25-Hydroxy | | | | | + +-------+ + + + | PRO/CREA | 1.8 | mg/mg | | | | RATIO,URINE | | | | | + +-------+ + + + + + | Specimen | + + | Blood specimen | | (specimen) | + + documented in this encounter Visit Diagnoses Not on filedocumented in this encounter"
--- OUTSIDE RECORDS SUMMARY | ~2019-11-09 | XMS | Encounter Summary ---
Demographics + + + | Address | [address] | | | [place] [address] | + + + | Home Phone [...] Team Providers + +------+ + | Care Cloth Doubling Machine Operator Name | Role | Phone | + +------+ + PCP | Unavailable | + +------+ + Encounter Details +--------+ + + + + | Date | Type | Department | Care Team | Description | +--------+ + + + + | 01/12/ | Orders Only | [facility] [place] | Mariana Cortez W, | CKD (chronic kidney | | 2012 | | NEPHROLOGY [address] | disease) stage 2, | | | | [address] | [address] [place] | GFR 60-89 ml/min | | | | [place] | [place] [address] | (Primary Dx) | | | | [address] | [phone] | | | | | [phone] | | | +--------+ + + + [...] [place] | | | | | | [address] | | | | | | | | +--------+ + + + + | 01/17/ | Office | Vascular Surgery | Bill Arevalo DNP | | | 2019 | Visit | | [address] | | | | | | [place] | | | | | | [address] | | | | | | | | +--------+ + + + + | 05/22/ | Office | Nephrology | Mariana Cortez, | | | 2020 | Visit | | [address] | | | | | | [address] | | | | | | [place] [address] | | | | | | [phone] | | | | | | | | +--------+ + + + + + +------+--------+ + + | Name | Type | Priori | Associated Diagnoses | Order Schedule | | | | ty | | | + +------+--------+ + + | Protein/Creatinine | Lab | Routin | CKD (chronic | Expected: 01/12/2013 | | Ratio, Urine | | e | kidney disease) | (Approximate), | | | | | stage 2, GFR 60-89 | Expires: 01/12/2014 | | | | | ml/min | | + +------+--------+ + + documented as of this encounter Visit Diagnoses + + | Diagnosis | + + | CKD (chronic kidney disease) stage 2, GFR 60-89 ml/min - Primary Chronic kidney | | disease, Stage II (mild) | + + documented in this encounter"
--- OUTSIDE RECORDS SUMMARY | ~2019-11-09 | XMS | Encounter Summary ---
Demographics + + + | Address | [address] | | | [place] [address] | + + + | Home Phone [...] | | + + +---------+ + | Rebeac Forte | ECON | Unknown | | + + +---------+ + Care Team Providers + +------+ + | Care Die Lay Out Worker Name | Role | Phone | [...] | | | rhinitis due | [place] [address] | [address] Phone: | | | | | to animal | Phone: | [phone] | | | | | (cat) (dog) | [phone] | Fax: | | | | | hair and | Fax: | [phone] | | | | | dander | [phone] | | | | | | Allergic [...] | | | | [place] | [address] | Allergic rhinitis | | | | [address] | | due to animal (cat) | | | | [phone] | | (dog) hair and | | [...] encounter Progress Notes Modesta Benitez RN - 10/29/2015 1:07 PM PDTPatient presents with epi-pen & inhaler . No active wheezing or cough associated with asthma today. Denies delayed reaction from pre vious allergy injection. No fever or allergy related rash. No recent heavy exposure to aller gens. No plans for strenuous exercise immediately before or after injection today.Electronic ally signed by Modesta Benitez RN at 10/29/2015 2:31 PM PDTdocumented in this encoun ter Plan [...] [place] | | | | | | [id number] | | | | | | | | +--------+ + + + + | 01/17/ | Office | Vascular Surgery | Bill Arevalo DNP | | | 2019 | Visit | | [address] | | | | | | [place] | | | | | | [address] | | | | | | | | +--------+ + + + + | 05/22/ | Office | Nephrology | Dana Mariana Hua, | | | 2020 | Visit | | [address] | | | | | | [address] | | | | | | [place] [address] | | | | | | [phone] | | | | | | | [...]
--- OUTSIDE RECORDS SUMMARY | ~2019-11-09 | XMS | Clinical Summary ---
Demographics + + + | Address | [address] | | | [place] [address] | + + + | Home Phone [...] | | + + +---------+ + | Rbeeca Forte | ECON | Unknown | | + + +---------+ + Care Team Providers + +------+ + | Care Games Manager Name | Role | Phone | + +------+ + | Mehrdad Avalos MD | PCP | | + +------+ + Allergies + + + + + + | Active Allergy | Reactions | Severity | Noted | Comments | | | | | Date | | + + + + + + | Furosemide | Swelling | Medium | 02/02/20 | | | | | | 13 | | + + + + + + Medications + + + +---------+------+------+-------+ | Medication | Sig | Dispensed | Refills | Star | End | Statu | | | | | | t | Date | s | | | | | | Date | | | + + + +---------+------+------+-------+ | TechLite Lancets | | | 0 | 07/3 | | Activ | | MISC | | | | 02/28 | | e | | | | | | 13 | | | + + + +---------+------+------+-------+ | CROW CONTOUR TEST | 4 strips Daily. | | 0 | 07/3 | | Activ | | strip | | | | 1/20 | | e | | | | | | 13 | | | + + + +---------+------+------+-------+ | B-D UF III MINI | | | 0 | 07/3 | | Activ | | PEN NEEDLES 31G X 5 | | | | 1/20 | | e | | MM MISC | | | | 13 | | | + + + +---------+------+------+-------+ | Blood Glucose | by Does not apply | | 0 | | | Activ | | Monitoring Suppl | route. | | | | | e | | (CONTOUR BLOOD | | | | | | | | GLUCOSE SYSTEM) JOANNA | | | | | | | + + + +---------+------+------+-------+ | Alcohol Swabs 70 % | by Does not apply | | 0 | | | Activ | | PADS | route. | | | | | e | + + + +---------+------+------+-------+ | cyanocobalamin | Take 1,000 mcg by | | 0 | | | Activ | | (VITAMIN B-12) 500 | mouth Daily. | | | | | e | | mcg tablet | | | | | | | + + + +---------+------+------+-------+ | folic acid 1 mg | Take 1 mg by mouth | | 0 | | | Activ | | tablet | Daily. | | | | | e | + + + +---------+------+------+-------+ | rosuvastatin | Take 20 mg by mouth | | 0 | | | Activ | | (CRESTOR) 20 mg | nightly. | | | | | e | | tablet | | | | | | | + + + +---------+------+------+-------+ | glyBURIDE | Take 10 mg by mouth | | 0 | 08/1 | | Activ | | (DIABETA) 5 mg | 2 times daily . | | | 10/29 | | e | | tablet | | | | 16 | | | + + + +---------+------+------+-------+ | albuterol 90 | Inhale 2 puffs into | | 0 | 08/1 | | Activ | | mcg/puff inhaler | the lungs every 6 | | | 9/20 | | e | | | hours as needed. | | | 16 | | | + + + +---------+------+------+-------+ | fluticasone | 1 spray by Nasal | | 0 | 08/1 | | Activ | | (FLONASE) 50 | route Twice daily | | | 9/20 | | e | | mcg/nasal spray | as needed. | | | 16 | | | + + + +---------+------+------+-------+ | cetirizine | Take 10 mg by mouth | | 0 | | | Activ | | (ZYRTEC) 10 mg | Daily as needed for | | | | | e | | tablet | Allergies. | | | | | | + + + +---------+------+------+-------+ | cholecalciferol | Take 2,000 Units by | | 0 | | | Activ | | (VITAMIN D-3) 2000 | mouth Daily. | | | | | e | | units TABS | | | | | | | + + + +---------+------+------+-------+ | EPIPEN 2-IGNACIO 0.3 | Inject 0.3 mLs into | 2 each | 1 | 10/0 | | Activ | | MG/0.3ML | the muscle as needed | | | 4/20 | | e | | injectionIndications | for Anaphylaxis | | | 18 | | | | : Extrinsic asthma, | (okay to use | | | | | | | unspecified asthma | generic). | | | | | | | severity, [...] | | + + + +---------+------+------+-------+ | metoprolol | Take 25 mg by mouth | | 0 | | | Activ | | succinate | Daily. | | | | | e | | (TOPROL-XL) 25 mg 24 | | | | | | | | hr tablet | | | | | | | + + + +---------+------+------+-------+ | ferrous sulfate | Take 325 mg by mouth | | 0 | | | Activ | | 325 mg tablet | daily (with | | | | | e | | | breakfast). | | | | | | + + + +---------+------+------+-------+ | ascorbic acid | Take 500 mg by mouth | | 0 | | | Activ | | (VITAMIN C) 500 mg | Daily. | | | | | e | | tablet | | | | | | | + + + +---------+------+------+-------+ | Magnesium 400 MG | Take 400 mg by mouth | | 0 | 04/0 | | Activ | | CAPS | Daily. | | | 2/20 | | e | | | | | | 19 | | | + + + +---------+------+------+-------+ | bumetanide (BUMEX) | Take 2 tablets by | 120 | 11 | 05/2 | | Activ | | 0.5 mg tablet | mouth 2 times daily. | tablet | | 8/20 | | e | | | | | | 19 | | | + + + +---------+------+------+-------+ | ipratropium | as needed . | | 0 | | | Activ | | (ATROVENT) 0.06% | | | | | | e | | nasal spray | | | | | | | + + + +---------+------+------+-------+ | SEMAGLUTIDE, 1 | Inject 1 mg under | | 0 | | | Activ | | MG/DOSE, SC | the skin Once a | | | | | e | | | week. | | | | | | + + + +---------+------+------+-------+ | sodium bicarbonate | Take 1 tablet by | 90 | 3 | 04/0 | | Activ | | 650 mg tablet | mouth Daily. | tablet | | 7/20 | | e | | | | | | 20 | | | + + + +---------+------+------+-------+ | pantoprazole | Take 40 mg by mouth | | 0 | | | Activ | | (PROTONIX) 40 mg | every morning | | | | | e | | tablet | (before breakfast). | | | | | | + + + +---------+------+------+-------+ | aspirin 81 mg | Chew and swallow 1 | 30 | 11 | 08/2 | | Activ | | chewable tablet | tablet Daily. | tablet | | 8/20 | | e | | | | | | 20 | | | + + + +---------+------+------+-------+ | | Take 1 tablet by | 40 | 0 | 08/2 | | Activ | | HYDROcodone-acetamin | mouth every 4 hours | tablet | | 7/20 | | e | | ophen (NORCO) 10-325 | as needed for Pain. | | | 20 | | | | mg per tablet | | | | | | | + + + +---------+------+------+-------+ | docusate sodium | Take 1 capsule by | 60 | 0 | 08/2 | | Activ | | (COLACE) 100 mg | mouth Twice daily | capsule | | / | | e | | capsule | as needed for | | | 20 | | | | | Constipation. | | | | | | + + + +---------+------+------+-------+ Active Problems + + + | Problem | Noted Date | + + + | GAVE (gastric antral vascular ectasia) | 09/16/2019 | + + + + + | Overview: Added automatically from request for surgery | | [id number] | + + + + + | PAD (peripheral artery disease) | 09/16/2019 | + + + + + | Overview: Added automatically from request for surgery | | [id number] | + + + + + | Acute blood loss anemia | 08/17/2019 | + + + | History of anemia due to CKD | 08/17/2019 | + + + | Occult blood in stools | 08/17/2019 | + + + | History of duodenal ulcer | 08/17/2019 | + + + | Upper GI bleeding | 08/17/2019 | + + + + + | Overview: Added automatically from request for surgery | | [id number] | + + + + + | Smoker - Daily | 02/23/2017 | + + + | Obesity (BMI 35.0-39.9 without comorbidity) | 02/23/2017 | + + + | Type 2 diabetes mellitus with stage 3 chronic kidney disease, | 10/13/2012 | | without long-term current use of insulin | | + + + | Hypertension | 10/13/2012 | + + + | Proteinuria | 10/13/2012 | + + + | CKD (chronic kidney disease) stage 3, GFR 30-59 ml/min | 10/13/2012 | + + + + + | Overview: Renal ultrasound 09/16/12: right kidney 13 cm, left | | kidney 12.4 cm. Proteinuric. | + + + +---+ | Migraine headache | | + +---+ | Renal tubular acidosis, type 4 | | + +---+ | Duodenal ulcer | | + +---+ | Allergic asthma | | + +---+ | Organic insomnia | | + +---+ | MARYURI (obstructive sleep apnea) | | + +---+ | RLS (restless legs syndrome) | | + +---+ Resolved Problems + + + + | Problem | Noted | Resolved | | | Date | Date | + + + + | Deviated nasal septum | 11/13/19 | | | | 17 | 9 | + + + + | Hypertrophy of nasal turbinates | 11/13/19 | | | | 17 | 9 | + + + + | Snores | | | | | | 9 | + + + + Encounters +--------+ + + + + | Date | Type | Specialty | Care Team | Description | +--------+ + + + + | 10/26/ | Office | Infectious Diseases | Rosa Mclean | Osteomyelitis of | | 2020 | Visit | | Adrianna Vincent MD | right foot, | | | | | | unspecified type | | | | | | (HCC) (Primary Dx); | | | | | | Type 2 diabetes | | | | | | mellitus with stage | | | | | | 3 chronic kidney | | | | | | disease, without | | | | | | long-term current | | | | | | use of insulin (HCC) | +--------+ + + + + | 10/26/ | Clinical | Vascular Surgery | Eve Avilez, | PAD (peripheral | | 2019 | Support | | RN | artery disease) | | | | | | (HCC) (Primary Dx) | +--------+ + + + + | 10/19/ | Hospital | Radiology | | PAD (peripheral | | 2019 | Encounter | | | artery disease) | | | | | | (HCC) | +--------+ + + + + | 10/19/ | Office | Vascular Surgery | Bill Arevalo DNP | PAD (peripheral | | 2019 | Visit | | | artery disease) | | | | | | (HCC) (Primary Dx) | +--------+ + + + + | 10/09/ | Telephone | Gastroenterology | Iva Hardwick, | Procedure (cancel | | 2019 | | | | MIRYAM for 10/18/19) | +--------+ + + + + | 10/09/ | Telephone | Vascular Surgery | Avel Upton MD | Letter for | | 2019 | | | | School/Work | +--------+ + + + + | 10/06/ | Telephone | Vascular Surgery | Eve Avilez, | Follow-up | 2019 | | | RN | | +--------+ + + + + | 10/05/ | Telephone | Vascular Surgery | Eve Avilez, | Follow-up | | 2019 | | | RN | | +--------+ + + + + | 10/03/ | Anesthesia | | Mehrdad Phillips | | | 2019 | Event | | MIKE Fong | | | | | | Jeovany Cheek MD | | +--------+ + + + + | 10/03/ | Surgery | | Avel Upton MD | BYPASS GRAFT | | 2019 | | | | Popliteal to tibial | | | | | | bypass | +--------+ + + + + | 10/03/ | Hospital | Internal Medicine | Avel Upton MD | GAVE (gastric antral | | 2019 - | Encounter | | | vascular ectasia); | | | | | | PAD (peripheral | | 10/05/ | | | | artery disease) | | 2019 | | | | (HCC) | +--------+ + + + + | 09/28/ | Telephone | Gastroenterology | Iva Hardwick, | Other (reason for | | 2019 | | | MD | MAC) | +--------+ + + + + | 09/27/ | Hospital | | Bill Arevalo DNP | PAD (peripheral | | 2019 | Encounter | | Avel Upton MD | artery disease) | | | | | | (HCC) | +--------+ + + + + | 09/27/ | Hospital | Cardiology | Iva Hardwick, | Pre-op testing | 2019 | Encounter | | MD | | +--------+ + + + + | 09/27/ | Preadmit | Pre-Admission | Iva Hardwick, | Pre-op testing | 2019 | Visit | Testing | | (Primary Dx) | +--------+ + + + + | 09/27/ | Orders Only | Vascular Surgery | Jamie Cunningham, | PAD (peripheral | | 2019 | | | PA-C | artery disease) | | | | | | (HCC) (Primary Dx) | +--------+ + + + + | 09/27/ | Orders Only | Vascular Surgery | Jamie Cunningham, | PAD (peripheral | | 2019 | | | PA-C | artery disease) | | | | | | (HCC) (Primary Dx) | +--------+ + + + + | 09/26/ | Telephone | Cardiology | Avel Upton MD | Pre-Op | | 2019 | | | | | +--------+ + + + + | 09/21/ | Office | Vascular Surgery | Avel Upton MD | PAD (peripheral | | 2019 | Visit | | | artery disease) | | | | | | ([facility]) (Primary Dx); | | | | | | Critical lower limb | | | | | | ischemia | +--------+ + + + + | 09/20/ | Telephone | Infectious Diseases | Elisha Dunbar | Care Coordination | | 2019 | | | ZULAY Garibay | | +--------+ + + + + | 09/15/ | Orders Only | Infectious Diseases | Louie Henry, | Osteomyelitis of | 2019 | | | Carmine Kebede MD | fifth toe of right | | | | | | foot (HCC) (Primary | | | | | | Dx) | +--------+ + + + + | 09/14/ | Telephone | Gastroenterology | Stepan Napoles MD | Procedure (Sign | 2019 | | | | case) | +--------+ + + + + | 09/13/ | Hospital | Radiology | Louie Henry, | Osteomyelitis of | | 2019 | Encounter | | Carmine Kebede MD | fifth toe of right | | | | | | foot ([facility]); Weak | | | | | | pulse | +--------+ + + + + | 09/12/ | Office | Infectious Diseases | Louie Henry, | Osteomyelitis of | | 2019 | Visit | | Carmine Kebede MD | fifth toe of right | | | | | | foot ([facility]) (Primary | | | | | | Dx); Acute | | | | | | osteomyelitis of | | | | | | metatarsal bone, | | | | | | right ([facility]); | | | | | | Polymicrobial | | | | | | bacterial infection; | | | | | | MSSA infection, | | | | | | non-invasive; Type 2 | | | | | | diabetes, | | | | | | controlled, with | | | | | | neuropathy ([facility]); | | | | | | CKD (chronic kidney | | | | | | disease) stage 3, | | | | | | GFR 30-59 ml/min | | | | | | ([facility]); Weak pulse; | | | | | | Serratia infection; | | | | | | 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) | | | | | | use of antibiotics | +--------+ + + + + | 09/07/ | Documentati | Infectious Diseases | Louie Henry, | Results (09/06/2019 | | 2019 | on | | Carmine Kebede MD | [facility] | | | | | [facility]- | | | | | | CBC, ESR, CRP, CMP) | +--------+ + + + + | 08/31/ | Telephone | Infectious Diseases | Elisha Dunbar | Care Coordination | 2019 | | | L RN | (request us order | | | | | | and chart notes) | +--------+ + + + + | 08/31/ | Documentati | Infectious Diseases | Louie Henry, | Results (08/29/2019 | | 2019 | on | | Carmine Kebede MD | [facility] | | | | | | Labs- CBC, CMP, ESR, | | | | | | CRP) | +--------+ + + + + | 08/30/ | Office | Infectious Diseases | Echaiz Henry, | Osteomyelitis of | | 2019 | Visit | | Carmine Kebede MD | fifth toe of right | | | | | | foot ([facility]) (Primary | | | | | | Dx); Acute | | | | | | osteomyelitis of | | | | | | metatarsal bone, | | | | | | right ([facility]); | | | | | | Polymicrobial | | | | | | bacterial infection; | | | | | | MSSA infection, | | | | | | non-invasive; Type 2 | | | | | | diabetes, | | | | | | controlled, with | | | | | | neuropathy ([facility]); | | | | | | CKD (chronic kidney | | | | | | disease) stage 3, | | | | | | GFR 30-59 ml/min | | | | | | ([facility]); Weak pulse | +--------+ + + + + | 08/18/ | Telephone | Infectious Diseases | Louie Henry, | Coordination Of Care | | 2019 | | | Carmine Kebede MD | (Ertapenem dosage. 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 | | +--------+ + + + + | 08/17/ | Anesthesia | | Gagandeep Garcia, | | | 2020 | Event | | Olu Chapa | | | | | | MIKE Shankar | | +--------+ + + + + | 08/17/ | Surgery | | Stepan Napoles MD | EGD | | 2019 | | | | | +--------+ + + + + | 08/17/ | Telephone | Infectious Diseases | Shirley Alfonso, | Care Coordination | | 2019 | | | Bottle Selector | (IV ABX Dosage/ Labs | | | | | | ) | +--------+ + + + + | 08/16/ | Hospital | General Surgery | Elpidio Wiley | Upper GI bleeding | | 2019 - | Encounter | | MD Jaguar Donis, | (Primary Dx); Anemia | | | | | Mohinder Rosenberg MD | associated with | | 08/18/ | | | Vahid, Norah, DO | acute blood loss; | | 2019 | | | | Acute on chronic | | | | | | renal insufficiency; | | | | | | Uncontrolled type 2 | | | | | | diabetes mellitus | | | | | | with hyperglycemia | | | | | | ([facility]); Upper GI | | | | | | bleeding; | | | | | | Osteomyelitis of | | | | | | ankle or foot, | | | | | | right, acute ([facility]); | | | | | | History of duodenal | | | | | | ulcer | +--------+ + + + + | 08/16/ | Documentati | Infectious Diseases | Louie Henry, | Results ([facility], | | 2019 | on | | Carmine Kebede MD | CRP, ESR) | +--------+ + + + + | 08/16/ | Telephone | Infectious Diseases | Louie Henry, | Results | | 2019 | | | Carmine Kebede MD | | +--------+ + + + + | 08/15/ | Telephone | Infectious Diseases | Shirley Alfonso, | Other (PROACTIVE | 2019 | | | Bottle Selector | SCREENING DONE ) | +--------+ + + + + | 08/09/ | Documentati | Infectious Diseases | Louie Henry, | Results (CMP, CBC, | 2019 | on | | Carmine Kebede MD | ESR, CRP) | +--------+ + + + + from Last 3 Months Immunizations + + + + | Name | Administration Dates | Next Due | + + + [...] + + +------+ + | Diabetes | Sister | | | + + +------+ + | Hypertension | Sister | | | + + +------+ + | Diabetes | Sister | | | + + +------+ + | Hypertension | Sister | | | + + +------+ + | Diabetes | Sister | | | + + +------+ + | Hypertension | Sister | | | + + +------+ + | Hypertension | Sister | | | + + +------+ + | Malig hypertherm | Neg Hx | | | + + +------+ + + +------+ + + | Relation | Name | Status | Comments | + +------+ + + | Father | | | kidney failure and diabetes | | | | (Age | | | | | 79) | | + +------+ + + | Mother | | | | | | | (Age | | | | | 52) | | + +------+ + + | Other | | | | + +------+ + + | Sister | | Alive | | + +------+ + + | Sister | | Alive | | + +------+ + + | Sister | | Alive | | + +------+ + + | Sister | | Alive | snores | + +------+ + + Social History [...] | | + + + + + Plan of Treatment +--------+ + + + + | Date | Type | Specialty | Care Team | Description | +--------+ + + + + | 01/17/ | Appointment | Radiology | Bill Arevalo DNP | | | 2019 | | | [address] | | | | | | [place] | | | | | | [address] | | | | | | | | +--------+ + + + + | 01/17/ | Office | Vascular Surgery | Bill Arevalo DNP | | | 2019 | Visit | | [address] | | | | | | [place] | | | | | | [address] | | | | | | | | +--------+ + + + + | 05/22/ | Office | Nephrology | Mariana Cortez, | | | 2020 | Visit | | [address] | | | | | | [address] | | | | | | [place] [address] | | | | | | [phone] | | | | | | | | +--------+ + + + + + + + + + | Health Maintenance | Due Date | Last | Comments | | | | Done | | + + + + + | Hepatitis C | | | | | Screening | 1 | | | + + + + + | Vaccine: | | | | | Pneumococcal 19-64 | 7 | | | | (1 of 1 - PPSV23) | | | | + + + + + | Diabetic Eye Exam | | | | | | 9 | | | + + + + + | Diabetic Foot Exam | | | | | | 9 | | | + + + + + | Cervical Cancer | | | | | Screening (Pap) | 1 | | | + + + + + | Breast Cancer | | | | | Screening | 6 | | | + + + + + | Vaccine: Influenza | | | | | (#1) | 0 | | | + + + + + | Hemoglobin A1c | | 08/17/19 | | | Screening | 0 | 20, | | | | | 11/23/19 | | | | | 19, | | | | | 01/25/20 | | | | | 17, | | | | | Addition | | | | | al | | | | | history | | | | | exists | | + + + + + | Med Mgmt: HBA1C | | 08/17/19 | | | | 1 | 20, | | | | | 11/23/19 | | | | | 19, | | | | | 01/25/20 | | | | | 17, | | | | | Addition | | | | | al | | | | | history | | | | | exists | | + + + + + | Medication | | 10/06/19 | | | Management | 1 | 20 | | + + + + + | Med Mgmt: Vit D | | 08/17/19 | | | | 1 | 20, | | | | | 05/09/19 | | | | | 20, | | | | | 05/08/19 | | | | | 18, | | | | | Addition | | | | | al | | | | | history | | | | | exists | | + + + + + | Med Mgmt: Cr | | 10/06/19 | | | | 1 | 20, | | | | | 10/05/19 | | | | | 20, | | | | | 10/04/19 | | | | | 20, | | | | | Addition | | | | | al | | | | | history | | | | | exists | | + + + + + | Med Mgmt: K | | 10/06/19 | | | | 1 | 20, | | | | | 10/05/19 | | | | | 20, | | | | | 10/04/19 | | | | | 20, | | | | | Addition | | | | | al | | | | | history | | | | | exists | | + + + + + | Med Mgmt: Na | | 10/06/19 | | | | 1 | 20, | | | | | 10/05/19 | | | | | 20, | | | | | 10/04/19 | | | | | 20, | | | | | Addition | | | | | al | | | | | history | | | | | exists | | + + + + + | Vaccine: | | 09/09/19 | | | Dtap/Tdap/Td (2 - | 3 | 13 | | | Td) | | | | + + + + + Procedures + +--------+ + + + | [...] | | | | | PDT | ([facility]) | | + +--------+ + + + [...] the | | | | PDT | ([facility]) | results section. | + +--------+ + [...] | | | | PDT | foot (HCC) Weak | results section. | | | [...] | LABS - EXTERNAL SCAN | | 09/06/2019 | | Results for this [...] | LABS - EXTERNAL SCAN | | 08/29/2019 | | Results for this | | | | 12:00 AM | | procedure are in the | | | | PDT | | results section. | + +--------+ + + + | LABS - EXTERNAL SCAN | | 08/23/2019 | | Results for this | | | | 12:00 AM | | procedure are in the | | | | PDT | | results section. | + +--------+ + + + | COMPREHENSIVE | Routin | 08/23/2019 | | Results for this | | METABOLIC PANEL | e | | | procedure are in the | | | | | | results section. | + +--------+ + + + | CBC WITH | Routin | 08/23/2019 | | Results for this | | DIFFERENTIAL | e | | | procedure are in the | | | | | | results section. | + +--------+ + + + | C-REACTIVE PROTEIN | Routin | 08/23/2019 | | Results for this | | [...] + +--------+ + + + | *TERMED* AL UPPER GI | Routin | 08/18/2019 | [...] | | n - | | | 08/16/ | | | 2019 | | | [...] B?MRN: | | | | | | [id number] | | | [id number] | | | riteri | | | [...] | | | [facility] | | | [place] | | | y | | | [...] | | | St. | | | [place] | | | y | | | [...] | | | St. | | | [place] | | | y H. | | [...] | | | St. | | | [place] | | | y H. | | [...] | | | [id number] | | | [id number] | | | 78 | | | [...] [email or web address] | | | m | +---+--------+ + +--------+ +---+ + | CBC WITH | Routin | 08/16/2019 | | Results for this | | DIFFERENTIAL | e | 4:00 PM | | procedure are in the | | | | PDT | | results section. | + +--------+ +---+ + | COMPREHENSIVE | Routin | 08/16/2019 | | Results for this | | METABOLIC PANEL | e | 4:00 PM | | procedure are in the | | | | PDT | | results section. | + +--------+ +---+ + | SEDIMENTATION RATE | Routin | 08/16/2019 | | Results for this | | | e | 4:00 PM | | procedure are in the | | | | PDT | | results section. | + +--------+ +---+ + | C-REACTIVE PROTEIN | Routin | 08/16/2019 | | Results for this | | | e | 4:00 PM | | procedure are in the | | | | PDT | | results section. | + +--------+ +---+ + | LABS - EXTERNAL SCAN | | 08/16/2019 | | Results for this | | | | 12:00 AM | | procedure are in the | | | | PDT | | results section. | + +--------+ +---+ + | C-REACTIVE PROTEIN | Routin | 08/09/2019 | | Results for this | | | e | 5:50 PM | | procedure are in the | | | | PDT | | results section. | + +--------+ +---+ + | SEDIMENTATION RATE | Routin | 08/09/2019 | | | | | e | 5:50 PM | | | | | | PDT | | | + +--------+ +---+ + | COMPREHENSIVE | Routin | 08/09/2019 | | Results for this | | METABOLIC PANEL | e | 5:50 PM | | procedure are in the | | | | PDT | | results section. | + +--------+ +---+ + | CBC WITH | Routin | 08/09/2019 | | Results for this | | DIFFERENTIAL | e | 5:50 PM | | procedure are in the | | | | PDT | | results section. | + +--------+ +---+ + | LABS - EXTERNAL SCAN | | 08/09/2019 | | Results for this | | | | 12:00 AM | | procedure are in the | | | | PDT | | results section. | + +--------+ +---+ + from Last 3 Months Results VAS Lower Extremity Arteries Right (10/20/2019 10:26 AM PDT)Only the most recent of 2 resul ts within the time period is included. 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 + + + | Narrative | Performed At | + + + | Ordered by an | | | unspecified provider. | | + + + POC Glucose (10/06/2019 9:08 AM PDT)Only the most recent of 16 results within the time per iod is included. + + + + + + | Component | Value | Ref Range | Performed | Pathologist | | | | | At | Signature | + + + + + + | Glucose, | 157 (H)Comment: Testing | 65 - 99 mg/dL | [place] | | | POC | performed at [facility];[address] | | | | [address];[place], [place] | | | | | | [address] | | | | + + + + + + + + | Specimen | + + | | + + + + + + + | Performing | Address | City/State/Zipcode | Phone Number | | Organization | | | | + + + + + | [facility] | [address] | [place] [address] | [phone] | + + + + + CBC no Differential (10/06/2019 6:24 AM PDT)Only the most recent of 3 results within the period is included. + + + + + + | [...] LABORATORY | | | | performed at [facility], [address], | | | | | | [place] [address] | | | | + + + + + + + + | Specimen | + + | Blood | + + + + + + + | Performing | Address | City/State/Zipcode | Phone Number | | Organization | | | | + + + + + | [facility] | [address] | [place] [address] | [phone] | + + + + + Basic Metabolic Panel (10/06/2019 6:24 AM PDT)Only the most recent of 4 results within the time period is included. + + + + + + | [...] 25 (L)Comment: GFR <60: | >60 | [facility] | | | GFR | CHRONIC [...] | | | | | performed at [facility], [address] | | | | [address] [facility], | | | | | | [place] [address] | | | | + + + + + + + + | Specimen | + + | Blood | + + + + + + + | Performing | Address | City/State/Zipcode | Phone Number | | Organization | | | | + + + + + | [facility] | [address] | [place] [address] | [phone] | + + + + + Mandy (10/04/2019 1:26 PM PDT) + + [...] 12:40 PM Indication: necessitating | | | physician/COAGULATOR skill Preparation: alcohol patient was: under GA [...] medication documentation. | | + + + CBC with Differential (10/04/2019 10:40 AM PDT)Only the most recent of 9 results within the time period is included. + + + + + + | [...] | | | Absolute | performed at [facility];[address] | [address] | LABORATORY | | | | [facility];[place], [place] | | | | | | [address] | | | | + + + + + + + + | Specimen | + + | Blood | + + + + + + + | Performing | Address | City/State/Zipcode | Phone Number | | Organization | | | | + + + + + | [facility] | [address] | [place] [address] | [phone] | + + + + + Type and Screen (10/04/2019 10:40 AM PDT)Only the most recent of 2 results within the time period is included. + + + + + + | [...] + + + | BB BAND | [id number] | | [facility] | | | | | | LABORATORY | | + + + + + + | BB BAND | Testing performed at | | [facility] | | | | [facility];[address] | LAB[address]AT[address] | | | | [address];[place] [address] | | | | + + + + + + + + | Specimen | + + | Blood | + + + + + + + | Performing | Address | City/State/Zipcode | Phone Number | | Organization | | | | + + + + + | [facility] | [address] | [place] [address] | [phone] | + + + + + POCT Test, Urine, Qual (10/04/2019 10:30 AM PDT) + + + + + + | Component | Value | Ref Range | Performed | Pathologist | | | | | At | Signature | + + + + + + | POC HCG | NEGATIVEComment: Testing | NEG | [facility] | | | Qualitative | performed at [facility];[address] | | LABORATORY | | | | [address];[place] | | | | | | [address] | | | | + + + + + + + + | Specimen | + + | | + + + + + + + | Performing | Address | City/State/Zipcode | Phone Number | | Organization | | | | + + + + + | [facility] | [address] | [place] [address] | [phone] | + + + + + IR Angiogram Lower Extremity Right (09/28/2019 12:14 [...] SURGEON: Avel | | | MD Won STOCK SUPERVISOR: None ANESTHESIA: Moderate sedation and local | [...] was properly identified and brought to the [employer]. The | | | patient was placed [...] | and up sized to a 4 British sheath. A Omni flush catheter was then [...] catheter and | | | the 4 British sheath was removed. A 6 British destination sheath was | | | then [...] the catheter and the 4 | | |British sheath was removed. A 6 British destination sheath was then inserted | | [...] + + | Performing | Address | City/State/[facility] | Phone Number | | Organization | | | | + +---------+ + + | [facility] | | | | + +---------+ + + ECG 12 lead (09/28/2019 10:02 AM PDT) [...] MD | | | | | | ([id number]) on 10/01/2019 | | | | | [...] + + Sedimentation Rate (09/06/2019 2:03 PM PDT)Only the most recent of 4 results within the [facility] period is included. + +--------+ + + + | Component [...] | + +---------+ + + C-Reactive Protein (09/06/2019 2:03 PM PDT)Only the most recent of 5 results within the ti md period is included. + +---------+ + + + | Component [...] + Comprehensive Metabolic Panel (09/06/2019 2:03 PM PDT)Only the most recent of 8 results wi thin the time period is included. + + + + + + | [...] | | | + +---------+ + + Lipid Panel (08/19/2019 5:17 AM PDT)Only the most recent of 2 results within the time gayla od is included. + + + + + + | [...] | | | Calculated | performed at [facility], [address] | LABORATORY | | | | [address], | | | | | | [place] [address] | | | | + + + + + + + + | Specimen | + + | | + + + + + + + | Performing | Address | City/State/Zipcode | Phone Number | | Organization | | | | + + + + + | [facility] | [address] | [place] [address] | [phone] | + + + + + Magnesium (08/19/2019 5:17 AM PDT)Only the most recent of 2 results within the time period is included. + + + + + + | Component | Value | Ref Range | Performed | Pathologist | | | | | At | Signature | + + + + + + | Magnesium | 1.7Comment: Testing | 1.7 - 2.4 mg/dL | [facility] | | | | performed at [facility];[address] | | LABORATORY | | | | [address];[place] | | | | | | [address] | | | | + + + + + + + + | Specimen | + + | Blood | + + + + + + + | Performing | Address | City/State/Zipcode | Phone Number | | Organization | | | | + + + + + | [facility] | [address] | [place] [address] | [phone] | + + + + + Hemoglobin and Hematocrit (08/18/2019 3:56 PM PDT)Only the most recent of 2 results within the time period is included. + + + + + + | [...] [facility] | | | | performed at [facility];[address] | | LABORATORY | | | | [facility];[place], [place] | | | | | | [address] | | | | + + + + + + + + | Specimen | + + | Blood | + + + + + + + | Performing | Address | City/State/Zipcode | Phone Number | | Organization | | | | + + + + + | [facility] | [address] | [place] [address] | [phone] | + + + + + EGD (08/18/2019 11:32 AM PDT) + + | Specimen | + + | | + + + + + | Narrative | Performed At | + + + | [facility] | [facility] | | [facility] | [facility] | | [facility]ology | | | Patient Name: July Forte | | | [place] Procedure Date: 08/18/2019 11:32 AMMRN: [id number] | | | of : 1970 | [...] the anesthesiologist and the | | | remanufacturing technician in the pre-procedure area in the [...] | 08/18/2019 11:32 AMNumber of Addenda: 0 [facility] | | | Center | | | [...] 0 | | | | | | [facility] | | + + + + +---------+ + + | Performing | Address | City/State/Zipcode | Phone Number | | Organization | | | | + +---------+ + + | [facility] | | | | + +---------+ + + Red Blood Cells (PRBC) - Transfuse (08/18/2019 8:47 AM PDT)Red Blood Cells (PRBC) - Crossm atch and Hold (08/18/2019 7:54 AM PDT)Only the most recent of 3 results within the time per iod is included. + + + + + + | [...] | [facility] | | | COMMENT | [facility];[address] | LABORATORY | | | | [address];[place] [address] | | | | + + + + + + + + | Specimen | + + | | + + + + + + + | Performing | Address | City/State/Zipcode | Phone Number | | Organization | | | | + + + + + | [facility] | [address] | [place] [address] | [phone] | + + + + + Red Blood Cells (PRBC) - Transfuse (08/18/2019 3:58 AM PDT)Only the most recent of 2 resul ts within the time period is included.Coronavirus (COVID-19) NAAT (08/17/2019 6:23 PM PDT) + + + + + + | Component | Value | Ref Range | Performed | Pathologist | | | | | At | Signature | + + + + + + | SARS-CoV-2, | NEGATIVEComment: This | NEG | [facility] | | | NAAT | test was [...] | | | | | performed at [facility] | | | | | | [facility];[place], [place] | | | | | | [address] | | | | + + + + + + + + | Specimen | + + | Tissue - Entire | | nasopharynx (body | | structure) | + + + + + + + | Performing | Address | City/State/Zipcode | Phone Number | | Organization | | | | + + + + + | [facility] | [address] | [place] [address] | [phone] | + + + + + Iron [...] | LABORATORY | | | | [address], | | | | | | [place] [address] | | | | + + + + + + + + | Specimen | + + | Blood | + + + + + + + | Performing | Address | City/State/Zipcode | Phone Number | | Organization | | | | + + + + + | [facility] | [address] | [place] [address] | [phone] | + + + + + Vitamin B-12 (08/17/2019 5:01 PM PDT) + + + + + + | Component | Value | Ref Range | Performed | Pathologist | | | | | At | Signature | + + + + + + | VITAMIN | 578Comment: Testing | 232 - 1,245 | [facility] | | | B-12 | performed at [facility], | pg/mL | LABORATORY | | | | [address], [place] [address], | | | | | | [facility] [address] | | | | + + + + + + + + | Specimen | + + | Blood | + + + + + + + | Performing | Address | City/State/Zipcode | Phone Number | | Organization | | | | + + + + + | [facility] | [address] | [place] [address] | [phone] | + + + + + Vitamin D, Deficiency Screen (25-Hydroxy) (08/17/2019 5:01 PM PDT) + + + + + + | Component | Value | Ref Range | Performed | Pathologist | | | | | At | Signature | + + + + + + | Vit D, | 35.0Comment: Vitamin D | 30.0 - 100.0 | [facility] | | | 25-Hydroxy | deficiency has been | ng/mL | LABORATORY | | | | defined by the [facility] | | | | | | [facility] and an | | | | | [...] IOM | | | | | | ([facility]). | | | | | [...] | | | | | performed at [facility], | | | | | | [address], [address], | | | | | | [facility] [address] | | | | + + + + + + + + | Specimen | + + | Blood | + + + + + + + | Performing | Address | City/State/Zipcode | Phone Number | | Organization | | | | + + + + + | [facility] | [address] | [place] [address] | [phone] | + + + + + PTT (08/17/2019 5:01 PM PDT) + + + + + + | Component | Value | Ref Range | Performed | Pathologist | | | | | At | Signature | + + + + + + | PTT | 22 (L)Comment: Testing | 23 - 32 seconds | [facility] | | | | performed at [facility];[address] | | LABORATORY | | | | [address];[place] | | | | | | [address] | | | | + + + + + + + + | Specimen | + + | Blood | + + + + + + + | Performing | Address | City/State/Zipcode | Phone Number | | Organization | | | | + + + + + | [facility] | [address] | [place] [address] | [phone] | + + + + + Protime [...] | | | | | performed at [facility] | | | | | | [facility];[place], [place] | | | | | | [address] | | | | + + + + + + + + | Specimen | + + | Blood | + + + + + + + | Performing | Address | City/State/Zipcode | Phone Number | | Organization | | | | + + + + + | [facility] | [address] | [place] [address] | [phone] | + + + + + Retic [...] | | | Reticulocyt | performed at [facility];[address] | | LABORATORY | | | [address] | [address];[place], [place] | | | | | | [address] | | | | + + + + + + + + | Specimen | + + | Blood | + + + + + + + | Performing | Address | City/State/Zipcode | Phone Number | | Organization | | | | + + + + + | [facility] | [address] | [place] [address] | [phone] | + + + + + Hemoglobin A1C (08/17/2019 5:01 PM PDT) + + + + + + | Component | Value | Ref Range | Performed | Pathologist | | | | | At | Signature | + + + + + + | Hemoglobin | 7.1 (H)Comment: | 4.8 - 5.6 % | [facility] | | | A1c | Prediabetes: 5.7 [...] [address], | | | | | | [facility] [address], [facility] | | | | | | [address] | | | | + + + + + + + + | Specimen | + + | Blood | + + + + + + + | Performing | Address | City/State/Zipcode | Phone Number | | Organization | | | | + + + + + | [facility] | [address] | [place] [address] | [phone] | + + + + + Folate (08/17/2019 5:01 PM PDT) + + + + + + | Component | Value | Ref Range | Performed | Pathologist | | | | | At | Signature | + + + + + + | FOLATE | 17.2Comment: A serum | >3.0 ng/mL | [facility] | | | | folate concentration of | | LABORATORY | | | | less than 3.1 ng/mL | | | | | | isconsidered to | | | | | | represent clinical | | | | | | deficiency.Testing | | | | | | performed at [facility], | | | | | | [address], [address], | | | | | | [facility] [address] | | | | + + + + + + + + | Specimen | + + | Blood | + + + + + + + | Performing | Address | City/State/Zipcode | Phone Number | | Organization | | | | + + + + + | [facility] | [address] | [place] [address] | [phone] | + + + + + Ferritin (08/17/2019 5:01 PM PDT) + + + + + + | Component | Value | Ref Range | Performed | Pathologist | | | | | At | Signature | + + + + + + | Ferritin | 40Comment: Testing | 15 - 150 ng/mL | [facility] | | | | performed at [facility], | | LABORATORY | | | | [address] [facility] [address], | | | | | | [facility] [address] | | | | + + + + + + + + | Specimen | + + | Blood | + + + + + + + | Performing | Address | City/State/Zipcode | Phone Number | | Organization | | | | + + + + + | [facility] | [address] | [place] [address] | [phone] | + + + + + from Last 3 Months Insurance + +--------+ +--------+ +---------+--------+ | Payer | Benefi | Subscriber | Effect | Phone | Address | Type | | | t Plan | ID | nyla | | | | | | / | | Dates | | | | | | Group | | | | | | + +--------+ +--------+ +---------+--------+ | [employer] | [employer] | [id number] | 02/14/19 | [phone] | | Medica | | MEDICAID HMO | HEALTH | | 20-Pre | 1 | | id | | | MDCD | | sent | | | | | | [place]MO [place] | | | | | | + +--------+ +--------+ +---------+--------+ | HEALTH | IHS | [id number] | | | | Indemn | | SERVICE | YELLOW | | 013-Pr | | | ity | | | HAWK | | esent | | | | + +--------+ +--------+ +---------+--------+ | [employer] | [employer] | [id number] | | [phone] | | Medica | | MEDICAID HMO | HEALTH | | 020-Pr | 1 | | id | | | MDCD | | esent | | | | | | [place]MO [place] | | | | | | + +--------+ +--------+ +---------+--------+ + +--------+ +--------+ + + | Guarantor Name | Accoun | Relation to | Date | Phone | Billing Address | | | t Type | Patient | of | | | | | | | | | | + +--------+ +--------+ + + | July Forte | Person | Self [birth year] | [address] | | [place] | al/Fam | | 1971 | [phone] | [place] [address] | | | fabian | | | 0 (Home) | | | | | | | [phone] | | | | | | | 6 (Work) | | + +--------+ +--------+ + + | July Forte | Person | Self [birth year] | [address] | | [place] | al/Fam | | 1971 | [phone] | [place] [address] | | | fabian | | | 0 (Home) | | + +--------+ +--------+ + + Advance Directives + + + + + | Type | Date Recorded | Patient | Explanation | | | | Finance Consultant | | + + + + + | Power of | | | | | Departmental Secretary | | | | + + + + + | Advance | 09/23/2019 10:32 | | | | Directive | AM | | | + + + + + + + + + + | Code Status | Date | Date | Comments | | | Activated | Inactivated | | + + + + + | Full Code | 10/04/2019 | 10/06/2019 | | | | 7:20 PM | 2:17 PM | | + + + + + + + + +---+ | | | | | + + + +---+ | Full Code | 08/17/2019 | 08/19/2019 | | | | 8:05 PM | 3:57 PM | | + + + +---+ + + + +---+ | | | | | + + + +---+ | Full Code | 02/24/2017 | 02/24/2017 | | | | 11:27 AM | 3:40 PM | | + + + +---+
--- OUTSIDE RECORDS SUMMARY | ~2019-11-09 | XMS | Encounter Summary ---
Demographics + + + | Address | [address] | | | [place] [address] | + + + | Home Phone [...] + + + | Author | [facility] | | | and [place] | + + + | Organization | [facility] | | [...] Team Providers + +------+ + | Care Pictures Editor Name | Role | Phone | + +------+ + PCP | Unavailable | + +------+ + Encounter Details +--------+ + + + + | Date | Type | Department | Care Team | Description | +--------+ + + + + | 07/31/ | Documentati | [facility] [place] | Mariana Cortez W, | | | 2014 | on | NEPHROLOGY [address] | MD [address] | | | | | [address] | [address] [place] | | | | | [place], [place] | [place] [address] | | | | | [address] | [phone] | | | | | [phone] | | | +--------+ + + + [...] documented as of this encounter Progress Notes Celine Ford - 07/31/2014 10:26 AM PDTManually faxed progress note from 07/25/14 to [facility], attn: referral department in order to get a referral for 01/09/15 follow up appointment started. A M PDTdocumented in this encounter Plan [...] [place] | | | | | | [id number] | | | | | | | | +--------+ + + + + | 01/17/ | Office | Vascular Surgery | Bill Arevalo DNP | | | 2019 | Visit | | [address] | | | | | | [place] | | | | | | [address] | | | | | | | | +--------+ + + + + | 05/22/ | Office | Nephrology | Mariana Cortez W, | | | 2020 | Visit | | [address] | | | | | | [address] [place] | | | | | | [place] [address] | | | | | | [phone] | | | | | | | | +--------+ + + + + documented as of this encounter Visit Diagnoses Not on filedocumented in this encounter"
--- OUTSIDE RECORDS SUMMARY | ~2019-11-09 | XMS | Encounter Summary ---
Demographics + + + | Address | [address] | | | [place] [address] | + + + | Home Phone [...] Providers + +------+ + | Care Field Manager Name | Role | Phone | [...] Closed | | Nephrology | Diagnoses | Boradhaet, | Cortez, | | | | | Chronic | Ronel H, | Mariana W, | | | | | kidney | PA-C 0 | MD [address] | | | | | disease, | [address] | [address] | | | | | stage 4 | [place] | [address] | | | | | (severe) | [address] | [place], | | | | | (HCC) | [place], | [place] [address] | | | | | Procedures | [place] | Phone: | | | | | NE OFFICE | [address] | [phone] | | | | | OUTPATIENT | Phone: | Fax: | | | | | VISIT 25 | [phone] | [phone] | | | | | MINUTES DOS | Fax: | | | | | | 05/17/19 | [phone] | | | | | | Follow Up | | | +--------+--------+ + + + + Encounter Details +--------+ + + + + | Date | Type | Department | Care Team | Description | +--------+ + + + + | 05/16/ | Virtual | [facility] | Mariana Cortez W, | CKD (chronic kidney | | 2020 | Office | NEPHROLOGY [address] | [address] [facility] | disease) stage 3, | | | Visit | [facility] [address] | [address] [place] | GFR 30-59 ml/min | | | | [place] | [place] [address] | ([facility]) (Primary Dx); | | | | [address] | [phone] | Essential | | | | [phone] | | hypertension; Type 2 | | | | | | diabetes mellitus | | | | | | with stage 3 chronic | | | | | | kidney disease, | | | | | | without long-term | | | | | | current use of | | | | | | insulin ([facility]); Renal | | | | | | tubular acidosis, | | | | | | type 4 | +--------+ + + + + Social [...] + + + + | Weight | 92.1 kg (203 lb) | 05/17/2019 4:31 PM | | | | | PDT | | + + + + + | Height | - | - | | + + + + + | Body Mass Index | 34.84 | 03/09/2019 2:08 PM | | | | | PST | | + + + + + documented in this encounter Progress Notes Mariana Cortez MD - 05/17/2019 4:30 PM PDTFormatting of this note might be different f rom the original. NEPHROLOGY TELEPHONE ENCOUNTER DATE OF ENCOUNTER: 05/17/2019 Participant(s): July Forte Participant verbally confirmed the choice to initiate care by, and consents to receive care by Telephone. SUBJECTIVE Chief Complaint Patient presents with Chronic Kidney Disease HPI: July oFrte is a 48 y.o. female with chronic kidney disease, RTA type 4, hy pertension, type 2 diabetes mellitus. Pt reports feeling well. Pt is working with Kell SY on her diabetes medication s. Pt states her regimen was adjusted recently, and she is having some low readings. Pt dougherty s contacted Kell's office. Pt denies shortness of breath, chest pain, edema, fever, dysuria. Pt does not take any NSAID. OBJECTIVE Vitals: 05/17/19 1631 Weight: 92.1 kg (203 lb) Body mass index is 34.84 kg/m. Exam unable to be performed. Patient Reported Taking Dosage albuterol 90 mcg/puff inhaler (Taking) Inhale 2 puffs into the lungs every 6 hours as need ed. Number of times this order has been changed since signin Order Audit Raymond Alcohol Swabs 70 % PADS (Taking) by Does not apply route. ascorbic acid (VITAMIN C) 500 mg tablet (Taking) Take 500 mg by mouth Daily. B-D UF III MINI PEN NEEDLES 31G X 5 MM MISC (Taking) CROW CONTOUR TEST strip (Taking) 4 strips Daily. Blood Glucose Monitoring Suppl (CONTOUR BLOOD GLUCOSE SYSTEM) JOANNA (Taking) by Does not ap ply route. bumetanide (BUMEX) 0.5 mg tablet (Taking) Take 2 tablets by mouth 2 times daily. Number of times this order has been changed since signin Order Audit Raymond cetirizine (ZYRTEC) 10 mg tablet (Taking) Take 10 mg by mouth Daily as needed for Allergie s. cholecalciferol (VITAMIN D-3) 2000 units TABS (Taking) Take 2,000 Units by mouth Daily. cyanocobalamin (VITAMIN B-12) 500 mcg tablet (Taking) Take 1,000 mcg by mouth Daily. EPIPEN 2-IGNACIO 0.3 MG/0.3ML injection (Taking) Inject 0.3 mLs into the muscle as needed for Anaphylaxis (okay to use generic). Number of times this order has been changed since signin Order Audit Raymond ferrous sulfate 325 mg tablet (Taking) Take 325 mg by mouth daily (with breakfast). fluticasone (FLONASE) 50 mcg/nasal spray (Taking) 1 spray by Nasal route Twice daily as n eeded. Number of times this order has been changed since signin Order Audit Raymond folic acid 1 mg tablet (Taking) Take 1 mg by mouth Daily. glyBURIDE (DIABETA) 5 mg tablet (Taking) Take 10 mg by mouth daily (with breakfast). ipratropium (ATROVENT) 0.06% nasal spray (Taking) ipratropium bromide 42 mcg (0.06 %) nasa l spray Magnesium 400 MG CAPS (Taking) Take 400 mg by mouth Daily. Number of times this order has been changed since signin Order Audit Raymond metoprolol succinate (TOPROL-XL) 25 mg 24 hr tablet (Taking) Take 25 mg by mouth Daily. omeprazole (PRILOSEC) 20 mg capsule (Taking) Take 20 mg by mouth 2 times daily. rosuvastatin (CRESTOR) 20 mg tablet (Taking) Take 20 mg by mouth nightly. SEMAGLUTIDE, 1 MG/DOSE, SC (Taking) Inject 1 mg under the skin Once a week. sodium bicarbonate 650 mg tablet (Taking) Take 1 tablet by mouth Daily. Number of times this order has been changed since signin Order Audit Raymond Keshav Shipley [facility] (Taking) Abstract on 05/16/2019 Component Date Value Ref Range Status Vitamin D, 25-Hydroxy, External 05/09/2019 30.7 Final Abstract on 05/11/2019 Component Date Value Ref Range Status Creatinine, External 05/09/2019 1.3 Final eGFR, External 05/09/2019 46 Final WBC, External 05/09/2019 6.63 Final HGB, External 05/09/2019 14.68 Final HCT, External 05/09/2019 43.78 Final PLT, External 05/09/2019 246 Final RBC, External 05/09/2019 4.51 Final MCV, External 05/09/2019 97 Final RDW, External 05/09/2019 13.67 Final UA Blood, External 05/09/2019 negative Final UA Glucose, External 05/09/2019 negative Final UA Ketones, External 05/09/2019 1+ Final UA Ph, External 05/09/2019 5.0 Final UA Proteins, External 05/09/2019 negative Final UA RBC, External 05/09/2019 0 Final UA Specific [place], External 05/09/2019 1.025 Final UA Leukocyte Esterase, External 05/09/2019 2+ Final Sodium, External 05/09/2019 137 Final Potassium, External 05/09/2019 4.2 Final Chloride, External 05/09/2019 100 Final Carbon Dioxide, External 05/09/2019 24 Final Calcium, External 05/09/2019 8.9 Final Phosphorus, External 05/09/2019 3.5 Final Albumin, External 05/09/2019 3.9 Final Glucose, External 05/09/2019 170 Final BUN, External 05/09/2019 39 Final WBC UA 05/09/2019 7 /HPF Final Color, UA 05/09/2019 yellow Final Clarity 05/09/2019 Clear Final Bacteria, UA 05/09/2019 1+ Final SQUAMOUS EPITHELIAL UA 05/09/2019 0-2 0 - 2 /LPF Final Nitrite, Urine 05/09/2019 Negative Negative Final Protein/Creatinine Ratio, External 05/09/2019 0.863* 0.2 Final PTH Intact, External 05/09/2019 44.15 12 - 88 Final ASSESSMENT AND PLAN 1. CKD (chronic kidney disease) stage 3, GFR 30-59 ml/min ([facility]) Proteinuric CKD, due to di abetic kidney disease. Kidney function is stable. -Recommend pt stay on a low dose losartan for anti-proteinuric affect. 2. Essential hypertension Pt reports her BP readings have been ok at other doctors' office s. 3. Type 2 diabetes mellitus with stage 3 chronic kidney disease, without long-term current use of insulin ([facility]) Pt will work with endocrine to optimize her glycemic control. 4. Renal tubular acidosis, type 4 On sodium bicarbonate. -Will renew. On 4:28, off 4:33, 5 minutes Clinical discussion length: 5-10 min (73040 or G2012) Patient has not been seen in office within the past 7 days, and outcome of this call is not to recommend soonest available office visit. Follow-up in 1 year. documented in this encounter Plan of [...] [place] | | | | | | [address] | | | | | | | | +--------+ + + + + | 05/22/ | Office | Nephrology | Mariana Cortez, | | | 2020 | Visit | | MD [address] | | | | | | [address] [place] | | | | | | [place] [address] | | | | | | [phone] | | | | | | | [...] of insulin (HCC) | + + | Renal tubular acidosis, type 4 Other specified disorders resulting from impaired | | renal function | + + documented in this encounter"
--- OUTSIDE RECORDS SUMMARY | ~2019-11-09 | XMS | Encounter Summary ---
Demographics + + + | Address | [address] | | | [place] [address] | + + + | Home Phone [...] Providers + +------+ + | Care Laborer Airport Maintenance Name | Role | Phone | + [...] | | | hair [place] | [place] [address] | [place], [place] | | | | | dander | Phone: | [address] | | | | | Non-seasonal | [phone] | Phone: | | | | | allergic | Fax: | [phone] | | | | | rhinitis due | [phone] | Fax: | | | | | to pollen | | [phone] | | | | | Extrinsic | [...] | unspecified whether | | | | [address] | | complicated, | | | | [phone] | | unspecified whether | | | [...] encounter Progress Notes Domenica Meredith RN - 12/11/2016 3:45 PM PDTPatient presents with epi-pen & inhaler. No ac tive wheezing or cough associated with asthma today. Denies delayed reaction from previous a llergy injection. No fever or allergy related rash. No recent heavy exposure to allergens. N o plans for strenuous exercise immediately before or after injection today.Electronically si gned by Domenica Meredith RN at 12/11/2016 4:15 PM PDTdocumented in this encounter Plan of [...] [place] | | | | | | [place] [address] | | | | | | [phone] | | | | | | | [...]
--- OUTSIDE RECORDS SUMMARY | ~2019-11-09 | XMS | Encounter Summary ---
Demographics + + + | Address | [address] | | | [place] [address] | + + + | Home Phone [...] Team Providers + +------+ + | Care Or Rn Name | Role | Phone | + +------+ + | Ronel Jacobson PA-C | PCP | | + +------+ + Reason for Visit + +--------+ + | Reason | Onset | Comments | | | Date | | + +--------+ + | Appointment | 09/30/ | Cancellled | | | 2015 | | + +--------+ + Encounter Details +--------+ + + + + | Date | Type | Department | Care Team | Description | +--------+ + + + + | 09/30/ | Telephone | [facility] | Henok Luther MD | Appointment | | 2015 | | OTOLARYNGOLOGY [address] | [address] [place] [address] | (Cancellled) | | | | [facility] [address] | [address] [place], [place] | | | | | [place] | [address] | | | | | [address] | | | | | | [phone] | | | +--------+ + + + [...] this encounter Miscellaneous Notes Telephone Encounter - Mala Lester LPN - 10/01/2015 11:23 AM PDTCalled back pt reyna rding her message that she is not feeling well today. Pt states her nose is stuffy, she has a mild cough, and her eyes are "itchy and watery." Pt was given the option to come in today to receive allergy injections regardless (did not meet the parameters to deny injection), pt declined and stated "I'd rather just come in for my appointment after this one on the 10/07 ". Appointment cancelled. Pt to follow up on 10/07, pt verbalized understanding, no further questions noted. Telephone Encounter - Lolly Wolff - 10/01/2015 10:45 AM PDTPatient not feeling well and having an, allergy injection and she's not sure to come in. documented in this encounter Plan of Treatment +--------+ + + + + | Date | Type | Specialty | Care Team | Description | +--------+ + + + + | 01/17/ | Appointment | Radiology | Bill Arevalo DNP | | | 2019 | | | [address] | | | | | | [place] | | | | | | [address] | | | | | | | | +--------+ + + + + | 01/17/ | Office | Vascular Surgery | Bill Arevalo DNP | | | 2019 | Visit | | [address] | | | | | | [place] | | | | | | [address] | | | | | | | | +--------+ + + + + | 05/22/ | Office | Nephrology | Mariana Cortez, | | | 2020 | Visit | | [address] | | | | | | [address] [place] | | | | | | [place] [address] | | | | | | [phone] | | | | | | | | +--------+ + + + + documented as of this encounter Visit Diagnoses Not on filedocumented in this encounter
--- OUTSIDE RECORDS SUMMARY | ~2019-11-09 | XMS | Encounter Summary ---
Demographics + + + | Address | [address] | | | [place] [address] | + + + | Home Phone [...] Team Providers + +------+ + | Care Vp Purchasing Name | Role | Phone | + +------+ + PCP | Unavailable | + +------+ + Reason for Visit + +--------+ + | Reason | Onset | Comments | | | Date | | + +--------+ + | Diarrhea | 08/21/ | | | | 2014 | | + +--------+ + Encounter Details +--------+ + + + + | Date | Type | Department | Care Team | Description | +--------+ + + + + | 08/21/ | Telephone | [facility] [place] | Mariana Cortez W, | Diarrhea | | 2015 | | NEPHROLOGY [address] | [address] | | | | | [address] | [address] [place] | | | | | [place], [place] | [place] [address] | | | | | [address] | [phone] | | | | | [phone] | | | +--------+ + + + [...] Telephone Encounter - Ada Serrano RN - 08/21/2014 10:57 AM PDTPatient instructed to d ecrease sodium bicarbonate to once daily, use imodium PRN for diarrhea, if no improvement st op medication and report to office; patient verbally expressed a clear understanding. Electr onically signed by Ada Serrano RN at 08/21/2014 10:59 AM PDTTelephone Encounter - Mariana Cortez MD - 08/21/2014 10:48 AM PDTHave her reduce it to once a day, and if no improv ement in diarrhea, stop medication. Take Imodium PRN for diarrhea. elephone Encounter - Ada Serrano RN - 08/21/2014 9:31 AM PDTPatient called to report that she has been having diarrhea daily since starting sodium bicarbonate last month - "I thought I'd give it time to adjust but I'm still having diarrhea daily." patient denies any other changes in med ication or diet. docu mented in this encounter Plan of [...] [place] | | | | | | [address] | | | | | | | | +--------+ + + + + | 01/17/ | Office | Vascular Surgery | Bill Arevalo DNP | | | 2019 | Visit | | [address] | | | | | | [place] | | | | | | [address] | | | | | | | | +--------+ + + + + | 05/22/ | Office | Nephrology | Mariana Cortez W, | | | 2020 | Visit | | [address] | | | | | | [place] | | | | | | [place] [address] | | | | | | [phone] | | | | | | | | +--------+ + + + + documented as of this encounter Visit Diagnoses Not on filedocumented in this encounter
--- OUTSIDE RECORDS SUMMARY | ~2019-11-09 | XMS | Encounter Summary ---
Demographics + + + | Address | [address] | | | [place] [address] | + + + | Home Phone [...] Team Providers + +------+ + | Care Special Education Classroom Aide Name | Role | Phone | [...] | [address] [place] | unspecified asthma | | | | [address] | [address] [place] | severity, | | | | [place], [place] | [address] | unspecified whether | | | | [address] | | complicated, | | | | [phone] | Mehrdad Thomas MD | unspecified whether | | | | | [address], [place] | persistent (Primary | | | | | [address] [place] [facility] [place] | Dx); Non-seasonal | | | | | [address] | allergic rhinitis | | | | [...] encounter Progress Notes Domenica Meredith RN - 11/13/2016 4:00 PM PDTPatient presents with epi-pen & inhaler. No ac tive wheezing or cough associated with asthma today. Denies delayed reaction from previous a llergy injection. No fever or allergy related rash. No recent heavy exposure to allergens. N o plans for strenuous exercise immediately before or after injection today.Electronically si gned by Domenica Meredith RN at 11/13/2016 4:21 PM PDTdocumented in this encounter Plan of [...] [place] | | | | | | [id number] | | | | | | | | +--------+ + + + + | 01/17/ | Office | Vascular Surgery | Bill Arevalo DNP | | | 2019 | Visit | | [address] | | | | | | [place] | | | | | | [address] | | | | | | | | +--------+ + + + + | 05/22/ | Office | Nephrology | Mariana Cortez, | | | 2020 | Visit | | MD Constantine [address] | | | | | | [address] [place] | | | | | | [place] [address] | | | | | | [phone] | | | | | | | [...]
--- OUTSIDE RECORDS SUMMARY | ~2019-11-09 | XMS | Encounter Summary ---
Demographics + + + | Address | [address] | | | [place] [address] | + + + | Home Phone [...] Team Providers + +------+ + | Care Remote Sensing Advisor Name | Role | Phone | + [...] | | | rhinitis due | [place] [address] | [address] Phone: | | | | | to animal | Phone: | [phone] | | | | | (cat) (dog) | [phone] | Fax: | | | | | hair and | Fax: | [phone] | | | | | dander | [phone] | | | | | | Allergic [...] | +--------+ + + + + | 12/18/ | Clinical | [facility] [place] | Henok Luther MD | Non-seasonal | | 2016 | Support | OTOLARYNGOLOGY [address] | [address] | allergic rhinitis | | | | [address] | [address] [place] | due to pollen | | | | [place] | [address] | (Primary Dx); | | | | [address] | | Allergic rhinitis | | | | [phone] | | due to animal (cat) | [...] encounter Progress Notes Narda Lay RN - 12/19/2015 4:03 PM PSTFormatting of this note might be [...] Mixed immunotherapy treatment vial for patient on 12/13/2015. TREATMENT SET [facility] Molds, Insects & Feathers: 88 12/19/2015 Allergen Extract Amount/ml Dilution Lot # Expiration Date Alternaria Aspergillus Cladosporium Penicillium Bipolaris Sorok. 0.1 C [id number] 03/20/18 Pullulans 0.1 C 067665 03/19/18 Mucor 0.1 C 022592 09/18/18 Phoma Rhodotorula 0.1 C 973351 03/19/18 Fusarium Paecilomyces Grain Smut 0.1 C 436567 07/07/18 Grass Smut 0.1 C 371252 09/10/16 Am. Cockroach 0.1 C 038284 09/18/18 Mixed Feathers 0.1 C 705404 03/19/18 Total Allergens : 0.8 ml. Saline: 1.7 ml. Total Volume : 2.[address]documented in this encounter Plan of Treatment +--------+ + + + + | Date | Type | Specialty | Care Team | Description | +--------+ + + + + | 01/17/ | Appointment | Radiology | Bill Arevalo DNP | | | 2019 | | | [address] | | | | | | [place] | | | | | | [address] | | | | | | | | +--------+ + + + + | 01/17/ | Office | Vascular Surgery | Bill Arevalo DNP | | | 2019 | Visit | | [address] | | | | | | [place] | | | | | | [address] | | | | | | | | +--------+ + + + + | 05/22/ | Office | Nephrology | Mariana Cortez, | | | 2020 | Visit | | [address] | | | | | | [address] [place] | | | | | | [place] [address] | | | | | | [phone] | | | | | | | [...]
--- OUTSIDE RECORDS SUMMARY | ~2019-11-09 | XMS | Encounter Summary ---
Demographics + + + | Address | [address] | | | [place] [address] | + + + | Home Phone | | + + + | Preferred Language | Unknown | + + + | Marital Status | Single | + + + | [employer] Affiliation | Unknown | + + + [...] Team Providers + +------+ + | Care Concrete Buster Operator Name | Role | Phone | [...] | | | | to pollen | [place] [address] | [address] Phone: | | | | | Allergic | Phone: | [phone] | | | | | rhinitis due | [phone] | Fax: | | | | | to dust | Fax: | [phone] | | | | | Mild | [phone] | | | | | | intermittent [...] + + + + | 06/24/ | Clinical | [facility] | Heonk Luther MD | Extrinsic asthma, | | 2019 | Support | OTOLARYNGOLOGY [address] | [address] | unspecified asthma | | | | [address] | [address] [place] | severity, | | | | [place] | [address] | unspecified whether | | | | [address] | | complicated, | | | | [phone] | | unspecified whether | | | [...] encounter Progress Notes Domenica Meredith RN - 06/24/2018 3:00 PM PDTPatient presents with epi-pen & inhaler. No ac tive wheezing or cough associated with asthma today. Denies delayed reaction from previous a llergy injection. No fever or allergy related rash. No recent heavy exposure to allergens. N o plans for strenuous exercise immediately before or after injection today.Electronically si gned by Domenica Meredith RN at 06/24/2018 3:11 PM PDTdocumented in this encounter Plan of [...] [place] | | | | | | [address] | | | | | | | | +--------+ + + + + | 05/22/ | Office | Nephrology | Mariana Cortez, | | | 2020 | Visit | | MD [address] | | | | | | [address] [place] | | | | | | [place] [address] | | | | | | [phone] | | | | | | | [...]
--- OUTSIDE RECORDS SUMMARY | ~2019-11-09 | XMS | Encounter Summary ---
Demographics + + + | Address | [address] | | | [place] [address] | + + + | Home Phone [...] Team Providers + +------+ + | Care Adult Literacy Teacher Name | Role | Phone | [...] | | | rhinitis due | [place] [address] | [address] Phone: | | | | | to animal | Phone: | [phone] | | | | | (cat) (dog) | [phone] | Fax: | | | | | hair and | Fax: | [phone] | | | | | dander | [phone] | | | | | | Allergic | | | | | | | rhinitis due | | | | | | | to dust | | | | | | | Procedures | | | | | | | CO | | | | | | | IMMUNOTHERAP | | | | | | | Y, ONE | | | | | | | INJECTION | | | | | | | CO | | | | | | | IMMUNOTHERAP | | | | | | | Y, 2+ | | | | | | | INJECTIONS | | | | | | | CO PROFES | | | | | | | SVC,IMMUNOTH | | | | | | | ER,SINGLE/MU | | | | | | | LT AGS | | | +--------+ + + + + + Encounter Details +--------+ + + + + | Date | Type | Department | Care Team | Description | +--------+ + + + + | 07/29/ | Clinical | [facility] [place] | Henok Luther MD | Allergic rhinitis | | 2016 | Support | OTOLARYNGOLOGY [address] | [address] | due to pollen | | | | [address] | [address] [place] | (Primary Dx); | | | | [place] | [address] | Allergic rhinitis | | | | [address] | | due to animal (cat) | | | | [phone] | | (dog) hair and | | [...] this encounter Progress Zoila Willis RN - 07/30/2015 4:28 PM PDTFormatting of this note might be differ ent from the original. Patient presents with epi-pen & inhaler. No active wheezing or cough associated with asthma today. Denies delayed reaction from previous allergy injection. No fever or allergy related rash. No recent heavy exposure to allergens. No plans for strenuous exercise immediately be fore or after injection today. Mixed one immunotherapy treatment vial today. [facility] [place] Molds, Insects & Feathers: 88 07/30/2015 Allergen Extract Amount/ml Dilution Lot # Expiration Date Alternaria Aspergillus Cladosporium Penicillium Bipolaris Sorok. 0.1 C 268746 03/20/18 Pullulans 0.1 C 694461 03/19/18 Mucor 0.1 C 377861 10/19/17 Phoma Rhodotorula 0.1 C 402404 03/19/18 Fusarium Paecilomyces Grain Smut 0.1 C 091769 01/20/18 Grass Smut 0.1 C 949457 09/10/16 Am. Cockroach 0.1 1 428629 07/03/17 Mixed Feathers 0.1 C 140811 03/19/18 Total Allergens : 0.8 ml. Saline: 1.7 ml. Total Volume : 2.5 ml. 4:4 0 PM PDTdocumented in this encounter Miscellaneous Notes Addendum Note - Zoila Benitez RN - 07/30/2015 4:56 PM PDT Addended by: ZOILA BHATIA on: 07/30/2015 16:56 Modules accepted: Level of Service documented i [...] [place] | | | | | | [address] | | | | | | | | +--------+ + + + + | 01/17/ | Office | Vascular Surgery | Bill Arevalo DNP | | | 2019 | Visit | | [address] | | | | | | [place] | | | | | | [address] | | | | | | | | +--------+ + + + + | 05/22/ | Office | Nephrology | Mariana Cortez, | | | 2020 | Visit | | [address] | | | | | | [address] [place] | | | | | | [place] [address] | | | | | | [phone] | | | | | | | [...]
--- OUTSIDE RECORDS SUMMARY | ~2019-11-09 | XMS | Encounter Summary ---
Demographics + + + | Address | [address] | | | [place] [address] | + + + | Home Phone [...] Team Providers + +------+ + | Care Interactive Marketing Strategist Name | Role | Phone | + [...] | | | rhinitis due | [place] [address] | [address] Phone: | | | | | to animal | Phone: | [phone] | | | | | (cat) (dog) | [phone] | Fax: | | | | | hair and | Fax: | [phone] | | | | | dander | [phone] | | | | | | Allergic [...] + + + + | 07/22/ | Clinical | [facility] [place] | Henok Luther MD | Allergic rhinitis | | 2016 | Support | OTOLARYNGOLOGY [address] | [address] | due to pollen | | | | [address] | [address] [place] | (Primary Dx); | | | | [place] | [address] | Allergic rhinitis | | | | [address] | | due to animal (cat) | | | | [phone] | | (dog) hair and | | [...] encounter Progress Notes Modesta Benitez RN - 07/23/2015 3:31 PM PDTPatient presents with epi-pen & inhaler . No active wheezing or cough associated with asthma today. Denies delayed reaction from pre vious allergy injection. No fever or allergy related rash. No recent heavy exposure to aller gens. No plans for strenuous exercise immediately before or after injection today.Electronic ally signed by Modesta Benitez RN at 07/23/2015 3:58 PM PDTdocumented in this encoun ter Plan [...] [place] | | | | | | [id number] | | | | | | | | +--------+ + + + + | 01/17/ | Office | Vascular Surgery | Bill Arevalo DNP | | | 2019 | Visit | | [address] | | | | | | [place] | | | | | | [address] | | | | | | | | +--------+ + + + + | 05/22/ | Office | Nephrology | Mariana Cortez, | | | 2020 | Visit | | [address] | | | | | | [address] | | | | | | [place] [address] | | | | | | [phone] | | | | | | | [...]
--- OUTSIDE RECORDS SUMMARY | ~2019-11-09 | XMS | Encounter Summary ---
Demographics + + + | Address | [address] | | | [place] [address] | + + + | Home Phone [...] Author + + + | Author | [facility] | | | and [place] | + + + | Organization | [facility] | | [...] Providers + +------+ + | Care Automotive Technician Name | Role | Phone | [...] | | | | severity, | [place] [address] | [place], [place] | | | | | unspecified | Phone: | [phone] | | | | | whether | [phone] | Phone: | | | | | complicated, | Fax: | [phone] | | | | | unspecified | [phone] | Fax: | | | | | whether | | [phone] | | | | | persistent | [...] | +--------+ + + + + | 03/04/ | Orders Only | [facility] [place] | Henok Luther MD | Extrinsic asthma, | | 2018 | | OTOLARYNGOLOGY [address] | [address] | unspecified asthma | | | | [address] | [address] [place] | severity, | | | | [place], [place] | [address] | unspecified whether | | | | [address] | | complicated, | | | | [phone] | | unspecified whether | | | [...] [place] | | | | | | [address] | | | | | | | | +--------+ + + + + | 01/17/ | Office | Vascular Surgery | Bill Arevalo DNP | | | 2019 | Visit | | [address] | | | | | | [place] | | | | | | [address] | | | | | | | | +--------+ + + + + | 05/22/ | Office | Nephrology | Mariana Cortez, | | | 2020 | Visit | | MD [address]ine [address] | | | | | | [address] | | | | | | [place] [address] | | | | | | [phone] | | | | | | | | +--------+ + + + + + + +--------+ + + | Name | Type | Priori | Associated Diagnoses | Order Schedule | | | | ty | | | + + +--------+ + + | * [facility] [place] | Outpatient | Routin | Extrinsic asthma, | Ordered: 03/04/2017 | | Otolaryngology - AMB | Referral [...] | | | | chronicity | | + + +--------+ + + [...]
--- OUTSIDE RECORDS SUMMARY | ~2019-11-09 | XMS | Encounter Summary ---
Demographics + + + | Address | [address] | | | [place] [address] | + + + | Home Phone [...] Author + + + | Author | [facility] | | | and [place] | + + + | Organization | [facility] | | | [...] Providers + +------+ + | Care Manager Storage Name | Role | Phone | + +------+ + | Mehrdad Avalos MD | PCP | | + +------+ + Reason for Visit Evaluate & Treat (Routine) +--------+ + + [...] Medicine | MARYURI | Karthikeyan Moura | [place] [address] | | | Required | | (obstructive | MD [address] | [facility] | | | | | sleep | [facility] | [place], | | | | | apnea) | [facility] | [place] [address] | | | | | Procedures | [place], [place] | Phone: | | | | | [place] SLEEP | [address] | [phone] | | | | | STUDY, | Phone: | Fax: | | | | | UNATTENDED, | [phone] | [phone] | | | | | SIMUL RECORD | Fax: | | | | | | HR/O2 | [phone] | | | | | | SAT/RESP [...] | +--------+ + + + + | 01/19/ | Hospital | [facility] | Karthikeyan Hdez | MARYURI (obstructive | | 2019 - | Encounter | MED CTR SLEEP | MD Suzi [address] [place] [address] | sleep apnea) | | | | [address] [facility] | | | 01/20/ | | Michelle [place] | [place] [address] | | | 2019 | | [address] | [phone] | | | | | [phone] | | | +--------+ + + + [...] 2 puffs into | | 0 | 08/19/20 | | | mcg/puff inhaler | the [...] + + + +---------+ + + | acetaminophen | Take 500 mg by mouth | | 0 | | | | (TYLENOL) 500 mg | every 6 hours as | | | | 0 | | tablet | needed for Pain. | | | | | + + + +---------+ + + | amLODIPine | Take 10 mg by mouth | | 0 | | | | (NORVASC) 10 MG | Daily. | | | | 0 | | tablet | | | | | | + + + +---------+ + + | azithromycin | Take 2 tablets by | 6 | 0 | 05/12/19 | | | (ZITHROMAX) 250 mg | mouth on day 1, and | tablet | | 19 | 0 | | tablet | 1 tablet by mouth | | | | | | | every day | | | | | + + + +---------+ + + | dulaglutide | Inject 0.75 mg under | | 0 | | | | (TRULICITY) 0.75 | the skin Once a | | | | 0 | | mg/0.5 mL injection | week. | | | | | + + + +---------+ + + | | Inhale 1 puff into | | 0 | | | | fluticasone-salmeter | the lungs 2 times | | | | 0 | | ol (ADVAIR HFA) | daily. | | | | | | 230-21 MCG/ACT | | | | | | | inhaler | | | | | | + + + +---------+ + + | gabapentin | Take 300 mg by mouth | | 0 | | | | (NEURONTIN) 300 mg | 3 times daily. | | | | 0 | | capsule | | | | | | + + + +---------+ + + | Loratadine 10 MG | Take 10 mg by mouth. | | 0 | | | | CAPS | | | | | 0 | + + + +---------+ + + | losartan (COZAAR) | Take 25 mg by mouth | | 0 | | | | 25 mg tablet | Daily. | | | | 0 | + + + +---------+ + + | | Inhale 2 puffs into | | 0 | | | | mometasone-formotero | the lungs as needed. | | | | 0 | | l (DULERA) 200-5 | | | | | | | mcg/puff inhaler | | | | | | + + + +---------+ + + | montelukast | Take 10 mg by mouth | | 0 | | | | (SINGULAIR) 5 mg | nightly. | | | | 0 | | chewable tablet | | | | | | + + + +---------+ + + | omeprazole | Take 20 mg by mouth | | 0 | | | | (PRILOSEC) 20 mg | 2 times daily. | | | | 0 | | capsule | | | | | | + + + +---------+ + + | rOPINIRole | Take 1 mg by mouth | | 0 | | | | (REQUIP) 1 mg tablet | nightly. | | | | 0 | + + + +---------+ + + | sodium bicarbonate | Take 1 tablet by | 90 | 3 | 05/15/19 | | | 650 mg tablet | mouth Daily. | tablet | | 19 | 0 | + + + +---------+ + + documented as of this encounter Procedure Notes Karthikeyan Hdez Jr., MD - 01/19/2019 10:00 AM PSTAssociated Order(s): SLEEP STUDY HOME SLE EP TESTProcedure(s): SLEEP STUDY HOME SLEEP TESTPre-Procedure Diagnose(s): MARYURI (obstructive sleep apnea)Post-Procedure Diagnose(s): MARYURI (obstructive sleep apnea) Alondra [facility] [place] [address] Unattended, Multiparameter, Sleep Apnea Test for July Forte performed on Decemb 2018. Identifying Information: July Forte is a 48 y.o. female who is referred for toma ttended, multi-parameter, sleep apnea test because of probable Obstructive Sleep Apnea. Technical Information: The study was performed on January 19, 2019 using the [employer] Nomad equipment with [employer] Version 11 Software. The study was hand [...] signal excursion by 90% or greater of pre-event baselin e using an oronasal thermal sensor, or an alternative apnea sensor and the duration of the 9 0% or greater drop in sensor signal is greater than or equal to 10 seconds. Obstructive Apnea: Event associated with continued or increased inspiratory effort throug hout the entire period of absent airflow. Central Apnea: Event associated with absent inspiratory effort throughout the entire gayla od of absent airflow. Because EEG is not monitored, Central Apneas cannot be scored with any degree of reliability on this type of sleep study. Mixed Apnea: Event associated with absent inspiratory effort in the initial portion of th e event followed by resumption of inspiratory effort during the second portion of the event. Because EEG is not monitored, mixed apneas are not reliably scored on this type of study. Respiratory Event: The peak signal excursions drop by greater than or equal to 30% of pre- event baseline using a recommended or alternative airflow sensor and the duration of the >= 30% drop in signal excursion is greater than or equal to 10 seconds and there is a greater t gonzalez or equal to a 3% oxygen desaturation from pre-event baseline. Respiratory Event Related Arousal: Because EEG is not recorded, Respiratory Event Related Arousal's cannot be enumerated. ROXANNE (Respiratory Event Index): Apneas plus Respiratory Events divided by Monitoring Time. Results: Data collection commenced at 0 hundred hours on January 19, 2019 and data yvonne ection terminated at 0320 hundred hours on 01/2019. During the 400 [...] Treatment of Obstructive Sleep Apnea is advised. Karthikeyan Hdez Jr., MD, [facility] Car Pre Cooler [facility] [place], [place] Clinical mill house supervisor [place], [place] documented in th is encounter Plan of [...] [place] | | | | | | [address] | | | | | | | | +--------+ + + + + | 01/17/ | Office | Vascular Surgery | Bill Arevalo DNP | | | 2019 | Visit | | [address] | | | | | | [place] | | | | | | [address] | | | | | | | | +--------+ + + + + | 05/22/ | Office | Nephrology | Mariana Cortez, | | | 2020 | Visit | | [address] | | | | | | [address] | | | | | | [place] [address] | | | | | | [phone] | | | | | | | | +--------+ + + + + documented as of this encounter Procedures + +--------+ + + + | Procedure Name | Priori | Date/Time | Associated Diagnosis | Comments | | | ty | | | | + +--------+ + + + | SLEEP STUDY HOME | Routin | 01/19/2019 | | Results for this | | SLEEP TEST | e | 10:00 AM | | procedure are in the | | | | PST | | results section. | + +--------+ + + + | SLEEP STUDY HOME | Routin | 01/19/2019 | | Results for this | | SLEEP TEST | e | 10:00 AM | | procedure are in the | | | | PST | | results section. | + +--------+ + + + documented in this encounter Results Sleep study home sleep test (01/19/2019 10:00 AM PST) + + + | Narrative | Performed At | + + + | Karthikeyan Moura | | | Lemuel Archer MD 01/20/2019 12:46 PM [facility] | | | [place] [address] | | | Unattended, Multiparameter, Sleep Apnea Test for July Alejo | | | Jann performed on January 19, 2019. Identifying Information: | | | July Forte is a 48 y.o. female who is referred for | | | unattended, multi-parameter, sleep apnea test because of probable | | | Obstructive Sleep Apnea. Technical Information: The study was | | | performed on January 19, 2019 using the [facility] equipment | | | with Polysmith Version 11 Software. The study was hand scored and hand | | | analyzed. The following physiologic parameters were monitored: | | | snoring, body position, oxygen saturation, heart rate, nasal airflow | | | (PTAF), oral airflow (thermister) and thoracic and abdominal effort | | | (RIP belts). EEG was not monitored and thus sleep staging was not | | | performed. The Monitoring Time is the recording time from lights off | | | until lights on (the start of the recording until the recording | | | stops, but it can also be from the time the patient went to bed until | | | he/she got out of bed and started his/her day - as determined by a | | | sleep diary). A Monitoring Time Sleep Efficiency of 100% was assumed | | | for the purposes of calculating indices; this assumption can result | | | in a significant underestimation of disease severity. Because EEG was | | | not monitored, Respiratory Effort Related Arousals could not be | | | enumerated; this can also result in underestimation of disease | | | severity. The sensitivity for Obstructive Sleep Apnea of this type of | | | study is high but the specificity is low. Definitions (The AASM Manual | | | for the Scoring of Sleep and Associated Events, Version 2.5; 2018): | | | Apnea: There is a drop in the peak signal excursion by 90% or greater | | | of pre-event baseline using an oronasal thermal sensor, or an | | | alternative apnea sensor and the duration of the 90% or greater drop | | | in sensor signal is greater than or equal to 10 seconds. Obstructive | | | Apnea: Event associated with continued or increased inspiratory | | | effort throughout the entire period of absent airflow. Central | | | Apnea: Event associated with absent inspiratory effort throughout the | | | entire period of absent airflow. Because EEG is not monitored, Central | | | Apneas cannot be scored with any degree of reliability on this type | | | of sleep study. Mixed Apnea: Event associated with absent | | | inspiratory effort in the initial portion of the event followed by | | | resumption of inspiratory effort during the second portion of the | | | event. Because EEG is not monitored, mixed apneas are not reliably | | | scored on this type of study. Respiratory Event: The peak signal | | | excursions drop by greater than or equal to 30% of pre-event baseline | | | using a recommended or alternative airflow sensor and the duration of | | | the >= 30% drop in signal excursion is greater than or equal to 10 | | | seconds and there is a greater than or equal to a 3% oxygen | | | desaturation from pre-event baseline. Respiratory Event Related | | | Arousal: Because EEG is not recorded, Respiratory Event Related | | | Arousal's cannot be enumerated. ROXANNE (Respiratory Event Index): Apneas | | | plus Respiratory Events divided by Monitoring Time. Results: Data | | | collection commenced at 0 hundred hours on January 19, 2019 and | | | data collection terminated at 0320 hundred hours on number 01/2019. | | | During the 400 minutes monitoring time there were 14 obstructive | | | apneas, 0 central apneas, 0 mixed apneas and 51 respiratory events. | | | The ROXANNE was elevated at 9.8. The events were more frequent in the | | | supine position (supine ROXANNE 27.5, nonsupine ROXANNE 0.5). The respiratory | | | events occasioned a ronn oxygen saturation of 83% and the patient | | | spent 2.8 minutes with an oxygen saturation of less than or equal to | | | 90%. The heart rate averaged in the upper 80s. Interpretation: This | | | unattended, multiparameter, sleep apnea test is abnormal because of | | | the following: Obstructive sleep apnea is diagnosed and this is | | | associated with mild oxygen desaturation. Suggestions: Treatment of | | | Obstructive Sleep Apnea is advised. Karthikeyan Hdez Jr., MD, | | | [facility] DirectorBaptist [facility] | | | [facility] | | | Public Relations Player [place], [place] | | | | | |Results: Data collection commenced at 2039 hundred hours on | | |January 19, 2019 and data collection terminated at 0320 hundred | | |hours on number 01/2019. During the 400 minutes monitoring time | | |there were 14 obstructive apneas, 0 central apneas, 0 mixed | | |apneas and 51 respiratory events. The ROXANNE was elevated at 9.8. | | |The events were more frequent in the supine position (supine ROXANNE | | |27.5, nonsupine ROXANNE 0.5). The respiratory events occasioned a | | |ronn oxygen saturation of 83% and the patient spent 2.8 minutes | | |with an oxygen saturation of less than or equal to 90%. The heart | | |rate averaged in the upper 80s. | | | | | |Interpretation: This unattended, multiparameter, sleep apnea test | | |is abnormal because of the following: | | |Obstructive sleep apnea is diagnosed and this is associated with | | |mild oxygen desaturation. | | | | | |Suggestions: | | |Treatment of Obstructive Sleep Apnea is advised. | | | | | |Karthikeyan Hdez Jr., MD, [facility] | | |Car Pre Cooler | | |[facility] | | |[facility] | | |[place], [place] | | |Clinical mill house supervisor | | |[facility] | | |[place], [place] | | | | | + + + + + | Procedure Note | + + | Karthikeyan Hdez Jr., MD - 01/19/2019 10:00 AM PST [facility] | | Disorders [place], [place] [address], | | Multiparameter, Sleep Apnea Test for July Forte performed on January 19 | | 2019.Identifying Information: July Forte is a 48 y.o. female who is referred | | for unattended, multi-parameter, sleep apnea test because of probable Obstructive Sleep | | Apnea.Technical Information: The study was performed on January 19, 2019 using the | | [employer] Nomad equipment with Polysmitsilkfred Version 11 Software. The study was hand | | scored and hand analyzed. The following physiologic parameters were monitored: snoring, | | body position, oxygen saturation, heart rate, nasal airflow (PTAF), oral airflow | | (thermister) and thoracic and abdominal effort (RIP belts). EEG was not monitored and | | thus sleep staging was not performed. The Monitoring Time is the recording time from | | lights off until lights on (the start of the recording until the recording stops, but it | | can also be from the time the patient went to bed until he/she got out of bed and | | started his/her day - as determined by a sleep diary). A Monitoring Time Sleep | | Efficiency of 100% was assumed for the purposes of calculating indices; this assumption | | can result in a significant underestimation of disease severity. Because EEG was not | | monitored, Respiratory Effort Related Arousals could not be enumerated; this can also | | result in underestimation of disease severity. The sensitivity for Obstructive Sleep | | Apnea of this type of study is high but the specificity is low.Definitions (The AASM | | Manual for the Scoring of Sleep and Associated Events, Version 2.5; 2018): Apnea: There | | is a drop in the peak signal excursion by 90% or greater of pre-event baseline using an | | oronasal thermal sensor, or an alternative apnea sensor and the duration of the 90% or | | greater drop in sensor signal is greater than or equal to 10 seconds. Obstructive | | Apnea: Event associated with continued or increased inspiratory effort throughout the | | entire period of absent airflow. Central Apnea: Event associated with absent | | inspiratory effort throughout the entire period of absent airflow. Because EEG is not | | monitored, Central Apneas cannot be scored with any degree of reliability on this type | | of sleep study. Mixed Apnea: Event associated with absent inspiratory effort in the | | initial portion of the event followed by resumption of inspiratory effort during the | | second portion of the event. Because EEG is not monitored, mixed apneas are not reliably | | scored on this type of study. Respiratory Event: The peak signal excursions drop by | | greater than or equal to 30% of pre-event baseline using a recommended or alternative | | airflow sensor and the duration of the >= 30% drop in signal excursion is greater than | | or equal to 10 seconds and there is a greater than or equal to a 3% oxygen desaturation | | from pre-event baseline. Respiratory Event Related Arousal: Because EEG is not recorded, | | Respiratory Event Related Arousal's cannot be enumerated. ROXANNE (Respiratory Event | | Index): Apneas plus Respiratory Events divided by Monitoring Time.Results: Data | | collection commenced at 0 hundred hours on January 19, 2019 and data collection | | terminated at 0 hundred hours on 01/2019. During the 400 minutes monitoring | | time there were 14 obstructive apneas, 0 central apneas, 0 mixed apneas and 51 | | respiratory events. The ROXANNE was elevated at 9.8. The events were more frequent in the | | supine position (supine ROXANNE 27.5, nonsupine ROXANNE 0.5). The respiratory events occasioned | | a ronn oxygen saturation of 83% and the patient spent 2.8 minutes with an oxygen | | saturation of less than or equal to 90%. The heart rate averaged in the upper | | 80s.Interpretation: This unattended, multiparameter, sleep apnea test is abnormal | | because of the following: Obstructive sleep apnea is diagnosed and this is associated | | with mild oxygen desaturation.Suggestions: Treatment of Obstructive Sleep Apnea is | | advised.Karthikeyan Hdez Jr., MD, FAASMMedical DirectorBaptist Health Medical Center Sleep | | Disorders CenterProvidence Kensington HospitalJESSICAinical Associate | | Professor of MedicineCon[place], [place] | + + documented in this encounter Visit Diagnoses + + | Diagnosis | + + | MARYURI (obstructive sleep apnea) Obstructive sleep apnea (adult) (pediatric) | + + documented in this encounter"
--- OUTSIDE RECORDS SUMMARY | ~2019-11-09 | XMS | Encounter Summary ---
Demographics + + + | Address | [address] | | | [place] [address] | + + + | Home Phone | | + + + | Preferred Language | Unknown | + + + | Marital Status | Single | + + + | Congregation Affiliation | Unknown | + + + [...] Team Providers + +------+ + | Care Animal Eviscerator Name | Role | Phone | + [...] | Otolaryngolog | Diagnoses | [place], | Hneok Luther | | | Services | y [...] | | | | severity, | [place] [address] | [address] Phone: | | | | | uncomplicate | Phone: | [phone] | | | | | d | [phone] | Fax: | | | | | Non-seasonal | Fax: | [phone] | | | | | allergic | [phone] | | | | | | rhinitis [...] + + + + | 08/21/ | Clinical | [facility] [place] | Henok Luther MD | Allergic rhinitis | | 2017 | Support | OTOLARYNGOLOGY [address] | [address] | due to animal (cat) | | | | [address] | [address] [place] | (dog) hair and | | | | [place] | [address] | dander (Primary Dx); | | | | [address] | | Non-seasonal | | | | [phone] | | allergic rhinitis | | | [...] encounter Progress Notes Domenica Meredith RN - 08/21/2016 4:15 PM PDTFormatting of this note might [...] Mixed immunotherapy treatment vial for patient on 08/21/16. TREATMENT SET [facility] TREES, DUST, DANDER: 87 08/21/2016 Allergen Extract Amount/mL Dilution Lot # Expiration Date [place] Mix [place] 0.2 C [id number] 06/11/19 Sugar Maple [place] 0.2 C [id number] 03/18/19 [place] 0.2 C [id number] 06/11/19 Spring Birch [place] 0.2 C [id number] 03/18/19 [place] 0.2 C [id number] 03/30/19 Black [place] 0.2 C [id number] 08/04/19 Lao [place] 0.2 C [id number] 03/18/19 Mites, Farinae 0.1 C [id number] 09/08/18 Mites, Ptero. 0.1 C [id number] 02/17/18 Cat Hair 0.1 C [id number] 06/30/18 Dog Epi. Horse Epi Total Allergens : 1.7 ml. Saline: 0.8 ml. Total Volume: 2.5 ml. documented in this en counter Plan [...] [place] | | | | | | [address] | | | | | | | | +--------+ + + + + | 01/17/ | Office | Vascular Surgery | Bill Arevalo DNP | | | 2019 | Visit | | [address] | | | | | | [place] | | | | | | [address] | | | | | | | | +--------+ + + + + | 05/22/ | Office | Nephrology | Mariana Cortez, | | | 2020 | Visit | | [address] | | | | | | [address] | | | | | | [place] [address] | | | | | | [phone] | | | | | | | | +--------+ + + + + +-------+ +--------+ + + | Name | Type | Priori | Associated Diagnoses | Order Schedule | | | | ty | | | +-------+ +--------+ + + | Vials | Procedures | Routin | Allergic rhinitis | Ordered: 08/21/2016 | | | | e | due to animal (cat) [...] mite | | | | | | Extrinsic asthma, | | | | | | unspecified | | +-------+ +--------+ + + [...]
--- OUTSIDE RECORDS SUMMARY | ~2019-11-09 | XMS | Encounter Summary ---
Demographics + + + | Address | [address] | | | [place] [address] | + + + | Home Phone [...] Providers + +------+ + | Care Supervisor [employer] Name | Role | Phone | + [...] | | | hair and | [place] [address] | [place], [place] | | | | | dander | Phone: | [phone] | | | | | Non-seasonal | [phone] | Phone: | | | | | allergic | Fax: | [phone] | | | | | rhinitis due | [phone] | Fax: | | | | | to pollen | | [phone] | | | | | Extrinsic | [...] [place] | severity, | | | | [place] | [address] | unspecified whether | | | | [address] | | complicated, | | | | [phone] | | unspecified whether | | | [...] encounter Progress Notes Domenica Meredith RN - 11/27/2016 4:00 PM PDTPatient presents with epi-pen & inhaler. No ac tive wheezing or cough associated with asthma today. Denies delayed reaction from previous a llergy injection. No fever or allergy related rash. No recent heavy exposure to allergens. N o plans for strenuous exercise immediately before or after injection today.Electronically si gned by Domenica Meredith RN at 11/27/2016 4:35 PM PDTDaDomenica palomares RN - 11/27/2016 4:00 PM PDT Patient presents with epi-pen & inhaler. No active wheezing or cough associated with asthma today. Denies delayed reaction from previous allergy injection. No fever or allergy related rash. No recent heavy exposure to allergens. No plans for strenuous exercise immediately be fore or after injection today. Mixed immunotherapy treatment vial for patient on 11/24/16. TREATMENT SET [facility] Jann TREES, DUST, DANDER: 87 11/27/2016 Allergen Extract Amount/mL Dilution Lot # Expiration Date [place] Mix [place] 0.2 C [id number] 09/10/19 Sugar Maple Western [place] 0.2 C [id number] 05/25/19 Aurora 0.2 C [id number] 09/10/19 Spring Birch White [place] Mark Anthony 0.2 C 555588 05/25/19 Juniper 0.2 C [id number] 04/25/19 Black [place] 0.2 C 667605 08/04/19 Finnish [place] 0.2 C 313253 04/29/19 Mites, Farinae 0.1 C 179219 09/08/18 Mites, Ptero. 0.1 C [id number] 07/14/18 Cat Hair 0.1 C 481686 11/24/18 Dog Epi. Horse Epi Total Allergens : 1.7 ml. Saline: 0.8 ml. Total Volume: 2.5 ml. Mixed immunotherapy treatment vial for patient on 11/24/16. TREATMENT SET July [place] Molds, Insects & Feathers: 88 11/27/2016 Allergen Extract Amount/ml Dilution Lot # Expiration Date Alternaria Aspergillus Cladosporium Penicillium Bipolaris Sorok. 0.1 C [id number] 08/04/19 Pullulans 0.1 C 762703 06/11/19 Mucor 0.1 C [id number] 05/13/19 Phoma Rhodotorula 0.1 C 023313 06/11/19 Fusarium Paecilomyces Grain Smut 0.1 C 217470 06/11/19 Grass Smut 0.1 C 725422 06/11/19 Am. Cockroach 0.1 C 578630 06/11/19 Mixed Feathers 0.1 C 518656 08/17/19 Total Allergens: 0.8 mL Saline: 1.7 [...] PONCE | | | | | | [address] | | | | | | | | +--------+ + + + + | 05/22/ | Office | Nephrology | Mariana Cortez, | | | 2020 | Visit | | MD [address] | | | | | | [address] [place] | | | | | | [place] [address] | | | | | | [phone] | | | | | | | | +--------+ + + + + +-------+ +--------+ + + | Name | Type | Priori | Associated Diagnoses | Order Schedule | | | | ty | | | +-------+ +--------+ + + | Vials | Procedures | Routin | Non-Seasonal | Ordered: 11/27/2016 | | | | e | Allergic Rhinitis | | | | [...] Extrinsic | | | | | | Asthma, Unspecified | | | | | | Asthma Severity, | | | | | | Unspecified Whether | | | | | | Complicated, | | | | | | Unspecified Whether | | | | | | Persistent | | +-------+ +--------+ + + documented [...]
--- OUTSIDE RECORDS SUMMARY | ~2019-11-09 | XMS | Encounter Summary ---
Demographics + + + | Address | [address] | | | [place] [address] | + + + | Home Phone [...] Team Providers + +------+ + | Care Rug Touch Up Painter Name | Role | Phone | + +------+ + | Ronel Jacobson PA-C | PCP | | + +------+ + Encounter Details +--------+ + + + + | Date | Type | Department | Care Team | Description | +--------+ + + + + | 04/13/ | Abstract | [facility] | Mariana Cortez W, | | | 2018 | | NEPHROLOGY [address] | [address] | | | | | [address] | [address] [place] | | | | | [place], [place] | [place] [address] | | | | | [address] | [phone] | | | | | [phone] | | | +--------+ + + + [...] [place] | | | | | | [address] | | | | | | | | +--------+ + + + + | 01/17/ | Office | Vascular Surgery | Bill Arevalo DNP | | | 2019 | Visit | | [address] | | | | | | [place] | | | | | | [address] | | | | | | | | +--------+ + + + + | 05/22/ | Office | Nephrology | Mariana Cortez | | | 2020 | Visit | | [address] | | | | | | [address] [place] | | | | | | [place] [address] | | | | | | [phone] | | | | | | | | +--------+ + + + + documented as of this encounter Procedures + +--------+ + + + | Procedure Name | Priori | Date/Time | Associated Diagnosis | Comments | | | ty | | | | + +--------+ + + + | EXTERNAL LAB: LEVI | Routin | 04/12/2018 | | Results for this | | | e | | | procedure are in the | | | | | | results section. | + +--------+ + + + | EXTERNAL LAB: | Routin | 04/12/2018 | | Results for this | | GLUCOSE | e | | | procedure are in the | | | | | | results section. | + +--------+ + + + | EXTERNAL LAB: | Routin | 04/12/2018 | | Results for this | | ALBUMIN | e | | | procedure are in the | | | | | | results section. | + +--------+ + + + | EXTERNAL LAB: | Routin | 04/12/2018 | | Results for this | | PHOSPHORUS | e | | | procedure are in the | | | | | | results section. | + +--------+ + + + | EXTERNAL LAB: | Routin | 04/12/2018 | | Results for this | | CALCIUM | e | | | procedure are in the | | | | | | results section. | + +--------+ + + + | EXTERNAL LAB: CARBON | Routin | 04/12/2018 | | Results for this | | DIOXIDE | e | | | procedure are in the | | | | | | results section. | + +--------+ + + + | EXTERNAL LAB: | Routin | 04/12/2018 | | Results for this | | CHLORIDE | e | | | procedure are in the | | | | | | results section. | + +--------+ + + + | EXTERNAL LAB: | Routin | 04/12/2018 | | Results for this | | POTASSIUM | e | | | procedure are in the | | | | | | results section. | + +--------+ + + + | EXTERNAL LAB: SODIUM | Routin | 04/12/2018 | | Results for this | | | e | | | procedure are in the | | | | | | results section. | + +--------+ + + + | EXTERNAL LAB: CBC | Routin | 04/12/2018 | | Results for this | | | e | | | procedure are in the | | | | | | results section. | + +--------+ + + + | EXTERNAL LAB: KEVIN | Routin | 04/12/2018 | | Results for this | | | e | | | procedure are in the | | | | | | results section. | + +--------+ + + + | EXTERNAL LAB: | Routin | 04/12/2018 | | Results for this | | CREATININE | e | | | procedure are in the | | | | | | results section. | + +--------+ + + + documented in this encounter Results External Lab: BUN (04/12/2018) + +-------+ + + + | Component | Value | Ref Range | Performed | Pathologist | | | | | At | Signature | + +-------+ + + + | BUN, | 52 | | EXTERNAL | | | External | | | LAB | | + +-------+ + + + + +---------+ + + | Performing | Address | City/State/Zipcode | Phone Number | | Organization | | | | + +---------+ + + | EXTERNAL LAB | | | | + +---------+ + + External Lab: Glucose (04/12/2018) + +-------+ + + + | Component | Value | Ref Range | Performed | Pathologist | | | | | At | Signature | + +-------+ + + + | Glucose, | 357 | | EXTERNAL | | | External | | | LAB | | + +-------+ + + + + +---------+ + + | Performing | Address | City/State/Zipcode | Phone Number | | Organization | | | | + +---------+ + + | EXTERNAL LAB | | | | + +---------+ + + External Lab: Albumin (04/12/2018) + +-------+ + + + | Component | Value | Ref Range | Performed | Pathologist | | | | | At | Signature | + +-------+ + + + | Albumin, | 3.7 | | EXTERNAL | | | External | | | LAB | | + +-------+ + + + + +---------+ + + | Performing | Address | City/State/Zipcode | Phone Number | | Organization | | | | + +---------+ + + | EXTERNAL LAB | | | | + +---------+ + + External Lab: Phosphorus (04/12/2018) + +-------+ + + + | Component | Value | Ref Range | Performed | Pathologist | | | | | At | Signature | + +-------+ + + + | Phosphorus, | 4.1 | | EXTERNAL | | | External | | | LAB | | + +-------+ + + + + +---------+ + + | Performing | Address | City/State/Zipcode | Phone Number | | Organization | | | | + +---------+ + + | EXTERNAL LAB | | | | + +---------+ + + External Lab: Calcium (04/12/2018) + +-------+ + + + | Component | Value | Ref Range | Performed | Pathologist | | | | | At | Signature | + +-------+ + + + | Calcium, | 9.1 | | EXTERNAL | | | External | | | LAB | | + +-------+ + + + + +---------+ + + | Performing | Address | City/State/Zipcode | Phone Number | | Organization | | | | + +---------+ + + | EXTERNAL LAB | | | | + +---------+ + + External Lab: Carbon Dioxide (04/12/2018) + +-------+ + + + | Component | Value | Ref Range | Performed | Pathologist | | | | | At | Signature | + +-------+ + + + | Carbon | 21 | | EXTERNAL | | | Dioxide, | | | LAB | | | External | | | | | + +-------+ + + + + +---------+ + + | Performing | Address | City/State/Zipcode | Phone Number | | Organization | | | | + +---------+ + + | EXTERNAL LAB | | | | + +---------+ + + External Lab: Chloride (04/12/2018) + +-------+ + + + | Component | Value | Ref Range | Performed | Pathologist | | | | | At | Signature | + +-------+ + + + | Chloride, | 101 | | EXTERNAL | | | External | | | LAB | | + +-------+ + + + + +---------+ + + | Performing | Address | City/State/Zipcode | Phone Number | | Organization | | | | + +---------+ + + | EXTERNAL LAB | | | | + +---------+ + + External Lab: Potassium (04/12/2018) + +-------+ + + + | Component | Value | Ref Range | Performed | Pathologist | | | | | At | Signature | + +-------+ + + + | Potassium, | 5.1 | | EXTERNAL | | | External | | | LAB | | + +-------+ + + + + +---------+ + + | Performing | Address | City/State/Zipcode | Phone Number | | Organization | | | | + +---------+ + + | EXTERNAL LAB | | | | + +---------+ + + External Lab: Sodium (04/12/2018) + +-------+ + + + | Component | Value | Ref Range | Performed | Pathologist | | | | | At | Signature | + +-------+ + + + | Sodium, | 135 | | EXTERNAL | | | External | | | LAB | | + +-------+ + + + + +---------+ + + | Performing | Address | City/State/Zipcode | Phone Number | | Organization | | | | + +---------+ + + | EXTERNAL LAB | | | | + +---------+ + + External Lab: CBC (04/12/2018) + +-------+ + + + | Component | Value | Ref Range | Performed | Pathologist | | | | | At | Signature | + +-------+ + + + | WBC, | 7.96 | | EXTERNAL | | | External | | | LAB | | + +-------+ + + + | HGB, | 9.76 | | EXTERNAL | | | External | | | LAB | | + +-------+ + + + | HCT, | 29.4 | | EXTERNAL | | | External | | | LAB | | + +-------+ + + + | PLT, | 347 | | EXTERNAL | | | External | | | LAB | | + +-------+ + + + | RBC, | 3.42 | | EXTERNAL | | | External | | | LAB | | + +-------+ + + + | MCV, | 86 | | EXTERNAL | | | External | | | LAB | | + +-------+ + + + | RDW, | 21.18 | | EXTERNAL | | | External | | | LAB | | + +-------+ + + + + +---------+ + + | Performing | Address | City/State/Zipcode | Phone Number | | Organization | | | | + +---------+ + + | EXTERNAL LAB | | | | + +---------+ + + External Lab: eGFR (04/12/2018) + +-------+ + + + | Component | Value | Ref Range | Performed | Pathologist | | | | | At | Signature | + +-------+ + + + | eGFR, | 34 | | EXTERNAL | | | External [...] + +---------+ + + External Lab: Creatinine (04/12/2018) + +-------+ + + + | Component | Value | Ref Range | Performed | Pathologist | | | | | At | Signature | + +-------+ + + + | Creatinine, | 1.7 | | EXTERNAL | | | External [...]
--- OUTSIDE RECORDS SUMMARY | ~2019-11-09 | XMS | Encounter Summary ---
Demographics + + + | Address | [address] | | | [place] [address] | + + + | Home Phone [...] Team Providers + +------+ + | Care Wood Heel Back Liner Name | Role | Phone | + [...] | | | hair [place] | [place] [address] | [place], [place] | | | | | dander | Phone: | [phone] | | | | | Non-seasonal | [phone] | Phone: | | | | | allergic | Fax: | [phone] | | | | | rhinitis due | [phone] | Fax: | | | | | to pollen | | [phone] | | | | | Extrinsic | [...] + + + + | 10/09/ | Clinical | [facility] [place] | Henok Luther MD | Non-seasonal | | 2017 | Support | OTOLARYNGOLOGY [address] | [address] [place] | allergic rhinitis | | | | [address] | [address] [place] | due to pollen | | | | [place] | [address] | (Primary Dx); | | | | [address] | | Allergic rhinitis | | | | [phone] | | due to animal (cat) | [...] encounter Progress Notes Domenica Meredith RN - 10/09/2016 4:00 PM PDTPatient presents with epi-pen & inhaler. No ac tive wheezing or cough associated with asthma today. Denies delayed reaction from previous a llergy injection. No fever or allergy related rash. No recent heavy exposure to allergens. N o plans for strenuous exercise immediately before or after injection today.Electronically si gned by Domenica Meredith RN at 10/09/2016 4:39 PM PDTdocumented in this encounter Plan of Treatment +--------+ + + + + | Date | Type | Specialty | Care Team | Description | +--------+ + + + + | 01/17/ | Appointment | Radiology | Bill Arevalo DNP | | | 2019 | | | [address] | | | | | | [place] | | | | | | [address] | | | | | | | | +--------+ + + + + | 01/17/ | Office | Vascular Surgery | Bill Arevalo DNP | | 2019 | Visit | | [address] | | | | | | [place] | | | | | | [address] | | | | | | | | +--------+ + + + + | 05/22/ | Office | Nephrology | Mariana Cortez, | | | 2020 | Visit | | [address] | | | | | | [address] [place] | | | | | | [place] [address] | | | | | | [phone] | | | | | | | [...]
--- OUTSIDE RECORDS SUMMARY | ~2019-11-09 | XMS | Encounter Summary ---
Demographics + + + | Address | [address] | | | [place] [address] | + + + | Home Phone [...] Team Providers + +------+ + | Care Food Service Clerk Name | Role | Phone | + +------+ + | Ronel Jacobson PA-C | PCP | | + +------+ + Encounter Details +--------+ + + + + | Date | Type | Department | Care Team | Description | +--------+ + + + + | 07/06/ | Orders Only | [facility] [place] | Glo Scanlon, | | | 2018 | | NEPHROLOGY [address] | RN | | | | | [address] | | | | | | [place] | | | | | | [address] | | | | | | [phone] | | | +--------+ + + + [...] [place] | | | | | | [address] | | | | | | | | +--------+ + + + + | 01/17/ | Office | Vascular Surgery | Bill Arevalo DNP | | | 2019 | Visit | | [address] | | | | | | [place] | | | | | | [address] | | | | | | | | +--------+ + + + + | 05/22/ | Office | Nephrology | Mariana Cortez, | | | 2020 | Visit | | [address] | | | | | | [address] [place] | | | | | | [place] [address] | | | | | | [phone] | | | | | | | | +--------+ + + + + documented as of this encounter Visit Diagnoses Not on filedocumented in this encounter"
[~2019-11-09 15:18] MED LIST changes: +AUGMENTIN 875-1 EACH PO; +CIPRO500 MG PO; +FLONASE ALLERG9.9 ML NAS; +LANTUS SOL100 UNIT/1 SUB-Q; +LEVOFLOXAC750 MG/150 IV; +MAGOX 400400 MG PO; +OZEMPIC1 MG/0.75 SUB-Q; +SODIUM BICARBO650 MG PO; +TRAMADOL HCL50 MG PO; +TYLENOL EXTRA500 MG PO; +VANCO 2 GR2 GM/500 M IV; +VITAMIN C500 M1 PO
--- OUTSIDE RECORDS SUMMARY | 2019-11-09 15:20 | XMS ---
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 Care History Medical/Surgical 03/26/2018 [facility] - PATIENT IS A YELLOWHAWK ELIGIBLE, \T\middot;\T\nbsp; PLEASE REFER PATIENT TO [facility] FOR NON EMERGENT MEDICAL NEEDS. \T\middot;\T\nbsp; [facility] CAN SEE PATIENTS SAME DAY FOR APTS IF PATIENT CALLS FIRST THING IN THE MORNING. E.D. VISIT COUNT (12 MO.) 1 [facility] 2 AIDEN Ibarra TOTAL 3 NOTE: Visits indicate total known visits. ED/UCC VISIT TRACKING (12 MO.) 11/09/2019 15:18 [facility] [place] TYPE: Emergency COMPLAINT: - ABNORMAL LABS 08/17/2019 12:51 [facility] TYPE: Emergency DIAGNOSES: - IV Medication - Acute posthemorrhagic anemia - Type 2 diabetes mellitus with hyperglycemia - Gastrointestinal hemorrhage, unspecified - Disorder of kidney and ureter, unspecified - Chronic kidney disease, unspecified 07/26/2019 10:10 [facility] TYPE: Emergency COMPLAINT: - R FOOT ULCER INPATIENT VISIT TRACKING (12 MO.) [facility] [facility] Surgery DIAGNOSES: - Peripheral vascular disease, unspecified - Angiodysplasia of stomach and duodenum without bleeding 08/17/2019 [facility] 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 - Anemia, unspecified - Contact with and (suspected) exposure to other viral communic - Type 2 diabetes mellitus with other specified complication - Hyperlipidemia, unspecified - Hyperlipidemia, unspecified - Nicotine dependence, cigarettes, uncomplicated - Hypertensive chronic kidney disease with stage 1 through stag - Severe sepsis without septic shock - Nicotine dependence, cigarettes, uncomplicated - Anemia, unspecified - Cellulitis of right lower limb - Acute kidney failure, unspecified - 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 - Acute kidney failure, unspecified - Other osteomyelitis, ankle and foot - Allergy status to other drugs, medicaments and biological sub - Contact with and (suspected) exposure to other viral communic - Hypertensive chronic kidney disease with stage 1 through stag - Sepsis, unspecified organism - Other osteomyelitis, ankle and foot - Type 2 diabetes mellitus with diabetic chronic kidney disease - Chronic kidney disease, stage 3 (moderate) - Type 2 diabetes mellitus with foot ulcer - Type 2 diabetes mellitus with other specified complication - 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
== END 2019-11-10 01:15 | disposition home or self-care (01) ==
LOC: ED 15:18
DX: K92.2 Gastrointestinal hemorrhage, unspecified (principal); D64.9 Anemia, unspecified; I12.9 Hypertensive chronic kidney disease with stage 1 through stage 4 chronic kidney disease, or unspecified chronic kidney disease; E11.22 Type 2 diabetes mellitus with diabetic chronic kidney disease; N18.3 Chronic kidney disease, stage 3 (moderate); E78.5 Hyperlipidemia, unspecified; Z87.891 Personal history of nicotine dependence; Z88.8 Allergy status to other drugs, medicaments and biological substances; Z79.899 Other long term (current) drug therapy
CPT/HCPCS: 36430; 80053; 85025; 85610; 85730; 86850; 86900; 86901; 86920; 99284-25; P9016

== ENCOUNTER 2020-01-11 14:26 | Inpatient (IN) | payer OTHER ==
[~2020-01-11] VITALS: Ht 162.6 cm; Wt 95.0 kg
--- OUTSIDE RECORDS SUMMARY | 2020-01-11 14:28 | XMS ---
PreManage Notification: MARYAM BACON Security Wildlife Ecologist Events No recent Security Events currently on file CRITERIA MET - [facility] - Has Care Guidelines CARE PROVIDERS ALFREDO PARIKH Physician Preboarder: Surgical 03/26/2018-Current PHONE: Unknown Name [facility] 07/27/2019-Current PHONE: [phone] [place] has no Care Guidelines for this patient. Care History Medical/Surgical 03/26/2018 [facility] - PATIENT IS A YELLOWHAWK ELIGIBLE, \T\middot;\T\nbsp; PLEASE REFER PATIENT TO [facility] FOR NON EMERGENT MEDICAL NEEDS. \T\middot;\T\nbsp; [facility] CAN SEE PATIENTS SAME DAY FOR APTS IF PATIENT CALLS FIRST THING IN THE MORNING. E.D. VISIT COUNT (12 MO.) 1 [facility] 3 A[facility] [place] TOTAL 4 NOTE: Visits indicate total known visits. 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: [facility] DIAGNOSES: - IV Medication - Acute posthemorrhagic anemia - Type 2 diabetes mellitus with hyperglycemia - Gastrointestinal hemorrhage, unspecified - Disorder of kidney and ureter, unspecified - Chronic kidney disease, unspecified 07/26/2019 10:10 [facility] [place] TYPE: Emergency COMPLAINT: - R FOOT ULCER INPATIENT VISIT TRACKING (12 MO.) 10/04/2019 10:00 [facility] TYPE: Vascular Surgery DIAGNOSES: - Peripheral vascular disease, unspecified - Angiodysplasia of stomach and duodenum without bleeding 08/17/2019 12:51 [facility] TYPE: Internal Medicine DIAGNOSES: - Acute posthemorrhagic anemia - Chronic kidney disease, unspecified - Gastrointestinal hemorrhage, unspecified - Disorder of kidney and ureter, unspecified - Type 2 diabetes mellitus with hyperglycemia - Other acute osteomyelitis, right ankle and foot - Personal history of other diseases of the digestive system 07/26/2019 13:08 [facility] TYPE: Medical Surgical COMPLAINT: - CELLULITIS DIAGNOSES: - Severe sepsis without septic shock - Type 2 diabetes mellitus with diabetic chronic kidney disease - Other [facility] (current[facility] drug therapy - Anemia, unspecified - Contact with and (suspected) exposure to other viral communicable diseases - Type 2 diabetes mellitus with other specified complication - Hyperlipidemia, unspecified - Hyperlipidemia, unspecified - Nicotine dependence, cigarettes, uncomplicated - Hypertensive chronic kidney disease with stage 1 through stage 4 chronic kidney disease, or unspecified chronic kidney disease - Severe sepsis without septic shock - Nicotine dependence, cigarettes, uncomplicated - Anemia, unspecified - Cellulitis of right lower limb - Acute kidney failure, unspecified - 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nspecified severity - Acute kidney failure, unspecified - Other osteomyelitis, ankle and foot - Allergy status to other drugs, medicaments and biological substances - Contact with and (suspected) exposure to other viral communicable diseases - Hypertensive chronic kidney disease with stage 1 through stage 4 chronic kidney disease, or unspecified chronic kidney disease - Sepsis, unspecified organism - Other osteomyelitis, ankle and foot - Type 2 diabetes mellitus with diabetic chronic kidney disease - Chronic kidney disease, stage 3 (moderate) - Type 2 diabetes mellitus with foot ulcer - Type 2 diabetes mellitus with other specified complication - 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nspecified severity - Type 2 diabetes mellitus with foot ulcer - Chronic kidney disease, stage 3 (moderate) - Other [facility] (current) drug therapy - Allergy status to other drugs, medicaments and biological substances - Cellulitis of right lower limb [email or web address]
[2020-01-11] MEDS ORDERED: DOXYCYCLINE MO100 M1 PO (14:37)
[2020-01-11] MEDS ORDERED: INSULIN LI100 UNIT/2 SUB-Q (14:38)
[2020-01-11] MEDS ORDERED: PANTOPRAZOLE SO40 MG PO (14:38)
[2020-01-11] MEDS ORDERED: ASPIRIN81 MG PO (18:24)
--- NOTE | 2020-01-11 18:40 | NUR ---
PT ARRIVED TO THE FLOOR AT THIS TIME. PT UP AND WALKING AROUDN THE ROOM STATES THAT HE BACK IS NUMB FROM LAYING ON THE ER GRAURNEY
--- NOTE | 2020-01-11 19:20 | NUR ---
PT LYING IN BED. SHIFT REPORT RECIEVED BY RN. CLEARED WHITE BOARD. PT PAIN 09/18, PAIN MEDS GIVEN PER REQUEST. CALL LIGHT IN REACH. NO FURTHER NEEDS.
--- NOTE | 2020-01-11 20:30 | NUR ---
PT LYING IN BED. SCHEDULED MEDS GIVEN. ASSESSMENT COMPLETE. VS STABLE. ACCU CHECK 353. 9 UNITS INSULIN ADMINISTERED. GAUZE ON WOUND ON R FOOT INTACT. NO SATURATION NOTED. CALL LIGHT IN REACH. NO FURTHER NOTICE.
--- NOTE | 2020-01-11 22:11 | NUR ---
PT LYING IN BED. EYES CLOSED. RR WNL WITH UNLABORED BREATHING. CALL LIGHT IN REACH.
--- NOTE | 2020-01-12 00:05 | NUR ---
PT LYING IN BED. EYES CLOSED. RR WNL WITH UNLABORED BREATHING. CALL LIGHT IN REACH.
--- NOTE | 2020-01-12 01:31 | NUR ---
PT LYING IN BED. EYES CLOSED. RR WNL WITH UNLABORED BREATHING. CALL LIGHTIN REACH.
--- NOTE | 2020-01-12 02:00 | NUR ---
PT LYING IN BED. EYES CLOSED. AWOKE TO VOICE. PT C/O OF PAIN 08/18. REQUESTED TYLENOL. VERABALIZED UNDERSTANDING ON PRN MED NOT DUE FOR ANOTHER HALF HOUR. VS STABLE. I AND O'S COMPLETE.
--- NOTE | 2020-01-12 03:16 | NUR ---
PT LYING IN BED. DENIES PAIN AND REFUSES PAIN MEDS. RR WNL WITH UNLABORED BREATHING. CALL LIGHT IN REACH. NO FURTHER CONCERNS.
--- NOTE | 2020-01-12 04:49 | NUR ---
PT LYING IN BED. EYES CLOSED. RR WNL WITH UNLABORED BREATHING. REPLACED CONTINUOUS IV BAG. NO CHANGES ON GAUZE DRESSING. CALL LIGHT IN REACH.
--- NOTE | 2020-01-12 05:47 | NUR ---
PT 1P STANDBY TO THE BATHROOM. SLEPT WELL THROUGH THE NIGHT. PRN TYLENOL ADMINISTERED. CONTINUOUS IV INTACT. ACCU CHECKS WNL. CALLS APPROPRIATLY. 60G CONSISTENT CARBOHYDRATE.
--- NOTE | 2020-01-12 06:14 | NUR ---
PT LYING IN BED. VS STABLE. GAUZE AND TAPE INTACT ON L FOOT DUE TO ULCER. GAUZE AND TAPE INTACT ON R FOOT. NO CHANGES ON DRESSING. RR WNL WITH UNLABORED BREATHING. CALL LIGHT IN REACH.
--- NOTE | 2020-01-12 08:20 | NUR ---
MORNING ASSESSMENT DONE, PATIENT IS SITTING UP TO EAT BREAKFAST, HAS BEEN BETWEENT THE BED AND CHAIR THIS MORNING, UP TO VOID. BLOOD GLUCOSE IS 284 AND PATIENT COVERED WITH 7 UNITS OF NOVOLOG. PATIENT PLANS TO HAVE A SHOWER TODAY, SOMETIME AFTER BREAKFAST AND WOULD LIKE TO CHANGE HER OWN FOOT DRESSING
--- NOTE | 2020-01-12 09:30 | NUR ---
MORNING MEDICATIONS GIVEN. BEHAVIORAL MODIFICATION ASSISTANT IN TO SEE PATIENT.
--- NOTE | 2020-01-12 10:32 | NUR ---
PATIENT INDEPENDENT IN ROOM. CALL LIGHT WITHIN REACH. NO FURTHER NEEDS AT THIS TIME
--- NOTE | 2020-01-12 11:01 | NUR ---
PATIENT SITTING UP AT BEDSIDE, ENDORSES BEING "BORED" PATIENT OFFERED CROSSWORD PUZZLE.
--- NOTE | 2020-01-12 12:28 | NUR ---
IV converted to SL per orders.
--- NOTE | 2020-01-12 13:19 | NUR ---
Spoke with July. states she lives alone, has 5 sisters who will assist with needs. She sees Dr. Cespedes for chronic wound care. Denies needs to go home.
[2020-01-12] MEDS ORDERED: CICLODAN6.6 ML TOP (14:52)
--- NOTE | 2020-01-12 15:10 | NUR ---
IV ANTIBIOTICS INFUSING FOR 30 MINUTES. PATIENT DENIES OTHER NEEDS.
[2020-01-12] MEDS ORDERED: LANTUS SOL100 UNIT/1 SUB-Q (15:21)
[2020-01-12] MEDS ORDERED: IODOSORB40 GM TOP (15:36)
--- NOTE | 2020-01-12 16:07 | NUR ---
MED REC COMPLETE
--- NOTE | 2020-01-12 16:49 | NUR ---
PATIENT DID OWN DRESSING CHANGE. LEFT INNER ASPECT FOOT ULCER CLEANED WITH WOUND CLEANSER, IODOFORM PASTE APPLIED, DRY GUAZE 2X2 AND THEN GUAZE WRAP. WOUND ON LEFT FOOT IS APPROXIMATE QUARTER SIZE, NO DRAINAGE NOTED. RIGHT OUTER ASPECT WOUND DID HAVE A SMALL AMOUNT OF YELLOW/RED TINGED DRAINAGE, PATIENT NOTED THAT REDNESS "WAS A LOT BETTER AND IT DOES NOT HURT LIKE LAST TIME DRESSING CHANGED."
--- NOTE | 2020-01-12 17:51 | NUR ---
DR. PAUL IN TO SEE PATIENT, REDRESS RIGHT FOOT. DR. PAUL INDICATED THAT THE REDNESS WAS REDUCED. PATIENT TOLERATED PROCEDURE WELL.
--- NOTE | 2020-01-12 19:36 | NUR ---
PATIENT RESTING QUIETLY WATCHING TV, NO NEEDS AT THIS TIME, GETTING REPORT FROM DAYSHIFT RN.
--- NOTE | 2020-01-12 20:11 | NUR ---
IN TO GET VITALS, I&Os IN, RN TO GET GLUCOSE READING, NO FURHTER NEEDS AT THIS TIME
--- NOTE | 2020-01-12 20:40 | NUR ---
PATIENT'S RIGHT HAND IV WENT BAD WHEN FLUSHED AND WAS PULLED, 22G NEW IV STARTED IN THE LEFT HAND WITH ONE ATTEMPT, PATIENT ALSO GOT SOME TYLENOL FOR A HEADACHE. CALL LIGHT IN REACH, AND NEW WATER GIVEN.
--- NOTE | 2020-01-12 20:50 | NUR ---
IV ABX COMPLETE, IV IS NOW SL. PT DENIES NEEDS. CALL LIGHT IS CLOSE.
--- NOTE | 2020-01-12 21:05 | NUR ---
PT'S IV PUMP WAS BEEPING, IT IS NOW INFUSING FINE. PT DENIES NEEDS. CALL LIGHT IS CLOSE.
--- NOTE | 2020-01-12 22:57 | NUR ---
PATIENT'S PAIN IS GONE AND SHE WAS JUST UP TO THE BATHROOM AND BACK TO BED INDEPENDENTLY. NO NEEDS AT THIS TIME. CALL LIGHT IN REACH.
--- NOTE | 2020-01-13 00:45 | NUR ---
PATIENT RESTING QUIETLY ON HER RIGHT SIDE, EYES CLOSED, RESPIRATIONS REGULAR AND EVEN, CALL LIGHT IN REACH.
--- NOTE | 2020-01-13 02:38 | NUR ---
PATIENT REMAINS RESTING ON HER RIGHT SIDE, WITH REGULAR EVEN RESPIRATIONS AND CALL LIGHT IN REACH. EYES CLOSED.
--- NOTE | 2020-01-13 06:22 | NUR ---
PATIENT HAS SLEPT WELL MOST OF THE NIGHT EXCEPT FOR WHEN STAFF INTERACTION HAS NEEDED TO OCCUR. PATIENT HAS BEEN GETTING TO THE RESTROOM AND IS FAIRLY INDEPENDENT AND PAIN HAS BEEN FAIRLY WELL CONTROLLED. PATIENT CURRENTLY SLEEPING. RESPIRATION REGULAR AND CALL LIGHT IN REACH.
--- NOTE | 2020-01-13 09:28 | NUR ---
MORNING ASSESSMENT DONE, PATIENT RESTING IN BED. PATIENT NOTED THAT DR. PAUL WOULD BE IN AROUND NOON, AND IS HOPEFUL TO GO HOME TODAY. PATIENT RATES FOOT PAIN 2/10, DENIES NEED FOR MEDICATIONS. IV ABX INFUSING AT THIS TIME.
--- NOTE | 2020-01-13 10:12 | NUR ---
PATIENT AWAKE IN BED. VITALS AND I&OS CHARTED. WILL BE BACK TO SET PATIENT UP FOR SHOWER. CALL LIGHT AND PERSONAL ITEMS IN REACH
--- NOTE | 2020-01-13 11:20 | NUR ---
PATIENT UP TO CHAIR, DENIES NEEDS AT THIS TIME. PATIENT IS AWAITING DR. PAUL, ENDORSES WANTING TO TAKE A SHOWER TODAY.
[2020-01-13] MEDS ORDERED: AUGMENTIN 875-1 EACH PO (11:59)
--- NOTE | 2020-01-13 12:32 | NUR ---
PT ALERT, ORIENTED AND SEEMS TO BE ENJOYING HER LUNCH. PT STATED SHE IS PLANNING ON DC TODAY, FEELING MUCH BETTER. HAD POSITIVE VISIT, GAVE G.POST AND BLESSING
--- NOTE | 2020-01-13 13:36 | NUR ---
PATIENT GIVEN DISCHARGE INSTRUCTIONS. 1400 ANTIBIOTICS INFUSING, THEN PLAN TO REMOVE IV.
--- NOTE | 2020-01-13 14:40 | NUR ---
CALL TO DR. PAUL THAT PATIENT WAS READY FOR DISCHARGE. HE WILL BE COMING TO SEE PATIENT SOON.
--- NOTE | 2020-01-13 15:24 | NUR ---
PATIENT GIVEN TWO TYLENOL IN ANTICIPATION OF FOOT DRESSING CHANGE SOON.
--- NOTE | 2020-01-13 15:59 | NUR ---
DR. PAUL IN TO SEE PATIENT, REDRESS FEET. OKAY FOR PATIENT TO DISCHARGE HOME.
== END 2020-01-13 16:00 | disposition home or self-care (01) | DRG 638 ==
LOC: ED 14:26 → MS 14:28
PROVIDERS: ADMIT Internal Medicine; ATTEND Internal Medicine
DX: E11.621 Type 2 diabetes mellitus with foot ulcer (principal); E87.1 Hypo-osmolality and hyponatremia; Z20.828 Contact with and (suspected) exposure to other viral communicable diseases; L97.519 Non-pressure chronic ulcer of other part of right foot with unspecified severity; N17.9 Acute kidney failure, unspecified; E11.65 Type 2 diabetes mellitus with hyperglycemia; E11.22 Type 2 diabetes mellitus with diabetic chronic kidney disease; E78.00 Pure hypercholesterolemia, unspecified; I12.9 Hypertensive chronic kidney disease with stage 1 through stage 4 chronic kidney disease, or unspecified chronic kidney disease; N18.30 Chronic kidney disease, stage 3 unspecified; Z87.891 Personal history of nicotine dependence; Z88.8 Allergy status to other drugs, medicaments and biological substances; Z79.82 Long term (current) use of aspirin; Z79.4 Long term (current) use of insulin; Z79.899 Other long term (current) drug therapy
CPT/HCPCS: 36415; 73630; 80048; 83605; 83735; 85025; 96365; 96376; 99284-25; C9803; G0378; J0295; J1815; J7030; U0003

== ENCOUNTER 2020-02-16 16:55 | Emergency (ER) | payer OTHER ==
[~2020-02-16] VITALS: Ht 162.6 cm; Wt 94.8 kg
[~2020-02-16 16:55] MED LIST changes: +ANTACID200 MG PO; +ASPIRIN81 MG PO; +CICLODAN6.6 ML TOP; +DOXYCYCLINE MO100 M1 PO; +ELIQUIS5 MG PO; +INSULIN LI100 UNIT/2 SUB-Q; +IODOSORB40 GM TOP; +PLAVIX75 MG PO
--- OUTSIDE RECORDS SUMMARY | 2020-02-16 16:58 | XMS ---
PreManage Notification: MARYAM BACON Security Bakery Machine Mechanic Events No recent Security Events currently on file CRITERIA MET - [facility] - Has Care Guidelines - [facility] - 2 Visits in 30 Days CARE PROVIDERS ALFREDO PARIKH Physician Mental Health Orderly: Surgical 03/26/2018-Current PHONE: Unknown Name [facility]/Center 07/27/2019-Current PHONE: [phone] Roma has no Care Guidelines for this patient. Care History Medical/Surgical 03/26/2018 [facility] - PATIENT IS A YELLOWHAWK ELIGIBLE, \T\middot;\T\nbsp; PLEASE REFER PATIENT TO [facility] FOR NON EMERGENT MEDICAL NEEDS. \T\middot;\T\nbsp; [facility] CAN SEE PATIENTS SAME DAY FOR APTS IF PATIENT CALLS FIRST THING IN THE MORNING. E.D. VISIT COUNT (12 MO.) 2 [facility] 5 A[facility] Ibarra TOTAL 7 NOTE: Visits indicate total known visits. ED/UCC VISIT TRACKING (12 MO.) 02/16/2020 16:56 [facility] [place] TYPE: Emergency COMPLAINT: - LOW BLOOD COUNT 01/26/2020 08:10 [facility] [place] TYPE: Emergency COMPLAINT: - SOB, WEAKNESS DIAGNOSES: - Weakness - Chronic kidney disease, stage 3 unspecified - Other long chain dyeing machine operator (current) drug therapy - Hypertensive chronic kidney disease with stage 1 through stage 4 chronic kidney disease, or unspecified chronic kidney disease - Allergy status to other drugs, medicaments and biological substances - Personal history of nicotine dependence - Allergy status to other drugs, medicaments and biological substances - Hyperlipidemia, unspecified - Gastrointestinal hemorrhage, unspecified - Chronic kidney disease, stage 3 unspecified - Type 2 diabetes mellitus with diabetic chronic kidney disease - Contact with and (suspected) exposure to other viral communicable diseases - USP (current) use of insulin - Hypovolemic shock - ocean transportation intermediary (current) use of aspirin - Hypovolemic shock [facility] DIAGNOSES: - Medical Problem (Minor) - Unspecified atherosclerosis 01/11/2020 14:27 [facility] TYPE: Emergency COMPLAINT: - R FOOT PAIN/DIABETIC PROBLEM 11/09/2019 15:18 [facility] [place] TYPE: Emergency COMPLAINT: - ABNORMAL LABS DIAGNOSES: - Anemia, unspecified - Hypertensive chronic kidney disease with stage 1 through stage 4 chronic kidney disease, or unspecified chronic kidney disease - Other mcfp (current) drug therapy - Chronic kidney disease, stage 3 (moderate) - Gastrointestinal hemorrhage, unspecified - Type 2 diabetes mellitus with diabetic chronic kidney disease - Hyperlipidemia, unspecified - Personal history of nicotine dependence - Allergy status to other drugs, medicaments and biological substances 08/17/2019 12:51 [facility] TYPE: Emergency DIAGNOSES: - IV Medication - Acute posthemorrhagic anemia - Type 2 diabetes mellitus with hyperglycemia - Gastrointestinal hemorrhage, unspecified - Disorder of kidney and ureter, unspecified - Chronic kidney disease, unspecified 07/26/2019 10:10 [facility] [place] TYPE: Emergency COMPLAINT: - R FOOT ULCER INPATIENT VISIT TRACKING (12 MO.) 01/26/2020 22:09 [facility] TYPE: Pulmonology DIAGNOSES: 0. GASTROINTESTINAL HEMORRHAGE 0. GI BLEED 01/18/2020 15:14 [facility] TYPE: Internal Medicine DIAGNOSES: - Type 2 diabetes mellitus with diabetic nephropathy - Peripheral vascular disease, unspecified - Unspecified atherosclerosis - Other specified complication of vascular prosthetic devices, implants and grafts, initial encounter - Chronic kidney disease, stage 3b - Other disorders resulting from impaired renal tubular function 01/12/2020 12:55 [facility] [place] TYPE: Medical Surgical COMPLAINT: - RIGHT DIABETIC FOOT WOUND, HYPONATREMIA DIAGNOSES: - Chronic kidney disease, stage 3 unspecified - USP (current) use of aspirin - Pure hypercholesterolemia, unspecified - Hypertensive chronic kidney disease with stage 1 through stage 4 chronic kidney disease, or unspecified chronic kidney disease - USP (current) use of insulin - Hypo-osmolality and hyponatremia - 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nspecified severity - Type 2 diabetes mellitus with diabetic chronic kidney disease - Contact with and (suspected) exposure to other viral communicable diseases - Allergy status to other drugs, medicaments and biological substances - Other long chain dyeing machine operator (current) drug therapy - Acute kidney failure, unspecified - Type 2 diabetes mellitus with hyperglycemia - Personal history of nicotine dependence - Type 2 diabetes mellitus with foot ulcer 10/04/2019 10:00 [facility] TYPE: Vascular Surgery DIAGNOSES: - Peripheral vascular disease, unspecified - Angiodysplasia of stomach and duodenum without bleeding 08/17/2019 12:51 [facility] TYPE: Internal Medicine DIAGNOSES: - Acute posthemorrhagic [...] with diabetic chronic kidney disease - Other long chain dyeing machine operator (current) drug therapy - Anemia, unspecified - [...] kidney disease, stage 3 (moderate) - Other long chain dyeing machine operator (current) drug therapy - Allergy status to other drugs, medicaments and biological substances - Cellulitis of right lower limb [email or web address]
== END 2020-02-16 23:20 | disposition home or self-care (01) ==
LOC: ED 16:55
DX: D64.9 Anemia, unspecified (principal); N18.9 Chronic kidney disease, unspecified; K31.819 Angiodysplasia of stomach and duodenum without bleeding; I12.9 Hypertensive chronic kidney disease with stage 1 through stage 4 chronic kidney disease, or unspecified chronic kidney disease; E78.5 Hyperlipidemia, unspecified; N18.30 Chronic kidney disease, stage 3 unspecified; Z88.8 Allergy status to other drugs, medicaments and biological substances; Z79.899 Other long term (current) drug therapy; Z79.4 Long term (current) use of insulin
CPT/HCPCS: 80053; 84484; 85025; 86850; 86900; 86901; 86920; 99284; J7030

== ENCOUNTER 2020-10-22 13:10 | Emergency (ER) | payer BC, OTHER ==
[~2020-10-22] VITALS: Ht 162.6 cm; Wt 101.0 kg
== END 2020-10-22 13:54 | disposition home or self-care (01) ==
LOC: ED 13:10
DX: E11.65 Type 2 diabetes mellitus with hyperglycemia (principal)

== ENCOUNTER 2020-11-16 09:55 | Inpatient (IN) | payer BC, OTHER ==
[~2020-11-16] VITALS: Ht 162.6 cm; Wt 97.4 kg
--- OUTSIDE RECORDS SUMMARY | 2020-11-16 09:58 | XMS ---
PreManage Notification: MARYAM BACON Security Musical Instrument Maker Events No recent Security Events currently on file CRITERIA MET - [facility] - 2 Visits in 30 Days CARE PROVIDERS ALFREDO PARIKH Physician Third Officer: Surgical 03/26/2018-Current PHONE: Unknown [facility] 07/27/2019-[facility] PHONE: [phone] Roma has no Care Guidelines for this patient. Care History Medical/Surgical 02/20/2020 [facility] - CHW CONTACTED -LANETTE BISWASEVP BUSINESS DEVELOPMENT AT [facility]- THEY ARE WORKING CLOSELY WITH PATIENT. - PATIENT HAD A REFERRAL TO A [facility] [address] [facility] BUT THEY DO NOT ACCEPT PATIENT INSURANCE. - AN URGENT REFERRAL WAS REQUESTED TO [facility]-CURRENTLY WAITING ON AUTHORIZATION. - PATIENT HAS A INTELLIGENCE AGENT - DR WIN- NEXT APT IS 05/22/20. LANETTE BISWASEVP BUSINESS DEVELOPMENT WILL DISCUSS WITH PROVIDER TO SEE IF AN EARLIER APT CAN BE MADE FOR FOLLOW UP. - DR WIN -INTELLIGENCE AGENT CONTACT INFO: - Address: [address] [place] [address], [place] [address] Phone: 03/26/2018 [facility] - PATIENT IS A YELLOWHAWK ELIGIBLE, \T\middot;\T\nbsp; PLEASE REFER PATIENT TO [facility] FOR NON EMERGENT MEDICAL NEEDS. \T\middot;\T\nbsp; [facility] CAN SEE PATIENTS SAME DAY FOR APTS IF PATIENT CALLS FIRST THING IN THE MORNING. E.D. VISIT COUNT (12 MO.) 1 [facility] [address] [facility] [address] [facility]. TOTAL 7 NOTE: Visits indicate total known visits. ED/C VISIT TRACKING (12 MO.) 11/16/2020 09:56 [facility] [place] TYPE: Emergency COMPLAINT: - LOW BLOOD LEVELS 10/22/2020 13:[address] [facility] [place] TYPE: Emergency COMPLAINT: - HIGH BLOOD SUGAR DIAGNOSES: - Type 2 diabetes mellitus with hyperglycemia 04/02/2020 [facility] DIAGNOSES: - Chronic kidney disease, unspecified - Essential (primary) hypertension - abd issues - Peripheral vascular disease, unspecified - Acute kidney failure, unspecified - rodent exterminator (current) use of insulin - Chronic kidney disease, stage 3 unspecified - rodent exterminator (current) use of anticoagulants - Gastrointestinal hemorrhage, unspecified - Melena - Dizziness - Type 2 diabetes mellitus without complications 02/16/2020 16:56 [facility] [place] TYPE: Emergency COMPLAINT: - ABNORMAL LAB RESULTS DIAGNOSES: - Allergy status to other drugs, medicaments and biological substances - Anemia, unspecified - Other intermediate frame tender (current) drug therapy - Hyperlipidemia, unspecified - Chronic kidney disease, stage 3 unspecified - Chronic kidney disease, unspecified - rodent exterminator (current) use of insulin - Angiodysplasia of stomach and duodenum without bleeding - Hypertensive chronic kidney disease with stage 1 through stage 4 chronic kidney disease, or unspecified chronic kidney disease 01/26/2020 08:10 [facility] TYPE: Emergency COMPLAINT: - SOB, WEAKNESS DIAGNOSES: - Gastrointestinal hemorrhage, unspecified - Hypovolemic shock - Syncope and collapse - Shortness of breath - correction (current) use of anticoagulants - correction (current) use of aspirin - Hypovolemic shock - correction (current) use of insulin - Contact with and (suspected) exposure to other viral communicable diseases - Type 2 diabetes mellitus with diabetic chronic kidney disease - Chronic kidney disease, stage 3 unspecified - Weakness - Hypotension, unspecified - Hyperlipidemia, unspecified - Allergy status to other drugs, medicaments and biological substances - Personal history of nicotine dependence - Allergy status to other drugs, medicaments and biological substances - Hypertensive chronic kidney disease with stage 1 through stage 4 chronic kidney disease, or unspecified chronic kidney disease - Other care home (current) drug therapy - Diarrhea, unspecified - Chronic kidney disease, stage 3 unspecified - Vomiting, unspecified 01/18/2020 [facility]: Emergency DIAGNOSES: - Medical Problem (Minor) - Unspecified atherosclerosis 01/11/2020 14:27 [facility] TYPE: Emergency COMPLAINT: - R FOOT PAIN/DIABETIC PROBLEM INPATIENT VISIT TRACKING (12 MO.) 04/02/2020 13:33 [facility] TYPE: Medical Surgical DIAGNOSES: - Acidosis - Chronic kidney disease, stage 3 unspecified - Hyperkalemia - correction (current) use of insulin - Gastrointestinal hemorrhage, unspecified - Anemia in chronic kidney disease - Peripheral vascular disease, unspecified - Acute posthemorrhagic anemia - Chronic kidney disease, stage 4 (severe) - Obesity, unspecified - Type 2 diabetes mellitus without complications - correction (current) use of anticoagulants - Chronic kidney disease, unspecified - Essential (primary) hypertension - Angiodysplasia of stomach and duodenum without bleeding - Melena - Acute kidney failure, unspecified 01/26/2020 22:09 [facility]: Pulmonology DIAGNOSES: 0. GASTROINTESTINAL HEMORRHAGE 0. GI BLEED [facility]/18/2020 [facility] TYPE: Internal Medicine DIAGNOSES: - Type 2 diabetes mellitus with diabetic nephropathy - Peripheral vascular disease, unspecified - Unspecified atherosclerosis - Chronic kidney disease, stage 3b - Other specified complication of vascular prosthetic devices, implants and grafts, initial encounter - Chronic kidney disease, stage 3b - Other disorders resulting from impaired renal tubular function 01/12/2020 12:55 [facility] TYPE: Medical Surgical COMPLAINT: - RIGHT DIABETIC FOOT WOUND, HYPONATREMIA DIAGNOSES: - Contact with and (suspected) exposure to other viral communicable diseases - Allergy status to other drugs, medicaments and biological substances - Chronic kidney disease, stage 3 unspecified - Type 2 diabetes mellitus with foot ulcer - Personal history of nicotine dependence - Type 2 diabetes mellitus with hyperglycemia - Acute kidney failure, unspecified - Other intermediate frame tender (current) drug therapy - Allergy status to other drugs, medicaments and biological substances - Chronic kidney disease, stage 3 unspecified - Type 2 diabetes mellitus with diabetic chronic kidney disease - 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nspecified severity - Hypo-osmolality and hyponatremia - correction (current) use of insulin - Hypertensive chronic kidney disease with stage 1 through stage 4 chronic kidney disease, or unspecified chronic kidney disease - Pure hypercholesterolemia, unspecified - correction (current) use of aspirin [email or web address]
--- NOTE | 2020-11-16 22:20 | NUR ---
in to assist pt to the toilet, sba with iv pole, pt tells this obstetrician and gynaecologist that bloodsugar was rising, observed pt personal glucometer, rn informed, pt requesting refilled ice water, will provide, no further needs at this time
--- NOTE | 2020-11-16 22:52 | NUR ---
ASSESSMENT COMPLETED. GCS 15,A&O X4. LUNGS CLEAR, HEART TONES REGULAR. ABD SOFT, NONTERNDER, PT STATES NORMAL, BOWEL TONES ACTIVE. CMS INTACT. PT HAD A LEFT BIG TOE AMPUTATED ON 10/24/20 THAT HAS STERI STRIPS IN PLACE, WNL. ICE WATER PROVIDED. CBG 293, 7 UNITIS LISPRO PROVIDED. PT HAS HER OWN GLUCOSE MONITORING DEVICE. NO OTHER NEEDS AT THIS TIME. CALL LIGHT IN REACH.
--- NOTE | 2020-11-17 | NUR ---
PT RESTING IN BED, WATCHING TV. NO NEEDS AT THIS TIME. CALL LIGHT IN REACH.
--- NOTE | 2020-11-17 01:20 | NUR ---
VS AND I&O COMPLETED. PT UP TO BR AND BACK TO BED. NO OTHER NEEDS. CALL LIGHT IN REACH.
--- NOTE | 2020-11-17 03:30 | NUR ---
PT RESTING IN BED. CPOX 95% ON RA. CALL LIGHT IN REACH.
--- NOTE | 2020-11-17 04:20 | NUR ---
ASSESSMENT COMPLETED. LABS DRAWN AND SENT. PT DENIES ANY MORE STOOL TONIGHT AND NAUSEA. SPO2 96% ON RA. IV WNL. NO OTHER NEEDS. CALL LIGHT IN REACH.
--- NOTE | 2020-11-17 06:43 | NUR ---
PT RESTING IN BED. SPO2 95% ON RA. CALL LIGHT IN REACH.
[2020-11-17] MEDS ORDERED: AMLODIPINE BESYL5 MG PO (07:13)
--- NOTE | 2020-11-17 08:00 | NUR ---
Resting in bed, awakens easily with voice. Alert and oriented and understands need to be NPO for now.
--- NOTE | 2020-11-17 10:00 | NUR ---
resting in bed, independent in room. no requests or complaints currently. NPO.
--- NOTE | 2020-11-17 12:00 | NUR ---
Relaxing in room with TV on. call light and table in reach.
--- NOTE | 2020-11-17 14:15 | NUR ---
No requests. Resting in bed and chair. moving independently.
--- NOTE | 2020-11-17 16:00 | NUR ---
blood draw completed by this RN. From left top of hand, tolerated well.
--- NOTE | 2020-11-17 17:47 | NUR ---
[facility] CALLED TO REQUEST RECORDS. RECORDS TO BE SENT.
--- NOTE | 2020-11-17 19:30 | NUR ---
SHIFT REPORT RECEIVED FROM CANDELARIO BISWAS. PT REPORTS HER DEVICE SAYS HER CBG IS 252. 5 UNITS LISPRO PROVIDED. NO OTHER NEEDS AT THIS TIME. CALL LIGHT IN REACH.
--- NOTE | 2020-11-17 21:38 | NUR ---
PT HAD BM, LARGE IN SIZE, SOFT, FORMED, BLACK IN COLOR. RN NOTIFIED.
--- NOTE | 2020-11-17 21:39 | NUR ---
ASSESSMENT, VS AND I&O COMPLETED. GCS 15, A&O X4. LUNGS CLEAR IN UPPER LOBES, FINE CRACKLES IN LOWER LOBES. ABD SOFT, NONTENDER, PT STATES NORMAL, BOWEL TONES ACTIVE. CMS INTACT. RIGHT BIG TOE SURGERY SITE WNL. PT HAS OCCASSIONAL COUGH. SCHEDULED MED PROVIDED. PT REPORTS A SEMIFORMED BM, DARK GREEN IN COLOR. DENIES NAUSEA AND PAIN. NO OTHER NEEDS AT THIS TIME. CALL LIGHT IN REACH.
--- NOTE | 2020-11-18 | NUR ---
PT RESTING IN BED, RR EVEN, UNLABORED. SPO2 97% ON RA. HR NSR @ 81. CALL LIGHT IN REACH.
--- NOTE | 2020-11-18 02:00 | NUR ---
PT RESTING IN BED, EYES CLOSED. RR EVEN, UNLABORED.SPO2 96% ON RA. HR NSR @ 87. CALL LIGHT IN REACH.
--- NOTE | 2020-11-18 03:47 | NUR ---
TELEMETRY BATTERY REPLACED. ASSESSMENT COMPLETED. PT DENIES PAIN, NAUSEA AND ANY STOOL SINCE LAST ASSESSMENT. LUNGS CLEAR. IV WNL. NO OTHER NEEDS. SPO2 95% ON RA. CALL LIGHT IN REACH.
--- NOTE | 2020-11-18 06:57 | NUR ---
PT UP TO BR, SBA. CLOUDY URINE.
--- NOTE | 2020-11-18 07:20 | NUR ---
Report received from medtronics technician RN. Breakfast ordered.
--- NOTE | 2020-11-18 07:41 | NUR ---
left foot big toe amputation, site clean and dry with steri strips in place.
--- NOTE | 2020-11-18 10:46 | NUR ---
COMPLETED A SHOWER. IV WAS WRAPPED TO KEEP DRY. INDEPENDENT IN ROOM. CALLS FOR HELP WHEN NEEDED.
--- NOTE | 2020-11-18 13:01 | CONS ---
[facility] [address], [place] [address] Signed DATE OF CONSULTATION: 11/17/2020 CONSULTING PHYSICIAN: Kathie Pang MD. REQUESTING PHYSICIAN: Riddhi Najera MD PROBLEM: Recurrent anemia, known gastric vascular ectasia and prior upper GI bleeding. HISTORY OF PRESENT ILLNESS: This obese 50-year-old Georgian woman is well known to me from the past having undergone upper endoscopy and colonoscopy in 2019. She was found at upper endoscopy previously by me to have bleeding antral erosions on the lesser curvature, which were secured with hemoclips. 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 She has undergone endoscopic surveillance there, last known to be in March of this past year. She presented to the emergency room yesterday with complaints of melena or at least dark stool as well as some amount of fatigue. She was transfused with 2 units of packed red cells in the emergency room and admission to the hospital by Dr. Hays and Dr. Najera was organized and COVID test was found to be positive. The patient is considered to have minimal if any symptoms of COVID disease, specifically no cough or shortness of breath or respiratory distress in any way. She has been afebrile. Since her admission, she has had at least one melanotic stool, but no hematemesis and no persisting bleeding and her hematocrit has stayed reasonably stable since transfusion. Her admission hematocrit was 21.1, subsequently 28.2 after 2 units packed red cells and this morning 26.6. She has been hemodynamically stable with a blood pressure of 128 to 134 systolic and a pulse of 93. The patient denies any hematemesis. Has no abdominal pain. No epigastric pain. The patient has been on aspirin for history of a thrombus of some sort in the past. 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 CURRENT MEDICATIONS: Include pantoprazole intravenously administered, insulin, Zofran, albuterol nebulizer as well as Tylenol. The patient says she is feeling reasonably well and does not feel weak in any way Electronically Signed By: KATHIE PANG MD 11/18/20 1301 PATIENT NAME: MARYAM BACON CONSULTATION DATE OF : 70 REPORT #: [id number] PHYSICIAN: KATHIE PANG MD PCP: PRANEETH XIE MD REPORT IS CONFIDENTIAL AND NOT TO BE RELEASED WITHOUT AUTHORIZATION [facility] [address] [place], [place] [address] Signed compromise particularly since her transfusion. PHYSICAL EXAMINATION: GENERAL: Obese Georgian woman who is lying in bed watching TV. Precautions for COVID were employed by myself in her evaluation. NECK: Trachea is midline. CHEST: Shows normal respiratory excursion. She has no cough. She has no respiratory distress. HEART: Regular. ABDOMEN: Obese, but soft. There is no tenderness or mass. No adenopathy. EXTREMITIES: Show no clubbing, cyanosis, or edema. LAB STUDIES: Today show a white count of 7.5, hematocrit 26.6, platelets 305,000. Coag studies show an INR of 0.95, PTT is 23. Chem profile shows a creatinine of 1.75 (decreased from yesterday of 1.87). Liver enzymes were not obtained. Serology does show positive COVID by PCR. ASSESSMENT: The patient is admitted with anemia, coincidentally found to be COVID positive but without typical symptoms of COVID disease. Initially, the admission was related to the anemia and a likely source considered to be her very well established and serially evaluated gastric vascular ectasia. She has been on one aspirin a day related to prior venous thrombotic phenomenon. She is on appropriate PPI medication intravenously administered at this time. She is under isolation for COVID disease though she does not seem to have any of the typical symptoms of it. I have reviewed with Dr. Najera the advisability of upper endoscopy in this situation. Given her apparently newly diagnosed COVID-19 disease, we will hold off on upper endoscopy unless she has persistent drift of her hematocrit, overt persistent bleeding or other similar problem for which therapeutic endoscopic evaluation would be necessary specifically to control bleeding. The patient understands this and we will continue to monitor her lab studies and her clinical course. MD KASIA Miramontes/BABAR Electronically Signed By: KATHIE PANG MD 11/18/20 1301 PATIENT NAME: MARYAM BACON CONSULTATION DATE OF : 70 REPORT #: [id number] PHYSICIAN: KATHIE PANG MD PCP: PRANEETH XIE MD REPORT IS CONFIDENTIAL AND NOT TO BE RELEASED WITHOUT AUTHORIZATION [address] [address] Signed /[id number] cc: MD Jay Grider, MD Rocky Hays, [facility] Copies: RIDDHI NAJERA,JAY HAYS,ROCKY JAIMES MD ~ Electronically Signed By: KATHIE PANG MD 11/18/20 1301 PATIENT NAME: MARYAM BACON CONSULTATION DATE OF : 70 REPORT #: [id number] PHYSICIAN: KATHIE PANG MD PCP: PRANEETH XIE MD REPORT IS CONFIDENTIAL AND NOT TO BE RELEASED WITHOUT AUTHORIZATION
--- NOTE | 2020-11-18 15:47 | NUR ---
up in chair, looking at menu to order dinner. watching tv. no requests.
--- NOTE | 2020-11-18 16:45 | NUR ---
no requests. waiting for dinner. Carafate given.
--- NOTE | 2020-11-18 18:34 | NUR ---
INDEPENDENT IN ROOM, NO REQUESTS OR COMPLAINTS.
--- NOTE | 2020-11-18 19:00 | NUR ---
SHIFT REPORT RECEIVED FROM CANDELARIO BISWAS. PT RESTING IN BED, NO NEEDS AT THIS TIME. CALL LIGHT IN REACH.
--- NOTE | 2020-11-18 20:00 | NUR ---
ASSESSMENT, VS AND I&O COMPLETED. PT DENIES PAIN, NAUSEA AND LIGHTHEADEDNESS. GCS 15, A&O X4. LUNGS CLEAR, HEART TONES REGULAR. SPO2 98%, RA. HR NSR @ 82. ABD SOFT, NONTENDER, BOWEL TONES ACTIVE. IV WNL, CDI, FLUSHED WELL. CMS INTACT. RIGHT BIG TOE SURGERY SITE WNL. ICE WATER AND JELLO PROVIDED. SCHEDULED MEDS PROVIDED. NO OTHER NEEDS. CALL LIGHT IN REACH.
--- NOTE | 2020-11-18 23:20 | NUR ---
IV FLUIDS PROVIDED. NO OTHER NEEDS. CALL LIGHT IN REACH.
--- NOTE | 2020-11-19 | NUR ---
PT NPO AT THIS TIME.
--- NOTE | 2020-11-19 02:30 | NUR ---
PT RESTING IN BED. IV FLUIDS INFUSING PER ORDER. CALL LIGHT IN REACH.
--- NOTE | 2020-11-19 03:58 | NUR ---
ASSESSMENT COMPLETED. PT DENIES PAIN AND NAUSEA. IV FLUIDS INFUSING PER ORDER. IV WNL. PT DENIES ANY BMs SO FAR TONIGHT. NO NEEDS. CALL LIGHT IN REACH.
--- NOTE | 2020-11-19 05:25 | NUR ---
VS AND I&O COMPLETED. IV WNL, IV FLUIDS INFUSING PER ORDER. NO OTHER NEEDS. CALL LIGHT IN REACH.
--- NOTE | 2020-11-19 06:52 | NUR ---
PT RESTING IN BED. RR EVEN, UNLABORED. IV FLUIDS INFUSING PER ORDER. CALL LIGHT IN REACH.
--- NOTE | 2020-11-19 07:39 | NUR ---
Patient sleeping in bed, respirations even and non labored. Patient has no notable distress. Personal supplies and call light within reach.
--- NOTE | 2020-11-19 08:43 | NUR ---
PATIENT IND. IN ROOM. PATIENT IN BED RESTING AT THIS TIME. VITALS AND I&O'S CHARTED. CALL LIGHT IN REACH. NO FURTHER NEEDS AT THIS TIME.
--- NOTE | 2020-11-19 10:56 | NUR ---
Patient alert and oriented x3, respirations even and non labored. Patient has no distress at this time. Patient has no needs. Personal supplies and call light within reach.
--- NOTE | 2020-11-19 13:44 | NUR ---
PATIENT SITTING IN CHAIR WATCHING TV. VITALS AND I&O'S CHARTED. CALL LIGHT IN REACH. NO FURTHER NEEDS AT THIS TIME.
[2020-11-19] MEDS ORDERED: SUCRALFATE1 GM PO (15:36)
[2020-11-19] MEDS ORDERED: PANTOPRAZOLE SO40 MG PO (15:36)
== END 2020-11-19 16:30 | disposition home or self-care (01) | DRG 377 ==
LOC: ED 09:55 → MS 09:57
PROVIDERS: ADMIT Student in an Organized Health Care Education/Training Program; ATTEND Student in an Organized Health Care Education/Training Program
PROC: 30233N1 Transfusion of Nonautologous Red Blood Cells into Peripheral Vein, Percutaneous Approach (ICD-10-PCS; principal; 2020-11-16)
PROC: 8E0ZXY6 Isolation (ICD-10-PCS; 2020-11-18)
DX: K55.21 Angiodysplasia of colon with hemorrhage (principal); U07.1 COVID-19; D62 Acute posthemorrhagic anemia; I12.9 Hypertensive chronic kidney disease with stage 1 through stage 4 chronic kidney disease, or unspecified chronic kidney disease; N18.30 Chronic kidney disease, stage 3 unspecified; E78.5 Hyperlipidemia, unspecified; E11.22 Type 2 diabetes mellitus with diabetic chronic kidney disease; E11.51 Type 2 diabetes mellitus with diabetic peripheral angiopathy without gangrene; Z79.01 Long term (current) use of anticoagulants; Z86.718 Personal history of other venous thrombosis and embolism; Z98.890 Other specified postprocedural states; Z88.8 Allergy status to other drugs, medicaments and biological substances; Z79.899 Other long term (current) drug therapy; Z79.4 Long term (current) use of insulin
CPT/HCPCS: 36430; 80048; 80053; 83735; 85018; 85025; 85610; 85730; 86850; 86900; 86901; 86922; 96374; 96376; 99285-25; C9113; C9803; G0378; J1815; J7121; U0003

== ENCOUNTER 2021-05-22 05:40 | Day surgery (SDC) | payer BC, OTHER ==
[~2021-05-22] VITALS: Ht 162.6 cm; Wt 104.5 kg
--- NOTE | ~2021-05-22 | OR ---
[facility] [address] [place], [place] [address] Draft DATE OF OPERATION: 05/22/2021 SURGEON: Krishna Cespedes DPM PREOPERATIVE DIAGNOSIS: Osteomyelitis, left foot. POSTOPERATIVE DIAGNOSIS: Osteomyelitis, left foot. MANAGER REGIONAL: Eloisa Lugo DPM ANESTHESIA: IV general with local block, left foot. HEMMER CHAINSTITCH: Noy Peraza CRNA SPECIMEN: To pathology bone and soft tissue of toes 2-4 as well as bone of metatarsals 2-4. The metatarsals were each sent individual specimens to better identify any remaining osteomyelitis noted within the specimen. DESCRIPTION OF PROCEDURE: The patient was brought to the operating room and placed on the table in the supine position. Anesthesia Department administered IV sedation, after which a local block was given to the left foot using a total of 10 mL of 1:1 mixture, 2% lidocaine plain, and 0.5% ropivacaine plain. The left leg and foot were then prepped and draped in the usual sterile manner and an Esmarch was used for hemostasis. Attention was initially directed to the toes, left foot. An elliptical incision was made at the base of the toes transversely and ellipsing toes 2-4. The hallux is all ready missing, this was amputated previously. The toes 2-4 were ellipsed. At this time, the ellipse was full thickness reflecting soft tissue slightly dorsally and plantarly and disarticulating the toes at the MPJ. The three toes were sent together as a specimen. The surgical site was then inspected with mildly necrotic tissue noted, particularly around the second metatarsal head. Soft tissues were reflected dorsally and plantarly to expose the distal portion of the metatarsals. A preoperative MRI had shown osteomyelitis to the second, third, and fourth metatarsals. The majority of the PATIENT NAME: MARYAM BACON OPERATIVE REPORT DATE OF : 70 REPORT #: [id number] PHYSICIAN: KRISHNA CESPEDES DPM PCP: PRANEETH XIE MD REPORT IS CONFIDENTIAL AND NOT TO BE RELEASED WITHOUT AUTHORIZATION [facility] [address] [place], [place] [address] Draft bone changes were noted within the distal second metatarsal. The head of the second metatarsal was loose, this was fractured and easily removed. The distal 2 cm approximately of the second metatarsal showed discoloration particularly to the superior surface and about 2 cm of the metatarsal was resected at this time. The bone cut noted to be slightly soft and the area of bone cut appears slightly discolored, therefore an additional 5 mm of the second metatarsal was then resected. This appeared to have solid bone with good color. The proximal margin of the second metatarsal was inked to designate this in the specimen. Attention then directed to the third metatarsal, the level of bone resection was chosen in an effort to match the level of the second metatarsal and about 2 cm-2.5 cm of the metatarsals were resected and this appeared to have very hard and healthy bone at that level. Attention then directed to the fourth metatarsal, where again the length was attempted to be matched to the adjacent metatarsal and about 2-2.5 cm of the metatarsal resected and the metatarsal then sent for pathology as well. Then, using intraoperative fluoroscopy, the length of the metatarsals was checked, this showed that because of the additional bone resection, the third and fourth metatarsals were slightly longer than second. A small amount of additional bone resection then performed in an effort to gain a better metatarsal parabola. The fifth digit and fifth metatarsal had no osteomyelitis/bone changes noted on the MRI, therefore this was left intact, planning to later revise this to the length of the other metatarsals in an effort to avoid a pressure spot and immediately creating a new ulcer site. The surgical site was then inspected and exposed areas of tendon and fascia type tissue as well as any necrotic tissue, then debrided from the surgical site. The site irrigated with copious amounts of normal saline. Then, attention directed to the plantar ulcer areas, which were under the second and third metatarsal heads. The ulcer areas were excised full thickness through the plantar skin flap and then wound closure was started. The plantar ulcer site and the distal ellipse were all closed with 3-0 nylon monofilament suture. Prior to closure, antibiotic beads were placed within the wound site using calcium sulfate beads with vancomycin as the antibiotic. Dressings then applied consisting of Adaptic, Betadine-soaked gauze, dry gauze, ABD pad, Flexicon, and Coban for mild compression. Prior to placement of the dressings, a postoperative injection was given using 10 mL of 0.5% ropivacaine plain. INTRAOPERATIVE COMPLICATIONS: None. ESTIMATED BLOOD LOSS: Less than 10 mL. PATIENT NAME: MARYAM BACON OPERATIVE REPORT DATE OF : 70 REPORT #: [id number] PHYSICIAN: KRISHNA CESPEDES DPM PCP: PRANEETH XIE MD REPORT IS CONFIDENTIAL AND NOT TO BE RELEASED WITHOUT AUTHORIZATION [address] [address] Draft CHANA Lazo/BABAR /[id number] Copies: ~ PATIENT NAME: MARYAM BACON OPERATIVE REPORT DATE OF : 70 REPORT #: [id number] PHYSICIAN: KRISHNA CESPEDES DPM PCP: PARNEETH XIE MD REPORT IS CONFIDENTIAL AND NOT TO BE RELEASED WITHOUT AUTHORIZATION
[~2021-05-22 05:40] MED LIST changes: +AMOXICILLIN500 MG; +NOVOLOG FL100 UNIT/1; +OZEMPIC1 MG/0.71 SQ; +SUCRALFATE1 GM PO
--- NOTE | 2021-05-22 08:30 | NUR ---
PT ALERT, ORIENTED AND VISIT PROGRESSED, PT BECAME VISIBLY EMOTIONAL. GAVE COMFORT, ENCOURAGEMENT AND HAD PRAYER WITH PT. SHE THANKED ME FOR BEING WITH HER, WILL FOLLOW NEEDED
--- NOTE | 2021-05-22 09:45 | NUR ---
05/22/21 0945 Mariana Duarte 0844 PT ARRIVED IN PACU WIDE AWAKE C/O L FOOT TINGLING AT 7/10. ANESTHESIA AWARE. 0850 3VIEW XRAY OF L FOOT DONE. 0854 FENTANYL 50MCG GIVEN IVP FOR 7/10 L FOOT PAIN. 0855 TYLENOL 1GM GIVEN IV. 0905 PAIN DOWN TO 4/10. 0915 DC INSTRUCTIONS GIVEN. ALL QUESTIONS ANSWERED. 0925 LEFT VIA W/C AFTER RN PUT PT'S OWN POST OP SHOE ON.
--- NOTE | 2021-05-22 14:54 | EKG ---
[facility] [address] [facility] [place] [address] Signed Sinus tachycardia Otherwise normal ECG When compared with ECG of 26-JAN-2020 09:08, Questionable change in QRS axis Nonspecific T wave abnormality no longer evident in Inferior leads Nonspecific T wave abnormality no longer evident in Lateral leads Confirmed by ROCKY HAYS MD ([id number]) on 05/22/2021 2:54:21 PM Electronically Signed By: ROCKY HAYS MD 05/22/21 1454 PATIENT NAME: MARYAM BACON Electrocardiogram DATE OF : 70 PHYSICIAN: ROCKY HAYS MD REPORT #: [id number] REPORT IS CONFIDENTIAL AND NOT TO BE RELEASED WITHOUT AUTHORIZATION
--- NOTE | 2021-05-24 15:08 | PATH ---
[facility] [address] [place], [place] [address] Signed SPECIMEN(S): A TOES 2-4 SPECIMEN(S): B 2ND METATARSAL SPECIMEN(S): C 3RD METATARSAL SPECIMEN(S): D 4TH METATARSAL SPECIMEN SOURCE: A. TOES 2-4 B. 2ND METATARSAL C. 3RD METATARSAL D. 4TH METATARSAL CLINICAL HISTORY: Left foot osteomyelitis, chronic ulcer, cellulitis. Debridement of wound. FINAL PATHOLOGIC DIAGNOSIS: A. Toes #2-4, disarticulation amputation: - Osteonecrosis of the fourth toe. - Deep dermal cystic space of the third toe with associated acute inflammation. - Viable skin and soft tissue resection margins with foci of deep dermal/subcutaneous tissue acute and chronic inflammation. B. Second metatarsal, excision: - Acute osteomyelitis of the proximal margin. C. Third metatarsal, excision: - Viable bone with reactive changes and features of chronic osteomyelitis. - Negative for acute osteomyelitis at the proximal margin. D. Fourth metatarsal, excision: - Viable bone with reactive changes. - Negative for acute osteomyelitis at the proximal margin. NAL:cml:C2NR MICROSCOPIC EXAMINATION: Histologic sections of all submitted blocks are examined by light microscopy. These findings, together with the gross examination, support the pathologic diagnosis. GROSS DESCRIPTION: Four specimens are received in four containers, labeled "LA." A. The specimen, labeled "LA, A," and designated on the requisition "toes 2-4, left foot," is received in formalin and consists of three toes disarticulated at the metatarsal phalangeal joint and PATIENT NAME: MARYAM BACON PATHOLOGY DATE OF : 70 REPORT #: [id number] PHYSICIAN: RENNY PATHOLOGY PCP: PRANEETH XIE MD REPORT IS CONFIDENTIAL AND NOT TO BE RELEASED WITHOUT AUTHORIZATION [facility] [address] [place], [place] [address] Signed connected with skin and soft tissue (5.2 x 5.0 x 2.5 cm). The skin soft tissue margin is inked blue. The skin is pink to brown-curry. Each toe has an attached curry toenail, and no areas of ulceration are grossly identified. The skin and soft tissue margins appear grossly viable. Sectioning of the toes reveals slightly hemorrhagic bone. Postal Delivery Officer sections are submitted as follows: Cassette Summary: (A1) Skin soft tissue margins, shaved (margin is face up) (A2) Cross section of 2nd (smaller piece) and 3rd toe (decalcified in Decal Stat) (A3) Cross section of 4th toe (decalcified in Decal Stat) B. The specimen, labeled "LA, B," and designated on the requisition "2nd metatarsal, inked side is most proximal," is received in formalin and consists of three pieces of bone (0.7, 1.8, and 2.0 cm in greatest dimension). The smallest piece has an inked margin, and the largest piece shows a smooth articular surface. The inked margin is shaved and submitted in cassette (B1) following decalcification in Decal Stat (margin is face up in cassette). C. The specimen, labeled "LA, C," and designated on the requisition "3rd metatarsal, inked side is most proximal," is received in formalin and consists of a segment of bone (3.0 x 1.6 x 1.1 cm) with one smooth cut surface and opposite articulating surface, and separate cross section of bone (1.3 x 1.0 x 0.7 cm) with one inked surface. The inked margin is shaved and submitted in cassette (C1) following decalcification in Decal Stat (margin is face up in cassette). D. The specimen, labeled "LA, D," and designated on the requisition "4th metatarsal, inked side is most proximal," is received in formalin and consists of a segment of bone (2.3 x 1.7 x 1.5 cm) with one smooth cut surface and opposite curry, smooth articulating surface, and separate cross section of bone with inked margin. A cross section is submitted in cassette (D1) following decalcification in Decal Stat (margin is face up in cassette). AC (under the direct supervision of a pathologist) The Gross Description was prepared using a voice recognition system. The report was reviewed for accuracy; however, sound-alike word errors, addition and/or deletions may occur. If there is any question about this report, please contact Client Services. PERFORMING LABORATORY: The technical component was performed by [employer], [facility] Quinn Riggins, PATIENT NAME: MARYAM BACON PATHOLOGY DATE OF : 70 REPORT #: [id number] PHYSICIAN: RENNY PATHOLOGY PCP: PRANEETH XIE MD REPORT IS CONFIDENTIAL AND NOT TO BE RELEASED WITHOUT AUTHORIZATION [address] [address] Signed JESSICA Guido [phone] (CLIA# [id number]). Professional interpretation was performed by [employer], [facility], [address] [place] [address] (CLIA# [id number]). Diagnostician: Tomasa Webster MD Pathologist Electronically Signed 05/24/2021 Copies: ~ PATIENT NAME: MARYAM BACON PATHOLOGY DATE OF : 70 REPORT #: [id number] PHYSICIAN: RENNY PATHOLOGY PCP: PRANEETH XIE MD REPORT IS CONFIDENTIAL AND NOT TO BE RELEASED WITHOUT AUTHORIZATION
== END 2021-05-22 09:25 | disposition home or self-care (01) ==
LOC: DS 05:40
PROVIDERS: ATTEND Podiatrist Foot Surgery
PROC: 0Y6N0ZC Detachment at Left Foot, Partial 3rd Ray, Open Approach (ICD-10-PCS; 2021-05-22)
PROC: 0Y6N0ZD Detachment at Left Foot, Partial 4th Ray, Open Approach (ICD-10-PCS; 2021-05-22)
PROC: 0Y6N0ZB Detachment at Left Foot, Partial 2nd Ray, Open Approach (ICD-10-PCS; principal; 2021-05-22 07:30)
DX: E11.69 Type 2 diabetes mellitus with other specified complication (principal); M86.9 Osteomyelitis, unspecified; M86.172 Other acute osteomyelitis, left ankle and foot; L03.116 Cellulitis of left lower limb; E11.42 Type 2 diabetes mellitus with diabetic polyneuropathy; L97.524 Non-pressure chronic ulcer of other part of left foot with necrosis of bone; M87.9 Osteonecrosis, unspecified; Z20.822 Contact with and (suspected) exposure to COVID-19; Z88.1 Allergy status to other antibiotic agents
CPT/HCPCS: 36415; 73620; 73630; 85025; 93005; 93010; C1713; J0131; J0295; J1100; J2001; J2250; J2704; J2795; J3010; J3370; J7121

== ENCOUNTER 2021-05-29 07:13 | Day surgery (SDC) | payer BC, OTHER ==
[~2021-05-29] VITALS: Ht 162.6 cm; Wt 104.5 kg
--- NOTE | ~2021-05-29 | OR ---
[facility] [address] [facility] [place] [address] Draft DATE OF OPERATION: 05/29/2021 SURGEON: Krishna Cespedes DPM PREOPERATIVE DIAGNOSES: 1. Osteomyelitis, left foot. 2. Foot deformity, left foot. POSTOPERATIVE DIAGNOSES: 1. Osteomyelitis, left foot. 2. Foot deformity, left foot. DRAWER FITTER SURGEON: Eloisa Lugo DPM ANESTHESIA: IV general with local block, left foot. CROP QUANTITATIVE GENETICIST: Krishna Clemons. SPECIMEN TO PATHOLOGY: Bone and soft tissue of left fifth digit amputation and bone of left fifth metatarsal. PROCEDURES: 1. Amputation, left fifth toe. 2. Debridement, left fifth metatarsal. DESCRIPTION OF PROCEDURE: The patient was brought to the operating room and placed on the table in the supine position. Anesthesia Department administered IV sedation, after which a local block was given to the left foot using a total of 10 mL of 1:1 mixture of 2% lidocaine plain and 0.5% ropivacaine plain. The left leg and foot were then prepped and draped in the usual sterile manner and an Esmarch was used for hemostasis. Attention was initially directed to the left fifth digit, where a racquet style incision was made circumferentially around the base of the toe with the handle of the racquet extending dorsally onto the foot over the fifth metatarsal. The incision was initially full-thickness through the soft tissues deep to bone. The left fifth digit then disarticulated at the MTPJ and left fifth digit excised in toto. The incision was PATIENT NAME: MARYAM BACON OPERATIVE REPORT DATE OF : 70 REPORT #: [id number] PHYSICIAN: KRISHNA CESPEDES DPM PCP: PRANEETH XIE MD REPORT IS CONFIDENTIAL AND NOT TO BE RELEASED WITHOUT AUTHORIZATION [address] [address] Draft extended proximally onto the fifth metatarsal exposing the distal half of the fifth metatarsal. Then, using intraoperative C-arm images, the level of osteotomy was determined by matching the metatarsal parabola of the shortened existing metatarsals. With the osteotomy performed, intraoperative C-arm images again performed to confirm the appropriate length of the fifth metatarsal, and with this deemed adequate, the surgical site was then inspected for any remaining abnormal tissue. The surgical site was then irrigated and closed. Closure performed using 4-0 nylon monofilament suture. INTRAOPERATIVE COMPLICATIONS: None. ESTIMATED BLOOD LOSS: Less than 5 mL. Krishna Cespedes DPM DFB/MODL /[id number] Copies: ~ PATIENT NAME: MARYAM BACON OPERATIVE REPORT DATE OF : 70 REPORT #: [id number] PHYSICIAN: KRISHNA CESPEDES DPM PCP: PRANEETH XIE MD REPORT IS CONFIDENTIAL AND NOT TO BE RELEASED WITHOUT AUTHORIZATION
--- NOTE | 2021-05-29 11:17 | NUR ---
05/29/21 1117 Mattie Mackay 1110 PATIENT ARRIVES TO PACU, RESTING WITH EYES CLOSED. RESPONDS APPROPRIATELY TO VERBAL STIMULI. DENIES PAIN OR NAUSEA. RESP EVEN AND UNLABORED, MASK AT 6 LITERS 1117 PATIENT RESTING WITH EYES CLOSED. DENIES NEEDS. RESP EVEN AND UNLABORED, OXYGEN MASK OFF.
--- NOTE | 2021-06-03 15:58 | PATH ---
[facility] [address] [place], [place] [address] Signed SPECIMEN(S): A LEFT 5TH TOE SPECIMEN SOURCE: A. LEFT 5TH TOE CLINICAL HISTORY: Osteomyelitis. Debridement of soft tissue/bone, amputation fifth toe. FINAL PATHOLOGIC DIAGNOSIS: 5th toe, left, amputation: - Toe, bone and cartilage without significant histopathologic changes. - Surgical resection margins are viable. COMMENT: There is no evidence of acute or chronic osteomyelitis present in these sections. KRYSTLEK:neftaly:C2NR MICROSCOPIC EXAMINATION: Histologic sections of all submitted blocks are examined by light microscopy. These findings, together with the gross examination, support the pathologic diagnosis. GROSS DESCRIPTION: The specimen, labeled "Gamaliel GALVAN," and designated on the requisition "left fifth toe," is received in formalin and consists of a toe and an additional segment of bone. The toe is amputated at the joint, 4.2 cm long, 2.0 cm wide, and has a curry-white to brown, slightly thickened nail. The toe is approximately 60% covered with curry wrinkled skin. The soft tissue margin is inked blue. A discrete mass/lesion is not grossly identified. The bone throughout the toe is curry and firm and without a discrete mass/lesion. The additional bone segment is 3.7 cm long, 1.2-1.4 cm wide, and has attached yellow to curry fibromembranous and soft tissue up to 0.7 cm wide. The bone has been amputated at the joint at one end and has a smooth surgical resection margin at the opposing end. The joint end is inked red and the smooth surgical resection margin is inked green. The bone is cross-sectioned to reveal curry, grossly unremarkable bone throughout, without a discrete mass/lesion. Obstetrics Gyn Physician sections are submitted as follows: PATIENT NAME: MARYAM BACON PATHOLOGY DATE OF : 70 REPORT #: [id number] PHYSICIAN: RENNY PATHOLOGY PCP: PRANEETH XIE MD REPORT IS CONFIDENTIAL AND NOT TO BE RELEASED WITHOUT AUTHORIZATION [facility] [address] [place], [place] [address] Signed (A1) - section of distal toe after decalcification with decal stat (A2-A3) - cross-section of additional bone segment after decal decalcified AI (under the direct supervision of a pathologist) The Gross Description was prepared using a voice recognition system. The report was reviewed for accuracy; however, sound-alike word errors, addition and/or deletions may occur. If there is any question about this report, please contact Client Services. PERFORMING LABORATORY: The technical component was performed by [employer], [address] [place] [id number] (CLIA# [id number]). The professional interpretation was performed by [facility], [facility], [address] [place] [address] (CLIA#: [id number]). Diagnostician: Tucker Peña MD Pathologist Electronically Signed 06/03/2021 Copies: ~ PATIENT NAME: MARYAM BACON PATHOLOGY DATE OF : 70 REPORT #: [id number] PHYSICIAN: RENNY COREA PCP: PRANEETH XIE MD REPORT IS CONFIDENTIAL AND NOT TO BE RELEASED WITHOUT AUTHORIZATION
== END 2021-05-29 12:00 | disposition home or self-care (01) ==
LOC: OPS 07:13 → DS 07:15 → OPS 09:40 → DS 12:00 → OPS 12:00
PROVIDERS: ATTEND Podiatrist Foot Surgery
PROC: 0Y6Y0Z0 Detachment at Left 5th Toe, Complete, Open Approach (ICD-10-PCS; principal; 2021-05-29 09:40)
DX: E11.69 Type 2 diabetes mellitus with other specified complication (principal); M86.172 Other acute osteomyelitis, left ankle and foot; M21.6X2 Other acquired deformities of left foot; Z88.1 Allergy status to other antibiotic agents
CPT/HCPCS: 73620; 73630; 84703; A9270; J0295; J1100; J2001; J2370; J2405; J2704; J2795; J3010; J3370; J7121

== ENCOUNTER 2021-07-31 05:48 | Day surgery (SDC) | payer BC, OTHER ==
[~2021-07-31] VITALS: Ht 162.6 cm; Wt 100.0 kg
[~2021-07-31 05:48] MED LIST changes: +BACTRIM DS TAB1 EACH PO; +BASAGLAR K100 UNIT/1 SUB-Q; +HYDROCODON-ACE1 EA10 PO; +OZEMPIC1 MG/0.71 SUB-Q; +PROTONIX40 MG PO; +ULTRAM50 MG PO
--- NOTE | 2021-07-31 08:29 | NUR ---
07/31/21 0829 Tanvi Johnson 0820-PATIENT ARRIVED TO PACU ON 6L MASK NONAROUSABLE RR EVEN. SR. IVF INFUSING WITH VANCOMYCIN. GLUCOSE 203. DRESSING TO LEFT FOOT CDI. YOAN PEDAL PULSE DUE TO DRESSING 0828-XRAY AT BEDSIDE. PATIENT AROUSING OPENING EYES. 6L MASK RR EVEN 100%
--- NOTE | 2021-08-01 07:16 | OR ---
[facility] [address] [place], [place] [address] Signed DATE OF OPERATION: 07/31/2021 SURGEON: Krishna Cespedes DPM PREOPERATIVE DIAGNOSIS: Diabetic foot ulcer with osteomyelitis, left foot. POSTOPERATIVE DIAGNOSIS: Diabetic foot ulcer with osteomyelitis, left foot. ANESTHESIA: IV general with local block, left foot. MORTGAGE LOAN COUNSELOR: Maikol. SPECIMEN TO PATHOLOGY: Bone of left 5th metatarsal. PROCEDURE: Debridement of soft tissue and bone including ulcer site and bone of left 5th metatarsal. DESCRIPTION OF PROCEDURE: The patient was brought to the operating room and placed on the table in the supine position. Anesthesia Department administered IV sedation after which a local block was given to the left foot using a total of 8 mL of 1:1 mixture of 2% lidocaine plain and 0.5% ropivacaine plain. The left leg and foot were then prepped and draped in the usual sterile manner and an Esmarch was used for hemostasis. Attention was initially directed to the remaining left 5th metatarsal. The patient has already had a TMA and a new ulcer has occurred under the distal aspect of the remaining 5th metatarsal. An incision was made lateral left 5th metatarsal. Soft tissues were reflected superiorly and inferiorly to expose bone of the 5th metatarsal and intraoperative fluoroscopy used to identify proper level of bone resection at the junction of the cortical and metaphyseal bone. Bone cut made at this site showed very soft bone, additional resection made removing about 3 mm of additional bone and this appeared to produce more solid bone at the osteotomy site. Electronically Signed By: KRISHNA CESPEDES DPM 08/01/21 0716 PATIENT NAME: MARYAM BACON OPERATIVE REPORT DATE OF : 70 REPORT #: [id number] PHYSICIAN: KRISHNA CESPEDES DPM PCP: PRANEETH XIE MD REPORT IS CONFIDENTIAL AND NOT TO BE RELEASED WITHOUT AUTHORIZATION [facility] [address] [place] [address] Signed The bone which was removed was soft and crumbly, consistent with bone infection as expected. Once the excised bone was removed, a small amount of necrotic tissue to the surgical site was resected as well. The surgical site was then irrigated using the Irrisept irrigation and an inspection was then made for any remaining necrotic tissue or remaining bone fragments and none was found. At this time, the plantar ulcer site was excised and closed using 3-0 nylon monofilament suture. Calcium sulfate antibiotic beads were then placed into the surgical site. The antibiotic beads contain vancomycin. The surgical site was then closed using 3-0 nylon monofilament suture. Dressings applied using Adaptic, Betadine-soaked gauze, dry gauze, ABD pad, Flexicon, and Coban for mild compression. Intraoperative. INTRAOPERATIVE COMPLICATIONS: None. ESTIMATED BLOOD LOSS: Less than 10 mL. CHANA Lazo/PHONGL /[id number] Copies: ~ Electronically Signed By: KRISHNA CESPEDES DPM 08/01/21 0716 PATIENT NAME: MARYAM BACON OPERATIVE REPORT DATE OF : 70 REPORT #: [id number] PHYSICIAN: KRISHNA CESPEDES DPM PCP: PRANEETH XIE MD REPORT IS CONFIDENTIAL AND NOT TO BE RELEASED WITHOUT AUTHORIZATION
--- NOTE | 2021-08-05 15:37 | PATH ---
[facility] [address] [place], [place] [address] Signed SPECIMEN(S): A LEFT FOOT 5TH METATARSAL BONE SPECIMEN SOURCE: A. LEFT FOOT 5TH METATARSAL BONE CLINICAL HISTORY: Diabetic ulcer, ball of left foot. FINAL PATHOLOGIC DIAGNOSIS: Fifth metatarsal bone, left foot: - Bone with acute and chronic osteomyelitis. TWK:em:C2NR MICROSCOPIC EXAMINATION: Histologic sections of all submitted blocks are examined by light microscopy. These findings, together with the gross examination, support the pathologic diagnosis. GROSS DESCRIPTION: The specimen, labeled "LA, 5th metatarsal bone, left foot," is received in formalin and consists of several pieces of unoriented, irregular shaped bone fragments with attached fibromembranous tissue. They aggregate measure 3.9 x 3.1 x 0.7 cm. Sectioning through the specimen is grossly unremarkable. Specimen is left for decalcification in Decal Stat prior to processing. Director Of Planning sections are submitted in cassette (A1). JS (under the direct supervision of a pathologist) The Gross Description was prepared using a voice recognition system. The report was reviewed for accuracy; however, sound-alike word errors, addition and/or deletions may occur. If there is any question about this report, please contact Client Services. PERFORMING LABORATORY: The technical component was performed by [facility], [address] [place] [id number] (CLIA# [id number]). The professional interpretation was performed by [facility], [facility], [address] [place] [address] (CLIA#: [id number]). Diagnostician: Tucker Peña MD Pathologist Electronically Signed 08/05/2021 PATIENT NAME: MARYAM BACON PATHOLOGY DATE OF : 70 REPORT #: [id number] PHYSICIAN: [facility] PCP: PRANEETH XIE MD REPORT IS CONFIDENTIAL AND NOT TO BE RELEASED WITHOUT AUTHORIZATION [address] [address] Signed Copies: ~ PATIENT NAME: MARYAM BACON PATHOLOGY DATE OF : 70 REPORT #: [id number] PHYSICIAN: [facility] PCP: PRANEETH XIE MD REPORT IS CONFIDENTIAL AND NOT TO BE RELEASED WITHOUT AUTHORIZATION
== END 2021-07-31 09:05 | disposition home or self-care (01) ==
LOC: OPS 05:48 → DS 05:48 → OPS 06:45
PROVIDERS: ATTEND Podiatrist Foot Surgery
PROC: 0QBP0ZZ Excision of Left Metatarsal, Open Approach (ICD-10-PCS; principal; 2021-07-31 06:45)
DX: E11.69 Type 2 diabetes mellitus with other specified complication (principal); M86.172 Other acute osteomyelitis, left ankle and foot; M86.672 Other chronic osteomyelitis, left ankle and foot; E11.621 Type 2 diabetes mellitus with foot ulcer; L97.524 Non-pressure chronic ulcer of other part of left foot with necrosis of bone; E11.42 Type 2 diabetes mellitus with diabetic polyneuropathy; L03.116 Cellulitis of left lower limb; E66.9 Obesity, unspecified; Z88.1 Allergy status to other antibiotic agents; Z88.8 Allergy status to other drugs, medicaments and biological substances; Z68.37 Body mass index [BMI] 37.0-37.9, adult; Z89.422 Acquired absence of other left toe(s); Z79.4 Long term (current) use of insulin
CPT/HCPCS: 73620; 73630; C1713; J2001; J2704; J2795; J3010; J3370; J7060; J7121

== ENCOUNTER 2022-08-27 05:42 | Day surgery (SDC) | payer BC, OTHER ==
[2022-08-20 16:24] VITALS: BP 134/78
[~2022-08-27] VITALS: Ht 162.6 cm; Wt 99.9 kg
--- NOTE | ~2022-08-27 | OR ---
[facility] [address] [place], [place] [address] Draft DATE OF OPERATION: 08/27/2022 SURGEON: Krishna Cespedes DPM PREOPERATIVE DIAGNOSES: Diabetic ulcer and osteomyelitis, right 2nd toe. POSTOPERATIVE DIAGNOSES: Diabetic ulcer and osteomyelitis, right 2nd toe. PROCEDURE: Amputation right 2nd toe. DIRECTOR HRIS SURGEON: Eloisa Lugo DPM. ANESTHESIA: IV general with local block, right foot. CONFERENCE INTERPRETER: Krishna Clemons. SPECIMEN TO PATHOLOGY: Soft tissue and bone, right 2nd digit. DESCRIPTION OF PROCEDURE: The patient was brought to the operating room and placed on the table in the supine position. Anesthesia Department administered IV sedation after which a local block was given to the right foot using a total of 7 mL of 1:1 mixture 2% lidocaine plain and 0.5% ropivacaine plain. The right leg and foot was then prepped and draped in the usual sterile manner and an Esmarch was used for hemostasis. Attention was initially directed to the right 2nd digit where a racquet style incision was made around the base of the toe with the handle of the racquet extending up to the MTPJ level dorsally. The incision was full thickness deep to bone. Soft tissues then reflected proximally to expose the base of the proximal phalanx which was then disarticulated at the MTPJ and the entire right 2nd toe sent for pathology. The remaining soft tissue and bone of the 2nd metatarsal head appear to be healthy, without necrosis or sign of purulence noted. A small amount of additional debridement PATIENT NAME: MARYAM BACON OPERATIVE REPORT DATE OF : 70 REPORT #: [id number] PHYSICIAN: KRISHNA CESPEDES DPM PCP: PRANEETH XIE MD REPORT IS CONFIDENTIAL AND NOT TO BE RELEASED WITHOUT AUTHORIZATION [address] [address] Draft performed to remove exposed tendon at this site, the surgical site then irrigated with copious amounts of normal saline, then calcium sulfate antibiotic beads placed into the wound site. The antibiotic beads contain vancomycin. Surgical site was then closed using 4-0 nylon monofilament suture. ESTIMATED BLOOD LOSS: Less than 5 mL. INTRAOPERATIVE COMPLICATIONS: None. MATERIALS: Calcium sulfate antibiotic beads containing vancomycin placed into the surgical site. CHANA Lazo/MODL /[id number] Copies: ~ PATIENT NAME: MARYAM BACON OPERATIVE REPORT DATE OF : 70 REPORT #: [id number] PHYSICIAN: KRISHNA CESPEDES DPM PCP: PRANEETH XIE MD REPORT IS CONFIDENTIAL AND NOT TO BE RELEASED WITHOUT AUTHORIZATION
[~2022-08-27 05:42] MED LIST changes: +ADULT LOW DOSE81 MG PO
[2022-08-27 06:09] VITALS: BP 133/67
--- NOTE | 2022-08-27 08:37 | NUR ---
08/27/22 0837 Amanda Becker 0817 PT TO PACU ALERT AND AWAKE ON O2 6L VIA MASK, FOGGING NOTED IN MASK. SWITCH O2 OT NC ON 3L PT WAS NOT TOLERATING MASK.
[2022-08-27 09:00] VITALS: BP 141/71
--- NOTE | 2022-08-27 13:21 | NUR ---
PT WAS JUST LEAVING ROOM FOR PROCEDURE WHEN I ARRIVED. PRAYED SILENTLY BUT DID NOT DELAY TRANSPORT.
--- NOTE | 2022-08-29 | EKG ---
[facility] [address] [facility] [place] [address] Signed Normal sinus rhythm Normal ECG When compared with ECG of 22-MAY-2021 04:51, No significant change was found Confirmed by Rachel Arevalo MD () on 08/29/2022 12:00:04 AM Electronically Signed By: RACHEL AREVALO MD 08/29/22 0000 PATIENT NAME: MARYAM BACON Electrocardiogram DATE OF : 70 PHYSICIAN: RACHEL AREVALO MD REPORT #: [id number] REPORT IS CONFIDENTIAL AND NOT TO BE RELEASED WITHOUT AUTHORIZATION
--- NOTE | 2022-08-29 12:35 | PATH ---
[facility] [address] [place], [place] [address] Signed SPECIMEN(S): A RIGHT SECOND TOE SPECIMEN SOURCE: A. RIGHT SECOND TOE CLINICAL HISTORY: Osteomyelitis. FINAL PATHOLOGIC DIAGNOSIS: Right second toe: - Ulcerated toe with focal acute soft tissue inflammation and focal necrosis. - Focal acute and chronic osteomyelitis. - Soft tissue margins are free of significant inflammation. JVR:irina:C2NR MICROSCOPIC EXAMINATION: Histologic sections of all submitted blocks are examined by light microscopy. These findings, together with the gross examination, support the pathologic diagnosis. GROSS DESCRIPTION: The specimen, labeled and designated "Jann, right second toe," is received in formalin and consists of a single disarticulated L-shaped toe measuring 4.5 x 1.8 x 2.2 cm. A curry-brown toenail is noted measuring 0.9 x 0.8 cm. The skin surface is predominantly curry wrinkled and smooth with a white to brown centrally ulcerated nodule at the proximal phalanx measuring 1.5 x 1.5 cm, 0.4 cm from the closest soft tissue resection margin. The soft tissue margin is inked blue. 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 The report was reviewed for accuracy; however, sound-alike word errors, addition and/or deletions may occur. If there is any question about this report, please contact Client Services. PERFORMING LABORATORY: PATIENT NAME: MARYAM BACON PATHOLOGY DATE OF : 70 REPORT #: [id number] PHYSICIAN: [facility] PCP: PRANEETH XIE MD REPORT IS CONFIDENTIAL AND NOT TO BE RELEASED WITHOUT AUTHORIZATION [facility] [address] [place], [place] [address] Signed Technical component was performed by [facility], [address] [place] [address] (CLIA# [id number]). Professional interpretation was performed by [facility] - [facility], [address] [place] [id number] (CLIA#: [id number]). Diagnostician: Joaquin Haider MD Pathologist Electronically Signed 08/29/2022 Copies: ~ PATIENT NAME: MARYAM BACON PATHOLOGY DATE OF : 70 REPORT #: [id number] PHYSICIAN: RENNY COREA PCP: PRANEETH XIE MD REPORT IS CONFIDENTIAL AND NOT TO BE RELEASED WITHOUT AUTHORIZATION
== END 2022-08-27 09:12 | disposition home or self-care (01) ==
LOC: DS 05:42 → OPS 05:42 → DS 07:30 → OPS 07:30
PROVIDERS: ATTEND Podiatrist Foot Surgery
PROC: 0Y6R0Z0 Detachment at Right 2nd Toe, Complete, Open Approach (ICD-10-PCS; principal; 2022-08-27 07:00)
DX: E11.69 Type 2 diabetes mellitus with other specified complication (principal); M86.171 Other acute osteomyelitis, right ankle and foot; E11.621 Type 2 diabetes mellitus with foot ulcer; L97.514 Non-pressure chronic ulcer of other part of right foot with necrosis of bone
CPT/HCPCS: 73630; 93005; 93010; C1713; J1100; J2405; J2704; J2795; J3010; J3370; J3490; J7121